=== PATIENT | female | born 1955 | race Caucasian/White ===

== ENCOUNTER 2017-12-24 19:54 | Emergency (ER) | payer OTHER ==
--- OUTSIDE RECORDS SUMMARY | 2017-12-24 19:57 | XMS REPORT | Clinical Summary ---
:1955 Author Organization [facility] Address [address] [place] [address] Phone Care Team Providers Name Role Phone Unavailable Primary Care Provider Unavailable Allergies No Known Allergies Current Medications Prescription Sig. Disp. Refills Start Date End Date Status zolpidem (AMBIEN) 10 mg tablet 08/15/2016 Active citalopram (CELEXA) 20 MG tablet 08/17/2016 Active furosemide (LASIX) 20 MG tablet 08/17/2016 Active levothyroxine (SYNTHROID, LEVOTHROID) 08/17/2016 Active 150 MCG tablet metoprolol (LOPRESSOR) 50 MG tablet 08/17/2016 Active valsartan-hydrochlorothiazide 09/30/2016 Active (DIOVAN-HCT) 320-25 mg per tablet potassium citrate (UROCIT-K) 10 mEq 08/17/2016 Active (1,080 mg) SR tablet HEMATINIC/FOLIC ACID 324 mg (106 mg 09/16/2016 Active iron)-1 mg Tab Active Problems Problem Noted Date Leukocytosis 10/31/2016 Type 2 diabetes mellitus without complication, without long-term current 10/31 use of insulin (HCC) Diverticulitis 10/30/2016 Encounters Date Type Specialty Care Team Description 10/20/2017 Emergency Emergency Medicine Candida Bosch DO after 12/23/2016 Social History Tobacco Use Types Packs/Day Years Used Date Never Smoker Sex Assigned at Date Recorded Not on file Last Filed Vital Signs Vital Sign Reading Time Taken Blood Pressure 113/59 10/20/2017 12:24 PM [employer] Pulse 75 10/20/2017 12:24 PM [employer] Temperature 37.2 C (99 F) 10/20/2017 12:24 PM [employer] Respiratory Rate 18 10/20/2017 12:24 PM [employer] Oxygen Saturation 97% 10/20/2017 12:24 PM [employer]IAN Inhaled Oxygen Concentration - - Weight 139.7 kg (308 lb) 10/20/2017 12:24 PM [employer] Height 175.3 cm (5' 9") 10/20/2017 12:24 PM [employer] Body Mass Index 45.48 10/20/2017 12:24 PM [employer]CH[employer] Plan of Treatment Not on file Results Not on fileafter 12/23/2016
--- OUTSIDE RECORDS SUMMARY | 2017-12-24 19:57 | XMS REPORT | Clinical Summary ---
:1955 Author Organization [facility] Address [address] [place] [address] Care Team Providers Name Role Phone Arthur Fong MD Primary Care Provider Allergies No Known Allergies Current Medications Prescription Sig. Disp. Refills Start End Status Date Date albuterol (PROAIR Inhale 2 puffs Active HFA,PROVENTIL every 6 (six) HFA,VENTOLIN HFA) 90 hours as needed mcg/actuation inhaler for wheezing. ALPRAZolam (XANAX) 1 Take 1 mg by Active MG tablet mouth 3 (three) times a day as needed for anxiety. citalopram (CeleXA) 20 Take 20 mg by Active MG tablet mouth every morning. diclofenac-misoprostol Take 1 tablet by Active (ARTHROTEC 75) 75-200 mouth 2 (two) mg-mcg EC tablet times a day as needed (arthritis pain). ferrous fumarate-folic Take 1 tablet by Active acid (HEMATINIC/FOLIC mouth nightly. ACID) 324 mg (106 mg iron)-1 mg tablet per tablet rivaroxaban (XARELTO) Take 20 mg by Active 20 mg tablet mouth nightly. zolpidem (AMBIEN) 10 Take 10 mg by Active mg tablet mouth nightly as needed for sleep. enoxaparin (LOVENOX) Inject 0.8 ml 2.4 mL 0 10/24/19 Active 120 mg/0.8 mL syringe subcutanouesly 18 twice daily. Take after stopping xarelto 2 days prior to surgery. Hold the night before surgery. umeclidinium-vilantero Inhale 1 puff 30 each 0 10/24/19 Active l (ANORO ELLIPTA) daily for 30 18 62.5-25 mcg/actuation days. blister with device metoprolol tartrate Take 50 mg by Active (LOPRESSOR) 50 mg mouth 2 (two) tablet times a day. LYRICA 75 mg capsule Take 75 mg by 11/25/19 Active mouth 2 (two) 18 times a day. fluocinonide 0.1 % Apply 1 11/28/19 Active cream application 18 topically 2 (two) times a day. (apply sparingly) pantoprazole Take 1 tablet (40 30 tablet 0 12/06/19 Active (PROTONIX) 40 MG EC mg total) by 18 018 tablet mouth daily for 30 days. HYDROcodone-acetaminop Take 1 tablet by 12/06/19 Active hen (NORCO) 5-325 mg mouth every 6 18 018 per tablet (six) hours as needed for moderate pain for up to 30 days. Max Daily Amount: 4 tablets colchicine 0.6 mg Take 1 tablet 60 tablet 0 12/17/19 Active tablet (0.6 mg total) by 18 018 mouth 2 (two) times a day for 30 days. hydroCHLOROthiazide Take 1 capsule 30 capsule 0 12/18/19 Active (MICROZIDE) 12.5 mg (12.5 mg total) 18 018 capsule by mouth daily for 30 days. levothyroxine Take 175 mcg by Active (SYNTHROID, LEVOXYL) mouth every 175 mcg tablet morning. furosemide (LASIX) 20 Take 20 mg by Discontinued mg tablet mouth every 018 morning. HYDROcodone-acetaminop Take 1 tablet by Discontinued hen (NORCO) 10-325 mg mouth every 4 018 per tablet (four) hours as needed for moderate pain. levothyroxine Take 150 mcg by Discontinued (SYNTHROID, LEVOXYL) mouth every 018 150 mcg tablet morning. meloxicam (MOBIC) 15 Take 15 mg by Discontinued mg tablet mouth daily. 018 valsartan-hydrochlorot Take 1 tablet by Discontinued hiazide (DIOVAN HCT) mouth every 018 320-25 mg per tablet morning. levoFLOXacin Take 1 tablet 10 tablet 0 10/25/19 (LEVAQUIN) 500 MG (500 mg total) by 18 018 tablet mouth daily for 10 days. metroNIDAZOLE (FLAGYL) Take 1 tablet 30 tablet 0 10/24/19 500 MG tablet (500 mg total) by 18 018 mouth 3 (three) times a day for 10 days. levothyroxine Take 1 tablet 30 tablet 0 10/24/19 (SYNTHROID, LEVOXYL) (175 mcg total) 18 018 175 mcg tablet by mouth every morning for 30 days. levoFLOXacin Take 1 tablet 10 tablet 0 11/19/19 (LEVAQUIN) 500 MG (500 mg total) by 18 018 tablet mouth daily for 10 days. levothyroxine Take 175 mcg by Discontinued (SYNTHROID, LEVOXYL) mouth every 018 175 mcg tablet morning. metFORMIN (GLUCOPHAGE) Take 500 mg by Discontinued 500 mg tablet mouth every 018 morning. traMADol (ULTRAM) 50 Take 50 mg by Discontinued mg tablet mouth every 6 018 (six) hours as needed for moderate pain. levoFLOXacin Take 1 tablet 5 tablet 0 12/06/19 Discontinued (LEVAQUIN) 500 MG (500 mg total) by 18 018 tablet mouth daily for 5 days. SUPREP BOWEL PREP KIT Take 2 Bottles 354 mL 0 12/09/19 Discontinued 17.5-3.13-1.6 gram (354 mL total) by 18 018 recon soln mouth once for 1 dose. Take as directed by physician predniSONE (DELTASONE) Taper, take 1 tab 5 tablet 0 12/17/19 20 mg tablet (20mg) x 3 days, 18 018 then 0.5 tab (10mg) x 3 days, then stop Active Problems Problem Noted Date Morbid obesity with BMI of 50.0-59.9, adult 12/12/2017 Acute renal failure 12/03/2017 Colovesical fistula 10/20/2017 Encounters Date Type Specialty Care Team Description 12/23/2017 Orders Only General Surgery Mateo Quinones MD 12/18/2017 Patient Outreach Zach Armstrong, PharmD 12/15/2017 Procedure Pass General Surgery 12/09/2017 Hospital Encounter General Surgery Mateo Quinones Colovesical - MD Alok fistula (Primary 12/16/2017 Dx) 12/08/2017 Orders Only General Surgery Mateo Quinones MD 12/03/2017 [facility], unspecified acute renal failure type (Primary Dx); - Medicine MD Savita Urinary tract infection with hematuria, site unspecified; 12/05/2017 George Jacob Colovesical fistula MD Smitha Mazariegos Thuyen T., MD 12/03/2017 Telephone General Surgery Shreyl Marcos COLLECTIONS AND ARCHIVES DIRECTOR-C 12/02/2017 Orders Only General Surgery Mateo Quinones MD 12/01/2017 Pre-Admit Testing Pre-Admission Testing Mateo Quinones Preop examination (Primary Dx); Appointment MD Alok Morbid obesity; Liver disease 11/18/2017 Orders Only General Surgery Sheryl Marcos COLLECTIONS AND ARCHIVES DIRECTOR-C 11/13/2017 Office Visit General Surgery Mateo Quinones Rectovaginal fistula ( Primary Dx); MD Alok Morbid obesity with BMI of 45.0-49.9, adult 11/13/2017 Orders Only General Surgery RandallguruSheryl logan COLLECTIONS AND ARCHIVES DIRECTOR-C 11/13/2017 Orders Only General Surgery RandallguruSheryl logan NP-C 11/13/2017 Orders Only General Surgery Alagugurusamy, Colovesical Sheryl fistula (Primary RENZO Mortensen-Lisa Dx) 10/22/2017 Anesthesia Event Gastroenterology Chapo Perez MD 10/22/2017 Procedure Pass Gastroenterology 10/22/2017 Surgery Gastroenterology Mateo Quinones COLONOSCOPY MD Alok 10/20/2017 Hospital Encounter General Surgery [facility] Colovesical fistula (Primary Dx); - MD Harley Idiopathic pulmonary fibrosis 10/24/2017 after 12/23/2016 Family History Patient is adopted Relation Name Status Comments Father Mother Social History Tobacco Use Types Packs/Day Years Used Date Never Smoker Smokeless Tobacco: Never Used Alcohol Use Drinks/Week oz/Week Comments No Sex Assigned at Date Recorded Not on file Last Filed Vital Signs Vital Sign Reading Time Taken Blood Pressure 140/70 12/16/2017 7:46 AM CDT Pulse 60 12/16/2017 7:46 AM CDT Temperature 35.7 C (96.2 F) 12/16/2017 7:46 AM CDT Respiratory Rate 18 12/16/2017 7:46 AM CDT Oxygen Saturation 99% 12/16/2017 7:46 AM CDT Inhaled Oxygen Concentration - - Weight 140 kg (309 lb 3.2 oz) 12/05/2017 6:00 AM CDT Height 175.3 cm (5' 9") 12/16/2017 5:28 AM CDT Body Mass Index 45.66 12/05/2017 6:00 AM CDT Plan of Treatment Date Type Specialty Care Team Description 12/31/2017 Office Visit General Surgery Mateo Quinones MD [address] [address] Health Maintenance Due Date Last Done Comments PAP SMEAR 1977 COLONOSCOPY 2006 MAMMOGRAM 2006 ZOSTER VACCINE 2016 INFLUENZA VACCINE 04/15/2018 Implants Implanted Type Area [employer] Device Expiration Model / Identifier Date Serial / Lot Catheter Cv Powerline Dlmn Al 6fr - [id number] Surgical N/A: N/A BARD ACCESS [id number] / Implanted: 12/11/2017 (Quantity not on file) Implants; SYSTEMS / Expanders; Extenders; Surgical Wires Procedures Procedure Name Priority Date/Time Associated Comments Diagnosis MI CRITICAL CARE, E/M Routine 12/03/2017 1:06 Results for this 30-74 MINUTES PM CDT procedure are in the results section. COLONOSCOPY 10/22/2017 8:00 Colovesical fistula AM CRIMINAL ANALYST ECHOCARDIOGRAM 2D Routine 10/21/2017 8:12 Results for this COMPLETE W MMODE PM CRIMINAL ANALYST procedure are in SPECTRAL COLOR DOPPLER the results (90053) section. CONSULT TO OSTOMY CARE Routine 10/21/2017 5:38 NURSE AM CRIMINAL ANALYST after 12/23/2016 Results [facility] papsmear custom order (12/18/2017)POC glucose (12/16/2017 7:47 AM) Only the most recent of30 resultswithin the time period is included. Component Value Ref Range POC glucose 112 (H) 65 - 99 mg/dL Comment: [facility] Notified RN Meter ID: [id number] Transitions Manager Rn: Mary Lou Elizabeth Specimen Performing Laboratory [facility] DEPARTMENT OF PATHOLOGY AND GENOMIC MEDICINE [address] [place] [address] Estimated GFR (12/16/2017 4:00 AM)Only the most recent of15 resultswithin the time period is included. Component Value Ref Range GFR Non Af Amer 64 mL/min/1.73 m2 GFR Af Amer 77 mL/min/1.73 m2 Comment: Chronic kidney disease: <60 mL/min/1.73m2 Kidney failure: <15 mL/min/1.73m2 The estimated GFR is calculated from the IDMS-traceable Modification of Diet in Renal Disease Equation. The accuracy of the calculation is poor when the creatinine is normal. Calculated values >90 mL/min/1.73m2 are not reported. This equation has not been validated in children (<18 years), women, the elderly (>70 years), or ethnic groups other than Caucasians and Americans. Specimen Performing Laboratory Plasma specimen [facility] DEPARTMENT OF PATHOLOGY AND GENOMIC MEDICINE [address] [place] [address] Phosphorus level (12/16/2017 4:00 AM)Only the most recent of6 resultswithin the time period is included. Component Value Ref Range Phosphorus 2.6 2.4 - 4.5 mg/dL Specimen Performing Laboratory Plasma specimen [facility] DEPARTMENT OF PATHOLOGY AND GENOMIC [address] [address] Magnesium level (12/16/2017 4:00 AM)Only the most recent of7 resultswithin the time period is included. Component Value Ref Range Magnesium 2.0 1.6 - 2.4 mg/dL Specimen Performing Laboratory Plasma specimen [facility] DEPARTMENT OF PATHOLOGY AND GENOMIC MEDICINE [address] [place] [address] Basic metabolic panel (12/16/2017 4:00 AM)Only the most recent of12 resultswithin the time period is included. Component Value Ref Range Sodium 142 135 - 148 mEq/L Potassium 4.3 3.5 - 5.0 mEq/L Chloride 106 98 - 112 mEq/L CO2 24 24 - 31 mEq/L Anion gap 12 7 - 15 mEq/L Comment: Starting from December , anion gap calculation no longer incorporates potassium. Please note the change. BUN 31 (H) 8 - 23 mg/dL Creatinine 0.9 0.5 - 0.9 mg/dL Glucose 128 (H) 65 - 99 mg/dL Calcium 8.8 8.8 - 10.2 mg/dL Specimen Performing Laboratory Plasma specimen [facility] DEPARTMENT OF PATHOLOGY AND GENOMIC MEDICINE [address] [place] [address] CBC with platelet and differential (12/16/2017 3:40 AM)Only the most recent of14 resultswithin the time period is included. Component Value Ref Range WBC 7.87 4.50 - 11.00 k/uL RBC 2.95 (L) 4.20 - 5.50 m/uL HGB 8.2 (L) 12.0 - 16.0 g/dL HCT 27.1 (L) 37.0 - 47.0 % MCV 91.9 82.0 - 100.0 fL MCH 27.8 27.0 - 34.0 pg MCHC 30.3 (L) 31.0 - 37.0 g/dL RDW - SD 50.4 37.0 - 55.0 fL MPV 10.1 8.8 - 13.2 fL Platelet count 266 150 - 400 k/uL Nucleated RBC 0.30 /100 WBC Neutrophils 69.5 (H) 39.0 - 69.0 % Lymphocytes 18.7 (L) 25.0 - 45.0 % Monocytes 10.8 (H) 0.0 - 10.0 % Eosinophils 0.3 0.0 - 5.0 % Basophils 0.1 0.0 - 1.0 % Immature granulocytes 0.6Comment: "Immature granulocytes" 0.0 - 1.0 % (promyelocytes, myelocytes, metamyelocytes) Specimen Performing Laboratory Blood [facility] DEPARTMENT OF PATHOLOGY AND [facility] MEDICINE [address] [place] [address] Uric acid level (12/14/2017 4:00 AM) Component Value Ref Range Uric acid 8.6 (H) 2.4 - 5.7 mg/dL Specimen Performing Laboratory Plasma specimen [facility] DEPARTMENT OF PATHOLOGY AND GENOMIC MEDICINE [address] [place] [address] XR Knee 3 Vw Left (12/13/2017 3:42 PM) Specimen Performing Laboratory [address] [address] Narrative EXAMINATION:XR KNEE 3 VW LEFT CLINICAL HISTORY:FOCAL TENDERNESSKNEE COMPARISON:No Prior IMPRESSION: 1.Severe tricompartmental osteoarthritis of the knee is noted with bone-on- bone contact in the medial and patellofemoral compartments. Chondrocalcinosis in the lateral compartment. No joint effusion. [facility]-[id number] Procedure Note Hm Interface, Radiology Results Incoming - 12/13/2017 8:53 PM CDT EXAMINATION: XR KNEE 3 VW LEFT CLINICAL HISTORY: FOCAL TENDERNESS KNEE COMPARISON: No Prior IMPRESSION: 1. Severe tricompartmental osteoarthritis of the knee is noted with bone-on- bone contact in the medial and patellofemoral compartments. Chondrocalcinosis in the lateral compartment. No joint effusion. [facility]-[id number] IR Tunneled Central Line Placement (12/11/2017 11:24 AM) Specimen Performing Laboratory [facility] [address] [place] [address] Narrative Performing Radiologist Harman Grier MD Assistants None. Anesthesia Type Moderate sedation was administered by the procedure nurse and monitored by the procedure physician for a total [id number] sedation time of 14 minutes. Lidocaine 1% and lidocaine 1% with epinephrine were used for local anesthetic. Indication Central venous access for TPN Procedure Placement of a tunneled right external jugular vein central catheter. Technique Written informed consent was obtained prior to the procedure. All elements of maximal sterile barrier technique were followed. The patient's right neck and upper chest were sterilely prepared and draped in the routine manner. Lidocaine 1% was used for local anesthetic. Using real-time ultrasound guidance, a 21-gauge micropuncture needle was advanced successfully into the right external jugular vein. A 0.018 inch guidewire was advanced centrally through the needle under fluoroscopy. The needle was removed and a micropuncture sheath system was then placed. Under ultrasound guidance, documentation of vessel patency, needle access with permanent recording, and reporting are performed followed by placement of a sheath in the right external jugular vein. The inner dilator and guidewire were then removed, and a 0.035 inch wire was advanced through the micropuncture sheath and successfully into the inferior vena cava. The right infraclavicular fossa was anesthetized with lidocaine 1% mixed with epinephrine. A skin incision was made, and a tunneling device was used to pass the tunneled central venous catheter from the skin entry site to the venotomy site. Attention was then returned to the venotomy site. A 6-Finnish Powerline tunneled central venous catheter was then deployed through a peel-away sheath. The catheter tip was placed at the right atrium/superior vena cava junction under fluoroscopic guidance. All ports were tested and demonstrate adequate flow. The catheter was secured to the skin using 3-0 silk suture. The small venotomy incision was closed with Dermabond. The patient tolerated the procedure well. Radiation Dose Ka,r=17 mGy . Complications None. Specimens Removed None. Estimated Blood Loss Less than 2 mL. Blood/Blood Products Administered None. Grafts/Implants As described in the above report. Impression: Successful fluoroscopic-guided placement of a 6-Finnish Powerline tunneled central venous catheter via the right external jugular vein. The catheter tip lies at the right atrium/superior vena cava junction and is ready for use. [facility]-[id number] Procedure Note [facility], Radiology Results Incoming - 12/11/2017 11:34 AM CDT Performing Radiologist Harman Grier MD Assistants None. Anesthesia Type Moderate sedation was administered by the procedure nurse and monitored by the procedure physician for a total tzze-ux-[id number] sedation time of 14 minutes. Lidocaine 1% and lidocaine 1% with epinephrine were used for local anesthetic. Indication Central venous access for TPN Procedure Placement of a tunneled right external jugular vein central catheter. Technique Written informed consent was obtained prior to the procedure. All elements of maximal sterile barrier technique were followed. The patient's right neck and upper chest were sterilely prepared and draped in the routine manner. Lidocaine 1% was used for local anesthetic. Using real-time ultrasound guidance, a 21-gauge micropuncture needle was advanced successfully into the right external jugular vein. A 0.018 inch guidewire was advanced centrally through the needle under fluoroscopy. The needle was removed and a micropuncture sheath system was then placed. Under ultrasound guidance, documentation of vessel patency, needle access with permanent recording, and reporting are performed followed by placement of a sheath in the right external jugular vein. The inner dilator and guidewire were then removed, and a 0.035 inch wire was advanced through the micropuncture sheath and successfully into the inferior vena cava. The right infraclavicular fossa was anesthetized with lidocaine 1% mixed with epinephrine. A skin incision was made, and a tunneling device was used to pass the tunneled central venous catheter from the skin entry site to the venotomy site. Attention was then returned to the venotomy site. A 6-Finnish Powerline tunneled central venous catheter was then deployed through a peel-away sheath. The catheter tip was placed at the right atrium/superior vena cava junction under fluoroscopic guidance. All ports were tested and demonstrate adequate flow. The catheter was secured to the skin using 3-0 silk suture. The small venotomy incision was closed with Dermabond. The patient tolerated the procedure well. Radiation Dose Ka,r=17 mGy . Complications None. Specimens Removed None. Estimated Blood Loss Less than 2 mL. Blood/Blood Products Administered None. Grafts/Implants As described in the above report. Impression: Successful fluoroscopic-guided placement of a 6-Finnish Powerline tunneled central venous catheter via the right external jugular vein. The catheter tip lies at the right atrium/superior vena cava junction and is ready for use. [facility]-[id number] Type and screen (12/10/2017 3:42 AM)Only the most recent of2 resultswithin the time period is included. Component Value Ref Range ABO grouping B Rh type POS Antibody screen (gel) NEG Specimen Performing Laboratory Blood [facility] DEPARTMENT OF PATHOLOGY AND [facility] MEDICINE [address] [place] [address] Partial thromboplastin time, activated (12/09/2017 5:40 PM)Only the most recent of7 resultswithin the time period is included. Component Value Ref Range PTT 30.4 23.0 - 36.0 sec Comment: PTT therapeutic range for unfractionated heparin is 61.0-112.0 seconds which corresponds to Anti-Xa 0.3-0.7 U/ml. Specimen Performing Laboratory Blood [facility] DEPARTMENT OF PATHOLOGY AND GENOMIC MEDICINE [address] [place] [address] Prothrombin time with INR (12/09/2017 5:40 PM)Only the most recent of6 resultswithin the time period is included. Component Value Ref Range Prothrombin time 14.9 12.0 - 15.0 sec INR 1.2 Comment: The International Normalized Ratio (INR) is a therapeutic monitoring tool for patients who are stable on oral anticoagulant therapy. An INR of 2.0-3.0 is suggested for deep vein thrombosis/pulmonary embolism. Specimen Performing Laboratory Blood [facility] DEPARTMENT OF PATHOLOGY AND [facility] MEDICINE [address] [place] [address] Ionized calcium (12/09/2017 5:40 PM)Only the most recent of2 resultswithin the time period is included. Component Value Ref Range pH 7.49 Ionized calcium 1.10 (L) 1.11 - 1.32 mmol/L Specimen Performing Laboratory Plasma specimen [facility] DEPARTMENT OF PATHOLOGY AND [address] [address] Total iron binding capacity (12/05/2017 5:15 AM) Component Value Ref Range Iron level 42 37 - 145 ug/dL Iron binding capacity 228 200 - 400 ug/dL % Saturation 18.4 15.0 - 38.0 % Specimen Performing Laboratory Plasma specimen [facility] DEPARTMENT PATHOLOGY [address] [address] Vitamin D 25 hydroxy level (12/05/2017 5:15 AM) Component Value Ref Range Vitamin D, 25-hydroxy 18.6 (L) 30.0 - 150.0 ng/mL Comment: This assay reports the sum of 25-hydroxy vitamin D3 and 25-hydroxy vitamin D2. Reference range: 0-17 years: Deficiency: less than 20ng/mL Optimum level: greater than or equal to 20 ng/mL. 18 years and older: Deficiency: less than 20ng/mL Insufficiency: 20-29 ng/mL Optimum Level: 30-80 ng/mL The assay reportable range is 3.4155.9 ng/mL. Levels higher than 150 ng/mL may be associated with toxicity. If toxicity is clinically suspected and the reported result is >155.9 ng/mL,contact lab for alternative methods to obtain a definitivelevel. If separate quantitation of 25-hydroxy vitamin D3 and 25-hydroxy vitamin D2 is needed, please contact lab for alternative methods. Specimen Performing Laboratory Blood [facility] DEPARTMENT OF PATHOLOGY [address] [address] Parathyroid hormone (12/05/2017 5:15 AM) Component Value Ref Range PTH 121 (H) 15 - 65 pg/mL Specimen Performing Laboratory Blood [facility] DEPARTMENT OF PATHOLOGY AND [address] [address] Ferritin level (12/05/2017 5:15 AM) Component Value Ref Range Ferritin level 51 13 - 150 ng/mL Specimen Performing Laboratory Plasma specimen [facility] DEPARTMENT OF PATHOLOGY [address] [address] Hepatic function panel (12/05/2017 5:15 AM)Only the most recent of2 resultswithin the time period is included. Component Value Ref Range Albumin 2.8 (L) 3.5 - 5.0 g/dL Total bilirubin <0.2 0.0 - 1.2 mg/dL Bilirubin direct <0.2 0.0 - 0.3 mg/dL Alkaline phosphatase 62 35 - 104 U/L Protein 7.4 6.3 - 8.3 g/dL Comment: 4.6-7.0 g/dL 1 week 4.4-7.6 g/dL 7 months-1year5.1-7.3 g/dL 1-2 years5.6-7.5 g/dL >3 years6.0-8.0 g/dL 18-150 6.3-8.3 g/dL ALT 9 5 - 50 U/L AST 19 10 - 35 U/L Specimen Performing Laboratory Plasma specimen [facility] DEPARTMENT OF PATHOLOGY AND [facility] MEDICINE [address] [place] [address] Gastrointestinal panel (12/04/2017 10:00 AM)Only the most recent of2 resultswithin the time period is included. Component Value Ref Range Gastrointestinal panel Negative for all pathogens tested: Negative for Salmonella Negative for Campylobacter Negative for Diarrheagenic E coli/Shigella Negative for Shiga-like toxin-producing E coli Negative for Plesiomonas shigelloides Negative for Yersinia enterocolitica Negative for Vibrio species Negative for Clostridium difficile (Toxin A/B) Negative for Cryptosporidium Negative for Giardia lamblia Negative for Cyclospora cayeteanensis Negative for Entamoeba histolytica Negative for Adenovirus F 40/41 Negative for Astrovirus Negative for Norovirus GI/GII Negative for Rotavirus A Negative for Sapovirus Negative for Clostridium difficile toxin Negative for E coli 0157 This real-time PCR assay detects the presence of nucleic acids (RNA or DNA) for the gastrointestinal pathogens listed. A result of "Not-detected" does not exclude the possibility of the presence of one or more pathogens at concentrations less than the detectable limits of the assay. Comment: Specimen Information Specimen Source: Stool Specimen Site: Nonpreserved Specimen Performing Laboratory Stool - Nonpreserved [facility] OF PATHOLOGY AND [address] [address] Troponin (12/04/2017 6:38 AM) Component Value Ref Range Troponin <0.30 0.00 - 0.30 ng/mL Comment: 0.30 - 1.49 ng/mlMay indicate increased risk of acute coronary syndrome. >=1.5 ng/mlConsistent with acute myocardial infarction. The diagnostic value of a single normal or non-diagnostic result is questionable.Serial samples at 2-6 hour intervals are required to rule out acute myocardial injury. Specimen Performing Laboratory Plasma specimen [facility] DEPARTMENT OF PATHOLOGY AND [facility] MEDICINE [address] [place] [id number] Thyroid stimulating hormone (12/04/2017 6:38 AM)Only the most recent of2 resultswithin the time period is included. Component Value Ref Range TSH 5.91 (H) 0.27 - 4.20 uIU/mL Specimen Performing Laboratory Plasma specimen [facility] DEPARTMENT OF PATHOLOGY AND [facility] MEDICINE [address] [place] [address] T4, free (12/04/2017 6:38 AM) Component Value Ref Range T4, free 1.2 0.9 - 1.7 ng/dL Specimen Performing Laboratory Plasma specimen [facility] DEPARTMENT OF PATHOLOGY AND [address] [address] Lipid panel (12/04/2017 6:38 AM)Only the most recent of2 resultswithin the time period is included. Component Value Ref Range Cholesterol 120 <200 mg/dL Triglycerides 251 (H) <150 mg/dL HDL cholesterol 30 (L) >40 mg/dL LDL cholesterol 51Comment: Result obtained by direct LDL <100 mg/dL measurement Lipid panel interpretation SeeBelow Comment: Total Cholesterol (mg/dL) <200 Desirable [id number] >=240High Triglycerides (mg/dL) <150 Normal [id number]-[id number] 200-499High >=500Very high HDL Cholesterol (mg/dL) <40Low (male) <40Low (female) LDL Cholesterol (mg/dL) <100 Optimal 100-129Near or above optimal 238-129Npzkmjtqyl-[id number] 160-189High >=190Very high Risk Catergories that modify LDL goals. Risk CatergoriesLDL goal (mg/dL) CHD and CHD risk equivalent<100 (10-year risk >20%) Multiple (2+) risk factors <130 (10-year risk=<20%) 0-1 risk factors <160 (<10-year risk) Defining levels of lipids in metabolic syndrome Triglycerides>=150 mg/dL HDL Cholesterol Men<40 mg/dL Women<40 mg/dL Non-HDL cholesterol is a second target for therapy in persons with high triglycerides (>=200 mg/dL) Specimen Performing Laboratory Plasma specimen [facility] DEPARTMENT OF PATHOLOGY AND [facility]ICINE [address] [place] [address] Comprehensive metabolic panel (12/04/2017 6:38 AM)Only the most recent of3 resultswithin the time period is included. Component Value Ref Range Sodium 141 135 - 148 mEq/L Potassium 4.2 3.5 - 5.0 mEq/L Chloride 105 98 - 112 mEq/L CO2 21 (L) 24 - 31 mEq/L Anion gap 15 7 - 15 mEq/L Comment: Starting from December , anion gap calculation no longer incorporates potassium. Please note the change. BUN 50 (H) 8 - 23 mg/dL Creatinine 1.7 (H) 0.5 - 0.9 mg/dL Glucose 93 65 - 99 mg/dL Calcium 8.9 8.8 - 10.2 mg/dL Protein 7.1 6.3 - 8.3 g/dL Comment: [place] 4.6-7.0 g/dL 1 week 4.4-7.6 g/dL 7 months-1year5.1-7.3 g/dL 1-2 years5.6-7.5 g/dL >3 years6.0-8.0 g/dL 18-150 6.3-8.3 g/dL Albumin 2.8 (L) 3.5 - 5.0 g/dL A/G ratio 0.7 0.7 - 3.8 Alkaline phosphatase 72 35 - 104 U/L AST 15 10 - 35 U/L ALT 9 5 - 50 U/L Total bilirubin <0.2 0.0 - 1.2 mg/dL Specimen Performing Laboratory Plasma specimen [facility] DEPARTMENT OF PATHOLOGY AND [facility]ICINE [address] [place] [address] Renal Stone Protocol (12/03/2017 8:15 PM) Specimen Performing Laboratory [address] RENAL STONE PROTOCOL CLINICAL INDICATION:acute renal failure TECHNIQUE: Multidetector CT of the abdomen and pelvis was performed without intravenous administration of iodinated contrast with multiplanar reformats. CT scans are performed using radiation dose reduction techniques (iterative reconstruction and/or automated exposure control). Technical factors are evaluated and adjusted to ensure appropriate moderation of exposure. Automated dose management technology is applied to adjust radiation exposure while achieving a diagnostic quality image. COMPARISON:CT 10/23/2017. FINDINGS: Evaluation of abdominopelvic contents limited due to lack of IV contrast. Lung bases:Basilar scarring greater on right. Nonspecific basilar groundglass opacities. Liver:Enlarged measuring 22.9 cm in craniocaudal dimension. Mild contour irregularity representing chronic liver disease. Gallbladder and biliary:Normal. Pancreas:Mildly atrophic with fatty replacement. Spleen: Enlarged measuring up to 14.0 cm. Gastrointestinal:Small hiatal hernia. Sigmoid diverticulosis. Other scattered colonic diverticula. At the right pelvis, there is an apparent tract abutting the sigmoid colon. Interval decreased inflammatory change compared to prior study. Duodenal diverticulum. Large and small bowel are normal in caliber. Appendix is not visualized. No focal inflammatory changes within the right lower quadrant of the abdomen. Adrenals:Normal. Kidneys and ureters: Moderate bilateral renal cortical thinning greater on left. Punctate right renal calculi. Other linear calcifications in the right kidney, likely dystrophic. Large calculus in the left renal pelvis measuring 24 x 9 mm. Other smaller calculi within left inferior renal calyces. No significant hydronephrosis. Urinary bladder: Moderate gas in the nondependent urinary bladder. Lymph nodes: Right iliac lymph nodes measure up to 1.1 cm short axis, nonspecific. Peritoneum:No ascites or free air. Vascular:Mild atherosclerotic changes of the abdominal aorta and major branch vessels. Evaluation of vessel lumens is limited due to lack of IV contrast. Reproductive organs:Uterus is atrophic/not well visualized. Abdominal wall: Anterior abdominal wall subcutaneous soft tissue nodules likely related to injections. Fat-containing umbilical hernia. Bones:Diffuse osteopenia. Moderate degenerative changes. IMPRESSION: 1. Bilateral nephrolithiasis with large calculus in the left renal pelvis. No significant hydronephrosis. 2. Moderate gas in the urinary bladder with tract in the right pelvis possibly communicating with sigmoid colon, suspicious for colovesical fistula, similar to prior. Associated inflammatory changes have decreased compared to prior CT of 10/23/2017. 3. Hepatosplenomegaly. Chronic liver disease. [facility]-[id number] Procedure Note [facility], Radiology Results Incoming - 12/03/2017 8:[address] RENAL STONE PROTOCOL CLINICAL INDICATION: acute renal failure TECHNIQUE: Multidetector CT of the abdomen and pelvis was performed without intravenous administration of iodinated contrast with multiplanar reformats. CT scans are performed using radiation dose reduction techniques (iterative reconstruction and/or automated exposure control). Technical factors are evaluated and adjusted to ensure appropriate moderation of exposure. Automated dose management technology is applied to adjust radiation exposure while achieving a diagnostic quality image. COMPARISON: CT 10/23/2017. FINDINGS: Evaluation of abdominopelvic contents limited due to lack of IV contrast. Lung bases: Basilar scarring greater on right. Nonspecific basilar groundglass opacities. Liver: Enlarged measuring 22.9 cm in craniocaudal dimension. Mild contour irregularity representing chronic liver disease. Gallbladder and biliary: Normal. Pancreas: Mildly atrophic with fatty replacement. Spleen: Enlarged measuring up to 14.0 cm. Gastrointestinal: Small hiatal hernia. Sigmoid diverticulosis. Other scattered colonic diverticula. At the right pelvis, there is an apparent tract abutting the sigmoid colon. Interval decreased inflammatory change compared to prior study. Duodenal diverticulum. Large and small bowel are normal in caliber. Appendix is not visualized. No focal inflammatory changes within the right lower quadrant of the abdomen. Adrenals: Normal. Kidneys and ureters: Moderate bilateral renal cortical thinning greater on left. Punctate right renal calculi. Other linear calcifications in the right kidney, likely dystrophic. Large calculus in the left renal pelvis measuring 24 x 9 mm. Other smaller calculi within left inferior renal calyces. No significant hydronephrosis. Urinary bladder: Moderate gas in the nondependent urinary bladder. Lymph nodes: Right iliac lymph nodes measure up to 1.1 cm short axis, nonspecific. Peritoneum: No ascites or free air. Vascular: Mild atherosclerotic changes of the abdominal aorta and major branch vessels. Evaluation of vessel lumens is limited due to lack of IV contrast. Reproductive organs: Uterus is atrophic/not well visualized. Abdominal wall: Anterior abdominal wall subcutaneous soft tissue nodules likely related to injections. Fat-containing umbilical hernia. Bones: Diffuse osteopenia. Moderate degenerative changes. IMPRESSION: 1. Bilateral nephrolithiasis with large calculus in the left renal pelvis. No significant hydronephrosis. 2. Moderate gas in the urinary bladder with tract in the right pelvis possibly communicating with sigmoid colon, suspicious for colovesical fistula, similar to prior. Associated inflammatory changes have decreased compared to prior CT of 10/23/2017. 3. Hepatosplenomegaly. Chronic liver disease. [facility]-[id number] C difficile toxin (12/03/2017 4:51 PM)Only the most recent of2 resultswithin the time period is included. Component Value Ref Range Clostridium difficile toxin No Clostridium difficle toxin present Comment: Specimen Information Specimen Source: Stool Specimen Site: Nonpreserved Specimen Performing Laboratory Stool - Nonpreserved [facility] DEPARTMENT OF PATHOLOGY AND GENOMIC MEDICINE [address] [place] [address] US Renal (12/03/2017 3:32 PM)Only the most recent of2 resultswithin the time period is included. Specimen Performing Laboratory [facility] [address] [place] [address] Narrative EXAMINATION:US RENAL CLINICAL HISTORY:HYDRONEPHROSIS COMPARISON:None. FINDINGS: The kidneys are normal in size and echogenicity. An approximately 2.1 x 0.8 cm cortical calculus is again seen within the midpole of the right kidney. An approximately 2.6 x 0.8 cm calculus is seen within the left renal pelvis. Mild left pelviectasis is seen.. The right kidney measures 11.6 x 5.8 x 5.5 cm with cortical thickness of 1.6 cm.. The left kidney measures 11.6 x 5.9 x 4.9 cm with cortical thickness of 1.2 cm.. The urinary bladder is not seen due to decompressed by chest post void.. IMPRESSION: Bilateral nephrolithiasis with mild left pelviectasis.. [facility]-[id number] Procedure Note Interface, Radiology Results Incoming - 12/03/2017 4:11 PM CDT EXAMINATION: US RENAL CLINICAL HISTORY: HYDRONEPHROSIS COMPARISON: None. FINDINGS: The kidneys are normal in size and echogenicity. An approximately 2.1 x 0.8 cm cortical calculus is again seen within the midpole of the right kidney. An approximately 2.6 x 0.8 cm calculus is seen within the left renal pelvis. Mild left pelviectasis is seen.. The right kidney measures 11.6 x 5.8 x 5.5 cm with cortical thickness of 1.6 cm.. The left kidney measures 11.6 x 5.9 x 4.9 cm with cortical thickness of 1.2 cm.. The urinary bladder is not seen due to decompressed by chest post void.. IMPRESSION: Bilateral nephrolithiasis with mild left pelviectasis.. [facility]-[id number] Urinalysis screen and microscopy, with reflex to culture (12/03/2017 2:10 PM) Only the most recent of2 resultswithin the time period is included. Component Value Ref Range Specimen site Clean catch Color, UA Brown Appearance, UA Turbid Specific gravity, UA 1.019 1.001 - 1.035 pH, UA 6.0 5.0 - 8.5 Protein, UA 2+ (A) Negative Glucose, UA Negative Negative Ketones, UA Trace (A) Negative Bilirubin, UA Negative Negative Blood, UA Small (A) Negative Nitrite, UA Negative Negative Urobilinogen, UA <2.0 <2.0 Leukocyte esterase, UA Small (A) Negative WBC, UA SEE COMMENTComment: Footnote--------- 0 - 4 /HPF RBC, UA SEE COMMENT 0 - 2 /HPF Comment: Footnote--------- UNABLE TO DO MICROSCOPIC PORTION OF THE TEST DUE TO POSSIBLE CONTAMINATION. ONIEL COTTER/AMENA NOTIFIED Bacteria, UA SEE COMMENTComment: Footnote--------- None seen WBC clumps, UA SEE COMMENTComment: Footnote--------- Yeast, UA SEE COMMENTComment: Footnote--------- Yeast with pseudohyphae, UA SEE COMMENTComment: Footnote--------- Specimen Performing Laboratory Urine [facility] DEPARTMENT OF PATHOLOGY AND GENOMIC MEDICINE [address] [place] [id number] Gram stain (12/03/2017 2:10 PM)Only the most recent of2 resultswithin the time period is included. Component Value Ref Range Gram stain result Few WBC's Many Gram negative rods Many Gram positive rods Many Gram positive cocci in pairs Comment: Specimen Information Specimen Source: Urine Specimen Site: Clean catch Specimen Performing Laboratory Urine [facility] DEPARTMENT OF PATHOLOGY AND GENOMIC MEDICINE [address] [place] [id number] Urine culture (12/03/2017 2:10 PM)Only the most recent of3 resultswithin the time period is included. Component Value Ref Range Urine culture isolate Mixed Gram positive medina >10-5 cfu/ml (A) Comment: Specimen Information Specimen Source: Urine Specimen Site: Clean catch Specimen Performing Laboratory Urine [facility] DEPARTMENT OF PATHOLOGY AND GENOMIC MEDICINE [address] [place] [id number] Manual differential (12/03/2017 2:00 PM) Component Value Ref Range Manual differential PERFORMED Neutrophils 66.0 39.0 - 69.0 % Lymphocytes 19.0 (L) 25.0 - 45.0 % Monocytes 8.0 0.0 - 10.0 % Eosinophils 4.0 0.0 - 5.0 % Basophils 0.0 0.0 - 1.0 % Metamyelocytes 0 % Myelocytes 3 % Promyelocytes 0 % Reactive lymphocytes Few Platelet slide review O[place] adequate Anisocytosis Moderate Polychromasia Moderate Spherocytes Occasional Ovalocytes Moderate Enlarged platelets Moderate (A) Specimen Performing Laboratory [facility] DEPARTMENT OF PATHOLOGY AND GENOMIC MEDICINE [address] [place] [address] CRITICAL CARE (12/03/2017 1:06 PM) Narrative Annette May MD 12/05/20178:21 AM Critical Care Performed by: ANNETTE MAY Authorized by: ANNETTE MAY Critical care provider statement: Critical care time (minutes):35 Critical care time was exclusive of:Separately billable procedures and treating other patients and teaching time Critical care was necessary to treat or prevent imminent or life-threatening deterioration of the following conditions:Renal failure and metabolic crisis Critical care was time spent personally by me on the following activities:Development of treatment plan with patient or surrogate, discussions with consultants, evaluation of patient's response to treatment, examination of patient, interpretation of cardiac output measurements, obtaining history from patient or surrogate, ordering and performing treatments and interventions, ordering and review of laboratory studies, ordering and review of radiographic studies, pulse oximetry, re-evaluation of patient's condition and review of old charts Jonathan 'yes' if you are taking over critical care for this patient from another provider.: no ECG Pre/Post Op (12/01/2017 1:07 PM) Component Value Ref Range Ventricular rate 73 Atrial rate 73 MI interval 152 QRSD interval 84 QT interval 400 QTC interval 440 P axis 1 46 QRS axis 1 21 T wave axis 35 EKG impression Normal sinus rhythm-Normal ECG- Specimen Performing Laboratory [facility] MUSE [address] [place] [address] CBC hemogram (12/01/2017 1:06 PM) Component Value Ref Range WBC 7.23 4.50 - 11.00 k/uL RBC 3.03 (L) 4.20 - 5.50 m/uL HGB 8.6 (L) 12.0 - 16.0 g/dL HCT 28.6 (L) 37.0 - 47.0 % MCV 94.4 82.0 - 100.0 fL MCH 28.4 27.0 - 34.0 pg MCHC 30.1 (L) 31.0 - 37.0 g/dL RDW - SD 51.7 37.0 - 55.0 fL MPV 9.0 8.8 - 13.2 fL Platelet count 261 150 - 400 k/uL Nucleated RBC 0.00 /100 WBC Specimen Performing Laboratory Blood [facility] DEPARTMENT OF PATHOLOGY AND GENOMIC MEDICINE [address] [place] [address] Hemoglobin A1c (12/01/2017 1:06 PM) Component Value Ref Range Hemoglobin A1C 5.0 4.0 - 5.6 % Comment: HbA1c cutoffs for diagnosing diabetes: 4.0% - 5.6%=normal 5.7% - 6.4%=increased risk for diabetes (prediabetes) >=6.5%=diabetes Goals for glycemic control (ADA 2016) < 7.0%Target for non adults with diabetes. More or less stringent targets may be appropriate for individual patients. <7.5% Target for Children and adolescents with type 1 diabetes. Specimen Performing Laboratory Blood [facility] DEPARTMENT OF PATHOLOGY AND GENOMIC MEDICINE [address] [place] [address] URINALYSIS, COMPLETE, WITH REFLEX TO CULTURE (11/13/2017 1:21 PM) Component Value Ref Range Color, UA BROWN (A) YELLOW Appearance TURBID (A) CLEAR WBC, UA > OR=60 (A) < OR=5 /HPF RBC, UA 3-10 (A) < OR=2 /HPF Squamous epithelial cells, UA 0-5 < OR=5 /HPF Bacteria, UA MANY (A) NONE SEEN /HPF Triple phosphate crystals, UA FEW NONE OR FEW /HPF Amorphous crystals FEW NONE OR FEW /HPF Hyaline casts, UA NONE SEEN NONE SEEN /LPF Comment FEW MUCOUS THREADS Note: Comment: This urine was analyzed for the presence of WBC, RBC, bacteria, casts, and other formed elements. Only those elements seen were reported. Specific gravity, urine TNP Comment: TEST(S) NOT PERFORMED: SPECIFIC GRAVITY PH GLUCOSE BILIRUBIN KETONES OCCULT BLOOD PROTEIN NITRITE LEUKOCYTE ESTERASE * Test not performed.* * Unable to perform testing* * due to color interference. * Reflex CULTURE INDICATED - RESULTS TO FOLLOW Specimen Performing Laboratory [facility] Narrative FASTING: UNKNOWN Anti Xa, low molecular weight (10/23/2017 9:00 AM) Component Value Ref Range Heparin name Lovenox Anti Xa, low molecular weight 0.71 0.60 - 1.00 U/mL Comment: Specimen must be drawn at least 4 hours post dose following a minimum of 3 doses. Therapeutic Range:0.60 - 1.00 U/mL Specimen Performing Laboratory Blood [facility] DEPARTMENT OF PATHOLOGY AND GENOMIC MEDICINE [address] [place] [address] Abdomen Pelvis W Contrast (10/23/2017 5:53 AM) Specimen Performing Laboratory [facility] [address] [place] [address] Narrative EXAMINATION:CT ABDOMEN PELVIS W CONTRAST CLINICAL HISTORY:ABDOMINAL PAIN, DIARRHEA TECHNIQUE: Multiple axial images of the abdomen and pelvis were obtained following intravenous administration of iodinated contrast. Sagittal and coronal computerized reformatted images were also obtained. Scan was performed using radiation dose reduction techniques. COMPARISON:December 20, 2015 FINDINGS: Lung bases demonstrate right greater than left scarring/fibrosis and a few tiny nodules which are likely postinflammatory. Liver demonstrates lobulated contour with mild enlargement. The spleen is upper normal in size. Nonspecific mild distention of the gallbladder and slight biliary dilatation. Pancreas unremarkable. Small periampullary duodenal diverticulum. Staghorn calculi in the left kidney lower pole extending to the renal pelvis. Renal pelvic portion measures approximately 2 x 1.3 cm. Tiny stone is also seen in the right lower pole along with some parenchymal calcifications. Kidneys demonstrate cortical atrophy. No hydronephrosis or perinephric stranding. There is some stranding in the right adnexal region adjacent to sigmoid colon. Diverticulosis is seen in the sigmoid. There are tiny foci of likely extraluminal gas in the right adnexa (series 2 image 117). There is also a 2.9 cm pocket of gas overlying the dome of the bladder which is thickened. Gas is also present in the bladder lumen. No evidence of bowel obstruction. No free fluid. A few prominent periportal lymph nodes are nonspecific. IMPRESSION: 1.Right adnexal abnormality abutting sigmoid colon with some extraluminal gas as well as bladder thickening with overlying pocket of gas, presumably sequelae of prior diverticulitis. Stranding is relatively mild, suggesting relatively little minor acute inflammatory component. If there has been no recent measurement patient of the bladder, colovesical fistula should be suspected. 2.No drainable fluid collection. 3.Other incidental findings including nephrolithiasis and irregular liver possibly reflecting chronic liver disease. [facility]-[id number] Procedure Note [facility], Radiology Results Incoming - 10/23/2017 6:10 AM CRIMINAL ANALYST EXAMINATION: CT ABDOMEN PELVIS W CONTRAST CLINICAL HISTORY: ABDOMINAL PAIN, DIARRHEA TECHNIQUE: Multiple axial images of the abdomen and pelvis were obtained following intravenous administration of iodinated contrast. Sagittal and coronal computerized reformatted images were also obtained. Scan was performed using radiation dose reduction techniques. COMPARISON: December 20, 2015 FINDINGS: Lung bases demonstrate right greater than left scarring/fibrosis and a few tiny nodules which are likely postinflammatory. Liver demonstrates lobulated contour with mild enlargement. The spleen is upper normal in size. Nonspecific mild distention of the gallbladder and slight biliary dilatation. Pancreas unremarkable. Small periampullary duodenal diverticulum. Staghorn calculi in the left kidney lower pole extending to the renal pelvis. Renal pelvic portion measures approximately 2 x 1.3 cm. Tiny stone is also seen in the right lower pole along with some parenchymal calcifications. Kidneys demonstrate cortical atrophy. No hydronephrosis or perinephric stranding. There is some stranding in the right adnexal region adjacent to sigmoid colon. Diverticulosis is seen in the sigmoid. There are tiny foci of likely extraluminal gas in the right adnexa (series 2 image 117). There is also a 2.9 cm pocket of gas overlying the dome of the bladder which is thickened. Gas is also present in the bladder lumen. No evidence of bowel obstruction. No free fluid. A few prominent periportal lymph nodes are nonspecific. IMPRESSION: 1. Right adnexal abnormality abutting sigmoid colon with some extraluminal gas as well as bladder thickening with overlying pocket of gas, presumably sequelae of prior diverticulitis. Stranding is relatively mild, suggesting relatively little minor acute inflammatory component. If there has been no recent measurement patient of the bladder, colovesical fistula should be suspected. 2. No drainable fluid collection. 3. Other incidental findings including nephrolithiasis and irregular liver possibly reflecting chronic liver disease. [facility]-[id number] Echocardiogram complete w contrast and 3D if needed (10/21/2017 8:12 PM) Specimen Performing Laboratory [facility] [address] [id number] Narrative Echocardiography Report [id number]Name:Susan WADE.ID:[id number] .Date: 10/21/2017Refer.MD:ELIZABETH JACOB MD Exam Time: 6:49:00 PMStudy Type:Routine Echo Height:69inWeight:308lb BSA: 2.48 m2 DOBAge:1955,62Y Sex: FEMALEBP:126/69 HR:103 bpm Sonogrphr: FIOR Kingsley Pat. Stat.:Inpatient Room:[address] Study Status:Final Echo Event ID:[id number] Order ID:[id number] Reason for Study:Perioperative Eval - Routine perioperative eval of cardiac structure and function prior to noncardiac solid organ transplantation Procedures:2D Echo, Colorflow Doppler, Intravenous Optison Contrast, Portable Race:C SUMMARY: LV size is normal. LV EF is normal. Overall wall motion is normal. FINDINGS: LV: LV size is normal. LV EF is normal. Overall wall motion is normal.Estimated EF is 55-59%. RV: RV size is normal. RV systolic function is normal. LA: LA volume is mildly enlarged. RA: RA size is normal. AO: Aortic root diameter is normal. CHATA: No pericardial effusion. AV: No structural AV abnormalities noted. MV: Mild mitral annular calcification. PV: No structural PV abnormalities noted. TV: No structural TV abnormalities noted. Mild tricuspid regurgitation [place]: LV relaxation is impaired. LV filling pressure is normal. Other:Estimated PA systolic pressure is 35 mmHg, assuming a mean RAPof 5 mmHg. MEASUREMENTS: 2D Parasternal Long [place] LVOT 1.9 cmLA Ds3.4 cm LVIDd4.6 cmIndex 1.9 cm/m Ao An2.1 cm LVIDs2.6 cmAo Rtd 2.9 cm Index1.2 cm/m LV%fs 43.5 % LV Fepi185.5 g(87-129) IVSd 0.8 cmLVM Index 43.8 g/m2 LVPWd0.7 cmRWT0.3 LA Sng Plane LA Area 25.3 cm2(8.8-23.4) LA Vol97.9 ml Index39.5 ml/m LA LngAx 5.3 cm Signed 10/22/2017 08:44 AM Yves Zaragoza MD Procedure Note Interface, Radiology Results In - 10/22/2017 8:44 AM [facility] Echocardiography Report [id number] [address], [place] [address] Pat.Name: ROSIO WADE Arelis.ID: [id number] .Date: 10/21/2017 Refer.MD: ELIZABETH JACOB MD Exam Time: 6:49:00 PM Study Type:Routine Echo Height: 69in Weight: 308lb BSA: 2.48 m2 Age: 12 1955,62Y Sex: FEMALE BP: 126/69 HR: 103 bpm Sonogrphr: FIOR Kingsley Pat. Stat.:Inpatient Room: [place] [address] A Study Status:Final Echo Event ID:[id number] Order ID: [id number] Reason for Study:Perioperative Eval - Routine perioperative eval of cardiac structure and function prior to noncardiac solid organ transplantation Procedures:2D Echo, Colorflow Doppler, Intravenous Optison Contrast, Portable Race: C SUMMARY: LV size is normal. LV EF is normal. Overall wall motion is normal. FINDINGS: LV: LV size is normal. LV EF is normal. Overall wall motion is normal. Estimated EF is 55-59%. RV: RV size is normal. RV systolic function is normal. LA: LA volume is mildly enlarged. RA: RA size is normal. AO: Aortic root diameter is normal. CHATA: No pericardial effusion. AV: No structural AV abnormalities noted. MV: Mild mitral annular calcification. PV: No structural PV abnormalities noted. TV: No structural TV abnormalities noted. Mild tricuspid regurgitation [place]: LV relaxation is impaired. LV filling pressure is normal. Other: Estimated PA systolic pressure is 35 mmHg, assuming a mean RAP of 5 mmHg. MEASUREMENTS: 2D Parasternal Long [place] LVOT 1.9 cm LA Ds 3.4 cm LVIDd 4.6 cm Index 1.9 cm/m Ao An 2.1 cm LVIDs 2.6 cm Ao Rtd 2.9 cm Index 1.2 cm/m LV%fs 43.5 % LV Mass 108.5 g (87-129) IVSd 0.8 cm LVM Index 43.8 g/m2 LVPWd 0.7 cm RWT 0.3 LA Sng Plane LA Area 25.3 cm2 (8.8-23.4) LA Vol 97.9 ml Index 39.5 ml/m LA LngAx 5.3 cm Signed 10/22/2017 08:44 AM Yves Zaragoza MD XR Chest 1 Vw Portable (10/21/2017 1:33 PM) Specimen Performing [facility] [address] [place] [address] Narrative EXAMINATION:XR CHEST 1 VW PORTABLE CLINICAL HISTORY:SHORTNESS OF BREATH COMPARISON:10/20/2017 IMPRESSION: 1.Interstitial opacities and bronchiectasis are present in the right lungs and to a lesser extent the medial left lung consistent with chronic interstitial lung disease and pulmonary fibrosis. 2.The heart size is within normal limits. The heart is slightly shifted to the right. The aorta is minimally atherosclerotic. 3.There is no evidence pulmonary edema. There are no pleural effusions. 4.Regional skeletal structures are within normal limits. [facility]-[id number] Procedure Note Interface, Radiology Results Incoming - 10/21/2017 1:38 PM CRIMINAL ANALYST EXAMINATION: XR CHEST 1 VW PORTABLE CLINICAL HISTORY: SHORTNESS OF BREATH COMPARISON: 10/20/2017 IMPRESSION: 1. Interstitial opacities and bronchiectasis are present in the right lungs and to a lesser extent the medial left lung consistent with chronic interstitial lung disease and pulmonary fibrosis. 2. The heart size is within normal limits. The heart is slightly shifted to the right. The aorta is minimally atherosclerotic. 3. There is no evidence pulmonary edema. There are no pleural effusions. 4. Regional skeletal structures are within normal limits. [facility]-[id number] ECG 12 lead (10/21/2017 1:11 PM) Component Value Ref Range Ventricular rate 96 Atrial rate 96 MI interval 138 QRSD interval 82 QT interval 372 QTC interval 469 P axis 1 7 QRS axis 1 3 T wave axis 45 EKG impression Normal sinus rhythm-Minimal voltage criteria for LVH, may be normal variant-Nonspecific ST and T wave abnormality- Specimen Performing Laboratory [facility] MUSE [address] [place] [id number] Salmonella/shigella culture (10/21/2017 9:09 AM) Component Value Ref Range Salmonella/shigella culture isolate No Aeromonas isolated Comment: Specimen Information Specimen Source: Stool Specimen Site: Nonpreserved Specimen Performing Laboratory Stool - Nonpreserved [facility] DEPARTMENT OF PATHOLOGY [facility] MEDICINE [address] [place] [id number] Anti Xa, unfractionated (10/21/2017 2:53 AM)Only the most recent of2 resultswithin the time period is included. Component Value Ref Range Anti Xa, unfractionated 1.01 (H) 0.30 - 0.70 U/mL Comment: Therapeutic Range:0.30 - 0.70 U/mL XAUFH results called to and read back by MIMI KOCH/Tres (name/location) at 10/21/201704:55 (date/time) by CS1_. Specimen Performing Laboratory Blood [facility] DEPARTMENT OF PATHOLOGY AND GENOMIC MEDICINE [address] [place] [id number] Narrative XAUFH added on per Patrizia Silas/PHARM Urine eosinophils (10/21/2017 1:30 AM) Component Value Ref Range Eosinophils, urine PRESENT (A) Specimen Performing Laboratory Urine [facility] DEPARTMENT OF PATHOLOGY AND GENOMIC MEDICINE [address] [place] [id number] Urea nitrogen, urine, random (10/21/2017 1:30 AM) Component Value Ref Range Urea nitrogen, urine, random 307 mg/dL Specimen Performing Laboratory Urine [facility] DEPARTMENT OF PATHOLOGY AND GENOMIC MEDICINE [address] [place] [id number] Sodium level, urine, random (10/21/2017 1:30 AM) Component Value Ref Range Sodium, urine, random 91 mEq/L Specimen Performing Laboratory Urine [facility] DEPARTMENT OF PATHOLOGY AND GENOMIC MEDICINE [address] [place] [id number] Protein, urine, random (10/21/2017 1:30 AM) Component Value Ref Range Protein, urine random 69 mg/dL Specimen Performing Laboratory Urine [facility] DEPARTMENT OF PATHOLOGY AND GENOMIC MEDICINE [address] [place] [id number] Creatinine level, urine, random (10/21/2017 1:30 AM) Component Value Ref Range Creatinine, urine, random 24 mg/dL Specimen Performing Laboratory Urine [facility] DEPARTMENT OF PATHOLOGY AND GENOMIC MEDICINE [address] [place] [id number] Chloride level, urine, random (10/21/2017 1:30 AM) Component Value Ref Range Chloride, urine, random 69 mEq/L Specimen Performing Laboratory Urine [facility] DEPARTMENT OF PATHOLOGY AND GENOMIC MEDICINE [address] [place] [id number] T4 (10/21/2017) Component Value Ref Range T4 6.8 4.5 - 11.7 ug/dL Specimen Performing Laboratory Plasma specimen [facility] DEPARTMENT OF PATHOLOGY AND GENOMIC MEDICINE [address] [place] [id number] Chest External Study (10/20/2017 6:55 PM) Specimen Performing Laboratory [facility] [address] [place] [id number] Narrative This exam was not acquired at a [facility] facility and has not been interpreted by a [facility] Provider.The exam was imported into our imaging system for comparisons purposes. XR Chest External Study (10/20/2017 5:10 PM) Specimen Performing Laboratory [facility] [address] [place] [id number] Narrative This exam was not acquired at a [facility] facility and has not been interpreted by a [facility] Provider.The exam was imported into our imaging system for comparisons purposes. after 12/23/2016 Insurance Payer Benefit Plan / Group Subscriber ID Type Phone Address [employer] OPEN ACCESS/NETWORK xxxxxxxxxxx [facility] [facility] [place] B xxxxxxxxxx Medicare [place], [place] Home[place] [address] [phone] [place], [place] [phone]
--- OUTSIDE RECORDS SUMMARY | 2017-12-24 19:58 | XMS REPORT ---
:1955 Author Organization [facility] Address [address] [place] [address] [address] [place] [address] Care Team Providers Name Role Phone PAZGAL ENNIS Unavailable Unavailable Problems This patient has no known problems. Allergies, Adverse Reactions, Alerts This patient has no known allergies or adverse reactions. Medications This patient has no known medications. Results Test Description Test Time Test Comments Text Results Atomic Results Result Comments STOOL CULTURE + SHIGA TOXIN 2016-11-06 10:48:00 Test Item Value Reference Range Comments CULTURE (BEAKER) (test cacy=9541) No Salmonella, Shigella or Campylobacter isolated Unable to test for Shiga Toxin 1 due to insufficient growth of specimen.Unable to test for Shiga Toxin 2 due to insufficient growth of specimen.STOOL PATH [id number] 13:49:00 Test Item Value Reference Range Comments PATHOGEN EXAM CHARGED (BEAKER) (test gfth=9549) Done POCT-GLUCOSE [id number] 11:36:00 Test Item Value Reference Range Comments POC-GLUCOSE METER (BEAKER) 106 mg/dL 70-[address] [facility] [address] [facility] (test zboq=5214) [facility] [address] POCT-GLUCOSE [id number] 08:21:00 Test Item Value Reference Range Comments POC-GLUCOSE METER (BEAKER) 110 mg/dL 70-[address] [facility] [address] [facility] (test zpds=7766) [facility] [address] [id number] 05:17:00 Test Item Value Reference Range Comments PHOSPHORUS (BEAKER) (test qrwx=518) 3.6 mg/dL 2.3-4.7 [id number] 05:17:00 Test Item Value Reference Range Comments MAGNESIUM (BEAKER) (test yhcx=102) 1.6 mg/dL 1.6-2.6 BASIC METABOLIC [id number] 05:17:00 Test Item Value Reference Range Comments SODIUM (BEAKER) (test 136 meq/L 136-145 izck=503) POTASSIUM (BEAKER) (test 4.1 meq/L 3.5-5.1 ptex=767) CHLORIDE (BEAKER) (test 108 meq/L 98-107 nbvj=128) CO2 (BEAKER) (test 19 meq/L 22-29 lzis=630) BLOOD UREA NITROGEN 17 mg/dL 7-21 (BEAKER) (test kgsn=731) CREATININE (BEAKER) (test 0.87 mg/dL 0.57-1.25 vnfz=543) GLUCOSE RANDOM (BEAKER) 89 mg/dL 70-105 (test xpkb=345) CALCIUM (BEAKER) (test 8.9 mg/dL 8.4-10.2 gdbj=103) EGFR (BEAKER) (test 66 mL/min/1.73 sq m ESTIMATED GFR IS NOT nnnt=8115) ACCURATE CREATININE CLEARANCE IN PREDICTING GLOMERULAR FILTRATION RATE. ESTIMATED GFR IS NOT APPLICABLE FOR DIALYSIS PATIENTS. CBC W/PLT COUNT & AUTO [id number] 05:09:00 Test Item Value Reference Range Comments WHITE BLOOD CELL COUNT (BEAKER) (test zslk=069) 9.0 K/ L 4.0-10.0 RED BLOOD CELL COUNT (BEAKER) (test xppe=324) 4.11 M/ L 4.00-5.00 HEMOGLOBIN (BEAKER) (test wmex=216) 11.8 GM/DL 12.0-15.0 HEMATOCRIT (BEAKER) (test lnjr=288) 37.1 % 36.0-45.0 MEAN CORPUSCULAR VOLUME (BEAKER) (test ejgo=376) 90.2 fL 82.0-99.0 MEAN CORPUSCULAR HEMOGLOBIN (BEAKER) (test 28.8 pg 27.0-33.0 dqqw=490) MEAN CORPUSCULAR HEMOGLOBIN CONC (BEAKER) (test 32.0 GM/DL 32.0-36.0 ytmc=493) RED CELL DISTRIBUTION WIDTH (BEAKER) (test 12.5 % 10.3-14.2 grkc=003) PLATELET COUNT (BEAKER) (test dwiu=857) 255 K/CU MM 150-430 MEAN PLATELET VOLUME (BEAKER) (test zcyl=532) 6.6 fL 6.5-10.5 NUCLEATED RED BLOOD CELLS (BEAKER) (test 0 /100 WBC 0-0 wnsc=857) NEUTROPHILS RELATIVE PERCENT (BEAKER) (test 63 % takm=545) LYMPHOCYTES RELATIVE PERCENT (BEAKER) (test 22 % qdxj=164) MONOCYTES RELATIVE PERCENT (BEAKER) (test 10 % izjs=096) EOSINOPHILS RELATIVE PERCENT (BEAKER) (test 4 % wasb=447) BASOPHILS RELATIVE PERCENT (BEAKER) (test 1 % fbeq=293) NEUTROPHILS ABSOLUTE COUNT (BEAKER) (test 5.66 K/ L 1.80-8.00 kbnc=128) LYMPHOCYTES ABSOLUTE COUNT (BEAKER) (test 1.98 K/ L 1.48-4.50 nprd=753) MONOCYTES ABSOLUTE COUNT (BEAKER) (test 0.90 K/ L 0.00-1.30 njwb=839) EOSINOPHILS ABSOLUTE COUNT (BEAKER) (test 0.39 K/ L 0.00-0.50 fhua=895) BASOPHILS ABSOLUTE COUNT (BEAKER) (test 0.07 K/ L 0.00-0.20 disg=863) 0.00PROTHROMBIN [id number] 04:57:00 Test Item Value Reference Range Comments PROTIME (BEAKER) (test biob=390) 15.7 seconds 11.7-14.7 INR (BEAKER) (test zton=582) 1.3 <=5.9 RECOMMENDED COUMADIN/WARFARIN INR THERAPY RANGESSTANDARD DOSE: 2.0 - 3.0 Includes: PROPHYLAXIS forvenous thrombosis, systemic embolization; TREATMENT for venous thrombosis and/or pulmonary embolus.HIGH RISK: Target INR is 2.5-3.5 for patients with mechanical heart valves.While on warfarin.POCT-GLUCOSE [id number] 20:59:00 Test Item Value Reference Range Comments POC-GLUCOSE METER (BEAKER) 100 mg/dL 70-[address] [facility] [address] [facility] [facility] (test lajk=3515) [facility] [address] BASIC METABOLIC [id number] 18:30:00 Test Item Value Reference Range Comments SODIUM (BEAKER) (test 137 meq/L 136-145 vtbk=857) POTASSIUM (BEAKER) (test 4.1 meq/L 3.5-5.1 jelm=711) CHLORIDE (BEAKER) (test 106 meq/L 98-107 gjyo=191) CO2 (BEAKER) (test 25 meq/L 22-29 vdzo=015) BLOOD UREA NITROGEN 18 mg/dL 7-21 (BEAKER) (test cjii=521) CREATININE (BEAKER) (test 0.98 mg/dL 0.57-1.25 cvbm=468) GLUCOSE RANDOM (BEAKER) 157 mg/dL 70-105 (test jiqk=069) CALCIUM (BEAKER) (test 9.3 mg/dL 8.4-10.2 rowy=841) EGFR (BEAKER) (test 58 mL/min/1.73 sq m ESTIMATED GFR IS NOT uccm=9492) ACCURATE CREATININE CLEARANCE IN PREDICTING GLOMERULAR FILTRATION RATE. ESTIMATED GFR IS NOT APPLICABLE FOR DIALYSIS PATIENTS. POCT-GLUCOSE [id number] 15:40:00 Test Item Value Reference Range Comments POC-GLUCOSE METER (BEAKER) 95 mg/dL 70-110 TESTED AT [address] (test mrzv=9631) [place] [address] POCT-GLUCOSE [id number] 11:47:00 Test Item Value Reference Range Comments POC-GLUCOSE METER (BEAKER) 101 mg/dL 70-110 TESTED AT [address] (test ixia=5627) [place] [id number] POCT-GLUCOSE [id number] 07:32:00 Test Item Value Reference Range Comments POC-GLUCOSE METER (BEAKER) 88 mg/dL 70-110 TESTED AT [address] (test vnol=8334) [place] [id number] CBC W/PLT COUNT & AUTO [id number] 07:32:00 Test Item Value Reference Range Comments WHITE BLOOD CELL COUNT (BEAKER) (test oqbh=774) 9.1 K/ L 4.0-10.0 RED BLOOD CELL COUNT (BEAKER) (test ymwc=636) 4.02 M/ L 4.00-5.00 HEMOGLOBIN (BEAKER) (test tzng=495) 12.2 GM/DL 12.0-15.0 HEMATOCRIT (BEAKER) (test bgkm=090) 36.3 % 36.0-45.0 MEAN CORPUSCULAR VOLUME (BEAKER) (test wypl=496) 90.3 fL 82.0-99.0 MEAN CORPUSCULAR HEMOGLOBIN (BEAKER) (test 30.3 pg 27.0-33.0 bfom=790) MEAN CORPUSCULAR HEMOGLOBIN CONC (BEAKER) (test 33.6 GM/DL 32.0-36.0 hvkp=350) RED CELL DISTRIBUTION WIDTH (BEAKER) (test 12.5 % 10.3-14.2 kvia=776) PLATELET COUNT (BEAKER) (test dlul=692) 265 K/CU MM 150-430 MEAN PLATELET VOLUME (BEAKER) (test vfyn=788) 6.7 fL 6.5-10.5 NUCLEATED RED BLOOD CELLS (BEAKER) (test 0 /100 WBC 0-0 srpi=082) NEUTROPHILS RELATIVE PERCENT (BEAKER) (test 65 % vpbd=140) LYMPHOCYTES RELATIVE PERCENT (BEAKER) (test 21 % pouc=104) MONOCYTES RELATIVE PERCENT (BEAKER) (test 9 % cleb=430) EOSINOPHILS RELATIVE PERCENT (BEAKER) (test 4 % ingt=241) BASOPHILS RELATIVE PERCENT (BEAKER) (test 1 % qnus=772) NEUTROPHILS ABSOLUTE COUNT (BEAKER) (test 5.89 K/ L 1.80-8.00 oujh=769) LYMPHOCYTES ABSOLUTE COUNT (BEAKER) (test 1.94 K/ L 1.48-4.50 mmdw=050) MONOCYTES ABSOLUTE COUNT (BEAKER) (test 0.84 K/ L 0.00-1.30 hsjg=835) EOSINOPHILS ABSOLUTE COUNT (BEAKER) (test 0.33 K/ L 0.00-0.50 vwqc=929) BASOPHILS ABSOLUTE COUNT (BEAKER) (test 0.08 K/ L 0.00-0.20 vtrx=722) 0.00BASI METABOLIC [id number] 06:23:00 Test Item Value Reference Range Comments SODIUM (BEAKER) (test 137 meq/L 136-145 ywwd=896) POTASSIUM (BEAKER) (test 4.0 meq/L 3.5-5.1 cbqx=396) CHLORIDE (BEAKER) (test 107 meq/L 98-107 pndx=976) CO2 (BEAKER) (test 19 meq/L 22-29 uczz=910) BLOOD UREA NITROGEN 17 mg/dL 7-21 (BEAKER) (test hmwt=431) CREATININE (BEAKER) (test 0.84 mg/dL 0.57-1.25 qqww=690) GLUCOSE RANDOM (BEAKER) 88 mg/dL 70-105 (test kwwk=395) CALCIUM (BEAKER) (test 9.2 mg/dL 8.4-10.2 caxb=838) EGFR (BEAKER) (test 69 mL/min/1.73 sq m ESTIMATED GFR IS NOT cnql=2193) ACCURATE CREATININE CLEARANCE IN PREDICTING GLOMERULAR FILTRATION RATE. ESTIMATED GFR IS NOT APPLICABLE FOR DIALYSIS PATIENTS. [id number] 06:23:00 Test Item Value Reference Range Comments MAGNESIUM (BEAKER) (test gcxj=199) 1.6 mg/dL 1.6-2.6 [id number] 06:23:00 Test Item Value Reference Range Comments PHOSPHORUS (BEAKER) (test oyfb=019) 3.6 mg/dL 2.3-4.7 PROTHROMBIN [id number] 06:15:00 Test Item Value Reference Range Comments PROTIME (BEAKER) (test xgdh=129) 14.9 seconds 11.7-14.7 INR (BEAKER) (test tbrh=632) 1.2 <=5.9 RECOMMENDED COUMADIN/WARFARIN INR THERAPY RANGESSTANDARD DOSE: 2.0 - 3.0 Includes: PROPHYLAXIS forvenous thrombosis, systemic embolization; TREATMENT for venous thrombosis and/or pulmonary embolus.HIGH RISK: Target INR is 2.5-3.5 for patients with mechanical heart valves.While on warfarin.POCT-GLUCOSE [id number] 20:47:00 Test Item Value Reference Range Comments POC-GLUCOSE METER (BEAKER) 108 mg/dL 70-[address] [facility] [address] (test clzu=0616) [facility] [address] BASIC METABOLIC [id number] 18:12:00 Test Item Value Reference Range Comments SODIUM (BEAKER) (test 136 meq/L 136-145 srcs=209) POTASSIUM (BEAKER) (test 4.2 meq/L 3.5-5.1 vklb=557) CHLORIDE (BEAKER) (test 105 meq/L 98-107 cllj=780) CO2 (BEAKER) (test 23 meq/L 22-29 pxmx=058) BLOOD UREA NITROGEN 22 mg/dL 7-21 (BEAKER) (test iwml=987) CREATININE (BEAKER) (test 0.98 mg/dL 0.57-1.25 rnhs=582) GLUCOSE RANDOM (BEAKER) 168 mg/dL 70-105 (test ffxd=822) CALCIUM (BEAKER) (test 9.4 mg/dL 8.4-10.2 qdfj=973) EGFR (BEAKER) (test 58 mL/min/1.73 sq m ESTIMATED GFR IS NOT bpov=6700) ACCURATE CREATININE CLEARANCE IN PREDICTING GLOMERULAR FILTRATION RATE. ESTIMATED GFR IS NOT APPLICABLE FOR DIALYSIS PATIENTS. POCT-GLUCOSE [id number] 17:53:00 Test Item Value Reference Range Comments POC-GLUCOSE METER (BEAKER) 165 mg/dL 70-110 TESTED AT [address] (test incg=2777) [place] [id number] PROTHROMBIN [id number] 13:53:00 Test Item Value Reference Range Comments PROTIME (BEAKER) (test wniw=288) 14.7 seconds 11.7-14.7 INR (BEAKER) (test mpqq=600) 1.2 <=5.9 RECOMMENDED COUMADIN/WARFARIN INR THERAPY RANGESSTANDARD DOSE: 2.0 - 3.0 Includes: PROPHYLAXIS forvenous thrombosis, systemic embolization; TREATMENT for venous thrombosis and/or pulmonary embolus.HIGH RISK: Target INR is 2.5-3.5 for patients with mechanical heart valves.POCT-GLUCOSE [id number] 11:49:00 Test Item Value Reference Range Comments POC-GLUCOSE METER (BEAKER) 120 mg/dL 70-110 TESTED AT [address] (test jfyz=1170) [place] [address] POCT-GLUCOSE [id number] 07:58:00 Test Item Value Reference Range Comments POC-GLUCOSE METER (BEAKER) 94 mg/dL 70-110 TESTED AT [address] (test gomg=4189) [place] [address] [id number] 07:23:00 Test Item Value Reference Range Comments PHOSPHORUS (BEAKER) (test fffi=982) 3.6 mg/dL 2.3-4.7 [id number] 07:23:00 Test Item Value Reference Range Comments MAGNESIUM (BEAKER) (test atda=476) 1.8 mg/dL 1.6-2.6 BASIC METABOLIC [id number] 07:23:00 Test Item Value Reference Range Comments SODIUM (BEAKER) (test 136 meq/L 136-145 yyty=289) POTASSIUM (BEAKER) (test 3.9 meq/L 3.5-5.1 xajg=060) CHLORIDE (BEAKER) (test 106 meq/L 98-107 tddk=378) CO2 (BEAKER) (test 19 meq/L 22-29 mjwk=810) BLOOD UREA NITROGEN 19 mg/dL 7-21 (BEAKER) (test ibea=367) CREATININE (BEAKER) (test 0.91 mg/dL 0.57-1.25 mpwf=841) GLUCOSE RANDOM (BEAKER) 84 mg/dL 70-105 (test ziga=895) CALCIUM (BEAKER) (test 9.6 mg/dL 8.4-10.2 cyeh=314) EGFR (BEAKER) (test 63 mL/min/1.73 sq m ESTIMATED GFR IS NOT mbqk=1164) ACCURATE CREATININE CLEARANCE IN PREDICTING GLOMERULAR FILTRATION RATE. ESTIMATED GFR IS NOT APPLICABLE FOR DIALYSIS PATIENTS. CBC W/PLT COUNT & AUTO [id number] 07:15:00 Test Item Value Reference Range Comments WHITE BLOOD CELL COUNT (BEAKER) (test ixzm=012) 8.7 K/ L 4.0-10.0 RED BLOOD CELL COUNT (BEAKER) (test ioeg=460) 4.25 M/ L 4.00-5.00 HEMOGLOBIN (BEAKER) (test ypeb=765) 12.5 GM/DL 12.0-15.0 HEMATOCRIT (BEAKER) (test ehxi=959) 38.6 % 36.0-45.0 MEAN CORPUSCULAR VOLUME (BEAKER) (test zttn=280) 90.9 fL 82.0-99.0 MEAN CORPUSCULAR HEMOGLOBIN (BEAKER) (test 29.5 pg 27.0-33.0 eblf=774) MEAN CORPUSCULAR HEMOGLOBIN CONC (BEAKER) (test 32.4 GM/DL 32.0-36.0 uqqp=681) RED CELL DISTRIBUTION WIDTH (BEAKER) (test 12.5 % 10.3-14.2 aith=401) PLATELET COUNT (BEAKER) (test bniq=078) 275 K/CU MM 150-430 MEAN PLATELET VOLUME (BEAKER) (test lifl=905) 6.7 fL 6.5-10.5 NUCLEATED RED BLOOD CELLS (BEAKER) (test 0 /100 WBC 0-0 uvsw=375) NEUTROPHILS RELATIVE PERCENT (BEAKER) (test 63 % jxdv=137) LYMPHOCYTES RELATIVE PERCENT (BEAKER) (test 24 % idot=580) MONOCYTES RELATIVE PERCENT (BEAKER) (test 8 % tqfk=460) EOSINOPHILS RELATIVE PERCENT (BEAKER) (test 5 % rvjh=358) BASOPHILS RELATIVE PERCENT (BEAKER) (test 1 % coky=358) NEUTROPHILS ABSOLUTE COUNT (BEAKER) (test 5.47 K/ L 1.80-8.00 bzln=709) LYMPHOCYTES ABSOLUTE COUNT (BEAKER) (test 2.05 K/ L 1.48-4.50 rqht=726) MONOCYTES ABSOLUTE COUNT (BEAKER) (test 0.73 K/ L 0.00-1.30 ccyr=797) EOSINOPHILS ABSOLUTE COUNT (BEAKER) (test 0.40 K/ L 0.00-0.50 pvyd=666) BASOPHILS ABSOLUTE COUNT (BEAKER) (test 0.07 K/ L 0.00-0.20 eqbb=410) 0.00POCT-GLUCOSE [id number] 20:44:00 Test Item Value Reference Range Comments POC-GLUCOSE METER (BEAKER) 164 mg/dL 70-[address] [facility] [address] [facility] [facility] (test jevs=8909) [facility] [address] BASIC METABOLIC [id number] 19:53:00 Test Item Value Reference Range Comments SODIUM (BEAKER) (test 137 meq/L 136-145 tkdx=842) POTASSIUM (BEAKER) (test 4.1 meq/L 3.5-5.1 ggax=756) CHLORIDE (BEAKER) (test 103 meq/L 98-107 okjm=170) CO2 (BEAKER) (test 23 meq/L 22-29 jbxd=836) BLOOD UREA NITROGEN 20 mg/dL 7-21 (BEAKER) (test pitw=486) CREATININE (BEAKER) (test 1.15 mg/dL 0.57-1.25 jyzs=837) GLUCOSE RANDOM (BEAKER) 157 mg/dL 70-105 (test sdng=155) CALCIUM (BEAKER) (test 9.8 mg/dL 8.4-10.2 sxte=350) EGFR (BEAKER) (test 48 mL/min/1.73 sq m ESTIMATED GFR IS NOT zncx=9266) ACCURATE CREATININE CLEARANCE IN PREDICTING GLOMERULAR FILTRATION RATE. ESTIMATED GFR IS NOT APPLICABLE FOR DIALYSIS PATIENTS. POCT-GLUCOSE [id number] 17:25:00 Test Item Value Reference Range Comments POC-GLUCOSE METER ([employer]) 97 mg/dL 70-110 TESTED AT [address] (test gals=0552) [place] [address] CLOSTRIDIUM DIFFICILE TOXIN [id number] 15:24:00 Test Item Value Reference Range Comments CLOSTRIDIUM DIFFICILE TOXIN, PCR ([employer]) (test Not Detected Not Detected aeso=9191) This qualitative real-time polymerase chain reaction assay detects the tcdB gene , encoded on the C.difficile pathogenicity locus (PaLoc). The product of tcdB, toxin B, is a cytotoxin essential for causing C.difficile-associated disease ( CDAD) and is found in virtually all toxigenic C.difficile.This assay is performed for patients suspected of having either community-acquired or nosocomial CDAD. Accordingly, only symptomatic patients should be tested and formed stools will be rejected unless ileus is present (i.e., specified when ordering). Patients may be colonized with toxigenic C.difficile strains not causing active disease; therefore, clinical correlation is needed when deciding how to manage patients with a positive test result.The assay has not been validated as a test of cure as amplifiable nucleic acid may persist after effective treatment; therefore, follow-up testing of a positive result is not recommended.POCT-GLUCOSE [id number] 12:30:00 Test Item Value Reference Range Comments POC-GLUCOSE METER (BEAKER) 110 mg/dL 70-110 TESTED AT [address] (test rkpk=5009) [place] [address] POCT-GLUCOSE [id number] 07:56:00 Test Item Value Reference Range Comments POC-GLUCOSE METER (BEAKER) 94 mg/dL 70-110 TESTED AT [address] (test zyas=5350) [place] [address] HEMOGLOBIN [id number] 07:48:00 Test Item Value Reference Range Comments HEMOGLOBIN A1C (Opee[employer]AKER) (test ycgr=141) 5.4 % 4.3-6.1 CBC W/PLT COUNT & AUTO [id number] 06:42:00 Test Item Value Reference Range Comments WHITE BLOOD CELL COUNT ([employer]) (test mbqp=625) 8.0 K/ L 4.0-10.0 RED BLOOD CELL COUNT (BEAKER) (test onhl=085) 4.65 M/ L 4.00-5.00 HEMOGLOBIN (BEAKER) (test kqwo=072) 13.6 GM/DL 12.0-15.0 HEMATOCRIT (BEAKER) (test axwk=008) 41.6 % 36.0-45.0 MEAN CORPUSCULAR VOLUME (BEAKER) (test xtmz=790) 89.3 fL 82.0-99.0 MEAN CORPUSCULAR HEMOGLOBIN (BEAKER) (test 29.2 pg 27.0-33.0 mabb=895) MEAN CORPUSCULAR HEMOGLOBIN CONC (BEAKER) (test 32.7 GM/DL 32.0-36.0 ucsd=851) RED CELL DISTRIBUTION WIDTH (BEAKER) (test 13.6 % 10.3-14.2 ldgw=902) PLATELET COUNT (BEAKER) (test tgum=104) 247 K/CU MM 150-430 MEAN PLATELET VOLUME (BEAKER) (test ilyl=142) 6.9 fL 6.5-10.5 NUCLEATED RED BLOOD CELLS (BEAKER) (test 0 /100 WBC 0-0 ylqq=560) NEUTROPHILS RELATIVE PERCENT (BEAKER) (test 68 % gthe=886) LYMPHOCYTES RELATIVE PERCENT (BEAKER) (test 18 % uvfr=020) MONOCYTES RELATIVE PERCENT (BEAKER) (test 10 % idgj=371) EOSINOPHILS RELATIVE PERCENT (BEAKER) (test 3 % gpgi=032) BASOPHILS RELATIVE PERCENT (BEAKER) (test 1 % alhf=318) NEUTROPHILS ABSOLUTE COUNT (BEAKER) (test 5.42 K/ L 1.80-8.00 zbxg=350) LYMPHOCYTES ABSOLUTE COUNT (BEAKER) (test 1.47 K/ L 1.48-4.50 lhte=483) MONOCYTES ABSOLUTE COUNT (BEAKER) (test 0.76 K/ L 0.00-1.30 ikis=152) EOSINOPHILS ABSOLUTE COUNT (BEAKER) (test 0.27 K/ L 0.00-0.50 xbvo=314) BASOPHILS ABSOLUTE COUNT (BEAKER) (test 0.06 K/ L 0.00-0.20 zveb=889) [id number] 06:06:00 Test Item Value Reference Range Comments PHOSPHORUS (BEAKER) (test bdmx=842) 3.7 mg/dL 2.3-4.7 [id number] 06:06:00 Test Item Value Reference Range Comments MAGNESIUM (BEAKER) (test kela=472) 1.4 mg/dL 1.6-2.6 BASIC METABOLIC [id number] 06:06:00 Test Item Value Reference Range Comments SODIUM (BEAKER) (test 138 meq/L 136-145 xhti=185) POTASSIUM (BEAKER) (test 3.3 meq/L 3.5-5.1 bepf=134) CHLORIDE (BEAKER) (test 103 meq/L 98-107 duvg=422) CO2 (BEAKER) (test 22 meq/L 22-29 ttzm=065) BLOOD UREA NITROGEN 22 mg/dL 7-21 (BEAKER) (test wndj=243) CREATININE (BEAKER) (test 1.01 mg/dL 0.57-1.25 lzrb=939) GLUCOSE RANDOM (BEAKER) 91 mg/dL 70-105 (test ktje=507) CALCIUM (BEAKER) (test 9.6 mg/dL 8.4-10.2 gprg=009) EGFR (BEAKER) (test 56 mL/min/1.73 sq m ESTIMATED GFR IS NOT cbzp=8450) ACCURATE CREATININE CLEARANCE IN PREDICTING GLOMERULAR FILTRATION RATE. ESTIMATED GFR IS NOT APPLICABLE FOR DIALYSIS PATIENTS. POCT-GLUCOSE [id number] 21:04:00 Test Item Value Reference Range Comments POC-GLUCOSE METER (BEAKER) 100 mg/dL 70-[address] [facility] [address] [facility] (test oaru=5144) [facility] [address] BASIC METABOLIC [id number] 20:03:00 Test Item Value Reference Range Comments SODIUM (BEAKER) (test 138 meq/L 136-145 hynv=428) POTASSIUM (BEAKER) (test 3.8 meq/L 3.5-5.1 ggcm=049) CHLORIDE (BEAKER) (test 102 meq/L 98-107 xbsr=278) CO2 (BEAKER) (test 20 meq/L 22-29 tkpq=348) BLOOD UREA NITROGEN 26 mg/dL 7-21 (BEAKER) (test woem=159) CREATININE (BEAKER) (test 1.16 mg/dL 0.57-1.25 ulfe=878) GLUCOSE RANDOM (BEAKER) 99 mg/dL 70-105 (test qjyv=093) CALCIUM (BEAKER) (test 10.0 mg/dL 8.4-10.2 gaia=104) EGFR (BEAKER) (test 48 mL/min/1.73 sq m ESTIMATED GFR IS NOT lrqt=5193) ACCURATE CREATININE CLEARANCE IN PREDICTING GLOMERULAR FILTRATION RATE. ESTIMATED GFR IS NOT APPLICABLE FOR DIALYSIS PATIENTS. POCT-GLUCOSE [id number] 15:45:00 Test Item Value Reference Range Comments POC-GLUCOSE METER (BEAKER) 130 mg/dL 70-110 TESTED AT [address] (test buyz=8435) [place] [address] POCT-GLUCOSE [id number] 11:20:00 Test Item Value Reference Range Comments POC-GLUCOSE METER (BEAKER) 102 mg/dL 70-110 TESTED AT [address] (test mdqe=7219) [place] [address] HEMOGLOBIN [id number] 08:50:00 Test Item Value Reference Range Comments HEMOGLOBIN A1C (BEAKER) (test mzzb=766) 5.6 % 4.3-6.1 [id number] 05:44:00 Test Item Value Reference Range Comments PHOSPHORUS (BEAKER) (test wibr=662) 3.4 mg/dL 2.3-4.7 [id number] 05:44:00 Test Item Value Reference Range Comments MAGNESIUM (BEAKER) (test pxpu=158) 1.7 mg/dL 1.6-2.6 BASIC METABOLIC [id number] 05:44:00 Test Item Value Reference Range Comments SODIUM (BEAKER) (test 138 meq/L 136-145 fsya=240) POTASSIUM (BEAKER) (test 3.9 meq/L 3.5-5.1 luuu=238) CHLORIDE (BEAKER) (test 104 meq/L 98-107 hxum=045) CO2 (BEAKER) (test 20 meq/L 22-29 trbj=859) BLOOD UREA NITROGEN 27 mg/dL 7-21 (BEAKER) (test qvdi=523) CREATININE (BEAKER) (test 1.19 mg/dL 0.57-1.25 gffk=149) GLUCOSE RANDOM (BEAKER) 87 mg/dL 70-105 (test xxzs=460) CALCIUM (BEAKER) (test 9.9 mg/dL 8.4-10.2 dwty=379) EGFR (BEAKER) (test 46 mL/min/1.73 sq m ESTIMATED GFR IS NOT cwbu=9303) ACCURATE CREATININE CLEARANCE IN PREDICTING GLOMERULAR FILTRATION RATE. ESTIMATED GFR IS NOT APPLICABLE FOR DIALYSIS PATIENTS. CBC W/PLT COUNT & AUTO [id number] 05:39:00 Test Item Value Reference Range Comments WHITE BLOOD CELL COUNT (BEAKER) (test lkcl=808) 10.3 K/ L 4.0-10.0 RED BLOOD CELL COUNT (BEAKER) (test scol=481) 4.36 M/ L 4.00-5.00 HEMOGLOBIN (BEAKER) (test sjii=194) 12.9 GM/DL 12.0-15.0 HEMATOCRIT (BEAKER) (test bsua=258) 39.0 % 36.0-45.0 MEAN CORPUSCULAR VOLUME (BEAKER) (test ixlp=141) 89.3 fL 82.0-99.0 MEAN CORPUSCULAR HEMOGLOBIN (BEAKER) (test 29.6 pg 27.0-33.0 zuxi=633) MEAN CORPUSCULAR HEMOGLOBIN CONC (BEAKER) (test 33.2 GM/DL 32.0-36.0 mjfo=435) RED CELL DISTRIBUTION WIDTH (BEAKER) (test 13.4 % 10.3-14.2 pjqm=949) PLATELET COUNT (BEAKER) (test iorq=187) 257 K/CU MM 150-430 MEAN PLATELET VOLUME (BEAKER) (test tcnt=024) 6.8 fL 6.5-10.5 NUCLEATED RED BLOOD CELLS (BEAKER) (test 0 /100 WBC 0-0 mrcw=183) NEUTROPHILS RELATIVE PERCENT (BEAKER) (test 73 % vpqa=244) LYMPHOCYTES RELATIVE PERCENT (BEAKER) (test 15 % jrpz=661) MONOCYTES RELATIVE PERCENT (BEAKER) (test 9 % slts=063) EOSINOPHILS RELATIVE PERCENT (BEAKER) (test 3 % esls=333) BASOPHILS RELATIVE PERCENT (BEAKER) (test 1 % tcbp=897) NEUTROPHILS ABSOLUTE COUNT (BEAKER) (test 7.48 K/ L 1.80-8.00 rorm=147) LYMPHOCYTES ABSOLUTE COUNT (BEAKER) (test 1.49 K/ L 1.48-4.50 geac=794) MONOCYTES ABSOLUTE COUNT (BEAKER) (test 0.94 K/ L 0.00-1.30 cqqk=684) EOSINOPHILS ABSOLUTE COUNT (BEAKER) (test 0.30 K/ L 0.00-0.50 xmqw=545) BASOPHILS ABSOLUTE COUNT (BEAKER) (test 0.07 K/ L 0.00-0.20 jeln=174) 0.00POCT-GLUCOSE [id number] 23:15:00 Test Item Value Reference Range Comments POC-GLUCOSE METER (BEAKER) 83 mg/dL 70-110 TESTED AT [address] (test efka=0761) [facility] [address] POCT-GLUCOSE [id number] 17:19:00 Test Item Value Reference Range Comments POC-GLUCOSE METER (BEAKER) 82 mg/dL 70-110 TESTED AT [address] (test vjfa=9729) [facility] [address] POCT-GLUCOSE [id number] 12:57:00 Test Item Value Reference Range Comments POC-GLUCOSE METER (BEAKER) 124 mg/dL 70-110 TESTED AT [address] (test chmz=6641) [facility] [address] HEMOGLOBIN [id number] 10:12:00 Test Item Value Reference Range Comments HEMOGLOBIN A1C (BEAKER) (test tzig=251) 5.6 % 4.3-6.1 CBC W/PLT COUNT & AUTO [id number] 06:14:00 Test Item Value Reference Range Comments WHITE BLOOD CELL COUNT (BEAKER) (test yvzm=998) 12.1 K/ L 4.0-10.0 RED BLOOD CELL COUNT (BEAKER) (test fdvm=394) 4.29 M/ L 4.00-5.00 HEMOGLOBIN (BEAKER) (test evpm=354) 12.5 GM/DL 12.0-15.0 HEMATOCRIT (BEAKER) (test drrb=396) 38.8 % 36.0-45.0 MEAN CORPUSCULAR VOLUME (BEAKER) (test zkqo=877) 90.4 fL 82.0-99.0 MEAN CORPUSCULAR HEMOGLOBIN (BEAKER) (test 29.2 pg 27.0-33.0 lvoh=982) MEAN CORPUSCULAR HEMOGLOBIN CONC (BEAKER) (test 32.3 GM/DL 32.0-36.0 maqw=911) RED CELL DISTRIBUTION WIDTH (BEAKER) (test 12.5 % 10.3-14.2 pazm=407) PLATELET COUNT (BEAKER) (test ipnn=472) 263 K/CU MM 150-430 MEAN PLATELET VOLUME (BEAKER) (test uogq=838) 7.3 fL 6.5-10.5 NUCLEATED RED BLOOD CELLS (BEAKER) (test 0 /100 WBC 0-0 dqse=451) NEUTROPHILS RELATIVE PERCENT (BEAKER) (test 73 % ympy=138) LYMPHOCYTES RELATIVE PERCENT (BEAKER) (test 15 % dhif=764) MONOCYTES RELATIVE PERCENT (BEAKER) (test 10 % xewe=237) EOSINOPHILS RELATIVE PERCENT (BEAKER) (test 2 % jwyy=913) BASOPHILS RELATIVE PERCENT (BEAKER) (test 0 % pwmz=236) NEUTROPHILS ABSOLUTE COUNT (BEAKER) (test 8.87 K/ L 1.80-8.00 sqja=968) LYMPHOCYTES ABSOLUTE COUNT (BEAKER) (test 1.79 K/ L 1.48-4.50 zter=945) MONOCYTES ABSOLUTE COUNT (BEAKER) (test 1.18 K/ L 0.00-1.30 kple=322) EOSINOPHILS ABSOLUTE COUNT (BEAKER) (test 0.22 K/ L 0.00-0.50 jusv=282) BASOPHILS ABSOLUTE COUNT (BEAKER) (test 0.04 K/ L 0.00-0.20 febr=830) [id number] 05:43:00 Test Item Value Reference Range Comments PHOSPHORUS (BEAKER) (test egxw=988) 4.1 mg/dL 2.3-4.7 [id number] 05:43:00 Test Item Value Reference Range Comments MAGNESIUM (BEAKER) (test lyeg=324) 1.9 mg/dL 1.6-2.6 BASIC METABOLIC [id number] 05:43:00 Test Item Value Reference Range Comments SODIUM (BEAKER) (test 137 meq/L 136-145 zeko=563) POTASSIUM (BEAKER) (test 3.8 meq/L 3.5-5.1 eezm=387) CHLORIDE (BEAKER) (test 102 meq/L 98-107 oyjz=967) CO2 (BEAKER) (test 24 meq/L 22-29 jmkg=628) BLOOD UREA NITROGEN 29 mg/dL 7-21 (BEAKER) (test edrg=391) CREATININE (BEAKER) (test 1.28 mg/dL 0.57-1.25 xcal=512) GLUCOSE RANDOM (BEAKER) 100 mg/dL 70-105 (test rmjy=085) CALCIUM (BEAKER) (test 9.9 mg/dL 8.4-10.2 wzcy=512) EGFR (BEAKER) (test 43 mL/min/1.73 sq m ESTIMATED GFR IS NOT couj=2728) ACCURATE CREATININE CLEARANCE IN PREDICTING GLOMERULAR FILTRATION RATE. ESTIMATED GFR IS NOT APPLICABLE FOR DIALYSIS PATIENTS. POCT-GLUCOSE [id number] 05:12:00 Test Item Value Reference Range Comments POC-GLUCOSE METER (BEAKER) 89 mg/dL 70-110 TESTED AT [place] [id number] [facility] (test lggl=0320) [facility] [address] POCT-GLUCOSE [id number] 00:07:00 Test Item Value Reference Range Comments POC-GLUCOSE METER (BEAKER) 92 mg/dL 70-110 TESTED AT [address] (test vobi=9625) [place] [id number] 23:51:00 Test Item Value Reference Range Comments PROTIME (BEAKER) (test ppkb=049) 15.5 seconds 11.7-14.7 INR (BEAKER) (test pfiw=531) 1.2 <=5.9 PARTIAL THROMBOPLASTIN TIME (BEAKER) (test 36.5 seconds 22.5-36.0 igze=361) RECOMMENDED COUMADIN/WARFARIN INR THERAPY RANGESSTANDARD DOSE: 2.0 - 3.0 Includes: PROPHYLAXIS forvenous thrombosis, systemic embolization; TREATMENT for venous thrombosis and/or pulmonary embolus.HIGH RISK: Target INR is 2.5-3.5 for patients with mechanical heart valves.[id number] 23:49:00 Test Item Value Reference Range Comments MAGNESIUM (BEAKER) (test 1.9 mg/dL 1.6-2.6 Specimen slightly hemolyzed rudl=431) [id number] 23:49:00 Test Item Value Reference Range Comments PHOSPHORUS (BEAKER) (test 3.4 mg/dL 2.3-4.7 Specimen slightly hemolyzed tcaa=262) BASIC METABOLIC [id number] 23:49:00 Test Item Value Reference Range Comments SODIUM (BEAKER) (test 136 meq/L 136-145 wdyk=038) POTASSIUM (BEAKER) (test 4.1 meq/L 3.5-5.1 Specimen slightly iewj=680) hemolyzed CHLORIDE (BEAKER) (test 100 meq/L 98-107 jdhy=992) CO2 (BEAKER) (test 21 meq/L 22-29 buck=726) BLOOD UREA NITROGEN 28 mg/dL 7-21 (BEAKER) (test ihmj=854) CREATININE (BEAKER) (test 1.31 mg/dL 0.57-1.25 Specimen slightly auem=148) hemolyzed GLUCOSE RANDOM (BEAKER) 98 mg/dL 70-105 (test nodc=206) CALCIUM (BEAKER) (test 9.9 mg/dL 8.4-10.2 itkw=571) EGFR (BEAKER) (test 41 mL/min/1.73 sq m ESTIMATED GFR IS NOT gbmb=0000) ACCURATE CREATININE CLEARANCE IN PREDICTING GLOMERULAR FILTRATION RATE. ESTIMATED GFR IS NOT APPLICABLE FOR DIALYSIS PATIENTS. CBC W/PLT COUNT & AUTO [id number] 23:38:00 Test Item Value Reference Range Comments WHITE BLOOD CELL COUNT (BEAKER) (test oadm=602) 13.2 K/ L 4.0-10.0 RED BLOOD CELL COUNT (BEAKER) (test dpye=265) 4.26 M/ L 4.00-5.00 HEMOGLOBIN (BEAKER) (test cjjl=852) 13.3 GM/DL 12.0-15.0 HEMATOCRIT (BEAKER) (test xfgs=111) 38.5 % 36.0-45.0 MEAN CORPUSCULAR VOLUME (BEAKER) (test pjcd=103) 90.4 fL 82.0-99.0 MEAN CORPUSCULAR HEMOGLOBIN (BEAKER) (test 31.2 pg 27.0-33.0 odiy=133) MEAN CORPUSCULAR HEMOGLOBIN CONC (BEAKER) (test 34.5 GM/DL 32.0-36.0 afvv=192) RED CELL DISTRIBUTION WIDTH (BEAKER) (test 12.6 % 10.3-14.2 rnlp=934) PLATELET COUNT (BEAKER) (test jwco=990) 244 K/CU MM 150-430 MEAN PLATELET VOLUME (BEAKER) (test fsit=462) 7.6 fL 6.5-10.5 NUCLEATED RED BLOOD CELLS (BEAKER) (test 0 /100 WBC 0-0 lhyf=708) NEUTROPHILS RELATIVE PERCENT (BEAKER) (test 78 % plbs=192) LYMPHOCYTES RELATIVE PERCENT (BEAKER) (test 11 % uhrz=604) MONOCYTES RELATIVE PERCENT (BEAKER) (test 9 % zika=726) EOSINOPHILS RELATIVE PERCENT (BEAKER) (test 1 % eqqz=178) BASOPHILS RELATIVE PERCENT (BEAKER) (test 0 % gukd=343) NEUTROPHILS ABSOLUTE COUNT (BEAKER) (test 10.40 K/ L 1.80-8.00 ivul=809) LYMPHOCYTES ABSOLUTE COUNT (BEAKER) (test 1.49 K/ L 1.48-4.50 fbxi=018) MONOCYTES ABSOLUTE COUNT (BEAKER) (test 1.18 K/ L 0.00-1.30 hoyl=633) EOSINOPHILS ABSOLUTE COUNT (BEAKER) (test 0.12 K/ L 0.00-0.50 wnih=448) BASOPHILS ABSOLUTE COUNT (BEAKER) (test 0.06 K/ L 0.00-0.20 otcv=386) 0.00URINALYSIS W/ [id number] 22:57:00 Test Item Value Reference Range Comments COLOR (BEAKER) (test ndqc=396) Yellow CLARITY (BEAKER) (test ityz=624) Cloudy SPECIFIC GRAVITY UA (BEAKER) (test cqfy=552) 1.013 1.001-1.035 PH UA (BEAKER) (test okvi=045) 5.5 5.0-8.0 PROTEIN UA (BEAKER) (test vslu=975) 30 mg/dL Negative GLUCOSE UA (BEAKER) (test yoti=174) Negative Negative KETONES UA (BEAKER) (test ttam=665) Negative Negative BILIRUBIN UA (BEAKER) (test nowj=559) Negative Negative BLOOD UA (BEAKER) (test cshl=175) Moderate Negative NITRITE UA (BEAKER) (test wtjz=334) Negative Negative LEUKOCYTE ESTERASE UA (BEAKER) (test knpi=511) Large Negative UROBILINOGEN UA (BEAKER) (test aeoz=937) 2.0 mg/dL 0.2-1.0 RBC UA (BEAKER) (test vari=193) 34 /HPF WBC UA (BEAKER) (test nwlc=386) > /HPF MUCUS (BEAKER) (test fhra=1413) Rare SOURCE(BEAKER) (test pmbq=8990) Urine, Perez
[2017-12-24] MEDS ORDERED: NA CHLORIDE 0.9% 1,000 ML ONE (20:19)
[2017-12-24 20:39] LABS: Absolute Lymphocytes (CBC) 1.3 K/uL (0.7-4.9); Absolute Monocytes 0.8 K/uL (0.1-1.3); Absolute Neutrophil 6.2 K/uL (1.8-8.0); Basophils % 0.8 % (0-1.3); Eosinophils % 3.1 % (0-4.4); Hematocrit 32.8 % (36.0-45.0); Lymphocytes % 15.2 % (15.3-44.8); MCH 27.8 pg (27.0-35.0); MCV 84.6 fL (80-100); MPV 8.9 fL (7.6-11.3); Monocytes % 9.3 % (3.3-12.3); RBC Red Blood Cell Count 3.88 M/uL (3.86-4.86)
[2017-12-24 20:41] LABS: Protime INR 1.28
[2017-12-24 20:53] LABS: Potassium 3.8 mEq/L (3.6-5.0)
[2017-12-24 20:57] LABS: Albumin 3.4 g/dL (3.2-5.5); Bilirubin Direct 0.1 mg/dL (0-0.2); Bilirubin Total 0.7 mg/dL (0.3-1.2); Magnesium 2.5 mg/dL (1.8-2.5)
[2017-12-24 20:59] LABS: CKMB Creatine Kinase MB 0.8 ng/ml (0.3-4.0)
--- NOTE | 2017-12-24 21:14 | RAD REPORT ---
EXAM DESCRIPTION: CT - Stone Protocol - 12/24/2017 8:51 pm CLINICAL HISTORY: Abdominal pain. COMPARISON: December 2015 TECHNIQUE: Computed axial tomography of the abdomen pelvis was obtained without oral or IV contrast. Lack of IV and oral contrast limits evaluation of solid organs, bowel, and vessels. Coronal reformat robbie images were obtained and reviewed. All CT scans are performed using dose optimization technique as appropriate and may include automated exposure control or mA/KV adjustment according to patient size. FINDINGS: Right middle lobe bronchiectasis, bilateral interstitial lung opacities and small nodules are without significant change. A left renal staghorn calculus is unchanged with minimal hydronephrosis. Hounsfield unit 1306. Multip le small right renal calculi are present without hydronephrosis. A ureteral calculus is not seen. Air within the bladder is present. Diverticula are present within the colon. Mild stranding is presen t between the sigmoid colon and bladder. The patient has a known fistula. A cirrhotic liver is seen. The liver spleen is mildly enlarged. The pancreas and adrenals appear grossly normal. The gallbladder is distended. Small umbilical hernia contains fat. 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
--- NOTE | 2017-12-24 21:18 | RAD REPORT ---
EXAM DESCRIPTION: [facility] Single View12/24/2017 9:02 pm CLINICAL HISTORY: Shortness of breath COMPARISON: October 2017 FINDINGS: Opacification of the right hemithorax is unchanged representing a combination of bronchie ctasis and pulmonary fibrosis. Right lung volume loss is present. Mild chronic interstitial opacities are seen within the left lung. The heart is normal size
[2017-12-24] MEDS ORDERED: NA CHLORIDE 0.9% 2,000 ML ONE (22:19)
--- NOTE | 2017-12-24 22:21 | ER ---
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 Transition of care: patient was not received from another setting of care. Onset of symptoms was December 24, 2017. Care prior to arrival: Glucose check: 124. 20:21 Acuity: DYAN 2 bs1 20:21 Method Of Arrival: EMS: [facility] bs1 Historical: - Allergies: 20:21 No Known Allergies; bs1 - Home Meds: 12/25 01:22 citalopram 20 mg tab 1 tab once daily [Active]; folic acid 1 mg Oral tab 1 tab once bs1 daily [Active]; furosemide 20 mg Oral tab 1 tab once daily [Active]; levothyroxine 150 mcg tab 1 tab once daily [Active]; metoprolol tartrate 75 mg twice a day. Oral tab 1 tab 2 times per day [Active]; potassium chloride 20 mEq Oral TbER 3 times per day [Active]; valsartan-hydrochlorothiazide 320-25 mg Oral tab 1 tab once daily [Active]; - PMHx: 12/24 20:21 Anxiety; Diabetes - NIDDM; Hypertension; Kidney stones; Thyroid problem; chronic bs1 bladder infections; fistula; - PSHx: 20:21 kidney surgery; Tubal ligation; Thyroidectomy; removed gland on forehead; bs1 - Immunization history:: Adult Immunizations up to date. - Social history:: Smoking status: Patient/guardian denies using tobacco. - Family history:: not pertinent. Screenin:23 Abuse screen: Denies threats or abuse. Denies injuries from another. Nutritional bs1 screening: No deficits noted. Tuberculosis screening: No symptoms or risk factors identified. Fall Risk None identified. Assessment: 20:00 General: Appears uncomfortable, Behavior is calm, cooperative, appropriate for age. bs1 Pain: Denies pain. Neuro: Level of Consciousness is awake, alert, obeys commands, Oriented to person, place, time, situation, Appropriate for age Surgical Assistant are equal bilaterally Weakness Reports weakness generalized weakness, fatigue Denies blurred vision dizziness, difficulty swallowing, headache. Cardiovascular: Denies chest pain, lightheadedness, nausea, palpitations, shortness of breath, Heart tones S1 S2 present Capillary refill < 3 seconds Patient's skin is warm and dry. Respiratory: Airway is patent Trachea midline Respiratory effort is even, unlabored, Respiratory pattern is regular, symmetrical, Breath sounds are clear bilaterally. GI: Bowel sounds present X 4 quads. Reports colon/bladder fistula Patient currently denies abdominal pain, diarrhea, vomiting. : Urine is green/foul odor Reports hx of colon/bladder fistula. EENT: No deficits noted. No signs and/or symptoms were reported regarding the EENT system. Derm: Skin is pale. Musculoskeletal: Circulation, motion, and sensation intact. Capillary refill < 3 seconds, Range of motion: intact in all extremities. 20:00 Reassessment: Patient has a Central line to right chest, double lumen, patient states bs1 "I have been on TPN for 2 weeks, I have to be on it for a total of 6 weeks to have a colonoscopy done, I have a fistula from my colon to my bladder." Fish Nature infusion Tripwolf, TPN 2040ml, Dext 70%, lipids 20%, K 32, Ca 10, 20hours/day per patient report. 20:30 Reassessment: Patient appears in no apparent distress at this time. No changes from bs1 previously documented assessment. Patient and/or family updated on plan of care and expected duration. Pain level reassessed. Patient is alert, oriented x 3, equal unlabored respirations, skin warm/dry/pink. Blood pressure still low 62/35. 21:30 Reassessment: Patient appears in no apparent distress at this time. No changes from bs1 previously documented assessment. Patient and/or family updated on plan of care and expected duration. Pain level reassessed. Patient is alert, oriented x 3, equal unlabored respirations, skin warm/dry/pink. Patient denies any chest pain or dizziness. 22:30 Reassessment: Patient appears in no apparent distress at this time. No changes from bs1 previously documented assessment. Patient and/or family updated on plan of care and expected duration. Pain level reassessed. Patient is alert, oriented x 3, equal unlabored respirations, skin warm/dry/pink. 22:30 Reassessment: 22G right FA infiltrated, IV taken out, new IV 22G started in right upper bs1 arm. 23:30 Reassessment: Patient appears in no apparent distress at this time. No changes from bs1 previously documented assessment. Patient and/or family updated on plan of care and expected duration. Pain level reassessed. Patient is alert, oriented x 3, equal unlabored respirations, skin warm/dry/pink. 23:55 Reassessment: Dopamine drip initiated to right subclavian central line at 5mcg/kg/min, bs1 25.1 ml/hr, patient tolerated well, 2nd nurse checked off by Sherley Ward RN. 12/25 00:31 Reassessment: blood pressure 88/61 increased dopamine drip to 10mcg/kg, 50.3ml/hr, bs1 patient tolerating well. Report given to [facility], informed to titrate drip PRN. [facility], 8B 834, called report to Rula, at [phone]. Vital Signs: 12/24 00:45 BP 88 / 49; Pulse 57; Pulse Ox 100% on R/A; bs1 19:54 BP 64 / 39; Pulse 71; Resp 16; Temp 97.7(O); Pulse Ox 96% on R/A; Weight 133.36 kg; bs1 Height 5 ft. 9 in. (175.26 cm); Pain 0/10; 20:11 BP 69 / 32; Pulse 64; Pulse Ox 97% ; Pain 0/10; bs1 20:30 BP 62 / 35; Pulse 78; Resp 16; Pulse Ox 99% on R/A; bs1 21:54 BP 133 / 116; Pulse 58; Pulse Ox 97% on R/A; bs1 22:00 BP 71 / 40; Pulse 55; Pulse Ox 100% on R/A; bs1 22:15 BP 73 / 32; Pulse 58; Pulse Ox 100% on R/A; bs1 22:39 BP 68 / 26; Pulse 54; Pulse Ox 100% on R/A; bs1 22:43 BP 88 / 52; Pulse 56; Pulse Ox 100% on R/A; bs1 23:00 BP 89 / 55; Pulse 59; Pulse Ox 100% on R/A; bs1 23:45 BP 94 / 52; Pulse 62; Pulse Ox 100% on R/A; bs1 12/25 00:00 BP 99 / 52; Pulse 70; Pulse Ox 100% on R/A; Pain 0/10; bs1 00:15 BP 74 / 59; Pulse 72; Pulse Ox 99% on R/A; bs1 00:31 BP 88 / 61; Pulse 74; Pulse Ox 97% on R/A; bs1 12/24 19:54 Body Mass Index 43.42 (133.36 kg, 175.26 cm) bs1 ED Course: 12/24 19:56 Patient arrived in ED. em1 20:00 Arm band placed on left wrist. bs1 20:00 Patient has correct armband on for positive identification. Bed in low position. Call bs1 light in reach. Side rails up X 1. monitoring specialist on. Pulse ox on. NIBP on. 20:10 Inserted saline lock: 22 gauge in right forearm, using aseptic technique. Blood lp1 collected. 20:15 Sarah Hwang, MARK is Primary Nurse. bs1 20:19 Serge Gonzales MD is Attending Physician. christiano 20:22 Triage completed. bs1 20:27 Accessed Central Line double lumen noted to right subclavian, patient reports having bs1 central line for 2 weeks and is on ongoing TPN for a total of 6 weeks to have a colonoscopy done due to fistula. 20:[address] nj 20:52 CT completed. Patient moved to radiology. vm2 20:52 CT Stone Protocol In Process Unspecified. EDMS 20:57 X-ray completed. Patient tolerated procedure well. ml 20:57 Patient moved back from radiology. ml 20:58 XRAY Chest (1 view) In Process Unspecified. EDMS 22:45 IV discontinued, bleeding controlled, No redness/swelling at site. Pressure dressing bs1 applied, IV infiltrated, New 22g started to right upper arm. 22:45 Inserted saline lock: 22 gauge in right upper arm, using aseptic technique. Blood bs1 cultures drawn. 23:23 Perez cath inserted, using sterile technique, 16 Fr., by tx, balloon inflated, to bs1 gravity drainage, urine specimen collected. 23:23 No provider procedures requiring assistance completed. bs1 04 01:32 Type And Screen Sent. bs1 Administered Medications: 12/24 20:31 Drug: NS 0.9% 1000 ml Route: IV; Rate: 1000 ml; Site: right forearm; 1 12/25 01:31 Follow up: IV Status: Completed infusion bs1 04 22:33 Drug: NS 0.9% 1000 ml Route: IV; Rate: 1 bolus; Site: right subclavian; bs1 12/25 01:31 Follow up: IV Status: Completed infusion bs1 04 23:14 Drug: NS 0.9% 1000 ml Route: IV; Rate: 125 ml/hr; Site: right upper arm; lp1 12/25 01:31 Follow up: IV Status: Order to discontinue infusion; IV Intake: 450ml bs1 04 23:20 Drug: Cefepime 1 grams Route: IVPB; Rate: 200 ml/hr; Infused Over: 30 mins; Site: left bp upper arm; 12/25 01:31 Follow up: IV Status: Infusion continued upon transfer bs1 04 23:55 Drug: Dopamine drip 5 mcg/kg/min - (DOPamine 400 mg, D5W 250 ml) Route: IV; Rate: bp calculated rate; Site: right subclavian; 12/25 01:30 Follow up: IV Status: Infusion continued upon transfer bs1 00:11 Drug: D5W 1000 ml, Sodium Bicarbonate 150 mEq Route: IV; Rate: 100 ml/hr; Site: right bp upper arm; 01:30 Follow up: IV Status: Infusion continued upon transfer bs1 Point of Care Testing: Blood Glucose: 12/24 20:15 Blood Glucose: 119 mg/dL; 1 Ranges: Intake: 12/25 01:31 IV: 450ml; Total: 450ml. bs1 Outcome: 12/24 22:21 ER care complete, transfer ordered by MD. alvarado 12/25 00:50 Condition: stable bs1 00:50 Transferred by ground EMS to [facility], Transfer form bs1 completed. X-rays sent w/ patient. Note: Report given to [facility] 00:50 Instructed on the need for admit. 01:32 Patient left the ED. bs1 Signatures: Dispatcher [employer] EDMS Serge Gonzales MD MD cha Lopez, Destiney Billings, Mateo em1 Sherley Ward, MARK RN lp1 Paulie, Tanner Herr, Dominga 2 Henok, [facility] Stan Muro RN RN bp Sarah Hwang RN RN bs1 Corrections: (The following items were deleted from the chart) 12/24 20:25 20:23 BP 64 / 39; Pulse 71bpm; Resp 16bpm; Pulse Ox 96% RA; Temp 97.7F Oral; 133.36 kg; bs1 Height 5 ft. 9 in.; BMI: 43.4; Pain 0/10; bs1 20:26 20:16 Presenting complaint: EMS states: "Patient called EMS for c/o Low blood pressure, bs1 upon scene patients blood pressure was 64/48, 2nd reading was 71/49, heart rate 70, BG 124, 97% room air, patient reports feeling weak, fatigued, denies chest pain, dizziness, or SOB" bs1 20:26 20:21 Transition of care: patient was not received from another setting of care. [facility] bs 20:26 20:21 Onset of symptoms was December 24, 2017 [place] [id number] 20:26 20:21 Care prior to arrival: Glucose check: 124 [place] [id number] 20:26 20:21 Method Of Arrival: EMS: [facility] bs1 bs1 12/25 01:10 12/24 21:54 BP 62 / 35; Pulse 78bpm; Resp 16bpm; Pulse Ox 99% RA; mt bs1 12/25 01:27 00:31 Reassessment: blood pressure 88/61 increased dopamine drip to 10mcg/kg, bs1 50.3ml/hr, patient tolerating well. Report given to [facility], informed to titrate drip PRN. bs1
--- NOTE | 2017-12-24 22:22 | EDPHYS ---
Physician Documentation [facility] Name: Rosio Jain Age: 62 yrs Sex: Female : 1955 Arrival Date: 12/24/2017 Time: 19:56 Bed 7 Private MD: ED Physician Serge Gonzales HPI: 12/24 20:34 This 62 yrs old Female presents to ER via EMS with complaints of Blood christiano Pressure Problem - low blood pressure. 20:34 weakness. Onset: The symptoms/episode began/occurred 3 day(s) ago. Severity of christiano symptoms: At their worst the symptoms were mild in the emergency department the symptoms are unchanged. The patient has not experienced similar symptoms in the past. Historical: - Allergies: 20:21 No Known Allergies; bs1 - Home Meds: 12/25 01:22 citalopram 20 mg tab 1 tab once daily [Active]; folic acid 1 mg Oral tab 1 tab once bs1 daily [Active]; furosemide 20 mg Oral tab 1 tab once daily [Active]; levothyroxine 150 mcg tab 1 tab once daily [Active]; metoprolol tartrate 75 mg twice a day. Oral tab 1 tab 2 times per day [Active]; potassium chloride 20 mEq Oral TbER 3 times per day [Active]; valsartan-hydrochlorothiazide 320-25 mg Oral tab 1 tab once daily [Active]; - PMHx: 12/24 20:21 Anxiety; Diabetes - NIDDM; Hypertension; Kidney stones; Thyroid problem; chronic bs1 bladder infections; fistula; - PSHx: 20:21 kidney surgery; Tubal ligation; Thyroidectomy; removed gland on forehead; bs1 - Immunization history:: Adult Immunizations up to date. - Social history:: Smoking status: Patient/guardian denies using tobacco. - Family history:: not pertinent. ROS: 20:34 Constitutional: Negative for fever, chills, and weight loss, Eyes: Negative for injury, christiano pain, redness, and discharge, ENT: Negative for injury, pain, and discharge, Neck: Negative for injury, pain, and swelling, Cardiovascular: Negative for chest pain, palpitations, and edema, Respiratory: Negative for shortness of breath, cough, wheezing, and pleuritic chest pain, Back: Negative for injury and pain, : Negative for injury, bleeding, discharge, and swelling, MS/Extremity: Negative for injury and deformity, Neuro: Negative for headache, weakness, numbness, tingling, and seizure, Psych: Negative for depression, anxiety, suicide ideation, homicidal ideation, and hallucinations, Allergy/Immunology: Negative for hives, rash, and allergies, Endocrine: Negative for neck swelling, polydipsia, polyuria, polyphagia, and marked weight changes, Hematologic/Lymphatic: Negative for swollen nodes, abnormal bleeding, and unusual bruising. 20:34 Abdomen/GI: Positive for nausea. 20:34 Skin: Positive for pallor. Exam: 20:34 Constitutional: This is a well developed, well nourished patient who is awake, alert, christiano and in no acute distress. Head/Face: Normocephalic, atraumatic. Eyes: Pupils equal round and reactive to light, extra-ocular motions intact. Lids and lashes normal. Conjunctiva and sclera are non-icteric and not injected. Cornea within normal limits. Periorbital areas with no swelling, redness, or edema. ENT: Nares patent. No nasal discharge, no septal abnormalities noted. Tympanic membranes are normal and external auditory canals are clear. Oropharynx with no redness, swelling, or masses, exudates, or evidence of obstruction, uvula midline. Mucous membranes moist. Neck: Trachea midline, no thyromegaly or masses palpated, and no cervical lymphadenopathy. Supple, full range of motion without nuchal rigidity, or vertebral point tenderness. No Meningismus. Chest/axilla: Normal chest wall appearance and motion. Nontender with no deformity. No lesions are appreciated. Cardiovascular: Regular rate and rhythm with a normal S1 and S2. No gallops, murmurs, or rubs. Normal PMI, no JVD. No pulse deficits. Respiratory: Lungs have equal breath sounds bilaterally, clear to auscultation and percussion. No rales, rhonchi or wheezes noted. No increased work of breathing, no retractions or nasal flaring. Abdomen/GI: Soft, non-tender, with normal bowel sounds. No distension or tympany. No guarding or rebound. No evidence of tenderness throughout. Back: No spinal tenderness. No costovertebral tenderness. Full range of motion. Female : Normal external genitalia. Skin: Warm, dry with normal turgor. Normal color with no rashes, no lesions, and no evidence of cellulitis. MS/ Extremity: Pulses equal, no cyanosis. Neurovascular intact. Full, normal range of motion. Psych: Awake, alert, with orientation to person, place and time. Behavior, mood, and affect are within normal limits. 20:34 Neuro: Orientation: is normal, appropriate for stated age, no acute changes, Mentation: is normal, appropriate for stated age, no acute changes, Memory: is normal, appropriate for stated age, no acute changes, Cranial nerves: grossly normal, is grossly normal based on the patient's age, no acute changes, Cerebellar function: is grossly normal based on the patient's age, Motor: moves all fours, Sensation: is normal, no obvious gross deficits, no acute changes, Gait: not tested. seizure activity, is not displayed by the patient. Vital Signs: 00:45 BP 88 / 49; Pulse 57; Pulse Ox 100% on R/A; bs1 19:54 BP 64 / 39; Pulse 71; Resp 16; Temp 97.7(O); Pulse Ox 96% on R/A; Weight 133.36 kg; bs1 Height 5 ft. 9 in. (175.26 cm); Pain 0/10; 20:11 BP 69 / 32; Pulse 64; Pulse Ox 97% ; Pain 0/10; bs1 20:30 BP 62 / 35; Pulse 78; Resp 16; Pulse Ox 99% on R/A; bs1 21:54 BP 133 / 116; Pulse 58; Pulse Ox 97% on R/A; bs1 22:00 BP 71 / 40; Pulse 55; Pulse Ox 100% on R/A; bs1 22:15 BP 73 / 32; Pulse 58; Pulse Ox 100% on R/A; bs1 22:39 BP 68 / 26; Pulse 54; Pulse Ox 100% on R/A; bs1 22:43 BP 88 / 52; Pulse 56; Pulse Ox 100% on R/A; bs1 23:00 BP 89 / 55; Pulse 59; Pulse Ox 100% on R/A; bs1 23:45 BP 94 / 52; Pulse 62; Pulse Ox 100% on R/A; bs1 12 00:00 BP 99 / 52; Pulse 70; Pulse Ox 100% on R/A; Pain 0/10; bs1 00:15 BP 74 / 59; Pulse 72; Pulse Ox 99% on R/A; [facility] 00:31 BP 88 / 61; Pulse 74; Pulse Ox 97% on R/A; [facility] 12/24 19:54 Body Mass Index 43.42 (133.36 kg, 175.26 cm) [facility] MDM: 12/24 20:19 Patient medically screened. [facility] 20:34 Data reviewed: vital signs, nurses notes, lab test result(s), EKG, radiologic studies, [facility] CT scan, plain films. 12/24 20:24 Order name: Basic Metabolic Panel; Complete Time: 22:03 [facility] 12/24 20:24 Order name: BNP; Complete Time: 22:03 [facility] 12/24 20:24 Order name: CBC with Diff; Complete Time: 22:03 [facility] 12/24 20:24 Order name: Ckmb; Complete Time: 22:03 [facility] 12/24 20:24 Order name: CPK; Complete Time: 22:03 [facility] 12/24 20:24 Order name: LFT's; Complete Time: 22:03 [facility] 12/24 20:24 Order name: Magnesium; Complete Time: 22:03 [facility] 12/24 20:24 Order name: PT-INR; Complete Time: 22:03 [facility] 12/24 20:24 Order name: Ptt, Activated; Complete Time: 22:03 [facility] 12/24 20:24 Order name: Troponin (emerg Dept Use Only); Complete Time: 22:03 [facility] 12/24 20:33 Order name: Lipase [facility] 12/24 20:33 Order name: Type And Screen [facility] 12/24 20:33 Order name: Lipase; Complete Time: 22:03 [facility] 12/24 20:34 Order name: Type and Screen [facility] 12/24 20:24 Order name: XRAY Chest (1 view); Complete Time: 22:03 [facility] 12/24 20:24 Order name: EKG; Complete Time: 20:24 [facility] 12/24 20:24 Order name: Cardiac monitoring; Complete Time: 20:27 [facility] 12/24 20:24 Order name: EKG - Nurse/Tech; Complete Time: 20:27 [facility] 12/24 20:33 Order name: CT Stone Protocol; Complete Time: 22:03 [facility] 12/24 20:40 Order name: Glucose, Ancillary Testing; Complete Time: 22:03 [facility] 12/24 22:19 Order name: ABG; Complete Time: 22:46 [facility] 12/24 22:34 Order name: Blood Culture Adult (2) [facility] 12/25 00:15 Order name: Urine Dipstick--Ancillary (enter results) [facility] 12/24 20:24 Order name: IV Saline Lock; Complete Time: 20:27 [facility] 12/24 20:24 Order name: Labs collected and sent; Complete Time: 20:27 [facility] 12/24 20:24 Order name: O2 Per Protocol; Complete Time: 20:27 [facility] 12/24 20:24 Order name: O2 Sat Monitoring; Complete Time: 20:27 [facility] 12/24 20:33 Order name: Perez; Complete Time: 01:32 christiano Administered Medications: 20:31 Drug: NS 0.9% 1000 ml Route: IV; Rate: 1000 ml; Site: right forearm; [facility] 12/25 01:31 Follow up: IV Status: Completed infusion [facility] 12/24 22:33 Drug: NS 0.9% 1000 ml Route: IV; Rate: 1 bolus; Site: right subclavian; [facility] 12/25 01:31 Follow up: IV Status: Completed infusion [facility] 12/24 23:14 Drug: NS 0.9% 1000 ml Route: IV; Rate: 125 ml/hr; Site: right upper arm; [facility] 12/25 01:31 Follow up: IV Status: Order to discontinue infusion; IV Intake: 450ml [facility] 12/24 23:20 Drug: Cefepime 1 grams Route: IVPB; Rate: 200 ml/hr; Infused Over: 30 mins; Site: left bp upper arm; 12/25 01:31 Follow up: IV Status: Infusion continued upon transfer [facility] 12/24 23:55 Drug: Dopamine drip 5 mcg/kg/min - (DOPamine 400 mg, D5W 250 ml) Route: IV; Rate: bp calculated rate; Site: right subclavian; 12/25 01:30 Follow up: IV Status: Infusion continued upon transfer [facility] :11 Drug: D5W 1000 ml, Sodium Bicarbonate 150 mEq Route: IV; Rate: 100 ml/hr; Site: right bp upper arm; 01:30 Follow up: IV Status: Infusion continued upon transfer [facility] Point of Care Testing: Blood Glucose: 12/24 20:15 Blood Glucose: 119 mg/dL; lp1 Ranges: Critical Glucose Levels:Adult <50 mg/dl or >400 mg/dl <40 mg/dl or >180 mg/dl Disposition: 12/24/17 22:21 Transfer ordered to [facility]. 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 - Reason for transfer: Higher level of care. - [facility] physician [facility]. - Condition is Serious. - Problem is new. - Symptoms have improved. Signatures: Dispatcher [employer] EDSerge Crockett MD MD cha Pena, Laura, RN RN lp1 Stan Muro RN RN bp Sarah Hwang RN RN bs1
[2017-12-24 22:42] LABS: Arterial Blood Carboxyhemoglob 1.4 % (0-1.5); Blood Gas Oxyhemoglobin 94.3 % (94-97); Blood O2 Saturation 96.4 % (92-98.5)
[2017-12-24] MEDS ORDERED: CEFEPIME 1 GM/100 ML BAG IV ONE (23:12)
[2017-12-24] MEDS ORDERED: DOPAMINE/D5W 400 MG/250 ML BAG IV ONE (23:37)
[2017-12-24] MEDS ORDERED: D5W 1,000 ML IV ONE (23:38)
[2017-12-24] MEDS ORDERED: SODIUM BICARB 50 MEQ/50ML VIAL ONE (23:38)
[2017-12-25 00:51] LABS: Urine Blood 3+ (NEG); Urine Glucose NEGATIVE (NEG); Urine Protein 2+ (NEG); Urine pH 7.5 (5.0-7.0)
[2017-12-25 01:40] VITALS: TEMP 97.7
[2017-12-25 01:53] VITALS: BP 88/61; O2SAT 97
--- NOTE | 2017-12-25 07:03 | EKG ---
Test Date: 2017-12-24 Test Time: 20:20:05 Clay Miner: JEWEL MEASUREMENT RESULTS: Intervals: Rate: 60 MN: 174 QRSD: 90 QT: 424 QTc: 424 [place]: P: 36 MN: 174 QRS: 20 T: 31 INTERPRETIVE STATEMENTS: Normal sinus rhythm Normal ECG Compared to ECG 10/20/2017 16:47:35 Sinus arrhythmia no longer present Left ventricular hypertrophy no longer present Electronically Signed On 12-25-17 07:02:32 CDT by Clay Cronin
== END 2017-12-25 01:32 | disposition short-term general hospital (02) ==
LOC: ER 19:54
DX: I95.9 Hypotension, unspecified (principal); N17.9 Acute kidney failure, unspecified; D64.9 Anemia, unspecified; K57.32 Diverticulitis of large intestine without perforation or abscess without bleeding; R63.0 Anorexia; E66.9 Obesity, unspecified; E87.2 Acidosis; J47.9 Bronchiectasis, uncomplicated; F41.9 Anxiety disorder, unspecified; E07.9 Disorder of thyroid, unspecified
CPT/HCPCS: 36415; 51702; 71045; 74176; 76377; 80048; 80076; 81003; 82550; 82553; 82805; 82962; 83690; 83735; 83880; 84484; 85025; 85610; 85730; 86850; 86900; 86901; 87040; 87205; 93005; 99285; J0692; J1265; J7030

== ENCOUNTER 2018-02-03 13:33 | Emergency (ER) | payer OTHER ==
--- OUTSIDE RECORDS SUMMARY | 2018-02-03 13:35 | XMS REPORT | Clinical Summary ---
:1955 Author Organization [facility] Address [address] [place] [address] Care Team Providers Name Role Phone Arthur [...] 2 (two) times a day. (apply sparingly) levothyroxine Take 175 mcg by Active (SYNTHROID, [...] (six) hours as needed for moderate pain. pantoprazole Take 1 tablet (40 30 tablet 0 12/06/19 (PROTONIX) 40 MG EC mg total) by 18 018 tablet mouth daily for 30 days. levoFLOXacin Take 1 tablet 5 tablet 0 12/06/19 Discontinued (LEVAQUIN) 500 MG (500 mg total) by 18 018 tablet mouth daily for 5 days. HYDROcodone-acetaminop Take 1 tablet by 12/06/19 hen (NORCO) 5-325 mg mouth every 6 18 018 per tablet (six) hours as needed for moderate pain for up to 30 days. Max Daily Amount: 4 tablets SUPREP BOWEL PREP KIT Take 2 Bottles 354 mL 0 12/09/19 Discontinued 17.5-3.13-1.6 gram (354 mL total) by 18 018 recon soln mouth once for 1 dose. Take as directed by physician colchicine 0.6 mg Take 1 tablet 60 tablet 0 12/17/19 tablet (0.6 mg total) by 18 018 mouth 2 (two) times a day for 30 days. predniSONE (DELTASONE) Taper, take 1 tab 5 tablet 0 12/17/19 20 mg tablet (20mg) x 3 days, 18 018 then 0.5 tab (10mg) x 3 days, then stop hydroCHLOROthiazide Take 1 capsule 30 capsule 0 12/18/19 (MICROZIDE) 12.5 mg (12.5 mg total) 18 018 capsule by mouth daily for 30 days. Active Problems Problem Noted Date Morbid obesity with BMI of 50.0-59.9, adult 12/12/2017 Acute renal failure 12/03/2017 Colovesical fistula 10/20/2017 Encounters Date Type Specialty Care Team Description 12/23/2017 Orders Only General Surgery Mateo Quinones MD 12/18/2017 Patient Outreach Zach Armstrong, Jovon 12/15/2017 Procedure Pass General Surgery 12/09/2017 Hospital Encounter General Surgery Mateo Quinones Colovesical - MD Alok fistula (Primary 12/16/2017 Dx) 12/08/2017 Orders Only General Surgery Mateo Quinones MD 12/03/2017 Hospital Encounter General Internal [facility] Acute renal failure, unspecified acute renal failure type (Primary Dx); - Medicine MD Savita Urinary tract infection with hematuria, site unspecified; 12/05/2017 George Jacob Colovesical MD Smitha Paulson Thuyen T., MD 12/03/2017 Telephone General Surgery Sheryl Marcos [employer]-C 12/02/2017 Orders Only General Surgery Mateo Quinones MD 12/01/2017 Pre-Admit Testing Pre-Admission Testing Mateo Quinones Preop examination (Primary Dx); Appointment MD Alok Morbid obesity; Liver disease 11/18/2017 Orders Only General Surgery Sheryl Marcos, [employer]COM[employer]-C 11/13/2017 Office Visit General Surgery Mateo Quinones Rectovaginal fistula ( Primary Dx); MD Alok Morbid obesity with BMI of 45.0-49.9, adult 11/13/2017 Orders Only General Surgery RandallguruSheryl logan, [employer] INCOME-C 11/13/2017 Orders Only General Surgery RandallguruSheryl logan [employer]COME-C 11/13/2017 Orders Only General Surgery Alagugurusamy, Colovesical Sheryl fistula (Primary [place], [employer] FIX[employer] INCOME-C Dx) 10/22/2017 Anesthesia Event Gastroenterology Chapo Perez MD 10/22/2017 Procedure Pass Gastroenterology 10/22/2017 Surgery Gastroenterology Mateo Quinones COLONOSCOPY MD Alok 10/20/2017 Hospital Encounter General Surgery JacobElizabeth Colovesical fistula (Primary Dx); - MD Harley Idiopathic pulmonary fibrosis 10/24/2017 after 02/02/2017 Family History Patient is adopted Relation Name [...] 12/05/2017 6:00 AM CDT Plan of Treatment Health Maintenance Due Date Last Done Comments CERVICAL CANCER SCREENING 1977 BREAST CANCER SCREENING 2006 COLON CANCER SCREENING 2006 SHINGRIX VACCINE (#1) 2006 ZOSTER VACCINE 2016 INFLUENZA VACCINE 04/15/2018 Implants Implanted Type Area Metal Bonding Helper Device Expiration Model / Identifier Date Serial / Lot Catheter Cv Powerline Dlmn Al 6fr - [id number] Surgical N/A: N/A BARD ACCESS [id number] / Implanted: 12/11/2017 (Quantity not on file) Implants; SYSTEMS / Expanders; Extenders; Surgical Wires Procedures Procedure Name Priority Date/Time Associated Comments Diagnosis OR CRITICAL CARE, E/M Routine 12/03/2017 1:06 Results for this 30-74 MINUTES PM CDT procedure are in the results section. COLONOSCOPY 10/22/2017 8:00 Colovesical fistula AM [facility]OSHER BUTCHER ECHOCARDIOGRAM 2D Routine 10/21/2017 8:12 Results for this COMPLETE W MMODE PM KOSHER BUTCHER procedure are in SPECTRAL COLOR DOPPLER the results (28172) section. CONSULT TO OSTOMY CARE Routine 10/21/2017 5:38 NURSE AM KOSHER BUTCHER after 02/02/2017 Results [facility] lab papsmear custom order (12/18/2017)POC glucose (12/16/2017 7:47 AM) Only the most recent of30 resultswithin the time period is included. Component Value Ref Range POC glucose 112 (H) 65 - 99 mg/dL Comment: [facility] Notified RN Meter ID: [id number] Pharmacy Laboratory Technician: Mary Lou Elizabeth Specimen Performing Laboratory [facility] DEPARTMENT OF PATHOLOGY AND GENOMIC MEDICINE [address] [place] [address] Estimated GFR (12/16/2017 4:00 AM)Only the most [...] and Americans. Specimen Performing Laboratory Plasma specimen [facility] DEPARTMENT OF PATHOLOGY AND [address] [address] Phosphorus level (12/16/2017 4:00 AM)Only the most recent of6 resultswithin the time period is included. Component Value Ref Range Phosphorus 2.6 2.4 - 4.5 mg/dL Specimen Performing Laboratory Plasma specimen [facility] DEPARTMENT PATHOLOGY AND [address] [address] Magnesium level (12/16/2017 4:00 AM)Only the most recent of7 resultswithin the time period is included. Component Value Ref Range Magnesium 2.0 1.6 - 2.4 mg/dL Specimen Performing Laboratory Plasma specimen [facility] PATHOLOGY AND [address] [address] Basic metabolic panel (12/16/2017 4:00 AM)Only the [...] 10.2 mg/dL Specimen Performing Laboratory Plasma specimen [facility] DEPARTMENT PATHOLOGY AND [address] [address] CBC with platelet and differential (12/16/2017 3:40 [...] (promyelocytes, myelocytes, metamyelocytes) Specimen Performing Laboratory Blood [facility] DEPARTMENT OF PATHOLOGY AND GENOMIC MEDICINE [address] [place] [address] Uric acid level (12/14/2017 4:00 AM) Component Value Ref Range Uric acid 8.6 (H) 2.4 - 5.7 mg/dL Specimen Performing Laboratory Plasma specimen [facility] DEPARTMENT OF PATHOLOGY AND GENOMIC MEDICINE [address] [place] [address] XR Knee 3 Vw Left (12/13/2017 3:42 PM) Specimen Performing Laboratory [facility] [address] [place] [address] Narrative EXAMINATION:XR KNEE 3 VW LEFT CLINICAL HISTORY:FOCAL TENDERNESSKNEE COMPARISON:No Prior IMPRESSION: 1.Severe tricompartmental osteoarthritis of the knee is noted with bone-on- bone contact in the medial and patellofemoral compartments. Chondrocalcinosis in the lateral compartment. No joint effusion. [facility]-[id number] Procedure Note Interface, Radiology Results Incoming - 12/13/2017 8:53 PM CDT EXAMINATION: XR KNEE 3 VW LEFT CLINICAL HISTORY: FOCAL TENDERNESS KNEE COMPARISON: No Prior IMPRESSION: 1. Severe tricompartmental osteoarthritis of the knee is noted with bone-on- bone contact in the medial and patellofemoral compartments. Chondrocalcinosis in the lateral compartment. No joint effusion. [facility]-[id number] IR Tunneled Central Line Placement (12/11/2017 11:24 AM) Specimen Performing Laboratory [facility] [address] [place] [address] Narrative Performing Radiologist Harman Grier MD Assistants None. Anesthesia Type Moderate sedation was administered by the procedure nurse and monitored by the procedure physician for a total rmgl-hm-ppum sedation time of 14 minutes. Lidocaine 1% [...] then returned to the venotomy site. A 6-Polish Powerline tunneled central venous catheter was then [...] report. Impression: Successful fluoroscopic-guided placement of a 6-Polish Powerline tunneled central venous catheter via the right external jugular vein. The catheter tip lies at the right atrium/superior vena cava junction and is ready for use. [facility]-[id number] Procedure Note [facility], Radiology Results Incoming - 12/11/2017 11:34 AM CDT Performing Radiologist Harman Grier MD Assistants None. Anesthesia Type Moderate sedation was administered by the procedure nurse and monitored by the procedure physician for a total vmsw-fo-ormy sedation time of 14 minutes. Lidocaine 1% [...] then returned to the venotomy site. A 6-Polish Powerline tunneled central venous catheter was then [...] report. Impression: Successful fluoroscopic-guided placement of a 6-Polish Powerline tunneled central venous catheter via the right external jugular vein. The catheter tip lies at the right atrium/superior vena cava junction and is ready for use. [facility]-[id number] Type and screen (12/10/2017 3:42 AM)Only the most recent of2 resultswithin the time period is included. Component Value Ref Range ABO grouping B Rh type POS Antibody screen (gel) NEG Specimen Performing Laboratory Blood [facility] DEPARTMENT OF PATHOLOGY AND [facility] MEDICINE [address] [place] [address] Partial thromboplastin time, activated (12/09/2017 5:40 PM)Only the most recent of7 resultswithin the time period is included. Component Value Ref Range PTT 30.4 23.0 - 36.0 sec Comment: PTT therapeutic range for unfractionated heparin is 61.0-112.0 seconds which corresponds to Anti-Xa 0.3-0.7 U/ml. Specimen Performing Laboratory Blood [facility] DEPARTMENT OF PATHOLOGY AND [facility] MEDICINE [address] [place] [address] Prothrombin time with INR (12/09/2017 5:40 PM)Only [...] vein thrombosis/pulmonary embolism. Specimen Performing Laboratory Blood [facility] DEPARTMENT OF PATHOLOGY AND GENOMIC MEDICINE [address] [place] [address] Ionized calcium (12/09/2017 5:40 PM)Only the most recent of2 resultswithin the time period is included. Component Value Ref Range pH 7.49 Ionized calcium 1.10 (L) 1.11 - 1.32 mmol/L Specimen Performing Laboratory Plasma specimen [facility] DEPARTMENT OF PATHOLOGY AND [facility] MEDICINE [address] [place] [address] Total iron binding capacity (12/05/2017 5:15 AM) Component Value Ref Range Iron level 42 37 - 145 ug/dL Iron binding capacity 228 200 - 400 ug/dL % Saturation 18.4 15.0 - 38.0 % Specimen Performing Laboratory Plasma specimen [facility] DEPARTMENT OF PATHOLOGY AND [facility] MEDICINE [address] [place] [address] Vitamin D 25 hydroxy level (12/05/2017 5:15 [...] for alternative methods. Specimen Performing Laboratory Blood [facility] DEPARTMENT OF PATHOLOGY AND [facility] MEDICINE [address] [place] [address] Parathyroid hormone (12/05/2017 5:15 AM) Component Value Ref Range PTH 121 (H) 15 - 65 pg/mL Specimen Performing Laboratory Blood [facility] DEPARTMENT OF PATHOLOGY AND [facility] MEDICINE [address] [place] [address] Ferritin level (12/05/2017 5:15 AM) Component Value Ref Range Ferritin level 51 13 - 150 ng/mL Specimen Performing Laboratory Plasma specimen [facility] DEPARTMENT OF PATHOLOGY AND [facility] MEDICINE [address] [place] [address] Hepatic function panel (12/05/2017 5:15 AM)Only the most recent of2 resultswithin the time period is included. Component Value Ref Range Albumin 2.8 (L) 3.5 - 5.0 g/dL Total bilirubin <0.2 0.0 - 1.2 mg/dL Bilirubin direct <0.2 0.0 - 0.3 mg/dL Alkaline phosphatase 62 35 - 104 U/L Protein 7.4 6.3 - 8.3 g/dL Comment: [place] 4.6-7.0 g/dL 1 week 4.4-7.6 g/dL 7 months-1year5.1-7.3 g/dL 1-2 years5.6-7.5 g/dL >3 years6.0-8.0 g/dL 18-150 6.3-8.3 g/dL ALT 9 5 - 50 U/L AST 19 10 - 35 U/L Specimen Performing Laboratory Plasma specimen [facility] DEPARTMENT OF PATHOLOGY AND GENOMIC MEDICINE [address] [place] [address] Gastrointestinal panel (12/04/2017 10:00 AM)Only the most [...] Specimen Performing Laboratory Stool - Nonpreserved [facility] OF PATHOLOGY AND [facility] MEDICINE [address] [place] [address] Troponin (12/04/2017 6:38 AM) Component Value Ref Range Troponin <0.30 0.00 - 0.30 ng/mL Comment: 0.30 - 1.49 ng/mlMay indicate increased risk of acute coronary syndrome. >=1.5 ng/mlConsistent with acute myocardial infarction. The diagnostic value of a single normal or non-diagnostic result is questionable.Serial samples at 2-6 hour intervals are required to rule out acute myocardial injury. Specimen Performing Laboratory Plasma specimen [facility] DEPARTMENT OF PATHOLOGY AND GENOMIC MEDICINE [address] [place] [address] Thyroid stimulating hormone (12/04/2017 6:38 AM)Only the most recent of2 resultswithin the time period is included. Component Value Ref Range TSH 5.91 (H) 0.27 - 4.20 uIU/mL Specimen Performing Laboratory Plasma specimen [facility] DEPARTMENT OF PATHOLOGY AND GENOMIC MEDICINE [address] [place] [address] T4, free (12/04/2017 6:38 AM) Component Value Ref Range T4, free 1.2 0.9 - 1.7 ng/dL Specimen Performing Laboratory Plasma specimen [facility] DEPARTMENT OF PATHOLOGY AND [facility] MEDICINE [address] [place] [address] Lipid panel (12/04/2017 6:38 AM)Only the most recent of2 resultswithin the time period is included. Component Value Ref Range Cholesterol 120 <200 mg/dL Triglycerides 251 (H) <150 mg/dL HDL cholesterol 30 (L) >40 mg/dL LDL cholesterol 51Comment: Result obtained by direct LDL <100 mg/dL measurement Lipid panel interpretation SeeBelow Comment: Total Cholesterol (mg/dL) <200 Desirable 271-224Lsuzijvtii-aoix >=240High Triglycerides (mg/dL) <150 Normal 327-646Sheusokeaj-yyrq 200-499High >=500Very high HDL Cholesterol (mg/dL) <40Low (male) <40Low (female) LDL Cholesterol (mg/dL) <100 Optimal 100-129Near or above optimal 241-952Gcraxuqpfz-dahu 160-189High >=190Very high Risk Catergories that modify [...] (>=200 mg/dL) Specimen Performing Laboratory Plasma specimen [facility] DEPARTMENT OF PATHOLOGY AND GENOMIC MEDICINE [address] [place] [address] Comprehensive metabolic panel (12/04/2017 6:38 AM)Only the [...] Protein 7.1 6.3 - 8.3 g/dL Comment: 4.6-7.0 g/dL [...] 1.2 mg/dL Specimen Performing Laboratory Plasma specimen [facility] DEPARTMENT OF PATHOLOGY AND GENOMIC MEDICINE [address] [place] [address] CT Renal Stone Protocol (12/03/2017 8:15 PM) Specimen Performing Laboratory [address] RENAL STONE PROTOCOL CLINICAL INDICATION:acute [...] of 10/23/2017. 3. Hepatosplenomegaly. Chronic liver disease. [facility]-[id number] Procedure Note [facility], Radiology Results Incoming - 12/03/2017 8:52 PM [...] of 10/23/2017. 3. Hepatosplenomegaly. Chronic liver disease. [facility]-[id number] C difficile toxin (12/03/2017 4:51 PM)Only the most recent of2 resultswithin the time period is included. Component Value Ref Range Clostridium difficile toxin No Clostridium difficle toxin present Comment: Specimen Information Specimen Source: Stool Specimen Site: Nonpreserved Specimen Performing Laboratory Stool - Nonpreserved [facility] DEPARTMENT OF PATHOLOGY AND GENOMIC MEDICINE [address] [place] [address] [place] Renal (12/03/2017 3:32 PM)Only the most recent of2 resultswithin the time period is included. Specimen Performing Laboratory [facility] [address] [place] [address] Narrative EXAMINATION:US RENAL CLINICAL HISTORY:HYDRONEPHROSIS COMPARISON:None. FINDINGS: [...] IMPRESSION: Bilateral nephrolithiasis with mild left pelviectasis.. [facility]-[id number] Procedure Note Interface, Radiology Results Incoming - [...] IMPRESSION: Bilateral nephrolithiasis with mild left pelviectasis.. [facility]-[id number] Urinalysis screen and microscopy, with reflex to [...] SEE COMMENTComment: Footnote--------- Specimen Performing Laboratory Urine [facility] DEPARTMENT OF PATHOLOGY AND GENOMIC MEDICINE [address] [place] [address] Gram stain (12/03/2017 2:10 PM)Only the most recent of2 resultswithin the time period is included. Component Value Ref Range Gram stain result Few WBC's Many Gram negative rods Many Gram positive rods Many Gram positive cocci in pairs Comment: Specimen Information Specimen Source: Urine Specimen Site: Clean catch Specimen Performing Laboratory Urine [facility] DEPARTMENT OF PATHOLOGY AND GENOMIC MEDICINE [address] [place] [address] Urine culture (12/03/2017 2:10 PM)Only the most recent of3 resultswithin the time period is included. Component Value Ref Range Urine culture isolate Mixed Gram positive medina >10-5 cfu/ml (A) Comment: Specimen Information Specimen Source: Urine Specimen Site: Clean catch Specimen Performing Laboratory Urine [facility] DEPARTMENT OF PATHOLOGY AND GENOMIC MEDICINE [address] [place] [address] Manual differential (12/03/2017 2:00 PM) Component Value [...] Enlarged platelets Moderate (A) Specimen Performing Laboratory [facility] DEPARTMENT OF PATHOLOGY AND GENOMIC MEDICINE [address] [place] [address] CRITICAL CARE (12/03/2017 1:06 PM) Eryn May MD 12/05/20178:21 AM Critical Care Performed [...] Range Ventricular rate 73 Atrial rate 73 OR interval 152 QRSD interval 84 QT interval 400 QTC interval 440 P axis 1 46 QRS axis 1 21 T wave axis 35 EKG impression Normal sinus rhythm-Normal ECG- Specimen Performing Laboratory [facility] MUSE [address] [place] [address] CBC hemogram (12/01/2017 1:06 PM) Component Value [...] 0.00 /100 WBC Specimen Performing Laboratory Blood [facility] DEPARTMENT OF PATHOLOGY AND GENOMIC MEDICINE [address] [place] [address]779 Hemoglobin A1c (12/01/2017 1:06 PM) Component Value [...] type 1 diabetes. Specimen Performing Laboratory Blood [facility] DEPARTMENT OF PATHOLOGY AND GENOMIC MEDICINE [address] [place] [address] URINALYSIS, COMPLETE, WITH REFLEX TO CULTURE (11/13/2017 [...] - 1.00 U/mL Specimen Performing Laboratory Blood [facility] DEPARTMENT OF PATHOLOGY AND GENOMIC MEDICINE [address] [place] [address] CT Abdomen Pelvis W Contrast (10/23/2017 5:53 AM) Specimen Performing Laboratory [facility] [address] [place] [address] Narrative EXAMINATION:CT ABDOMEN PELVIS W CONTRAST CLINICAL [...] irregular liver possibly reflecting chronic liver disease. [facility]-[id number] Procedure Note Hm Interface, Radiology Results Incoming - 10/23/2017 6:10 AM KOS[facility]CHER EXAMINATION: CT ABDOMEN PELVIS W CONTRAST CLINICAL [...] irregular liver possibly reflecting chronic liver disease. [facility]-[id number] Echocardiogram complete w contrast and 3D if needed (10/21/2017 8:12 PM) Specimen Performing Laboratory [facility] [address] [place] [address] Narrative Echocardiography Report [address] [facility] [address], [place] [id number] Pat.Name:Susan WADE.ID:[id number] .Date: 10/21/2017Refer.MD:ELIZABETH JACOB MD Exam Time: 6:49:00 PMStudy Type:Routine Echo Height:69inWeight: 308lb BSA: 2.48 m2 DOBAge:1955,62Y Sex: FEMALEBP:126/69 HR:103 bpm Sonogrphr: FIOR Kingsley Pat. Stat.:Inpatient Room:[address] Study Status:Final Echo Event ID:[id number] Order ID:[id number] Reason for Study:Perioperative Eval - Routine perioperative [...] RAPof 5 mmHg. MEASUREMENTS: 2D Parasternal Long Hankamer LVOT 1.9 cmLA Ds3.4 cm LVIDd4.6 cmIndex 1.9 cm/m Ao An2.1 cm LVIDs2.6 cmAo Rtd 2.9 cm Index1.2 cm/m LV%fs 43.5 % LV Odgg662.5 g(87-129) IVSd 0.8 cmLVM Index 43.8 g/m2 LVPWd0.7 cmRWT0.3 LA Sng Plane LA Area 25.3 cm2(8.8-23.4) LA Vol97.9 ml Index39.5 ml/m LA LngAx 5.3 cm Signed 10/22/2017 08:44 AM Yves Zaragoza MD Procedure Note Interface, Radiology Results In - 10/22/2017 8:44 AM [facility] Echocardiography Report [address] [place] [address] Pat.Name: ROSIO WADE Pat.ID: [id number] .Date: 10/21/2017 Refer.MD: ELIZABETH JACOB MD Exam Time: 6:49:00 PM Study Type:Routine Echo Height: 69in Weight: 308lb BSA: 2.48 m2 Age: 13 1955,62Y Sex: FEMALE BP: 126/69 HR: 103 bpm Sonogrphr: FIOR Kingsley Pat. Stat.:Inpatient Room: [place] [address] A Study Status:Final Echo Event ID:[id number] Order ID: [id number] Reason for Study:Perioperative Eval - Routine perioperative [...] of 5 mmHg. MEASUREMENTS: 2D Parasternal Long Hankamer LVOT 1.9 cm LA Ds 3.4 cm [...] Portable (10/21/2017 1:33 PM) Specimen Performing Laboratory [facility] [address] [place] [address] Narrative EXAMINATION:XR CHEST 1 VW PORTABLE CLINICAL [...] 4.Regional skeletal structures are within normal limits. [facility]-[id number] Procedure Note Hm Interface, Radiology Results Incoming - 10/21/2017 1:38 PM [facility] EXAMINATION: XR CHEST 1 VW PORTABLE CLINICAL [...] Regional skeletal structures are within normal limits. [facility]-[id number] ECG 12 lead (10/21/2017 1:11 PM) Component Value Ref Range Ventricular rate 96 Atrial rate 96 OR interval 138 QRSD interval 82 QT interval 372 QTC interval 469 P axis 1 7 QRS axis 1 3 T wave axis 45 EKG impression Normal sinus rhythm-Minimal voltage criteria for LVH, may be normal variant-Nonspecific ST and T wave abnormality- Specimen Performing Laboratory [facility] MUSE [address] [place] [address] Salmonella/shigella culture (10/21/2017 9:09 AM) Component Value Ref Range Salmonella/shigella culture isolate No Aeromonas isolated Comment: Specimen Information Specimen Source: Stool Specimen Site: Nonpreserved Specimen Performing Laboratory Stool - Nonpreserved [facility] DEPARTMENT OF PATHOLOGY AND GENOMIC MEDICINE [address] [place] [address] Anti Xa, unfractionated (10/21/2017 2:53 AM)Only the most recent of2 resultswithin the time period is included. Component Value Ref Range Anti Xa, unfractionated 1.01 (H) 0.30 - 0.70 U/mL Comment: Therapeutic Range:0.30 - 0.70 U/mL XAUFH results called to and read back by MIMI KOCH/Tres (name/location) at 10/21/201704:55 (date/time) by CS1_. Specimen Performing Laboratory Blood [facility] DEPARTMENT OF PATHOLOGY [facility] MEDICINE [address] [place] [address] Narrative XAUFH added on per [employer]/PHARM Urine eosinophils (10/21/2017 1:30 AM) Component Value Ref Range Eosinophils, urine PRESENT (A) Specimen Performing Laboratory Urine [facility] DEPARTMENT OF PATHOLOGY [facility] MEDICINE [address] [place] [address] Urea nitrogen, urine, random (10/21/2017 1:30 AM) Component Value Ref Range Urea nitrogen, urine, random 307 mg/dL Specimen Performing Laboratory Urine [facility] DEPARTMENT OF PATHOLOGY [facility] MEDICINE [address] [place] [address] Sodium level, urine, random (10/21/2017 1:30 AM) Component Value Ref Range Sodium, urine, random 91 mEq/L Specimen Performing Laboratory Urine [facility] DEPARTMENT OF PATHOLOGY [facility] MEDICINE [address] [place] [address]24 Protein, urine, random (10/21/2017 1:30 AM) Component Value Ref Range Protein, urine random 69 mg/dL Specimen Performing Laboratory Urine [facility] DEPARTMENT OF PATHOLOGY [facility] MEDICINE [address] [place] [address] 47033 Creatinine level, urine, random (10/21/2017 1:30 AM) Component Value Ref Range Creatinine, urine, random 24 mg/dL Specimen Performing Laboratory Urine [facility] DEPARTMENT OF PATHOLOGY [facility] MEDICINE [address] [place] [address] Chloride level, urine, random (10/21/2017 1:30 AM) Component Value Ref Range Chloride, urine, random 69 mEq/L Specimen Performing Laboratory Urine [facility] DEPARTMENT OF PATHOLOGY [facility] MEDICINE [address] [place] [id number] T4 (10/21/2017) Component Value Ref Range T4 6.8 4.5 - 11.7 ug/dL Specimen Performing Laboratory Plasma specimen [facility] DEPARTMENT OF PATHOLOGY [facility] GENOMIC MEDICINE [address] [place] [id number] Chest External Study (10/20/2017 6:55 PM) Specimen Performing Laboratory [facility] [address] [place] [address] Narrative This exam was not acquired at a [facility] facility and has not been interpreted by a [facility] Provider.The exam was imported into our imaging system for comparisons purposes. XR Chest External Study (10/20/2017 5:10 PM) Specimen Performing Laboratory [facility] [address] [place] [address] Narrative This exam was not acquired at a [facility] facility and has not been interpreted by a [facility] Provider.The exam was imported into our imaging system for comparisons purposes. after 02/02/2017 Insurance Payer Benefit Plan / Group Subscriber ID Type Phone Address [employer] OPEN ACCESS/NETWORK xxxxxxxxxxx [facility] [place]IC[place] PART A AND B xxxxxxxxxx Medicare [place], [place] Home: [address] [phone] [place], [place] [id number]
--- OUTSIDE RECORDS SUMMARY | 2018-02-03 13:36 | XMS REPORT | Clinical Summary ---
:1955 Author Organization [facility] Address [address] [place] [address] Phone Care Team Providers Name Role Phone [...] Emergency Emergency Medicine Candida Bosch DO after 02/02/2017 Social History Tobacco Use Types Packs/Day Years Used Date Never Smoker Sex Assigned at Date Recorded Not on file Last Filed Vital Signs Vital Sign Reading Time Taken Blood Pressure 113/59 10/20/2017 12:24 PM [employer] Pulse 75 10/20/2017 12:24 PM [employer] Temperature 37.2 C (99 F) 10/20/2017 12:24 PM [employer] Respiratory Rate 18 10/20/2017 12:24 PM [employer] Oxygen Saturation 97% 10/20/2017 12:24 PM [employer] Inhaled Oxygen Concentration - - Weight 139.7 kg (308 lb) 10/20/2017 12:24 PM [employer] Height 175.3 cm (5' 9") 10/20/2017 12:24 PM [employer] Body Mass Index 45.48 10/20/2017 12:24 PM [employer] Plan of Treatment Not on file Results Not on fileafter 02/02/2017
--- OUTSIDE RECORDS SUMMARY | 2018-02-03 13:36 | XMS REPORT ---
:1955 [facility] Address [address] [place] [address] [address] [place] [address] Care Team Providers Name Role Phone LILA MULLEN Unavailable Unavailable Problems This patient has no known problems. Allergies, Adverse Reactions, Alerts This patient has no known allergies or adverse reactions. Medications This patient has no known medications. Results Test Description Test Time Test Comments Text Results Atomic Results Result Comments STOOL CULTURE + SHIGA TOXIN 2016-11-06 10:48:00 Test Item Value Reference Range Comments CULTURE (BEAKER) (test iuez=3400) No Salmonella, Shigella or Campylobacter isolated Unable to test for Shiga Toxin 1 due to insufficient growth of specimen.Unable to test for Shiga Toxin 2 due to insufficient growth of specimen.STOOL PATH [id number] 13:49:00 Test Item Value Reference Range Comments PATHOGEN EXAM CHARGED (BEAKER) (test umia=2958) Done POCT-GLUCOSE [id number] 11:36:00 Test Item Value Reference Range Comments POC-GLUCOSE METER (BEAKER) 106 mg/dL 70-[address] [facility] [address] [facility] (test baot=5891) [facility] [address] POCT-GLUCOSE [id number] 08:21:00 Test Item Value Reference Range Comments POC-GLUCOSE METER (BEAKER) 110 mg/dL 70-[address] [facility] [address] [facility] (test yrkx=5189) [facility] [address] [id number] 05:17:00 Test Item Value Reference Range Comments PHOSPHORUS (BEAKER) (test pyyw=446) 3.6 mg/dL 2.3-4.7 [id number] 05:17:00 Test Item Value Reference Range Comments MAGNESIUM (BEAKER) (test xzmd=384) 1.6 mg/dL 1.6-2.6 BASIC METABOLIC [id number] 05:17:00 Test Item Value Reference Range Comments SODIUM (BEAKER) (test 136 meq/L 136-145 gwwf=525) POTASSIUM (BEAKER) (test 4.1 meq/L 3.5-5.1 hlss=178) CHLORIDE (BEAKER) (test 108 meq/L 98-107 jmzx=116) CO2 (BEAKER) (test 19 meq/L 22-29 oxes=446) BLOOD UREA NITROGEN 17 mg/dL 7-21 (BEAKER) (test ynks=779) CREATININE (BEAKER) (test 0.87 mg/dL 0.57-1.25 mbes=344) GLUCOSE RANDOM (BEAKER) 89 mg/dL 70-105 (test wnrh=039) CALCIUM (BEAKER) (test 8.9 mg/dL 8.4-10.2 ursw=835) EGFR (BEAKER) (test 66 mL/min/1.73 sq m ESTIMATED GFR IS NOT rqbl=9258) ACCURATE CREATININE CLEARANCE IN PREDICTING GLOMERULAR FILTRATION RATE. ESTIMATED GFR IS NOT APPLICABLE FOR DIALYSIS PATIENTS. CBC W/PLT COUNT & AUTO [id number] 05:09:00 Test Item Value Reference Range Comments WHITE BLOOD CELL COUNT (BEAKER) (test bzeq=420) 9.0 K/ L 4.0-10.0 RED BLOOD CELL COUNT (BEAKER) (test kwse=934) 4.11 M/ L 4.00-5.00 HEMOGLOBIN (BEAKER) (test utmi=404) 11.8 GM/DL 12.0-15.0 HEMATOCRIT (BEAKER) (test vvuk=590) 37.1 % 36.0-45.0 MEAN CORPUSCULAR VOLUME (BEAKER) (test vtsj=119) 90.2 fL 82.0-99.0 MEAN CORPUSCULAR HEMOGLOBIN (BEAKER) (test 28.8 pg 27.0-33.0 grgi=132) MEAN CORPUSCULAR HEMOGLOBIN CONC (BEAKER) (test 32.0 GM/DL 32.0-36.0 qlsh=035) RED CELL DISTRIBUTION WIDTH (BEAKER) (test 12.5 % 10.3-14.2 atkt=363) PLATELET COUNT (BEAKER) (test qywq=744) 255 K/CU MM 150-430 MEAN PLATELET VOLUME (BEAKER) (test mumu=561) 6.6 fL 6.5-10.5 NUCLEATED RED BLOOD CELLS (BEAKER) (test 0 /100 WBC 0-0 nqwr=419) NEUTROPHILS RELATIVE PERCENT (BEAKER) (test 63 % olxe=186) LYMPHOCYTES RELATIVE PERCENT (BEAKER) (test 22 % ygyg=248) MONOCYTES RELATIVE PERCENT (BEAKER) (test 10 % ilzf=804) EOSINOPHILS RELATIVE PERCENT (BEAKER) (test 4 % wqbh=839) BASOPHILS RELATIVE PERCENT (BEAKER) (test 1 % yevo=053) NEUTROPHILS ABSOLUTE COUNT (BEAKER) (test 5.66 K/ L 1.80-8.00 otlz=009) LYMPHOCYTES ABSOLUTE COUNT (BEAKER) (test 1.98 K/ L 1.48-4.50 ouxi=477) MONOCYTES ABSOLUTE COUNT (BEAKER) (test 0.90 K/ L 0.00-1.30 ovnd=660) EOSINOPHILS ABSOLUTE COUNT (BEAKER) (test 0.39 K/ L 0.00-0.50 ksmj=703) BASOPHILS ABSOLUTE COUNT (BEAKER) (test 0.07 K/ L 0.00-0.20 ndie=865) 0.00PROTHROMBIN [id number] 04:57:00 Test Item Value Reference Range Comments PROTIME (BEAKER) (test jcrn=611) 15.7 seconds 11.7-14.7 INR (BEAKER) (test zisr=510) 1.3 <=5.9 RECOMMENDED COUMADIN/WARFARIN INR THERAPY RANGESSTANDARD DOSE: 2.0 - 3.0 Includes: PROPHYLAXIS forvenous thrombosis, systemic embolization; TREATMENT for venous thrombosis and/or pulmonary embolus.HIGH RISK: Target INR is 2.5-3.5 for patients with mechanical heart valves.While on warfarin.POCT-GLUCOSE [id number] 20:59:00 Test Item Value Reference Range Comments POC-GLUCOSE METER (BEAKER) 100 mg/dL 70-[address] [facility] [address] [facility] (test kbbv=9182) [facility] [address] BASIC METABOLIC [id number] 18:30:00 Test Item Value Reference Range Comments SODIUM (BEAKER) (test 137 meq/L 136-145 lvlt=320) POTASSIUM (BEAKER) (test 4.1 meq/L 3.5-5.1 caif=479) CHLORIDE (BEAKER) (test 106 meq/L 98-107 wmpv=569) CO2 (BEAKER) (test 25 meq/L 22-29 ceox=743) BLOOD UREA NITROGEN 18 mg/dL 7-21 (BEAKER) (test uzud=803) CREATININE (BEAKER) (test 0.98 mg/dL 0.57-1.25 wvdj=639) GLUCOSE RANDOM (BEAKER) 157 mg/dL 70-105 (test xxbv=295) CALCIUM (BEAKER) (test 9.3 mg/dL 8.4-10.2 fhlb=538) EGFR (BEAKER) (test 58 mL/min/1.73 sq m ESTIMATED GFR IS NOT xhvo=6382) ACCURATE CREATININE CLEARANCE IN PREDICTING GLOMERULAR FILTRATION RATE. ESTIMATED GFR IS NOT APPLICABLE FOR DIALYSIS PATIENTS. POCT-GLUCOSE [id number] 15:40:00 Test Item Value Reference Range Comments POC-GLUCOSE METER (BEAKER) 95 mg/dL 70-110 TESTED AT [address] (test lqbq=1522) [place] [address] POCT-GLUCOSE [id number] 11:47:00 Test Item Value Reference Range Comments POC-GLUCOSE METER (BEAKER) 101 mg/dL 70-110 TESTED AT [address] (test ewwk=6357) [place] [id number] POCT-GLUCOSE [id number] 07:32:00 Test Item Value Reference Range Comments POC-GLUCOSE METER (BEAKER) 88 mg/dL 70-110 TESTED AT [address] (test luga=7053) [place] [id number] CBC W/PLT COUNT & AUTO [id number] 07:32:00 Test Item Value Reference Range Comments WHITE BLOOD CELL COUNT (BEAKER) (test hfli=287) 9.1 K/ L 4.0-10.0 RED BLOOD CELL COUNT (BEAKER) (test hkhq=763) 4.02 M/ L 4.00-5.00 HEMOGLOBIN (BEAKER) (test hvpu=656) 12.2 GM/DL 12.0-15.0 HEMATOCRIT (BEAKER) (test kkmi=329) 36.3 % 36.0-45.0 MEAN CORPUSCULAR VOLUME (BEAKER) (test kkmt=918) 90.3 fL 82.0-99.0 MEAN CORPUSCULAR HEMOGLOBIN (BEAKER) (test 30.3 pg 27.0-33.0 dyur=062) MEAN CORPUSCULAR HEMOGLOBIN CONC (BEAKER) (test 33.6 GM/DL 32.0-36.0 fgit=503) RED CELL DISTRIBUTION WIDTH (BEAKER) (test 12.5 % 10.3-14.2 ufxc=953) PLATELET COUNT (BEAKER) (test hphi=389) 265 K/CU MM 150-430 MEAN PLATELET VOLUME (BEAKER) (test slmi=977) 6.7 fL 6.5-10.5 NUCLEATED RED BLOOD CELLS (BEAKER) (test 0 /100 WBC 0-0 tmlj=421) NEUTROPHILS RELATIVE PERCENT (BEAKER) (test 65 % efcm=883) LYMPHOCYTES RELATIVE PERCENT (BEAKER) (test 21 % jkaa=344) MONOCYTES RELATIVE PERCENT (BEAKER) (test 9 % qsic=046) EOSINOPHILS RELATIVE PERCENT (BEAKER) (test 4 % faxk=338) BASOPHILS RELATIVE PERCENT (BEAKER) (test 1 % tgwm=675) NEUTROPHILS ABSOLUTE COUNT (BEAKER) (test 5.89 K/ L 1.80-8.00 uekj=646) LYMPHOCYTES ABSOLUTE COUNT (BEAKER) (test 1.94 K/ L 1.48-4.50 azco=398) MONOCYTES ABSOLUTE COUNT (BEAKER) (test 0.84 K/ L 0.00-1.30 zsyv=169) EOSINOPHILS ABSOLUTE COUNT (BEAKER) (test 0.33 K/ L 0.00-0.50 qcfs=982) BASOPHILS ABSOLUTE COUNT (BEAKER) (test 0.08 K/ L 0.00-0.20 cokj=441) 0.00BASIC METABOLIC [id number] 06:23:00 Test Item Value Reference Range Comments SODIUM (BEAKER) (test 137 meq/L 136-145 esje=728) POTASSIUM (BEAKER) (test 4.0 meq/L 3.5-5.1 htuz=545) CHLORIDE (BEAKER) (test 107 meq/L 98-107 jzsa=618) CO2 (BEAKER) (test 19 meq/L 22-29 ayvo=191) BLOOD UREA NITROGEN 17 mg/dL 7-21 (BEAKER) (test ayaz=608) CREATININE (BEAKER) (test 0.84 mg/dL 0.57-1.25 bcos=753) GLUCOSE RANDOM (BEAKER) 88 mg/dL 70-105 (test yflz=050) CALCIUM (BEAKER) (test 9.2 mg/dL 8.4-10.2 pkyh=655) EGFR (BEAKER) (test 69 mL/min/1.73 sq m ESTIMATED GFR IS NOT pnca=2206) ACCURATE CREATININE CLEARANCE IN PREDICTING GLOMERULAR FILTRATION RATE. ESTIMATED GFR IS NOT APPLICABLE FOR DIALYSIS PATIENTS. [id number] 06:23:00 Test Item Value Reference Range Comments MAGNESIUM (BEAKER) (test fzuq=990) 1.6 mg/dL 1.6-2.6 [id number] 06:23:00 Test Item Value Reference Range Comments PHOSPHORUS (BEAKER) (test ized=406) 3.6 mg/dL 2.3-4.7 PROTHROMBIN [id number] 06:15:00 Test Item Value Reference Range Comments PROTIME (BEAKER) (test wckc=967) 14.9 seconds 11.7-14.7 INR (BEAKER) (test nbpi=224) 1.2 <=5.9 RECOMMENDED COUMADIN/WARFARIN INR THERAPY RANGESSTANDARD DOSE: 2.0 - 3.0 Includes: PROPHYLAXIS forvenous thrombosis, systemic embolization; TREATMENT for venous thrombosis and/or pulmonary embolus.HIGH RISK: Target INR is 2.5-3.5 for patients with mechanical heart valves.While on warfarin.POCT-GLUCOSE [id number] 20:47:00 Test Item Value Reference Range Comments POC-GLUCOSE METER (BEAKER) 108 mg/dL 70-[address] [facility] [address] [facility] (test sqza=9319) [facility] [address] BASIC METABOLIC [id number] 18:12:00 Test Item Value Reference Range Comments SODIUM (BEAKER) (test 136 meq/L 136-145 exkm=641) POTASSIUM (BEAKER) (test 4.2 meq/L 3.5-5.1 youi=948) CHLORIDE (BEAKER) (test 105 meq/L 98-107 qifl=150) CO2 (BEAKER) (test 23 meq/L 22-29 xjgg=142) BLOOD UREA NITROGEN 22 mg/dL 7-21 (BEAKER) (test ynwl=853) CREATININE (BEAKER) (test 0.98 mg/dL 0.57-1.25 dhpp=158) GLUCOSE RANDOM (BEAKER) 168 mg/dL 70-105 (test wxrb=955) CALCIUM (BEAKER) (test 9.4 mg/dL 8.4-10.2 ktin=048) EGFR (BEAKER) (test 58 mL/min/1.73 sq m ESTIMATED GFR IS NOT utrq=7328) ACCURATE CREATININE CLEARANCE IN PREDICTING GLOMERULAR FILTRATION RATE. ESTIMATED GFR IS NOT APPLICABLE FOR DIALYSIS PATIENTS. POCT-GLUCOSE [id number] 17:53:00 Test Item Value Reference Range Comments POC-GLUCOSE METER (BEAKER) 165 mg/dL 70-110 TESTED AT [address] (test usln=2685) [place] [address] PROTHROMBIN [id number] 13:53:00 Test Item Value Reference Range Comments PROTIME (BEAKER) (test tdds=532) 14.7 seconds 11.7-14.7 INR (BEAKER) (test tqoz=585) 1.2 <=5.9 RECOMMENDED COUMADIN/WARFARIN INR THERAPY RANGESSTANDARD DOSE: 2.0 - 3.0 Includes: PROPHYLAXIS forvenous thrombosis, systemic embolization; TREATMENT for venous thrombosis and/or pulmonary embolus.HIGH RISK: Target INR is 2.5-3.5 for patients with mechanical heart valves.POCT-GLUCOSE [id number] 11:49:00 Test Item Value Reference Range Comments POC-GLUCOSE METER (BEAKER) 120 mg/dL 70-110 TESTED AT [address] (test hyon=5104) [place] [address] POCT-GLUCOSE [id number] 07:58:00 Test Item Value Reference Range Comments POC-GLUCOSE METER (BEAKER) 94 mg/dL 70-110 TESTED AT [address] (test vabb=8163) [place] [address] [id number] 07:23:00 Test Item Value Reference Range Comments PHOSPHORUS (BEAKER) (test tgsh=264) 3.6 mg/dL 2.3-4.7 [id number] 07:23:00 Test Item Value Reference Range Comments MAGNESIUM (BEAKER) (test gqcx=257) 1.8 mg/dL 1.6-2.6 BASIC METABOLIC [id number] 07:23:00 Test Item Value Reference Range Comments SODIUM (BEAKER) (test 136 meq/L 136-145 kovw=682) POTASSIUM (BEAKER) (test 3.9 meq/L 3.5-5.1 fbsi=209) CHLORIDE (BEAKER) (test 106 meq/L 98-107 jzps=145) CO2 (BEAKER) (test 19 meq/L 22-29 poni=606) BLOOD UREA NITROGEN 19 mg/dL 7-21 (BEAKER) (test dydf=609) CREATININE (BEAKER) (test 0.91 mg/dL 0.57-1.25 uzap=779) GLUCOSE RANDOM (BEAKER) 84 mg/dL 70-105 (test hubg=385) CALCIUM (BEAKER) (test 9.6 mg/dL 8.4-10.2 pamg=610) EGFR (BEAKER) (test 63 mL/min/1.73 sq m ESTIMATED GFR IS NOT yedj=4178) ACCURATE CREATININE CLEARANCE IN PREDICTING GLOMERULAR FILTRATION RATE. ESTIMATED GFR IS NOT APPLICABLE FOR DIALYSIS PATIENTS. CBC W/PLT COUNT & AUTO [id number] 07:15:00 Test Item Value Reference Range Comments WHITE BLOOD CELL COUNT (BEAKER) (test xgjk=129) 8.7 K/ L 4.0-10.0 RED BLOOD CELL COUNT (BEAKER) (test qmjb=367) 4.25 M/ L 4.00-5.00 HEMOGLOBIN (BEAKER) (test nbzj=523) 12.5 GM/DL 12.0-15.0 HEMATOCRIT (BEAKER) (test lyvb=721) 38.6 % 36.0-45.0 MEAN CORPUSCULAR VOLUME (BEAKER) (test zvfn=548) 90.9 fL 82.0-99.0 MEAN CORPUSCULAR HEMOGLOBIN (BEAKER) (test 29.5 pg 27.0-33.0 vvwk=239) MEAN CORPUSCULAR HEMOGLOBIN CONC (BEAKER) (test 32.4 GM/DL 32.0-36.0 xerv=144) RED CELL DISTRIBUTION WIDTH (BEAKER) (test 12.5 % 10.3-14.2 chxh=037) PLATELET COUNT (BEAKER) (test dnog=036) 275 K/CU MM 150-430 MEAN PLATELET VOLUME (BEAKER) (test qmqr=874) 6.7 fL 6.5-10.5 NUCLEATED RED BLOOD CELLS (BEAKER) (test 0 /100 WBC 0-0 pbth=286) NEUTROPHILS RELATIVE PERCENT (BEAKER) (test 63 % tdsn=122) LYMPHOCYTES RELATIVE PERCENT (BEAKER) (test 24 % ymwq=654) MONOCYTES RELATIVE PERCENT (BEAKER) (test 8 % kzie=229) EOSINOPHILS RELATIVE PERCENT (BEAKER) (test 5 % flnl=520) BASOPHILS RELATIVE PERCENT (BEAKER) (test 1 % daeh=691) NEUTROPHILS ABSOLUTE COUNT (BEAKER) (test 5.47 K/ L 1.80-8.00 nmxh=601) LYMPHOCYTES ABSOLUTE COUNT (BEAKER) (test 2.05 K/ L 1.48-4.50 cgjb=271) MONOCYTES ABSOLUTE COUNT (BEAKER) (test 0.73 K/ L 0.00-1.30 togc=455) EOSINOPHILS ABSOLUTE COUNT (BEAKER) (test 0.40 K/ L 0.00-0.50 mbla=954) BASOPHILS ABSOLUTE COUNT (BEAKER) (test 0.07 K/ L 0.00-0.20 vdnv=959) 0.00POCT-GLUCOSE [id number] 20:44:00 Test Item Value Reference Range Comments POC-GLUCOSE METER (BEAKER) 164 mg/dL 70-[address] [facility] [address] [facility] (test pypi=8756) [facility] [address] BASIC METABOLIC [id number] 19:53:00 Test Item Value Reference Range Comments SODIUM (BEAKER) (test 137 meq/L 136-145 nxwx=155) POTASSIUM (BEAKER) (test 4.1 meq/L 3.5-5.1 dccn=131) CHLORIDE (BEAKER) (test 103 meq/L 98-107 xphy=903) CO2 (BEAKER) (test 23 meq/L 22-29 petm=288) BLOOD UREA NITROGEN 20 mg/dL 7-21 (BEAKER) (test azyb=852) CREATININE (BEAKER) (test 1.15 mg/dL 0.57-1.25 yjlm=877) GLUCOSE RANDOM (BEAKER) 157 mg/dL 70-105 (test mhej=735) CALCIUM (BEAKER) (test 9.8 mg/dL 8.4-10.2 hkvm=192) EGFR (BEAKER) (test 48 mL/min/1.73 sq m ESTIMATED GFR IS NOT jona=0070) ACCURATE CREATININE CLEARANCE IN PREDICTING GLOMERULAR FILTRATION RATE. ESTIMATED GFR IS NOT APPLICABLE FOR DIALYSIS PATIENTS. POCT-GLUCOSE [id number] 17:25:00 Test Item Value Reference Range Comments POC-GLUCOSE METER (BEAKER) 97 mg/dL 70-110 TESTED AT [address] (test elhl=9030) [place] [address] CLOSTRIDIUM DIFFICILE TOXIN [id number] 15:24:00 Test Item Value Reference Range Comments CLOSTRIDIUM DIFFICILE TOXIN, PCR (KonyAKER) (test Not Detected Not Detected czaf=7698) This qualitative real-time polymerase chain reaction assay [...] of a positive result is not recommended.POCT-GLUCOSE [id number] 12:30:00 Test Item Value Reference Range Comments POC-GLUCOSE METER (BEAKER) 110 mg/dL 70-110 TESTED AT [address] (test rzrw=9462) [place] [address] POCT-GLUCOSE [id number] 07:56:00 Test Item Value Reference Range Comments POC-GLUCOSE METER (BEAKER) 94 mg/dL 70-110 TESTED AT [address] (test zvpw=1854) [place] [address] HEMOGLOBIN [id number] 07:48:00 Test Item Value Reference Range Comments HEMOGLOBIN A1C (BEAKER) (test rcww=921) 5.4 % 4.3-6.1 CBC W/PLT COUNT & AUTO [id number] 06:42:00 Test Item Value Reference Range Comments WHITE BLOOD CELL COUNT (BEAKER) (test ffcz=475) 8.0 K/ L 4.0-10.0 RED BLOOD CELL COUNT (BEAKER) (test okjx=005) 4.65 M/ L 4.00-5.00 HEMOGLOBIN (BEAKER) (test vrxe=211) 13.6 GM/DL 12.0-15.0 HEMATOCRIT (BEAKER) (test dsxm=008) 41.6 % 36.0-45.0 MEAN CORPUSCULAR VOLUME (BEAKER) (test rlsl=552) 89.3 fL 82.0-99.0 MEAN CORPUSCULAR HEMOGLOBIN (BEAKER) (test 29.2 pg 27.0-33.0 ngmo=621) MEAN CORPUSCULAR HEMOGLOBIN CONC (BEAKER) (test 32.7 GM/DL 32.0-36.0 edzq=719) RED CELL DISTRIBUTION WIDTH (BEAKER) (test 13.6 % 10.3-14.2 ptxu=719) PLATELET COUNT (BEAKER) (test psca=531) 247 K/CU MM 150-430 MEAN PLATELET VOLUME (BEAKER) (test zryn=220) 6.9 fL 6.5-10.5 NUCLEATED RED BLOOD CELLS (BEAKER) (test 0 /100 WBC 0-0 mxjf=945) NEUTROPHILS RELATIVE PERCENT (BEAKER) (test 68 % cxap=474) LYMPHOCYTES RELATIVE PERCENT (BEAKER) (test 18 % oazq=511) MONOCYTES RELATIVE PERCENT (BEAKER) (test 10 % fznq=393) EOSINOPHILS RELATIVE PERCENT (BEAKER) (test 3 % mehj=715) BASOPHILS RELATIVE PERCENT (BEAKER) (test 1 % yccg=441) NEUTROPHILS ABSOLUTE COUNT (BEAKER) (test 5.42 K/ L 1.80-8.00 trjm=972) LYMPHOCYTES ABSOLUTE COUNT (BEAKER) (test 1.47 K/ L 1.48-4.50 coyz=897) MONOCYTES ABSOLUTE COUNT (BEAKER) (test 0.76 K/ L 0.00-1.30 dcgz=386) EOSINOPHILS ABSOLUTE COUNT (BEAKER) (test 0.27 K/ L 0.00-0.50 oybz=772) BASOPHILS ABSOLUTE COUNT (BEAKER) (test 0.06 K/ L 0.00-0.20 bicy=302) [id number] 06:06:00 Test Item Value Reference Range Comments PHOSPHORUS (BEAKER) (test vxmn=886) 3.7 mg/dL 2.3-4.7 [id number] 06:06:00 Test Item Value Reference Range Comments MAGNESIUM (BEAKER) (test hqec=860) 1.4 mg/dL 1.6-2.6 BASIC METABOLIC [id number] 06:06:00 Test Item Value Reference Range Comments SODIUM (BEAKER) (test 138 meq/L 136-145 zhsq=140) POTASSIUM (BEAKER) (test 3.3 meq/L 3.5-5.1 wcyv=866) CHLORIDE (BEAKER) (test 103 meq/L 98-107 fnvi=533) CO2 (BEAKER) (test 22 meq/L 22-29 scze=506) BLOOD UREA NITROGEN 22 mg/dL 7-21 (BEAKER) (test ztmf=036) CREATININE (BEAKER) (test 1.01 mg/dL 0.57-1.25 gdcu=343) GLUCOSE RANDOM (BEAKER) 91 mg/dL 70-105 (test mcyk=363) CALCIUM (BEAKER) (test 9.6 mg/dL 8.4-10.2 zroo=879) EGFR (BEAKER) (test 56 mL/min/1.73 sq m ESTIMATED GFR IS NOT pvnb=4697) ACCURATE CREATININE CLEARANCE IN PREDICTING GLOMERULAR FILTRATION RATE. ESTIMATED GFR IS NOT APPLICABLE FOR DIALYSIS PATIENTS. POCT-GLUCOSE [id number] 21:04:00 Test Item Value Reference Range Comments POC-GLUCOSE METER (BEAKER) 100 mg/dL 70-[address] [facility] [address] [facility] (test qjha=2988) [facility] [address] BASIC METABOLIC [id number] 20:03:00 Test Item Value Reference Range Comments SODIUM (BEAKER) (test 138 meq/L 136-145 rggi=724) POTASSIUM (BEAKER) (test 3.8 meq/L 3.5-5.1 clpm=452) CHLORIDE (BEAKER) (test 102 meq/L 98-107 wnhd=167) CO2 (BEAKER) (test 20 meq/L 22-29 rixj=588) BLOOD UREA NITROGEN 26 mg/dL 7-21 (BEAKER) (test rpqj=333) CREATININE (BEAKER) (test 1.16 mg/dL 0.57-1.25 pctq=649) GLUCOSE RANDOM (BEAKER) 99 mg/dL 70-105 (test bjou=251) CALCIUM (BEAKER) (test 10.0 mg/dL 8.4-10.2 tvbi=445) EGFR (BEAKER) (test 48 mL/min/1.73 sq m ESTIMATED GFR IS NOT apae=5530) ACCURATE CREATININE CLEARANCE IN PREDICTING GLOMERULAR FILTRATION RATE. ESTIMATED GFR IS NOT APPLICABLE FOR DIALYSIS PATIENTS. POCT-GLUCOSE [id number] 15:45:00 Test Item Value Reference Range Comments POC-GLUCOSE METER (BEAKER) 130 mg/dL 70-110 TESTED AT [address] (test uwcc=1240) [facility] [id number] POCT-GLUCOSE [id number] 11:20:00 Test Item Value Reference Range Comments POC-GLUCOSE METER (BEAKER) 102 mg/dL 70-110 TESTED AT [address] (test fwoz=5265) [place] [id number] HEMOGLOBIN [id number] 08:50:00 Test Item Value Reference Range Comments HEMOGLOBIN A1C (BEAKER) (test djbz=857) 5.6 % 4.3-6.1 [id number] 05:44:00 Test Item Value Reference Range Comments PHOSPHORUS (BEAKER) (test gyot=599) 3.4 mg/dL 2.3-4.7 [id number] 05:44:00 Test Item Value Reference Range Comments MAGNESIUM (BEAKER) (test udpq=960) 1.7 mg/dL 1.6-2.6 BASIC METABOLIC [id number] 05:44:00 Test Item Value Reference Range Comments SODIUM (BEAKER) (test 138 meq/L 136-145 gjkb=610) POTASSIUM (BEAKER) (test 3.9 meq/L 3.5-5.1 nvmw=072) CHLORIDE (BEAKER) (test 104 meq/L 98-107 sadc=472) CO2 (BEAKER) (test 20 meq/L 22-29 fsii=210) BLOOD UREA NITROGEN 27 mg/dL 7-21 (BEAKER) (test wvaz=619) CREATININE (BEAKER) (test 1.19 mg/dL 0.57-1.25 zkwm=720) GLUCOSE RANDOM (BEAKER) 87 mg/dL 70-105 (test eqig=833) CALCIUM (BEAKER) (test 9.9 mg/dL 8.4-10.2 ttja=784) EGFR (BEAKER) (test 46 mL/min/1.73 sq m ESTIMATED GFR IS NOT qdzw=2257) ACCURATE CREATININE CLEARANCE IN PREDICTING GLOMERULAR FILTRATION RATE. ESTIMATED GFR IS NOT APPLICABLE FOR DIALYSIS PATIENTS. CBC W/PLT COUNT & AUTO [id number] 05:39:00 Test Item Value Reference Range Comments WHITE BLOOD CELL COUNT (BEAKER) (test muoc=014) 10.3 K/ L 4.0-10.0 RED BLOOD CELL COUNT (BEAKER) (test xpou=752) 4.36 M/ L 4.00-5.00 HEMOGLOBIN (BEAKER) (test pltz=972) 12.9 GM/DL 12.0-15.0 HEMATOCRIT (BEAKER) (test cdqh=304) 39.0 % 36.0-45.0 MEAN CORPUSCULAR VOLUME (BEAKER) (test mbch=759) 89.3 fL 82.0-99.0 MEAN CORPUSCULAR HEMOGLOBIN (BEAKER) (test 29.6 pg 27.0-33.0 rqit=311) MEAN CORPUSCULAR HEMOGLOBIN CONC (BEAKER) (test 33.2 GM/DL 32.0-36.0 ltxy=486) RED CELL DISTRIBUTION WIDTH (BEAKER) (test 13.4 % 10.3-14.2 yeqr=326) PLATELET COUNT (BEAKER) (test pwkq=765) 257 K/CU MM 150-430 MEAN PLATELET VOLUME (BEAKER) (test ayiu=457) 6.8 fL 6.5-10.5 NUCLEATED RED BLOOD CELLS (BEAKER) (test 0 /100 WBC 0-0 tglu=927) NEUTROPHILS RELATIVE PERCENT (BEAKER) (test 73 % zsrt=935) LYMPHOCYTES RELATIVE PERCENT (BEAKER) (test 15 % vdpl=813) MONOCYTES RELATIVE PERCENT (BEAKER) (test 9 % afuy=781) EOSINOPHILS RELATIVE PERCENT (BEAKER) (test 3 % sqqd=891) BASOPHILS RELATIVE PERCENT (BEAKER) (test 1 % vara=026) NEUTROPHILS ABSOLUTE COUNT (BEAKER) (test 7.48 K/ L 1.80-8.00 dbva=786) LYMPHOCYTES ABSOLUTE COUNT (BEAKER) (test 1.49 K/ L 1.48-4.50 axve=558) MONOCYTES ABSOLUTE COUNT (BEAKER) (test 0.94 K/ L 0.00-1.30 spxr=769) EOSINOPHILS ABSOLUTE COUNT (BEAKER) (test 0.30 K/ L 0.00-0.50 zdba=668) BASOPHILS ABSOLUTE COUNT (BEAKER) (test 0.07 K/ L 0.00-0.20 bsll=471) 0.00POCT-GLUCOSE [id number] 23:15:00 Test Item Value Reference Range Comments POC-GLUCOSE METER (BEAKER) 83 mg/dL 70-110 TESTED AT [address] (test rxmj=9696) [facility] [address] POCT-GLUCOSE [id number] 17:19:00 Test Item Value Reference Range Comments POC-GLUCOSE METER (BEAKER) 82 mg/dL 70-110 TESTED AT [address] (test cnru=3430) [facility] [address] POCT-GLUCOSE [id number] 12:57:00 Test Item Value Reference Range Comments POC-GLUCOSE METER (BEAKER) 124 mg/dL 70-110 TESTED AT [address] (test nmxv=7568) [facility] [address] HEMOGLOBIN [id number] 10:12:00 Test Item Value Reference Range Comments HEMOGLOBIN A1C (BEAKER) (test bbja=502) 5.6 % 4.3-6.1 CBC W/PLT COUNT & AUTO [id number] 06:14:00 Test Item Value Reference Range Comments WHITE BLOOD CELL COUNT (BEAKER) (test klwn=332) 12.1 K/ L 4.0-10.0 RED BLOOD CELL COUNT (BEAKER) (test kfhs=038) 4.29 M/ L 4.00-5.00 HEMOGLOBIN (BEAKER) (test ghpk=289) 12.5 GM/DL 12.0-15.0 HEMATOCRIT (BEAKER) (test phcr=551) 38.8 % 36.0-45.0 MEAN CORPUSCULAR VOLUME (BEAKER) (test dbht=076) 90.4 fL 82.0-99.0 MEAN CORPUSCULAR HEMOGLOBIN (BEAKER) (test 29.2 pg 27.0-33.0 jtmb=226) MEAN CORPUSCULAR HEMOGLOBIN CONC (BEAKER) (test 32.3 GM/DL 32.0-36.0 ygiw=055) RED CELL DISTRIBUTION WIDTH (BEAKER) (test 12.5 % 10.3-14.2 dqnp=378) PLATELET COUNT (BEAKER) (test oqrj=549) 263 K/CU MM 150-430 MEAN PLATELET VOLUME (BEAKER) (test xfcp=673) 7.3 fL 6.5-10.5 NUCLEATED RED BLOOD CELLS (BEAKER) (test 0 /100 WBC 0-0 fcju=382) NEUTROPHILS RELATIVE PERCENT (BEAKER) (test 73 % orjv=770) LYMPHOCYTES RELATIVE PERCENT (BEAKER) (test 15 % sftd=373) MONOCYTES RELATIVE PERCENT (BEAKER) (test 10 % qmab=270) EOSINOPHILS RELATIVE PERCENT (BEAKER) (test 2 % ttll=463) BASOPHILS RELATIVE PERCENT (BEAKER) (test 0 % gihi=331) NEUTROPHILS ABSOLUTE COUNT (BEAKER) (test 8.87 K/ L 1.80-8.00 lhgf=753) LYMPHOCYTES ABSOLUTE COUNT (BEAKER) (test 1.79 K/ L 1.48-4.50 faop=317) MONOCYTES ABSOLUTE COUNT (BEAKER) (test 1.18 K/ L 0.00-1.30 irll=144) EOSINOPHILS ABSOLUTE COUNT (BEAKER) (test 0.22 K/ L 0.00-0.50 exqo=995) BASOPHILS ABSOLUTE COUNT (BEAKER) (test 0.04 K/ L 0.00-0.20 ibki=944) [id number] 05:43:00 Test Item Value Reference Range Comments PHOSPHORUS (BEAKER) (test hqav=139) 4.1 mg/dL 2.3-4.7 [id number] 05:43:00 Test Item Value Reference Range Comments MAGNESIUM (BEAKER) (test opyq=060) 1.9 mg/dL 1.6-2.6 BASIC METABOLIC [id number] 05:43:00 Test Item Value Reference Range Comments SODIUM (BEAKER) (test 137 meq/L 136-145 daxs=942) POTASSIUM (BEAKER) (test 3.8 meq/L 3.5-5.1 ogoq=365) CHLORIDE (BEAKER) (test 102 meq/L 98-107 tlps=627) CO2 (BEAKER) (test 24 meq/L 22-29 lmos=439) BLOOD UREA NITROGEN 29 mg/dL 7-21 (BEAKER) (test hlgs=640) CREATININE (BEAKER) (test 1.28 mg/dL 0.57-1.25 injn=242) GLUCOSE RANDOM (BEAKER) 100 mg/dL 70-105 (test hiyw=713) CALCIUM (BEAKER) (test 9.9 mg/dL 8.4-10.2 fbzb=848) EGFR (BEAKER) (test 43 mL/min/1.73 sq m ESTIMATED GFR IS NOT jwdn=4385) ACCURATE CREATININE CLEARANCE IN PREDICTING GLOMERULAR FILTRATION RATE. ESTIMATED GFR IS NOT APPLICABLE FOR DIALYSIS PATIENTS. POCT-GLUCOSE [id number] 05:12:00 Test Item Value Reference Range Comments POC-GLUCOSE METER (BEAKER) 89 mg/dL 70-[address] [facility] [address] [facility] (test mpps=4290) [facility] [address] POCT-GLUCOSE [id number] 00:07:00 Test Item Value Reference Range Comments POC-GLUCOSE METER (BEAKER) 92 mg/dL 70-110 TESTED AT [address] (test bgzg=8433) [facility] [id number] [id number] 23:51:00 Test Item Value Reference Range Comments PROTIME (BEAKER) (test yfyf=653) 15.5 seconds 11.7-14.7 INR (BEAKER) (test kbbw=550) 1.2 <=5.9 PARTIAL THROMBOPLASTIN TIME (BEAKER) (test 36.5 seconds 22.5-36.0 sonf=437) RECOMMENDED COUMADIN/WARFARIN INR THERAPY RANGESSTANDARD DOSE: 2.0 - 3.0 Includes: PROPHYLAXIS forvenous thrombosis, systemic embolization; TREATMENT for venous thrombosis and/or pulmonary embolus.HIGH RISK: Target INR is 2.5-3.5 for patients with mechanical heart valves.[id number] 23:49:00 Test Item Value Reference Range Comments MAGNESIUM (BEAKER) (test 1.9 mg/dL 1.6-2.6 Specimen slightly hemolyzed kxqo=161) [id number] 23:49:00 Test Item Value Reference Range Comments PHOSPHORUS (BEAKER) (test 3.4 mg/dL 2.3-4.7 Specimen slightly hemolyzed ppeq=421) BASIC METABOLIC [id number] 23:49:00 Test Item Value Reference Range Comments SODIUM (BEAKER) (test 136 meq/L 136-145 qxdy=839) POTASSIUM (BEAKER) (test 4.1 meq/L 3.5-5.1 Specimen slightly inxy=625) hemolyzed CHLORIDE (BEAKER) (test 100 meq/L 98-107 sizx=773) CO2 (BEAKER) (test 21 meq/L 22-29 ignp=832) BLOOD UREA NITROGEN 28 mg/dL 7-21 (BEAKER) (test eghf=938) CREATININE (BEAKER) (test 1.31 mg/dL 0.57-1.25 Specimen slightly rwtj=688) hemolyzed GLUCOSE RANDOM (BEAKER) 98 mg/dL 70-105 (test vvqb=203) CALCIUM (BEAKER) (test 9.9 mg/dL 8.4-10.2 uhvo=229) EGFR (BEAKER) (test 41 mL/min/1.73 sq m ESTIMATED GFR IS NOT chyq=3872) ACCURATE CREATININE CLEARANCE IN PREDICTING GLOMERULAR FILTRATION RATE. ESTIMATED GFR IS NOT APPLICABLE FOR DIALYSIS PATIENTS. CBC W/PLT COUNT & AUTO [id number] 23:38:00 Test Item Value Reference Range Comments WHITE BLOOD CELL COUNT (BEAKER) (test nfyh=637) 13.2 K/ L 4.0-10.0 RED BLOOD CELL COUNT (BEAKER) (test xcdl=395) 4.26 M/ L 4.00-5.00 HEMOGLOBIN (BEAKER) (test nqtb=181) 13.3 GM/DL 12.0-15.0 HEMATOCRIT (BEAKER) (test ongx=522) 38.5 % 36.0-45.0 MEAN CORPUSCULAR VOLUME (BEAKER) (test tcvz=320) 90.4 fL 82.0-99.0 MEAN CORPUSCULAR HEMOGLOBIN (BEAKER) (test 31.2 pg 27.0-33.0 sxwf=254) MEAN CORPUSCULAR HEMOGLOBIN CONC (BEAKER) (test 34.5 GM/DL 32.0-36.0 rnrh=003) RED CELL DISTRIBUTION WIDTH (BEAKER) (test 12.6 % 10.3-14.2 ldna=746) PLATELET COUNT (BEAKER) (test atmv=680) 244 K/CU MM 150-430 MEAN PLATELET VOLUME (BEAKER) (test wsfe=180) 7.6 fL 6.5-10.5 NUCLEATED RED BLOOD CELLS (BEAKER) (test 0 /100 WBC 0-0 otly=732) NEUTROPHILS RELATIVE PERCENT (BEAKER) (test 78 % rkic=652) LYMPHOCYTES RELATIVE PERCENT (BEAKER) (test 11 % gcqg=354) MONOCYTES RELATIVE PERCENT (BEAKER) (test 9 % xalq=011) EOSINOPHILS RELATIVE PERCENT (BEAKER) (test 1 % jpvo=235) BASOPHILS RELATIVE PERCENT (BEAKER) (test 0 % sshp=337) NEUTROPHILS ABSOLUTE COUNT (BEAKER) (test 10.40 K/ L 1.80-8.00 uhhu=247) LYMPHOCYTES ABSOLUTE COUNT (BEAKER) (test 1.49 K/ L 1.48-4.50 ythn=765) MONOCYTES ABSOLUTE COUNT (BEAKER) (test 1.18 K/ L 0.00-1.30 atoc=043) EOSINOPHILS ABSOLUTE COUNT (BEAKER) (test 0.12 K/ L 0.00-0.50 kqyc=673) BASOPHILS ABSOLUTE COUNT (BEAKER) (test 0.06 K/ L 0.00-0.20 pvwr=315) 0.00URINALYSIS W/ [id number] 22:57:00 Test Item Value Reference Range Comments COLOR (BEAKER) (test wnvn=577) Yellow CLARITY (BEAKER) (test plck=036) Cloudy SPECIFIC GRAVITY UA (BEAKER) (test esxq=332) 1.013 1.001-1.035 PH UA (BEAKER) (test xaex=399) 5.5 5.0-8.0 PROTEIN UA (BEAKER) (test tzgd=305) 30 mg/dL Negative GLUCOSE UA (BEAKER) (test yjiy=900) Negative Negative KETONES UA (BEAKER) (test eenh=491) Negative Negative BILIRUBIN UA (BEAKER) (test tbls=748) Negative Negative BLOOD UA (BEAKER) (test cfwr=868) Moderate Negative NITRITE UA (BEAKER) (test pdhk=804) Negative Negative LEUKOCYTE ESTERASE UA (BEAKER) (test twge=329) Large Negative UROBILINOGEN UA (BEAKER) (test gssv=601) 2.0 mg/dL 0.2-1.0 RBC UA (BEAKER) (test xvuh=209) 34 /HPF WBC UA (BEAKER) (test qkhp=251) > /HPF MUCUS (BEAKER) (test beje=6597) Rare SOURCE(BEAKER) (test pnks=2554) Urine, Perez
--- NOTE | 2018-02-03 14:49 | RAD REPORT ---
EXAM DESCRIPTION: VAS - Extrem Venous W Compress Chris - 02/03/2018 2:23 pm CLINICAL HISTORY: Leg pain and swelling COMPARISON: None. TECHNIQUE: Real-time sonographic evaluation of the bilateral lower extremity deep venous systems was performed. FINDINGS: Normal compressibility, flow augmentation, phasic flow and spontaneous flow are identified in the left and right lower extremity deep venous systems. No intraluminal filling defects seen. IMPRESSION: No DVT in either lower extremity.
--- NOTE | 2018-02-03 15:00 | ER ---
Nurse's Notes [facility] Name: Rosio Jain Age: 62 yrs Sex: Female : 1955 Arrival Date: 02/03/2018 Time: 13:43 Bed 26 Private MD: Arthur Fong S Diagnosis: Fall from standing;Edema, unspecified Presentation: 02/03 13:44 Presenting complaint: EMS states: fell off of edge of bed and could not get up, just tl3 DC'D from hospital one week ago. Transition of care: patient was not received from another setting of care. Onset of symptoms was February 03, 2018. Risk Assessment: Do you want to hurt yourself or someone else? Patient reports no desire to harm self or others. Initial Sepsis Screen: Does the patient meet any 2 criteria? No. Patient's initial sepsis screen is negative. Does the patient have a suspected source of infection? No. Patient's initial sepsis screen is negative. Note has skin breakdown to back of right thigh, had urine catheter placed but it came out on , skin exposed to urine. Care prior to arrival: None. 13:44 Method Of Arrival: EMS: [facility] tl3 13:44 Acuity: DYAN 3 tl3 Historical: - Home Meds: 13:53 zolpidem 10 mg Oral tab 1 tab once daily [Active]; folic acid 400 mcg Oral tab 1 tab tl3 once daily [Active]; alprazolam 1 mg Oral tab [Active]; 13:55 citalopram 20 mg tab 1 tab once daily [Active]; levothyroxine 175 mcg oral tab tl3 [Active]; furosemide 20 mg Oral tab 1 tab once daily [Active]; valsartan-hydrochlorothiazide 320-25 mg Oral tab 1 tab once daily [Active]; metoprolol tartrate 50 mg oral tab [Active]; - Immunization history:: Adult Immunizations up to date. - Social history:: Smoking status: Patient/guardian denies using tobacco, never smoked. - Family history:: not pertinent. - Hospitalizations: : No recent hospitalization is reported. Screenin:52 Abuse screen: Denies threats or abuse. Nutritional screening: No deficits noted. tl3 Tuberculosis screening: No symptoms or risk factors identified. Fall Risk None identified. Assessment: 13:44 General: Appears in no apparent distress. comfortable, obese, well groomed, well tl3 developed, well nourished, Behavior is calm, cooperative, appropriate for age. Pain: Denies pain. Neuro: No deficits noted. Level of Consciousness is awake, alert, obeys commands, Oriented to person, place, time, situation, Appropriate for age. Cardiovascular: No deficits noted. Denies chest pain, diaphoresis, fatigue, lightheadedness, Heart tones S1 S2 present Respiratory: No deficits noted. Airway is patent Trachea midline Respiratory effort is even, unlabored, Respiratory pattern is regular, symmetrical, Breath sounds are clear bilaterally. GI: No signs and/or symptoms were reported involving the gastrointestinal system. : No signs and/or symptoms were reported regarding the genitourinary system. EENT: No signs and/or symptoms were reported regarding the EENT system. Derm: Skin has lesions on to back of thighs bilaterally, with the right one having skin tears. Musculoskeletal: No signs and/or symptoms reported regarding the musculoskeletal system. 14:52 Reassessment: Patient appears in no apparent distress at this time. No changes from tl3 previously documented assessment. Patient and/or family updated on plan of care and expected duration. Pain level reassessed. Patient is alert, oriented x 3, equal unlabored respirations, skin warm/dry/pink. at bedside. 15:21 Reassessment: Patient appears in no apparent distress at this time. No changes from tl3 previously documented assessment. Patient and/or family updated on plan of care and expected duration. Pain level reassessed. Patient is alert, oriented x 3, equal unlabored respirations, skin warm/dry/pink. 15:21 Reassessment: pt unable to get into private vehicle, looking at options for transport. tl3 16:19 Reassessment: pt cleaned and clothes changed, placed in wheelchair, awaiting [address] [facility] to come for transport. 16:30 Reassessment: dressings applied to bilateral skin tears on thighs for comfort. tl3 16:40 Reassessment: [facility] here for transport. tl3 Vital Signs: 14:30 BP 125 / 68; Pulse 83; Resp 20; Pulse Ox 98% on R/A; tm3 14:49 BP 128 / 71; Pulse 78; Resp 18; Pulse Ox 98% ; tl3 14:49 BP 120 / 81; Pulse 85; Resp 18; Pulse Ox 99% on R/A; tl3 14:51 BP 129 / 59; Pulse 79; Resp 18; Pulse Ox 99% on R/A; tl3 ED Course: 13:43 Patient arrived in ED. tl3 13:44 Arthur Fong MD is Private Physician. tl3 13:44 Bailey Diaz, RN is Primary Nurse. tl3 13:47 Triage completed. tl3 13:47 Chapo Lipscomb MD is Attending Physician. rn 14:07 Taken to ultrasound by stretcher. tm3 14:19 Extrem Venous W Compression Chris US In Process Unspecified. EDMS 14:19 Patient taken to ultrasound. via stretcher. aa4 14:28 Back from ultrasound. tm3 14:52 No provider procedures requiring assistance completed. Patient did not have IV access tl3 during this emergency room visit. 14:52 Patient has correct armband on for positive identification. Bed in low position. Call tl3 light in reach. Side rails up X 1. Adult w/ patient. radiation monitor on. Pulse ox on. NIBP on. 15:03 Patient moved back from ultrasound. aa4 15:22 Arm band placed on right wrist. tl3 Administered Medications: No medications were administered Outcome: 15:00 Discharge ordered by . rn 15:21 Discharged to home tl3 15:21 Condition: stable 15:21 Discharge instructions given to patient, family, Instructed on discharge instructions, follow up and referral plans. Demonstrated understanding of instructions, follow-up care. 16:40 Patient left the ED. tl3 Signatures: Dispatcher [employer] [facility] Ernie Bangura tm3 Sue Beaver aa4 Chapo Lipscomb MD MD rn Lowrey, Tammy, RN RN tl3
--- NOTE | 2018-02-03 15:00 | EDPHYS ---
Physician Documentation [facility] Name: Rosio Jain Age: 62 yrs Sex: Female : 1955 Arrival Date: 02/03/2018 Time: 13:43 Bed 26 Private MD: Arthur Fong S ED Physician Chapo Lipscomb HPI: 02/03 14:44 This 62 yrs old Female presents to ER via EMS with complaints of fall. rn 14:44 Reports fell today when getting out of bed, no syncope, landed on knees, bent over to rn pull up underwear and tipped over, no head injury. Reports legs feel ok, although more swollen than normal. Hx of DVT/PE, on blood thinners, and has filter. No traumatic injuries from fall. Walked down her steps and onto stretcher. Reports felt great last night when going to sleep, no recent/vomiting/diarrhea. . Onset: The symptoms/episode began/occurred just prior to arrival. Severity of symptoms: At their worst the symptoms were mild. 14:45 The patient has not experienced similar symptoms in the past. The patient has been rn recently seen by a physician:. Historical: - Home Meds: 13:53 zolpidem 10 mg Oral tab 1 tab once daily [Active]; folic acid 400 mcg Oral tab 1 tab tl3 once daily [Active]; alprazolam 1 mg Oral tab [Active]; 13:55 citalopram 20 mg tab 1 tab once daily [Active]; levothyroxine 175 mcg oral tab tl3 [Active]; furosemide 20 mg Oral tab 1 tab once daily [Active]; valsartan-hydrochlorothiazide 320-25 mg Oral tab 1 tab once daily [Active]; metoprolol tartrate 50 mg oral tab [Active]; - Immunization history:: Adult Immunizations up to date. - Social history:: Smoking status: Patient/guardian denies using tobacco, never smoked. - Family history:: not pertinent. - Hospitalizations: : No recent hospitalization is reported. ROS: 14:45 Constitutional: Negative for fever, chills, and weight loss, Eyes: Negative for injury, rn pain, redness, and discharge, Cardiovascular: Negative for chest pain, palpitations, + edema, Respiratory: Negative for shortness of breath, cough, wheezing, and pleuritic chest pain, Abdomen/GI: Negative for abdominal pain, nausea, vomiting, diarrhea, and constipation, Back: Negative for injury and pain, MS/Extremity: Negative for injury and deformity, Skin: Negative for injury, rash, and discoloration, Neuro: Negative for headache, numbness, tingling, and seizure. Exam: 14:45 Constitutional: Obese female, no acute distress Head/Face: Normocephalic, atraumatic. rn Eyes: Pupils equal round and reactive to light, extra-ocular motions intact. Lids and lashes normal. Conjunctiva and sclera are non-icteric and not injected. Cornea within normal limits. Periorbital areas with no swelling, redness, or edema. Neck: Trachea midline, no thyromegaly or masses palpated, and no cervical lymphadenopathy. Supple, full range of motion without nuchal rigidity, or vertebral point tenderness. No Meningismus. Cardiovascular: Regular rate and rhythm with a normal S1 and S2. No gallops, murmurs, or rubs. Normal PMI, no JVD. No pulse deficits. Respiratory: Lungs have equal breath sounds bilaterally, clear to auscultation and percussion. No rales, rhonchi or wheezes noted. No increased work of breathing, no retractions or nasal flaring. Abdomen/GI: soft, well healing surgical wounds of abdomen MS/ Extremity: Pulses equal, no cyanosis. Neurovascular intact. Full, normal range of motion. Equal circumference. 2+ non-pitting edema of bilateral lower ext Neuro: Awake and alert, GCS 15, oriented to person, place, time, and situation. Cranial nerves II-XII grossly intact. Motor strength 5/5 in all extremities. Sensory grossly intact. Vital Signs: 14:30 BP 125 / 68; Pulse 83; Resp 20; Pulse Ox 98% on R/A; tm3 14:49 BP 128 / 71; Pulse 78; Resp 18; Pulse Ox 98% ; tl3 14:49 BP 120 / 81; Pulse 85; Resp 18; Pulse Ox 99% on R/A; tl3 14:51 BP 129 / 59; Pulse 79; Resp 18; Pulse Ox 99% on R/A; tl3 MDM: 13:47 Patient medically screened. rn 14:59 Differential Diagnosis Edema, dehydration, deconditioning post surgery. Data reviewed: rn vital signs, nurses notes, radiologic studies, doppler, and as a result, I will discharge patient. Counseling: I had a detailed discussion with the patient and/or guardian regarding: the historical points, exam findings, and any diagnostic results supporting the discharge/admit diagnosis, radiology results, the need for outpatient follow up, to return to the emergency department if symptoms worsen or persist or if there are any questions or concerns that arise at home. Special discussion: I discussed with the patient/guardian in detail that at this point there is no indication for admission to the hospital. It is understood, however, that if the symptoms persist or worsen the patient needs to return immediately for re-evaluation. 02/03 13:55 Order name: Extrem Venous W Compression Chris US; Complete Time: 14:59 rn Administered Medications: No medications were administered Disposition: 02/03/18 15:00 Discharged to Home. Impression: Fall from standing, Edema, unspecified. - Condition is Stable. - Discharge Instructions: Edema, Fall Prevention and Home Safety. - Medication Reconciliation Form, Thank You Letter, Antibiotic Education, Prescription Opioid Use form. - Follow up: Private Physician; When: As needed; Reason: Recheck today's complaints, Re-evaluation by your physician. - Problem is new. - Symptoms have improved. Signatures: Dispatcher [employer] EDMS Chapo Lipscomb MD MD rn Lowrey, Tammy, RN RN tl3 Corrections: (The following items were deleted from the chart) 14:46 14:44 Reports fell today when getting out of bed, no syncope, landed on knees, bent rn over to pull up underwear and tipped over, no head injury. Reports legs feel ok, although more swollen than normal. Hx of DVT/PE, on blood thinners, and has filter. No traumatic injuries from fall. . rn 16:40 15:00 02/03/2018 15:00 Discharged to Home. Impression: Fall from standing; Edema, tl3 unspecified. Condition is Stable. Forms are Medication Reconciliation Form, Thank You Letter, Antibiotic Education, Prescription Opioid Use. Follow up: Private Physician; When: As needed; Reason: Recheck today's complaints, Re-evaluation by your physician. Problem is new. Symptoms have improved. rn
[2018-02-03 16:53] VITALS: O2SAT 99
[2018-02-03 16:54] VITALS: BP 129/59
== END 2018-02-03 16:40 | disposition home or self-care (01) ==
LOC: ER 13:33
DX: R60.9 Edema, unspecified (principal); W06.XXXA Fall from bed, initial encounter; Y93.89 Activity, other specified; Y92.003 Bedroom of unspecified non-institutional (private) residence as the place of occurrence of the external cause
CPT/HCPCS: 93970; 99285

== ENCOUNTER 2018-02-11 11:58 | Inpatient (IN) | payer OTHER ==
--- OUTSIDE RECORDS SUMMARY | 2018-02-11 12:01 | XMS REPORT | Clinical Summary ---
:1955 Author Organization [facility] Address [address] [place] [address] Phone Care Team Providers Name Role Phone [...] Emergency Emergency Medicine Candida Bosch DO after 02/10/2017 Social History Tobacco Use Types Packs/Day Years Used Date Never Smoker Sex Assigned at Date Recorded Not on file Last Filed Vital Signs Vital Sign Reading Time Taken Blood Pressure 113/59 10/20/2017 12:24 PM ENGINE DISPATCHER Pulse 75 10/20/2017 12:24 PM ENGINE DISPATCHER Temperature 37.2 C (99 F) 10/20/2017 12:24 PM ENGINE DISPATCHER Respiratory Rate 18 10/20/2017 12:24 PM ENGINE DISPATCHER Oxygen Saturation 97% 10/20/2017 12:24 PM ENGINE DISPATCHER Inhaled Oxygen Concentration - - Weight 139.7 kg (308 lb) 10/20/2017 12:24 PM ENGINE DISPATCHER Height 175.3 cm (5' 9") 10/20/2017 12:24 PM ENGINE DISPATCHER Body Mass Index 45.48 10/20/2017 12:24 PM ENGINE DISPATCHER Plan of Treatment Not on file Results Not on fileafter 02/10/2017
--- OUTSIDE RECORDS SUMMARY | 2018-02-11 12:01 | XMS REPORT ---
:1955 [facility] Address [address] [place] [address] [address] [place] [address] Care Team Providers Name Role Phone LILA [...] Value Reference Range Comments CULTURE (BEAKER) (test ppmr=4460) No Salmonella, Shigella or Campylobacter isolated Unable to test for Shiga Toxin 1 due to insufficient growth of specimen.Unable to test for Shiga Toxin 2 due to insufficient growth of specimen.STOOL PATH [id number] 13:49:00 Test Item Value Reference Range Comments PATHOGEN EXAM CHARGED (BEAKER) (test izws=5749) Done POCT-GLUCOSE [id number] 11:36:00 Test Item Value Reference Range Comments POC-GLUCOSE METER (BEAKER) 106 mg/dL 70-110 TESTED AT [facility] [address] [facility] (test gbny=4015) [facility] [address] POCT-GLUCOSE [id number] 08:21:00 Test Item Value Reference Range Comments POC-GLUCOSE METER (BEAKER) 110 mg/dL 70-110 TESTED AT [facility] [address] [facility] (test czzm=6171) [facility] [address] [id number] 05:17:00 Test Item Value Reference Range Comments PHOSPHORUS (BEAKER) (test eynq=315) 3.6 mg/dL 2.3-4.7 [id number] 05:17:00 Test Item Value Reference Range Comments MAGNESIUM (BEAKER) (test doyo=561) 1.6 mg/dL 1.6-2.6 BASIC METABOLIC [id number] 05:17:00 Test Item Value Reference Range Comments SODIUM (BEAKER) (test 136 meq/L 136-145 fdto=940) POTASSIUM (BEAKER) (test 4.1 meq/L 3.5-5.1 ewqp=480) CHLORIDE (BEAKER) (test 108 meq/L 98-107 bgvx=354) CO2 (BEAKER) (test 19 meq/L 22-29 hvwv=074) BLOOD UREA NITROGEN 17 mg/dL 7-21 (BEAKER) (test ozhs=087) CREATININE (BEAKER) (test 0.87 mg/dL 0.57-1.25 tqjc=478) GLUCOSE RANDOM (BEAKER) 89 mg/dL 70-105 (test duwa=771) CALCIUM (BEAKER) (test 8.9 mg/dL 8.4-10.2 xfbt=368) EGFR (BEAKER) (test 66 mL/min/1.73 sq m ESTIMATED GFR IS NOT hyza=7758) ACCURATE CREATININE CLEARANCE IN PREDICTING GLOMERULAR FILTRATION RATE. ESTIMATED GFR IS NOT APPLICABLE FOR DIALYSIS PATIENTS. CBC W/PLT COUNT & AUTO [id number] 05:09:00 Test Item Value Reference Range Comments WHITE BLOOD CELL COUNT (BEAKER) (test obwc=458) 9.0 K/ L 4.0-10.0 RED BLOOD CELL COUNT (BEAKER) (test omxf=380) 4.11 M/ L 4.00-5.00 HEMOGLOBIN (BEAKER) (test ceff=085) 11.8 GM/DL 12.0-15.0 HEMATOCRIT (BEAKER) (test xquy=629) 37.1 % 36.0-45.0 MEAN CORPUSCULAR VOLUME (BEAKER) (test rans=253) 90.2 fL 82.0-99.0 MEAN CORPUSCULAR HEMOGLOBIN (BEAKER) (test 28.8 pg 27.0-33.0 tadk=201) MEAN CORPUSCULAR HEMOGLOBIN CONC (BEAKER) (test 32.0 GM/DL 32.0-36.0 jjro=004) RED CELL DISTRIBUTION WIDTH (BEAKER) (test 12.5 % 10.3-14.2 mdcn=536) PLATELET COUNT (BEAKER) (test dzkv=503) 255 K/CU MM 150-430 MEAN PLATELET VOLUME (BEAKER) (test ywoh=482) 6.6 fL 6.5-10.5 NUCLEATED RED BLOOD CELLS (BEAKER) (test 0 /100 WBC 0-0 cglt=079) NEUTROPHILS RELATIVE PERCENT (BEAKER) (test 63 % ihrk=394) LYMPHOCYTES RELATIVE PERCENT (BEAKER) (test 22 % wgrw=830) MONOCYTES RELATIVE PERCENT (BEAKER) (test 10 % zpmq=052) EOSINOPHILS RELATIVE PERCENT (BEAKER) (test 4 % wmec=145) BASOPHILS RELATIVE PERCENT (BEAKER) (test 1 % etxg=583) NEUTROPHILS ABSOLUTE COUNT (BEAKER) (test 5.66 K/ L 1.80-8.00 sehq=776) LYMPHOCYTES ABSOLUTE COUNT (BEAKER) (test 1.98 K/ L 1.48-4.50 rqjj=358) MONOCYTES ABSOLUTE COUNT (BEAKER) (test 0.90 K/ L 0.00-1.30 kdyu=398) EOSINOPHILS ABSOLUTE COUNT (BEAKER) (test 0.39 K/ L 0.00-0.50 jaia=025) BASOPHILS ABSOLUTE COUNT (BEAKER) (test 0.07 K/ L 0.00-0.20 ggut=778) 0.00PROTHROMBIN [id number] 04:57:00 Test Item Value Reference Range Comments PROTIME (BEAKER) (test vizv=672) 15.7 seconds 11.7-14.7 INR (BEAKER) (test qfzx=136) 1.3 <=5.9 RECOMMENDED COUMADIN/WARFARIN INR THERAPY RANGESSTANDARD DOSE: 2.0 - 3.0 Includes: PROPHYLAXIS forvenous thrombosis, systemic embolization; TREATMENT for venous thrombosis and/or pulmonary embolus.HIGH RISK: Target INR is 2.5-3.5 for patients with mechanical heart valves.While on warfarin.POCT-GLUCOSE [id number] 20:59:00 Test Item Value Reference Range Comments POC-GLUCOSE METER (BEAKER) 100 mg/dL 70-110 TESTED AT [facility] [address] [facility] (test pdld=2984) [facility] [address] BASIC METABOLIC [id number] 18:30:00 Test Item Value Reference Range Comments SODIUM (BEAKER) (test 137 meq/L 136-145 zwat=132) POTASSIUM (BEAKER) (test 4.1 meq/L 3.5-5.1 yrjt=641) CHLORIDE (BEAKER) (test 106 meq/L 98-107 qixb=196) CO2 (BEAKER) (test 25 meq/L 22-29 vvyi=309) BLOOD UREA NITROGEN 18 mg/dL 7-21 (BEAKER) (test qksw=049) CREATININE (BEAKER) (test 0.98 mg/dL 0.57-1.25 hzzm=743) GLUCOSE RANDOM (BEAKER) 157 mg/dL 70-105 (test hluf=350) CALCIUM (BEAKER) (test 9.3 mg/dL 8.4-10.2 yzsd=988) EGFR (BEAKER) (test 58 mL/min/1.73 sq m ESTIMATED GFR IS NOT cagx=0303) ACCURATE CREATININE CLEARANCE IN PREDICTING GLOMERULAR FILTRATION RATE. ESTIMATED GFR IS NOT APPLICABLE FOR DIALYSIS PATIENTS. POCT-GLUCOSE [id number] 15:40:00 Test Item Value Reference Range Comments POC-GLUCOSE METER (BEAKER) 95 mg/dL 70-110 TESTED AT [address] (test kydx=8670) [place] [address] POCT-GLUCOSE [id number] 11:47:00 Test Item Value Reference Range Comments POC-GLUCOSE METER (BEAKER) 101 mg/dL 70-110 TESTED AT [address] (test qhea=2802) [place] [id number] POCT-GLUCOSE [id number] 07:32:00 Test Item Value Reference Range Comments POC-GLUCOSE METER (BEAKER) 88 mg/dL 70-110 TESTED AT [address] (test rlgm=7134) [place] [id number] CBC W/PLT COUNT & AUTO [id number] 07:32:00 Test Item Value Reference Range Comments WHITE BLOOD CELL COUNT (BEAKER) (test rcnc=346) 9.1 K/ L 4.0-10.0 RED BLOOD CELL COUNT (BEAKER) (test nymv=525) 4.02 M/ L 4.00-5.00 HEMOGLOBIN (BEAKER) (test yynz=117) 12.2 GM/DL 12.0-15.0 HEMATOCRIT (BEAKER) (test tywx=985) 36.3 % 36.0-45.0 MEAN CORPUSCULAR VOLUME (BEAKER) (test uzsz=627) 90.3 fL 82.0-99.0 MEAN CORPUSCULAR HEMOGLOBIN (BEAKER) (test 30.3 pg 27.0-33.0 wpfi=104) MEAN CORPUSCULAR HEMOGLOBIN CONC (BEAKER) (test 33.6 GM/DL 32.0-36.0 khvh=531) RED CELL DISTRIBUTION WIDTH (BEAKER) (test 12.5 % 10.3-14.2 azmg=832) PLATELET COUNT (BEAKER) (test hhnh=911) 265 K/CU MM 150-430 MEAN PLATELET VOLUME (BEAKER) (test yjwh=053) 6.7 fL 6.5-10.5 NUCLEATED RED BLOOD CELLS (BEAKER) (test 0 /100 WBC 0-0 uezc=033) NEUTROPHILS RELATIVE PERCENT (BEAKER) (test 65 % uoxh=351) LYMPHOCYTES RELATIVE PERCENT (BEAKER) (test 21 % pdjf=384) MONOCYTES RELATIVE PERCENT (BEAKER) (test 9 % nvwv=527) EOSINOPHILS RELATIVE PERCENT (BEAKER) (test 4 % veds=570) BASOPHILS RELATIVE PERCENT (BEAKER) (test 1 % jydf=932) NEUTROPHILS ABSOLUTE COUNT (BEAKER) (test 5.89 K/ L 1.80-8.00 fngj=642) LYMPHOCYTES ABSOLUTE COUNT (BEAKER) (test 1.94 K/ L 1.48-4.50 kbwy=779) MONOCYTES ABSOLUTE COUNT (BEAKER) (test 0.84 K/ L 0.00-1.30 bdky=068) EOSINOPHILS ABSOLUTE COUNT (BEAKER) (test 0.33 K/ L 0.00-0.50 bfop=207) BASOPHILS ABSOLUTE COUNT (BEAKER) (test 0.08 K/ L 0.00-0.20 qykq=932) 0.00BASIC METABOLIC [id number] 06:23:00 Test Item Value Reference Range Comments SODIUM (BEAKER) (test 137 meq/L 136-145 durc=549) POTASSIUM (BEAKER) (test 4.0 meq/L 3.5-5.1 gyep=866) CHLORIDE (BEAKER) (test 107 meq/L 98-107 flxh=755) CO2 (BEAKER) (test 19 meq/L 22-29 eggk=211) BLOOD UREA NITROGEN 17 mg/dL 7-21 (BEAKER) (test kxdx=111) CREATININE (BEAKER) (test 0.84 mg/dL 0.57-1.25 blac=827) GLUCOSE RANDOM (BEAKER) 88 mg/dL 70-105 (test aftp=641) CALCIUM (BEAKER) (test 9.2 mg/dL 8.4-10.2 sjsp=708) EGFR (BEAKER) (test 69 mL/min/1.73 sq m ESTIMATED GFR IS NOT zgrv=4634) ACCURATE CREATININE CLEARANCE IN PREDICTING GLOMERULAR FILTRATION RATE. ESTIMATED GFR IS NOT APPLICABLE FOR DIALYSIS PATIENTS. [id number] 06:23:00 Test Item Value Reference Range Comments MAGNESIUM (BEAKER) (test qnnq=976) 1.6 mg/dL 1.6-2.6 [id number] 06:23:00 Test Item Value Reference Range Comments PHOSPHORUS (BEAKER) (test fkbh=494) 3.6 mg/dL 2.3-4.7 PROTHROMBIN [id number] 06:15:00 Test Item Value Reference Range Comments PROTIME (BEAKER) (test mgni=828) 14.9 seconds 11.7-14.7 INR (BEAKER) (test prfr=354) 1.2 <=5.9 RECOMMENDED COUMADIN/WARFARIN INR THERAPY RANGESSTANDARD DOSE: 2.0 - 3.0 Includes: PROPHYLAXIS forvenous thrombosis, systemic embolization; TREATMENT for venous thrombosis and/or pulmonary embolus.HIGH RISK: Target INR is 2.5-3.5 for patients with mechanical heart valves.While on warfarin.POCT-GLUCOSE [id number] 20:47:00 Test Item Value Reference Range Comments POC-GLUCOSE METER (BEAKER) 108 mg/dL 70-110 TESTED AT [facility] [address] [facility] (test xibk=2046) [facility] [address] BASIC METABOLIC [id number] 18:12:00 Test Item Value Reference Range Comments SODIUM (BEAKER) (test 136 meq/L 136-145 nodc=298) POTASSIUM (BEAKER) (test 4.2 meq/L 3.5-5.1 nocr=260) CHLORIDE (BEAKER) (test 105 meq/L 98-107 zdih=309) CO2 (BEAKER) (test 23 meq/L 22-29 hgaw=105) BLOOD UREA NITROGEN 22 mg/dL 7-21 (BEAKER) (test bjwd=810) CREATININE (BEAKER) (test 0.98 mg/dL 0.57-1.25 ucaw=980) GLUCOSE RANDOM (BEAKER) 168 mg/dL 70-105 (test yjer=607) CALCIUM (BEAKER) (test 9.4 mg/dL 8.4-10.2 rihw=116) EGFR (BEAKER) (test 58 mL/min/1.73 sq m ESTIMATED GFR IS NOT wnfc=3763) ACCURATE CREATININE CLEARANCE IN PREDICTING GLOMERULAR FILTRATION RATE. ESTIMATED GFR IS NOT APPLICABLE FOR DIALYSIS PATIENTS. POCT-GLUCOSE [id number] 17:53:00 Test Item Value Reference Range Comments POC-GLUCOSE METER (BEAKER) 165 mg/dL 70-110 TESTED AT [address] (test xzag=7163) [place] [address] PROTHROMBIN [id number] 13:53:00 Test Item Value Reference Range Comments PROTIME (BEAKER) (test nugb=772) 14.7 seconds 11.7-14.7 INR (BEAKER) (test mofe=149) 1.2 <=5.9 RECOMMENDED COUMADIN/WARFARIN INR THERAPY RANGESSTANDARD DOSE: 2.0 - 3.0 Includes: PROPHYLAXIS forvenous thrombosis, systemic embolization; TREATMENT for venous thrombosis and/or pulmonary embolus.HIGH RISK: Target INR is 2.5-3.5 for patients with mechanical heart valves.POCT-GLUCOSE [id number] 11:49:00 Test Item Value Reference Range Comments POC-GLUCOSE METER (BEAKER) 120 mg/dL 70-110 TESTED AT [address] (test utgr=2917) [place] [address] POCT-GLUCOSE [id number] 07:58:00 Test Item Value Reference Range Comments POC-GLUCOSE METER (BEAKER) 94 mg/dL 70-110 TESTED AT [address] (test gzcb=9713) [place] [address] [id number] 07:23:00 Test Item Value Reference Range Comments PHOSPHORUS (BEAKER) (test cetp=100) 3.6 mg/dL 2.3-4.7 [id number] 07:23:00 Test Item Value Reference Range Comments MAGNESIUM (BEAKER) (test tzbv=144) 1.8 mg/dL 1.6-2.6 BASIC METABOLIC [id number] 07:23:00 Test Item Value Reference Range Comments SODIUM (BEAKER) (test 136 meq/L 136-145 ymnf=876) POTASSIUM (BEAKER) (test 3.9 meq/L 3.5-5.1 qilf=237) CHLORIDE (BEAKER) (test 106 meq/L 98-107 woto=050) CO2 (BEAKER) (test 19 meq/L 22-29 mxvl=557) BLOOD UREA NITROGEN 19 mg/dL 7-21 (BEAKER) (test bgme=496) CREATININE (BEAKER) (test 0.91 mg/dL 0.57-1.25 yasf=852) GLUCOSE RANDOM (BEAKER) 84 mg/dL 70-105 (test pmhv=843) CALCIUM (BEAKER) (test 9.6 mg/dL 8.4-10.2 vawh=323) EGFR (BEAKER) (test 63 mL/min/1.73 sq m ESTIMATED GFR IS NOT ylfp=8700) ACCURATE CREATININE CLEARANCE IN PREDICTING GLOMERULAR FILTRATION RATE. ESTIMATED GFR IS NOT APPLICABLE FOR DIALYSIS PATIENTS. CBC W/PLT COUNT & AUTO [id number] 07:15:00 Test Item Value Reference Range Comments WHITE BLOOD CELL COUNT (BEAKER) (test agqz=774) 8.7 K/ L 4.0-10.0 RED BLOOD CELL COUNT (BEAKER) (test oplq=288) 4.25 M/ L 4.00-5.00 HEMOGLOBIN (BEAKER) (test akgs=712) 12.5 GM/DL 12.0-15.0 HEMATOCRIT (BEAKER) (test hpkc=704) 38.6 % 36.0-45.0 MEAN CORPUSCULAR VOLUME (BEAKER) (test blor=023) 90.9 fL 82.0-99.0 MEAN CORPUSCULAR HEMOGLOBIN (BEAKER) (test 29.5 pg 27.0-33.0 nlbq=101) MEAN CORPUSCULAR HEMOGLOBIN CONC (BEAKER) (test 32.4 GM/DL 32.0-36.0 tcip=792) RED CELL DISTRIBUTION WIDTH (BEAKER) (test 12.5 % 10.3-14.2 aiti=139) PLATELET COUNT (BEAKER) (test dgbs=248) 275 K/CU MM 150-430 MEAN PLATELET VOLUME (BEAKER) (test rhil=474) 6.7 fL 6.5-10.5 NUCLEATED RED BLOOD CELLS (BEAKER) (test 0 /100 WBC 0-0 xusq=797) NEUTROPHILS RELATIVE PERCENT (BEAKER) (test 63 % atux=533) LYMPHOCYTES RELATIVE PERCENT (BEAKER) (test 24 % eskr=369) MONOCYTES RELATIVE PERCENT (BEAKER) (test 8 % bunj=498) EOSINOPHILS RELATIVE PERCENT (BEAKER) (test 5 % pqus=997) BASOPHILS RELATIVE PERCENT (BEAKER) (test 1 % idta=269) NEUTROPHILS ABSOLUTE COUNT (BEAKER) (test 5.47 K/ L 1.80-8.00 khbm=515) LYMPHOCYTES ABSOLUTE COUNT (BEAKER) (test 2.05 K/ L 1.48-4.50 vktq=007) MONOCYTES ABSOLUTE COUNT (BEAKER) (test 0.73 K/ L 0.00-1.30 onxg=023) EOSINOPHILS ABSOLUTE COUNT (BEAKER) (test 0.40 K/ L 0.00-0.50 exxy=863) BASOPHILS ABSOLUTE COUNT (BEAKER) (test 0.07 K/ L 0.00-0.20 roxt=077) 0.00POCT-GLUCOSE [id number] 20:44:00 Test Item Value Reference Range Comments POC-GLUCOSE METER (BEAKER) 164 mg/dL 70-110 TESTED AT [facility] [address] [facility] (test cojn=2784) [facility] [address] BASIC METABOLIC [id number] 19:53:00 Test Item Value Reference Range Comments SODIUM (BEAKER) (test 137 meq/L 136-145 gpik=780) POTASSIUM (BEAKER) (test 4.1 meq/L 3.5-5.1 pfll=305) CHLORIDE (BEAKER) (test 103 meq/L 98-107 jkxk=827) CO2 (BEAKER) (test 23 meq/L 22-29 ugni=632) BLOOD UREA NITROGEN 20 mg/dL 7-21 (BEAKER) (test hsay=363) CREATININE (BEAKER) (test 1.15 mg/dL 0.57-1.25 eqrz=446) GLUCOSE RANDOM (BEAKER) 157 mg/dL 70-105 (test eogo=969) CALCIUM (BEAKER) (test 9.8 mg/dL 8.4-10.2 odre=944) EGFR (BEAKER) (test 48 mL/min/1.73 sq m ESTIMATED GFR IS NOT bkpr=4261) ACCURATE CREATININE CLEARANCE IN PREDICTING GLOMERULAR FILTRATION RATE. ESTIMATED GFR IS NOT APPLICABLE FOR DIALYSIS PATIENTS. POCT-GLUCOSE [id number] 17:25:00 Test Item Value Reference Range Comments POC-GLUCOSE METER (BEAKER) 97 mg/dL 70-110 TESTED AT [address] (test irhl=4439) [place] [address] CLOSTRIDIUM DIFFICILE TOXIN [id number] 15:24:00 Test Item Value Reference Range Comments CLOSTRIDIUM DIFFICILE TOXIN, PCR ([employer]) (test Not Detected Not Detected zybl=5657) This qualitative real-time polymerase chain reaction assay [...] of a positive result is not recommended.POCT-GLUCOSE [id number] 12:30:00 Test Item Value Reference Range Comments POC-GLUCOSE METER (BEAKER) 110 mg/dL 70-110 TESTED AT [address] (test yzwx=2524) [place] [address] POCT-GLUCOSE [id number] 07:56:00 Test Item Value Reference Range Comments POC-GLUCOSE METER (BEAKER) 94 mg/dL 70-110 TESTED AT [address] (test uhnq=2158) [place] [address] HEMOGLOBIN [id number] 07:48:00 Test Item Value Reference Range Comments HEMOGLOBIN A1C (BEAKER) (test mlpc=321) 5.4 % 4.3-6.1 CBC W/PLT COUNT & AUTO [id number] 06:42:00 Test Item Value Reference Range Comments WHITE BLOOD CELL COUNT (BEAKER) (test rqxh=107) 8.0 K/ L 4.0-10.0 RED BLOOD CELL COUNT (BEAKER) (test djmw=463) 4.65 M/ L 4.00-5.00 HEMOGLOBIN (BEAKER) (test unlj=045) 13.6 GM/DL 12.0-15.0 HEMATOCRIT (BEAKER) (test nxij=107) 41.6 % 36.0-45.0 MEAN CORPUSCULAR VOLUME (BEAKER) (test kegi=518) 89.3 fL 82.0-99.0 MEAN CORPUSCULAR HEMOGLOBIN (BEAKER) (test 29.2 pg 27.0-33.0 irla=289) MEAN CORPUSCULAR HEMOGLOBIN CONC (BEAKER) (test 32.7 GM/DL 32.0-36.0 lqch=348) RED CELL DISTRIBUTION WIDTH (BEAKER) (test 13.6 % 10.3-14.2 wvcg=658) PLATELET COUNT (BEAKER) (test uwbr=616) 247 K/CU MM 150-430 MEAN PLATELET VOLUME (BEAKER) (test lnzm=877) 6.9 fL 6.5-10.5 NUCLEATED RED BLOOD CELLS (BEAKER) (test 0 /100 WBC 0-0 gtkw=727) NEUTROPHILS RELATIVE PERCENT (BEAKER) (test 68 % jeps=125) LYMPHOCYTES RELATIVE PERCENT (BEAKER) (test 18 % zsbo=430) MONOCYTES RELATIVE PERCENT (BEAKER) (test 10 % kdgq=749) EOSINOPHILS RELATIVE PERCENT (BEAKER) (test 3 % sjmw=314) BASOPHILS RELATIVE PERCENT (BEAKER) (test 1 % zzcl=394) NEUTROPHILS ABSOLUTE COUNT (BEAKER) (test 5.42 K/ L 1.80-8.00 hiia=662) LYMPHOCYTES ABSOLUTE COUNT (BEAKER) (test 1.47 K/ L 1.48-4.50 ygpx=487) MONOCYTES ABSOLUTE COUNT (BEAKER) (test 0.76 K/ L 0.00-1.30 tvwx=914) EOSINOPHILS ABSOLUTE COUNT (BEAKER) (test 0.27 K/ L 0.00-0.50 ogwb=391) BASOPHILS ABSOLUTE COUNT (BEAKER) (test 0.06 K/ L 0.00-0.20 jhmh=231) [id number] 06:06:00 Test Item Value Reference Range Comments PHOSPHORUS (BEAKER) (test jmtp=641) 3.7 mg/dL 2.3-4.7 [id number] 06:06:00 Test Item Value Reference Range Comments MAGNESIUM (BEAKER) (test lctn=881) 1.4 mg/dL 1.6-2.6 BASIC METABOLIC [id number] 06:06:00 Test Item Value Reference Range Comments SODIUM (BEAKER) (test 138 meq/L 136-145 shtl=804) POTASSIUM (BEAKER) (test 3.3 meq/L 3.5-5.1 atym=683) CHLORIDE (BEAKER) (test 103 meq/L 98-107 brvm=638) CO2 (BEAKER) (test 22 meq/L 22-29 axpy=070) BLOOD UREA NITROGEN 22 mg/dL 7-21 (BEAKER) (test dotf=993) CREATININE (BEAKER) (test 1.01 mg/dL 0.57-1.25 yqpa=396) GLUCOSE RANDOM (BEAKER) 91 mg/dL 70-105 (test mccs=945) CALCIUM (BEAKER) (test 9.6 mg/dL 8.4-10.2 rldr=557) EGFR (BEAKER) (test 56 mL/min/1.73 sq m ESTIMATED GFR IS NOT umjg=1859) ACCURATE CREATININE CLEARANCE IN PREDICTING GLOMERULAR FILTRATION RATE. ESTIMATED GFR IS NOT APPLICABLE FOR DIALYSIS PATIENTS. POCT-GLUCOSE [id number] 21:04:00 Test Item Value Reference Range Comments POC-GLUCOSE METER (BEAKER) 100 mg/dL 70-110 TESTED AT [facility] [address] [facility] (test wxwx=3020) [facility] [address] BASIC METABOLIC [id number] 20:03:00 Test Item Value Reference Range Comments SODIUM (BEAKER) (test 138 meq/L 136-145 rvrb=159) POTASSIUM (BEAKER) (test 3.8 meq/L 3.5-5.1 draf=976) CHLORIDE (BEAKER) (test 102 meq/L 98-107 ucjz=140) CO2 (BEAKER) (test 20 meq/L 22-29 kmfc=594) BLOOD UREA NITROGEN 26 mg/dL 7-21 (BEAKER) (test fpof=222) CREATININE (BEAKER) (test 1.16 mg/dL 0.57-1.25 xxxz=893) GLUCOSE RANDOM (BEAKER) 99 mg/dL 70-105 (test whfj=059) CALCIUM (BEAKER) (test 10.0 mg/dL 8.4-10.2 nztw=621) EGFR (BEAKER) (test 48 mL/min/1.73 sq m ESTIMATED GFR IS NOT eeuh=0853) ACCURATE CREATININE CLEARANCE IN PREDICTING GLOMERULAR FILTRATION RATE. ESTIMATED GFR IS NOT APPLICABLE FOR DIALYSIS PATIENTS. POCT-GLUCOSE [id number] 15:45:00 Test Item Value Reference Range Comments POC-GLUCOSE METER (BEAKER) 130 mg/dL 70-110 TESTED AT [address] (test bssh=3947) [facility] [address] POCT-GLUCOSE [id number] 11:20:00 Test Item Value Reference Range Comments POC-GLUCOSE METER (BEAKER) 102 mg/dL 70-110 TESTED AT [address] (test ouuj=9105) [place] [id number] HEMOGLOBIN [id number] 08:50:00 Test Item Value Reference Range Comments HEMOGLOBIN A1C (BEAKER) (test nsum=285) 5.6 % 4.3-6.1 [id number] 05:44:00 Test Item Value Reference Range Comments PHOSPHORUS (BEAKER) (test jnvd=477) 3.4 mg/dL 2.3-4.7 [id number] 05:44:00 Test Item Value Reference Range Comments MAGNESIUM (BEAKER) (test lwpw=823) 1.7 mg/dL 1.6-2.6 BASIC METABOLIC [id number] 05:44:00 Test Item Value Reference Range Comments SODIUM (BEAKER) (test 138 meq/L 136-145 picj=616) POTASSIUM (BEAKER) (test 3.9 meq/L 3.5-5.1 hvsi=645) CHLORIDE (BEAKER) (test 104 meq/L 98-107 svib=565) CO2 (BEAKER) (test 20 meq/L 22-29 zekd=347) BLOOD UREA NITROGEN 27 mg/dL 7-21 (BEAKER) (test vxdg=357) CREATININE (BEAKER) (test 1.19 mg/dL 0.57-1.25 tqee=039) GLUCOSE RANDOM (BEAKER) 87 mg/dL 70-105 (test qwhx=854) CALCIUM (BEAKER) (test 9.9 mg/dL 8.4-10.2 dash=175) EGFR (BEAKER) (test 46 mL/min/1.73 sq m ESTIMATED GFR IS NOT ompm=9530) ACCURATE CREATININE CLEARANCE IN PREDICTING GLOMERULAR FILTRATION RATE. ESTIMATED GFR IS NOT APPLICABLE FOR DIALYSIS PATIENTS. CBC W/PLT COUNT & AUTO [id number] 05:39:00 Test Item Value Reference Range Comments WHITE BLOOD CELL COUNT (BEAKER) (test zgvp=399) 10.3 K/ L 4.0-10.0 RED BLOOD CELL COUNT (BEAKER) (test cuab=735) 4.36 M/ L 4.00-5.00 HEMOGLOBIN (BEAKER) (test qovw=632) 12.9 GM/DL 12.0-15.0 HEMATOCRIT (BEAKER) (test unqm=966) 39.0 % 36.0-45.0 MEAN CORPUSCULAR VOLUME (BEAKER) (test vwap=400) 89.3 fL 82.0-99.0 MEAN CORPUSCULAR HEMOGLOBIN (BEAKER) (test 29.6 pg 27.0-33.0 wbyx=076) MEAN CORPUSCULAR HEMOGLOBIN CONC (BEAKER) (test 33.2 GM/DL 32.0-36.0 daii=528) RED CELL DISTRIBUTION WIDTH (BEAKER) (test 13.4 % 10.3-14.2 bfgx=794) PLATELET COUNT (BEAKER) (test sbfp=655) 257 K/CU MM 150-430 MEAN PLATELET VOLUME (BEAKER) (test uzwt=782) 6.8 fL 6.5-10.5 NUCLEATED RED BLOOD CELLS (BEAKER) (test 0 /100 WBC 0-0 spkl=285) NEUTROPHILS RELATIVE PERCENT (BEAKER) (test 73 % qfca=421) LYMPHOCYTES RELATIVE PERCENT (BEAKER) (test 15 % sjlq=922) MONOCYTES RELATIVE PERCENT (BEAKER) (test 9 % gwxw=132) EOSINOPHILS RELATIVE PERCENT (BEAKER) (test 3 % earu=347) BASOPHILS RELATIVE PERCENT (BEAKER) (test 1 % ioxx=766) NEUTROPHILS ABSOLUTE COUNT (BEAKER) (test 7.48 K/ L 1.80-8.00 prnn=264) LYMPHOCYTES ABSOLUTE COUNT (BEAKER) (test 1.49 K/ L 1.48-4.50 sedj=800) MONOCYTES ABSOLUTE COUNT (BEAKER) (test 0.94 K/ L 0.00-1.30 lvdm=474) EOSINOPHILS ABSOLUTE COUNT (BEAKER) (test 0.30 K/ L 0.00-0.50 pmnm=822) BASOPHILS ABSOLUTE COUNT (BEAKER) (test 0.07 K/ L 0.00-0.20 rgzd=786) 0.00POCT-GLUCOSE [id number] 23:15:00 Test Item Value Reference Range Comments POC-GLUCOSE METER (BEAKER) 83 mg/dL 70-110 TESTED AT [address] (test acvj=6509) [facility] [id number] POCT-GLUCOSE [id number] 17:19:00 Test Item Value Reference Range Comments POC-GLUCOSE METER (BEAKER) 82 mg/dL 70-110 TESTED AT [address] (test ffyc=7690) [facility] [address] POCT-GLUCOSE [id number] 12:57:00 Test Item Value Reference Range Comments POC-GLUCOSE METER (BEAKER) 124 mg/dL 70-110 TESTED AT [address] (test spsn=0810) [facility] [address] HEMOGLOBIN [id number] 10:12:00 Test Item Value Reference Range Comments HEMOGLOBIN A1C (BEAKER) (test xnea=849) 5.6 % 4.3-6.1 CBC W/PLT COUNT & AUTO [id number] 06:14:00 Test Item Value Reference Range Comments WHITE BLOOD CELL COUNT (BEAKER) (test jmyv=613) 12.1 K/ L 4.0-10.0 RED BLOOD CELL COUNT (BEAKER) (test izca=484) 4.29 M/ L 4.00-5.00 HEMOGLOBIN (BEAKER) (test akmh=884) 12.5 GM/DL 12.0-15.0 HEMATOCRIT (BEAKER) (test mlat=582) 38.8 % 36.0-45.0 MEAN CORPUSCULAR VOLUME (BEAKER) (test uerr=079) 90.4 fL 82.0-99.0 MEAN CORPUSCULAR HEMOGLOBIN (BEAKER) (test 29.2 pg 27.0-33.0 fzln=528) MEAN CORPUSCULAR HEMOGLOBIN CONC (BEAKER) (test 32.3 GM/DL 32.0-36.0 cvto=767) RED CELL DISTRIBUTION WIDTH (BEAKER) (test 12.5 % 10.3-14.2 agzs=552) PLATELET COUNT (BEAKER) (test dojl=187) 263 K/CU MM 150-430 MEAN PLATELET VOLUME (BEAKER) (test wfwr=323) 7.3 fL 6.5-10.5 NUCLEATED RED BLOOD CELLS (BEAKER) (test 0 /100 WBC 0-0 rijb=700) NEUTROPHILS RELATIVE PERCENT (BEAKER) (test 73 % mshz=309) LYMPHOCYTES RELATIVE PERCENT (BEAKER) (test 15 % jhxx=007) MONOCYTES RELATIVE PERCENT (BEAKER) (test 10 % mnou=999) EOSINOPHILS RELATIVE PERCENT (BEAKER) (test 2 % romg=459) BASOPHILS RELATIVE PERCENT (BEAKER) (test 0 % rbvx=582) NEUTROPHILS ABSOLUTE COUNT (BEAKER) (test 8.87 K/ L 1.80-8.00 wkhi=201) LYMPHOCYTES ABSOLUTE COUNT (BEAKER) (test 1.79 K/ L 1.48-4.50 nscy=087) MONOCYTES ABSOLUTE COUNT (BEAKER) (test 1.18 K/ L 0.00-1.30 wauw=495) EOSINOPHILS ABSOLUTE COUNT (BEAKER) (test 0.22 K/ L 0.00-0.50 qirj=971) BASOPHILS ABSOLUTE COUNT (BEAKER) (test 0.04 K/ L 0.00-0.20 ndxu=182) [id number] 05:43:00 Test Item Value Reference Range Comments PHOSPHORUS (BEAKER) (test vhsm=897) 4.1 mg/dL 2.3-4.7 [id number] 05:43:00 Test Item Value Reference Range Comments MAGNESIUM (BEAKER) (test ddeq=139) 1.9 mg/dL 1.6-2.6 BASIC METABOLIC [id number] 05:43:00 Test Item Value Reference Range Comments SODIUM (BEAKER) (test 137 meq/L 136-145 wvbr=006) POTASSIUM (BEAKER) (test 3.8 meq/L 3.5-5.1 payo=257) CHLORIDE (BEAKER) (test 102 meq/L 98-107 pslj=626) CO2 (BEAKER) (test 24 meq/L 22-29 nizx=216) BLOOD UREA NITROGEN 29 mg/dL 7-21 (BEAKER) (test jizm=066) CREATININE (BEAKER) (test 1.28 mg/dL 0.57-1.25 pgwm=360) GLUCOSE RANDOM (BEAKER) 100 mg/dL 70-105 (test tvyh=961) CALCIUM (BEAKER) (test 9.9 mg/dL 8.4-10.2 qwql=281) EGFR (BEAKER) (test 43 mL/min/1.73 sq m ESTIMATED GFR IS NOT obqm=9595) ACCURATE CREATININE CLEARANCE IN PREDICTING GLOMERULAR FILTRATION RATE. ESTIMATED GFR IS NOT APPLICABLE FOR DIALYSIS PATIENTS. POCT-GLUCOSE [id number] 05:12:00 Test Item Value Reference Range Comments POC-GLUCOSE METER (BEAKER) 89 mg/dL 70-110 TESTED AT [facility] [address] [facility] (test tqwe=9938) [facility] [address] POCT-GLUCOSE [id number] 00:07:00 Test Item Value Reference Range Comments POC-GLUCOSE METER (BEAKER) 92 mg/dL 70-110 TESTED AT [address] (test dlys=7650) [facility] [id number] [id number] 23:51:00 Test Item Value Reference Range Comments PROTIME (BEAKER) (test sexu=263) 15.5 seconds 11.7-14.7 INR (BEAKER) (test lzpw=950) 1.2 <=5.9 PARTIAL THROMBOPLASTIN TIME (BEAKER) (test 36.5 seconds 22.5-36.0 rcnw=327) RECOMMENDED COUMADIN/WARFARIN INR THERAPY RANGESSTANDARD DOSE: 2.0 - 3.0 Includes: PROPHYLAXIS forvenous thrombosis, systemic embolization; TREATMENT for venous thrombosis and/or pulmonary embolus.HIGH RISK: Target INR is 2.5-3.5 for patients with mechanical heart valves.[id number] 23:49:00 Test Item Value Reference Range Comments MAGNESIUM (BEAKER) (test 1.9 mg/dL 1.6-2.6 Specimen slightly hemolyzed vzwh=237) [id number] 23:49:00 Test Item Value Reference Range Comments PHOSPHORUS (BEAKER) (test 3.4 mg/dL 2.3-4.7 Specimen slightly hemolyzed wrnz=038) BASIC METABOLIC [id number] 23:49:00 Test Item Value Reference Range Comments SODIUM (BEAKER) (test 136 meq/L 136-145 brjk=747) POTASSIUM (BEAKER) (test 4.1 meq/L 3.5-5.1 Specimen slightly dfxd=455) hemolyzed CHLORIDE (BEAKER) (test 100 meq/L 98-107 qlhm=064) CO2 (BEAKER) (test 21 meq/L 22-29 vlxq=387) BLOOD UREA NITROGEN 28 mg/dL 7-21 (BEAKER) (test znql=843) CREATININE (BEAKER) (test 1.31 mg/dL 0.57-1.25 Specimen slightly vjju=703) hemolyzed GLUCOSE RANDOM (BEAKER) 98 mg/dL 70-105 (test rbxx=039) CALCIUM (BEAKER) (test 9.9 mg/dL 8.4-10.2 vblu=985) EGFR (BEAKER) (test 41 mL/min/1.73 sq m ESTIMATED GFR IS NOT bcii=3054) ACCURATE CREATININE CLEARANCE IN PREDICTING GLOMERULAR FILTRATION RATE. ESTIMATED GFR IS NOT APPLICABLE FOR DIALYSIS PATIENTS. CBC W/PLT COUNT & AUTO [id number] 23:38:00 Test Item Value Reference Range Comments WHITE BLOOD CELL COUNT (BEAKER) (test poym=250) 13.2 K/ L 4.0-10.0 RED BLOOD CELL COUNT (BEAKER) (test adbt=042) 4.26 M/ L 4.00-5.00 HEMOGLOBIN (BEAKER) (test qnlo=295) 13.3 GM/DL 12.0-15.0 HEMATOCRIT (BEAKER) (test tzky=777) 38.5 % 36.0-45.0 MEAN CORPUSCULAR VOLUME (BEAKER) (test zqks=211) 90.4 fL 82.0-99.0 MEAN CORPUSCULAR HEMOGLOBIN (BEAKER) (test 31.2 pg 27.0-33.0 kkai=033) MEAN CORPUSCULAR HEMOGLOBIN CONC (BEAKER) (test 34.5 GM/DL 32.0-36.0 ucxq=682) RED CELL DISTRIBUTION WIDTH (BEAKER) (test 12.6 % 10.3-14.2 pmvv=855) PLATELET COUNT (BEAKER) (test ujak=800) 244 K/CU MM 150-430 MEAN PLATELET VOLUME (BEAKER) (test jbpn=943) 7.6 fL 6.5-10.5 NUCLEATED RED BLOOD CELLS (BEAKER) (test 0 /100 WBC 0-0 htbw=267) NEUTROPHILS RELATIVE PERCENT (BEAKER) (test 78 % ratb=215) LYMPHOCYTES RELATIVE PERCENT (BEAKER) (test 11 % rysq=396) MONOCYTES RELATIVE PERCENT (BEAKER) (test 9 % dvhc=831) EOSINOPHILS RELATIVE PERCENT (BEAKER) (test 1 % focv=602) BASOPHILS RELATIVE PERCENT (BEAKER) (test 0 % osbv=002) NEUTROPHILS ABSOLUTE COUNT (BEAKER) (test 10.40 K/ L 1.80-8.00 aowq=212) LYMPHOCYTES ABSOLUTE COUNT (BEAKER) (test 1.49 K/ L 1.48-4.50 wxxu=776) MONOCYTES ABSOLUTE COUNT (BEAKER) (test 1.18 K/ L 0.00-1.30 qtwx=827) EOSINOPHILS ABSOLUTE COUNT (BEAKER) (test 0.12 K/ L 0.00-0.50 buqv=873) BASOPHILS ABSOLUTE COUNT (BEAKER) (test 0.06 K/ L 0.00-0.20 zbzn=004) 0.00URINALYSIS W/ [id number] 22:57:00 Test Item Value Reference Range Comments COLOR (BEAKER) (test nvin=734) Yellow CLARITY (BEAKER) (test eoji=509) Cloudy SPECIFIC GRAVITY UA (BEAKER) (test lcfd=126) 1.013 1.001-1.035 PH UA (BEAKER) (test hhgz=096) 5.5 5.0-8.0 PROTEIN UA (BEAKER) (test wiqb=040) 30 mg/dL Negative GLUCOSE UA (BEAKER) (test vjto=711) Negative Negative KETONES UA (BEAKER) (test ooba=810) Negative Negative BILIRUBIN UA (BEAKER) (test lifk=889) Negative Negative BLOOD UA (BEAKER) (test oqmm=628) Moderate Negative NITRITE UA (BEAKER) (test wrtc=919) Negative Negative LEUKOCYTE ESTERASE UA (BEAKER) (test nfhu=139) Large Negative UROBILINOGEN UA (BEAKER) (test uxdy=156) 2.0 mg/dL 0.2-1.0 RBC UA (BEAKER) (test eskr=860) 34 /HPF WBC UA (BEAKER) (test ugld=625) > /HPF MUCUS (BEAKER) (test fdpg=6818) Rare SOURCE(BEAKER) (test mhoi=0045) Urine, Perez
--- OUTSIDE RECORDS SUMMARY | 2018-02-11 12:01 | XMS REPORT | Clinical Summary ---
:1955 Author Organization [facility] Address [address] [place] [address] Care Team Providers Name Role Phone Arthur [...] General Surgery 12/09/2017 Hospital Encounter General Surgery Mtaeo Quinones Colovesical - MD Alok fistula (Primary 12/16/2017 Dx) 12/08/2017 Orders Only General Surgery Mateo Quinones MD 12/03/2017 Hospital Encounter General Internal [facility] Acute renal failure, unspecified acute renal failure type (Primary Dx); - Medicine MD Savita Urinary tract infection with hematuria, site unspecified; 12/05/2017 George Jacob Colovesical MD Smitha Paulson Thuyen T., MD 12/03/2017 Telephone General Surgery Sheryl Marcos [employer] 12/02/2017 Orders Only General Surgery Mateo Quinones MD 12/01/2017 Pre-Admit Testing Pre-Admission Testing Mateo Quinones Preop examination (Primary Dx); Appointment MD Alok Morbid obesity; Liver disease 11/18/2017 Orders Only General Surgery Sheryl Marcos, [employer] 11/13/2017 Office Visit General Surgery Mateo Quinones Rectovaginal fistula ( Primary Dx); MD Alok Morbid obesity with BMI of 45.0-49.9, adult 11/13/2017 Orders Only General Surgery RandallguruSheryl logan, [employer] 11/13/2017 Orders Only General Surgery RandallguruSheryl logan [employer] 11/13/2017 Orders Only General Surgery Alagugurusamy, Colovesical Sheryl fistula (Primary [place], [employer] Dx) 10/22/2017 Anesthesia Event Gastroenterology Chapo Perez MD 10/22/2017 Procedure Pass Gastroenterology 10/22/2017 Surgery Gastroenterology Mateo Quinones COLONOSCOPY MD Alko 10/20/2017 Hospital Encounter General Surgery JacobElizabeth Colovesical fistula (Primary Dx); - MD Harley Idiopathic pulmonary fibrosis 10/24/2017 after 02/10/2017 Family History Patient is adopted Relation Name [...] INFLUENZA VACCINE 04/15/2018 Implants Implanted Type Area Stone Carriage Operator Device Expiration Model / Identifier Date Serial / Lot Catheter Cv Powerline Dlmn Al 6fr - [id number] Surgical N/A: N/A BARD ACCESS [id number] / Implanted: 12/11/2017 (Quantity not on file) Implants; SYSTEMS / Expanders; Extenders; Surgical Wires Procedures Procedure Name Priority Date/Time Associated Comments Diagnosis DE CRITICAL CARE, E/M Routine 12/03/2017 1:06 Results for this 30-74 MINUTES PM CDT procedure are in the results section. COLONOSCOPY 10/22/2017 8:00 Colovesical fistula AM SHIPPING PROCESSOR ECHOCARDIOGRAM 2D Routine 10/21/2017 8:12 Results for this COMPLETE W MMODE PM SHIPPING PROCESSOR procedure are in SPECTRAL COLOR DOPPLER the results (51229) section. CONSULT TO OSTOMY CARE Routine 10/21/2017 5:38 NURSE AM SHIPPING PROCESSOR after 02/10/2017 Results [facility] lab papsmear custom order (12/18/2017)POC glucose (12/16/2017 7:47 AM) Only the most recent of30 resultswithin the time period is included. Component Value Ref Range POC glucose 112 (H) 65 - 99 mg/dL Comment: [facility] Notified RN Meter ID: [id number] Credit Risk Officer: Mary Lou Elizabeth Specimen Performing Laboratory [facility] DEPARTMENT OF PATHOLOGY AND GENOMIC MEDICINE [address] [place] [address]173 Estimated GFR (12/16/2017 4:00 AM)Only the most [...] and Americans. Specimen Performing Laboratory Plasma specimen [facility] DEPARTMENT OF PATHOLOGY AND [address] [address] Phosphorus level (12/16/2017 4:00 AM)Only the most recent of6 resultswithin the time period is included. Component Value Ref Range Phosphorus 2.6 2.4 - 4.5 mg/dL Specimen Performing Laboratory Plasma specimen [facility] DEPARTMENT PATHOLOGY AND [address] [address] Magnesium level (12/16/2017 4:00 AM)Only the most recent of7 resultswithin the time period is included. Component Value Ref Range Magnesium 2.0 1.6 - 2.4 mg/dL Specimen Performing Laboratory Plasma specimen [facility] PATHOLOGY AND [address] [address] Basic metabolic panel (12/16/2017 4:00 AM)Only the [...] 10.2 mg/dL Specimen Performing Laboratory Plasma specimen [facility] DEPARTMENT PATHOLOGY AND [address] [address] CBC with platelet and differential (12/16/2017 3:40 [...] (promyelocytes, myelocytes, metamyelocytes) Specimen Performing Laboratory Blood [facility] DEPARTMENT OF PATHOLOGY AND GENOMIC MEDICINE [address] [place] [address]24 Uric acid level (12/14/2017 4:00 AM) Component Value Ref Range Uric acid 8.6 (H) 2.4 - 5.7 mg/dL Specimen Performing Laboratory Plasma specimen [facility] DEPARTMENT OF PATHOLOGY AND GENOMIC MEDICINE [address] [place] [address]852 XR Knee 3 Vw Left (12/13/2017 3:42 PM) Specimen Performing Laboratory [facility] [address] [place] [address] Narrative EXAMINATION:XR KNEE 3 VW LEFT CLINICAL HISTORY:FOCAL TENDERNESSKNEE COMPARISON:No Prior IMPRESSION: 1.Severe tricompartmental osteoarthritis of the knee is noted with bone-on- bone contact in the medial and patellofemoral compartments. Chondrocalcinosis in the lateral compartment. No joint effusion. [facility]-[id number] Procedure Note Interface, Radiology Results Incoming - 12/13/2017 8:53 PM CDT EXAMINATION: XR KNEE 3 VW LEFT CLINICAL HISTORY: FOCAL TENDERNESS KNEE COMPARISON: No Prior IMPRESSION: 1. Severe tricompartmental osteoarthritis of the knee is noted with bone-on- bone contact in the medial and patellofemoral compartments. Chondrocalcinosis in the lateral compartment. No joint effusion. [facility]-[id number] IR Tunneled Central Line Placement (12/11/2017 11:24 AM) Specimen Performing Laboratory [facility] [address] [place] [address] Narrative Performing Radiologist Harman Grier MD Assistants None. Anesthesia Type Moderate sedation was administered by the procedure nurse and monitored by the procedure physician for a total moxk-dp-wbed sedation time of 14 minutes. Lidocaine 1% [...] then returned to the venotomy site. A 6-Kittitian Powerline tunneled central venous catheter was then [...] report. Impression: Successful fluoroscopic-guided placement of a 6-Kittitian Powerline tunneled central venous catheter via the right external jugular vein. The catheter tip lies at the right atrium/superior vena cava junction and is ready for use. [facility]-[id number] Procedure Note [facility], Radiology Results Incoming - 12/11/2017 11:34 AM CDT Performing Radiologist Harman Grier MD Assistants None. Anesthesia Type Moderate sedation was administered by the procedure nurse and monitored by the procedure physician for a total ojlk-qi-njww sedation time of 14 minutes. Lidocaine 1% [...] then returned to the venotomy site. A 6-Kittitian Powerline tunneled central venous catheter was then [...] report. Impression: Successful fluoroscopic-guided placement of a 6-Kittitian Powerline tunneled central venous catheter via the right external jugular vein. The catheter tip lies at the right atrium/superior vena cava junction and is ready for use. [facility]-[id number] Type and screen (12/10/2017 3:42 AM)Only the most recent of2 resultswithin the time period is included. Component Value Ref Range ABO grouping B Rh type POS Antibody screen (gel) NEG Specimen Performing Laboratory Blood [facility] DEPARTMENT OF PATHOLOGY AND [facility] MEDICINE [address] [place] [address] Partial thromboplastin time, activated (12/09/2017 5:40 PM)Only the most recent of7 resultswithin the time period is included. Component Value Ref Range PTT 30.4 23.0 - 36.0 sec Comment: PTT therapeutic range for unfractionated heparin is 61.0-112.0 seconds which corresponds to Anti-Xa 0.3-0.7 U/ml. Specimen Performing Laboratory Blood [facility] DEPARTMENT OF PATHOLOGY AND [facility] MEDICINE [address] [place] [address] 31573 Prothrombin time with INR (12/09/2017 5:40 PM)Only [...] vein thrombosis/pulmonary embolism. Specimen Performing Laboratory Blood [facility] DEPARTMENT OF PATHOLOGY AND GENOMIC MEDICINE [address] [place] [address] Ionized calcium (12/09/2017 5:40 PM)Only the most recent of2 resultswithin the time period is included. Component Value Ref Range pH 7.49 Ionized calcium 1.10 (L) 1.11 - 1.32 mmol/L Specimen Performing Laboratory Plasma specimen [facility] DEPARTMENT OF PATHOLOGY AND [facility] [address] [place] [address] 64792 Total iron binding capacity (12/05/2017 5:15 AM) Component Value Ref Range Iron level 42 37 - 145 ug/dL Iron binding capacity 228 200 - 400 ug/dL % Saturation 18.4 15.0 - 38.0 % Specimen Performing Laboratory Plasma specimen [facility] DEPARTMENT OF PATHOLOGY AND [facility] [address] [place] [address] 25786 Vitamin D 25 hydroxy level (12/05/2017 5:15 [...] for alternative methods. Specimen Performing Laboratory Blood [facility] DEPARTMENT OF PATHOLOGY AND [facility] MEDIC[facility] [address] [place] [address]279 Parathyroid hormone (12/05/2017 5:15 AM) Component Value Ref Range PTH 121 (H) 15 - 65 pg/mL Specimen Performing Laboratory Blood [facility] DEPARTMENT OF PATHOLOGY AND [facility] MED[facility] [address] [place] [address] 06755 Ferritin level (12/05/2017 5:15 AM) Component Value Ref Range Ferritin level 51 13 - 150 ng/mL Specimen Performing Laboratory Plasma specimen [facility] DEPARTMENT OF PATHOLOGY AND [facility] [address] [place] [address]36 Hepatic function panel (12/05/2017 5:15 AM)Only the most recent of2 resultswithin the time period is included. Component Value Ref Range Albumin 2.8 (L) 3.5 - 5.0 g/dL Total bilirubin <0.2 0.0 - 1.2 mg/dL Bilirubin direct <0.2 0.0 - 0.3 mg/dL Alkaline phosphatase 62 35 - 104 U/L Protein 7.4 6.3 - 8.3 g/dL Comment: [place] 4.6-7.0 g/dL 1 week 4.4-7.6 g/dL 7 months-1year5.1-7.3 g/dL 1-2 years5.6-7.5 g/dL >3 years6.0-8.0 g/dL 18-150 6.3-8.3 g/dL ALT 9 5 - 50 U/L AST 19 10 - 35 U/L Specimen Performing Laboratory Plasma specimen [facility] DEPARTMENT OF PATHOLOGY AND GENOMIC MEDICINE [address] [place] [address]16 Gastrointestinal panel (12/04/2017 10:00 AM)Only the most [...] Nonpreserved Specimen Performing Laboratory Stool - Nonpreserved [facility] OF PATHOLOGY AND [facility] [address] [place] [address] Troponin (12/04/2017 6:38 AM) Component Value Ref Range Troponin <0.30 0.00 - 0.30 ng/mL Comment: 0.30 - 1.49 ng/mlMay indicate increased risk of acute coronary syndrome. >=1.5 ng/mlConsistent with acute myocardial infarction. The diagnostic value of a single normal or non-diagnostic result is questionable.Serial samples at 2-6 hour intervals are required to rule out acute myocardial injury. Specimen Performing Laboratory Plasma specimen [facility] DEPARTMENT OF PATHOLOGY AND GENOMIC MEDICINE [address] [place] [address] Thyroid stimulating hormone (12/04/2017 6:38 AM)Only the most recent of2 resultswithin the time period is included. Component Value Ref Range TSH 5.91 (H) 0.27 - 4.20 uIU/mL Specimen Performing Laboratory Plasma specimen [facility] DEPARTMENT OF PATHOLOGY AND GENOMIC MEDICINE [address] [place] [address] 20572 T4, free (12/04/2017 6:38 AM) Component Value Ref Range T4, free 1.2 0.9 - 1.7 ng/dL Specimen Performing Laboratory Plasma specimen [facility] DEPARTMENT OF PATHOLOGY AND [facility] [address] [place] [address]207 Lipid panel (12/04/2017 6:38 AM)Only the most recent of2 resultswithin the time period is included. Component Value Ref Range Cholesterol 120 <200 mg/dL Triglycerides 251 (H) <150 mg/dL HDL cholesterol 30 (L) >40 mg/dL LDL cholesterol 51Comment: Result obtained by direct LDL <100 mg/dL measurement Lipid panel interpretation SeeBelow Comment: Total Cholesterol (mg/dL) <200 Desirable 998-802Hobwnksdtg-evxw >=240High Triglycerides (mg/dL) <150 Normal 736-551Bjkjhhkotj-pimb 200-499High >=500Very high HDL Cholesterol (mg/dL) <40Low (male) <40Low (female) LDL Cholesterol (mg/dL) <100 Optimal 100-129Near or above optimal [phone]-mamk 160-189High >=190Very high Risk Catergories that modify [...] (>=200 mg/dL) Specimen Performing Laboratory Plasma specimen [facility] DEPARTMENT OF PATHOLOGY AND GENOMIC MEDICINE [address] [place] [address] Comprehensive metabolic panel (12/04/2017 6:38 AM)Only the [...] 1.2 mg/dL Specimen Performing Laboratory Plasma specimen [facility] DEPARTMENT OF PATHOLOGY AND GENOMIC MEDICINE [address] [place] [address] CT Renal Stone Protocol (12/03/2017 8:15 PM) Specimen Performing Laboratory [address] RENAL STONE PROTOCOL CLINICAL INDICATION:acute [...] of 10/23/2017. 3. Hepatosplenomegaly. Chronic liver disease. [facility]-[id number] Procedure Note [facility], Radiology Results Incoming - 12/03/2017 8:52 [...] of 10/23/2017. 3. Hepatosplenomegaly. Chronic liver disease. [facility]-[id number] C difficile toxin (12/03/2017 4:51 PM)Only the most recent of2 resultswithin the time period is included. Component Value Ref Range Clostridium difficile toxin No Clostridium difficle toxin present Comment: Specimen Information Specimen Source: Stool Specimen Site: Nonpreserved Specimen Performing Laboratory Stool - Nonpreserved [facility] DEPARTMENT OF PATHOLOGY AND GENOMIC MEDICINE [address] [place] [address] [place] Renal (12/03/2017 3:32 PM)Only the most recent of2 resultswithin the time period is included. Specimen Performing Laboratory [facility] [address] [place] [address] Narrative EXAMINATION:US RENAL CLINICAL HISTORY:HYDRONEPHROSIS COMPARISON:None. FINDINGS: [...] IMPRESSION: Bilateral nephrolithiasis with mild left pelviectasis.. [facility]-[id number] Procedure Note Interface, Radiology Results Incoming - [...] IMPRESSION: Bilateral nephrolithiasis with mild left pelviectasis.. [facility]-[id number] Urinalysis screen and microscopy, with reflex to [...] SEE COMMENTComment: Footnote--------- Specimen Performing Laboratory Urine [facility] DEPARTMENT OF PATHOLOGY AND GENOMIC MEDICINE [address] [place] [address] Gram stain (12/03/2017 2:10 PM)Only the most recent of2 resultswithin the time period is included. Component Value Ref Range Gram stain result Few WBC's Many Gram negative rods Many Gram positive rods Many Gram positive cocci in pairs Comment: Specimen Information Specimen Source: Urine Specimen Site: Clean catch Specimen Performing Laboratory Urine [facility] DEPARTMENT OF PATHOLOGY AND GENOMIC MEDICINE [address] [place] [address] Urine culture (12/03/2017 2:10 PM)Only the most recent of3 resultswithin the time period is included. Component Value Ref Range Urine culture isolate Mixed Gram positive medina >10-5 cfu/ml (A) Comment: Specimen Information Specimen Source: Urine Specimen Site: Clean catch Specimen Performing Laboratory Urine [facility] DEPARTMENT OF PATHOLOGY AND GENOMIC MEDICINE [address] [place] [address]60 Manual differential (12/03/2017 2:00 PM) Component Value [...] Enlarged platelets Moderate (A) Specimen Performing Laboratory [facility] DEPARTMENT OF PATHOLOGY AND GENOMIC MEDICINE [address] [place] [address] 10428 CRITICAL CARE (12/03/2017 1:06 PM) Eryn May [...] Range Ventricular rate 73 Atrial rate 73 DE interval 152 QRSD interval 84 QT interval 400 QTC interval 440 P axis 1 46 QRS axis 1 21 T wave axis 35 EKG impression Normal sinus rhythm-Normal ECG- Specimen Performing Laboratory [facility] MUSE [address] [place] [address]11 CBC hemogram (12/01/2017 1:06 PM) Component Value [...] 0.00 /100 WBC Specimen Performing Laboratory Blood [facility] DEPARTMENT OF PATHOLOGY AND GENOMIC MEDICINE [address] [place] [address]09 Hemoglobin A1c (12/01/2017 1:06 PM) Component Value [...] type 1 diabetes. Specimen Performing Laboratory Blood [facility] DEPARTMENT OF PATHOLOGY AND GENOMIC MEDICINE [address] [place] [address] 24394 URINALYSIS, COMPLETE, WITH REFLEX TO CULTURE (11/13/2017 [...] - 1.00 U/mL Specimen Performing Laboratory Blood [facility] DEPARTMENT OF PATHOLOGY AND GENOMIC MEDICINE [address] [place] [address] CT Abdomen Pelvis W Contrast (10/23/2017 5:53 AM) Specimen Performing Laboratory [facility] [address] [place] [address] Narrative EXAMINATION:CT ABDOMEN PELVIS W CONTRAST CLINICAL [...] irregular liver possibly reflecting chronic liver disease. [facility]-[id number] Procedure Note Hm Interface, Radiology Results Incoming - 10/23/2017 6:10 AM SHIPPING PROCESSOR EXAMINATION: CT ABDOMEN PELVIS W CONTRAST CLINICAL [...] irregular liver possibly reflecting chronic liver disease. [facility]-[id number] Echocardiogram complete w contrast and 3D if needed (10/21/2017 8:12 PM) Specimen Performing Laboratory [facility] [address] [place] [address] Narrative Echocardiography Report [address] [place] [facility] [address] [place] [id number] Pat.Name:Susan WADE.ID:[id number] .Date: 10/21/2017Refer.MD:ELIZABETH JACOB MD Exam Time: 6:49:00 PMStudy Type:Routine Echo Height:69inWeight: 308lb BSA: 2.48 m2 DOBAge:1955,62Y Sex: FEMALEBP:126/69 HR:103 bpm Sonogrphr: FIOR Kingsley Pat. Stat.:Inpatient Room:[address] Study Status:Final Echo Event ID:[id number] Order ID:[id number] Reason for Study:Perioperative Eval - Routine perioperative [...] RAPof 5 mmHg. MEASUREMENTS: 2D Parasternal Long [place] LVOT 1.9 cmLA Ds3.4 cm LVIDd4.6 cmIndex 1.9 cm/m Ao An2.1 cm LVIDs2.6 cmAo Rtd 2.9 cm Index1.2 cm/m LV%fs 43.5 % LV Oweb792.5 g(87-129) IVSd 0.8 cmLVM Index 43.8 g/m2 LVPWd0.7 cmRWT0.3 LA Sng Plane LA Area 25.3 cm2(8.8-23.4) LA Vol97.9 ml Index39.5 ml/m LA LngAx 5.3 cm Signed 10/22/2017 08:44 AM Yves Zaragoza MD Procedure Note Interface, Radiology Results In - 10/22/2017 8:44 AM [facility] Echocardiography Report [address] [place] [address] Pat.Name: ROSIO WADE Pat.ID: [id number] .Date: 10/21/2017 Refer.MD: ELIZABETH JACOB MD Exam Time: 6:49:00 PM Study Type:Routine Echo Height: 69in Weight: 308lb BSA: 2.48 m2 Age: 13 1955,62Y Sex: FEMALE BP: 126/69 HR: 103 bpm Sonogrphr: FIOR Kingsley Pat. Stat.:Inpatient Room: [place] [address] A Study Status:Final Echo Event ID:[id number] Order ID: [id number] Reason for Study:Perioperative Eval - Routine perioperative [...] of 5 mmHg. MEASUREMENTS: 2D Parasternal Long [place] LVOT 1.9 cm LA Ds 3.4 cm [...] Portable (10/21/2017 1:33 PM) Specimen Performing Laboratory [facility] [address] [place] [address] Narrative EXAMINATION:XR CHEST 1 VW PORTABLE CLINICAL [...] 4.Regional skeletal structures are within normal limits. [facility]-[id number] Procedure Note Hm Interface, Radiology Results Incoming - 10/21/2017 1:38 PM SHIPPING PROCESSOR EXAMINATION: XR CHEST 1 VW PORTABLE CLINICAL [...] Regional skeletal structures are within normal limits. [facility]-[id number] ECG 12 lead (10/21/2017 1:11 PM) Component Value Ref Range Ventricular rate 96 Atrial rate 96 DE interval 138 QRSD interval 82 QT interval 372 QTC interval 469 P axis 1 7 QRS axis 1 3 T wave axis 45 EKG impression Normal sinus rhythm-Minimal voltage criteria for LVH, may be normal variant-Nonspecific ST and T wave abnormality- Specimen Performing Laboratory [facility] M[facility] [address] [place] [address] Salmonella/shigella culture (10/21/2017 9:09 AM) Component Value Ref Range Salmonella/shigella culture isolate No Aeromonas isolated Comment: Specimen Information Specimen Source: Stool Specimen Site: Nonpreserved Specimen Performing Laboratory Stool - Nonpreserved [facility] DEPARTMENT OF PATHOLOGY AND GENOMIC MEDICINE [address] [place] [address] 70711 Anti Xa, unfractionated (10/21/2017 2:53 AM)Only the most recent of2 resultswithin the time period is included. Component Value Ref Range Anti Xa, unfractionated 1.01 (H) 0.30 - 0.70 U/mL Comment: Therapeutic Range:0.30 - 0.70 U/mL XAUFH results called to and read back by MIMI KOCH/Tres (name/location) at 10/21/201704:55 (date/time) by CS1_. Specimen Performing Laboratory Blood [facility] DEPARTMENT OF PATHOLOGY [facility] MEDICINE [address] [place] [address] Narrative XAUFH added on per Daily Dealy/PHARM Urine eosinophils (10/21/2017 1:30 AM) Component Value Ref Range Eosinophils, urine PRESENT (A) Specimen Performing Laboratory Urine [facility] DEPARTMENT OF PATHOLOGY [facility] [address] [place] [address] 56554 Urea nitrogen, urine, random (10/21/2017 1:30 AM) Component Value Ref Range Urea nitrogen, urine, random 307 mg/dL Specimen Performing Laboratory Urine [facility] DEPARTMENT OF PATHOLOGY [facility] [address] [place] [address] 98920 Sodium level, urine, random (10/21/2017 1:30 AM) Component Value Ref Range Sodium, urine, random 91 mEq/L Specimen Performing Laboratory Urine [facility] DEPARTMENT OF PATHOLOGY [facility] [address] [place] [address] 44442 Protein, urine, random (10/21/2017 1:30 AM) Component Value Ref Range Protein, urine random 69 mg/dL Specimen Performing Laboratory Urine [facility] DEPARTMENT OF PATHOLOGY [facility] [address] [place] [address] 40190 Creatinine level, urine, random (10/21/2017 1:30 AM) Component Value Ref Range Creatinine, urine, random 24 mg/dL Specimen Performing Laboratory Urine [facility] DEPARTMENT OF PATHOLOGY [facility] [address] [place] [address] 80601 Chloride level, urine, random (10/21/2017 1:30 AM) Component Value Ref Range Chloride, urine, random 69 mEq/L Specimen Performing Laboratory Urine [facility] DEPARTMENT OF PATHOLOGY [facility] [address] [place] [address] 11114 T4 (10/21/2017) Component Value Ref Range T4 6.8 4.5 - 11.7 ug/dL Specimen Performing Laboratory Plasma specimen [facility] DEPARTMENT OF PATHOLOGY [facility] [address] [place] [address] Chest External Study (10/20/2017 6:55 PM) Specimen Performing Laboratory [facility] [address] [place] [address] Narrative This exam was not acquired at a [facility] facility and has not been interpreted by a [facility] Provider.The exam was imported into our imaging system for comparisons purposes. XR Chest External Study (10/20/2017 5:10 PM) Specimen Performing Laboratory [facility] [address] [place] [address] Narrative This exam was not acquired at a [facility] facility and has not been interpreted by a [facility] Provider.The exam was imported into our imaging system for comparisons purposes. after 02/10/2017 Insurance Payer Benefit Plan / Group Subscriber ID Type Phone Address IZABELLA PAREKH OPEN ACCESS/NETWORK xxxxxxxxxxx [employer] MEDICARE MEDICARE PART A AND B xxxxxxxxxx Medicare [place], [place] Home: [address] [address] [phone] [place], [place] [id number]
[2018-02-11 13:21] LABS: Absolute Lymphocytes (CBC) 0.9 K/uL (0.7-4.9); Absolute Monocytes 0.4 K/uL (0.1-1.3); Absolute Neutrophil 8.1 K/uL (1.8-8.0); Basophils % 0.7 % (0-1.3); Eosinophils % 1.5 % (0-4.4); Hematocrit 18.9 % (36.0-45.0); Lymphocytes % 9.1 % (15.3-44.8); MCH 27.2 pg (27.0-35.0); MCV 92.2 fL (80-100); MPV 7.7 fL (7.6-11.3); Monocytes % 4.6 % (3.3-12.3); RBC Red Blood Cell Count 2.05 M/uL (3.86-4.86)
[2018-02-11 13:30] LABS: Potassium 4.7 mEq/L (3.6-5.0)
--- NOTE | 2018-02-11 13:33 | ER ---
Nurse's Notes [facility] Name: Rosio Jain Age: 62 yrs Sex: Female : 1955 Arrival Date: 02/11/2018 Time: 12:02 Bed 5 Private MD: Diagnosis: Weakness;Abdominal wound dehisence;Anemia, unspecified-5.6 Presentation: 02/11 12:08 Presenting complaint: Patient states: pt had abdominal surgery on January 20, 2018 at [facility] iw in [place], pt states she had fistula in colon and her jason/incision opened up yesterday, pt also c/o SOB and abd pain. Transition of care: patient was not received from another setting of care. Onset of symptoms was February 10, 2018. Risk Assessment: Do you want to hurt yourself or someone else? Patient reports no desire to harm self or others. Initial Sepsis Screen: Does the patient meet any 2 criteria? No. Patient's initial sepsis screen is negative. Does the patient have a suspected source of infection? No. Patient's initial sepsis screen is negative. Care prior to arrival: None. 12:08 Method Of Arrival: EMS: [facility] iw 12:08 Acuity: DYAN 3 iw Triage Assessment: 12:34 General: Appears in no apparent distress. uncomfortable, Behavior is calm, cooperative, aj1 appropriate for age. Pain: Complains of pain in suprapubic area Pain does not radiate. Pain currently is 6 out of 10 on a pain scale. Quality of pain is described as throbbing. Historical: - Allergies: 12:15 NKA; iw - Home Meds: 12:15 alprazolam 1 mg Oral tab [Active]; citalopram 20 mg tab 1 tab once daily [Active]; iw folic acid 400 mcg Oral tab 1 tab once daily [Active]; furosemide 20 mg Oral tab 1 tab once daily [Active]; levothyroxine 175 mcg tab [Active]; metoprolol tartrate 50 mg Oral tab [Active]; valsartan-hydrochlorothiazide 320-25 mg Oral tab 1 tab once daily [Active]; zolpidem 10 mg Oral tab 1 tab once daily [Active]; - PMHx: 12:35 Hypertension; Hypothyroidism; Diabetes - NIDDM; Anxiety; aj1 - Immunization history:: Flu vaccine is up to date. - Social history:: Smoking status: Patient/guardian denies using tobacco. - Ebola Screening: : Patient denies travel to an Ebola-affected area in the 21 days before illness onset. Screenin:52 Abuse screen: Denies threats or abuse. Denies injuries from another. Nutritional iw screening: No deficits noted. Tuberculosis screening: No symptoms or risk factors identified. 19:57 Fall Risk Secondary diagnosis (15 points) impaired mobility, IV access (20 points). bb Ambulatory Aid- None/Bed Rest/Nurse Assist (0 pts). Gait- Impaired (20 pts.). Mental Status- Oriented to own ability (0 pts). Total Torres Fall Scale indicates High Risk Score (45 or more points). Fall prevention measures have been instituted. Side Rails Up X 2 Family Present and informed to notify staff if the need to leave the bedside As available patient and family educated on Fall Prevention Program and Strategies. Assessment: 12:10 General: Appears in no apparent distress. Behavior is calm, cooperative. Pain: iw Complains of pain in right lower quadrant and left lower quadrant. Neuro: Level of Consciousness is awake, alert, obeys commands, Oriented to person, place, time, Moves all extremities. Full function. Cardiovascular: Patient's skin is warm and dry. Respiratory: Reports shortness of breath Respiratory effort is even, unlabored, Respiratory pattern is regular, symmetrical. GI: surgical jason in place, incision dehisced. Derm: Skin is pale. 12:35 Reassessment: Assisted Dr. Contreras with wound care, jason removed around area of jl7 dehiscence, wound packed wet to dry. 12:57 Reassessment: Patient appears in no apparent distress at this time. Patient and/or iw family updated on plan of care and expected duration. Pain level reassessed. 13:54 Reassessment: Patient appears in no apparent distress at this time. Patient and/or iw family updated on plan of care and expected duration. Pain level reassessed. family at bedside, pt and family updated on POC, pt will be transferred to [facility]. 14:56 Reassessment: Patient appears in no apparent distress at this time. No changes from aj1 previously documented assessment. Patient and/or family updated on plan of care and expected duration. Pain level reassessed. Patient is alert, oriented x 3, equal unlabored respirations, skin warm/dry/pink. 15:30 Reassessment: Bronwyn, from Chief Security Officer at bedside to speak to patient and family, iw will attempt to arrange transportation to follow up appt with Dr. Damon tomorrow. 16:18 Reassessment: Patient appears in no apparent distress at this time. pt consented for iw blood, family at bedside, VSS. 16:25 Reassessment: Blood transfusion started. iw 16:55 Reassessment: IV site appears infiltrated, infusion stopped, IV d/c, pressure dressing iw applied, new IV inserted to LAC, blood transfusion started to LAC, ERP notified. 18:00 Reassessment: Patient appears in no apparent distress at this time. No changes from lp1 previously documented assessment. Patient and/or family updated on plan of care and expected duration. Pain level reassessed. Patient is alert, oriented x 3, equal unlabored respirations, skin warm/dry/pink. 19:09 Reassessment: Ambulated patient in room per orders. Patient tolerated well, assisted to lp1 bedside commode and then back to bed. Patient's family updated, family states they are concerned because she has to go up 3 to 4 stairs to get inside the house and they do not believe that she is able to. Notified Dr. Contreras. 19:58 Reassessment: Patient is alert, oriented x 3, equal unlabored respirations, skin bb warm/dry/pink. IV intact, patent, blood transfusion completed at 1930 with no adverse reactions, family at bedside. 21:03 Reassessment: pt is A\T\O x 4, resp unlabored, states she drank the contrast and had an bb episode of incontinence pt cleaned and linens changed now on bedside commode. 21:13 Reassessment: report called to Maria R FLORES for room 405 instructed receiving nurse on lab bb order for repeat H\T\H ordered for 2129 s/p blood transfusion. Vital Signs: 12:10 BP 97 / 56; Pulse 76; Resp 20 S; Temp 97.5; Pulse Ox 95% on R/A; Weight 134.26 kg; iw Height 5 ft. 4 in. (162.56 cm); Pain 6/10; 12:56 BP 108 / 56; Pulse 72; Resp 20 S; Pulse Ox 100% on R/A; iw 13:55 BP 118 / 66; Pulse 70; Resp 18 S; Pulse Ox 97% on R/A; iw 14:55 BP 108 / 63; Pulse 72; Resp 14; Pulse Ox 96% on R/A; aj1 16:00 BP 115 / 63; Pulse 70; Resp 19; Pulse Ox 97% on R/A; aj1 16:29 BP 116 / 73; Pulse 71; Resp 16 S; Pulse Ox 98% on R/A; iw 19:59 BP 110 / 59; Pulse 80; Resp 20 S; Temp 98.6(O); Pulse Ox 98% on R/A; bb 21:01 BP 120 / 77; Pulse 81; Resp 18 S; Temp 97.9(O); Pulse Ox 95% on R/A; bb 12:10 Body Mass Index 50.81 (134.26 kg, 162.56 cm) iw Vitals: 16:29 Cardiac Rhythm Assessment Regular. iw Ana M Coma Score: 21:01 Eye Response: spontaneous(4). Verbal Response: oriented(5). Motor Response: obeys bb commands(6). Total: 15. ED Course: 12:02 Patient arrived in ED. iw 12:05 Ben Contreras MD is Attending Physician. kdr 12:10 Triage completed. iw 12:10 Arm band placed on. iw 12:10 Patient has correct armband on for positive identification. aj1 12:22 Hilary Rosen, RN is Primary Nurse. aj1 13:11 Initial lab(s) drawn, by ar, sent to lab. Inserted saline lock: 22 gauge in right upper iw arm, using aseptic technique. Blood collected. 13:54 T\T\S collected, blood band applied to patient. iw 14:56 No provider procedures requiring assistance completed. aj1 17:05 Inserted saline lock: 20 gauge in left antecubital area, using aseptic technique. iw 19:15 Derick Coyle MD is Hospitalizing Provider. kdr 20:06 Patient admitted, IV remains in place. bb 21:02 Cleaned of incontinence. Linen changed. bb Administered Medications: No medications were administered Outcome: 13:32 ER care complete, transfer ordered by . kdr 19:16 Decision to Hospitalize by Provider. kdr 19:57 Condition: stable bb 19:57 Instructed on the need for admit. 21:13 Admitted to Tele accompanied by tech, family with patient, via stretcher, room 405, bb with chart, Report called to Maria R FLORES 21:14 Patient left the ED. bb Signatures: Hilary Rosen, RN RN aj1 Ben Contreras MD MD kdr Ballard, Brenda RN RN bb Evelia Ribera RN RN iw Sherley Ward RN RN lp1 Sheila Quintero RN RN jl7 Corrections: (The following items were deleted from the chart) 12:58 12:10 BP 97 / 56; Pulse 76bpm; Resp 20bpm; Spontaneous; Pulse Ox 95% RA; 134.26 kg; iw Height 5 ft. 4 in.; BMI: 50.8; Pain 6/10; iw 17:13 17:12 Inserted saline lock: 20 gauge in left antecubital area, using aseptic technique. iw iw 20:06 19:59 BP 110 / 59; Pulse 80bpm; Resp 20bpm; Spontaneous; Pulse Ox 98% RA; bb bb 21:04 21:01 BP 120 / 77; Pulse 81bpm; Resp 18bpm; Spontaneous; Pulse Ox 95% RA; bb bb
--- NOTE | 2018-02-11 13:33 | EDPHYS ---
Physician Documentation [facility] Name: Rosio Jain Age: 62 yrs Sex: Female : 1955 Arrival Date: 02/11/2018 Time: 12:02 Bed 5 Private MD: ED Physician Ben Contreras HPI: 02/11 17:39 This 62 yrs old Female presents to ER via EMS with complaints of Incision kdr Problem. 17:39 Abdominal wound drainage. Onset: The symptoms/episode began/occurred at an unknown kdr time. Severity of symptoms: At their worst the symptoms were mild moderate just prior to arrival, in the emergency department the symptoms are unchanged. The patient has not experienced similar symptoms in the past. The patient has been recently seen by a physician: Dr. Aguirre. 17:41 The patient had colon surgery at [facility] earlier this month and had one follow-up but has kdr not been back since. She is not aware of how long the wound may have been open. Her daughter reports that the there was purulent drainage from the wound when she found her earlier today. She also reports that the patient was not well kept and may have had fecal material around her. The patient is apparently in bed all day and does not get out. She reports that she is also may be developing bed sores . Historical: - Allergies: 12:15 NKA; iw - Home Meds: 12:15 alprazolam 1 mg Oral tab [Active]; citalopram 20 mg tab 1 tab once daily [Active]; iw folic acid 400 mcg Oral tab 1 tab once daily [Active]; furosemide 20 mg Oral tab 1 tab once daily [Active]; levothyroxine 175 mcg tab [Active]; metoprolol tartrate 50 mg Oral tab [Active]; valsartan-hydrochlorothiazide 320-25 mg Oral tab 1 tab once daily [Active]; zolpidem 10 mg Oral tab 1 tab once daily [Active]; - PMHx: 12:35 Hypertension; Hypothyroidism; Diabetes - NIDDM; Anxiety; aj1 - Immunization history:: Flu vaccine is up to date. - Social history:: Smoking status: Patient/guardian denies using tobacco. - Ebola Screening: : Patient denies travel to an Ebola-affected area in the 21 days before illness onset. ROS: 17:41 Constitutional: Negative for fever, chills, and weight loss - This is a morbidly obese kdr patient who is bed bound and with an open wound on her lower abdomen/panus. It is in the midline of the vertical incision that is otherwise well healing. There is slighty erythema and enduration around the wound but no obvioius purulent drainage at this time. There is a foul smell to the wound. Eyes: Negative for injury, pain, redness, and discharge, ENT: Negative for injury, pain, and discharge, Neck: Negative for injury, pain, and swelling, Cardiovascular: Negative for chest pain, palpitations, and edema, Abdomen/GI: Negative for abdominal pain, nausea, vomiting, diarrhea, and constipation, Back: Negative for injury and pain, MS/Extremity: Negative for injury and deformity, Skin: Negative for injury, rash, and discoloration, Neuro: Negative for headache, weakness, numbness, tingling, and seizure activity. Psych: Negative for depression, anxiety, suicide ideation, homicidal ideation, and hallucinations, Allergy/Immunology: Negative for hives, rash, and allergies, Endocrine: Negative for neck swelling, polydipsia, polyuria, polyphagia, and marked weight changes, Hematologic/Lymphatic: Negative for swollen nodes, abnormal bleeding, and unusual bruising. 17:41 Respiratory: Positive for shortness of breath, on exertion. Exam: 17:41 Constitutional: This is a well developed, well nourished patient who is awake, alert, kdr and in no acute distress. Head/Face: Normocephalic, atraumatic. Eyes: Pupils equal round and reactive to light, extra-ocular motions intact. Lids and lashes normal. Conjunctiva and sclera are non-icteric and not injected. Cornea within normal limits. Periorbital areas with no swelling, redness, or edema. Neck: Trachea midline, no thyromegaly or masses palpated, and no cervical lymphadenopathy. Supple, full range of motion without nuchal rigidity, or vertebral point tenderness. No Meningismus. Chest/axilla: Normal chest wall appearance and motion. Nontender with no deformity. No lesions are appreciated. Cardiovascular: Regular rate and rhythm with a normal S1 and S2. No gallops, murmurs, or rubs. Normal PMI, no JVD. No pulse deficits. Respiratory: Lungs have equal breath sounds bilaterally, clear to auscultation and percussion. No rales, rhonchi or wheezes noted. No increased work of breathing, no retractions or nasal flaring. Back: No spinal tenderness. No costovertebral tenderness. Full range of motion. Skin: Warm, dry with normal turgor. Normal color with no rashes, no lesions, and no evidence of cellulitis. MS/ Extremity: Pulses equal, no cyanosis. Neurovascular intact. Full, normal range of motion. The patient is weak and appears to be generally bed bound Neuro: Awake and alert, GCS 15, oriented to person, place, time, and situation. Cranial nerves II-XII grossly intact. Motor strength 5/5 in all extremities. Sensory grossly intact. Cerebellar exam normal. Normal gait. Psych: Awake, alert, with orientation to person, place and time. Behavior, mood, and affect are within normal limits. 17:41 Abdomen/GI: Inspection: obese scar(s), are noted in the suprapubic area, Midline incision with dehiscence as noted above - \R\ 3 inches. Vital Signs: 12:10 BP 97 / 56; Pulse 76; Resp 20 S; Temp 97.5; Pulse Ox 95% on R/A; Weight 134.26 kg; iw Height 5 ft. 4 in. (162.56 cm); Pain 6/10; 12:56 BP 108 / 56; Pulse 72; Resp 20 S; Pulse Ox 100% on R/A; iw 13:55 BP 118 / 66; Pulse 70; Resp 18 S; Pulse Ox 97% on R/A; iw 14:55 BP 108 / 63; Pulse 72; Resp 14; Pulse Ox 96% on R/A; aj1 16:00 BP 115 / 63; Pulse 70; Resp 19; Pulse Ox 97% on R/A; aj1 16:29 BP 116 / 73; Pulse 71; Resp 16 S; Pulse Ox 98% on R/A; iw 19:59 BP 110 / 59; Pulse 80; Resp 20 S; Temp 98.6(O); Pulse Ox 98% on R/A; bb 21:01 BP 120 / 77; Pulse 81; Resp 18 S; Temp 97.9(O); Pulse Ox 95% on R/A; bb 12:10 Body Mass Index 50.81 (134.26 kg, 162.56 cm) [place] Coma Score: 21:01 Eye Response: spontaneous(4). Verbal Response: oriented(5). Motor Response: obeys bb commands(6). Total: 15. Procedures: 17:41 Wet/thu packing of wound on abdomen after taking out a number of jason that were no kdr longer useful. The base of the wound/fascia appeared to be intact. There patient tolerated well. MDM: 12:05 Patient medically screened. kdr 17:41 Data reviewed: vital signs, nurses notes, lab test result(s), radiologic studies. kdr Counseling: I had a detailed discussion with the patient and/or guardian regarding: the historical points, exam findings, and any diagnostic results supporting the discharge/admit diagnosis, lab results, radiology results. 02/11 12:58 Order name: CBC with Diff [facility] 02/11 12:58 Order name: Chem 7; Complete Time: 13:55 [facility] 02/11 13:29 Order name: CBC Smear Scan [facility] 02/11 13:30 Order name: Type And Screen [facility] 02/11 14:11 Order name: Bb Add On ag 02/11 14:13 Order name: Packed RBC Leukored -1 [facility] 02/11 20:04 Order name: Hematocrit [facility] 02/11 20:04 Order name: Hemoglobin [facility] 02/11 20:31 Order name: Abdomen [facility] Administered Medications: No medications were administered Disposition: 02/11/18 19:16 Hospitalization ordered by Derick Coyle for Observation. Preliminary diagnosis are Weakness, Abdominal wound dehisence, Anemia, unspecified - 5.6. - Bed requested for Telemetry/MedSurg (observation). - Status is Observation. bb - Condition is Fair. - Problem is an acute exacerbation. - Symptoms are unchanged. UTI on Admission? No Signatures: Dispatcher [employer] [facility] Hilary Rosen RN RN aj1 Ben Contreras MD MD kdr Beckie Brasher RN RN bb Evelia Ribera, MARK FLORES iw Jaelyn Hanna, MARK RN cg Corrections: (The following items were deleted from the chart) 19:15 13:32 02/11/2018 13:32 Transfer ordered to [facility]. Diagnosis is Adbominal wound kdr dehiscence, anemia (5.6). Reason for transfer: Higher level of care. Accepting physician is Dr. DENG. Condition is Fair. Problem is new. Symptoms are unchanged. kdr 19:16 19:16 Hospitalization Ordered by Derick Coyle MD for Observation. Preliminary kdr diagnosis is Weakness; Abdominal wound dehisence. Bed requested for Telemetry/MedSurg (observation). Status is Observation. Condition is Fair. Problem is an acute exacerbation. Symptoms are unchanged. UTI on Admission? No. kdr 19:50 19:16 02/11/2018 19:16 Hospitalization Ordered by Derick Coyle MD for Observation. cg Preliminary diagnosis is Weakness; Abdominal wound dehisence; Anemia, unspecified - 5.6. Bed requested for Telemetry/MedSurg (observation). Status is Observation. Condition is Fair. Problem is an acute exacerbation. Symptoms are unchanged. UTI on Admission? No. kdr 21:14 19:50 02/11/2018 19:16 Hospitalization Ordered by Derick Coyle MD for Observation. bb Preliminary diagnosis is Weakness; Abdominal wound dehisence; Anemia, unspecified - 5.6. Bed requested for Telemetry/MedSurg (observation). Status is Observation. Condition is Fair. Problem is an acute exacerbation. Symptoms are unchanged. UTI on Admission? No. cg
[2018-02-11 14:07] LABS: Platelet Estimate ADEQ; Urine White Blood Cell Casts OK
[2018-02-11 14:08] LABS: Anisocytosis 2+; Blood Morphology Comment NOTED (NOT SEEN); Polychromasia 2+
[2018-02-11] MEDS ORDERED: SOD FERRIC GLUC COMPLX/SUCROSE 125 MG in NA CHLORIDE 0.9% 100 ML IV ONE (14:15)
[2018-02-11] MEDS ORDERED: NA CHLORIDE 0.9% 250 ML ONE (16:11)
--- NOTE | 2018-02-11 20:17 | P.HP ---
Certification for Inpatient Patient admitted to: Observation With expected LOS: <2 Midnights Practitioner: I am a practitioner with admitting privileges, knowledge of patient current condition, hospital course, and medical plan of care. Services: Services provided to patient in accordance with Admission requirements found in Title 42 Section 412.3 of the Code of Federal Regulations Patient History Date of Service: 02/11/18 Reason for admission: anemia History of Present Illness: Ms Jain id a 62 years old woman with history of obesity, DM II, HTN, Hypothyroidism, who had an enterocutanueous fistula surgery on 01/20/18 done at [facility]. She was in the hospital for 4 days and was discharged home with wound care instructions. However she has not had the optimal level of care. During her stay at home she sustained a fall leading with dehiscence of a couple of stitches. Her surgeon direct them to continue with wound care until see him this week. Her daughter came to see the patient today and found her pale, and weak. She also had some clear secretion from her wound. WBC WNL, however her Hgb is 5.3 mg/dl. According to Dr Aguirre she was discharged with Hgb of 6.3 mg/ dl upon discharge from [facility]. She is on iron supplement and since so her stool is darker, but she has not had any bloody or coffe-ground vomiting. No history of fever or chills either. Dr Goldman spoke with her surgeon Dr Aguirre in order to transfer to [facility] for further evaluation, however the surgeon has recommended to transfuse PRBC's and discharge when she is stable to see him in his office. Allergies No Known Allergies Allergy (Unverified 12/30/16 10:05) Home Medications: Levothyroxine Sodium [Levoxyl] 125 mcg PO DAILY 03/21/12 Metformin HCl 500 mg PO DAILY 03/21/12 Metoprolol Tartrate [Lopressor] 50 mg PO BID 03/21/12 Valsartan/Hydrochlorothiazide [Diovan Hct 320-25 mg Tablet] 325 mg PO DAILY 03/26 Diazepam [Valium*] 5 mg PO TIDP PRN 01/05/16 Furosemide [Lasix*] 20 mg PO DAILY 01/05/16 Meloxicam [Mobic] 15 mg PO DAILY 01/05/16 Solifenacin [Vesicare*] 10 mg PO DAILY 01/05/16 Zolpidem Tartrate [Ambien*] 10 mg PO BEDTIME 01/05/16 Hydrocodone/Acetaminophen [Hydrocodone-Acetamin 10-325 mg] 1 each PO PRN PRN Rivaroxaban [Xarelto] 20 mg PO DAILY 12/29/16 Ciprofloxacin HCl 500 mg PO BID #14 tablet 01/01/17 Metronidazole 500 mg PO TID #21 tablet 01/01/17 - Past Medical/Surgical History Diabetic: Yes -: HTN, -: NIDDM -: hypothyroid -: DVT -: Kidney stones -: Anxiety -: PE -: Tubal Ligation -: Kidney stone removal -: cyst on thyroid removed -: enterocutaneous fistula repair - Family History Father -: Heart disease - Social History Smoking Status: Never smoker Alcohol use: No CD- Drugs: No Caffeine use: Yes Place of Residence: Home Review of Systems 10-point ROS is otherwise unremarkable Physical Examination - Physical Exam General: Alert, In no apparent distress HEENT: Atraumatic, PERRLA, Mucous membr. moist/pink, EOMI, Sclerae nonicteric Neck: Supple, 2+ carotid pulse no bruit, No LAD, Without JVD or thyroid abnormality Respiratory: Clear to auscultation bilaterally, Normal air movement Cardiovascular: Regular rate/rhythm, Normal S1 S2 Gastrointestinal: Normal bowel sounds, No tenderness Musculoskeletal: No tenderness Integumentary: Skin lesion (wound is open distally but does not look infected.) Neurological: Normal speech, Normal tone, Normal affect Lymphatics: No axilla or inguinal lymphadenopathy - Studies Laboratory Data (last 24 hrs) 02/11/18 13:05: Sodium 139, Potassium 4.7, BUN 28 H, Creatinine 1.85 H, Glucose 136 H 02/11/18 13:05: WBC 9.6, Hgb 5.6 L*, Hct 18.9 L*, Plt Count 348 Assessment and Plan - Problems (Diagnosis) (1) Obesity Current Visit: Yes Status: Acute Qualifiers: Obesity type: due to excess calories Obesity classification: adult class 2 (BMI 35 - 39.9) Serious obesity comorbidity presence: unspecified whether serious comorbidity present Body mass index: unspecified BMI Qualified Code( s): E66.09 - Other obesity due to excess calories (2) Abdominal wound dehiscence Current Visit: Yes Status: Acute Qualifiers: Encounter type: initial encounter Qualified Code(s): T81.30XA - Disruption of wound, unspecified, initial encounter (3) Anemia Current Visit: Yes Status: Acute Qualifiers: Anemia type: unspecified type Qualified Code(s): D64.9 - Anemia, unspecified - Plan The patient will be admitted to the hospital due to anemia. No obvious signs of bleeding. Will order Abd/pelvis CT to roule out intraabdominal blood collection. She has received 1 PRBC already, will order HH to evaluate progress. Potentially will need more PRBC's transfusion. Will order SSI for BS control. - Advance Directives Does patient have a Living Will: No Does patient have a Durable POA for Healthcare: No - Code Status/Comfort Care Code Status Assessed: Yes Code Status: Full Code
[2018-02-11] MEDS ORDERED: ONDANSETRON 4 MG/2 ML VIAL IV PRN (21:32)
[2018-02-11] MEDS ORDERED: ACETAMINOPHEN 500 MG TAB PO PRN (21:32)
[2018-02-11] MEDS: INSULIN -REGULAR HUMAN 50 UNIT/0.5 ML ML SQ SCH (21:32)
[2018-02-11 22:17] VITALS: BMI 50.9
[2018-02-11 22:19] LABS: Hematocrit 21.6 % (36.0-45.0)
[2018-02-11] MEDS: NA CHLORIDE 0.9% 1,000 ML IV SCH (23:13)
[2018-02-11] MEDS ORDERED: NA CHLORIDE 0.9% 250 ML IV SCH (23:45)
[2018-02-12 06:27] LABS: Absolute Lymphocytes (CBC) 1.4 K/uL (0.7-4.9); Absolute Monocytes 0.5 K/uL (0.1-1.3); Absolute Neutrophil 4.5 K/uL (1.8-8.0); Basophils % 0.9 % (0-1.3); Eosinophils % 4.6 % (0-4.4); Hematocrit 22.6 % (36.0-45.0); Lymphocytes % 20.1 % (15.3-44.8); MCH 27.9 pg (27.0-35.0); MCV 89.3 fL (80-100); MPV 7.7 fL (7.6-11.3); Monocytes % 7.6 % (3.3-12.3); RBC Red Blood Cell Count 2.53 M/uL (3.86-4.86)
[2018-02-12 06:56] LABS: Potassium 4.3 mEq/L (3.6-5.0)
[2018-02-12] MEDS: INSULIN -REGULAR HUMAN 50 UNIT/0.5 ML ML SQ SCH ×4 (07:30→21:00)
--- NOTE | 2018-02-12 08:23 | RAD REPORT ---
EXAM DESCRIPTION: CT - Abdomen Pelvis Wo Contrast - 02/11/2018 10:40 pm CLINICAL HISTORY: Abdominal pain. Colon surgery yesterday. COMPARISON: None TECHNIQUE: Computed axial tomography of the abdomen and pelvis was obtained. IV was not requested. O ral contrast was given. Coronal reconstructions performed. All CT scans are performed using dose optimization technique as appropriate and may include automated exposure control or mA/KV adjustment according to patient size. FINDINGS: The evaluation of solid organs and vessels is limited secondary to the lack of contrast a dministration. The liver, spleen, pancreas, and adrenal appear grossly normal. The gallbladder is normal caliber. A small duodenum diverticulum is present Renal calculi are unchanged. No hydronephrosis is seen. A filter is present within the inferior vena cava. A sigmoidectomy has been performed. The bladder air has resolved. An abscess is not noted. Significan t free fluid is not present. A bowel obstruction is not noted IMPRESSION: Postsurgical changes of a sigmoidectomy without visualization of an abscess or significa nt free-fluid. The air within the bladder has resolved.
[2018-02-12] MEDS: NA CHLORIDE 0.9% 1,000 ML IV SCH ×2 (09:37→17:17)
[2018-02-12] MEDS ORDERED: ZOLPIDEM TARTRATE 10 MG TABLET PO PRN (09:48)
[2018-02-12] MEDS ORDERED: ALPRAZOLAM 1 MG TABLET PO PRN (09:48)
[2018-02-12] MEDS ORDERED: VANCOMYCIN 2 GM in NA CHLORIDE 0.9% 500 ML IVPB SCH (11:00)
--- NOTE | 2018-02-12 11:07 | CON ---
Date of Consultation: 02/12/2018 Brief History Of Present Illness: The patient is a 62-year-old female with a history of ob esity, diabetes, hypertension and hypothyroidism, who had a fistula takedown on 01/20/2018 at [facility] in [place]. She is unsure of the type of fistula, but states that this was a fistula between her col on and her vagina as well as her bladder. It sounds very much like a diverticulitis type fistula; ho wever, I do not have any medical records to corroborate that. She states that she had a colonoscopy approximately 1 year ago, which did not show any evidence of the fistula prior to her surgical interv ention, which was on 01/20/2018 as described above. Initially, there was an attempt to make a laparo scopic takedown of this fistula. She is unsure of the type of surgery once again, but I suspect this was a partial colectomy and takedown of fistulas. Ultimately, she was converted to an open procedur e at that time. She was discharged 4 to 5 days after her admission to [facility]. Ultimately, she has been tried to do some wound care at home. She noticed that her inferior aspect of her midlin e incision opened up and started draining fluid. She started having pain and some low-grade fevers a nd as such she came to our emergency room here with the above stated complaints. Past Medical History: Significant for hypertension, diabetes, hypothyroidism, DVT, kidney stones, an xiety, PE. 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 Allergies: NO KNOWN DRUG ALLERGIES. Home Medications: Include Levoxyl, metformin, Lopressor, Diovan, Valium, Lasix, Mobic, VESIcare, Amb ien, hydrocodone, Xarelto, Cipro, and Flagyl. Social History: She denies smoking, alcohol, or recreational drug use. Review of Systems: A 10-point review of systems other than HPI, denies. Physical Examination: Vital Signs: At the time of my examination, her vital signs were BMI of 51. Her blood pressure was 97/40, pulse is 84, respiratory rate 18, temperature 96.5. General: She is awake, alert, oriented. Psychiatric: She is appropriate, conversive. HEENT: She has some slight alopecia, otherwise unremarkable examination. She is morbidly obese obvi ously. Chest: Her chest has normal expansion and excursion. Cardiovascular: Regular rate and rhythm. Pulmonary: Clear to auscultation bilaterally. Abdomen: Soft with a lower midline incision, abdominal wound dehiscence. It is open and appears to be Dakin solution with a somewhat foul odor. In addition, she has necrosis of the upper aspect of he r lower midline incision, which jason are still in place. All of her surgical jason appear to be in place with the exception of the ones were removed yesterday in the emergency room here to allow f or the opening of this wound to drain. She has an umbilical hernia as well and her abdomen is obese globally, otherwise it is nontender. Extremities: Obese globally. No edema obviously. Skin: Warm and dry currently. Laboratory Data: She had a laboratory exam, which reveals a white blood cell count of 6.8, hemoglobi n 7.0 up from 5.6 on admission, hematocrit of 22.6, platelet count of 286. Her chemistry shows a sod ium of 141, potassium 4.3, chloride 109, carbon dioxide 27, BUN 23, creatinine 1.69, glucose is 93. She had imaging performed, which included a CT abdomen and pelvis, which was officially read as posts urgical changes of a sigmoidectomy without visualization of an abscess or significant free fluid. Th e air within the bladder has resolved. Assessment And Plan: This is a 62-year-old female, who presents with an abdominal wound dehiscence. I will remove the remainder of the jason on the lower midline incision and drain out what is obviou sly necrotic fat, which is emanating from small punctate openings in her skin within the interstices of the jason. We will begin irrigating, cleansing, and doing packing of this wound. She will be p laced on antibiotics. Serial exams will be performed. Culture will be performed. I recommend sendadrianne reyes her stool for guaiac as well, although will likely be positive, we should see if this is contribut ing to her overall anemia picture. Thank you for this interesting consult. EDIN/BERTIN Voice ID: [id number] Report ID: [id number]
[2018-02-12] MEDS: PIPER/TAZO/NS 3.375gm 3.375 GM/100 ML BAG IVPB SCH ×3 (11:18→23:59)
[2018-02-12] MEDS: HYDROCODONE/APAP 10/325 TAB PO PRN ×2 (11:24→21:47)
[2018-02-12] MEDS: CITALOPRAM 10 MG TABLET PO SCH (11:25)
[2018-02-12] MEDS: FE SULF/FA/VIT B COMP & C TAB PO SCH (11:25)
[2018-02-12] MEDS: Morphine 2 MG/2 ML SYR IV PRN ×2 (13:55→23:59)
--- NOTE | 2018-02-12 15:59 | PN ---
Date of Progress Note: 02/12/2018 Subjective: The patient seen and examined. Chart reviewed and case discussed with RN and Dr. Nanci moeller. She is having some abdominal pain and discharge. Review of Systems: Negative except as above. Medications: Reviewed. Physical Examination: Vital Signs: Temperature 96.5, heart rate 84, blood pressure 97/40, respirations 18, O2 97% on room air. General: Awake, alert, oriented x3, in some mild distress. Elderly female, morbidly obese, BMI 51. CV: S1 and S2. No murmurs. Regular rate and rhythm. Peripheral pulses weak bilaterally. Respiratory: Moving air well bilaterally. No wheezing. Gastrointestinal: Abdomen is soft. Tenderness to palpation. Incision site has wound dehiscence wit h necrotic fat tissue and some drainage, which is foul smelling. Bowel sounds are positive. Extremities: No clubbing, cyanosis. The patient has lower extremity edema. Neurologic: Nonfocal. Laboratory Data: Sodium 141, potassium 4.3, chloride 109, CO2 27, BUN 23, creatinine 1.69, glucose 9 3, calcium 8.3. WBC 6.8, H and H 7 and 22.6, platelets 286, neutrophils 66%. CT scan of the abdomen and pelvis shows postsurgical changes of the sigmoidectomy without visualization of an abscess and s ignificant free fluid. The air within the bladder has resolved. Filter is present in the inferior v al cava. Wound cultures pending. Assessment And Plan: A 62-year-old female with: 1.Abdominal wound dehiscence, initial encounter. The patient recently had a colovesicular fistula r epair done at [facility] by Dr. Damon on 01/20/2018. The patient has not been back for a follo wup and abel have not been removed. Dr. Mathur has been consulted. There is fat necrosis in the wound. Abel will be opened up, wet-to-dry dressings. We will start on IV antibiotics with vanco mycin and Zosyn. The patient is diabetic, gram positive and possible anaerobic bacteria. We will ob tain wound cultures. The patient was attempted to be transferred back to Dr. Damon yesterday from [facility]; however, was declined. 2.Anemia, likely blood loss, possibility of anastomosis of the surgery and bleed from the surgeries possible. We will check stool occult blood and we will continue to monitor H and H and transfuse as needed. 3.Morbid obesity, BMI 51. 4.Essential hypertension, diet controlled. 5.Diabetes mellitus type 2 orz-kyblcec-fbouhgrwz with hyperglycemia. We will continue sliding scale insulin. 6.Hypothyroidism. We will continue levothyroxine. 7.History of deep venous thrombosis. The patient takes anticoagulation. 8.Generalized anxiety disorder. The patient is on Valium. 9.History of pulmonary embolism. Plan: We will continue to monitor H and H. Appreciate Dr. Mathur's input. Follow up on wound cult ures. We will obtain a PICC line and LTAC referral, wound care and long-term IV antibiotics. We daphney l likely need mhfdq-ifl-rvydy care until wound is improved. NADIA Voice ID: [id number] Report ID: [id number]
[2018-02-12] MEDS ORDERED: FUROSEMIDE 20 MG TABLET PO SCH (21:00)
[2018-02-12] MEDS: METOPROLOL TAR 50 MG TAB PO SCH (21:47)
[2018-02-13] MEDS: NA CHLORIDE 0.9% 1,000 ML IV SCH
[2018-02-13] MEDS ORDERED: LEVOTHYROXINE SOD 0.075 MG TAB PO SCH (06:30)
[2018-02-13] MEDS ORDERED: LEVOTHYROXINE SOD 0.1 MG TAB PO SCH (06:30)
[2018-02-13 06:37] LABS: Absolute Lymphocytes (CBC) 1.3 K/uL (0.7-4.9); Absolute Monocytes 0.5 K/uL (0.1-1.3); Absolute Neutrophil 4.6 K/uL (1.8-8.0); Basophils % 1.4 % (0-1.3); Eosinophils % 6.1 % (0-4.4); Hematocrit 23.8 % (36.0-45.0); Lymphocytes % 18.7 % (15.3-44.8); MCH 27.8 pg (27.0-35.0); MCV 90.7 fL (80-100); MPV 7.7 fL (7.6-11.3); Monocytes % 7.6 % (3.3-12.3); RBC Red Blood Cell Count 2.62 M/uL (3.86-4.86)
[2018-02-13] MEDS: Morphine 2 MG/2 ML SYR IV PRN (06:37)
[2018-02-13 06:57] LABS: Albumin 2.3 g/dL (3.2-5.5); Bilirubin Total 0.6 mg/dL (0.3-1.2); Protein, Total 5.7 g/dL (6.0-8.3)
[2018-02-13] MEDS: INSULIN -REGULAR HUMAN 50 UNIT/0.5 ML ML SQ SCH ×3 (07:30→16:30)
--- NOTE | 2018-02-13 07:30 | RAD REPORT ---
EXAM DESCRIPTION: RAD - Chest Single View - 02/13/2018 3:38 am CLINICAL HISTORY: PICC line placement COMPARISON: Portable chest December 24, CT chest October 20 TECHNIQUE: AP portable chest image was obtained 0326 hours . FINDINGS: Left upper extremity PICC line has been placed. Tip is in the mid to distal SVC. Tip of the PICC line is superimposed on the mid right chest. However, review of the CT chest study sh ows that the patient's heart and mediastinal vasculature are significantly offset to the right. This places the SVC over the right midlung field. Overall heart size is normal. Vasculature and lung radames ngs are accentuated by shallow inspiration. No pneumothorax or large pleural effusion. No gross bony abnormality seen. No acute aortic findings suspected. IMPRESSION: Left upper extremity PICC line in place with tip in the SVC. The unusual appearance of the PICC line overlying the right lung field is due to right side offset of heart and mediastinal vasculature.
[2018-02-13] MEDS ORDERED: hydroCHLOROthiazide 25 MG TAB PO SCH (09:00)
[2018-02-13] MEDS ORDERED: HOME MED 1 EA UNK (Valsartan/Hydrochlorothiazide [Valsartan-Hctz 320-25 Mg Tab] 1 TAB) PO SCH (09:00)
[2018-02-13] MEDS ORDERED: VALSARTAN 160 MG TAB PO SCH (09:00)
[2018-02-13] MEDS: PIPER/TAZO/NS 3.375gm 3.375 GM/100 ML BAG IVPB SCH (09:19)
[2018-02-13] MEDS: CITALOPRAM 10 MG TABLET PO SCH (09:19)
[2018-02-13] MEDS: METOPROLOL TAR 50 MG TAB PO SCH (09:21)
[2018-02-13] MEDS: FE SULF/FA/VIT B COMP & C TAB PO SCH (09:21)
--- NOTE | 2018-02-13 12:27 | PN ---
Subjective: The patient is seen and examined. Chart reviewed and case discussed with RN and Dr. Sonu silva as well as Dr. Damon, the patient's surgeon at [facility]. I spoke with him extensively. He is not concerned about the hemoglobin dropping, states that he would like to see her in his [place] office t omar; however, I explained to him that the patient has been noncompliant in the past with failed woun d care at home and she will be better served in LTAC facility and currently is not stable for dischar ge as she has some cultures growing gram-negative rods. He voiced understanding, requested medical r ecords, and we will see her in [place]. His clinic is in [place], on Friday. The patient otherw ise states her pain is better. No acute events overnight. Review of Systems: Negative except as above. Medications: Reviewed. Physical Examination: Vital Signs: Temperature 97.2, heart rate 74, blood pressure 132/69, respirations 18, O2 100% on dmitry m air. General: Awake, alert, oriented x3, in some mild distress. Elderly female, ill appearing. Morbidly obese, BMI 51. CV: S1, S2. No murmurs. Regular rate and rhythm. Peripheral pulses present. Respiratory: Moving air well bilaterally. No wheezing. Abdomen: Soft. Mild tenderness to palpation around the incision site. Nondistended. Positive chely l sounds. Extremities: No clubbing, cyanosis. Edema is present. Neurologic: Nonfocal. Skin: The patient has wound dehiscence in the abdomen with wet-to-dry dressings. Laboratory Data: Sodium 140, potassium 4, chloride 108, CO2 27, BUN 15, creatinine 1.65, glucose 101 , calcium 8.2, albumin 2.38. WBC 7, H and H 7.3 and 23.2, platelets 283. Stool occult blood is posi tive. Wound culture is growing gram-negative rods. Chest x-ray, left upper extremity PICC line in p lace. Assessment And Plan: A 62-year-old female with: 1.Abdominal wound dehiscence, initial encounter. The patient initially had a colovesicular fistula repaired at [facility] by Dr. Damon on 01/20/2018. I spoke with him personally today. He did not recomme nd transferring her at [facility] at this time. The patient has stool occult positive, 3 weeks out of surg bel. Her hemoglobin was 5.6 upon arrival and is 7.3 after 2 units. He understands and states that h er hemoglobin was 6.5 upon discharge from [facility]. He recommends following up with him as an outpatient in his [facility] today; however, I do not feel that this patient is ready at this time to be di scharged with positive wound cultures growing gram-negative rods. Plan for now will be LTAC placemen t for wound care and IV antibiotics. 2.Anemia, likely anemia secondary to blood loss. Again, we will continue to monitor H and H, transf use as needed. Likely secondary to bleeding from surgery. 3.Morbid obesity, BMI 51. 4.Essential hypertension. 5.Diabetes mellitus type 2, non-insulin requiring with hyperglycemia. Continue sliding scale. 6.Hypothyroidism. Levothyroxine. 7.History of deep venous thrombosis and pulmonary embolism. The patient is on Xarelto, currently on hold due to anemia. The patient does have IVC filter. 8.Generalized anxiety disorder. Plan: Continue IV antibiotics. Follow up with ID and sensitivity of wound cultures. We will need L TAC placement with long-term IV antibiotics of 2 weeks and wound care. The patient needs to follow u p with her primary surgeon, Dr. Damon, who is available in [place] on Friday, may be transported f [facility] to [place] for her appointment. We will consult ID. REINA/BERTIN Voice ID: [id number] Report ID: [id number]
[2018-02-13 15:10] VITALS: O2SAT 100
[2018-02-13] MEDS: HYDROCODONE/APAP 10/325 TAB PO PRN (15:59)
--- NOTE | 2018-02-13 15:59 | DS ---
Date of Discharge: 02/13/2018 Consultants: Dr. Mathur with General surgery. Admitting Diagnoses: 1.Abdominal wound dehiscence. 2.Morbid obesity. 3.Anemia, likely postoperative. Discharge Diagnoses: 1.Abdominal wound dehiscence, superficial wound culture growing gram-negative rods. 2.Anemia, likely secondary to anemia of blood loss from recent surgery, transfused 2 units PRBCs. 3.Morbid obesity, body mass index 51. 4.Essential hypertension, stable. 5.Diabetes mellitus type 2, non-insulin requiring with hyperglycemia. 6.Hypothyroidism, on levothyroxine. 7.History of deep venous thrombosis and pulmonary embolism, on Xarelto, currently on hold due to hem oglobin of 5.6 on admission. The patient has IVC filter. 8.Generalized anxiety disorder. 9.Noncompliance. 10.Acute on chronic kidney injury, stage 2, improving. Hospital Course: The patient is a 62-year-old female, who recently had enterovesicular fistula surge ry on 01/20/2018, done by Dr. Damon at [facility]. [facility]. The patient went home, refused LTAC placement. After the initial surgery, she had a fall and paulina d to dehiscence of couple of her abel. The patient was to see her surgeon; however, came into the hospital because she was pale, feeling weak, and had some secretions from her wound. The patient wa s found to have a hemoglobin of 5.3. The patient was discharged with a hemoglobin of 6.3 at [facility] and was on iron supplements. The patient was found to have Hemoccult-positive blood. She was transfuse d 2 units of PRBCs. Her hemoglobin improved to 7.3. The patient denied any coffee-ground emesis or melanotic stools. Dr. Mccullough in the ER attempted to transfer to Dr. Damon; however, recommended to transfuse PRBCs and discharge when stable to follow up as an outpatient. Dr. Mathur with [facility] was consulted here at this facility and the patient was started on IV antibiotics for her abdom inal wound dehiscence, which was cleaned at the bedside. Abel were removed by Dr. Mathur. Wound care was initiated with wet-to-dry dressings. The patient did not have a white count, did not appea r septic, no hypotension, elevated white count, or fevers. Prophylactic antibiotics were initiated. Her wound cultures grew out gram-negative rods, likely E coli. ID and sensitivity pending at this t uzma. The patient was referred to LTAC. PICC line was placed and again attempt was made to transfer patient to [facility]; however, her primary surgeon felt that the patient is stable and would do well at e LT with wound care and did not recommend transfer at this time. He wished to follow up with her in his office next week in [place]. The patient was accepted to [facility] and will be on IV antibiotics for gram-negative saira coverage for 10-14 days total with repeat wound cultures once anti biotics are completed with weekly CBC, CMP, ESR, CRP, and have her kidney function being monitored al david with IV fluid hydration. The patient's kidney function did improve while at the hospital with IV fluids. Her electrolytes were corrected. The patient does have severe protein-calorie malnutrition with an albumin of 2.3. The patient was then transferred to LTAC in a stable condition. Activity: Fall precautions. Diet: Diabetic. Medications: As per medication reconciliation list. Followup: Follow up with primary care physician in 2-3 days. Follow up with surgeon, Dr. Damon on Friday at [facility]. Return to ER for worsening condition. The patient of note was on Xarelto for history of PE and DVT, which has been placed on hold due to her acute blood loss anemia. The pa tient will need to follow up with surgeon and PCP for resuming her Xarelto. At this time, the patien t's hemoglobin is 7.3 with Hemoccult-positive stool and therefore contraindicated. The patient does have IVC filter in place. Total time spent discharging patient was 47 minutes. Physical Examination: For physical exam findings, please see progress note dictated on the day of discharge. /BERTIN Voice ID: [id number] Report ID: [id number]
--- NOTE | 2018-02-13 17:15 | CON ---
History Of Present Illness: This is a 62-year-old female with significant history of morbid obesity, diabetes mellitus, hypothyroidism, and hypertension, coming in with enterocutaneous fistula after chandler rgery done on 01/20/2018 at [facility]. The patient had surgical repair done here. The patient had surgic al wound dehiscence and was brought into the hospital for further care. The patient denies any heada alexander, nausea, vomiting, chest pain, abdominal pain, constipation, or diarrhea. Being transferred to [facility] for further care. Currently being treated with vancomycin and Zosyn. Past Medical History: As per HPI. Social History: Nonsmoker, nondrinker. Medications: Vancomycin and Zosyn. See MARs for other medications. Allergies: NO KNOWN DRUG ALLERGIES. Review of Systems: A 10-point review was performed. Physical Examination: General: This is a 62-year-old female, sitting in easy chair, not in any acute cardiopulmonary distr ess. Vital Signs: Temperature 97, pulse 74, respiration 20, and blood pressure 135/76. Lungs: Basal crackles. Heart: S1 and S2 regular. Abdomen: Soft and nontender. Bowel sounds positive. Extremities: No edema. Wound under surgical dressing. Laboratory Data: WBC 7000, hemoglobin 7.3, and platelets are 283. Chemistry shows sodium 140, potas sium 4, chloride 108, bicarb 27, BUN 16, creatinine 1.65, and glucose is 101. Microbiology data: Bl ood cultures; no blood cultures available. Wound cultures are growing 2+ gram-negative rods. Abdomi nal CT scan shows postsurgical changes of sigmoidectomy without visualization of an abscess or signif icant free fluid. Assessment And Plan: Abdominal wound status post sigmoidectomy, anemia, and diabetes mellitus. Cont inue antibiotic and wound care. We will follow the patient closely. Thank you Dr. Bernstein for consult. NF/MICHAELL Voice ID: [id number] Report ID: [id number]
[2018-02-13 17:25] VITALS: BP 120/77; TEMP 97.4
== END 2018-02-13 17:43 | DRG 920 ==
LOC: ER 11:58 → 4TH 19:17 → OBSVTOIN 19:17
PROVIDERS: ADMIT Internal Medicine; ATTEND Family Medicine
PROC: 02HV33Z Insertion of Infusion Device into Superior Vena Cava, Percutaneous Approach (ICD-10-PCS; principal; 2018-02-13)
DX: T81.33XA Disruption of traumatic injury wound repair, initial encounter (principal); Z68.43 Body mass index [BMI] 50.0-59.9, adult; N17.9 Acute kidney failure, unspecified; E03.9 Hypothyroidism, unspecified; D64.9 Anemia, unspecified; D50.0 Iron deficiency anemia secondary to blood loss (chronic); F41.1 Generalized anxiety disorder; E11.22 Type 2 diabetes mellitus with diabetic chronic kidney disease; I12.9 Hypertensive chronic kidney disease with stage 1 through stage 4 chronic kidney disease, or unspecified chronic kidney disease; N18.2 Chronic kidney disease, stage 2 (mild); E66.01 Morbid (severe) obesity due to excess calories; Z91.19 Patient's noncompliance with other medical treatment and regimen; Z86.718 Personal history of other venous thrombosis and embolism; Z86.711 Personal history of pulmonary embolism
CPT/HCPCS: 36415; 71045; 74176; 80048; 80053; 82274; 82962; 85014; 85018; 85025; 86850; 86900; 86901; 87070; 87075; 87077; 87186; 87205; 97163; 99285; G0378; J2270; J2543; J2916; J7030; P9016

== ENCOUNTER 2018-05-04 13:24 | Emergency (ER) | payer OTHER ==
--- OUTSIDE RECORDS SUMMARY | 2018-05-04 13:28 | XMS REPORT | Clinical Summary ---
:1955 Author Organization [facility] Address [address] [place] [address] Phone Care Team Providers Name Role Phone [...] Emergency Emergency Medicine Candida Bosch DO after 05/03/2017 Social History Tobacco Use Types Packs/Day Years Used Date Never Smoker Sex Assigned at Date Recorded Not on file Last Filed Vital Signs Vital Sign Reading Time Taken Blood Pressure 113/59 10/20/2017 12:24 PM [employer] Pulse 75 10/20/2017 12:24 PM [employer] Temperature 37.2 C (99 F) 10/20/2017 12:24 PM [employer] Respiratory Rate 18 10/20/2017 12:24 PM [employer] Oxygen Saturation 97% 10/20/2017 12:24 PM [employer] Inhaled Oxygen Concentration - - Weight 139.7 kg (308 lb) 10/20/2017 12:24 PM [employer] Height 175.3 cm (5' 9") 10/20/2017 12:24 PM [employer] Body Mass Index 45.48 10/20/2017 12:24 PM [facility] [employer] Plan of Treatment Not on file Results Not on fileafter 05/03/2017
--- OUTSIDE RECORDS SUMMARY | 2018-05-04 13:28 | XMS REPORT | Clinical Summary ---
:1955 Author Organization [facility] Address [address] [place] [address] Care Team Providers Name Role Phone Arthur [...] MD 12/03/2017 Hospital Encounter General Internal [facility] Acute renal failure, unspecified acute renal failure type (Primary Dx); - Medicine MD Savita Urinary tract infection with hematuria, site unspecified; 12/05/2017 George Jacob Colovesical MD Smitha Paulson Thuyen T., MD 12/03/2017 Telephone General Surgery Sheryl Marcos MILL CONTROL OPERATOR-C 12/02/2017 Orders Only General Surgery Mateo Quinones MD 12/01/2017 Pre-Admit Testing Pre-Admission Testing Mateo Quinones Preop examination (Primary Dx); Appointment MD Alok Morbid obesity; Liver disease 11/18/2017 Orders Only General Surgery Sheryl Marcos MILL CONTROL OPERATOR-C 11/13/2017 Office Visit General Surgery Mateo Quinones Rectovaginal fistula ( Primary Dx); MD Alok Morbid obesity with BMI of 45.0-49.9, adult 11/13/2017 Orders Only General Surgery RandallguruSheryl logan, MILL CONTROL OPERATOR-C 11/13/2017 Orders Only General Surgery RandallguruSheryl logan MILL CONTROL OPERATOR-C 11/13/2017 Orders Only General Surgery Alagugurusamy, Colovesical Sheryl fistula (Primary Balb[place], MILL CONTROL OPERATOR-C Dx) 10/22/2017 Anesthesia Event Gastroenterology Chapo Perez MD 10/22/2017 Procedure Pass Gastroenterology 10/22/2017 Surgery Gastroenterology Mateo Quinones COLONOSCOPY MD Alok 10/20/2017 Hospital Encounter General Surgery JacobElizabeth Colovesical fistula (Primary Dx); - MD Harley Idiopathic pulmonary fibrosis 10/24/2017 after 05/03/2017 Family History Patient is adopted Relation Name [...] INFLUENZA VACCINE 04/15/2018 Implants Implanted Type Area Precision Assembly Inspector Device Expiration Model / Identifier Date Serial / Lot Catheter Cv Powerline Dlmn Al 6fr - [id number] Surgical N/A: N/A BARD ACCESS [id number] / Implanted: 12/11/2017 (Quantity not on file) Implants; SYSTEMS / Expanders; Extenders; Surgical Wires Procedures Procedure Name Priority Date/Time Associated Comments Diagnosis [facility] Routine 12/18/2017 12:00 CUSTOM ORDER AM CDT POC GLUCOSE Routine 12/16/2017 7:47 Results for this AM CDT procedure are in the results section. POC GLUCOSE Routine 12/16/2017 5:25 Results for this AM CDT procedure are in the results section. ESTIMATED GFR Routine 12/16/2017 4:00 Results for this AM CDT procedure are in the results section. PHOSPHORUS LEVEL Routine 12/16/2017 4:00 Results for this AM CDT procedure are in the results section. MAGNESIUM LEVEL Routine 12/16/2017 4:00 Results for this AM CDT procedure are in the results section. BASIC METABOLIC PANEL Routine 12/16/2017 4:00 Results for this AM CDT procedure are in the results section. HC COMPLETE BLD COUNT Routine 12/16/2017 3:40 Results for this W/AUTO DIFF AM CDT procedure are in the results section. POC GLUCOSE Routine 12/15/2017 11:52 Results for this PM CDT procedure are in the results section. POC GLUCOSE Routine 12/15/2017 9:15 Results for this PM CDT procedure are in the results section. POC GLUCOSE Routine 12/15/2017 3:30 Results for this PM CDT procedure are in the results section. POC GLUCOSE Routine 12/15/2017 11:55 Results for this AM CDT procedure are in the results section. CBC WITH PLATELET AND Routine 12/15/2017 4:40 Results for this DIFFERENTIAL AM CDT procedure are in the results section. ESTIMATED GFR Routine 12/15/2017 4:00 Results for this AM CDT procedure are in the results section. BASIC METABOLIC PANEL Routine 12/15/2017 4:00 Results for this AM CDT procedure are in the results section. POC GLUCOSE Routine 12/14/2017 8:58 Results for this PM CDT procedure are in the results section. POC GLUCOSE Routine 12/14/2017 3:39 Results for this PM CDT procedure are in the results section. POC GLUCOSE Routine 12/14/2017 12:24 Results for this PM CDT procedure are in the results section. POC GLUCOSE Routine 12/14/2017 7:40 Results for this AM CDT procedure are in the results section. CBC WITH PLATELET AND Routine 12/14/2017 5:30 Results for this DIFFERENTIAL AM CDT procedure are in the results section. POC GLUCOSE Routine 12/14/2017 4:22 Results for this AM CDT procedure are in the results section. ESTIMATED GFR Routine 12/14/2017 4:00 Results for this AM CDT procedure are in the results section. URIC ACID LEVEL Routine 12/14/2017 4:00 Results for this AM CDT procedure are in the results section. BASIC METABOLIC PANEL Routine 12/14/2017 4:00 Results for this AM CDT procedure are in the results section. POC GLUCOSE Routine 12/13/2017 11:02 Results for this PM CDT procedure are in the results section. POC GLUCOSE Routine 12/13/2017 7:31 Results for this PM CDT procedure are in the results section. XR KNEE 3 VW LEFT Routine 12/13/2017 3:42 Results for this PM CDT procedure are in the results section. POC GLUCOSE Routine 12/13/2017 3:02 Results for this PM CDT procedure are in the results section. POC GLUCOSE Routine 12/13/2017 11:57 Results for this AM CDT procedure are in the results section. POC GLUCOSE Routine 12/13/2017 7:29 Results for this AM CDT procedure are in the results section. HC COMPLETE BLD COUNT Routine 12/13/2017 4:40 Results for this W/AUTO DIFF AM CDT procedure are in the results section. POC GLUCOSE Routine 12/13/2017 4:03 Results for this AM CDT procedure are in the results section. ESTIMATED GFR Routine 12/13/2017 4:00 Results for this AM CDT procedure are in the results section. BASIC METABOLIC PANEL Routine 12/13/2017 4:00 Results for this AM CDT procedure are in the results section. POC GLUCOSE Routine 12/12/2017 10:53 Results for this PM CDT procedure are in the results section. POC GLUCOSE Routine 12/12/2017 7:19 Results for this PM CDT procedure are in the results section. POC GLUCOSE Routine 12/12/2017 3:36 Results for this PM CDT procedure are in the results section. POC GLUCOSE Routine 12/12/2017 12:36 Results for this PM CDT procedure are in the results section. POC GLUCOSE Routine 12/12/2017 7:31 Results for this AM CDT procedure are in the results section. CBC WITH PLATELET AND Routine 12/12/2017 5:10 Results for this DIFFERENTIAL AM CDT procedure are in the results section. ESTIMATED GFR Routine 12/12/2017 4:00 Results for this AM CDT procedure are in the results section. MAGNESIUM LEVEL Routine 12/12/2017 4:00 Results for this AM CDT procedure are in the results section. BASIC METABOLIC PANEL Routine 12/12/2017 4:00 Results for this AM CDT procedure are in the results section. PHOSPHORUS LEVEL Routine 12/12/2017 4:00 Results for this AM CDT procedure are in the results section. POC GLUCOSE Routine 12/12/2017 3:32 Results for this AM CDT procedure are in the results section. IR TUNNELED CENTRAL LINE Routine 12/11/2017 11:24 Results for this PLACEMENT AM CDT procedure are in the results section. HC COMPLETE BLD COUNT Routine 12/11/2017 5:00 Results for this W/AUTO DIFF AM CDT procedure are in the results section. ESTIMATED GFR Routine 12/11/2017 4:00 Results for this AM CDT procedure are in the results section. PHOSPHORUS LEVEL Routine 12/11/2017 4:00 Results for this AM CDT procedure are in the results section. MAGNESIUM LEVEL Routine 12/11/2017 4:00 Results for this AM CDT procedure are in the results section. BASIC METABOLIC PANEL Routine 12/11/2017 4:00 Results for this AM CDT procedure are in the results section. PREPARE RBC Timed 12/10/2017 3:42 AM CDT TYPE AND SCREEN Timed 12/10/2017 3:42 Results for this AM CDT procedure are in the results section. ESTIMATED GFR Routine 12/10/2017 3:42 Results for this AM CDT procedure are in the results section. PHOSPHORUS LEVEL Routine 12/10/2017 3:42 Results for this AM CDT procedure are in the results section. MAGNESIUM LEVEL Routine 12/10/2017 3:42 Results for this AM CDT procedure are in the results section. BASIC METABOLIC PANEL Routine 12/10/2017 3:42 Results for this AM CDT procedure are in the results section. HC COMPLETE BLD COUNT Routine 12/10/2017 3:42 Results for this W/AUTO DIFF AM CDT procedure are in the results section. POC GLUCOSE Routine 12/09/2017 9:26 Results for this PM CDT procedure are in the results section. ESTIMATED GFR Routine 12/09/2017 5:40 Results for this PM CDT procedure are in the results section. MAGNESIUM LEVEL Routine 12/09/2017 5:40 Results for this PM CDT procedure are in the results section. IONIZED CALCIUM Routine 12/09/2017 5:40 Results for this PM CDT procedure are in the results section. PARTIAL THROMBOPLASTIN Routine 12/09/2017 5:40 Results for this TIME (PTT) PM CDT procedure are in the results section. PROTHROMBIN TIME WITH Routine 12/09/2017 5:40 Results for this INR PM CDT procedure are in the results section. BASIC METABOLIC PANEL Routine 12/09/2017 5:40 Results for this PM CDT procedure are in the results section. HC COMPLETE BLD COUNT Routine 12/09/2017 5:40 Results for this W/AUTO DIFF PM CDT procedure are in the results section. POC GLUCOSE Routine 12/05/2017 12:24 Results for this PM CDT procedure are in the results section. POC GLUCOSE Routine 12/05/2017 8:08 Results for this AM CDT procedure are in the results section. PHOSPHORUS LEVEL Routine 12/05/2017 5:15 Results for this AM CDT procedure are in the results section. MAGNESIUM LEVEL Routine 12/05/2017 5:15 Results for this AM CDT procedure are in the results section. HEPATIC FUNCTION PANEL Routine 12/05/2017 5:15 Results for this AM CDT procedure are in the results section. PROTHROMBIN TIME WITH Routine 12/05/2017 5:15 Results for this INR AM CDT procedure are in the results section. HC COMPLETE BLD COUNT Routine 12/05/2017 5:15 Results for this W/AUTO DIFF AM CDT procedure are in the results section. ESTIMATED GFR Routine 12/05/2017 5:15 Results for this AM CDT procedure are in the results section. BASIC METABOLIC PANEL Routine 12/05/2017 5:15 Results for this AM CDT procedure are in the results section. TOTAL IRON BINDING Routine 12/05/2017 5:15 Results for this CAPACITY AM CDT procedure are in the results section. FERRITIN LEVEL Routine 12/05/2017 5:15 Results for this AM CDT procedure are in the results section. VITAMIN D 25 HYDROXY Routine 12/05/2017 5:15 Results for this LEVEL AM CDT procedure are in the results section. PARATHYROID HORMONE Routine 12/05/2017 5:15 Results for this AM CDT procedure are in the results section. POC GLUCOSE Routine 12/04/2017 9:15 Results for this PM CDT procedure are in the results section. POC GLUCOSE Routine 12/04/2017 5:11 Results for this PM CDT procedure are in the results section. GASTROINTESTINAL PANEL Routine 12/04/2017 10:00 Results for this AM CDT procedure are in the results section. POC GLUCOSE Routine 12/04/2017 8:04 Results for this AM CDT procedure are in the results section. ESTIMATED GFR Timed 12/04/2017 6:38 Results for this AM CDT procedure are in the results section. T4, FREE Timed 12/04/2017 6:38 Results for this AM CDT procedure are in the results section. THYROID STIMULATING Timed 12/04/2017 6:38 Results for this HORMONE AM CDT procedure are in the results section. PHOSPHORUS LEVEL Timed 12/04/2017 6:38 Results for this AM CDT procedure are in the results section. MAGNESIUM LEVEL Timed 12/04/2017 6:38 Results for this AM CDT procedure are in the results section. LIPID PANEL Timed 12/04/2017 6:38 Results for this AM CDT procedure are in the results section. COMPREHENSIVE METABOLIC Timed 12/04/2017 6:38 Results for this PANEL AM CDT procedure are in the results section. TROPONIN Timed 12/04/2017 6:38 Results for this AM CDT procedure are in the results section. PROTHROMBIN TIME WITH Routine 12/04/2017 6:38 Results for this INR AM CDT procedure are in the results section. HC COMPLETE BLD COUNT Routine 12/04/2017 6:38 Results for this W/AUTO DIFF AM CDT procedure are in the results section. IONIZED CALCIUM Routine 12/04/2017 6:38 Results for this AM CDT procedure are in the results section. LIPID PANEL Routine 12/04/2017 6:38 Results for this AM CDT procedure are in the results section. POC GLUCOSE Routine 12/04/2017 12:50 Results for this AM CDT procedure are in the results section. CT RENAL STONE PROTOCOL STAT 12/03/2017 8:15 Results for this PM CDT procedure are in the results section. CLOSTRIDIUM DIFFICILE Routine 12/03/2017 4:51 Results for this TOXIN PM CDT procedure are in the results section. US RENAL STAT 12/03/2017 3:32 Results for this PM CDT procedure are in the results section. URINALYSIS SCREEN AND STAT 12/03/2017 2:10 Results for this MICROSCOPY, WITH REFLEX PM CDT procedure are in TO CULTURE the results section. GRAM STAIN STAT 12/03/2017 2:10 Results for this PM CDT procedure are in the results section. URINE CULTURE STAT 12/03/2017 2:10 Results for this PM CDT procedure are in the results section. MANUAL DIFFERENTIAL STAT 12/03/2017 2:00 Results for this PM CDT procedure are in the results section. ESTIMATED GFR STAT 12/03/2017 2:00 Results for this PM CDT procedure are in the results section. CBC WITH PLATELET AND STAT 12/03/2017 2:00 Results for this DIFFERENTIAL PM CDT procedure are in the results section. COMPREHENSIVE METABOLIC STAT 12/03/2017 2:00 Results for this PANEL PM CDT procedure are in the results section. MI CRITICAL CARE, E/M Routine 12/03/2017 1:06 Results for this 30-74 MINUTES PM CDT procedure are in the results section. ECG PRE/POST OP Routine 12/01/2017 1:07 Preop examination Results for this PM CDT Morbid obesity procedure are in the results section. ESTIMATED GFR Routine 12/01/2017 1:06 Results for this PM CDT procedure are in the results section. CBC HEMOGRAM Routine 12/01/2017 1:06 Preop examination Results for this PM CDT procedure are in the results section. HEMOGLOBIN A1C Routine 12/01/2017 1:06 Preop examination Results for this PM CDT Morbid obesity procedure are in the results section. TYPE AND SCREEN Routine 12/01/2017 1:06 Preop examination Results for this PM CDT procedure are in the results section. HEPATIC FUNCTION PANEL Routine 12/01/2017 1:06 Preop examination Results for this PM CDT Liver disease procedure are in the results section. PARTIAL THROMBOPLASTIN Routine 12/01/2017 1:06 Preop examination Results for this TIME (PTT) PM CDT Liver disease procedure are in the results section. PROTHROMBIN TIME WITH Routine 12/01/2017 1:06 Preop examination Results for this INR PM CDT Liver disease procedure are in the results section. BASIC METABOLIC PANEL Routine 12/01/2017 1:06 Preop examination Results for this PM CDT Liver disease procedure are in the results section. URINALYSIS, COMPLETE, Routine 11/13/2017 1:21 Results for this WITH REFLEX TO CULTURE PM [employer]URN[employer] procedure are in the results section. URINE CULTURE Routine 11/13/2017 1:21 Results for this PM [employer] procedure are in the results section. CLOSTRIDIUM DIFFICILE Routine 11/13/2017 1:21 Results for this TOXIN PM [employer] procedure are in the results section. ANTI XA, LOW MOLECULAR Routine 10/23/2017 9:00 Results for this WEIGHT AM [employer] procedure are in the results section. CT ABDOMEN PELVIS W STAT 10/23/2017 5:53 Results for this CONTRAST AM [employer] procedure are in the results section. ESTIMATED GFR Routine 10/23/2017 4:00 Results for this AM [employer] procedure are in the results section. BASIC METABOLIC PANEL Routine 10/23/2017 4:00 Results for this AM [employer] procedure are in the results section. URINALYSIS SCREEN AND Routine 10/22/2017 5:45 Results for this MICROSCOPY, WITH REFLEX PM [employer] procedure are in TO CULTURE the results section. GRAM STAIN Routine 10/22/2017 5:45 Results for this PM [employer] procedure are in the results section. URINE CULTURE Routine 10/22/2017 5:45 Results for this PM [employer] procedure are in the results section. COLONOSCOPY 10/22/2017 8:00 Colovesical fistula AM [employer] ESTIMATED GFR Routine 10/22/2017 3:58 Results for this AM [employer] procedure are in the results section. BASIC METABOLIC PANEL Routine 10/22/2017 3:58 Results for this AM [employer] procedure are in the results section. HC COMPLETE BLD COUNT Routine 10/22/2017 3:30 Results for this W/AUTO DIFF AM [employer] procedure are in the results section. PARTIAL THROMBOPLASTIN Timed 10/22/2017 12:45 Results for this TIME (PTT) AM [employer] procedure are in the results section. ECHOCARDIOGRAM 2D Routine 10/21/2017 8:12 Results for this COMPLETE W MMODE PM [employer] procedure are in SPECTRAL COLOR DOPPLER the results (87309) section. PARTIAL THROMBOPLASTIN Routine 10/21/2017 5:49 Results for this TIME (PTT) PM [employer] procedure are in the results section. XR CHEST 1 VW PORTABLE Routine 10/21/2017 1:33 Results for this PM [employer] procedure are in the results section. ECG 12-LEAD Routine 10/21/2017 1:11 Results for this PM [employer] procedure are in the results section. PARTIAL THROMBOPLASTIN Timed 10/21/2017 10:30 Results for this TIME (PTT) AM [employer] procedure are in the results section. US RENAL Routine 10/21/2017 10:02 Results for this AM [employer] procedure are in the results section. SALMONELLA/SHIGELLA Routine 10/21/2017 9:09 Results for this CULTURE AM [employer] procedure are in the results section. GASTROINTESTINAL PANEL Routine 10/21/2017 9:09 Results for this AM [employer] procedure are in the results section. CONSULT TO OSTOMY CARE Routine 10/21/2017 5:38 NURSE AM [employer] ANTI XA, UNFRACTIONATED Routine 10/21/2017 2:53 Results for this AM [employer] procedure are in the results section. PROTHROMBIN TIME WITH Routine 10/21/2017 2:53 Results for this INR AM [employer] procedure are in the results section. PARTIAL THROMBOPLASTIN Routine 10/21/2017 2:53 Results for this TIME (PTT) AM [employer] procedure are in the results section. HC COMPLETE BLD COUNT Routine 10/21/2017 2:10 Results for this W/AUTO DIFF AM [employer] procedure are in the results section. URINE EOSINOPHILS Routine 10/21/2017 1:30 Results for this AM [employer] procedure are in the results section. CHLORIDE LEVEL, URINE, Routine 10/21/2017 1:30 Results for this RANDOM AM [employer] procedure are in the results section. UREA NITROGEN, URINE, Routine 10/21/2017 1:30 Results for this RANDOM AM [employer] procedure are in the results section. CREATININE LEVEL, URINE, Routine 10/21/2017 1:30 Results for this RANDOM AM [employer] procedure are in the results section. PROTEIN, URINE, RANDOM Routine 10/21/2017 1:30 Results for this AM [employer] procedure are in the results section. SODIUM LEVEL, URINE, Routine 10/21/2017 1:30 Results for this RANDOM AM [employer] procedure are in the results section. ANTI XA, UNFRACTIONATED Routine 10/21/2017 12:21 Results for this AM [employer] procedure are in the results section. PROTHROMBIN TIME WITH Routine 10/21/2017 12:21 Results for this INR AM [employer] procedure are in the results section. PARTIAL THROMBOPLASTIN Routine 10/21/2017 12:21 Results for this TIME (PTT) AM [employer] procedure are in the results section. CBC WITH PLATELET AND Routine 10/21/2017 12:21 Results for this DIFFERENTIAL AM [employer] procedure are in the results section. THYROID STIMULATING Routine 10/21/2017 12:00 Results for this HORMONE AM [employer] procedure are in the results section. T4 Routine 10/21/2017 12:00 Results for this AM [employer] procedure are in the results section. ESTIMATED GFR Routine 10/21/2017 12:00 Results for this AM [employer] procedure are in the results section. COMPREHENSIVE METABOLIC Routine 10/21/2017 12:00 Results for this PANEL AM [employer] procedure are in the results section. CT CHEST EXTERNAL STUDY Routine 10/20/2017 6:55 Results for this PM [employer] procedure are in the results section. XR CHEST EXTERNAL STUDY Routine 10/20/2017 5:10 Results for this PM [employer] procedure are in the results section. after 05/03/2017 Results [facility] papsmear custom order (12/18/2017) Narrative Performed At POC glucose (12/16/2017 7:47 AM)Only the most recent of30 resultswithin the time period is included. POC glucose 112 (H) 65 - 99 mg/dL [facility] DEPARTMENT OF PATHOLOGY Comment: AND GENOMIC MEDICINE [facility]LY [facility] Notified RN Meter ID: [id number] Sales Lead Generator: Mary Lou Elizabeth Performing Organization Address City/State/Zipcode Phone Number [facility] DEPARTMENT OF PATHOLOGY AND [address] [place] [address] [employer] Estimated GFR (12/16/2017 4:00 AM)Only the most recent of15 resultswithin the time period is included. GFR Non Af Amer 64 mL/min/1.73 m2 [facility] DEPARTMENT OF PATHOLOGY AND GENOMIC MEDICINE GFR Af Amer 77 mL/min/1.73 m2 [facility] DEPARTMENT OF Comment: PATHOLOGY AND GENOMIC Chronic kidney disease: <60 mL/min/1.73m2 MEDICINE Kidney failure: <15 mL/min/1.73m2 The estimated GFR is calculated from the IDMS-traceable Modification of Diet in Renal Disease Equation. The accuracy of the calculation is poor when the creatinine is normal. Calculated values >90 mL/min/1.73m2 are not reported. This equation has not been validated in children (<18 years), women, the elderly (>70 years), or ethnic groups other than Caucasians and Americans. Specimen Plasma specimen Performing Organization Address City/[facility] Phone Number [facility] DEPARTMENT OF PATHOLOGY AND [address] [place] [address] Phosphorus level (12/16/2017 4:00 AM)Only the most recent of6 resultswithin the time period is included. Phosphorus 2.6 2.4 - 4.5 mg/dL [facility] DEPARTMENT OF PATHOLOGY AND GENOMIC MEDICINE Specimen Plasma specimen Performing Organization Address City/[facility] Phone Number [facility] DEPARTMENT OF PATHOLOGY AND [address] [place] [address] Magnesium level (12/16/2017 4:00 AM)Only the most recent of7 resultswithin the time period is included. Magnesium 2.0 1.6 - 2.4 mg/dL [facility] DEPARTMENT OF PATHOLOGY AND GENOMIC MEDICINE Specimen Plasma specimen Performing Organization Address City/[facility] Phone Number [facility] DEPARTMENT OF PATHOLOGY AND [address] [place] [address] Basic metabolic panel (12/16/2017 4:00 AM)Only the most recent of12 resultswithin the time period is included. Sodium 142 135 - 148 mEq/L [facility] DEPARTMENT OF PATHOLOGY AND GENOMIC MEDICINE Potassium 4.3 3.5 - 5.0 mEq/L [facility] DEPARTMENT OF PATHOLOGY AND GENOMIC MEDICINE Chloride 106 98 - 112 mEq/L [facility] DEPARTMENT OF PATHOLOGY AND GENOMIC MEDICINE CO2 24 24 - 31 mEq/L [facility] DEPARTMENT OF PATHOLOGY AND GENOMIC MEDICINE Anion gap 12 7 - 15 mEq/L [facility] DEPARTMENT OF PATHOLOGY Comment: AND GENOMIC MEDICINE Starting from December , anion gap calculation no longer incorporates potassium. Please note the change. BUN 31 (H) 8 - 23 mg/dL [facility] DEPARTMENT OF PATHOLOGY AND GENOMIC MEDICINE Creatinine 0.9 0.5 - 0.9 mg/dL [facility] DEPARTMENT OF PATHOLOGY AND GENOMIC MEDICINE Glucose 128 (H) 65 - 99 mg/dL [facility] DEPARTMENT OF PATHOLOGY AND GENOMIC MEDICINE Calcium 8.8 8.8 - 10.2 mg/dL [facility] DEPARTMENT OF PATHOLOGY AND GENOMIC MEDICINE Specimen Plasma specimen Performing Organization Address City/State/Zipcode Phone Number [facility] DEPARTMENT OF PATHOLOGY AND [address] [place] [address] GENOMIC MEDICINE CBC with platelet and differential (12/16/2017 3:40 AM)Only the most recent of14 resultswithin the time period is included. WBC 7.87 4.50 - 11.00 k/uL [facility] DEPARTMENT OF PATHOLOGY AND GENOMIC MEDICINE RBC 2.95 (L) 4.20 - 5.50 m/uL [facility] DEPARTMENT OF PATHOLOGY AND GENOMIC MEDICINE HGB 8.2 (L) 12.0 - 16.0 g/dL [facility] DEPARTMENT OF PATHOLOGY AND GENOMIC MEDICINE HCT 27.1 (L) 37.0 - 47.0 % [facility] DEPARTMENT OF PATHOLOGY AND GENOMIC MEDICINE MCV 91.9 82.0 - 100.0 fL [facility] DEPARTMENT OF PATHOLOGY AND GENOMIC MEDICINE MCH 27.8 27.0 - 34.0 pg [facility] DEPARTMENT OF PATHOLOGY AND GENOMIC MEDICINE MCHC 30.3 (L) 31.0 - 37.0 g/dL [facility] DEPARTMENT OF PATHOLOGY AND GENOMIC MEDICINE RDW - SD 50.4 37.0 - 55.0 fL [facility] DEPARTMENT OF PATHOLOGY AND GENOMIC MEDICINE MPV 10.1 8.8 - 13.2 fL [facility] DEPARTMENT OF PATHOLOGY AND GENOMIC MEDICINE Platelet count 266 150 - 400 k/uL [facility] DEPARTMENT OF PATHOLOGY AND GENOMIC MEDICINE Nucleated RBC 0.30 /100 WBC [facility] DEPARTMENT OF PATHOLOGY AND GENOMIC MEDICINE Neutrophils 69.5 (H) 39.0 - 69.0 % [facility] DEPARTMENT OF PATHOLOGY AND GENOMIC MEDICINE Lymphocytes 18.7 (L) 25.0 - 45.0 % [facility] DEPARTMENT OF PATHOLOGY AND GENOMIC MEDICINE Monocytes 10.8 (H) 0.0 - 10.0 % [facility] DEPARTMENT OF PATHOLOGY AND GENOMIC MEDICINE Eosinophils 0.3 0.0 - 5.0 % [facility] DEPARTMENT OF PATHOLOGY AND GENOMIC MEDICINE Basophils 0.1 0.0 - 1.0 % [facility] DEPARTMENT OF PATHOLOGY AND GENOMIC MEDICINE Immature granulocytes 0.6Comment: 0.0 - 1.0 % [facility] DEPARTMENT OF "Immature PATHOLOGY AND GENOMIC granulocytes" MEDICINE (promyelocytes, myelocytes, metamyelocytes) Specimen Blood Performing Organization Address [facility] Phone Number [facility] DEPARTMENT OF PATHOLOGY AND [address] [place] [address] [facility] Uric acid level (12/14/2017 4:00 AM) Uric acid 8.6 (H) 2.4 - 5.7 mg/dL [facility] DEPARTMENT OF PATHOLOGY AND GENOMIC MEDICINE Specimen Plasma specimen Performing Organization Address [facility] Phone Number [facility] DEPARTMENT OF PATHOLOGY AND [address] [place], [place] [id number] [facility] XR Knee 3 Vw Left (12/13/2017 3:42 PM) Narrative Performed At EXAMINATION:XR KNEE 3 VW LEFT [facility] CLINICAL HISTORY:FOCAL TENDERNESSKNEE COMPARISON:No Prior IMPRESSION: 1.Severe tricompartmental osteoarthritis of the knee is noted with xlhc-bc-idod contact in the medial and patellofemoral compartments. Chondrocalcinosis in the lateral compartment. No joint effusion. [id number] Procedure Note Interface, Radiology Results Incoming - 12/13/2017 8:53 PM CDT EXAMINATION: XR KNEE 3 VW LEFT CLINICAL HISTORY: FOCAL TENDERNESS KNEE COMPARISON: No Prior IMPRESSION: 1. Severe tricompartmental osteoarthritis of the knee is noted with bone-on- bone contact in the medial and patellofemoral compartments. Chondrocalcinosis in the lateral compartment. No joint effusion. [id number] Performing Organization Address [facility] Phone Number [facility] [address] [place] [address] IR Tunneled Central Line Placement (12/11/2017 11:24 AM) Narrative Performed At Performing Radiologist EKTA Grier MD Assistants None. Anesthesia Type Moderate sedation was administered by the procedure nurse and monitored by the procedure physician for a total vwyr-fs-vuqi sedation time of 14 minutes. Lidocaine 1% [...] then returned to the venotomy site. A 6-Malagasy Powerline tunneled central venous catheter was then [...] report. Impression: Successful fluoroscopic-guided placement of a 6-Malagasy Powerline tunneled central venous catheter via the right external jugular vein. The catheter tip lies at the right atrium/superior vena cava junction and is ready for use. [id number] Procedure Note [facility], Radiology Results Incoming - 12/11/2017 11:34 AM CDT Performing Radiologist Harman Grier MD Assistants None. Anesthesia Type Moderate sedation was administered by the procedure nurse and monitored by the procedure physician for a total imya-yw-ykff sedation time of 14 minutes. Lidocaine 1% [...] then returned to the venotomy site. A 6-Malagasy Powerline tunneled central venous catheter was then [...] report. Impression: Successful fluoroscopic-guided placement of a 6-Malagasy Powerline tunneled central venous catheter via the right external jugular vein. The catheter tip lies at the right atrium/superior vena cava junction and is ready for use. [id number] Performing Organization Address City/State/Zipcode Phone Number [facility] [address] [place] [address] Type and screen (12/10/2017 3:42 AM)Only the most recent of2 resultswithin the time period is included. ABO grouping B [facility] DEPARTMENT OF PATHOLOGY AND GENOMIC MEDICINE Rh type POS [facility] DEPARTMENT OF PATHOLOGY AND GENOMIC [facility] Antibody screen (gel) NEG [facility] DEPARTMENT OF PATHOLOGY AND GENOMIC [facility] Specimen Blood Performing Organization Address City/[facility]/Zipcode Phone Number [facility] DEPARTMENT OF PATHOLOGY AND [address] [place] [address] Partial thromboplastin time, activated (12/09/2017 5:40 PM)Only the most recent of7 resultswithin the time period is included. PTT 30.4 23.0 - 36.0 sec [facility] DEPARTMENT OF PATHOLOGY Comment: AND [facility] PTT therapeutic range for unfractionated heparin is 61.0-112.0 seconds which corresponds to Anti-Xa 0.3-0.7 U/ml. Specimen Blood Performing Organization Address City/[facility] Phone Number [facility] DEPARTMENT OF PATHOLOGY AND [address] [place] [address] Prothrombin time with INR (12/09/2017 5:40 PM)Only the most recent of6 resultswithin the time period is included. Prothrombin time 14.9 12.0 - 15.0 sec [facility] DEPARTMENT OF PATHOLOGY AND GENOMIC MEDICINE INR 1.2 [facility] DEPARTMENT OF Comment: PATHOLOGY AND GENOMIC [facility] International Normalized Ratio (INR) is a therapeutic MEDICINE monitoring tool for patients who are stable on oral anticoagulant therapy. An INR of 2.0-3.0 is suggested for deep vein thrombosis/pulmonary embolism. Specimen Blood Performing Organization Address [facility] Phone Number [facility] DEPARTMENT OF PATHOLOGY AND [address] [place] [address] Ionized calcium (12/09/2017 5:40 PM)Only the most recent of2 resultswithin the time period is included. pH 7.49 [facility] DEPARTMENT OF PATHOLOGY AND GENOMIC MEDICINE Ionized calcium 1.10 (L) 1.11 - 1.32 mmol/L [facility] DEPARTMENT OF PATHOLOGY AND GENOMIC [facility] Specimen Plasma specimen Performing Organization Address City/[facility] Phone Number [facility] DEPARTMENT OF PATHOLOGY AND [address] [place] [address] Total iron binding capacity (12/05/2017 5:15 AM) Iron level 42 37 - 145 ug/dL [facility] DEPARTMENT OF PATHOLOGY AND GENOMIC MEDICINE Iron binding capacity 228 200 - 400 ug/dL [facility] DEPARTMENT OF PATHOLOGY AND GENOMIC MEDICINE % Saturation 18.4 15.0 - 38.0 % [facility] DEPARTMENT OF PATHOLOGY AND GENOMIC MEDICINE Specimen Plasma specimen Performing Organization Address City/[facility]/Zipcode Phone Number [facility] DEPARTMENT OF PATHOLOGY AND [address] [place] [address] [facility] Vitamin D 25 hydroxy level (12/05/2017 5:15 AM) Vitamin D, 25-hydroxy 18.6 (L) 30.0 - 150.0 [facility] DEPARTMENT OF Comment: ng/mL PATHOLOGY AND GENOMIC This assay reports the sum of 25-hydroxy vitamin D3 and 25-hydroxy vitamin MEDICINE D2. Reference range: 0-17 years: Deficiency: less [...] please contact lab for alternative methods. Specimen Blood Performing Organization Address City/[facility]/Zipcode Phone Number [facility] DEPARTMENT OF PATHOLOGY AND [address] [place] [id number] [facility] Parathyroid hormone (12/05/2017 5:15 AM) PTH 121 (H) 15 - 65 pg/mL [facility] DEPARTMENT OF PATHOLOGY AND GENOMIC MEDICINE Specimen Blood Performing Organization Address City/[facility]/Zipcode Phone Number [facility] DEPARTMENT OF PATHOLOGY AND [address] [place] [id number] [facility] Ferritin level (12/05/2017 5:15 AM) Ferritin level 51 13 - 150 ng/mL [facility] DEPARTMENT OF PATHOLOGY AND GENOMIC MEDICINE Specimen Plasma specimen Performing Organization Address City/[facility]/Zipcode Phone Number [facility] DEPARTMENT OF PATHOLOGY AND [address] [place] [id number] [facility] Hepatic function panel (12/05/2017 5:15 AM)Only the most recent of2 resultswithin the time period is included. Albumin 2.8 (L) 3.5 - 5.0 g/dL [facility] DEPARTMENT OF PATHOLOGY AND GENOMIC MEDICINE Total bilirubin <0.2 0.0 - 1.2 mg/dL [facility] DEPARTMENT OF PATHOLOGY AND GENOMIC MEDICINE Bilirubin direct <0.2 0.0 - 0.3 mg/dL [facility] DEPARTMENT OF PATHOLOGY AND GENOMIC MEDICINE Alkaline phosphatase 62 35 - 104 U/L [facility] DEPARTMENT OF PATHOLOGY AND GENOMIC MEDICINE Protein 7.4 6.3 - 8.3 g/dL [facility] DEPARTMENT OF Comment: PATHOLOGY AND GENOMIC 4.6-7.0 g/dL MEDICINE 1 week 4.4-7.6 g/dL 7 months-1year5.1-7.3 g/dL 1-2 years5.6-7.5 g/dL >3 years6.0-8.0 g/dL 18-150 6.3-8.3 g/dL ALT 9 5 - 50 U/L [facility] DEPARTMENT OF PATHOLOGY AND GENOMIC MEDICINE AST 19 10 - 35 U/L [facility] DEPARTMENT OF PATHOLOGY AND GENOMIC [facility] Specimen Plasma specimen Performing Organization Address City/[facility] Phone Number [facility] DEPARTMENT OF PATHOLOGY [place] [address] [email or web address] MEDICINE Gastrointestinal panel (12/04/2017 10:00 AM)Only the most recent of2 resultswithin the time period is included. Gastrointestinal panel Negative for all pathogens tested: [facility] DEPARTMENT OF Negative for Salmonella PATHOLOGY AND GENOMIC Negative for Campylobacter MEDICINE Negative for Diarrheagenic E coli/Shigella Negative for [...] Specimen Source: Stool Specimen Site: Nonpreserved Specimen Stool - Nonpreserved Performing Organization Address City/[facility] Phone Number [facility] DEPARTMENT OF PATHOLOGY AND [address] [place] [address] Troponin (12/04/2017 6:38 AM) Troponin <0.30 0.00 - 0.30 ng/mL [facility] DEPARTMENT OF PATHOLOGY Comment: AND GENOMIC MEDICINE 0.30 - 1.49 ng/mlMay indicate increased risk of acute coronary syndrome. >=1.5 ng/mlConsistent with acute myocardial infarction. The diagnostic value of a single normal or non-diagnostic result is questionable.Serial samples at 2-6 hour intervals are required to rule out acute myocardial injury. Specimen Plasma specimen Performing Organization Address City/[facility] Phone Number [facility] DEPARTMENT OF PATHOLOGY AND [address] [place] [address] Thyroid stimulating hormone (12/04/2017 6:38 AM)Only the most recent of2 resultswithin the time period is included. TSH 5.91 (H) 0.27 - 4.20 uIU/mL [facility] DEPARTMENT OF PATHOLOGY AND GENOMIC MEDICINE Specimen Plasma specimen Performing Organization Address City/[facility] Phone Number [facility] DEPARTMENT OF PATHOLOGY AND [address] [place] [address] T4, free (12/04/2017 6:38 AM) T4, free 1.2 0.9 - 1.7 ng/dL [facility] DEPARTMENT OF PATHOLOGY AND GENOMIC MEDICINE Specimen Plasma specimen Performing Organization Address City/[facility] Phone Number [facility] DEPARTMENT OF PATHOLOGY AND [address] [place] [address] Lipid panel (12/04/2017 6:38 AM)Only the most recent of2 resultswithin the time period is included. Cholesterol 120 <200 mg/dL [facility] DEPARTMENT OF PATHOLOGY AND GENOMIC MEDICINE Triglycerides 251 (H) <150 mg/dL [facility] DEPARTMENT OF PATHOLOGY AND GENOMIC MEDICINE HDL cholesterol 30 (L) >40 mg/dL [facility] DEPARTMENT OF PATHOLOGY AND GENOMIC MEDICINE LDL cholesterol 51Comment: Result <100 mg/dL [facility] DEPARTMENT OF obtained by direct LDL PATHOLOGY AND GENOMIC measurement MEDICINE Lipid panel interpretation SeeBelow [facility] DEPARTMENT OF Comment: PATHOLOGY AND GENOMIC Total Cholesterol (mg/dL) MEDICINE <200 Desirable [id number] >=240High Triglycerides (mg/dL) <150 Normal [id number] 200-499High >=500Very high HDL Cholesterol (mg/dL) <40Low (male) <40Low (female) LDL Cholesterol (mg/dL) <100 Optimal 100-129Near or above optimal [phone] 160-189High >=190Very high Risk Catergories that modify [...] persons with high triglycerides (>=200 mg/dL) Specimen Plasma specimen Performing Organization Address City/State/Zipcode Phone Number [facility] DEPARTMENT OF PATHOLOGY AND [address] [place] [address] [email or web address] [facility] Comprehensive metabolic panel (12/04/2017 6:38 AM)Only the most recent of3 resultswithin the time period is included. Sodium 141 135 - 148 mEq/L [facility] DEPARTMENT OF PATHOLOGY AND GENOMIC MEDICINE Potassium 4.2 3.5 - 5.0 mEq/L [facility] DEPARTMENT OF PATHOLOGY AND GENOMIC MEDICINE Chloride 105 98 - 112 mEq/L [facility] DEPARTMENT OF PATHOLOGY AND GENOMIC MEDICINE CO2 21 (L) 24 - 31 mEq/L [facility] DEPARTMENT OF PATHOLOGY AND GENOMIC MEDICINE Anion gap 15 7 - 15 mEq/L [facility] DEPARTMENT OF Comment: PATHOLOGY AND GENOMIC Starting from December , anion gap calculation MEDICINE no longer incorporates potassium. Please note the change. BUN 50 (H) 8 - 23 mg/dL [facility] DEPARTMENT OF PATHOLOGY AND GENOMIC MEDICINE Creatinine 1.7 (H) 0.5 - 0.9 mg/dL [facility] DEPARTMENT OF PATHOLOGY AND GENOMIC MEDICINE Glucose 93 65 - 99 mg/dL [facility] DEPARTMENT OF PATHOLOGY AND GENOMIC MEDICINE Calcium 8.9 8.8 - 10.2 mg/dL [facility] DEPARTMENT OF PATHOLOGY AND GENOMIC MEDICINE Protein 7.1 6.3 - 8.3 g/dL [facility] DEPARTMENT OF Comment: PATHOLOGY AND GENOMIC 4.6-7.0 g/dL MEDICINE 1 week 4.4-7.6 g/dL 7 months-1year5.1-7.3 g/dL 1-2 years5.6-7.5 g/dL >3 years6.0-8.0 g/dL 18-150 6.3-8.3 g/dL Albumin 2.8 (L) 3.5 - 5.0 g/dL [facility] DEPARTMENT OF PATHOLOGY AND GENOMIC MEDICINE A/G ratio 0.7 0.7 - 3.8 [facility] DEPARTMENT OF PATHOLOGY AND GENOMIC MEDICINE Alkaline phosphatase 72 35 - 104 U/L [facility] DEPARTMENT OF PATHOLOGY AND GENOMIC MEDICINE AST 15 10 - 35 U/L [facility] DEPARTMENT OF PATHOLOGY AND GENOMIC MEDICINE ALT 9 5 - 50 U/L [facility] DEPARTMENT OF PATHOLOGY AND GENOMIC MEDICINE Total bilirubin <0.2 0.0 - 1.2 mg/dL [facility] DEPARTMENT OF PATHOLOGY AND GENOMIC MEDICINE Specimen Plasma specimen Performing Organization Address City/State/Zipcode Phone Number [facility] DEPARTMENT OF PATHOLOGY AND [address] [place] [address] [facility] [address] Renal Stone Protocol (12/03/2017 8:15 PM) Narrative Performed At CT RENAL STONE PROTOCOL [facility] CLINICAL INDICATION:acute renal failure TECHNIQUE: Multidetector CT [...] of 10/23/2017. 3. Hepatosplenomegaly. Chronic liver disease. [id number] Procedure Note [facility], Radiology Results Incoming - 12/03/2017 8:52 [...] of 10/23/2017. 3. Hepatosplenomegaly. Chronic liver disease. [id number] Performing Organization Address City/State/Zipcode Phone Number [facility] [address] [place] [address] C difficile toxin (12/03/2017 4:51 PM)Only the most recent of2 resultswithin the time period is included. Clostridium difficile No Clostridium difficle toxin present [facility] DEPARTMENT OF toxin Comment: PATHOLOGY AND GENOMIC Specimen Information MEDICINE Specimen Source: Stool Specimen Site: Nonpreserved Specimen Stool - Nonpreserved Performing Organization Address City/State/Zipcode Phone Number [facility] DEPARTMENT OF PATHOLOGY AND [address] [place] [phone] GENOMIC MEDICINE US Renal (12/03/2017 3:32 PM)Only the most recent of2 resultswithin the time period is included. Narrative Performed At EXAMINATION:US RENAL [facility] CLINICAL HISTORY:HYDRONEPHROSIS COMPARISON:None. FINDINGS: The kidneys are [...] IMPRESSION: Bilateral nephrolithiasis with mild left pelviectasis.. [id number] Procedure Note Interface, Radiology Results Incoming - [...] IMPRESSION: Bilateral nephrolithiasis with mild left pelviectasis.. [id number] Performing Organization Address City/State/Zipcode Phone Number [facility] [address] [place] [address] Urinalysis screen and microscopy, with reflex to culture (12/03/2017 2:10 PM) Only the most recent of2 resultswithin the time period is included. Specimen site Clean catch [facility] DEPARTMENT OF PATHOLOGY AND GENOMIC MEDICINE Color, UA Brown [facility] DEPARTMENT OF PATHOLOGY AND GENOMIC MEDICINE Appearance, UA Turbid [facility] DEPARTMENT OF PATHOLOGY AND GENOMIC MEDICINE Specific gravity, UA 1.019 1.001 - 1.035 [facility] DEPARTMENT OF PATHOLOGY AND GENOMIC MEDICINE pH, UA 6.0 5.0 - 8.5 [facility] DEPARTMENT OF PATHOLOGY AND GENOMIC MEDICINE Protein, UA 2+ (A) Negative [facility] DEPARTMENT OF PATHOLOGY AND GENOMIC MEDICINE Glucose, UA Negative Negative [facility] DEPARTMENT OF PATHOLOGY AND GENOMIC MEDICINE Ketones, UA Trace (A) Negative [facility] DEPARTMENT OF PATHOLOGY AND GENOMIC MEDICINE Bilirubin, UA Negative Negative [facility] DEPARTMENT OF PATHOLOGY AND GENOMIC MEDICINE Blood, UA Small (A) Negative [facility] DEPARTMENT OF PATHOLOGY AND GENOMIC MEDICINE Nitrite, UA Negative Negative [facility] DEPARTMENT OF PATHOLOGY AND GENOMIC MEDICINE Urobilinogen, UA <2.0 <2.0 [facility] DEPARTMENT OF PATHOLOGY AND GENOMIC MEDICINE Leukocyte esterase, UA Small (A) Negative [facility] DEPARTMENT OF PATHOLOGY AND GENOMIC MEDICINE WBC, UA SEE COMMENTComment: 0 - 4 /HPF [facility] DEPARTMENT OF Footnote--------- PATHOLOGY AND GENOMIC MEDICINE RBC, UA SEE COMMENT 0 - 2 /HPF [facility] DEPARTMENT OF Comment: PATHOLOGY AND GENOMIC Footnote--------- MEDICINE UNABLE TO DO MICROSCOPIC PORTION OF THE TEST DUE TO POSSIBLE CONTAMINATION. ONIEL COTTER/AMENA NOTIFIED Bacteria, UA SEE COMMENTComment: None seen [facility] DEPARTMENT OF Footnote--------- PATHOLOGY AND GENOMIC MEDICINE WBC clumps, UA SEE COMMENTComment: [facility] DEPARTMENT OF Footnote--------- PATHOLOGY AND GENOMIC MEDICINE Yeast, UA SEE COMMENTComment: [facility] DEPARTMENT OF Footnote--------- PATHOLOGY AND GENOMIC MEDICINE Yeast with SEE COMMENTComment: [facility] DEPARTMENT OF pseudohyphae, UA Footnote--------- PATHOLOGY AND GENOMIC MEDICINE Specimen Urine Performing Organization Address City/[facility] Phone Number [facility] DEPARTMENT OF PATHOLOGY AND [address] [place] [address] GENOMIC MEDICINE Gram stain (12/03/2017 2:10 PM)Only the most recent of2 resultswithin the time period is included. Gram stain result Few WBC's [facility] DEPARTMENT OF PATHOLOGY Many Gram negative rods AND GENOMIC MEDICINE Many Gram positive rods Many Gram positive cocci in pairs Comment: Specimen Information Specimen Source: Urine Specimen Site: Clean catch Specimen Urine Performing Organization Address City/[facility] Phone Number [facility] DEPARTMENT OF PATHOLOGY AND [address] [place] [address] GENOMIC MEDICINE Urine culture (12/03/2017 2:10 PM)Only the most recent of3 resultswithin the time period is included. Urine culture isolate Mixed Gram positive medina [facility] DEPARTMENT OF >10-5 cfu/ml PATHOLOGY AND GENOMIC (A) MEDICINE Comment: Specimen Information Specimen Source: Urine Specimen Site: Clean catch Specimen Urine Performing Organization Address City/[facility] Phone Number [facility] DEPARTMENT OF PATHOLOGY AND [address] [place] [id number] [facility] MEDICINE Manual differential (12/03/2017 2:00 PM) Manual differential PERFORMED [facility] DEPARTMENT OF PATHOLOGY AND GENOMIC MEDICINE Neutrophils 66.0 39.0 - 69.0 % [facility] DEPARTMENT OF PATHOLOGY AND GENOMIC MEDICINE Lymphocytes 19.0 (L) 25.0 - 45.0 % [facility] DEPARTMENT OF PATHOLOGY AND GENOMIC MEDICINE Monocytes 8.0 0.0 - 10.0 % [facility] DEPARTMENT OF PATHOLOGY AND GENOMIC MEDICINE Eosinophils 4.0 0.0 - 5.0 % [facility] DEPARTMENT OF PATHOLOGY AND GENOMIC MEDICINE Basophils 0.0 0.0 - 1.0 % [facility] DEPARTMENT OF PATHOLOGY AND GENOMIC MEDICINE Metamyelocytes 0 % [facility] DEPARTMENT OF PATHOLOGY AND GENOMIC MEDICINE Myelocytes 3 % [facility] DEPARTMENT OF PATHOLOGY AND GENOMIC MEDICINE Promyelocytes 0 % [facility] DEPARTMENT OF PATHOLOGY AND GENOMIC MEDICINE Reactive lymphocytes Few [facility] DEPARTMENT OF PATHOLOGY AND GENOMIC MEDICINE Platelet slide review Oksana adequate [facility] DEPARTMENT OF PATHOLOGY AND GENOMIC MEDICINE Anisocytosis Moderate [facility] DEPARTMENT OF PATHOLOGY AND GENOMIC MEDICINE Polychromasia Moderate [facility] DEPARTMENT OF PATHOLOGY AND GENOMIC MEDICINE Spherocytes Occasional [facility] DEPARTMENT OF PATHOLOGY AND GENOMIC MEDICINE Ovalocytes Moderate [facility] DEPARTMENT OF PATHOLOGY AND GENOMIC MEDICINE Enlarged platelets Moderate (A) [facility] DEPARTMENT OF PATHOLOGY AND GENOMIC MEDICINE Performing Organization Address City/[facility] Phone Number [facility] DEPARTMENT OF PATHOLOGY AND [address] [place] [id number] [facility] MEDICINE CRITICAL CARE (12/03/2017 1:06 PM) Narrative Performed At Annette May MD 12/05/20178:21 AM Critical Care [...] no ECG Pre/Post Op (12/01/2017 1:07 PM) Ventricular rate 73 [facility] MUSE Atrial rate 73 [facility] MUSE MI interval 152 [facility] MUSE QRSD interval 84 [facility] MUSE QT interval 400 [facility] MUSE QTC interval 440 [facility] MUSE P axis 1 46 [facility] MUSE QRS axis 1 21 [facility] MUSE T wave axis 35 [facility] MUSE EKG impression Normal sinus rhythm-Normal ECG-Electronically [facility] MUSE Signed By Reinaldo Simon MD ([id number]) on 12/01/2017 5:59:51 PM Performing Organization Address City/State/[facility]ode Phone Number [facility] MUSE [address] [place] [address] CBC hemogram (12/01/2017 1:06 PM) WBC 7.23 4.50 - 11.00 k/uL [facility] DEPARTMENT OF PATHOLOGY AND GENOMIC MEDICINE RBC 3.03 (L) 4.20 - 5.50 m/uL [facility] DEPARTMENT OF PATHOLOGY AND GENOMIC MEDICINE HGB 8.6 (L) 12.0 - 16.0 g/dL [facility] DEPARTMENT OF PATHOLOGY AND GENOMIC MEDICINE HCT 28.6 (L) 37.0 - 47.0 % [facility] DEPARTMENT OF PATHOLOGY AND GENOMIC MEDICINE MCV 94.4 82.0 - 100.0 fL [facility] DEPARTMENT OF PATHOLOGY AND GENOMIC MEDICINE MCH 28.4 27.0 - 34.0 pg [facility] DEPARTMENT OF PATHOLOGY AND GENOMIC MEDICINE MCHC 30.1 (L) 31.0 - 37.0 g/dL [facility] DEPARTMENT OF PATHOLOGY AND GENOMIC MEDICINE RDW - SD 51.7 37.0 - 55.0 fL [facility] DEPARTMENT OF PATHOLOGY AND GENOMIC MEDICINE MPV 9.0 8.8 - 13.2 fL [facility] DEPARTMENT OF PATHOLOGY AND GENOMIC MEDICINE Platelet count 261 150 - 400 k/uL [facility] DEPARTMENT OF PATHOLOGY AND GENOMIC MEDICINE Nucleated RBC 0.00 /100 WBC [facility] DEPARTMENT OF PATHOLOGY AND GENOMIC MEDICINE Specimen Blood Performing Organization Address City/State/Zipcode Phone Number [facility] DEPARTMENT OF PATHOLOGY AND [address] [place] [address] [facility] Hemoglobin A1c (12/01/2017 1:06 PM) Hemoglobin A1C 5.0 4.0 - 5.6 % [facility] DEPARTMENT OF PATHOLOGY Comment: AND [email or web address] [facility] HbA1c cutoffs for diagnosing diabetes: 4.0% - 5.6%=normal 5.7% - 6.4%=increased risk for diabetes (prediabetes) >=6.5%=diabetes Goals for glycemic control (ADA 2016) < 7.0%Target for non adults with diabetes. More or less stringent targets may be appropriate for individual patients. <7.5% Target for Children and adolescents with type 1 diabetes. Specimen Blood Performing Organization Address City/[facility] Centercode Phone Number [facility] DEPARTMENT OF PATHOLOGY AND [address] [place] [address] [facility] URINALYSIS, COMPLETE, WITH REFLEX TO CULTURE (11/13/2017 1:21 PM) Color, UA BROWN (A) YELLOW [facility] Appearance TURBID (A) CLEAR [facility] WBC, UA > OR=60 (A) < OR=5 /HPF [facility] RBC, UA 3-10 (A) < OR=2 /HPF [facility] Squamous epithelial 0-5 < OR=5 /HPF [facility] cells, UA [facility] Bacteria, UA MANY (A) NONE SEEN /HPF [facility] Triple phosphate FEW NONE OR FEW /HPF [facility] crystals, UA [facility] Amorphous crystals FEW NONE OR FEW /HPF [facility] Hyaline casts, UA NONE SEEN NONE SEEN /LPF [facility] Comment FEW MUCOUS THREADS [facility] Note: [facility] Comment: [facility] This urine was analyzed for the presence of WBC, RBC, bacteria, casts, and other formed elements. Only those elements seen were reported. Specific gravity, urine TNP [facility] Comment: [facility] TEST(S) NOT PERFORMED: SPECIFIC GRAVITY PH GLUCOSE BILIRUBIN KETONES OCCULT BLOOD PROTEIN NITRITE LEUKOCYTE ESTERASE * Test not performed.* * Unable to perform testing* * due to color interference. * Reflex CULTURE INDICATED - [facility] RESULTS TO FOLLOW [facility] Narrative Performed At FASTING: UNKNOWN [facility] Comment Performing Organization Information: Site ID: [id number] Name: [facility] Address: [address] [place] [id number] Director: Gina Fisher MD Performing Organization Address City/State/Zipcode Phone Number [facility] [address] [place] [address] [phone] Anti Xa, low molecular weight (10/23/2017 9:00 AM) Heparin name Lovenox [facility] DEPARTMENT OF PATHOLOGY AND GENOMIC MEDICINE Anti Xa, low molecular 0.71 0.60 - 1.00 U/mL [facility] DEPARTMENT OF weight Comment: PATHOLOGY AND GENOMIC Specimen must be drawn at least 4 hours post dose following a MEDICINE minimum of 3 doses. Therapeutic Range:0.60 - 1.00 U/mL Specimen Blood Performing Organization Address [facility]ercodc Phone Number [facility] DEPARTMENT OF PATHOLOGY AND [address] [place] [address] [email or web address] [facility] CT Abdomen Pelvis W Contrast (10/23/2017 5:53 AM) Narrative Performed At EXAMINATION:CT ABDOMEN PELVIS W CONTRAST [facility] CLINICAL HISTORY:ABDOMINAL PAIN, DIARRHEA TECHNIQUE: Multiple axial [...] irregular liver possibly reflecting chronic liver disease. [id number] Procedure Note [facility], Radiology Results Incoming - 10/23/2017 6:10 AM [employer] EXAMINATION: CT ABDOMEN PELVIS W CONTRAST CLINICAL [...] irregular liver possibly reflecting chronic liver disease. [id number] Performing Organization Address City/State/Zipcode Phone Number [facility] [address] [facility] [place] [place] [address] Echocardiogram complete w contrast and 3D if needed (10/21/2017 8:12 PM) Narrative Performed At [facility] Echocardiography Report [address] [facility] [address], [place] [address] Pat.Name:Susan WADE.ID:[id number] .Date: 10/21/2017Refer.MD:ELIZABETH JACOB MD Exam Time: 6:49:00 PMStudy Type:Routine Echo Height:69inWeight: 308lb BSA: 2.48 m2 DOBAge:1955,62Y Sex: FEMALEBP:126/69 HR:103 bpm Sonogrphr: FIOR Kingsley Pat. Stat.:Inpatient Room:[address] Study Status:Final Echo Event ID:[id number] Order ID:[id number] Reason for Study:Perioperative Eval - Routine perioperative [...] RAPof 5 mmHg. MEASUREMENTS: 2D Parasternal [place] LVOT 1.9 cmLA Ds3.4 cm LVIDd4.6 cmIndex1.9 cm/m Ao An2.1 cm LVIDs2.6 cmAo Rtd 2.9 cm Index1.2 cm/m LV%fs 43.5 % LV Knig808.5 g(87-129) IVSd 0.8 cmLVM Index 43.8 g/m2 LVPWd0.7 cmRWT0.3 LA Sng Plane LA Area 25.3 cm2(8.8-23.4) LA Vol97.9 ml Index39.5 ml/m LA LngAx 5.3 cm Signed 10/22/2017 08:44 AM Yves Zaragoza MD Procedure Note Interface, Radiology Results In - 10/22/2017 8:44 AM [facility] Echocardiography Report [address] [place] [address] Pat.Name: ROSIO WADE Pat.ID: [id number] .Date: 10/21/2017 Harmony.MD: ELIZABETH JACOB MD Exam Time: 6:49:00 PM Study Type:Routine Echo Height: 69in Weight: 308lb BSA: 2.48 m2 Age: 13 1955,62Y Sex: FEMALE BP: 126/69 HR: 103 bpm Sonogrphr: FIOR Kingsley Pat. Stat.:Inpatient Room: [address] Study Status:Final Echo Event ID:[id number] Order ID: [id number] Reason for Study:Perioperative Eval - Routine perioperative [...] of 5 mmHg. MEASUREMENTS: 2D Parasternal [place] LVOT 1.9 cm LA Ds 3.4 cm [...] Signed 10/22/2017 08:44 AM Yves Zaragoza MD Performing Organization Address [facility]ercodc Phone Number [facility] [address] [place] [address] XR Chest 1 Vw Portable (10/21/2017 1:33 PM) Narrative Performed At EXAMINATION:XR CHEST 1 VW PORTABLE [facility] CLINICAL HISTORY:SHORTNESS OF BREATH COMPARISON:10/20/2017 IMPRESSION: 1.Interstitial [...] 4.Regional skeletal structures are within normal limits. [id number] Procedure Note Interface, Radiology Results Incoming - 10/21/2017 1:38 PM [employer] EXAMINATION: XR CHEST 1 VW PORTABLE CLINICAL [...] Regional skeletal structures are within normal limits. [id number] Performing Organization Address [facility] Phone Number [facility] [address] [place] [address] ECG 12 lead (10/21/2017 1:11 PM) Ventricular rate 96 [facility] MUSE Atrial rate 96 [facility] MI interval 138 [facility] QRSD interval 82 [facility] QT interval 372 [facility] QTC interval 469 [facility] P axis 1 7 [facility] QRS axis 1 3 [facility] T wave axis 45 [facility] MUSE EKG impression Normal sinus rhythm-Minimal voltage criteria [facility] MUSE for LVH, may be normal variant-Nonspecific ST and T wave abnormality- Performing Organization Address City/State/Zipcode Phone Number [facility] MUSE [address] [place] [phone] Salmonella/shigella culture (10/21/2017 9:09 AM) Salmonella/shigella No Aeromonas isolated [facility] DEPARTMENT OF culture isolate Comment: PATHOLOGY AND GENOMIC Specimen Information MEDICINE Specimen Source: Stool Specimen Site: Nonpreserved Specimen Stool - Nonpreserved Performing Organization Address [facility] Centercode Phone Number [facility] DEPARTMENT OF PATHOLOGY AND [address] [place] [address] MEDICINE Anti Xa, unfractionated (10/21/2017 2:53 AM)Only the most recent of2 resultswithin the time period is included. Anti Xa, unfractionated 1.01 (H) 0.30 - 0.70 U/mL [facility] DEPARTMENT OF Comment: PATHOLOGY AND GENOMIC Therapeutic Range:0.30 - 0.70 U/mL MEDICINE [facility] results called to and read back by MIMI KOCH/Tres (name/location) at 10/21/201704:55 (date/time) by CS1_. Specimen Blood Narrative Performed At [facility] added on per Patrizia Rosen/PHARM [facility] DEPARTMENT OF PATHOLOGY AND GENOMIC MEDICINE Performing Organization Address City/[facility]ercode Phone Number [facility] DEPARTMENT OF PATHOLOGY AND [address] [place], [place] [id number] [facility] Urine eosinophils (10/21/2017 1:30 AM) Eosinophils, urine PRESENT (A) [facility] DEPARTMENT OF PATHOLOGY AND GENOMIC MEDICINE Specimen Urine Performing Organization Address City/[facility]/Zipcode Phone Number [facility] DEPARTMENT OF PATHOLOGY AND [address] [place], [place] [id number] [facility] Urea nitrogen, urine, random (10/21/2017 1:30 AM) Urea nitrogen, urine, random 307 mg/dL [facility] DEPARTMENT OF PATHOLOGY AND GENOMIC MEDICINE Specimen Urine Performing Organization Address City/[facility]/Zipcode Phone Number [facility] DEPARTMENT OF PATHOLOGY AND [address] Sodium level, urine, random (10/21/2017 1:30 AM) Sodium, urine, random 91 mEq/L [facility] DEPARTMENT OF PATHOLOGY AND GENOMIC MEDICINE Specimen Urine Performing Organization Address [facility] Cent[facility]ode Phone Number [facility] DEPARTMENT OF PATHOLOGY AND [address] [place] [address] GENOMIC MEDICINE Protein, urine, random (10/21/2017 1:30 AM) Protein, urine random 69 mg/dL [facility] DEPARTMENT OF PATHOLOGY AND GENOMIC MEDICINE Specimen Urine Performing Organization Address [facility] Cent[facility]ode Phone Number [facility] DEPARTMENT OF PATHOLOGY AND [address] [place] [address] Creatinine level, urine, random (10/21/2017 1:30 AM) Creatinine, urine, random 24 mg/dL [facility] DEPARTMENT OF PATHOLOGY AND GENOMIC MEDICINE Specimen Urine Performing Organization Address [facility]ode Phone Number [facility] DEPARTMENT OF PATHOLOGY AND [address] [place] [address] Chloride level, urine, random (10/21/2017 1:30 AM) Chloride, urine, random 69 mEq/L [facility] DEPARTMENT OF PATHOLOGY AND GENOMIC MEDICINE Specimen Urine Performing Organization Address [facility] Centercode Phone Number [facility] DEPARTMENT OF PATHOLOGY AND [address] [place] [address] MEDICINE T4 (10/21/2017) T4 6.8 4.5 - 11.7 ug/dL [facility] DEPARTMENT OF PATHOLOGY AND GENOMIC MEDICINE Specimen Plasma specimen Performing Organization Address [facility] Phone Number [facility] DEPARTMENT OF PATHOLOGY AND [address] [place] [address] [address] [facility] CT Chest External Study (10/20/2017 6:55 PM) Narrative Performed At This exam was not acquired at a [facility] facility and has not been [facility] interpreted by a [facility] Provider.The exam was imported into our imaging system for comparisons purposes. Performing Organization Address [facility] Centercode Phone Number [facility] [address] [place] [phone] XR Chest External Study (10/20/2017 5:10 PM) Narrative Performed At This exam was not acquired at a [facility] facility and has not been [facility] interpreted by a [facility] Provider.The exam was imported into our imaging system for comparisons purposes. Performing Organization Address City/State/Zipcode Phone Number [facility] [address] [place] [address] after 05/03/2017 Insurance Payer Benefit Plan / Group Subscriber ID Type Phone Address MARLOMELINA IZABELLA OPEN ACCESS/NETWORK xxxxxxxxxxx HMO MEDICARE MEDICARE PART A AND B xxxxxxxxxx Medicare [place], [place] Home: [address] [phone] [place] [address]
--- OUTSIDE RECORDS SUMMARY | 2018-05-04 13:29 | XMS REPORT ---
:1955 Author Organization [facility] Address [address] [place] [address] Dr. Willson [address] [place] [id number] Care Team Providers Name Role Phone LILA [...] Value Reference Range Comments CULTURE (BEAKER) (test pfsu=5783) No Salmonella, Shigella or Campylobacter isolated Unable to test for Shiga Toxin 1 due to insufficient growth of specimen.Unable to test for Shiga Toxin 2 due to insufficient growth of specimen.STOOL PATH [id number] 13:49:00 Test Item Value Reference Range Comments PATHOGEN EXAM CHARGED (BEAKER) (test edfn=0230) Done POCT-GLUCOSE [id number] 11:36:00 Test Item Value Reference Range Comments POC-GLUCOSE METER (BEAKER) 106 mg/dL 70-[address] [facility] [address] [facility] (test fxez=5920) [facility] [address] POCT-GLUCOSE [id number] 08:21:00 Test Item Value Reference Range Comments POC-GLUCOSE METER (BEAKER) 110 mg/dL 70-[address] [facility] [address] [facility] (test dhxj=6042) [facility] [address] [id number] 05:17:00 Test Item Value Reference Range Comments PHOSPHORUS (BEAKER) (test jhgl=572) 3.6 mg/dL 2.3-4.7 [id number] 05:17:00 Test Item Value Reference Range Comments MAGNESIUM (BEAKER) (test zxdv=010) 1.6 mg/dL 1.6-2.6 BASIC METABOLIC [id number] 05:17:00 Test Item Value Reference Range Comments SODIUM (BEAKER) (test 136 meq/L 136-145 topd=684) POTASSIUM (BEAKER) (test 4.1 meq/L 3.5-5.1 ncxw=595) CHLORIDE (BEAKER) (test 108 meq/L 98-107 lyhg=940) CO2 (BEAKER) (test 19 meq/L 22-29 ybdg=630) BLOOD UREA NITROGEN 17 mg/dL 7-21 (BEAKER) (test comg=490) CREATININE (BEAKER) (test 0.87 mg/dL 0.57-1.25 exve=927) GLUCOSE RANDOM (BEAKER) 89 mg/dL 70-105 (test ybkm=066) CALCIUM (BEAKER) (test 8.9 mg/dL 8.4-10.2 iakr=541) EGFR (BEAKER) (test 66 mL/min/1.73 sq m ESTIMATED GFR IS NOT bzzv=2922) ACCURATE CREATININE CLEARANCE IN PREDICTING GLOMERULAR FILTRATION RATE. ESTIMATED GFR IS NOT APPLICABLE FOR DIALYSIS PATIENTS. CBC W/PLT COUNT & AUTO [id number] 05:09:00 Test Item Value Reference Range Comments WHITE BLOOD CELL COUNT (BEAKER) (test nfff=074) 9.0 K/ L 4.0-10.0 RED BLOOD CELL COUNT (BEAKER) (test anhp=014) 4.11 M/ L 4.00-5.00 HEMOGLOBIN (BEAKER) (test ldyh=794) 11.8 GM/DL 12.0-15.0 HEMATOCRIT (BEAKER) (test kttm=966) 37.1 % 36.0-45.0 MEAN CORPUSCULAR VOLUME (BEAKER) (test mwxd=420) 90.2 fL 82.0-99.0 MEAN CORPUSCULAR HEMOGLOBIN (BEAKER) (test 28.8 pg 27.0-33.0 zzdh=959) MEAN CORPUSCULAR HEMOGLOBIN CONC (BEAKER) (test 32.0 GM/DL 32.0-36.0 olia=654) RED CELL DISTRIBUTION WIDTH (BEAKER) (test 12.5 % 10.3-14.2 hhnk=813) PLATELET COUNT (BEAKER) (test ekzr=382) 255 K/CU MM 150-430 MEAN PLATELET VOLUME (BEAKER) (test pbge=722) 6.6 fL 6.5-10.5 NUCLEATED RED BLOOD CELLS (BEAKER) (test 0 /100 WBC 0-0 qxyb=487) NEUTROPHILS RELATIVE PERCENT (BEAKER) (test 63 % uwuo=842) LYMPHOCYTES RELATIVE PERCENT (BEAKER) (test 22 % nrpd=187) MONOCYTES RELATIVE PERCENT (BEAKER) (test 10 % ngex=746) EOSINOPHILS RELATIVE PERCENT (BEAKER) (test 4 % ltay=387) BASOPHILS RELATIVE PERCENT (BEAKER) (test 1 % zceu=949) NEUTROPHILS ABSOLUTE COUNT (BEAKER) (test 5.66 K/ L 1.80-8.00 xhrl=055) LYMPHOCYTES ABSOLUTE COUNT (BEAKER) (test 1.98 K/ L 1.48-4.50 kzen=179) MONOCYTES ABSOLUTE COUNT (BEAKER) (test 0.90 K/ L 0.00-1.30 wlun=283) EOSINOPHILS ABSOLUTE COUNT (BEAKER) (test 0.39 K/ L 0.00-0.50 olea=308) BASOPHILS ABSOLUTE COUNT (BEAKER) (test 0.07 K/ L 0.00-0.20 dqoa=175) 0.00PROTHROMBIN [id number] 04:57:00 Test Item Value Reference Range Comments PROTIME (BEAKER) (test ditz=145) 15.7 seconds 11.7-14.7 INR (BEAKER) (test ulaq=154) 1.3 <=5.9 RECOMMENDED COUMADIN/WARFARIN INR THERAPY RANGESSTANDARD DOSE: 2.0 - 3.0 Includes: PROPHYLAXIS forvenous thrombosis, systemic embolization; TREATMENT for venous thrombosis and/or pulmonary embolus.HIGH RISK: Target INR is 2.5-3.5 for patients with mechanical heart valves.While on warfarin.POCT-GLUCOSE [id number] 20:59:00 Test Item Value Reference Range Comments POC-GLUCOSE METER (BEAKER) 100 mg/dL 70-[address] [facility] [address] [facility] (test unpd=6903) [facility] [address] BASIC METABOLIC [id number] 18:30:00 Test Item Value Reference Range Comments SODIUM (BEAKER) (test 137 meq/L 136-145 seft=600) POTASSIUM (BEAKER) (test 4.1 meq/L 3.5-5.1 mygk=591) CHLORIDE (BEAKER) (test 106 meq/L 98-107 ifxb=888) CO2 (BEAKER) (test 25 meq/L 22-29 lkxw=637) BLOOD UREA NITROGEN 18 mg/dL 7-21 (BEAKER) (test kaft=205) CREATININE (BEAKER) (test 0.98 mg/dL 0.57-1.25 wqfa=632) GLUCOSE RANDOM (BEAKER) 157 mg/dL 70-105 (test vrhz=056) CALCIUM (BEAKER) (test 9.3 mg/dL 8.4-10.2 jehh=237) EGFR (BEAKER) (test 58 mL/min/1.73 sq m ESTIMATED GFR IS NOT hqbz=1310) ACCURATE CREATININE CLEARANCE IN PREDICTING GLOMERULAR FILTRATION RATE. ESTIMATED GFR IS NOT APPLICABLE FOR DIALYSIS PATIENTS. POCT-GLUCOSE [id number] 15:40:00 Test Item Value Reference Range Comments POC-GLUCOSE METER (BEAKER) 95 mg/dL 70-110 TESTED AT [address] (test mwdl=0393) [place] [address] POCT-GLUCOSE [id number] 11:47:00 Test Item Value Reference Range Comments POC-GLUCOSE METER (BEAKER) 101 mg/dL 70-110 TESTED AT [address] (test bvrq=2075) [place] [address] POCT-GLUCOSE [id number] 07:32:00 Test Item Value Reference Range Comments POC-GLUCOSE METER (BEAKER) 88 mg/dL 70-110 TESTED AT [address] (test utfi=6419) [place] [address] CBC W/PLT COUNT & AUTO [id number] 07:32:00 Test Item Value Reference Range Comments WHITE BLOOD CELL COUNT (BEAKER) (test cfgs=004) 9.1 K/ L 4.0-10.0 RED BLOOD CELL COUNT (BEAKER) (test vwzt=050) 4.02 M/ L 4.00-5.00 HEMOGLOBIN (BEAKER) (test gpki=124) 12.2 GM/DL 12.0-15.0 HEMATOCRIT (BEAKER) (test gnjz=004) 36.3 % 36.0-45.0 MEAN CORPUSCULAR VOLUME (BEAKER) (test lenx=919) 90.3 fL 82.0-99.0 MEAN CORPUSCULAR HEMOGLOBIN (BEAKER) (test 30.3 pg 27.0-33.0 korr=293) MEAN CORPUSCULAR HEMOGLOBIN CONC (BEAKER) (test 33.6 GM/DL 32.0-36.0 ftuj=610) RED CELL DISTRIBUTION WIDTH (BEAKER) (test 12.5 % 10.3-14.2 hpiz=743) PLATELET COUNT (BEAKER) (test qfhx=016) 265 K/CU MM 150-430 MEAN PLATELET VOLUME (BEAKER) (test mqlq=470) 6.7 fL 6.5-10.5 NUCLEATED RED BLOOD CELLS (BEAKER) (test 0 /100 WBC 0-0 nadb=320) NEUTROPHILS RELATIVE PERCENT (BEAKER) (test 65 % hhrn=105) LYMPHOCYTES RELATIVE PERCENT (BEAKER) (test 21 % sigm=868) MONOCYTES RELATIVE PERCENT (BEAKER) (test 9 % rdhm=004) EOSINOPHILS RELATIVE PERCENT (BEAKER) (test 4 % besw=634) BASOPHILS RELATIVE PERCENT (BEAKER) (test 1 % ixua=206) NEUTROPHILS ABSOLUTE COUNT (BEAKER) (test 5.89 K/ L 1.80-8.00 clxw=206) LYMPHOCYTES ABSOLUTE COUNT (BEAKER) (test 1.94 K/ L 1.48-4.50 jgxo=308) MONOCYTES ABSOLUTE COUNT (BEAKER) (test 0.84 K/ L 0.00-1.30 hojf=225) EOSINOPHILS ABSOLUTE COUNT (BEAKER) (test 0.33 K/ L 0.00-0.50 jgdg=583) BASOPHILS ABSOLUTE COUNT (BEAKER) (test 0.08 K/ L 0.00-0.20 ijbp=626) [facility] [id number] 06:23:00 Test Item Value Reference Range Comments SODIUM (BEAKER) (test 137 meq/L 136-145 lppb=051) POTASSIUM (BEAKER) (test 4.0 meq/L 3.5-5.1 uqri=586) CHLORIDE (BEAKER) (test 107 meq/L 98-107 ybes=645) CO2 (BEAKER) (test 19 meq/L 22-29 uvtd=392) BLOOD UREA NITROGEN 17 mg/dL 7-21 (BEAKER) (test utnw=553) CREATININE (BEAKER) (test 0.84 mg/dL 0.57-1.25 rsxx=016) GLUCOSE RANDOM (BEAKER) 88 mg/dL 70-105 (test xakz=219) CALCIUM (BEAKER) (test 9.2 mg/dL 8.4-10.2 hmds=755) EGFR (BEAKER) (test 69 mL/min/1.73 sq m ESTIMATED GFR IS NOT smvv=2468) ACCURATE CREATININE CLEARANCE IN PREDICTING GLOMERULAR FILTRATION RATE. ESTIMATED GFR IS NOT APPLICABLE FOR DIALYSIS PATIENTS. [id number] 06:23:00 Test Item Value Reference Range Comments MAGNESIUM (BEAKER) (test kamx=324) 1.6 mg/dL 1.6-2.6 [id number] 06:23:00 Test Item Value Reference Range Comments PHOSPHORUS (BEAKER) (test esfa=780) 3.6 mg/dL 2.3-4.7 PROTHROMBIN [id number] 06:15:00 Test Item Value Reference Range Comments PROTIME (BEAKER) (test oexa=758) 14.9 seconds 11.7-14.7 INR (BEAKER) (test onuy=148) 1.2 <=5.9 RECOMMENDED COUMADIN/WARFARIN INR THERAPY RANGESSTANDARD DOSE: 2.0 - 3.0 Includes: PROPHYLAXIS forvenous thrombosis, systemic embolization; TREATMENT for venous thrombosis and/or pulmonary embolus.HIGH RISK: Target INR is 2.5-3.5 for patients with mechanical heart valves.While on warfarin.POCT-GLUCOSE [id number] 20:47:00 Test Item Value Reference Range Comments POC-GLUCOSE METER (BEAKER) 108 mg/dL 70-110 TESTED AT [address] (test jyte=5846) [facility] [address] BASIC METABOLIC [id number] 18:12:00 Test Item Value Reference Range Comments SODIUM (BEAKER) (test 136 meq/L 136-145 bmch=433) POTASSIUM (BEAKER) (test 4.2 meq/L 3.5-5.1 cirk=593) CHLORIDE (BEAKER) (test 105 meq/L 98-107 lkug=094) CO2 (BEAKER) (test 23 meq/L 22-29 ftdn=704) BLOOD UREA NITROGEN 22 mg/dL 7-21 (BEAKER) (test zvnu=967) CREATININE (BEAKER) (test 0.98 mg/dL 0.57-1.25 gtud=138) GLUCOSE RANDOM (BEAKER) 168 mg/dL 70-105 (test selp=218) CALCIUM (BEAKER) (test 9.4 mg/dL 8.4-10.2 tjvc=660) EGFR (BEAKER) (test 58 mL/min/1.73 sq m ESTIMATED GFR IS NOT zcdc=3228) ACCURATE CREATININE CLEARANCE IN PREDICTING GLOMERULAR FILTRATION RATE. ESTIMATED GFR IS NOT APPLICABLE FOR DIALYSIS PATIENTS. POCT-GLUCOSE [id number] 17:53:00 Test Item Value Reference Range Comments POC-GLUCOSE METER (BEAKER) 165 mg/dL 70-110 TESTED AT [address] (test qqxx=8862) [place] [address] PROTHROMBIN [id number] 13:53:00 Test Item Value Reference Range Comments PROTIME (BEAKER) (test xivk=600) 14.7 seconds 11.7-14.7 INR (BEAKER) (test oumm=988) 1.2 <=5.9 RECOMMENDED COUMADIN/WARFARIN INR THERAPY RANGESSTANDARD DOSE: 2.0 - 3.0 Includes: PROPHYLAXIS forvenous thrombosis, systemic embolization; TREATMENT for venous thrombosis and/or pulmonary embolus.HIGH RISK: Target INR is 2.5-3.5 for patients with mechanical heart valves.POCT-GLUCOSE [id number] 11:49:00 Test Item Value Reference Range Comments POC-GLUCOSE METER (BEAKER) 120 mg/dL 70-110 TESTED AT [address] (test pzdt=6827) [place] [address] POCT-GLUCOSE [id number] 07:58:00 Test Item Value Reference Range Comments POC-GLUCOSE METER (BEAKER) 94 mg/dL 70-110 TESTED AT [address] (test eanc=1304) [place] [address] [id number] 07:23:00 Test Item Value Reference Range Comments PHOSPHORUS (BEAKER) (test ctch=054) 3.6 mg/dL 2.3-4.7 [id number] 07:23:00 Test Item Value Reference Range Comments MAGNESIUM (BEAKER) (test cesl=716) 1.8 mg/dL 1.6-2.6 BASIC METABOLIC [id number] 07:23:00 Test Item Value Reference Range Comments SODIUM (BEAKER) (test 136 meq/L 136-145 hkzx=887) POTASSIUM (BEAKER) (test 3.9 meq/L 3.5-5.1 dsdl=826) CHLORIDE (BEAKER) (test 106 meq/L 98-107 vtbn=569) CO2 (BEAKER) (test 19 meq/L 22-29 teei=373) BLOOD UREA NITROGEN 19 mg/dL 7-21 (BEAKER) (test ufzd=907) CREATININE (BEAKER) (test 0.91 mg/dL 0.57-1.25 yjmm=424) GLUCOSE RANDOM (BEAKER) 84 mg/dL 70-105 (test rvoz=623) CALCIUM (BEAKER) (test 9.6 mg/dL 8.4-10.2 xyvy=684) EGFR (BEAKER) (test 63 mL/min/1.73 sq m ESTIMATED GFR IS NOT nlgc=0206) ACCURATE CREATININE CLEARANCE IN PREDICTING GLOMERULAR FILTRATION RATE. ESTIMATED GFR IS NOT APPLICABLE FOR DIALYSIS PATIENTS. CBC W/PLT COUNT & AUTO [id number] 07:15:00 Test Item Value Reference Range Comments WHITE BLOOD CELL COUNT (BEAKER) (test ctqh=615) 8.7 K/ L 4.0-10.0 RED BLOOD CELL COUNT (BEAKER) (test tgsp=289) 4.25 M/ L 4.00-5.00 HEMOGLOBIN (BEAKER) (test ihcr=625) 12.5 GM/DL 12.0-15.0 HEMATOCRIT (BEAKER) (test ifci=869) 38.6 % 36.0-45.0 MEAN CORPUSCULAR VOLUME (BEAKER) (test dvjx=597) 90.9 fL 82.0-99.0 MEAN CORPUSCULAR HEMOGLOBIN (BEAKER) (test 29.5 pg 27.0-33.0 wkmh=468) MEAN CORPUSCULAR HEMOGLOBIN CONC (BEAKER) (test 32.4 GM/DL 32.0-36.0 rbwo=690) RED CELL DISTRIBUTION WIDTH (BEAKER) (test 12.5 % 10.3-14.2 rzlm=418) PLATELET COUNT (BEAKER) (test lzsx=407) 275 K/CU MM 150-430 MEAN PLATELET VOLUME (BEAKER) (test rolq=859) 6.7 fL 6.5-10.5 NUCLEATED RED BLOOD CELLS (BEAKER) (test 0 /100 WBC 0-0 tpqj=435) NEUTROPHILS RELATIVE PERCENT (BEAKER) (test 63 % fnpi=323) LYMPHOCYTES RELATIVE PERCENT (BEAKER) (test 24 % lmuc=607) MONOCYTES RELATIVE PERCENT (BEAKER) (test 8 % lyma=003) EOSINOPHILS RELATIVE PERCENT (BEAKER) (test 5 % cyib=009) BASOPHILS RELATIVE PERCENT (BEAKER) (test 1 % whyq=707) NEUTROPHILS ABSOLUTE COUNT (BEAKER) (test 5.47 K/ L 1.80-8.00 aeqc=529) LYMPHOCYTES ABSOLUTE COUNT (BEAKER) (test 2.05 K/ L 1.48-4.50 vcaq=874) MONOCYTES ABSOLUTE COUNT (BEAKER) (test 0.73 K/ L 0.00-1.30 puht=918) EOSINOPHILS ABSOLUTE COUNT (BEAKER) (test 0.40 K/ L 0.00-0.50 xfwd=127) BASOPHILS ABSOLUTE COUNT (BEAKER) (test 0.07 K/ L 0.00-0.20 pkpw=472) 0.00POCT-GLUCOSE [id number] 20:44:00 Test Item Value Reference Range Comments POC-GLUCOSE METER (BEAKER) 164 mg/dL 70-[address] [facility] [address] [facility] (test xksb=8558) [facility] [address] BASIC METABOLIC [id number] 19:53:00 Test Item Value Reference Range Comments SODIUM (BEAKER) (test 137 meq/L 136-145 wiox=618) POTASSIUM (BEAKER) (test 4.1 meq/L 3.5-5.1 lndf=160) CHLORIDE (BEAKER) (test 103 meq/L 98-107 redj=451) CO2 (BEAKER) (test 23 meq/L 22-29 glye=243) BLOOD UREA NITROGEN 20 mg/dL 7-21 (BEAKER) (test hmjw=430) CREATININE (BEAKER) (test 1.15 mg/dL 0.57-1.25 cbjt=983) GLUCOSE RANDOM (BEAKER) 157 mg/dL 70-105 (test ytan=818) CALCIUM (BEAKER) (test 9.8 mg/dL 8.4-10.2 sslm=007) EGFR (BEAKER) (test 48 mL/min/1.73 sq m ESTIMATED GFR IS NOT owmb=6930) ACCURATE CREATININE CLEARANCE IN PREDICTING GLOMERULAR FILTRATION RATE. ESTIMATED GFR IS NOT APPLICABLE FOR DIALYSIS PATIENTS. POCT-GLUCOSE [id number] 17:25:00 Test Item Value Reference Range Comments POC-GLUCOSE METER (BEAKER) 97 mg/dL 70-110 TESTED AT [address] (test buke=1771) [place] [address] CLOSTRIDIUM DIFFICILE TOXIN [id number] 15:24:00 Test Item Value Reference Range Comments CLOSTRIDIUM DIFFICILE TOXIN, PCR ([employer]) (test Not Detected Not Detected wvoy=1303) This qualitative real-time polymerase chain reaction assay [...] of a positive result is not recommended.POCT-GLUCOSE [id number] 12:30:00 Test Item Value Reference Range Comments POC-GLUCOSE METER (BEAKER) 110 mg/dL 70-110 TESTED AT [address] (test clez=2789) [place] [address] POCT-GLUCOSE [id number] 07:56:00 Test Item Value Reference Range Comments POC-GLUCOSE METER (BEAKER) 94 mg/dL 70-110 TESTED AT [address] (test nbhx=3646) [place] [address] HEMOGLOBIN [id number] 07:48:00 Test Item Value Reference Range Comments HEMOGLOBIN A1C (Ciel MedicalAKER) (test fucq=448) 5.4 % 4.3-6.1 CBC W/PLT COUNT & AUTO [id number] 06:42:00 Test Item Value Reference Range Comments WHITE BLOOD CELL COUNT ([employer]) (test kdxo=670) 8.0 K/ L 4.0-10.0 RED BLOOD CELL COUNT (BEAKER) (test yorl=934) 4.65 M/ L 4.00-5.00 HEMOGLOBIN (BEAKER) (test poks=782) 13.6 GM/DL 12.0-15.0 HEMATOCRIT (BEAKER) (test tnzr=734) 41.6 % 36.0-45.0 MEAN CORPUSCULAR VOLUME (BEAKER) (test ijnu=350) 89.3 fL 82.0-99.0 MEAN CORPUSCULAR HEMOGLOBIN (BEAKER) (test 29.2 pg 27.0-33.0 tvhq=284) MEAN CORPUSCULAR HEMOGLOBIN CONC (BEAKER) (test 32.7 GM/DL 32.0-36.0 gwnk=132) RED CELL DISTRIBUTION WIDTH (BEAKER) (test 13.6 % 10.3-14.2 hqaz=770) PLATELET COUNT (BEAKER) (test rvuu=569) 247 K/CU MM 150-430 MEAN PLATELET VOLUME (BEAKER) (test kyzd=441) 6.9 fL 6.5-10.5 NUCLEATED RED BLOOD CELLS (BEAKER) (test 0 /100 WBC 0-0 jabj=719) NEUTROPHILS RELATIVE PERCENT (BEAKER) (test 68 % ponx=791) LYMPHOCYTES RELATIVE PERCENT (BEAKER) (test 18 % lvrl=294) MONOCYTES RELATIVE PERCENT (BEAKER) (test 10 % frrw=149) EOSINOPHILS RELATIVE PERCENT (BEAKER) (test 3 % xgei=520) BASOPHILS RELATIVE PERCENT (BEAKER) (test 1 % idcm=476) NEUTROPHILS ABSOLUTE COUNT (BEAKER) (test 5.42 K/ L 1.80-8.00 nyir=067) LYMPHOCYTES ABSOLUTE COUNT (BEAKER) (test 1.47 K/ L 1.48-4.50 uryl=822) MONOCYTES ABSOLUTE COUNT (BEAKER) (test 0.76 K/ L 0.00-1.30 mzhe=382) EOSINOPHILS ABSOLUTE COUNT (BEAKER) (test 0.27 K/ L 0.00-0.50 vugy=827) BASOPHILS ABSOLUTE COUNT (BEAKER) (test 0.06 K/ L 0.00-0.20 divo=248) [id number] 06:06:00 Test Item Value Reference Range Comments PHOSPHORUS (BEAKER) (test eaft=265) 3.7 mg/dL 2.3-4.7 [id number] 06:06:00 Test Item Value Reference Range Comments MAGNESIUM (BEAKER) (test qjga=872) 1.4 mg/dL 1.6-2.6 BASIC METABOLIC [id number] 06:06:00 Test Item Value Reference Range Comments SODIUM (BEAKER) (test 138 meq/L 136-145 wwpc=999) POTASSIUM (BEAKER) (test 3.3 meq/L 3.5-5.1 dfug=741) CHLORIDE (BEAKER) (test 103 meq/L 98-107 pghs=010) CO2 (BEAKER) (test 22 meq/L 22-29 xyxc=648) BLOOD UREA NITROGEN 22 mg/dL 7-21 (BEAKER) (test owjl=432) CREATININE (BEAKER) (test 1.01 mg/dL 0.57-1.25 ctxo=283) GLUCOSE RANDOM (BEAKER) 91 mg/dL 70-105 (test zuxf=733) CALCIUM (BEAKER) (test 9.6 mg/dL 8.4-10.2 ryin=501) EGFR (BEAKER) (test 56 mL/min/1.73 sq m ESTIMATED GFR IS NOT fgzd=2860) ACCURATE CREATININE CLEARANCE IN PREDICTING GLOMERULAR FILTRATION RATE. ESTIMATED GFR IS NOT APPLICABLE FOR DIALYSIS PATIENTS. POCT-GLUCOSE [id number] 21:04:00 Test Item Value Reference Range Comments POC-GLUCOSE METER (BEAKER) 100 mg/dL 70-[address] [facility] [address] [facility] (test jfif=3192) [facility] [address] BASIC METABOLIC [id number] 20:03:00 Test Item Value Reference Range Comments SODIUM (BEAKER) (test 138 meq/L 136-145 cxtu=310) POTASSIUM (BEAKER) (test 3.8 meq/L 3.5-5.1 wqzo=101) CHLORIDE (BEAKER) (test 102 meq/L 98-107 ltpf=235) CO2 (BEAKER) (test 20 meq/L 22-29 jcqo=943) BLOOD UREA NITROGEN 26 mg/dL 7-21 (BEAKER) (test xdux=931) CREATININE (BEAKER) (test 1.16 mg/dL 0.57-1.25 xsqa=532) GLUCOSE RANDOM (BEAKER) 99 mg/dL 70-105 (test gpiv=010) CALCIUM (BEAKER) (test 10.0 mg/dL 8.4-10.2 mnoi=902) EGFR (BEAKER) (test 48 mL/min/1.73 sq m ESTIMATED GFR IS NOT nrqj=9436) ACCURATE CREATININE CLEARANCE IN PREDICTING GLOMERULAR FILTRATION RATE. ESTIMATED GFR IS NOT APPLICABLE FOR DIALYSIS PATIENTS. POCT-GLUCOSE [id number] 15:45:00 Test Item Value Reference Range Comments POC-GLUCOSE METER (BEAKER) 130 mg/dL 70-110 TESTED AT [place] [id number] [facility] (test gskx=9676) [facility] [address] POCT-GLUCOSE [id number] 11:20:00 Test Item Value Reference Range Comments POC-GLUCOSE METER (BEAKER) 102 mg/dL 70-110 TESTED AT [address] (test bfhk=5266) [place] [id number] HEMOGLOBIN [id number] 08:50:00 Test Item Value Reference Range Comments HEMOGLOBIN A1C (BEAKER) (test kpsq=818) 5.6 % 4.3-6.1 [id number] 05:44:00 Test Item Value Reference Range Comments PHOSPHORUS (BEAKER) (test yazu=336) 3.4 mg/dL 2.3-4.7 [id number] 05:44:00 Test Item Value Reference Range Comments MAGNESIUM (BEAKER) (test pvor=269) 1.7 mg/dL 1.6-2.6 BASIC METABOLIC [id number] 05:44:00 Test Item Value Reference Range Comments SODIUM (BEAKER) (test 138 meq/L 136-145 zfys=516) POTASSIUM (BEAKER) (test 3.9 meq/L 3.5-5.1 pasi=449) CHLORIDE (BEAKER) (test 104 meq/L 98-107 xusl=708) CO2 (BEAKER) (test 20 meq/L 22-29 zqqu=763) BLOOD UREA NITROGEN 27 mg/dL 7-21 (BEAKER) (test umne=992) CREATININE (BEAKER) (test 1.19 mg/dL 0.57-1.25 qygn=623) GLUCOSE RANDOM (BEAKER) 87 mg/dL 70-105 (test pehw=578) CALCIUM (BEAKER) (test 9.9 mg/dL 8.4-10.2 mxec=732) EGFR (BEAKER) (test 46 mL/min/1.73 sq m ESTIMATED GFR IS NOT arfn=6088) ACCURATE CREATININE CLEARANCE IN PREDICTING GLOMERULAR FILTRATION RATE. ESTIMATED GFR IS NOT APPLICABLE FOR DIALYSIS PATIENTS. CBC W/PLT COUNT & AUTO [id number] 05:39:00 Test Item Value Reference Range Comments WHITE BLOOD CELL COUNT (BEAKER) (test zwnq=206) 10.3 K/ L 4.0-10.0 RED BLOOD CELL COUNT (BEAKER) (test zlhw=736) 4.36 M/ L 4.00-5.00 HEMOGLOBIN (BEAKER) (test jnfs=268) 12.9 GM/DL 12.0-15.0 HEMATOCRIT (BEAKER) (test eynu=100) 39.0 % 36.0-45.0 MEAN CORPUSCULAR VOLUME (BEAKER) (test ixuy=086) 89.3 fL 82.0-99.0 MEAN CORPUSCULAR HEMOGLOBIN (BEAKER) (test 29.6 pg 27.0-33.0 moop=480) MEAN CORPUSCULAR HEMOGLOBIN CONC (BEAKER) (test 33.2 GM/DL 32.0-36.0 qmom=926) RED CELL DISTRIBUTION WIDTH (BEAKER) (test 13.4 % 10.3-14.2 ectz=714) PLATELET COUNT (BEAKER) (test jbmh=081) 257 K/CU MM 150-430 MEAN PLATELET VOLUME (BEAKER) (test pqzg=706) 6.8 fL 6.5-10.5 NUCLEATED RED BLOOD CELLS (BEAKER) (test 0 /100 WBC 0-0 phoy=448) NEUTROPHILS RELATIVE PERCENT (BEAKER) (test 73 % zwit=886) LYMPHOCYTES RELATIVE PERCENT (BEAKER) (test 15 % bbht=428) MONOCYTES RELATIVE PERCENT (BEAKER) (test 9 % jvvl=107) EOSINOPHILS RELATIVE PERCENT (BEAKER) (test 3 % dwpx=842) BASOPHILS RELATIVE PERCENT (BEAKER) (test 1 % asss=526) NEUTROPHILS ABSOLUTE COUNT (BEAKER) (test 7.48 K/ L 1.80-8.00 gpoc=683) LYMPHOCYTES ABSOLUTE COUNT (BEAKER) (test 1.49 K/ L 1.48-4.50 unxi=443) MONOCYTES ABSOLUTE COUNT (BEAKER) (test 0.94 K/ L 0.00-1.30 iswi=135) EOSINOPHILS ABSOLUTE COUNT (BEAKER) (test 0.30 K/ L 0.00-0.50 xxvf=526) BASOPHILS ABSOLUTE COUNT (BEAKER) (test 0.07 K/ L 0.00-0.20 vtyh=697) 0.00POCT-GLUCOSE [id number] 23:15:00 Test Item Value Reference Range Comments POC-GLUCOSE METER (BEAKER) 83 mg/dL 70-110 TESTED AT [address] (test rqeg=6784) [facility] [id number] POCT-GLUCOSE [id number] 17:19:00 Test Item Value Reference Range Comments POC-GLUCOSE METER (BEAKER) 82 mg/dL 70-110 TESTED AT [address] (test lvld=1030) [facility] [address] POCT-GLUCOSE [id number] 12:57:00 Test Item Value Reference Range Comments POC-GLUCOSE METER (BEAKER) 124 mg/dL 70-110 TESTED AT [address] (test abwz=5512) [place] [id number] HEMOGLOBIN [id number] 10:12:00 Test Item Value Reference Range Comments HEMOGLOBIN A1C (BEAKER) (test vhsr=770) 5.6 % 4.3-6.1 CBC W/PLT COUNT & AUTO [id number] 06:14:00 Test Item Value Reference Range Comments WHITE BLOOD CELL COUNT (BEAKER) (test fkbk=967) 12.1 K/ L 4.0-10.0 RED BLOOD CELL COUNT (BEAKER) (test yibz=129) 4.29 M/ L 4.00-5.00 HEMOGLOBIN (BEAKER) (test dpjm=968) 12.5 GM/DL 12.0-15.0 HEMATOCRIT (BEAKER) (test hwfw=376) 38.8 % 36.0-45.0 MEAN CORPUSCULAR VOLUME (BEAKER) (test ishb=177) 90.4 fL 82.0-99.0 MEAN CORPUSCULAR HEMOGLOBIN (BEAKER) (test 29.2 pg 27.0-33.0 qqsx=874) MEAN CORPUSCULAR HEMOGLOBIN CONC (BEAKER) (test 32.3 GM/DL 32.0-36.0 jnnq=251) RED CELL DISTRIBUTION WIDTH (BEAKER) (test 12.5 % 10.3-14.2 ropl=255) PLATELET COUNT (BEAKER) (test jlfp=311) 263 K/CU MM 150-430 MEAN PLATELET VOLUME (BEAKER) (test vmeu=336) 7.3 fL 6.5-10.5 NUCLEATED RED BLOOD CELLS (BEAKER) (test 0 /100 WBC 0-0 qbyn=485) NEUTROPHILS RELATIVE PERCENT (BEAKER) (test 73 % xcpg=649) LYMPHOCYTES RELATIVE PERCENT (BEAKER) (test 15 % ezaf=373) MONOCYTES RELATIVE PERCENT (BEAKER) (test 10 % aoeg=313) EOSINOPHILS RELATIVE PERCENT (BEAKER) (test 2 % hmes=589) BASOPHILS RELATIVE PERCENT (BEAKER) (test 0 % zyfg=638) NEUTROPHILS ABSOLUTE COUNT (BEAKER) (test 8.87 K/ L 1.80-8.00 bsrt=199) LYMPHOCYTES ABSOLUTE COUNT (BEAKER) (test 1.79 K/ L 1.48-4.50 qkio=622) MONOCYTES ABSOLUTE COUNT (BEAKER) (test 1.18 K/ L 0.00-1.30 gyqz=258) EOSINOPHILS ABSOLUTE COUNT (BEAKER) (test 0.22 K/ L 0.00-0.50 ligr=933) BASOPHILS ABSOLUTE COUNT (BEAKER) (test 0.04 K/ L 0.00-0.20 gofp=566) [id number] 05:43:00 Test Item Value Reference Range Comments PHOSPHORUS (BEAKER) (test kedh=537) 4.1 mg/dL 2.3-4.7 [id number] 05:43:00 Test Item Value Reference Range Comments MAGNESIUM (BEAKER) (test htxm=290) 1.9 mg/dL 1.6-2.6 BASIC METABOLIC [id number] 05:43:00 Test Item Value Reference Range Comments SODIUM (BEAKER) (test 137 meq/L 136-145 qrst=983) POTASSIUM (BEAKER) (test 3.8 meq/L 3.5-5.1 meje=695) CHLORIDE (BEAKER) (test 102 meq/L 98-107 klcp=056) CO2 (BEAKER) (test 24 meq/L 22-29 scno=673) BLOOD UREA NITROGEN 29 mg/dL 7-21 (BEAKER) (test jmak=258) CREATININE (BEAKER) (test 1.28 mg/dL 0.57-1.25 rscx=215) GLUCOSE RANDOM (BEAKER) 100 mg/dL 70-105 (test iiwx=131) CALCIUM (BEAKER) (test 9.9 mg/dL 8.4-10.2 fbcu=852) EGFR (BEAKER) (test 43 mL/min/1.73 sq m ESTIMATED GFR IS NOT slsf=2647) ACCURATE CREATININE CLEARANCE IN PREDICTING GLOMERULAR FILTRATION RATE. ESTIMATED GFR IS NOT APPLICABLE FOR DIALYSIS PATIENTS. POCT-GLUCOSE [id number] 05:12:00 Test Item Value Reference Range Comments POC-GLUCOSE METER (BEAKER) 89 mg/dL 70-[address] [facility] [address] [facility] (test vzmv=5903) [facility] [address] POCT-GLUCOSE [id number] 00:07:00 Test Item Value Reference Range Comments POC-GLUCOSE METER (BEAKER) 92 mg/dL 70-110 TESTED AT [address] (test imgy=2206) [facility] [id number] 23:51:00 Test Item Value Reference Range Comments PROTIME (BEAKER) (test ynsu=819) 15.5 seconds 11.7-14.7 INR (BEAKER) (test klny=228) 1.2 <=5.9 PARTIAL THROMBOPLASTIN TIME (BEAKER) (test 36.5 seconds 22.5-36.0 zgwp=441) RECOMMENDED COUMADIN/WARFARIN INR THERAPY RANGESSTANDARD DOSE: 2.0 - 3.0 Includes: PROPHYLAXIS forvenous thrombosis, systemic embolization; TREATMENT for venous thrombosis and/or pulmonary embolus.HIGH RISK: Target INR is 2.5-3.5 for patients with mechanical heart valves.[id number] 23:49:00 Test Item Value Reference Range Comments MAGNESIUM (BEAKER) (test 1.9 mg/dL 1.6-2.6 Specimen slightly hemolyzed zzsx=670) [id number] 23:49:00 Test Item Value Reference Range Comments PHOSPHORUS (BEAKER) (test 3.4 mg/dL 2.3-4.7 Specimen slightly hemolyzed izsa=073) BASIC METABOLIC [id number] 23:49:00 Test Item Value Reference Range Comments SODIUM (BEAKER) (test 136 meq/L 136-145 vfrs=991) POTASSIUM (BEAKER) (test 4.1 meq/L 3.5-5.1 Specimen slightly mymc=139) hemolyzed CHLORIDE (BEAKER) (test 100 meq/L 98-107 ogqt=368) CO2 (BEAKER) (test 21 meq/L 22-29 inrw=103) BLOOD UREA NITROGEN 28 mg/dL 7-21 (BEAKER) (test egjp=614) CREATININE (BEAKER) (test 1.31 mg/dL 0.57-1.25 Specimen slightly yvvs=048) hemolyzed GLUCOSE RANDOM (BEAKER) 98 mg/dL 70-105 (test vujy=484) CALCIUM (BEAKER) (test 9.9 mg/dL 8.4-10.2 isyn=976) EGFR (BEAKER) (test 41 mL/min/1.73 sq m ESTIMATED GFR IS NOT kvkz=5671) ACCURATE CREATININE CLEARANCE IN PREDICTING GLOMERULAR FILTRATION RATE. ESTIMATED GFR IS NOT APPLICABLE FOR DIALYSIS PATIENTS. CBC W/PLT COUNT & AUTO [id number] 23:38:00 Test Item Value Reference Range Comments WHITE BLOOD CELL COUNT (BEAKER) (test efdi=075) 13.2 K/ L 4.0-10.0 RED BLOOD CELL COUNT (BEAKER) (test wxkc=796) 4.26 M/ L 4.00-5.00 HEMOGLOBIN (BEAKER) (test votq=960) 13.3 GM/DL 12.0-15.0 HEMATOCRIT (BEAKER) (test lmsh=441) 38.5 % 36.0-45.0 MEAN CORPUSCULAR VOLUME (BEAKER) (test hgtz=834) 90.4 fL 82.0-99.0 MEAN CORPUSCULAR HEMOGLOBIN (BEAKER) (test 31.2 pg 27.0-33.0 lkul=978) MEAN CORPUSCULAR HEMOGLOBIN CONC (BEAKER) (test 34.5 GM/DL 32.0-36.0 quux=568) RED CELL DISTRIBUTION WIDTH (BEAKER) (test 12.6 % 10.3-14.2 bblo=904) PLATELET COUNT (BEAKER) (test xymr=321) 244 K/CU MM 150-430 MEAN PLATELET VOLUME (BEAKER) (test tpuj=812) 7.6 fL 6.5-10.5 NUCLEATED RED BLOOD CELLS (BEAKER) (test 0 /100 WBC 0-0 radf=479) NEUTROPHILS RELATIVE PERCENT (BEAKER) (test 78 % pxpo=354) LYMPHOCYTES RELATIVE PERCENT (BEAKER) (test 11 % sjfl=698) MONOCYTES RELATIVE PERCENT (BEAKER) (test 9 % aigs=509) EOSINOPHILS RELATIVE PERCENT (BEAKER) (test 1 % enee=630) BASOPHILS RELATIVE PERCENT (BEAKER) (test 0 % zgqv=949) NEUTROPHILS ABSOLUTE COUNT (BEAKER) (test 10.40 K/ L 1.80-8.00 csxn=729) LYMPHOCYTES ABSOLUTE COUNT (BEAKER) (test 1.49 K/ L 1.48-4.50 jpvv=096) MONOCYTES ABSOLUTE COUNT (BEAKER) (test 1.18 K/ L 0.00-1.30 tnxm=325) EOSINOPHILS ABSOLUTE COUNT (BEAKER) (test 0.12 K/ L 0.00-0.50 gotf=866) BASOPHILS ABSOLUTE COUNT (BEAKER) (test 0.06 K/ L 0.00-0.20 vmsq=087) 0.00URINALYSIS W/ [id number] 22:57:00 Test Item Value Reference Range Comments COLOR (BEAKER) (test aiep=693) Yellow CLARITY (BEAKER) (test leer=182) Cloudy SPECIFIC GRAVITY UA (BEAKER) (test khuk=880) 1.013 1.001-1.035 PH UA (BEAKER) (test zrlr=035) 5.5 5.0-8.0 PROTEIN UA (BEAKER) (test smkf=671) 30 mg/dL Negative GLUCOSE UA (BEAKER) (test vkfy=864) Negative Negative KETONES UA (BEAKER) (test mpyj=782) Negative Negative BILIRUBIN UA (BEAKER) (test sils=931) Negative Negative BLOOD UA (BEAKER) (test mflp=603) Moderate Negative NITRITE UA (BEAKER) (test plbl=770) Negative Negative LEUKOCYTE ESTERASE UA (BEAKER) (test jzmp=039) Large Negative UROBILINOGEN UA (BEAKER) (test fsvs=655) 2.0 mg/dL 0.2-1.0 RBC UA (BEAKER) (test ilif=739) 34 /HPF WBC UA (BEAKER) (test bvqs=389) > /HPF MUCUS (BEAKER) (test qcvq=5959) Rare SOURCE(BEAKER) (test juzl=6510) Urine, Perez
[2018-05-04 14:52] LABS: Absolute Lymphocytes (CBC) 1.2 K/uL (0.7-4.9); Absolute Monocytes 0.8 K/uL (0.1-1.3); Absolute Neutrophil 7.8 K/uL (1.8-8.0); Basophils % 0.4 % (0-1.3); Lymphocytes % 12.3 % (15.3-44.8); MCH 26.2 pg (27.0-35.0); MCV 81.4 fL (80-100); MPV 7.7 fL (7.6-11.3); RBC Red Blood Cell Count 3.44 M/uL (3.86-4.86)
[2018-05-04] MEDS ORDERED: NA CHLORIDE 0.9% 500 ML ONE (15:02)
[2018-05-04 15:04] LABS: Albumin 2.7 g/dL (3.4-5.0); Bilirubin Direct 0.1 mg/dL (0-0.2); Bilirubin Total 0.4 mg/dL (0.2-1.0); Protein, Total 7.9 g/dL (6.4-8.2)
[2018-05-04 15:22] LABS: Protime INR 1.36
--- NOTE | 2018-05-04 15:26 | RAD REPORT ---
EXAM DESCRIPTION: US - Transvaginal Study Probe - 05/04/2018 2:32 pm CLINICAL HISTORY: VAGINAL BLEEDING Pelvic pain. COMPARISON: No comparisons FINDINGS: The uterus is normal in size, shape and echotexture. The uterus measures 6.8 x 2.7 x 5.2 c m. A fibroid is present at the level of the lower uterine segment in intramural location measuring 2. 7 x 2.2 cm with probable submucosal extension. The endometrial stripe measures 5 mm, normal. Neither ovary was well visualized, likely due to bowel gas shadowing. No significant pelvic ascites. IMPRESSION: Lower uterine segment fibroid as described.
--- NOTE | 2018-05-04 15:40 | RAD REPORT ---
EXAM DESCRIPTION: CTAbdomen Pelvis W Contrast - 05/04/2018 3:27 pm CLINICAL HISTORY: Abdominal pain. ABD PAIN COMPARISON: Abdomen Pelvis Wo Contrast dated 02/11/2018; Stone Protocol dated 12/24/2017 TECHNIQUE: Biphasic CT imaging of the abdomen and pelvis was performed with 100 ml non-ionic IV cont rast. All CT scans are performed using dose optimization technique as appropriate and may include automated exposure control or mA/KV adjustment according to patient size. FINDINGS: Bibasilar pulmonary scarring is suspected, with volume loss, greater in the right lower lo be. The liver demonstrates no focal mass or biliary dilatation. Spleen is mildly enlarged in size. The pa ncreas and adrenal glands are normal. Small duodenum diverticulum is present. IVC filter is in place. Scarring is present in involving the cortex of the right kidney inferiorly. Small stone is present i n the inferior calyx right kidney measuring 5 mm. Prominent stone is present in the left renal pelvis measuring 20 mm with several additional stones in the inferior collecting system left kidney suggest ing staghorn calculus. No significant hydronephrosis. No bowel obstruction, free air, free fluid or abscess. Postsurgical changes with fat stranding noted in the right lower quadrant subcutaneous fat. Postoperative changes are also noted about the sigmoid colon. Scattered diverticula. The appendix is not discretely identified. No evidence of significant lymphadenopathy. Lower lumbar degenerative changes are evident. IMPRESSION: Postsurgical change in the lower abdomen is noted without acute process seen. Bilateral nephrolithiasis is seen with left-sided staghorn calculus.
[2018-05-04] MEDS ORDERED: ONDANSETRON 4 MG/2 ML VIAL ONE (16:04)
[2018-05-04] MEDS ORDERED: MORPHINE 4 MG/ML SYR ONE ×2 (16:04→17:34)
[2018-05-04 16:10] LABS: Urine Blood TRACE (NEG); Urine Glucose NEGATIVE (NEG); Urine Protein NEGATIVE (NEG); Urine Specific Gravity 1.015 (1.005-1.030); Urine pH 7.5 (5.0-7.0)
--- NOTE | 2018-05-04 16:21 | ER ---
Nurse's Notes [facility] Name: Rosio Jain Age: 62 yrs Sex: Female : 1955 Arrival Date: 05/04/2018 Time: 13:30 Bed 16 Private MD: Diagnosis: Leiomyoma of uterus;Abnormal uterine and vaginal bleeding, unspecified;Anemia, unspecified;Obesity, unspecified Presentation: 05/04 13:30 Presenting complaint: EMS states: Vaginal bleeding with large clots x 3 weeks. Denies hb pain. Transition of care: patient was not received from another setting of care. Onset of symptoms is unknown. Risk Assessment: Do you want to hurt yourself or someone else? Patient reports no desire to harm self or others. Care prior to arrival: IV initiated. 22 GA, in the left antecubital area. 13:30 Method Of Arrival: EMS: [facility] hb 13:30 Acuity: DYAN 3 hb 14:00 Initial Sepsis Screen: Does the patient meet any 2 criteria? No. Patient's initial hb sepsis screen is negative. Does the patient have a suspected source of infection? No. Patient's initial sepsis screen is negative. Historical: - Allergies: 13:33 NKA; hb - Home Meds: 13:33 alprazolam 1 mg Oral tab [Active]; citalopram 20 mg tab 1 tab once daily [Active]; hb folic acid 400 mcg Oral tab 1 tab once daily [Active]; furosemide 20 mg Oral tab 1 tab once daily [Active]; levothyroxine 175 mcg tab [Active]; metoprolol tartrate 50 mg Oral tab [Active]; valsartan-hydrochlorothiazide 320-25 mg Oral tab 1 tab once daily [Active]; zolpidem 10 mg Oral tab 1 tab once daily [Active]; 16:24 Xarelto 20 mg oral tab 1 tab once daily [Active]; hb - PMHx: 13:33 Hypertension; Diabetes - NIDDM; Anxiety; Hypothyroidism; hb - Immunization history:: Adult Immunizations up to date. - Social history:: Smoking status: Patient/guardian denies using tobacco. - Ebola Screening: : No symptoms or risks identified at this time. - Family history:: not pertinent. Screenin:00 Abuse screen: Denies threats or abuse. Denies injuries from another. Nutritional hb screening: No deficits noted. Tuberculosis screening: No symptoms or risk factors identified. Fall Risk Total Torres Fall Scale indicates High Risk Score (45 or more points). Fall prevention measures have been instituted. Side Rails Up X 2 Frequent Obs/Assessments Occuring Family Present and informed to notify staff if the need to leave the bedside As available patient and family educated on Fall Prevention Program and Strategies. Assessment: 14:02 Reassessment: Pt finished drinking oral contrast, CT dept notified. hb 14:12 General: Appears in no apparent distress. Behavior is calm, cooperative. Pain: hb Complains of pain in chronic back pain Pain currently is 8 out of 10 on a pain scale. Neuro: Level of Consciousness is awake, alert, obeys commands, Oriented to person, place, time, situation. Cardiovascular: Heart tones S1 S2 present Capillary refill < 3 seconds Patient's skin is warm and dry. Respiratory: Airway is patent Trachea midline Respiratory effort is even, unlabored, Respiratory pattern is regular, symmetrical, Breath sounds are clear bilaterally. GI: No signs and/or symptoms were reported involving the gastrointestinal system. : Reports vaginal bleeding that is bright red, with clots. EENT: No signs and/or symptoms were reported regarding the EENT system. Derm: No signs and/or symptoms reported regarding the dermatologic system. Skin is intact, is healthy with good turgor, Skin is dry, Skin is pale. Musculoskeletal: No signs and/or symptoms reported regarding the musculoskeletal system. 15:00 Reassessment: Patient appears in no apparent distress at this time. No changes from hb previously documented assessment. Patient and/or family updated on plan of care and expected duration. Pain level reassessed. Patient is alert, oriented x 3, equal unlabored respirations, skin warm/dry/pink. 16:00 Reassessment: Patient appears in no apparent distress at this time. Patient and/or hb family updated on plan of care and expected duration. Pain level reassessed. Patient is alert, oriented x 3, equal unlabored respirations, skin warm/dry/pink. Pt c/o pain all over, especially back. Dr. Gonzales notified, morphine and zofran administered as ordered. remains at bedside. 17:36 Reassessment: Patient appears in no apparent distress at this time. Pt c/o back and hb bilateral knee pain, requesting pain medication. Dr. Gonzales notified, rep[eat morphine administered as ordered. 18:10 Reassessment: OK to give pt orange juice per Dr. Gonzales. OJ provided as requested. hb Transfer to [facility] pending. 19:48 Reassessment: Patient appears in no apparent distress at this time. Patient and/or aa1 family updated on plan of care and expected duration. Pain level reassessed. Patient is alert, oriented x 3, equal unlabored respirations, skin warm/dry/pink. Report given to Virgie Case RN at [facility]. 20:31 Reassessment: Patient appears in no apparent distress at this time. Patient is alert, aa1 oriented x 3, equal unlabored respirations, skin warm/dry/pink. Patient states feeling better. EMS present for transfer. 20:41 Reassessment: Pt requested pain medication prior to EMS transfer. aa1 Vital Signs: 13:31 BP 131 / 64; Pulse 95; Resp 18; Temp 98.4; Pulse Ox 100% on R/A; Pain 8/10; hb 14:30 BP 109 / 81; Pulse 93; Resp 17; Pulse Ox 100% on R/A; hb 15:13 BP 118 / 60; Pulse 90; Resp 17; Pulse Ox 99% ; hb 16:00 BP 135 / 56; Pulse 92; Resp 17; Pulse Ox 100% on R/A; hb 17:00 BP 128 / 68; Pulse 88; Resp 15; Pulse Ox 100% on R/A; hb 18:00 BP 118 / 62; Pulse 88; Resp 14; Pulse Ox 100% on R/A; hb 19:48 BP 101 / 58; Pulse 98; Resp 16; Pulse Ox 97% on R/A; aa1 20:41 BP 108 / 60; Pulse 101; Resp 18; Temp 98.6; Pulse Ox 100% on R/A; Pain 6/10; aa1 ED Course: 13:30 Patient arrived in ED. hb 13:31 Triage completed. hb 13:35 Arm band placed on right ankle. hb 13:45 Serge Gonzales MD is Attending Physician. christiano 13:58 Maribell Prajapati, MARK is Primary Nurse. hb 14:04 Oral contrast reported to be complete. vr 14:12 Patient has correct armband on for positive identification. Bed in low position. Call hb light in reach. Side rails up X 1. 14:20 US Transvaginal Study (Probe) In Process Unspecified. EDMS 14:23 Initial lab(s) drawn, by me, sent to lab. dh3 15:[address] via stretcher. vr 15:26 CT completed. Patient tolerated procedure well. Patient moved back from CT. vr 15:28 CT Abd/Pelvis - W/Contrast In Process Unspecified. EDMS 20:41 No provider procedures requiring assistance completed. Patient transferred, IV remains aa1 in place. Administered Medications: 14:30 Drug: NS 0.9% 500 ml Route: IV; Rate: bolus; Site: left antecubital; hb 15:15 Follow up: Response: No adverse reaction; IV Status: Completed infusion hb 16:00 Drug: morphine 4 mg Route: IVP; Site: left wrist; hb 16:30 Follow up: Response: No adverse reaction hb 16:00 Drug: Zofran 4 mg Route: IVP; Site: left wrist; hb 16:30 Follow up: Response: No adverse reaction hb 17:25 Drug: Rocephin - (cefTRIAXone) 1 grams Route: IVPB; Infused Over: 30 mins; Site: left hb wrist; 17:30 Follow up: IV Status: Completed infusion hb 17:25 Drug: Flagyl 500 mg Volume: 100 ml; Route: IVPB; Rate: 200 ml/hr; Infused Over: 30 hb mins; Site: left wrist; 18:05 Follow up: IV Status: Completed infusion hb 17:31 Drug: morphine 4 mg Route: IVP; Site: left wrist; hb 19:05 Follow up: Response: No adverse reaction; Pain is decreased aa1 20:40 Drug: fentaNYL (PF) 50 mcg Route: IVP; Site: left forearm; aa1 20:40 Follow up: Response: Medication administered at discharge. aa1 Outcome: 16:20 ER care complete, transfer ordered by MD. alvarado 20:41 Transferred by ground EMS to [facility], Transfer form aa1 completed. 20:41 Condition: stable 20:41 Instructed on the need for transfer, Demonstrated understanding of instructions. 20:41 No charge visit due to suture removal. 20:42 Patient left the ED. aa1 Addendum: 05/07/2018 07:43 Addendum: Culture Results: Positive urine culture. culture report faxed to [facility] i w Attn:Kristin. Signatures: Dispatcher [employer] Kristine Lam RN RN aa1 Serge Gonzales MD MD cha Williams, Irene, RN RN iw Davis, Victoria vr Baxter, Heather, RN RN José Luis, Flory [facility]
--- NOTE | 2018-05-04 16:21 | EDPHYS ---
Physician Documentation [facility] Name: Rosio Jain Age: 62 yrs Sex: Female : 1955 Arrival Date: 05/04/2018 Time: 13:30 Bed 16 Private MD: ED Physician Serge Gonzales HPI: 05/04 16:14 This 62 yrs old Female presents to ER via EMS with complaints of Vaginal christiano Bleeding. 16:14 The patient presents with vaginal bleeding that is. Onset: The symptoms/episode christiano began/occurred 21 day(s) ago. Modifying factors: The symptoms are alleviated by nothing, the symptoms are aggravated by walking. Associated signs and symptoms: Pertinent positives: diarrhea, vaginal bleeding. Severity of symptoms: At their worst the symptoms were moderate, in the emergency department the symptoms are unchanged. The patient is not sexually active. The patient has not experienced similar symptoms in the past. Historical: - Allergies: 13:33 NKA; hb - Home Meds: 13:33 alprazolam 1 mg Oral tab [Active]; citalopram 20 mg tab 1 tab once daily [Active]; hb folic acid 400 mcg Oral tab 1 tab once daily [Active]; furosemide 20 mg Oral tab 1 tab once daily [Active]; levothyroxine 175 mcg tab [Active]; metoprolol tartrate 50 mg Oral tab [Active]; valsartan-hydrochlorothiazide 320-25 mg Oral tab 1 tab once daily [Active]; zolpidem 10 mg Oral tab 1 tab once daily [Active]; 16:24 Xarelto 20 mg oral tab 1 tab once daily [Active]; hb - PMHx: 13:33 Hypertension; Diabetes - NIDDM; Anxiety; Hypothyroidism; hb - Immunization history:: Adult Immunizations up to date. - Social history:: Smoking status: Patient/guardian denies using tobacco. - Ebola Screening: : No symptoms or risks identified at this time. - Family history:: not pertinent. ROS: 16:14 Constitutional: Negative for fever, chills, and weight loss, Eyes: Negative for injury, christiano pain, redness, and discharge, ENT: Negative for injury, pain, and discharge, Neck: Negative for injury, pain, and swelling, Cardiovascular: Negative for chest pain, palpitations, and edema, Respiratory: Negative for shortness of breath, cough, wheezing, and pleuritic chest pain, Abdomen/GI: Negative for abdominal pain, nausea, vomiting, diarrhea, and constipation, Back: Negative for injury and pain, MS/Extremity: Negative for injury and deformity, Neuro: Negative for headache, weakness, numbness, tingling, and seizure, Psych: Negative for depression, anxiety, suicide ideation, homicidal ideation, and hallucinations, Allergy/Immunology: Negative for hives, rash, and allergies, Endocrine: Negative for neck swelling, polydipsia, polyuria, polyphagia, and marked weight changes, Hematologic/Lymphatic: Negative for swollen nodes, abnormal bleeding, and unusual bruising. 16:14 : Positive for vaginal bleeding. 16:14 Skin: Positive for pallor. Exam: 16:14 Constitutional: This is a well developed, well nourished patient who is awake, alert, christiano and in no acute distress. Head/Face: Normocephalic, atraumatic. Eyes: Pupils equal round and reactive to light, extra-ocular motions intact. Lids and lashes normal. Conjunctiva and sclera are non-icteric and not injected. Cornea within normal limits. Periorbital areas with no swelling, redness, or edema. ENT: Nares patent. No nasal discharge, no septal abnormalities noted. Tympanic membranes are normal and external auditory canals are clear. Oropharynx with no redness, swelling, or masses, exudates, or evidence of obstruction, uvula midline. Mucous membranes moist. Neck: Trachea midline, no thyromegaly or masses palpated, and no cervical lymphadenopathy. Supple, full range of motion without nuchal rigidity, or vertebral point tenderness. No Meningismus. Chest/axilla: Normal chest wall appearance and motion. Nontender with no deformity. No lesions are appreciated. Cardiovascular: Regular rate and rhythm with a normal S1 and S2. No gallops, murmurs, or rubs. Normal PMI, no JVD. No pulse deficits. Respiratory: Lungs have equal breath sounds bilaterally, clear to auscultation and percussion. No rales, rhonchi or wheezes noted. No increased work of breathing, no retractions or nasal flaring. Back: No spinal tenderness. No costovertebral tenderness. Full range of motion. MS/ Extremity: Pulses equal, no cyanosis. Neurovascular intact. Full, normal range of motion. Neuro: Awake and alert, GCS 15, oriented to person, place, time, and situation. Cranial nerves II-XII grossly intact. Motor strength 5/5 in all extremities. Sensory grossly intact. Cerebellar exam normal. Normal gait. Psych: Awake, alert, with orientation to person, place and time. Behavior, mood, and affect are within normal limits. 16:14 Abdomen/GI: Inspection: distension, Bowel sounds: normal, Palpation: mild abdominal tenderness, in the suprapubic area, right lower quadrant and left lower quadrant, Liver: no appreciated palpable abnormalities, Hernia: noted in the umbilical area. Vital Signs: 13:31 BP 131 / 64; Pulse 95; Resp 18; Temp 98.4; Pulse Ox 100% on R/A; Pain 8/10; hb 14:30 BP 109 / 81; Pulse 93; Resp 17; Pulse Ox 100% on R/A; hb 15:13 BP 118 / 60; Pulse 90; Resp 17; Pulse Ox 99% ; hb 16:00 BP 135 / 56; Pulse 92; Resp 17; Pulse Ox 100% on R/A; hb 17:00 BP 128 / 68; Pulse 88; Resp 15; Pulse Ox 100% on R/A; hb 18:00 BP 118 / 62; Pulse 88; Resp 14; Pulse Ox 100% on R/A; hb 19:48 BP 101 / 58; Pulse 98; Resp 16; Pulse Ox 97% on R/A; aa1 20:41 BP 108 / 60; Pulse 101; Resp 18; Temp 98.6; Pulse Ox 100% on R/A; Pain 6/10; aa1 MDM: 13:45 Patient medically screened. [facility] 16:14 Data reviewed: vital signs, nurses notes, lab test result(s), EKG, radiologic studies, [facility] CT scan, ultrasound. 05/04 13:50 Order name: Abo/rh Typing; Complete Time: 15:58 [facility] 05/04 13:50 Order name: Basic Metabolic Panel; Complete Time: 15:58 [facility] 05/04 13:50 Order name: CBC with Diff; Complete Time: 15:58 [facility] 05/04 13:50 Order name: LFT's; Complete Time: 15:58 [facility] 05/04 13:50 Order name: PT-INR; Complete Time: 15:58 [facility] 05/04 13:50 Order name: Ptt, Activated; Complete Time: 15:58 [facility] 05/04 13:50 Order name: CT Abd/Pelvis - W/Contrast; Complete Time: 15:58 [facility] 05/04 13:50 Order name: US Transvaginal Study (Probe); Complete Time: 15:58 [facility] 05/04 13:50 Order name: Urine Culture [facility] 05/04 15:52 Order name: Urine Dipstick--Ancillary (enter results); Complete Time: 16:18 05/04 13:50 Order name: IV Saline Lock; Complete Time: 14:23 [facility] 05/04 13:50 Order name: Labs collected and sent; Complete Time: 14:23 [facility] 05/04 13:50 Order name: NPO; Complete Time: 14:54 [facility] 05/04 13:50 Order name: Urine Dipstick-Ancillary (obtain specimen); Complete Time: 15:48 [facility] 05/04 15:48 Order name: Straight Cath - Urine; Complete Time: 15:48 hb Administered Medications: 14:30 Drug: NS 0.9% 500 ml Route: IV; Rate: bolus; Site: left antecubital; hb 15:15 Follow up: Response: No adverse reaction; IV Status: Completed infusion hb 16:00 Drug: morphine 4 mg Route: IVP; Site: left wrist; hb 16:30 Follow up: Response: No adverse reaction hb 16:00 Drug: Zofran 4 mg Route: IVP; Site: left wrist; hb 16:30 Follow up: Response: No adverse reaction hb 17:25 Drug: Rocephin - (cefTRIAXone) 1 grams Route: IVPB; Infused Over: 30 mins; Site: left hb wrist; 17:30 Follow up: IV Status: Completed infusion hb 17:25 Drug: Flagyl 500 mg Volume: 100 ml; Route: IVPB; Rate: 200 ml/hr; Infused Over: 30 hb mins; Site: left wrist; 18:05 Follow up: IV Status: Completed infusion hb 17:31 Drug: morphine 4 mg Route: IVP; Site: left wrist; hb 19:05 Follow up: Response: No adverse reaction; Pain is decreased aa1 20:40 Drug: fentaNYL (PF) 50 mcg Route: IVP; Site: left forearm; aa1 20:40 Follow up: Response: Medication administered at discharge. aa1 Disposition: 05/04/18 16:20 Transfer ordered to [facility]. Diagnosis are Leiomyoma of uterus, Abnormal uterine and vaginal bleeding, unspecified, Anemia, unspecified, Obesity, unspecified. - Reason for transfer: Higher level of care. - Accepting physician is to [facility]. - Condition is Fair. - Problem is new. - Symptoms have improved. Signatures: Dispatcher [employer] EDKristine Hall RN RN aa1 Serge Gonzales MD MD cha Baxter, Heather, RN RN Corrections: (The following items were deleted from the chart) 20:42 16:20 05/04/2018 16:20 Transfer ordered to [facility]. Diagnosis is Leiomyoma of aa1 uterus; Abnormal uterine and vaginal bleeding, unspecified; Anemia, unspecified; Obesity, unspecified. Reason for transfer: Higher level of care. Accepting physician is to [facility]. Condition is Fair. Problem is new. Symptoms have improved. christiano
[2018-05-04] MEDS ORDERED: CEFTRIAXONE/SWI 1gm 1 GM/10 ML SYR ONE (17:26)
[2018-05-04] MEDS ORDERED: METRONIDAZOLE 500mg IVPB 500 MG/100 ML BAG IV ONE (17:27)
[2018-05-04] MEDS ORDERED: FENTANYL CITR 100 MCG/2 ML ONE (20:40)
[2018-05-04 21:13] VITALS: BP 108/60; TEMP 98.6; O2SAT 100
== END 2018-05-04 20:42 | disposition short-term general hospital (02) ==
LOC: ER 13:24
DX: D25.9 Leiomyoma of uterus, unspecified (principal); D64.9 Anemia, unspecified; E66.9 Obesity, unspecified; I10 Essential (primary) hypertension; E11.9 Type 2 diabetes mellitus without complications; F41.9 Anxiety disorder, unspecified; E03.9 Hypothyroidism, unspecified
CPT/HCPCS: 36415; 74177; 76830; 80048; 80076; 81003; 85025; 85610; 85730; 86900; 86901; 87077; 87086; 87088; 87186; J0696; J2405; J3010; Q9967

== ENCOUNTER 2020-04-04 16:51 | Inpatient (IN) | payer OTHER ==
--- OUTSIDE RECORDS SUMMARY | 2020-04-04 16:53 | XMS REPORT | Clinical Summary ---
:1955 Author Organization [facility] Address [address] [place] [address] Care Team Providers Name Role Phone Arthur Fong MD Primary Care Provider [phone] Allergies No Known Allergies Medications Medication Sig Dispensed Refills Start Date End Date Status albuterol (PROAIR Inhale 2 puffs every 0 Active HFA,PROVENTIL 6 (six) hours as HFA,VENTOLIN HFA) 90 needed for wheezing. mcg/actuation inhaler ALPRAZolam (XANAX) 1 Take 1 mg by mouth 3 0 Active MG tablet (three) times a day as needed for anxiety. citalopram (CeleXA) Take 20 mg by mouth 0 Active 20 MG tablet every morning. diclofenac-misoprost Take 1 tablet by 0 Active ol (ARTHROTEC 75) mouth 2 (two) times 75-200 mg-mcg EC a day as needed tablet (arthritis pain). ferrous Take 1 tablet by 0 Act jp fumarate-folic acid mouth nightly. (HEMATINIC/FOLIC ACID) 324 mg (106 mg iron)-1 mg tablet per tablet rivaroxaban Take 20 mg by mouth 0 Active (XARELTO) 20 mg nightly. tablet zolpidem (AMBIEN) 10 Take 10 mg by mouth 0 Active mg tablet nightly as needed for sleep. enoxaparin (LOVENOX) Inject 0.8 ml 2.4 mL 0 10/24/2017 Active 120 mg/0.8 mL subcutanouesly twice syringe daily. Take after stopping xarelto 2 days prior to surgery. Hold the night before surgery. umeclidinium-vilante Inhale 1 puff daily 30 each 0 8 Active rol (ANORO ELLIPTA) for 30 days. 62.5-25 mcg/actuation blister with device metoprolol tartrate Take 50 mg by mouth 0 Active (LOPRESSOR) 50 mg 2 (two) times a day. tablet LYRICA 75 mg capsule Take 75 mg by mouth 0 8 Active 2 (two) times a day. fluocinonide 0.1 % Apply 1 application 0 11/27/2017 Active cream topically 2 (two) times a day. (apply sparingly) levothyroxine Take 175 mcg by 0 Active (SYNTHROID, LEVOXYL) mouth every morning. 175 mcg tablet Active Problems Problem Noted Date Morbid obesity with BMI of 50.0-59.9, adult 12/12/2017 Acute renal failure 12/03/2017 Colovesical fistula 10/20/2017 Family History Patient is adopted Relation Name Status Comments Father Mother Social History Tobacco Use Types Packs/Day Years Used Date Never Smoker Smokeless Tobacco: Never Used Alcohol Use Drinks/Week oz/Week Comments No Sex Assigned at Date Recorded Not on file Job Start Date Occupation Industry Not on file Not on file Not on file Travel History Travel Start Travel End No recent travel history available. Last Filed Vital Signs Not on file Plan of Treatment Health Maintenance Due Date Last Done Comments DIABETIC RETINAL EYE EXAM 1955 DIABETIC FOOT EXAM 1966 URINE MICROALBUMIN 1966 CERVICAL CANCER SCREENING 1977 BREAST CANCER SCREENING 2006 COLONOSCOPY SCREENING 2006 SHINGLES VACCINES (#1) 2006 INFLUENZA VACCINE 04/15/2020 Implants Implanted Type Area Assistant Manager Device Shelf Model / Identifier Expiration Serial / Date Lot Catheter Cv Powerline Dlmn Al 6fr - [id number] Surgical N/A: N/A BAR D ACCESS [id number] / Implanted: 12/11/2017 at [facility] (Quantity not on file) Implan ts; SYSTEMS / Expanders; Extenders; Surgical Wires Results Not on fileafter 04/04/2019 Insurance Payer Benefit Plan / Subscriber ID Effective Dates Phone Addre ss Type Group CIGNA CIGNA OPEN xxxxxxxxxxx 2003-Present HMO ACCESS/NETWORK MEDICARE MEDICARE PART A xxxxxxxxxx 2009-Present [place] Medicare AND B Advance Directives For more information, please contact: [phone] Type Date Recorded Patient Holistic Nutritionist Explanati on Advance Directives, Living Will and Medical Power of Logistics Team Leader
--- OUTSIDE RECORDS SUMMARY | 2020-04-04 16:54 | XMS REPORT | Clinical Summary ---
:1955 Author Organization [facility] Address [address] [place] [address] Care Team Providers Name Role Phone Sharonda Fong Primary Care Provider Unavailable Allergies No Known Allergies Medications Medication Sig Dispensed Refills Start Date End Date Status zolpidem (AMBIEN) 10 mg tablet 0 6 Active citalopram (CELEXA) 20 MG tablet 0 016 Active furosemide (LASIX) 20 MG tablet 0 08/17/20 16 Active levothyroxine (SYNTHROID, 0 08/17/2016 Active LEVOTHROID) 150 MCG tablet metoprolol (LOPRESSOR) 50 MG tablet 0 11/2015 Active valsartan-hydrochlorothiazide 0 09/30/2016 Active (DIOVAN-HCT) 320-25 mg per tablet potassium citrate (UROCIT-K) 10 mEq 0 11/2015 Active (1,080 mg) SR tablet HEMATINIC/FOLIC ACID 324 mg (106 mg 0 10/2016 Active iron)-1 mg Tab Active Problems Problem Noted Date Leukocytosis 10/31/2016 Type 2 diabetes mellitus without complication, without long-term current 10/31/2016 use of insulin Diverticulitis 10/30/2016 Social History Tobacco Use Types Packs/Day Years Used Date Never Smoker Sex Assigned at Date Recorded Not on file Job Start Date Occupation Industry Not on file Not on file Not on file Travel History Travel Start Travel End No recent travel history available. Last Filed Vital Signs Not on file Plan of Treatment Not on file Results Not on fileafter 04/04/2019 Insurance Payer Benefit Plan / Group Subscriber ID Type Phone A ddress [place] - [facility] CARE CIGNA HMO/POS/OPEN ACCESS xxxxxxxxx xx HMO/POS MEDICARE MEDICARE A B xxxxxxxxxx Medicare OTHER-COMMERCIAL GENERIC COMMERCIAL xxxxxxxxx ([place]) [place] [address] Advance Directives For more information, please contact:[address] [phone] Code Status Date Activated Date Inactivated Comments Full Code 10/30/2016 9:08 PM 11/05/2016 3:11 PM This code status was determined by: Patient
--- OUTSIDE RECORDS SUMMARY | 2020-04-04 16:55 | XMS REPORT | Continuity of Care Document ---
:1955 Author Organization [facility] t Address [address] [place] [address] Care Team Providers Name Role Phone Sharonda Fong Primary Care Physician Unavailable Ajit BORREGO Attending Clinician Doctor Unassigned, Name Attending Clinician Unavailable GAL MULLEN Attending Clinician Unavailable GAL MULLEN Admitting Clinician Unavailable Problems Condition Condition Condition Status Onset Resolution Last Treating Co mments Source Name Details Category Date Date Treatment Clinician Date Anxiety Anxiety Problem Active [place] disorder Disorder 03-12 Family 00:00: Practic 00 e Insomnia Insomnia Problem Active [facility] 03-12 Family 00:00: Practic 00 e Knee pain Knee Pain Problem Active [facility] isabella 03-12 Family 00:00: Practic 00 e Hypothyroi Hypothyroi Problem Active [facility] dism dism 03-08 Family 00:00: Practic 00 e Diabetes Diabetes Problem Active [facility] mellitus Mellitus 03-08 Family 00:00: Practic 00 e Gout Gout Problem Active [facility] 03-08 Family 00:00: Practic 00 e Major Major Problem Active [facility] depressive Depressive 03-08 Fa lana disorder Disorder 00:00: Practi c 00 e Essential Essential Problem Active [facility] isabella hypertensi Hypertensi 6-24 Fa lana on on 00:00: Practic 00 e 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 03-08 Family 00:00: Practic 00 e Chronic Chronic Problem Active [place] back pain Back Pain 6 Fami ly 00:00: Practic 00 e Bilateral Bilateral Problem Active [facility] knee pain Knee Pain 03-08 Fami ly 00:00: Practic 00 e Morbid Morbid Disease Active [place] obesity obesity 3-30 Methodi with BMI with BMI 00:00: st of of 00 50.0-59.9, 50.0-59.9, adult adult Acute Acute Disease Active [place] renal renal 3-21 Methodi failure failure 00:00: st 00 [place] Disease Active [place] l fistula l fistula 2-05 Meth justina 00:00: st 00 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 Social History Social Habit Start Date Stop Date Quantity Comments Source Sex Assigned At [place] [facility] Alcohol intake 2017-12-02 2017-12-02 Current [facility] thodist 00:00:00 00:00:00 non-drinker of alcohol (finding) Smoking Status Start Date Stop Date Source Never smoker [place] Dan[facility] t Medications Ordered Filled Start Stop Current Ordering Indication Dosage Frequency Signature Comments Components Source Medication Medication Date Date Medication? Clinician (SIG) Name Name levothyroxi Yes 175ug QD Take 175 [place] ne 4-05 mcg by Suresh (SYNTHROID, 15:53: mouth st LEVOXYL) 29 every 175 mcg morning. tablet albuterol Yes 2{puff} Q6H Inhale 2 [place] (PROAIR 4-03 puffs Methodi HFA,PROVENT 13:48: every 6 st [place] 08 (six) HFA,VENTOLI hours as N HFA) 90 needed for mcg/actuati wheezing. on inhaler ALPRAZolam 2017-0 Yes 1mg Q.[id number] Take 1 mg Gill (XANAX) 1 4-03 [id number] by mouth 3 Methodi MG tablet 13:48: 3D (three) st 08 times a day as needed for anxiety. citalopram 2018-0 Yes 20mg QD Take 20 mg [place] (CeleXA) 20 4-03 by mouth Meth justina MG tablet 13:48: every st 08 morning. diclofenac- 2018-0 Yes 1{tbl} Q.5D Take 1 [place] misoprostol 4-03 tablet by Met linda (ARTHROTEC 13:48: mouth 2 st 75) 75-200 08 (two) mg-mcg EC times a tablet day as needed (arthritis pain). ferrous 2017-0 Yes 1{tbl} QD Take 1 [place] fumarate-fo 4-03 tablet by Met linda lic acid 13:48: mouth st (HEMATINIC/ 08 nightly. FOLIC ACID) 324 mg (106 mg iron)-1 mg tablet per tablet rivaroxaban 2017-0 Yes 20mg QD Take 20 mg Gill (XARELTO) 403 by mouth Method i 20 mg 13:48: nightly. st tablet 08 zolpidem 2017-0 Yes 10mg QD Take 10 mg Starr ston (AMBIEN) 10 4-03 by mouth Meth justina mg tablet 13:48: nightly as st 08 needed for sleep. metoprolol 2017-0 Yes 50mg Q.5D Take 50 mg [place] tartrate 4-03 by mouth 2 Metho di (LOPRESSOR) 13:48: (two) st 50 mg 08 times a tablet day. fluocinonid 2018-0 Yes 1{appli Q.5D Apply 1 Gill e 0.1 % 3-15 cation} applicatio Met linda cream 00:00: n st 00 topically 2 (two) times a day. (apply sparingly) LYRICA 75 2017-0 Yes 75mg Q.5D Take 75 mg [place] mg capsule 3-12 by mouth 2 Met hodi 00:00: (two) st 00 times a day. enoxaparin 2018-0 Yes Inject 0.8 [place] (LOVENOX) 2-09 ml Methodi 120 mg/0.8 00:00: subcutanou s t mL syringe 00 sharon twice daily. Take after stopping xarelto 2 days prior to surgery. Hold the night before surgery. umeclidiniu Yes 1{puff} QD Inhale 1 Gill m-vilantero 2-09 puff daily Me thodi l (ANORO 00:00: for 30 ) 00 days. 62.5-25 mcg/actuati on blister with device valsartan-h Yes [facility] ydrochlorot 1-16 [facility] hiazide 00:[facility]: Medical (DIOVAN-HCT 00 Center ) 320-25 mg per tablet HEMATINIC/F Yes [facility] OLIC ACID 1-02 [facility] - 324 mg (106 00:00: Medica l mg iron)-1 00 [place] mg Tab citalopram 2015-[address] (CELEXA) 20 2-03 [facility] MG tablet 00:00: Medical 00 [place] furosemide 2015-[address] (LASIX) 20 2-03 [facility] MG tablet 00:00: Medical 00 [place] levothyroxi 2015-[address] ne 2-03 [facility] - (SYNTHROID, 00:00: Medica l LEVOTHROID) 00 Center 150 MCG tablet metoprolol 2015-[address] (LOPRESSOR) 2-03 [facility] - 50 MG 00:00: Medical tablet 00 [place] potassium 2015-[address] citrate 2-03 [facility] - (UROCIT-K) 00:00: Medical 10 mEq 00 [place] (1,080 mg) SR tablet zolpidem 2015-[address] (AMBIEN) 10 2-01 [facility] mg tablet 00:00: Medical 00 [place] allopurinol allopurinol No 1 Q1D allopurino [place] 100 mg 100 mg l 100 mg Family tablet Take tablet Take tablet Practic 1 tablet 1 tablet Take 1 e every day every day tablet by oral by oral every day route. route. by oral route. alprazolam alprazolam No 1 TID alprazolam [place] 1 mg tablet 1 mg tablet 1 mg F amily Take 1 Take 1 tablet Practic tablet 3 tablet 3 Take 1 e times a day times a day tablet 3 by oral by oral times a route. route. day by oral route. citalopram citalopram No 1 Q1D citalopram [facility] 20 mg 20 mg 20 mg Family tablet Take tablet Take tablet Practic 1 tablet 1 tablet Take 1 e every day every day tablet by oral by oral every day route as route as by oral directed. directed. route as directed. etodolac etodolac No 1 BID etodolac Diaz isabella 400 mg 400 mg 400 mg Family tablet Take tablet Take tablet Practic 1 tablet 1 tablet Take 1 e twice a day twice a day tablet by oral by oral twice a route. route. day by oral route. hydrocodone hydrocodone No 1 Q4H hydrocodon [place] 10 10 e 10 Family mg-acetamin mg-acetamin mg-acetami Practic ophen 325 ophen 325 nophen 325 e mg tablet mg tablet mg tablet Take 1 Take 1 Take 1 tablet tablet tablet every 4 every 4 every 4 hours by hours by hours by oral route. oral route. oral route. levothyroxi levothyroxi No 1 Q1D levothyrox [facility] ne 75 mcg ne 75 mcg ine 75 mcg Family tablet Take tablet Take tablet Practic 1 tablet 1 tablet Take 1 e every day every day tablet by oral by oral every day route. route. by oral route. Lyrica 150 Lyrica 150 No 1capsul BID Lyrica 150 [place] mg capsule mg capsule e(s) mg capsule Family Take 1 Take 1 Take 1 Practic capsule capsule capsule e twice a day twice a day twice a by oral by oral day by route. route. oral route. metformin metformin No 1 BID metformin [facility] 500 mg 500 mg 500 mg Family tablet Take tablet Take tablet Pract[facility] 1 tablet 1 tablet Take 1 e twice a day twice a day tablet by oral by oral twice a route. route. day by oral route. metoprolol metoprolol No 1 Q1D metoprolol [facility] succinate succinate succinate Family ER 100 mg ER 100 mg ER 100 mg Practic tablet,exte tablet,exte tablet,ext e nded nded ended release 24 release 24 release 24 hr Take 1 hr Take 1 hr Take 1 tablet tablet tablet every day every day every day by oral by oral by oral route. route. route. tizanidine tizanidine No 1capsul Q6H tizanidine [facility] 4 mg 4 mg e(s) 4 mg Family capsule capsule capsule Practi c Take 1 Take 1 Take 1 e capsule capsule capsule every 6 every 6 every 6 hours by hours by hours by oral route. oral route. oral route. valsartan valsartan No 1 Q1D valsartan [facility] 320 320 320 [facility] mg-hydrochl mg-hydrochl mg-hydroch Practic orothiazide orothiazide lorothiazi e 12.5 mg 12.5 mg de 12.5 mg tablet Take tablet Take tablet 1 tablet 1 tablet Take 1 every day every day tablet by oral by oral every day route. route. by oral route. Xarelto 10 Xarelto 10 No 1 Q1D Xarelto 10 [facility] mg tablet mg tablet mg tablet Family Take 1 Take 1 Take 1 Practic tablet tablet tablet e every day every day every day by oral by oral by oral route. route. route. Immunizations Ordered Immunization Filled Immunization Date Status Commen ts Source Name Name influenza, influenza, 2019-06-15 Completed [facility] injectable, injectable, 00:00:00 Practice quadrivalent quadrivalent Vital Signs Vital Name Observation Time Observation Value Comments Source Height 2020-03-08 00:00:00 68 [in_i] [facility] BMI (Body Mass 2020-03-08 00:00:00 35 kg/m2 [facility] Index Practice Body Weight 2020-03-08 00:00:00 230 [lb_av] [facility] Procedures This patient has no known procedures. Plan of Care Planned Activity Planned Date Details Comments Source Future Scheduled Test 2020-04-15 INFLUENZA VACCINE [facility] 00:00:00 [code = INFLUENZA VACCINE] Future Scheduled Test 2006 BREAST CANCER [place] 00:00:00 SCREENING [code = BREAST CANCER SCREENING] Future Scheduled Test [address] [facility] 00:00:00 [code = COLONOSCOPY SCREENING] Future Scheduled Test 2006 SHINGLES VACCINES H [facility] 00:00:00 (#1) [code = SHINGLES VACCINES (#1)] Future Scheduled Test 1977 Screening for [facility] 00:00:00 malignant neoplasm of cervix (procedure) [code = 099682591] Future Scheduled Test [address] [facility] 00:00:00 [code = DIABETIC FOOT EXAM] Future Scheduled Test [address] [facility] 00:00:00 [code = URINE MICROALBUMIN] Future Scheduled Test [address] [facility] 00:00:00 EXAM [code = DIABETIC RETINAL EYE EXAM] Future Appointment 2020-05-12 Prudence Crockett, [facility] Family 00:00:00 [address]; [address], [place] [address] [facility] Encounters Start End Encounter Admission Attending Care Care Encounter Source Date/Time Date/Time Type Type Clinicians Facility Department ID 2020-03-28 2020-03-28 Telephone [facility] [id number] 00:00:00 00:00:00 [facility] [id number] [place] [id number] Professio [phone] nal 044 [address] One 2020-03-24 2020-03-24 [facility] [id number] 00:00:00 00:00:00 [facility] [id number] [place] [id number] Professio [phone] nal 044 Office [address] One 2020-03-21 2020-03-21 Refill [facility] [id number] 00:00:00 00:00:00 [facility] [id number] [place] [id number] Professio [phone] nal 044 Office [address] One 2020-03-08 2020-03-08 Prudence [facility] [place] - [id number] V illage 00:00:00 00:00:00 [facility] erika kong [employer] DIRECTOR: Medical - Practi c [address] [email or web address] [facility], [address], [place] [address] , Ph. 2020-02-22 2020-02-22 [facility] [id number] 00:00:00 00:00:00 [facility] [id number] [place] [id number] Professio [phone] nal 044 [address] 2020-02-22 2020-02-22 Jose Roberto Fong, [facility] [id number] 00:00:00 00:00:00 [facility] [id number] [place] [id number] Professio [phone] [place] [address] [address] 2020-02-11 2020-02-11 Jose Roberto Fong [facility] [id number] 00:00:00 00:00:00 [facility] [id number] [place] [id number] Professio [phone] [address] 2020-02-07 2020-02-07 Orders Doctor [facility] [id number] 00:00:00 00:00:00 Only Unassigned, KEVIN [id number] [place] [facility] 4.2.7.2.686 [phone] 2020-02-04 2020-02-04 [facility] [id number] 00:00:00 00:00:00 [facility] [id number] [place] [id number] Professio [phone] [place] [address] [address] 2020-02-04 2020-02-04 [facility] [id number] 00:00:00 00:00:00 [facility] [id number] [place] [id number] Professio [phone] [place] [address] [address] 2020-02-04 2020-02-04 [facility] [id number] 00:00:00 00:00:00 [facility] [id number] [place] [id number] Professio [phone] 2020-01-28 2020-01-28 Refkathrin Fong, [facility] [id number] 00:00:00 00:00:00 [facility] [id number] [place] [id number] Professio [phone] [place] [address] [address] 2020-01-28 2020-01-28 Telephone Ajit [facility] [id number] 00:00:00 00:00:00 [facility] [id number] [place] [id number] Professio [phone] [place] [address] [address] 2020-01-26 2020-01-26 Refill Ajit [facility] [id number] 00:00:00 00:00:00 [facility] [id number] [place] [id number] Professio [phone] [place] [address] [address] 2020-01-24 2020-01-24 Refkathrin Fong [facility] [id number] 00:00:00 00:00:00 [facility] [id number] [place] [id number] Professio [phone] [place] [address] [address] 2020-01-19 2020-01-19 Refill Ajit, [facility] [id number] 00:00:00 00:00:00 [facility] [id number] [place] [id number] Professio [phone] [place] [address] [address] 2020-01-13 2020-01-13 Refkathrin Fong [facility] [id number] 00:00:00 00:00:00 [facility] [id number] [place] [id number] Professio [phone] [place] [address] [address] 2020-01-10 2020-01-10 Refkathrin Fong [facility] [id number] 00:00:00 00:00:00 [facility] [id number] [place] [id number] Professio [phone] [place] [address] [address] 2019-12-27 2019-12-27 Telemedici Ajit, [facility] [id number] 07:48:47 08:03:47 ne Visit [facility] [place] [id number] [place] [id number] Professio [phone] [place] [address] Building 2019-12-20 2019-12-20 Refill SOWMYA Fong [id number] 00:00:00 00:00:00 [facility] [id number] [place] [id number] Professio [phone] [place] [address] [address] 2019-12-13 2019-12-13 Telephone Ajit WVIRVIN [id number] 00:00:00 00:00:00 [facility] [id number] [place] [id number] Professio [phone] [place] [address] [address] 2019-12-04 2019-12-04 RefSOWMYA [place] [id number] 00:00:00 00:00:00 [facility] [id number] [place] [id number] Professio [phone] [place] [address] [address] 2019-11-24 2019-11-24 Office Ajit WVIRVIN [id number] 09:33:43 09:48:43 Visit [facility] [id number] [place] [id number] Professio [phone] [place] [address] Office [facility] One Results Test Description Test Time Test Comments Results Result Comments Source STOOL CULTURE + SHIGA TOXIN 2016-11-06 10:48:00 Test Item Value Reference Range Interpretation Comme nts CULTURE ([facility]) (test code = 1095) No Salmonella, Shigella or Camp ylobacter isolated Unable to test for Shiga Toxin 1 due to insufficient growth of specimen.Unable to test for Shiga Toxin 2 due to insufficient growth of specimen.STOOL PATH [id number] 13:49:00 Test Item Value Reference Range Interpretation Comments PATHOGEN EXAM CHARGED ([facility]) (test Done code = 2381) POCT-GLUCOSE [id number] 11:36:00 Test Item Value Reference Range Interpretation Comments POC-GLUCOSE METER 106 mg/dL 70-110 TESTED AT [facility] 6720 ([facility]) (test code = [place] 1538) [address] POCT-GLUCOSE [id number] 08:21:00 Test Item Value Reference Range Interpretation Comments POC-GLUCOSE METER 110 mg/dL 70-110 TESTED AT [facility] 6720 (BEAKER) (test code = [place] 1538) [address] [id number] 05:17:00 Test Item Value Reference Range Interpretation Comments PHOSPHORUS (BEAKER) (test code = 3.6 mg/dL 2.3-4.7 604) [id number] 05:17:00 Test Item Value Reference Range Interpretation Comments MAGNESIUM (BEAKER) (test code = 1.6 mg/dL 1.6-2.6 627) BASIC METABOLIC [id number] 05:17:00 Test Item Value Reference Range Interpretation Comments SODIUM (BEAKER) 136 meq/L 136-145 (test code = 381) POTASSIUM (BEAKER) 4.1 meq/L 3.5-5.1 (test code = 379) CHLORIDE (BEAKER) 108 meq/L 98-107 H (test code = 382) CO2 (BEAKER) (test 19 meq/L 22-29 L code = 355) BLOOD UREA NITROGEN 17 mg/dL 7-21 (BEAKER) (test code = 354) CREATININE (BEAKER) 0.87 mg/dL 0.57-1.25 (test code = 358) GLUCOSE RANDOM 89 mg/dL 70-105 (BEAKER) (test code = 652) CALCIUM (BEAKER) 8.9 mg/dL 8.4-10.2 (test code = 697) EGFR (BEAKER) (test 66 mL/min/1.73 ESTIMA MARION GFR IS code = 1092) sq m NOT ACCURATE CREATININE CLEARANCE IN PREDICTING GLOMERULAR FILTRATION RATE . ESTIMATED GFR I S NOT APPLICABLE FOR DIALYSIS PATIEN TS. CBC W/PLT COUNT & AUTO [id number] 05:09:00 Test Item Value Reference Range Interpretation Comments WHITE BLOOD CELL COUNT (BEAKER) 9.0 K/ L 4.0-10.0 (test code = 775) RED BLOOD CELL COUNT (BEAKER) 4.11 M/ L 4.00-5.00 (test code = 761) HEMOGLOBIN (BEAKER) (test code = 11.8 GM/DL 12.0-15.0 L 410) HEMATOCRIT (BEAKER) (test code = 37.1 % 36.0-45.0 411) MEAN CORPUSCULAR VOLUME (BEAKER) 90.2 fL 82.0-99.0 (test code = 753) MEAN CORPUSCULAR HEMOGLOBIN 28.8 pg 27.0-33.0 (BEAKER) (test code = 751) MEAN CORPUSCULAR HEMOGLOBIN CONC 32.0 GM/DL 32.0-36.0 (BEAKER) (test code = 752) RED CELL DISTRIBUTION WIDTH 12.5 % 10.3-14.2 (BEAKER) (test code = 412) PLATELET COUNT (BEAKER) (test 255 K/CU MM 150-430 code = 756) MEAN PLATELET VOLUME (BEAKER) 6.6 fL 6.5-10.5 (test code = 754) NUCLEATED RED BLOOD CELLS 0 /100 WBC 0-0 (BEAKER) (test code = 413) NEUTROPHILS RELATIVE PERCENT 63 % (BEAKER) (test code = 429) LYMPHOCYTES RELATIVE PERCENT 22 % (BEAKER) (test code = 430) MONOCYTES RELATIVE PERCENT 10 % (BEAKER) (test code = 431) EOSINOPHILS RELATIVE PERCENT 4 % (BEAKER) (test code = 432) BASOPHILS RELATIVE PERCENT 1 % (BEAKER) (test code = 437) NEUTROPHILS ABSOLUTE COUNT 5.66 K/ L 1.80-8.00 (BEAKER) (test code = 670) LYMPHOCYTES ABSOLUTE COUNT 1.98 K/ L 1.48-4.50 (BEAKER) (test code = 414) MONOCYTES ABSOLUTE COUNT (BEAKER) 0.90 K/ L 0.00-1.30 (test code = 415) EOSINOPHILS ABSOLUTE COUNT 0.39 K/ L 0.00-0.50 (BEAKER) (test code = 416) BASOPHILS ABSOLUTE COUNT (BEAKER) 0.07 K/ L 0.00-0.20 (test code = 417) 0.00PROTHROMBIN [id number] 04:57:00 Test Item Value Reference Range Interpretation Comments PROTIME (BEAKER) (test code = 15.7 seconds 11.7-14.7 H 759) INR (BEAKER) (test code = 370) 1.3 <=5.9 RECOMMENDED COUMADIN/WARFARIN INR THERAPY RANGESSTANDARD DOSE: 2.0 - 3.0 Includes: PROPHYLAXIS forvenous thrombosis, systemic embolization; TREATMENT for venous thrombosis and/or pulmonary embolus.HIGH RISK: Target INR is 2.5-3.5 for patients with mechanical heart valves.While on warfarin.POCT-GLUCOSE METER 2016-11-04 20:59:00 Test Item Value Reference Range Interpretation Comments POC-GLUCOSE METER 100 mg/dL 70-110 TESTED AT [place] [address] ([facility]) (test code = [facility] 1538) [address] BASIC METABOLIC [id number] 18:30:00 Test Item Value Reference Range Interpretation Comments SODIUM (BEAKER) 137 meq/L 136-145 (test code = 381) POTASSIUM (BEAKER) 4.1 meq/L 3.5-5.1 (test code = 379) CHLORIDE (BEAKER) 106 meq/L 98-107 (test code = 382) CO2 (BEAKER) (test 25 meq/L 22-29 code = 355) BLOOD UREA NITROGEN 18 mg/dL 7-21 (BEAKER) (test code = 354) CREATININE (BEAKER) 0.98 mg/dL 0.57-1.25 (test code = 358) GLUCOSE RANDOM 157 mg/dL 70-105 H (BEAKER) (test code = 652) CALCIUM (BEAKER) 9.3 mg/dL 8.4-10.2 (test code = 697) EGFR (BEAKER) (test 58 mL/min/1.73 ESTIMA MARION GFR IS code = 1092) sq m NOT ACCURATE CREATININE CLEARANCE IN PREDICTING GLOMERULAR FILTRATION RATE . ESTIMATED GFR I S NOT APPLICABLE FOR DIALYSIS PATIEN TS. POCT-GLUCOSE [id number] 15:40:00 Test Item Value Reference Range Interpretation Comments POC-GLUCOSE METER 95 mg/dL 70-110 TESTED AT [place] [address] ([facility]) (test code = [facility] [address] 1538) POCT-GLUCOSE [id number] 11:47:00 Test Item Value Reference Range Interpretation Comments POC-GLUCOSE METER 101 mg/dL 70-110 TESTED AT [place] [address] ([facility]) (test code = [facility] 1538) [address] POCT-GLUCOSE [id number] 07:32:00 Test Item Value Reference Range Interpretation Comments POC-GLUCOSE METER 88 mg/dL 70-110 TESTED AT [place] [address] (BEAKER) (test code = [place] [address] 1538) CBC W/PLT COUNT & AUTO [id number] 07:32:00 Test Item Value Reference Range Interpretation Comments WHITE BLOOD CELL COUNT (BEAKER) 9.1 K/ L 4.0-10.0 (test code = 775) RED BLOOD CELL COUNT (BEAKER) 4.02 M/ L 4.00-5.00 (test code = 761) HEMOGLOBIN (BEAKER) (test code = 12.2 GM/DL 12.0-15.0 410) HEMATOCRIT (BEAKER) (test code = 36.3 % 36.0-45.0 411) MEAN CORPUSCULAR VOLUME (BEAKER) 90.3 fL 82.0-99.0 (test code = 753) MEAN CORPUSCULAR HEMOGLOBIN 30.3 pg 27.0-33.0 (BEAKER) (test code = 751) MEAN CORPUSCULAR HEMOGLOBIN CONC 33.6 GM/DL 32.0-36.0 (BEAKER) (test code = 752) RED CELL DISTRIBUTION WIDTH 12.5 % 10.3-14.2 (BEAKER) (test code = 412) PLATELET COUNT (BEAKER) (test 265 K/CU MM 150-430 code = 756) MEAN PLATELET VOLUME (BEAKER) 6.7 fL 6.5-10.5 (test code = 754) NUCLEATED RED BLOOD CELLS 0 /100 WBC 0-0 (BEAKER) (test code = 413) NEUTROPHILS RELATIVE PERCENT 65 % (BEAKER) (test code = 429) LYMPHOCYTES RELATIVE PERCENT 21 % (BEAKER) (test code = 430) MONOCYTES RELATIVE PERCENT 9 % (BEAKER) (test code = 431) EOSINOPHILS RELATIVE PERCENT 4 % (BEAKER) (test code = 432) BASOPHILS RELATIVE PERCENT 1 % (BEAKER) (test code = 437) NEUTROPHILS ABSOLUTE COUNT 5.89 K/ L 1.80-8.00 (BEAKER) (test code = 670) LYMPHOCYTES ABSOLUTE COUNT 1.94 K/ L 1.48-4.50 (BEAKER) (test code = 414) MONOCYTES ABSOLUTE COUNT (BEAKER) 0.84 K/ L 0.00-1.30 (test code = 415) EOSINOPHILS ABSOLUTE COUNT 0.33 K/ L 0.00-0.50 (BEAKER) (test code = 416) BASOPHILS ABSOLUTE COUNT (BEAKER) 0.08 K/ L 0.00-0.20 (test code = 417) 0.00BASIC METABOLIC [id number] 06:23:00 Test Item Value Reference Range Interpretation Comments SODIUM (BEAKER) 137 meq/L 136-145 (test code = 381) POTASSIUM (BEAKER) 4.0 meq/L 3.5-5.1 (test code = 379) CHLORIDE (BEAKER) 107 meq/L 98-107 (test code = 382) CO2 (BEAKER) (test 19 meq/L 22-29 L code = 355) BLOOD UREA NITROGEN 17 mg/dL 7-21 (BEAKER) (test code = 354) CREATININE (BEAKER) 0.84 mg/dL 0.57-1.25 (test code = 358) GLUCOSE RANDOM 88 mg/dL 70-105 (BEAKER) (test code = 652) CALCIUM (BEAKER) 9.2 mg/dL 8.4-10.2 (test code = 697) EGFR (BEAKER) (test 69 mL/min/1.73 ESTIMA MARION GFR IS code = 1092) sq m NOT ACCURATE CREATININE CLEARANCE IN PREDICTING GLOMERULAR FILTRATION RATE . ESTIMATED GFR I S NOT APPLICABLE FOR DIALYSIS PATIEN TS. [id number] 06:23:00 Test Item Value Reference Range Interpretation Comments MAGNESIUM (BEAKER) (test code = 1.6 mg/dL 1.6-2.6 627) [id number] 06:23:00 Test Item Value Reference Range Interpretation Comments PHOSPHORUS (BEAKER) (test code = 3.6 mg/dL 2.3-4.7 604) PROTHROMBIN [id number] 06:15:00 Test Item Value Reference Range Interpretation Comments PROTIME (BEAKER) (test code = 14.9 seconds 11.7-14.7 H 759) INR (BEAKER) (test code = 370) 1.2 <=5.9 RECOMMENDED COUMADIN/WARFARIN INR THERAPY RANGESSTANDARD DOSE: 2.0 - 3.0 Includes: PROPHYLAXIS forvenous thrombosis, systemic embolization; TREATMENT for venous thrombosis and/or pulmonary embolus.HIGH RISK: Target INR is 2.5-3.5 for patients with mechanical heart valves.While on warfarin.POCT-GLUCOSE METER 2016-11-03 20:47:00 Test Item Value Reference Range Interpretation Comments POC-GLUCOSE METER 108 mg/dL 70-110 TESTED AT [place] [address] ([facility]) (test code = [place] 1538) [address] BASIC METABOLIC [id number] 18:12:00 Test Item Value Reference Range Interpretation Comments SODIUM (BEAKER) 136 meq/L 136-145 (test code = 381) POTASSIUM (BEAKER) 4.2 meq/L 3.5-5.1 (test code = 379) CHLORIDE (BEAKER) 105 meq/L 98-107 (test code = 382) CO2 (BEAKER) (test 23 meq/L 22-29 code = 355) BLOOD UREA NITROGEN 22 mg/dL 7-21 H (BEAKER) (test code = 354) CREATININE (BEAKER) 0.98 mg/dL 0.57-1.25 (test code = 358) GLUCOSE RANDOM 168 mg/dL 70-105 H (BEAKER) (test code = 652) CALCIUM (BEAKER) 9.4 mg/dL 8.4-10.2 (test code = 697) EGFR (BEAKER) (test 58 mL/min/1.73 ESTIMA MARION GFR IS code = 1092) sq m NOT ACCURATE CREATININE CLEARANCE IN PREDICTING GLOMERULAR FILTRATION RATE . ESTIMATED GFR I S NOT APPLICABLE FOR DIALYSIS PATIEN TS. POCT-GLUCOSE [id number] 17:53:00 Test Item Value Reference Range Interpretation Comments POC-GLUCOSE METER 165 mg/dL 70-110 H TESTED AT [facility] 67 ([facility]) (test code = [place] 1538) [id number] PROTHROMBIN [id number] 13:53:00 Test Item Value Reference Range Interpretation Comments PROTIME (BEAKER) (test code = 14.7 seconds 11.7-14.7 759) INR (BEAKER) (test code = 370) 1.2 <=5.9 RECOMMENDED COUMADIN/WARFARIN INR THERAPY RANGESSTANDARD DOSE: 2.0 - 3.0 Includes: PROPHYLAXIS forvenous thrombosis, systemic embolization; TREATMENT for venous thrombosis and/or pulmonary embolus.HIGH RISK: Target INR is 2.5-3.5 for patients with mechanical heart valves.POCT-GLUCOSE [id number] 11:49:00 Test Item Value Reference Range Interpretation Comments POC-GLUCOSE METER 120 mg/dL 70-110 H TESTED AT [facility] 6720 (BEAKER) (test code = [place] 1538) [address] POCT-GLUCOSE [id number] 07:58:00 Test Item Value Reference Range Interpretation Comments POC-GLUCOSE METER 94 mg/dL 70-110 TESTED AT [facility] 6720 (BEAKER) (test code = [place] [address] 1538) [id number] 07:23:00 Test Item Value Reference Range Interpretation Comments PHOSPHORUS (BEAKER) (test code = 3.6 mg/dL 2.3-4.7 604) [id number] 07:23:00 Test Item Value Reference Range Interpretation Comments MAGNESIUM (BEAKER) (test code = 1.8 mg/dL 1.6-2.6 627) BASIC METABOLIC [id number] 07:23:00 Test Item Value Reference Range Interpretation Comments SODIUM (BEAKER) 136 meq/L 136-145 (test code = 381) POTASSIUM (BEAKER) 3.9 meq/L 3.5-5.1 (test code = 379) CHLORIDE (BEAKER) 106 meq/L 98-107 (test code = 382) CO2 (BEAKER) (test 19 meq/L 22-29 L code = 355) BLOOD UREA NITROGEN 19 mg/dL 7-21 (BEAKER) (test code = 354) CREATININE (BEAKER) 0.91 mg/dL 0.57-1.25 (test code = 358) GLUCOSE RANDOM 84 mg/dL 70-105 (BEAKER) (test code = 652) CALCIUM (BEAKER) 9.6 mg/dL 8.4-10.2 (test code = 697) EGFR (BEAKER) (test 63 mL/min/1.73 ESTIMA MARION GFR IS code = 1092) sq m NOT ACCURATE CREATININE CLEARANCE IN PREDICTING GLOMERULAR FILTRATION RATE . ESTIMATED GFR I S NOT APPLICABLE FOR DIALYSIS PATIEN TS. CBC W/PLT COUNT & AUTO [id number] 07:15:00 Test Item Value Reference Range Interpretation Comments WHITE BLOOD CELL COUNT (BEAKER) 8.7 K/ L 4.0-10.0 (test code = 775) RED BLOOD CELL COUNT (BEAKER) 4.25 M/ L 4.00-5.00 (test code = 761) HEMOGLOBIN (BEAKER) (test code = 12.5 GM/DL 12.0-15.0 410) HEMATOCRIT (BEAKER) (test code = 38.6 % 36.0-45.0 411) MEAN CORPUSCULAR VOLUME (BEAKER) 90.9 fL 82.0-99.0 (test code = 753) MEAN CORPUSCULAR HEMOGLOBIN 29.5 pg 27.0-33.0 (BEAKER) (test code = 751) MEAN CORPUSCULAR HEMOGLOBIN CONC 32.4 GM/DL 32.0-36.0 (BEAKER) (test code = 752) RED CELL DISTRIBUTION WIDTH 12.5 % 10.3-14.2 (BEAKER) (test code = 412) PLATELET COUNT (BEAKER) (test 275 K/CU MM 150-430 code = 756) MEAN PLATELET VOLUME (BEAKER) 6.7 fL 6.5-10.5 (test code = 754) NUCLEATED RED BLOOD CELLS 0 /100 WBC 0-0 (BEAKER) (test code = 413) NEUTROPHILS RELATIVE PERCENT 63 % (BEAKER) (test code = 429) LYMPHOCYTES RELATIVE PERCENT 24 % (BEAKER) (test code = 430) MONOCYTES RELATIVE PERCENT 8 % (BEAKER) (test code = 431) EOSINOPHILS RELATIVE PERCENT 5 % (BEAKER) (test code = 432) BASOPHILS RELATIVE PERCENT 1 % (BEAKER) (test code = 437) NEUTROPHILS ABSOLUTE COUNT 5.47 K/ L 1.80-8.00 (BEAKER) (test code = 670) LYMPHOCYTES ABSOLUTE COUNT 2.05 K/ L 1.48-4.50 (BEAKER) (test code = 414) MONOCYTES ABSOLUTE COUNT (BEAKER) 0.73 K/ L 0.00-1.30 (test code = 415) EOSINOPHILS ABSOLUTE COUNT 0.40 K/ L 0.00-0.50 (BEAKER) (test code = 416) BASOPHILS ABSOLUTE COUNT (BEAKER) 0.07 K/ L 0.00-0.20 (test code = 417) 0.00POCT-GLUCOSE [id number] 20:44:00 Test Item Value Reference Range Interpretation Comments POC-GLUCOSE METER 164 mg/dL 70-110 H TESTED AT [facility] 6720 (BEAKER) (test code = [place] 1538) [address] BASIC METABOLIC [id number] 19:53:00 Test Item Value Reference Range Interpretation Comments SODIUM (BEAKER) 137 meq/L 136-145 (test code = 381) POTASSIUM (BEAKER) 4.1 meq/L 3.5-5.1 (test code = 379) CHLORIDE (BEAKER) 103 meq/L 98-107 (test code = 382) CO2 (BEAKER) (test 23 meq/L 22-29 code = 355) BLOOD UREA NITROGEN 20 mg/dL 7-21 (BEAKER) (test code = 354) CREATININE (BEAKER) 1.15 mg/dL 0.57-1.25 (test code = 358) GLUCOSE RANDOM 157 mg/dL 70-105 H (BEAKER) (test code = 652) CALCIUM (BEAKER) 9.8 mg/dL 8.4-10.2 (test code = 697) EGFR (BEAKER) (test 48 mL/min/1.73 ESTIMA MARION GFR IS code = 1092) sq m NOT ACCURATE CREATININE CLEARANCE IN PREDICTING GLOMERULAR FILTRATION RATE . ESTIMATED GFR I S NOT APPLICABLE FOR DIALYSIS PATIEN TS. POCT-GLUCOSE [id number] 17:25:00 Test Item Value Reference Range Interpretation Comments POC-GLUCOSE METER 97 mg/dL 70-110 TESTED AT [facility] 6720 ([facility]) (test code = RON[place] Mun[place] [facility] [address] 1538) CLOSTRIDIUM DIFFICILE TOXIN [id number] 15:24:00 Test Item Value Reference Range Interpretation Comments CLOSTRIDIUM DIFFICILE TOXIN, PCR Not Detected Not Detected ([facility]) (test code = 1525) This qualitative real-time polymerase chain reaction assay detects the tcdB gene, encoded on the C.difficile pathogenicity locus (PaLoc). The product of tcdB, toxin B, is a cytotoxin essential for causing C.difficile-associated disease (CDAD) and is found in virtually all toxigenic [...] of a positive result is not recommended.POCT-GLUCOSE [id number] 12:30:00 Test Item Value Reference Range Interpretation Comments POC-GLUCOSE METER 110 mg/dL 70-110 TESTED AT [place] [address] ([facility]) (test code = [place] 1538) [address] POCT-GLUCOSE [id number] 07:56:00 Test Item Value Reference Range Interpretation Comments POC-GLUCOSE METER 94 mg/dL 70-110 TESTED AT [place] [address] ([facility]) (test code = [place] [facility] [address] 1538) HEMOGLOBIN [id number] 07:48:00 Test Item Value Reference Range Interpretation Comments HEMOGLOBIN A1C (AKER) (test code = 5.4 % 4.3-6.1 368) CBC W/PLT COUNT & AUTO [id number] 06:42:00 Test Item Value Reference Range Interpretation Comments WHITE BLOOD CELL COUNT (BEAKER) 8.0 K/ L 4.0-10.0 (test code = 775) RED BLOOD CELL COUNT (BEAKER) 4.65 M/ L 4.00-5.00 (test code = 761) HEMOGLOBIN (BEAKER) (test code = 13.6 GM/DL 12.0-15.0 410) HEMATOCRIT (BEAKER) (test code = 41.6 % 36.0-45.0 411) MEAN CORPUSCULAR VOLUME (AKER) 89.3 fL 82.0-99.0 (test code = 753) MEAN CORPUSCULAR HEMOGLOBIN 29.2 pg 27.0-33.0 (BEAKER) (test code = 751) MEAN CORPUSCULAR HEMOGLOBIN CONC 32.7 GM/DL 32.0-36.0 (BEAKER) (test code = 752) RED CELL DISTRIBUTION WIDTH 13.6 % 10.3-14.2 (BEAKER) (test code = 412) PLATELET COUNT (BEAKER) (test 247 K/CU MM 150-430 code = 756) MEAN PLATELET VOLUME (BEAKER) 6.9 fL 6.5-10.5 (test code = 754) NUCLEATED RED BLOOD CELLS 0 /100 WBC 0-0 (BEAKER) (test code = 413) NEUTROPHILS RELATIVE PERCENT 68 % (BEAKER) (test code = 429) LYMPHOCYTES RELATIVE PERCENT 18 % (BEAKER) (test code = 430) MONOCYTES RELATIVE PERCENT 10 % (BEAKER) (test code = 431) EOSINOPHILS RELATIVE PERCENT 3 % (BEAKER) (test code = 432) BASOPHILS RELATIVE PERCENT 1 % (BEAKER) (test code = 437) NEUTROPHILS ABSOLUTE COUNT 5.42 K/ L 1.80-8.00 (BEAKER) (test code = 670) LYMPHOCYTES ABSOLUTE COUNT 1.47 K/ L 1.48-4.50 L (BEAKER) (test code = 414) MONOCYTES ABSOLUTE COUNT (BEAKER) 0.76 K/ L 0.00-1.30 (test code = 415) EOSINOPHILS ABSOLUTE COUNT 0.27 K/ L 0.00-0.50 (BEAKER) (test code = 416) BASOPHILS ABSOLUTE COUNT (BEAKER) 0.06 K/ L 0.00-0.20 (test code = 417) [id number] 06:06:00 Test Item Value Reference Range Interpretation Comments PHOSPHORUS (BEAKER) (test code = 3.7 mg/dL 2.3-4.7 604) [id number] 06:06:00 Test Item Value Reference Range Interpretation Comments MAGNESIUM (BEAKER) (test code = 1.4 mg/dL 1.6-2.6 L 627) BASIC METABOLIC [id number] 06:06:00 Test Item Value Reference Range Interpretation Comments SODIUM (BEAKER) 138 meq/L 136-145 (test code = 381) POTASSIUM (BEAKER) 3.3 meq/L 3.5-5.1 L (test code = 379) CHLORIDE (BEAKER) 103 meq/L 98-107 (test code = 382) CO2 (BEAKER) (test 22 meq/L 22-29 code = 355) BLOOD UREA NITROGEN 22 mg/dL 7-21 H (BEAKER) (test code = 354) CREATININE (BEAKER) 1.01 mg/dL 0.57-1.25 (test code = 358) GLUCOSE RANDOM 91 mg/dL 70-105 (BEAKER) (test code = 652) CALCIUM (BEAKER) 9.6 mg/dL 8.4-10.2 (test code = 697) EGFR (BEAKER) (test 56 mL/min/1.73 ESTIMA MARION GFR IS code = 1092) sq m NOT ACCURATE CREATININE CLEARANCE IN PREDICTING GLOMERULAR FILTRATION RATE . ESTIMATED GFR I S NOT APPLICABLE FOR DIALYSIS PATIEN TS. POCT-GLUCOSE [id number] 21:04:00 Test Item Value Reference Range Interpretation Comments POC-GLUCOSE METER 100 mg/dL 70-110 TESTED AT [place] [address] ([facility]) (test code = [facility] [place] 1538) [address] BASIC METABOLIC [id number] 20:03:00 Test Item Value Reference Range Interpretation Comments SODIUM (BEAKER) 138 meq/L 136-145 (test code = 381) POTASSIUM (BEAKER) 3.8 meq/L 3.5-5.1 (test code = 379) CHLORIDE (BEAKER) 102 meq/L 98-107 (test code = 382) CO2 (BEAKER) (test 20 meq/L 22-29 L code = 355) BLOOD UREA NITROGEN 26 mg/dL 7-21 H (BEAKER) (test code = 354) CREATININE (BEAKER) 1.16 mg/dL 0.57-1.25 (test code = 358) GLUCOSE RANDOM 99 mg/dL 70-105 (BEAKER) (test code = 652) CALCIUM (BEAKER) 10.0 mg/dL 8.4-10.2 (test code = 697) EGFR (BEAKER) (test 48 mL/min/1.73 ESTIMA MARION GFR IS code = 1092) sq m NOT ACCURATE CREATININE CLEARANCE IN PREDICTING GLOMERULAR FILTRATION RATE . ESTIMATED GFR I S NOT APPLICABLE FOR DIALYSIS PATIEN TS. POCT-GLUCOSE [id number] 15:45:00 Test Item Value Reference Range Interpretation Comments POC-GLUCOSE METER 130 mg/dL 70-110 H TESTED AT [place] [address] ([facility]) (test code = [facility] [place] 1538) [address] POCT-GLUCOSE [id number] 11:20:00 Test Item Value Reference Range Interpretation Comments POC-GLUCOSE METER 102 mg/dL 70-110 TESTED AT [place] [address] ([facility]) (test code = [facility] [place] 1538) [address] HEMOGLOBIN [id number] 08:50:00 Test Item Value Reference Range Interpretation Comments HEMOGLOBIN A1C (BEAKER) (test code = 5.6 % 4.3-6.1 368) [id number] 05:44:00 Test Item Value Reference Range Interpretation Comments PHOSPHORUS (BEAKER) (test code = 3.4 mg/dL 2.3-4.7 604) [id number] 05:44:00 Test Item Value Reference Range Interpretation Comments MAGNESIUM (BEAKER) (test code = 1.7 mg/dL 1.6-2.6 627) BASIC METABOLIC [id number] 05:44:00 Test Item Value Reference Range Interpretation Comments SODIUM (BEAKER) 138 meq/L 136-145 (test code = 381) POTASSIUM (BEAKER) 3.9 meq/L 3.5-5.1 (test code = 379) CHLORIDE (BEAKER) 104 meq/L 98-107 (test code = 382) CO2 (BEAKER) (test 20 meq/L 22-29 L code = 355) BLOOD UREA NITROGEN 27 mg/dL 7-21 H (BEAKER) (test code = 354) CREATININE (BEAKER) 1.19 mg/dL 0.57-1.25 (test code = 358) GLUCOSE RANDOM 87 mg/dL 70-105 (BEAKER) (test code = 652) CALCIUM (BEAKER) 9.9 mg/dL 8.4-10.2 (test code = 697) EGFR (BEAKER) (test 46 mL/min/1.73 ESTIMA MARION GFR IS code = 1092) sq m NOT ACCURATE CREATININE CLEARANCE IN PREDICTING GLOMERULAR FILTRATION RATE . ESTIMATED GFR I S NOT APPLICABLE FOR DIALYSIS PATIEN TS. CBC W/PLT COUNT & AUTO [id number] 05:39:00 Test Item Value Reference Range Interpretation Comments WHITE BLOOD CELL COUNT (BEAKER) 10.3 K/ L 4.0-10.0 H (test code = 775) RED BLOOD CELL COUNT (BEAKER) 4.36 M/ L 4.00-5.00 (test code = 761) HEMOGLOBIN (BEAKER) (test code = 12.9 GM/DL 12.0-15.0 410) HEMATOCRIT (BEAKER) (test code = 39.0 % 36.0-45.0 411) MEAN CORPUSCULAR VOLUME (BEAKER) 89.3 fL 82.0-99.0 (test code = 753) MEAN CORPUSCULAR HEMOGLOBIN 29.6 pg 27.0-33.0 (BEAKER) (test code = 751) MEAN CORPUSCULAR HEMOGLOBIN CONC 33.2 GM/DL 32.0-36.0 (BEAKER) (test code = 752) RED CELL DISTRIBUTION WIDTH 13.4 % 10.3-14.2 (BEAKER) (test code = 412) PLATELET COUNT (BEAKER) (test 257 K/CU MM 150-430 code = 756) MEAN PLATELET VOLUME (BEAKER) 6.8 fL 6.5-10.5 (test code = 754) NUCLEATED RED BLOOD CELLS 0 /100 WBC 0-0 (BEAKER) (test code = 413) NEUTROPHILS RELATIVE PERCENT 73 % (BEAKER) (test code = 429) LYMPHOCYTES RELATIVE PERCENT 15 % (BEAKER) (test code = 430) MONOCYTES RELATIVE PERCENT 9 % (BEAKER) (test code = 431) EOSINOPHILS RELATIVE PERCENT 3 % (BEAKER) (test code = 432) BASOPHILS RELATIVE PERCENT 1 % (BEAKER) (test code = 437) NEUTROPHILS ABSOLUTE COUNT 7.48 K/ L 1.80-8.00 (BEAKER) (test code = 670) LYMPHOCYTES ABSOLUTE COUNT 1.49 K/ L 1.48-4.50 (BEAKER) (test code = 414) MONOCYTES ABSOLUTE COUNT (BEAKER) 0.94 K/ L 0.00-1.30 (test code = 415) EOSINOPHILS ABSOLUTE COUNT 0.30 K/ L 0.00-0.50 (BEAKER) (test code = 416) BASOPHILS ABSOLUTE COUNT (BEAKER) 0.07 K/ L 0.00-0.20 (test code = 417) 0.00POCT-GLUCOSE [id number] 23:15:00 Test Item Value Reference Range Interpretation Comments POC-GLUCOSE METER 83 mg/dL 70-110 TESTED AT [place] [address] ([facility]) (test code = [facility] [address]38) POCT-GLUCOSE [id number] 17:19:00 Test Item Value Reference Range Interpretation Comments POC-GLUCOSE METER 82 mg/dL 70-110 TESTED AT [place] [address] ([facility]) (test code = [facility] [address] 1538) POCT-GLUCOSE [id number] 12:57:00 Test Item Value Reference Range Interpretation Comments POC-GLUCOSE METER 124 mg/dL 70-110 H TESTED AT [facility] 6720 (BEAKER) (test code = [place] 1538) [address] HEMOGLOBIN [id number] 10:12:00 Test Item Value Reference Range Interpretation Comments HEMOGLOBIN A1C (BEAKER) (test code = 5.6 % 4.3-6.1 368) CBC W/PLT COUNT & AUTO [id number] 06:14:00 Test Item Value Reference Range Interpretation Comments WHITE BLOOD CELL COUNT (BEAKER) 12.1 K/ L 4.0-10.0 H (test code = 775) RED BLOOD CELL COUNT (BEAKER) 4.29 M/ L 4.00-5.00 (test code = 761) HEMOGLOBIN (BEAKER) (test code = 12.5 GM/DL 12.0-15.0 410) HEMATOCRIT (BEAKER) (test code = 38.8 % 36.0-45.0 411) MEAN CORPUSCULAR VOLUME (BEAKER) 90.4 fL 82.0-99.0 (test code = 753) MEAN CORPUSCULAR HEMOGLOBIN 29.2 pg 27.0-33.0 (BEAKER) (test code = 751) MEAN CORPUSCULAR HEMOGLOBIN CONC 32.3 GM/DL 32.0-36.0 (BEAKER) (test code = 752) RED CELL DISTRIBUTION WIDTH 12.5 % 10.3-14.2 (BEAKER) (test code = 412) PLATELET COUNT (BEAKER) (test 263 K/CU MM 150-430 code = 756) MEAN PLATELET VOLUME (BEAKER) 7.3 fL 6.5-10.5 (test code = 754) NUCLEATED RED BLOOD CELLS 0 /100 WBC 0-0 (BEAKER) (test code = 413) NEUTROPHILS RELATIVE PERCENT 73 % (BEAKER) (test code = 429) LYMPHOCYTES RELATIVE PERCENT 15 % (BEAKER) (test code = 430) MONOCYTES RELATIVE PERCENT 10 % (BEAKER) (test code = 431) EOSINOPHILS RELATIVE PERCENT 2 % (BEAKER) (test code = 432) BASOPHILS RELATIVE PERCENT 0 % (BEAKER) (test code = 437) NEUTROPHILS ABSOLUTE COUNT 8.87 K/ L 1.80-8.00 H (BEAKER) (test code = 670) LYMPHOCYTES ABSOLUTE COUNT 1.79 K/ L 1.48-4.50 (BEAKER) (test code = 414) MONOCYTES ABSOLUTE COUNT (BEAKER) 1.18 K/ L 0.00-1.30 (test code = 415) EOSINOPHILS ABSOLUTE COUNT 0.22 K/ L 0.00-0.50 (BEAKER) (test code = 416) BASOPHILS ABSOLUTE COUNT (BEAKER) 0.04 K/ L 0.00-0.20 (test code = 417) [id number] 05:43:00 Test Item Value Reference Range Interpretation Comments PHOSPHORUS (BEAKER) (test code = 4.1 mg/dL 2.3-4.7 604) [id number] 05:43:00 Test Item Value Reference Range Interpretation Comments MAGNESIUM (BEAKER) (test code = 1.9 mg/dL 1.6-2.6 627) BASIC METABOLIC [id number] 05:43:00 Test Item Value Reference Range Interpretation Comments SODIUM (BEAKER) 137 meq/L 136-145 (test code = 381) POTASSIUM (BEAKER) 3.8 meq/L 3.5-5.1 (test code = 379) CHLORIDE (BEAKER) 102 meq/L 98-107 (test code = 382) CO2 (BEAKER) (test 24 meq/L 22-29 code = 355) BLOOD UREA NITROGEN 29 mg/dL 7-21 H (BEAKER) (test code = 354) CREATININE (BEAKER) 1.28 mg/dL 0.57-1.25 H (test code = 358) GLUCOSE RANDOM 100 mg/dL 70-105 (BEAKER) (test code = 652) CALCIUM (BEAKER) 9.9 mg/dL 8.4-10.2 (test code = 697) EGFR (BEAKER) (test 43 mL/min/1.73 ESTIMA MARION GFR IS code = 1092) sq m NOT ACCURATE CREATININE CLEARANCE IN PREDICTING GLOMERULAR FILTRATION RATE . ESTIMATED GFR I S NOT APPLICABLE FOR DIALYSIS PATIEN TS. POCT-GLUCOSE [id number] 05:12:00 Test Item Value Reference Range Interpretation Comments POC-GLUCOSE METER 89 mg/dL 70-110 TESTED AT [facility] 6720 (BEAKER) (test code = [place] [address] 1538) POCT-GLUCOSE [id number] 00:07:00 Test Item Value Reference Range Interpretation Comments POC-GLUCOSE METER 92 mg/dL 70-110 TESTED AT [facility] 6720 (BEAKER) (test code = [place] [id number]) [id number] 23:51:00 Test Item Value Reference Range Interpretation Comments PROTIME (BEAKER) (test code = 15.5 seconds 11.7-14.7 H 759) INR (BEAKER) (test code = 370) 1.2 <=5.9 PARTIAL THROMBOPLASTIN TIME 36.5 seconds 22.5-36.0 H (BEAKER) (test code = 760) RECOMMENDED COUMADIN/WARFARIN INR THERAPY RANGESSTANDARD DOSE: 2.0 - 3.0 Includes: PROPHYLAXIS forvenous thrombosis, systemic embolization; TREATMENT for venous thrombosis and/or pulmonary embolus.HIGH RISK: Target INR is 2.5-3.5 for patients with mechanical heart valves.[id number] 23:49:00 Test Item Value Reference Range Interpretation Comments MAGNESIUM (BEAKER) 1.9 mg/dL 1.6-2.6 Specimen slightly (test code = 627) hemolyzed [id number] 23:49:00 Test Item Value Reference Range Interpretation Comments PHOSPHORUS (BEAKER) 3.4 mg/dL 2.3-4.7 Specimen slightly (test code = 604) hemolyzed BASIC METABOLIC [id number] 23:49:00 Test Item Value Reference Range Interpretation Comments SODIUM (BEAKER) 136 meq/L 136-145 (test code = 381) POTASSIUM (BEAKER) 4.1 meq/L 3.5-5.1 Specimen slightly (test code = 379) hemolyzed CHLORIDE (BEAKER) 100 meq/L 98-107 (test code = 382) CO2 (BEAKER) (test 21 meq/L 22-29 L code = 355) BLOOD UREA NITROGEN 28 mg/dL 7-21 H (BEAKER) (test code = 354) CREATININE (BEAKER) 1.31 mg/dL 0.57-1.25 H Specimen slightly (test code = 358) hemolyzed GLUCOSE RANDOM 98 mg/dL 70-105 (BEAKER) (test code = 652) CALCIUM (BEAKER) 9.9 mg/dL 8.4-10.2 (test code = 697) EGFR (BEAKER) (test 41 mL/min/1.73 ESTIMA MARION GFR IS code = 1092) sq m NOT ACCURATE CREATININE CLEARANCE IN PREDICTING GLOMERULAR FILTRATION RATE . ESTIMATED GFR I S NOT APPLICABLE FOR DIALYSIS PATIEN TS. CBC W/PLT COUNT & AUTO [id number] 23:38:00 Test Item Value Reference Range Interpretation Comments WHITE BLOOD CELL COUNT (BEAKER) 13.2 K/ L 4.0-10.0 H (test code = 775) RED BLOOD CELL COUNT (BEAKER) 4.26 M/ L 4.00-5.00 (test code = 761) HEMOGLOBIN (BEAKER) (test code = 13.3 GM/DL 12.0-15.0 410) HEMATOCRIT (BEAKER) (test code = 38.5 % 36.0-45.0 411) MEAN CORPUSCULAR VOLUME (BEAKER) 90.4 fL 82.0-99.0 (test code = 753) MEAN CORPUSCULAR HEMOGLOBIN 31.2 pg 27.0-33.0 (BEAKER) (test code = 751) MEAN CORPUSCULAR HEMOGLOBIN CONC 34.5 GM/DL 32.0-36.0 (BEAKER) (test code = 752) RED CELL DISTRIBUTION WIDTH 12.6 % 10.3-14.2 (BEAKER) (test code = 412) PLATELET COUNT (BEAKER) (test 244 K/CU MM 150-430 code = 756) MEAN PLATELET VOLUME (BEAKER) 7.6 fL 6.5-10.5 (test code = 754) NUCLEATED RED BLOOD CELLS 0 /100 WBC 0-0 (BEAKER) (test code = 413) NEUTROPHILS RELATIVE PERCENT 78 % (BEAKER) (test code = 429) LYMPHOCYTES RELATIVE PERCENT 11 % (BEAKER) (test code = 430) MONOCYTES RELATIVE PERCENT 9 % (BEAKER) (test code = 431) EOSINOPHILS RELATIVE PERCENT 1 % (BEAKER) (test code = 432) BASOPHILS RELATIVE PERCENT 0 % (BEAKER) (test code = 437) NEUTROPHILS ABSOLUTE COUNT 10.40 K/ L 1.80-8.00 H (BEAKER) (test code = 670) LYMPHOCYTES ABSOLUTE COUNT 1.49 K/ L 1.48-4.50 (BEAKER) (test code = 414) MONOCYTES ABSOLUTE COUNT (BEAKER) 1.18 K/ L 0.00-1.30 (test code = 415) EOSINOPHILS ABSOLUTE COUNT 0.12 K/ L 0.00-0.50 (BEAKER) (test code = 416) BASOPHILS ABSOLUTE COUNT (BEAKER) 0.06 K/ L 0.00-0.20 (test code = 417) 0.00URINALYSIS W/ [id number] 22:57:00 Test Item Value Reference Range Interpretation Comments COLOR (BEAKER) (test code = 470) Yellow CLARITY (BEAKER) (test code = Cloudy 469) SPECIFIC GRAVITY UA (BEAKER) 1.013 1.001-1.035 (test code = 468) PH UA (BEAKER) (test code = 467) 5.5 5.0-8.0 PROTEIN UA (BEAKER) (test code = 30 mg/dL Negative A 464) GLUCOSE UA (BEAKER) (test code = Negative Negative 365) KETONES UA (BEAKER) (test code = Negative Negative 371) BILIRUBIN UA (BEAKER) (test code Negative Negative = 462) BLOOD UA (BEAKER) (test code = Moderate Negative A 461) NITRITE UA (BEAKER) (test code = Negative Negative 465) LEUKOCYTE ESTERASE UA (BEAKER) Large Negative A (test code = 466) UROBILINOGEN UA (BEAKER) (test 2.0 mg/dL 0.2-1.0 H code = 463) RBC UA (BEAKER) (test code = 34 /HPF 519) WBC UA (BEAKER) (test code = > /HPF 520) MUCUS (BEAKER) (test code = Rare 1574) SOURCE(BEAKER) (test code = Urine, Perez 3840)
--- OUTSIDE RECORDS SUMMARY | 2020-04-04 16:55 | XMS REPORT | Summary of Care ---
:1955 Author Organization [facility] Address [address] [place] [address] Care Team Providers Name Role Phone MD Ajit Primary Care Provider MD Ajit Unavailable Reason for Visit Reason Comments Refill Request Encounter Details Date Type Department Care Team Description 01/10/2020 Refill [facility] Family Medicine Arthur Stiles MD Refill Request - [address] [address] [place] [address] [phone] Allergies No Known Allergiesdocumented as of this encounter (statuses as of 01/11/2020) Medications Medication Sig Dispensed Refills Start End Status Date Date colchicine 0.6 mg Take 1 tablet 12 tablet 0 06/08/20 Active tablet by mouth every 18 other day. meloxicam (MOBIC) 15 mg Take 15 mg by 0 Active tablet mouth. ULORIC 40 mg tablet Take 40 mg by 5 09/18/19 Active mouth daily. 19 miSOPROStol 200 mcg Take 1 tablet 2 tablet 0 10/23/19 Active tablet by mouth 2 19 (two) times daily. Take one tab the night before scheduled procedure and one tab the morning of. metoprolol succinate XL Take 1 tablet 90 tablet 3 03/11/20 Active 50 mg 24 hr by mouth 19 tabletIndications: daily. Essential hypertension, benign furosemide 20 mg Take 1 tablet 30 tablet 0 06/02/20 Active tabletIndications: by mouth 19 Essential hypertension, daily. benign hydroCHLOROthiazide TAKE ONE 90 capsule 0 06/16/20 Active 12.5 mg capsule CAPSULE BY 19 MOUTH ONCE A DAY potassium citrate 10 Take 1 tablet 30 tablet 0 06/24/20 Active mEq (1,080 mg) SR by mouth 19 tabletIndications: daily. Kidney stone cephALEXin 500 mg 0 06/22/20 Ac tive capsule 19 clindamycin 300 mg 0 06/22/20 A ctive capsule 19 POTASSIUM CITRATE 10 TAKE 1 TABLET 30 tablet 0 07/27/20 Active mEq (1,080 mg) SR BY MOUTH EVERY 19 tabletIndications: DAY Kidney stone LEVOTHYROXINE 200 mcg TAKE 1 TABLET 90 tablet 0 08/06/20 Active tablet BY MOUTH EVERY 19 DAY IN THE MORNING ALLOPURINOL 100 mg TAKE 1 TABLET 90 tablet 1 08/09/20 Active tabletIndications: BY MOUTH EVERY 19 Chronic gout without DAY tophus, unspecified cause, unspecified site citalopram 20 mg Take 1 tablet 90 tablet 1 08/10/20 Active tabletIndications: by mouth 19 Anxiety daily. FUROSEMIDE 20 mg TAKE 1 TABLET 30 tablet 0 08/10/20 Active tabletIndications: BY MOUTH EVERY 19 Essential hypertension, DAY benign albuterol 2.5 mg /3 mL Inhale 3 mL 100 Vial 1 08/27/20 Active (0.083 %) nebulizer every 6 (six) 19 solutionIndications: hours as Uncomplicated asthma, needed for unspecified asthma Wheezing or severity, unspecified Shortness of whether persistent, Breath. Wheezing METFORMIN 500 mg TAKE 1 TABLET 180 tablet 1 09/29/19 Active tabletIndications: Type BY MOUTH TWICE 20 2 diabetes mellitus A DAY WITH without complication, MEALS without long-term current use of insulin VALSARTAN-HYDROCHLOROTH TAKE 1 TABLET 90 tablet 1 09/29/19 Active IAZIDE 320-25 mg per BY MOUTH EVERY 20 tabletIndications: DAY Essential hypertension, benign Compressor, For DIRECTED 4 1 Each 0 10/21/19 Active Nebulizer (PULMO-AIDE TIMES A DAY 20 COMPRESSOR) WITH NEBULIZER DeviIndications: MEDICATION Uncomplicated asthma, unspecified asthma severity, unspecified whether persistent tiZANidine 4 mg TAKE 1 TABLET 30 tablet 2 10/21/19 Active tabletIndications: BY MOUTH EVERY 20 Chronic low back pain 6 HOURS NEEDED FOR PAIN etodolac 400 mg Take 1 tablet 60 tablet 2 10/21/19 Active tabletIndications: by mouth 2 20 Chronic low back pain, (two) times unspecified back pain daily. laterality, unspecified whether sciatica present XARELTO 20 mg TAKE 1 TABLET 90 tablet 0 10/22/19 Ac tive tabletIndications: PE BY MOUTH EVERY 20 (pulmonary DAY thromboembolism) albuterol 90 TAKE 2 PUFFS 25.5 Inhaler 6 11/08/19 A ctive mcg/actuation BY MOUTH EVERY 20 inhalerIndications: 6 HOURS Uncomplicated asthma, NEEDED FOR unspecified asthma WHEEZE OR FOR severity, unspecified SHORTNESS OF whether persistent BREATH LEVOTHYROXINE 175 mcg TAKE 1 TABLET 90 tablet 0 11/08/19 Active tabletIndications: BY MOUTH EVERY 20 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 Ferrous Fumarate-Folic Take 1 tablet 90 tablet 1 11/24/19 Active Acid (HEMATINIC/FOLIC by mouth 20 ACID) 324 mg (106 mg daily. iron)-1 mg TabIndications: Anemia, unspecified type amoxicillin-clavulanate Take 1 tablet 20 tablet 0 11/24/19 Active (AUGMENTIN) 875-125 mg by mouth 2 20 per tabletIndications: (two) times Bronchitis daily. PREGABALIN 150 mg TAKE 1 CAPSULE 60 capsule 1 12/20/19 Active capsuleIndications: BY MOUTH TWICE 20 Chronic low back pain, A DAY unspecified back pain laterality, unspecified whether sciatica present zolpidem 10 mg Take 1 tablet 30 tablet 5 12/27/19 A ctive tabletIndications: by mouth at 20 Insomnia, unspecified bedtime as type needed for Insomnia. HYDROcodone-acetaminoph Take 1 tablet 150 tablet 0 12/27/19 Active en 10-325 mg by mouth every 20 tabletIndications: 4 (four) hours Chronic low back pain as needed for Pain (scale 4-6) or Pain (scale 7-10). ALPRAZolam 1 mg Take 1 tablet 60 tablet 5 12/27/19 Active tabletIndications: by mouth 3 20 Anxiety (three) times daily as needed for Other (anxiety). SULFAMETHOXAZOLE-TRIMET TAKE 1 TABLET 20 tablet 0 01/11/20 Active HOPRIM 800-160 mg per BY MOUTH TWICE 20 tabletIndications: A DAY Urinary tract infection without hematuria, site unspecified sulfamethoxazole-trimet Take 1 tablet 20 tablet 0 10/21/19 Discontinued hoprim (BACTRIM DS) by mouth 2 20 020 800-160 mg per (two) times tabletIndications: daily. Urinary tract infection without hematuria, site unspecified documented as of this encounter (statuses as of 01/11/2020) Active Problems Problem Noted Date Staghorn calculus 11/16/2018 Kidney stone 10/13/2018 Overview: Added automatically from request for manda mancia [id number] Chronic gout without tophus, unspecified cause, unspec ified site 10/01/2018 Vaginal bleeding 05/05/2018 Postmenopausal vaginal bleeding 05/05/2018 Recurrent joint pain 05/05/2018 Dehydration 01/18/2018 Fistula 12/31/2017 Overview: Added automatically from request for manda mancia [id number] Hypotension 12/25/2017 Morbid obesity with body mass index of 40.0-49.9 12/25 Chronic low back pain 08/26/2017 Fistula, bladder 03/14/2017 Anxiety 03/14/2017 Insomnia, unspecified type 03/14/2017 Osteoarthritis, unspecified osteoarthritis type, unspe cified site 01/15/2017 Dysuria 06/22/2015 Bed sore, stage 2 06/22/2015 Lump or mass in breast 06/22/2015 Dyspareunia 06/22/2015 Well woman exam with routine gynecological exam 2014 Cervical polyp 06/22/2015 Pyelonephritis 06/25/2007 Overview: ICD10 Diagnosis Term Account [employer] Utility Type 2 diabetes mellitus with stage 3 chronic kidney d isease, without 06/25/2007 long-term current use of insulin Essential hypertension, benign 06/25/2007 Hypothyroidism 06/25/2007 Overview: ICD10 Diagnosis Term Account [employer] Utility documented as of this encounter (statuses as of 01/11/2020) Immunizations Name Administration Dates Next Due Influenza Virus Vaccine Quad .5 mL IM 6+ MO 10/21/2018 Influenza Virus Vaccine Quad ID 18-64 YRS 07/06/2015 Influenza Virus Vaccine Quad IM 3+ YRS 06/23/2017 Tdap 10/21/2018 documented as of this encounter Social History Tobacco Use Types Packs/Day Years Used Date Never Smoker Smokeless Tobacco: Never Used Alcohol Use Drinks/Week oz/Week Comments Yes 1 Glasses of wine 1.0 Wine ocassionally 0 Standard drinks or equivalent Sex Assigned at Date Recorded Not on file Job Start Date Occupation Industry Not on file Not on file Not on file Travel History Travel Start Travel End No recent travel history available. documented as of this encounter Last Filed Vital Signs Not on filedocumented in this encounter Plan of Treatment Health Maintenance Due Date Last Done Comments PNEUMOCOCCAL 0-64 YEARS 1962 COMBINED SERIES (1 of 1 - PPSV23) EYE EXAM 1966 FOOT EXAM 1974 Zoster Recombinant Vaccine 2006 (SHINGRIX) (1 of 2) URINE MICROALBUMIN 04/22/2007 04/22/2006 INFLUENZA VACCINE (#1) 2019 10/21/2018, 06/23/2017 HgA1C 11/10/2019 05/10/2019, 08/26/2017, 03/14/2017, Additional history exists CREATININE (SERUM) 05/10/2020 05/10/2019, 11/17/2018, 11/17/2018, Additional history exists LDL-C 05/10/2020 05/10/2019, 08/26/2017, 03/14/2017, Additional history exists PAP SMEAR 06/22/2020 06/22/2015 Breast Cancer Screening 11/11/2020 Postpone d from (MAMMOGRAM) 1996 (Refu sed) COLONOSCOPY 12/03/2027 12/02/2017 DTaP,Tdap,and Td Vaccines 10/21/2028 10/21/2018 (2 - Td) HEPATITIS C (HCV) SCREEN Completed 01/20/2018, 07/06/2015 documented as of this encounter Implants Implanted Type Area Rn Oncology Clinical Device Shelf Expiration Model / Identifier Date Serial / Lot Ivc Filter Janice Femoral Bard #[id number] - S0 FILTER Groin Bar d 10/15/2020 [id number] / Implanted: Qty: 1 on 01/20/2018 by Karl Damon MD at [facility] 0 / [id number] documented as of this encounter Results Not on filedocumented in this encounter Visit Diagnoses Diagnosis Urinary tract infection without hematuri a, site unspecified documented in this encounter Insurance Payer Benefit Plan / Subscriber ID Effective Dates Phone Addre ss Type Group CIGNA CIGNA II [id number] 2003-[facility] [id number] 2019-[place] Medicare Adv PLUS PLUS t HMO CLASSIC/VALUE documented as of this encounter
--- OUTSIDE RECORDS SUMMARY | 2020-04-04 16:56 | XMS REPORT | Summary of Care ---
:1955 Author Organization [facility] Address [address] [place] [address] Care Team Providers Name Role Phone MD Ajit Primary Care Provider MD Ajit Unavailable Reason for Visit Reason Comments Refill Request Encounter Details Date Type Department Care Team Description 01/13/2020 Refill [facility] Family Medicine Arthur Stiles MD Refill Request - [address] [address] [place] [address] [phone] Allergies No Known Allergiesdocumented as of this encounter (statuses as of 01/13/2020) Medications Medication Sig Dispensed Refills Start End [...] pain daily. laterality, unspecified whether sciatica present albuterol 90 TAKE 2 PUFFS 25.5 Inhaler [...] Urinary tract infection without hematuria, site unspecified XARELTO 20 mg TAKE 1 TABLET 90 tablet 0 01/13/20 Ac tive tabletIndications: PE BY MOUTH EVERY 20 (pulmonary DAY thromboembolism) XARELTO 20 mg TAKE 1 TABLET 90 tablet 0 10/22/19 Di scontinued tabletIndications: PE BY MOUTH EVERY 20 020 (pulmonary DAY thromboembolism) documented as of this encounter (statuses as of 01/13/2020) Active Problems Problem Noted Date Staghorn calculus 11/16/2018 Kidney stone 10/13/2018 Overview: Added automatically from request for manda mancia [id number] Chronic gout without tophus, unspecified cause, unspec ified site 10/01/2018 Vaginal bleeding 05/05/2018 Postmenopausal vaginal bleeding 05/05/2018 Recurrent joint pain 05/05/2018 Dehydration 01/18/2018 Fistula 12/31/2017 Overview: Added automatically from request for manda mancia [id number] Hypotension 12/25/2017 Morbid obesity with body mass [...] 06/22/2015 Pyelonephritis 06/25/2007 Overview: ICD10 Diagnosis Term Sales Coordinator Utility Type 2 diabetes mellitus with stage 3 chronic kidney d isease, without 06/25/2007 long-term current use of insulin Essential hypertension, benign 06/25/2007 Hypothyroidism 06/25/2007 Overview: ICD10 Diagnosis Term Sales Coordinator Utility documented as of this encounter (statuses as of 01/13/2020) Immunizations Name Administration Dates Next Due Influenza [...] of this encounter Implants Implanted Type Area Fusing Machine Operator Device Shelf Expiration Model / Identifier Date Serial / Lot Ivc Filter Janice Femoral Bard #[id number] - S0 FILTER Groin Bar d 10/15/2020 [id number] / Implanted: Qty: 1 on 01/20/2018 by Karl Damon MD at [facility] 0 / [id number] documented as of this encounter Results Not on filedocumented in this encounter Visit Diagnoses Diagnosis PE (pulmonary thromboembolism) Chronic pulmonary embolism documented in this encounter Insurance Payer Benefit Plan / Subscriber ID Effective Dates Phone Addre ss Type Group CIGNA CIGNA II [id number] 2003-[facility] O/PPO/[facility] [employer] [employer] [place] [id number] 2019-[employer] Medicare Adv PLUS PLUS t HMO CLASSIC/VALUE documented as of this encounter
--- OUTSIDE RECORDS SUMMARY | 2020-04-04 16:56 | XMS REPORT | Summary of Care ---
:1955 Author Organization [facility] Address [address] [place] [address] Care Team Providers Name Role Phone MD Ajit Primary Care Provider MD Ajit Unavailable Reason for Visit Reason Comments Refill Request Encounter Details Date Type Department Care Team Description 01/19/2020 Refill [facility] Family Medicine Arthur Stiles MD Refill Request - [address] [address] [place] [address] [phone] Allergies No Known Allergiesdocumented as of this encounter (statuses as of 01/20/2020) Medications Medication Sig Dispensed Refills Start End Status Date Date colchicine 0.6 mg Take 1 tablet 12 tablet 0 06/08/20 Active tablet by mouth 18 every other day. meloxicam (MOBIC) 15 Take 15 mg by 0 Active mg tablet mouth. ULORIC 40 mg tablet Take 40 mg by 5 09/18/19 Active mouth daily. 19 miSOPROStol 200 mcg Take 1 tablet 2 tablet 0 10/23/19 Active tablet by mouth 2 19 (two) times daily. Take one tab the night before scheduled procedure and one tab the morning of. metoprolol succinate Take 1 tablet 90 tablet 3 03/11/20 Active XL 50 mg 24 hr by mouth 19 tabletIndications: daily. Essential hypertension, benign furosemide 20 mg Take 1 tablet 30 tablet 0 06/02/20 Active tabletIndications: by mouth 19 Essential daily. hypertension, benign hydroCHLOROthiazide TAKE ONE 90 capsule 0 [...] Active mEq (1,080 mg) SR BY MOUTH 19 tabletIndications: EVERY DAY Kidney stone ALLOPURINOL 100 mg TAKE 1 TABLET 90 tablet 1 08/09/20 Active tabletIndications: BY MOUTH 19 Chronic gout without EVERY DAY tophus, unspecified cause, unspecified site citalopram 20 mg Take 1 tablet 90 tablet 1 08/10/20 Active tabletIndications: by mouth 19 Anxiety daily. FUROSEMIDE 20 mg TAKE 1 TABLET 30 tablet 0 08/10/20 Active tabletIndications: BY MOUTH 19 Essential EVERY DAY hypertension, benign albuterol 2.5 mg /3 mL Inhale 3 mL 100 Vial 1 08/27/20 Active (0.083 %) nebulizer every 6 (six) 19 solutionIndications: hours as Uncomplicated asthma, needed for unspecified asthma Wheezing or severity, unspecified Shortness of whether persistent, Breath. Wheezing METFORMIN 500 mg TAKE 1 TABLET 180 tablet 1 09/29/19 Active tabletIndications: BY MOUTH 20 Type 2 diabetes TWICE A DAY mellitus without WITH MEALS complication, without long-term current use of insulin VALSARTAN-HYDROCHLOROT TAKE 1 TABLET 90 tablet 1 09/29/19 Active HIAZIDE 320-25 mg per BY MOUTH 20 tabletIndications: EVERY DAY Essential hypertension, benign Compressor, For DIRECTED 4 1 Each 0 10/21/19 Active Nebulizer (PULMO-AIDE TIMES A DAY 20 COMPRESSOR) WITH DeviIndications: NEBULIZER Uncomplicated asthma, MEDICATION unspecified asthma severity, unspecified whether persistent tiZANidine 4 mg TAKE 1 TABLET 30 tablet 2 10/21/19 Active tabletIndications: BY MOUTH 20 Chronic low back pain EVERY 6 HOURS NEEDED FOR PAIN etodolac 400 mg Take 1 tablet 60 tablet 2 10/21/19 Active tabletIndications: by mouth 2 20 Chronic low back pain, (two) times unspecified back pain daily. laterality, unspecified whether sciatica present albuterol 90 TAKE 2 PUFFS 25.5 Inhaler 6 11/08/19 A ctive mcg/actuation BY MOUTH 20 inhalerIndications: EVERY 6 HOURS Uncomplicated asthma, NEEDED FOR unspecified asthma WHEEZE OR FOR severity, unspecified SHORTNESS OF whether persistent BREATH Ferrous Fumarate-Folic Take 1 tablet 90 tablet 1 11/24/19 Active Acid (HEMATINIC/FOLIC by mouth 20 ACID) 324 mg (106 mg daily. iron)-1 mg TabIndications: Anemia, unspecified type amoxicillin-clavulanat Take 1 tablet 20 tablet 0 11/24/19 Active e (AUGMENTIN) 875-125 by mouth 2 20 mg per (two) times tabletIndications: daily. Bronchitis PREGABALIN 150 mg TAKE 1 60 capsule 1 12/20/19 A ctive capsuleIndications: CAPSULE BY 20 Chronic low back pain, MOUTH TWICE A unspecified back pain DAY laterality, unspecified whether sciatica present zolpidem 10 mg Take 1 tablet 30 tablet 5 12/27/19 A ctive tabletIndications: by mouth at 20 Insomnia, unspecified bedtime as type needed for Insomnia. HYDROcodone-acetaminop Take 1 tablet 150 tablet 0 12/27/19 Active hen 10-325 mg by mouth 20 tabletIndications: every 4 Chronic low back pain (four) hours as needed for Pain (scale 4-6) or Pain (scale 7-10). ALPRAZolam 1 mg Take 1 tablet 60 tablet 5 12/27/19 Active tabletIndications: by mouth 3 20 Anxiety (three) times daily as needed for Other (anxiety). SULFAMETHOXAZOLE-TRIME TAKE 1 TABLET 20 tablet 0 01/11/20 Active THOPRIM 800-160 mg per BY MOUTH 20 tabletIndications: TWICE A DAY Urinary tract infection without hematuria, site unspecified XARELTO 20 mg TAKE 1 TABLET 90 tablet 0 01/13/20 Ac tive tabletIndications: PE BY MOUTH 20 (pulmonary EVERY DAY thromboembolism) LEVOTHYROXINE 175 mcg TAKE 1 TABLET 90 tablet 0 01/20/20 Active tabletIndications: BY MOUTH 20 Hypothyroidism due to EVERY DAY IN acquired atrophy of THE MORNING thyroid LEVOTHYROXINE 200 mcg TAKE 1 TABLET 90 tablet 0 08/06/200 03/16 Discontinued tablet BY MOUTH 19 020 (Dose EVERY DAY IN adjustm ent) THE MORNING LEVOTHYROXINE 175 mcg TAKE 1 TABLET 90 tablet 0 11/08/190 03/16 Discontinued tabletIndications: BY MOUTH 20 020 Hypothyroidism due to EVERY DAY IN acquired atrophy of THE MORNING thyroid documented as of this encounter (statuses as of 01/20/2020) Active Problems Problem Noted Date Staghorn calculus 11/16/2018 Kidney stone 10/13/2018 Overview: Added automatically from request for manda mancia [id number] Chronic gout without tophus, unspecified cause, unspec ified site 10/01/2018 Vaginal bleeding 05/05/2018 Postmenopausal vaginal bleeding 05/05/2018 Recurrent joint pain 05/05/2018 Dehydration 01/18/2018 Fistula 12/31/2017 Overview: Added automatically from request for manda mancia [id number] Hypotension 12/25/2017 Morbid obesity with body mass [...] 06/22/2015 Pyelonephritis 06/25/2007 Overview: ICD10 Diagnosis Term Summer Analyst Utility Type 2 diabetes mellitus with stage 3 chronic kidney d isease, without 06/25/2007 long-term current use of insulin Essential hypertension, benign 06/25/2007 Hypothyroidism 06/25/2007 Overview: ICD10 Diagnosis Term Summer Analyst Utility documented as of this encounter (statuses as of 01/20/2020) Immunizations Name Administration Dates Next Due Influenza [...] (1 of 2) URINE MICROALBUMIN 04/22/2007 04/22/2006 HgA1C 11/10/2019 05/10/2019, 08/26/2017, 03/14/2017, Additional history exists CREATININE (SERUM) 05/10/2020 05/10/2019, 11/17/2018, 11/17/2018, Additional history exists LDL-C 05/10/2020 05/10/2019, 08/26/2017, 03/14/2017, Additional history exists INFLUENZA VACCINE (Season 05/16/2020 10/21/2018, 06/23/2017 Ended) PAP SMEAR 06/22/2020 06/22/2015 Breast Cancer Screening 11/11/2020 Postpone d from (MAMMOGRAM) 1996 (Refu sed) COLONOSCOPY 12/03/2027 12/02/2017 DTaP,Tdap,and Td Vaccines 10/21/2028 10/21/2018 (2 - Td) HEPATITIS C (HCV) SCREEN Completed 01/20/2018, 07/06/2015 documented as of this encounter Implants Implanted Type Area Tax Associate Attorney Device Shelf Expiration Model / Identifier Date Serial / Lot Ivc Filter Janice Femoral Bard #[id number] - S0 FILTER Groin Bar d 10/15/2020 [id number] / Implanted: Qty: 1 on 01/20/2018 by Karl Damon MD at 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
--- OUTSIDE RECORDS SUMMARY | 2020-04-04 16:57 | XMS REPORT | Summary of Care ---
:1955 Author Organization [facility] Address [address] [place] [address] Care Team Providers Name Role Phone MD Ajit Primary Care Provider MD Ajit Unavailable Reason for Visit Reason Comments Orders Encounter Details Date Type Department Care Team Description 01/28/2020 Telephone [facility] Family Medicine Arthur Stiles MD Orders - [address] [facility] [place] [address] [place] [address] [phone] Allergies No Known Allergiesdocumented as of this encounter (statuses as of 02/02/2020) Medications Medication Sig Dispensed Refills Start Date End Date Status colchicine 0.6 mg tablet Take 1 tablet 12 tablet 0 06/08/2018 Active by mouth every other day. meloxicam (MOBIC) 15 mg Take 15 mg by 0 Active tablet mouth. miSOPROStol 200 mcg Take 1 tablet 2 tablet 0 10/23/2018 Active tablet by mouth 2 (two) times daily. Take one tab the night before scheduled procedure and one tab the morning of. metoprolol succinate XL Take 1 tablet 90 tablet 3 03/11/2019 Active 50 mg 24 hr by mouth daily. tabletIndications: Essential hypertension, benign furosemide 20 mg Take 1 tablet 30 tablet 0 06/02/2019 Active tabletIndications: by mouth daily. Essential hypertension, benign hydroCHLOROthiazide 12.5 TAKE ONE 90 capsule 0 06/16/2019 Active mg capsule CAPSULE BY MOUTH ONCE A DAY potassium citrate 10 mEq Take 1 tablet 30 tablet 0 06/24/2019 Active (1,080 mg) SR by mouth daily. tabletIndications: Kidney stone cephALEXin 500 mg 0 06/22/2019 A ctive capsule clindamycin 300 mg 0 06/22/2019 Active capsule POTASSIUM CITRATE 10 mEq TAKE 1 TABLET 30 tablet 0 07/27/2019 Active (1,080 mg) SR BY MOUTH EVERY tabletIndications: DAY Kidney stone citalopram 20 mg Take 1 tablet 90 tablet 1 08/10/2019 Active tabletIndications: by mouth daily. Anxiety FUROSEMIDE 20 mg TAKE 1 TABLET 30 tablet 0 08/10/2019 Active tabletIndications: BY MOUTH EVERY Essential hypertension, DAY benign albuterol 2.5 mg /3 mL Inhale 3 mL 100 Vial 1 2019 Active (0.083 %) nebulizer every 6 (six) solutionIndications: hours as needed Uncomplicated asthma, for Wheezing or unspecified asthma Shortness of severity, unspecified Breath. whether persistent, Wheezing Compressor, For DIRECTED 4 1 Each 0 10/21/2019 Active Nebulizer (PULMO-AIDE TIMES A DAY COMPRESSOR) WITH NEBULIZER DeviIndications: MEDICATION Uncomplicated asthma, unspecified asthma severity, unspecified whether persistent etodolac 400 mg Take 1 tablet 60 tablet 2 10/21/2019 Active tabletIndications: by mouth 2 Chronic low back pain, (two) times unspecified back pain daily. laterality, unspecified whether sciatica present albuterol 90 TAKE 2 PUFFS BY 25.5 Inhaler 6 11/08/2019 Active mcg/actuation MOUTH EVERY 6 inhalerIndications: HOURS NEEDED Uncomplicated asthma, FOR WHEEZE OR unspecified asthma FOR SHORTNESS severity, unspecified OF BREATH whether persistent Ferrous Fumarate-Folic Take 1 tablet 90 tablet 1 11/24/2019 Active Acid (HEMATINIC/FOLIC by mouth daily. ACID) 324 mg (106 mg iron)-1 mg TabIndications: Anemia, unspecified type amoxicillin-clavulanate Take 1 tablet 20 tablet 0 11/24/2019 Active (AUGMENTIN) 875-125 mg by mouth 2 per tabletIndications: (two) times Bronchitis daily. PREGABALIN 150 mg TAKE 1 CAPSULE 60 capsule 1 12/20/2019 Active capsuleIndications: BY MOUTH TWICE Chronic low back pain, A DAY unspecified back pain laterality, unspecified whether sciatica present zolpidem 10 mg Take 1 tablet 30 tablet 5 12/27/2019 Active tabletIndications: by mouth at Insomnia, unspecified bedtime as type needed for Insomnia. ALPRAZolam 1 mg Take 1 tablet 60 tablet 5 12/27/2019 Active tabletIndications: by mouth 3 Anxiety (three) times daily as needed for Other (anxiety). 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 tabletIndications: Essential hypertension, benign tiZANidine 4 mg TAKE 1 TABLET 30 tablet 2 01/24/2020 Active tabletIndications: BY MOUTH EVERY Chronic low back pain 6 HOURS NEEDED FOR PAIN HYDROcodone-acetaminophe Take 1 tablet 150 tablet 0 01/24/2020 Active n 10-325 mg by mouth every tabletIndications: 4 (four) hours Chronic low back pain as needed for Pain (scale 4-6) or Pain (scale 7-10). ALLOPURINOL 100 mg TAKE 1 TABLET 90 tablet 0 01/26/2020 Active tabletIndications: BY MOUTH EVERY Chronic gout without DAY tophus, unspecified cause, unspecified site documented as of this encounter (statuses as of 02/02/2020) Active Problems Problem Noted Date Staghorn calculus 11/16/2018 Kidney stone 10/13/2018 Overview: Added automatically from request for manda mancia [id number] Chronic gout without tophus, unspecified cause, unspec ified site 10/01/2018 Vaginal bleeding 05/05/2018 Postmenopausal vaginal bleeding 05/05/2018 Recurrent joint pain 05/05/2018 Dehydration 01/18/2018 Fistula 12/31/2017 Overview: Added automatically from request for manda mancia [id number] Hypotension 12/25/2017 Morbid obesity with body mass [...] 06/22/2015 Pyelonephritis 06/25/2007 Overview: ICD10 Diagnosis Term Datapower Developer Utility Type 2 diabetes mellitus with stage 3 chronic kidney d isease, without 06/25/2007 long-term current use of insulin Essential hypertension, benign 06/25/2007 Hypothyroidism 06/25/2007 Overview: ICD10 Diagnosis Term Datapower Developer Utility documented as of this encounter (statuses as of 02/02/2020) Immunizations Name Administration Dates Next Due Influenza [...] of this encounter Implants Implanted Type Area Registered Nurses Device Shelf Expiration Model / Identifier Date Serial / Lot Ivc Filter Daggett Femoral Bard #[id number] - S0 FILTER Groin Bar d 10/15/2020 [id number] / Implanted: Qty: 1 on 01/20/2018 by Karl Damon MD at [facility] 0 / [id number] documented as of this encounter Results Not on filedocumented in this encounter Insurance Payer Benefit Plan / Subscriber ID Effective Dates Phone Addre ss Type Group CIGNA CIGNA II [id number] 2003-Presen O/PPO/POS t WELLCARE VI WELLCARE VI [id number] 2019-Presen Medicare Adv PLUS PLUS t HMO CLASSIC/VALUE documented as of this encounter
--- OUTSIDE RECORDS SUMMARY | 2020-04-04 16:57 | XMS REPORT | Summary of Care ---
:1955 Author Organization [facility] Address [address] [place] [address] Care Team Providers Name Role Phone MD Ajit Primary Care Provider MD Ajit Unavailable Reason for Visit Reason Comments Refill Request Encounter Details Date Type Department Care Team Description 01/28/2020 Refill [facility] Family Medicine Arthur Stiles MD Refill Request - [address] [address] [place] [address] [phone] Allergies No Known Allergiesdocumented as of this encounter (statuses as of 01/30/2020) Medications Medication Sig Dispensed Refills Start End [...] MOUTH EVERY 19 tabletIndications: DAY Kidney stone citalopram 20 mg [...] unspecified Shortness of whether persistent, Breath. 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 Essential hypertension, benign tiZANidine 4 mg TAKE 1 TABLET 30 tablet 2 01/24/20 Active tabletIndications: BY MOUTH EVERY 20 Chronic low back pain 6 HOURS NEEDED FOR PAIN HYDROcodone-acetaminoph Take 1 tablet 150 tablet 0 01/24/20 Active en 10-325 mg by mouth every 20 tabletIndications: 4 (four) hours Chronic low back pain as needed for Pain (scale 4-6) or Pain (scale 7-10). ALLOPURINOL 100 mg TAKE 1 TABLET 90 tablet 0 01/26/20 Active tabletIndications: BY MOUTH EVERY 20 Chronic gout without DAY tophus, unspecified cause, unspecified site METFORMIN 500 mg TAKE 1 TABLET 180 tablet 1 01/30/20 Active tabletIndications: Type BY MOUTH TWICE 20 2 diabetes mellitus A DAY WITH without complication, MEALS without long-term current use of insulin METFORMIN 500 mg TAKE 1 TABLET 180 tablet 1 09/29/19 Discontinued tabletIndications: Type BY MOUTH TWICE 20 0 20 2 diabetes mellitus A DAY WITH without complication, MEALS without long-term current use of insulin documented as of this encounter (statuses as of 01/30/2020) Active Problems Problem Noted Date Staghorn calculus 11/16/2018 Kidney stone 10/13/2018 Overview: Added automatically from request for manda mancia [id number] Chronic gout without tophus, unspecified cause, unspec ified site 10/01/2018 Vaginal bleeding 05/05/2018 Postmenopausal vaginal bleeding 05/05/2018 Recurrent joint pain 05/05/2018 Dehydration 01/18/2018 Fistula 12/31/2017 Overview: Added automatically from request for manda mancia [id number] Hypotension 12/25/2017 Morbid obesity with body mass [...] 06/22/2015 Pyelonephritis 06/25/2007 Overview: ICD10 Diagnosis Term Seismic Prospecting Observer Utility Type 2 diabetes mellitus with stage 3 chronic kidney d isease, without 06/25/2007 long-term current use of insulin Essential hypertension, benign 06/25/2007 Hypothyroidism 06/25/2007 Overview: ICD10 Diagnosis Term Seismic Prospecting Observer Utility documented as of this encounter (statuses as of 01/30/2020) Immunizations Name Administration Dates Next Due Influenza [...] of this encounter Implants Implanted Type Area Manager Rfid Device Shelf Expiration Model / Identifier Date Serial / Lot Ivc Filter Janice Femoral Us Bard #[id number] - S0 FILTER Groin Bar d 10/15/2020 [id number] / Implanted: Qty: 1 on 01/20/2018 by Karl Damon MD at [facility] 0 / [id number] documented as of this encounter Results Not on filedocumented in this encounter Visit Diagnoses Diagnosis Type 2 diabetes mellitus without complic ation, without long-term current use of insulin documented in this encounter Insurance Payer Benefit Plan / Subscriber ID Effective Dates Phone Addre ss Type Group CIGNA CIGNA II [id number] 2003-Pres[place] O/PPO/POS t WELLCARE [place] WELLCARE TEXLYSSA [id number] 2019-Presen Medicare Adv PLUS PLUS t HMO CLASSIC/VALUE documented as of this encounter
--- OUTSIDE RECORDS SUMMARY | 2020-04-04 16:57 | XMS REPORT | Summary of Care ---
:1955 Author Organization [facility] Address [address] [place] [address] Care Team Providers Name Role Phone MD Ajit Primary Care Provider MD Ajit Unavailable Reason for Visit Reason Comments Refill Request Encounter Details Date Type Department Care Team Description 01/24/2020 Refill [facility] Family Medicine Arthur Stiles MD Refill Request - [address] [address] [place] [address] [phone] Allergies No Known Allergiesdocumented as of this encounter (statuses as of 01/24/2020) Medications Medication Sig Dispensed Refills Start End [...] complication, without long-term current use of insulin Compressor, For DIRECTED 4 1 Each 0 10/21/19 Active Nebulizer (PULMO-AIDE TIMES A DAY 20 COMPRESSOR) WITH DeviIndications: NEBULIZER Uncomplicated asthma, MEDICATION unspecified asthma severity, unspecified whether persistent etodolac [...] IN acquired atrophy of THE MORNING thyroid valsartan-hydrochlorot Take 1 tablet 90 tablet 0 01/24/20 Active hiazide 320-25 mg per by mouth 20 tabletIndications: daily. Essential hypertension, benign tiZANidine 4 mg TAKE 1 TABLET 30 tablet 2 01/24/20 Active tabletIndications: BY MOUTH 20 Chronic low back pain EVERY 6 HOURS NEEDED FOR PAIN HYDROcodone-acetaminop Take 1 tablet 150 tablet 0 01/24/20 Active hen 10-325 mg by mouth 20 tabletIndications: every 4 Chronic low back pain (four) hours as needed for Pain (scale 4-6) or Pain (scale 7-10). VALSARTAN-HYDROCHLOROT TAKE 1 TABLET 90 tablet 1 01/15/20 05/ 11/2 Discontinued HIAZIDE 320-25 mg per BY MOUTH 20 020 (Reorder) tabletIndications: EVERY DAY Essential hypertension, benign tiZANidine 4 mg TAKE 1 TABLET 30 tablet 2 10/21/19 Discontinued tabletIndications: BY MOUTH 20 020 ( Reorder) Chronic low back pain EVERY 6 HOURS NEEDED FOR PAIN HYDROcodone-acetaminop Take 1 tablet 150 tablet 0 12/27/19 Discontinued hen 10-325 mg by mouth 20 020 (Reord er) tabletIndications: every 4 Chronic low back pain (four) hours as needed for Pain (scale 4-6) or Pain (scale 7-10). documented as of this encounter (statuses as of 01/24/2020) Active Problems Problem Noted Date Staghorn calculus 11/16/2018 Kidney stone 10/13/2018 Overview: Added automatically from request for manda mancia [id number] Chronic gout without tophus, unspecified cause, unspec ified site 10/01/2018 Vaginal bleeding 05/05/2018 Postmenopausal vaginal bleeding 05/05/2018 Recurrent joint pain 05/05/2018 Dehydration 01/18/2018 Fistula 12/31/2017 Overview: Added automatically from request for manda mancia [id number] Hypotension 12/25/2017 Morbid obesity with body mass [...] 06/22/2015 Pyelonephritis 06/25/2007 Overview: ICD10 Diagnosis Term Yard Motor Operator Utility Type 2 diabetes mellitus with stage 3 chronic kidney d isease, without 06/25/2007 long-term current use of insulin Essential hypertension, benign 06/25/2007 Hypothyroidism 06/25/2007 Overview: ICD10 Diagnosis Term Yard Motor Operator Utility documented as of this encounter (statuses as of 01/24/2020) Immunizations Name Administration Dates Next Due Influenza [...] of this encounter Implants Implanted Type Area Window Trimmer Apprentice Device Shelf Expiration Model / Identifier Date Serial / Lot Ivc Filter [place] Femoral Us Bard #[id number] - S0 FILTER Groin Bar d 10/15/2020 [id number] / Implanted: Qty: 1 on 01/20/2018 by Karl Damon MD at [facility] 0 / [id number] documented as of this encounter Results Not on filedocumented in this encounter Visit Diagnoses Diagnosis Insomnia, unspecified type Essential hypertension, benign Chronic low back pain Lumbago documented in this encounter Insurance Payer Benefit Plan / Subscriber ID Effective Dates Phone Addre ss Type Group CIGNA CIGNA II [id number] 2003-[id number] 2019-Presen Medicare Adv PLUS PLUS t HMO CLASSIC/VALUE documented as of this encounter
--- OUTSIDE RECORDS SUMMARY | 2020-04-04 16:57 | XMS REPORT | Summary of Care ---
:1955 Author Organization [facility] Address [address] [place] [address] Care Team Providers Name Role Phone MD Ajit Primary Care Provider MD Ajit Unavailable Reason for Visit Reason Comments Refill Request Encounter Details Date Type Department Care Team Description 01/26/2020 Refill [facility] Family Medicine Arthur Stiles MD Refill Request - [address] [address] [place] [address] [phone] Allergies No Known Allergiesdocumented as of this encounter (statuses as of 01/26/2020) Medications Medication Sig Dispensed Refills Start End Status Date Date colchicine 0.6 mg Take 1 tablet 12 tablet 0 06/08/20 Active tablet by mouth 18 every other day. meloxicam (MOBIC) 15 Take 15 mg by 0 Active mg tablet mouth. miSOPROStol 200 mcg Take 1 [...] MOUTH 19 tabletIndications: EVERY DAY Kidney stone citalopram 20 mg Take [...] tablet 0 01/26/20 Active tabletIndications: BY MOUTH 20 Chronic gout without EVERY DAY tophus, unspecified cause, unspecified site ULORIC 40 mg tablet Take 40 mg by 5 09/18/19 Discontinued mouth daily. 19 020 (Duplic ate) ALLOPURINOL 100 mg TAKE 1 TABLET 90 tablet 1 08/09/20 Discontinued tabletIndications: BY MOUTH 19 020 Chronic gout without EVERY DAY tophus, unspecified cause, unspecified site documented as of this encounter (statuses as of 01/26/2020) Active Problems Problem Noted Date Staghorn calculus 11/16/2018 Kidney stone 10/13/2018 Overview: Added automatically from request for manda mancia [id number] Chronic gout without tophus, unspecified cause, unspec ified site 10/01/2018 Vaginal bleeding 05/05/2018 Postmenopausal vaginal bleeding 05/05/2018 Recurrent joint pain 05/05/2018 Dehydration 01/18/2018 Fistula 12/31/2017 Overview: Added automatically from request for manda mancia [id number] Hypotension 12/25/2017 Morbid obesity with body mass [...] 06/22/2015 Pyelonephritis 06/25/2007 Overview: ICD10 Diagnosis Term Video Production Intern Utility Type 2 diabetes mellitus with stage 3 chronic kidney d isease, without 06/25/2007 long-term current use of insulin Essential hypertension, benign 06/25/2007 Hypothyroidism 06/25/2007 Overview: ICD10 Diagnosis Term Video Production Intern Utility documented as of this encounter (statuses as of 01/26/2020) Immunizations Name Administration Dates Next Due Influenza [...] of this encounter Implants Implanted Type Area Jigger Artisan Device Shelf Expiration Model / Identifier Date Serial / Lot Ivc Filter Janice Femoral [facility] #[id number] - S0 FILTER Groin Bar d 10/15/2020 [id number] / Implanted: Qty: 1 on 01/20/2018 by Karl Damon MD at [facility] 0 / [id number] documented as of this encounter Results Not on filedocumented in this encounter Visit Diagnoses Diagnosis Chronic gout without tophus, unspecified cause, unspecified site documented in this encounter Insurance Payer Benefit Plan / Subscriber ID Effective Dates Phone Addre ss Type Group CIGNA CIGNA II [id number] 2003-[place] O/PPO/POS t [employer] [place] WE[employer]ARE [place] [id number] 2019-Presen Medicare Adv PLUS PLUS t HMO CLASSIC/VALUE documented as of this encounter
--- OUTSIDE RECORDS SUMMARY | 2020-04-04 16:58 | XMS REPORT | Summary of Care ---
:1955 Author Organization [facility] Address [address] [place] [address] Care Team Providers Name Role Phone MD Ajit Primary Care Provider MD Ajit Unavailable Reason for Visit Reason Comments Refill Request Encounter Details Date Type Department Care Team Description 02/04/2020 Refill [facility] Family Medicine Arthur Stiles MD Refill Request - [address] [address] [place] [address] [phone] Allergies No Known Allergiesdocumented as of this encounter (statuses as of 02/04/2020) Medications Medication Sig Dispensed Refills Start End [...] MOUTH EVERY 19 tabletIndications: DAY Kidney stone FUROSEMIDE 20 mg TAKE 1 TABLET 30 tablet 0 08/10/20 Active tabletIndications: BY MOUTH EVERY 19 Essential hypertension, DAY benign Compressor, For DIRECTED 4 1 Each [...] MEALS without long-term current use of insulin CITALOPRAM 20 mg TAKE 1 TABLET 90 tablet 1 02/04/20 Active tabletIndications: BY MOUTH EVERY 20 Anxiety DAY ALBUTEROL 2.5 mg /3 mL USE 1 VIAL 300 mL 1 02/04/20 Active (0.083 %) nebulizer WITH NEBULIZER 20 solutionIndications: EVERY 6 HOURS Uncomplicated asthma, NEEDED FOR unspecified asthma SHORTNESS OF severity, unspecified BREATH/WHEEZIN whether persistent, G Wheezing citalopram 20 mg Take 1 tablet 90 tablet 1 08/10/20 Discontinued tabletIndications: by mouth 19 020 Anxiety daily. albuterol 2.5 mg /3 mL Inhale 3 mL 100 Vial 1 08/27/2002/03 Discontinued (0.083 %) nebulizer every 6 (six) 19 020 solutionIndications: hours as Uncomplicated asthma, needed for unspecified asthma Wheezing or severity, unspecified Shortness of whether persistent, Breath. Wheezing documented as of this encounter (statuses as of 02/04/2020) Active Problems Problem Noted Date Staghorn calculus 11/16/2018 Kidney stone 10/13/2018 Overview: Added automatically from request for manda mancia [id number] Chronic gout without tophus, unspecified cause, unspec ified site 10/01/2018 Vaginal bleeding 05/05/2018 Postmenopausal vaginal bleeding 05/05/2018 Recurrent joint pain 05/05/2018 Dehydration 01/18/2018 Fistula 12/31/2017 Overview: Added automatically from request for manda mancia [id number] Hypotension 12/25/2017 Morbid obesity with body mass [...] 06/22/2015 Pyelonephritis 06/25/2007 Overview: ICD10 Diagnosis Term Pearl Stringer Utility Type 2 diabetes mellitus with stage 3 chronic kidney d isease, without 06/25/2007 long-term current use of insulin Essential hypertension, benign 06/25/2007 Hypothyroidism 06/25/2007 Overview: ICD10 Diagnosis Term Pearl Stringer Utility documented as of this encounter (statuses as of 02/04/2020) Immunizations Name Administration Dates Next Due Influenza [...] of this encounter Implants Implanted Type Area Director Of Curriculum And Instruction Device Shelf Expiration Model / Identifier Date Serial / Lot Ivc Filter [place] Femoral Bard #[id number] - S0 FILTER Groin Bar d 10/15/2020 [id number] / Implanted: Qty: 1 on 01/20/2018 by Karl Damon MD at [facility] 0 / [id number] documented as of this encounter Results Not on filedocumented in this encounter Visit Diagnoses Diagnosis Urinary tract infection without hematuri a, site unspecified Neuropathy Mononeuritis of unspecified site Bronchitis Bronchitis, not specified as acute or ch ronic Anxiety Anxiety state, unspecified Uncomplicated asthma, unspecified asthma severity, unspecified whether persistent Wheezing documented in this encounter Insurance Payer Benefit Plan / Subscriber ID Effective Dates Phone Addre ss Type Group CIGNA CIGNA II [id number] 2003-[facility] [id number] 2019-Presen Medicare Adv PLUS PLUS t HMO CLASSIC/VALUE documented as of this encounter
--- OUTSIDE RECORDS SUMMARY | 2020-04-04 16:59 | XMS REPORT | Summary of Care ---
:1955 Author Organization [facility] - [facility] Address [address] [place] [address] Care Team Providers Name Role Phone MD Ajit Primary Care Provider MD Ajit Unavailable Reason for Visit Reason Comments Orders Encounter Details Date Type Department Care Team Description 02/11/2020 Telephone [facility] Pediatric and Arthur Fong MD Orders Adult Primary Care- [address] [place] [address] [place] [address] , [address] [place] [address] Allergies No Known Allergiesdocumented as of this encounter (statuses as of 02/11/2020) Medications Medication Sig Dispensed Refills Start Date [...] BY MOUTH EVERY tabletIndications: DAY Kidney stone FUROSEMIDE 20 mg TAKE 1 TABLET 30 tablet 0 08/10/2019 Active tabletIndications: BY MOUTH EVERY Essential hypertension, DAY benign Compressor, For DIRECTED [...] Urinary tract infection without hematuria, site unspecified LEVOTHYROXINE 175 mcg TAKE 1 TABLET 90 [...] mg TAKE 1 TABLET 180 tablet 1 01/30/2020 Active tabletIndications: Type BY MOUTH TWICE 2 diabetes mellitus A DAY WITH without complication, MEALS without long-term current use of insulin CITALOPRAM 20 mg TAKE 1 TABLET 90 tablet 1 02/04/2020 Active tabletIndications: BY MOUTH EVERY Anxiety DAY ALBUTEROL 2.5 mg /3 mL USE 1 VIAL WITH 300 mL 1 02/04/2020 Active (0.083 %) nebulizer NEBULIZER EVERY solutionIndications: 6 HOURS Uncomplicated asthma, NEEDED FOR unspecified asthma SHORTNESS OF severity, unspecified BREATH/WHEEZING whether persistent, Wheezing XARELTO 20 mg TAKE 1 TABLET 90 tablet 0 02/04/2020 A ctive tabletIndications: PE BY MOUTH EVERY (pulmonary DAY thromboembolism) documented as of this encounter (statuses as of 02/11/2020) Active Problems Problem Noted Date Staghorn calculus 11/16/2018 Kidney stone 10/13/2018 Overview: Added automatically from request for manda blanche [id number] Chronic gout without tophus, unspecified cause, unspec ified site 10/01/2018 Vaginal bleeding 05/05/2018 Postmenopausal vaginal bleeding 05/05/2018 Recurrent joint pain 05/05/2018 Dehydration 01/18/2018 Fistula 12/31/2017 Overview: Added automatically from request for manda mancia [id number] Hypotension 12/25/2017 Morbid obesity with body mass [...] 06/22/2015 Pyelonephritis 06/25/2007 Overview: ICD10 Diagnosis Term E M Assembler Utility Type 2 diabetes mellitus with stage 3 chronic kidney d isease, without 06/25/2007 long-term current use of insulin Essential hypertension, benign 06/25/2007 Hypothyroidism 06/25/2007 Overview: ICD10 Diagnosis Term E M Assembler Utility documented as of this encounter (statuses as of 02/11/2020) Immunizations Name Administration Dates Next Due Influenza [...] 05/10/2020 05/10/2019, 11/17/2018, 11/17/2018, Additional history exists Depression Screening 05/10/2020 05/10/2019 LDL-C 05/10/2020 05/10/2019, 08/26/2017, 03/14/2017, Additional history exists INFLUENZA VACCINE (Season 05/16/2020 10/21/2018, 06/23/2017 Ended) PAP SMEAR 06/22/2020 06/22/2015 Breast Cancer Screening 11/11/2020 Postpone d from (MAMMOGRAM) 1996 (Refu sed) COLONOSCOPY 12/03/2027 12/02/2017 DTaP,Tdap,and Td Vaccines 10/21/2028 10/21/2018 (2 - Td) HEPATITIS C (HCV) SCREEN Completed 01/20/2018, 07/06/2015 documented as of this encounter Implants Implanted Type Area Motor Vehicle Assembler Device Shelf Expiration Model / Identifier Date Serial / Lot Ivc Filter [place] Femoral Bard #[id number] - S0 FILTER Groin Bar d 10/15/2020 [id number] / Implanted: Qty: 1 on 01/20/2018 by Karl Damon MD at [facility] 0 / [id number] documented as of this encounter Results Not on filedocumented in this encounter Insurance Payer Benefit Plan / Subscriber ID Effective Dates Phone Addre ss Type Group CIGNA CIGNA II [id number] 2003-Presen HM O/PPO/[place] [employer] [place] [employer] [place] [id number] 2019-Presen Medicare Adv PLUS PLUS t HMO CLASSIC/VALUE documented as of this encounter
--- OUTSIDE RECORDS SUMMARY | 2020-04-04 16:59 | XMS REPORT | Summary of Care ---
:1955 Author Organization [facility] - [facility] Address [address] [place] [address] Care Team Providers Name Role Phone MD Ajit Primary Care Provider MD Ajit Unavailable Reason for Visit Reason Comments Assessment Encounter Details Date Type Department Care Team Description 02/04/2020 Telephone [facility] Pediatric and Arthur Fong MD Assessment Adult Primary Care- [address] [place] [address] [place] [address] , [phone] [address] [place] [address] Allergies No Known Allergiesdocumented as of this encounter (statuses as of 02/04/2020) Medications Medication Sig Dispensed Refills Start Date [...] Added automatically from request for manda blanche [id number] Chronic gout without tophus, unspecified cause, unspec ified site 10/01/2018 Vaginal bleeding 05/05/2018 Postmenopausal vaginal bleeding 05/05/2018 Recurrent joint pain 05/05/2018 Dehydration 01/18/2018 Fistula 12/31/2017 Overview: Added automatically from request for manda mancia [id number] Hypotension 12/25/2017 Morbid obesity with body mass [...] 06/22/2015 Pyelonephritis 06/25/2007 Overview: ICD10 Diagnosis Term Call Or Contact Centre Operator Utility Type 2 diabetes mellitus with stage 3 chronic kidney d isease, without 06/25/2007 long-term current use of insulin Essential hypertension, benign 06/25/2007 Hypothyroidism 06/25/2007 Overview: ICD10 Diagnosis Term Call Or Contact Centre Operator Utility documented as of this encounter [...] of this encounter Implants Implanted Type Area Dog License Officer Supervisor Device Shelf Expiration Model / Identifier Date Serial / Lot Ivc Filter Janice Femoral Bard #[id number] - S0 FILTER Groin Bar d 10/15/2020 [id number] / Implanted: Qty: 1 on 01/20/2018 by Karl Damon MD at [facility] [address] 0 / [id number] documented as of this encounter Results Not on filedocumented in this encounter Insurance Payer Benefit Plan / Subscriber ID Effective Dates Phone Addre ss Type Group CIGNA CIGNA II [id number] 2003-Presen O/PPO/POS t [employer] [place] [employer] [place] [id number] 2019-Presen Medicare Adv PLUS PLUS t HMO CLASSIC/VALUE documented as of this encounter
--- OUTSIDE RECORDS SUMMARY | 2020-04-04 16:59 | XMS REPORT | Summary of Care ---
:1955 Author Organization [facility] Address [address] [place] [address] Care Team Providers Name Role Phone MD Ajit Primary Care Provider MD Ajit Unavailable Reason for Visit Reason Comments Refill Request Encounter Details Date Type Department Care Team Description 02/04/2020 Refill [facility] Family Medicine Arthur Stiles MD Refill Request - [address] [address] [place] [address] [phone] Allergies No Known Allergiesdocumented as of this [...] severity, unspecified BREATH/WHEEZIN whether persistent, G Wheezing XARELTO 20 mg TAKE 1 TABLET 90 tablet 0 02/04/20 Ac tive tabletIndications: PE BY MOUTH EVERY 20 (pulmonary DAY thromboembolism) XARELTO 20 mg TAKE 1 TABLET 90 tablet 0 01/13/20 Di scontinued tabletIndications: PE BY MOUTH EVERY 20 020 (pulmonary DAY thromboembolism) documented as of this encounter (statuses as of 02/04/2020) Active Problems Problem Noted Date Staghorn calculus 11/16/2018 Kidney stone 10/13/2018 Overview: Added automatically from request for manda mancia [id number] Chronic gout without tophus, unspecified cause, unspec ified site 10/01/2018 Vaginal bleeding 05/05/2018 Postmenopausal vaginal bleeding 05/05/2018 Recurrent joint pain 05/05/2018 Dehydration 01/18/2018 Fistula 12/31/2017 Overview: Added automatically from request for manda mancia [id number] Hypotension 12/25/2017 Morbid obesity with body mass [...] 06/22/2015 Pyelonephritis 06/25/2007 Overview: ICD10 Diagnosis Term Director Corporate Communications Utility Type 2 diabetes mellitus with stage 3 chronic kidney d isease, without 06/25/2007 long-term current use of insulin Essential hypertension, benign 06/25/2007 Hypothyroidism 06/25/2007 Overview: ICD10 Diagnosis Term Director Corporate Communications Utility documented as of this encounter (statuses [...] of this encounter Implants Implanted Type Area Credentialing Assistant Device Shelf Expiration Model / Identifier Date Serial / Lot Ivc Filter Janice Femoral Bard #[id number] - S0 FILTER Groin Bar d 10/15/2020 [id number] / Implanted: Qty: 1 on 01/20/2018 by Karl Damon MD at [facility] 0 / [id number] documented as of this encounter Results Not on filedocumented in this encounter Visit Diagnoses Diagnosis PE (pulmonary thromboembolism) Chronic pulmonary embolism documented in this encounter Insurance Payer Benefit Plan / Subscriber ID Effective Dates Phone Addre ss Type Group CIGNA CIGNA II [id number] 2003-Presen O/PPO/POS t [employer] [place] [employer] [place] [id number] 2019-Presen Medicare Adv PLUS PLUS t HMO CLASSIC/VALUE documented as of this encounter
--- OUTSIDE RECORDS SUMMARY | 2020-04-04 17:00 | XMS REPORT | Summary of Care ---
:1955 Author Organization [facility] Address [address] [place] [address] Care Team Providers Name Role Phone MD Ajit Primary Care Provider MD Ajit Unavailable Reason for Visit Reason Comments Refill Request Encounter Details Date Type Department Care Team Description 02/22/2020 Refill [facility] Family Medicine Arthur Stiles MD Refill Request - [address] [place] [address] [place] [address] [phone] Allergies No Known Allergiesdocumented as of this encounter (statuses as of 02/23/2020) Medications Medication Sig Dispensed Refills Start End [...] MOUTH 19 tabletIndications: EVERY DAY Kidney stone FUROSEMIDE 20 mg TAKE 1 TABLET 30 tablet 0 08/10/20 Active tabletIndications: BY MOUTH 19 Essential EVERY DAY hypertension, benign Compressor, For DIRECTED 4 1 Each 0 10/21/19 Active Nebulizer (PULMO-AIDE TIMES A DAY 20 COMPRESSOR) WITH DeviIndications: NEBULIZER Uncomplicated asthma, MEDICATION unspecified asthma severity, unspecified whether persistent albuterol 90 TAKE 2 PUFFS 25.5 Inhaler [...] pain EVERY 6 HOURS NEEDED FOR PAIN ALLOPURINOL 100 mg TAKE 1 TABLET 90 tablet 0 01/26/20 Active tabletIndications: BY MOUTH 20 Chronic gout without EVERY DAY tophus, unspecified cause, unspecified site METFORMIN 500 mg TAKE 1 TABLET 180 tablet 1 01/30/20 Active tabletIndications: BY MOUTH 20 Type 2 diabetes TWICE A DAY mellitus without WITH MEALS complication, without long-term current use of insulin CITALOPRAM 20 mg TAKE 1 TABLET 90 tablet 1 02/04/20 Active tabletIndications: BY MOUTH 20 Anxiety EVERY DAY ALBUTEROL 2.5 mg /3 mL USE 1 VIAL 300 mL 1 02/04/20 Active (0.083 %) nebulizer WITH 20 solutionIndications: NEBULIZER Uncomplicated asthma, EVERY 6 HOURS unspecified asthma NEEDED FOR severity, unspecified SHORTNESS OF whether persistent, BREATH/WHEEZI Wheezing NG XARELTO 20 mg TAKE 1 TABLET 90 tablet 0 02/04/20 Ac tive tabletIndications: PE BY MOUTH 20 (pulmonary EVERY DAY thromboembolism) ETODOLAC 400 mg TAKE 1 TABLET 60 tablet 2 02/14/20 Active tabletIndications: BY MOUTH 20 Chronic low back pain, TWICE A DAY unspecified back pain laterality, unspecified whether sciatica present HYDROcodone-acetaminop Take 1 tablet 150 tablet 0 02/23/20 Active hen 10-325 mg by mouth 20 tabletIndications: every 4 Chronic low back pain (four) hours as needed for Pain (scale 4-6) or Pain (scale 7-10). HYDROcodone-acetaminop Take 1 tablet 150 tablet 0 01/24/20 Discontinued hen 10-325 mg by mouth 20 020 (Reord er) tabletIndications: every 4 Chronic low back pain (four) hours as needed for Pain (scale 4-6) or Pain (scale 7-10). documented as of this encounter (statuses as of 02/23/2020) Active Problems Problem Noted Date Staghorn calculus 11/16/2018 Kidney stone 10/13/2018 Overview: Added automatically from request for manda mancia [id number] Chronic gout without tophus, unspecified cause, unspec ified site 10/01/2018 Vaginal bleeding 05/05/2018 Postmenopausal vaginal bleeding 05/05/2018 Recurrent joint pain 05/05/2018 Dehydration 01/18/2018 Fistula 12/31/2017 Overview: Added automatically from request for manda mancia [id number] Hypotension 12/25/2017 Morbid obesity with body mass [...] 06/22/2015 Pyelonephritis 06/25/2007 Overview: ICD10 Diagnosis Term Forge Press Operator Utility Type 2 diabetes mellitus with stage 3 chronic kidney d isease, without 06/25/2007 long-term current use of insulin Essential hypertension, benign 06/25/2007 Hypothyroidism 06/25/2007 Overview: ICD10 Diagnosis Term Forge Press Operator Utility documented as of this encounter (statuses as of 02/23/2020) Immunizations Name Administration Dates Next Due Influenza [...] of this encounter Implants Implanted Type Area Garment Liner Device Shelf Expiration Model / Identifier Date Serial / Lot Ivc Filter Janice Femoral [facility] #[id number] - S0 FILTER Groin Bar d 10/15/2020 [id number] / Implanted: Qty: 1 on 01/20/2018 by Karl Damon MD at [facility] 0 / [id number] documented as of this encounter Results Not on filedocumented in this encounter Visit Diagnoses Diagnosis Chronic low back pain Lumbago documented in this encounter Insurance Payer Benefit Plan / Subscriber ID Effective Dates Phone Addre ss Type Group CIGNA CIGNA II [id number] 2003-Presen HM O/PPO/POS t [place] [place] [employer] [place] [id number] 2019-Presen Medicare Adv PLUS PLUS t HMO CLASSIC/VALUE documented as of this encounter
--- OUTSIDE RECORDS SUMMARY | 2020-04-04 17:00 | XMS REPORT | Summary of Care ---
:1955 Author Organization [facility] - [facility] Address [address] [place] [address] Care Team Providers Name Role Phone MD Ajit Primary Care Provider MD Ajit Unavailable Encounter Details Date Type Department Care Team Description 02/07/2020 Orders Only [facility] Doctor Unassigned, No [address] [facility] [place] [address] [address] [place] [address] Allergies No Known Allergiesdocumented as of this encounter (statuses as of 02/17/2020) Medications Medication Sig Dispensed Refills Start Date [...] asthma, unspecified asthma severity, unspecified whether persistent albuterol 90 TAKE 2 PUFFS BY 25.5 [...] as of this encounter (statuses as of 02/17/2020) Active Problems Problem Noted Date Staghorn calculus 11/16/2018 Kidney stone 10/13/2018 Overview: Added automatically from request for manda blanche [id number] Chronic gout without tophus, unspecified cause, unspec ified site 10/01/2018 Vaginal bleeding 05/05/2018 Postmenopausal vaginal bleeding 05/05/2018 Recurrent joint pain 05/05/2018 Dehydration 01/18/2018 Fistula 12/31/2017 Overview: Added automatically from request for manda blanche [id number] Hypotension 12/25/2017 Morbid obesity with body mass [...] 06/22/2015 Pyelonephritis 06/25/2007 Overview: ICD10 Diagnosis Term Bell Person Utility Type 2 diabetes mellitus with stage 3 chronic kidney d isease, without 06/25/2007 long-term current use of insulin Essential hypertension, benign 06/25/2007 Hypothyroidism 06/25/2007 Overview: ICD10 Diagnosis Term Bell Person Utility documented as of this encounter (statuses as of 02/17/2020) Immunizations Name Administration Dates Next Due Influenza [...] of this encounter Implants Implanted Type Area Core Manager Device Shelf Expiration Model / Identifier Date Serial / Lot Ivc Filter [place] Femoral Us Bard #[id number] - S0 FILTER Groin Bar d 10/15/2020 [id number] / Implanted: Qty: 1 on 01/20/2018 by Karl Damon MD at [facility] 0 / [id number] documented as of this encounter Procedures Procedure Name Priority Date/Time Associated Diagnosis Comme nts HOME HEALTH - OTHER Routine 02/07/2020 12:01 AM CDT documented in this encounter Results Not on filedocumented in this encounter Insurance Payer Benefit Plan / Subscriber ID Effective Dates Phone Addre ss Type Group CIGNA CIGNA II [id number] 2003-Presen O/PPO/POS t [employer] [place] [employer] [place] [id number] 2019-Presen Medicare Adv PLUS PLUS t HMO CLASSIC/VALUE documented as of this encounter
--- OUTSIDE RECORDS SUMMARY | 2020-04-04 17:01 | XMS REPORT | Encounter Summary ---
:1955 Author Care Team Providers Name Role Phone Dr. Dayanna Lorenzana Primary Care Provider [phone] Reason for Visit AWV Annual Wellness Visit Female Instructions 1. Advance directive discussed w ith patient advance care planning: car e instructions 2. Depression screening 3. Depression screening positive learning about depression learning about mood disord ers citalopram 20 mg tablet 4. Chronic back pain etodolac 400 mg tablet hydrocodone 10 mg-acetamin ophen 325 mg tablet Lyrica 150 mg capsule 5. Diabetes mellitus metformin 500 mg tablet 6. Essential hypertension metoprolol succinate ER 10 0 mg tablet,extended release 24 hr valsartan 320 mg-hydrochlo rothiazide 12.5 mg tablet 7. Gout allopurinol 100 mg tablet 8. Hypothyroidism levothyroxine 75 mcg table t 9. Pulmonary embolism Xarelto 10 mg tablet 10. Insomnia tizanidine 4 mg capsule 11. Anxiety disorder alprazolam 1 mg tablet Discussion Note Completed a telephone visit with gila johnson. Patient on mutiply meds, patient encouraged to check her blood pressure f requently and take meds as directed. Patient encouraged to be very careful as her mut iple meds may cause dizziness and sedative effect, which put her at high risk for f alls. Patient denies any fall at this time. Patient reprot she gets all her meds fro m her pcp. Patient report she has enough meds currently and does not need any refills. Patient encouraged to wash hands frequently for 20 seconds, practice social distanci ng by stay home and maintaining physical space in public. Patient encouraged to s [facility] if she starts having continues cough, fever and sob. Patient verbalized understanding. Plan of Care Patient Instructions It was good to see you in the offic e today for your Medicare Annual Wellness Visit. You have been provided some information on healthy nutrition, including a diet rich in fruits and vegetables, mi nimizing simple carbohydrates, salt, and saturated fats. I want to encourage regular cardiovascular exercise such as walking at least 30 minutes daily, 5 times per week. Please remember to schedule any prevent jp health measures that we talked about today. You have also been provided education on fall prevention and community- based lifestyle interventions to help reduc e health risks and promote healthy michael mendoza in your Annual Wellness folder. Screening Recommendations 1. Vaccines Pneumonia: Next one Influenza: Recomm ended today 2. Mammography Screening: Recommended today 3. Colorectal Cancer Screening: Colonoscopy (every 10 years) Recommended today 4. Annual Depression Screen ing 5. Annual Alcohol Screening 6. Annua l Fall Risk Screening 7. Annual Health Risk Assessment Reminders Provider Appointments Return to on or around Camila burgess Office 03/12/2020 RENZO Crockett Home on or around Prudence Visit 30 05/12/2020 RENZO Crockett Lab None recorded. Referral None recorded. Procedures None recorded. Surgeries None recorded. Imaging None recorded. Medications Name Start Date allopurinol 100 mg tablet Take 1 tablet every day by oral route. alprazolam 1 mg tablet Take 1 tablet 3 times a day by oral route. citalopram 20 mg tablet Take 1 tablet every day by oral route as directed. etodolac 400 mg tablet Take 1 tablet twice a day by oral route. hydrocodone 10 mg-acetaminophen 325 mg tablet Take 1 tablet every 4 hours by oral route. levothyroxine 75 mcg tablet Take 1 tablet every day by oral route. Lyrica 150 mg capsule Take 1 capsule twice a day by oral route. metformin 500 mg tablet Take 1 tablet twice a day by oral route. metoprolol succinate ER 100 mg tablet,extended release 24 hr Take 1 tablet every day by oral route. tizanidine 4 mg capsule Take 1 capsule every 6 hours by oral route. valsartan 320 mg-hydrochlorothiazide 12.5 mg tablet Take 1 tablet every day by oral route. Xarelto 10 mg tablet Take 1 tablet every day by oral route. Medications Administered None recorded. Vitals Height Weight BMI 5 ft 8 in 230 lbs 35 kg/m2 Results Lab Results None recorded. Allergies Code Code System Name Reaction Severity Status Onset NKDA Problems Name Status Onset Date Source Hypothyroidism Active 03/08/2020 Diabetes Mellitus Active 03/08/2020 Gout Active 03/08/2020 Major Depressive Disorder Active 03/08/2020 Essential Hypertension Active 03/08/2020 Pulmonary Embolism Active 03/08/2020 Chronic Back Pain Active 03/08/2020 Bilateral Knee Pain Active 03/08/2020 Anxiety Disorder Active 03/12/2020 Insomnia Active 03/12/2020 Knee Pain Active 03/12/2020 Procedures None recorded. Vaccine List Vaccine Type influenza, injectable, quadrivalent 06/15/2019 Social History Tobacco Smoking Status Never Smoker Past Encounters 03/08/2020 Advance Directive Discussed with Patient ; Depression Screening; Depression Screening Positive; Chronic Back Pain; Diabetes Mellitus; Essential Hypertension; Gout; Hypothyroidism; Pulmonary Embolism; Insomnia; Anxiety Disorder Prudence Crockett FUR OPERATOR: [address] [facility], [address], [place] [address], Ph. History of Present Illness Mini Cog Reported By: Patient Functional Ability: Personal/Social/ 3 word reca ll: Your nurse or doctor will ask you to remember 3 words. In 5 m inutes, they will ask you to repeat them. Patient recalled 3 w ords Opioid Use Assessment Reported By: Patient Opioid Use Assessment:: Current Use of Opioids : Hyd rocodone (Vicodin/Boerne) Review of Systems Comprehensive General Adult ROS Reported By: Patient Constitutional: Constitutional: no fever, no night sweats, no significant weight loss, no exercise int olerance, weight gain (lbs) Eyes: Eyes: no dry eyes, no vision change, no irritation ENMT: Ears: no difficulty hearing, no ear pain. Nose: no frequent nosebleeds, no nose problems , no sinus problems. Mouth/Throat: no sore throat, no bleeding gums, no snoring, no dry mouth, no mouth ulcers, no oral abnorm alities, no teeth problems Cardiovascular: Cardiovascular: no chest rocael n, no arm pain on exertion, no shortness of breath when wal farzaneh, no shortness of breath when lying down, no palpitations, no known heart murmur, no lightheadedness Respiratory: Respiratory: no cough, no wh eezing, no shortness of breath, no coughing up blood, no sleep apnea Gastrointestinal: Gastrointestinal: no abdomin al pain, no nausea, no vomiting, no constipation, normal appe tite, no diarrhea, not vomiting blood, no dyspepsia, no GERD Genitourinary: Genitourinary: no incontinen ce, no difficulty urinating, no hematuria, no increased freq uency Musculoskeletal: Musculoskeletal: no muscle a ches, no muscle weakness, no swelling in the extremities, arthralgias/joint pain, back pain Integumentary: Skin: no abnormal mole, no j aundice, no rashes, no laceration Neurologic: Neurologic: no loss of consc iousness, no weakness, no numbness, no seizures, no di zziness, no migraines, no headaches, no tremor Psychiatric: Psych: no depression, no sle ep disturbances, feeling safe in a relationship, no alcohol abu se, no anxiety, no hallucinations, no suicidal thoughts Endocrine: Endocrine: no fatigue Hematologic/Lymphatic: Hematologic/Lymphatic no swo llen glands, no bruising, no excessive bleeding Allergic/Immunologic: Allergy/Immunologic: no runn y nose, no sinus pressure, no itching, no hives, no freque nt sneezing Physical Exam Telemedicine/Virtual Visit Reported By: Patient Constitutional: Level of Distress: NAD Psychiatric: Insight: good judgement. Men jackie Status: active and alert, normal mood. Memory: recent memory normal
--- OUTSIDE RECORDS SUMMARY | 2020-04-04 17:01 | XMS REPORT | Summary of Care ---
:1955 Author Organization [facility] Address [address] [place] [address] Care Team Providers Name Role Phone MD Ajit Primary Care Provider MD Ajit Unavailable Reason for Visit Reason Comments Rx Concern/Question Encounter Details Date Type Department Care Team Description 02/22/2020 Telephone [facility] Family Shahriar Fong MD Rx Concern/Question Medicine - [address] jp [place], [place] [phone] Allergies No Known Allergiesdocumented as of this encounter (statuses as of 02/23/2020) Medications Medication Sig Dispensed Refills Start Date [...] back pain 6 HOURS NEEDED FOR PAIN ALLOPURINOL 100 [...] PE BY MOUTH EVERY (pulmonary DAY thromboembolism) ETODOLAC 400 mg TAKE 1 TABLET 60 tablet 2 02/14/2020 Active tabletIndications: BY MOUTH TWICE Chronic low back pain, A DAY unspecified back pain laterality, unspecified whether sciatica present documented as of this encounter (statuses as of 02/23/2020) Active Problems Problem Noted Date Staghorn calculus 11/16/2018 Kidney stone 10/13/2018 Overview: Added automatically from request for manda hodgey [id number] Chronic gout without tophus, unspecified cause, unspec ified site 10/01/2018 Vaginal bleeding 05/05/2018 Postmenopausal vaginal bleeding 05/05/2018 Recurrent joint pain 05/05/2018 Dehydration 01/18/2018 Fistula 12/31/2017 Overview: Added automatically from request for manda blanche [id number] Hypotension 12/25/2017 Morbid obesity with body mass [...] 06/22/2015 Pyelonephritis 06/25/2007 Overview: ICD10 Diagnosis Term Envelope Patternmaker Utility Type 2 diabetes mellitus with stage 3 chronic kidney d isease, without 06/25/2007 long-term current use of insulin Essential hypertension, benign 06/25/2007 Hypothyroidism 06/25/2007 Overview: ICD10 Diagnosis Term Envelope Patternmaker Utility documented as of this encounter (statuses [...] of this encounter Implants Implanted Type Area Veneer Sander Device Shelf Expiration Model / Identifier Date Serial / Lot Ivc Filter [place] Femoral [facility] #[id number] - S0 FILTER Groin Bar d 10/15/2020 [id number] / Implanted: Qty: 1 on 01/20/2018 by Karl Damon MD at [facility] 0 / [id number] documented as of this encounter Results Not on filedocumented in this encounter Insurance Payer Benefit Plan / Subscriber ID Effective Dates Phone Addre ss Type Group CIGNA CIGNA II [id number] 2003-Presen O/PPO/POS t [place]ARE [place] WELL[place]ARE [place] [id number] 2019-Presen Medicare Adv PLUS PLUS t HMO CLASSIC/VALUE documented as of this encounter
--- OUTSIDE RECORDS SUMMARY | 2020-04-04 17:02 | XMS REPORT | Summary of Care ---
:1955 Author Organization [facility] Address [address] [place] [address] Care Team Providers Name Role Phone MD Ajit Primary Care Provider MD Ajit Unavailable Reason for Visit Reason Comments Refill Request Encounter Details Date Type Department Care Team Description 03/21/2020 Refill [facility] Family Medicine Arthur Stiles MD Refill Request - [address] [place] [address] [place] [address] [phone] Allergies No Known Allergiesdocumented as of this encounter (statuses as of 03/21/2020) Medications Medication Sig Dispensed Refills Start End [...] HYDROcodone-acetaminop Take 1 tablet 150 tablet 0 03/21/20 Active hen 10-325 mg by mouth 20 tabletIndications: every 4 chronic pain (four) hours as needed for Pain (scale 4-6) or Pain (scale 7-10). Indications: chronic pain HYDROcodone-acetaminop Take 1 tablet 150 tablet 0 02/23/20 Discontinued hen 10-325 mg by mouth 20 020 (Reord er) tabletIndications: every 4 Chronic low back pain (four) hours as needed for Pain (scale 4-6) or Pain (scale 7-10). documented as of this encounter (statuses as of 03/21/2020) Active Problems Problem Noted Date Staghorn calculus 11/16/2018 Kidney stone 10/13/2018 Overview: Added automatically from request for manda mancia [id number] Chronic gout without tophus, unspecified cause, unspec ified site 10/01/2018 Vaginal bleeding 05/05/2018 Postmenopausal vaginal bleeding 05/05/2018 Recurrent joint pain 05/05/2018 Dehydration 01/18/2018 Fistula 12/31/2017 Overview: Added automatically from request for manda mancia [id number] Hypotension 12/25/2017 Morbid obesity with body mass [...] Pyelonephritis 06/25/2007 Overview: ICD10 Diagnosis Term Director Of Market Intelligence Utility Type 2 diabetes mellitus with stage 3 chronic kidney d isease, without 06/25/2007 long-term current use of insulin Essential hypertension, benign 06/25/2007 Hypothyroidism 06/25/2007 Overview: ICD10 Diagnosis Term Director Of Market Intelligence Utility documented as of this encounter (statuses as of 03/21/2020) Immunizations Name Administration Dates Next Due Influenza Virus Vaccine Quad .5 mL IM 6+ MO 10/21/2018 Influenza Virus Vaccine Quad ID 18-64 YRS 07/06/2015 Influenza Virus Vaccine Quad IM 3+ YRS 06/23/2017 TDAP 10/21/2018 documented as of this encounter Social [...] 08/26/2017, 03/14/2017, Additional history exists INFLUENZA VACCINE (#1) 2020 10/21/2018, 06/23/2017 PAP SMEAR 06/22/2020 06/22/2015 Breast Cancer Screening 11/11/2020 Postpone d from (MAMMOGRAM) 1996 (Refu sed) COLONOSCOPY 12/03/2027 12/02/2017 DTaP,Tdap,and Td Vaccines 10/21/2028 10/21/2018 (2 - Td) HEPATITIS C (HCV) SCREEN Completed 01/20/2018, 07/06/2015 documented as of this encounter Implants Implanted Type Area Statue Maker Device Shelf Expiration Model / Identifier Date Serial / Lot Ivc Filter [place] Femoral [facility] #[id number] - S0 FILTER Groin Bar d 10/15/2020 [id number] / Implanted: Qty: 1 on 01/20/2018 by Karl Damon MD at [facility] 0 / [id number] documented as of this encounter Results Not on filedocumented in this encounter Visit Diagnoses Diagnosis Chronic low back pain Lumbago Anxiety Anxiety state, unspecified Insomnia, unspecified type documented in this encounter Insurance Payer Benefit Plan / Subscriber ID Effective Dates Phone Addre ss Type Group CIGNA CIGNA II [id number] 2003-Presen HM O/PPO/POS t WE[place]CARE [place] WELLCARE [place] [id number] 2019-Presen Medicare Adv PLUS PLUS t HMO CLASSIC/VALUE documented as of this encounter
--- OUTSIDE RECORDS SUMMARY | 2020-04-04 17:02 | XMS REPORT | Summary of Care ---
:1955 Author Organization [facility] Address [address] [place] [address] Care Team Providers Name Role Phone MD Ajit Primary Care Provider MD Ajit Unavailable Reason for Visit Reason Comments Assessment Encounter Details Date Type Department Care Team Description 03/28/2020 Telephone [facility] Family Medicine Arthur Stiles MD Assessment - [address] [place]ell [facility] [place] [address] [place] [address] [phone] Allergies No Known Allergiesdocumented as of this encounter (statuses as of 03/29/2020) Medications Medication Sig Dispensed Refills Start Date [...] back pain laterality, unspecified whether sciatica present HYDROcodone-acetaminophe Take 1 tablet 150 tablet 0 03/21/2020 Active n 10-325 mg by mouth every tabletIndications: 4 (four) hours chronic pain as needed for Pain (scale 4-6) or Pain (scale 7-10). Indications: chronic pain documented as of this encounter (statuses as of 03/29/2020) Active Problems Problem Noted Date Staghorn calculus 11/16/2018 Kidney stone 10/13/2018 Overview: Added automatically from request for manda mancia [id number] Chronic gout without tophus, unspecified cause, unspec ified site 10/01/2018 Vaginal bleeding 05/05/2018 Postmenopausal vaginal bleeding 05/05/2018 Recurrent joint pain 05/05/2018 Dehydration 01/18/2018 Fistula 12/31/2017 Overview: Added automatically from request for manda mancia [id number] Hypotension 12/25/2017 Morbid obesity with body mass [...] 06/22/2015 Pyelonephritis 06/25/2007 Overview: ICD10 Diagnosis Term Flask Maker Utility Type 2 diabetes mellitus with stage 3 chronic kidney d isease, without 06/25/2007 long-term current use of insulin Essential hypertension, benign 06/25/2007 Hypothyroidism 06/25/2007 Overview: ICD10 Diagnosis Term Flask Maker Utility documented as of this encounter (statuses as of 03/29/2020) Immunizations Name Administration Dates Next Due Influenza [...] of this encounter Implants Implanted Type Area Internal Medicine Hospitalist Device Shelf Expiration Model / Identifier Date Serial / Lot Ivc Filter [place] Femoral [facility] #[id number] - S0 FILTER Groin Bar d 10/15/2020 [id number] / Implanted: Qty: 1 on 01/20/2018 by Karl Damon MD at [facility] 0 / [id number] documented as of this encounter Results Not on filedocumented in this encounter Insurance Payer Benefit Plan / Subscriber ID Effective Dates Phone Addre ss Type Group CIGNA CIGNA II [id number] 2003-Presen O/PPO/POS t [place] [place] WE[place] [id number] 2019-Presen Medicare Adv PLUS PLUS t HMO CLASSIC/VALUE documented as of this encounter
--- OUTSIDE RECORDS SUMMARY | 2020-04-04 17:02 | XMS REPORT | Summary of Care ---
:1955 Author Organization [facility] Address [address] [place] [address] Care Team Providers Name Role Phone MD Ajit Primary Care Provider MD Ajit Unavailable Reason for Visit Reason Comments Rx Concern/Question Encounter Details Date Type Department Care Team Description 03/24/2020 Telephone [facility] Family Shahriar Fong MD Rx Concern/Question Medicine - [address] jp [place], [place] [address] [phone] Allergies No Known Allergiesdocumented as of this encounter (statuses as of 03/27/2020) Medications Medication Sig Dispensed Refills Start Date [...] as of this encounter (statuses as of 03/27/2020) Active Problems Problem Noted Date Staghorn calculus 11/16/2018 Kidney stone 10/13/2018 Overview: Added automatically from request for manda blanche [id number] Chronic gout without tophus, unspecified cause, unspec ified site 10/01/2018 Vaginal bleeding 05/05/2018 Postmenopausal vaginal bleeding 05/05/2018 Recurrent joint pain 05/05/2018 Dehydration 01/18/2018 Fistula 12/31/2017 Overview: Added automatically from request for manda mancia [id number] Hypotension 12/25/2017 Morbid obesity with body mass [...] 06/22/2015 Pyelonephritis 06/25/2007 Overview: ICD10 Diagnosis Term Lab Coordinator Utility Type 2 diabetes mellitus with stage 3 chronic kidney d isease, without 06/25/2007 long-term current use of insulin Essential hypertension, benign 06/25/2007 Hypothyroidism 06/25/2007 Overview: ICD10 Diagnosis Term Lab Coordinator Utility documented as of this encounter (statuses as of 03/27/2020) Immunizations Name Administration Dates Next Due Influenza [...] of this encounter Implants Implanted Type Area Golf Professional Device Shelf Expiration Model / Identifier Date Serial / Lot Ivc Filter [place] Femoral [employer] #[id number] - S0 FILTER Groin Bar d 10/15/2020 [id number] / Implanted: Qty: 1 on 01/20/2018 by Karl Damon MD at [facility] 0 / [id number] documented as of this encounter Results Not on filedocumented in this encounter Insurance Payer Benefit Plan / Subscriber ID Effective Dates Phone Addre ss Type Group CIGNA CIGNA II [id number] 2003-Presen HM O/PPO/POS t [place] [place] WE[place] [id number] 2019-Presen Medicare Adv PLUS PLUS t HMO CLASSIC/VALUE documented as of this encounter
[2020-04-04 18:16] LABS: Absolute Lymphocytes (CBC) 0.5 K/uL (0.7-4.9); Basophils % 0.4 % (0-1.3); Lymphocytes % 6.8 % (15.3-44.8); RBC Red Blood Cell Count 5.16 M/uL (3.86-4.86)
[2020-04-04 18:42] LABS: ALT/SGPT 25 U/L (12-78); Albumin 3.1 g/dL (3.4-5.0); Alkaline Phosphatase 74 U/L (45-117); BUN Blood Urea Nitrogen 32 mg/dL (7-18); Bicarbonate 31 mmol/L (21-32); Bilirubin Total 0.7 mg/dL (0.2-1.0); Ferritin 231.8 ng/mL (8-388); Glucose Level 115 mg/dL (74-106); Protein, Total 8.7 g/dL (6.4-8.2); Sodium Level 141 mmol/L (136-145); Troponin (Emerg Dept Use Only) < 0.02 ng/mL (0.0-0.045)
[2020-04-04 18:43] LABS: Bilirubin Direct 0.2 mg/dL (0-0.2)
--- NOTE | 2020-04-04 19:04 | RAD REPORT ---
EXAM DESCRIPTION: RAD - Chest Single View - 04/04/2020 5:59 pm CLINICAL HISTORY: COVID +;COPD;Cough;Dyspnea Chest pain. COMPARISON: Chest Single View dated 02/13/2018; Chest Single View dated 12/24/2017; Chest Single View d ated 10/20/2017; Chest Single View dated 10/30/2016 FINDINGS: Portable technique limits examination quality. Extensive bilateral pulmonary opacities are noted, worse on the right, likely representing bilateral pneumonia. The heart is normal in size. No displaced fractures.
--- NOTE | 2020-04-04 19:29 | RAD REPORT ---
EXAM DESCRIPTION: CT - Chest For Pe Angio - 04/04/2020 7:17 pm CLINICAL HISTORY: Chest pain. COVID +;Dyspnea;COPD COMPARISON: Chest Abd Pelvis Wo Con dated 10/20/2017; THORAX WO CONTRAST dated 04/18/2013 TECHNIQUE: CT angiogram of the pulmonary arteries was performed with MIP. All CT scans are performed using dose optimization technique as appropriate and may include automated exposure control or mA/KV adjustment according to patient size. FINDINGS: No evidence of pulmonary thromboembolism. No acute aortic finding demonstrated. Ground-glass and alveolar lung opacities are present, greatest in the lower lobes on the left, superi mposed on chronic changes. No significant pericardial or pleural fluid. Mild mediastinal and hilar lymphadenopathy seen. No concerning bony finding. Diffuse thyroid goiter is seen. IMPRESSION: No evidence of pulmonary thromboembolism. Moderate ground-glass and alveolar lung opacities are seen superimposed on chronic changes, suspiciou s for viral/ COVID-19 infection.
[2020-04-04 19:36] LABS: AST/SGOT 42 U/L (15-37); Potassium 4.2 mmol/L (3.5-5.1)
[2020-04-04 19:46] LABS: Arterial Blood Carboxyhemoglob 1.8 % (0-1.5); Blood Gas Oxyhemoglobin 92.1 % (94-97); Blood O2 Saturation 94.7 % (92-98.5)
--- NOTE | 2020-04-04 19:47 | ER ---
Nurse's Notes [facility] Name: Rosio Jain Age: 64 yrs Sex: Female : 1955 Arrival Date: 04/04/2020 Time: 16:56 Bed 3 Private MD: Diagnosis: Acute dyspnea. Hypoxia. Bilateral pneumonia. Positive Covid - 19 Presentation: 04/04 16:54 Initial Sepsis Screen: Does the patient meet any 2 criteria? No. Patient's initial jl7 sepsis screen is negative. Does the patient have a suspected source of infection? No. Patient's initial sepsis screen is negative. Risk Assessment: Do you want to hurt yourself or someone else? Patient reports no desire to harm self or others. Onset of symptoms was April 04, 2020. Care prior to arrival: None. Transition of care: patient was not received from another setting of care. 16:54 Acuity: DYAN 2 jl7 16:57 Chief complaint: EMS states: Pt got COVID+ result this morning from [place], had some jl7 shortness of breath and used her Albuterol which made her shaky, pt reported O2 sats were at 84%. Coronavirus screen: Patient reports a cough. Patient reports shortness of breath or difficulty breathing. Patient denies measured and/or subjective temperature greater than 100.4F prior to today's visit. Patient denies travel on a cruise ship or to a country the [facility] currently lists as an affected area. Patient denies contact with known and/or suspected case of COVID-19. Patient instructed to continue to wear a mask when interacting with others. Patient moved to private room, placed in contact and droplet isolation with eye protection until further assessment. Prior COVID test collected on: 04-01-2020 [facility]. Ebola Screen: No symptoms or risks identified at this time. 16:57 Method Of Arrival: EMS: [facility] jl7 Triage Assessment: 17:12 General: Appears in no apparent distress. uncomfortable, Behavior is calm, cooperative, jl7 appropriate for age. Pain: Complains of pain in "My Kidney's" Pain currently is 10 out of 10 on a pain scale. Pain began years ago. Neuro: Level of Consciousness is awake, alert, obeys commands. Cardiovascular: Patient's skin is warm and dry. Respiratory: Reports shortness of breath on exertion Airway is patent Respiratory effort is even, labored, Respiratory pattern is symmetrical, tachypnea Onset: The symptoms/episode began/occurred this morning, the patient has moderate shortness of breath. Derm: Skin is pink, warm \\T\\ dry. Historical: - Allergies: 17:12 NKA; jl7 - Home Meds: 17:12 alprazolam 1 mg Oral tab [Active]; citalopram 20 mg tab 1 tab once daily [Active]; jl7 folic acid 400 mcg Oral tab 1 tab once daily [Active]; furosemide 20 mg Oral tab 1 tab once daily [Active]; levothyroxine 175 mcg tab [Active]; metoprolol tartrate 50 mg Oral tab [Active]; valsartan-hydrochlorothiazide 320-25 mg Oral tab 1 tab once daily [Active]; Xarelto 20 mg Oral tab 1 tab once daily [Active]; zolpidem 10 mg Oral tab 1 tab once daily [Active]; - PMHx: 17:12 Anxiety; Diabetes - NIDDM; Hypertension; Hypothyroidism; COPD; Asthma; PE; jl7 - Immunization history:: Adult Immunizations up to date. - Social history:: Smoking status: Patient denies any tobacco usage or history of. - Family history:: not pertinent. - Hospitalizations: : No recent hospitalization is reported. Screenin:05 Abuse screen: Denies threats or abuse. Denies injuries from another. Nutritional jr10 screening: No deficits noted. Tuberculosis screening: No symptoms or risk factors identified. Fall Risk IV access (20 points). Gait- Weak (10 pts.). Mental Status- Oriented to own ability (0 pts). Assessment: 17:30 General: Appears uncomfortable, Behavior is calm, cooperative. Pain: Denies pain. jr10 Neuro: No deficits noted. Cardiovascular: No deficits noted. Denies chest pain, Edema is absent. Rhythm is regular. Respiratory: Reports shortness of breath cough that is productive, reports brown productive sputum Respiratory effort is even, unlabored, Respiratory pattern is regular, tachypnea Breath sounds with crackles bilaterally. pt reports hx of asthma and COPD, states that she used her inhaler and nebulizer at home with moderate relief but then became shaky and increased sob. Pt reports sob worse with exertion; initial O2 sats upon arrival to ED noted to be 80%; pt denies chronic home O2 use. GI: No deficits noted. : No deficits noted. Derm: No deficits noted. Musculoskeletal: No deficits noted. 19:50 General: Appears in no apparent distress. Pain: Denies pain. Neuro: Level of ea Consciousness is awake, alert, obeys commands, Oriented to person, place, time. Respiratory: Airway is patent Respiratory effort is even, unlabored, Respiratory pattern is regular, symmetrical. Derm: Skin is pink, warm \\T\\ dry. 20:52 Reassessment: patient seen and examined by Dr. Ruiz and advised for admission. mg2 patient agreed. 22:11 Reassessment: Patient and/or family updated on plan of care and expected duration. Pain ea level reassessed. Patient is alert, oriented x 3, equal unlabored respirations, skin warm/dry/pink. Report called to ICU nurse, nurse reports they will call when they have a bed available in ICU room 8. Vital Signs: 16:54 BP 159 / 61; Pulse 71; Resp 21 S; Temp 99.3(O); Pulse Ox 80% on R/A; Weight 163.29 kg; jl7 Height 5 ft. 9 in. (175.26 cm); Pain 10/10; 17:14 Pulse Ox 97% 3 lpm ; jl7 18:09 BP 136 / 78; Pulse 70; Resp 20; Pulse Ox 97% on 3 lpm NC; jr10 20:14 BP 140 / 88; Pulse 65; Resp 18; Pulse Ox 97% ; ea 20:37 BP 132 / 79; Pulse 71; Resp 18; Temp 99.2; Pulse Ox 97% on 3 lpm NC; mg2 21:30 BP 138 / 84; Pulse 60; Resp 18; Pulse Ox 96% on 2 lpm NC; mg2 22:23 BP 140 / 82; Pulse 58; Resp 18; Pulse Ox 96% on 2 lpm NC; mg2 16:54 Body Mass Index 53.16 (163.29 kg, 175.26 cm) jl7 ED Course: 16:56 Patient arrived in ED. jl7 17:00 Chapo Lipscomb MD is Attending Physician. rn 17:03 Radha Urias is Primary Nurse. jr10 17:06 Triage completed. jl7 17:12 Arm band placed on right wrist. jl7 17:24 Radha Urias is Primary Nurse. jr10 17:59 CXR XRAY In Process Unspecified. EDMS 18:05 Inserted saline lock: 20 gauge in right forearm, using aseptic technique. Blood jr10 collected. IV Flushed. 19:06 Attending Physician role handed off by Chapo Lipscomb MD pkdodie 19:06 Ronal Christianson MD is Attending Physician. pkl 19:17 CT Chest For PE Angio In Process Unspecified. EDMS 19:41 Supa Ruiz is Hospitalizing Provider. pkl 20:38 No provider procedures requiring assistance completed. Patient admitted, IV remains in mg2 place. 20:39 Patient has correct armband on for positive identification. Door closed. mg2 Administered Medications: No medications were administered Outcome: 19:46 Decision to Hospitalize by Provider. pkl 20:53 Instructed on the need for admit, Demonstrated understanding of instructions. ea 22:10 Condition: stable mg2 22:56 Patient left the ED. mg2 Signatures: Dispatcher [employer] EDMS Ronal Christianson MD MD pkChapo Reed MD MD rn Leal, Jahala RN RN jl7 Harmony Longoria RN RN ea Gardose, Michele, RN MARK mg2 Radha Urias, RN RN jr10 Corrections: (The following items were deleted from the chart) 18:37 18:05 Inserted saline lock: 20 gauge in right hand, using aseptic technique. Blood jr10 collected. IV Flushed jr10 20:51 20:37 BP 132 / 79; Pulse 71bpm; Resp 18bpm; mg2 mg2
--- NOTE | 2020-04-04 22:19 | P.HP ---
Certification for Inpatient Patient admitted to: Inpatient With expected LOS: >2 Midnights Practitioner: I am a practitioner with admitting privileges, knowledge of patient current condition, hospital course, and medical plan of care. Services: Services provided to patient in accordance with Admission requirements found in Title 42 Section 412.3 of the Code of Federal Regulations Patient History Date of Service: 04/04/20 Reason for admission: Shortness of breath History of Present Illness: 64-year-old woman with a history of COPD, pulmonary embolism and DVT on Xarelto, history of diabetes mellitus type 2 presented emergency department with a complaint of progressive shortness of breath, associated with wheezing. She was at [place] [facility] yesterday with with similar symptom. Patient tested positive for COVID 19. Her oxygen saturation on arrival to the ED today was 80% on room air. Her CTA thorax reported bilateral ground-glass opacities superimposed on chronic changes, indicated 1 viral pneumonia. Patient was maintained on 3 L of oxygen by nasal cannula in the ED. She is admitted for further management. Allergies No Known Allergies Allergy (Unverified 12/30/16 10:05) Home Medications: ALPRAZolam [Alprazolam] 1 mg PO TID PRN 02/12/18 Furosemide [Lasix*] 20 mg PO BEDTIME 02/12/18 Metoprolol Tartrate [Lopressor*] 50 mg PO BID 02/12/18 Valsartan/Hydrochlorothiazide [Valsartan-Hctz 320-25 mg Tab] 1 tab PO DAILY 02/12/18 Zolpidem Tartrate [Ambien*] 10 mg PO BEDTIME 02/12/18 Citalopram [Celexa*] 1 tab PO DAILY 03/24/18 allopurinoL [Zyloprim*] 1 tab PO DAILY 03/24/18 Diclofenac Sodium 50 mg PO BID 04/05/20 Folic Acid 0.4 mg PO DAILY 04/05/20 Tizanidine [Zanaflex] 4 mg PO Q6HP PRN 04/05/20 - Past Medical/Surgical History Diabetic: Yes -: HTN, -: NIDDM -: hypothyroid -: DVT -: Kidney stones -: Anxiety -: PE -: Tubal Ligation -: Kidney stone removal -: cyst on thyroid removed -: enterocutaneous fistula repair - Family History Father -: Heart disease Notes: she was adopted,, she does not know her family history - Social History Alcohol use: No CD- Drugs: No Caffeine use: Yes Review of Systems Other: Except as documented, all other systems reviewed and negative. Physical Examination - Physical Exam General: Alert, In no apparent distress, Oriented x3 HEENT: Mucous membr. moist/pink, Sclerae nonicteric Neck: Supple, JVD not distended Respiratory: Crackles/rales (Bilateral) Cardiovascular: No edema, Regular rate/rhythm, Normal S1 S2 Capillary refill: <2 Seconds Gastrointestinal: Normal bowel sounds, Soft and benign, Non-distended, No tenderness Musculoskeletal: No swelling, No erythema Integumentary: No rashes, No tenderness/swelling Neurological: Normal strength at 5/5 x4 extr, Cranial nerves 3-12 intact - Studies Laboratory Data (last 24 hrs) 04/04/20 17:49: WBC 6.8, Hgb 15.9 H, Hct 48.0 H, Plt Count 115 L 04/04/20 17:49: Sodium 141, Potassium 4.2, BUN 32 H, Creatinine 1.33 H, Glucose 115 H, Total Bilirubin 0.7, AST 42 H, ALT 25, Alkaline Phosphatase 74 Assessment and Plan - Problems (Diagnosis) (1) Viral pneumonia Current Visit: Yes Status: Acute (2) COVID-19 Current Visit: Yes Status: Acute (3) Diabetes mellitus type 2 in obese Current Visit: Yes Status: Acute (4) Acute respiratory failure with hypoxemia Current Visit: Yes Status: Acute (5) History of pulmonary embolism Current Visit: No Status: Acute (6) Chronic kidney disease, stage 3 Current Visit: Yes Status: Acute - Plan Admit to the medical floor. Start bronchodilators, IV dexamethasone, IV Zithromax. High risk for progression of disease given patient's comorbidities. IV hydration Consult to pulmonary. Supplemental oxygen Blood sugar control with insulin sliding scale and Lantus insulin Continue Xarelto history of PE and DVT. Monitor CBC and renal function closely. - Advance Directives Does patient have a Living Will: Yes Does patient have a Durable POA for Healthcare: Yes
--- NOTE | 2020-04-04 22:57 | EDPHYS ---
Physician Documentation [facility] Name: Rosio Jain Age: 64 yrs Sex: Female : 1955 Arrival Date: 04/04/2020 Time: 16:56 Bed 3 Private MD: ED Physician Ronal Christianson HPI: 04/04 18:47 This 64 yrs old Female presents to ER via EMS with complaints of Shortness Of rn Breath - COVID+. 18:47 The patient has shortness of breath at rest, with light activity. Onset: The rn symptoms/episode began/occurred yesterday. Duration: The symptoms are intermittent. The patient's shortness of breath is alleviated by inhaler. Severity of symptoms: At their worst the symptoms were moderate in the emergency department the symptoms have improved. The patient has not experienced similar symptoms in the past. Reports tested positive for COVID recently, notified of results yesterday, + sob at home, improved with inhaler, denies oxygen at home, 80% on RA here, reports productive cough and generalized weakness. . Historical: - Allergies: 17:12 NKA; jl7 - Home Meds: 17:12 alprazolam 1 mg Oral tab [Active]; citalopram 20 mg tab 1 tab once daily [Active]; jl7 folic acid 400 mcg Oral tab 1 tab once daily [Active]; furosemide 20 mg Oral tab 1 tab once daily [Active]; levothyroxine 175 mcg tab [Active]; metoprolol tartrate 50 mg Oral tab [Active]; valsartan-hydrochlorothiazide 320-25 mg Oral tab 1 tab once daily [Active]; Xarelto 20 mg Oral tab 1 tab once daily [Active]; zolpidem 10 mg Oral tab 1 tab once daily [Active]; - PMHx: 17:12 Anxiety; Diabetes - NIDDM; Hypertension; Hypothyroidism; COPD; Asthma; PE; jl7 - Immunization history:: Adult Immunizations up to date. - Social history:: Smoking status: Patient denies any tobacco usage or history of. - Family history:: not pertinent. - Hospitalizations: : No recent hospitalization is reported. 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 Exam: 18:47 Constitutional: This is a well developed, well nourished patient who is awake, alert, rn + mild tachypnea Head/Face: Normocephalic, atraumatic. Cardiovascular: Regular rate and rhythm. No pulse deficits. Respiratory: + mild tachypnea, diminished at bases. Abdomen/GI: soft, non-tender Skin: Warm, dry MS/ Extremity: Pulses equal, no cyanosis. Neurovascular intact. Full, normal range of motion. Equal circumference. Neuro: Awake and alert, GCS 15, oriented to person, place, time, and situation. Cranial nerves II-XII grossly intact. Motor strength 5/5 in all extremities. Sensory grossly intact Vital Signs: 16:54 BP 159 / 61; Pulse 71; Resp 21 S; Temp 99.3(O); Pulse Ox 80% on R/A; Weight 163.29 kg; jl7 Height 5 ft. 9 in. (175.26 cm); Pain 10/10; 17:14 Pulse Ox 97% 3 lpm ; jl7 18:09 BP 136 / 78; Pulse 70; Resp 20; Pulse Ox 97% on 3 lpm NC; jr10 20:14 BP 140 / 88; Pulse 65; Resp 18; Pulse Ox 97% ; ea 20:37 BP 132 / 79; Pulse 71; Resp 18; Temp 99.2; Pulse Ox 97% on 3 lpm NC; mg2 21:30 BP 138 / 84; Pulse 60; Resp 18; Pulse Ox 96% on 2 lpm NC; mg2 22:23 BP 140 / 82; Pulse 58; Resp 18; Pulse Ox 96% on 2 lpm NC; mg2 16:54 Body Mass Index 53.16 (163.29 kg, 175.26 cm) jl7 MDM: 17:00 Patient medically screened. rn 18:50 Differential diagnosis: pneumonia, Pneumothorax pulmonary edema, reactive airway rn disease. Transition of care: After a detail discussion of the patient's case, care is transferred to Ronal Christianson MD. 19:40 Data reviewed: vital signs, nurses notes, lab test result(s), EKG, radiologic studies, pkl CT scan, plain films. ED course: talked to fanta Munguia. 04/04 17:13 Order name: Blood Culture Adult (2) rn 04/04 17:13 Order name: BMP; Complete Time: 19:47 rn 04/04 17:13 Order name: C-Reactive Protein; Complete Time: 19:47 rn 04/04 17:13 Order name: CBC with Diff; Complete Time: 18:29 rn 04/04 17:13 Order name: D-Dimer; Complete Time: 18:29 rn 04/04 17:13 Order name: Ferritin; Complete Time: 19:47 rn 04/04 17:13 Order name: Lactate; Complete Time: 19:14 rn 04/04 17:13 Order name: LFT's; Complete Time: 19:47 rn 04/04 17:13 Order name: Procalcitonin; Complete Time: 19:30 rn 04/04 17:13 Order name: Troponin (emerg Dept Use Only); Complete Time: 19:47 rn 04/04 17:13 Order name: CXR XRAY; Complete Time: 19:14 rn 04/04 17:13 Order name: EKG; Complete Time: 17:14 rn 04/04 18:32 Order name: CT Chest For PE Angio; Complete Time: 19:30 rn 04/04 19:15 Order name: ABG; Complete Time: 23:03 pkl 04/04 17:13 Order name: Cardiac monitoring; Complete Time: 17:18 rn 04/04 17:13 Order name: Droplet/Contact Precautions; Complete Time: 17:18 rn 04/04 17:13 Order name: EKG - Nurse/Tech; Complete Time: 19:51 rn 04/04 17:13 Order name: IV Start; Complete Time: 19:13 rn 04/04 17:13 Order name: O2 Per Protocol; Complete Time: 17:31 rn 04/04 17:13 Order name: O2 Sat Monitoring; Complete Time: 17:31 rn Administered Medications: No medications were administered Disposition: 04/04/20 19:46 Hospitalization ordered by Supa Ruiz for Inpatient Admission. Preliminary diagnosis is Acute dyspnea. Hypoxia. Bilateral pneumonia. Positive Covid - 19. - Bed requested for Intensive Care Unit. - Status is Inpatient Admission. mg2 - Condition is Stable. - Problem is new. - Symptoms are unchanged. Signatures: Dispatcher [employer] EDMS Ruma Arenas RN RN mw Ronal Christianson MD MD pkl Chapo Lipscomb MD MD rn Sheila Quintero RN RN jl7 Bart Perez RN RN mg2 Corrections: (The following items were deleted from the chart) 20:31 19:46 Hospitalization Ordered by Supa Ruiz for Inpatient Admission. Preliminary diagnosis is Acute dyspnea. Hypoxia. Bilateral pneumonia. Positive Covid - 19. Bed requested for Telemetry/MedSurg (Inpatient). Status is Inpatient Admission. Condition is Stable. Problem is new. Symptoms are unchanged. pkl 22:56 20:31 04/04/2020 19:46 Hospitalization Ordered by Supa Ruiz for Inpatient mg2 Admission. Preliminary diagnosis is Acute dyspnea. Hypoxia. Bilateral pneumonia. Positive Covid - 19. Bed requested for Intensive Care Unit. Status is Inpatient Admission. Condition is Stable. Problem is new. Symptoms are unchanged.
[2020-04-04] MEDS ORDERED: AZITHROMYCIN IV 500 MG in NA CHLORIDE 0.9% 250 ML IVPB SCH (23:00)
[2020-04-04] MEDS ORDERED: NA CHLORIDE 0.9% 1,000 ML IV SCH (23:24)
[2020-04-04] MEDS ORDERED: ALBUTEROL INHALER 60 PUFF/8 GM IH PRN (23:24)
[2020-04-05 00:10] VITALS: BMI 58.9
[2020-04-05] MEDS ORDERED: AZITHROMYCIN 500 MG INJ IVPB ONE (00:58)
[2020-04-05] MEDS ORDERED: NA CHLORIDE 0.9% 250 ML ONE (00:59)
[2020-04-05] MEDS ORDERED: dexAMETHasone 10 MG/ML VIAL IV SCH (01:00)
[2020-04-05 04:22] LABS: Absolute Lymphocytes (CBC) 0.7 K/uL (0.7-4.9); Basophils % 0.2 % (0-1.3); Hematocrit 47.7 % (36.0-45.0); Protime INR 1.15; RBC Red Blood Cell Count 5.06 M/uL (3.86-4.86)
[2020-04-05 04:38] LABS: Magnesium 1.8 mg/dL (1.8-2.4); Phosphorus 3.6 mg/dL (2.5-4.9); Potassium 3.9 mmol/L (3.5-5.1)
[2020-04-05] MEDS ORDERED: POTASSIUM CL SA 10 MEQ TAB PO ONE (07:00)
[2020-04-05] MEDS ORDERED: MAGNESIUM SULFATE 1 gm IVPB 1 GM/100 ML BAG IV ONE (07:00)
[2020-04-05] MEDS: INSULIN -REGULAR HUMAN 50 UNIT/0.5 ML ML SQ SCH ×4 (07:30→21:00)
[2020-04-05] MEDS ORDERED: TIZANIDINE 4 MG TABLET PO PRN (07:44)
[2020-04-05] MEDS: IPRATROPIUM 200 PUFF/12.9 GM INH IH SCH ×4 (09:00→21:00)
[2020-04-05] MEDS: dexAMETHasone 4 MG/ML VIAL IV SCH ×2 (09:00→17:34)
[2020-04-05] MEDS: FOLIC ACID 1 MG TABLET PO SCH (09:00)
[2020-04-05] MEDS: hydroCHLOROthiazide 25 MG TAB PO SCH (09:00)
[2020-04-05] MEDS: allopurinoL 100 MG TAB PO SCH (09:00)
[2020-04-05] MEDS: CITALOPRAM 10 MG TABLET PO SCH (09:00)
[2020-04-05] MEDS: VALSARTAN 160 MG TAB PO SCH (09:00)
[2020-04-05] MEDS: METOPROLOL TAR 50 MG TAB PO SCH ×2 (09:00→20:38)
[2020-04-05] MEDS ORDERED: HOME MED 1 EA UNK (Valsartan/Hydrochlorothiazide [Valsartan-Hctz 320-25 Mg Tab] 1 TAB) PO SCH (09:00)
--- NOTE | 2020-04-05 09:45 | P.DS ---
Admission Date: 04/04/20 Discharge Date: 04/05/20 Discharge Condition: FAIR Reason for Admission: Shortness of breath Brief History of Present Illness: 64-year-old woman with a history of COPD, pulmonary embolism and DVT on Xarelto, history of diabetes mellitus type 2 presented emergency department with a complaint of progressive shortness of breath, associated with wheezing. She was at [place] [facility] yesterday with with similar symptom. Patient tested positive for COVID 19. Her oxygen saturation on arrival to the ED today was 80% on room air. Her CTA thorax reported bilateral ground-glass opacities superimposed on chronic changes, indicated 1 viral pneumonia. Patient was maintained on 3 L of oxygen by nasal cannula in the ED. She is admitted for further management. Hospital Course: Start bronchodilators, IV dexamethasone, IV Zithromax. High risk for progression of disease given patient's comorbidities. IV hydration Consult to pulmonary. Supplemental oxygen Blood sugar control with insulin sliding scale and Lantus insulin Continue Xarelto history of PE and DVT. Monitor CBC and renal function closely. 04/05/2020 Continue bronchodilators steroids monitor closely Oxygen supplementation Appreciate help from pulmonology recommended conservative management with outpatient follow up Insulin sliding scale Continue anticoagulation Patient has multiple episodes of diarrhea Add on lactobacillus and Lomotil p.r.n. banking services officer to arrange for home O2 possible Dc today if diarrhea is better and home O2 is arranged Vital Signs/Physical Exam: Temp Pulse Resp BP Pulse Ox 97 F 64 19 140/78 93 04/04/20 23:41 04/05/20 07:00 04/05/20 07:00 04/05/20 07:00 04/05/20 07:00 General: Alert, In no apparent distress, Obese HEENT: Atraumatic, Normocephalic Neck: Supple Respiratory: Clear to auscultation bilaterally, Normal air movement Cardiovascular: Normal pulses, Regular rate/rhythm Capillary refill: <2 Seconds Gastrointestinal: Soft and benign, W/out hepatosplenomegaly Musculoskeletal: No clubbing Integumentary: No rashes Neurological: Normal speech Laboratory Data at Discharge: WBC 6.2 K/uL (4.3-10.9) 04/05/20 03:41 Hgb 15.7 g/dL (12.0-15.0) H 04/05/20 03:41 Hct 47.7 % (36.0-45.0) H 04/05/20 03:41 Plt Count 98 K/uL (152-406) L 04/05/20 03:41 PT 13.5 SECONDS (9.5-12.5) H 04/05/20 03:41 INR 1.15 04/05/20 03:41 Sodium 144 mmol/L (136-145) 04/05/20 03:41 Potassium 3.9 mmol/L (3.5-5.1) 04/05/20 03:41 BUN 28 mg/dL (7-18) H 04/05/20 03:41 Creatinine 1.05 mg/dL (0.55-1.3) 04/05/20 03:41 Glucose 122 mg/dL (74-106) H 04/05/20 03:41 Phosphorus 3.6 mg/dL (2.5-4.9) 04/05/20 03:41 Magnesium 1.8 mg/dL (1.8-2.4) 04/05/20 03:41 Total Bilirubin 0.7 mg/dL (0.2-1.0) 04/04/20 17:49 AST 42 U/L (15-37) H 04/04/20 17:49 ALT 25 U/L (12-78) 04/04/20 17:49 Alkaline Phosphatase 74 U/L (45-117) 04/04/20 17:49 Triglycerides 127 mg/dL (<150) 04/05/20 03:41 Cholesterol 94 mg/dL (<200) 04/05/20 03:41 HDL Cholesterol 45 mg/dL (40-60) 04/05/20 03:41 Cholesterol/HDL Ratio 2.09 04/05/20 03:41 Home Medications: ALPRAZolam [Alprazolam] 1 mg PO TID PRN 02/12/18 Furosemide [Lasix*] 20 mg PO BEDTIME 02/12/18 Metoprolol Tartrate [Lopressor*] 50 mg PO BID 02/12/18 Valsartan/Hydrochlorothiazide [Valsartan-Hctz 320-25 mg Tab] 1 tab PO DAILY 02/12/18 Zolpidem Tartrate [Ambien*] 10 mg PO BEDTIME 02/12/18 Citalopram [Celexa*] 1 tab PO DAILY 03/24/18 allopurinoL [Zyloprim*] 1 tab PO DAILY 03/24/18 Albuterol Inhaler [Ventolin Inhaler*] 2 puff IH Q6H PRN #1 hfa.aer.ad 04/05/20 Diclofenac Sodium 50 mg PO BID 04/05/20 Folic Acid 0.4 mg PO DAILY 04/05/20 Rivaroxaban [Xarelto*] 20 mg PO DAILY AT SUPPER #7 tablet 04/05/20 Tizanidine [Zanaflex*] 4 mg PO Q6HP PRN 04/05/20 predniSONE [Deltasone] 20 mg PO BID #14 tab 04/05/20 New Medications: predniSONE [Deltasone] 20 mg PO BID #14 tab Albuterol Inhaler [Ventolin Inhaler*] 2 puff IH Q6H PRN #1 hfa.aer.ad PRN Reason: Shortness Of Breath Rivaroxaban [Xarelto*] 20 mg PO DAILY AT SUPPER #7 tablet Time spent managing pt's care (in minutes): 42
--- NOTE | 2020-04-05 11:51 | P.CNS ---
Date of Consult: 04/05/20 Chief Complaint: Pneumonia due to coronal virus History of Present Illness: Patient is 64 years of age recently diagnosed with snyder virus infection came in because of shortness of breath he is doing fine right now I had prescribed a some prednisone yesterday which she did not take oxygenation satisfactory on 2 L of oxygen no other complaints Allergies No Known Allergies Allergy (Unverified 12/30/16 10:05) Home Medications: ALPRAZolam [Alprazolam] 1 mg PO TID PRN 02/12/18 Furosemide [Lasix*] 20 mg PO BEDTIME 02/12/18 Metoprolol Tartrate [Lopressor*] 50 mg PO BID 02/12/18 Valsartan/Hydrochlorothiazide [Valsartan-Hctz 320-25 mg Tab] 1 tab PO DAILY 02/12/18 Zolpidem Tartrate [Ambien*] 10 mg PO BEDTIME 02/12/18 Citalopram [Celexa*] 1 tab PO DAILY 03/24/18 allopurinoL [Zyloprim*] 1 tab PO DAILY 03/24/18 Albuterol Inhaler [Ventolin Inhaler*] 2 puff IH Q6H PRN #1 hfa.aer.ad 04/05/20 Diclofenac Sodium 50 mg PO BID 04/05/20 Folic Acid 0.4 mg PO DAILY 04/05/20 Rivaroxaban [Xarelto*] 20 mg PO DAILY AT SUPPER #7 tablet 04/05/20 Tizanidine [Zanaflex*] 4 mg PO Q6HP PRN 04/05/20 predniSONE [Deltasone] 20 mg PO BID #14 tab 04/05/20 - Past Medical/Surgical History Diabetic: Yes -: HTN, -: NIDDM -: hypothyroid -: DVT -: Kidney stones -: Anxiety -: PE -: Tubal Ligation -: Kidney stone removal -: cyst on thyroid removed -: enterocutaneous fistula repair - Family History Father Medical History: Heart disease Notes: she was adopted,, she does not know her family history - Social History Smoking Status: Never smoker Alcohol use: No CD- Drugs: No Caffeine use: Yes Place of Residence: Home Review of Systems General: Weakness Respiratory: Shortness of Breath Physical Examination Temp Pulse Resp BP Pulse Ox 97 F 60 23 H 124/78 94 04/04/20 23:41 04/05/20 11:00 04/05/20 08:00 04/05/20 11:00 04/05/20 11:00 General: Alert Respiratory: Crackles/rales Laboratory Data (last 24 hrs) 04/04/20 17:49: WBC 6.8, Hgb 15.9 H, Hct 48.0 H, Plt Count 115 L 04/04/20 17:49: Sodium 141, Potassium 4.2, BUN 32 H, Creatinine 1.33 H, Glucose 115 H, Total Bilirubin 0.7, AST 42 H, ALT 25, Alkaline Phosphatase 74 - Problems (1) Pneumonia due to 2019 novel coronavirus Current Visit: Yes Status: Acute Plan: Patient is 64 years of age admitted with a snyder virus infection she has by a bilateral ground-glass changes in addition to pulmonary fibrosis check for room-air pulse ox plan for discharge she is scheduled to follow-up with me
--- NOTE | 2020-04-05 12:33 | EKG ---
Test Date: 2020-04-04 Test Time: 18:52:35 Staff Nurse Midwife: BURT MEASUREMENT RESULTS: Intervals: Rate: 68 MA: 136 QRSD: 86 QT: 444 QTc: 472 [place]: P: 27 MA: 136 QRS: -25 T: 88 INTERPRETIVE STATEMENTS: Normal sinus rhythm Voltage criteria for left ventricular hypertrophy Prolonged QT Abnormal ECG Compared to ECG 04/04/2020 18:51:58 No significant changes Electronically Signed On 04-05-20 12:31:25 CDT by Kush Hernádnez
--- NOTE | 2020-04-05 12:33 | EKG ---
Test Date: 2020-04-04 Test Time: 18:51:58 Tufter: BURT MEASUREMENT RESULTS: Intervals: Rate: 70 IN: 136 QRSD: 86 QT: 446 QTc: 481 [place]: P: 24 IN: 136 QRS: -25 T: 78 INTERPRETIVE STATEMENTS: Normal sinus rhythm Voltage criteria for left ventricular hypertrophy Prolonged QT Abnormal ECG Compared to ECG 12/24/2017 20:20:05 Left ventricular hypertrophy now present Prolonged QT interval now present Electronically Signed On 04-05-20 12:31:27 CDT by Kush Hernández
[2020-04-05] MEDS: DIPHENOX/ATROP SULF 1 TAB PO PRN (14:30)
[2020-04-05] MEDS: LACTOBACILLUS/ACIDOPHILUS TAB PO SCH ×2 (14:30→20:38)
--- NOTE | 2020-04-05 15:25 | P.PN ---
Subjective Date of Service: 04/05/20 Chief Complaint: Pneumonia due to coronal virus Subjective: New changes (Complaints of diarrhea) Review of Systems 10-point ROS is otherwise unremarkable Physical Examination - Vital Signs Temperature: 97 F Blood Pressure: 142/89 Pulse: 57 Respirations: 18 Pulse Ox (%): 87 - Physical Exam General: Alert, In no apparent distress, Obese HEENT: Atraumatic, Normocephalic Neck: Supple Respiratory: Diminished Cardiovascular: Regular rate/rhythm, Normal S1 S2 Capillary refill: <2 Seconds Gastrointestinal: Soft and benign, Non-distended, W/out hepatosplenomegaly Musculoskeletal: No clubbing, No swelling Integumentary: No rashes Neurological: Normal speech, Normal strength at 5/5 x4 extr Lymphatics: No axilla or inguinal lymphadenopathy - Studies Laboratory Data (last 24 hrs) 04/04/20 17:49: WBC 6.8, Hgb 15.9 H, Hct 48.0 H, Plt Count 115 L 04/04/20 17:49: Sodium 141, Potassium 4.2, BUN 32 H, Creatinine 1.33 H, Glucose 115 H, Total Bilirubin 0.7, AST 42 H, ALT 25, Alkaline Phosphatase 74 Assessment & Plan - Problems (Diagnosis) (1) Acute respiratory failure with hypoxemia Current Visit: Yes Status: Acute (2) COVID-19 Current Visit: Yes Status: Acute (3) Chronic kidney disease, stage 3 Current Visit: Yes Status: Acute (4) Diabetes mellitus type 2 in obese Current Visit: Yes Status: Acute (5) Pneumonia due to 2019 novel coronavirus Current Visit: Yes Status: Acute (6) Viral pneumonia Current Visit: Yes Status: Acute Physician Review Additional Text: Start bronchodilators, IV dexamethasone, IV Zithromax. High risk for progression of disease given patient's comorbidities. IV hydration Consult to pulmonary. Supplemental oxygen Blood sugar control with insulin sliding scale and Lantus insulin Continue Xarelto history of PE and DVT. Monitor CBC and renal function closely. 04/05/2020 Continue bronchodilators steroids monitor closely Oxygen supplementation Appreciate help from pulmonology recommended conservative management with outpatient follow up Insulin sliding scale Continue anticoagulation Patient has multiple episodes of diarrhea Add on lactobacillus and Lomotil p.r.n. account services coordinator to arrange for home O2 possible Dc today if diarrhea is better and home O2 is arranged Time Spent Managing Pts Care (In Minutes): 46
[2020-04-05] MEDS ORDERED: RIVAROXABAN 10 MG TABLET PO SCH (17:00)
[2020-04-05] MEDS: RIVAROXABAN 20 MG TABLET PO SCH (17:34)
[2020-04-05] MEDS: FUROSEMIDE 20 MG TABLET PO SCH (20:37)
[2020-04-05] MEDS: ZOLPIDEM TARTRATE 10 MG TABLET PO SCH (20:38)
[2020-04-06] MEDS: dexAMETHasone 4 MG/ML VIAL IV SCH ×3 (00:08→16:07)
[2020-04-06 05:15] LABS: Magnesium 1.6 mg/dL (1.8-2.4)
[2020-04-06 06:45] LABS: Potassium 3.9 mmol/L (3.5-5.1)
[2020-04-06] MEDS ORDERED: MAGNESIUM SULFATE 1 gm IVPB 1 GM/100 ML BAG IV ONE (07:00)
[2020-04-06] MEDS ORDERED: POTASSIUM 25 MEQ EFFERV TAB PO ONE (07:00)
[2020-04-06] MEDS: INSULIN -REGULAR HUMAN 50 UNIT/0.5 ML ML SQ SCH ×4 (07:30→21:15)
[2020-04-06] MEDS: VALSARTAN 160 MG TAB PO SCH (07:56)
[2020-04-06] MEDS: LACTOBACILLUS/ACIDOPHILUS TAB PO SCH ×2 (07:56→20:29)
[2020-04-06] MEDS: METOPROLOL TAR 50 MG TAB PO SCH ×2 (07:56→20:29)
[2020-04-06] MEDS: hydroCHLOROthiazide 25 MG TAB PO SCH (07:57)
[2020-04-06] MEDS: CITALOPRAM 10 MG TABLET PO SCH (07:57)
[2020-04-06] MEDS: allopurinoL 100 MG TAB PO SCH (07:57)
[2020-04-06] MEDS: IPRATROPIUM 200 PUFF/12.9 GM INH IH SCH ×4 (07:58→21:00)
[2020-04-06] MEDS: FOLIC ACID 1 MG TABLET PO SCH (07:58)
--- NOTE | 2020-04-06 08:53 | P.PN ---
Subjective Date of Service: 04/06/20 Chief Complaint: Respiratory failure from coronal wire S Patient is still experiencing significant amount of hypoxemia acquiring up to 6 L of oxygen Review of Systems General: Weakness Respiratory: Shortness of Breath Physical Examination - Vital Signs Temperature: 98.7 F Blood Pressure: 138/84 Pulse: 85 Respirations: 14 Pulse Ox (%): 92 - Physical Exam General: Other (Deferred) - Studies Laboratory Data (last 24 hrs) 04/06/20 04:33: Sodium 141, Potassium 3.9, BUN 29 H, Creatinine 1.08, Glucose 117 H, Magnesium 1.6 L Assessment & Plan - Problems (Diagnosis) (1) Pneumonia due to 2019 novel coronavirus Current Visit: Yes Status: Acute Plan: Patient admitted with hypoxemia secondary to snyder virus infection cor do the nursing staff she does desaturate consider BiPAP if for desaturation persists or high-flow oxygen vital signs stable convalescent plasma
[2020-04-06] MEDS: ACETYLCYST 20% 800 MG/4 ML VIAL PO SCH ×2 (09:00→20:30)
[2020-04-06 11:31] LABS: C.diff Antigen/Toxin Ag neg : Tox pos (NEG : NEG)
--- NOTE | 2020-04-06 12:02 | P.PN ---
Subjective Date of Service: 04/06/20 Chief Complaint: Respiratory failure from coronal wire S Subjective: No new changes Review of Systems 10-point ROS is otherwise unremarkable Physical Examination - Vital Signs Temperature: 98.7 F Blood Pressure: 120/66 Pulse: 59 Respirations: 21 Pulse Ox (%): 93 - Physical Exam General: Alert, Mild distress, Obese HEENT: Atraumatic, Normocephalic Neck: Supple Respiratory: Clear to auscultation bilaterally Cardiovascular: No edema, Normal pulses, Regular rate/rhythm Capillary refill: <2 Seconds Gastrointestinal: Soft and benign, W/out hepatosplenomegaly Musculoskeletal: No clubbing, No swelling Integumentary: No significant lesion, No tenderness/swelling Neurological: Normal speech, Normal strength at 5/5 x4 extr Lymphatics: No axilla or inguinal lymphadenopathy - Studies Laboratory Data (last 24 hrs) 04/06/20 04:33: Sodium 141, Potassium 3.9, BUN 29 H, Creatinine 1.08, Glucose 117 H, Magnesium 1.6 L Assessment & Plan Physician Review Additional Text: Start bronchodilators, IV dexamethasone, IV Zithromax. High risk for progression of disease given patient's comorbidities. IV hydration Consult to pulmonary. Supplemental oxygen Blood sugar control with insulin sliding scale and Lantus insulin Continue Xarelto history of PE and DVT. Monitor CBC and renal function closely. 04/05/2020 Continue bronchodilators steroids monitor closely Oxygen supplementation Appreciate help from pulmonology recommended conservative management with outpatient follow up Insulin sliding scale Continue anticoagulation Patient has multiple episodes of diarrhea Add on lactobacillus and Lomotil p.r.n. patient financial services coordinator to arrange for home O2 possible Dc today if diarrhea is better and home O2 is arranged 04/06/2020 PATIENT STILL HAVING HYPOXIA AND HAD TO BE PLACED ON OXYGEN SUPPLEMENTATION Appreciate help from pulmonology will continue steroids will offer convalescent plasma Discuss with the patient regarding the plasma treatment Patient agreeable Monitor closely in ICU Diarrhea better Home O2 was arranged Trying to wean down the oxygen requirement Time Spent Managing Pts Care (In Minutes): 45
[2020-04-06] MEDS: ALPRAZOLAM 1 MG TABLET PO PRN (15:41)
[2020-04-06] MEDS: DIPHENOX/ATROP SULF 1 TAB PO PRN (16:07)
[2020-04-06] MEDS: RIVAROXABAN 20 MG TABLET PO SCH (16:07)
[2020-04-06] MEDS: ZOLPIDEM TARTRATE 10 MG TABLET PO SCH (20:29)
[2020-04-06] MEDS: FUROSEMIDE 20 MG TABLET PO SCH (20:30)
[2020-04-06] MEDS ORDERED: NA CHLORIDE 0.9% 250 ML ONE (23:19)
[2020-04-07] MEDS: dexAMETHasone 4 MG/ML VIAL IV SCH ×3 (00:16→16:49)
[2020-04-07 05:11] LABS: Protime INR 1.65
[2020-04-07 05:21] LABS: Magnesium 2.1 mg/dL (1.8-2.4); Potassium 4.2 mmol/L (3.5-5.1)
[2020-04-07] MEDS: INSULIN -REGULAR HUMAN 50 UNIT/0.5 ML ML SQ SCH ×4 (07:30→20:27)
[2020-04-07] MEDS: LACTOBACILLUS/ACIDOPHILUS TAB PO SCH ×2 (08:57→20:21)
[2020-04-07] MEDS: CITALOPRAM 10 MG TABLET PO SCH (08:58)
[2020-04-07] MEDS: FOLIC ACID 1 MG TABLET PO SCH (08:58)
[2020-04-07] MEDS: IPRATROPIUM 200 PUFF/12.9 GM INH IH SCH ×4 (08:58→20:27)
[2020-04-07] MEDS: ACETYLCYST 20% 800 MG/4 ML VIAL PO SCH ×2 (08:58→20:26)
[2020-04-07] MEDS: allopurinoL 100 MG TAB PO SCH (08:59)
[2020-04-07] MEDS: hydroCHLOROthiazide 25 MG TAB PO SCH (09:00)
[2020-04-07] MEDS: VALSARTAN 160 MG TAB PO SCH (09:00)
[2020-04-07] MEDS: METOPROLOL TAR 50 MG TAB PO SCH ×2 (09:00→20:25)
--- NOTE | 2020-04-07 09:52 | P.PN ---
Subjective Date of Service: 04/07/20 Chief Complaint: Respiratory failure from coronal wire S Subjective: No new changes, Improving Review of Systems 10-point ROS is otherwise unremarkable Physical Examination - Vital Signs Temperature: 97.6 F Blood Pressure: 114/74 Pulse: 47 Respirations: 25 Pulse Ox (%): 92 - Physical Exam General: Alert, In no apparent distress, Obese HEENT: Atraumatic, Normocephalic Neck: Supple Respiratory: Diminished, Crackles/rales Cardiovascular: No edema, Regular rate/rhythm, Normal S1 S2 Capillary refill: <2 Seconds Gastrointestinal: Soft and benign, W/out hepatosplenomegaly Musculoskeletal: No clubbing, No swelling Integumentary: No rashes Neurological: Normal speech, Normal strength at 5/5 x4 extr Lymphatics: No axilla or inguinal lymphadenopathy Assessment & Plan - Problems (Diagnosis) (1) Acute respiratory failure with hypoxemia Current Visit: Yes Status: Acute Physician Review Additional Text: Start bronchodilators, IV dexamethasone, IV Zithromax. High risk for progression of disease given patient's comorbidities. IV hydration Consult to pulmonary. Supplemental oxygen Blood sugar control with insulin sliding scale and Lantus insulin Continue Xarelto history of PE and DVT. Monitor CBC and renal function closely. 04/07/2020 Trying to wean off oxygen requirement Monitor closely under telemetry Appreciate help from pulmonology will continue steroids S/p convalescent plasma Diarrhea better Home O2 was arranged Trying to wean down the oxygen requirement If oxygen recommend can be weaned down patient can be discharged home possibly by tomorrow Time Spent Managing Pts Care (In Minutes): 42
--- NOTE | 2020-04-07 11:14 | P.PN ---
Subjective Date of Service: 04/07/20 Chief Complaint: Respiratory failure from coronal wire Patient states that she is doing better currently on BiPAP S than 50% oxygen will plan to wean her down Review of Systems General: Weakness Respiratory: Shortness of Breath Physical Examination - Vital Signs Temperature: 97.6 F Blood Pressure: 114/74 Pulse: 47 Respirations: 25 Pulse Ox (%): 92 Assessment & Plan - Problems (Diagnosis) (1) Pneumonia due to 2019 novel coronavirus Current Visit: Yes Status: Acute Plan: Patient is improving plan to reduce her O2 levels not want she is less than 5 L plan to discharge her on oxygen patient was prescribed steroids by me at home which could to get up from the pharmacy PICC multi vitamin supplement anticoagulation with either Eliquis or aspirin possible discharge tomorrow set up for home O2
[2020-04-07] MEDS: MULTIVITAMIN TAB PO SCH (16:49)
[2020-04-07] MEDS: RIVAROXABAN 20 MG TABLET PO SCH (16:50)
[2020-04-07] MEDS: ZOLPIDEM TARTRATE 10 MG TABLET PO SCH (20:21)
[2020-04-07] MEDS: FUROSEMIDE 20 MG TABLET PO SCH (20:25)
[2020-04-08] MEDS: dexAMETHasone 4 MG/ML VIAL IV SCH ×3 (00:04→16:13)
[2020-04-08] MEDS: ALPRAZOLAM 1 MG TABLET PO PRN ×2 (05:16→12:24)
[2020-04-08] MEDS: INSULIN -REGULAR HUMAN 50 UNIT/0.5 ML ML SQ SCH ×4 (07:30→21:00)
[2020-04-08] MEDS: VALSARTAN 160 MG TAB PO SCH (08:13)
[2020-04-08] MEDS: hydroCHLOROthiazide 25 MG TAB PO SCH (08:17)
[2020-04-08] MEDS: LACTOBACILLUS/ACIDOPHILUS TAB PO SCH ×2 (08:17→20:28)
[2020-04-08] MEDS: CITALOPRAM 10 MG TABLET PO SCH (08:17)
[2020-04-08] MEDS: MULTIVITAMIN TAB PO SCH (08:17)
[2020-04-08] MEDS: FOLIC ACID 1 MG TABLET PO SCH (08:18)
[2020-04-08] MEDS: METOPROLOL TAR 50 MG TAB PO SCH ×2 (08:18→20:28)
[2020-04-08] MEDS: IPRATROPIUM 200 PUFF/12.9 GM INH IH SCH ×4 (08:18→21:00)
[2020-04-08] MEDS: allopurinoL 100 MG TAB PO SCH (08:19)
--- NOTE | 2020-04-08 10:29 | P.PN ---
Subjective Date of Service: 04/08/20 (Telephoen visit) Chief Complaint: Respiratory failure from coronal virus Still SOb requiring high flow Physical Examination - Vital Signs Temperature: 97.2 F Blood Pressure: 165/82 Pulse: 59 Respirations: 24 Pulse Ox (%): 93 Assessment & Plan - Problems (Diagnosis) (1) Pneumonia due to 2019 novel coronavirus Current Visit: Yes Status: Acute Plan: Resp failure. Titrate O2 sat of 90%. Once level aroud 4 l poss discharge
--- NOTE | 2020-04-08 10:33 | P.PN ---
Subjective Date of Service: 04/08/20 Chief Complaint: Respiratory failure from coronal virus Subjective: No new changes Review of Systems 10-point ROS is otherwise unremarkable Physical Examination - Vital Signs Temperature: 97.2 F Blood Pressure: 165/82 Pulse: 59 Respirations: 24 Pulse Ox (%): 93 - Physical Exam General: Alert, In no apparent distress, Obese HEENT: Atraumatic, Normocephalic Neck: Supple Respiratory: Diminished, Crackles/rales Cardiovascular: No edema, Regular rate/rhythm Capillary refill: <2 Seconds Gastrointestinal: Soft and benign, W/out hepatosplenomegaly Musculoskeletal: No clubbing, No swelling Integumentary: No rashes Neurological: Normal speech, Normal strength at 5/5 x4 extr Lymphatics: No axilla or inguinal lymphadenopathy Assessment & Plan - Problems (Diagnosis) (1) Acute respiratory failure with hypoxemia Current Visit: Yes Status: Acute Physician Review Additional Text: Start bronchodilators, IV dexamethasone, IV Zithromax. High risk for progression of disease given patient's comorbidities. IV hydration Consult to pulmonary. Supplemental oxygen Blood sugar control with insulin sliding scale and Lantus insulin Continue Xarelto history of PE and DVT. Monitor CBC and renal function closely. 04/08/2020 Still On high-flow nasal cannula Trying to wean off oxygen requirement Monitor closely under telemetry Appreciate help from pulmonology will continue steroids S/p convalescent plasma Home O2 was arranged Trying to wean down the oxygen requirement Time Spent Managing Pts Care (In Minutes): 42
[2020-04-08] MEDS: RIVAROXABAN 20 MG TABLET PO SCH (16:13)
[2020-04-08] MEDS: ACETAMINOPHEN 500 MG TAB PO PRN (17:49)
[2020-04-08] MEDS: FUROSEMIDE 20 MG TABLET PO SCH (20:29)
[2020-04-08] MEDS: ZOLPIDEM TARTRATE 10 MG TABLET PO SCH (20:30)
[2020-04-09] MEDS: dexAMETHasone 4 MG/ML VIAL IV SCH ×2 (01:02→09:36)
[2020-04-09 06:08] LABS: Phosphorus 2.6 mg/dL (2.5-4.9); Potassium 4.2 mmol/L (3.5-5.1)
[2020-04-09] MEDS: INSULIN -REGULAR HUMAN 50 UNIT/0.5 ML ML SQ SCH ×4 (07:30→20:52)
[2020-04-09] MEDS: LACTOBACILLUS/ACIDOPHILUS TAB PO SCH ×2 (08:20→20:18)
[2020-04-09] MEDS: VALSARTAN 160 MG TAB PO SCH (08:20)
[2020-04-09] MEDS: MULTIVITAMIN TAB PO SCH (08:20)
[2020-04-09] MEDS: hydroCHLOROthiazide 25 MG TAB PO SCH (08:20)
[2020-04-09] MEDS: allopurinoL 100 MG TAB PO SCH (08:20)
[2020-04-09] MEDS: METOPROLOL TAR 50 MG TAB PO SCH ×2 (08:20→20:18)
[2020-04-09] MEDS: CITALOPRAM 10 MG TABLET PO SCH (08:21)
[2020-04-09] MEDS: FOLIC ACID 1 MG TABLET PO SCH (08:21)
[2020-04-09] MEDS: IPRATROPIUM 200 PUFF/12.9 GM INH IH SCH ×4 (09:00→20:21)
--- NOTE | 2020-04-09 10:55 | P.PN ---
Subjective Date of Service: 04/09/20 Chief Complaint: Respiratory failure from coronal virus Subjective: No new changes, Improving Review of Systems 10-point ROS is otherwise unremarkable Physical Examination - Vital Signs Temperature: 96.8 F Blood Pressure: 125/74 Pulse: 59 Respirations: 24 Pulse Ox (%): 93 - Physical Exam General: Alert, In no apparent distress, Obese HEENT: Atraumatic, Normocephalic Neck: Supple Respiratory: Diminished, Crackles/rales Cardiovascular: Regular rate/rhythm, Normal S1 S2 Capillary refill: <2 Seconds Gastrointestinal: Soft and benign, W/out hepatosplenomegaly Musculoskeletal: No clubbing, No swelling Integumentary: No rashes Neurological: Normal speech, Normal strength at 5/5 x4 extr Lymphatics: No axilla or inguinal lymphadenopathy Assessment & Plan - Problems (Diagnosis) (1) Acute respiratory failure with hypoxemia Current Visit: Yes Status: Acute Physician Review Additional Text: Start bronchodilators, IV dexamethasone, IV Zithromax. High risk for progression of disease given patient's comorbidities. IV hydration Consult to pulmonary. Supplemental oxygen Blood sugar control with insulin sliding scale and Lantus insulin Continue Xarelto history of PE and DVT. Monitor CBC and renal function closely. 04/09/2020 On high-flow nasal cannula Trying to wean down oxygen requirement Monitor closely under telemetry Appreciate help from pulmonology On steroids S/p convalescent plasma Trying to wean down the oxygen requirement Possible Dc in a.m. with home O2 Time Spent Managing Pts Care (In Minutes): 42
[2020-04-09] MEDS: ACETAMINOPHEN 500 MG TAB PO PRN (12:18)
--- NOTE | 2020-04-09 12:59 | P.PN ---
Subjective Date of Service: 04/09/20 Chief Complaint: Respiratory failure from coronal virus Patient is clinically improving requiring high concentrations of oxygen Physical Examination - Vital Signs Temperature: 96.8 F Blood Pressure: 125/74 Pulse: 59 Respirations: 24 Pulse Ox (%): 93 Assessment & Plan - Problems (Diagnosis) (1) Pneumonia due to 2019 novel coronavirus Current Visit: Yes Status: Acute Plan: Patient is improving a plan to titrate O2 to a sat of 90% in nasal cannula oxygen possible discharge up increase the dose of the steroids today including supplementation possible discharge tomorrow on prednisone 20 mg twice a day for a week he does have for 10 mg twice a day that I ordered including vitamin-C 500 mg twice a day and melatonin 3 mg at night follow-up with me with of CRP levels in about 2 weeks
[2020-04-09] MEDS: ASCORBIC ACID 500 MG TABLET PO SCH ×2 (13:31→20:19)
[2020-04-09] MEDS: RIVAROXABAN 20 MG TABLET PO SCH (16:40)
[2020-04-09] MEDS: METHYLPREDNISOLONE 40 MG INJ IV SCH (16:40)
[2020-04-09] MEDS: MELATONIN 3 MG TABLET PO SCH (20:18)
[2020-04-09] MEDS: ZOLPIDEM TARTRATE 10 MG TABLET PO SCH (20:19)
[2020-04-09] MEDS: FUROSEMIDE 20 MG TABLET PO SCH (20:19)
[2020-04-09] MEDS: ATORVASTATIN 40 MG TAB PO SCH (20:20)
[2020-04-10] MEDS: METHYLPREDNISOLONE 40 MG INJ IV SCH ×3 (00:06→17:05)
[2020-04-10 05:02] LABS: Magnesium 2.2 mg/dL (1.8-2.4); Phosphorus 3.5 mg/dL (2.5-4.9); Potassium 4.7 mmol/L (3.5-5.1)
[2020-04-10] MEDS: INSULIN -REGULAR HUMAN 50 UNIT/0.5 ML ML SQ SCH ×4 (07:30→21:57)
[2020-04-10] MEDS: allopurinoL 100 MG TAB PO SCH (08:36)
[2020-04-10] MEDS: MULTIVITAMIN TAB PO SCH (08:36)
[2020-04-10] MEDS: CITALOPRAM 10 MG TABLET PO SCH (08:36)
[2020-04-10] MEDS: VALSARTAN 160 MG TAB PO SCH (08:36)
[2020-04-10] MEDS: hydroCHLOROthiazide 25 MG TAB PO SCH (08:36)
[2020-04-10] MEDS: ASCORBIC ACID 500 MG TABLET PO SCH ×3 (08:36→21:56)
[2020-04-10] MEDS: FOLIC ACID 1 MG TABLET PO SCH (08:36)
[2020-04-10] MEDS: VITAMIN D 1000 UNIT TAB PO SCH (08:36)
[2020-04-10] MEDS: LACTOBACILLUS/ACIDOPHILUS TAB PO SCH ×2 (08:36→21:56)
[2020-04-10] MEDS: METOPROLOL TAR 50 MG TAB PO SCH ×2 (08:36→21:56)
[2020-04-10] MEDS: IPRATROPIUM 200 PUFF/12.9 GM INH IH SCH ×4 (08:37→21:00)
[2020-04-10] MEDS: ALPRAZOLAM 1 MG TABLET PO PRN (15:36)
[2020-04-10] MEDS: RIVAROXABAN 20 MG TABLET PO SCH (17:05)
[2020-04-10] MEDS: FUROSEMIDE 20 MG TABLET PO SCH (21:55)
[2020-04-10] MEDS: MELATONIN 3 MG TABLET PO SCH (21:55)
[2020-04-10] MEDS: ZOLPIDEM TARTRATE 10 MG TABLET PO SCH (21:56)
[2020-04-10] MEDS: ATORVASTATIN 40 MG TAB PO SCH (21:56)
[2020-04-10] MEDS: ACETAMINOPHEN 500 MG TAB PO PRN (21:59)
[2020-04-11] MEDS: METHYLPREDNISOLONE 40 MG INJ IV SCH ×3 (00:45→20:00)
[2020-04-11 06:17] LABS: Magnesium 2.1 mg/dL (1.8-2.4); Phosphorus 4.2 mg/dL (2.5-4.9); Potassium 4.8 mmol/L (3.5-5.1)
[2020-04-11] MEDS: IPRATROPIUM 200 PUFF/12.9 GM INH IH SCH ×4 (09:00→20:03)
[2020-04-11] MEDS: VITAMIN D 1000 UNIT TAB PO SCH (09:00)
--- NOTE | 2020-04-11 09:09 | P.PN ---
Subjective Date of Service: 04/11/20 Chief Complaint: Respiratory failure from coronal virus Subjective: No new changes Review of Systems 10-point ROS is otherwise unremarkable Physical Examination - Vital Signs Temperature: 97.9 F Blood Pressure: 132/73 Pulse: 56 Respirations: 22 Pulse Ox (%): 95 - Physical Exam General: Alert, In no apparent distress, Oriented x3, Obese HEENT: Atraumatic, Normocephalic Neck: Supple Respiratory: Diminished, Crackles/rales Cardiovascular: Regular rate/rhythm, Normal S1 S2 Capillary refill: <2 Seconds Gastrointestinal: Soft and benign, W/out hepatosplenomegaly Musculoskeletal: No clubbing Integumentary: No rashes, No tenderness/swelling Neurological: Other (Alert, Awake ) Assessment & Plan - Problems (Diagnosis) (1) Acute respiratory failure with hypoxemia Current Visit: Yes Status: Acute Physician Review Additional Text: Start bronchodilators, IV dexamethasone, IV Zithromax. High risk for progression of disease given patient's comorbidities. IV hydration Consult to pulmonary. Supplemental oxygen Blood sugar control with insulin sliding scale and Lantus insulin Continue Xarelto history of PE and DVT. Monitor CBC and renal function closely. 2019 On high-flow nasal cannula Trying to wean down oxygen requirement Monitor closely under telemetry Appreciate help from pulmonology On steroids S/p convalescent plasma Trying to wean down the oxygen requirement PT ruben Tried discharging patient home patient was ambulatory at the baseline but she had a hard time ambulating Case management consult for possible placement to SNF The patient was seen and examined and findings were discussed with the patient and the care team on 04/10/2020 This note is for the encounter on the day 04/10/2020 Time Spent Managing Pts Care (In Minutes): 42
[2020-04-11] MEDS: INSULIN -REGULAR HUMAN 50 UNIT/0.5 ML ML SQ SCH ×4 (09:12→20:03)
[2020-04-11] MEDS: hydroCHLOROthiazide 25 MG TAB PO SCH (09:14)
[2020-04-11] MEDS: ASCORBIC ACID 500 MG TABLET PO SCH ×3 (09:14→20:02)
[2020-04-11] MEDS: VALSARTAN 160 MG TAB PO SCH (09:17)
[2020-04-11] MEDS: MULTIVITAMIN TAB PO SCH (09:20)
[2020-04-11] MEDS: FOLIC ACID 1 MG TABLET PO SCH (09:20)
[2020-04-11] MEDS: allopurinoL 100 MG TAB PO SCH (09:20)
[2020-04-11] MEDS: LACTOBACILLUS/ACIDOPHILUS TAB PO SCH ×2 (09:20→19:59)
[2020-04-11] MEDS: METOPROLOL TAR 50 MG TAB PO SCH ×2 (09:21→20:00)
[2020-04-11] MEDS: CITALOPRAM 10 MG TABLET PO SCH (09:21)
--- NOTE | 2020-04-11 15:40 | P.PN ---
Subjective Date of Service: 04/11/20 Chief Complaint: Respiratory failure from coronal virus Subjective: No new changes Review of Systems 10-point ROS is otherwise unremarkable Physical Examination - Vital Signs Temperature: 97.9 F Blood Pressure: 132/73 Pulse: 56 Respirations: 22 Pulse Ox (%): 95 - Physical Exam General: Alert, In no apparent distress, Obese HEENT: Atraumatic, Normocephalic Neck: Supple, 2+ carotid pulse no bruit Respiratory: Normal air movement, Crackles/rales Cardiovascular: No edema, Normal pulses Capillary refill: <2 Seconds Gastrointestinal: Soft and benign, W/out hepatosplenomegaly Musculoskeletal: No clubbing Integumentary: No rashes Neurological: Other (Alert , Awake , Oriented ) Assessment & Plan - Problems (Diagnosis) (1) Acute respiratory failure with hypoxemia Current Visit: Yes Status: Acute Physician Review Additional Text: Start bronchodilators, IV dexamethasone, IV Zithromax. High risk for progression of disease given patient's comorbidities. IV hydration Consult to pulmonary. Supplemental oxygen Blood sugar control with insulin sliding scale and Lantus insulin Continue Xarelto history of PE and DVT. Monitor CBC and renal function closely. 2019 Wean down oxygen requirement Monitor closely under telemetry Appreciate help from pulmonology On steroids S/p convalescent plasma PT eval appreciated patient was ambulatory at the baseline but she had a hard time ambulating Case management consulted for possible placement to SNF awaiting insurance authorization for placement of SNF Time Spent Managing Pts Care (In Minutes): 43
--- NOTE | 2020-04-11 16:18 | P.PN ---
Subjective Date of Service: 04/11/20 Chief Complaint: Respiratory failure from coronal virus Patient id was improving was started on high doses of steroids yesterday patient feels weak Physical Examination - Vital Signs Temperature: 97.9 F Blood Pressure: 132/73 Pulse: 56 Respirations: 22 Pulse Ox (%): 95 Assessment & Plan - Problems (Diagnosis) (1) Pneumonia due to 2019 novel coronavirus Current Visit: Yes Status: Acute Plan: Clinically improving on high doses of steroids C-reactive protein has declined significantly 1 4 L nasal cannula oxygenation is satisfactory the 1st CRP levels remain low change to p.o. prednisone 20 mg twice a day for about a week continue with vitamins
[2020-04-11] MEDS: RIVAROXABAN 20 MG TABLET PO SCH (16:53)
[2020-04-11] MEDS: MELATONIN 3 MG TABLET PO SCH (19:59)
[2020-04-11] MEDS: ATORVASTATIN 40 MG TAB PO SCH (20:00)
[2020-04-11] MEDS: ZOLPIDEM TARTRATE 10 MG TABLET PO SCH (20:00)
[2020-04-11] MEDS: FUROSEMIDE 20 MG TABLET PO SCH (20:02)
[2020-04-11] MEDS ORDERED: ZOLPIDEM TARTRATE 10 MG TABLET PO PRN (23:50)
[2020-04-12] MEDS: INSULIN -REGULAR HUMAN 50 UNIT/0.5 ML ML SQ SCH ×4 (07:30→21:31)
[2020-04-12] MEDS: VITAMIN D 1000 UNIT TAB PO SCH (08:43)
[2020-04-12] MEDS: VALSARTAN 160 MG TAB PO SCH (08:43)
[2020-04-12] MEDS: LACTOBACILLUS/ACIDOPHILUS TAB PO SCH ×2 (08:43→21:26)
[2020-04-12] MEDS: ASCORBIC ACID 500 MG TABLET PO SCH ×3 (08:44→21:27)
[2020-04-12] MEDS: FOLIC ACID 1 MG TABLET PO SCH (08:44)
[2020-04-12] MEDS: allopurinoL 100 MG TAB PO SCH (08:44)
[2020-04-12] MEDS: CITALOPRAM 10 MG TABLET PO SCH (08:44)
[2020-04-12] MEDS: METHYLPREDNISOLONE 40 MG INJ IV SCH (08:45)
[2020-04-12] MEDS: MULTIVITAMIN TAB PO SCH (08:45)
[2020-04-12] MEDS: hydroCHLOROthiazide 25 MG TAB PO SCH (08:45)
[2020-04-12] MEDS: METOPROLOL TAR 50 MG TAB PO SCH ×2 (08:45→21:27)
[2020-04-12] MEDS: IPRATROPIUM 200 PUFF/12.9 GM INH IH SCH ×4 (08:47→21:00)
[2020-04-12 09:46] LABS: Absolute Lymphocytes (CBC) 1.5 K/uL (0.7-4.9); Basophils % 0.5 % (0-1.3); Hematocrit 52.2 % (36.0-45.0); Lymphocytes % 8.5 % (15.3-44.8); MPV 9.2 fL (7.6-11.3); RBC Red Blood Cell Count 5.66 M/uL (3.86-4.86)
[2020-04-12 09:48] LABS: Albumin 3.2 g/dL (3.4-5.0); Bilirubin Total 0.4 mg/dL (0.2-1.0); Potassium 4.2 mmol/L (3.5-5.1); Protein, Total 8.4 g/dL (6.4-8.2)
--- NOTE | 2020-04-12 11:10 | P.PN ---
Subjective Date of Service: 04/12/20 Chief Complaint: Respiratory failure from coronal virus Subjective: No new changes, Improving Review of Systems 10-point ROS is otherwise unremarkable Physical Examination - Vital Signs Temperature: 97 F Blood Pressure: 119/73 Pulse: 58 Respirations: 19 Pulse Ox (%): 91 - Physical Exam General: Alert, In no apparent distress, Obese HEENT: Atraumatic, Normocephalic Neck: Supple, JVD not distended Respiratory: Clear to auscultation bilaterally Cardiovascular: Regular rate/rhythm, Normal S1 S2 Capillary refill: <2 Seconds Gastrointestinal: Soft and benign, W/out hepatosplenomegaly Musculoskeletal: No clubbing, No swelling Integumentary: No rashes Neurological: Normal speech, Normal strength at 5/5 x4 extr Lymphatics: No axilla or inguinal lymphadenopathy Assessment & Plan - Problems (Diagnosis) (1) Acute respiratory failure with hypoxemia Current Visit: Yes Status: Acute Physician Review Additional Text: Start bronchodilators, IV dexamethasone, IV Zithromax. High risk for progression of disease given patient's comorbidities. IV hydration Consult to pulmonary. Supplemental oxygen Blood sugar control with insulin sliding scale and Lantus insulin Continue Xarelto history of PE and DVT. Monitor CBC and renal function closely. 2019 Wean down oxygen requirement Monitor closely under telemetry Appreciate help from pulmonology On steroids S/p convalescent plasma PT eval appreciated patient was ambulatory at the baseline but she had a hard time ambulating Case management consulted for possible placement to SNF awaiting insurance authorization for placement of SNF 04/12/2020 Patient looks clinically stable Appreciate help from pulmonary Continue steroids may be can change to p.o. PT eval appreciated Awaiting SNF placement CRP levels monitored Time Spent Managing Pts Care (In Minutes): 42
--- NOTE | 2020-04-12 13:02 | P.PN ---
Subjective Date of Service: 04/12/20 Chief Complaint: Respiratory failure from coronal virus patient is doing well clinically improving on nasal cannula oxygen feeling weak waiting for sniff Physical Examination - Vital Signs Temperature: 97 F Blood Pressure: 119/73 Pulse: 58 Respirations: 19 Pulse Ox (%): 91 Assessment & Plan - Problems (Diagnosis) (1) Pneumonia due to 2019 novel coronavirus Current Visit: Yes Status: Acute Plan: doing much better CRP levels are nondetectable change to p.o. prednisone 20 mg twice a day for a week continue with multi vitamins the prepared patient as math protocol continue with anticoagulation until patient is ambulatory I risk for thromboembolism
[2020-04-12] MEDS: HYDROCODONE/APAP 10/325 TAB PO PRN ×2 (15:48→21:29)
[2020-04-12] MEDS: RIVAROXABAN 20 MG TABLET PO SCH (16:40)
[2020-04-12] MEDS: MELATONIN 3 MG TABLET PO SCH (21:26)
[2020-04-12] MEDS: FUROSEMIDE 20 MG TABLET PO SCH (21:27)
[2020-04-12] MEDS: ATORVASTATIN 40 MG TAB PO SCH (21:27)
[2020-04-12] MEDS: predniSONE 20 MG TAB PO SCH (21:30)
[2020-04-13] MEDS: NA CHLORIDE 0.9% 1,000 ML IV SCH ×3 (02:06→21:00)
[2020-04-13] MEDS: CEFTRIAXONE/SWI 1gm 1 GM/10 ML SYR IVP SCH ×2 (02:06→09:04)
[2020-04-13] MEDS: INSULIN -REGULAR HUMAN 50 UNIT/0.5 ML ML SQ SCH ×4 (07:30→21:00)
[2020-04-13] MEDS: CITALOPRAM 10 MG TABLET PO SCH (09:00)
[2020-04-13] MEDS: IPRATROPIUM 200 PUFF/12.9 GM INH IH SCH ×4 (09:00→21:00)
[2020-04-13] MEDS: VITAMIN D 1000 UNIT TAB PO SCH (09:00)
[2020-04-13] MEDS: VALSARTAN 160 MG TAB PO SCH (09:00)
[2020-04-13] MEDS: ASCORBIC ACID 500 MG TABLET PO SCH ×3 (09:00→20:59)
[2020-04-13] MEDS: hydroCHLOROthiazide 25 MG TAB PO SCH (09:00)
[2020-04-13] MEDS: METOPROLOL TAR 50 MG TAB PO SCH ×2 (09:05→20:59)
[2020-04-13] MEDS: DIPHENOX/ATROP SULF 1 TAB PO PRN (09:05)
[2020-04-13] MEDS: LACTOBACILLUS/ACIDOPHILUS TAB PO SCH ×2 (09:07→20:58)
[2020-04-13] MEDS: allopurinoL 100 MG TAB PO SCH (09:16)
[2020-04-13] MEDS: FOLIC ACID 1 MG TABLET PO SCH (09:16)
[2020-04-13] MEDS: MULTIVITAMIN TAB PO SCH (09:17)
[2020-04-13] MEDS: predniSONE 20 MG TAB PO SCH ×2 (09:17→20:59)
--- NOTE | 2020-04-13 09:35 | P.PN ---
Subjective Date of Service: 04/13/20 Chief Complaint: Respiratory failure from coronal virus Subjective: No new changes, Improving Review of Systems 10-point ROS is otherwise unremarkable Physical Examination - Vital Signs Temperature: 96 F Blood Pressure: 131/78 Pulse: 58 Respirations: 17 Pulse Ox (%): 95 - Physical Exam General: Alert, In no apparent distress, Obese HEENT: Atraumatic, Normocephalic Neck: Supple Respiratory: Diminished Cardiovascular: Regular rate/rhythm, Normal S1 S2 Capillary refill: <2 Seconds Gastrointestinal: Soft and benign, W/out hepatosplenomegaly Musculoskeletal: No clubbing Integumentary: No rashes Neurological: Normal speech, Normal strength at 5/5 x4 extr Lymphatics: No axilla or inguinal lymphadenopathy Assessment & Plan - Problems (Diagnosis) (1) Acute respiratory failure with hypoxemia Current Visit: Yes Status: Acute Physician Review Additional Text: Start bronchodilators, IV dexamethasone, IV Zithromax. High risk for progression of disease given patient's comorbidities. IV hydration Consult to pulmonary. Supplemental oxygen Blood sugar control with insulin sliding scale and Lantus insulin Continue Xarelto history of PE and DVT. Monitor CBC and renal function closely. 04/13/2020 Patient looks clinically stable Appreciate help from pulmonary Continue steroids PT eval appreciated Awaiting SNF placement CRP levels monitored Wean down oxygen requirement Monitor closely under telemetry S/p convalescent plasma PT eval appreciated patient was ambulatory at the baseline but she had a hard time ambulating Case management consulted for possible placement to SNF Awaiting insurance authorization for placement of SNF Time Spent Managing Pts Care (In Minutes): 40
[2020-04-13] MEDS: HYDROCODONE/APAP 10/325 TAB PO PRN (17:08)
[2020-04-13] MEDS: RIVAROXABAN 20 MG TABLET PO SCH (19:45)
[2020-04-13] MEDS: FUROSEMIDE 20 MG TABLET PO SCH (20:59)
[2020-04-13] MEDS: ATORVASTATIN 40 MG TAB PO SCH (20:59)
[2020-04-13] MEDS: MELATONIN 3 MG TABLET PO SCH (20:59)
[2020-04-14] MEDS: INSULIN -REGULAR HUMAN 50 UNIT/0.5 ML ML SQ SCH ×3 (07:30→16:12)
[2020-04-14] MEDS: NA CHLORIDE 0.9% 1,000 ML IV SCH (08:57)
[2020-04-14] MEDS: FOLIC ACID 1 MG TABLET PO SCH (08:58)
[2020-04-14] MEDS: ASCORBIC ACID 500 MG TABLET PO SCH ×2 (08:58→13:38)
[2020-04-14] MEDS: hydroCHLOROthiazide 25 MG TAB PO SCH (08:59)
[2020-04-14] MEDS: VITAMIN D 1000 UNIT TAB PO SCH (08:59)
[2020-04-14] MEDS: VALSARTAN 160 MG TAB PO SCH (08:59)
[2020-04-14] MEDS: MULTIVITAMIN TAB PO SCH (08:59)
[2020-04-14] MEDS: IPRATROPIUM 200 PUFF/12.9 GM INH IH SCH ×3 (09:00→16:23)
[2020-04-14] MEDS: allopurinoL 100 MG TAB PO SCH (09:00)
[2020-04-14] MEDS: METOPROLOL TAR 50 MG TAB PO SCH (09:00)
[2020-04-14] MEDS: CITALOPRAM 10 MG TABLET PO SCH (09:00)
[2020-04-14] MEDS: predniSONE 20 MG TAB PO SCH (09:00)
[2020-04-14] MEDS: LACTOBACILLUS/ACIDOPHILUS TAB PO SCH (09:00)
[2020-04-14] MEDS: CEFTRIAXONE/SWI 1gm 1 GM/10 ML SYR IVP SCH (09:01)
[2020-04-14] MEDS: HYDROCODONE/APAP 10/325 TAB PO PRN (09:41)
--- NOTE | 2020-04-14 10:41 | P.PN ---
Subjective Date of Service: 04/14/20 Chief Complaint: Respiratory failure from coronal virus Subjective: No new changes, Improving Review of Systems 10-point ROS is otherwise unremarkable Physical Examination - Vital Signs Temperature: 96.9 F Blood Pressure: 122/74 Pulse: 66 Respirations: 21 Pulse Ox (%): 93 - Physical Exam General: Alert, Oriented x3, Obese HEENT: Atraumatic, Normocephalic Neck: Supple Respiratory: Normal air movement, Crackles/rales Cardiovascular: Regular rate/rhythm, Normal S1 S2 Capillary refill: <2 Seconds Gastrointestinal: Soft and benign, W/out hepatosplenomegaly Musculoskeletal: No clubbing, No swelling Integumentary: No rashes, No breakdown Neurological: Normal speech, Normal strength at 5/5 x4 extr Lymphatics: No axilla or inguinal lymphadenopathy Assessment & Plan - Problems (Diagnosis) (1) Acute respiratory failure with hypoxemia Current Visit: Yes Status: Acute (2) Diabetes mellitus type 2 in obese Current Visit: Yes Status: Acute (3) Viral pneumonia Current Visit: Yes Status: Acute (4) History of pulmonary embolism Current Visit: No Status: Acute (5) Hypertension Current Visit: No Status: Acute (6) Hypothyroidism Current Visit: No Status: Acute (7) Obesity Onset Date: 02/12/18 Current Visit: No Status: Acute Qualifiers: Obesity type: due to excess calories Obesity classification: adult class 2 (BMI 35 - 39.9) Serious obesity comorbidity presence: unspecified whether serious comorbidity present Body mass index: unspecified BMI Qualified Code(s): E66.09 - Other obesity due to excess calories Physician Review Additional Text: COVID 19 Pneumonia Acute hypoxic respiratory failure Due to COVID 19 Diabetes Hypertension Hyperlipidemia Hypothyroidism History of PE Morbid obesity History of COPD Course On bronchodilators, IV dexamethasone, IV Zithromax. Supplemental oxygen, wean down oxygen requirement Blood sugar control with insulin sliding scale and Lantus insulin Continue Xarelto history of PE and DVT. Patient looks clinically stable Appreciate help from pulmonary Continue steroids CRP levels monitored Wean down oxygen requirement Monitor closely under telemetry S/p convalescent plasma PT eval appreciated Case management consulted for possible placement to SNF Awaiting insurance authorization for placement of SNF Awaiting SNF placement Time Spent Managing Pts Care (In Minutes): 42
--- NOTE | 2020-04-14 11:36 | P.PN ---
Subjective Date of Service: 04/14/20 Chief Complaint: Respiratory failure from coronal virus Doing much better still has some weakness awaiting transport to long-term acute care facility nasal cannula oxygen Physical Examination - Vital Signs Temperature: 96.9 F Blood Pressure: 122/74 Pulse: 66 Respirations: 21 Pulse Ox (%): 93 Assessment & Plan - Problems (Diagnosis) (1) Pneumonia due to 2019 novel coronavirus Current Visit: Yes Status: Acute Plan: Respiratory failure from snyder virus doing much better on nasal cannula oxygen still very weak CRP levels are now normal vital signs stable Dc IV fluids labs reordered
[2020-04-14 12:33] LABS: Hematocrit 47.3 % (36.0-45.0); MPV 8.9 fL (7.6-11.3); RBC Red Blood Cell Count 5.05 M/uL (3.86-4.86)
[2020-04-14 14:25] LABS: C-Reactive Protein 5.47 mg/L (<3.00); Potassium 4.7 mmol/L (3.5-5.1)
[2020-04-14 14:31] VITALS: O2SAT 94
--- NOTE | 2020-04-14 16:11 | P.DS ---
Admission Date: 04/06/20 Discharge Date: 04/14/20 Disposition: TRANSFER TO [facility] Discharge Condition: FAIR Reason for Admission: Respiratory failure from coronal virus - Problems (1) Acute respiratory failure with hypoxemia Current Visit: Yes Status: Acute (2) Diabetes mellitus type 2 in obese Current Visit: Yes Status: Acute (3) Viral pneumonia Current Visit: Yes Status: Acute (4) History of pulmonary embolism Current Visit: No Status: Acute (5) Hypertension Current Visit: No Status: Acute (6) Hypothyroidism Current Visit: No Status: Acute (7) Obesity Onset Date: 02/12/18 Current Visit: No Status: Acute Qualifiers: Obesity type: due to excess calories Obesity classification: adult class 2 (BMI 35 - 39.9) Serious obesity comorbidity presence: unspecified whether serious comorbidity present Body mass index: unspecified BMI Qualified Code(s): E66.09 - Other obesity due to excess calories Brief History of Present Illness: 64-year-old woman with a history of COPD, pulmonary embolism and DVT on Xarelto, history of diabetes mellitus type 2 presented emergency department with a complaint of progressive shortness of breath, associated with wheezing. She was at [facility] yesterday with with similar symptom. Patient tested positive for COVID 19. Her oxygen saturation on arrival to the ED today was 80% on room air. Her CTA thorax reported bilateral ground-glass opacities superimposed on chronic changes, indicated 1 viral pneumonia. Patient was maintained on 3 L of oxygen by nasal cannula in the ED. She is admitted for further management. Hospital Course: COVID 19 Pneumonia Acute hypoxic respiratory failure Due to COVID 19 Diabetes Hypertension Hyperlipidemia Hypothyroidism History of PE Morbid obesity History of COPD Course On bronchodilators, IV dexamethasone, IV Zithromax. Supplemental oxygen, wean down oxygen requirement Blood sugar control with insulin sliding scale and Lantus insulin Continue Xarelto history of PE and DVT. Patient looks clinically stable Appreciate help from pulmonary Continue steroids CRP levels monitored Wean down oxygen requirement Monitor closely under telemetry S/p convalescent plasma PT eval appreciated Case management consulted for possible placement to SNF Awaiting insurance authorization for placement of SNF Awaiting SNF placement Vital Signs/Physical Exam: Temp Pulse Resp BP Pulse Ox 96.9 F 64 25 H 102/69 91 04/14/20 12:09 04/14/20 14:00 04/14/20 14:00 04/14/20 14:00 04/14/20 14:00 General: Alert, In no apparent distress, Obese HEENT: Atraumatic, Normocephalic Neck: Supple Respiratory: Diminished, Crackles/rales Cardiovascular: No edema, Regular rate/rhythm Capillary refill: <2 Seconds Gastrointestinal: Soft and benign, W/out hepatosplenomegaly Musculoskeletal: No clubbing Integumentary: No rashes, No tenderness/swelling Neurological: Normal speech, Normal strength at 5/5 x4 extr Lymphatics: No axilla or inguinal lymphadenopathy Laboratory Data at Discharge: WBC 15.9 K/uL (4.3-10.9) H 04/14/20 12:15 Hgb 15.4 g/dL (12.0-15.0) H 04/14/20 12:15 Hct 47.3 % (36.0-45.0) H 04/14/20 12:15 Plt Count 292 K/uL (152-406) D 04/14/20 12:15 PT 19.3 SECONDS (9.5-12.5) H 04/07/20 04:07 INR 1.65 04/07/20 04:07 APTT 33.7 SECONDS (24.3-36.9) 04/07/20 04:07 Sodium 142 mmol/L (136-145) 04/14/20 12:15 Potassium 4.7 mmol/L (3.5-5.1) 04/14/20 12:15 BUN 47 mg/dL (7-18) H 04/14/20 12:15 Creatinine 1.01 mg/dL (0.55-1.3) 04/14/20 12:15 Glucose 120 mg/dL (74-106) H 04/14/20 12:15 Phosphorus 4.2 mg/dL (2.5-4.9) 04/11/20 05:44 Magnesium 2.1 mg/dL (1.8-2.4) 04/11/20 05:44 Total Bilirubin 0.4 mg/dL (0.2-1.0) 04/12/20 09:03 AST 11 U/L (15-37) L 04/12/20 09:03 ALT 37 U/L (12-78) 04/12/20 09:03 Alkaline Phosphatase 67 U/L (45-117) 04/12/20 09:03 Triglycerides 127 mg/dL (<150) 04/05/20 03:41 Cholesterol 94 mg/dL (<200) 04/05/20 03:41 HDL Cholesterol 45 mg/dL (40-60) 04/05/20 03:41 Cholesterol/HDL Ratio 2.09 04/05/20 03:41 Home Medications: ALPRAZolam [Alprazolam] 1 mg PO TID PRN 02/12/18 Furosemide [Lasix*] 20 mg PO DAILY 02/12/18 Metoprolol Tartrate [Lopressor*] 50 mg PO BID 02/12/18 Valsartan/Hydrochlorothiazide [Valsartan-Hctz 320-25 mg Tab] 1 tab PO DAILY 02/12/18 Zolpidem Tartrate [Ambien*] 10 mg PO BEDTIME 02/12/18 Citalopram [Celexa*] 1 tab PO DAILY 03/24/18 allopurinoL [Zyloprim*] 1 tab PO DAILY 03/24/18 Albuterol Inhaler [Ventolin Inhaler*] 2 puff IH Q6H PRN #1 hfa.aer.ad 04/05/20 Diclofenac Sodium 50 mg PO BID 04/05/20 Folic Acid 0.4 mg PO DAILY 04/05/20 Rivaroxaban [Xarelto*] 20 mg PO DAILY AT SUPPER #7 tablet 04/05/20 Tizanidine [Zanaflex*] 4 mg PO Q6HP PRN 04/05/20 predniSONE [Deltasone] 20 mg PO BID #14 tab 04/05/20 New Medications: predniSONE [Deltasone] 20 mg PO BID #14 tab Albuterol Inhaler [Ventolin Inhaler*] 2 puff IH Q6H PRN #1 hfa.aer.ad PRN Reason: Shortness Of Breath Rivaroxaban [Xarelto*] 20 mg PO DAILY AT SUPPER #7 tablet Followup: German Villarreal MD [ACTIVE - CAN ADMIT] - Time spent managing pt's care (in minutes): 45
[2020-04-14] MEDS: RIVAROXABAN 20 MG TABLET PO SCH (16:23)
[2020-04-14 17:04] VITALS: BP 119/71; TEMP 97.8
== END 2020-04-14 16:35 | DRG 177 ==
LOC: ER 16:51 → ERHOLD 21:44 → INTOOBSV 21:44 → 3RD-ICU 22:45 → OBSVTOIN 04-06 08:22
PROVIDERS: ADMIT Internal Medicine; ATTEND Family Medicine
PROC: 30233K1 Transfusion of Nonautologous Frozen Plasma into Peripheral Vein, Percutaneous Approach (ICD-10-PCS; principal; 2020-04-06)
PROC: 8E0ZXY6 Isolation (ICD-10-PCS; 2020-04-06)
DX: U07.1 COVID-19 (principal); J12.89 Other viral pneumonia; J96.01 Acute respiratory failure with hypoxia; J44.0 Chronic obstructive pulmonary disease with (acute) lower respiratory infection; E03.9 Hypothyroidism, unspecified; I12.9 Hypertensive chronic kidney disease with stage 1 through stage 4 chronic kidney disease, or unspecified chronic kidney disease; N18.3 Chronic kidney disease, stage 3 (moderate); E11.22 Type 2 diabetes mellitus with diabetic chronic kidney disease; E66.09 Other obesity due to excess calories; Z86.718 Personal history of other venous thrombosis and embolism; Z86.711 Personal history of pulmonary embolism; Z79.01 Long term (current) use of anticoagulants; Z79.899 Other long term (current) drug therapy; Z98.51 Tubal ligation status; Z68.35 Body mass index [BMI] 35.0-35.9, adult
CPT/HCPCS: 36415; 36430; 71045; 71275; 80048; 80053; 80061; 80076; 82728; 82805; 82947; 83605; 83735; 84100; 84145; 84484; 85025; 85027; 85379; 85610; 85730; 86140; 86900; 86901; 86927; 87040; 87324; 87449; 87493; 93005; 94660; 94760; 97163; 99284; G0378; J0456; J0696; J1100; J2920; J3475; J7030; J7050; J7512; Q9967

== ENCOUNTER 2020-06-17 10:05 | Emergency (ER) | payer OTHER ==
[2020-06-17 11:07] LABS: Absolute Lymphocytes (CBC) 0.8 K/uL (0.7-4.9); Basophils % 0.4 % (0-1.3); Hematocrit 27.6 % (36.0-45.0); Lymphocytes % 4.8 % (15.3-44.8); MPV 8.3 fL (7.6-11.3); RBC Red Blood Cell Count 2.87 M/uL (3.86-4.86)
[2020-06-17 11:22] LABS: Potassium 3.9 mmol/L (3.5-5.1)
--- NOTE | 2020-06-17 11:26 | RAD REPORT ---
EXAM DESCRIPTION: Jason Single View06/17/2020 10:45 am CLINICAL HISTORY: Chest pain COMPARISON: March 2020 FINDINGS: Moderate bilateral pulmonary opacities right greater left Heart is mildly enlarged IMPRESSION: Moderate bilateral pulmonary opacities may represent pneumonia
--- NOTE | 2020-06-17 11:40 | RAD REPORT ---
EXAM DESCRIPTION: RAD - Knee Right 2 View - 06/17/2020 10:45 am CLINICAL HISTORY: Leg pain FINDINGS: Comminuted moderately to markedly displaced fracture involves the distal femoral diametaph ysis
[2020-06-17] MEDS ORDERED: NA CHLORIDE 0.9% 250 ML ONE (12:09)
--- NOTE | 2020-06-17 12:43 | RAD REPORT ---
EXAM DESCRIPTION: CT - Chest For Pe Angio - 06/17/2020 12:25 pm CLINICAL HISTORY: Chest pain COMPARISON: March 2020 and 2010 TECHNIQUE: Dynamically enhanced axial 3 mm thick images of the chest were obtained during administra tion of <100> mL Isovue 370 IV contrast. Coronal and oblique reconstruction images were generated and reviewed. Exam utilizes a protocol for optimal evaluation of pulmonary arterial tree. Maximum intensity projections 3D imaging was utilized All CT scans are performed using dose optimization technique as appropriate and may include automated exposure control or mA/KV adjustment according to patient size. FINDINGS: A pulmonary embolus is not seen. A thoracic aortic aneurysm is not noted. A pleural effusion is not seen. A pericardial effusion is not seen. Left pulmonary opacities have partially resolved. Mild improvement in a right pulmonary opacities. Mi ld bronchiectasis IMPRESSION: Negative for a pulmonary embolism. Thyroid goiter Mild improvement in right and moderate improvement in the left pulmonary opacities probably improving pneumonia superimposed over chronic changes
[2020-06-17 12:53] LABS: Anisocytosis 1+; Blood Morphology Comment NOTED (NOT SEEN); Platelet Estimate ADEQ; White Blood Cell Scan OK (OK)
--- NOTE | 2020-06-17 13:48 | ER ---
Nurse's Notes [facility] Name: Rosio Jain Age: 64 yrs Sex: Female : 1955 Arrival Date: 06/17/2020 Time: 10:16 Bed 17 Private MD: Diagnosis: Displaced comminuted distal right femur fracture Presentation: 06/17 10:17 Chief complaint: EMS states: pt fell 3 days ago and landed on right knee. pt states ah attempted to ambulate today and heard and felt a pop in right knee. pain /. Also c/o left shoulder/bicep pain. EMS vitals 75, 143/75, 83% on RA Pt wears O2 3LPM at home. SpO2 96% on 3 LPM. Coronavirus screen: At this time, the client does not indicate any symptoms associated with coronavirus-19. Ebola Screen: No symptoms or risks identified at this time. Initial Sepsis Screen: Does the patient meet any 2 criteria? No. Patient's initial sepsis screen is negative. Does the patient have a suspected source of infection? No. Patient's initial sepsis screen is negative. Risk Assessment: Do you want to hurt yourself or someone else? Patient reports no desire to harm self or others. Onset of symptoms is unknown. 10:17 Method Of Arrival: EMS: [facility] 10:17 Acuity: DYAN 3 ah Historical: - Allergies: 10:24 NKA; - Home Meds: 10:24 alprazolam 1 mg Oral tab [Active]; citalopram 20 mg tab 1 tab once daily [Active]; folic acid 400 mcg Oral tab 1 tab once daily [Active]; furosemide 20 mg Oral tab 1 tab once daily [Active]; levothyroxine 175 mcg tab [Active]; metoprolol tartrate 50 mg Oral tab [Active]; valsartan-hydrochlorothiazide 320-25 mg Oral tab 1 tab once daily [Active]; Xarelto 20 mg Oral tab 1 tab once daily [Active]; zolpidem 10 mg Oral tab 1 tab once daily [Active]; - PMHx: 10:24 Anxiety; Asthma; COPD; Diabetes - NIDDM; Hypertension; Hypothyroidism; PE; ADD/ADHD; - Immunization history:: Adult Immunizations up to date. - Social history:: Smoking status: Patient denies any tobacco usage or history of. Screenin:37 Abuse screen: Denies threats or abuse. Nutritional screening: No deficits noted. aa5 Tuberculosis screening: No symptoms or risk factors identified. Fall Risk None identified. Assessment: 10:50 General: Appears uncomfortable, Behavior is calm, cooperative, appropriate for age. aa5 Pain: Complains of pain in right knee and left shoulder Pain currently is 8 out of 10 on a pain scale. Neuro: Level of Consciousness is awake, alert, obeys commands, Oriented to person, place, time, situation, Appropriate for age Gait is unable to bear weight. Respiratory: Airway is patent Respiratory effort is even, unlabored, Respiratory pattern is regular, symmetrical, wears oxygen at home. GI: Abdomen is obese. Musculoskeletal: Circulation, motion, and sensation intact. Range of motion: limited in right knee Swelling present in right knee and left hand. 12:12 Reassessment: Pt to CT at this time via stretcher. aa5 12:40 Reassessment: Pt returned from radiology via [employer]. No needs voiced at this time. aa5 13:30 Reassessment: Patient and/or family updated on plan of care and expected duration. Pain ah level reassessed. Patient is alert, oriented x 3, equal unlabored respirations, skin warm/dry/pink. Pt resting in bed with eyes closed and resp even and unlabored. No needs voiced at this time. Awaiting on accepting MD and room assignment for transfer. 14:48 Reassessment: Report called to MARK Lane at [facility]. 15:10 Reassessment: Report given to S[employer] softlines supervisor with [facility]. Staff x4 assisted with transfer. Pt tolerated well. Vital Signs: 10:17 BP 135 / 70; Pulse 80; Resp 20; Pulse Ox 95% on 3 lpm NC; ah 11:30 BP 110 / 58; Pulse 88; Resp 18; Temp 98.0(O); Pulse Ox 100% on 2 lpm NC; Weight 163.29 mh5 kg; Height 5 ft. 9 in. (175.26 cm); 12:48 BP 104 / 71; Pulse 96; Resp 22; Temp 98.2(O); Pulse Ox 100% on 2 lpm NC; mh5 13:30 BP 111 / 76; Pulse 88; Resp 18; Pulse Ox 100% ; ah 14:15 BP 104 / 78; Pulse 82; Resp 18; Pulse Ox 98% 3 lpm ; ah 15:00 BP 100 / 74; Pulse 78; Resp 15; Pulse Ox 97% ; ah 11:30 Body Mass Index 53.16 (163.29 kg, 175.26 cm) [facility] ED Course: 10:16 Patient arrived in ED. ah 10:22 Kamille Larios FNP-C is [facility]. snw 10:22 Ben Contreras MD is Attending Physician. snw 10:22 Triage completed. ah 10:45 Chest Single View XRAY In Process Unspecified. EDMS 10:46 Knee Right 2 View In Process Unspecified. EDND 11:02 Basic Metabolic Panel Sent. [facility] 11:02 CBC with Diff Sent. [facility] 11:02 Type And Screen Sent. [facility] 11:02 Initial lab(s) drawn, by ma, sent to lab. T\T\S collected, blood band applied to patient. [facility] Maintain EMS IV. Dressing intact. Site clean \T\ dry. 11:02 Patient has correct armband on for positive identification. Bed in low position. Call [facility] light in reach. Side rails up X2. Warm blanket given. Pulse ox on. NIBP on. 11:18 uYn Cronin, RN is Primary Nurse. 11:31 Perez cath inserted, using sterile technique, 18 Fr., by ma, balloon inflated, to [facility] gravity drainage. 11:44 EKG done, by ED staff, reviewed by Ben Contreras MD. [facility] 12:26 CT Chest For PE Angio In Process Unspecified. EDMS 12:57 initiated a transfer with [place] from the [facility]. 13:20 connected the orthopedic workers' compensation commissioner for [facility] with Kamille Tanner [employer] Continuous Process for patient transfer eb consultation. 13:[address] Champion the hospitalist workers' compensation commissioner for [facility] with Kamille Tanner [employer] Process for eb patient transfer consultation. 13:57 administrative approval given by Perico Horvath Rn/ patient has been accepted to [address] [place] [address] bed 1523/ Dr. Epstein has accepted the patient in transfer/ report to be called to the transfer center [phone]. 15:16 No provider procedures requiring assistance completed. Patient transferred, IV remains in place. intact. Administered Medications: 11:58 Drug: NS 0.9% 250 ml Route: IV; Rate: bolus; Site: right upper arm; aa5 Outcome: 13:48 ER care complete, transfer ordered by MD. dockery 15:16 Transferred by ground EMS [place] [facility] [place] completed. 15:16 Condition: stable 15:16 Discharge instructions given to patient, Instructed on the need for transfer, Demonstrated understanding of 15:16 Patient left the ED. Signatures: Dispatcher [employer] EDMS Kamille Larios, FIELD COLLECTOR-C FIELD COLLECTOR-Csnw Fani Estrada, RN RN [id number] Winsome Billings Elizabeth eb Harris, Amy, RN RN
--- NOTE | 2020-06-17 13:48 | EDPHYS ---
Physician Documentation [facility] Name: Rosio Jain Age: 64 yrs Sex: Female : 1955 Arrival Date: 06/17/2020 Time: 10:16 Bed 17 Private MD: ED Physician Ben Contreras HPI: 06/17 12:00 This 64 yrs old Female presents to ER via EMS with complaints of Knee Injury. snw 12:00 Onset: The symptoms/episode began/occurred suddenly, this morning. The patient has not snw experienced similar symptoms in the past. pt dx with Covid 19 in March. On 3L O2 since. Pt states she was walking with her walker three days ago and tripped on the rug and fell, landing on right knee. Pt states this am she stood to get out of bed and heard and felt a pop in her knee.. Historical: - Allergies: 10:24 NKA; ah - Home Meds: 10:24 alprazolam 1 mg Oral tab [Active]; citalopram 20 mg tab 1 tab once daily [Active]; ah folic acid 400 mcg Oral tab 1 tab once daily [Active]; furosemide 20 mg Oral tab 1 tab once daily [Active]; levothyroxine 175 mcg tab [Active]; metoprolol tartrate 50 mg Oral tab [Active]; valsartan-hydrochlorothiazide 320-25 mg Oral tab 1 tab once daily [Active]; Xarelto 20 mg Oral tab 1 tab once daily [Active]; zolpidem 10 mg Oral tab 1 tab once daily [Active]; - PMHx: 10:24 Anxiety; Asthma; COPD; Diabetes - NIDDM; Hypertension; Hypothyroidism; PE; ADD/ADHD; ah - Immunization history:: Adult Immunizations up to date. - Social history:: Smoking status: Patient denies any tobacco usage or history of. ROS: 11:59 Constitutional: Negative for fever, chills, and weight loss, Eyes: Negative for injury, snw pain, redness, and discharge, ENT: Negative for injury, pain, and discharge, Neck: Negative for injury, pain, and swelling, Cardiovascular: Negative for chest pain, palpitations, and edema, Respiratory: Negative for shortness of breath, cough, wheezing, and pleuritic chest pain, Abdomen/GI: Negative for abdominal pain, nausea, vomiting, diarrhea, and constipation, Back: Negative for injury and pain, : Negative for injury, bleeding, discharge, and swelling, Skin: Negative for injury, rash, and discoloration, Neuro: Negative for headache, weakness, numbness, tingling, and seizure, Psych: Negative for depression, anxiety, suicide ideation, homicidal ideation, and hallucinations. 11:59 MS/extremity: Positive for injury or acute deformity, decreased range of motion, pain, tenderness, of the right knee. Exam: 11:57 Head/Face: Normocephalic, atraumatic. Eyes: Pupils equal round and reactive to light, snw extra-ocular motions intact. Lids and lashes normal. Conjunctiva and sclera are non-icteric and not injected. Cornea within normal limits. Periorbital areas with no swelling, redness, or edema. ENT: Nares patent. No nasal discharge, no septal abnormalities noted. Tympanic membranes are normal and external auditory canals are clear. Oropharynx with no redness, swelling, or masses, exudates, or evidence of obstruction, uvula midline. Mucous membranes moist. Neck: Trachea midline, no thyromegaly or masses palpated, and no cervical lymphadenopathy. Supple, full range of motion without nuchal rigidity, or vertebral point tenderness. No Meningismus. Chest/axilla: Normal chest wall appearance and motion. Nontender with no deformity. No lesions are appreciated. Cardiovascular: Regular rate and rhythm with a normal S1 and S2. No gallops, murmurs, or rubs. Normal PMI, no JVD. No pulse deficits. 11:57 Back: No spinal tenderness. No costovertebral tenderness. Full range of motion. Skin: Warm, dry with normal turgor. Normal color with no rashes, no lesions, and no evidence of cellulitis. Neuro: Awake and alert, GCS 15, oriented to person, place, time, and situation. Cranial nerves II-XII grossly intact. Motor strength 5/5 in all extremities. Sensory grossly intact. Cerebellar exam normal. Normal gait. Psych: Awake, alert, with orientation to person, place and time. Behavior, mood, and affect are within normal limits. 11:57 Constitutional: The patient appears alert, awake, obese. 11:57 Respiratory: the patient does not display signs of respiratory distress, Respirations: normal, Breath sounds: mostly bowel sounds, pt on 3L via N/C at 100%, Respiratory rate: 20 11:57 Abdomen/GI: Inspection: obese Bowel sounds: hyperactive, Palpation: abdomen is soft and non-tender. 11:57 Musculoskeletal/extremity: Extremities: grossly normal except: noted in the right quadriceps: decreased ROM, swelling, tenderness, ROM: limited active range of motion due to pain, limited passive range of motion due to pain, Pulses: are normal with no appreciated deficits, the right quadriceps and right knee Sensation intact. Vital Signs: 10:17 BP 135 / 70; Pulse 80; Resp 20; Pulse Ox 95% on 3 lpm NC; ah 11:30 BP 110 / 58; Pulse 88; Resp 18; Temp 98.0(O); Pulse Ox 100% on 2 lpm NC; Weight 163.29 mh5 kg; Height 5 ft. 9 in. (175.26 cm); 12:48 BP 104 / 71; Pulse 96; Resp 22; Temp 98.2(O); Pulse Ox 100% on 2 lpm NC; mh5 13:30 BP 111 / 76; Pulse 88; Resp 18; Pulse Ox 100% ; ah 14:15 BP 104 / 78; Pulse 82; Resp 18; Pulse Ox 98% 3 lpm ; ah 15:00 BP 100 / 74; Pulse 78; Resp 15; Pulse Ox 97% ; ah 11:30 Body Mass Index 53.16 (163.29 kg, 175.26 cm) mh5 MDM: 10:43 Patient medically screened. snw 13:31 Data reviewed: vital signs, nurses notes. Data interpreted: Pulse oximetry: on room air snw is 100 %. Interpretation: normal. Counseling: I had a detailed discussion with the patient and/or guardian regarding: the historical points, exam findings, and any diagnostic results supporting the discharge/admit diagnosis, lab results, radiology results, the need to transfer to another facility, [facility] does not immediately have the required specialist. Physician consultation: Dr. Siddharth Shaver was called at 13:33, was contacted at 13:33, regarding consult, patient's condition, Dr. Shaver kindly agrees to see pt upon transfer.. 13:45 Physician consultation: Dr. Epstein was called at 13:45, was contacted at 13:45, snw regarding regarding transfer, to [facility]. Dr. Epstein kindly accepts pt in transfer. Awaiting bed.. 14:41 ED course: neurovascularly intact to lower extremities bilaterally. snw 06/17 10:45 Order name: Basic Metabolic Panel; Complete Time: 11:33 snw 06/17 10:45 Order name: CBC with Diff; Complete Time: 12:54 snw 06/17 10:23 Order name: Chest Single View XRAY; Complete Time: 11:33 snw 06/17 10:45 Order name: Type And Screen; Complete Time: 11:54 snw 06/17 12:53 Order name: CBC Smear Scan; Complete Time: 12:54 EDMS 06/17 10:45 Order name: Labs collected and sent; Complete Time: 11:02 snw 06/17 10:45 Order name: Knee Right 2 View; Complete Time: 11:41 EDMS 06/17 10:45 Order name: EKG; Complete Time: 10:46 snw 06/17 10:45 Order name: EKG - Nurse/Tech; Complete Time: 11:44 snw 06/17 11:06 Order name: Perez; Complete Time: 11:26 snw 06/17 11:06 Order name: Misc. Order: please document wt and temp; Complete Time: 12:34 snw 06/17 11:35 Order name: CT Chest For PE Angio; Complete Time: 12:54 snw Administered Medications: 11:58 Drug: NS 0.9% 250 ml Route: IV; Rate: bolus; Site: right upper arm; aa5 Disposition: 16:05 Co-signature as Attending Physician, Ben Contreras MD I agree with the assessment and kdr plan of care. Disposition: 06/17/20 13:48 Transfer ordered to [facility]. Diagnosis is Displaced comminuted distal right femur fracture. - Reason for transfer: Specialty. - Accepting physician is Dr. Epstein. - Condition is Stable. - Problem is new. - Symptoms are unchanged. Signatures: Dispatcher [employer] EDVA Ben Contreras MD MD kdr Waters, Shelly, PRODUCTION CLOTH CUTTER-C PRODUCTION CLOTH CUTTER-Csnw Fani Estrada, RN RN aa5 Yun Cronin RN RN Corrections: (The following items were deleted from the chart) 10:45 10:24 Knee Right 3 View+RAD.RAD.BRZ ordered. EDMS EDMS 15:16 13:48 06/17/2020 13:48 Transfer ordered to [facility]. Diagnosis is Displaced comminuted distal right femur fracture. Reason for transfer: Specialty. Accepting physician is Dr. Epstein. Condition is Stable. Problem is new. Symptoms are unchanged. snw
[2020-06-17 15:26] VITALS: TEMP 98.2
[2020-06-17 15:30] VITALS: BP 100/74; O2SAT 97
--- OUTSIDE RECORDS SUMMARY | 2020-06-21 22:25 | XMS REPORT | Clinical Summary ---
:1955 Author Organization [facility] [employer] Address [address] [place] [address] Care Team Providers Name Role Phone Arthur Fong MD Primary Care Provider [phone] Allergies No Known Active Allergies Medications Medication Sig Dispensed Refills Start [...] Acute renal failure 12/03/2017 Colovesical fistula 10/20/2017 Surgical History Surgery Date Site/Laterality Comments ZZ_HIST_IR RENAL STONE 09/15/2002 - EXTRACTION 09/14/2003 THYROID CYST EXCISION 09/15/2005 - 09/14/2006 COLONOSCOPY 10/22/2017 N/A Procedure: COLON OSCOPY; Surgeon: Mateo Quinones MD; Locat ion: [facility]; Service: General ; Laterality: N/A; TUBAL LIGATION 09/15/1983 - 09/14/1984 LIPOMA RESECTION 09/15/2013 - 09/14/2014 Medical History Medical History Date Comments Hypertension Hypothyroidism Anxiety Pulmonary fibrosis (HCC) Colovesical fistula Type 2 diabetes mellitus (HCC) Depression Pulmonary embolism (HCC) 12/2016 found another o ne in 05/2017 Renal stone Renal insufficiency Liver disease does not know detail s Anesthesia nhap/nfhap Exercises daily walk- 30min- some so b/no chest pain Arthritis osteo Asthma Family History Patient is adopted Relation Name Status Comments Father Mother Social History Tobacco Use Types Packs/Day Years Used Date Never Smoker Smokeless Tobacco: Never Used Alcohol Use Drinks/Week oz/Week Comments No Sex Assigned at Date Recorded Not on file Last Filed Vital Signs Not on file Plan of Treatment Health Maintenance Due Date Last Done Comments DIABETIC RETINAL EYE EXAM 1955 DIABETIC FOOT EXAM 1966 URINE MICROALBUMIN 1966 CERVICAL CANCER SCREENING 1977 BREAST CANCER SCREENING 2006 COLONOSCOPY SCREENING 2006 SHINGLES VACCINES (#1) 2006 INFLUENZA VACCINE 04/15/2020 Implants Implanted Type Area Real Estate Operations Manager Device Shelf Model / Identifier Expiration Serial / Date Lot Catheter Cv Powerline Dlmn Al 6fr - [id number] Surgical N/A: N/A BAR D ACCESS [id number] / Implanted: 12/11/2017 at [facility] (Quantity not on file) Implan ts; SYSTEMS / Expanders; Extenders; Surgical Wires Results Not on fileafter 06/21/2019 Insurance Payer Benefit Plan / Subscriber ID Effective Dates Phone Addre ss Type Group CIGNA CIGNA OPEN [id number] 2003-Present HMO ACCESS/NETWORK MEDICARE MEDICARE PART A [id number] 2009-Present [place] B Advance Directives For more information, please contact: [phone] Type Date Recorded Patient Dba Developer Explanati on Advance Directives, Living Will and Medical Power of Custodial Operations Manager
--- OUTSIDE RECORDS SUMMARY | 2020-06-21 22:26 | XMS REPORT | Clinical Summary ---
:1955 Author Organization [facility] Address [address] [place] [address] Care Team Providers Name Role Phone Sharonda Fong Primary Care Provider Unavailable Allergies No Known Allergies Medications Medication Sig Dispensed Refills Start Date End Date Status zolpidem (AMBIEN) 10 mg tablet 0 6 Suspended citalopram (CELEXA) 20 MG tablet 0 016 Suspended furosemide (LASIX) 20 MG tablet 0 08/17/20 16 Suspended levothyroxine (SYNTHROID, 0 08/17/2016 Suspended LEVOTHROID) 150 MCG tablet metoprolol (LOPRESSOR) 50 MG 0 08/17/2016 Suspended tablet valsartan-hydrochlorothiazide 0 09/30/2016 Suspended (DIOVAN-HCT) 320-25 mg per tablet potassium citrate (UROCIT-K) 10 0 08/17/20 16 Suspended mEq (1,080 mg) SR tablet HEMATINIC/FOLIC ACID 324 mg (106 0 017 Suspended mg iron)-1 mg Tab Active Problems Problem Noted Date Femoral distal fracture 06/17/2020 Chronic bronchitis 06/17/2020 HTN (hypertension) 06/17/2020 Acquired hypothyroidism 06/17/2020 VTE (venous thromboembolism) 06/17/2020 Leukocytosis 10/31/2016 DM (diabetes mellitus), type 2 10/31/2016 Diverticulitis 10/30/2016 Encounters Date Type Specialty Care Team Description 06/21/2020 Surgery Luis Angel Nation,FEMUR MD Manjinder 06/21/2020 Anesthesia Event Stan Mensah MD 06/17/2020 Hospital Encounter General Internal [place], Close d displaced comminuted fracture of shaft of right femur, initial encounter (HCC); Medicine Maryellen Essential hyper tension; MD Jassi Leukemoid reaction; Arlen VTE (venous thr omboembolism) MD Dakotah Edgar, MD Luke 06/17/2020 Orders Only General Internal Medicine 06/17/2020 Travel after 06/21/2019 Social History Tobacco Use Types Packs/Day Years Used Date Never Smoker Sex Assigned at Date Recorded Not on file Job Start Date Occupation Industry Not on file Not on file Not on file Travel History Travel Start Travel End No recent travel history available. Last Filed Vital Signs Vital Sign Reading Time Taken Blood Pressure 92/51 06/21/2020 8:40 PM CDT Pulse 102 06/21/2020 9:26 PM CDT Temperature 36.7 C (98 F) 06/21/2020 8:40 PM CDT Respiratory Rate 18 06/21/2020 9:26 PM CDT Oxygen Saturation 98% 06/21/2020 9:26 PM CDT Inhaled Oxygen Concentration - - Weight 139.7 kg (308 lb) 06/17/2020 4:00 PM CDT Height 175.3 cm (5' 9") 06/17/2020 4:00 PM CDT Body Mass Index 45.48 06/17/2020 4:00 PM CDT Plan of Treatment Health Maintenance Due Date Last Done Comments BREAST CANCER SCREENING 1955 COLON CANCER SCREENING COLONOSCOPY 1955 PNEUMOCOCCAL VACCINE 2-64 YEARS AT 1961 RISK (1 of 1 - PPSV23) DIABETIC EYE EXAM 1966 DIABETIC FOOT EXAM 1966 URINE MICROALBUMIN 1966 CERVICAL CANCER SCREENING PAP ONLY 1977 (Age 21-65) LIPID PANEL 2001 MEDICARE ANNUAL WELLNESS (YEAR 2 03/16/2010 or FIRST YEAR if no IPPE) INFLUENZA VACCINE (#1) 2020 06/15/2019, 10/21/2018, 06/23/2017, Additional history exists HEMOGLOBIN A1C 12/17/2020 06/18/2020, 11/02/2016, 11/01/2016, Additional history exists Implants Implanted Type Area Cash Register Mechanic Device Identifier Shelf Model / Expiration Serial / Date Lot Anastacia Frederick T2 [id number] 1806-0085s - [id number] IMPLANTS Right: FABIAN:FABIAN [id number] 04/14/2025 1806-0085S / Implanted: Qty: 1 on 06/21/2020 by Luis Angel Nation MD [employer] / [id number] Scr Barney T2ft 5x75mm Ti Strl 1896-5075s - [id number] IMPLANTS Right: FABIAN:FABIAN [id number] 04/14/2025 [id number] / Implanted: Qty: 1 on 06/21/2020 by Luis Angel Nation MD [employer] / [id number] Scr Barney T2ft 5x90mm Ti Strl 1896-5090s - [id number] IMPLANTS Right: FABIAN:FABIAN [id number] 12/13/2024 [id number] / Implanted: Qty: 1 on 06/21/2020 by Luis Angel Nation MD [employer] / [id number] Scr Barney T2ft 5x80mm Ti Strl 1896-5080s - [id number] IMPLANTS Right: FABIAN:FAIBAN [id number] 03/14/2025 1896-5080S / Implanted: Qty: 1 on 06/21/2020 by Luis Angel Nation MD [employer] / [id number] Scr Barney T2ft 5x37.5mm Ti Str 1896-5037s - [id number] IMPLANTS Right: FABIAN:FABIAN [id number] 04/14/2025 [id number] / Implanted: Qty: 1 on 06/21/2020 by Luis Angel Nation MD [employer] / [id number] Scr Barney T2ft 5x37.5mm Ti Str 1896-5037s - [id number] IMPLANTS Right: FABIAN:FABIAN [id number] 01/12/2025 1896-5037S / Implanted: Qty: 1 on 06/21/2020 by Luis Angel Nation MD [employer] / [id number] Gwire Im Ball T2 [id number] Ss 1806-0085s - [id number] IMPLANTS Right: FABIAN:FABIAN [id number] 04/14/2025 1806-0085S / Implanted: Qty: 1 on 06/21/2020 by Luis Angel Nation MD [employer] / [id number] Supracondylar Nail [id number] Right: FABIAN [id number] 07/15/2024 1826-1236S / Implanted: Qty: 1 on 06/21/2020 by Luis Angel Nation MD F [facility] / [id number] Procedures The patient is currently admitted. The information in this section might not be complete until the patient is discharged. Procedure Name Priority Date/Time Associated Diagnosis Comme nts TRANSFUSION SERVICE 06/21/2020 6:01 REPORT - SCAN PM CDT POCT-GLUCOSE METER Routine 06/21/2020 3:24 Resul ts for this PM CDT procedure are i n the results section. POCT-GLUCOSE METER Routine 06/21/2020 12:28 Resul ts for this PM CDT procedure are i n the results section. CBC (HEMOGRAM ONLY) STAT 06/21/2020 10:43 Resu lts for this AM CDT procedure are i n the results section. POCT-GLUCOSE METER Routine 06/21/2020 9:45 Resul ts for this AM CDT procedure are i n the results section. FL FLUORO Routine 06/21/2020 8:50 Results for this NON-SPECIFIC UP TO 1 AM CDT procedu re are in HOUR the results section. PROCEDURE W/ C-ARM 06/21/2020 8:00 Closed fracture of AM CDT distal end of femur, unspecified fracture morphology, unspecified laterality, initial encounter (HCC) Diabetes mellitus with no complication (HCC) Case Notes 2 HRS PER VERONICAPATIENT IS N'T A DIALYSIS PATIENT OKAYED BY [employer] 06/20 @ 1142 Special Needs (C-ARM, FABIAN) ORIF,FEMUR 06/21/2020 8:00 AM CDT Closed fracture o f distal end of femur, unspecified fracture morphol ogy, unspecified laterality, init ial encounter (HCC) Diabetes mellitus with no co mplication (HCC) Case Notes 2 HRS PER VERONICAPATIENT IS N'T A DIALYSIS PATIENT OKAYED BY MARKEL/SHAI 06/20 @ 1142 Special Needs (C-ARM, FABIAN) PREPARE LEUKO-REDUCED RBC Routine 06/20/2020 11:54 PM CDT Results for this procedure are i n the results section . POCT-GLUCOSE METER Routine 06/20/2020 11:34 PM CDT Results for this procedure are i n the results section . POCT-GLUCOSE METER Routine 06/20/2020 6:39 PM CDT Results for this procedure are i n the results section . TRANSFUSION SERVICE REPORT - 06/20/2020 6:21 PM CDT SCAN XR PELVIS 1 OR 2 VIEWS Routine 06/20/2020 6:13 PM CDT Results for this procedure are i n the results section . XR SHOULDER 1 VIEW LEFT Routine 06/20/2020 5:26 PM CDT Results for this procedure are i n the results section . XR ELBOW LEFT (MIN 3 VIEWS) Routine 06/20/2020 5:26 PM CDT Results for this procedure are i n the results section . NM MYOCARD IMAGING MULTI Routine 06/20/2020 3:41 PM CDT Results for this PHARM PLANAR procedure are i n the results section . POCT-GLUCOSE METER Routine 06/20/2020 12:20 PM CDT Results for this procedure are i n the results section . POCT-GLUCOSE METER Routine 06/20/2020 6:07 AM CDT Results for this procedure are i n the results section . CBC W/PLT COUNT & AUTO Routine 06/20/2020 4:32 AM CDT Results for this DIFFERENTIAL procedure are i n the results section . CBC W/PLT COUNT & AUTO Routine 06/20/2020 4:32 AM CDT Results for this DIFFERENTIAL procedure are i n the results section . MAGNESIUM Routine 06/20/2020 4:32 AM CDT Resu lts for this procedure are i n the results section . PHOSPHORUS Routine 06/20/2020 4:32 AM CDT Resu lts for this procedure are i n the results section . CALCIUM, IONIZED Routine 06/20/2020 4:32 AM CDT Results for this procedure are i n the results section . VITAMIN B12 AND FOLATE Routine 06/20/2020 4:32 AM CDT Results for this procedure are i n the results section . COMPREHENSIVE METABOLIC Routine 06/20/2020 4:32 AM CDT Results for this PANEL procedure are i n the results section . POCT-GLUCOSE METER Routine 06/19/2020 9:05 PM CDT Results for this procedure are i n the results section . TRANSFUSE LEUKO-REDUCED RED Routine 06/19/2020 8:26 PM CDT BLOOD CELLS TRANSFUSION SERVICE REPORT - 06/19/2020 6:00 PM CDT SCAN POCT-GLUCOSE METER Routine 06/19/2020 1:05 PM CDT Results for this procedure are i n the results section . TREADMILL Routine 06/19/2020 9:45 AM CDT Resu lts for this TOLERANCE(NON-NUCLEAR proced ure are in the TREADMILL) results section . ECG 12-LEAD Routine 06/19/2020 9:41 AM CDT Procedure Note - Interface, External Ris In - 06/19/2020 10:06 AM CDT Ventricular Rate 99 BPM Atrial Rate 99 BPM P-R Interval 186 ms QRS Duration 88 ms Q-T Interval 366 ms QTC Calculation(Bazett) 469 ms P [place] 56 degrees R [place] 16 degrees T [place] 167 degrees Normal sinus rhythm Nonspecific T wave abnormali ty Abnormal ECG ECG 12-LEAD Routine 06/19/2020 9:24 AM CDT Procedure Note - Interface, External Ris In - 06/19/2020 10:06 AM CDT Ventricular Rate 95 BPM Atrial Rate 95 BPM P-R Interval 164 ms QRS Duration 94 ms Q-T Interval 354 ms QTC Calculation(Bazett) 444 ms P [place] 54 degrees R [place] 14 degrees T [place] 158 degrees Normal sinus rhythm Nonspecific T wave abnormali ty Abnormal ECG POCT-GLUCOSE METER Routine 06/19/2020 5:47 AM CDT Results for this procedure are i n the results section . SARS-COV2/RT-PCR (SLHS & REF Routine 06/19/2020 5:13 AM CDT Results for this LABS) procedure are i n the results section . CBC W/PLT COUNT & AUTO Routine 06/19/2020 3:54 AM CDT Results for this DIFFERENTIAL procedure are i n the results section . CBC W/PLT COUNT & AUTO Routine 06/19/2020 3:54 AM CDT Results for this DIFFERENTIAL procedure are i n the results section . CALCIUM, IONIZED Routine 06/19/2020 3:54 AM CDT Results for this procedure are i n the results section . MAGNESIUM Routine 06/19/2020 3:53 AM CDT Resu lts for this procedure are i n the results section . PHOSPHORUS Routine 06/19/2020 3:53 AM CDT Resu lts for this procedure are i n the results section . COMPREHENSIVE METABOLIC Routine 06/19/2020 3:53 AM CDT Results for this PANEL procedure are i n the results section . ABORH, MANUAL STAT 06/18/2020 10:08 PM CDT Res ults for this procedure are i n the results section . POCT-GLUCOSE METER Routine 06/18/2020 9:34 PM CDT Results for this procedure are i n the results section . TYPE AND SCREEN, AUTOMATED Routine 06/18/2020 5:02 PM CDT Results for this procedure are i n the results section . POCT-GLUCOSE METER Routine 06/18/2020 3:58 PM CDT Results for this procedure are i n the results section . POCT-GLUCOSE METER Routine 06/18/2020 11:07 AM CDT Results for this procedure are i n the results section . TROPONIN I Routine 06/18/2020 9:31 AM CDT Resu lts for this procedure are i n the results section . POCT-GLUCOSE METER Routine 06/18/2020 7:58 AM CDT Results for this procedure are i n the results section . CBC W/PLT COUNT & AUTO Routine 06/18/2020 5:44 AM CDT Results for this DIFFERENTIAL procedure are i n the results section . T4, FREE Routine 06/18/2020 5:44 AM CDT Resu lts for this procedure are i n the results section . B-TYPE NATRIURETIC FACTOR Routine 06/18/2020 5:44 AM CDT Results for this (BNP) procedure are i n the results section . COMPREHENSIVE METABOLIC Routine 06/18/2020 5:44 AM CDT Results for this PANEL procedure are i n the results section . TSH/FREE T4 IF INDICATED Routine 06/18/2020 5:44 AM CDT Results for this procedure are i n the results section . HEMOGLOBIN A1C Routine 06/18/2020 5:44 AM CDT Re sults for this procedure are i n the results section . MAGNESIUM Routine 06/18/2020 5:44 AM CDT Resu lts for this procedure are i n the results section . CBC W/PLT COUNT & AUTO Routine 06/18/2020 5:44 AM CDT Results for this DIFFERENTIAL procedure are i n the results section . PHOSPHORUS Routine 06/18/2020 5:44 AM CDT Resu lts for this procedure are i n the results section . CALCIUM, IONIZED Routine 06/18/2020 5:44 AM CDT Results for this procedure are i n the results section . TROPONIN I Routine 06/18/2020 5:44 AM CDT Resu lts for this procedure are i n the results section . 2D ECHO W/ DOPPLER Routine 06/17/2020 10:02 PM CDT Results for this (CW/PW/COLOR) procedure are in the results section . POCT-GLUCOSE METER Routine 06/17/2020 9:40 PM CDT Results for this procedure are i n the results section . CBC W/PLT COUNT & AUTO Routine 06/17/2020 9:07 PM CDT Results for this DIFFERENTIAL procedure are i n the results section . COMPREHENSIVE METABOLIC Routine 06/17/2020 9:07 PM CDT Results for this PANEL procedure are i n the results section . CBC W/PLT COUNT & AUTO Routine 06/17/2020 9:07 PM CDT Results for this DIFFERENTIAL procedure are i n the results section . ECG 12-LEAD Routine 06/17/2020 8:01 PM CDT Procedure Note - Interface, External Ris In - 06/17/2020 8:55 PM CDT Ventricular Rate 88 BPM Atrial Rate 88 BPM P-R Interval 146 ms QRS Duration 88 ms Q-T Interval 388 ms QTC Calculation(Bazett) 469 ms P [place] 48 degrees R [place] 8 degrees T [place] 104 degrees Normal sinus rhythm Minimal voltage criteria for LVH, may be normal variant Abnormal QRS-T angle, consid er primary T wave abnormality Abnormal ECG No previous ECGs available ECG 12-LEAD Routine 06/17/2020 8:01 PM CDT Resu lts for this procedure are in the results section . after 06/21/2019 Results TRANSFUSION SERVICE REPORT - SCAN (06/21/2020 6:01 PM CDT)Only the most recent of3 resultswithin the time period is included. Narrative Performed At This result has an attachment that is no t available. POC-Glucose meter (06/21/2020 3:24 PM CDT)Only the most recent of15 results within the time period is included. POC-Glucose Meter 153 (H)Comment: : TESTED 70 - 110 mg/dL [facility] AT [address], [address]: Contract Attorney/Senior Cost Estimator ID = [id number] for CAMERON MUÑIZ Specimen Blood Performing Organization Address City/State/Zipcode Phone Number [facility] [address] [place] [address] [phone] [place] CBC (Hemogram only) (06/21/2020 10:43 AM CDT) WBC 27.9 (H) 3.5 - 10.5 K/L [facility] RBC 3.37 (L) 3.93 - 5.22 M/L [facility] Hemoglobin 10.8 (L) 11.2 - 15.7 GM/DL [facility] Hematocrit 35.5 34.1 - 44.9 % [facility] MCV 105.3 (H) 79.4 - 94.8 fL [facility] Comment: [facility] Discordant MCV result compar ed to previous result; clinical correlation required MCH 32.0 25.6 - 32.2 pg [facility] MCHC 30.4 (L) 32.2 - 35.5 GM/DL [facility] RDW 16.5 (H) 11.7 - 14.4 % [facility] Platelets 254 150 - 450 K/CU MM [facility] MPV 9.9 9.4 - 12.3 fL [facility] nRBC 0 0 - 0 /100 WBC [facility] Specimen Blood Performing Organization Address City/State/Zipcode Phone Number [facility] [address] [place] [address] [place] fluoro non-specific up to 1 hour (06/21/2020 8:50 AM CDT) Specimen Narrative Performed At Fluoroscopic unit utilized for a procedure performed i n the OR.No GE RIS interpretation was requested.Refer to the operativ e report for findings.Refer to PACS for patient radiation dose information. Procedure Note Interface, External Ris In - 06/21/2020 11:15 AM CDT Fluoroscopic unit utilized for a procedu re performed in the OR. No interpretation was requested. Refer to the operative r eport for findings. Refer to PACS for patient radiation dose information. Performing Organization Address City/[facility]/Zipcode Phone Number [employer] Prepare Leuko-Red RBC (06/20/2020 11:54 PM CDT) CROSSMATCH COMPATIBLE SAFETRACE TX Unit ABO B Pos SAFETRACE TX UNIT NUMBER [id number] SAFETRACE TX Status TX_TIMEINCHART SAFETRACE TX Blood Bank Product RED BLOOD CELLS SAFETRACE TX PRODUCT CODE [id number] SAFETRACE TX Specimen Other Performing Organization Address City/[facility] Phone Number SAFETRACE TX XR pelvis 1 or 2 views (06/20/2020 6:13 PM CDT) Specimen Narrative Performed At FINAL REPORT GE RIS Radiograph of the left shoulder, left el bow, and pelvis Reason for exam: left shoulder pain Comparison:No priors Discussion: There is anterior-inferior dislocation o f the left shoulder, which is an apparent Hill-Sachs deformity of the humeral head. No definite scapular fracture is identified. Moderat e AC joint DJD is noted. Three views of the left elbow demonstrat es no acute fracture, or dislocation. There is tkuq-ro-zhqdlfil o steoarthritis, as well as mild enthesopathy at the medial epicondy les. The lateral view is nonstandard, limiting evaluation; presen ce of elbow joint effusion cannot be ascertained. 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 No acute fracture, or dislocation is identified in the pelvis. Symphysis pubis appears congruent. Note the sacrum is mostly obs cured by stool and bowel gas. Visualized soft tissues are unremarkable . Impressions: Anterior inferior left shoulder dislocat ion. 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 Signed: Jennifer Rubio MD Report Verified Date/Time:06/21/2020 13:36:41 Reading Location: [facility] Radiology Reading Room Procedure Note Interface, External Ris In - 06/21/2020 1:38 PM CDT FINAL REPORT Radiograph of the left shoulder, left el bow, and pelvis Reason for exam: left shoulder pain Comparison: No priors Discussion: There is anterior-inferior dislocation o f the left shoulder, which is an apparent Hill-Sachs deformity of the humeral head. No definite scapular fracture is identified. Moderat e AC joint DJD is noted. Three views of the left elbow demonstrat es no acute fracture, or dislocation. There is pmci-jy-egdssilf o steoarthritis, as well as mild enthesopathy at the medial epicondy les. The lateral view is nonstandard, limiting evaluation; presen ce of elbow joint effusion cannot be ascertained. 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 No acute fracture, or dislocation is identified in the pelvis. Symphysis pubis appears congruent. Note the sacrum is mostly obs cured by stool and bowel gas. Visualized soft tissues are unremarkable . Impressions: Anterior inferior left shoulder dislocat ion. 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 Signed: Jennifer Rubio MD Report Verified Date/Time: 06/21/2020 1 3:36:41 Reading Location: [facility] Radiology Reading Room Performing Organization Address City/State/Zipcode Phone Number [facility] XR shoulder 1 view left (06/20/2020 5:26 PM CDT) Specimen Narrative Performed At FINAL REPORT [facility] Radiograph of the left shoulder, left el bow, and pelvis Reason for exam: left shoulder pain Comparison:No priors Discussion: There is anterior-inferior dislocation o f the left shoulder, which is an apparent Hill-Sachs deformity of the humeral head. No definite scapular fracture is identified. Moderat e AC joint DJD is noted. Three views of the left elbow demonstrat es no acute fracture, or dislocation. There is ogqt-eg-uqosehuv o steoarthritis, as well as mild enthesopathy at the medial epicondy les. The lateral view is nonstandard, limiting evaluation; presen ce of elbow joint effusion cannot be ascertained. 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 No acute fracture, or dislocation is identified in the pelvis. Symphysis pubis appears congruent. Note the sacrum is mostly obs cured by stool and bowel gas. Visualized soft tissues are unremarkable . Impressions: Anterior inferior left shoulder dislocat ion. 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 Signed: Jennifer Rubio MD Report Verified Date/Time:06/21/2020 13:36:41 Reading Location: [facility] Radiology Reading Room Procedure Note Interface, External Ris In - 06/21/2020 1:38 PM CDT FINAL REPORT Radiograph of the left shoulder, left el bow, and pelvis Reason for exam: left shoulder pain Comparison: No priors Discussion: There is anterior-inferior dislocation o f the left shoulder, which is an apparent Hill-Sachs deformity of the humeral head. No definite scapular fracture is identified. Moderat e AC joint DJD is noted. Three views of the left elbow demonstrat es no acute fracture, or dislocation. There is mxjp-be-ydygxlmk o steoarthritis, as well as mild enthesopathy at the medial epicondy les. The lateral view is nonstandard, limiting evaluation; presen ce of elbow joint effusion cannot be ascertained. 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 No acute fracture, or dislocation is identified in the pelvis. Symphysis pubis appears congruent. Note the sacrum is mostly obs cured by stool and bowel gas. Visualized soft tissues are unremarkable . Impressions: Anterior inferior left shoulder dislocat ion. 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 Signed: Jennifer Rubio MD Report Verified Date/Time: 06/21/2020 1 3:36:41 Reading Location: [facility] Radiology Reading Room Performing Organization Address City/State/Zipcode Phone Number GE RIS XR elbow 3 views min left (06/20/2020 5:26 PM CDT) Specimen Narrative Performed At FINAL REPORT [facility] Radiograph of the left shoulder, left el bow, and pelvis Reason for exam: left shoulder pain Comparison:No priors Discussion: There is anterior-inferior dislocation o f the left shoulder, which is an apparent Hill-Sachs deformity of the humeral head. No definite scapular fracture is identified. Moderat e AC joint DJD is noted. Three views of the left elbow demonstrat es no acute fracture, or dislocation. There is iaeo-fa-nridkewz o steoarthritis, as well as mild enthesopathy at the medial epicondy les. The lateral view is nonstandard, limiting evaluation; presen ce of elbow joint effusion cannot be ascertained. 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 No acute fracture, or dislocation is identified in the pelvis. Symphysis pubis appears congruent. Note the sacrum is mostly obs cured by stool and bowel gas. Visualized soft tissues are unremarkable . Impressions: Anterior inferior left shoulder dislocat ion. 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 Signed: Jennifer Rubio MD Report Verified Date/Time:06/21/2020 13:36:41 Reading Location: [facility] Radiology Reading Room Procedure Note Interface, External Ris In - 06/21/2020 1:38 PM CDT FINAL REPORT Radiograph of the left shoulder, left el bow, and pelvis Reason for exam: left shoulder pain Comparison: No priors Discussion: There is anterior-inferior dislocation o f the left shoulder, which is an apparent Hill-Sachs deformity of the humeral head. No definite scapular fracture is identified. Moderat e AC joint DJD is noted. Three views of the left elbow demonstrat es no acute fracture, or dislocation. There is vkao-jn-rhsctnmw o steoarthritis, as well as mild enthesopathy at the medial epicondy les. The lateral view is nonstandard, limiting evaluation; presen ce of elbow joint effusion cannot be ascertained. 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 No acute fracture, or dislocation is identified in the pelvis. Symphysis pubis appears congruent. Note the sacrum is mostly obs cured by stool and bowel gas. Visualized soft tissues are unremarkable . Impressions: Anterior inferior left shoulder dislocat ion. 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 Signed: Jennifer Rubio MD Report Verified Date/Time: 06/21/2020 1 3:36:41 Reading Location: [facility] Radiology Reading Room Performing Organization Address City/State/Zipcode Phone Number [facility] NM Myocard imaging multi pharm planar (06/20/2020 3:41 PM CDT) Specimen Narrative Performed At FINAL REPORT [facility] PROCEDURE: MYOCARDIAL PERFUSION PLANAR I MAGING (2-Day Stress/Rest) CPT CODE: 95239 INDICATION: evaluate for presence of CAD , preoperative risk stratification for orthopedic surgery CARDIOVASCULAR PROFILE: CAD History: None Risk Factors: Diabetes, hypertension, ob esity BMI: 45.5 Medications: Levothyroxine, losartan, me toprolol STRESS PROTOCOL: Pharmacologic stress was achieved with a 10-second intravenous infusion of regadenoson 0.4 mg. The radi opharmaceutical was administered 30 seconds after the start of the regadenoson infusion. IMAGING PROTOCOL: 32.8 mCi of Tc-99m sestamibi was injecte d intravenously at peak stress, and gated planar images were obt ained. Then on a separate day, 32.9 mCi of Tc-99m sestamibi was in jected intravenously at rest, and gated planar images were obtained. P lanar images were obtained due to body habitus. Image quality is ge nerally poor, impaired due to soft tissue attenuation secondary to bod y habitus, as well as limited mobility due to recent fracture. REST FINDINGS: HR: 95/min BP: 128/67 mmHg Prelim. EKG: Normal sinus rhythm. Perfusion: Grossly normal in the anterio r LV, but poor image quality. Wall Motion: Normal STRESS FINDINGS: HR: 107/min (68% of MPHR) BP: 118/62 mmHg Prelim. EKG: Marked ST depressions. Symptoms: Flushing (treatment not requir ed). Perfusion: There is a mild severity apic al perfusion defect in the LV myocardium. IMPRESSION: 1. Abnormal study. 2. Abnormal myocardial perfusion. There is a small size, mild severity, reversible perfusion abnormali ty in the cardiac apex of the LV. While there is no severe anterior wa ll perfusion defect with stress, other patricia can not be adequatel y assessed. 3. Normal resting LVEF. 4.Marked soft tissue attenuation is note d on all images. 5.There is no prior study for comparison . Signed: Sarah Garcia MD Report Verified Date/Time:06/20/2020 17:07:36 Reading Location: [address] Reading Room Procedure Note Interface, External Ris In - 06/20/2020 5:09 PM CDT FINAL REPORT PROCEDURE: MYOCARDIAL PERFUSION PLANAR I MAGING (2-Day Stress/Rest) CPT CODE: 32124 INDICATION: evaluate for presence of CAD , preoperative risk stratification for orthopedic surgery CARDIOVASCULAR PROFILE: CAD History: None Risk Factors: Diabetes, hypertension, ob esity BMI: 45.5 Medications: Levothyroxine, losartan, me toprolol STRESS PROTOCOL: Pharmacologic stress was achieved with a 10-second intravenous infusion of regadenoson 0.4 mg. The radi opharmaceutical was administered 30 seconds after the start of the regadenoson infusion. IMAGING PROTOCOL: 32.8 mCi of Tc-99m sestamibi was injecte d intravenously at peak stress, and gated planar images were obt ained. Then on a separate day, 32.9 mCi of Tc-99m sestamibi was in jected intravenously at rest, and gated planar images were obtained. P lanar images were obtained due to body habitus. Image quality is ge nerally poor, impaired due to soft tissue attenuation secondary to bod y habitus, as well as limited mobility due to recent fracture. REST FINDINGS: HR: 95/min BP: 128/67 mmHg Prelim. EKG: Normal sinus rhythm. Perfusion: Grossly normal in the anterio r LV, but poor image quality. Wall Motion: Normal STRESS FINDINGS: HR: 107/min (68% of MPHR) BP: 118/62 mmHg Prelim. EKG: Marked ST depressions. Symptoms: Flushing (treatment not requir ed). Perfusion: There is a mild severity apic al perfusion defect in the LV myocardium. IMPRESSION: 1. Abnormal study. 2. Abnormal myocardial perfusion. There is a small size, mild severity, reversible perfusion abnormali ty in the cardiac apex of the LV. While there is no severe anterior wa ll perfusion defect with stress, other patricia can not be adequatel y assessed. 3. Normal resting LVEF. 4.Marked soft tissue attenuation is note d on all images. 5.There is no prior study for comparison . Signed: Sarah Garcia MD Report Verified Date/Time: 06/20/2020 1 7:07:36 Reading Location: [address] Med Reading Room Performing Organization Address City/State/Zipcode Phone Number GE RIS Vitamin B12 and Folate (06/20/2020 4:32 AM CDT) Vitamin B12 467 213 - 816 pg/mL [facility] Folate 16.70 >=7.00 ng/mL [facility] Specimen Blood Narrative Performed At Contract Attorney ID - ELIASI [facility] Performing Organization Address City/State/Zipcode Phone Number [facility] [address] [place] [address] CENTER Calcium, Ionized (06/20/2020 4:32 AM CDT)Only the most recent of3 resultswithin the time period is included. Calcium, Ion 1.15 1.12 - 1.27 mmol/L [facility] pH, Blood 7.42 [facility] Specimen Blood Performing Organization Address City/[facility]/Zipcode Phone Number [facility] [address] [place] [address] CENTER CBC with platelet count + automated diff (06/20/2020 4:32 AM CDT)Only the most recent of4 resultswithin the time period is included. WBC 10.8 (H) 3.5 - 10.5 K/L [facility] RBC 2.91 (L) 3.93 - 5.22 M/L [facility] Hemoglobin 9.0 (L) 11.2 - 15.7 GM/DL [facility] Hematocrit 29.3 (L) 34.1 - 44.9 % [facility] MCV 100.7 (H) 79.4 - 94.8 fL [facility] MCH 30.9 25.6 - 32.2 pg [facility] MCHC 30.7 (L) 32.2 - 35.5 GM/DL [facility] RDW 16.7 (H) 11.7 - 14.4 % [facility] Platelets 184 150 - 450 K/CU MM [facility] MPV 9.7 9.4 - 12.3 fL [facility] CENTER nRBC 0 0 - 0 /100 WBC [facility] % Neutros 77 % [facility] [place] % Lymphs 10 % [facility] % Monos 8 % [facility] % Eos 4 % [facility] % Baso 1 % [facility] # Neutros 8.27 (H) 1.56 - 6.13 K/L [facility] # Lymphs 1.08 (L) 1.18 - 3.74 K/L [facility] # Monos 0.81 (H) 0.24 - 0.36 K/L [facility] # Eos 0.46 (H) 0.04 - 0.36 K/L [facility] # Baso 0.05 0.01 - 0.08 K/L [facility] Immature 1 0 - 1 % [facility] Granulocytes-Relative MEDICAL CE NTER Specimen Blood Performing Organization Address City/[facility]/Zipcode Phone Number [address] [address] CENTER Phosphorus (06/20/2020 4:32 AM CDT)Only the most recent of3 resultswithin the time period is included. Phosphorus 2.4 2.3 - 4.7 mg/dL [facility] Specimen Blood Narrative Performed At Contract Attorney ID - EDASI [facility] Performing Organization Address City/State/Zipcode Phone Number [address] [address] CENTER Magnesium (06/20/2020 4:32 AM CDT)Only the most recent of3 resultswithin the time period is included. Magnesium 1.7 1.6 - 2.6 mg/dL [facility] Specimen Blood Narrative Performed At Contract Attorney ID - BRENDEN MAYES [facility] Performing Organization Address City/State/Zipcode Phone Number [facility] [address] [place] [address] CENTER Comprehensive metabolic panel (06/20/2020 4:32 AM CDT)Only the most recent of4 resultswithin the time period is included. Protein, Total 6.9 6.0 - 8.3 gm/dL [facility] ER Albumin 3.4 (L) 3.5 - 5.0 g/dL [facility] ER Alkaline Phosphatase 49 40 - 150 U/L [facility] Total Bilirubin 1.1 0.2 - 1.2 mg/dL [facility] Sodium 142 136 - 145 meq/L [facility] Potassium 4.4 3.5 - 5.1 meq/L [facility] Chloride 101 98 - 107 meq/L [facility] CO2 33 (H) 22 - 29 meq/L [facility] BUN 28 (H) 7 - 21 mg/dL [facility] Creatinine 0.81 0.57 - 1.25 mg/dL [facility] ER Glucose 131 (H) 70 - 105 mg/dL [facility] ER Calcium 9.1 8.4 - 10.2 mg/dL [facility] AST 15 5 - 34 U/L [facility] ALT 10 6 - 55 U/L [facility] ER EGFR 71Comment: ESTIMATED GFR mL/min/1.73 sq m [facility] IS NOT ACCURATE [facility] CREATININE CLEARANCE IN PREDICTING GLOMERULAR FILTRATION RATE. ESTIMATED GFR IS NOT APPLICABLE FOR DIALYSIS PATIENTS. Specimen Blood Narrative Performed At Contract Attorney ID - BRENDEN [facility] Performing Organization Address City/State/Zipcode Phone Number [facility] [address] [place] [address] CENTER Transfuse Leuko-Red RBC (06/19/2020 8:26 PM CDT)Only the most recent of2 resultswithin the time period is included.Treadmill tolerance(Non-Nuclear Treadmill) (06/19/2020 9:45 AM CDT) Specimen Narrative Performed At Protocol Name SAMANTA ANT [facility] MUSE Time In Exercise Phase 00:01:00 Max. Systolic BP 118 mmHg Max Diastolic BP 62 mmHg Max Heart Rate 107 BPM Max Predicted Heart Rate 157 BPM Reason For Termination Predetermined end point Reason for Test Pre Op Cardiac Clearance -ORIF Target HR Formula (220 - Age)*100% Arrhythmias none Resting ECG Normal sinus rhythm ST Changes Marked ST Depression T Wave inversion I, aVL Overall Impression Indeterminate due to pharmacological stress Chest Pain none HR Response To Exercise BP Response To Exercise levoothyroxine,losartan,metoprolol Confirmed by fellow Charles Montero ([id number]) on 06/19/2020 2:52:27 PM Confirmed by Real Magallon ([id number]) on 06/21/2020 2:44:06 PM Procedure Note Interface, External Ris In - 06/21/2020 2:44 PM CDT Protocol Name REGKEVINOSRENO Time In Exercise Phase 00:01:00 Max. Systolic BP 118 mmHg Max Diastolic BP 62 mmHg Max Heart Rate 107 BPM Max Predicted Heart Rate 157 BPM Reason For Termination Predetermined end point Reason for Test Pre Op Cardiac Clearance -ORIF Target HR Formula (220 - Age)*100% Arrhythmias none Resting ECG Normal sinus rhythm ST Changes Marked ST Depression T Wave inversion I, aVL Overall Impression Indeterminate due to pharmacological stress Chest Pain none HR Response To Exercise BP Response To Exercise levoothyroxine,losartan,metoprolol Confirmed by fellow Charles Montero ([id number]) on 06/19/2020 2:52:27 PM Confirmed by Real Magallon ([id number]) on 06/21 2:44:06 PM Performing Organization Address City/State/Zipcode Phone Number [employer] SARS-CoV2/RT-PCR (Asymptomatic ONLY) (06/19/2020 5:13 AM CDT) SARS-COV2/RT-PCR Negative Not Detected, Negative, [facility] See external report for MEDICAL CENTER linked test SARS-COV-2 PERFORMING LAB [facility] NICK [facility] Specimen Other Narrative Performed At Negative result for this test determines that [facility] SARS-CoV-2 RNA was not present in the specimen above the Limit of Detection (LOD).However, Negative results do not preclude SARS-CoV-2 infection and should not be used as the sole basis for treatment or patient management decisions. Negative results must be combined with clinical observations, patient history, and epidemiological information. A false negative result may occur if a specimen is improperly collected, transported or handled.A false negative result should be considered if patient's recent exposures or clinical presentation indicate that COVID-19 (SARS-CoV-2) is likely and diagnostic tests for other causes of illness are negative.Re-testing should be considered in cases of suspected false negatives. The limit of detection for this assay is 800 copies/mL. This SARS CoV-2 test is a real-time RT-PCR test intended for the qualitative detection of nucleic acid from SARS-CoV-2 in a nasopharyngeal swab specimen collected from individuals suspected of COVID-19 by their healthcare provider. This test has not been Food and Drug Administration (FDA) cleared or approved.This is a modified version of an approved Emergency Use Authorization (EUA) and is in the process of review by the FDA. Once authorized by the FDA, the issued EUA will be effective until the declaration that circumstances exist justifying the authorization of the emergency use of in vitro diagnostic tests for detection and/or diagnosis of COVID-19 is terminated under Section 564(b)(2) of the Act or the EUA is revoked under Section 564(g) of the Act. Fact Sheet for Healthcare Providers: https://www.[employer].com/sites/default/files/pro duct/documents/Fact_Sheet_HC_Providers_Lyra_SA RS-CoV-2.pdf Fact Sheet for Healthcare Patients: https://www.[employer].com/sites/default/files/pro duct/documents/Fact_Sheet_Patients_Lyra_SARS-C oV-2.pdf Performing Laboratory: [address] [place] [address] Performing Organization Address City/[facility]/Zipcode Phone Number [address] [address] CENTER ABORH, manual (06/18/2020 10:08 PM CDT) Rh Factor POS [facility] ABO Grouping B [facility] Specimen Blood Performing Organization Address [facility] Cent[facility] Phone Number [address] [address] Type and screen, automated (06/18/2020 5:02 PM CDT) ABO/RH AUTOMATED (BEAKER) B POSITIVE [facility] Ab Scrn NEGATIVE [facility] Specimen Blood Performing Organization Address [facility] Phone Number [address] [address] Troponin I (06/18/2020 9:31 AM CDT)Only the most recent of2 resultswithin the time period is included. Troponin I 0.02 0.00 - 0.03 ng/mL [facility] Specimen Blood Narrative Performed At Troponin I (TnI) levels must be interpreted [facility] in the context of the presenting symptoms and the clinical findings. Elevated TnI levels indicate myocardial damage, but are not specific for ischemic heart disease. Elevated TnI levels are seen in patients with other cardiac conditions (including myocarditis and congestive heart failure), and slight TnI elevations occur in patients with other conditions, including sepsis, renal failure, acidosis, acute neurological disease, and persistent tachyarrhythmia. Contract Attorney ID - ROSIANG Performing Organization Address [facility]/Zipcode Phone Number [address] [address] CENTER TSH/Free T4 If Indicated (06/18/2020 5:44 AM CDT) TSH 76.986 (H) 0.350 - 4.940 uIU/mL [facility] Specimen Blood Narrative Performed At Contract Attorney ID - BRENDEN [facility] Performing Organization Address City/State/Zipcode Phone Number [address] [address] CENTER T4, free (06/18/2020 5:44 AM CDT) Free T4 <0.40 (L) 0.70 - 1.48 ng/dL [facility] Specimen Blood Narrative Performed At Contract Attorney ID - GWYN [facility] Performing Organization Address City/[facility]ode Phone Number [address] [address] CENTER B-type Natriuretic Factor (BNP) (06/18/2020 5:44 AM CDT) BNP 35 0 - 100 pg/mL [facility] Specimen Blood Narrative Performed At Contract Attorney ID - BRENDEN [facility] Performing Organization Address City/[facility]ode Phone Number [address] [address] CENTER Hemoglobin A1c (06/18/2020 5:44 AM CDT) Hemoglobin A1C 5.4 4.3 - 6.1 % [facility] Specimen Blood Performing Organization Address City/[facility]/Zipcode Phone Number [address] [address] CENTER 2D Echo W/Doppler(CW/PW/Color) (06/17/2020 10:02 PM CDT) Ejection Fraction [facility] ECHO HEAR TLAB [facility] Specimen Narrative Performed At Transthoracic Echocardiography Report (T TE) [facility] ECHO HEARTLAB MKCKESSON CPA Demographics Patient Name Marek WADE of Study 06/17/2020 FIORELLA [id number] Gender Female Visit Number [id number] Unknown [id number] Room Number 1523 Number Date of Birth1955Referring Physician MARINA ZEE Age64 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 Clinical History HGB 8.5 HCT 27.7 % HTN, DM, OBESITY, COPD, HX OF COVID, FEMUR FRACTURE, VTE Height: 69 inches Weight: 139.71 kg (308 lbs) BSA: 2.48 m^2 BMI: 45.48 kg/m^2 HR: 85 bpm BP: 138/73 mmHg Summary The left ventricle is chamber size (by PSLAX dimension) is normal (female - LVIDd 3.8-5.2cm) . Global LV systolic function normal . Estimated LVEF by qualitative assessment is normal (55 -60%) . Estimated peak systolic PA pressure is 35-40 mmHg . No evidence of pericardial effusion. Signature Findings Technical Quality: Technically difficult exam. Left Ventricle The left ventricle is chamber size (by PSLAX di mension) is normal (female - LVIDd 3.8-5 .2cm) . No rmal LV wall thickness. Global LV systol ic fu nction normal . Estimated LVEF by qualit ative as sessment is normal (55-60%) . Left AtriumLA size is normal . Right VentricleNormal right ventricle structure and function. Right Atrium Normal right atrium. Aortic Valve Mild AoV cusp thickening. Mitral Valve Normal MV structure. Tricuspid ValveMild tricuspid regurgitation. Es timated peak systolic PA pressure is 35- 40 mmHg . Pulmonic Valve PV is not well visualized. AortaAortic root size (SInus of Valsalva diameter) i s no rmal . PericardiumNo evidence of pericardial effusion. IVC/SVC/PA/PV/PleuralThe estimated RA pressure by IVC dynamics 0-5mmHg . Chambers/Structures Left Atrium LA Dimension: 3.62 cm LA Volume: 35.66 ml LA Vol. Index: 14 ml/m^2 Left Ventricle LVIDd: 4.28 cm LVEDV:95.33 ml LV Septum Diastolic: 0.98 cm LV PW Diastolic: 0.91 cm LVEDV Jones's:72.98 mlLV Length: 7.71 cm LVESV Jones's:32.71 ml LVEF Jones's: 55.2 %L VEDVI: 29 ml/m^2 LVESVI: 13 ml/m^2 LVOT Diameter: 2.04 cm Aorta Ao Root S of Eloisa.: 3.49 cm Doppler/Quantitative Measurements Aortic Valve Peak Velocity: 1.56 m/sMean Velocity: 1.07 m/s Peak Gradient: 9.73 mmHg Mean Gradient: 5.22 mmHg AV Area (continuity): 3.15 cm^2 AV VTI: 33.99 cm AV DVI: 0.96 LVOT Peak Velocity: 1.51 m/s Peak Gradient: 9.09 mmHg Mean Velocity: 0.95 m/s Mean Gradient: 4.42 mmHg LVOT Diameter: 2.04 cmLVOT VTI: 32.74 cm LVOT Area: 3.27 cm^2LVOT SV:106.96 ml LVOT CO: 9.09 l/min LVOT CI: 3.67 l/min/m^2 Tricuspid Valve TR Velocity: 2.89 m/s TR Gradient: 33.3 mmHg Procedure Note Interface, External Ris In - 06/19/2020 12:42 PM CDT Transthoracic Echocardiography Report (TTE) Demographics Patient Name ROSIO WADE Date o Study 06/17/2020 FIORELLA Gender Female Visit Number [id number] Race Unknown [place] [address] [place] [address] Number Date of 1955 Referr ing Physician MARINA ZEE Age 64 year(s) Sonogr suresh Reyna Dialysis Biomed Technician Viktor Prater Interp reting Claudette Damian MD Procedure Type of Study TTE procedure:2DECHO W DOPPLE R(CW/PW/COLOR) (Routine) Indications:Shortness of breath and pre surgical clearance. Clinical History HGB 8.5 HCT 27.7 % HTN, DM, OBESITY, COPD, HX OF COVID, FEM UR FRACTURE, VTE Height: 69 inches Weight: 139.71 kg (308 lbs) BSA: 2.48 m^2 BMI: 45.48 kg/m^2 HR: 85 bpm BP: 138/73 mmHg Summary The left ventricle is chamber size (by PSLAX dimension) is normal (female - LVIDd 3.8-5.2cm) . Global LV systolic function normal . Estimated LVEF by qualitative assessment is normal (55 -60%) . Estimated peak systolic PA pressure is 35-40 mmHg . No evidence of pericardial effusion. Signature Findings Technical Quality: Technically difficult exam. Left Ventricle The left ventric le is chamber size (by PSLAX dimension) is no rmal (female - LVIDd 3.8-5.2cm) . Normal LV wall t hickness. Global LV systolic function normal . Estimated LVEF by qualitative assessment is no rmal (55-60%) . Left Atrium LA size is mariam l . Right Ventricle Normal right wally tricle structure and function. Right Atrium Normal right atr ium. Aortic Valve Mild AoV cusp th ickening. Mitral Valve Normal MV struct ure. Tricuspid Valve Mild tricuspid r egurgitation. Estimated peak s ystolic PA pressure is 35-40 mmHg . Pulmonic Valve PV is not well v isualized. Aorta Aortic root size (SInus of Valsalva diameter) is normal . Pericardium No evidence of p ericardial effusion. IVC/SVC/PA/PV/Pleural The estimated RA pressure by IVC dynamics 0-5mmHg . Chambers/Structures Left Atrium LA Dimension: 3.62 cm LA Volume: 35.66 ml LA Vol. Index: 14 ml/m^2 Left Ventricle LVIDd: 4.28 cm LVEDV:95.33 ml LV Septum Diastolic: 0.98 cm LV PW Diastolic: 0.91 cm LVEDV Jones's:72.98 ml LV Length: 7.71 cm LVESV Jones's:32.71 ml LVEF Jones's: 55.2 % LVEDVI: 29 ml/m^2 LVESVI: 13 ml/m^2 LVOT Diameter: 2.04 cm Aorta Ao Root S of Eloisa.: 3.49 cm Doppler/Quantitative Measurements Aortic Valve Peak Velocity: 1.56 m/s Mean Velocity: 1.07 m/s Peak Gradient: 9.73 mmHg Mean Gradient: 5.22 mmHg AV Area (continuity): 3.15 cm^2 AV VTI: 33.99 cm AV DVI: 0.96 LVOT Peak Velocity: 1.51 m/s Pea k Gradient: 9.09 mmHg Mean Velocity: 0.95 m/s Jill n Gradient: 4.42 mmHg LVOT Diameter: 2.04 cm LVO T VTI: 32.74 cm LVOT Area: 3.27 cm^2 LVO T SV:106.96 ml LVOT CO: 9.09 l/min LVO T CI: 3.67 l/min/m^2 Tricuspid Valve TR Velocity: 2.89 m/s TR Gradient: 33.3 mmHg Performing Organization Address City/State/Zipcode Phone Number [facility] ECHO HEARTLAB [facility] ECG 12 lead (06/17/2020 8:01 PM CDT) Specimen Narrative Performed At Ventricular Rate 88 BPM [employer] Atrial Rate 88 BPM P-R Interval 146 ms QRS Duration 88 ms Q-T Interval 388 ms QTC Calculation(Bazett) 469 ms P [place] 48 degrees R [place] 8 degrees T [place] 104 degrees Normal sinus rhythm Minimal voltage criteria for LVH, may be normal variant Abnormal QRS-T angle, consider primary T wave abnormality Abnormal ECG No previous ECGs available Confirmed by MD PURCELL JOSEPH P ([id number]) on 0 6:41:45 AM Procedure Note Interface, External Ris In - 06/19/2020 6:41 AM CDT Ventricular Rate 88 BPM Atrial Rate 88 BPM P-R Interval 146 ms QRS Duration 88 ms Q-T Interval 388 ms QTC Calculation(Bazett) 469 ms P [place] 48 degrees R [place] 8 degrees T [place] 104 degrees Normal sinus rhythm Minimal voltage criteria for LVH, may be normal variant Abnormal QRS-T angle, consider primary T wave abnormality Abnormal ECG No previous ECGs available Confirmed by MD PURCELL JOSEPH P ([id number]) on 06/19/2020 6:41:45 AM Performing Organization Address City/State/Zipcoca Phone Number GE MUSE after 06/21/2019 Insurance Payer Benefit Plan / Group Subscriber ID Type Phone A ddress [employer] MEDICARE MGD WELLCARE MAPS xxxxxxxx CARE CIGNA - MGD CARE CIGNA HMO/POS/OPEN xxxxxxxxx xx HMO/POS ACCESS ([place]) [place] [address] Advance Directives For more information, please contact:[address] [phone] Code Status Date Activated Date Inactivated Comments Full Code 06/17/2020 6:22 PM This code status was determined by: Patient Full Code 10/30/2016 9:08 PM 11/05/2016 3:11 PM This code status was determined by: Patient
--- OUTSIDE RECORDS SUMMARY | 2020-06-21 22:27 | XMS REPORT | Summary of Care ---
:1955 Author Organization [facility] Address [address] [place] [address] Care Team Providers Name Role Phone MD Ajit Primary Care Provider MD Ajit Unavailable Reason for Visit Reason Comments Rx Concern/Question Encounter Details Date Type Department Care Team Description 04/07/2020 Telephone [facility] Family Shahriar Fong MD Rx Concern/Question Medicine - [address] jp [place], [place] [phone] Allergies No Known Allergiesdocumented as of this encounter (statuses as of 04/10/2020) Medications Medication Sig Dispensed Refills Start Date [...] as of this encounter (statuses as of 04/10/2020) Active Problems Problem Noted Date Staghorn calculus 11/16/2018 Kidney stone 10/13/2018 Overview: Added automatically from request for manda blanche [id number] Chronic gout without tophus, unspecified cause, unspec ified site 10/01/2018 Vaginal bleeding 05/05/2018 Postmenopausal vaginal bleeding 05/05/2018 Recurrent joint pain 05/05/2018 Dehydration 01/18/2018 Fistula 12/31/2017 Overview: Added automatically from request for manda mancia [id number] Hypotension 12/25/2017 Morbid obesity with body mass [...] 06/22/2015 Pyelonephritis 06/25/2007 Overview: ICD10 Diagnosis Term Windows Systems Admin Utility Type 2 diabetes mellitus with stage 3 chronic kidney d isease, without 06/25/2007 long-term current use of insulin Essential hypertension, benign 06/25/2007 Hypothyroidism 06/25/2007 Overview: ICD10 Diagnosis Term Windows Systems Admin Utility documented as of this encounter (statuses as of 04/10/2020) Immunizations Name Administration Dates Next Due Influenza [...] of this encounter Implants Implanted Type Area Title Attorney Device Shelf Expiration Model / Identifier Date Serial / Lot Ivc Filter [place] Femoral Bard #[id number] - S0 FILTER Groin Bar d 10/15/2020 [id number] / Implanted: Qty: 1 on 01/20/2018 by Karl Damon MD at [facility] 0 / [id number] documented as of this encounter Results Not on filedocumented in this encounter Insurance Payer Benefit Plan / Subscriber ID Effective Dates Phone Addre ss Type Group CIGNA CIGNA II [id number] 2003-Presen HM O/PPO/POS t [place] WE[place]ARE [place] [id number] 2019-Presen Medicare Adv PLUS PLUS t HMO CLASSIC/VALUE documented as of this encounter
--- OUTSIDE RECORDS SUMMARY | 2020-06-21 22:28 | XMS REPORT | Summary of Care ---
:[address] [facility] Address [address] [place] [address] Care Team Providers Name Role Phone MD Ajit Primary Care Provider MD Ajit Unavailable Reason for Visit Reason Comments Refill Request Encounter Details Date Type Department Care Team Description 04/13/2020 Refill [facility] Family Medicine Arthur Stiles MD Refill Request - [address] [place] [address] [place] [address] [phone] Allergies No Known Allergiesdocumented as of this encounter (statuses as of 04/13/2020) Medications Medication Sig Dispensed Refills Start End [...] Urinary tract infection without hematuria, site unspecified valsartan-hydrochloroth Take 1 tablet 90 tablet 0 [...] BY MOUTH EVERY 20 (pulmonary DAY thromboembolism) ETODOLAC 400 mg TAKE 1 TABLET 60 tablet 2 02/14/20 Active tabletIndications: BY MOUTH TWICE 20 Chronic low back pain, A DAY unspecified back pain laterality, unspecified whether sciatica present HYDROcodone-acetaminoph Take 1 tablet 150 tablet 0 03/21/20 Active en 10-325 mg by mouth every 20 tabletIndications: 4 (four) hours chronic pain as needed for Pain (scale 4-6) or Pain (scale 7-10). 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 documented as of this encounter (statuses as of 04/13/2020) Active Problems Problem Noted Date Staghorn calculus 11/16/2018 Kidney stone 10/13/2018 Overview: Added automatically from request for manda mancia [id number] Chronic gout without tophus, unspecified cause, unspec ified site 10/01/2018 Vaginal bleeding 05/05/2018 Postmenopausal vaginal bleeding 05/05/2018 Recurrent joint pain 05/05/2018 Dehydration 01/18/2018 Fistula 12/31/2017 Overview: Added automatically from request for manda mancia [id number] Hypotension 12/25/2017 Morbid obesity with body mass [...] 06/22/2015 Pyelonephritis 06/25/2007 Overview: ICD10 Diagnosis Term Environmental Services Associate Utility Type 2 diabetes mellitus with stage 3 chronic kidney d isease, without 06/25/2007 long-term current use of insulin Essential hypertension, benign 06/25/2007 Hypothyroidism 06/25/2007 Overview: ICD10 Diagnosis Term Environmental Services Associate Utility documented as of this encounter (statuses as of 04/13/2020) Immunizations Name Administration Dates Next Due Influenza [...] of this encounter Implants Implanted Type Area Polisher Sand Device Shelf Expiration Model / Identifier Date Serial / Lot Ivc Filter Janice Femoral Bard #[id number] - S0 FILTER Groin Bar d 10/15/2020 [id number] / Implanted: Qty: 1 on 01/20/2018 by Karl Damon MD at [facility] 0 / [id number] documented as of this encounter Results Not on filedocumented in this encounter Visit Diagnoses Diagnosis 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
--- OUTSIDE RECORDS SUMMARY | 2020-06-21 22:28 | XMS REPORT | Summary of Care ---
:1955 Author Organization [facility] Address [address] [place] [address] Care Team Providers Name Role Phone MD Ajit Primary Care Provider MD Ajit Unavailable Reason for Visit Reason Comments Refill Request Encounter Details Date Type Department Care Team Description 04/20/2020 Refill [facility] Family Medicine Arthur Stiles MD Refill Request - [address] [place] [address] [place] [address] [phone] Allergies No Known Allergiesdocumented as of this encounter (statuses as of 04/20/2020) Medications Medication Sig Dispensed Refills Start End [...] back pain 6 HOURS NEEDED FOR PAIN METFORMIN 500 mg TAKE 1 TABLET 180 [...] IN THE acquired atrophy of MORNING thyroid ALLOPURINOL 100 mg TAKE 1 TABLET 90 tablet 0 04/20/20 Active tabletIndications: BY MOUTH EVERY 20 Chronic gout without DAY tophus, unspecified cause, unspecified site ALLOPURINOL 100 mg TAKE 1 TABLET 90 tablet 0 01/26/20 Discontinued tabletIndications: BY MOUTH EVERY 20 020 Chronic gout without DAY tophus, unspecified cause, unspecified site documented as of this encounter (statuses as of 04/20/2020) Active Problems Problem Noted Date Staghorn calculus 11/16/2018 Kidney stone 10/13/2018 Overview: Added automatically from request for manda mancia [id number] Chronic gout without tophus, unspecified cause, unspec ified site 10/01/2018 Vaginal bleeding 05/05/2018 Postmenopausal vaginal bleeding 05/05/2018 Recurrent joint pain 05/05/2018 Dehydration 01/18/2018 Fistula 12/31/2017 Overview: Added automatically from request for manda mancia [id number] Hypotension 12/25/2017 Morbid obesity with body mass [...] 06/22/2015 Pyelonephritis 06/25/2007 Overview: ICD10 Diagnosis Term Meat Seafood Associate Utility Type 2 diabetes mellitus with stage 3 chronic kidney d isease, without 06/25/2007 long-term current use of insulin Essential hypertension, benign 06/25/2007 Hypothyroidism 06/25/2007 Overview: ICD10 Diagnosis Term Meat Seafood Associate Utility documented as of this encounter (statuses as of 04/20/2020) Immunizations Name Administration Dates Next Due Influenza [...] Assigned at Date Recorded Not on file documented as of this encounter Last Filed Vital Signs Not on filedocumented in this encounter Plan of Treatment Health Maintenance Due Date Last Done Comments PNEUMOCOCCAL 0-64 YEARS 1961 COMBINED SERIES (1 of 1 - PPSV23) EYE EXAM 1966 FOOT EXAM 1974 COLON CANCER SCREENING 2006 ANNUAL FIT/FOBT COLON CANCER SCREENING FIT 2006 DNA EVERY 3 YEARS COLON CANCER SCREENING 2006 SIGMOIDOSCOPY EVERY 5 YEARS Zoster Recombinant Vaccine 2006 (SHINGRIX) (1 of [...] (MAMMOGRAM) 1996 (Refu sed) COLONOSCOPY 12/03/2027 12/02/2017 Colorectal Cancer Screening 12/03/2027 DTaP,Tdap,and Td Vaccines 10/21/2028 10/21/2018 (2 - Td) HEPATITIS C (HCV) SCREEN Completed 01/20/2018, 07/06/2015 documented as of this encounter Implants Implanted Type Area Glass Etcher Device Shelf Expiration Model / Identifier Date Serial / Lot Ivc Filter Janice Femoral [facility] #[id number] - S0 FILTER Groin Bar d 10/15/2020 [id number] / Implanted: Qty: 1 on 01/20/2018 by Karl Damon MD at [facility] 0 / [id number] documented as of this encounter Results Not on filedocumented in this encounter Visit Diagnoses Diagnosis Chronic gout without tophus, unspecified cause, unspecified site documented in this encounter Insurance Payer Benefit Plan / Subscriber ID Effective Dates Phone Addre ss Type Group CIGNA CIGNA II [id number] 2003-Presen O/PPO/POS t [place] [place] WE[place]ARE [place] [id number] 2019-Presen Medicare Adv PLUS PLUS t HMO CLASSIC/VALUE documented as of this encounter
--- OUTSIDE RECORDS SUMMARY | 2020-06-21 22:29 | XMS REPORT | Summary of Care ---
:1955 Author Organization [facility] Address [address] [place] [address] Care Team Providers Name Role Phone MD Ajit Primary Care Provider MD Ajit Unavailable Reason for Visit Reason Comments Refill Request Encounter Details Date Type Department Care Team Description 04/17/2020 Refill [facility] Arthur Stiles MD Refill Request - [address] [place] [place] [address] [place] [address] [phone] Allergies No Known Allergiesdocumented as of this [...] MOUTH EVERY 19 tabletIndications: DAY Kidney stone Compressor, For DIRECTED 4 1 Each 0 [...] IN THE acquired atrophy of MORNING thyroid FUROSEMIDE 20 mg TAKE 1 TABLET 30 tablet 0 04/20/20 Active tabletIndications: BY MOUTH EVERY 20 Essential hypertension, DAY benign FUROSEMIDE 20 mg TAKE 1 TABLET 30 tablet 0 08/10/20 Discontinued tabletIndications: BY MOUTH EVERY 19 020 Essential hypertension, DAY benign documented as of this encounter (statuses as of 04/20/2020) Active Problems Problem Noted Date Staghorn calculus 11/16/2018 Kidney stone 10/13/2018 Overview: Added automatically from request for manda mancia [id number] Chronic gout without tophus, unspecified cause, unspec ified site 10/01/2018 Vaginal bleeding 05/05/2018 Postmenopausal vaginal bleeding 05/05/2018 Recurrent joint pain 05/05/2018 Dehydration 01/18/2018 Fistula 12/31/2017 Overview: Added automatically from request for manda mancia [id number] Hypotension 12/25/2017 Morbid obesity with body mass [...] 06/25/2007 Overview: ICD10 Diagnosis Term Director Of Strategy & Mobile Utility Type 2 diabetes mellitus with stage 3 chronic kidney d isease, without 06/25/2007 long-term current use of insulin Essential hypertension, benign 06/25/2007 Hypothyroidism 06/25/2007 Overview: ICD10 Diagnosis Term Director Of Strategy & Mobile Utility documented as of this encounter (statuses [...] of this encounter Implants Implanted Type Area Mothers Helper Device Shelf Expiration Model / Identifier Date Serial / Lot Ivc Filter [place] Femoral [employer] [place] #[id number] - S0 FILTER Groin Bar d 10/15/2020 [id number] / Implanted: Qty: 1 on 01/20/2018 by Karl Damon MD at [facility] 0 / [id number] documented as of this encounter Results Not on filedocumented in this encounter Visit Diagnoses Diagnosis Essential hypertension, benign documented in this encounter Insurance Payer Benefit Plan / Subscriber ID Effective Dates Phone Addre ss Type Group CIGNA CIGNA II [id number] 2003-Presen HM O/PPO/POS t [place] [place] WE[place] [place] [id number] 2019-Presen Medicare Adv PLUS PLUS t HMO CLASSIC/VALUE documented as of this encounter
--- OUTSIDE RECORDS SUMMARY | 2020-06-21 22:29 | XMS REPORT | Summary of Care ---
:1955 Author Organization [facility] Address [address] [place] [address] Care Team Providers Name Role Phone MD Ajit Primary Care Provider MD Ajit Unavailable Reason for Visit Reason Comments Refill Request Encounter Details Date Type Department Care Team Description 04/24/2020 Refill [facility] Family Medicine Arthur Stiles MD Refill Request - [address] [place] [address] [place] [address] [phone] Allergies No Known Allergiesdocumented as of this encounter (statuses as of 04/25/2020) Medications Medication Sig Dispensed Refills Start End [...] Urinary tract infection without hematuria, site unspecified tiZANidine 4 mg TAKE 1 TABLET 30 [...] MOUTH EVERY 20 Essential hypertension, DAY benign ALLOPURINOL 100 mg TAKE 1 TABLET 90 tablet 0 04/20/20 Active tabletIndications: BY MOUTH EVERY 20 Chronic gout without DAY tophus, unspecified cause, unspecified site VALSARTAN-HYDROCHLOROTH TAKE 1 TABLET 90 tablet 0 04/25/20 Active IAZIDE 320-25 mg per BY MOUTH EVERY 20 tabletIndications: DAY Essential hypertension, benign valsartan-hydrochloroth Take 1 tablet 90 tablet 0 01/24/20 Discontinued iazide 320-25 mg per by mouth 20 020 tabletIndications: daily. Essential hypertension, benign documented as of this encounter (statuses as of 04/25/2020) Active Problems Problem Noted Date Staghorn calculus 11/16/2018 Kidney stone 10/13/2018 Overview: Added automatically from request for manda mancia [id number] Chronic gout without tophus, unspecified cause, unspec ified site 10/01/2018 Vaginal bleeding 05/05/2018 Postmenopausal vaginal bleeding 05/05/2018 Recurrent joint pain 05/05/2018 Dehydration 01/18/2018 Fistula 12/31/2017 Overview: Added automatically from request for manda mancia [id number] Hypotension 12/25/2017 Morbid obesity with body mass [...] 06/22/2015 Pyelonephritis 06/25/2007 Overview: ICD10 Diagnosis Term Artist Model Utility Type 2 diabetes mellitus with stage 3 chronic kidney d isease, without 06/25/2007 long-term current use of insulin Essential hypertension, benign 06/25/2007 Hypothyroidism 06/25/2007 Overview: ICD10 Diagnosis Term Artist Model Utility documented as of this encounter (statuses as of 04/25/2020) Immunizations Name Administration Dates Next Due Influenza [...] of this encounter Implants Implanted Type Area Convention Services Director Device Shelf Expiration Model / Identifier Date Serial / Lot Ivc Filter [place] Femoral [facility] #[id number] - S0 FILTER Groin Bar d 10/15/2020 [id number] / Implanted: Qty: 1 on 01/20/2018 by Karl Damon MD at [facility] 0 / [id number] documented as of this encounter Results Not on filedocumented in this encounter Visit Diagnoses Diagnosis Essential hypertension, benign documented in this encounter Insurance Payer Benefit Plan / Subscriber ID Effective Dates Phone Addre ss Type Group CIGNA CIGNA II [id number] [facility]/POS [facility] [place] WE[place] [place] [id number] 2019-Presen Medicare Adv PLUS PLUS t HMO CLASSIC/VALUE documented as of this encounter
--- OUTSIDE RECORDS SUMMARY | 2020-06-21 22:33 | XMS REPORT | Summary of Care ---
:1955 Author Organization [facility] Address [address] [place] [address] Care Team Providers Name Role Phone MD Ajit Primary Care Provider MD Ajit Unavailable Reason for Visit Reason Comments Refill Request Encounter Details Date Type Department Care Team Description 05/14/2020 Refill [facility] Family Medicine Arthur Stiles MD Refill Request - [address] [place] [address] [place] [address] [phone] Allergies No Known Allergiesdocumented as of this encounter (statuses as of 05/15/2020) Medications Medication Sig Dispensed Refills Start End [...] procedure and one tab the morning of. hydroCHLOROthiazide TAKE ONE 90 capsule 0 06/16/20 [...] MOUTH 19 tabletIndications: EVERY DAY Kidney stone Compressor, For DIRECTED 4 [...] pain EVERY 6 HOURS NEEDED FOR PAIN METFORMIN 500 [...] tablet 0 04/13/20 Active tabletIndications: BY MOUTH 20 Hypothyroidism due to EVERY DAY IN acquired atrophy of THE MORNING thyroid ALLOPURINOL 100 mg TAKE 1 TABLET 90 tablet 0 04/20/20 Active tabletIndications: BY MOUTH 20 Chronic gout without EVERY DAY tophus, unspecified cause, unspecified site VALSARTAN-HYDROCHLOROT TAKE 1 TABLET 90 tablet 0 04/25/20 Active HIAZIDE 320-25 mg per BY MOUTH 20 tabletIndications: EVERY DAY Essential hypertension, benign FUROSEMIDE 20 mg TAKE 1 TABLET 30 tablet 0 05/15/20 Active tabletIndications: BY MOUTH 20 Essential EVERY DAY hypertension, benign METOPROLOL SUCCINATE TAKE 1 TABLET 90 tablet 3 05/15/20 Active XL 50 mg 24 hr BY MOUTH 20 tabletIndications: EVERY DAY Essential hypertension, benign metoprolol succinate Take 1 tablet 90 tablet 3 03/11/2005/15 Discontinued XL 50 mg 24 hr by mouth 19 020 tabletIndications: daily. Essential hypertension, benign furosemide 20 mg Take 1 tablet 30 tablet 0 06/02/20 Discontinued tabletIndications: by mouth 19 020 ( Duplicate) Essential daily. hypertension, benign FUROSEMIDE 20 mg TAKE 1 TABLET 30 tablet 0 04/20/20 Discontinued tabletIndications: BY MOUTH 20 020 Essential EVERY DAY hypertension, benign documented as of this encounter (statuses as of 05/15/2020) Active Problems Problem Noted Date Staghorn calculus 11/16/2018 Kidney stone 10/13/2018 Overview: Added automatically from request for manda mancia [id number] Chronic gout without tophus, unspecified cause, unspec ified site 10/01/2018 Vaginal bleeding 05/05/2018 Postmenopausal vaginal bleeding 05/05/2018 Recurrent joint pain 05/05/2018 Dehydration 01/18/2018 Fistula 12/31/2017 Overview: Added automatically from request for manda mancia [id number] Hypotension 12/25/2017 Morbid obesity with body mass [...] 06/22/2015 Pyelonephritis 06/25/2007 Overview: ICD10 Diagnosis Term Repairer Kiln Car Utility Type 2 diabetes mellitus with stage 3 chronic kidney d isease, without 06/25/2007 long-term current use of insulin Essential hypertension, benign 06/25/2007 Hypothyroidism 06/25/2007 Overview: ICD10 Diagnosis Term Repairer Kiln Car Utility documented as of this encounter (statuses as of 05/15/2020) Immunizations Name Administration Dates Next Due Influenza [...] filedocumented in this encounter Plan of Treatment Date Type Specialty Care Team Description 05/18/2020 Office Visit Family Medicine Arthur Fong MD [address] [place] [phone] Health Maintenance Due Date Last Done Comments PNEUMOCOCCAL 0-64 YEARS 1961 COMBINED SERIES (1 of 1 - PPSV23) EYE EXAM 1966 Depression Screening 1968 FOOT EXAM 1974 COLON CANCER SCREENING 2006 [...] of this encounter Implants Implanted Type Area Coldfusion Device Shelf Expiration Model / Identifier Date Serial / Lot Ivc Filter Janice Femoral Us Bard #[id number] - S0 FILTER Groin Bar d 10/15/2020 [id number] / Implanted: Qty: 1 on 01/20/2018 by Karl Damon MD at [facility] 0 / [id number] documented as of this encounter Results Not on filedocumented in this encounter Visit Diagnoses Diagnosis Essential hypertension, benign documented in this encounter Insurance Payer Benefit Plan / Subscriber ID Effective Dates Phone Addre ss Type Group CIGMELINA PAREKH II [id number] 2003-[facility] O/PPO/POS t WELLCARE VI [facility] SALUDLYSSA [id number] 2019-Presen Medicare Adv PLUS PLUS t HMO CLASSIC/VALUE documented as of this encounter
--- OUTSIDE RECORDS SUMMARY | 2020-06-21 22:33 | XMS REPORT | Summary of Care ---
:1955 Author Organization [facility] Address [address] [place] [address] Care Team Providers Name Role Phone MD Ajit Primary Care Provider MD Ajit Unavailable Reason for Visit Reason Comments Refill Request Encounter Details Date Type Department Care Team Description 05/17/2020 Refill [facility] Family Medicine Arthur Stiles MD Refill Request - [address] [place] [address] [place] [address] [phone] Allergies No Known Allergiesdocumented as of this encounter (statuses as of 05/17/2020) Medications Medication Sig Dispensed Refills Start End [...] severity, unspecified SHORTNESS OF whether persistent BREATH amoxicillin-clavulanate Take 1 tablet 20 tablet 0 [...] mg TAKE 1 TABLET 90 tablet 1 05/22/20 Active tabletIndications: BY MOUTH EVERY 20 Anxiety [...] EVERY 20 tabletIndications: DAY Essential hypertension, benign FUROSEMIDE 20 mg TAKE 1 TABLET 30 tablet 0 05/15/20 Active tabletIndications: BY MOUTH EVERY 20 Essential hypertension, DAY benign METOPROLOL SUCCINATE XL TAKE 1 TABLET 90 tablet 3 05/15/20 Active 50 mg 24 hr BY MOUTH EVERY 20 tabletIndications: DAY Essential hypertension, benign HEMATINIC/FOLIC ACID TAKE 1 TABLET 90 tablet 0 05/17/20 Active 324 mg (106 mg iron)-1 BY MOUTH EVERY 20 mg TabIndications: DAY Anemia, unspecified type Ferrous Fumarate-Folic Take 1 tablet 90 tablet 1 11/24/1910/17 Discontinued Acid (HEMATINIC/FOLIC by mouth 20 020 ACID) 324 mg (106 mg daily. iron)-1 mg TabIndications: Anemia, unspecified type documented as of this encounter (statuses as of 05/17/2020) Active Problems Problem Noted Date Staghorn calculus 11/16/2018 Kidney stone 10/13/2018 Overview: Added automatically from request for manda mancia [id number] Chronic gout without tophus, unspecified cause, unspec ified site 10/01/2018 Vaginal bleeding 05/05/2018 Postmenopausal vaginal bleeding 05/05/2018 Recurrent joint pain 05/05/2018 Dehydration 01/18/2018 Fistula 12/31/2017 Overview: Added automatically from request for manda mancia [id number] Hypotension 12/25/2017 Morbid obesity with body mass [...] 06/22/2015 Pyelonephritis 06/25/2007 Overview: ICD10 Diagnosis Term Product Manager Financial Services Utility Type 2 diabetes mellitus with stage 3 chronic kidney d isease, without 06/25/2007 long-term current use of insulin Essential hypertension, benign 06/25/2007 Hypothyroidism 06/25/2007 Overview: ICD10 Diagnosis Term Product Manager Financial Services Utility documented as of this encounter (statuses as of 05/17/2020) Immunizations Name Administration Dates Next Due Influenza [...] Office Visit Family Medicine Arthur Fong MD [address] [place] [phone] Health Maintenance Due Date Last Done [...] of this encounter Implants Implanted Type Area Edge Sawyer Device Shelf Expiration Model / Identifier Date Serial / Lot Ivc Filter [place] Femoral Bard #[id number] - S0 FILTER Groin Bar d 10/15/2020 [id number] / Implanted: Qty: 1 on 01/20/2018 by Karl Damon MD at [facility] 0 / [id number] documented as of this encounter Results Not on filedocumented in this encounter Visit Diagnoses Diagnosis Anemia, unspecified type documented in this encounter Insurance Payer Benefit Plan / Subscriber ID Effective Dates Phone Addre ss Type Group CIGNA CIGNA II [id number] 2003-[facility] O/PPO/POS t [place] [facility] SALUDLYSSA [id number] 2019-Presen Medicare Adv PLUS PLUS t HMO CLASSIC/VALUE documented as of this encounter
--- OUTSIDE RECORDS SUMMARY | 2020-06-21 22:33 | XMS REPORT | Continuity of Care Document ---
:1955 Author Organization [facility] t Address [address] [place] [address] Care Team Providers Name Role Phone Clay Fong MD Primary Care Physician Rodrick BORREGO Attending Clinician Manjinder Nation MD Attending Clinician KIMBERLY SHRESTHA Attending Clinician Unavailable Lucian BORREGO, Kimberly Attending Clinician [phone] Saadia BORREGO Attending Clinician Dakotah BORREGO Attending Clinician Ajit BORREGO Attending Clinician Doctor Unassigned, Name Attending Clinician Unavailable GAL MULLEN Attending Clinician Unavailable SAADIA Admitting Clinician Unavailable GAL MULLEN Admitting Clinician Unavailable Payers Payer Name Policy Type Policy Number Effective Date Expiration Date S p & s surgery [facility] MEDIC[facility] xxxxxxxx [facility] CIGNA - MGD xxxxxxxxx xx [facility] CAR[facility]NA [facility] - HMO/POS/OPEN Medical ACCESSxxxxxxxxx [place] xxHMO/POS Problems Condition Condition Condition Status Onset Resolution Last Treating Co mments Source Name Details Category Date Date Treatment Clinician Date Femoral Femoral Disease Active 2019-[address] [facility] [address] distal distal 0-03 [facility] - fracture fracture 00:00: Medica l 00 [place] Chronic Chronic Disease Active 2019-[address] [facility] bronchitis bronchitis 0-03 Amy kes - 00:00: Medical 00 [place] HTN HTN Disease Active 2019-[address] (hypertens (hypertens 0-03 Amy kes - ion) ion) 00:00: Medical 00 [place] Acquired Acquired Disease Active 2019-09 [facility] hypothyroi hypothyroi 0-03 Amy kes - dism dism 00:00: Medical 00 [place] VTE VTE Disease Active 2019-[address] (venous (venous 0-03 [facility] - thromboemb thromboemb 00:00: Me dical olism) olism) 00 Center 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 [facility] or or 0-01 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 00:00: Pr actic dependence Dependence 00 e Recurrent Recurrent Problem Active [facility] isabella major Major 9-24 Family depression Depression 00:00: Pr actic 00 e SARS-CoV-2 SARS-CoV-2 Problem Active [facility] 9-09 Family 00:00: Practic 00 e Depression Depression Problem Active [facility] screening Screening 8-27 Fami ly positive Positive 00:00: Practi c 00 e Insomnia Insomnia Problem Active [facility] ge 6-28 Family 00:00: Practic 00 e Hypothyroi Hypothyroi Problem Active [facility] dism dism 6-24 Family 00:00: Practic 00 e 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 6-24 Family 00:00: Practic 00 e Chronic Chronic Problem Active [place] back pain Back Pain 6-24 Fami ly 00:00: Practic 00 e Bilateral Bilateral Problem Active [facility] knee pain Knee Pain 6-24 Fami ly 00:00: Practic e Chronic Chronic Problem Active [facility] gout Gout 1-17 Family without without 00:00: Practic tophus Tophus 00 e Morbid Morbid Disease Active [place] obesity obesity 3-30 Methodi with BMI with BMI 00:00: st of of 00 50.0-59.9, 50.0-59.9, adult adult Acute Acute Disease Active [place] renal renal 3-21 Methodi failure failure 00:00: st Col[place] Col[place] Disease [place] l fistula l fistula 2-05 Meth justina 00:00: st 00 Chronic Chronic Problem Active 2016-09 [facility] low back Low Back 2-12 Family pain Pain 00:00: Practic 00 e Osteoarthr Osteoarthr Problem Active [facility] itis itis 5-03 Family 00:00: Practic 00 e Leukocytos Leukocytos Disease Active [facility] is is 2-16 [facility] - 00:00: Medical 00 Center DM DM Disease Active [facility] (diabetes (diabetes 2-16 Luke s - mellitus), mellitus), 00:00: Me dical type 2 type 2 00 Center Diverticul Diverticul Disease Active [facility] itis itis 2-15 [facility] - 00:00: Medical 00 [place] Type 2 Type 2 Problem Active 2006-09 [facility] diabetes Diabetes 0-11 Family mellitus Mellitus 00:00: Practi c 00 e Benign Benign Problem Active 2006-09 [facility] essential Essential 0-11 Fami ly hypertensi Hypertensi 00:00: Pr actic on on 00 e Allergies, Adverse Reactions, Alerts This patient has no known allergies or adverse reactions. Social History Social Habit Start Date Stop Date Quantity Comments Source Sex Assigned At [facility] Tobacco use and 2017-12-02 2017-12-02 Never [address] [facility] ethodist exposure 00:00:00 00:00:00 Alcohol intake 2017-12-02 2017-12-02 Current [facility] thodist 00:00:00 00:00:00 non-drinker of alcohol (finding) Smoking Status Start Date Stop Date Source Never smoker [facility] Medications Ordered Filled Start Stop Current Ordering Indication Dosage Frequency Signature Comments Components Source Medication Medication Date Date Medication? Clinician (SIG) Name Name Xarelto 20 Xarelto 20 No Xarelto 20 [place] mg tablet mg tablet 5-22 mg tablet Family 00:00: Practic 00 e tizanidine tizanidine No tizanidine [facility] 4 mg tablet 4 mg tablet 5-11 4 mg F amily and and 00:00: tablet and Practic irritant-co irritant-co 00 irritant-c e unter unter ounter irritant irritant irritant comb.no.2 comb.no.2 comb.no.2 gel kit gel kit gel kit hydrochloro hydrochloro 2018- No hydrochlor [place] thiazide thiazide 0-02 othiazide Fa lana 12.5 mg 12.5 mg 00:00: 12.5 mg Prac tic capsule capsule 00 capsule e levothyroxi 2017- Yes 175ug QD Take 175 [place] ne 4-05 mcg by Methodi (SYNTHROID, 15:53: mouth st LEVOXYL) 29 every 175 mcg morning. tablet albuterol Yes 2{puff} Q6H Inhale 2 [place] (PROAIR 4-03 puffs Methodi HFA,PROVENT 13:48: every 6 st [place] 08 (six) HFA,VENTOLI hours as N HFA) 90 needed for mcg/actuati wheezing. on inhaler ALPRAZolam Yes 1mg [id number] Take 1 mg Gill (XANAX) 1 4-03 [id number] by mouth 3 Methodi MG tablet 13:48: 3D (three) st 08 times a day as needed for anxiety. citalopram Yes 20mg QD Take 20 mg [place] (CeleXA) 20 4-03 by mouth Meth justina MG tablet 13:48: every st 08 morning. diclofenac- Yes 1{tbl} Q.5D Take 1 [place] misoprostol 4-03 tablet by Met [place]cke[place] (ARTHROTEC 13:48: mouth 2 st 75) 75-200 08 (two) mg-mcg EC times a tablet day as needed (arthritis pain). ferrous 2017- Yes 1{tbl} QD Take 1 [place] fumarate-fo 4-03 tablet by Met linda lic acid 13:48: mouth st (HEMATINIC/ 08 nightly. FOLIC ACID) 324 mg (106 mg iron)-1 mg tablet per tablet rivaroxaban 2017- Yes 20mg QD Take 20 mg Gill (XARELTO) 4-03 by mouth Method i 20 mg 13:48: nightly. st tablet 08 zolpidem Yes 10mg QD Take 10 mg Starr ston (AMBIEN) 10 4-03 by mouth Meth justina mg tablet 13:48: nightly as st 08 needed for sleep. metoprolol Yes 50mg Q.5D Take 50 mg [place] tartrate 4-03 by mouth 2 Metho di (LOPRESSOR) 13:48: (two) st 50 mg 08 times a tablet day. fluocinonid Yes 1{appli Q.5D Apply 1 Gill e 0.1 % 3-15 cation} applicatio Met hodi cream 00:00: n st 00 topically 2 (two) times a day. (apply sparingly) LYRICA 75 Yes 75mg Q.5D Take 75 mg [place] mg capsule 3-12 by mouth 2 Met hodi 00:00: (two) st 00 times a day. enoxaparin Yes Inject 0.8 [place] (LOVENOX) 2-09 ml Methodi 120 mg/0.8 00:00: subcutanou s t mL syringe 00 sharon twice daily. Take after stopping xarelto 2 days prior to surgery. Hold the night before surgery. umeclidiniu Yes 1{puff} QD Inhale 1 Gill m-vilantero 2-09 puff daily Me thodi l (ANORO 00:00: for 30 st ELLIPTA) 00 days. 62.5-25 mcg/actuati on blister with device valsartan-h Yes [facility] ydrochlorot 1-16 [facility] - hiazide 00:00: Medical (DIOVAN-HCT 00 Center ) 320-25 mg per tablet HEMATINIC/F Yes [facility] OLIC ACID 1-02 [facility] - 324 mg (106 00:00: Medica l mg iron)-1 00 Center mg Tab citalopram 2015-[address] (CELEXA) 20 2-03 [facility] - MG tablet 00:00: Medical 00 Center furosemide 2015-[address] (LASIX) 20 2-03 [facility] - MG tablet 00:00: Medical 00 Center levothyroxi 2015-[address] ne 2-03 [facility] - (SYNTHROID, 00:00: Medica l LEVOTHROID) 00 Center 150 MCG tablet metoprolol 2015-[address] (LOPRESSOR) 2-03 [facility] - 50 MG 00:00: Medical tablet 00 Center potassium 2015-09 Yes [facility] St citrate 2-03 [facility] - (UROCIT-K) 00:00: Medical 10 mEq 00 Center (1,080 mg) SR tablet zolpidem 2015-[address] (AMBIEN) 10 2-01 [facility] - mg tablet 00:00: Medical 00 Center albuterol albuterol No albuterol [facility] sulfate 2.5 sulfate 2.5 sulfate Family mg/3 mL mg/3 mL 2.5 mg/3 Pract ic (0.083 %) (0.083 %) mL (0.083 e solution solution %) for for solution nebulizatio nebulizatio for n n nebulizati on albuterol albuterol No albuterol [facility] sulfate HFA sulfate HFA sulfate Family 90 90 HFA 90 Practic mcg/actuati mcg/actuati mcg/actuat e on aerosol on aerosol ion inhaler inhaler aerosol inhaler allopurinol allopurinol No allopurino [facility] 100 mg 100 mg l 100 mg Family tablet Take tablet Take tablet Practic 1 tablet 1 tablet Take 1 e every day every day tablet by oral by oral every day route. route. by oral route. alprazolam alprazolam No alprazolam [facility] 1 mg tablet 1 mg tablet 1 mg F amily tablet Practic e amoxicillin amoxicillin No amoxicilli [facility] [phone] Family mg-potassiu mg-potassiu mg-potassi Practic m m um e clavulanate clavulanate clavulanat 125 mg 125 mg e 125 mg tablet tablet tablet azithromyci azithromyci No azithromyc [facility] n 250 mg n 250 mg in 250 mg Fa lana tablet tablet tablet Practic e benzonatate benzonatate No benzonatat [facility] 200 mg 200 mg e 200 mg Family capsule capsule capsule Practi c e Breo Breo No Breo [facility] Ellipta 200 Ellipta 200 Ellipta Family mcg-25 mcg-25 200 mcg-25 Pract ic mcg/dose mcg/dose mcg/dose e powder for powder for powder for inhalation inhalation inhalation citalopram citalopram citalopram [facility] 20 mg 20 mg 20 mg Family tablet tablet tablet Practic e clobetasol clobetasol No clobetasol [facility] 0.05 % 0.05 % 0.05 % Family topical topical topical Practi c ointment ointment ointment e cyclobenzap cyclobenzap No cyclobenza [facility] rine 7.5 mg rine 7.5 mg festus 7.5 Family tablet tablet mg tablet Practi c e econazole 1 econazole 1 No econazole [place] % topical % topical 1 % Famil y cream cream topical Practic cream e etodolac etodolac No etodolac [facility] is[facility] 400 mg 400 mg 400 mg Family tablet Take tablet Take tablet Practic 1 tablet 1 tablet Take 1 e twice a day twice a day tablet by oral by oral twice a route. route. day by oral route. fluconazole fluconazole No fluconazol [facility] 150 mg 150 mg e 150 mg Family tablet tablet tablet Practic e furosemide furosemide No furosemide [facility] 20 mg 20 mg 20 mg Family tablet 20 tablet 20 tablet 20 Practic mg by oral mg by oral mg by oral e route. route. route. Hematinic/F Hematinic/F No Hematinic/ [facility] olic Acid olic Acid Folic Acid Family 324 mg (106 324 mg (106 324 mg Practic mg iron)-1 mg iron)-1 (106 mg e mg tablet mg tablet iron)-1 mg 1 {tbl} by 1 {tbl} by tablet 1 oral route. oral route. {tbl} by oral route. hydrocodone hydrocodone No hydrocodon [facility] 10 10 e 10 Family mg-acetamin mg-acetamin mg-acetami Practic ophen 325 ophen 325 nophen 325 e mg tablet mg tablet mg tablet 1 {tbl} by 1 {tbl} by 1 {tbl} by oral route. oral route. oral route. levothyroxi levothyroxi No 1 Q1D levothyrox [facility] ne 75 mcg ne 75 mcg ine 75 mcg Family tablet Take tablet Take tablet Practic 1 tablet 1 tablet Take 1 e every day every day tablet by oral by oral every day route. route. by oral route. metformin metformin metformin [facility] 500 mg 500 mg 500 mg Family tablet tablet tablet Practic e methylpredn methylpredn No methylpred [facility] isolone 4 isolone 4 nisolone 4 Family mg tablets mg tablets mg tablets Practic in a dose in a dose in a dose e pack pack pack metoprolol metoprolol No metoprolol [facility] succinate succinate succinate Family ER 50 mg ER 50 mg ER 50 mg Pra ctic tablet,exte tablet,exte tablet,ext e nded nded ended release 24 release 24 release 24 hr 50 mg hr 50 mg hr 50 mg by oral by oral by oral route. route. route. potassium potassium No potassium [facility] citrate ER citrate ER citrate ER Family 10 mEq 10 mEq 10 mEq Practic (1,080 mg) (1,080 mg) (1,080 mg) e tablet,exte tablet,exte tablet,ext nded nded ended release release release prednisone prednisone No prednisone [facility] 10 mg 10 mg 10 mg Family tablet tablet tablet Practic e pregabalin pregabalin No pregabalin [facility] 150 mg 150 mg 150 mg Family capsule capsule capsule Practi c e ProAir ProAir No ProAir [facility] RespiClick RespiClick RespiClick Family 90 90 90 Practic mcg/actuati mcg/actuati mcg/actuat e on breath on breath ion breath activated activated activated tizanidine tizanidine No 1capsul Q6H tizanidine [facility] 4 mg 4 mg e(s) 4 mg Family capsule capsule capsule Practi c Take 1 Take 1 Take 1 e capsule capsule capsule every 6 every 6 every 6 hours by hours by hours by oral route. oral route. oral route. triamcinolo triamcinolo No triamcinol [facility] ne ne one Family acetonide acetonide acetonide Practic 0.147 0.147 0.147 e mg/gram mg/gram mg/gram topical topical topical aerosol aerosol aerosol valsartan valsartan No 1 Q1D valsartan [facility] 320 320 320 Family mg-hydrochl mg-hydrochl mg-hydroch Practic orothiazide orothiazide lorothiazi e 12.5 mg 12.5 mg de 12.5 mg tablet Take tablet Take tablet 1 tablet 1 tablet Take 1 every day every day tablet by oral by oral every day route. route. by oral route. Wixela Wixela No Wixela [place] Inhub 250 Inhub 250 Inhub 250 Family mcg-50 mcg-50 mcg-50 Practic mcg/dose mcg/dose mcg/dose e powder for powder for powder for inhalation inhalation inhalation zolpidem 10 zolpidem 10 No zolpidem [place] mg tablet mg tablet 10 mg Fami ly 10 mg by 10 mg by tablet 10 P ractic oral route. oral route. mg by oral e route. Immunizations Ordered Immunization Filled Immunization Date Status Commen ts Source Name Name influenza, influenza, 2019-06-15 Completed [facility] injectable, injectable, 00:00:00 Practice quadrivalent quadrivalent Vital Signs Vital Name Observation Time Observation Value Comments Source Height 2020-06-12 00:00:00 68 [in_i] [facility] Height 2020-05-24 00:00:00 68 [in_i] [facility] Height 2020-03-08 00:00:00 68 [in_i] [facility] BMI (Body Mass Index) 2020-03-08 00:00:00 35 kg/m2 [facility] Body Weight 2020-03-08 00:00:00 230 [lb_av] [facility] Heart rate 2020-06-21 21:26:00 102 /min [facility] Respiratory rate 2020-06-21 21:26:00 18 /min [facility] Oxygen saturation in 2020-06-21 21:26:00 98 /min [facility] - Arterial blood by Medical Ce nter Pulse oximetry Systolic blood 2020-06-21 20:40:00 92 mm[Hg] [facility] Diastolic blood 2020-06-21 20:40:00 51 mm[Hg] [facility] Body temperature 2020-06-21 20:40:00 36.67 Cassy [facility] Body height 2020-06-17 16:00:00 175.3 cm [facility] Body weight Measured 2020-06-17 16:00:00 139.708 kg [facility] BMI 2020-06-17 16:00:00 45.48 kg/m2 [facility] Procedures Procedure Date / Time Performed Performing Clinician [facility] e TRANSFUSION SERVICE 2020-06-21 18:01:23 Provider, Shanon [facility] REPORT - SCAN Scanning [facility] POCT-GLUCOSE METER 2020-06-21 15:24:00 Luke Claire [facility] POCT-GLUCOSE METER 2020-06-21 12:28:00 Luke Claire [facility] CBC (HEMOGRAM ONLY) 2020-06-21 10:43:00 Alen Morejon [facility] POCT-GLUCOSE METER 2020-06-21 09:45:00 Luke Claire [facility] FL FLUORO NON-SPECIFIC UP 2020-06-21 08:50:00 O[facility] Nation [facility] 1 HOUR [facility] ORIF,FEMUR 2020-06-21 08:00:00 Oma Nation [facility] PROCEDURE W/ C-ARM 2020-06-21 08:00:00 O[place] Nation [facility] PREPARE LEUKO-REDUCED RBC 2020-06-20 23:54:00 Scot Shaver [facility] POCT-GLUCOSE METER 2020-06-20 23:34:00 Herve Zee [facility] POCT-GLUCOSE METER 2020-06-20 18:39:00 Herve Zee [facility] TRANSFUSION SERVICE 2020-06-20 18:21:03 Provider, Shanon [facility] - REPORT - SCAN Scanning [facility] XR PELVIS 1 OR 2 VIEWS 2020-06-20 18:13:00 Oma Nation [facility] XR ELBOW LEFT (MIN 3 2020-06-20 17:26:[address] [facility] XR SHOULDER 1 VIEW LEFT 2020-06-20 17:26:00 Herve Zee [facility] NM MYOCARD IMAGING MULTI 2020-06-20 15:41:00 Elizabeth Butler CH I [facility] - PHARM PLANAR [facility] POCT-GLUCOSE METER 2020-06-20 12:20:00 Herve Zee [facility] POCT-GLUCOSE METER 2020-06-20 06:07:00 Herve Zee [facility] COMPREHENSIVE METABOLIC 2020-06-20 04:32:00 Herve Zee [facility] VITAMIN B12 AND FOLATE 2020-06-20 04:32:00 Ana Leonardo [facility] CALCIUM, IONIZED 2020-06-20 04:32:00 Herve Zee [facility] PHOSPHORUS 2020-06-20 04:32:00 Herve Zee [facility] MAGNESIUM 2020-06-20 04:32:00 Herve Zee [facility] CBC W/PLT COUNT & AUTO 2020-06-20 04:32:00 Herve Zee CH [facility] POCT-GLUCOSE METER 2020-06-19 21:05:00 Herve Zee [facility] TRANSFUSE LEUKO-REDUCED 2020-06-19 20:26:24 Scot Shaver [facility] - RED BLOOD CELLS [facility] TRANSFUSION SERVICE 2020-06-19 18:00:37 ProviderShanon [facility] REPORT - SCAN [facility] POCT-GLUCOSE METER 2020-06-19 13:05:00 Herve Zee [facility] TREADMILL 2020-06-19 09:45:13 Unknown, Hl7 Doctor [facility] - TOLERANCE(NON-NUCLEAR Medical Ce nter TREADMILL) ECG 12-LEAD 2020-06-19 09:41:18 Unknown, 7 [facility] ECG 12-LEAD 2020-06-19 09:24:29 Unknown, 7 [facility] POCT-GLUCOSE METER 2020-06-19 05:47:00 Herve Zee [facility] SARS-COV2/RT-PCR ([facility] & 2020-06-19 05:13:00 Alyce Donnelly [facility] - REF LABS) [facility] CALCIUM, IONIZED 2020-06-19 03:54:00 Herve Zee [facility] CBC W/PLT COUNT & AUTO 2020-06-19 03:54:00 Herve Zee CH [facility] COMPREHENSIVE METABOLIC 2020-06-19 03:53:00 Herve Zee [facility] PHOSPHORUS 2020-06-19 03:53:00 Herve Zee [facility] MAGNESIUM 2020-06-19 03:53:00 [facility]UAL 2020-06-18 22:08:00 Yas Poole [facility] POCT-GLUCOSE METER 2020-06-18 21:34:00 [facility]CREEN, 2020-06-18 17:02:00 Scot Shaver [facility] es - AUTOMATED [facility] POCT-GLUCOSE METER 2020-06-18 15:58:00 [facility] POCT-[facility]UCOSE METER 2020-06-18 11:07:00 [facility] 2020-06-18 09:31:00 [facility] PO[facility]UCOSE METER 2020-06-18 07:58:00 [facility] 2020-06-18 05:44:00 [facility] CALCIUM, IONIZED 2020-06-18 05:44:00 Herve Zee [facility] PHOSPHORUS 2020-06-18 05:44:00 [facility] MAGNESIUM 2020-06-18 05:44:00 Herve Zee [facility] HEMOGLOBIN A1C 2020-06-18 05:44:00 Herve Zee [facility] TSH/FREE T4 IF INDICATED 2020-06-18 05:44:00 [facility] COMPREHENSIVE METABOLIC 2020-06-18 05:44:00 Herve Zee [facility] B-TYPE NATRIURETIC FACTOR 2020-06-18 05:44:00 Herve Zee [facility] (BNP) [facility] T4, FREE 2020-06-18 05:44:00 [facility] W/[facility]T [facility] & AUTO 2020-06-18 05:44:00 Herve Zee CH, I [facility] 2D ECHO W/ DOPPLER 2020-06-17 22:02:40 Herve Zee [facility] (CW/PW/COLOR) [facility] POCT-GLUCOSE METER 2020-06-17 21:40:00 Herve Zee [facility] COMPREHENSIVE METABOLIC 2020-06-17 21:07:00 Herve Zee [facility] CBC W/PLT COUNT & AUTO 2020-06-17 21:07:00 Herve Zee CH I [facility] ECG 12-LEAD 2020-06-17 20:01:42 Unknown, Hl7 Doctor [facility] Plan of Care Planned Activity Planned Date Details Comments Source Future Scheduled Test 2020-12-17 Hemoglobin A1c [facility] - 00:00:00 [facility] (procedure) [code = 24115000] Future Scheduled Test 2020-05-16 INFLUENZA VACCINE C [facility] - 00:00:00 (#1) [code = [facility] Center INFLUENZA VACCINE (#1)] Future Scheduled Test 2020-04-15 [facility] [code = INFLUENZA VACCINE] Future Scheduled Test 2010-03-16 MEDICARE ANNUAL [facility] - 00:00:00 WELLNESS (YEAR 2 or Medical Center FIRST YEAR if no IPPE) [code = MEDICARE ANNUAL WELLNESS (YEAR 2 or FIRST YEAR if no IPPE)] Future Scheduled Test 2006 BREAST CANCER [place] [facility] 00:00:00 SCREENING [code = BREAST CANCER SCREENING] Future Scheduled Test 2006 COLONOSCOPY SCREENING [place] [facility] 00:00:00 [code = COLONOSCOPY SCREENING] Future Scheduled Test 2006 SHINGLES VACCINES [place] [facility] 00:00:00 (#1) [code = SHINGLES VACCINES (#1)] Future Scheduled Test 2001 Lipid panel [facility] - 00:00:00 (procedure) [code = Medical Center 23725097] Future Scheduled Test 1977 Screening for [place] [facility] 00:00:00 malignant neoplasm of cervix (procedure) [code = 488207743] Future Scheduled Test [facility] (procedure) [code = 186151567] Future Scheduled Test 1966 DIABETIC FOOT EXAM [place] [facility] 00:00:00 [code = DIABETIC FOOT EXAM] Future Scheduled Test 1966 URINE MICROALBUMIN [place] [facility] 00:00:00 [code = URINE MICROALBUMIN] Future Scheduled Test 1966 DIABETIC EYE [facility] - 00:[facility] [code = DIABETIC EYE Medical Center EXAM] Future Scheduled Test 1966 Di[facility] foot [facility] - [facility] examination Medical Center (regime/therapy) [code = 531759315] Future Scheduled Test 1966 Urine screening for [facility] - 00:00:00 protein (procedure) Medical Center [code = 640278601] Future Scheduled Test [address] [facility] - 00:00:00 2-64 YEARS AT RISK (1 Medica l Center of 1 - PPSV23) [code = PNEUMOCOCCAL VACCINE 2-64 YEARS AT RISK (1 of 1 - PPSV23)] Future Scheduled Test 1956 DIABETIC RETINAL EYE [place] [facility] 00:00:00 EXAM [code = DIABETIC RETINAL EYE EXAM] Future Scheduled Test 1955 [facility] breast (procedure) [code = 254232624] Future Scheduled Test 1956 [facility] - [facility] colon (procedure) [code = 410015170] Future Appointment 2020-09-15 Corine [facility] Family 00:00:00 [address]; [address], [place] [address] Encounters Start End Encounter Admission Attending Care Care Encounter Source Date/Time Date/Time Type Type Clinicians Facility Department ID 2020-06-16 2020-06-16 SOWMYA Benjamin [id number] 00:00:00 00:00:00 [facility] [id number] [place] [id number] Fabi [id number] [address]al [address] 2020-06-12 2020-06-12 [facility] [place] - [id number] V illage 00:00:00 00:00:[address] [facility] erkia o, PROPERTY ASSESSMENT MONITOR: Medical - Practi c [address] [email or web address], [place] [address], [place] [address] , Ph. 2020-06-05 2020-06-05 [facility]phone [facility] [id number] 00:00:00 00:00:00 [facility] 350.1.13.10 [place] 4.2.7.2.686 Professio [phone] nal [facility] Office Building One 2020-05-24 2020-05-24 [facility] [place] - [id number] V illage 00:00:00 00:00:00 [facility] erika o, PROPERTY ASSESSMENT MONITOR: Medical - Practi c [address] [email or web address], [place] [address], [place] [address] , Ph. 2020-05-24 2020-05-24 Refill [facility] 1.2.840.114 [id number] 00:00:00 00:00:00 [facility] 350.1.13.10 [place] 4.2.7.2.686 Professio [phone] nal [facility] Office Building One 2020-05-24 2020-05-24 Orders Doctor OMA 1.2.840.114 [id number] 00:00:00 00:00:00 Only Unassigned, KEVIN 350.1.13.10 War [facility] 4.2.7.2.686 [id number] [id number] 2020-05-17 2020-05-17 Refill [facility] 1.2.840.114 [id number] 00:00:00 00:00:00 [facility] 350.1.13.10 [place] 4.2.7.2.686 Professio [phone] nal 044 Office Building One 2020-05-15 2020-05-15 Telephone [facility] 1.2.090.402 [id number] 00:00:00 00:00:00 [facility] 350.1.13.10 [place] 4.2.7.2.686 Professio [phone] [place] [address] Office Building One 2020-05-14 2020-05-14 Refkathrin Fong, [facility] 1.2.840.114 [id number] 00:00:00 00:00:00 [facility] 350.1.13.10 [place] 4.2.7.2.686 Professio [phone] [place] [address] Office Building One 2020-05-09 2020-05-09 Telephone Ajit, [facility] 1.2.398.773 [id number] 00:00:00 00:00:00 [facility] 350.1.13.10 [place] 4.2.7.2.686 Professio [phone] [place] [address] Building 2020-04-24 2020-04-24 Refkathrin Fong, [facility] 1.2.840.114 [id number] 00:00:00 00:00:00 [facility] 350.1.13.10 [place] 4.2.7.2.686 Professio [phone] [place] [address] Office Building One 2020-04-20 2020-04-20 Refill Ajit, [facility] 1.2.840.114 [id number] 00:00:00 00:00:00 [facility] 350.1.13.10 [place] 4.2.7.2.686 Professio [phone] [place] [address] Office Building One 2020-04-17 2020-04-17 Refkathrin Fong, [facility] 1.2.840.114 [id number] 00:00:00 00:00:00 [facility] 350.1.13.10 [place] 4.2.7.2.686 Professio [phone] [place] [address] Office Building One 2020-04-13 2020-04-13 Refkathrin Fong, [facility] 1.2.840.114 [id number] 00:00:00 00:00:00 [facility] 350.1.13.10 [place] 4.2.7.2.686 Professio [phone] [place] [address] Office Building One 2020-04-07 2020-04-07 Telephone Ajit, [facility] [id number] 00:00:00 00:00:00 [facility] 350.1.13.10 [place] 4.2.7.2.686 Professio [phone] [place] [address] Office Building One 2020-03-28 2020-03-28 Telephone [facility] 1.2.413.131 [id number] 00:00:00 00:00:00 [facility] 350.1.13.10 [place] 4.2.7.2.686 Professio [phone] [place] [address] Office Building One 2020-03-24 2020-03-24 Jose Roberto [facility] [id number] 00:00:00 00:00:00 [facility] 350.1.13.10 [place] 4.2.7.2.686 Professio [phone] [place] [address] Office Building One 2020-03-21 2020-03-21 [facility] 1.2.840.114 [id number] 00:00:00 00:00:00 [facility] 350.1.13.10 [place] 4.2.7.2.686 Professio [phone] [place] [address] Office Building One 2020-03-08 2020-03-08 Prudence [facility] [place] - [id number] V illage 00:00:00 00:00:00 [facility] erika kong, PROPERTY ASSESSMENT MONITOR: Medical - Practi c [address] [email or web address]_ e [facility], [place] [address], [place] [address] , Ph. 2020-02-22 2020-02-22 Refkathrin [facility] 1.2.840.114 [id number] 00:00:00 00:00:00 [facility] 350.1.13.10 [place] 4.2.7.2.686 Professio [phone] [place] [address] Office Building One 2020-02-22 2020-02-22 Jose Roberto [facility] 1.2.123.442 [id number] 00:00:00 00:00:00 [facility] 350.1.13.10 [place] 4.2.7.2.686 Professio [phone] [place] [address] Office Building One 2020-02-11 2020-02-11 Telephone Ajit, [facility] 1.2.227.426 [id number] 00:00:00 00:00:00 [facility] 350.1.13.10 [place] 4.2.7.2.686 Professio [phone] [address] 2020-02-07 2020-02-07 Orders Doctor OMA 1.2.840.114 [id number] 00:00:00 00:00:00 Only Unassigned, KEVIN 350.1.13.10 War [facility] 4.2.7.2.686 [id number] 2020-02-04 2020-02-04 Refkathrin Fong, [facility] 1.2.840.114 [id number] 00:00:00 00:00:00 [facility] 350.1.13.10 [place] 4.2.7.2.686 Professio [phone] [place] [address] Office [facility] 2020-02-04 2020-02-04 Refkathrin Fong, [facility] 1.2.840.114 [id number] 00:00:00 00:00:00 [facility] 350.1.13.10 [place] 4.2.7.2.686 Professio [phone] [address] 2020-02-04 2020-02-04 Jose Roberto Fong, AKIRVIN 1.2.759.882 [id number] 00:00:00 00:00:00 [facility] 350.1.13.10 [place] 4.2.7.2.686 Professio [phone] [address] 2020-01-28 2020-01-28 Brigida Fong, AKIRVIN 1.2.840.114 [id number] 00:00:00 00:00:00 [facility] 350.1.13.10 [place] 4.2.7.2.686 Professio [phone] [place] [address] Office [facility] 2020-01-28 2020-01-28 Jose Roberto Fong, AKIRVIN 1.2.805.154 [id number] 00:00:00 00:00:00 [facility] 350.1.13.10 [place] 4.2.7.2.686 Professio [phone] [place] [address] Office Building One 2020-01-26 2020-01-26 Refill Ajit, [facility] 1.2.840.114 [id number] 00:00:00 00:00:00 [facility] 350.1.13.10 [place] 4.2.7.2.686 Professio [phone] [place] [address] Office Building One 2020-01-24 2020-01-24 Refkathrin Fong, [facility] 1.2.840.114 [id number] 00:00:00 00:00:00 [facility] 350.1.13.10 [place] 4.2.7.2.686 Professio [phone] [place] [address] Office Building One 2020-01-19 2020-01-19 Refkathrin Fong, [facility] 1.2.840.114 [id number] 00:00:00 00:00:00 [facility] 350.1.13.10 [place] 4.2.7.2.686 Professio [phone] [place] [address] Office Building One 2020-01-13 2020-01-13 Refill Ajit, [facility] 1.2.840.114 [id number] 00:00:00 00:00:00 [facility] 350.1.13.10 [place] 4.2.7.2.686 Professio [phone] [place] [address] Office Building One 2020-01-10 2020-01-10 Brigida Fong, [facility] 1.2.840.114 [id number] 00:00:00 00:00:00 [facility] 350.1.13.10 [place] 4.2.7.2.686 Professio [phone] [place] [address] Office Building One 2019-12-27 2019-12-27 Telemedici Ajit, [facility] 1.2.840.114 [id number] 07:48:47 08:03:47 ne Visit [facility] [place] 350.1.13.10 [place] 4.2.7.2.686 Professio [phone] [address] 2019-12-20 2019-12-20 Refkathrin Fong, [facility] 1.2.840.114 [id number] 00:00:00 00:00:00 [facility] 350.1.13.10 [place] 4.2.7.2.686 Professio [phone] nal 044 Office Building One 2019-12-13 2019-12-13 Telephone Ajit AKIRVIN [id number] [id number] 00:00:00 00:00:00 [facility] 350.1.13.10 [place] 4.2.7.2.686 Professio [phone] nal 044 Office Building One 2019-12-04 2019-12-04 Refill Ajit [facility] 1.2.840.114 [id number] 00:00:00 00:00:00 [facility] 350.1.13.10 [place] 4.2.7.2.686 Professio [phone] nal 044 Office Building One 2019-11-24 2019-11-24 Office Ajit [facility] 1.2.840.114 [id number] 09:33:43 09:48:43 Visit [facility] 350.1.13.10 [place] 4.2.7.2.686 Professio [phone] [place] [address] Office Building One Results Test Description Test Time Test Comments Results Result Comments Source POC-Glucose meter 2020-06-21 15:36:00 Test Item Value Reference Range Interpretation Comme nts POC-Glucose Meter (test code = 153 mg/dL 70-110 H : TESTED AT [facility] [address] [facility] 1538) [facility], 770 30: Hull Molder/Techni alton ID = [id number] for MARQUISE MUÑIZ Lab Interpretation (test code = Abnormal 59185-8) [facility] [id number] 15:36:00 Test Item Value Reference Range Interpretation Comments POC-GLUCOSE METER 153 mg/dL 70-110 H : TESTED A T [facility] 6720 (BEAKER) (test code = RONNY Munoz [facility], 1538) [address]: Hull Molder/Techni alton ID = [id number] for [place] Treadmill tolerance(Non-Nuclear Treadmill)2020-06-21 14:44:14Interface, External Ris In - 06/21/2020 2:44 PM CDTProtocol Name REGADENOSON Time In Exercise Phase 00:01:00 Max. Systolic BP 118 mmHgMax Diastolic BP 62 mmHgMax Heart Rate 107 BPMMax Predicted Heart Rate 157 BPMReason For Termination Predetermined end point Reason for Test Pre Op Cardiac Clearance-ORIF Target HR Formula (220 - Age)*100% Arrhythmias none Resting ECG Normal sinus rhythm ST Changes Marked ST DepressionT Wave inversion I, aVLOverall Impression Indeterminate due to pharmacological stress Chest Pain none HR Response To Exercise BP Response To Exercise levoothyroxine,losartan,metoprololConfirmed by fellow Charles Montero ([id number]) on 06/19/2020 2:52:27 PMConfirmed by Real Magallon ([id number]) on 06/21/2020 2:44:06 [facility], LEFT 2020-06-21 13:36:00Reason for exam:->elbow painFINAL REPORT Radiograph of the left shoulder, left elbow, and pelvis Reason for exam: left shoulder pain Comparison: No priors Discussion: There is anterior- inferior dislocation of the left shoulder, which is an apparent Hill-Sachs deformity of the humeral head. No definite scapular fracture is identified. Moderate AC joint DJD is noted. Three views of the left elbow demonstrates no acute fracture, or dislocation. There is tzkh-ep-jgbzazxf osteoarthritis, as well as mild enthesopathy at the medial epicondyles. The lateral view is nonstandard, limiting evaluation; presence of elbow joint effusion cannot be ascertained. 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 No acute fracture, or dislocation is identified in the pelvis. Symphysis pubis appears congruent. Note the sacrum is mostly obscured by stool and bowel gas. Visualized soft tissues are unremarkable. Impressions: Anterior inferior left shoulder dislocation. 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 Signed: Jennifer Rubio Verified Date/Time: 06/21/2020 13:36:41 Reading Location: [facility] Radiology Reading Room Electr onically signed by: JENNIFER RUBIO M.D. on 06/21/2020 01:36 PMRAD, SHOULDER, 1 VIEW, [id number] 13:36:00Reason for exam:->left shouler painFINAL REPORT Radiograph of the left shoulder, left elbow, and pelvis Reason for exam: left shoulder pain Comparison: No priors Discussion: There is anterior-inferior dislocation of the left shoulder, which is an apparent Hill- Sachs deformity of the humeral head. No definite scapular fracture is identified. Moderate AC joint DJD is noted. Three views of the left elbow demonstrates no acute fracture, or dislocation. There is xwcx-gy-zqtfizyg osteoarthritis, as well as mild enthesopathy at the medial epicondyles. The lateral view is nonstandard, limiting evaluation; presence of elbow joint effusion cannot be ascertained. 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 No acute fracture, or dislocation is identified in the pelvis. Symphysis pubis appears congruent. Note the sacrum is mostly obscured by stool and bowel gas. Visualized soft tissues are unremarkable. Impressions: Anterior inferior left shoulder dislocation. 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 Signed: Jennifer Rubio Verified Date/Time: 06/21/2020 13:36:41 Reading Location: [facility] Radiology Reading Room RAD, PELVIS, 1 OR 2 [id number] 13:36:00Single viewReason for exam:- >femur fxShould this be performed at the bedside?->YesFINAL REPORT Radiograph of the left shoulder, left elbow, and pelvis Reason f or exam: left shoulder pain Comparison: No priors Discussion: There is anterior-inferior dislocation of the left shoulder, which is an apparent Hill- Sachs deformity of the humeral head. No definite scapular fracture is identified. Moderate AC joint DJD is noted. Three views of the left elbow demonstrates no acute fracture, or dislocation. There is pcfc-sv-mopgijoz osteoarthritis, as well as mild enthesopathy at the medial epicondyles. The lateral view is nonstandard, limiting evaluation; presence of elbow joint effusion cannot be ascertained. 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 No acute fracture, or dislocation is identified in the pelvis. Symphysis pubis appears congruent. Note the sacrum is mostly obscured by stool and bowel gas. Visualized soft tissues are unremarkable. Impressions: Anterior inferior left shoulder dislocation. 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 Signed: Jennifer Rubio Verified Date/Time: 06/21/2020 13:36:41 Reading Location: [facility] Radiology Reading Room XR pelvis 1 or 2 [id number] 13:36:00Interface, External Ris In - 06/21/2020 1:38 PM CDTFINAL REPORT Radiograph of the left shoulder, left elbow, and pelvis Reason for exam: left shoulder pain Comparison: No priors Discussion: There is anterior-inferior dislocation of the left shoulder, which is an apparent Hill-Sachs deformity of the humeral head. No definite scapular fracture is identified. Moderate AC jointDJD is noted. Three views of the left elbow demonstrates no acute fracture, or dislocation. There llzcoc-vf-ekxspqqa osteoarthritis, as well as mild enthesopathy at the medial epicondyles. The lateralview is nonstandard, limiting evaluation; presence of elbow joint effusion cannot be ascertained. 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 No acute fracture, or dislocation is identified in the pelvis. Symphysis pubis appears congruent. Note the sacrum is mostly obscured by stool and bowel gas. Visualizedsoft tissues are unremarkable. Impressions: Anterior inferior left shoulder dislocation. DJD at theleft elbow, and both hips. Signed: Jennifer Rubio MDReport Verified Date/Time: 06/21/2020 13:36:41 Reading Location: [facility] Radiology Reading Room [facility] 3 views min [id number] 13:36:00Interface, External Ris In - 06/21/2020 1:38 PM CDTFINAL REPORT Radiograph of the left shoulder, left elbow, and pelvis Reason for exam: left shoulder pain Comparison: No priors Discussion: There is anterior-inferior dislocation of the left shoulder, which is an apparent Hill-Sachs deformity of the humeral head. No definite scapular fracture is identified. Moderate AC jointDJD is noted. Three views of the left elbow demonstrates no acute fracture, or dislocation. There is xagg-cb-yyaqvgcx osteoarthritis, as well as mild enthesopathy at the medial epicondyles. The lateralview is nonstandard, limiting evaluation; presence of elbow joint effusion cannot be ascertained. 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 No acute fracture, or dislocation is identified in the pelvis. Symphysis pubis appears congruent. Note the sacrum is mostly obscured by stool and bowel gas. Visualizedsoft tissues are unremarkable. Impressions: Anterior inferior left shoulder dislocation. DJD at theleft elbow, and both hips. Signed: Jennifer Rubioort Verified Date/Time: 06/21/2020 13:36:41 Reading Location: [facility] Radiology Reading Room [facility] 1 view left 2020-06-21 13:36:00Interface, External Ris In - 06/21/2020 1:38 PM CDTFINAL REPORT Radiograph of the left shoulder, left elbow, and pelvis Reason for exam: left shoulder pain Comparison: No priors Discussion: There is anterior-inferior dislocation of the left shoulder, which is an apparent Hill-Sachs deformity of the humeral head. No definite scapular fracture is identified. Moderate AC jointDJD is noted. Three views of the left elbow demonstrates no acute fracture, or dislocation. There xmwgba-mf-iznzuggn osteoarthritis, as well as mild enthesopathy at the medial epicondyles. The lateralview is nonstandard, limiting evaluation; presence of elbow joint effusion cannot be ascertained. 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 No acute fracture, or dislocation is identified in the pelvis. Symphysis pubis appears congruent. Note the sacrum is mostly obscured by stool and bowel gas. Visualized soft tissues are unremarkable. Impressions: Anterior inferior left shoulder dislocation. DJD at theleft elbow, and both hips. Signed: Jennifer Rubio Verified Date/Time: 06/21/2020 13:36:41 Reading Location: [facility] Radiology Reading Room [facility] HospitalPOCT-GLUCOSE [id number] 12:40:00 Test Item Value Reference Range Interpretation Comments POC-GLUCOSE METER 189 mg/dL 70-110 H : TESTED A T [facility] 67[address] (BEAKER) (test code = [place], 1538) [address]: Hull Molder/Techni alton ID = [id number] for PRINCESS ED CBC (Hemogram only)2020-06-21 11:17:00 Test Item Value Reference Range Interpretation Comments WBC (test code = 6690-2) 27.9 3.5- 10.5 K/L H RBC (test code = 789-8) 3.37 3.93- 5.22 M/L L MCHC (test code = 786-4) 30.4 32.2- 35.5 GM/DL L Hematocrit (test code = 35.5 % 34.1-44.9 4544-3) MCV (test code = 787-2) 105.3 fL 79.4-94.8 H Disc ordant MCV result compared to previous result ; clinical correl ation required MCH (test code = 785-6) 32.0 pg 25.6-32.2 RDW (test code = 788-0) 16.5 % 11.7-14.4 H Platelets (test code = 254 150- 450 K/CU MM 777-3) MPV (test code = 9.9 fL 9.4-12.3 31356-5) nRBC (test code = 413) 0 0- 0 /100 WBC Lab Interpretation (test Abnormal code = 85779-8) [facility]2020-06-21 11:17:00 Test Item Value Reference Range Interpretation Comments WHITE BLOOD CELL COUNT 27.9 K/ L 3.5-10.5 H (BEAKER) (test code = 775) RED BLOOD CELL COUNT 3.37 M/ L 3.93-5.22 L (BEAKER) (test code = 761) HEMOGLOBIN (BEAKER) 10.8 GM/DL 11.2-15.7 L (test code = 410) HEMATOCRIT (BEAKER) 35.5 % 34.1-44.9 (test code = 411) MEAN CORPUSCULAR 105.3 fL 79.4-94.8 H Discordant MCV VOLUME (BEAKER) (test result compared to code = 753) previous result ; clinical correl ation required MEAN CORPUSCULAR 32.0 pg 25.6-32.2 HEMOGLOBIN (BEAKER) (test code = 751) MEAN CORPUSCULAR 30.4 GM/DL 32.2-35.5 L HEMOGLOBIN CONC (BEAKER) (test code = 752) RED CELL DISTRIBUTION 16.5 % 11.7-14.4 H WIDTH (BEAKER) (test code = 412) PLATELET COUNT 254 K/CU MM 150-450 (BEAKER) (test code = 756) MEAN PLATELET VOLUME 9.9 fL 9.4-12.3 (BEAKER) (test code = 754) NUCLEATED RED BLOOD 0 /100 WBC 0-0 CELLS (BEAKER) (test code = 413) POCT-GLUCOSE [id number] 09:57:00 Test Item Value Reference Range Interpretation Comments POC-GLUCOSE METER 172 mg/dL 70-110 H : TESTED A T [facility] 6720 (BEAKER) (test code = R[place]NY [place], 1538) [address]: Hull Molder/Techni alton ID = [id number] for JEFE ALVAREZ AN FL, FLUORO, NON-SPECIFIC, UP TO 1 [id number] 09:21:38Reason for exam:- >right femur fractureFluoroscopic unit utilized for a procedure performed in the OR. No interpretation was requested. Refer to the operative report for findings. Refer to PACS for patient radiation dose information.FL fluoro non- specific up to 1 [id number] 08:50:00Interface, External Ris In - 06/21/2020 11:15 AM CDTFluoroscopic unit utilized for a procedure performed in the OR. No interpretation was requested. Refer to the operative report for findings. Referto PACS for patient radiation dose information.[facility] HospitalPrepare Leuko-Red [id number] 23:54:00 Test Item Value Reference Range Interpretation Comments CROSSMATCH (test code = 2264) COMPATIBLE Unit ABO (test code = B Pos 7081656) UNIT NUMBER (test code = [id number] 934-0) Status (test code = 3949757) [place]_TIMEINCHART Blood Bank Product (test code RED BLOOD CELLS = 2263) PRODUCT CODE (test code = V2315L40 933-2) [facility] HospitalPOCT-GLUCOSE [id number] 23:46:00 Test Item Value Reference Range Interpretation Comments POC-GLUCOSE METER 136 mg/dL 70-110 H : TESTED A T [facility] 6720 (BEAKER) (test code = RONNY Munoz [facility], 1538) [address]: Hull Molder/Techni alton ID = [id number] for HANS JOSE POCT-GLUCOSE [id number] 18:51:00 Test Item Value Reference Range Interpretation Comments POC-GLUCOSE METER 158 mg/dL 70-110 H : TESTED A T [facility] 6720 (OLIVERIO) (test code = RONNY Munoz [facility], 1538) [address]: Hull Molder/Techni alton ID = [id number] for NEDA STAHL [facility]AG[facility], MULTI, PHARM, [id number] 17:07:00Unlisted Reason for Exam - Click Yes and Enter Reason Below->No Eval for CADFINAL REPORT PROCEDURE: MYOCARDIAL PERFUSION PLANAR IMAGING (2-Day Stress/Rest)CPT CODE: 75175 INDICATION: evaluate for presence of CAD, preoperative risk stratification for orthopedic surgery CARDIOVASCULAR PROFILE:CAD History: NoneRisk Factors: Diabetes, hypertension, obesityBMI: 45.5Medications: Levothyroxine, losartan, metoprolol STRESS PROTOCOL:Pharmacologic stress was achieved with a 10-second intravenous infusion of regadenoson 0.4 mg. The radiopharmaceutical was administered 30 seconds after the start of the regadenoson infusion. IMAGING PROTOCOL:32.8 mCi of Tc-99m sestamibi was injected intravenously at peak stress, and gated planar images were obtained. Then on a separate day, 32.9 mCi of Tc-99m sestamibi was injected intravenously at rest, and gated planar imageswere obtained. Planar images were obtained due to body habitus. Image quality is generally poor, impaired due to soft tissue attenuation secondary to body habitus, as well as limited mobility due to recent fracture. REST FINDINGS:HR: 95/minBP: 128/67 mmHgPrelim. EKG: Normal sinus rhythm.Perfusion: Grossly normal in the anterior LV, but poor image quality.Wall Motion: Normal STRESS FINDINGS:HR: 107/min (68% of MPHR)BP: 118/62 mmHgPrelim. EKG: Marked ST depressions.Symptoms: Flushing (treatment not re quired).Perfusion: There is a mild severity apical perfusion defect in the LV myocardium. IMPRESSION:1. Abnormal study.2. Abnormal myocardial perfusion. There is a small size, mild severity, reversibleperfusion abnormality in the cardiac apex of the LV. While there is no severe anterior wall perfusion defect with stress, other patricia can not be adequately assessed.3. Normal resting LVEF.4.Marked softtissue attenuation is noted on all images. 5.There is no prior study for comparison. Signed: Asif Garcia MDReport Verified Date/Time: 06/20/2020 17:07:36 Reading Location: [address] Reading Room [place] Myocard imaging multi pharm [id number] 17:07:00Interface, External Ris In - 06/20/2020 5:09 PM CDTFINAL REPORT PROCEDURE: MY OCARDIAL PERFUSION PLANAR IMAGING (2-Day Stress/Rest)CPT CODE: 77369 INDICATION: evaluate for presence of CAD, preoperative risk stratification for orthopedic surgery CARDIOVASCULAR PROFILE:CAD History: NoneRisk Factors: Diabetes, hypertension, obesityBMI: 45.5Medications: Levothyroxine, losartan, metoprolol STRESS PROTOCOL:Pharmacologic stress was achieved with a 10-second intravenous infusion of regadenoson 0.4 mg. The radiopharmaceutical was administered 30 seconds after the start of the regadenoson infusion. IMAGING PROTOCOL:32.8 mCi of Tc-99m sestamibi was injected intravenously at peak stress, and gated planar images were obtained. Then on a separate day, 32.9 mCi of Tc-99m sestamibi was injected intravenously at rest, and gated planar images were obtained. Planar images were obtained due to body habitus. Image quality is generally poor, impaired due to soft tissue attenuation secondary tobody habitus, as well as limited mobility due to recent fracture. REST FINDINGS:HR: 95/minBP: 128/67 mmHgPrelim. EKG: Normal sinus rhythm.Perfusion: Grossly normal in the anterior LV, but poor image quality.Wall Motion: Normal STRESS FINDINGS:HR: 107/min (68% of MPHR)BP: 118/62 mmHgPrelim. EKG: Marked ST depressions.Symptoms: Flushing (treatment not required).Perfusion: There is a mild severity apical perfusion defect in the LV myocardium. IMPRESSION:1. Abnormal study.2. Abnormal myocardial perfusion. There is a small size, mild severity, reversible perfusion abnormality in the cardiac apex of theLV. While there is no severe anterior wall perfusion defect with stress, other patricia can not be adequately assessed.3. Normal resting LVEF.4.Marked soft tissue attenuation is noted on all images. 5.There is no prior study for comparison. Signed: Asif Garcia MDReport Verified Date/Time: 06/20/2020 17:07:36 Reading Location: [address] Reading [facility] [id number] 12:32:00 Test Item Value Reference Range Interpretation Comments POC-GLUCOSE METER 128 mg/dL 70-110 H : TESTED A T [facility] 6720 (BEAKER) (test code = [facility], 1538) [address]: Hull Molder/Techni alton ID = [id number] for NEDA KARISMELCHORMARCO ANTONIOALFREDO POCT-GLUCOSE [id number] 06:18:00 Test Item Value Reference Range Interpretation Comments POC-GLUCOSE METER 133 mg/dL 70-110 H : TESTED A T [facility] 6720 (BEAKER) (test code = [facility], 1538) [address]268: Hull Molder/Techni alton ID = [id number] for TIFFANIE HARDING Vitamin B12 and [id number] 06:10:00 Test Item Value Reference Range Interpretation Comments Vitamin B12 (test code = 467 pg/mL 551-568 4592-9) Folate (test code = 16.70 ng/mL >=7.00 2284-8) TEX (test code = TEX) Hull Molder ID - EDASI Lab Interpretation (test Normal code = 06136-9) [facility]IT[facility] B12 AND [id number] 06:10:00 Test Item Value Reference Range Interpretation Comments VITAMIN B12 (BEAKER) (test code = 467 pg/mL 213-816 774) FOLATE (BEAKER) (test code = 362) 16.70 ng/mL >=7.00 Hull Molder ID - EDASIComprehensive metabolic [id number] 06:01:00 Test Item Value Reference Range Interpretation Comments Protein, Total (test 6.9 6.0- 8.3 gm/dL code = 2885-2) Albumin (test code = 3.4 g/dL 3.5-5 L 01689-0) Alkaline Phosphatase 49 U/L 40-150 (test code = 6768-6) Total Bilirubin (test 1.1 mg/dL 0.2-1.2 code = 1975-2) Sodium (test code = 142 meq/L 962-170 4987-2) Potassium (test code = 4.4 meq/L 3.5-5.1 2823-3) Chloride (test code = 101 meq/L 98-107 2075-0) CO2 (test code = 33 meq/L 22-29 H 2028-9) BUN (test code = 28 mg/dL 7-21 H 3094-0) Creatinine (test code 0.81 mg/dL 0.57-1.25 = 2160-0) Glucose (test code = 131 mg/dL 70-105 H 2345-7) Calcium (test code = 9.1 mg/dL 8.4-10.2 50112-0) AST (test code = 15 U/L 5-34 1920-8) ALT (test code = 10 U/L 6-55 1742-6) EGFR (test code = 71 mL/min/1.73 [place] [address]-1) NOT ACCURATE CREATININE CLEARANCE IN PREDICTING GLOMERULAR FILTRATION RATE . ESTIMATED GFR I S NOT APPLICABLE FOR DIALYSIS PATIENTS. TEX (test code = TEX) Hull Molder ID - EDASI Lab Interpretation Abnormal (test code = 57795-4) [facility] Hospital[facility]esium2020-[facility] 06:01:00 Test Item Value Reference Range Interpretation Comments Magnesium (test code = 1.7 mg/dL 1.6-2.6 85511-9) TEX (test code = TEX) Hull Molder ID - EDASI Lab Interpretation (test Normal code = 18914-1) [facility] HospitalPhosphorus2020-10-06 06:01:00 Test Item Value Reference Range Interpretation Comments Phosphorus (test code = 2.4 mg/dL 2.3-4.7 7-1) TEX (test code = TEX) Hull Molder ID - EDASI Lab Interpretation (test Normal code = 83763-7) [facility] HospitalPHOSPHORUS2020-10-06 06:01:00 Test Item Value Reference Range Interpretation Comments PHOSPHORUS (BEAKER) (test code = 2.4 mg/dL 2.3-4.7 604) Hull Molder ID - [id number] 06:01:00 Test Item Value Reference Range Interpretation Comments MAGNESIUM (BEAKER) (test code = 1.7 mg/dL 1.6-2.6 627) Hull Molder ID - EDASICOMPREHENSIVE METABOLIC [id number] 06:01:00 Test Item Value Reference Range Interpretation Comments TOTAL PROTEIN 6.9 gm/dL 6.0-8.3 (BEAKER) (test code = 770) ALBUMIN (BEAKER) 3.4 g/dL 3.5-5.0 L (test code = 1145) ALKALINE PHOSPHATASE 49 U/L 40-150 (BEAKER) (test code = 346) BILIRUBIN TOTAL 1.1 mg/dL 0.2-1.2 (BEAKER) (test code = 377) SODIUM (BEAKER) (test 142 meq/L 136-145 code = 381) POTASSIUM (BEAKER) 4.4 meq/L 3.5-5.1 (test code = 379) CHLORIDE (BEAKER) 101 meq/L 98-107 (test code = 382) CO2 (BEAKER) (test 33 meq/L 22-29 H code = 355) BLOOD UREA NITROGEN 28 mg/dL 7-21 H (BEAKER) (test code = 354) CREATININE (BEAKER) 0.81 mg/dL 0.57-1.25 (test code = 358) GLUCOSE RANDOM 131 mg/dL 70-105 H (BEAKER) (test code = 652) CALCIUM (BEAKER) 9.1 mg/dL 8.4-10.2 (test code = 697) AST (SGOT) (BEAKER) 15 U/L 5-34 (test code = 353) ALT (SGPT) (BEAKER) 10 U/L 6-55 (test code = 347) EGFR (BEAKER) (test 71 mL/min/1.73 ESTIMA MARION GFR IS code = 1092) sq m NOT ACCURATE CREATININE CLEARANCE IN PREDICTING GLOMERULAR FILTRATION RATE . ESTIMATED GFR I S NOT APPLICABLE FOR DIALYSIS PATIEN TS. Hull Molder ID - EDASICalcium, [id number] 05:15:00 Test Item Value Reference Range Interpretation Comments Calcium, Ion (test code = 1993-) 1.15 mmol/L 1.12-1.27 pH, Blood (test code = 79168-4) 7.42 [facility] HospitalCAL[facility], [id number] 05:15:00 Test Item Value Reference Range Interpretation Comments CALCIUM IONIZED (BEAKER) (test 1.15 mmol/L 1.12-1.27 code = 698) PH, BLOOD (BEAKER) (test code = 7.42 1810) CBC with platelet count + automated [id number] 05:10:00 Test Item Value Reference Range Interpretation Comments WBC (test code = 6690-2) 10.8 3.5- 10.5 K/L H RBC (test code = 789-8) 2.91 3.93- 5.22 M/L L MCHC (test code = 786-4) 30.7 32.2- 35.5 GM/DL L Hematocrit (test code = 4544-3) 29.3 % 34.1-44.9 L MCV (test code = 787-2) 100.7 fL 79.4-94.8 H MCH (test code = 785-6) 30.9 pg 25.6-32.2 RDW (test code = 788-0) 16.7 % 11.7-14.4 H Platelets (test code = 777-3) 184 150- 450 K/CU MM MPV (test code = 50296-0) 9.7 fL 9.4-12.3 nRBC (test code = 413) 0 0- 0 /100 WBC % Neutros (test code = 429) 77 % % Lymphs (test code = 430) 10 % % Monos (test code = 431) 8 % % Eos (test code = 432) 4 % % Baso (test code = 437) 1 % # Neutros (test code = 670) 8.27 1.56- 6.13 K/L H # Lymphs (test code = 414) 1.08 1.18- 3.74 K/L L # Monos (test code = 415) 0.81 0.24- 0.36 K/L H # Eos (test code = 416) 0.46 0.04- 0.36 K/L H # Baso (test code = 417) 0.05 0.01- 0.08 K/L Immature Granulocytes-Relative 1 % 0-1 (test code = 2801) Lab Interpretation (test code = Abnormal 83202-4) [facility] W/PLT COUNT & AUTO [id number] 05:10:00 Test Item Value Reference Range Interpretation Comments WHITE BLOOD CELL COUNT (BEAKER) 10.8 K/ L 3.5-10.5 H (test code = 775) RED BLOOD CELL COUNT (BEAKER) 2.91 M/ L 3.93-5.22 L (test code = 761) HEMOGLOBIN (BEAKER) (test code = 9.0 GM/DL 11.2-15.7 L 410) HEMATOCRIT (BEAKER) (test code = 29.3 % 34.1-44.9 L 411) MEAN CORPUSCULAR VOLUME (BEAKER) 100.7 fL 79.4-94.8 H (test code = 753) MEAN CORPUSCULAR HEMOGLOBIN 30.9 pg 25.6-32.2 (BEAKER) (test code = 751) MEAN CORPUSCULAR HEMOGLOBIN CONC 30.7 GM/DL 32.2-35.5 L (BEAKER) (test code = 752) RED CELL DISTRIBUTION WIDTH 16.7 % 11.7-14.4 H (BEAKER) (test code = 412) PLATELET COUNT (BEAKER) (test 184 K/CU MM 150-450 code = 756) MEAN PLATELET VOLUME (BEAKER) 9.7 fL 9.4-12.3 (test code = 754) NUCLEATED RED BLOOD CELLS 0 /100 WBC 0-0 (BEAKER) (test code = 413) NEUTROPHILS RELATIVE PERCENT 77 % (BEAKER) (test code = 429) LYMPHOCYTES RELATIVE PERCENT 10 % (BEAKER) (test code = 430) MONOCYTES RELATIVE PERCENT 8 % (BEAKER) (test code = 431) EOSINOPHILS RELATIVE PERCENT 4 % (BEAKER) (test code = 432) BASOPHILS RELATIVE PERCENT 1 % (BEAKER) (test code = 437) NEUTROPHILS ABSOLUTE COUNT 8.27 K/ L 1.56-6.13 H (BEAKER) (test code = 670) LYMPHOCYTES ABSOLUTE COUNT 1.08 K/ L 1.18-3.74 L (BEAKER) (test code = 414) MONOCYTES ABSOLUTE COUNT (BEAKER) 0.81 K/ L 0.24-0.36 H (test code = 415) EOSINOPHILS ABSOLUTE COUNT 0.46 K/ L 0.04-0.36 H (BEAKER) (test code = 416) BASOPHILS ABSOLUTE COUNT (BEAKER) 0.05 K/ L 0.01-0.08 (test code = 417) IMMATURE GRANULOCYTES-RELATIVE 1 % 0-1 PERCENT (BEAKER) (test code = 2801) POCT-GLUCOSE [id number] 21:18:00 Test Item Value Reference Range Interpretation Comments POC-GLUCOSE METER 105 mg/dL 70-110 : TESTED A T [facility] 6720 (BEAKER) (test code = [facility], 1538) 37385: Hull Molder/Techni alton ID = [id number] for TIFFANIE HARDING POCT-GLUCOSE [id number] 13:16:00 Test Item Value Reference Range Interpretation Comments POC-GLUCOSE METER 131 mg/dL 70-110 H : TESTED A T [facility] 6720 (BEAKER) (test code = [employer] [facility], 1538) 45096: Hull Molder/Techni alton ID = [id number] for Wi Ashwin matthews 2D Echo W/Doppler(CW/PW/Color)2020-06-19 12:42:42Ejection FractionSLEH ECHO HEARTLAB MKCKESSON CPACSInterface, External Ris In - 06/19/2020 12:42 PM C DTTransthoracic Echocardiography Report (TTE) Demographics Patient Name LETICIA WADE Date ofStudy 06/17/2020 FIORELLA Gender Female Visit Number [id number] Race Unknown Room Number 1523 Number Date of 1955 Referring Physician HERVE ZEE Age 64 year(s) Netsuite Developer Lebron Reyna Aircraft Log Clerk Viktor Prater Interpreting Physician SALIMA Damian Procedure Type of Study TTE procedure:2DECHO W DOPPLER(CW/PW/COLOR) (Routine) Indications:Shortness of breath and pre surgical clearance.Clinical HistoryHGB 8.5HCT 27.7 %HTN, DM, OBESITY, COPD, HX OF COVID, FEMUR FRACTURE, VTEHeight: 69 inches Weight: 139.71 kg (308 lbs) BSA: 2.48 m^2 BMI: 45.48kg/m^2HR: 85 bpm BP: 138/73 mmHg Summary The left ventricle is chamber size (by PSLAX dimension) is normal (female - LVIDd 3.8-5.2cm) . Global LV systolic function normal . Estimated LVEF by qualitative assessment is normal (55-60%) . Estimated peak systolic PA pressure is 35-40 mmHg . No evidence of pericardial effusion. Signature Findings Technical Quality: Technically difficult exam. Left Ventricle The left ventricle is chamber size (by PSLAXdimension) is normal (female - LVIDd 3.8- 5.2cm) . Normal LV wall thickness. Global LV systolic function normal . Estimated LVEF by qualitative assessment is normal (55-60%) . Left Atrium LA size is normal . Right Ventricle Normal right ventricle structure and function. Right Atrium Normal right atrium. Aortic Valve Mild AoV cusp thickening. Mitral Valve Normal MV structure. Tricuspid Valve Mild tricuspid regurgitation. Estimated peak systolic PA pressure is 35-40 mmHg . Pulmonic Valve PV is not well visualized. Aorta Aortic root size (SInus of Valsalva diameter) is normal . PericardiumNo evidence of pericardial effusion. IVC/SVC/PA/PV/Pleural The estimated RA pressure by [...] Diameter: 2.04 cm Aorta Ao Root S ofVal.: 3.49 cm Doppler/Quantitative Measurements Aortic Valve Peak Velocity: 1.56 m/s Mean Velocity: 1.07 m/s Peak Gradient: 9.73 mmHg Mean Gradient: 5.22 mmHg AV Area (continuity): 3.15 cm^2 AV VTI: 33.99 cm AV DVI: 0.96 LVOT Peak Velocity: 1.51 m/s Peak Gradient: 9.09 mmHg Mean Velocity: 0.95 m/s Mean Gradient: 4.42 mmHg LVOT Diameter: 2.04 cm LVOT VTI: 32.74 cm LVOT Area: 3.27 cm^2 LVOT SV:106.96 ml LVOT CO: 9.09 l/min LVOT CI: 3.67 l/min/m^2 Tricuspid Valve TR Velocity: 2.89 m/s TR Gradient: 33.3 mmHg[facility]2/RT-PCR (Asymptomatic ONLY)2020-06-19 11:25:00 Test Item Value Reference Range Interpretation Comments SARS-COV2/RT-PCR Negative Not Detected, (test code = Negative, See 86730-9) external report for linked test SARS-COV-2 [facility] PERFORMING LAB (test code = 79492-6) TEX (test code = Negative result for this TEX) test determines that SARS-CoV-2 RNA was not present in the specimen above the Limit of Detection (LOD). However, Negative results do not preclude SARS-CoV-2 infection and should not be used as the sole basis for treatment or patient management decisions. Negative results must be combined with clinical observations, patient history, and epidemiological information. A false negative result may occur if a specimen is improperly collected, transported or handled. A false negative result should be considered if patient's recent exposures or clinical presentation indicate that COVID-19 (SARS-CoV-2) is likely and diagnostic tests for other causes of illness are negative. Re-testing should be considered in cases of suspected [...] Food and Drug Administration (FDA) cleared or approved. This is a modified version of an approved [...] of the Act. Fact Sheet for Healthcare Providers:https://www.[employer]/sites/default/f roselia/product/documents/F act_Sheet_HC_Providers_L dxc_TAUW-BtK-9.pdf Fact Sheet for Healthcare Patients:https://www.CIRQY/sites/default/fi les/product/documents/Fa ct_Sheet_Patients_Lyra_S ARS-CoV-2.pdf Performing Laboratory:[place] [address] [address]ARS[address]/RT-PCR ([facility])2020-06-19 11:25:00 Test Item Value Reference Range Interpretation Comments SARS-COV2/RT-PCR (test Negative Not Detected, Negative, code = 0404001) See external report for linked test SARS-COV-2 PERFORMING LAB [facility] (test code = 6780292) Negative result for this test determines that SARS-CoV-2 RNA was not present in the specimen above the Limit of Detection (LOD). However, Negative results do not preclude SARS-CoV-2 infection and should not be used as the sole basis for treatment or patient management decisions. Negative results mustbe combined with clinical observations, patient history, and epidemiological information. A false negative result may occur if a specimen is improperly collected, transported or handled. A false negative result should be considered if patient's recent exposures or clinical presentation indicate that COVID-19 (SARS-CoV-2) is likely and diagnostic tests for other causes of illness are negative. Re-testing should be considered in cases of suspected false negatives.The limit of detection for this assay is 800 copies/mL.This SARS CoV-2 test is a real-time RT-PCR test intended for the qualitative detection of nucleic acid from SARS-CoV-2 in a nasopharyngeal swab specimen collected from individuals susp ected of COVID-19 by their healthcare provider.This test has not been Food and Drug Administration (FDA) cleared or approved. This is a modified version of an approved [...] is revoked under Section 564(g) of the Act.Fact Sheet for Healthcare Providers:https://www.CityOdds/sites/default/files/product/documents/Fact_Shee f_OA_Cspwuyngp_Asey_GMSZ-BrC-3.pdfFact Sheet for Healthcare Patients:https://www.[employer]/sites/default/files/product/ documents/Yqjc_Bqzuz_Jwbddrnw_Uxpe_TVWU-XtM-1.pdfPerforming Laboratory:[facility], [place] [address]JFB 12 [id number] 06:41:47Interface, External Ris In - 06/19/2020 6:41 AM CDTVentricular Rate 88 BPMAtrial Rate 88 BPMP-R Interval 146 msQRS Duration 88 msQ-T Interval 388 msQTC Calculation(Bazett) 469 msP [place] 48 degreesR [place] 8 degreesT [place] 104 degreesNormal sinus rhythmMinimal voltage criteria for LVH, may be normal varian tAbnormal QRS-T angle, consider primary T wave abnormalityAbnormal ECGNo previous ECGs availableConfirmed by MD BINH, SUPA Fields ([id number]) on 06/19/2020 6:41:45 [facility]PO[facility] [id number] 05:59:00 Test Item Value Reference Range Interpretation Comments POC-GLUCOSE METER 122 mg/dL 70-110 H : TESTED A T [facility] 6720 (BEAKER) (test code = [facility] [place], 1538) [address]: Hull Molder/Techni alton ID = [id number] for ELIAN ZENG [id number] 04:43:00 Test Item Value Reference Range Interpretation Comments PHOSPHORUS (BEAKER) (test code = 2.9 mg/dL 2.3-4.7 604) Hull Molder ID - [id number] 04:43:00 Test Item Value Reference Range Interpretation Comments MAGNESIUM (BEAKER) (test code = 1.9 mg/dL 1.6-2.6 627) Hull Molder ID - EDASICOMPREHENSIVE METABOLIC [id number] 04:43:00 Test Item Value Reference Range Interpretation Comments TOTAL PROTEIN 6.4 gm/dL 6.0-8.3 (BEAKER) (test code = 770) ALBUMIN (BEAKER) 3.2 g/dL 3.5-5.0 L (test code = 1145) ALKALINE PHOSPHATASE 43 U/L 40-150 (BEAKER) (test code = 346) BILIRUBIN TOTAL 0.7 mg/dL 0.2-1.2 (BEAKER) (test code = 377) SODIUM (BEAKER) (test 142 meq/L 136-145 code = 381) POTASSIUM (BEAKER) 4.1 meq/L 3.5-5.1 (test code = 379) CHLORIDE (BEAKER) 98 meq/L 98-107 (test code = 382) CO2 (BEAKER) (test 38 meq/L 22-29 H code = 355) BLOOD UREA NITROGEN 45 mg/dL 7-21 H (BEAKER) (test code = 354) CREATININE (BEAKER) 1.12 mg/dL 0.57-1.25 (test code = 358) GLUCOSE RANDOM 112 mg/dL 70-105 H (BEAKER) (test code = 652) CALCIUM (BEAKER) 8.6 mg/dL 8.4-10.2 (test code = 697) AST (SGOT) (BEAKER) 13 U/L 5-34 (test code = 353) ALT (SGPT) (BEAKER) 8 U/L 6-55 (test code = 347) EGFR (BEAKER) (test 49 mL/min/1.73 ESTIMA MARION GFR IS code = 1092) sq m NOT ACCURATE CREATININE CLEARANCE IN PREDICTING GLOMERULAR FILTRATION RATE . ESTIMATED GFR I S NOT APPLICABLE FOR DIALYSIS PATIEN TS. Hull Molder ID - EDASICBC W/PLT COUNT & AUTO [id number] 04:20:00 Test Item Value Reference Range Interpretation Comments WHITE BLOOD CELL COUNT (BEAKER) 9.1 K/ L 3.5-10.5 (test code = 775) RED BLOOD CELL COUNT (BEAKER) 2.47 M/ L 3.93-5.22 L (test code = 761) HEMOGLOBIN (BEAKER) (test code = 7.7 GM/DL 11.2-15.7 L 410) HEMATOCRIT (BEAKER) (test code = 25.8 % 34.1-44.9 L 411) MEAN CORPUSCULAR VOLUME (BEAKER) 104.5 fL 79.4-94.8 H (test code = 753) MEAN CORPUSCULAR HEMOGLOBIN 31.2 pg 25.6-32.2 (BEAKER) (test code = 751) MEAN CORPUSCULAR HEMOGLOBIN CONC 29.8 GM/DL 32.2-35.5 L (BEAKER) (test code = 752) RED CELL DISTRIBUTION WIDTH 16.0 % 11.7-14.4 H (BEAKER) (test code = 412) PLATELET COUNT (BEAKER) (test 187 K/CU MM 150-450 code = 756) MEAN PLATELET VOLUME (BEAKER) 9.6 fL 9.4-12.3 (test code = 754) NUCLEATED RED BLOOD CELLS 0 /100 WBC 0-0 (BEAKER) (test code = 413) NEUTROPHILS RELATIVE PERCENT 72 % (BEAKER) (test code = 429) LYMPHOCYTES RELATIVE PERCENT 13 % (BEAKER) (test code = 430) MONOCYTES RELATIVE PERCENT 7 % (BEAKER) (test code = 431) EOSINOPHILS RELATIVE PERCENT 6 % (BEAKER) (test code = 432) BASOPHILS RELATIVE PERCENT 1 % (BEAKER) (test code = 437) NEUTROPHILS ABSOLUTE COUNT 6.55 K/ L 1.56-6.13 H (BEAKER) (test code = 670) LYMPHOCYTES ABSOLUTE COUNT 1.21 K/ L 1.18-3.74 (BEAKER) (test code = 414) MONOCYTES ABSOLUTE COUNT (BEAKER) 0.67 K/ L 0.24-0.36 H (test code = 415) EOSINOPHILS ABSOLUTE COUNT 0.55 K/ L 0.04-0.36 H (BEAKER) (test code = 416) BASOPHILS ABSOLUTE COUNT (BEAKER) 0.06 K/ L 0.01-0.08 (test code = 417) IMMATURE GRANULOCYTES-RELATIVE 1 % 0-1 PERCENT (BEAKER) (test code = 2801) CALCIUM, [id number] 04:11:00 Test Item Value Reference Range Interpretation Comments CALCIUM IONIZED (BEAKER) (test 1.16 mmol/L 1.12-1.27 code = 698) PH, BLOOD (BEAKER) (test code = 7.37 1810) ADAN, [id number] 01:54:00 Test Item Value Reference Range Interpretation Comments Rh Factor (test code = 2589) POS ABO Grouping (test code = 2588) B [facility]PO[facility] [id number] 21:49:00 Test Item Value Reference Range Interpretation Comments POC-GLUCOSE METER 113 mg/dL 70-110 H : TESTED A T [facility] 6720 (BEAKER) (test code = [facility] [employer] [facility], 1538) [address]: Hull Molder/Techni alton ID = [id number] for ELIAN ZENG Type and screen, [id number] 17:47:00 Test Item Value Reference Range Interpretation Comments ABO/RH AUTOMATED (BEAKER) (test B POSITIVE code = 2260) Ab Scrn (test code = 890-4) NEGATIVE [facility]PO[facility] [id number] 16:10:00 Test Item Value Reference Range Interpretation Comments POC-GLUCOSE METER 96 mg/dL 70-110 : TESTED A T [facility] 6720 (BEAKER) (test code = [facility] Tammy [facility], 1538) [address]: Hull Molder/Techni alton ID = [id number] for CAMERON PIERCE Hemoglobin [id number] 11:26:00 Test Item Value Reference Range Interpretation Comments Hemoglobin A1C (test code = 4548-4) 5.4 % 4.3-6.1 Lab Interpretation (test code = Normal 20840-0) [facility] HospitalHEMOGLOBIN [id number] 11:26:00 Test Item Value Reference Range Interpretation Comments HEMOGLOBIN A1C ([facility]) (test code = 5.4 % 4.3-6.1 368) POCT-GLUCOSE [id number] 11:19:00 Test Item Value Reference Range Interpretation Comments POC-GLUCOSE METER 135 mg/dL 70-110 H : TESTED A T [facility] 6720 (BEAKER) (test code = [employer] [facility], 1538) 10634: Hull Molder/Techni alton ID = [id number] for CAMERON HILL Troponin [id number] 10:05:00 Test Item Value Reference Range Interpretation Comments Troponin I (test code = 0.02 ng/mL 0-0.03 64401-0) TEX (test code = TEX) Troponin I (TnI) levels must be interpreted in the context of the presenting symptoms and the clinical findings. Elevated TnI levels indicate myocardial damage, but are not specific for ischemic heart disease. Elevated TnI levels are seen in patients with other cardiac conditions (including myocarditis and congestive heart failure), and slight TnI elevations occur in patients with other conditions, including sepsis, renal failure, acidosis, acute neurological disease, and persistent tachyarrhythmia.Opera tor ID - ROSIANG Lab Interpretation (test Normal code = 01178-8) [facility] HospitalTROPONIN [id number] 10:05:00 Test Item Value Reference Range Interpretation Comments TROPONIN I (BEAKER) (test code = 0.02 ng/mL 0.00-0.03 397) Troponin I (TnI) levels must be interpreted in the context of the presenting symptoms and the clinical findings. Elevated TnI levels indicate myocardial damage, but are not specific for ischemic heart disease. Elevated TnI levels are seen in patients with other cardiac conditions (including myocarditis and congestive heart failure), and slight TnI elevations occur in patients with other conditions, including sepsis, renal failure, acidosis, acute neurological disease, and persistent tachyarrhythmia.Hull Molder ID - ROSIANGPOCT-GLUCOSE METER 2020-06-18 08:09:00 Test Item Value Reference Range Interpretation Comments POC-GLUCOSE METER 120 mg/dL 70-110 H : TESTED A T [facility] 6720 (BEAKER) (test code = [employer] [facility], 1538) 85252: Hull Molder/Techni alton ID = [id number] for CAMERON HILL T4, [id number] 08:07:00 Test Item Value Reference Range Interpretation Comments Free T4 (test code = <0.40 0.7-1.48 L 3024-7) TEX (test code = TEX) Hull Molder ID - ROSIANG Lab Interpretation (test Abnormal code = 38942-6) [facility] HospitalT4, [id number] 08:07:00 Test Item Value Reference Range Interpretation Comments FREE T4 (BEAKER) (test code = 655) < ng/dL 0.70-1.48 L Hull Molder ID - ROSIANGTSH/Free T4 If [id number] 07:15:00 Test Item Value Reference Range Interpretation Comments TSH (test code = 76.986 0.350- 4.940 uIU/mL H 70239-3) TEX (test code = TEX) Hull Molder ID - EDASI Lab Interpretation (test Abnormal code = 18898-0) [facility] HospitalTSH/FREE T4 IF [id number] 07:15:00 Test Item Value Reference Range Interpretation Comments THYROID STIMULATING HORMONE 76.986 uIU/mL 0.350-4.940 H (BEAKER) (test code = 772) Hull Molder ID - [id number] 07:00:00 Test Item Value Reference Range Interpretation Comments PHOSPHORUS (BEAKER) (test code = 3.5 mg/dL 2.3-4.7 604) [facility] ID - [id number] 07:00:00 Test Item Value Reference Range Interpretation Comments MAGNESIUM (BEAKER) (test code = 1.9 mg/dL 1.6-2.6 627) [facility] ID - EDASICOMPREHENSIVE METABOLIC [id number] 07:00:00 Test Item Value Reference Range Interpretation Comments TOTAL PROTEIN 6.7 gm/dL 6.0-8.3 (BEAKER) (test code = 770) ALBUMIN (BEAKER) 3.3 g/dL 3.5-5.0 L (test code = 1145) ALKALINE PHOSPHATASE 46 U/L 40-150 (BEAKER) (test code = 346) BILIRUBIN TOTAL 0.6 mg/dL 0.2-1.2 (BEAKER) (test code = 377) SODIUM (BEAKER) (test 141 meq/L 136-145 code = 381) POTASSIUM (BEAKER) 4.1 meq/L 3.5-5.1 (test code = 379) CHLORIDE (BEAKER) 95 meq/L 98-107 L (test code = 382) CO2 (BEAKER) (test 37 meq/L 22-29 H code = 355) BLOOD UREA NITROGEN 44 mg/dL 7-21 H (BEAKER) (test code = 354) CREATININE (BEAKER) 1.02 mg/dL 0.57-1.25 (test code = 358) GLUCOSE RANDOM 103 mg/dL 70-105 (BEAKER) (test code = 652) CALCIUM (BEAKER) 9.1 mg/dL 8.4-10.2 (test code = 697) AST (SGOT) (BEAKER) 15 U/L 5-34 (test code = 353) ALT (SGPT) (BEAKER) 10 U/L 6-55 (test code = 347) EGFR (BEAKER) (test 55 mL/min/1.73 ESTIMA MARION GFR IS code = 1092) sq m NOT ACCURATE CREATININE CLEARANCE IN PREDICTING GLOMERULAR FILTRATION RATE . ESTIMATED GFR I S NOT APPLICABLE FOR DIALYSIS PATIEN TS. Hull Molder ID - ELIASITROPONIN [id number] 06:52:00 Test Item Value Reference Range Interpretation Comments TROPONIN I (BEAKER) (test code = 0.02 ng/mL 0.00-0.03 397) Troponin I (TnI) levels must be interpreted in the context of the presenting symptoms and the clinical findings. Elevated TnI levels indicate myocardial damage, but are not specific for ischemic heart disease. Elevated TnI levels are seen in patients with other cardiac conditions (including myocarditis and congestive heart failure), and slight TnI elevations occur in patients with other conditions, including sepsis, renal failure, acidosis, acute neurological disease, and persistent tachyarrhythmia.Hull Molder ID - EDASIB-type Natriuretic Factor (BNP)2020-06-18 06:50:00 Test Item Value Reference Range Interpretation Comments BNP (test code = 48641-2) 35 pg/mL 0-100 TEX (test code = TEX) Hull Molder ID - EDASI Lab Interpretation (test Normal code = 52020-6) [facility]2020-06-18 06:50:00 Test Item Value Reference Range Interpretation Comments B-TYPE NATRIURETIC PEPTIDE (BEAKER) 35 pg/mL 0-100 (test code = 700) Hull Molder ID - EDASICBC W/PLT COUNT & AUTO [id number] 06:33:00 Test Item Value Reference Range Interpretation Comments WHITE BLOOD CELL COUNT (BEAKER) 11.3 K/ L 3.5-10.5 H (test code = 775) RED BLOOD CELL COUNT (BEAKER) 2.67 M/ L 3.93-5.22 L (test code = 761) HEMOGLOBIN (BEAKER) (test code = 8.4 GM/DL 11.2-15.7 L 410) HEMATOCRIT (BEAKER) (test code = 27.5 % 34.1-44.9 L 411) MEAN CORPUSCULAR VOLUME (BEAKER) 103.0 fL 79.4-94.8 H (test code = 753) MEAN CORPUSCULAR HEMOGLOBIN 31.5 pg 25.6-32.2 (BEAKER) (test code = 751) MEAN CORPUSCULAR HEMOGLOBIN CONC 30.5 GM/DL 32.2-35.5 L (BEAKER) (test code = 752) RED CELL DISTRIBUTION WIDTH 16.0 % 11.7-14.4 H (BEAKER) (test code = 412) PLATELET COUNT (BEAKER) (test 207 K/CU MM 150-450 code = 756) MEAN PLATELET VOLUME (BEAKER) 10.1 fL 9.4-12.3 (test code = 754) NUCLEATED RED BLOOD CELLS 0 /100 WBC 0-0 (BEAKER) (test code = 413) NEUTROPHILS RELATIVE PERCENT 76 % (BEAKER) (test code = 429) LYMPHOCYTES RELATIVE PERCENT 11 % (BEAKER) (test code = 430) MONOCYTES RELATIVE PERCENT 9 % (BEAKER) (test code = 431) EOSINOPHILS RELATIVE PERCENT 3 % (BEAKER) (test code = 432) BASOPHILS RELATIVE PERCENT 1 % (BEAKER) (test code = 437) NEUTROPHILS ABSOLUTE COUNT 8.54 K/ L 1.56-6.13 H (BEAKER) (test code = 670) LYMPHOCYTES ABSOLUTE COUNT 1.19 K/ L 1.18-3.74 (BEAKER) (test code = 414) MONOCYTES ABSOLUTE COUNT (BEAKER) 1.05 K/ L 0.24-0.36 H (test code = 415) EOSINOPHILS ABSOLUTE COUNT 0.37 K/ L 0.04-0.36 H (BEAKER) (test code = 416) BASOPHILS ABSOLUTE COUNT (BEAKER) 0.06 K/ L 0.01-0.08 (test code = 417) IMMATURE GRANULOCYTES-RELATIVE 1 % 0-1 PERCENT (BEAKER) (test code = 2801) CALCIUM, [id number] 05:58:00 Test Item Value Reference Range Interpretation Comments CALCIUM IONIZED (BEAKER) (test 1.14 mmol/L 1.12-1.27 code = 698) PH, BLOOD (BEAKER) (test code = 7.36 1810) POCT-GLUCOSE [id number] 21:55:00 Test Item Value Reference Range Interpretation Comments POC-GLUCOSE METER 187 mg/dL 70-110 H : TESTED A T [facility] 6720 (BEAKER) (test code = [place], 1538) [address]: Hull Molder/Techni alton ID = [id number] for ELIAN ZENG COMPREHENSIVE METABOLIC [id number] 21:39:00 Test Item Value Reference Range Interpretation Comments TOTAL PROTEIN 7.0 gm/dL 6.0-8.3 Specimen moder ately (BEAKER) (test code = hemoly zed 770) ALBUMIN (BEAKER) 3.3 g/dL 3.5-5.0 L Specimen mo derately (test code = 1145) hemolyzed ALKALINE PHOSPHATASE 46 U/L 40-150 (BEAKER) (test code = 346) BILIRUBIN TOTAL 0.5 mg/dL 0.2-1.2 Specimen mod erately (BEAKER) (test code = hemoly zed 377) SODIUM (BEAKER) (test 141 meq/L 136-145 code = 381) POTASSIUM (BEAKER) 4.7 meq/L 3.5-5.1 Specimen moderately (test code = 379) hemolyzed CHLORIDE (BEAKER) 95 meq/L 98-107 L (test code = 382) CO2 (BEAKER) (test 35 meq/L 22-29 H code = 355) BLOOD UREA NITROGEN 48 mg/dL 7-21 H (BEAKER) (test code = 354) CREATININE (BEAKER) 1.25 mg/dL 0.57-1.25 Specimen moderately (test code = 358) hemolyzed GLUCOSE RANDOM 179 mg/dL 70-105 H (BEAKER) (test code = 652) CALCIUM (BEAKER) 8.7 mg/dL 8.4-10.2 (test code = 697) AST (SGOT) (BEAKER) 29 U/L 5-34 Specimen moderately (test code = 353) hemolyzed ALT (SGPT) (BEAKER) 11 U/L 6-55 Specimen moderately (test code = 347) hemolyzed EGFR (BEAKER) (test 43 mL/min/1.73 ESTIMA MARION GFR IS code = 1092) sq m NOT ACCURATE CREATININE CLEARANCE IN PREDICTING GLOMERULAR FILTRATION RATE . ESTIMATED GFR I S NOT APPLICABLE FOR DIALYSIS PATIEN TS. Hull Molder ID - DBCBC W/PLT COUNT & AUTO [id number] 21:23:00 Test Item Value Reference Range Interpretation Comments WHITE BLOOD CELL COUNT (BEAKER) 13.6 K/ L 3.5-10.5 H (test code = 775) RED BLOOD CELL COUNT (BEAKER) 2.69 M/ L 3.93-5.22 L (test code = 761) HEMOGLOBIN (BEAKER) (test code = 8.5 GM/DL 11.2-15.7 L 410) HEMATOCRIT (BEAKER) (test code = 27.7 % 34.1-44.9 L 411) MEAN CORPUSCULAR VOLUME (BEAKER) 103.0 fL 79.4-94.8 H (test code = 753) MEAN CORPUSCULAR HEMOGLOBIN 31.6 pg 25.6-32.2 (BEAKER) (test code = 751) MEAN CORPUSCULAR HEMOGLOBIN CONC 30.7 GM/DL 32.2-35.5 L (BEAKER) (test code = 752) RED CELL DISTRIBUTION WIDTH 15.9 % 11.7-14.4 H (BEAKER) (test code = 412) PLATELET COUNT (BEAKER) (test 204 K/CU MM 150-450 code = 756) MEAN PLATELET VOLUME (BEAKER) 10.2 fL 9.4-12.3 (test code = 754) NUCLEATED RED BLOOD CELLS 0 /100 WBC 0-0 (BEAKER) (test code = 413) NEUTROPHILS RELATIVE PERCENT 81 % (BEAKER) (test code = 429) LYMPHOCYTES RELATIVE PERCENT 9 % (BEAKER) (test code = 430) MONOCYTES RELATIVE PERCENT 9 % (BEAKER) (test code = 431) EOSINOPHILS RELATIVE PERCENT 1 % (BEAKER) (test code = 432) BASOPHILS RELATIVE PERCENT 0 % (BEAKER) (test code = 437) NEUTROPHILS ABSOLUTE COUNT 11.03 K/ L 1.56-6.13 H (BEAKER) (test code = 670) LYMPHOCYTES ABSOLUTE COUNT 1.18 K/ L 1.18-3.74 (BEAKER) (test code = 414) MONOCYTES ABSOLUTE COUNT (BEAKER) 1.15 K/ L 0.24-0.36 H (test code = 415) EOSINOPHILS ABSOLUTE COUNT 0.08 K/ L 0.04-0.36 (BEAKER) (test code = 416) BASOPHILS ABSOLUTE COUNT (BEAKER) 0.05 K/ L 0.01-0.08 (test code = 417) IMMATURE GRANULOCYTES-RELATIVE 1 % 0-1 PERCENT (BEAKER) (test code = 2803) STOOL CULTURE + SHIGA [id number] 10:48:00 Test Item Value Reference Range Interpretation Comments CULTURE ([facility]) No Salmonella, Shigella (test code = 1095) or Campylobacter isolated Unable to test for Shiga Toxin 1 due to insufficient growth of specimen.Unable to test for Shiga Toxin 2 due to insufficient growth of specimen.STOOL PATH [id number] 13:49:00 Test Item Value Reference Range Interpretation Comments PATHOGEN EXAM CHARGED ([facility]) (test Done code = 2381) POCT-GLUCOSE [id number] 11:36:00 Test Item Value Reference Range Interpretation Comments POC-GLUCOSE METER 106 mg/dL 70-110 TESTED AT [facility] 6720 ([facility]) (test code = RONNY Munoz [facility] 1538) [address] POCT-GLUCOSE [id number] 08:21:00 Test Item Value Reference Range Interpretation Comments POC-GLUCOSE METER 110 mg/dL 70-110 TESTED AT [facility] 6720 ([facility]) (test code = RONNY Munoz [facility] 1538) [address] [id number] 05:17:00 Test Item Value Reference Range Interpretation Comments PHOSPHORUS ([facility]) (test code = 3.6 mg/dL 2.3-4.7 604) [id number] 05:17:00 Test Item Value Reference Range Interpretation Comments MAGNESIUM (BEAKER) (test code = 1.6 mg/dL 1.6-2.6 627) BASIC METABOLIC [id number] 05:17:00 Test Item Value Reference Range Interpretation [...] PATIEN TS. CBC W/PLT COUNT & AUTO [id number] 05:09:00 Test Item Value Reference Range Interpretation [...] L 0.00-0.20 (test code = 417) 0.00PROTHROMBIN [id number] 04:57:00 Test Item Value Reference Range Interpretation [...] POC-GLUCOSE METER 100 mg/dL 70-110 TESTED AT [facility] 6720 ([facility]) (test code = RONNY AQUINO 7928) [address] BASIC METABOLIC [id number] 18:30:00 Test Item Value Reference Range Interpretation [...] NOT APPLICABLE FOR DIALYSIS PATIEN TS. POCT-GLUCOSE [id number] 15:40:00 Test Item Value Reference Range Interpretation Comments POC-GLUCOSE METER 95 mg/dL 70-110 TESTED AT [place] [address] ([facility]) (test code = [facility] [address] 1538) POCT-GLUCOSE [id number] 11:47:00 Test Item Value Reference Range Interpretation Comments POC-GLUCOSE METER 101 mg/dL 70-110 TESTED AT [place] [address] ([facility]) (test code = [facility] 1538) [address] POCT-GLUCOSE [id number] 07:32:00 Test Item Value Reference Range Interpretation Comments POC-GLUCOSE METER 88 mg/dL 70-110 TESTED AT [place] [address] ([facility]) (test code = [facility] [address] 1538) CBC W/PLT COUNT & AUTO [id number] 07:32:00 Test Item Value Reference Range Interpretation [...] 0.00-0.20 (test code = 417) 0.00BASIC METABOLIC [id number] 06:23:00 Test Item Value Reference Range Interpretation [...] S NOT APPLICABLE FOR DIALYSIS PATIEN TS. [id number] 06:23:00 Test Item Value Reference Range Interpretation Comments MAGNESIUM (BEAKER) (test code = 1.6 mg/dL 1.6-2.6 627) [id number] 06:23:00 Test Item Value Reference Range Interpretation Comments PHOSPHORUS (BEAKER) (test code = 3.6 mg/dL 2.3-4.7 604) PROTHROMBIN [id number] 06:15:00 Test Item Value Reference Range Interpretation [...] POC-GLUCOSE METER 108 mg/dL 70-110 TESTED AT [facility] 6720 (BEAKER) (test code = RONNY Munoz [place]QU[place] 1538) [address] BASIC METABOLIC [id number] 18:12:00 Test Item Value Reference Range Interpretation [...] 358) GLUCOSE RANDOM 168 mg/dL 70-105 H (AKER) (test code = 652) CALCIUM (BEAKER) 9.4 mg/dL 8.4-10.2 (test code = 697) EGFR (BEAKER) (test 58 mL/min/1.73 ESTIMA MARION GFR IS code = 1092) sq m NOT ACCURATE CREATININE CLEARANCE IN PREDICTING GLOMERULAR FILTRATION RATE . ESTIMATED GFR I S NOT APPLICABLE FOR DIALYSIS PATIEN TS. POCT-GLUCOSE [id number] 17:53:00 Test Item Value Reference Range Interpretation Comments POC-GLUCOSE METER 165 mg/dL 70-110 H TESTED AT [place] [address] ([facility]) (test code = [facility] 1538) [address] PROTHROMBIN [id number] 13:53:00 Test Item Value Reference Range Interpretation Comments PROTIME ([facility]) (test code = 14.7 seconds 11.7-14.7 759) INR ([facility]) (test code = 370) 1.2 <=5.9 RECOMMENDED COUMADIN/WARFARIN INR THERAPY RANGESSTANDARD DOSE: 2.0 - 3.0 Includes: PROPHYLAXIS forvenous thrombosis, systemic embolization; TREATMENT for venous thrombosis and/or pulmonary embolus.HIGH RISK: Target INR is 2.5-3.5 for patients with mechanical heart valves.POCT-GLUCOSE [id number] 11:49:00 Test Item Value Reference Range Interpretation Comments POC-GLUCOSE METER 120 mg/dL 70-110 H TESTED AT [place] [address] ([facility]) (test code = [facility] [employer] [facility] 1538) [address] POCT-GLUCOSE [id number] 07:58:00 Test Item Value Reference Range Interpretation Comments POC-GLUCOSE METER 94 mg/dL 70-110 TESTED AT [place] [address] ([facility]) (test code = [facility] [address] 1538) [id number] 07:23:00 Test Item Value Reference Range Interpretation Comments PHOSPHORUS (BEAKER) (test code = 3.6 mg/dL 2.3-4.7 604) [id number] 07:23:00 Test Item Value Reference Range Interpretation Comments MAGNESIUM (BEAKER) (test code = 1.8 mg/dL 1.6-2.6 627) BASIC METABOLIC [id number] 07:23:00 Test Item Value Reference Range Interpretation [...] PATIEN TS. CBC W/PLT COUNT & AUTO [id number] 07:15:00 Test Item Value Reference Range Interpretation [...] L 0.00-0.20 (test code = 417) 0.00POCT-GLUCOSE [id number] 20:44:00 Test Item Value Reference Range Interpretation Comments POC-GLUCOSE METER 164 mg/dL 70-110 H TESTED AT [facility] 6720 (BEAKER) (test code = CLAUDIAGUY Munoz [facility] 1538) [address] BASIC METABOLIC [id number] 19:53:00 Test Item Value Reference Range Interpretation Comments SODIUM (BEAKER) 137 meq/L 136-145 (test code = 381) POTASSIUM (BEAKER) 4.1 meq/L 3.5-5.1 (test code = 379) CHLORIDE (BEAKER) 103 meq/L 98-107 (test code = 382) CO2 (BEAKER) (test 23 meq/L 22-29 code = 355) BLOOD UREA NITROGEN 20 mg/dL 7-21 (BEAKER) (test code = 354) CREATININE ([facility]) 1.15 mg/dL 0.57-1.25 (test code = 358) GLUCOSE RANDOM 157 mg/dL 70-105 H ([facility]) (test code = 652) CALCIUM ([facility]) 9.8 mg/dL 8.4-10.2 (test code = 697) EGFR ([facility]) (test 48 mL/min/1.73 ESTIMA MARION GFR IS code = 1092) sq m NOT ACCURATE CREATININE CLEARANCE IN PREDICTING GLOMERULAR FILTRATION RATE . ESTIMATED GFR I S NOT APPLICABLE FOR DIALYSIS PATIEN TS. POCT-GLUCOSE [id number] 17:25:00 Test Item Value Reference Range Interpretation Comments POC-GLUCOSE METER 97 mg/dL 70-110 TESTED AT [place] [address] ([facility]) (test code = [facility] [address] 1538) CLOSTRIDIUM DIFFICILE TOXIN [id number] 15:24:00 Test Item Value Reference Range Interpretation Comments CLOSTRIDIUM DIFFICILE TOXIN, PCR Not Detected Not Detected ([facility]) (test code = 1525) This qualitative [...] of a positive result is not recommended.POCT-GLUCOSE [id number] 12:30:00 Test Item Value Reference Range Interpretation Comments POC-GLUCOSE METER 110 mg/dL 70-110 TESTED AT [facility] 6720 ([facility]) (test code = [facility] 1538) [address] POCT-GLUCOSE [id number] 07:56:00 Test Item Value Reference Range Interpretation Comments POC-GLUCOSE METER 94 mg/dL 70-110 TESTED AT [facility] 6720 (BEAKER) (test code = [place] [address] 1538) HEMOGLOBIN [id number] 07:48:00 Test Item Value Reference Range Interpretation Comments HEMOGLOBIN A1C (BEAKER) (test code = 5.4 % 4.3-6.1 368) CBC W/PLT COUNT & AUTO [id number] 06:42:00 Test Item Value Reference Range Interpretation Comments WHITE BLOOD CELL COUNT (BEAKER) 8.0 K/ L 4.0-10.0 (test code = 775) RED BLOOD CELL COUNT (BEAKER) 4.65 M/ L 4.00-5.00 (test code = 761) HEMOGLOBIN (BEAKER) (test code = 13.6 GM/DL 12.0-15.0 410) HEMATOCRIT (BEAKER) (test code = 41.6 % 36.0-45.0 411) MEAN CORPUSCULAR VOLUME (BEAKER) [...] K/ L 0.00-0.20 (test code = 417) [id number] 06:06:00 Test Item Value Reference Range Interpretation Comments PHOSPHORUS (BEAKER) (test code = 3.7 mg/dL 2.3-4.7 604) [id number] 06:06:00 Test Item Value Reference Range Interpretation Comments MAGNESIUM (BEAKER) (test code = 1.4 mg/dL 1.6-2.6 L 627) BASIC METABOLIC [id number] 06:06:00 Test Item Value Reference Range Interpretation [...] NOT APPLICABLE FOR DIALYSIS PATIEN TS. POCT-GLUCOSE [id number] 21:04:00 Test Item Value Reference Range Interpretation Comments POC-GLUCOSE METER 100 mg/dL 70-110 TESTED AT [facility] 6720 (BEAKER) (test code = RONNY AQUINO 4368) [address] BASIC METABOLIC [id number] 20:03:00 Test Item Value Reference Range Interpretation [...] NOT APPLICABLE FOR DIALYSIS PATIEN TS. POCT-GLUCOSE [id number] 15:45:00 Test Item Value Reference Range Interpretation Comments POC-GLUCOSE METER 130 mg/dL 70-110 H TESTED AT [facility] 6720 (BEAKER) (test code = [place] 1538) [address] POCT-GLUCOSE [id number] 11:20:00 Test Item Value Reference Range Interpretation Comments POC-GLUCOSE METER 102 mg/dL 70-110 TESTED AT [facility] 6720 (BEAKER) (test code = [place] 1538) [address] HEMOGLOBIN [id number] 08:50:00 Test Item Value Reference Range Interpretation Comments HEMOGLOBIN A1C (BEAKER) (test code = 5.6 % 4.3-6.1 368) [id number] 05:44:00 Test Item Value Reference Range Interpretation Comments PHOSPHORUS (BEAKER) (test code = 3.4 mg/dL 2.3-4.7 604) [id number] 05:44:00 Test Item Value Reference Range Interpretation Comments MAGNESIUM (BEAKER) (test code = 1.7 mg/dL 1.6-2.6 627) BASIC METABOLIC [id number] 05:44:00 Test Item Value Reference Range Interpretation [...] PATIEN TS. CBC W/PLT COUNT & AUTO [id number] 05:39:00 Test Item Value Reference Range Interpretation [...] L 0.00-0.20 (test code = 417) 0.00POCT-GLUCOSE [id number] 23:15:00 Test Item Value Reference Range Interpretation Comments POC-GLUCOSE METER 83 mg/dL 70-110 TESTED AT [place] [address] ([facility]) (test code = [facility] [address] 1538) POCT-GLUCOSE [id number] 17:19:00 Test Item Value Reference Range Interpretation Comments POC-GLUCOSE METER 82 mg/dL 70-110 TESTED AT [place] [address] ([facility]) (test code = [facility] [address] 1538) POCT-GLUCOSE [id number] 12:57:00 Test Item Value Reference Range Interpretation Comments POC-GLUCOSE METER 124 mg/dL 70-110 H TESTED AT [place] [address] ([facility]) (test code = [facility] 1538) [address] HEMOGLOBIN [id number] 10:12:00 Test Item Value Reference Range Interpretation Comments HEMOGLOBIN A1C ([facility]) (test code = 5.6 % 4.3-6.1 368) CBC W/PLT COUNT & AUTO [id number] 06:14:00 Test Item Value Reference Range Interpretation [...] K/ L 0.00-0.20 (test code = 417) [id number] 05:43:00 Test Item Value Reference Range Interpretation Comments PHOSPHORUS (BEAKER) (test code = 4.1 mg/dL 2.3-4.7 604) [id number] 05:43:00 Test Item Value Reference Range Interpretation Comments MAGNESIUM (BEAKER) (test code = 1.9 mg/dL 1.6-2.6 627) BASIC METABOLIC [id number] 05:43:00 Test Item Value Reference Range Interpretation [...] NOT APPLICABLE FOR DIALYSIS PATIEN TS. POCT-GLUCOSE [id number] 05:12:00 Test Item Value Reference Range Interpretation Comments POC-GLUCOSE METER 89 mg/dL 70-110 TESTED AT [facility] 6720 ([employer]) (test code = RONNY Munoz [facility] [address] 1538) POCT-GLUCOSE [id number] 00:07:00 Test Item Value Reference Range Interpretation Comments POC-GLUCOSE METER 92 mg/dL 70-110 TESTED AT [facility] 6720 ([employer]) (test code = [facility] Tammy [facility] [address] 1538) [id number] 23:51:00 Test Item Value Reference Range Interpretation [...] is 2.5-3.5 for patients with mechanical heart valves.[id number] 23:49:00 Test Item Value Reference Range Interpretation Comments MAGNESIUM (BEAKER) 1.9 mg/dL 1.6-2.6 Specimen slightly (test code = 627) hemolyzed [id number] 23:49:00 Test Item Value Reference Range Interpretation Comments PHOSPHORUS (BEAKER) 3.4 mg/dL 2.3-4.7 Specimen slightly (test code = 604) hemolyzed BASIC METABOLIC [id number] 23:49:00 Test Item Value Reference Range Interpretation [...] PATIEN TS. CBC W/PLT COUNT & AUTO [id number] 23:38:00 Test Item Value Reference Range Interpretation [...] 0.00-0.20 (test code = 417) 0.00URINALYSIS W/ [id number] 22:57:00 Test Item Value Reference Range Interpretation [...] 1574) SOURCE(BEAKER) (test code = Urine, Perez 2267)
--- OUTSIDE RECORDS SUMMARY | 2020-06-21 22:33 | XMS REPORT | Summary of Care ---
:1955 Author Organization [facility] Address [address] [place] [address] Care Team Providers Name Role Phone MD Ajit Primary Care Provider MD Ajit Unavailable Reason for Visit Reason Comments Assessment Encounter Details Date Type Department Care Team Description 05/09/2020 Telephone [facility] Pediatric and Arthur Fong MD Assessment Adult Primary Care- [address] [place] [address] [place] [address], [address] [place] [address] Allergies No Known Allergiesdocumented as of this encounter (statuses as of 05/12/2020) Medications Medication Sig Dispensed Refills Start Date [...] BY MOUTH EVERY tabletIndications: DAY Kidney stone Compressor, For DIRECTED [...] mcg TAKE 1 TABLET 90 tablet 0 04/13/2020 Active tabletIndications: BY MOUTH EVERY 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 FUROSEMIDE 20 mg TAKE 1 TABLET 30 tablet 0 04/20/2020 Active tabletIndications: BY MOUTH EVERY Essential hypertension, DAY benign ALLOPURINOL 100 mg TAKE 1 TABLET 90 tablet 0 04/20/2020 Active tabletIndications: BY MOUTH EVERY Chronic gout without DAY tophus, unspecified cause, unspecified site VALSARTAN-HYDROCHLOROTHI TAKE 1 TABLET 90 tablet 0 04/25/2020 Active AZIDE 320-25 mg per BY MOUTH EVERY tabletIndications: DAY Essential hypertension, benign documented as of this encounter (statuses as of 05/12/2020) Active Problems Problem Noted Date Staghorn calculus 11/16/2018 Kidney stone 10/13/2018 Overview: Added automatically from request for manda blanche [id number] Chronic gout without tophus, unspecified cause, unspec ified site 10/01/2018 Vaginal bleeding 05/05/2018 Postmenopausal vaginal bleeding 05/05/2018 Recurrent joint pain 05/05/2018 Dehydration 01/18/2018 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/31/2017 Overview: Added automatically from request for manda mancia [id number] Hypotension 12/25/2017 Morbid obesity with body mass [...] 06/22/2015 Pyelonephritis 06/25/2007 Overview: ICD10 Diagnosis Term [employer] Type 2 diabetes mellitus with stage 3 chronic kidney d isease, without 06/25/2007 long-term current use of insulin Essential hypertension, benign 06/25/2007 Hypothyroidism 06/25/2007 Overview: ICD10 Diagnosis Term [employer] documented as of this encounter (statuses as of 05/12/2020) Immunizations Name Administration Dates Next Due Influenza [...] Signs Not on filedocumented in this encounter Miscellaneous Notes Telephone Encounter - Kristie Fried - 05/09/2020 1:15 PM CDTC[facility]na documented in this encounter Plan of Treatment Date Type Specialty Care Team Description 05/18/2020 Office Visit Family Medicine Arthur Fong MD [address] [place] [address] [phone] Health Maintenance Due Date Last Done Comments [...] of this encounter Implants Implanted Type Area Neurology Specialist Device Shelf Expiration Model / Identifier Date Serial / Lot Ivc Filter Janice Femoral [employer] #[id number] - S0 FILTER Groin Bar d 10/15/2020 [id number] / Implanted: Qty: 1 on 01/20/2018 by Karl Damon MD at [facility] 0 / [id number] documented as of this encounter Results Not on filedocumented in this encounter Insurance Payer Benefit Plan / Subscriber ID Effective Dates Phone Addre ss Type Group CIGNA CIGNA II [id number] 2003-Presen HM O/PPO/POS t [employer] [place] [employer] [place] [id number] 2019-Presen Medicare Adv PLUS PLUS t HMO CLASSIC/VALUE documented as of this encounter
--- OUTSIDE RECORDS SUMMARY | 2020-06-21 22:34 | XMS REPORT | Summary of Care ---
:1955 Author Organization [facility] Address [address] [place] [address] Care Team Providers Name Role Phone MD Ajit Primary Care Provider MD Ajit Unavailable Reason for Visit Reason Comments Refill Request Encounter Details Date Type Department Care Team Description 05/24/2020 Refill [facility] Family Medicine Arthur Stiles MD Refill Request - [address] [place] [address] [place] [address] [phone] Allergies No Known Allergiesdocumented as of this encounter (statuses as of 05/25/2020) Medications Medication Sig Dispensed Refills Start End [...] severity, unspecified SHORTNESS OF whether persistent BREATH amoxicillin-clavulanat Take 1 tablet 20 tablet 0 11/24/19 Active e (AUGMENTIN) 875-125 by mouth 2 20 mg per (two) times tabletIndications: daily. Bronchitis zolpidem 10 mg Take 1 tablet 30 [...] back pain laterality, unspecified whether sciatica present LEVOTHYROXINE 175 mcg TAKE 1 TABLET 90 [...] 20 tabletIndications: EVERY DAY Essential hypertension, benign HEMATINIC/FOLIC ACID TAKE 1 TABLET 90 tablet 0 05/17/20 Active 324 mg (106 mg iron)-1 BY MOUTH 20 mg TabIndications: EVERY DAY Anemia, unspecified type PREGABALIN 150 mg TAKE 1 60 capsule 1 05/25/20 A ctive capsuleIndications: CAPSULE BY 20 Chronic low back pain, MOUTH TWICE A unspecified back pain DAY laterality, unspecified whether sciatica present HYDROcodone-acetaminop Take 1 tablet 150 tablet 0 05/25/20 Active hen 10-325 mg by mouth 20 tabletIndications: every 4 chronic pain (four) hours as needed for Pain (scale 4-6) or Pain (scale 7-10). Indications: chronic pain PREGABALIN 150 mg TAKE 1 60 capsule 1 12/20/19 D iscontinued capsuleIndications: CAPSULE BY 20 020 Chronic low back pain, MOUTH TWICE A unspecified back pain DAY laterality, unspecified whether sciatica present HYDROcodone-acetaminop Take 1 tablet 150 tablet 0 03/21/20 Discontinued hen 10-325 mg by mouth 20 020 (Reord er) tabletIndications: every 4 chronic pain (four) hours as needed for Pain (scale 4-6) or Pain (scale 7-10). Indications: chronic pain documented as of this encounter (statuses as of 05/25/2020) Active Problems Problem Noted Date Staghorn calculus 11/16/2018 Kidney stone 10/13/2018 Overview: Added automatically from request for manda mancia [id number] Chronic gout without tophus, unspecified cause, unspec ified site 10/01/2018 Vaginal bleeding 05/05/2018 Postmenopausal vaginal bleeding 05/05/2018 Recurrent joint pain 05/05/2018 Dehydration 01/18/2018 Fistula 12/31/2017 Overview: Added automatically from request for manda mancia [id number] Hypotension 12/25/2017 Morbid obesity with body mass [...] 06/22/2015 Pyelonephritis 06/25/2007 Overview: ICD10 Diagnosis Term Referral And Information Aide Utility Type 2 diabetes mellitus with stage 3 chronic kidney d isease, without 06/25/2007 long-term current use of insulin Essential hypertension, benign 06/25/2007 Hypothyroidism 06/25/2007 Overview: ICD10 Diagnosis Term Referral And Information Aide Utility documented as of this encounter (statuses as of 05/25/2020) Immunizations Name Administration Dates Next Due Influenza [...] this encounter Miscellaneous Notes Telephone Encounter - Mabel Bone LVN - 05/25/2020 1:22 PM CDT PREGABALIN 150 mg capsule 60 capsule 1 12/20/2019 HYDROcodone-acetaminophen 10-325 mg tablet 150 tablet 0 03/21/2020 [facility]/pharmacy #[id number] - [place], [place] - [address] [place] [address] AT [facility] APPOINTMENT 12/27/2019 elephone Encounter - Diana Arnold - 05/24/2020 2:27 PM CDTPatient is requesting a refill on iron pills documented in this encounter Plan of Treatment Health [...] of this encounter Implants Implanted Type Area Fast Food Attendant Device Shelf Expiration Model / Identifier Date Serial / Lot Ivc Filter Janice Femoral Us Bard #[id number] - S0 FILTER Groin Bar d 10/15/2020 [id number] / Implanted: Qty: 1 on 01/20/2018 by Karl Damon MD at [facility] 0 / [id number] documented as of this encounter Results Not on filedocumented in this encounter Visit Diagnoses Diagnosis Chronic low back pain, unspecified back pain laterality, unspecified whether sciatica present documented in this encounter Insurance Payer Benefit Plan / Subscriber ID Effective Dates Phone Addre ss Type Group CIGNA CIGNA II [id number] [facility] [place] [id number] 2019-Presen Medicare Adv PLUS PLUS t HMO CLASSIC/VALUE documented as of this encounter
--- OUTSIDE RECORDS SUMMARY | 2020-06-21 22:34 | XMS REPORT | Summary of Care ---
:1955 Author Organization [facility] Address [address] [place] [address] Care Team Providers Name Role Phone MD Ajit Primary Care Provider MD Ajit Unavailable Reason for Visit Reason Comments Notification Encounter Details Date Type Department Care Team Description 05/15/2020 Telephone [facility] Family Medicine Arthur Stiles MD Notification - [address] [place] [facility] [place] [address] [place] [address] [phone] Allergies No Known Allergiesdocumented as of this encounter (statuses as of 05/23/2020) Medications Medication Sig Dispensed Refills Start Date [...] and one tab the morning of. hydroCHLOROthiazide 12.5 TAKE ONE 90 capsule 0 [...] SHORTNESS severity, unspecified OF BREATH whether persistent amoxicillin-clavulanate Take 1 tablet 20 tablet 0 [...] as of this encounter (statuses as of 05/23/2020) Active Problems Problem Noted Date Staghorn calculus 11/16/2018 Kidney stone 10/13/2018 Overview: Added automatically from request for manda blanche [id number] Chronic gout without tophus, unspecified cause, unspec ified site 10/01/2018 Vaginal bleeding 05/05/2018 Postmenopausal vaginal bleeding 05/05/2018 Recurrent joint pain 05/05/2018 Dehydration 01/18/2018 Fistula 12/31/2017 Overview: Added automatically from request for manda blanche [id number] Hypotension 12/25/2017 Morbid obesity with body mass [...] 06/22/2015 Pyelonephritis 06/25/2007 Overview: ICD10 Diagnosis Term Setter Out Utility Type 2 diabetes mellitus with stage 3 chronic kidney d isease, without 06/25/2007 long-term current use of insulin Essential hypertension, benign 06/25/2007 Hypothyroidism 06/25/2007 Overview: ICD10 Diagnosis Term Setter Out Utility documented as of this encounter (statuses as of 05/23/2020) Immunizations Name Administration Dates Next Due Influenza [...] Telephone Encounter - Mabel Bone LVN - 05/16/2020 11:31 AM CDTI returned the call to Maritza with Jg there was no answer will try again later. elephone Encounter - Amisha Pugh - 05/15/2020 3:24 PM CDTLiz with JG a Nurse Tile Edger is needing to speak to nurse in regards to plan of care needs for patient. documented in this encounter Plan of Treatment [...] of this encounter Implants Implanted Type Area Dipper Machine Operator Device Shelf Expiration Model / Identifier Date Serial / Lot Ivc Filter [place]te Femoral Bard #[id number] - S0 FILTER Groin Bar d 10/15/2020 [id number] / Implanted: Qty: 1 on 01/20/2018 by Karl Damon MD at [facility] 0 / [id number] documented as of this encounter Results Not on filedocumented in this encounter Insurance Payer Benefit Plan / Subscriber ID Effective Dates Phone Addre ss Type Group CIGNA CIGNA II [id number] 2003-Presen HM O/PPO/POS t [place] [place] [employer] [place] [id number] 2019-Presen Medicare Adv PLUS PLUS t HMO CLASSIC/VALUE documented as of this encounter
--- OUTSIDE RECORDS SUMMARY | 2020-06-21 22:34 | XMS REPORT | Encounter Summary ---
:1955 Author Care Team Providers Name Role Phone Dr. Dayanna Lorenzana Primary Care Provider [phone] Reason for Visit TELE-hospital follow up - TCM (JULIAN) Instructions 1. Diabetes mellitus 2. Recurrent major depression 3. 2018 novel coronavirus 10 things to do when you h ave covid-19 coronavirus (covid-19): ca re instructions Discussion Note Patient report she still has genera lized weakness and nose bleeding after discharge. Patient report her doc is [facility] and she has a up coming visit. Patient report she has PT and OT scheduled 2 suzanne es a week. Patient advice to immediatily notify her pcp if her sysmptome persist. Patient verbalized understanding. Will follow with patient in 2 weeks. Plan of Care Patient Instructions Thank you for scheduling your post hospital visit. Please let us know if you need help in scheduling follow up tests or specialist visits. Knowing what medicines to keep taking a nd which to ones to stop after a hospital stay can be confusing. Contact your physicians with your questions about what medications you should be taking. Our [facility] can also help you in this area. [facility] can help you choose the best Home Health agency. We can also help you with social services aide and community resources. Call us we are here to help. If you experience any new or concerning symptoms, call pcp . . Please follow up with your doctor in tw o weeks. Reminders Provider Appointments Telemedicine on or around Prudence 06/11/2020 RENZO Crockett Lab None recorded. Referral None [...] route. Medications Administered None recorded. Vitals Height 5 ft 8 in Results Lab Results None recorded. Allergies Code Code System Name Reaction Severity Status Onset NKDA Problems Name Status Onset Date Source Hypothyroidism Active 03/08/2020 Diabetes Mellitus Active 03/08/2020 Gout Active 03/08/2020 Essential Hypertension Active 03/08/2020 Pulmonary Embolism Active 03/08/2020 Chronic Back Pain Active 03/08/2020 Bilateral Knee Pain Active 03/08/2020 Anxiety Disorder Active 03/12/2020 Insomnia Active 03/12/2020 Knee Pain Active 03/12/2020 Depression Screening Positive Active 05/11/20202018 Novel Coronavirus Active 05/24/2020 Procedures None recorded. Vaccine List Vaccine Type influenza, injectable, quadrivalent 06/15/2019 Social History Tobacco Smoking Status Never Smoker Past Encounters 05/24/2020 Diabetes Mellitus; Recurrent Major Depre ssion; 2019 Novel Coronavirus Prudence Crockett, SOFTWARE INTEGRATION DEVELOPER: [address] [facility], [address], [place] [address], Ph. History of Present Illness Hospital Follow Up ( TCM ) Reported By: Patient HPI: Timing: ; At admitted for co vid Pne march 31 [facility] to the for Assisted. [place] ye Information: See Assessment and Plan for additional information. ; Patient discharged home with physical therapy and OT. patient repo rt she has generalized weakness and nose bleed and pcp aware of it. S OB frequently Note: I confirm that I received verbal consent from the patient for the virtual visit.
This telemedicine encounter was performed using live {{video and audio|audio only because either patient did not have technology or unable to connect due to technical problems*}}.
<strong>(for a udio only)</strong> Total time spent with patient: {{ }} minutes. Review of Systems Comprehensive General Adult ROS Reported By: Patient Constitutional: Constitutional: no fever, no night sweats, no significant weight gain, no significant weight loss, no exercise intolerance Eyes: Eyes: no dry eyes, no vision [...] Respiratory: no cough, no wh eezing, no coughing up blood, no sleep apnea, shortness of br eath Gastrointestinal: Gastrointestinal: no abdomin al pain, no nausea, no vomiting, no constipation, normal appe tite, no diarrhea, not vomiting blood, no dyspepsia, no GERD Genitourinary: Genitourinary: no incontinen ce, no difficulty urinating, no hematuria, no increased freq uency Musculoskeletal: Musculoskeletal: no muscle a ches, no muscle weakness, no arthralgias/joint pain, no b ack pain, no swelling in the extremities Integumentary: Skin: no abnormal mole, no j [...] Reported By: Patient Constitutional: Level of Distress: NAD. Ambu lation: ambulating normally Psychiatric: Insight: good judgement. Men jackie Status: active and alert, normal mood, normal affect. Orienta tion: to time, to place, to person. Memory: recent memory normal , remote memory normal"
--- OUTSIDE RECORDS SUMMARY | 2020-06-21 22:34 | XMS REPORT | Summary of Care ---
:1955 Author Organization [facility] Address [address] [place] [address] Care Team Providers Name Role Phone MD Ajit Primary Care Provider MD Ajit Unavailable Reason for Visit Reason Comments Assessment Encounter Details Date Type Department Care Team Description 06/05/2020 Telephone [facility] Family Medicine Arthur Stiles MD Assessment - [address] [place] [facility] [place] [place] [address] [place] [address] [phone] Allergies No Known Allergiesdocumented as of this encounter (statuses as of 06/06/2020) Medications Medication Sig Dispensed Refills Start Date [...] 2 per tabletIndications: (two) times Bronchitis daily. zolpidem 10 mg Take 1 tablet 30 [...] MOUTH EVERY tabletIndications: DAY Essential hypertension, benign FUROSEMIDE 20 mg TAKE 1 TABLET 30 tablet 0 05/15/2020 Active tabletIndications: BY MOUTH EVERY Essential hypertension, DAY benign METOPROLOL SUCCINATE XL TAKE 1 TABLET 90 tablet 3 05/15/2020 Active 50 mg 24 hr BY MOUTH EVERY tabletIndications: DAY Essential hypertension, benign HEMATINIC/FOLIC ACID 324 TAKE 1 TABLET 90 tablet 0 05/17/2020 Active mg (106 mg iron)-1 mg BY MOUTH EVERY TabIndications: Anemia, DAY unspecified type PREGABALIN 150 mg TAKE 1 CAPSULE 60 capsule 1 05/25/2020 Active capsuleIndications: BY MOUTH TWICE Chronic low back pain, A DAY unspecified back pain laterality, unspecified whether sciatica present HYDROcodone-acetaminophe Take 1 tablet 150 tablet 0 05/25/2020 Active n 10-325 mg by mouth every tabletIndications: 4 (four) hours chronic pain as needed for Pain (scale 4-6) or Pain (scale 7-10). Indications: chronic pain documented as of this encounter (statuses as of 06/06/2020) Active Problems Problem Noted Date Staghorn calculus 11/16/2018 Kidney stone 10/13/2018 Overview: Added automatically from request for manda mancia [id number] Chronic gout without tophus, unspecified cause, unspec ified site 10/01/2018 Vaginal bleeding 05/05/2018 Postmenopausal vaginal bleeding 05/05/2018 Recurrent joint pain 05/05/2018 Dehydration 01/18/2018 Fistula 12/31/2017 Overview: Added automatically from request for manda mancia [id number] Hypotension 12/25/2017 Morbid obesity with body mass [...] 06/22/2015 Pyelonephritis 06/25/2007 Overview: ICD10 Diagnosis Term Sql Data Architect Utility Type 2 diabetes mellitus with stage 3 chronic kidney d isease, without 06/25/2007 long-term current use of insulin Essential hypertension, benign 06/25/2007 Hypothyroidism 06/25/2007 Overview: ICD10 Diagnosis Term Sql Data Architect Utility documented as of this encounter (statuses as of 06/06/2020) Immunizations Name Administration Dates Next Due Influenza [...] Notes Telephone Encounter - Kristie Fried - 06/05/2020 10:[facility] placed in nurse box documented in this encounter Plan of Treatment [...] of this encounter Implants Implanted Type Area Turn Out Device Shelf Expiration Model / Identifier Date Serial / Lot Ivc Filter Janice Femoral [facility] #[id number] - S0 FILTER Groin Bar d 10/15/2020 [id number] / Implanted: Qty: 1 on 01/20/2018 by Karl Damon MD at [facility] 0 / [id number] documented as of this encounter Results Not on filedocumented in this encounter Insurance Payer Benefit Plan / Subscriber ID Effective Dates Phone Addre ss Type Group CIGNA CIGNA II [id number] 2003-Presen HM O/PPO/POS t [place] [place] [employer] [place] [id number] 2019-Presen Medicare Adv PLUS PLUS t HMO CLASSIC/VALUE documented as of this encounter
--- OUTSIDE RECORDS SUMMARY | 2020-06-21 22:34 | XMS REPORT | Encounter Summary ---
:1955 Author Care Team Providers Name Role Phone Dr. Dayanna Lorenzana Primary Care Provider [phone] Reason for Visit TELE-hospital follow up - [...] what medications you should be taking. Our [facility] can also help you in this area. [facility] can help you choose the best Home Health agency. We can also help you with social service agency director and community resources. Call us we are here to help. If you experience any new or concerning symptoms, call pcp . . Please follow up with your doctor in tw o weeks. Reminders Provider Appointments Telemedicine Am [place] 06/12/2020 RENZO Crockett 11:00AM Telemedicine Montoya janey 06/12/2020 RENZO Crockett 11:00AM Lab None recorded. Referral None recorded. Procedures [...] Pain Active 03/12/2020 Depression Screening Positive Active 05/11/2020 2019 Novel Coronavirus Active 05/24/2020 Procedures None recorded. Vaccine List Vaccine Type influenza, injectable, quadrivalent 06/15/2019 Social History Tobacco Smoking Status Never Smoker Past Encounters 05/24/2020 Diabetes Mellitus; Recurrent Major Depre ssion; 2019 Novel Coronavirus Prudence Crockett, BULB PACKER: [address] [facility], [address], [place] [address], Ph. History of Present Illness Hospital Follow Up ( TCM ) Reported By: Patient HPI: Timing: ; At admitted for co vid Pne march 31 [facility] to the for Assisted. [place]y ye Information: [...] udio only)</strong> Total time spent with patient: {{50#| }} minutes. Review of Systems Comprehensive General [...]
--- OUTSIDE RECORDS SUMMARY | 2020-06-21 22:35 | XMS REPORT | Encounter Summary ---
:1955 Author Care Team Providers Name Role Phone Dr. Dayanna Lorenzana Primary Care Provider [phone] Reason for Visit TELE-hospital follow up - TCM (JLUIAN) Instructions 1. Diabetes mellitus 2. Recurrent major [...] what medications you should be taking. Our [facility] can also help you in this area. [facility] can help you choose the best Home Health agency. We can also help you with family welfare social work professor and community resources. Call us we are here to help. If you experience any new or concerning symptoms, call pcp . . Please follow up with your doctor in tw o weeks. Reminders Provider Appointments Telemedicine [place] 06/12/2020 RENZO Crockett 11:00AM Lab None recorded. [...] Depre ssion; 2019 Novel Coronavirus Prudence Crockett, MASK DESIGN ENGINEER: [address] [facility], [address], [place] [address], Ph. History of Present Illness Hospital Follow Up ( TCM ) Reported By: Patient HPI: Timing: ; At admitted for co vid Pne march 31 [facility] to the for Assisted. [place]y ye Information: [...]
--- OUTSIDE RECORDS SUMMARY | 2020-06-21 22:35 | XMS REPORT | Summary of Care ---
:1955 Author Organization [facility] Address [address] [place] [address] Care Team Providers Name Role Phone MD Ajit Primary Care Provider MD Ajit Unavailable Reason for Visit Reason Comments Refill Request Encounter Details Date Type Department Care Team Description 06/16/2020 Refill [facility] Family Medicine Arthur Stiles MD Refill Request - [address] [place] [address] [place] [address] [phone] Allergies No Known Allergiesdocumented as of this encounter (statuses as of 06/16/2020) Medications Medication Sig Dispensed Refills Start End [...] 20 per tabletIndications: (two) times Bronchitis daily. zolpidem [...] EVERY 20 tabletIndications: DAY Essential hypertension, benign METOPROLOL SUCCINATE XL TAKE 1 TABLET 90 tablet 3 05/15/20 Active 50 mg 24 hr BY MOUTH EVERY 20 tabletIndications: DAY Essential hypertension, benign HEMATINIC/FOLIC ACID TAKE 1 TABLET 90 tablet 0 05/17/20 Active 324 mg (106 mg iron)-1 BY MOUTH EVERY 20 mg TabIndications: DAY Anemia, unspecified type PREGABALIN 150 mg TAKE 1 CAPSULE 60 capsule 1 05/25/20 Active capsuleIndications: BY MOUTH TWICE 20 Chronic low back pain, A DAY unspecified back pain laterality, unspecified whether sciatica present HYDROcodone-acetaminoph Take 1 tablet 150 tablet 0 05/25/20 Active en 10-325 mg by mouth every 20 tabletIndications: 4 (four) hours chronic pain as needed for Pain (scale 4-6) or Pain (scale 7-10). Indications: chronic pain FUROSEMIDE 20 mg TAKE 1 TABLET 30 tablet 0 06/16/20 Active tabletIndications: BY MOUTH EVERY 20 Essential hypertension, DAY benign FUROSEMIDE 20 mg TAKE 1 TABLET 30 tablet 0 05/15/20 Discontinued tabletIndications: BY MOUTH EVERY 20 020 Essential hypertension, DAY benign documented as of this encounter (statuses as of 06/16/2020) Active Problems Problem Noted Date Staghorn calculus 11/16/2018 Kidney stone 10/13/2018 Overview: Added automatically from request for manda mancia [id number] Chronic gout without tophus, unspecified cause, unspec ified site 10/01/2018 Vaginal bleeding 05/05/2018 Postmenopausal vaginal bleeding 05/05/2018 Recurrent joint pain 05/05/2018 Dehydration 01/18/2018 Fistula 12/31/2017 Overview: Added automatically from request for manda mancia [id number] Hypotension 12/25/2017 Morbid obesity with body mass [...] 06/22/2015 Pyelonephritis 06/25/2007 Overview: ICD10 Diagnosis Term Stock Repairer Utility Type 2 diabetes mellitus with stage 3 chronic kidney d isease, without 06/25/2007 long-term current use of insulin Essential hypertension, benign 06/25/2007 Hypothyroidism 06/25/2007 Overview: ICD10 Diagnosis Term Stock Repairer Utility documented as of this encounter (statuses as of 06/16/2020) Immunizations Name Administration Dates Next Due Influenza [...] of this encounter Implants Implanted Type Area Telesales Supervisor Device Shelf Expiration Model / Identifier Date Serial / Lot Ivc Filter Janice Femoral [facility] #[id number] - S0 FILTER Groin Bar d 10/15/2020 [id number] / Implanted: Qty: 1 on 01/20/2018 by Karl Damon MD at [facility] 0 / [id number] documented as of this encounter Results Not on filedocumented in this encounter Visit Diagnoses Diagnosis Essential hypertension, benign documented in this encounter Insurance Payer Benefit Plan / Subscriber ID Effective Dates Phone Addre ss Type Group CIGNA CIGNA II [id number] 2003-Presen HM O/PPO/POS t [employer] [place] [employer] [place] [id number] 2019-Presen Medicare Adv PLUS PLUS t HMO CLASSIC/VALUE documented as of this encounter
--- OUTSIDE RECORDS SUMMARY | 2020-06-21 22:35 | XMS REPORT | Encounter Summary ---
:1955 Author Care Team Providers Name Role Phone Dr. Dayanna Lorenzana Primary Care Provider [phone] Reason for Visit Essential hypertension; Insomnia; Diabet es mellitus; SARS-CoV-2; Telemedicine Visit Instructions 1. SARS-CoV-2 10 things to do when you h ave covid-19 coronavirus (covid-19): ca re instructions 2. Diabetes mellitus 3. Essential hypertension 4. Insomnia 5. Osteoarthritis Discussion Note Patient denies any acute issues at this time. Patient encouraged to take her meds daily and monitor her blood pressur e. Patient advise to notify her pcp for any continue fever,sob, and cough. Patient v erbalized understanding. Plan of Care Reminders Provider Appointments Telemedicine on or around [facility] 09/15/2020 R[facility] None recorded. Referral None recorded. Procedures None recorded. Surgeries None recorded. Imaging None recorded. Medications Name Start Date albuterol sulfate 2.5 mg/3 mL (0.083 %) solution for nebulization albuterol sulfate HFA 90 mcg/actuation aerosol inhaler allopurinol 100 mg tablet Take 1 tablet every day by oral route. alprazolam 1 mg tablet amoxicillin 875 mg-potassium clavulanate 125 mg tablet azithromycin 250 mg tablet benzonatate 200 mg capsule Breo Ellipta 200 mcg-25 mcg/dose powder for inhalation citalopram 20 mg tablet clobetasol 0.05 % topical ointment cyclobenzaprine 7.5 mg tablet econazole 1 % topical cream etodolac 400 mg tablet Take 1 tablet twice a day by oral route. fluconazole 150 mg tablet furosemide 20 mg tablet 20 mg by oral route. Hematinic/Folic Acid 324 mg (106 mg iron)-1 mg tablet 1 {tbl} by oral route. hydrochlorothiazide 12.5 mg capsule 06/16/2019 hydrocodone 10 mg-acetaminophen 325 mg tablet 1 {tbl} by oral route. levothyroxine 75 mcg tablet Take 1 tablet every day by oral route. metformin 500 mg tablet methylprednisolone 4 mg tablets in a dose pack metoprolol succinate ER 50 mg tablet,extended release 24 hr 50 mg by oral route. potassium citrate ER 10 mEq (1,080 mg) tablet,extended release prednisone 10 mg tablet pregabalin 150 mg capsule ProAir RespiClick 90 mcg/actuation breath activated tizanidine 4 mg capsule Take 1 capsule every 6 hours by oral route. tizanidine 4 mg tablet and irritant-counter irritant 0 01/24/2020 comb.no.2 gel kit triamcinolone acetonide 0.147 mg/gram topical aerosol valsartan 320 mg-hydrochlorothiazide 12.5 mg tablet Take 1 tablet every day by oral route. Wixela Inhub 250 mcg-50 mcg/dose powder for inhalation Xarelto 20 mg tablet 02/04/2020 zolpidem 10 mg tablet 10 mg by oral route. Medications Administered None recorded. Vitals Height 5 ft 8 in Results Lab Results None recorded. Allergies Code Code System Name Reaction Severity Status Onset NKDA Problems Name Status Onset Date Source Type 2 Diabetes Mellitus Active 06/25/2007 Externa l Benign Essential Hypertension Active 06/25/2007 Ex ternal Osteoarthritis Active 01/15/2017 External Chronic Low Back Pain Active 08/26/2017 External Chronic Gout without Tophus Active 10/01/2018 Exte rnal Hypothyroidism Active 03/08/2020 Pulmonary Embolism Active 03/08/2020 Chronic Back Pain Active 03/08/2020 Bilateral Knee Pain Active 03/08/2020 Insomnia Active 03/12/2020 Depression Screening Positive Active 05/11/2020 SARS-CoV-2 Active 05/24/2020 Recurrent Major Depression Active 06/08/2020 Hypnotic or Anxiolytic Dependence Active 06/15/2020 Procedures Date Name Performed by Percutaneous Extraction of Kidney Stone with Information not available Fragmentation Procedure Vaccine List Vaccine Type influenza, injectable, quadrivalent 06/15/2019 Social History Tobacco Smoking Status Never Smoker Past Encounters 06/12/2020 SARS-CoV-2; Diabetes Mellitus; Essential Hypertension; Insomnia; Osteoarthritis Prudence Crockett NP: [address], [address], [place] [address], Ph. 05/24/2020 Diabetes Mellitus; Recurrent Major Depre ssion; SARS-CoV-2 Prudence Crockett DIAGRAMMER: [address], [address], [place] [address], Ph. History of Present Illness Insomnia Reported By: Patient HPI: Quality: symptoms worse in t he evening. Severity: improving, moderate. Duration: intermittent. Stephanie fying Factors: prescription medication. Associated Symptoms: no snor ing, no known sleep apnea, no pain, no dyspnea, no urinary frequenc y, anxiety COVID-19 Symptoms January 2020 Reported By: Patient Upper Respiratory Symptoms: COVID-19 Signs and Symptom s cough resolved, fever resolved, shortness of breat h resolved, chills resolved. Contacts and Exposure close contact with a confirmed or suspected case of COVID-19. Severity: no pain. Associated Symptoms: no sputum producti on, no wheezing, no runny nose, no vomiting, no diarrh ea, no body aches, no nausea. Prior Labs and Imaging COVID -19 nasopharyngeal swab, chest ultrasound. Suitabilit y of residential setting patient does not have caregi jeff at home, patient does have gloves and face masks a vailable, patient does not have members of the househol d at increased risk of complications, patient does have resources to access food and other necessities, patie nt is able to adhere to hand hygiene and cough etiquette practices Hypertension Reported By: Patient HPI: Quality: new onset symptoms. Severity: no symptoms. Onset/Timing: better. Context: none. Allev iating Factors: relieved with rest, medication. Aggravating Fact ors: nothing makes it worse. Medications: taking medications as direct ed, no side effects from medication. Self Care: not under emotional st ress, non-smoker, on special diet, compliant with low salt diet, limiting /avoiding salt. Associated Symptoms: no shortness of breath, no fati tj, no palpitations, no decline in exercise capacity, exertional dyspnea , no snoring Osteoarthritis Monitoring Reported By: Patient HPI: Associated Symptoms: no feve r, no tooth problems, no mouth sores or pain, no pain with respirati on, no cough. Functional status: Activities of Daily Living difficulty w alking unassisted, improve with medication Note: I confirm that I received verbal consent from the patient for the virtual visit.
This telemedicine encounter was performed using live {{video and audio|audio only because either patient did not have technology or unable to connect due to technical problems*}}.
<strong>(for a udio only)</strong> Total time spent with patient: {{45#| }} minutes.<div>
</ div><div>
</div><div>HPI:</div><div>HT N</div><div>KNEE PAIN</div><div>CHRONIC BACK PAIN</div><div>GOUT</div><div&gt ;DEPRESSION</div><div>anxiety</div><div>INSOMNIA</div ><div>PE< /div><div>DM</div><div>
</div> Review of Systems Comprehensive General Adult ROS [...] Patient Constitutional: Level of Distress: NAD Psychiatric: Mental Status: active and al ert, normal mood, normal affect. Orientation: to time, to swati ce, to person. Memory: recent memory normal, remote memory normal"
--- OUTSIDE RECORDS SUMMARY | 2020-06-21 22:35 | XMS REPORT | Summary of Care ---
:1955 Author Organization [facility] - Health Address [address] [place], [place] [id number] Care Team Providers Name Role Phone MD Ajit Primary Care Provider MD Ajit Unavailable Encounter Details Date Type Department Care Team Description 05/24/2020 Orders Only [facility] Doctor Unassigned, [address] [facility] [place] [address] [address] [place] [address] Allergies No Known Allergiesdocumented as of this encounter (statuses as of 06/12/2020) Medications Medication Sig Dispensed Refills Start Date [...] as of this encounter (statuses as of 06/12/2020) Active Problems Problem Noted Date Staghorn calculus 11/16/2018 Kidney stone 10/13/2018 Overview: Added automatically from request for manda mancia [id number] Chronic gout without tophus, unspecified cause, unspec ified site 10/01/2018 Vaginal bleeding 05/05/2018 Postmenopausal vaginal bleeding 05/05/2018 Recurrent joint pain 05/05/2018 Dehydration 01/18/2018 Fistula 12/31/2017 Overview: Added automatically from request for manda mancia [id number] Hypotension 12/25/2017 Morbid obesity with body mass [...] 06/22/2015 Pyelonephritis 06/25/2007 Overview: ICD10 Diagnosis Term Community Service Officer Utility Type 2 diabetes mellitus with stage 3 chronic kidney d isease, without 06/25/2007 long-term current use of insulin Essential hypertension, benign 06/25/2007 Hypothyroidism 06/25/2007 Overview: ICD10 Diagnosis Term Community Service Officer Utility documented as of this encounter (statuses as of 06/12/2020) Immunizations Name Administration Dates Next Due Influenza [...] of this encounter Implants Implanted Type Area Specialty Department Supervisor Device Shelf Expiration Model / Identifier Date Serial / Lot Ivc Filter Janice Femoral [facility] #[id number] - [id number] FILTER Groin Bar d 10/15/2020 [id number] / Implanted: Qty: 1 on 01/20/2018 by Karl Damon MD at [facility] 0 / [id number] documented as of this encounter Procedures Procedure Name Priority Date/Time Associated Diagnosis Comme nts AUTHORIZATION FOR RELEASE Routine 05/24/2020 12:01 AM OF PHI CDT documented in this encounter Results Not on filedocumented in this encounter Insurance Payer Benefit Plan / Subscriber ID Effective Dates Phone Addre ss Type Group CIGNA CIGNA II [id number] 2003-Presen O/PPO/POS t WELLCARE [place] WELLCARE VI [id number] 2019-Presen Medicare Adv PLUS PLUS t HMO CLASSIC/VALUE documented as of this encounter
== END 2020-06-17 15:16 | disposition short-term general hospital (02) ==
LOC: ER 10:05
DX: S72.401A Unspecified fracture of lower end of right femur, initial encounter for closed fracture (principal); W18.09XA Striking against other object with subsequent fall, initial encounter; Y93.01 Activity, walking, marching and hiking; Y92.9 Unspecified place or not applicable; I10 Essential (primary) hypertension; E11.9 Type 2 diabetes mellitus without complications; J44.9 Chronic obstructive pulmonary disease, unspecified; E03.9 Hypothyroidism, unspecified; Z79.01 Long term (current) use of anticoagulants; Z86.19 Personal history of other infectious and parasitic diseases
CPT/HCPCS: 93005; 85025; 80048; 36415; 86900; 86850; 86901; 71275; 71045; 73560; 51702; 96374; 99285; Q9967; J7050

== ENCOUNTER 2020-09-21 19:35 | Inpatient (IN) | payer OTHER ==
--- OUTSIDE RECORDS SUMMARY | 2020-09-21 19:38 | XMS REPORT | Clinical Summary ---
:1955 Author Organization [facility] Address [address] [place] [address] Care Team Providers Name Role Phone Arthur Fong MD Primary Care Provider [phone] Allergies No Known Active Allergies Medications [...] OSCOPY; Surgeon: Mateo Quinones MD; Locat ion: [facility]; Service: General ; Laterality: N/A; [...] Health Maintenance Due Date Last Done Comments DIABETES: RETINAL EYE EXAM 1966 DIABETIC FOOT EXAM 1966 URINE MICROALBUMIN 1966 COVID-19 VACCINE (#1) 1972 CERVICAL CANCER SCREENING 1977 BREAST CANCER SCREENING 2006 COLONOSCOPY SCREENING 2006 SHINGLES VACCINES (#1) 2006 INFLUENZA VACCINE 04/15/2020 Implants Implanted Type Area Rod Puller And Coiler Device Shelf Model / Identifier Expiration Serial / Date Lot Catheter Cv Powerline Dlmn Al 6fr - [id number] Surgical N/A: N/A BAR D ACCESS [id number] / Implanted: 12/11/2017 at [facility] (Quantity not on file) Implan ts; SYSTEMS / Expanders; Extenders; Surgical Wires Results Not on fileafter 09/21/2019 Insurance Payer Benefit Plan / Subscriber ID Effective Dates Phone Addre ss Type Group CIGNA CIGNA OPEN [id number] 2003-Present HMO ACCESS/NETWORK MEDICARE MEDICARE PART A [id number] 2009-Present [place] Medicare AND B Advance Directives For more information, please contact: [phone] Type Date Recorded Patient Budget Engineer Explanati on Advance Directives, Living Will and Medical Power of Physical Therapist Technician
--- OUTSIDE RECORDS SUMMARY | 2020-09-21 19:39 | XMS REPORT | Clinical Summary ---
:1955 Author Organization [facility] Address [address] [place] [address] Care Team Providers Name Role Phone Sharonda Fong Primary Care Provider Allergies No Known Allergies Medications Medication Sig Dispensed Refills Start End Date Status Date zolpidem (AMBIEN) 0 Ac tive 10 mg tablet 6 citalopram 0 Active (CELEXA) 20 MG 6 tablet HEMATINIC/FOLIC 0 Acti ve ACID 324 mg (106 7 mg iron)-1 mg Tab levothyroxine Take 1 tablet 0 Ac tive (SYNTHROID, (175 mcg total) 0 LEVOTHROID) 175 by mouth Every MCG tablet morning on an empty stomach. metoprolol Take 0.5 tablets 0 Ac tive tartrate (12.5 mg total) 0 (LOPRESSOR) 25 MG by mouth 2 (two) tablet times daily. rivaroxaban Take 1 tablet 0 Acti ve (XARELTO) 20 mg (20 mg total) by 0 Tab tablet mouth daily with dinner. senna (SENOKOT) Take 1 tablet 0 06/26/20 Active 8.6 mg tablet (8.6 mg total) 0 21 by mouth every night as needed for Constipation. gabapentin Take 1 capsule 0 06/26/20 Acti ve (NEURONTIN) 300 MG (300 mg total) 0 21 capsule by mouth 2 (two) times daily. ipratropium-albute Take 3 mLs by 540 mL 11 0 Active roL (DUO-NEB) 0.5 nebulization 0 21 mg-3 mg(2.5 mg every 4 (four) base)/3 mL hours for 360 nebulizer solution days. furosemide (LASIX) 0 06/26/20 D iscontinued 20 MG tablet 6 20 (Stop T aking at Discharge) levothyroxine 0 06/26/20 Discon tinued (SYNTHROID, 6 20 (Reorder ) LEVOTHROID) 150 MCG tablet metoprolol 0 06/26/20 Discontin ued (LOPRESSOR) 50 MG 6 20 (R eorder) tablet valsartan-hydrochl 0 06/26/20 D iscontinued orothiazide 7 20 (Stop Ta farzaneh at (DIOVAN-HCT) Dischar ge) 320-25 mg per tablet potassium citrate 0 06/26/20 Di scontinued (UROCIT-K) 10 mEq 6 20 (S top Taking at (1,080 mg) SR Discha rge) tablet HYDROcodone-acetam Take 1 tablet by 15 tablet 0 06/15 Discontinued inophen (NORCO mouth every 6 0 20 10-325) 10-325 mg (six) hours as per tablet needed for up to 10 days. Max Daily Amount: 4 tablets HYDROcodone-acetam Take 1 tablet by 90 tablet 0 06/16 inophen (NORCO mouth every 4 0 20 10-325) 10-325 mg (four) hours as per tablet needed for up to 15 days. Max Daily Amount: 6 tablets Active Problems Problem Noted Date Closed anterior dislocation of left shoulder, initial encounter 06/23/2020 Femoral distal fracture 06/17/2020 Chronic bronchitis 06/17/2020 HTN (hypertension) 06/17/2020 Acquired hypothyroidism 06/17/2020 VTE (venous thromboembolism) 06/17/2020 Leukocytosis 10/31/2016 DM (diabetes mellitus), type 2 10/31/2016 Diverticulitis 10/30/2016 Encounters Date Type Specialty Care Team Description 06/23/2020 Anesthesia Event Wilfredo Littlejohn MD 06/23/2020 Surgery Luis Angel Nation MD REDUCTION,SHOUL SEVERIANO 06/21/2020 Surgery Luis Angel Nation ORIF,FEMUR MD Manjinder 06/21/2020 Anesthesia Event Alen Morejon MD Narayan, Rakesh, MD 06/17/2020 - Hospital Encounter General Internal Aníbalvarinderergunner, Close d displaced comminuted fracture of shaft of right femur, initial encounter ([facility]); 06/26/2020 Medicine Maryellen Essential hyper tension; MD Jassi Leukemoid reaction; Arlen VTE (venous thr omboembolism) MD Dakotah Edgar Neeraj, MD 06/17/2020 Orders Only General Internal Medicine 06/17/2020 Travel after 09/21/2019 Social History Tobacco Use Types Packs/Day Years Used Date Never Smoker Alcohol Use Drinks/Week oz/Week Comments Not Asked Sex Assigned at Date Recorded Not on file Last Filed Vital Signs Vital Sign Reading Time Taken Comments Blood Pressure 132/68 06/26/2020 4:12 PM CDT Pulse 103 06/26/2020 4:12 PM CDT Temperature 36.4 C (97.5 F) 06/26/2020 4:12 PM CDT Respiratory Rate 18 06/26/2020 4:12 PM CDT Oxygen Saturation 96% 06/26/2020 4:12 PM CDT Inhaled Oxygen Concentration 21% 06/25/2020 8:46 PM CDT Weight 139.7 kg (308 lb) 06/17/2020 4:00 PM CDT Height 175.3 cm (5' 9") 06/17/2020 4:00 PM CDT Body Mass Index 45.48 06/17/2020 4:00 PM CDT Plan of Treatment Health Maintenance Due Date Last Done Comments BREAST CANCER SCREENING 1955 COLON CANCER SCREENING COLONOSCOPY 1955 PNEUMOCOCCAL VACCINE 0-64 YRS (1 1962 of 1 - PPSV23) DIABETIC EYE EXAM 1966 DIABETIC FOOT EXAM 1966 URINE MICROALBUMIN 1966 CERVICAL CANCER SCREENING PAP ONLY 1977 (Age 21-65) LIPID PANEL 2001 DEPRESSION SCREENING (12+) 09/15/2019 INFLUENZA VACCINE (#1) 2020 06/15/2019, 10/21/2018, 06/23/2017, Additional history exists HEMOGLOBIN A1C 12/17/2020 06/18/2020, 11/02/2016, 11/01/2016, Additional history exists Implants Implanted Type Area Agricultural Agent Device Identifier Shelf Model / Expiration Serial / Date Lot Anastacia Frederick T2 [id number] Ss 1806-0085s - [id number] IMPLANTS Right: FABIAN:FABIAN [id number] 12/13/2024 1806-0085S / Implanted: Qty: 1 on 06/21/2020 by Luis Angel العلي MD at [facility] [employer] / [id number] Scr Barney T2ft 5x75mm Ti Strl 1896-5075s - [id number] IMPLANTS Right: FABIAN:FABIAN [id number] 04/14/2025 [id number] / Implanted: Qty: 1 on 06/21/2020 by Luis Angel العلي MD at [facility] [employer] / [id number] Scr Barney T2ft 5x90mm Ti Strl 1896-5090s - [id number] IMPLANTS Right: FABIAN:FABIAN [id number] 12/13/2024 [id number] / Implanted: Qty: 1 on 06/21/2020 by Luis Angel العلي MD at [facility] [employer] / [id number] Scr Barney T2ft 5x80mm Ti Strl 1896-5080s - [id number] IMPLANTS Right: FABIAN:FABIAN [id number] 03/14/2025 1896-5080S / Implanted: Qty: 1 on 06/21/2020 by Luis Angel العلي MD at [facility] [employer] / [id number] Scr Barney T2ft 5x37.5mm Ti Str 1896-5037s - [id number] IMPLANTS Right: FABIAN:FABIAN [id number] 04/14/2025 1896-5037S / Implanted: Qty: 1 on 06/21/2020 by Luis Angel العلي MD at [facility] [employer] / [id number] Scr Barney T2ft 5x37.5mm Ti Str [id number] - [id number] IMPLANTS Right: FABIAN:FABIAN [id number] 01/12/2025 1896-5037S / Implanted: Qty: 1 on 06/21/2020 by Luis Angel العلي MD at [facility] [employer] / [id number] Gwire Im Ball T2 [id number] Ss [id number] - [id number] IMPLANTS Right: FABIAN:FABIAN [id number] 04/14/2025 1806-0085S / Implanted: Qty: 1 on 06/21/2020 by Luis Angel العلي MD at [facility] [employer] / [id number] Supracondylar Nail [id number] Right: FABIAN [id number] 07/15/2024 1826-1236S / Implanted: Qty: 1 on 06/21/2020 by Luis Angel العلي MD at [facility] Femur / [id number] Procedures Procedure Name Priority Date/Time Associated Diagnosis Comme nts POCT-GLUCOSE METER Routine 06/26/2020 4:17 Resul ts for this PM CDT procedure are i n the results section. POCT-GLUCOSE METER Routine 06/26/2020 12:37 Resul ts for this PM CDT procedure are i n the results section. POCT-GLUCOSE METER Routine 06/26/2020 8:33 Resul ts for this AM CDT procedure are i n the results section. CBC W/PLT COUNT & Routine 06/26/2020 4:16 Result s for this AUTO DIFFERENTIAL AM CDT procedure are in the results section. BASIC METABOLIC PANEL Routine 06/26/2020 4:16 Re sults for this (7) AM CDT procedure are i n the results section. CBC W/PLT COUNT & Routine 06/26/2020 4:16 Result s for this AUTO DIFFERENTIAL AM CDT procedure are in the results section. POCT-GLUCOSE METER Routine 06/25/2020 8:45 Resul ts for this PM CDT procedure are i n the results section. POCT-GLUCOSE METER Routine 06/25/2020 4:22 Resul ts for this PM CDT procedure are i n the results section. POCT-GLUCOSE METER Routine 06/25/2020 12:02 Resul ts for this PM CDT procedure are i n the results section. POCT-GLUCOSE METER Routine 06/25/2020 7:53 Resul ts for this AM CDT procedure are i n the results section. POCT-GLUCOSE METER Routine 06/25/2020 5:55 Resul ts for this AM CDT procedure are i n the results section. CBC W/PLT COUNT & Routine 06/25/2020 3:33 Result s for this AUTO DIFFERENTIAL AM CDT procedure are in the results section. CBC W/PLT COUNT & Routine 06/25/2020 3:33 Result s for this AUTO DIFFERENTIAL AM CDT procedure are in the results section. POCT-GLUCOSE METER Routine 06/25/2020 12:28 Resul ts for this AM CDT procedure are i n the results section. POCT-GLUCOSE METER Routine 06/24/2020 5:55 Resul ts for this PM CDT procedure are i n the results section. POCT-GLUCOSE METER Routine 06/24/2020 11:54 Resul ts for this AM CDT procedure are i n the results section. POCT-GLUCOSE METER Routine 06/24/2020 8:36 Resul ts for this AM CDT procedure are i n the results section. CBC W/PLT COUNT & Routine 06/24/2020 4:38 Result s for this AUTO DIFFERENTIAL AM CDT procedure are in the results section. CBC W/PLT COUNT & Routine 06/24/2020 4:38 Result s for this AUTO DIFFERENTIAL AM CDT procedure are in the results section. POCT-GLUCOSE METER Routine 06/23/2020 9:15 Resul ts for this PM CDT procedure are i n the results section. POCT-GLUCOSE METER Routine 06/23/2020 11:07 Resul ts for this AM CDT procedure are i n the results section. FL FLUORO Routine 06/23/2020 8:12 Results for this NON-SPECIFIC UP TO 1 AM CDT procedu re are in HOUR the results section. CLOSED 06/23/2020 7:34 Anterior dislocation REDUCTION,SHOULDER AM CDT of left shoulder, initial encounter Special Needs (NO SPECIAL EQUIPMENT NEEDED ) POCT-GLUCOSE METER Routine 06/23/2020 5:28 AM CDT POCT-GLUCOSE METER Routine 06/22/2020 10:16 PM CDT ECG 12-LEAD Routine 06/22/2020 9:21 PM CDT Procedure Note - Interface, External Ris In - 06/22/2020 9:41 PM CDT Ventricular Rate 99 BPM Atrial Rate 99 BPM P-R Interval 148 ms QRS Duration 86 ms Q-T Interval 350 ms QTC Calculation(Bazett) 449 ms P [place] 39 degrees R Sil[place] -2 degrees T [place] 112 degrees Normal sinus rhythm Minimal voltage criteria for LVH, may be normal variant Abnormal QRS-T angle, consid er primary T wave abnormality Abnormal ECG When compared with ECG of 20:01, No significant change was fo und ECG 12-LEAD Routine 06/22/2020 9:21 PM Results for this CDT procedure are i n the results section. HEMOGLOBIN AND Routine 06/22/2020 5:41 PM Result s for this HEMATOCRIT CDT procedure are i n the results section. POCT-GLUCOSE METER Routine 06/22/2020 11:30 AM Re sults for this CDT procedure are i n the results section. POCT-GLUCOSE METER Routine 06/22/2020 6:46 AM Re sults for this CDT procedure are i n the results section. CBC W/PLT COUNT & Routine 06/22/2020 4:41 AM Res ults for this AUTO DIFFERENTIAL CDT procedure are in the results section. LACTIC ACID, VENOUS Routine 06/22/2020 4:41 AM R esults for this CDT procedure are i n the results section. BASIC METABOLIC PANEL Routine 06/22/2020 4:41 AM Results for this (7) CDT procedure are i n the results section. CBC W/PLT COUNT & Routine 06/22/2020 4:41 AM Res ults for this AUTO DIFFERENTIAL CDT procedure are in the results section. POCT-GLUCOSE METER Routine 06/22/2020 12:01 AM Re sults for this CDT procedure are i n the results section. TRANSFUSION SERVICE 06/21/2020 6:01 PM REPORT - SCAN CDT POCT-GLUCOSE METER Routine 06/21/2020 3:24 PM Re sults for this CDT procedure are i n the results section. POCT-GLUCOSE METER Routine 06/21/2020 12:28 PM Re sults for this CDT procedure are i n the results section. CBC (HEMOGRAM ONLY) STAT 06/21/2020 10:43 AM R esults for this CDT procedure are i n the results section. POCT-GLUCOSE METER Routine 06/21/2020 9:45 AM Re sults for this CDT procedure are i n the results section. FL FLUORO Routine 06/21/2020 8:50 AM Results for this NON-SPECIFIC UP TO 1 CDT procedu re are in HOUR the results section. PROCEDURE W/ C-ARM 06/21/2020 7:17 AM Closed fracture of CDT distal end of femur, unspecified fracture morphology, unspecified laterality, initial encounter (HCC) Diabetes mellitus with no complication (HCC) Case Notes 2 HRS PER VERONICAPATIENT IS N'T A DIALYSIS PATIENT OKAYED BY [employer] 06/20 @ 1142 Special Needs (C-ARM, FABIAN) ORIF,FEMUR 06/21/2020 7:17 AM CDT Closed fracture o f distal end of femur, unspecified fracture morphol ogy, unspecified laterality, init ial encounter (HCC) Diabetes mellitus with no co mplication (HCC) Case Notes 2 HRS PER VERONICAPATIENT IS N'T A DIALYSIS PATIENT OKAYED BY [employer] 06/20 @ 1142 Special Needs (C-ARM, FABIAN) [...] 366 ms QTC Calculation(Bazett) 469 ms P Siloam 56 degrees R Siloam 16 degrees T Silo[place] 167 degrees Normal sinus rhythm Nonspecific T wave abnormali ty Abnormal ECG ECG 12-LEAD Routine 06/19/2020 9:24 AM CDT Procedure Note - Interface, External Ris In - 06/19/2020 10:06 AM CDT Ventricular Rate 95 BPM Atrial Rate 95 BPM P-R Interval 164 ms QRS Duration 94 ms Q-T Interval 354 ms QTC Calculation(Bazett) 444 ms P Siloam 54 degrees R Siloam 14 degrees T [place] 158 degrees Normal sinus rhythm Nonspecific T [...] 388 ms QTC Calculation(Bazett) 469 ms P Sil[place] 48 degrees R Siloam 8 degrees T Silo[place] 104 degrees Normal sinus rhythm Minimal voltage criteria for LVH, may be normal variant Abnormal QRS-T angle, consid er primary T wave abnormality Abnormal ECG No previous ECGs available ECG 12-LEAD Routine 06/17/2020 8:01 PM CDT Resu lts for this procedure are in the results section . after 09/21/2019 Results POC-Glucose meter (06/26/2020 4:17 PM CDT)Only the most recent of34 results within the time period is included. POC-Glucose Meter 119 (H) 70 - 110 mg/dL [facility] Comment: [facility] : TESTED AT [address] CENTER : Industrial Order Clerk/Fountain Dispenser ID = [id number] for Marleen Loyola Specimen Blood Performing Organization Address City/State/[place] [address] CENTER CBC with platelet count + automated diff (06/26/2020 4:16 AM CDT)Only the most recent of8 resultswithin the time period is included. Pathologist Sig nature WBC 9.8 3.5 - 10.5 [facility] K/L [facility] RBC 2.66 (L) 3.93 - 5.22 [facility] M/L [facility] Hemoglobin 8.3 (L) 11.2 - 15.7 [facility] GM/DL [facility] Hematocrit 27.8 (L) 34.1 - 44.9 % [facility] MCV 104.5 (H) 79.4 - 94.8 fL [facility] MCH 31.2 25.6 - 32.2 pg [facility] MCHC 29.9 (L) 32.2 - 35.5 [facility] GM/DL [facility] RDW 16.6 (H) 11.7 - 14.4 % [facility] Platelets 197 150 - 450 K/CU [facility] MPV 9.4 9.4 - 12.3 fL [facility] nRBC 1 (H) 0 - 0 /100 WBC [facility] % Neutros 71 % [facility] % Lymphs 13 % [facility] % Monos 7 % [facility] % Eos 5 % [facility] % Baso 1 % [facility] # Neutros 6.97 (H) 1.56 - 6.13 [facility] # Lymphs 1.25 1.18 - 3.74 [facility] # Monos 0.71 (H) 0.24 - 0.36 [facility] # Eos 0.47 (H) 0.04 - 0.36 [facility] # Baso 0.05 0.01 - 0.08 [facility] Immature 4 (H) 0 - 1 % [facility] [place] Specimen Blood Performing Organization Address City/State/Zipcode Phone Number [facility] [address] [place] [address] CENTER Basic Metabolic Panel (06/26/2020 4:16 AM CDT)Only the most recent of2 results within the time period is included. Sodium 140 136 - 145 meq/L [facility] Potassium 4.3 3.5 - 5.1 meq/L [facility] Chloride 101 98 - 107 meq/L [facility] CO2 33 (H) 22 - 29 meq/L [facility] BUN 16 7 - 21 mg/dL [facility] Creatinine 0.73 0.57 - 1.25 [facility] mg/dL [facility] Glucose 113 (H) 70 - 105 mg/dL [facility] Calcium 8.4 8.4 - 10.2 [facility] mg/dL [facility] EGFR 81Comment: ESTIMATED mL/min/1.73 sq [facility] GFR IS NOT m [facility] CREATININE CLEARANCE IN PREDICTING GLOMERULAR FILTRATION RATE. ESTIMATED GFR IS NOT APPLICABLE FOR DIALYSIS PATIENTS. Specimen Blood Narrative Performed At Industrial Order Clerk SWEETIE - KASIA Mittal [facility] Performing Organization Address City/State/Zipcode Phone Number [facility] [address] [place] [address] CENTER FL fluoro non-specific up to 1 hour (06/23/2020 8:12 AM CDT)Only the most recent of2 resultswithin the time period is included. Specimen Narrative Performed At Fluoroscopic unit utilized for a procedure performed i n the OR. No GE RIS interpretation was requested. Refer to the operative report for findings. Refer to PACS for patient radiation dose i nformation. Procedure Note Interface, External Ris In - 06/23/2020 1:22 PM CDT Fluoroscopic unit utilized for a procedu re performed in the OR. No interpretation was requested. Refer to the operative r eport for findings. Refer to PACS for patient radiation dose information. Performing Organization Address [facility] Phone Number GE RIS ECG 12 lead (06/22/2020 9:21 PM CDT)Only the most recent of2 resultswithin the time period is included. Specimen Narrative Performed At Ventricular Rate 99 BPM GE MUSE Atrial Rate 99 BPM P-R Interval 148 ms QRS Duration 86 ms Q-T Interval 350 ms QTC Calculation(Bazett) 449 ms P Siloam 39 degrees R Siloam -2 degrees T [place] 112 degrees Normal sinus rhythm Minimal voltage criteria for LVH, may be normal variant Abnormal QRS-T angle, consider primary T wave abnormality Abnormal ECG When compared with ECG of 17-JUN-2020 20 :01, No significant change was found Confirmed by MD BINH, SUPA Fields ([id number]) on 0 6:36:50 AM Procedure Note Interface, External Ris In - 06/23/2020 6:36 AM CDT Ventricular Rate 99 BPM Atrial Rate 99 BPM P-R Interval 148 ms QRS Duration 86 ms Q-T Interval 350 ms QTC Calculation(Bazett) 449 ms P Sil[place] 39 degrees R Siloam -2 degrees T Silo[place] 112 degrees Normal sinus rhythm Minimal voltage criteria for LVH, may be normal variant Abnormal QRS-T angle, consider primary T wave abnormality Abnormal ECG When compared with ECG of 17-JUN-2020 20 :01, No significant change was found Confirmed by MD BINH, SUPA Fields ([id number]) on 06/23/2020 6:36:50 AM Performing Organization Address City/State/Zipcode Phone Number [facility] Hemoglobin and hematocrit (06/22/2020 5:41 PM CDT) Pathologist Sig nature Hemoglobin 7.7 (L) 11.2 - 15.7 GM/DL [facility] Hematocrit 26.4 (L) 34.1 - 44.9 % [facility] Specimen Blood Narrative Performed At Industrial Order Clerk ID - [id number] [facility] Performing Organization Address [facility] Phone Number [facility] [address] [place] [address] [place] Lactic acid, venous (06/22/2020 4:41 AM CDT) Pathologist Sig nature Lactate, Venous 0.95 0.50 - 2.20 mmol/L [facility] Specimen Blood Narrative Performed At Industrial Order Clerk ID - KASIA M [facility] Performing Organization Address [facility] Phone Number [facility] [address] [place] [address] [place] TRANSFUSION SERVICE REPORT - SCAN (06/21/2020 6:01 PM CDT)Only the most recent of3 resultswithin the time period is included. Narrative Performed At This result has an attachment that is no t available. CBC (Hemogram only) (06/21/2020 10:43 AM CDT) WBC 27.9 (H) 3.5 - 10.5 [facility] K/[facility] RBC 3.37 (L) 3.93 - 5.22 [facility] M/L [facility] Hemoglobin 10.8 (L) 11.2 - 15.7 [facility] GM/DL [facility] Hematocrit 35.5 34.1 - 44.9 % [facility] MCV 105.3 (H) 79.4 - 94.8 fL [facility] Comment: [facility] MCV result compar ed to previous result; clinical correlation required CENTER MCH 32.0 25.6 - 32.2 pg [facility] MCHC 30.4 (L) 32.2 - 35.5 [facility] GM/DL [facility] RDW 16.5 (H) 11.7 - 14.4 % [facility] Platelets 254 150 - 450 K/CU [facility] MM [facility] MPV 9.9 9.4 - 12.3 fL [facility] nRBC 0 0 - 0 /100 WBC [facility] Specimen Blood Performing Organization Address City/State/Zipcode Phone Number [address] [address] CENTER Prepare Leuko-Red RBC (06/20/2020 11:54 PM CDT) Pathologist Sig nature CROSSMATCH COMPATIBLE SAFETRACE TX Unit ABO B Pos SAFETRACE TX UNIT NUMBER [phone] [place] Status TX_TIMEINCHART [facility] Blood Bank Product RED BLOOD CELLS [place] PRODUCT CODE [id number] [place] Specimen Other Performing Organization Address City/State/Zipcode Phone Number [employer] [place] XR pelvis 1 [...] no acute fracture, or dislocation. There is iuji-ll-owaihsdb o steoarthritis, as well as mild enthesopathy [...] Jennifer Rubio MD Report Verified Date/Time: 06/21/2020 13:36:41 Reading Location: [facility] Radiology Reading Room Procedure Note Interface, [...] no acute fracture, or dislocation. There is deco-bp-dhqxjfxj o steoarthritis, as well as mild enthesopathy [...] Verified Date/Time: 06/21/2020 1 3:36:41 Reading Location: [facility] Radiology Reading Room Performing Organization Address City/State/Zipcode Phone Number GE RIS XR shoulder 1 view left (06/20/2020 5:26 PM CDT) Specimen Narrative Performed At FINAL REPORT [employer] Radiograph of the left shoulder, left el [...] no acute fracture, or dislocation. There is phot-lc-jgifshqt o steoarthritis, as well as mild enthesopathy [...] Jennifer Rubio MD Report Verified Date/Time: 06/21/2020 13:36:41 Reading Location: [facility] Radiology Reading Room Procedure Note Interface, [...] no acute fracture, or dislocation. There is qwbp-vq-vxxqlppy o steoarthritis, as well as mild enthesopathy [...] Verified Date/Time: 06/21/2020 1 3:36:41 Reading Location: [facility] Radiology Reading Room Performing Organization Address [...] no acute fracture, or dislocation. There is qhfw-yo-feohczhz o steoarthritis, as well as mild enthesopathy [...] Jennifer Rubio MD Report Verified Date/Time: 06/21/2020 13:36:41 Reading Location: [facility] Radiology Reading Room Procedure Note Interface, [...] no acute fracture, or dislocation. There is yspw-tp-ccbykwue o steoarthritis, as well as mild enthesopathy [...] Verified Date/Time: 06/21/2020 1 3:36:41 Reading Location: [facility] Radiology Reading Room Performing Organization Address City/State/Zipcode Phone Number [id number] [place] Myocard imaging multi pharm planar (06/20/2020 3:41 PM CDT) Specimen Narrative Performed At FINAL REPORT [employer] PROCEDURE: MYOCARDIAL PERFUSION PLANAR I MAGING (2-Day Stress/Rest) CPT CODE: 06389 INDICATION: evaluate for presence of CAD , [...] Sarah Garcia MD Report Verified Date/Time: 06/20/2020 17:07:36 Reading Location: [address] Reading Room Procedure Note Interface, External Ris In - 06/20/2020 5:09 PM CDT FINAL REPORT PROCEDURE: MYOCARDIAL PERFUSION PLANAR I MAGING (2-Day Stress/Rest) CPT CODE: 28907 INDICATION: evaluate for presence of CAD , [...] Verified Date/Time: 06/20/2020 1 7:07:36 Reading Location: [address] Reading Room Performing Organization Address City/[facility] Phone Number [facility] Vitamin B12 and Folate (06/20/2020 4:32 AM CDT) Pathologist Sig nature Vitamin B12 467 213 - 816 pg/mL [facility] Folate 16.70 >=7.00 ng/mL [facility] Specimen Blood Narrative Performed At Industrial Order Clerk ID - [id number] [facility] Performing Organization Address City/[facility] Phone Number [address] [address] CENTER Calcium, Ionized (06/20/2020 4:32 AM CDT)Only the most recent of3 resultswithin the time period is included. Pathologist Sig nature Calcium, Ion 1.15 1.12 - 1.27 mmol/L [facility] pH, Blood 7.42 [facility] Specimen Blood Performing Organization Address [facility] Phone Number [address] [address] CENTER Phosphorus (06/20/2020 4:32 AM CDT)Only the most recent of3 resultswithin the time period is included. Pathologist Sig nature Phosphorus 2.4 2.3 - 4.7 mg/dL [facility] Specimen Blood Narrative Performed At Industrial Order Clerk ID - [facility] Performing Organization Address City/[facility]/Zipcode Phone Number [facility] [address] [place] [address] CENTER Magnesium (06/20/2020 4:32 AM CDT)Only the most recent of3 resultswithin the time period is included. Pathologist Sig nature Magnesium 1.7 1.6 - 2.6 mg/dL [facility] Specimen Blood Narrative Performed At Industrial Order Clerk ID - [facility] Performing Organization Address [facility] Phone Number [address] [address] [place] Comprehensive metabolic panel (06/20/2020 4:32 AM CDT)Only the most recent of4 resultswithin the time period is included. Protein, Total 6.9 6.0 - 8.3 [facility] gm/dL [facility] Albumin 3.4 (L) 3.5 - 5.0 [facility] g/dL [facility] Alkaline 49 40 - 150 U/L [facility] Phosphatase [facility] Total Bilirubin 1.1 0.2 - 1.2 [facility] mg/dL [facility] Sodium 142 136 - 145 [facility] meq/L [facility] Potassium 4.4 3.5 - 5.1 [facility] meq/L [facility] Chloride 101 98 - 107 [facility] meq/L [facility] CO2 33 (H) 22 - 29 meq/L [facility] BUN 28 (H) 7 - 21 mg/dL [facility] Creatinine 0.81 0.57 - 1.25 [facility] mg/dL [facility] Glucose 131 (H) 70 - 105 [facility] mg/dL [facility] Calcium 9.1 8.4 - 10.2 [facility] mg/dL [facility] AST 15 5 - 34 U/L [facility] ALT 10 6 - 55 U/L [facility] EGFR 71Comment: mL/min/1.73 [facility] ESTIMATED GFR IS sq m [facility] NOT ACCURATE MEDICAL CENTER CREATININE CLEARANCE IN PREDICTING GLOMERULAR FILTRATION RATE. ESTIMATED GFR IS NOT APPLICABLE FOR DIALYSIS PATIENTS. Specimen Blood Narrative Performed At Industrial Order Clerk ID - [facility] Performing Organization Address City/State/Zipcode Phone Number [facility] [address] [place] [address] CENTER Transfuse Leuko-Red RBC (06/19/2020 8:26 PM CDT)Treadmill tolerance(Non-Nuclear Treadmill) (06/19/2020 9:45 AM CDT) Specimen Narrative Performed At Protocol Name REGADENOSON EXENDIS Time In Exercise Phase 00:01:00 Max. Systolic [...] - 06/21/2020 2:44 PM CDT Protocol Name REGADENOSON Time In Exercise Phase 00:01:00 [...] PM Performing Organization Address City/State/Zipcode Phone Number GE MUSE SARS-CoV2/RT-PCR (Asymptomatic ONLY) (06/19/2020 5:13 AM CDT) SARS-COV2/RT-PCR Negative Not Detected, [facility] Negative, See [facility] external report CENTER for linked test SARS-COV-2 [facility] NICK [facility] JOSE PERFORMING LAB [facility] Specimen Other - Nasopharyngeal wall structure (b cm structure) Narrative Performed At Negative result for this test determines that [facility] SARS-CoV-2 RNA was not present in the [...] the Act. Fact Sheet for Healthcare Providers: https://www.PoachIt/sites/default/files/pro duct/documents/Fact_Sheet_HC_Providers_Lyra_SA RS-CoV-2.pdf Fact Sheet for Healthcare Patients: https://www.PoachIt/sites/default/files/pro duct/documents/Fact_Sheet_Patients_Lyra_SARS-C oV-2.pdf Performing Laboratory: [address] [address] Performing Organization Address [facility] Phone Number [address] [address] CENTER ABORH, manual (06/18/2020 10:08 PM CDT) Pathologist Sig nature Rh Factor POS [facility] DICAL [place] ABO Grouping B [facility] Specimen Blood Performing Organization Address [facility]/Zipcode Phone Number [address] [address] Type and screen, automated (06/18/2020 5:02 PM CDT) Pathologist Sig nature ABO/RH AUTOMATED B POSITIVE [facility] Ab Scrn NEGATIVE [facility] Specimen Blood Performing Organization Address [facility] Phone Number [address] [address] Troponin I (06/18/2020 9:31 AM CDT)Only the most recent of2 resultswithin the time period is included. Pathologist Sig nature Troponin I 0.02 0.00 - 0.03 ng/mL [facility] Specimen Blood Narrative Performed At Troponin I (TnI) levels must be interpreted [facility] in the context of the presenting symptoms and the clinical findings. Elevated TnI levels indicate myocardial damage, but are not specific for ischemic heart disease. Elevated TnI levels are seen in patients with other cardiac conditions (including myocarditis and congestive heart failure), and slight TnI elevations occur in patients with other conditions, including sepsis, renal failure, acidosis, acute neurological disease, and persistent tachyarrhythmia. Industrial Order Clerk SWEETIE - GWYN Performing Organization Address [facility] Phone Number [address] [address] CENTER TSH/Free T4 If Indicated (06/18/2020 5:44 AM CDT) Pathologist Sig nature TSH 76.986 (H) 0.350 - 4.940 [facility] uIU/mL [facility] Specimen Blood Narrative Performed At Industrial Order Clerk ID - [facility] Performing Organization Address [facility] Phone Number [address] [address] [place] T4, free (06/18/2020 5:44 AM CDT) Pathologist Sig nature Free T4 <0.40 (L) 0.70 - 1.48 ng/dL [facility] Specimen Blood Narrative Performed At Industrial Order Clerk ID - GWYN [facility] Performing Organization Address [facility] Phone Number [address] [address] [place] B-type Natriuretic Factor (BNP) (06/18/2020 5:44 AM CDT) Pathologist Sig nature BNP 35 0 - 100 pg/mL [facility] Specimen Blood Narrative Performed At Industrial Order Clerk ID - [facility] Performing Organization Address [facility] Phone Number [address] [address] CENTER Hemoglobin A1c (06/18/2020 5:44 AM CDT) Pathologist Sig nature Hemoglobin A1C 5.4 4.3 - 6.1 % [facility] Specimen Blood Performing Organization Address City/State/Zipcode Phone Number [facility] [address] [place] [address] CENTER 2D Echo W/Doppler(CW/PW/Color) (06/17/2020 10:02 PM CDT) Pathologist Sig nature Ejection Fraction [facility] ECHO [facility] Specimen Narrative Performed At Transthoracic Echocardiography Report (T TE) [facility] Demographics Patient Name ROSIO WADE Date of Study 06/17/2020 FIORELLA Gender Female Visit Number [id number] Race Unknown Room Number 1523 Number Date of 1955 Referring Physician MARINA ZEE Age 64 year(s) 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 Normal LV wall thickness. Global LV systolic function normal . Estimated LVEF by qualitative assessment is normal (55-60%) . Left Atrium LA size is normal . Right Ventricle Normal right ventricle structure and function. Right Atrium Normal righ t atrium. Aortic Valve Mild AoV cusp thickening. Mitral Valve Normal MV s tructure. Tricuspid Valve Mild tricuspid regurgitation. Estimated peak systolic PA pressure is 35-40 mmHg . Pulmonic Valve PV is not well visualized. Aorta Aortic root size (SInus of Valsalva diameter) is norm al . Pericardium No evidence of pericardial effusion. IVC/SVC/PA/PV/Pleural The estimated [...] Demographics Patient Name ROSIO WADE Date o f Study 06/17/2020 FIORELLA Gender Female Visit Number [id number] Race Unknown [place] [address] Number Date of 1955 Referr ing Physician MARINA ZEE Age 64 year(s) Sonogr suresh Reyna [facility] Claudette Parekh MD Procedure Type of Study TTE procedure:2DECHO [...] City/State/Zipcode Phone Number [facility] ECHO [facility]ART[facility] CPACS after 09/21/2019 Insurance Payer Benefit Plan / Subscriber ID Effective Dates Phone Addre ss Type Group [employer] [id number] 2019-Present MEDICARE MGD CARE CIGNA - MGD CARE CIGNA 02 2003-Present HMO/POS HMO/POS/OPEN ACCESS (Home) [place] [address] Advance Directives For more information, please contact: [phone] Code Status Date Activated Date Inactivated Comments Full Code 06/17/2020 6:22 PM 06/26/2020 11:06 PM This code status was determined by: Patient Full Code 10/30/2016 9:08 PM 11/05/2016 3:11 PM This code status was determined by: Patient
--- OUTSIDE RECORDS SUMMARY | 2020-09-21 19:43 | XMS REPORT | Continuity of Care Document ---
:1955 Author Organization [facility] t Address [address] [place] [address] Support Name Relationship Address Phone Cristobal Spouse [address] [place] [address] [place] [address] L Cristobal Sp[address] [place] [address] Cristobal [phone] [place] [address] [employer] Child [address] [place] [address] Care Team Providers Name Role Phone Clay Fong MD Primary Care Physician Ajit BORREGO Attending Clinician Nadia Powers LMSW Attending Clinician Duarte RN, E Attending Clinician Kimberly Shrestha MD Attending Clinician [phone] Saadia BORREGO Attending Clinician Dakotah BORREGO Attending Clinician Manjinder Nation MD Attending Clinician Kee Littlejohn MD Attending Clinician Basilio Morejon MD Attending Clinician Rodrick BORREGO Attending Clinician KIMBERLY SHRESTHA Attending Clinician Unavailable GAL MULLEN Attending Clinician Unavailable SAADIA Admitting Clinician Unavailable GAL MULLEN Admitting Clinician Unavailable Payers Payer Name Policy Type Policy Effective Date Expiration Date Sour ce Number [employer]LL[employer] MEDICARE [id number] [facility] MGD CAREWELLCARE 00:00:00 - Medica l [id number] Center 20-Present CIGNA - MGD [address] [facility] CARECIGNA 00:00:00 - Medical HMO/POS/OPEN Center [id number] -Present HMO/POS Problems Condition Condition Condition Status Onset Resolution Last Treating Co mments Source Name Details Category Date Date Treatment Clinician Date Closed Closed Disease Active 2019-[address] [facility] anterior anterior 0-09 [facility] - dislocatio dislocatio 00:00: Me dical n of left n of left 00 Cent er shoulder, shoulder, initial initial encounter encounter Femoral Femoral Disease Active 2019-[address] [facility] distal distal 0-03 [facility] - fracture fracture 00:00: Medica l 00 Center Chronic Chronic Disease Active 2019-[address] [facility] [address] bronchitis bronchitis 0-03 Amy kes - 00:00: Medical 00 [place] HTN HTN Disease Active 2019-[address] (hypertens (hypertens 0-03 Amy kes - ion) ion) 00:00: Medical 00 [place] Acquired Acquired Disease Active 2019-09 [facility] hypothyroi hypothyroi 0-03 Amy kes - dism dism 00:00: Medical 00 [place] VTE VTE Disease Active 2019-[address] [facility] (venous (venous 0-03 [facility] - thromboemb thromboemb 00:00: Me dical olism) olism) 00 Center 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 [facility] or or 0-01 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 00:00: Pr actic dependence Dependence 00 e Recurrent Recurrent Problem Active Diaz isabella major Major 9 Family depression Depression 00:00: Pr actic 00 e SARS-CoV-2 SARS-CoV-2 Problem Active [facility] 05-24 Family 00:00: Practic 00 e Depression Depression Problem Active [facility] screening Screening 827 Fami ly positive Positive 00:00: Practi c 00 e Insomnia Insomnia Problem Active [facility] 03-12 Family 00:00: Practic 00 e Hypothyroi Hypothyroi Problem Active [facility] dism dism 6-24 Family 00:00: Practic 00 e 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 6-24 Family 00:00: Practic 00 e Chronic Chronic Problem Active [facility] back pain Back Pain 6-24 Fami ly 00:00: Practic 00 e Bilateral Bilateral Problem Active [facility] is[facility] knee pain Knee Pain 6-24 Fami ly 00:00: Practic 00 e Chronic Chronic Problem Active [facility] gout Gout 1-17 Family without without 00:00: Practic tophus Tophus 00 e Morbid Morbid Disease Active [place] obesity obesity 3-30 [facility] with BMI with BMI 00:00: st of of 00 50.0-59.9, 50.0-59.9, adult adult Acute Acute Disease Active [place] renal renal 3-21 [facility] failure failure 00:00: st 00 [place] Disease [place] fistula l fistula 2-05 Meth justina 00:00: st 00 Chronic Chronic Problem Active 2016-09 [facility] low back Low Back 2-12 Family pain Pain 00:00: Practic 00 e Osteoarthr Osteoarthr Problem Active [facility] itis itis 5-03 Family 00:00: Practic 00 e Leukocytos Leukocytos Disease Active [facility] is is 2-16 [facility] - 00:00: Medical 00 Center DM DM Disease Active [facility] (diabetes (diabetes 2-16 [facility] - mellitus), mellitus), 00:00: Me dical type 2 type 2 00 Center Diverticul Diverticul Disease Active [facility] itis itis 2-15 [facility] - 00:00: Medical 00 Center Type 2 Type 2 Problem Active 2006-09 [facility] diabetes Diabetes 0-11 Family mellitus Mellitus 00:00: Practi c 00 e Benign Benign Problem Active 2006-09 [facility] essential Essential 0-11 Fami ly hypertensi Hypertensi 00:00: Pr actic on on 00 e Allergies, Adverse Reactions, Alerts This patient has no known allergies or adverse reactions. Social History Social Habit Start Date Stop Date Quantity Comments Source Sex Assigned [facility] Alcohol intake 2020-06-26 2020[facility]06[facility] Tobacco use and 2017-12-02 2017-12-02 Never used Gill M ethodist exposure 00:00:00 00:00:00 Smoking Status Start Date Stop Date Source Never sm[facility] Medications Ordered Filled Start Stop Current Ordering Indication Dosage Frequency Signature Comments Components Source Medication Medication Date Date Medication? Clinician (SIG) Name Name sebastian 2019-09 Yes 175ug Take [address] [facility] ne 0-12 tablet [facility] - (SYNTHROID, 00:00: (175 mcg Me dical LEVOTHROID) 00 total) by [facility] ter 175 MCG mouth tablet Every morning on an empty stomach. metoprolol 2019-09 Yes 12.5mg Q.5D Take 0.[address] tartrate 0-12 tablets [facility] - (LOPRESSOR) 00:00: (12.5 mg Me dical 25 MG 00 total) by Center tablet mouth 2 (two) times daily. rivaroxaban 2019-09 Yes 20mg Take [address] [facility] (XARELTO) 0-12 tablet (20 Luke s - 20 mg Tab 00:00: mg total) Med ical tablet 00 by mouth Center daily with dinner. senna 2019-09- Yes 8.6mg Take [address] (SENOKOT) 0-12 10-12 tablet [facility] - 8.6 mg 00:00: 23:59 (8.6 mg Medical tablet 00 :00 total) by Center mouth every night as needed for Constipati on. gabapentin 2019-09- Yes 300mg Q.5D Take [address] [facility] (NEURONTIN) 0-12 10-12 capsule Luke s - 300 MG 00:00: 23:59 (300 mg Medical capsule 00 :00 total) by Center mouth 2 (two) times daily. ipratropium 2019-09- Yes 3mL Take [address] [facility] -albuteroL 0-12 10-07 by Marycruz - (DUO-NEB) 00:00: 23:59 nebulizati M edical 0.5 mg-3 00 :00 on every 4 Cente r mg(2.5 mg (four) base)/3 mL hours for nebulizer 360 days. solution HYDROcodone 2019-09 2020- No 1{tbl} Take [address] -acetaminop 0-12 10-27 tablet by Amy carranza (NORCO 00:00: 23:59 mouth Medic al 10-325) 00 :00 every 4 Center 10-325 mg (four) per tablet hours as needed for up to 15 days. Max Daily Amount: 6 tablets HYDROcodone 2019-09 2020- No 1{tbl} Take [address] -acetaminop 0-12 10-12 tablet by Amy carranza (NORCO 00:00: 00:00 mouth Medic al 10-325) 00 :00 every 6 Center 10-325 mg (six) per tablet hours as needed for up to 10 days. Max Daily Amount: 4 tablets Xarelto 20 Xarelto 20 2019- No Xarelto 20 [place] mg tablet mg tablet 5-22 mg tablet Family 00:00: Practic 00 e tizanidine tizanidine No tizanidine [place] 4 mg tablet 4 mg tablet 5-11 4 mg F amily and and 00:00: tablet and Practic irritant-co irritant-co 00 irritant-c e unter unter ounter irritant irritant irritant comb.no.2 comb.no.2 comb.no.2 gel kit gel kit gel kit hydrochloro hydrochloro 2018-09 No hydrochlor [facility] thiazide thiazide 0-02 othiazide Fa lana 12.5 mg 12.5 mg 00:00: 12.5 mg Prac tic capsule capsule 00 capsule e levothyroxi Yes 175ug QD Take 175 [place] 4-05 mcg by Methodi (SYNTHROID, 15:53: mouth st LEVOXYL) 29 every 175 mcg morning. tablet albuterol Yes 2{puff} Q6H Inhale 2 [place] (PROAIR 4-03 puffs [facility] HFA,PROVENT 13:48: every 6 st [place] 08 (six) HFA,VENTOLI hours as N HFA) 90 needed for mcg/actuati wheezing. on inhaler ALPRAZolam Yes 1mg [id number] Take 1 mg Gill (XANAX) 1 4-03 [id number] by mouth 3 Methodi MG tablet 13:48: [...] tablet day as needed (arthritis pain). ferrous Yes 1{tbl} QD Take 1 [place] fumarate-fo 4-03 tablet by Met pattyi lic acid 13:48: mouth st (HEMATINIC/ 08 nightly. FOLIC ACID) 324 mg (106 mg iron)-1 mg tablet per tablet rivaroxaban Yes 20mg QD Take 20 mg Gill [...] 62.5-25 mcg/actuati on blister with device valsartan-h 2019- No [facility] ydrochlorot -16 - [facility] - hiazide 00:00: 00:00 Medical (DIOVAN-HCT 00 :00 Center ) 320-25 mg per tablet HEMATINIC/F Yes [facility] OLIC ACID - [facility] - 324 mg (106 00:00: Medica l mg iron)- 00 Center mg Tab citalopram 2015-[address] (CELEXA) 20 2- [facility] - MG tablet 00:00: Medical 00 [place] furosemide 2015-09- No [facility] (LASIX) 20 2- 10- [facility] - MG tablet 00:00: 00:00 Medical 00 :00 [place] levothyroxi 2015-09- No [facility] ne -11 22- [facility] - (SYNTHROID, 00:00: 00:00 Medic al LEVOTHROID) 00 :00 [place] 150 MCG tablet metoprolol 2015-09- No [facility] (LOPRESSOR) 10-18- [facility] - 50 MG 00:00: 00:00 Medical tablet 00 :00 [place] potassium 2015-09- No [facility] citrate - 10- [facility] - (UROCIT-K) 00:00: 00:00 Medica l 10 mEq 00 :00 [place] (1,080 mg) SR tablet zolpidem 2015-[address] (AMBIEN) 10 - [facility] - mg tablet 00:00: Medical 00 [place] albuterol albuterol No albuterol [place] sulfate 2.5 sulfate 2.5 sulfate Family mg/3 mL mg/3 mL 2.5 mg/3 Pract ic (0.083 %) (0.083 %) mL (0.083 e solution solution %) for for solution nebulizatio nebulizatio for n n nebulizati on albuterol albuterol No albuterol [place] sulfate HFA sulfate HFA sulfate Family 90 90 HFA 90 Practic mcg/actuati mcg/actuati mcg/actuat e on aerosol on aerosol ion inhaler inhaler aerosol inhaler allopurinol allopurinol No allopurino [place] 100 mg 100 mg l 100 mg Family tablet Take tablet Take tablet Practic 1 tablet 1 tablet Take 1 e every day every day tablet by oral by oral every day route. route. by oral route. alprazolam alprazolam No alprazolam [facility] 1 mg tablet 1 mg tablet 1 mg F amily tablet Practic e amoxicillin amoxicillin No amoxicilli [facility] [phone] 875 Family mg-potassiu mg-potassiu mg-potassi Practic m m um e clavulanate clavulanate clavulanat 125 mg 125 mg e 125 mg tablet tablet tablet azithromyci azithromyci No azithromyc [facility] n 250 mg n 250 mg in 250 mg Fa lana tablet tablet tablet Practic e benzonatate benzonatate No benzonatat [facility] 200 mg 200 mg e 200 mg Family capsule capsule capsule Practi c e Breo Breo No Breo [facility] Ellipta 200 Ellipta 200 Ellipta Family mcg-25 mcg-25 200 mcg-25 Pract ic mcg/dose mcg/dose mcg/dose e powder for powder for powder for inhalation inhalation inhalation citalopram citalopram No citalopram [facility] 20 mg 20 mg 20 mg Family tablet tablet tablet Practic e clobetasol clobetasol No clobetasol [facility] 0.05 % 0.05 % 0.05 % Family topical topical topical Practi c ointment ointment ointment e cyclobenzap cyclobenzap No cyclobenza [facility] rine 7.5 mg rine 7.5 mg festus [...] by oral route. fluconazole fluconazole No fluconazol [facility] 150 mg 150 mg e 150 mg Family tablet tablet tablet Practic e furosemide furosemide No furosemide [facility] 20 mg 20 mg 20 mg Family tablet 20 tablet 20 tablet 20 Practic mg by oral mg by oral mg by oral e route. route. route. Hematinic/F Hematinic/F No Hematinic/ [facility] olic Acid olic Acid Folic Acid Family 324 mg (106 324 mg (106 324 mg Practic mg iron)-1 mg iron)-1 (106 mg e mg tablet mg tablet iron)-1 mg 1 {tbl} by 1 {tbl} by tablet 1 oral route. oral route. {tbl} by oral route. hydrocodone hydrocodone No hydrocodon [facility] 10 10 e 10 Family mg-acetamin mg-acetamin mg-acetami Practic ophen 325 ophen 325 nophen 325 e mg tablet mg tablet mg tablet 1 {tbl} by 1 {tbl} by 1 {tbl} by oral route. oral route. oral route. levothyroxi levothyroxi No 1 Q1D levothyrox [facility] ne 75 mcg ne 75 mcg ine 75 mcg Family tablet Take tablet Take tablet Practic 1 tablet 1 tablet Take 1 e every day every day tablet by oral by oral every day route. route. by oral route. metformin metformin No metformin [facility] 500 mg 500 mg 500 mg Family tablet tablet tablet Practic e methylpredn methylpredn No methylpred [facility] isolone 4 isolone 4 nisolone 4 Family mg tablets mg tablets mg tablets Practic in a dose in a dose in a dose e pack pack pack metoprolol metoprolol No metoprolol [facility] succinate succinate succinate Family ER 50 mg ER 50 mg ER 50 mg Pra ctic tablet,exte tablet,exte tablet,ext e nded nded ended release 24 release 24 release 24 hr 50 mg hr 50 mg hr 50 mg by oral by oral by oral route. route. route. potassium potassium No potassium [facility] citrate ER citrate ER citrate ER [facility] 10 mEq 10 mEq 10 mEq Practic (1,080 mg) (1,080 mg) (1,080 mg) e tablet,exte tablet,exte tablet,ext nded nded ended release release release prednisone prednisone No prednisone [facility] 10 mg 10 mg 10 mg Family tablet tablet tablet Practic e pregabalin pregabalin No pregabalin [facility] 150 mg 150 mg 150 mg Family capsule capsule capsule Practi c e ProAir ProAir No ProAir [facility] RespiClick RespiClick RespiClick Family 90 90 90 Practic mcg/actuati mcg/actuati mcg/actuat e on breath on breath ion breath activated activated activated tizanidine tizanidine No 1capsul Q6H tizanidine [facility] 4 mg 4 mg e(s) 4 mg Family capsule capsule capsule Practi c Take 1 Take 1 Take 1 e capsule capsule capsule every 6 every 6 every 6 hours by hours by hours by oral route. oral route. oral route. triamcinolo triamcinolo No triamcinol [facility] ne ne one Family acetonide acetonide acetonide Practic 0.147 0.147 0.147 e mg/gram mg/gram mg/gram topical topical topical aerosol aerosol aerosol valsartan valsartan No 1 Q1D valsartan [facility] 320 320 320 Family mg-hydrochl mg-hydrochl mg-hydroch Practic orothiazide orothiazide lorothiazi e 12.5 mg 12.5 mg de 12.5 mg tablet Take tablet Take tablet 1 tablet 1 tablet Take 1 every day every day tablet by oral by oral every day route. route. by oral route. Kimmyxannabella Onealxannabella No Kimmyxannabella [facility] Inhub 250 Inhub 250 Inhub 250 Family [...] Source Name Name influenza, influenza, 2019-06-15 Completed [facility] injectable, injectable, 00:00:00 Practice quadrivalent quadrivalent Vital Signs Vital Name Observation Time Observation Value Comments Source Height 2020-06-12 00:00:00 68 [in_i] [facility] Height 2020-05-24 00:00:00 68 [in_i] [facility] Height 2020-03-08 00:00:00 68 [in_i] [facility] BMI (Body Mass Index) 2020-03-08 00:00:00 35 kg/m2 [facility] Body Weight 2020-03-08 00:00:00 230 [lb_av] [facility] Systolic blood 2020-06-26 16:12:00 132 mm[Hg] [facility] Diastolic blood 2020-06-26 16:12:00 68 mm[Hg] [facility] Heart rate 2020-06-26 16:12:00 103 /min [facility] Body temperature 2020-06-26 16:12:00 36.39 Cassy [facility] Respiratory rate 2020-06-26 16:12:00 18 /min [facility] Oxygen saturation in 2020-06-26 16:12:00 96 /min [facility] - Arterial blood by Medical Ce nter Pulse oximetry Body height 2020-06-17 16:00:00 175.3 cm [facility] Body weight 2020-06-17 16:00:00 139.708 kg [facility] BMI 2020-06-17 16:00:00 45.48 kg/m2 [facility] Procedures Procedure Date / Time Performed Performing Clinician Sour e POCT-GLUCOSE METER 2020-06-26 16:17:00 [facility] 2020-06-26 12:37:00 Dakotah [facility] POCT-GLUCOSE METER 2020-06-26 08:33:00 Dakotah [facility] BASIC METABOLIC PANEL (7) 2020-06-26 04:16:00 Luke Claire [facility] CBC W/PLT COUNT & AUTO 2020-06-26 04:16[facility] 2020-06-25 20:45:00 [facility]SE [facility]ER 2020-06-25 16:22:00 [facility] PO[facility]SE METER 2020-06-25 12:02:00 [facility] PO[facility]SE METER 2020-06-25 07:53:00 [facility] PO[facility]SE METER 2020-06-25 05:55:00 [facility] CBC W/PLT COUNT & AUTO 2020-06-25 03:33:00 [facility] POCT-GLUCOSE METER 2020-06-25 00:28:00 [place] POCT-GLUCOSE METER 2020-06-24 17:55:00 [facility] PO[facility]SE METER 2020-06-24 11:54:00 [place] POCT-GLUCOSE METER 2020-06-24 08:36:00 [facility] CBC W/PLT COUNT & AUTO 2020-06-24 04:38:00 [facility] PO[facility]SE [facility]ER 2020-06-23 21:15:00 [facility] POCT-GLUCOSE METER 2020-06-23 11:07:00 [facility] FL FLUORO NON-SPECIFIC UP 2020-06-23 08:12:00 Luis Angel Nation [facility] 1 [facility] CLOSED REDUCTION,SHOULDER 2020-06-23 07:34:00 Luis Angel Nation [facility] POCT-GLUCOSE METER 2020-06-23 05:28:00 [facility] POCT-GLUCOSE METER 2020-06-22 22:16:00 [facility] ECG 12-LEAD 2020-06-22 21:21:16 Unknown, Hl7 [facility] HEMOGLOBIN AND HEMATOCRIT 2020-06-22 17:41:00 [facility] PO[facility]-GLUCOSE METER 2020-06-22 11:30:00 [facility] POCT-GLUCOSE METER 2020-06-22 06:46:00 [facility] BASIC METABOLIC PANEL (7) 2020-06-22 04:41:00 [facility] LACTIC ACID, VENOUS 2020-06-22 04:41:00 Dakotah [facility] CBC W/PLT COUNT & AUTO 2020-06-22 04:41:00 Dakotah Luke [facility] POCT-GLUCOSE METER 2020-06-22 00:01:00 [facility] TRANSFUSION SERVICE 2020-06-21 18:01:23 Provider, Shanon [facility] REPORT - SCAN [facility] POCT-GLUCOSE METER 2020-06-21 15:24:00 [facility] POCT-GLUCOSE METER 2020-06-21 12:28:00 [facility] CBC (HEMOGRAM ONLY) 2020-06-21 10:43:00 Jean-PierreAlen [facility] POCT-GLUCOSE METER 2020-06-21 09:45:00 [facility] [place] FLUORO NON-SPECIFIC UP 2020-06-21 08:50:00 Luis Angel Nation [facility] 1 HOUR [facility] ORIF,FEMUR 2020-06-21 07:17:00 Luis Angel Nation [facility] PROCEDURE W/ C-ARM 2020-06-21 07:17:00 Luis Angel Nation [facility] PREPARE LEUKO-REDUCED RBC 2020-06-20 23:54:[address] [facility] POCT-GLUCOSE METER 2020-06-20 23:34:00 [facility] 2020-06-20 18:39:00 [facility]SF[facility] 2020-06-20 18:21:03 Provider, Default [facility] REPORT - SCAN [facility] XR PELVIS 1 OR 2 VIEWS 2020-06-20 18:13:00 Luis Angel Nation [facility] XR ELBOW LEFT (MIN 3 2020-06-20 17:26:00 [facility] XR SHOULDER 1 VIEW LEFT 2020-06-20 17:26:00 Herve Zee [facility] NM MYOCARD IMAGING MULTI 2020-06-20 15:41:00 Elizabeth Butler CH I [facility] - PHARM PLANAR [facility] POCT-GLUCOSE METER 2020-06-20 12:20:00 Herve Zee [facility] POCT-GLUCOSE METER 2020-06-20 06:07:00 Herve Zee [facility] COMPREHENSIVE METABOLIC 2020-06-20 04:32:00 Herve Zee [facility] VITAMIN B12 AND FOLATE 2020-06-20 04:32:00 Ana Leon[facility] CALCIUM, IONIZED 2020-06-20 04:32:00 Herve Zee [facility] PHOSPHORUS 2020-06-20 04:32:00 Herve Zee [facility] MAGNESIUM 2020-06-20 04:32:00 Herve Zee [facility] CBC W/PLT COUNT & AUTO 2020-06-20 04:32:00 Herve Zee CH I [facility] POCT-GLUCOSE METER 2020-06-19 21:05:00 Herve Zee [facility] TRANSFUSE LEUKO-REDUCED 2020-06-19 20:26:24 Scot Shaver [facility] - RED BLOOD CELLS [facility] TRANSFUSION SERVICE 2020-06-19 18:00:37 Shanon Hawthorne [facility] REPORT - SCAN [facility] POCT-GLUCOSE METER 2020-06-19 13:05:00 Herve Zee [facility] TREADMILL 2020-06-19 09:45:13 Unknown, Hl7 [facility] TOLERANCE(NON-NUCLEAR Medical Ce nter TREADMILL) ECG 12-LEAD 2020-06-19 09:41:18 Unknown, 7 [facility] ECG 12-LEAD 2020-06-19 09:24:29 Unknown, 7 [facility] POCT-GLUCOSE METER 2020-06-19 05:47:00 [facility]OV[facility] ([facility] & 2020-06-19 05:13:00 Alyce Donnelly [facility] - REF LABS) [facility] CALCIUM, IONIZED 2020-06-19 03:54:00 Herve Zee [facility] CBC W/PLT COUNT & AUTO 2020-06-19 03:54:00 Herve Zee CH, I [facility] COMPREHENSIVE METABOLIC 2020-06-19 03:53:00 Herve Zee [facility] PHOSPHORUS 2020-06-19 03:53:00 Herve Zee [facility] MAGNESIUM 2020-06-19 03:53:00 [facility] AB[facility]H, MANUAL 2020-06-18 22:08:00 Yas Poole [facility] POCT-GLUCOSE METER 2020-06-18 21:34:00 [facility] TYPE AND SCREEN, 2020-06-18 17:02:[address] [facility] es - AUTOMATED [facility] POCT-GLUCOSE METER 2020-06-18 15:58:00 [facility] POCT-GLUCOSE METER 2020-06-18 11:07:00 [facility] TROPONIN I 2020-06-18 09:31:00 [facility] POCT-GLUCOSE METER 2020-06-18 07:58:00 [facility] TROPONIN I 2020-06-18 05:44:00 [facility]ON[facility]ED 2020-06-18 05:44:00 [facility] PHOSPHORUS 2020-06-18 05:44:00 Saadia [facility] MAGNESIUM 2020-06-18 05:44:00 Saadia [facility] HEMOGLOBIN A1C 2020-06-18 05:44:00 [facility] TSH/FREE T4 IF INDICATED 2020-06-18 05:44:00 Herve Zee [facility] COMPREHENSIVE METABOLIC 2020-06-18 05:44:[address] [facility] B-TYPE NATRIURETIC FACTOR 2020-06-18 05:44:00 Herve Zee [facility] (BNP) [facility] T4, FREE 2020-06-18 05:44:00 Herve Zee [facility] CBC W/PLT COUNT & AUTO 2020-06-18 05:44:00 Herve Zee [facility] 2D ECHO W/ DOPPLER 2020-06-17 22:02:40 Herve Zee [facility] (CW/PW/COLOR) [facility] POCT-GLUCOSE METER 2020-06-17 21:40:00 Herve Zee [facility] COMPREHENSIVE METABOLIC 2020-06-17 21:07:[address] [facility] CBC W/PLT COUNT & AUTO 2020-06-17 21:07:00 Herve Zee [facility] ECG 12-LEAD 2020-06-17 20:01:42 Unknown, Hl7 Doctor [facility] Plan of Care Planned Activity Planned Date Details Comments Source Future Scheduled 2020-12-17 Hemoglobin A1c [facility] kes - Test 00:00:00 [facility] (procedure) [code = 69718647] Future Scheduled 2020-05-16 INFLUENZA VACCINE (#1) [facility] 00:[facility]:00 [code = INFLUENZA Medical Ce nter VACCINE (#1)] Future Scheduled 2020-04-15 INFLUENZA VACCINE [place] [facility] 00:00:00 [code = INFLUENZA VACCINE] Future Scheduled 2019-09-[address] [facility] - Test 00:00:00 (12+) [code = Medical Center DEPRESSION SCREENING (12+)] Future Scheduled 2006 BREAST CANCER [facility] Test 00:00:00 SCREENING [code = BREAST CANCER SCREENING] Future Scheduled 2006 COLONOSCOPY SCREENING [place] [facility] 00:00:00 [code = COLONOSCOPY SCREENING] Future Scheduled 2006 SHINGLES VACCINES (#1) [facility] 00:00:00 [code = SHINGLES VACCINES (#1)] Future Scheduled [address] [facility] Test 00:[facility]00 (procedure) [code = Medical Center 46567101] Future Scheduled 1977 Screening for [facility] Test 00:00:00 malignant neoplasm of cervix (procedure) [code = 563923949] Future Scheduled [address] [facility] - Test 00:00:00 malignant neoplasm of [facility] cervix (procedure) [code = 777295673] Future Scheduled 1972 COVID-19 VACCINE (#1) [facility] 00:00:00 [code = COVID-19 VACCINE (#1)] Future Scheduled 1966 DIABETES: RETINAL EYE [facility] 00:00:00 EXAM [code = DIABETES: RETINAL EYE EXAM] Future Scheduled 1966 DIABETIC FOOT EXAM [place] [facility] 00:00:00 [code = DIABETIC FOOT EXAM] Future Scheduled 1966 URINE MICROALBUMIN [place] [facility] 00:00:00 [code = URINE MICROALBUMIN] Future Scheduled 1966 DIABETIC EYE EXAM [facility] - Test 00:00:00 [code = DIABETIC EYE Medical Center EXAM] Future Scheduled [address] [facility] - Test 00:00:00 examination Medical Center (regime/therapy) [code = 526845302] Future Scheduled 1966 Urine screening for [facility] - Test 00:00:00 protein (procedure) Medical Center [code = 502147137] Future Scheduled [address] [facility] - Test 00:00:00 0-64 YRS (1 of 1 - Medical C enter PPSV23) [code = PNEUMOCOCCAL VACCINE 0-64 YRS (1 of 1 - PPSV23)] Future Scheduled [address] [facility] - Test 00:00:00 malignant neoplasm of [facility] breast (procedure) [code = 426498297] Future Scheduled [address] [facility] - Test 00:00:00 malignant neoplasm of [facility] Center colon (procedure) [code = 552540408] Encounters Start End Encounter Admission Attending Care Care Encounter Source Date/Time Date/Time Type Type Clinicians Facility Department ID 2020-09-21 2020-09-21 Telephone SOWMYA Fong [id number] 00:00:00 00:00:00 [facility] [id number] [place] 4.2.7.2.686 Professio [phone] nal 044 [address] One 2020-09-13 2020-09-13 Patient SOWMYA Powers [id number] 00:00:00 00:00:00 Outreach Sherley [facility] 350.1.13.10 [place] 4.2.7.2.686 City [phone] Primary & 365 Specialty Care 2020-09-12 2020-09-12 Patient Ana Laura Ramachandran [id number] 13:22:26 13:52:26 Outreach E Sanchez 350.1.13.10 [place] 4.2.7.2.686 [id number] 403 2020-09-12 2020-09-12 Telemedici SOWMYA Fong [id number] 06:48:41 07:03:41 ne Visit [facility] [id number] [place] 4.2.7.2.686 Professio [phone] nal 044 Office [address] One 2020-09-12 2020-09-12 Telephone SOWMYA Fong [id number] 00:00:00 00:00:00 [facility] [id number] [place] 4.2.7.2.686 Professio [phone] nal 044 Office [address] One 2020-09-11 2020-09-11 Patient Ana Laura Ramachandran [id number] 00:00:00 00:00:00 Outreach E Sanchez [id number] [place] 4.2.7.2.686 [id number] [id number] 2020-06-12 2020-06-12 Prudence [facility] [place] - [id number] V illage 00:00:00 00:00:00 Elis [facility] Gallo ortizy o, 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 2020-05-24 2020-05-24 [facility] [place] - [id number] V illage 00:00:00 00:00:00 Elis [facility] Gallo ortizy o, PROVISIONING ANALYST: Medical - Practi c [address] CUBA_HOU_V@H_ e [facility], [place] [address], [place] [address] , Ph. 2020-03-08 2020-03-08 Prudence [facility] [place] - [id number] V illage 00:00:00 00:00:00 [facility] Gallo ortizy o, PROVISIONING ANALYST: Medical - Practi c [address] CUBA_HOU_V@H_ e [facility], [place] [address], [place] [phone] , Ph. Results Test Description Test Time Test Comments Results Result Comments Source POC-Glucose meter 2020-06-26 16:29:00 Test Item Value Reference Range Interpretation Comme nts POC-Glucose Meter (test code = 119 mg/dL 70-110 H : TESTED AT [facility] [address], [address]: Bow Making Machine Operator/Techni alton ID = [id number] for Yamila Loyola Lab Interpretation (test code = Abnormal 25299-4) [facility] [id number] 16:29:00 Test Item Value Reference Range Interpretation Comments POC-GLUCOSE METER 119 mg/dL 70-110 H : TESTED A T [facility] 6720 (BEAKER) (test code = [facility], 1538) [address]: Bow Making Machine Operator/Techni alton ID = [id number] for Marleen Smith POCT-GLUCOSE [id number] 12:48:00 Test Item Value Reference Range Interpretation Comments POC-GLUCOSE METER 188 mg/dL 70-110 H : [facility]) (test code = [place], 1538) [address]: Bow Making Machine Operator/Techni alton ID = [id number] for Marleen Smith POCT-GLUCOSE [id number] 08:45:00 Test Item Value Reference Range Interpretation Comments POC-GLUCOSE METER 154 mg/dL 70-110 H : TESTED A T [facility] 6720 (BEAKER) (test code = [place], 1538) [address]: Bow Making Machine Operator/Techni alton ID = [id number] for Marleen Smith Basic Metabolic [id number] 05:37:00 Test Item Value Reference Range Interpretation Comments Sodium (test code = 140 meq/L 700-427 3314-2) Potassium (test code = 4.3 meq/L 3.5-5.1 2823-3) Chloride (test code = 101 meq/L 98-107 2075-0) CO2 (test code = 33 meq/L 22-29 H 8-9) BUN (test code = 16 mg/dL 7-21 3094-0) Creatinine (test code 0.73 mg/dL 0.57-1.25 = 2160-0) Glucose (test code = 113 mg/dL 70-105 H 2345-7) Calcium (test code = 8.4 mg/dL 8.4-10.2 23129-7) EGFR (test code = 81 mL/min/1.73 [place] [address]-9) NOT ACCURATE CREATININE CLEARANCE IN PREDICTING GLOMERULAR FILTRATION RATE . ESTIMATED GFR I S NOT APPLICABLE FOR DIALYSIS PATIENTS. TEX (test code = TEX) Bow Making Machine Operator ID - [id number] M Lab Interpretation Abnormal (test code = 30812-7) [facility] METABOLIC [id number] 05:37:00 Test Item Value Reference Range Interpretation Comments SODIUM (BEAKER) 140 meq/L 136-145 (test code = 381) POTASSIUM (BEAKER) 4.3 meq/L 3.5-5.1 (test code = 379) CHLORIDE (BEAKER) 101 meq/L 98-107 (test code = 382) CO2 (BEAKER) (test 33 meq/L 22-29 H code = 355) BLOOD UREA NITROGEN 16 mg/dL 7-21 (BEAKER) (test code = 354) CREATININE (BEAKER) 0.73 mg/dL 0.57-1.25 (test code = 358) GLUCOSE RANDOM 113 mg/dL 70-105 H (BEAKER) (test code = 652) CALCIUM (BEAKER) 8.4 mg/dL 8.4-10.2 (test code = 697) EGFR (BEAKER) (test 81 mL/min/1.73 ESTIMA MARION GFR IS code = 1092) sq m NOT ACCURATE CREATININE CLEARANCE IN PREDICTING GLOMERULAR FILTRATION RATE . ESTIMATED GFR I S NOT APPLICABLE FOR DIALYSIS PATIEN TS. Bow Making Machine Operator ID - KASIA MCBC with platelet count + automated [id number] 05:22:00 Test Item Value Reference Range Interpretation Comments WBC (test code = 6690-2) 9.8 3.5- 10.5 K/L RBC (test code = 789-8) 2.66 3.93- 5.22 M/L L MCHC (test code = 786-4) 29.9 32.2- 35.5 GM/DL L Hematocrit (test code = 4544-3) 27.8 % 34.1-44.9 L MCV (test code = 787-2) 104.5 fL 79.4-94.8 H MCH (test code = 785-6) 31.2 pg 25.6-32.2 RDW (test code = 788-0) 16.6 % 11.7-14.4 H Platelets (test code = 777-3) 197 150- 450 K/CU MM MPV (test code = 63437-3) 9.4 fL 9.4-12.3 nRBC (test code = 413) 1 0- 0 /100 WBC H % Neutros (test code = 429) 71 % % Lymphs (test code = 430) 13 % % Monos (test code = 431) 7 % % Eos (test code = 432) 5 % % Baso (test code = 437) 1 % # Neutros (test code = 670) 6.97 1.56- 6.13 K/L H # Lymphs (test code = 414) 1.25 1.18- 3.74 K/L # Monos (test code = 415) 0.71 0.24- 0.36 K/L H # Eos (test code = 416) 0.47 0.04- 0.36 K/L H # Baso (test code = 417) 0.05 0.01- 0.08 K/L Immature Granulocytes-Relative 4 % 0-1 H (test code = 2801) Lab Interpretation (test code = Abnormal 31133-2) [facility] W/PLT COUNT & AUTO [id number] 05:22:00 Test Item Value Reference Range Interpretation Comments WHITE BLOOD CELL COUNT (BEAKER) 9.8 K/ L 3.5-10.5 (test code = 775) RED BLOOD CELL COUNT (BEAKER) 2.66 M/ L 3.93-5.22 L (test code = 761) HEMOGLOBIN (BEAKER) (test code = 8.3 GM/DL 11.2-15.7 L 410) HEMATOCRIT (BEAKER) (test code = 27.8 % 34.1-44.9 L 411) MEAN CORPUSCULAR VOLUME (BEAKER) 104.5 fL 79.4-94.8 H (test code = 753) MEAN CORPUSCULAR HEMOGLOBIN 31.2 pg 25.6-32.2 (BEAKER) (test code = 751) MEAN CORPUSCULAR HEMOGLOBIN CONC 29.9 GM/DL 32.2-35.5 L (BEAKER) (test code = 752) RED CELL DISTRIBUTION WIDTH 16.6 % 11.7-14.4 H (BEAKER) (test code = 412) PLATELET COUNT (BEAKER) (test 197 K/CU MM 150-450 code = 756) MEAN PLATELET VOLUME (BEAKER) 9.4 fL 9.4-12.3 (test code = 754) NUCLEATED RED BLOOD CELLS 1 /100 WBC 0-0 H (BEAKER) (test code = 413) NEUTROPHILS RELATIVE PERCENT 71 % (BEAKER) (test code = 429) LYMPHOCYTES RELATIVE PERCENT 13 % (BEAKER) (test code = 430) MONOCYTES RELATIVE PERCENT 7 % (BEAKER) (test code = 431) EOSINOPHILS RELATIVE PERCENT 5 % (BEAKER) (test code = 432) BASOPHILS RELATIVE PERCENT 1 % (BEAKER) (test code = 437) NEUTROPHILS ABSOLUTE COUNT 6.97 K/ L 1.56-6.13 H (BEAKER) (test code = 670) LYMPHOCYTES ABSOLUTE COUNT 1.25 K/ L 1.18-3.74 (BEAKER) (test code = 414) MONOCYTES ABSOLUTE COUNT (BEAKER) 0.71 K/ L 0.24-0.36 H (test code = 415) EOSINOPHILS ABSOLUTE COUNT 0.47 K/ L 0.04-0.36 H (BEAKER) (test code = 416) BASOPHILS ABSOLUTE COUNT (BEAKER) 0.05 K/ L 0.01-0.08 (test code = 417) IMMATURE GRANULOCYTES-RELATIVE 4 % 0-1 H PERCENT (BEAKER) (test code = 2801) POCT-GLUCOSE [id number] 20:57:00 Test Item Value Reference Range Interpretation Comments POC-GLUCOSE METER 136 mg/dL 70-110 H : TESTED A T [facility] 6720 (BEAKER) (test code = [facility], [facility]) [address]: Bow Making Machine Operator/Techni alton ID = [id number] for AN NOR TIFFANIE POCT-GLUCOSE [id number] 16:49:00 Test Item Value Reference Range Interpretation Comments POC-GLUCOSE METER 104 mg/dL 70-110 : TESTED A T [facility] 6720 (BEAKER) (test code = [facility], [facility]8) [address]: Bow Making Machine Operator/Techni alton ID = [id number] for RA MOS, ALEKSEY POCT-GLUCOSE [id number] 12:14:00 Test Item Value Reference Range Interpretation Comments POC-GLUCOSE METER 142 mg/dL 70-110 H : TESTED A T [facility] 6720 (BEAKER) (test code = [facility], [facility]) [address]: Bow Making Machine Operator/Techni alton ID = [id number] for RA MOS, ALEKSEY POCT-GLUCOSE [id number] 08:04:00 Test Item Value Reference Range Interpretation Comments POC-GLUCOSE METER 152 mg/dL 70-110 H : TESTED A T [facility] 6720 (BEAKER) (test code = [facility], 1538) [address]: Bow Making Machine Operator/Techni alton ID = [id number] for RA MOS, ALEKSEY POCT-GLUCOSE [id number] 06:06:00 Test Item Value Reference Range Interpretation Comments POC-GLUCOSE METER 115 mg/dL 70-110 H : TESTED A T [facility] 6720 (BEAKER) (test code = [facility], 1538) [address]: Bow Making Machine Operator/Techni alton ID = [id number] for SA NCHEZRICKEY CBC W/PLT COUNT & AUTO [id number] 04:19:00 Test Item Value Reference Range Interpretation Comments WHITE BLOOD CELL COUNT (BEAKER) 10.7 K/ L 3.5-10.5 H (test code = 775) RED BLOOD CELL COUNT (BEAKER) 2.57 M/ L 3.93-5.22 L (test code = 761) HEMOGLOBIN (BEAKER) (test code = 7.8 GM/DL 11.2-15.7 L 410) HEMATOCRIT (BEAKER) (test code = 27.0 % 34.1-44.9 L 411) MEAN CORPUSCULAR VOLUME (BEAKER) 105.1 fL 79.4-94.8 H (test code = 753) MEAN CORPUSCULAR HEMOGLOBIN 30.4 pg 25.6-32.2 (BEAKER) (test code = 751) MEAN CORPUSCULAR HEMOGLOBIN CONC 28.9 GM/DL 32.2-35.5 L (BEAKER) (test code = 752) RED CELL DISTRIBUTION WIDTH 16.4 % 11.7-14.4 H (BEAKER) (test code = 412) PLATELET COUNT (BEAKER) (test 181 K/CU MM 150-450 code = 756) MEAN PLATELET VOLUME (BEAKER) 9.5 fL 9.4-12.3 (test code = 754) NUCLEATED RED BLOOD CELLS 1 /100 WBC 0-0 H (BEAKER) (test code = 413) NEUTROPHILS RELATIVE PERCENT 67 % (BEAKER) (test code = 429) LYMPHOCYTES RELATIVE PERCENT 14 % (BEAKER) (test code = 430) MONOCYTES RELATIVE PERCENT 9 % (BEAKER) (test code = 431) EOSINOPHILS RELATIVE PERCENT 6 % (BEAKER) (test code = 432) BASOPHILS RELATIVE PERCENT 1 % (BEAKER) (test code = 437) NEUTROPHILS ABSOLUTE COUNT 7.14 K/ L 1.56-6.13 H (BEAKER) (test code = 670) LYMPHOCYTES ABSOLUTE COUNT 1.48 K/ L 1.18-3.74 (BEAKER) (test code = 414) MONOCYTES ABSOLUTE COUNT (BEAKER) 0.95 K/ L 0.24-0.36 H (test code = 415) EOSINOPHILS ABSOLUTE COUNT 0.68 K/ L 0.04-0.36 H (BEAKER) (test code = 416) BASOPHILS ABSOLUTE COUNT (BEAKER) 0.08 K/ L 0.01-0.08 (test code = 417) IMMATURE GRANULOCYTES-RELATIVE 4 % 0-1 H PERCENT ([facility]) (test code = 2801) POCT-GLUCOSE [id number] 00:40:00 Test Item Value Reference Range Interpretation Comments POC-GLUCOSE METER 120 mg/dL 70-110 H : Notified RN/MD: ([facility]) (test code = TESTED AT [place] [address] 1538) [facility], [address]: Bow Making Machine Operator/Techni alton ID = [id number] for SA NCHEZ, RICKEY POCT-GLUCOSE [id number] 18:10:00 Test Item Value Reference Range Interpretation Comments POC-GLUCOSE METER 166 mg/dL 70-110 H : [facility]) (test code = [facility], 153) [address]: Bow Making Machine Operator/Techni alton ID = [id number] for RA MOS, ALEKSEY POCT-GLUCOSE [id number] 12:06:00 Test Item Value Reference Range Interpretation Comments POC-GLUCOSE METER 157 mg/dL 70-110 H : [facility]) (test code = [facility], 1538) [address]: Bow Making Machine Operator/Techni alton ID = [id number] for RA MOS, ALEKSEY POCT-GLUCOSE [id number] 08:51:00 Test Item Value Reference Range Interpretation Comments POC-GLUCOSE METER 168 mg/dL 70-110 H : [facility]) (test code = [facility], 153) [address]: Bow Making Machine Operator/Techni alton ID = [id number] for RA MOS, ALEKSEY CBC W/PLT COUNT & AUTO [id number] 05:10:00 Test Item Value Reference Range Interpretation Comments WHITE BLOOD CELL COUNT (BEAKER) 10.4 K/ L 3.5-10.5 (test code = 775) RED BLOOD CELL COUNT (BEAKER) 2.60 M/ L 3.93-5.22 L (test code = 761) HEMOGLOBIN (BEAKER) (test code = 8.1 GM/DL 11.2-15.7 L 410) HEMATOCRIT (AKER) (test code = 27.7 % 34.1-44.9 L 411) MEAN CORPUSCULAR VOLUME (BEAKER) 106.5 fL 79.4-94.8 H (test code = 753) MEAN CORPUSCULAR HEMOGLOBIN 31.2 pg 25.6-32.2 (BEAKER) (test code = 751) MEAN CORPUSCULAR HEMOGLOBIN CONC 29.2 GM/DL 32.2-35.5 L (BEAKER) (test code = 752) RED CELL DISTRIBUTION WIDTH 16.5 % 11.7-14.4 H (BEAKER) (test code = 412) PLATELET COUNT (BEAKER) (test 157 K/CU MM 150-450 code = 756) MEAN PLATELET VOLUME (BEAKER) 9.5 fL 9.4-12.3 (test code = 754) NUCLEATED RED BLOOD CELLS 1 /100 WBC 0-0 H (BEAKER) (test code = 413) NEUTROPHILS RELATIVE PERCENT 66 % (BEAKER) (test code = 429) LYMPHOCYTES RELATIVE PERCENT 16 % (BEAKER) (test code = 430) MONOCYTES RELATIVE PERCENT 10 % (BEAKER) (test code = 431) EOSINOPHILS RELATIVE PERCENT 6 % (BEAKER) (test code = 432) BASOPHILS RELATIVE PERCENT 1 % (BEAKER) (test code = 437) NEUTROPHILS ABSOLUTE COUNT 6.87 K/ L 1.56-6.13 H (BEAKER) (test code = 670) LYMPHOCYTES ABSOLUTE COUNT 1.68 K/ L 1.18-3.74 (BEAKER) (test code = 414) MONOCYTES ABSOLUTE COUNT (BEAKER) 0.99 K/ L 0.24-0.36 H (test code = 415) EOSINOPHILS ABSOLUTE COUNT 0.57 K/ L 0.04-0.36 H (BEAKER) (test code = 416) BASOPHILS ABSOLUTE COUNT (BEAKER) 0.07 K/ L 0.01-0.08 (test code = 417) IMMATURE GRANULOCYTES-RELATIVE 3 % 0-1 H PERCENT (BEAKER) (test code = 2801) POCT-GLUCOSE [id number] 01:33:00 Test Item Value Reference Range Interpretation Comments POC-GLUCOSE METER 107 mg/dL 70-110 : TESTED A T [facility] 6720 (BEAKER) (test code = [place], 1538) [address]: Bow Making Machine Operator/Techni alton ID = [id number] for AN NOR, TIFFANIE POCT-GLUCOSE [id number] 11:19:00 Test Item Value Reference Range Interpretation Comments POC-GLUCOSE METER 155 mg/dL 70-110 H : TESTED A T [facility] 6720 (BEAKER) (test code = RONNY Munoz [facility], 1538) [address]: Bow Making Machine Operator/Techni alton ID = [id number] for [place], FLUORO, NON-SPECIFIC, UP TO 1 [id number] 08:27:37Reason for exam:- >Dislocated left shoulder (OR 18)Fluoroscopic unit utilized for a procedure performed in the OR. No interpretation was requested. Refer to the operative report for findings. Refer to PACS for patient radiation dose information.FL fluoro non-specific up to 1 [id number] 08:12:00Interface, External Ris In - 06/23/2020 1:22 PM CDTFluoroscopic unit utilized for a procedure performed in the OR. No interpretation was requested. Refer to the operative report for findings. [place] PACS for patient radiation dose information.[facility] 12 [id number] 06:36:51Interface, External Ris In - 06/23/2020 6:36 AM CDTVentricular Rate 99 BPMAtrial Rate 99 BPMP-R Interval 148 msQRS Duration 86 msQ-T Interval 350 msQTC Calculation(Bazett) 449 msP [place] 39 degreesR [place] -2 degreesT [place] 112 degreesNormal sinus rhythmMinimal voltage criteria for LVH, may be normal variantAbnormal QRS-T angle, consider primary T wave abnormalityAbnormal ECGWhen compared with ECG of 17-JUN-2020 20:01,No significant change was foundConfirmed by MD BINH, SUPA Fields ([id number]) on 06/23/20206:36:50 [facility] [id number] 05:40:00 Test Item Value Reference Range Interpretation Comments POC-GLUCOSE METER 145 mg/dL 70-110 H : TESTED A T [facility] 6720 (BEAKER) (test code = RON[place]oz [place], 1538) [address]: Bow Making Machine Operator/Techni alton ID = [id number] for AN NOR, TIFFANIE POCT-GLUCOSE [id number] 23:05:00 Test Item Value Reference Range Interpretation Comments POC-GLUCOSE METER 128 mg/dL 70-110 H : TESTED A T [facility] 6720 (BEAKER) (test code = RONNY Munoz [facility], 1538) [address]: Bow Making Machine Operator/Techni alton ID = [id number] for AN TIFFANIE FARIA Hemoglobin and [id number] 17:48:00 Test Item Value Reference Range Interpretation Comments Hemoglobin (test code = 7.7 11.2- 15.7 GM/DL L 786-4) Hematocrit (test code = 26.4 % 34.1-44.9 L 4544-3) TEX (test code = TEX) Bow Making Machine Operator ID - [id number] Lab Interpretation (test Abnormal code = 27613-4) [facility] CenterHEMOGLOBIN AND [id number] 17:48:00 Test Item Value Reference Range Interpretation Comments HEMOGLOBIN (BEAKER) (test code = 7.7 GM/DL 11.2-15.7 L 410) HEMATOCRIT (BEAKER) (test code = 26.4 % 34.1-44.9 L 411) Bow Making Machine Operator ID - [id number]-GLUCOSE [id number] 11:44:00 Test Item Value Reference Range Interpretation Comments POC-GLUCOSE METER 116 mg/dL 70-110 H : TESTED A T [facility] 6720 (BEAKER) (test code = [facility] Tammy [facility], 1538) [address]: Bow Making Machine Operator/Techni alton ID = [id number] for Ashwin Platt BASIC METABOLIC [id number] 07:08:00 Test Item Value Reference Range Interpretation Comments SODIUM (BEAKER) 141 meq/L 136-145 (test code = 381) POTASSIUM (BEAKER) 4.2 meq/L 3.5-5.1 (test code = 379) CHLORIDE (BEAKER) 104 meq/L 98-107 (test code = 382) CO2 (BEAKER) (test 29 meq/L 22-29 code = 355) BLOOD UREA NITROGEN 31 mg/dL 7-21 H (BEAKER) (test code = 354) CREATININE (BEAKER) 1.18 mg/dL 0.57-1.25 (test code = 358) GLUCOSE RANDOM 101 mg/dL 70-105 (BEAKER) (test code = 652) CALCIUM (BEAKER) 8.1 mg/dL 8.4-10.2 L (test code = 697) EGFR (BEAKER) (test 46 mL/min/1.73 ESTIMA MARION GFR IS code = 1092) sq m NOT ACCURATE CREATININE CLEARANCE IN PREDICTING GLOMERULAR FILTRATION RATE . ESTIMATED GFR I S NOT APPLICABLE FOR DIALYSIS PATIEN TS. Bow Making Machine Operator ID - KASIA MPOCT-GLUCOSE [id number] 07:02:00 Test Item Value Reference Range Interpretation Comments POC-GLUCOSE METER 112 mg/dL 70-110 H : TESTED A T [facility] 6720 (BEAKER) (test code = RONNY Munoz [facility], 1538) [address]: Bow Making Machine Operator/Techni alton ID = [id number] for ELIAN PLATT CBC W/PLT COUNT & AUTO [id number] 06:24:00 Test Item Value Reference Range Interpretation Comments WHITE BLOOD CELL COUNT 11.7 K/ L 3.5-10.5 H (BEAKER) (test code = 775) RED BLOOD CELL COUNT 2.51 M/ L 3.93-5.22 L (BEAKER) (test code = 761) HEMOGLOBIN (BEAKER) 7.7 GM/DL 11.2-15.7 L Patient had (test code = 410) surgery th e day before [id number] HEMATOCRIT (BEAKER) 26.5 % 34.1-44.9 L (test code = 411) MEAN CORPUSCULAR VOLUME 105.6 fL 79.4-94.8 H (BEAKER) (test code = 753) MEAN CORPUSCULAR 30.7 pg 25.6-32.2 HEMOGLOBIN (BEAKER) (test code = 751) MEAN CORPUSCULAR 29.1 GM/DL 32.2-35.5 L HEMOGLOBIN CONC (BEAKER) (test code = 752) RED CELL DISTRIBUTION 16.8 % 11.7-14.4 H WIDTH (BEAKER) (test code = 412) PLATELET COUNT (BEAKER) 169 K/CU MM 150-450 (test code = 756) MEAN PLATELET VOLUME 9.8 fL 9.4-12.3 (BEAKER) (test code = 754) NUCLEATED RED BLOOD 1 /100 WBC 0-0 H CELLS (BEAKER) (test code = 413) NEUTROPHILS RELATIVE 80 % PERCENT (BEAKER) (test code = 429) LYMPHOCYTES RELATIVE 10 % PERCENT (BEAKER) (test code = 430) MONOCYTES RELATIVE 7 % PERCENT (BEAKER) (test code = 431) EOSINOPHILS RELATIVE 2 % PERCENT (BEAKER) (test code = 432) BASOPHILS RELATIVE 0 % PERCENT (BEAKER) (test code = 437) NEUTROPHILS ABSOLUTE 9.33 K/ L 1.56-6.13 H COUNT (BEAKER) (test code = 670) LYMPHOCYTES ABSOLUTE 1.13 K/ L 1.18-3.74 L COUNT (BEAKER) (test code = 414) MONOCYTES ABSOLUTE 0.83 K/ L 0.24-0.36 H COUNT (BEAKER) (test code = 415) EOSINOPHILS ABSOLUTE 0.21 K/ L 0.04-0.36 COUNT (BEAKER) (test code = 416) BASOPHILS ABSOLUTE 0.03 K/ L 0.01-0.08 COUNT (BEAKER) (test code = 417) IMMATURE 2 % 0-1 H GRANULOCYTES-RELATIVE PERCENT (BEAKER) (test code = 2801) Lactic acid, [id number] 06:09:00 Test Item Value Reference Range Interpretation Comments Lactate, Venous (test code 0.95 mmol/L 0.5-2.2 = 2872) TEX (test code = TEX) [employer] SWEETIE PEDROZA M Lab Interpretation (test Normal code = 94293-2) [facility] [id number] 06:09:00 Test Item Value Reference Range Interpretation Comments LACTATE BLOOD VENOUS (2) (BEAKER) 0.95 mmol/L 0.50-2.20 (test code = 2872) [employer] SWEETIE PEDROZA MPOCT-GLUCOSE [id number] 00:13:00 Test Item Value Reference Range Interpretation Comments POC-GLUCOSE METER 114 mg/dL 70-110 H : TESTED A T [facility] 6720 (BEAKER) (test code = [facility], 1538) [id number]: [employer] Operator/Techni alton ID = [id number] for ELIAN PLATT POCT-GLUCOSE [id number] 15:36:00 Test Item Value Reference Range Interpretation Comments POC-GLUCOSE METER 153 mg/dL 70-110 H : TESTED A T [facility] 6720 (BEAKER) (test code = [facility], 1538) 34892: [employer] Operator/Techni alton ID = [id number] for [facility] CAM[facility]ON LÓPEZ Treadmill tolerance(Non-Nuclear Treadmill)2020-06-21 14:44:14Interface, External Ris In - 06/21/2020 2:44 PM CDTProtocol Name SAMANTA Time In Exercise Phase 00:01:00 Max. Systolic [...] on 06/19/2020 2:52:27 PMConfirmed by Real Magallon (52) on 06/21/2020 2:44:06 [facility], [facility]OW, 3 VIEWS, LEFT 2020-06-21 13:36:00Reason for [...] no acute fracture, or dislocation. There is fdpy-si-kivcbido osteoarthritis, as well as mild enthesopathy at [...] Rubio Verified Date/Time: 06/21/2020 13:36:41 Reading Location: [facility] Radiology Reading Room Electr onically signed by: JENNIFER RUBIO M.D. on 06/21/2020 01:36 PMRAD, SHOULDER, 1 VIEW, [id number] 13:36:00Reason for exam:->left shouler painFINAL REPORT Radiograph [...] no acute fracture, or dislocation. There is vkoi-qk-qtbivhcm osteoarthritis, as well as mild enthesopathy at [...] MDReport Verified Date/Time: 06/21/2020 13:36:41 Reading Location: [facility] Radiology Reading Room RAD, PELVIS, 1 OR 2 [id number] 13:36:00Single viewReason for exam:- >femur fxShould this [...] no acute fracture, or dislocation. There is cuso-xk-snoagacs osteoarthritis, as well as mild enthesopathy at [...] Rubio Verified Date/Time: 06/21/2020 13:36:41 Reading Location: [facility] Radiology Reading Room XR pelvis 1 or 2 [id number] 13:36:00Interface, External Ris In - 06/21/2020 1:38 [...] demonstrates no acute fracture, or dislocation. There nvinsm-yh-vyfbgncf osteoarthritis, as well as mild enthesopathy at [...] Rubio Verified Date/Time: 06/21/2020 13:36:41 Reading Location: [facility] Radiology Reading Room [facility] CenterXR elbow 3 views min [id number] 13:36:00Interface, External Ris In - 06/21/2020 1:38 [...] no acute fracture, or dislocation. There is cwmn-ca-jcsgzwqq osteoarthritis, as well as mild enthesopathy at [...] Rubio Verified Date/Time: 06/21/2020 13:36:41 Reading Location: [facility] Radiology Reading Room [facility] CenterXR shoulder 1 view left 2020-06-21 13:36:00Interface, External [...] demonstrates no acute fracture, or dislocation. There iessox-tn-kxbusdps osteoarthritis, as well as mild enthesopathy at [...] Rubio Verified Date/Time: 06/21/2020 13:36:41 Reading Location: [facility] Radiology Reading Room [facility] CenterPOCT-GLUCOSE [id number] 12:40:00 Test Item Value Reference Range Interpretation Comments POC-GLUCOSE METER 189 mg/dL 70-110 H : TESTED Malaika T [facility] 6720 (BEAKER) (test code = RONNY [place], 1538) 72448: Bow Making Machine Operator/Techni alton ID = [id number] for PRINCESS ED CBC (Hemogram only)2020-06-21 11:17:00 [...] MPV (test code = 9.9 fL 9.4-12.3 51674-3) nRBC (test code = 413) 0 0- 0 /100 WBC Lab Interpretation (test Abnormal code = 09934-6) [facility] ONLY)2020-06-21 11:17:00 Test Item Value Reference [...] CELLS (BEAKER) (test code = 413) POCT-GLUCOSE [id number] 09:57:00 Test Item Value Reference Range Interpretation Comments POC-GLUCOSE METER 172 mg/dL 70-110 H : TESTED A T [facility] 6720 (BEAKER) (test code = RONNY [place], 1538) 64347: Bow Making Machine Operator/Techni alton ID = [id number] for NANCYERJYOTI, JEFE AN FL, FLUORO, NON-SPECIFIC, UP TO 1 [id number] 09:21:38Reason for exam:- >right femur fractureFluoroscopic unit utilized for a procedure performed in the OR. No interpretation was requested. Refer to the operative report for findings. Refer to PACS for patient radiation dose information.Prepare Leuko- Red [id number] 23:54:00 Test Item Value Reference Range Interpretation Comments CROSSMATCH (test code = 2264) COMPATIBLE Unit ABO (test code = B Pos 3614991) UNIT NUMBER (test code = [id number] 934-0) Status (test code = 1642613) TX_TIMEINCHART Blood Bank Product (test code RED BLOOD CELLS = 2263) PRODUCT CODE (test code = N3924W22 933-2) [facility] CenterPOCT-GLUCOSE [id number] 23:46:00 Test Item Value Reference Range Interpretation Comments POC-GLUCOSE METER 136 mg/dL 70-110 H : TESTED A T [facility] 6720 (BEAKER) (test code = RONNY Munoz [facility], 1538) 93614: Bow Making Machine Operator/Techni alton ID = [id number] for HANS JOSE POCT-GLUCOSE [id number] 18:51:00 Test Item Value Reference Range Interpretation Comments POC-GLUCOSE METER 158 mg/dL 70-110 H : TESTED A T [facility] 6720 (OLIVERIO) (test code = RONNY Munoz [facility], 1538) 53793: Bow Making Machine Operator/Techni alton ID = [id number] for [facility]EDA [facility]HL [facility] KHADIJAH, MULTI, PHARM, [id number] 17:07:00Unlisted Reason for Exam - Click Yes and Enter Reason Below->No Eval for CADFINAL REPORT PROCEDURE: MYOCARDIAL PERFUSION PLANAR IMAGING (2-Day Stress/Rest)CPT CODE: 16617 INDICATION: evaluate for presence of CAD, preoperative [...] MDReport Verified Date/Time: 06/20/2020 17:07:36 Reading Location: [address] Reading Room NM Myocard imaging multi pharm [id number] 17:07:00Interface, External Ris In - 06/20/2020 5:09 PM CDTFINAL REPORT PROCEDURE: MY OCARDIAL PERFUSION PLANAR IMAGING (2-Day Stress/Rest)CPT CODE: 03700 INDICATION: evaluate for presence of CAD, preoperative [...] MDReport Verified Date/Time: 06/20/2020 17:07:36 Reading Location: [address] Reading Room [facility] CenterPOCT-GLUCOSE [id number] 12:32:00 Test Item Value Reference Range Interpretation Comments POC-GLUCOSE METER 128 mg/dL 70-110 H : TESTED A T [facility] 6720 (BEAKER) (test code = [facility] [employer] [facility], 1538) 38813: Bow Making Machine Operator/Techni alton ID = [id number] for NEDA STAHL ALFREDO POCT-GLUCOSE [id number] 06:18:00 Test Item Value Reference Range Interpretation Comments POC-GLUCOSE METER 133 mg/dL 70-110 H : TESTED A T [facility] 6720 (BEAKER) (test code = [facility] [employer] [facility], 1538) 10827: Bow Making Machine Operator/Techni alton ID = [id number] for TIFFANIE HARDING Vitamin B12 and [id number] 06:10:00 Test Item Value Reference Range Interpretation Comments Vitamin B12 (test code = 467 pg/mL 343-891 6387-9) Folate (test code = 16.70 ng/mL >=7.00 2284-8) TEX (test code = TEX) Bow Making Machine Operator ID - EDASI Lab Interpretation (test Normal code = 32786-6) [facility] CenterVITAMIN B12 AND [id number] 06:10:00 Test Item Value Reference Range Interpretation Comments VITAMIN B12 (BEAKER) (test code = 467 pg/mL 213-816 774) FOLATE (BEAKER) (test code = 362) 16.70 ng/mL >=7.00 Bow Making Machine Operator ID - EDASIComprehensive metabolic [id number] 06:01:00 Test Item Value Reference Range Interpretation Comments Protein, Total (test 6.9 6.0- 8.3 gm/dL code = 2885-2) Albumin (test code = 3.4 g/dL 3.5-5 L 72010-5) Alkaline Phosphatase 49 U/L 40-150 (test code = 6768-6) Total Bilirubin (test 1.1 mg/dL 0.2-1.2 code = 1974-2) Sodium (test code = 142 meq/L 639-921 7917-2) Potassium (test code = 4.4 meq/L 3.5-5.1 2823-3) Chloride (test code = 101 meq/L 98-107 2075-0) CO2 (test code = 33 meq/L 22-29 H 2028-9) BUN (test code = 28 mg/dL 7-21 H 3094-0) Creatinine (test code 0.81 mg/dL 0.57-1.25 = 2160-0) Glucose (test code = 131 mg/dL 70-105 H 2345-7) Calcium (test code = 9.1 mg/dL 8.4-10.2 81333-1) AST (test code = 15 U/L 5-34 1920-8) ALT (test code = 10 U/L 6-55 1742-6) EGFR (test code = 71 mL/min/1.73 sq m [facility] [address]-1) NOT ACCURATE CREATININE CLEARANCE IN PREDICTING GLOMERULAR FILTRATION RATE . ESTIMATED GFR I S NOT APPLICABLE FOR DIALYSIS PATIENTS. TEX (test code = TEX) Bow Making Machine Operator ID - EDASI Lab Interpretation Abnormal (test code = 03414-7) [facility] CenterMagnesium2020-10-06 06:01:00 Test Item Value Reference Range Interpretation Comments Magnesium (test code = 1.7 mg/dL 1.6-2.6 19859-0) TEX (test code = TEX) Bow Making Machine Operator ID - EDASI Lab Interpretation (test Normal code = 99382-2) [facility] CenterPhosphorus2020-10-06 06:01:00 Test Item Value Reference Range Interpretation Comments Phosphorus (test code = 2.4 mg/dL 2.3-4.7 2777-1) TEX (test code = TEX) Bow Making Machine Operator ID - EDASI Lab Interpretation (test Normal code = 88290-2) [facility] CenterPHOSPHORUS2020-10-06 06:01:00 Test Item Value Reference Range Interpretation Comments PHOSPHORUS (BEAKER) (test code = 2.4 mg/dL 2.3-4.7 604) Bow Making Machine Operator ID - [id number] 06:01:00 Test Item Value Reference Range Interpretation Comments MAGNESIUM (BEAKER) (test code = 1.7 mg/dL 1.6-2.6 627) Bow Making Machine Operator ID - EDASICOMPREHENSIVE METABOLIC [id number] 06:01:00 Test Item Value Reference Range Interpretation [...] S NOT APPLICABLE FOR DIALYSIS PATIEN TS. Bow Making Machine Operator ID - EDASICalcium, [id number] 05:15:00 Test Item Value Reference Range Interpretation Comments Calcium, Ion (test code = 1993-) 1.15 mmol/L 1.12-1.27 pH, Blood (test code = 67747-4) 7.42 [facility], [id number] 05:15:00 Test Item Value Reference Range Interpretation Comments CALCIUM IONIZED (BEAKER) (test 1.15 mmol/L 1.12-1.27 code = 698) PH, BLOOD (BEAKER) (test code = 7.42 1810) CBC W/PLT COUNT & AUTO [id number] 05:10:00 Test Item Value Reference Range Interpretation [...] PERCENT (BEAKER) (test code = 2801) POCT-GLUCOSE [id number] 21:18:00 Test Item Value Reference Range Interpretation Comments POC-GLUCOSE METER 105 mg/dL 70-110 : TESTED A T [facility] 6720 (BEAKER) (test code = [facility], 1538) 39685: Bow Making Machine Operator/Techni alton ID = [id number] for AN TIFFANIE FARIA POCT-GLUCOSE [id number] 13:16:00 Test Item Value Reference Range Interpretation Comments POC-GLUCOSE METER 131 mg/dL 70-110 H : TESTED A T [facility] 6720 (BEAKER) (test code = [facility], 1538) 62328: Bow Making Machine Operator/Techni alton ID = [id number] for Wi Ashwin matthews 2D Echo W/Doppler(CW/PW/Color)2020-06-19 12:42:42Ejection FractionSLEH ECHO HEARTLAB MKCKESSON CPACSInterface, External Ris In - 06/19/2020 12:42 PM C DTTransthoracic Echocardiography Report (TTE) Demographics Patient Name LETICIA WADE Date ofStudy 06/17/2020 FIORELLA Gender Female Visit Number [id number] Race Unknown Room Number 1523 Number Date of 1955 Referring Physician HERVE ZEE Age 64 year(s) 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 Fact Sheet for Healthcare Providers:https://www.[employer]/sites/default/f roselia/product/documents/F act_Sheet_HC_Providers_L mlw_HDZY-PrW-7.pdf Fact Sheet for Healthcare Patients:https://www.[employer]/sites/default/fi les/product/documents/Fa ct_Sheet_Patients_Lyra_S ARS-CoV-2.pdf Performing Laboratory:[facility], [place] [id number] [place], [place] [address]ARS-COV2/RT-PCR ([facility])2020-06-19 11:25:00 Test Item Value Reference Range Interpretation Comments SARS-COV2/RT-PCR (test Negative Not Detected, Negative, code = 0423458) See external report for linked test SARS-COV-2 PERFORMING LAB [facility] NICK (test code = 0938659) Negative result for this test determines that [...] 564(g) of the Act.Fact Sheet for Healthcare Providers:https://www.[employer].Where Was it Filmed/sites/default/files/product/documents/Fact_Shee q_MA_Tqhnernvt_Ftfv_SSER-UqZ-7.pdfFact Sheet for Healthcare Patients:https://www.[employer].Where Was it Filmed/sites/default/files/product/ documents/Lnux_Gclgm_Ezawzhyf_Amlh_SZJQ-KeD-2.pdfPerforming Laboratory:[facility], [place] [address]UYVX-JLDVINU METER 2020-06-19 05:59:00 Test Item Value Reference Range Interpretation Comments POC-GLUCOSE METER 122 mg/dL 70-110 H : TESTED A T [facility] 6720 (OLIVERIO) (test code = RONNY Tammy [facility], 1538) 16131: Bow Making Machine Operator/Techni alton ID = [id number] for ELIAN PLATT [id number] 04:43:00 Test Item Value Reference Range Interpretation Comments PHOSPHORUS (BEAKER) (test code = 2.9 mg/dL 2.3-4.7 604) Bow Making Machine Operator ID - [id number] 04:43:00 Test Item Value Reference Range Interpretation Comments MAGNESIUM (BEAKER) (test code = 1.9 mg/dL 1.6-2.6 627) Bow Making Machine Operator ID - EDASICOMPREHENSIVE METABOLIC [id number] 04:43:00 Test Item Value Reference Range Interpretation [...] S NOT APPLICABLE FOR DIALYSIS PATIEN TS. Bow Making Machine Operator ID - EDASICBC W/PLT COUNT & AUTO [id number] 04:20:00 Test Item Value Reference Range Interpretation [...] PERCENT (BEAKER) (test code = 2801) CALCIUM, [id number] 04:11:00 Test Item Value Reference Range Interpretation Comments CALCIUM IONIZED (BEAKER) (test 1.16 mmol/L 1.12-1.27 code = 698) PH, BLOOD (BEAKER) (test code = 7.37 1810) hitesh [id number] 01:54:00 Test Item Value Reference Range Interpretation Comments Rh Factor (test code = 2589) POS ABO Grouping (test code = 2588) B [facility] CenterPOCT-GLUCOSE [id number] 21:49:00 Test Item Value Reference Range Interpretation Comments POC-GLUCOSE METER 113 mg/dL 70-110 H : TESTED A T [facility] 6720 (BEAKER) (test code = [facility], 153) 73665: Bow Making Machine Operator/Techni alton ID = [id number] for ELIAN PLATT Type and screen, [id number] 17:47:00 Test Item Value Reference Range Interpretation Comments ABO/RH AUTOMATED (BEAKER) (test B POSITIVE code = 2260) Ab Scrn (test code = 890-4) NEGATIVE [facility] CenterPOCT-GLUCOSE [id number] 16:10:00 Test Item Value Reference Range Interpretation Comments POC-GLUCOSE METER 96 mg/dL 70-110 : TESTED A T [facility] 6720 (BEAKER) (test code = [facility], 153) 70773: Bow Making Machine Operator/Techni alton ID = [id number] for CAMERON PIERCE Hemoglobin [id number] 11:26:00 Test Item Value Reference Range Interpretation Comments Hemoglobin A1C (test code = 4548-4) 5.4 % 4.3-6.1 Lab Interpretation (test code = Normal 92123-5) [facility] CenterHEMOGLOBIN [id number] 11:26:00 Test Item Value Reference Range Interpretation Comments HEMOGLOBIN A1C (BEAKER) (test code = 5.4 % 4.3-6.1 368) POCT-GLUCOSE [id number] 11:19:00 Test Item Value Reference Range Interpretation Comments POC-GLUCOSE METER 135 mg/dL 70-110 H : TESTED A T [facility] 6720 (BEAKER) (test code = [facility], 1538) 33383: Bow Making Machine Operator/Techni alton ID = [id number] for CAMERON HILL Troponin [id number] 10:05:00 Test Item Value Reference Range Interpretation Comments Troponin I (test code = 0.02 ng/mL 0-0.03 58684-4) TEX (test code = TEX) Troponin I [...] disease, and persistent tachyarrhythmia.Opera tor ID - QR ArtistIANG Lab Interpretation (test Normal code = 80640-7) [facility] CenterTROPONIN [id number] 10:05:00 Test Item Value Reference Range Interpretation [...] failure, acidosis, acute neurological disease, and persistent tachyarrhythmia.Bow Making Machine Operator ID - ROSIANGPOCT-GLUCOSE METER 2020-06-18 08:09:00 Test Item Value Reference Range Interpretation Comments POC-GLUCOSE METER 120 mg/dL 70-110 H : TESTED A T [facility] 6720 (BEAKER) (test code = BERTNE R [facility], 1538) 78010: Bow Making Machine Operator/Techni alton ID = [id number] for CAMERON HILL T4, [id number] 08:07:00 Test Item Value Reference Range Interpretation Comments Free T4 (test code = <0.40 0.7-1.48 L 3024-7) TEX (test code = TEX) Bow Making Machine Operator ID - ROSIANG Lab Interpretation (test Abnormal code = 80955-4) [facility] CenterT4, [id number] 08:07:00 Test Item Value Reference Range Interpretation Comments FREE T4 (BEAKER) (test code = 655) < ng/dL 0.70-1.48 L Bow Making Machine Operator ID - ROSIANGTSH/Free T4 If [id number] 07:15:00 Test Item Value Reference Range Interpretation Comments TSH (test code = 76.986 0.350- 4.940 uIU/mL H 85220-5) TEX (test code = TEX) Bow Making Machine Operator ID - EDASI Lab Interpretation (test Abnormal code = 35270-6) [facility] CenterTS/FREE T4 IF [id number] 07:15:00 Test Item Value Reference Range Interpretation Comments THYROID STIMULATING HORMONE 76.986 uIU/mL 0.350-4.940 H (BEAKER) (test code = 772) Bow Making Machine Operator ID - [id number] 07:00:00 Test Item Value Reference Range Interpretation Comments PHOSPHORUS (BEAKER) (test code = 3.5 mg/dL 2.3-4.7 604) Bow Making Machine Operator ID - [id number] 07:00:00 Test Item Value Reference Range Interpretation Comments MAGNESIUM (BEAKER) (test code = 1.9 mg/dL 1.6-2.6 627) Bow Making Machine Operator ID - EDASICOMPREHENSIVE METABOLIC [id number] 07:00:00 Test Item Value Reference Range Interpretation [...] S NOT APPLICABLE FOR DIALYSIS PATIEN TS. Bow Making Machine Operator ID - EDASITROPONIN [id number] 06:52:00 Test Item Value Reference Range Interpretation [...] failure, acidosis, acute neurological disease, and persistent tachyarrhythmia.Bow Making Machine Operator ID - EDASIB-type Natriuretic Factor (BNP)2020-06-18 06:50:00 Test Item Value Reference Range Interpretation Comments BNP (test code = 89723-4) 35 pg/mL 0-100 TEX (test code = TEX) Bow Making Machine Operator ID - EDASI Lab Interpretation (test Normal code = 41365-3) [facility] CenterB-TYPE NATRIURETIC FACTOR (BNP)2020-06-18 06:50:00 Test Item Value Reference Range Interpretation Comments B-TYPE NATRIURETIC PEPTIDE (BEAKER) 35 pg/mL 0-100 (test code = 700) Bow Making Machine Operator ID - EDASICBC W/PLT COUNT & AUTO [id number] 06:33:00 Test Item Value Reference Range Interpretation [...] PERCENT (BEAKER) (test code = 2801) CALCIUM, [id number] 05:58:00 Test Item Value Reference Range Interpretation Comments CALCIUM IONIZED (BEAKER) (test 1.14 mmol/L 1.12-1.27 code = 698) PH, BLOOD (BEAKER) (test code = 7.36 1810) POCT-GLUCOSE [id number] 21:55:00 Test Item Value Reference Range Interpretation Comments POC-GLUCOSE METER 187 mg/dL 70-110 H : TESTED A T [facility] 6720 (BEAKER) (test code = RONNY [place], 1538) 88557: Bow Making Machine Operator/Techni alton ID = [id number] for ELIAN PLATT COMPREHENSIVE METABOLIC [id number] 21:39:00 Test Item Value Reference Range Interpretation [...] S NOT APPLICABLE FOR DIALYSIS PATIEN TS. Bow Making Machine Operator ID - DBCBC W/PLT COUNT & AUTO [id number] 21:23:00 Test Item Value Reference Range Interpretation [...] 0-1 PERCENT (BEAKER) (test code = 2801) STOOL CULTURE + SHIGA [id number] 10:48:00 Test Item Value Reference Range Interpretation Comments CULTURE (BEAKER) No Salmonella, Shigella (test code = 1095) or Campylobacter isolated Unable to test for Shiga Toxin 1 due to insufficient growth of specimen.Unable to test for Shiga Toxin 2 due to insufficient growth of specimen.STOOL PATH [id number] 13:49:00 Test Item Value Reference Range Interpretation Comments PATHOGEN EXAM CHARGED ([facility]) (test Done code = 2381) POCT-GLUCOSE [id number] 11:36:00 Test Item Value Reference Range Interpretation Comments POC-GLUCOSE METER 106 mg/dL 70-110 TESTED AT [facility] 6720 ([facility]) (test code = RONNY GILL [place] 1538) [address] POCT-GLUCOSE [id number] 08:21:00 Test Item Value Reference Range Interpretation Comments POC-GLUCOSE METER 110 mg/dL 70-110 TESTED AT [facility] 6720 ([facility]) (test code = RONNY Munoz [facility] 1538) 299[address] [id number] 05:17:00 Test Item Value Reference Range Interpretation Comments PHOSPHORUS (BEAKER) (test code = 3.6 mg/dL 2.3-4.7 604) [id number] 05:17:00 Test Item Value Reference Range Interpretation Comments MAGNESIUM (BEAKER) (test code = 1.6 mg/dL 1.6-2.6 627) BASIC METABOLIC [id number] 05:17:00 Test Item Value Reference Range Interpretation [...] PATIEN TS. CBC W/PLT COUNT & AUTO [id number] 05:09:00 Test Item Value Reference Range Interpretation [...] L 0.00-0.20 (test code = 417) 0.00PROTHROMBIN TIME/[id number] 04:57:00 Test Item Value Reference Range Interpretation [...] POC-GLUCOSE METER 100 mg/dL 70-110 TESTED AT [facility] 6720 (BEAKER) (test code = RONNY Munoz [facility] 1538) 96[address] BASIC METABOLIC [id number] 18:30:00 Test Item Value Reference Range Interpretation [...] 358) GLUCOSE RANDOM 157 mg/dL 70-105 H ([facility]) (test code = 652) CALCIUM (AKER) 9.3 mg/dL 8.4-10.2 (test code = 697) EGFR ([facility]) (test 58 mL/min/1.73 ESTIMA MARION GFR IS code = 1092) sq m NOT ACCURATE CREATININE CLEARANCE IN PREDICTING GLOMERULAR FILTRATION RATE . ESTIMATED GFR I S NOT APPLICABLE FOR DIALYSIS PATIEN TS. POCT-GLUCOSE [id number] 15:40:00 Test Item Value Reference Range Interpretation Comments POC-GLUCOSE METER 95 mg/dL 70-110 TESTED AT [place] [address] ([facility]) (test code = [facility] [address] 1538) POCT-GLUCOSE [id number] 11:47:00 Test Item Value Reference Range Interpretation Comments POC-GLUCOSE METER 101 mg/dL 70-110 TESTED AT [place] [address] ([facility]) (test code = [facility] 1538) [address] POCT-GLUCOSE [id number] 07:32:00 Test Item Value Reference Range Interpretation Comments POC-GLUCOSE METER 88 mg/dL 70-110 TESTED AT [place] [address] ([facility]) (test code = [facility] [address] 1538) CBC W/PLT COUNT & AUTO [id number] 07:32:00 Test Item Value Reference Range Interpretation Comments WHITE BLOOD CELL COUNT ([facility]) 9.1 K/ L 4.0-10.0 (test code = 775) RED BLOOD CELL COUNT ([facility]) 4.02 M/ L 4.00-5.00 (test code = 761) HEMOGLOBIN (BEAKER) (test code = 12.2 GM/DL 12.0-15.0 410) HEMATOCRIT ([facility]) (test code = 36.3 % 36.0-45.0 411) MEAN CORPUSCULAR VOLUME ([facility]) 90.3 fL 82.0-99.0 (test code = 753) MEAN CORPUSCULAR HEMOGLOBIN 30.3 pg 27.0-33.0 (AKER) (test code = 751) MEAN CORPUSCULAR HEMOGLOBIN [...] K/ L 0.00-0.20 (test code = 417) 0.00BASI METABOLIC [id number] 06:23:00 Test Item Value Reference Range Interpretation [...] S NOT APPLICABLE FOR DIALYSIS PATIEN TS. [id number] 06:23:00 Test Item Value Reference Range Interpretation Comments MAGNESIUM (BEAKER) (test code = 1.6 mg/dL 1.6-2.6 627) [id number] 06:23:00 Test Item Value Reference Range Interpretation Comments PHOSPHORUS (BEAKER) (test code = 3.6 mg/dL 2.3-4.7 604) PROTHROMBIN [id number] 06:15:00 Test Item Value Reference Range Interpretation [...] POC-GLUCOSE METER 108 mg/dL 70-110 TESTED AT [facility] 6720 (BEAKER) (test code = RONNY [place] 1538) [address] BASIC METABOLIC [id number] 18:12:00 Test Item Value Reference Range Interpretation [...] mg/dL 8.4-10.2 (test code = 697) EGFR ([facility]) (test 58 mL/min/1.73 ESTIMA MARION GFR IS code = 1092) sq m NOT ACCURATE CREATININE CLEARANCE IN PREDICTING GLOMERULAR FILTRATION RATE . ESTIMATED GFR I S NOT APPLICABLE FOR DIALYSIS PATIEN TS. POCT-GLUCOSE [id number] 17:53:00 Test Item Value Reference Range Interpretation Comments POC-GLUCOSE METER 165 mg/dL 70-110 H TESTED AT [place] [address] ([facility]) (test code = [facility] 1538) [address] PROTHROMBIN [id number] 13:53:00 Test Item Value Reference Range Interpretation Comments PROTIME ([facility]) (test code = 14.7 seconds 11.7-14.7 759) INR ([facility]) (test code = 370) 1.2 <=5.9 RECOMMENDED COUMADIN/WARFARIN INR THERAPY RANGESSTANDARD DOSE: 2.0 - 3.0 Includes: PROPHYLAXIS forvenous thrombosis, systemic embolization; TREATMENT for venous thrombosis and/or pulmonary embolus.HIGH RISK: Target INR is 2.5-3.5 for patients with mechanical heart valves.POCT-GLUCOSE [id number] 11:49:00 Test Item Value Reference Range Interpretation Comments POC-GLUCOSE METER 120 mg/dL 70-110 H TESTED AT [place] [address] ([facility]) (test code = [facility] 1538) [address] POCT-GLUCOSE [id number] 07:58:00 Test Item Value Reference Range Interpretation Comments POC-GLUCOSE METER 94 mg/dL 70-110 TESTED AT [place] [address] ([facility]) (test code = [facility] [address] 1538) [id number] 07:23:00 Test Item Value Reference Range Interpretation Comments PHOSPHORUS ([facility]) (test code = 3.6 mg/dL 2.3-4.7 604) [id number] 07:23:00 Test Item Value Reference Range Interpretation Comments MAGNESIUM ([facility]) (test code = 1.8 mg/dL 1.6-2.6 627) BASIC METABOLIC [id number] 07:23:00 Test Item Value Reference Range Interpretation Comments SODIUM ([facility]) 136 meq/L 136-145 (test code = 381) [...] PATIEN TS. CBC W/PLT COUNT & AUTO [id number] 07:15:00 Test Item Value Reference Range Interpretation [...] L 0.00-0.20 (test code = 417) 0.00POCT-GLUCOSE [id number] 20:44:00 Test Item Value Reference Range Interpretation Comments POC-GLUCOSE METER 164 mg/dL 70-110 H TESTED AT [facility] 6720 (BEAKER) (test code = [place] 1538) [address] BASIC METABOLIC [id number] 19:53:00 Test Item Value Reference Range Interpretation [...] NOT APPLICABLE FOR DIALYSIS PATIEN TS. POCT-GLUCOSE [id number] 17:25:00 Test Item Value Reference Range Interpretation Comments POC-GLUCOSE METER 97 mg/dL 70-110 TESTED AT [place] [address] ([facility]) ([facility] [address] 1538) CLOSTRIDIUM DIFFICILE TOXIN [id number] 15:24:00 Test Item Value Reference Range Interpretation Comments CLOSTRIDIUM DIFFICILE TOXIN, PCR Not Detected Not Detected ([facility]) (test code = 1525) This qualitative [...] of a positive result is not recommended.POCT-GLUCOSE [id number] 12:30:00 Test Item Value Reference Range Interpretation Comments POC-GLUCOSE METER 110 mg/dL 70-110 TESTED AT [facility] 67 ([facility]) (test code = [facility] 1538) [address] POCT-GLUCOSE [id number] 07:56:00 Test Item Value Reference Range Interpretation Comments POC-GLUCOSE METER 94 mg/dL 70-110 TESTED AT [place] [address] ([facility]) (test code = [facility] [address] 1538) HEMOGLOBIN [id number] 07:48:00 Test Item Value Reference Range Interpretation Comments HEMOGLOBIN A1C ([facility]) (test code = 5.4 % 4.3-6.1 368) CBC W/PLT COUNT & AUTO [id number] 06:42:00 Test Item Value Reference Range Interpretation [...] K/ L 0.00-0.20 (test code = 417) [id number] 06:06:00 Test Item Value Reference Range Interpretation Comments PHOSPHORUS (BEAKER) (test code = 3.7 mg/dL 2.3-4.7 604) [id number] 06:06:00 Test Item Value Reference Range Interpretation Comments MAGNESIUM (BEAKER) (test code = 1.4 mg/dL 1.6-2.6 L 627) BASIC METABOLIC [id number] 06:06:00 Test Item Value Reference Range Interpretation [...] NOT APPLICABLE FOR DIALYSIS PATIEN TS. POCT-GLUCOSE [id number] 21:04:00 Test Item Value Reference Range Interpretation Comments POC-GLUCOSE METER 100 mg/dL 70-110 TESTED AT [facility] 6720 (BEAKER) (test code = [place] 1538) [address] BASIC METABOLIC [id number] 20:03:00 Test Item Value Reference Range Interpretation [...] NOT APPLICABLE FOR DIALYSIS PATIEN TS. POCT-GLUCOSE [id number] 15:45:00 Test Item Value Reference Range Interpretation Comments POC-GLUCOSE METER 130 mg/dL 70-110 H TESTED AT [facility] 6720 ([facility]) (test code = [facility] Tammy [facility] 1538) [address] POCT-GLUCOSE [id number] 11:20:00 Test Item Value Reference Range Interpretation Comments POC-GLUCOSE METER 102 mg/dL 70-110 TESTED AT [facility] 6720 ([facility]) (test code = [facility] 1538) [address] HEMOGLOBIN [id number] 08:50:00 Test Item Value Reference Range Interpretation Comments HEMOGLOBIN A1C (BEAKER) (test code = 5.6 % 4.3-6.1 368) [id number] 05:44:00 Test Item Value Reference Range Interpretation Comments PHOSPHORUS (BEAKER) (test code = 3.4 mg/dL 2.3-4.7 604) [id number] 05:44:00 Test Item Value Reference Range Interpretation Comments MAGNESIUM (BEAKER) (test code = 1.7 mg/dL 1.6-2.6 627) BASIC METABOLIC [id number] 05:44:00 Test Item Value Reference Range Interpretation [...] PATIEN TS. CBC W/PLT COUNT & AUTO [id number] 05:39:00 Test Item Value Reference Range Interpretation [...] NEUTROPHILS ABSOLUTE COUNT 7.48 K/ L 1.80-8.00 ([facility]) (test code = 670) LYMPHOCYTES ABSOLUTE COUNT 1.49 K/ L 1.48-4.50 (AKER) (test code = 414) MONOCYTES ABSOLUTE COUNT (BEAKER) 0.94 K/ L 0.00-1.30 (test code = 415) EOSINOPHILS ABSOLUTE COUNT 0.30 K/ L 0.00-0.50 (BEAKER) (test code = 416) BASOPHILS ABSOLUTE COUNT (BEAKER) 0.07 K/ L 0.00-0.20 (test code = 417) 0.00POCT-GLUCOSE [id number] 23:15:00 Test Item Value Reference Range Interpretation Comments POC-GLUCOSE METER 83 mg/dL 70-110 TESTED AT [place] [address] ([facility]) (test code = [facility] [address] 1538) POCT-GLUCOSE [id number] 17:19:00 Test Item Value Reference Range Interpretation Comments POC-GLUCOSE METER 82 mg/dL 70-110 TESTED AT [place] [address] ([facility]) (test code = [facility] [address] 1538) POCT-GLUCOSE [id number] 12:57:00 Test Item Value Reference Range Interpretation Comments POC-GLUCOSE METER 124 mg/dL 70-110 H TESTED AT [place] [address] ([facility]) (test code = [facility] 1538) [address] HEMOGLOBIN [id number] 10:12:00 Test Item Value Reference Range Interpretation Comments HEMOGLOBIN A1C ([facility]) (test code = 5.6 % 4.3-6.1 368) CBC W/PLT COUNT & AUTO [id number] 06:14:00 Test Item Value Reference Range Interpretation Comments WHITE BLOOD CELL COUNT ([facility]) 12.1 K/ L 4.0-10.0 H (test code = 775) RED BLOOD CELL COUNT ([facility]) 4.29 M/ L 4.00-5.00 (test code = 761) HEMOGLOBIN ([facility]) (test code = 12.5 GM/DL 12.0-15.0 410) HEMATOCRIT ([facility]) (test code = 38.8 % 36.0-45.0 411) MEAN CORPUSCULAR VOLUME ([facility]) 90.4 fL 82.0-99.0 (test code = 753) [...] K/ L 0.00-0.20 (test code = 417) [id number] 05:43:00 Test Item Value Reference Range Interpretation Comments PHOSPHORUS (BEAKER) (test code = 4.1 mg/dL 2.3-4.7 604) [id number] 05:43:00 Test Item Value Reference Range Interpretation Comments MAGNESIUM (BEAKER) (test code = 1.9 mg/dL 1.6-2.6 627) BASIC METABOLIC [id number] 05:43:00 Test Item Value Reference Range Interpretation [...] NOT APPLICABLE FOR DIALYSIS PATIEN TS. POCT-GLUCOSE [id number] 05:12:00 Test Item Value Reference Range Interpretation Comments POC-GLUCOSE METER 89 mg/dL 70-110 TESTED AT [place] [address] ([facility]) (test code = [facility] [address] 1538) POCT-GLUCOSE [id number] 00:07:00 Test Item Value Reference Range Interpretation Comments POC-GLUCOSE METER 92 mg/dL 70-110 TESTED AT [place] [address] ([facility]) (test code = [facility] [address] 1538) [id number] 23:51:00 Test Item Value Reference Range Interpretation [...] is 2.5-3.5 for patients with mechanical heart valves.[id number] 23:49:00 Test Item Value Reference Range Interpretation Comments MAGNESIUM (BEAKER) 1.9 mg/dL 1.6-2.6 Specimen slightly (test code = 627) hemolyzed [id number] 23:49:00 Test Item Value Reference Range Interpretation Comments PHOSPHORUS (BEAKER) 3.4 mg/dL 2.3-4.7 Specimen slightly (test code = 604) hemolyzed BASIC METABOLIC [id number] 23:49:00 Test Item Value Reference Range Interpretation [...] PATIEN TS. CBC W/PLT COUNT & AUTO [id number] 23:38:00 Test Item Value Reference Range Interpretation [...] 0.00-0.20 (test code = 417) 0.00URINALYSIS W/ [id number] 22:57:00 Test Item Value Reference Range Interpretation [...] 1574) SOURCE(BEAKER) (test code = Urine, Perez 7824)
--- OUTSIDE RECORDS SUMMARY | 2020-09-21 19:44 | XMS REPORT | Summary of Care ---
:1955 Author Organization [facility] Address [address] [place] [address] Care Team Providers Name Role Phone MD Ajit Primary Care Provider MD Ajit Unavailable Reason for Visit Reason Comments Refill Request Encounter Details Date Type Department Care Team Description 07/29/2020 Refill [facility] Family Medicine Arthur Stiles MD Refill Request - [address] [place] [address] [place] [address] [phone] Allergies No Known Allergiesdocumented as of this encounter (statuses as of 07/31/2020) Medications Medication Sig Dispensed Refills Start Date [...] back pain laterality, unspecified whether sciatica present VALSARTAN-HYDROCHLOROTHI TAKE 1 TABLET 90 tablet 0 04/25/2020 Active AZIDE 320-25 mg per BY MOUTH EVERY tabletIndications: DAY Essential hypertension, benign METOPROLOL SUCCINATE [...] pain FUROSEMIDE 20 mg TAKE 1 TABLET 90 tablet 1 06/30/2020 Active tabletIndications: BY MOUTH EVERY Essential hypertension, DAY benign LEVOTHYROXINE 175 mcg TAKE 1 TABLET 90 tablet 0 07/14/2020 Active tabletIndications: BY MOUTH EVERY 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 ALLOPURINOL 100 mg TAKE 1 TABLET 90 tablet 0 07/14/2020 Active tabletIndications: BY MOUTH EVERY Chronic gout without DAY tophus, unspecified cause, unspecified site documented as of this encounter (statuses as of 07/31/2020) Active Problems Problem Noted Date Staghorn calculus 11/16/2018 Kidney stone 10/13/2018 Overview: Added automatically from request for manda mancia [id number] Chronic gout without tophus, unspecified cause, unspec ified site 10/01/2018 Vaginal bleeding 05/05/2018 Postmenopausal vaginal bleeding 05/05/2018 Recurrent joint pain 05/05/2018 Dehydration 01/18/2018 Fistula 12/31/2017 Overview: Added automatically from request for manda mancia [id number] Hypotension 12/25/2017 Morbid obesity with body mass [...] 06/22/2015 Pyelonephritis 06/25/2007 Overview: ICD10 Diagnosis Term 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 Type 2 diabetes mellitus with stage 3 chronic kidney d isease, without 06/25/2007 long-term current use of insulin Essential hypertension, benign 06/25/2007 Hypothyroidism 06/25/2007 Overview: ICD10 Diagnosis Term 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 documented as of this encounter (statuses as of 07/31/2020) Immunizations Name Administration Dates Next Due Influenza [...] of this encounter Implants Implanted Type Area [employer] Member Device Shelf Expiration Model / Identifier Date Serial / Lot Ivc Filter Janice Femoral Bard #[id number] - S0 FILTER Groin Bar d 10/15/2020 [id number] / Implanted: Qty: 1 on 01/20/2018 by Karl Damon MD at [facility] 0 / [id number] documented as of this encounter Results Not on filedocumented in this encounter Visit Diagnoses Diagnosis Essential hypertension, benign documented in this encounter Insurance Payer Benefit Plan / Subscriber ID Effective Dates Phone Addre ss Type Group CIGNA CIGNA II [id number] 2003-[facility] O/PPO/POS t [employer] [place] [employer] [place] [id number] 2019-Pres[place] Medicare Adv PLUS PLUS t HMO CLASSIC/VALUE documented as of this encounter
--- OUTSIDE RECORDS SUMMARY | 2020-09-21 19:44 | XMS REPORT | Summary of Care ---
:1955 Author Organization [facility] Address [address] [place] [address] Care Team Providers Name Role Phone MD Ajit Primary Care Provider MD Ajit Unavailable Reason for Visit Reason Comments Refill Request Encounter Details Date Type Department Care Team Description 06/30/2020 Refill [facility] Family Medicine Arthur Stiles MD Refill Request - [address] [place] [address] [place] [address] [phone] Allergies No Known Allergiesdocumented as of this encounter (statuses as of 06/30/2020) Medications Medication Sig Dispensed Refills Start End [...] mg TAKE 1 TABLET 90 tablet 1 06/30/20 Active tabletIndications: BY MOUTH EVERY 20 Essential hypertension, DAY benign FUROSEMIDE 20 mg TAKE 1 TABLET 30 tablet 0 06/16/20 Discontinued tabletIndications: BY MOUTH EVERY 20 020 Essential hypertension, DAY benign documented as of this encounter (statuses as of 06/30/2020) Active Problems Problem Noted Date Staghorn calculus 11/16/2018 Kidney stone 10/13/2018 Overview: Added automatically from request for manda mancia [id number] Chronic gout without tophus, unspecified cause, unspec ified site 10/01/2018 Vaginal bleeding 05/05/2018 Postmenopausal vaginal bleeding 05/05/2018 Recurrent joint pain 05/05/2018 Dehydration 01/18/2018 Fistula 12/31/2017 Overview: Added automatically from request for manda mancia [id number] Hypotension 12/25/2017 Morbid obesity with body mass [...] 06/22/2015 Pyelonephritis 06/25/2007 Overview: ICD10 Diagnosis Term Backup Engineer 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 Type 2 diabetes mellitus with stage 3 chronic kidney d isease, without 06/25/2007 long-term current use of insulin Essential hypertension, benign 06/25/2007 Hypothyroidism 06/25/2007 Overview: ICD10 Diagnosis Term Backup Engineer Utility documented as of this encounter (statuses as of 06/30/2020) Immunizations Name Administration Dates Next Due Influenza [...] of this encounter Implants Implanted Type Area Hospital Plan Administrator Device Shelf Expiration Model / Identifier Date Serial / Lot Ivc Filter [place] Femoral [facility] #[id number] - S0 FILTER Groin Bar d 10/15/2020 [id number] / Implanted: Qty: 1 on 01/20/2018 by Karl Damon MD at [facility] 0 / [id number] documented as of this encounter Results Not on filedocumented in this encounter Visit Diagnoses Diagnosis Essential hypertension, benign documented in this encounter Insurance Payer Benefit Plan / Subscriber ID Effective Dates Phone Addre ss Type Group CIGNA CIGNA II [id number] 2003-[facility] O/PPO/POS t [employer] [place] [employer] [place] [id number] 2019-[place] Medicare Adv PLUS PLUS t HMO CLASSIC/VALUE documented as of this encounter
--- OUTSIDE RECORDS SUMMARY | 2020-09-21 19:44 | XMS REPORT | Summary of Care ---
:[address] [facility] Address [address] [place] [address] Care Team Providers Name Role Phone MD Ajit Primary Care Provider MD Ajit Unavailable Reason for Visit Reason Comments Refill Request Encounter Details Date Type Department Care Team Description 07/14/2020 Refill [facility] Family Medicine Arthur Stiles MD Refill Request - [address] [place] [address] [place] [address] [phone] Allergies No Known Allergiesdocumented as of this encounter (statuses as of 07/14/2020) Medications Medication Sig Dispensed Refills Start End [...] back pain laterality, unspecified whether sciatica present VALSARTAN-HYDROCHLOROTH TAKE 1 TABLET 90 tablet 0 [...] MOUTH EVERY 20 Essential hypertension, DAY benign LEVOTHYROXINE 175 mcg TAKE 1 TABLET 90 tablet 0 07/14/20 Active tabletIndications: BY MOUTH EVERY 20 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 ALLOPURINOL 100 mg TAKE 1 TABLET 90 tablet 0 07/14/20 Active tabletIndications: BY MOUTH EVERY 20 Chronic gout without DAY tophus, unspecified cause, unspecified site LEVOTHYROXINE 175 mcg TAKE 1 TABLET 90 tablet 0 04/13/2006/17 0 Discontinued tabletIndications: BY MOUTH EVERY 20 020 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 ALLOPURINOL 100 mg TAKE 1 TABLET 90 tablet 0 04/20/20 Discontinued tabletIndications: BY MOUTH EVERY 20 020 Chronic gout without DAY tophus, unspecified cause, unspecified site documented as of this encounter (statuses as of 07/14/2020) Active Problems Problem Noted Date Staghorn calculus 11/16/2018 Kidney stone 10/13/2018 Overview: Added automatically from request for manda mancia [id number] Chronic gout without tophus, unspecified cause, unspec ified site 10/01/2018 Vaginal bleeding 05/05/2018 Postmenopausal vaginal bleeding 05/05/2018 Recurrent joint pain 05/05/2018 Dehydration 01/18/2018 Fistula 12/31/2017 Overview: Added automatically from request for manda mancia [id number] Hypotension 12/25/2017 Morbid obesity with body mass [...] 06/22/2015 Pyelonephritis 06/25/2007 Overview: ICD10 Diagnosis Term 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 Type 2 diabetes mellitus with stage 3 chronic kidney d isease, without 06/25/2007 long-term current use of insulin Essential hypertension, benign 06/25/2007 Hypothyroidism 06/25/2007 Overview: ICD10 Diagnosis Term 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 documented as of this encounter (statuses as of 07/14/2020) Immunizations Name Administration Dates Next Due Influenza [...] of this encounter Implants Implanted Type Area Fire Code Inspector Device Shelf Expiration Model / Identifier Date Serial / Lot Ivc Filter Janice Femoral Bard #[id number] - S0 FILTER Groin Bar d 10/15/2020 [id number] / Implanted: Qty: 1 on 01/20/2018 by Karl Damon MD at [facility] 0 / [id number] documented as of this encounter Results Not on filedocumented in this encounter Visit Diagnoses Diagnosis 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
--- OUTSIDE RECORDS SUMMARY | 2020-09-21 19:44 | XMS REPORT | Summary of Care ---
:1955 Author Organization [facility] [place] [address] Care Team Providers Name Role Phone Clay Fong MD Primary Care Provider Reason for Visit Reason Comments Post-op Follow-up Encounter Details Date Type Department Care Team Description 07/31/2020 Office Visit [facility] Luis Angel Nation, Post-o p Follow-up Medicine Orthopedic Surgery [facility] [address], [place] [address] [place] [address] [phone] Allergies No Known Active Allergiesdocumented as of this encounter (statuses as of 07/31/2020) Medications Medication Sig Dispensed Refills Start Date End Date Status valsartan (DIOVAN) Take 320 mg by mouth 0 Active 320 MG tablet daily. Gabapentin, Take by mouth. 0 Ac tive Once-Daily, 300 MG TABS metoprolol Take 50 mg by mouth 0 Active (TOPROL-XL) 50 MG XL daily. tablet metformin Take 500 mg by mouth 0 Active (GLUCOPHAGE) 500 MG 2 times daily (with tablet meals). furosemide (LASIX) 20 Take 20 mg by mouth 0 Active MG tablet daily. meloxicam (MOBIC) 15 Take 15 mg by mouth 0 Active MG tablet daily. LEVOTHYROXINE SODIUM Take by mouth. 0 Active OR etodolac (LODINE) 400 Take 400 mg by mouth 0 Active MG tablet daily. zolpidem (AMBIEN) 10 Take 10 mg by mouth 0 Active MG tablet nightly as needed for Sleep. HYDROCODONE Take by mouth. 0 Ac tive BITARTRATE OR cefdinir (OMNICEF) Take 300 mg by mouth 0 Active 300 MG capsule two times daily. solifenacin Take 10 mg by mouth 0 Active (VESICARE) 10 MG daily. tablet metronidazole Take 1 Tab by mouth 30 Tab 0 01/08/2016 Active (FLAGYL) 500 MG 3 times daily. tablet Rivaroxaban (XARELTO) Take 20 mg by mouth 0 Active 20 MG TABS daily. albuterol 108 (90 Q6H 0 04/05/2020 A ctive base) mcg/act inhaler Albuterol Sulfate ProAir RespiClick 90 0 Active (PROAIR RESPICLICK) mcg/actuation breath 108 (90 Base) MCG/ACT activated AEPB allopurinol allopurinol 100 mg 0 08/09/2019 Active (ZYLOPRIM) 100 MG tablet tablet alprazolam (XANAX) 1 alprazolam 1 mg 0 05/10/2019 Active MG tablet tablet amoxicillin-clavulana amoxicillin 875 0 11/24/2019 Active te (AUGMENTIN) mg-potassium 875-125 MG per tablet clavulanate 125 mg tablet azithromycin azithromycin 250 mg 0 Active (ZITHROMAX) 250 MG tablet tablet benzonatate benzonatate 200 mg 0 Active (TESSALON) 200 mg capsule capsule Buprenorphine buprenorphine 8 0 Active HCl-Naloxone HCl 8-2 mg-naloxone 2 mg MG FILM sublingual film cephALEXin (KEFLEX) cephalexin 500 mg 0 06/22/2019 Active 500 MG capsule capsule ciprofloxacin (CIPRO) ciprofloxacin 500 mg 0 Active 500 MG tablet tablet citalopram (CELEXA) citalopram 20 mg 0 03/11/2019 Active 20 MG tablet tablet citalopram (CELEXA) TAKE 1 TABLET BY 0 05/14/2020 Active 20 MG tablet MOUTH EVERY DAY clindamycin (CLEOCIN) clindamycin HCl 300 0 06/22/20 19 Active 300 MG capsule mg capsule clobetasol (TEMOVATE) clobetasol 0.05 % 0 Active 0.05 % ointment topical ointment Cyclobenzaprine HCl cyclobenzaprine 7.5 0 Active 7.5 MG TABS mg tablet diclofenac (VOLTAREN) TWICE DAILY 0 04/05/2020 Active 50 MG EC tablet Diclofenac-miSOPROSto Take 1 Tablet by 0 Active l 75-0.2 MG TBEC mouth. econazole nitrate 1 % econazole 1 % 0 Active cream topical cream escitalopram escitalopram 10 mg 0 Active (LEXAPRO) 10 MG tablet tablet documented as of this encounter (statuses as of 07/31/2020) Active Problems Problem Noted Date Closed anterior dislocation of left shoulder 0 Femoral distal fracture (HCCode) 06/17/2020 Overview: Assessment: DOS - 06/21/20 - s/p rIMN R SC femur fx; CR L shoulder dislocation Plan: - Her R femur is healing well. She can continue to be Weightbearing as tolerated on that leg and should be working on range of motion and strengthening. - Her L shoulder has a posterior bony de fect from the dislocation. She needs to be carefull with abduction and external rotation. Her shoulder is reduced, but we were only able to get an AP xray today because of body habitus. Medications: none Weight Bearing Status: WBAT on the right leg, limited weight bearing on the left arm PT / OT: as above RTC: 2 months Radiographs at next visit: none Morbid obesity with body mass index of 40.0-49.9 (HCCo de) 12/25/2017 Kidney stones 01/08/2016 Staghorn calculus 01/08/2016 Colovesical fistula 01/08/2016 Recurrent UTI 01/08/2016 documented as of this encounter (statuses as of 07/31/2020) Social History Tobacco Use Types Packs/Day Years Used Date Never Smoker Smokeless Tobacco: Never Used Alcohol Use Drinks/Week oz/Week Comments No Sex Assigned at Date Recorded Not on file documented as of this encounter Last Filed Vital Signs Not on filedocumented in this encounter Progress Notes Luis Angel Nation MD - 07/31/2020 2:40 PM CST ESTABLISHED PATIENT NOTE Problem Closed Anterior Dislocation of Left Shoulder Femoral Distal Fracture (Hccode) Assessment: DOS - 06/21/20 - s/p rIMN R SC femur fx; CR L shoulder dislocation Plan: - Her R femur is healing well. She can continue to be Weightbearing as tolerated on that leg and should be working on range of motion and strengthening. - Her L shoulder has a posterior bony defect from the dislocation. She needs to be carefull with abduction and external rotation. Her shoulder is reduced, but we were only able to get an AP xray today because of body habitus. Medications: none Weight Bearing Status: WBAT on the right leg, limited weight bearing on the left arm PT / OT: as above RTC: 2 months Radiographs at next visit: none Morbid Obesity With Body Mass Index of 40.0-49.9 ([facility] INJURY/OPERATIVE HISTORY: Chief Complaint Patient presents with Post-op Follow-up HPI: Rosio Jain is a 64 y.o. female who reports that her right leg has no pain but that her leftshoulder is very painful with any movement. Tobacco use: Social History Tobacco Use Smoking Status Never Smoker Smokeless Tobacco Never Used BMI: There is no height or weight on file to calculate BMI. Patient counseled on BMI status. ROS: Pertinent items noted in HPI. PE-- There were no vitals filed for this visit. General - appears stated age, well-nourished, no acute distress, comfortable Cognition - alert and oriented to person, place, time, and reason for visit. Right Lower Extremity - - Musculoskeletal - no crepitis or deformity upon gross examination. Smooth logroll - Neurologic - Anterior and posterior tibial nerves intact, and sensation grossly intact to light touch. - Vascular - Capillary refill brisk. - Skin - incisions all healed Left upper extremity - - Musculoskeletal - no crepitis or deformity upon gross examination. Limited range of motion 2/2 pain. Feels to be reduced and gentle internal and external rotation is smooth - Neurologic - median, ulnar, and radial nerves grossly intact and in their motor function, sensation grossly intact and equal to the opposite side - Vascular - Capillary refill brisk. Radial pulse 2+ - Skin - No skin lesions noted. Images: I personally reviewed all relevant images. 2 views of the right femur show hardware intact without evidence of loosening or breakage. - single AP of the left shoulder shows shoulder to be reduced. Unable to get orthogonal view of hershoulder b/c of her body habitus and b/c on stretcher. Luis Angel Nation MD Physical Therapy Assistant of Orthopedic Surgery Orthopedic Trauma [facility] [phone] [email or web address] R LAB TECHNICIAN documented in this encounter Plan of Treatment Name Type Priority Associated Diagnoses Order S chedule ORT - XR SHOULDER LEFT DE Charge Routine Chronic left shoul vesna Ordered: 07/31/2020 1V (CHARGE ONLY) pain ORT - XR FEMUR RIGHT DE Charge Routine Pain in right femur Ordered: 07/31/2020 2V (CHARGE ONLY) Health Maintenance Due Date Last Done Comments COLON CANCER SCREENIN1955 COLONOSCOPY MAMMOGRAM ANNUAL 1955 HEPATITIS C SCREENING 1974 HIV SCREENING 1974 CERVICAL CANCER SCREENING 4 YEAR 1977 FOLLOW UP ZOSTER VACCINE (1 of 2) 2006 FLU VACCINE > 6 MONTHS 12/13/2020 Postponed from 04/15/2020 (Postpone Reason : Patient declined today) TETANUS SHOT (ADULT) 10/21/2028 10/21/2018 HPV VACCINE Aged Out No longer eligib le based on patient's age to complete this topic documented as of this encounter Results XR FEMUR RIGHT (COMPLETE) (07/31/2020 4:47 PM SOLAR LAB TECHNICIAN) Specimen Narrative Performed At For result, please reference physician's note on the c orresponding date. XR SHOULDER LEFT 1 VW (07/31/2020 4:47 PM SOLAR LAB TECHNICIAN) Specimen Narrative Performed At For result, please reference physician's note on the c orresponding date. documented in this encounter Visit Diagnoses Diagnosis Chronic left shoulder pain - Primary Pain in joint, shoulder region Pain in right femur Closed fracture of distal end of right f emur with routine healing, unspecified fracture morphology, subsequent encounte r Closed anterior dislocation of left shou lder, subsequent encounter Morbid obesity with body mass index of 4 0.0-49.9 (HCCode) documented in this encounter Insurance Payer Benefit Plan / Subscriber ID Effective Phone Address T [facility] Dates [email or web address] OPEN ACCESS [id number] 2003-Kimmie H[place] PPO PLUS - CIGNA nt [id number] [place] [address] [facility] [id number] 2020-[id number] Medicare PLANS,[facility] [address] ([place]) [place] [address] documented as of this encounter
--- OUTSIDE RECORDS SUMMARY | 2020-09-21 19:45 | XMS REPORT | Summary of Care ---
:1955 Author Organization [facility] - Health Address [address] [place] [address] Care Team Providers Name Role Phone MD Ajit Primary Care Provider MD Ajit Unavailable Encounter Details Date Type Department Care Team Description 07/31/2020 Orders Only [facility] Doctor Unassigned, No [address] [facility] [place] [place] [address] [address] [place] [address] Allergies No Known Allergiesdocumented as of this encounter (statuses as of 08/15/2020) Medications Medication Sig Dispensed Refills Start Date [...] as of this encounter (statuses as of 08/15/2020) Active Problems Problem Noted Date Staghorn calculus 11/16/2018 Kidney stone 10/13/2018 Overview: Added automatically from request for manda mancia [id number] Chronic gout without tophus, unspecified cause, unspec ified site 10/01/2018 Vaginal bleeding 05/05/2018 Postmenopausal vaginal bleeding 05/05/2018 Recurrent joint pain 05/05/2018 Dehydration 01/18/2018 Fistula 12/31/2017 Overview: Added automatically from request for manad mancia [id number] Hypotension 12/25/2017 Morbid obesity with body mass [...] 06/22/2015 Pyelonephritis 06/25/2007 Overview: ICD10 Diagnosis Term Deicer Repairer Pneumatic Utility Type 2 diabetes mellitus with stage 3 chronic kidney d isease, without 06/25/2007 long-term current use of insulin Essential hypertension, benign 06/25/2007 Hypothyroidism 06/25/2007 Overview: ICD10 Diagnosis Term Deicer Repairer Pneumatic Utility documented as of this encounter (statuses as of 08/15/2020) Immunizations Name Administration Dates Next Due Influenza [...] this encounter Implants Implanted Type Area Dog Control Officer Device Shelf Expiration Model / Identifier Date Serial / Lot Ivc Filter Janice Femoral [facility] #[id number] - S0 FILTER Groin Bar d 10/15/2020 [id number] / Implanted: Qty: 1 on 01/20/2018 by Karl Damon MD at [facility] 0 / [id number] documented as of this encounter Procedures Procedure Name Priority Date/Time Associated Diagnosis Comme nts REFERRAL- Routine 07/31/2020 12:01 AM DYE WEIGHER REQUEST/RESPONSE documented in this encounter Results Not on filedocumented in this encounter Insurance Payer Benefit Plan / Subscriber ID Effective Dates Phone Addre ss Type Group CIGNA CIGNA II [id number] [facility] WELL[facility]ARE [place] WELLCARE [place] [id number] 2019-Presen Medicare Adv PLUS PLUS t HMO CLASSIC/VALUE documented as of this encounter
--- OUTSIDE RECORDS SUMMARY | 2020-09-21 19:45 | XMS REPORT | Summary of Care ---
:1955 Author Organization [facility] Address [address] [place] [address] Care Team Providers Name Role Phone MD Ajit Primary Care Provider MD Ajit Unavailable Reason for Visit Reason Comments Refill Request Encounter Details Date Type Department Care Team Description 08/25/2020 Refill [facility] Family Medicine Arthur Stiles MD Refill Request - [address] [place] [address] [place] [address] [phone] Allergies No Known Allergiesdocumented as of this encounter (statuses as of 08/28/2020) Medications Medication Sig Dispensed Refills Start Date [...] as of this encounter (statuses as of 08/28/2020) Active Problems Problem Noted Date Staghorn calculus 11/16/2018 Kidney stone 10/13/2018 Overview: Added automatically from request for manda mancia [id number] Chronic gout without tophus, unspecified cause, unspec ified site 10/01/2018 Vaginal bleeding 05/05/2018 Postmenopausal vaginal bleeding 05/05/2018 Recurrent joint pain 05/05/2018 Dehydration 01/18/2018 Fistula 12/31/2017 Overview: Added automatically from request for manda mancia [id number] Hypotension 12/25/2017 Morbid obesity with body mass [...] 06/22/2015 Pyelonephritis 06/25/2007 Overview: ICD10 Diagnosis Term Administrative Support Associate Utility Type 2 diabetes mellitus with stage 3 chronic kidney d isease, without 06/25/2007 long-term current use of insulin Essential hypertension, benign 06/25/2007 Hypothyroidism 06/25/2007 Overview: ICD10 Diagnosis Term Administrative Support Associate Utility documented as of this encounter (statuses as of 08/28/2020) Immunizations Name Administration Dates Next Due Influenza [...] this encounter Miscellaneous Notes Telephone Encounter - Stormy Aguirre LVN - 08/25/2020 4:02 PM CST 7 months ago (12/27/2019) ALPRAZolam 1 mg tablet Take 1 tablet by mouth 3 (three) times daily as needed for Other (anxiety). Dispense: 60 tablet Refills: 5 Pharmacy: [facility] Last Office Visit: telemed 12/27/2019 Next Office Visit: none LE FINANCIALS DEVELOPER documented in this encounter Plan of Treatment [...] of this encounter Implants Implanted Type Area Hydroelectric Plant Electrician Device Shelf Expiration Model / Identifier Date Serial / Lot Ivc Filter Janice Femoral [facility] #[id number] - S0 FILTER Groin Bar d 10/15/2020 [id number] / Implanted: Qty: 1 on 01/20/2018 by Karl Damon MD at [facility] 0 / [id number] documented as of this encounter Results Not on filedocumented in this encounter Visit Diagnoses Diagnosis Anxiety Anxiety state, unspecified documented in this encounter Insurance Payer Benefit Plan / Subscriber ID Effective Dates Phone Addre ss Type Group CIGNA CIGNA II [id number] 2003-Presen O/PPO/POS t WE[place]CARE [place] WELL[place]ARE [place] [id number] 2019-Presen Medicare Adv PLUS PLUS t HMO CLASSIC/VALUE documented as of this encounter
--- OUTSIDE RECORDS SUMMARY | 2020-09-21 19:46 | XMS REPORT | Summary of Care ---
:1955 Author Organization [facility] Address [address] [place] [address] Care Team Providers Name Role Phone MD Ajit Primary Care Provider MD Ajit Unavailable Reason for Visit Reason Comments Orders Encounter Details Date Type Department Care Team Description 08/29/2020 Telephone [facility] Family Medicine Arthur Stiles MD Orders - [address] [place] [facility] [place] [address] [place] [address] [phone] Allergies No Known Allergiesdocumented as of this encounter (statuses as of 08/31/2020) Medications Medication Sig Dispensed Refills Start Date [...] as of this encounter (statuses as of 08/31/2020) Active Problems Problem Noted Date Staghorn calculus 11/16/2018 Kidney stone 10/13/2018 Overview: Added automatically from request for manda mancia [id number] Chronic gout without tophus, unspecified cause, unspec ified site 10/01/2018 Vaginal bleeding 05/05/2018 Postmenopausal vaginal bleeding 05/05/2018 Recurrent joint pain 05/05/2018 Dehydration 01/18/2018 Fistula 12/31/2017 Overview: Added automatically from request for manda mancia [id number] Hypotension 12/25/2017 Morbid obesity with body mass [...] 06/22/2015 Pyelonephritis 06/25/2007 Overview: ICD10 Diagnosis Term Deburrer Strip Utility Type 2 diabetes mellitus with stage 3 chronic kidney d isease, without 06/25/2007 long-term current use of insulin Essential hypertension, benign 06/25/2007 Hypothyroidism 06/25/2007 Overview: ICD10 Diagnosis Term Deburrer Strip Utility documented as of this encounter (statuses as of 08/31/2020) Immunizations Name Administration Dates Next Due Influenza [...] this encounter Miscellaneous Notes Telephone Encounter - Arthur Fong MD - 08/30/2020 4:10 PM CSTOK elephone Encounter - Mabel Bone LVN - 08/30/2020 3:48 PM CSTPlease advise elephone Encounter - Sachin Hanna - 08/29/2020 1:22 PM CSTPatient is calling in requesting new orders for PT and OT sent to [facility] fax#[phone] [facility]an. documented in this encounter Plan of Treatment Date Type Specialty Care Team Description 09/11/2020 Office Visit Family Medicine Arthur Fong MD [address] [place], [place] [phone] Health Maintenance Due Date Last [...] of this encounter Implants Implanted Type Area Detector Car Operator Device Shelf Expiration Model / Identifier Date Serial / Lot Ivc Filter Janice Femoral [employer] #[id number] - S0 FILTER Groin Bar d 10/15/2020 [id number] / Implanted: Qty: 1 on 01/20/2018 by Karl Damon MD at [facility] 0 / [id number] documented as of this encounter Results Not on filedocumented in this encounter Insurance Payer Benefit Plan / Subscriber ID Effective Dates Phone Addre ss Type Group CIGNA CIGNA II [id number] 2003-[facility] O/PPO/POS t WELLCARE VI [facility] SALUDLYSSA [id number] 2019-Presen Medicare Adv PLUS PLUS t HMO CLASSIC/VALUE documented as of this encounter
--- OUTSIDE RECORDS SUMMARY | 2020-09-21 19:46 | XMS REPORT | Summary of Care ---
:1955 Author Organization [facility] Address [address] [place] [address] Care Team Providers Name Role Phone MD Ajit Primary Care Provider MD Ajit Unavailable Reason for Visit Reason Comments Follow-up Encounter Details Date Type Department Care Team Description 08/31/2020 Telephone [facility] Family Medicine Arthur Stiles MD Follow-up - [address] [place] [address] [place] [address] [phone] Allergies No Known Allergiesdocumented as of this encounter (statuses as of 09/04/2020) Medications Medication Sig Dispensed Refills Start Date [...] as of this encounter (statuses as of 09/04/2020) Active Problems Problem Noted Date Staghorn calculus 11/16/2018 Kidney stone 10/13/2018 Overview: Added automatically from request for manda mancia [id number] Chronic gout without tophus, unspecified cause, unspec ified site 10/01/2018 Vaginal bleeding 05/05/2018 Postmenopausal vaginal bleeding 05/05/2018 Recurrent joint pain 05/05/2018 Dehydration 01/18/2018 Fistula 12/31/2017 Overview: Added automatically from request for manda mancia [id number] Hypotension 12/25/2017 Morbid obesity with body mass [...] 06/22/2015 Pyelonephritis 06/25/2007 Overview: ICD10 Diagnosis Term Pizza Cook Utility Type 2 diabetes mellitus with stage 3 chronic kidney d isease, without 06/25/2007 long-term current use of insulin Essential hypertension, benign 06/25/2007 Hypothyroidism 06/25/2007 Overview: ICD10 Diagnosis Term Pizza Cook Utility documented as of this encounter (statuses as of 09/04/2020) Immunizations Name Administration Dates Next Due Influenza [...] Telephone Encounter - Mabel Bone LVN - 09/01/2020 3:59 PM CSTReturned call to Maritza with [facility] regarding notice that patient had been hospitalized recently due to fx of femur, hip knee and shoulder. I left message for Maritza To call me back as this is the first we have gotten of this information about patient. Will wait for call back and close this encounter until such time. Outing to provider for notification. elephone Encounter - Marni Nicholas - 08/31/2020 11:38 AM Woody a nurse renal case manager with [facility] is calling stating that the patient was in the hospital due to breaking femur, hip, knee and shoulder, Maritza is stating that she would like to touch base with a nurse to discuss further. documented in this encounter Plan of Treatment Date Type Specialty Care Team Description 09/11/2020 Office Visit Family Medicine Arthur Fong MD [address] [place] [phone] Health Maintenance Due Date Last Done [...] of this encounter Implants Implanted Type Area Run Boat Operator Device Shelf Expiration Model / Identifier Date Serial / Lot Ivc Filter [place] Femoral Us [employer] #[id number] - S0 FILTER Groin Bar d 10/15/2020 [id number] / Implanted: Qty: 1 on 01/20/2018 by Karl Damon MD at [facility] 0 / [id number] documented as of this encounter Results Not on filedocumented in this encounter Insurance Payer Benefit Plan / Subscriber ID Effective Dates Phone Addre ss Type Group CIGNA CIGNA II [id number] 2003-Presen [facility] O/PPO/POS t [place]ARE [place] WE[place]ARE [place] [id number] 2019-Presen Medicare Adv PLUS PLUS t HMO CLASSIC/VALUE documented as of this encounter
--- OUTSIDE RECORDS SUMMARY | 2020-09-21 19:46 | XMS REPORT | Summary of Care ---
:1955 Author Organization [facility] Address [address] [place] [address] Care Team Providers Name Role Phone MD Ajit Primary Care Provider MD Ajit Unavailable Reason for Visit Reason Comments Assessment Encounter Details Date Type Department Care Team Description 08/31/2020 Telephone [facility] Family Medicine Arthur Stiles MD Assessment - [address] [place]ammell [facility] [place] [address] [place] [address] [phone] Allergies No Known Allergiesdocumented as of this encounter (statuses as of 09/01/2020) Medications Medication Sig Dispensed Refills Start Date [...] as of this encounter (statuses as of 09/01/2020) Active Problems Problem Noted Date Staghorn calculus 11/16/2018 Kidney stone 10/13/2018 Overview: Added automatically from request for manda mancia [id number] Chronic gout without tophus, unspecified cause, unspec ified site 10/01/2018 Vaginal bleeding 05/05/2018 Postmenopausal vaginal bleeding 05/05/2018 Recurrent joint pain 05/05/2018 Dehydration 01/18/2018 Fistula 12/31/2017 Overview: Added automatically from request for manda mancia [id number] Hypotension 12/25/2017 Morbid obesity with body mass [...] 06/22/2015 Pyelonephritis 06/25/2007 Overview: ICD10 Diagnosis Term Child Daycare Worker Utility Type 2 diabetes mellitus with stage 3 chronic kidney d isease, without 06/25/2007 long-term current use of insulin Essential hypertension, benign 06/25/2007 Hypothyroidism 06/25/2007 Overview: ICD10 Diagnosis Term Child Daycare Worker Utility documented as of this encounter (statuses as of 09/01/2020) Immunizations Name Administration Dates Next Due Influenza [...] Encounter - Mabel Bone LVN - 09/01/2020 3:32 PM CSTPatient is asking for more than Home Health services allows, she is requesting a provider to help her in the home for several hours a day she will need to contact her insurance to see if this type of service is covered or she can contact the [place] Department of Health and Human Services for aid through that agency. Pt was notified and advised to call her insurance to see if this service is covered, sh e will do so. elephone Encounter - Alma Delia Hough - 08/31/2020 1:42 PM CSTPatient is calling stating she is needing help finding HH services in her area for care and is really needing to speak with someone please advise. Patient states she is having hard time getting around and needs someone to help her for about 4 hours a day. OOD FACTORY WORKER documented in this encounter Plan of Treatment Date Type Specialty Care Team Description 09/11/2020 Office Visit Family Medicine Arthur Fong MD [address] [place] [phone] Health Maintenance Due Date Last [...] of this encounter Implants Implanted Type Area Personnel Consultant Device Shelf Expiration Model / Identifier Date Serial / Lot Ivc Filter Janice Femoral Bard #[id number] - S0 FILTER Groin Bar d 10/15/2020 [id number] / Implanted: Qty: 1 on 01/20/2018 by Karl Damon MD at [facility] 0 / [id number] documented as of this encounter Results Not on filedocumented in this encounter Insurance Payer Benefit Plan / Subscriber ID Effective Dates Phone Addre ss Type Group CIGNA CIGNA II [id number] 2003-Presen HM O/PPO/POS t [place] [place] [employer] [place] [id number] 2019-Presen Medicare Adv PLUS PLUS t HMO CLASSIC/VALUE documented as of this encounter
--- OUTSIDE RECORDS SUMMARY | 2020-09-21 19:46 | XMS REPORT | Summary of Care ---
:1955 Author Organization [facility] Address [address] [place] [address] Care Team Providers Name Role Phone MD Ajit Primary Care Provider MD Ajit Unavailable Reason for Visit Reason Comments Refill Request Encounter Details Date Type Department Care Team Description 08/31/2020 Refill [facility] Family Medicine Arthur Stiles MD Refill Request - [address] [place] [address] [place] [address] [phone] Allergies No Known Allergiesdocumented as of this [...] Added automatically from request for manda mancia [id number] Chronic gout without tophus, unspecified cause, unspec ified site 10/01/2018 Vaginal bleeding 05/05/2018 Postmenopausal vaginal bleeding 05/05/2018 Recurrent joint pain 05/05/2018 Dehydration 01/18/2018 Fistula 12/31/2017 Overview: Added automatically from request for manda mancia [id number] Hypotension 12/25/2017 Morbid obesity with body mass [...] 06/22/2015 Pyelonephritis 06/25/2007 Overview: ICD10 Diagnosis Term Funeral Pre Arrangement Counselor Utility Type 2 diabetes mellitus with stage 3 chronic kidney d isease, without 06/25/2007 long-term current use of insulin Essential hypertension, benign 06/25/2007 Hypothyroidism 06/25/2007 Overview: ICD10 Diagnosis Term Funeral Pre Arrangement Counselor Utility documented as of this encounter (statuses [...] Office Visit Family Medicine Arthur Fong MD [address] [place] [address] [phone] Health Maintenance Due Date Last Done [...] of this encounter Implants Implanted Type Area Sr. Payroll Manager Device Shelf Expiration Model / Identifier Date Serial / Lot Ivc Filter [place] Femoral [facility] #[id number] - S0 FILTER Groin Bar d 10/15/2020 [id number] / Implanted: Qty: 1 on 01/20/2018 by Karl Damon MD at [facility] 0 / [id number] documented as of this encounter Results Not on filedocumented in this encounter Visit Diagnoses Diagnosis Anemia, unspecified type Type 2 diabetes mellitus without complic ation, without long-term current use of insulin documented in this encounter Insurance Payer Benefit Plan / Subscriber ID Effective Dates Phone Addre ss Type Group CIGNA CIGNA II [id number] 2003-Presen O/PPO/POS t [place] [place] [employer] [place] [id number] 2019-Presen Medicare Adv PLUS PLUS t HMO CLASSIC/VALUE documented as of this encounter
--- OUTSIDE RECORDS SUMMARY | 2020-09-21 19:47 | XMS REPORT | Summary of Care ---
:1955 Author Organization [facility] - [facility] Address [address] [place] [address] Care Team Providers Name Role Phone MD Ajit Primary Care Provider MD Ajit Unavailable Reason for Visit Reason Comments Follow-up Encounter Details Date Type Department Care Team Description 08/31/2020 Telephone [facility] Family Medicine Arthur Stiles MD Follow-up - [address] [place] [address] [place] [address] [phone] Allergies No Known Allergiesdocumented as of this encounter (statuses as of 09/04/2020) Medications Medication Sig Dispensed Refills Start End [...] unspecified bedtime as type needed for Insomnia. SULFAMETHOXAZOLE-TRIMET TAKE 1 TABLET 20 tablet 0 [...] without DAY tophus, unspecified cause, unspecified site ALPRAZolam 1 mg Take 1 tablet 60 tablet 5 12/27/19 Discontinued tabletIndications: by mouth 3 20 020 Anxiety (three) times daily as needed for Other (anxiety). documented as of this encounter (statuses as of 09/04/2020) Active Problems Problem Noted Date Staghorn calculus 11/16/2018 Kidney stone 10/13/2018 Overview: Added automatically from request for manda blanche [id number] Chronic gout without tophus, unspecified cause, unspec ified site 10/01/2018 Vaginal bleeding 05/05/2018 Postmenopausal vaginal bleeding 05/05/2018 Recurrent joint pain 05/05/2018 Dehydration 01/18/2018 Fistula 12/31/2017 Overview: Added automatically from request for manda mancia [id number] Hypotension 12/25/2017 Morbid obesity with body mass [...] 06/22/2015 Pyelonephritis 06/25/2007 Overview: ICD10 Diagnosis Term Cider Maker Utility Type 2 diabetes mellitus with stage 3 chronic kidney d isease, without 06/25/2007 long-term current use of insulin Essential hypertension, benign 06/25/2007 Hypothyroidism 06/25/2007 Overview: ICD10 Diagnosis Term Cider Maker Utility documented as of this encounter [...] Telephone Encounter - Mabel Bone LVN - 09/04/2020 9:52 AM CSTI took call from Maritza with [facility] regarding this patient, Maritza says that she has been hospitalized twice since April 04, 2020 elephone Encounter - Mabel Bone LVN - 09/01/2020 3:59 PM ENROLLMENT CLERK Returned call to Maritza with [facility] regarding notice [...] - 08/31/2020 11:38 AM Woody a nurse caser in with [facility] is calling stating that the patient was in the hospital due to breaking femur, hip, knee and shoulder, Maritza is stating that she would like to touch base with a nurse to discuss further. documented in this encounter Plan of Treatment Date Type Specialty Care Team Description 09/11/2020 Office Visit Family Medicine Arthur Fong MD [address] [place] [address] [phone] Health Maintenance Due Date Last Done [...] of this encounter Implants Implanted Type Area Yard Hand Device Shelf Expiration Model / Identifier Date Serial / Lot Ivc Filter [place] Femoral [facility] #[id number] - S0 FILTER Groin Bar d 10/15/2020 [id number] / Implanted: Qty: 1 on 01/20/2018 by Karl Damon MD at [facility] 0 / [id number] documented as of this encounter Results Not on filedocumented in this encounter Insurance Payer Benefit Plan / Subscriber ID Effective Dates Phone Addre ss Type Group CIGNA CIGNA II [id number] 2003-Presen O/PPO/POS t [employer] [place] [employer] [place] [id number] 2019-Presen Medicare Adv PLUS PLUS t HMO CLASSIC/VALUE documented as of this encounter
--- OUTSIDE RECORDS SUMMARY | 2020-09-21 19:47 | XMS REPORT | Summary of Care ---
:1955 Author Organization [facility] - [facility] Address [address] [place] [address] Care Team Providers Name Role Phone MD Ajit Primary Care Provider MD Ajit Unavailable Reason for Visit Reason Comments Refill Request Encounter Details Date Type Department Care Team Description 09/01/2020 Refill [facility] Pediatric and Arthur Fong MD Refill Request Adult Primary Care- [address] [place] [address] [place] [address], [address] [place] [address] Allergies No Known Allergiesdocumented as of [...] without DAY tophus, unspecified cause, unspecified site ALPRAZOLAM 1 mg TAKE 1 TABLET 60 tablet 1 09/04/20 Active tabletIndications: BY MOUTH 3 20 Anxiety (THREE) TIMES DAILY NEEDED FOR OTHER (ANXIETY). ALPRAZolam 1 mg Take 1 tablet 60 tablet 5 12/27/19 Discontinued tabletIndications: by mouth 3 20 020 Anxiety (three) times daily as needed for Other (anxiety). documented as of this encounter (statuses as of 09/04/2020) Active Problems Problem Noted Date Staghorn calculus 11/16/2018 Kidney stone 10/13/2018 Overview: Added automatically from request for manda mancia [id number] Chronic gout without tophus, unspecified cause, unspec ified site 10/01/2018 Vaginal bleeding 05/05/2018 Postmenopausal vaginal bleeding 05/05/2018 Recurrent joint pain 05/05/2018 Dehydration 01/18/2018 Fistula 12/31/2017 Overview: Added automatically from request for manda mancia [id number] Hypotension 12/25/2017 Morbid obesity with body mass [...] 06/22/2015 Pyelonephritis 06/25/2007 Overview: ICD10 Diagnosis Term Patient Flow Coordinator Utility Type 2 diabetes mellitus with stage 3 chronic kidney d isease, without 06/25/2007 long-term current use of insulin Essential hypertension, benign 06/25/2007 Hypothyroidism 06/25/2007 Overview: ICD10 Diagnosis Term Patient Flow Coordinator Utility documented as of this encounter [...] Encounter - Mabel Bone LVN - 09/01/2020 5:45 PM CST 8 months ago (12/27/2019) ALPRAZolam 1 mg tablet Take 1 tablet by mouth 3 (three) times daily as needed for Other (anxiety). Dispense: 60 tablet Refills: 5 Start: 12/27/2019 [facility]/pharmacy #[id number] [place] - [address] [place] [address] AT [facility] Recent Visits Date Type Provider Dept 11/24/19 Office Visit Arthur Fong MD [facility] F[facility] Pob1 10/21/19 Office Visit Arthur Fong MD [facility] Med Pob1 09/20/19 Office Visit Arthur Fong MD [facility] Fam Med Pob1 08/23/19 Office Visit Arthur Fong MD [facility] Fam Med Pob1 05/10/19 Office Visit Arthur Fong MD [facility] Fam Med Pob1 03/11/19 Office Visit Arthur Fong MD [facility] C[facility] Fam Med Pob1 Showing recent visits within past 540 days with a meds authorizing provider and meeting all other requirements Future Appointments Date Type Provider Dept 09/11/20 Appointment Arthur Fong MD [facility] Fam Med Pob1 Showing future appointments within next 150 days with a meds authorizing provider and meeting all other requirements HAS APPOINTMENT 09/11/2020, HAS BEEN IN HOSPITAL AND REHAB FACILITIES DUE TO FRACTURES UCT TESTER FIBERGLASS documented in this encounter Plan of Treatment Date Type Specialty Care Team Description 09/11/2020 Office Visit Family Medicine Arthur Fong MD [address] [place] [address] [phone] Health Maintenance Due Date Last Done [...] of this encounter Implants Implanted Type Area Hazard Waste Handler Device Shelf Expiration Model / Identifier Date Serial / Lot Ivc Filter [place] Femoral Bard #[id number] - S0 FILTER Groin Bar d 10/15/2020 [id number] / Implanted: Qty: 1 on 01/20/2018 by Karl Damon MD at [facility] 0 / [id number] documented as of this encounter Results Not on filedocumented in this encounter Visit Diagnoses Diagnosis Anxiety Anxiety state, unspecified documented in this encounter Insurance Payer Benefit Plan / Subscriber ID Effective Dates Phone Addre ss Type Group CIGNA CIGNA II [id number] 2003-Presen O/PPO/POS t [place] [place] [employer] [place] [id number] 2019-Presen Medicare Adv PLUS PLUS t HMO CLASSIC/VALUE documented as of this encounter
--- OUTSIDE RECORDS SUMMARY | 2020-09-21 19:48 | XMS REPORT | Summary of Care ---
:1955 Author Organization [facility] - [facility] Address [address] [place] [address] Care Team Providers Name Role Phone MD Ajit Primary Care Provider MD Ajit Unavailable Reason for Visit Reason Comments Follow-up Encounter Details Date Type Department Care Team Description 08/31/2020 Telephone [facility] Family Medicine Arthur Stiles MD Follow-up - [address] [place] [address] [place] [address] [phone] Allergies No Known Allergiesdocumented as of this [...] Added automatically from request for manda blanche [id number] Chronic gout without tophus, unspecified cause, unspec ified site 10/01/2018 Vaginal bleeding 05/05/2018 Postmenopausal vaginal bleeding 05/05/2018 Recurrent joint pain 05/05/2018 Dehydration 01/18/2018 Fistula 12/31/2017 Overview: Added automatically from request for manda mancia [id number] Hypotension 12/25/2017 Morbid obesity with body mass [...] 06/25/2007 Overview: ICD10 Diagnosis Term Director Of Corporate Real Estate Utility Type 2 diabetes mellitus with stage 3 chronic kidney d isease, without 06/25/2007 long-term current use of insulin Essential hypertension, benign 06/25/2007 Hypothyroidism 06/25/2007 Overview: ICD10 Diagnosis Term Director Of Corporate Real Estate Utility documented as of this encounter (statuses [...] Encounter - Mabel Bone LVN - 09/04/2020 10:17 AM CSTIn March she developed Covid Pneumonia and was in hospital till 04/14/2020, she went to a SNF from 04/14/2020 to 05/09/2020, she went home and tripped over her oxygen tubing causing a fx hip and knee on Right and dislocated shoulder on the Left. She had surgery then went back to the SNF unit. Has since been discharged to home with little to no support in the home. She has Home Health through [facility] out of [place] but only a few times a week and she is in need of 24 hour care, but her insurance policy does not cover it and she cannot afford to pay OOP, she also does not qualify for Medica[employer] to income regulations. She is in need of a Home Health Aide to help bathe and the [facility] nurse case management is looking into getting from another RESIDENT BU[facility] as [facility]. ASKING TO BAUER VE PATIENT MAKE A [facility] F/U APPOINTMENT WITH DR MEEK AND AN ORDER TO [facility] FOR A STOCKROOM INVENTORY CLERK CONSULTATION FOR COMMUNITY ASSISTANCE NEEDED. ING MACHINE OPERATOR Telephone Encounter - Mabel Bone LVN - 09/04/2020 9:52 AM CSTI took call from Maritza with [facility] regarding this patient, Maritza says that she has been hospitalized twice since April 04, 2020 elephone Encounter - Mabel Bone LVN - 09/01/2020 3:59 PM WASHING MACHINE OPERATOR Returned call to Maritza with [facility] regarding [...] Marni Nicholas - 08/31/2020 11:38 AM Woody mcdonald nurse nurse case management with [facility] is calling stating that the patient was in the hospital due to breaking femur, hip, knee and shoulder, Maritza is stating that she would like to touch base with a nurse to discuss further. documented in this encounter Plan of Treatment Date Type Specialty Care Team Description 09/11/2020 Office Visit Family Medicine Arthur Meek MD [address] [place], [place] [phone] Health Maintenance Due Date [...] of this encounter Implants Implanted Type Area Agronomy Advisor Device Shelf Expiration Model / Identifier Date Serial / Lot Ivc Filter Janice Femoral Us Bard #[id number] - S0 FILTER Groin Bar d 10/15/2020 [id number] / Implanted: Qty: 1 on 01/20/2018 by Karl Damon MD at [facility] 0 / [id number] documented as of this encounter Results Not on filedocumented in this encounter Insurance Payer Benefit Plan / Subscriber ID Effective Dates Phone Addre ss Type Group CIGNA CIGNA II [id number] 2003-[facility]/PPO/[facility] VI [facility] VI [id number] 2019-Presen Medicare Adv PLUS PLUS t HMO CLASSIC/VALUE documented as of this encounter
--- OUTSIDE RECORDS SUMMARY | 2020-09-21 19:48 | XMS REPORT | Summary of Care ---
:1955 Author Organization [facility] Address [address] [place] [address] Care Team Providers Name Role Phone MD Ajit Primary Care Provider MD Ajit Unavailable Reason for Visit Reason Comments Orders Encounter Details Date Type Department Care Team Description 09/01/2020 Telephone [facility] Pediatric and Arthur Fong MD Orders Adult Primary Care- [address] [place] [address] [place] [address], [phone] [address] [place] [address] Allergies No Known Allergiesdocumented as of [...] unspecified bedtime as type needed for Insomnia. SULFAMETHOXAZOLE-TRIMETH TAKE 1 TABLET 20 tablet 0 [...] Added automatically from request for manda blanche [id number] Chronic gout without tophus, unspecified cause, unspec ified site 10/01/2018 Vaginal bleeding 05/05/2018 Postmenopausal vaginal bleeding 05/05/2018 Recurrent joint pain 05/05/2018 Dehydration 01/18/2018 Fistula 12/31/2017 Overview: Added automatically from request for manda blanche [id number] Hypotension 12/25/2017 Morbid obesity with body mass [...] 06/22/2015 Pyelonephritis 06/25/2007 Overview: ICD10 Diagnosis Term Payment Rep Utility Type 2 diabetes mellitus with stage 3 chronic kidney d isease, without 06/25/2007 long-term current use of insulin Essential hypertension, benign 06/25/2007 Hypothyroidism 06/25/2007 Overview: ICD10 Diagnosis Term Payment Rep Utility documented as of this encounter (statuses [...] Telephone Encounter - Arthur Fong MD - 09/04/2020 6:45 AM CSTWe will approve, see where we are with home health. elephone Encounter - Marni Nicholas - 09/01/2020 3:26 PM CSTPatient is calling wanting to know when her home health orders are going to be approved by the provide, and is stating that she have been in contact with [facility]. Patient is requesting acall back. elephone Encounter - Mabel Bone LVN - 09/01/2020 2:52 PM CSTI called Aiyana with [facility] left message to call me back to clarify what she is requesting. elephone Encounter - Carlyn Melton MA - 09/01/2020 2:21 PM CST09/01/20 2:21 PM Routing to correct clinic Carlyn Melton MA 09/01/2020 2:21 PM elephone Encounter - Bill Reich - 09/01/2020 1:48 PM CSTTanyasir with [facility] called stating current provider can no longer provide services. They will need new orders to provide home health services. Her phone # is [phone] Extn [phone] and . documented in this encounter Plan of Treatment Date Type Specialty Care Team Description 09/11/2020 Office Visit Family Medicine Arthur Fong MD [address] [place] [address] [phone] Health Maintenance Due Date Last Done [...] of this encounter Implants Implanted Type Area Analyst Competitive Intelligence Device Shelf Expiration Model / Identifier Date Serial / Lot Ivc Filter [place] Femoral Us Bard #[id number] - S0 FILTER Groin Bar d 10/15/2020 [id number] / Implanted: Qty: 1 on 01/20/2018 by Karl Damon MD at [facility] 0 / [id number] documented as of this encounter Results Not on filedocumented in this encounter Insurance Payer Benefit Plan / Subscriber ID Effective Dates Phone Addre ss Type Group CIGNA CIGNA II [id number] 2003-Presen O/PPO/POS t [employer] [place] [employer] [place] [id number] 2019-Presen Medicare Adv PLUS PLUS t HMO CLASSIC/VALUE documented as of this encounter
--- OUTSIDE RECORDS SUMMARY | 2020-09-21 19:48 | XMS REPORT | Summary of Care ---
:1955 Author Organization [facility] Address [address] [place] [address] Care Team Providers Name Role Phone MD Ajit Primary Care Provider MD Ajit Unavailable Reason for Visit Reason Comments Follow-up Encounter Details Date Type Department Care Team Description 08/31/2020 Telephone [facility] Family Medicine Arthur Stiles MD Follow-up - [address] [place] [address] [place] [address] [phone] Allergies No Known Allergiesdocumented as of this encounter (statuses as of 09/05/2020) Medications Medication Sig Dispensed Refills Start End [...] as of this encounter (statuses as of 09/05/2020) Active Problems Problem Noted Date Staghorn calculus 11/16/2018 Kidney stone 10/13/2018 Overview: Added automatically from request for manda blanche [id number] Chronic gout without tophus, unspecified cause, unspec ified site 10/01/2018 Vaginal bleeding 05/05/2018 Postmenopausal vaginal bleeding 05/05/2018 Recurrent joint pain 05/05/2018 Dehydration 01/18/2018 Fistula 12/31/2017 Overview: Added automatically from request for manda mancia [id number] Hypotension 12/25/2017 Morbid obesity with body mass [...] 06/22/2015 Pyelonephritis 06/25/2007 Overview: ICD10 Diagnosis Term Adobe Architect Utility Type 2 diabetes mellitus with stage 3 chronic kidney d isease, without 06/25/2007 long-term current use of insulin Essential hypertension, benign 06/25/2007 Hypothyroidism 06/25/2007 Overview: ICD10 Diagnosis Term Adobe Architect Utility documented as of this encounter (statuses as of 09/05/2020) Immunizations Name Administration Dates Next Due Influenza [...] Telephone Encounter - Mabel Bone LVN - 09/05/2020 9:47 AM CSTI called Maritza with [facility] and there was no answer left message for her to call back as now we need to know what home health agency is in network since I am told [facility] services were cancelled. elephone Encounter - Mabel Bone LVN - 09/05/2020 9:16 AM CSTI contacted [facility] to get authorization for an TRAM INSPECTOR visit to help get the patient some servicesthat she requires that Home Health cannot provide her. TRAM INSPECTOR code(S9127/) Dx codes are fx right knee, fx right hip, dislocated left shoulder. After 30 minutes to get this service approved I called [facility] to let them know of the new order and was told that theirservices have been cancelled because they could not provide a home health aide. They also do not have an TRAM INSPECTOR. elephone Encounter - Arthur Meek MD - 09/04/2020 10:30 AM CSTOK elephone Encounter - Mabel Bone LVN - 09/04/2020 [...] the home. She has Home Health through [facility] out of [place] but only a few times a week and she is in need of 24 hour care, but her insurance policy does not cover it and she cannot afford to pay OOP, she also does not qualify for Medicaiddue to income regulations. She is in need of a Home Health Aide to help bathe [facility] into getting [facility] another [facility]. ASKING TO HAVE PATIENT MAKE A POST [facility] F/U APPOINTMENT WITH DR MEEK AND AN ORDER TO [facility] FOR A TRAM INSPECTOR CONSULTATION FOR COMMUNITY ASSISTANCE NEEDED. elephone Encounter - Mabel Bone LVN - 09/04/2020 [...] - 08/31/2020 11:38 AM Woody a nurse case resolution specialist with [facility] is calling stating that the patient was in the hospital due to breaking femur, hip, knee and shoulder, Maritza is stating that she would like to touch base with a nurse to discuss further. documented in this encounter Plan of Treatment Date Type Specialty Care Team Description 09/12/2020 Telemedicine Visit Family Medicine Shahriar Meek MD [address] [address] [phone] Health Maintenance Due Date Last Done [...] of this encounter Implants Implanted Type Area Warp Tier Device Shelf Expiration Model / Identifier Date Serial / Lot Ivc Filter Mariposa Femoral [facility] #[id number] - S0 FILTER Groin Bar d 10/15/2020 [id number] / Implanted: Qty: 1 on 01/20/2018 by Karl Damon MD at [facility] 0 / [id number] documented as of this encounter Results Not on filedocumented in this encounter Insurance Payer Benefit Plan / Subscriber ID Effective Dates Phone Addre ss Type Group CIGNA CIGNA II [id number] [facility]POS [facility] [place] WELLCARE [place] [id number] 2019-Presen Medicare Adv PLUS PLUS t HMO CLASSIC/VALUE documented as of this encounter
--- OUTSIDE RECORDS SUMMARY | 2020-09-21 19:49 | XMS REPORT | Summary of Care ---
:1955 Author Organization [facility] Address [address] [place] [address] Care Team Providers Name Role Phone MD Ajit Primary Care Provider MD Ajit Unavailable Reason for Visit Reason Comments Follow-up Encounter Details Date Type Department Care Team Description 08/31/2020 Telephone [facility] Family Medicine Arthur Stiles MD Follow-up - [address] [place] [address] [place] [address] [phone] Allergies No Known Allergiesdocumented as of this [...] Added automatically from request for manda blanche [id number] Chronic gout without tophus, unspecified cause, unspec ified site 10/01/2018 Vaginal bleeding 05/05/2018 Postmenopausal vaginal bleeding 05/05/2018 Recurrent joint pain 05/05/2018 Dehydration 01/18/2018 Fistula 12/31/2017 Overview: Added automatically from request for manda mancia [id number] Hypotension 12/25/2017 Morbid obesity with body mass [...] 06/22/2015 Pyelonephritis 06/25/2007 Overview: ICD10 Diagnosis Term Counter Helper Utility Type 2 diabetes mellitus with stage 3 chronic kidney d isease, without 06/25/2007 long-term current use of insulin Essential hypertension, benign 06/25/2007 Hypothyroidism 06/25/2007 Overview: ICD10 Diagnosis Term Counter Helper Utility documented as of this encounter (statuses [...] Encounter - Mabel Bone LVN - 09/05/2020 10:48 AM CSTCall back from [facility] current home health agency is [facility]. fax [phone]. I faxed the BOILER MAKER order to [facility] and to [facility] as requested. elephone Encounter - Mabel Bone LVN - 09/05/2020 9:47 AM CSTI called Maritza with [facility] and there was no answer left message for her to call back as now we need to know what home health agency is in network since I am told [facility] services were cancelled. elephone Encounter - Mabel Bone LVN - 09/05/2020 9:16 AM CSTI contacted [facility] to get authorization for an BOILER MAKER visit to help get the patient some servicesthat she requires that Home Health cannot provide her. BOILER MAKER code(S9127/) Dx codes are fx right knee, fx right hip, dislocated left shoulder. After 30 minutes to get this service approved I called [facility] to let them know of the new order and was told that theirservices have been cancelled because they could not provide a home health aide. They also do not have an BOILER MAKER. elephone Encounter - Arthur Meek MD - [...] the home. She has Home Health through [facility] out of [place] but only a few times a week and she is in need of 24 hour care, but her insurance policy does not cover it and she cannot afford to pay OOP, she also does not qualify for Medicaiddue to income regulations. She is in need of a Home Health Aide to help bathe and the [facility] returned case inspector is looking into getting from another [facility] as [facility] does not provide that service. ASKING TO HAVE PATIENT MAKE A POST [facility] F/U APPOINTMENT WITH DR MEEK AND AN ORDER TO [facility] FOR A BOILER MAKER CONSULTATION FOR COMMUNITY ASSISTANCE NEEDED. elephone Encounter [...] - 08/31/2020 11:38 AM Woody mcdonald nurse returned case inspector with [facility] is calling stating that the patient was in the hospital due to breaking femur, hip, knee and shoulder, Maritza is stating that she would like to touch base with a nurse to discuss further. documented in this encounter Plan of Treatment Date Type Specialty Care Team Description 09/12/2020 Telemedicine Visit Family Medicine Shahriar Meek MD [address] [place] [address] [phone] Health Maintenance Due Date Last Done [...] of this encounter Implants Implanted Type Area Mine Analyst Device Shelf Expiration Model / Identifier Date Serial / Lot Ivc Filter Mayes Femoral [facility] #[id number] - S0 FILTER Groin Bar d 10/15/2020 [id number] / Implanted: Qty: 1 on 01/20/2018 by Karl Damon MD at [facility] 0 / [id number] documented as of this encounter Results Not on filedocumented in this encounter Insurance Payer Benefit Plan / Subscriber ID Effective Dates Phone Addre ss Type Group CIGNA CIGNA II [id number] 2003-[facility] O/PPO/POS t [place] WE[place]ARE [place] [id number] 2019-Presen Medicare Adv PLUS PLUS t HMO CLASSIC/VALUE documented as of this encounter
--- OUTSIDE RECORDS SUMMARY | 2020-09-21 19:49 | XMS REPORT | Summary of Care ---
:1955 Author Organization [facility] Address [address] [place] [address] Care Team Providers Name Role Phone MD Ajit Primary Care Provider MD Ajit Unavailable Reason for Visit Reason Comments Orders Encounter Details Date Type Department Care Team Description 09/05/2020 Telephone [facility] Family Medicine Arthur Stiles MD Orders - [address] [place] [facility] [place] [address] [place] [address] [phone] Allergies No Known Allergiesdocumented as of this encounter (statuses as of 09/05/2020) Medications Medication Sig Dispensed Refills Start Date [...] mg TAKE 1 TABLET 60 tablet 1 09/04/2020 Active tabletIndications: BY MOUTH 3 Anxiety (THREE) TIMES DAILY NEEDED FOR OTHER (ANXIETY). documented as of this encounter (statuses as of 09/05/2020) Active Problems Problem Noted Date Staghorn calculus 11/16/2018 Kidney stone 10/13/2018 Overview: Added automatically from request for manda mancia [id number] Chronic gout without tophus, unspecified cause, unspec ified site 10/01/2018 Vaginal bleeding 05/05/2018 Postmenopausal vaginal bleeding 05/05/2018 Recurrent joint pain 05/05/2018 Dehydration 01/18/2018 Fistula 12/31/2017 Overview: Added automatically from request for manda mancia [id number] Hypotension 12/25/2017 Morbid obesity with body mass [...] 06/22/2015 Pyelonephritis 06/25/2007 Overview: ICD10 Diagnosis Term Manager Commission Utility Type 2 diabetes mellitus with stage 3 chronic kidney d isease, without 06/25/2007 long-term current use of insulin Essential hypertension, benign 06/25/2007 Hypothyroidism 06/25/2007 Overview: ICD10 Diagnosis Term Manager Commission Utility documented as of this encounter (statuses [...] Encounter - Mabel Bone LVN - 09/05/2020 11:00 AM CSTThis has already been handled SPORTATION MANAGER Telephone Encounter - Sachin Hanna - 09/05/2020 10:52 AM CSTLiz with J[facility] is returning call to Mabel regarding home health concerns.Please advise SPORTATION MANAGER documented in this encounter Plan of Treatment Date Type Specialty Care Team Description 09/12/2020 Telemedicine Visit Family Medicine Shahriar Fong MD [address] [address] [phone] Health Maintenance Due Date Last Done [...] of this encounter Implants Implanted Type Area General Ophthalmologist Device Shelf Expiration Model / Identifier Date Serial / Lot Ivc Filter Janice Femoral Us Bard #[id number] - S0 FILTER Groin Bar d 10/15/2020 [id number] / Implanted: Qty: 1 on 01/20/2018 by Karl Damon MD at [facility] 0 / [id number] documented as of this encounter Results Not on filedocumented in this encounter Insurance Payer Benefit Plan / Subscriber ID Effective Dates Phone Addre ss Type Group CIGNA CIGNA II [id number] 2003-[facility] [id number] 2019-Presen Medicare Adv PLUS PLUS t HMO CLASSIC/VALUE documented as of this encounter
--- OUTSIDE RECORDS SUMMARY | 2020-09-21 19:50 | XMS REPORT | Summary of Care ---
:1955 Author Organization [facility] Address [address] [place] [address] Care Team Providers Name Role Phone MD Ajit Primary Care Provider MD Ajit Unavailable Reason for Visit Reason Comments Orders Encounter Details Date Type Department Care Team Description 09/05/2020 Telephone [facility] Family Medicine Arthur Stiles MD Orders - [address] [place]ammell [facility] [place] [place] [address] [place] [address] [phone] Allergies No Known Allergiesdocumented as of this encounter (statuses as of 09/06/2020) Medications Medication Sig Dispensed Refills Start Date [...] as of this encounter (statuses as of 09/06/2020) Active Problems Problem Noted Date Staghorn calculus 11/16/2018 Kidney stone 10/13/2018 Overview: Added automatically from request for manda mancia [id number] Chronic gout without tophus, unspecified cause, unspec ified site 10/01/2018 Vaginal bleeding 05/05/2018 Postmenopausal vaginal bleeding 05/05/2018 Recurrent joint pain 05/05/2018 Dehydration 01/18/2018 Fistula 12/31/2017 Overview: Added automatically from request for manda mancia [id number] Hypotension 12/25/2017 Morbid obesity with body mass [...] 06/22/2015 Pyelonephritis 06/25/2007 Overview: ICD10 Diagnosis Term Computer Systems Administrator Utility Type 2 diabetes mellitus with stage 3 chronic kidney d isease, without 06/25/2007 long-term current use of insulin Essential hypertension, benign 06/25/2007 Hypothyroidism 06/25/2007 Overview: ICD10 Diagnosis Term Computer Systems Administrator Utility documented as of this encounter (statuses as of 09/06/2020) Immunizations Name Administration Dates Next Due Influenza [...] 11:00 AM CSTThis has already been handled GER OCCUPATIONAL Telephone Encounter - Sachin Hanna - 09/05/2020 10:52 AM CSTLiz with J[facility] is returning call to Mabel regarding home health concerns.Please advise GER OCCUPATIONAL documented in this encounter Plan of Treatment Date Type Specialty Care Team Description 09/12/2020 Telemedicine Visit Family Medicine Shahriar Fong MD [address] [address] [phone] Health Maintenance Due Date Last Done [...] of this encounter Implants Implanted Type Area Linux Kernel Engineer Device Shelf Expiration Model / Identifier Date Serial / Lot Ivc Filter Janice Femoral Us Bard #[id number] - S0 FILTER Groin Bar d 10/15/2020 [id number] / Implanted: Qty: 1 on 01/20/2018 by Karl Damon MD at [facility] 0 / [id number] documented as of this encounter Results Not on filedocumented in this encounter Insurance Payer Benefit Plan / Subscriber ID Effective Dates Phone Addre ss Type Group CIGNA CIGNA II [id number] 2003-[facility] [id number] 2019-Presen Medicare Adv PLUS PLUS t HMO CLASSIC/VALUE documented as of this encounter
--- OUTSIDE RECORDS SUMMARY | 2020-09-21 19:50 | XMS REPORT | Summary of Care ---
:1955 Author Organization [facility] Address [address] [place] [address] Care Team Providers Name Role Phone MD Ajit Primary Care Provider MD Ajit Unavailable Reason for Visit Reason Comments Notification Encounter Details Date Type Department Care Team Description 09/05/2020 Telephone [facility] Family Medicine Arthur Stiles MD Notification - [address] [place] [address] [place] [address] [phone] Allergies No Known Allergiesdocumented as of this [...] Added automatically from request for manda mancia [id number] Chronic gout without tophus, unspecified cause, unspec ified site 10/01/2018 Vaginal bleeding 05/05/2018 Postmenopausal vaginal bleeding 05/05/2018 Recurrent joint pain 05/05/2018 Dehydration 01/18/2018 Fistula 12/31/2017 Overview: Added automatically from request for manda mancia [id number] Hypotension 12/25/2017 Morbid obesity with body mass [...] 06/22/2015 Pyelonephritis 06/25/2007 Overview: ICD10 Diagnosis Term Batch Records Clerk Utility Type 2 diabetes mellitus with stage 3 chronic kidney d isease, without 06/25/2007 long-term current use of insulin Essential hypertension, benign 06/25/2007 Hypothyroidism 06/25/2007 Overview: ICD10 Diagnosis Term Batch Records Clerk Utility documented as of this encounter (statuses [...] encounter Miscellaneous Notes Telephone Encounter - Mabel Boen LVN - 09/05/2020 1:01 PM CSTPatient reports she just received the hospital bed 2 weeks ago, I advised her she will need to call the company that delivered the bed and request a bariatric bed. She verbalized understanding elephone Encounter - Savana Reveles - 09/05/2020 12:39 PM CSTPt is requesting a different hospital bed. documented in this encounter Plan of Treatment Date Type Specialty Care Team Description 09/12/2020 Telemedicine Visit Family Medicine Shahriar Fong MD [address] [place] [phone] Health Maintenance Due Date Last Done [...] of this encounter Implants Implanted Type Area Environmental Services Tech Device Shelf Expiration Model / Identifier Date Serial / Lot Ivc Filter Catron Femoral Bard #[id number] - S0 FILTER Groin Bar d 10/15/2020 [id number] / Implanted: Qty: 1 on 01/20/2018 by Karl Damon MD at [facility] 0 / [id number] documented as of this encounter Results Not on filedocumented in this encounter Insurance Payer Benefit Plan / Subscriber ID Effective Dates Phone Addre ss Type Group CIGNA CIGNA II [id number] [facility] t WELLCARE [place] [id number] 2019-Presen Medicare Adv PLUS PLUS t HMO CLASSIC/VALUE documented as of this encounter
--- OUTSIDE RECORDS SUMMARY | 2020-09-21 19:50 | XMS REPORT | Summary of Care ---
:1955 Author Organization [facility] Address [address] [place] [address] Care Team Providers Name Role Phone MD Ajit Primary Care Provider MD Ajit Unavailable Reason for Visit Reason Comments Orders Encounter Details Date Type Department Care Team Description 09/06/2020 Telephone [facility] Family Medicine Arthur Stiles MD Orders - [address] [place] [address] [place] [address] [phone] Allergies No Known Allergiesdocumented as of this [...] 10/13/2018 Overview: Added automatically from request for amnda mancia [id number] Chronic gout without tophus, unspecified cause, unspec ified site 10/01/2018 Vaginal bleeding 05/05/2018 Postmenopausal vaginal bleeding 05/05/2018 Recurrent joint pain 05/05/2018 Dehydration 01/18/2018 Fistula 12/31/2017 Overview: Added automatically from request for manda mancia [id number] Hypotension 12/25/2017 Morbid obesity with body mass [...] 06/22/2015 Pyelonephritis 06/25/2007 Overview: ICD10 Diagnosis Term Lacquer Maker Utility Type 2 diabetes mellitus with stage 3 chronic kidney d isease, without 06/25/2007 long-term current use of insulin Essential hypertension, benign 06/25/2007 Hypothyroidism 06/25/2007 Overview: ICD10 Diagnosis Term Lacquer Maker Utility documented as of this encounter [...] Telephone Encounter - Mabel Bone LVN - 09/06/2020 1:44 PM CSTOrder for Bariatric Heavy Duty hospital bed has been faxed to [facility] per requests. elephone Encounter - Amisha Puhg - 09/06/2020 11:38 AM CSTLiz with JG is stating to send order to [facility]. FAX [phone] / PH [phone] APRIA PH [phone] signed by Amisha Pugh at 09/06/2020 11:41 AM CSTTelephone Encounter - Mabel Bone LVN - 09/06/2020 9:02 AM CSTI called Maritza with [facility] to determine what must be done in order to have her small hospital bed upgraded to a heavy duty Bariatric bed as it is too narrow for her. No answer left message for Maritza to callme back. documented in this encounter Plan of Treatment Date Type Specialty Care Team Description 09/12/2020 Telemedicine Visit Family Medicine Shahriar Fong MD [address] [phone] Health Maintenance Due Date Last Done [...] of this encounter Implants Implanted Type Area Toby Maker Device Shelf Expiration Model / Identifier Date Serial / Lot Ivc Filter Millard Femoral Us Bard #[id number] - S0 FILTER Groin Bar d 10/15/2020 [id number] / Implanted: Qty: 1 on 01/20/2018 by Karl Damon MD at [facility] 0 / [id number] documented as of this encounter Results Not on filedocumented in this encounter Insurance Payer Benefit Plan / Subscriber ID Effective Dates Phone Addre ss Type Group CIGNA CIGNA II [id number] 2003-[facility] O/PPO/POS t [place]ARE [place] WELLCARE [place] [id number] 2019-Pres[place] Medicare Adv PLUS PLUS t HMO CLASSIC/VALUE documented as of this encounter
--- OUTSIDE RECORDS SUMMARY | 2020-09-21 19:51 | XMS REPORT | Summary of Care ---
:1955 Author Organization [facility] Address [address] [place] [address] Care Team Providers Name Role Phone MD Ajit Primary Care Provider MD Ajit Unavailable Reason for Visit Reason Comments Home Health Encounter Details Date Type Department Care Team Description 09/06/2020 Patient Outreach [facility] Pediatric Anali Powers, [facility] Health and Adult Primary Care- [address] [place] [address] Drive, [address] [place] [address] [phone] Allergies No Known Allergiesdocumented as of this [...] Added automatically from request for manda mancia [id number] Chronic gout without tophus, unspecified cause, unspec ified site 10/01/2018 Vaginal bleeding 05/05/2018 Postmenopausal vaginal bleeding 05/05/2018 Recurrent joint pain 05/05/2018 Dehydration 01/18/2018 Fistula 12/31/2017 Overview: Added automatically from request for manda mancia [id number] Hypotension 12/25/2017 Morbid obesity with body mass [...] 06/22/2015 Pyelonephritis 06/25/2007 Overview: ICD10 Diagnosis Term Dip Filler Utility Type 2 diabetes mellitus with stage 3 chronic kidney d isease, without 06/25/2007 long-term current use of insulin Essential hypertension, benign 06/25/2007 Hypothyroidism 06/25/2007 Overview: ICD10 Diagnosis Term Dip Filler Utility documented as of this encounter (statuses [...] on filedocumented in this encounter Progress Notes Sherley Powers LMSW - 09/06/2020 2:53 PM CSTSocial Work Note Program Advocate (PARVIN) received consult from [facility]P RN (Concepcion Ramachandran) regarding Home Health (HH). SW attempted to contact patient (Rosio wilburn; [phone]) by phone regarding order/ agency CHOICE; left message. SW will continue attempts to contact; send referral upon receipt of MD order (OV 09/12/20; need F2F)and agency CHOICE. Sherley Powers LMSW, [facility] Program Advocate- Manager Hair Management [facility] Vicky Chua ,[facility] Pager: [phone] Em: [email or web address] documented in this encounter Plan of Treatment Date Type Specialty Care Team Description 09/12/2020 Telemedicine Visit Family Medicine Shahriar Fong MD [address] [address] 15-4112 Health Maintenance Due Date Last Done [...] of this encounter Implants Implanted Type Area Pelt Dropper Device Shelf Expiration Model / Identifier Date Serial / Lot Ivc Filter Janice Femoral Bard #[id number] - S0 FILTER Groin Bar d 10/15/2020 [id number] / Implanted: Qty: 1 on 01/20/2018 by Karl Damon MD at [facility] 0 / [id number] documented as of this encounter Results Not on filedocumented in this encounter Insurance Payer Benefit Plan / Subscriber ID Effective Dates Phone Addre ss Type Group CIGNA CIGNA II [id number] 2003-[facility] O/PPO/POS t [place]CARE [place] WELLCARE [place] [id number] 2019-Presen Medicare Adv PLUS PLUS t HMO CLASSIC/VALUE documented as of this encounter
--- OUTSIDE RECORDS SUMMARY | 2020-09-21 19:51 | XMS REPORT | Summary of Care ---
:1955 Author Organization [facility] Address [address] [place] [address] Care Team Providers Name Role Phone MD Ajit Primary Care Provider MD Ajit Unavailable Reason for Visit Reason Comments Orders Encounter Details Date Type Department Care Team Description 09/05/2020 Telephone [facility] Family Medicine Arthur Stiles MD Orders - [address] trammell [facility] [place] [address] [place] [address] [phone] Allergies No Known Allergiesdocumented as of this [...] Added automatically from request for manda mancia [id number] Chronic gout without tophus, unspecified cause, unspec ified site 10/01/2018 Vaginal bleeding 05/05/2018 Postmenopausal vaginal bleeding 05/05/2018 Recurrent joint pain 05/05/2018 Dehydration 01/18/2018 Fistula 12/31/2017 Overview: Added automatically from request for manda mancia [id number] Hypotension 12/25/2017 Morbid obesity with body mass [...] 06/22/2015 Pyelonephritis 06/25/2007 Overview: ICD10 Diagnosis Term School Psychometrist Utility Type 2 diabetes mellitus with stage 3 chronic kidney d isease, without 06/25/2007 long-term current use of insulin Essential hypertension, benign 06/25/2007 Hypothyroidism 06/25/2007 Overview: ICD10 Diagnosis Term School Psychometrist Utility documented as of this encounter (statuses [...] Encounter - Mabel Bone LVN - 09/06/2020 1:53 PM CSTOrder for bariatric heavy duty hospital bed has been faxed to [employer] [facility] [employer]. elephone Encounter - Marni Nicholas - 09/06/2020 1:15 PM CSTTanya from [employer] is calling stating that a fax was suppose to be sent regarding the patients requesting a bigger hospital sergio. Tisha is wanting to know if the patients shakir and weight can beadded to the information. elephone Encounter - Mabel Bone LVN - 09/06/2020 8:42 AM CSTI called the [facility] patients Line at [phone], Spoke with Johnna she will check with insurance to see what the patient qualifies for. I was advised that the current be she has is an EL260 which handles weight up to 450lbs and to get approved for a Heavy Duty Bariatric bed she will have to call her insurance to see if they will approve the change in bed to the EL303 Heavy Duty Bed. elephone Encounter - Mabel Bone LVN - 09/06/2020 8:37 AM CSTI spoke with the patient who reports [facility] is the rehab facility she was in. I advised her that they are not the company that provided her hospital bed they only placed order for it. She said the providing company is [employer]. I advised her that I will try to contact [facility] myself to see if they can locate her file and give order to picker current hospital bed as it is too small she requires a bariatric hospital bed instead. Pt verbalized understanding. elephone Encounter - Marni Nicholas - 09/05/2020 3:54 PM CSTPatient is calling stating that she called [facility] requesting a bariatric bed, and was told that he provider will have to send a new order for the bariatric bed. Patient is requesting a call back. documented in this encounter Plan of Treatment Date Type Specialty Care Team Description 09/12/2020 Telemedicine Visit Family Medicine Shahriar Fong MD [address] [place] [address] [phone] Health Maintenance Due Date Last Done [...] of this encounter Implants Implanted Type Area Bender Machine Device Shelf Expiration Model / Identifier Date Serial / Lot Ivc Filter Clinch Femoral Bard #[id number] - S0 FILTER Groin Bar d 10/15/2020 [id number] / Implanted: Qty: 1 on 01/20/2018 by Karl Damon MD at [facility] 0 / [id number] documented as of this encounter Results Not on filedocumented in this encounter Visit Diagnoses Diagnosis Morbid obesity with body mass index of 4 0.0-49.9 - Primary Closed fracture of hip, unspecified late rality, initial encounter History of fractured kneecap Personal history of traumatic fracture Dislocation of shoulder region, unspecif ied laterality, initial encounter documented in this encounter Insurance Payer Benefit Plan / Subscriber ID Effective Dates Phone Addre ss Type Group CIGNA CIGNA II [id number] 2003-[facility] O/PPO/POS t [place]ARE [place] WELL[place]ARE [place] [id number] 2019-Presen Medicare Adv PLUS PLUS t HMO CLASSIC/VALUE documented as of this encounter
--- OUTSIDE RECORDS SUMMARY | 2020-09-21 19:51 | XMS REPORT | Summary of Care ---
:1955 Author Organization [address] [address] Care Team Providers Name Role Phone MD Ajti Primary Care Provider MD Ajit Unavailable Yashira Ramachandran concierge Reason for Visit Reason Comments Hospital F/U Assessment Follow-up Home Health Encounter Details Date Type Department Care Team Description 09/06/2020 Patient Outreach [facility] Ana Laura Ramachandran, MARK [facility] F/U; [address] Assessment ; [facility] Follow-up; [place] [address] [address] [address] [facility] [phone] Allergies No Known Allergiesdocumented as of this [...] Added automatically from request for manda mancia [id number] Chronic gout without tophus, unspecified cause, unspec ified site 10/01/2018 Vaginal bleeding 05/05/2018 Postmenopausal vaginal bleeding 05/05/2018 Recurrent joint pain 05/05/2018 Dehydration 01/18/2018 Fistula 12/31/2017 Overview: Added automatically from request for manda mancia [id number] Hypotension 12/25/2017 Morbid obesity with body mass [...] 06/22/2015 Pyelonephritis 06/25/2007 Overview: ICD10 Diagnosis Term Welder Fitter Utility Type 2 diabetes mellitus with stage 3 chronic kidney d isease, without 06/25/2007 long-term current use of insulin Essential hypertension, benign 06/25/2007 Hypothyroidism 06/25/2007 Overview: ICD10 Diagnosis Term Welder Fitter Utility documented as of this encounter (statuses [...] on filedocumented in this encounter Progress Notes Ana Laura Ramachandran RN - 09/06/2020 2:58 PM CSTSummary: CHP needs assessment CHP was asked to f/u with the patient since her discharge from [facility]. The patient stated [facility] was not satisfied with her Rehab progression and would no longer cover any more days. The patient is at home and has a family member who is a WASHER AND CRUSHER TENDER, helping her out daily. The patient is over income from Medicaid, receiving 1140/month for SSI. The patient's spouse continues to work as well. The patient would most likely benefit from some home PT. The patient stated she is unable to walk onher own and she felt she was improving in the facility. The patient has equipment in her residence (WC, prachi lift, etc) CM followed up with Sherley Powers LMSW to ask her for her assistance with sending PT orders to an "in network" provider of patient's choice, once Dr. Fong places order into [facility]. CM will remain on case to follow up with the patient to ensure she remains safe in her transition back into the home. PIO Araujo, RN, [facility] Outpatient Information Clerk CashierRougher Merchant MillDorothea Dix Hospital O: [phone] M: [phone] documented in this encounter Plan of Treatment Date Type Specialty Care Team Description 09/12/2020 Telemedicine Visit Family Medicine Shahriar Fong MD [address] [place] [phone] Health Maintenance Due Date Last [...] of this encounter Implants Implanted Type Area Actuary Manager Device Shelf Expiration Model / Identifier Date Serial / Lot Ivc Filter Burt Femoral Us Bard #[id number] - S0 FILTER Groin Bar d 10/15/2020 [id number] / Implanted: Qty: 1 on 01/20/2018 by Karl Damon MD at [facility] 0 / [id number] documented as of this encounter Results Not on filedocumented in this encounter Insurance Payer Benefit Plan / Subscriber ID Effective Dates Phone Addre ss Type Group CIGNA CIGNA II [id number] 2003-[place] O/PPO/POS t [place]ARE [place] WE[place]CARE [place] [id number] 2019-Presen Medicare Adv PLUS PLUS t HMO CLASSIC/VALUE documented as of this encounter
--- OUTSIDE RECORDS SUMMARY | 2020-09-21 19:52 | XMS REPORT | Summary of Care ---
:1955 Author Organization [address] [address] Care Team Providers Name Role Phone MD Ajit Primary Care Provider MD Ajit Unavailable Yashira Ramachandran pile fabric knitter Reason for Visit Reason Comments Assessment Follow-up schedule a Encounter Details Date Type Department Care Team Description 09/11/2020 Patient Outreach [facility] Ana Laura Ramachandran, software asset management analyst; [address] Follow-up (schedule [facility] a ) [place], [place] [address] Allergies No Known Allergiesdocumented as of this encounter (statuses as of 09/11/2020) Medications Medication Sig Dispensed Refills Start End [...] daily. Kidney stone cephALEXin 500 mg 0 10/08/20 Ac tive capsule 19 clindamycin 300 mg [...] back pain laterality, unspecified whether sciatica present METOPROLOL SUCCINATE XL TAKE 1 TABLET 90 [...] (THREE) TIMES DAILY NEEDED FOR OTHER (ANXIETY). VALSARTAN-HYDROCHLOROTH TAKE 1 TABLET 90 tablet 0 04/25/20 Discontinued IAZIDE 320-25 mg per BY MOUTH EVERY 20 020 tabletIndications: DAY Essential hypertension, benign documented as of this encounter (statuses as of 09/11/2020) Active Problems Problem Noted Date Staghorn calculus 11/16/2018 Kidney stone 10/13/2018 Overview: Added automatically from request for manda mancia [id number] Chronic gout without tophus, unspecified cause, unspec ified site 10/01/2018 Vaginal bleeding 05/05/2018 Postmenopausal vaginal bleeding 05/05/2018 Recurrent joint pain 05/05/2018 Dehydration 01/18/2018 Fistula 12/31/2017 Overview: Added automatically from request for manda mancia [id number] Hypotension 12/25/2017 Morbid obesity with body mass [...] 06/22/2015 Pyelonephritis 06/25/2007 Overview: ICD10 Diagnosis Term Pellet Post Inspector Utility Type 2 diabetes mellitus with stage 3 chronic kidney d isease, without 06/25/2007 long-term current use of insulin Essential hypertension, benign 06/25/2007 Hypothyroidism 06/25/2007 Overview: ICD10 Diagnosis Term Pellet Post Inspector Utility documented as of this encounter (statuses as of 09/11/2020) Immunizations Name Administration Dates Next Due Influenza [...] Progress Notes Ana Laura Ramachandran RN - 09/11/2020 10:07 AM CSTSummary: HV scheduled CHP CM called the patient back and she agreed to have a HV for tomorrow morning, [phone] on 09/12/20. CM will update Dyan BOSE after appointment. PIO Araujo, RN, [facility] Outpatient Shell AssemblerPrincipal Cloud ArchitectBlue Ridge Regional Hospital O: [phone] M: [phone] iAna Laura madrigal RN - 09/11/2020 10:07 AM CSTSummary: CHP F/u request from [facility]. CHP CM left requesting to schedule a HV with the patient this week, preferably tomorrow, 09/12/20. CM will call the patient again this afternoon. PIO Araujo, RN, [facility] Outpatient Shell AssemblerPrincipal Cloud ArchitectBlue Ridge Regional Hospital O: [phone] M: [phone] documented in this encounter Plan of Treatment Date Type Specialty Care Team Description 09/12/2020 Patient Outreach Case Management Ana Laura Ramachandran RN [address] [place] [address] 09/12/2020 Telemedicine Visit Family Medicine Shahriar Fong MD [address] [place] [address] [phone] Health Maintenance Due Date Last Done [...] of this encounter Implants Implanted Type Area Bisque Finisher Device Shelf Expiration Model / Identifier Date Serial / Lot Ivc Filter Janice Femoral Bard #[id number] - S0 FILTER Groin Bar d 10/15/2020 [id number] / Implanted: Qty: 1 on 01/20/2018 by Karl Damon MD at [facility] 0 / [id number] documented as of this encounter Results Not on filedocumented in this encounter Insurance Payer Benefit Plan / Subscriber ID Effective Dates Phone Addre ss Type Group CIGNA CIGNA II [id number] 2003-Presen O/PPO/POS t WELLCARE [place] WELLCARE [place] [id number] 2019-Presen Medicare Adv PLUS PLUS t HMO CLASSIC/VALUE documented as of this encounter
--- OUTSIDE RECORDS SUMMARY | 2020-09-21 19:52 | XMS REPORT | Summary of Care ---
:1955 Author Organization [facility] Address [address] [place] [address] Care Team Providers Name Role Phone MD Ajit Primary Care Provider MD Ajit Unavailable Yashira Ramachandran RNrefrigeration houseman Reason for Visit Reason Comments Refill Request Encounter Details Date Type Department Care Team Description 09/11/2020 Refill [facility] Family Medicine Arthur Stiles MD Refill Request - [address] [place] [address] [place] [address] [phone] Allergies No Known Allergiesdocumented as of this [...] VALSARTAN-HYDROCHLOROTH TAKE 1 TABLET 90 tablet 0 09/11/20 Active IAZIDE 320-25 mg per BY MOUTH EVERY 20 tabletIndications: DAY Essential hypertension, benign VALSARTAN-HYDROCHLOROTH TAKE 1 TABLET 90 tablet 0 04/25/20 Discontinued IAZIDE 320-25 mg per BY MOUTH EVERY 20 020 tabletIndications: DAY Essential hypertension, benign documented as of this encounter (statuses as of 09/11/2020) Active Problems Problem Noted Date Staghorn calculus 11/16/2018 Kidney stone 10/13/2018 Overview: Added automatically from request for manda mancia [id number] Chronic gout without tophus, unspecified cause, unspec ified site 10/01/2018 Vaginal bleeding 05/05/2018 Postmenopausal vaginal bleeding 05/05/2018 Recurrent joint pain 05/05/2018 Dehydration 01/18/2018 Fistula 12/31/2017 Overview: Added automatically from request for manda mancia [id number] Hypotension 12/25/2017 Morbid obesity with body mass [...] 06/22/2015 Pyelonephritis 06/25/2007 Overview: ICD10 Diagnosis Term Spectrographic Analyst Utility Type 2 diabetes mellitus with stage 3 chronic kidney d isease, without 06/25/2007 long-term current use of insulin Essential hypertension, benign 06/25/2007 Hypothyroidism 06/25/2007 Overview: ICD10 Diagnosis Term Spectrographic Analyst Utility documented as of this encounter [...] Telephone Encounter - Stormy Aguirre LVN - 09/11/2020 9:51 AM CST hydroCHLOROthiazide 12.5 mg capsule 90 capsule 0 06/16/2019 No Sig: TAKE ONE CAPSULE BY MOUTH ONCE A DAY Sent to pharmacy as: hydroCHLOROthiazide 12.5 mg capsule VALSARTAN-HYDROCHLOROTHIAZIDE 320-25 mg per tablet 90 tablet 0 04/25/2020 No Sig: TAKE 1 TABLET BY MOUTH EVERY DAY Patient requesting refill of second medication, however, I see both as active medications on her list. Please review, DC one and fill appropriate script. Pharmacy: [facility] Last Office Visit: telemed 12/27/2019 Next Office Visit: telemed 09/12/2020 OR PODIATRIC MEDICINE documented in this encounter Plan of Treatment Date Type Specialty Care Team Description 09/12/2020 Telemedicine Visit Family Medicine Shahriar Fong MD [address] [address] [phone] Health Maintenance Due Date Last Done [...] of this encounter Implants Implanted Type Area Satellite Manager Device Shelf Expiration Model / Identifier Date Serial / Lot Ivc Filter [place] Femoral Us Bard #[id number] - S0 FILTER Groin Bar d 10/15/2020 [id number] / Implanted: Qty: 1 on 01/20/2018 by Karl Damon MD at [facility] 0 / [id number] documented as of this encounter Results Not on filedocumented in this encounter Visit Diagnoses Diagnosis Essential hypertension, benign documented in this encounter Insurance Payer Benefit Plan / Subscriber ID Effective Dates Phone Addre ss Type Group CIGNA CIGNA II [id number] [facility] WELLCARE [place] WELLCARE VI [id number] 2019-Presen Medicare Adv PLUS PLUS t HMO CLASSIC/VALUE documented as of this encounter
--- OUTSIDE RECORDS SUMMARY | 2020-09-21 19:52 | XMS REPORT | Summary of Care ---
:1955 Author Organization [address] [address] Care Team Providers Name Role Phone MD Ajit Primary Care Provider MD Ajit Unavailable Yashira Ramachandran vending attendant Reason for Visit Reason Comments Assessment Follow-up schedule a Encounter Details Date Type Department Care Team Description 09/11/2020 Patient Outreach [facility] Ana Laura Ramachandran, six sigma black belt engineer; [address] Follow-up (schedule [facility] a ) [place], [place] [address] Allergies No Known Allergiesdocumented as of this encounter (statuses as of 09/11/2020) Medications Medication Sig Dispensed Refills Start Date [...] Added automatically from request for manda mancia [id number] Chronic gout without tophus, unspecified cause, unspec ified site 10/01/2018 Vaginal bleeding 05/05/2018 Postmenopausal vaginal bleeding 05/05/2018 Recurrent joint pain 05/05/2018 Dehydration 01/18/2018 Fistula 12/31/2017 Overview: Added automatically from request for manda mancia [id number] Hypotension 12/25/2017 Morbid obesity with body mass [...] 06/22/2015 Pyelonephritis 06/25/2007 Overview: ICD10 Diagnosis Term Nursing Instructor Utility Type 2 diabetes mellitus with stage 3 chronic kidney d isease, without 06/25/2007 long-term current use of insulin Essential hypertension, benign 06/25/2007 Hypothyroidism 06/25/2007 Overview: ICD10 Diagnosis Term Nursing Instructor Utility documented as of this encounter (statuses [...] Ramachandran RN - 09/11/2020 10:07 AM CSTSummary: [facility]P F/u request from [facility]. P CM left requesting to schedule a HV with the patient this week, preferably tomorrow, 09/12/20. ARIANA will call the patient again this afternoon. PIO Araujo, RN, [facility] Outpatient Project OfficerManufacturing Technology AnalystAtrium Health Waxhaw O: [phone] M: [phone] documented in this encounter Plan of Treatment Date Type Specialty Care Team Description 09/12/2020 Telemedicine Visit Family Medicine Shahriar Fong MD [address] [phone] Health Maintenance Due Date Last Done [...] of this encounter Implants Implanted Type Area Electrical Maintenance Worker Device Shelf Expiration Model / Identifier Date Serial / Lot Ivc Filter Janice Femoral Us Bard #[id number] - S0 FILTER Groin Bar d 10/15/2020 [id number] / Implanted: Qty: 1 on 01/20/2018 by Karl Damon MD at [facility] 0 / [id number] documented as of this encounter Results Not on filedocumented in this encounter Insurance Payer Benefit Plan / Subscriber ID Effective Dates Phone Addre ss Type Group CIGNA CIGNA II [id number] 2003-[facility] O/PPO/POS t WELLCARE [place]LYSS[place] [facility] VI [id number] 2019-Presen Medicare Adv PLUS PLUS t HMO CLASSIC/VALUE documented as of this encounter
--- OUTSIDE RECORDS SUMMARY | 2020-09-21 19:53 | XMS REPORT | Summary of Care ---
:1955 Author Organization [address] [address] Care Team Providers Name Role Phone MD Ajit Primary Care Provider MD Ajit Unavailable Yashira Ramachandran program director Reason for Visit Reason Comments Assessment Hospital F/U Home Health Encounter Details Date Type Department Care Team Description 09/12/2020 Patient Outreach [facility] Ana Laura Ramachandran, header set up operator; [address] F /U; [place], [place] [address] Allergies No Known Allergiesdocumented as of this encounter (statuses as of 09/12/2020) Medications Medication Sig Dispensed Refills Start Date [...] (THREE) TIMES DAILY NEEDED FOR OTHER (ANXIETY). VALSARTAN-HYDROCHLOROTHI TAKE 1 TABLET 90 tablet 0 09/11/2020 Active AZIDE 320-25 mg per BY MOUTH EVERY tabletIndications: DAY Essential hypertension, benign documented as of this encounter (statuses as of 09/12/2020) Active Problems Problem Noted Date Staghorn calculus 11/16/2018 Kidney stone 10/13/2018 Overview: Added automatically from request for manda mancia [id number] Chronic gout without tophus, unspecified cause, unspec ified site 10/01/2018 Vaginal bleeding 05/05/2018 Postmenopausal vaginal bleeding 05/05/2018 Recurrent joint pain 05/05/2018 Dehydration 01/18/2018 Fistula 12/31/2017 Overview: Added automatically from request for manda mancia [id number] Hypotension 12/25/2017 Morbid obesity with body mass [...] 06/22/2015 Pyelonephritis 06/25/2007 Overview: ICD10 Diagnosis Term Lane Marker Installer Utility Type 2 diabetes mellitus with stage 3 chronic kidney d isease, without 06/25/2007 long-term current use of insulin Essential hypertension, benign 06/25/2007 Hypothyroidism 06/25/2007 Overview: ICD10 Diagnosis Term [address] Marker Installer Utility documented as of this encounter (statuses as of 09/12/2020) Immunizations Name Administration Dates Next Due Influenza [...] Progress Notes Ana Laura Ramachandran RN - 09/12/2020 8:30 AM CSTSummary: [facility] staff face to face FaceToFace Home Health Order I saw patient Rosio Jain in the [facility] on 09/12/2020 forthe following medical conditions and is the primary reason for home health care: s/p surgery of fx to femur. Pt is bed-bound. Pt found in her hospital bed, both rails up on the bed, patient currently using oxygen via [place], the patient is morbidly obese. She stated she is able to move side to side. She said a physical therapist named Kamille came to her residence on 09/11/20 and assisted the patient to the side of bed, feet dangling. The patient reports 0/10 pain. The patient did confirm she is currently using oral pain medicine. The patient has a hospital bed, prachi lift, and bariatric RW at the bedside. Patient and her daughter in law both denied any pressure ulcers present on patient. Patient did agree to the heightened risk of injury if there was a emergent need to exit the home, she would not beable to do so. Pt does have her mobile phone accessible at all times. Two small RainStoruas present in the home. PT, Kamille, from [facility] phoned patient during HV. Kamille stated PT evaluation and treatment wasordered by Dr. Bone. She currently is needing instructions re: PT. Per Kamille, Dr. Bone indicated there is a fracture to patient's shoulder. Per notes from Dr. Fong, the patient had a fracturedfemur where surgical saira was placed. There is no indication of patient having a fractured shoulder. The patient is over income to receive any medicaid. The patient has Medicare A/B and Cigna. CM willsaryify JUICE RN, and PARVIN Rosas. I certify, based on my findings, that the following services are medically necessary: [facility]: Yes - 1 x visit to admit (Required to order PT/OT only) Physical therapy: No Occupational therapy: No Speech language pathology: No Certified Home Health Aid: No Home Health Agency [employer] Faculty Member: No Rosio Jain has the following additional diagnoses: Patient Active Problem List Diagnosis Pyelonephritis Type 2 diabetes mellitus with stage 3 chronic kidney disease, without long- term current use of insulin Essential hypertension, benign Hypothyroidism Dysuria Bed sore, stage 2 Lump or mass in breast Dyspareunia Well woman exam with routine gynecological exam Cervical polyp Osteoarthritis, unspecified osteoarthritis type, unspecified site Fistula, bladder Anxiety Insomnia, unspecified type Chronic low back pain Hypotension Morbid obesity with body mass index of 40.0-49.9 Fistula Dehydration Vaginal bleeding Postmenopausal vaginal bleeding Recurrent joint pain Chronic gout without tophus, unspecified cause, unspecified site Kidney stone Staghorn calculus I certify my clinical findings/ diagnoses support that this patient is homebound per CMS guidelines: A taxing effort exists for Rosio Jain to leave home due to: Poor endurance due to: S/P Surgery , Requires an assistive device to leave home, Requires attendance of at least one other person to leave home and High risk of fall in leaving home I certify that this patient is under the care of the [facility] and that I had a soem-pi-snff encounter that meets the [facility] rlar-bm-limq requirements with this patient as noted above. Ana Laura Ramachandran RN 09/12/2020 documented in this encounter Plan of Treatment [...] of this encounter Implants Implanted Type Area Cash Surrender Calculator Device Shelf Expiration Model / Identifier Date Serial / Lot Ivc Filter Janice Femoral [facility] #[id number] - S0 FILTER Groin Bar d 10/15/2020 [id number] / Implanted: Qty: 1 on 01/20/2018 by Karl Damon MD at [facility] 0 / [id number] documented as of this encounter Results Not on filedocumented in this encounter Insurance Payer Benefit Plan / Subscriber ID Effective Dates Phone Addre ss Type Group CIGNA CIGNA II [id number] 2003-[facility] O/PPO/POS t [place]ARE [place] WELL[place]ARE [place] [id number] 2019-Presen Medicare Adv PLUS PLUS t HMO CLASSIC/VALUE (Home) [place] [address] documented as of this encounter
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
--- OUTSIDE RECORDS SUMMARY | 2020-09-21 19:54 | XMS REPORT | Summary of Care ---
:1955 Author Organization [facility] [place] [address] Care Team Providers Name Role Phone MD Ajit Primary Care Provider MD Ajit Unavailable Yashira Ramachandran RNmanufacturers representative Reason for Visit Reason Comments Home Health Encounter Details Date Type Department Care Team Description 09/13/2020 Patient Outreach [facility] Primary Vamsi Powers, [facility] [address] [address] [phone] [address] [phone] Allergies No Known Allergiesdocumented as of this encounter (statuses as of 09/13/2020) Medications Medication Sig Dispensed Refills Start Date [...] as of this encounter (statuses as of 09/13/2020) Active Problems Problem Noted Date Staghorn calculus 11/16/2018 Kidney stone 10/13/2018 Overview: Added automatically from request for manda blanche [id number] Chronic gout without tophus, unspecified cause, unspec ified site 10/01/2018 Vaginal bleeding 05/05/2018 Postmenopausal vaginal bleeding 05/05/2018 Recurrent joint pain 05/05/2018 Dehydration 01/18/2018 Fistula 12/31/2017 Overview: Added automatically from request for manda mancia [id number] Hypotension 12/25/2017 Morbid obesity with body mass [...] 06/22/2015 Pyelonephritis 06/25/2007 Overview: ICD10 Diagnosis Term Exceptional Student Education Teacher Utility Type 2 diabetes mellitus with stage 3 chronic kidney d isease, without 06/25/2007 long-term current use of insulin Essential hypertension, benign 06/25/2007 Hypothyroidism 06/25/2007 Overview: ICD10 Diagnosis Term Exceptional Student Education Teacher Utility documented as of this encounter (statuses as of 09/13/2020) Immunizations Name Administration Dates Next Due Influenza [...] encounter Progress Notes Sherley Powers LMSW - 09/13/2020 11:13 AM CSTSocial Work Note Breadman (PARVIN) received request from [facility]RN requesting clinicals for patient Physical Therapist ([facility] p: [phone] f: [phone]). SW communicated with [facility] -RN (Concepcion Ramachandran) regarding request; send orders upon receipt of MD clinicals (mikael). No new needs identified at present. SW services complete. Sherley Powers LMSW, CCM Breadman- Trim Stencil Maker Management [facility] [place] [facility] Based Clinics [place], [place], [place] ,and [place] Pager: [phone] Em: [email or web address] documented in this encounter Plan of Treatment [...] of this encounter Implants Implanted Type Area End Lathe Operator Device Shelf Expiration Model / Identifier Date Serial / Lot Ivc Filter Briscoe Femoral Bard #[id number] - S0 FILTER Groin Bar d 10/15/2020 [id number] / Implanted: Qty: 1 on 01/20/2018 by Karl Damon MD at [facility] 0 / [id number] documented as of this encounter Results Not on filedocumented in this encounter Insurance Payer Benefit Plan / Subscriber ID Effective Dates Phone Addre ss Type Group CIGNA CIGNA II [id number] 2003-[facility] O/PPO/POS t WELLCARE [place] WELLCARE [place]YSSA [id number] 2019-Presen Medicare Adv PLUS PLUS t HMO CLASSIC/VALUE documented as of this encounter
--- OUTSIDE RECORDS SUMMARY | 2020-09-21 19:54 | XMS REPORT | Summary of Care ---
:1955 Author Organization [facility] Address [address] [place] [address] Care Team Providers Name Role Phone MD Ajit Primary Care Provider MD Ajit Unavailable Yashira Ramachandran RNhat measurer Reason for Visit Reason Comments Assessment Triage Encounter Details Date Type Department Care Team Description 09/21/2020 Telephone [facility] Shahriar Fong MD Assessment (Triage ) Medicine - [address] [facility] [phone] Allergies No Known Allergiesdocumented as of this encounter (statuses as of 09/21/2020) Medications Medication Sig Dispensed Refills Start Date [...] as of this encounter (statuses as of 09/21/2020) Active Problems Problem Noted Date Chronic bronchitis 06/17/2020 Staghorn calculus 11/16/2018 Kidney stone 10/13/2018 Overview: Added automatically from request for manda mancia [id number] Chronic gout without tophus, unspecified cause, unspec ified site 10/01/2018 Vaginal bleeding 05/05/2018 Postmenopausal vaginal bleeding 05/05/2018 Recurrent joint pain 05/05/2018 Dehydration 01/18/2018 Fistula 12/31/2017 Overview: Added automatically from request for manda mancia [id number] Hypotension 12/25/2017 Morbid obesity with body mass [...] 06/22/2015 Pyelonephritis 06/25/2007 Overview: ICD10 Diagnosis Term Optical Mechanic Utility Type 2 diabetes mellitus with stage 3 chronic kidney d isease, without 06/25/2007 long-term current use of insulin Essential hypertension, benign 06/25/2007 Hypothyroidism 06/25/2007 Overview: ICD10 Diagnosis Term Optical Mechanic Utility documented as of this encounter (statuses as of 09/21/2020) Immunizations Name Administration Dates Next Due Influenza [...] encounter Miscellaneous Notes Telephone Encounter - Mabel Bone, PROOFER - 09/21/2020 11:03 AM CSTAlso requested Tele-health appointment with Dr Fong, since patient refuses to go to the ER for these chronic symptoms and she is not bale to come in to the office to be seen. I passed the call to the [facility] to make Tele-health appointment with Dr Fong. We can assess her and do the Face to face encounters that she requires for home health and for the oxygen as well. elephone Encounter - Arthur Fong MD - 09/21/2020 10:43 AM CSTOK elephone Encounter - Mabel Bone LVN - 09/21/2020 9:42 AM CSTRachel from [place] calling again about her low O2 sat today at 85% and she refuses to go to the ER, she still has not had [facility] out to repair or exchange her oxygen equipment. Siri will contact [facility] as I faxed them orders last week of her to continue oxygen and the patient has not heard from them. She will let me know what they say if we need to resend the orders we will or send to different company. elephone Encounter - Marni Nicholas - 09/21/2020 9:36 AM CSTRachel from [facility] is calling stating that the patient oxygen level is currently at 85, and is stating that the O2 machine is still having issues and not producing enough. Siri is being transferred to a nurse. documented in this encounter Plan of Treatment [...] of this encounter Implants Implanted Type Area Top Lift Trimmer Device Shelf Expiration Model / Identifier Date Serial / Lot Ivc Filter Garrett Femoral [facility] #[id number] - S0 FILTER Groin Bar d 10/15/2020 [id number] / Implanted: Qty: 1 on 01/20/2018 by Karl Damon MD at [facility] 0 / [id number] documented as of this encounter Results Not on filedocumented in this encounter Insurance Payer Benefit Plan / Subscriber ID Effective Dates Phone Addre ss Type Group CIGNA CIGNA II [id number] 2003-[facility] O/PPO/POS t [employer] [place] WE[employer]ARE [place] [id number] 2019-Presen Medicare Adv PLUS PLUS t HMO CLASSIC/VALUE documented as of this encounter
--- OUTSIDE RECORDS SUMMARY | 2020-09-21 19:54 | XMS REPORT | Summary of Care ---
:1955 Author Organization [facility] Address [address] [place] [id number] Care Team Providers Name Role Phone MD Ajit Primary Care Provider MD Ajit Unavailable Yashira Ramachandran RNware dresser Reason for Visit Reason Comments Orders Assessment TRIAGE Encounter Details Date Type Department Care Team Description 09/12/2020 Telephone [facility] Family Shahriar Meek MD Orders; Assessment Medicine - [address] (TRIAGE) [address] [place] [address] Drive [address] [place], [place] [phone] [id number] [phone] Allergies No Known Allergiesdocumented as of this [...] Added automatically from request for manda blanche [id number] Chronic gout without tophus, unspecified cause, unspec ified site 10/01/2018 Vaginal bleeding 05/05/2018 Postmenopausal vaginal bleeding 05/05/2018 Recurrent joint pain 05/05/2018 Dehydration 01/18/2018 Fistula 12/31/2017 Overview: Added automatically from request for manda mancia [id number] Hypotension 12/25/2017 Morbid obesity with body mass [...] 06/22/2015 Pyelonephritis 06/25/2007 Overview: ICD10 Diagnosis Term Lap Layer Utility Type 2 diabetes mellitus with stage 3 chronic kidney d isease, without 06/25/2007 long-term current use of insulin Essential hypertension, benign 06/25/2007 Hypothyroidism 06/25/2007 Overview: ICD10 Diagnosis Term Lap Layer Utility documented as of this encounter (statuses [...] Telephone Encounter - Mabel Bone LVN - 09/13/2020 7:30 AM CSTOxygen order has been placed and will be faxed to [facility] [place]. elephone Encounter - Arthur Meek MD - 09/13/2020 6:27 AM CSTOK elephone Encounter - Mabel Bone LVN - 09/12/2020 12:33 PM CSTI took this call spoke with Siri and advised that if her o2 sat is at 88 she should go to the ER or call EMS to transport so that they can get her on oxygen on the way, the patient refused to go to the ER. She has had this oxygen since December when she had COVID and it was never picked up afterwards and she has been using it since her last hospitalization. The therapist called [facility] about this and they were told she should not even have the oxygen concentrator as it was only ordered when she had covid. [facility] will not go out to check on the machine. Siri will email her notes indicating the pulse ox at the time of her visit. She is asking if an order can be placed forthe oxygen and sent to [facility] so that the machine can be serviced. I advised will get message in the morning as he is out of office for the day. OXYGEN ORDERS WILL REQUIRE OFFICE NOTES STATING THE NEED AND QUALIFYING INFORMATION. VE DIRECTORY ADMINISTRATOR Telephone Encounter - Amisha Pugh - 09/12/2020 12:21 PM CSTRachel with [facility] stated patient is needing to continue her oxygen. Siri stated to sendto [facility]. Siri states machine is not working and making alert noise. Oxygen 88% Per Siri she stated they will need proof that she has seen DR MEEK and requesting chart notes tosent to [facility]. PSS PATRICIA Took triage to pass to nurse. documented in this encounter Plan of [...] of this encounter Implants Implanted Type Area Radio Division Lieutenant Device Shelf Expiration Model / Identifier Date Serial / Lot Ivc Filter Travis Femoral [facility] #[id number] - S0 FILTER Groin Bar d 10/15/2020 [id number] / Implanted: Qty: 1 on 01/20/2018 by Karl Damon MD at [facility] 0 / [id number] documented as of this encounter Results Not on filedocumented in this encounter Visit Diagnoses Diagnosis Hypoxia - Primary Hypoxemia Uncomplicated asthma, unspecified asthma severity, unspecified whether persistent PE (pulmonary thromboembolism) Chronic pulmonary embolism Wheezing documented in this encounter Insurance Payer Benefit Plan / Subscriber ID Effective Dates Phone Addre ss Type Group CIGNA CIGNA II [id number] [facility] [employer] [place] [employer] [place] [id number] 2019-Pres Medicare Adv PLUS PLUS t HMO CLASSIC/VALUE documented as of this encounter
[2020-09-21 20:53] LABS: Arterial Blood Carboxyhemoglob 1.2 % (0-1.5); Blood Gas Oxyhemoglobin 93.8 % (94-97)
--- NOTE | 2020-09-21 20:57 | RAD REPORT ---
EXAM DESCRIPTION: Jason Single View09/21/2020 8:37 pm CLINICAL HISTORY: Cough COMPARISON: 2016 and June 2020 FINDINGS: Moderate to marked right and [id number] left pulmonary opacities are overall without significant change from multiple prior exams Heart is mildly enlarged. Right lung volume loss persists. IMPRESSION: Moderate to marked right and [id number] left pulmonary opacities are mostly chroni c. A there may be a mild superimposed pneumonia/pneumonitis
[2020-09-21 21:14] LABS: Absolute Lymphocytes (CBC) 1.4 K/uL (0.7-4.9)
[2020-09-21 21:17] LABS: Protime INR 1.03
[2020-09-21 21:20] LABS: Basophils % 0.5 % (0-1.3); Hematocrit 42.6 % (36.0-45.0); Lymphocytes % 13.4 % (15.3-44.8); MPV 8.4 fL (7.6-11.3); RBC Red Blood Cell Count 5.06 M/uL (3.86-4.86)
[2020-09-21 21:56] LABS: ALT/SGPT 24 U/L (12-78); AST/SGOT 20 U/L (15-37); Albumin 3.2 g/dL (3.4-5.0); Alkaline Phosphatase 69 U/L (45-117); BUN Blood Urea Nitrogen 36 mg/dL (7-18); Bicarbonate 40 mmol/L (21-32); Bilirubin Direct 0.1 mg/dL (0-0.2); Bilirubin Total 0.4 mg/dL (0.2-1.0); Glucose Level 98 mg/dL (74-106); Magnesium 2.3 mg/dL (1.8-2.4); NT PRO-BNP 1268 pg/mL (<125); Potassium 4.7 mmol/L (3.5-5.1); Protein, Total 8.2 g/dL (6.4-8.2); Sodium Level 142 mmol/L (136-145); Troponin (Emerg Dept Use Only) < 0.02 ng/mL (0.0-0.045)
[2020-09-21 22:18] LABS: SARS-COV-2 RT PCR NEGATIVE (NEGATIVE)
--- NOTE | 2020-09-22 02:38 | ER ---
Nurse's Notes [facility] Name: Rosio Jain Age: 65 yrs Sex: Female : 1955 Arrival Date: 09/21/2020 Time: 19:41 Bed 18 Private MD: Diagnosis: Acute dyspnea. Hypoxia. Acute exacerbation COPD. Pneumonia Presentation: 09/21 19:43 Chief complaint: EMS states: Pt was having SOb and since yesterday, was seen by Virtual MD and advised to go to ER because of HX of PE. Pt O2 sats were at 88% on 3LNC at home but was placed on EMS O2 with same 3LNC and O2 sats went up to 99%. Coronavirus screen: Client denies travel out of the [place] in the last 14 days. difficulty breathing, shortness of breath, Client presents with at least one sign or symptom that may indicate coronavirus-19. Standard/surgical mask placed on the client. Provider contacted for isolation considerations. Ebola Screen: Patient negative for fever greater than or equal to 101.5 degrees Fahrenheit, and additional compatible Ebola Virus Disease symptoms Patient denies exposure to infectious person. Initial Sepsis Screen: Does the patient meet any 2 criteria? RR > 20 per min. Does the patient have a suspected source of infection? No. Patient's initial sepsis screen is negative. Risk Assessment: Do you want to hurt yourself or someone else? Patient reports no desire to harm self or others. Onset of symptoms was September 21, 2020. 19:43 Method Of Arrival: EMS: [facility] 19:43 Acuity: DYAN 3 Triage Assessment: 19:51 Respiratory: Reports shortness of breath Onset: The symptoms/episode began/occurred yesterday, the patient has mild shortness of breath. Historical: - Allergies: 19:50 NKA; - PMHx: 19:50 ADD/ADHD; Anxiety; Asthma; COPD; Diabetes - NIDDM; Hypertension; Hypothyroidism; PE; - PSHx: 19:50 Thyroidectomy; - Immunization history:: Adult Immunizations not up to date. - Social history:: Smoking status: Patient/guardian denies using. Screenin:50 Abuse screen: Denies threats or abuse. Denies injuries from another. Nutritional screening: No deficits noted. Tuberculosis screening: No symptoms or risk factors identified. Fall Risk Secondary diagnosis (15 points) impaired mobility. Assessment: 20:00 General: Appears in no apparent distress. Behavior is calm, cooperative, appropriate wh for age. Pain: Denies pain. Neuro: Level of Consciousness is awake, alert, obeys commands, Oriented to person, place, time, situation, Appropriate for age. Cardiovascular: Heart tones S1 S2 Rhythm is regular. Respiratory: Airway is patent Respiratory effort is even, labored, Respiratory pattern is tachypnea Breath sounds with rales bilaterally. Respiratory: Reports shortness of breath cough that is. GI: Abdomen is round non-distended. : No signs and/or symptoms were reported regarding the genitourinary system. EENT: No signs and/or symptoms were reported regarding the EENT system. Derm: Skin is intact, is healthy with good turgor, Skin is pink, warm \T\ dry. normal. Musculoskeletal: Circulation, motion, and sensation intact. 21:30 Reassessment: Patient appears in no apparent distress at this time. No changes from previously documented assessment. Patient and/or family updated on plan of care and expected duration. Pain level reassessed. Patient is alert, oriented x 3, equal unlabored respirations, skin warm/dry/pink. 23:00 Reassessment: Patient appears in no apparent distress at this time. Patient and/or family updated on plan of care and expected duration. Pain level reassessed. Patient is alert, oriented x 3, equal unlabored respirations, skin warm/dry/pink. 09/22 00:30 Reassessment: Patient appears in no apparent distress at this time. Patient and/or family updated on plan of care and expected duration. Pain level reassessed. Patient is alert, oriented x 3, equal unlabored respirations, skin warm/dry/pink. 02:00 Reassessment: Patient and/or family updated on plan of care and expected duration. Pain wh level reassessed. Patient is alert, oriented x 3, equal unlabored respirations, skin warm/dry/pink. Pt sleeping on BIPAP tolerating well. Vital Signs: 09/21 19:43 BP 157 / 98; Pulse 73; Resp 22; Temp 98.1; Pulse Ox 97% on 3 lpm NC; Weight 154.22 kg; wh Height 5 ft. 9 in. (175.26 cm); 21:30 BP 122 / 75; Pulse 77; Resp 20; Pulse Ox 98% on R/A; 23:00 BP 116 / 60; Pulse 61; Resp 20; Pulse Ox 93% on 30% BiPAP; 09/22 00:30 BP 111 / 58; Pulse 53; Resp 20; Pulse Ox 94% on 30% BiPAP; 02:00 BP 133 / 59; Pulse 51; Resp 18; Pulse Ox 95% on 30% BiPAP; 09/21 19:43 Body Mass Index 50.21 (154.22 kg, 175.26 cm) ED Course: 09/21 19:41 Patient arrived in ED. 19:43 Ronal Christianson MD is Attending Physician. pkl 19:49 Triage completed. 19:50 Patient has correct armband on for positive identification. Bed in low position. Call light in reach. Side rails up X 1. monitoring manager on. Pulse ox on. NIBP on. 19:50 Arm band placed on right wrist. 20:15 Inserted saline lock: 22 gauge in right antecubital area, using aseptic technique. Blood collected. 20:24 Earline Harper is Primary Nurse. 20:38 XRAY Chest (1 view) In Process Unspecified. EDMS 09/22 01:26 CT Chest For PE Angio In Process Unspecified. EDMS 02:37 Magno Cm DO is Hospitalizing Provider. pkl 03:28 No provider procedures requiring assistance completed. Patient admitted, IV remains in place. Administered Medications: 03:12 Drug: SOLU-Medrol 125 mg Route: IVP; Site: right upper arm; 03:32 Follow up: Response: No adverse reaction 03:26 Drug: Albuterol - atroVENT (3:1) (2.5 mg - 0.5 mg) 3 ml {Note: VIA BIPAP.} Route: Nebulizer; 03:32 Follow up: Response: No adverse reaction 03:32 Drug: LevaQUIN 500 mg Volume: 100 ml; Route: IVPB; Infused Over: 60 mins; Site: right upper arm; 03:32 Follow up: Response: No adverse reaction; IV Status: Infusion continued upon admission Outcome: 02:38 Decision to Hospitalize by Provider. pkl 03:28 Admitted to ER Hold. Please see [facility] for further documentation. 03:28 Condition: stable 03:28 Instructed on the need for admit. 09/23 00:18 Admitted to Med/surg accompanied by tech, via stretcher, room 209, with chart, Report called to Alex Coyne RN Condition: stable Instructed on the need for admit. 00:19 Patient left the ED. Signatures: Dispatcher [employer] EDRonal Ferguson MD MD pkl [place], Winsy
--- NOTE | 2020-09-22 02:38 | EDPHYS ---
Physician Documentation [facility] Name: Rosio Jain Age: 65 yrs Sex: Female : 1955 Arrival Date: 09/21/2020 Time: 19:41 Bed 18 Private MD: ED Physician Ronal Christianson HPI: 09/21 20:22 This 65 yrs old Female presents to ER via EMS with complaints of Shortness Of pkl Breath. 20:22 The patient has shortness of breath at rest. Onset: The symptoms/episode began/occurred pkl yesterday. Associated signs and symptoms: Pertinent positives: productive cough, bodyache. Patient has PE 3 years ago. Historical: - Allergies: 19:50 NKA; wh - PMHx: 19:50 ADD/ADHD; Anxiety; Asthma; COPD; Diabetes - NIDDM; Hypertension; Hypothyroidism; PE; wh - PSHx: 19:50 Thyroidectomy; wh - Immunization history:: Adult Immunizations not up to date. - Social history:: Smoking status: Patient/guardian denies using. ROS: 20:22 Eyes: Negative for injury, pain, redness, and discharge, ENT: Negative for injury, pkl pain, and discharge, Neck: Negative for injury, pain, and swelling, Cardiovascular: Negative for chest pain, palpitations, and edema. 20:22 Respiratory: Positive for cough, with clear sputum, shortness of breath. 20:22 Abdomen/GI: Negative for abdominal pain, nausea, vomiting, and diarrhea. 20:22 Back: Negative for acute changes. 20:22 : Negative for urinary symptoms. 20:22 MS/extremity: Negative for acute changes. 20:22 Skin: Negative for rash. 20:22 Neuro: Negative for altered mental status, loss of consciousness. Exam: 20:22 Head/Face: Normocephalic, atraumatic. Eyes: Pupils equal round and reactive to light, pkl extra-ocular motions intact. Lids and lashes normal. Conjunctiva and sclera are non-icteric and not injected. Cornea within normal limits. Periorbital areas with no swelling, redness, or edema. ENT: Nares patent. No nasal discharge, no septal abnormalities noted. Tympanic membranes are normal and external auditory canals are clear. Oropharynx with no redness, swelling, or masses, exudates, or evidence of obstruction, uvula midline. Mucous membranes moist. Neck: Trachea midline, no thyromegaly or masses palpated, and no cervical lymphadenopathy. Supple, full range of motion without nuchal rigidity, or vertebral point tenderness. No Meningismus. Chest/axilla: Normal chest wall appearance and motion. Nontender with no deformity. No lesions are appreciated. 20:22 Cardiovascular: Rate: normal, Rhythm: regular. 20:22 Respiratory: mild respiratory distress is noted, Respirations: labored breathing, that is mild, Breath sounds: rales, that are moderate, are scattered. 20:22 Abdomen/GI: Bowel sounds: normal, Palpation: abdomen is soft and non-tender, in all quadrants. 20:22 Back: Exam negative for acute changes. 20:22 : Exam negative for acute changes. 20:22 Musculoskeletal/extremity: Exam is negative for acute changes. 20:22 Skin: Exam negative for rash. 20:22 Neuro: Orientation: is normal, Mentation: is normal, Cranial nerves: grossly normal, Motor: is normal. Vital Signs: 19:43 BP 157 / 98; Pulse 73; Resp 22; Temp 98.1; Pulse Ox 97% on 3 lpm NC; Weight 154.22 kg; wh Height 5 ft. 9 in. (175.26 cm); 21:30 BP 122 / 75; Pulse 77; Resp 20; Pulse Ox 98% on R/A; 23:00 BP 116 / 60; Pulse 61; Resp 20; Pulse Ox 93% on 30% BiPAP; 09/22 00:30 BP 111 / 58; Pulse 53; Resp 20; Pulse Ox 94% on 30% BiPAP; 02:00 BP 133 / 59; Pulse 51; Resp 18; Pulse Ox 95% on 30% BiPAP; 09/21 19:43 Body Mass Index 50.21 (154.22 kg, 175.26 cm) MDM: 09/21 19:43 Patient medically screened. [facility] 09/22 02:35 Data reviewed: vital signs, nurses notes, lab test result(s), EKG, radiologic studies, pkl CT scan, plain films. ED course: Talked to Flavio Hidalgo, admit Dr. Cm. 09/21 20:18 Order name: Basic Metabolic Panel; Complete Time: 23:09 pkl 09/21 20:18 Order name: CBC with Diff; Complete Time: 21:41 pkl 09/21 20:18 Order name: LFT's; Complete Time: 23:09 pkl 09/21 20:18 Order name: Magnesium; Complete Time: 23:09 pkl 09/21 20:18 Order name: NT PRO-BNP; Complete Time: 23:09 pkl 09/21 20:18 Order name: PT-INR; Complete Time: 21:41 pkl 09/21 20:18 Order name: Troponin (emerg Dept Use Only); Complete Time: 23:09 pkl 09/21 20:18 Order name: D-Dimer; Complete Time: 21:41 pkl 09/21 20:18 Order name: ABG; Complete Time: 21:41 pkl 09/21 20:19 Order name: Blood Culture Adult (2) pkl 09/21 20:19 Order name: Lactate; Complete Time: 21:41 pkl 09/21 20:19 Order name: Procalcitonin; Complete Time: 21:46 pkl 09/21 20:18 Order name: XRAY Chest (1 view); Complete Time: 21:41 pkl 09/21 20:18 Order name: EKG; Complete Time: 20:19 pkl 09/21 20:18 Order name: Cardiac monitoring; Complete Time: 21:03 pkl 09/21 20:18 Order name: EKG - Nurse/Tech; Complete Time: 21:03 pkl 09/21 20:18 Order name: IV Saline Lock; Complete Time: 21:03 pkl 09/21 20:19 Order name: TSH; Complete Time: 23:09 pkl 09/21 22:04 Order name: T4 Free; Complete Time: 23:09 EDMS 09/21 22:18 Order name: COVID-19/FLU A+B; Complete Time: 23:09 EDMS 09/21 23:11 Order name: CT Chest For PE Angio pkl 09/22 01:17 Order name: BIPAP wh 09/22 08:24 Order name: Glucose, Ancillary Testing EDMS 09/22 11:25 Order name: ABG Arterial Blood Gas EDMS 09/22 19:46 Order name: Glucose, Ancillary Testing EDMS 09/21 20:18 Order name: Labs collected and sent; Complete Time: 21:03 pkl 09/21 20:18 Order name: O2 Per Protocol; Complete Time: 21:03 pkl 09/21 20:18 Order name: O2 Sat Monitoring; Complete Time: 21:03 pkl Administered Medications: 03:12 Drug: SOLU-Medrol 125 mg Route: IVP; Site: right upper arm; 03:32 Follow up: Response: No adverse reaction 03:26 Drug: Albuterol - atroVENT (3:1) (2.5 mg - 0.5 mg) 3 ml {Note: VIA BIPAP.} Route: Nebulizer; 03:32 Follow up: Response: No adverse reaction 03:32 Drug: LevaQUIN 500 mg Volume: 100 ml; Route: IVPB; Infused Over: 60 mins; Site: right upper arm; 03:32 Follow up: Response: No adverse reaction; IV Status: Infusion continued upon admission Disposition: 09/22/20 02:38 Hospitalization ordered by Magno Cm for Inpatient Admission. Preliminary diagnosis is Acute dyspnea. Hypoxia. Acute exacerbation COPD. Pneumonia. - Bed requested for Telemetry/MedSurg (Inpatient). - Status is Inpatient Admission. - Condition is Stable. - Problem is new. - Symptoms are unchanged. Signatures: Dispatcher [employer] EDMS Ronal Christianson MD MD l Flavio Hidalgo, FINISHING ROOM OPERATOR-C FINISHING ROOM OPERATOR-Cla1 Jaelyn Hanna, MARK RN Earline Harper Corrections: (The following items were deleted from the chart) 09/21 21:10 20:18 Influenza Screen (A \T\ B)+BA.LAB.BRZ ordered. EDHI EDMS 21:10 20:18 CORONAVIRUS+MR.LAB.BRZ ordered. EDHI EDMS 09/22 03:04 02:38 Hospitalization Ordered by Mango Cm DO for Inpatient Admission. Preliminary cg diagnosis is Acute dyspnea. Hypoxia. Acute exacerbation COPD. Pneumonia. Bed requested for Telemetry/MedSurg (observation). Status is Inpatient Admission. Condition is Stable. Problem is new. Symptoms are unchanged. pkl 22:38 03:04 09/22/2020 02:38 Hospitalization Ordered by Magno Cm DO for Inpatient cg Admission. Preliminary diagnosis is Acute dyspnea. Hypoxia. Acute exacerbation COPD. Pneumonia. Bed requested for [facility] ER HOLD. Status is Inpatient Admission. Condition is Stable. Problem is new. Symptoms are unchanged. cg 09/23 00:19 09/22 22:38 09/22/2020 02:38 Hospitalization Ordered by Magno Cm DO for Inpatient Admission. Preliminary diagnosis is Acute dyspnea. Hypoxia. Acute exacerbation COPD. Pneumonia. Bed requested for Telemetry/MedSurg (Inpatient). Status is Inpatient Admission. Condition is Stable. Problem is new. Symptoms are unchanged.
--- NOTE | 2020-09-22 03:12 | P.HP ---
Certification for Inpatient Patient admitted to: Inpatient With expected LOS: >2 Midnights Patient will require the following post-hospital care: None Practitioner: I am a practitioner with admitting privileges, knowledge of patient current condition, hospital course, and medical plan of care. Services: Services provided to patient in accordance with Admission requirements found in Title 42 Section 412.3 of the Code of Federal Regulations <Flavio Hidalgo - Last Filed: 09/22/20 03:08> Patient History Date of Service: 09/22/20 Primary Care Provider: Dr. Benjamin Reason for admission: COPD exacerbation History of Present Illness: 65-year-old female with history of diabetes mellitus type 2, hyper tension, COPD, secondary hypothyroidism presents to the emergency department for shortness of breath. Patient reports that she has been increasingly short of breath over the course of the last 2-3 days. Patient interview kept him enema as she was very tachypneic and dyspneic even on BiPAP. Patient was satting in the 80s on her home oxygen 3 L per nasal cannula. Lab significant for white blood cell count 10.2 with some left shift, elevated pro calcitonin 0.23 TSH 173. Free T4 0.2 ABG shows pH 7.26, CO2 93. Patient on BiPAP, tolerating this well. Patient with history of PE, PE protocol ordered, negative for pulmonary embolism. Negative for COVID. ED provider wishes to admit patient for further evaluation and management. Patient does not appear septic - Past Medical/Surgical History Diabetic: Yes -: Hypertension -: Diabetes mellitus type 2 -: Secondary hypothyroidism -: DVT/PE -: Kidney stones -: Anxiety -: COPD -: Tubal Ligation -: Kidney stone removal -: cyst on thyroid removed -: enterocutaneous fistula repair Psychosocial/ Personal History: Patient lives at home with her family - Family History Father -: Heart disease Notes: she was adopted,, she does not know her family history - Social History Smoking Status: Never smoker Alcohol use: No CD- Drugs: No Caffeine use: Yes Place of Residence: Home <Flavio Hidalgo - Last Filed: 09/22/20 03:08> Date of Service: 09/22/20 Home medications list reviewed: Yes <Magno Cm - Last Filed: 09/22/20 13:40> Allergies No Known Allergies Allergy (Verified 09/22/20 03:49) Home Medications: ALPRAZolam [Alprazolam] 1 mg PO TID PRN 02/12/18 Furosemide [Lasix*] 20 mg PO DAILY 02/12/18 Metoprolol Tartrate [Lopressor*] 50 mg PO BID 02/12/18 Valsartan/Hydrochlorothiazide [Valsartan-Hctz 320-25 mg Tab] 1 tab PO DAILY 02/12/18 Zolpidem Tartrate [Ambien*] 10 mg PO BEDTIME 02/12/18 Citalopram [Celexa*] 1 tab PO DAILY 03/24/18 allopurinoL [Zyloprim*] 1 tab PO DAILY 03/24/18 Albuterol Inhaler [Ventolin Inhaler*] 2 puff IH Q6H PRN #1 hfa.aer.ad 04/05/20 Diclofenac Sodium 50 mg PO BID 04/05/20 Folic Acid 0.4 mg PO DAILY 04/05/20 Rivaroxaban [Xarelto*] 20 mg PO DAILY AT SUPPER #7 tablet 04/05/20 Tizanidine [Zanaflex*] 4 mg PO Q6HP PRN 04/05/20 predniSONE [Deltasone] 20 mg PO BID #14 tab 04/05/20 Review of Systems 10-point ROS is otherwise unremarkable Respiratory: Shortness of Breath, SOB with Excertion <Flavio Hidalgo - Last Filed: 09/22/20 03:08> Physical Examination - Physical Exam General: Alert, In no apparent distress, Oriented x3 HEENT: Atraumatic, Normocephalic, PERRLA Neck: Supple Respiratory: Diminished, Expiratory wheezes (Bilaterally), Other (Tachypnea shallow inspiratory effort) Cardiovascular: Normal pulses, Normal S1 S2 Capillary refill: <2 Seconds Gastrointestinal: Normal bowel sounds, No ascites, No tenderness, No masses Musculoskeletal: No contractures, No erythema, No tenderness Integumentary: No significant lesion, No tenderness/swelling, No erythema Neurological: Normal speech, Normal tone, Sensation intact - Studies Laboratory Data (last 24 hrs) 09/21/20 21:04: PT 12.1, INR 1.03 09/21/20 21:04: WBC 10.2, Hgb 13.5, Hct 42.6, Plt Count 196 09/21/20 21:04: Sodium 142, Potassium 4.7, BUN 36 H, Creatinine 1.18, Glucose 98, Magnesium 2.3, Total Bilirubin 0.4, AST 20, ALT 24, Alkaline Phosphatase 69 <Flavio Hidalgo - Last Filed: 09/22/20 03:08> - Studies Laboratory Data (last 24 hrs) 09/21/20 21:04: PT 12.1, INR 1.03 09/21/20 21:04: WBC 10.2, Hgb 13.5, Hct 42.6, Plt Count 196 09/21/20 21:04: Sodium 142, Potassium 4.7, BUN 36 H, Creatinine 1.18, Glucose 98, Magnesium 2.3, Total Bilirubin 0.4, AST 20, ALT 24, Alkaline Phosphatase 69 <Magno Cm - Last Filed: 09/22/20 13:40> Assessment and Plan - Plan Assessment Acute on chronic respiratory failure with respiratory acidosis, hypercapnia, hypoxia Diabetes mellitus type 2 Hypertension History of PE/DVT Hypothyroidism Plan Acute on chronic respiratory failure with respiratory acidosis, hypercapnia, hypoxia: IV steroids, scheduled nebs, steroid inhaler, pulmonology consult in place. Wean off of oxygen as tolerated. Continue with IV antibiotics at this time until infection is ruled out. Follow up on blood cultures. DVT prophylaxis with Lovenox. Diabetes mellitus type 2: A.c. HS Accu-Cheks insulin therapy. Hypertension: Obtain and continue home medications. History of PE/DVT: Will need to review patient's home medications to determine if she is on chronic anticoagulation, continue if she is. Hypothyroidism: Elevated TSH, low T4 will likely need to increase patient's levothyroxine dose, will evaluate once home medications are confirmed. Discharge Plan: Home Plan to discharge in: 24 Hours - Advance Directives Does patient have a Living Will: Yes Does patient have a Durable POA for Healthcare: Yes - Code Status/Comfort Care Code Status Assessed: Yes (Full code) Critical Care: No Time Spent Managing Pts Care (In Minutes): 55 <Flavio Hidalgo - Last Filed: 09/22/20 03:08> - Plan Case discussed in detail with nurse practitioner. Agree with plan of care. Will discuss with pulmonology. <Magno Cm - Last Filed: 09/22/20 13:40>
[2020-09-22] MEDS ORDERED: ALBUTEROL 2.5 MG/3 ML NEB SOL ONE (03:21)
[2020-09-22] MEDS ORDERED: METHYLPREDNISOLONE 125 MG INJ ONE (03:21)
[2020-09-22] MEDS ORDERED: IPRATROPIUM BROM 0.5MG/2.5ML ONE ×4 (03:21→20:26)
[2020-09-22] MEDS ORDERED: Levofloxacin500mg IV 500 MG/100 ML BAG IV ONE (03:47)
[2020-09-22] MEDS ORDERED: ALBUTEROL 2.5 MG/3 ML NEB SOL NEB PRN (03:48)
[2020-09-22] MEDS ORDERED: ACETAMINOPHEN 500 MG TAB PO PRN (03:48)
[2020-09-22] MEDS ORDERED: ONDANSETRON 4 MG/2 ML VIAL IV PRN (03:48)
[2020-09-22 03:49] VITALS: BMI 50.2
[2020-09-22] MEDS: INSULIN -REGULAR HUMAN 50 UNIT/0.5 ML ML SQ SCH ×4 (08:12→20:54)
[2020-09-22] MEDS ORDERED: METHYLPREDNISOLONE 40 MG INJ ONE ×2 (08:38→18:16)
[2020-09-22] MEDS ORDERED: ENOXAPARIN 40 MG/0.4 ML SQ ONE (08:38)
[2020-09-22] MEDS: ENOXAPARIN 40 MG/0.4 ML SQ SCH (08:42)
[2020-09-22] MEDS: METHYLPREDNISOLONE 40 MG INJ IV SCH ×2 (08:42→17:00)
[2020-09-22] MEDS ORDERED: INFLUENZA VACCINE (for 3y+) 0.5 ML DOSE IMVAC ONE ×2 (10:00→15:26)
[2020-09-22] MEDS ORDERED: PNEUMOCOCCAL VACCINE 0.5 ML IMVAC ONE (10:00)
[2020-09-22] MEDS ORDERED: LEVOTHYROXINE SODIUM 100 MCG VIAL IV SCH (10:11)
[2020-09-22] MEDS: DULERA 100/5 (MOMETASONE/FORMOTEROL) INHALER IH SCH ×2 (10:18→20:53)
--- NOTE | 2020-09-22 10:28 | RAD REPORT ---
EXAM DESCRIPTION: Chest For Pe Angio CLINICAL HISTORY: DYSPNEA COMPARISON: 04/04/2020 TECHNIQUE: CTA of the chest obtained following the uncomplicated intravenous administration of . 3-D /MIP reformatted images of the chest available for evaluation. FINDINGS: Chest: Pulmonary arteries: Contrast bolus is adequate.No filling defects identified in the pulmonary arterie s to suggest pulmonary embolus. Respiratory motion artifact. Thyroid: Diffuse enlargement of the thyroid. 2.2 cm left thyroid nodule. Great Vessels: Great vessels have normal anatomic configuration. Thoracic Aorta: Atherosclerotic calcification of the caliber thoracic aorta. Heart: Cardiac megaly. Coronary artery atherosclerosis. No significant pericardial effusion. Lymph Nodes: Multifocal mediastinal lymphadenopathy. Esophagus: No abnormalities of the esophagus identified. Other: No additional findings. Lungs: Upper lung interstitial and airspace opacities. Bilateral coarse interstitial opacities. Multi ple solid pulmonary nodules, the largest is seen on image #53, series #104 measuring 0.5 cm Pleura: No pleural effusion or pneumothorax. Trachea/Airways: Mild bilateral upper lung bronchiectasis. No acute abnormalities of the trachea. Bones: Mild endplate spondylosis. Upper Abdomen: Limited images of the upper abdomen demonstrate no definite abnormalities of visualize d portions of the liver, spleen, or adrenal glands. IMPRESSION: 1. No pulmonary embolus. 2. Bibasilar coarse interstitial opacities. Upper lung interstitial opacities with mild bronchiectasi s. Airspace opacities in the upper lungs. These findings may represent acute pneumonic process superi mposed on chronic lung disease. 3. Cardiomegaly with coronary artery atherosclerosis. 4. Diffuse thyroid enlargement as well as 2.2 cm indeterminate left thyroid nodule. Recommend thyro id US. Reference: J Am Ana Radiol. 2015 Feb;12(2): 143-50 5. Multiple pulmonary nodules. Most severe: 5 mm solid pulmonary nodule. For low risk patients, no ro utine follow-up imaging is recommended. For high risk patient. Your partial follow-up CT in 12 months recommended. These guidelines do not apply to immunocompromised patients and patients with cancer. Follow up in pa tients with significant comorbidities as clinically warranted. For lung cancer screening, adhere to L alexandra-RADS guidelines. Reference: Radiology. 2017; 284(1):228-43. 6. Mediastinal lymphadenopathy. This may be reactive however other etiology should also be considered . Reevaluation at follow-up recommended. This exam was performed according to our departmental dose-optimization program, which includes autom ated exposure control, adjustment of the mA and/or kV according to patient size and/or use of iterati ve reconstruction technique. Electronically signed by: Sachin Castillo 09/22/2020 1:48 AM [employer] Due to temporary technical issues with the PACS/Fluency reporting system, reports are being signed by the in house radiologist without review as a courtesy to ensure prompt reporting. The interpreting r adiologist is fully responsible for the content of the report.
[2020-09-22] MEDS: IPRATROPIUM BROM 0.5MG/2.5ML NEB SCH ×3 (10:45→20:25)
[2020-09-22 11:24] LABS: Arterial Blood Carboxyhemoglob 1.4 % (0-1.5); Blood Gas Oxyhemoglobin 81.7 % (94-97); Blood O2 Saturation 83.7 % (92-98.5)
[2020-09-22] MEDS ORDERED: WATER FOR INJ,STERILE 10 ML ONE (11:33)
--- NOTE | 2020-09-22 12:29 | P.CNS ---
Date of Consult: 09/22/20 Primary Care Provider: Dr. Benjamin Chief Complaint: Respiratory failure History of Present Illness: Patient is 65 years of age multiple medical problems admitted with worsening dyspnea she was found to be hypoxic hypercapnic respiratory failure and was severely hypothyroid as doing a little better history of COPD Allergies No Known Allergies Allergy (Verified 09/22/20 03:49) Home Medications: ALPRAZolam [Alprazolam] 1 mg PO TID PRN 02/12/18 Furosemide [Lasix*] 20 mg PO DAILY 02/12/18 Metoprolol Tartrate [Lopressor*] 50 mg PO BID 02/12/18 Valsartan/Hydrochlorothiazide [Valsartan-Hctz 320-25 mg Tab] 1 tab PO DAILY 02/12/18 Zolpidem Tartrate [Ambien*] 10 mg PO BEDTIME 02/12/18 Citalopram [Celexa*] 1 tab PO DAILY 03/24/18 allopurinoL [Zyloprim*] 1 tab PO DAILY 03/24/18 Albuterol Inhaler [Ventolin Inhaler*] 2 puff IH Q6H PRN #1 hfa.aer.ad 04/05/20 Diclofenac Sodium 50 mg PO BID 04/05/20 Folic Acid 0.4 mg PO DAILY 04/05/20 Rivaroxaban [Xarelto*] 20 mg PO DAILY AT SUPPER #7 tablet 04/05/20 Tizanidine [Zanaflex*] 4 mg PO Q6HP PRN 04/05/20 predniSONE [Deltasone] 20 mg PO BID #14 tab 04/05/20 - Past Medical/Surgical History Diabetic: Yes -: Hypertension -: Diabetes mellitus type 2 -: Secondary hypothyroidism -: DVT/PE -: Kidney stones -: Anxiety -: COPD -: Tubal Ligation -: Kidney stone removal -: cyst on thyroid removed -: enterocutaneous fistula repair Psychosocial/ Personal History: Patient lives at home with her family - Family History Father Medical History: Heart disease Notes: she was adopted,, she does not know her family history - Social History Smoking Status: Never smoker Alcohol use: No CD- Drugs: No Caffeine use: Yes Place of Residence: Home Review of Systems General: Weakness Respiratory: Shortness of Breath Cardiovascular: Edema Physical Examination Temp Pulse Resp BP Pulse Ox 98.2 F 55 19 104/66 100 09/22/20 03:51 09/22/20 08:00 09/22/20 08:00 09/22/20 08:00 09/22/20 08:00 General: Alert, In no apparent distress, Oriented x3 Neck: Supple Respiratory: Clear to auscultation bilaterally, Diminished Cardiovascular: Normal S1 S2, Abnormal S3, Edema Gastrointestinal: Normal bowel sounds, Soft and benign Musculoskeletal: No clubbing Integumentary: No rashes, No breakdown Neurological: Normal speech, Cranial nerves 3-12 intact Laboratory Data (last 24 hrs) 09/21/20 21:04: PT 12.1, INR 1.03 09/21/20 21:04: WBC 10.2, Hgb 13.5, Hct 42.6, Plt Count 196 09/21/20 21:04: Sodium 142, Potassium 4.7, BUN 36 H, Creatinine 1.18, Glucose 98, Magnesium 2.3, Total Bilirubin 0.4, AST 20, ALT 24, Alkaline Phosphatase 69 - Problems (1) Acute and chronic respiratory failure ([id number]) Current Visit: Yes Status: Acute Plan: Patient is 65 years of age admitted with acute on chronic respiratory failure patient is obese no prior history of obstructive sleep apnea she has a history of COPD very severely hypothyroid start on IV Synthroid on room air patient is hypoxic hypercapnic chemistries reviewed CT scan shows diffuse interstitial lung disease COPD changes continue with replacement of Synthroid may need noninvasive ventilator at home continue with bronchodilator at [facility] Qualifiers: Respiratory failure complication: hypoxia and hypercapnia Qualified Code(s): J96.21 - Acute and chronic respiratory failure with hypoxia; J96.22 - Acute and chronic respiratory failure with hypercapnia
--- NOTE | 2020-09-22 13:44 | P.PN ---
Subjective Date of Service: 09/22/20 Primary Care Provider: Dr. Benjamin Chief Complaint: Respiratory failure Subjective: Other (Patient On BiPAP. No significant distress noted.) Physical Examination - Vital Signs Temperature: 98.2 F Blood Pressure: 104/66 Pulse: 55 Respirations: 19 Pulse Ox (%): 100 - Physical Exam General: Alert, In no apparent distress, Oriented x3, Cooperative HEENT: Atraumatic Neck: Supple Respiratory: Expiratory wheezes, Other (On BiPAP) Cardiovascular: Normal pulses Gastrointestinal: No masses, No rebound, No guarding Neurological: Normal speech, Normal strength at 5/5 x4 extr, Normal tone, Normal affect - Studies Laboratory Data (last 24 hrs) 09/21/20 21:04: PT 12.1, INR 1.03 09/21/20 21:04: WBC 10.2, Hgb 13.5, Hct 42.6, Plt Count 196 09/21/20 21:04: Sodium 142, Potassium 4.7, BUN 36 H, Creatinine 1.18, Glucose 98, Magnesium 2.3, Total Bilirubin 0.4, AST 20, ALT 24, Alkaline Phosphatase 69 Medications List Reviewed: Yes Assessment & Plan Discharge Plan: Home Plan to discharge in: 72 Hours Physician Review Additional Text: Assessment Acute on chronic respiratory failure with respiratory acidosis, hypercapnia, hypoxia Diabetes mellitus type 2 Hypertension History of PE/DVT Hypothyroidism Recent right lower extremity fracture Plan Acute on chronic respiratory failure with respiratory acidosis, hypercapnia, hypoxia: Continue IV steroids. Continue COPD medication. Will discuss with pulmonology. Continue to wean off BiPAP. Anticipate improvement over the next 72 hr. Will review home medication and restart. Will review other medications.. Diabetes mellitus type 2: A.c. HS Accu-Cheks insulin therapy. Review and restart home medication. Hypertension: Continue home medications. History of PE/DVT: Restart home medication Hypothyroidism: Lab abnormal Will confirm dose of home medication and adjust appropriately. Recent right lower extremity fracture: Previously at rehab. Now getting physical therapy at home. Will consult physical therapy to assess and ambulate. Patient will likely require to continue with home health and physical therapy at discharge Time Spent Managing Pts Care (In Minutes): 55
[2020-09-22] MEDS: acetaZOLAMIDE 250 MG TAB PO SCH (15:35)
[2020-09-22] MEDS ORDERED: INSULIN -REGULAR HUMAN 50 UNIT/0.5 ML ML ONE (20:47)
[2020-09-22] MEDS ORDERED: RIVAROXABAN 10 MG TABLET PO ONE (21:00)
[2020-09-22] MEDS ORDERED: RIVAROXABAN 20 MG TABLET PO ONE (21:22)
--- NOTE | 2020-09-22 22:33 | EKG ---
Test Date: 2020-09-21 Test Time: 20:42:18 X Ray Physician: MEASUREMENT RESULTS: Intervals: Rate: 78 WY: 150 QRSD: 88 QT: 376 QTc: 428 [place]: P: 48 WY: 150 QRS: 3 T: 71 INTERPRETIVE STATEMENTS: Normal sinus rhythm Minimal voltage criteria for LVH, may be normal variant Borderline ECG Compared to ECG 06/17/2020 11:41:03 T-wave abnormality no longer present Electronically Signed On 09-22-20 22:29:42 SENIOR EDITOR by Kush Hernández
[2020-09-23] MEDS: METHYLPREDNISOLONE 40 MG INJ IV SCH ×2 (01:04→08:33)
[2020-09-23] MEDS: IPRATROPIUM BROM 0.5MG/2.5ML NEB SCH ×2 (01:45→09:00)
[2020-09-23] MEDS ORDERED: Levofloxacin500mg IV 500 MG/100 ML BAG IV SCH (03:00)
[2020-09-23 06:48] LABS: Basophils % 0.4 % (0-1.3); Lymphocytes % 7.8 % (15.3-44.8); MPV 8.7 fL (7.6-11.3); RBC Red Blood Cell Count 4.97 M/uL (3.86-4.86)
[2020-09-23 07:30] LABS: Magnesium 2.5 mg/dL (1.8-2.4); Potassium 4.5 mmol/L (3.5-5.1)
[2020-09-23 07:40] LABS: Thyroid Stimulating Hormone 68.4 uIU/mL (0.360-3.740)
[2020-09-23] MEDS: INSULIN -REGULAR HUMAN 50 UNIT/0.5 ML ML SQ SCH ×4 (08:33→21:00)
[2020-09-23] MEDS: ENOXAPARIN 40 MG/0.4 ML SQ SCH (08:34)
[2020-09-23] MEDS: levoFLOXacin 500 MG TAB PO SCH (08:34)
[2020-09-23] MEDS: acetaZOLAMIDE 250 MG TAB PO SCH (08:34)
[2020-09-23] MEDS: DULERA 100/5 (MOMETASONE/FORMOTEROL) INHALER IH SCH ×2 (08:35→21:00)
--- NOTE | 2020-09-23 08:41 | RAD REPORT ---
EXAM DESCRIPTION: RAD - Chest Single View - 09/23/2020 6:25 am CLINICAL HISTORY: Respiratory failure COMPARISON: Portable September 21 TECHNIQUE: AP portable chest image was obtained 09/23/2020 6:25 am . FINDINGS: Lung volumes remain low. Interstitial and alveolar opacification in the left lung field st able. The extensive right lung field airspace opacification is fractionally improved in the right upp er lung field. The right mediastinal and cardiac shift, long-standing, increases right base densities . Heart size is normal. Vasculature is stable. No measurable pleural effusion and no pneumothorax. No acute bony abnormality seen. No acute aortic findings suspected. IMPRESSION: Chest examination is mostly stable. There may be slight improvement in the aeration of t he right upper lobe.
[2020-09-23] MEDS ORDERED: ALBUTEROL 2.5 MG/3 ML NEB SOL NEB PRN (09:00)
[2020-09-23 10:43] LABS: Platelet Estimate ADEQ; Platelets, Giant FEW
[2020-09-23 10:44] LABS: Blood Morphology Comment NOT SEEN (NOT SEEN)
--- NOTE | 2020-09-23 10:57 | P.PN ---
Subjective Date of Service: 09/23/20 Primary Care Provider: Dr. Benjamin Chief Complaint: Respiratory failure Subjective: Other (Patient afebrile. Patient doing better.) Physical Examination - Vital Signs Temperature: 97.1 F Blood Pressure: 107/65 Pulse: 63 Respirations: 20 Pulse Ox (%): 97 - Physical Exam General: Alert, In no apparent distress, Oriented x3, Cooperative HEENT: Atraumatic Neck: Supple Respiratory: Clear to auscultation bilaterally, Normal air movement Cardiovascular: Normal pulses, Regular rate/rhythm Gastrointestinal: Normal bowel sounds Neurological: Normal speech, Normal strength at 5/5 x4 extr, Normal tone, Normal affect - Studies Medications List Reviewed: Yes Assessment & Plan Discharge Plan: Home Plan to discharge in: 24 Hours Physician Review Additional Text: Assessment Acute on chronic respiratory failure with respiratory acidosis, hypercapnia, hypoxia Blood cultures positive suspect contaminant Diabetes mellitus type 2 Hypertension History of PE/DVT Hypothyroidism Recent right lower extremity fracture Plan Acute on chronic respiratory failure with respiratory acidosis, hypercapnia, hypoxia: Patient has improved. Will change IV steroid to oral. Continue COPD medication. Set up home oxygen as the patient will likely be discharge in the next 48 hr. Continue to monitor closely. Blood cultures positive but patient significantly improved. Await culture results before discharge. Home medications reviewed in detail. Likely home in the next 24-48 hr. Blood cultures positive suspect contaminant: Patient remains on Levaquin. Patient afebrile. Will check pro calcitonin. Await results of culture. Diabetes mellitus type 2: Continue Accu-Cheks. Home medication reviewed. Discontinue metformin. Will consider other option at discharge. Hypertension: Home medications reviewed. Patient taking multiple medications. Will adjust medication accordingly. Hold blood pressure medication at this time. Discontinue valsartan hydrochlorothiazide. Will consider restarting metoprolol at low dose.. History of PE/DVT on chronic anti coagulation therapy: Xarelto restarted Hypothyroidism: Home medication reviewed. Will increase levothyroxine from 175 mcg to 200 mcg. Lab will need to be recheck in 4-6 weeks to monitor and adjust appropriately. Patient confirms use of medication Recent right lower extremity fracture: Continue physical therapy. Patient will continue with physical therapy at discharge at home. Will adjust pain medication. Home medications reviewed. Will continue with gabapentin. Discon tinue Lyrica. Discontinue NSAID. Time Spent Managing Pts Care (In Minutes): 55
[2020-09-23] MEDS ORDERED: IPRATROPIUM BROM 0.5MG/2.5ML NEB PRN (10:58)
[2020-09-23] MEDS: GABAPENTIN 300 MG CAP PO SCH ×2 (13:47→22:21)
[2020-09-23] MEDS: predniSONE 20 MG TAB PO SCH (22:21)
[2020-09-23] MEDS: RIVAROXABAN 20 MG TABLET PO SCH (22:21)
[2020-09-24] MEDS: LEVOTHYROXINE SOD 0.1 MG TAB PO SCH (06:03)
[2020-09-24 06:18] LABS: Basophils % 0.3 % (0-1.3); Hematocrit 44.6 % (36.0-45.0); Lymphocytes % 8.3 % (15.3-44.8); MPV 8.6 fL (7.6-11.3); RBC Red Blood Cell Count 5.14 M/uL (3.86-4.86)
[2020-09-24 06:30] LABS: Magnesium 2.3 mg/dL (1.8-2.4); Potassium 4.4 mmol/L (3.5-5.1)
[2020-09-24] MEDS ORDERED: LEVOTHYROXINE SOD 0.075 MG TAB PO SCH (06:30)
[2020-09-24] MEDS: INSULIN -REGULAR HUMAN 50 UNIT/0.5 ML ML SQ SCH ×4 (07:30→21:00)
[2020-09-24] MEDS: allopurinoL 100 MG TAB PO SCH (09:00)
[2020-09-24] MEDS ORDERED: HOME MED 1 EA UNK (Folic Acid [Folic Acid] 0.4 MG Tablet) PO SCH (09:00)
[2020-09-24] MEDS: DULERA 100/5 (MOMETASONE/FORMOTEROL) INHALER IH SCH ×2 (09:00→21:35)
--- NOTE | 2020-09-24 10:15 | P.PN ---
Subjective Date of Service: 09/24/20 Primary Care Provider: Dr. Benjamin Chief Complaint: Respiratory failure Subjective: Improving, Doing well Physical Examination - Vital Signs Temperature: 96.3 F Blood Pressure: 121/73 Pulse: 69 Respirations: 18 Pulse Ox (%): 100 - Physical Exam General: Alert, Cooperative HEENT: Atraumatic Neck: Supple Respiratory: Clear to auscultation bilaterally, Other (On 3 L per nasal cannula) Cardiovascular: Normal pulses, Regular rate/rhythm Gastrointestinal: No masses, No rebound, No guarding Neurological: Normal speech, Normal strength at 5/5 x4 extr, Normal tone, Normal affect - Studies Medications List Reviewed: Yes Assessment & Plan Discharge Plan: Home Plan to discharge in: 24 Hours Physician Review Additional Text: Assessment Acute on chronic respiratory failure with respiratory acidosis, hypercapnia, hypoxia Blood cultures positive suspect contaminant Diabetes mellitus type 2 Hypertension History of PE/DVT Hypothyroidism Recent right lower extremity fracture Plan Acute on chronic respiratory failure with respiratory acidosis, hypercapnia, hypoxia: Patient has improved. Continue with COPD medication. Patient has home oxygen. Awaiting blood cultures that had been positive. Staph coagulase- negative noted. Spoke with microbiology today. Results with sensitivities to finalize tomorrow. Patient afebrile. Patient doing well on Levaquin. Anticipate discharge tomorrow after results of antibiotics. I will turn the service over to the hospitalist team tomorrow. I will go plan of care with him. Blood cultures positive suspect contaminant: Blood cultures positive for Staph coagulase negative. Patient remains on Levaquin. Patient remains afebrile. Patient doing well. Final results with sensitivities of blood cultures to come tomorrow. Anticipate likely discharge after results. Patient will likely require 14 days of treatment.. Diabetes mellitus type 2: Continue Accu-Cheks. Home medication reviewed. Discontinue metformin. Will consider other option at discharge. Hypertension: Home medications reviewed. Patient taking multiple medications. Medications have been adjusted. Hold blood pressure medication at this time. Discontinue valsartan hydrochlorothiazide. Will consider restarting metoprolol at low dose if blood pressure becomes elevated. so far blood pressure stable without medication.. History of PE/DVT on chronic anti coagulation therapy: Xarelto restarted Hypothyroidism: Home medication reviewed. Will increase levothyroxine from 175 mcg to 200 mcg. Lab will need to be recheck in 4-6 weeks to monitor and adjust appropriately. Patient confirms use of medication Recent right lower extremity fracture: Continue physical therapy. Patient will continue with physical therapy at discharge at home. Will adjust pain medication. Home medications reviewed. Will continue with gabapentin. Discontinue Lyrica. Discontinue NSAID. Time Spent Managing Pts Care (In Minutes): 55
[2020-09-24] MEDS: acetaZOLAMIDE 250 MG TAB PO SCH (10:28)
[2020-09-24] MEDS: CITALOPRAM 10 MG TABLET PO SCH (10:28)
[2020-09-24] MEDS: FOLIC ACID 1 MG TABLET PO SCH (10:28)
[2020-09-24] MEDS: levoFLOXacin 500 MG TAB PO SCH (10:29)
[2020-09-24] MEDS: predniSONE 20 MG TAB PO SCH ×2 (10:29→21:35)
[2020-09-24] MEDS: GABAPENTIN 300 MG CAP PO SCH ×3 (10:29→21:35)
--- NOTE | 2020-09-24 12:34 | P.PN ---
Subjective Date of Service: 09/24/20 Primary Care Provider: Dr. Benjamin Chief Complaint: Respiratory failure Subjective: Improving (Patient is doing much better she has oxygen at home and bronchodilators blood cultures are positive although she does not look clinically septic) Review of Systems General: Weakness Respiratory: Shortness of Breath Physical Examination - Vital Signs Temperature: 96.3 F Blood Pressure: 121/73 Pulse: 69 Respirations: 18 Pulse Ox (%): 100 - Physical Exam General: Alert Neck: Supple Respiratory: Clear to auscultation bilaterally, Diminished - Studies Medications List Reviewed: Yes Assessment & Plan - Problems (Diagnosis) (1) Acute and chronic respiratory failure ([id number]) Status: Acute Plan: Patient is doing very well she is very alert responsive cooperative wants to go home has home oxygen and bronchodilators blood cultures are positive for coagulase negative Staphylococcus bleak skin contaminant recommend repeating it patient is in no fever oxygenation satisfactory white count is declining CT scan very abnormal significant interstitial lung disease may have underlying infection continue with levofloxacin Qualifiers: Respiratory failure complication: hypoxia and hypercapnia Qualified Code(s): J96.21 - Acute and chronic respiratory failure with hypoxia; J96.22 - Acute and chronic respiratory failure with hypercapnia
[2020-09-24] MEDS: RIVAROXABAN 20 MG TABLET PO SCH (16:54)
[2020-09-25 06:12] LABS: Absolute Lymphocytes (CBC) 0.9 K/uL (0.7-4.9); Basophils % 0.2 % (0-1.3); Hematocrit 43.6 % (36.0-45.0); Lymphocytes % 8.8 % (15.3-44.8); MPV 8.7 fL (7.6-11.3); RBC Red Blood Cell Count 5.01 M/uL (3.86-4.86)
[2020-09-25 06:17] LABS: Magnesium 2.4 mg/dL (1.8-2.4); Potassium 4.5 mmol/L (3.5-5.1)
[2020-09-25] MEDS: LEVOTHYROXINE SOD 0.1 MG TAB PO SCH (06:46)
[2020-09-25] MEDS: INSULIN -REGULAR HUMAN 50 UNIT/0.5 ML ML SQ SCH ×2 (07:30→11:55)
[2020-09-25] MEDS: levoFLOXacin 500 MG TAB PO SCH (08:55)
[2020-09-25] MEDS: FOLIC ACID 1 MG TABLET PO SCH (08:55)
[2020-09-25] MEDS: acetaZOLAMIDE 250 MG TAB PO SCH (08:56)
[2020-09-25] MEDS: allopurinoL 100 MG TAB PO SCH (08:56)
[2020-09-25] MEDS: CITALOPRAM 10 MG TABLET PO SCH (08:57)
[2020-09-25] MEDS: predniSONE 20 MG TAB PO SCH (08:57)
[2020-09-25] MEDS: GABAPENTIN 300 MG CAP PO SCH ×2 (08:57→14:01)
[2020-09-25] MEDS: DULERA 100/5 (MOMETASONE/FORMOTEROL) INHALER IH SCH (08:58)
[2020-09-25 10:54] LABS: Platelet Estimate ADEQ
[2020-09-25 10:55] LABS: Anisocytosis 1+; Basophilic Stippling 1+; Blood Morphology Comment NOTED (NOT SEEN)
[2020-09-25 11:04] VITALS: O2SAT 92
--- NOTE | 2020-09-25 14:20 | P.DS ---
Discharge Date: 09/25/20 Primary Care Provider: Dr. Benjamin Disposition: DC HOME/HOME HEALTH CARE Discharge Condition: GOOD Reason for Admission: Respiratory failure Consultations: Pulmonary Brief History of Present Illness: Patient is a 65-year-old female with history of diabetes mellitus type 2, hypertension, COPD, secondary hypothyroidism presents to the emergency department for shortness of breath. Patient reports that she has been increasingly short of breath over the course of the last 2-3 days. Patient interview kept him enema as she was very tachypneic and dyspneic even on BiPAP. Patient was satting in the 80s on her home oxygen 3 L per nasal cannula. Lab significant for white blood cell count 10.2 with some left shift, elevated pro calcitonin 0.23 TSH 173. Free T4 0.2 ABG shows pH 7.26, CO2 93. Patient on BiPAP, tolerating this well. Patient with history of PE, PE protocol ordered, negative for pulmonary embolism. Negative for COVID. ED provider wishes to admit patient for further evaluation and management. Patient does not appear septic Hospital Course: Patient has done well during hospital stay. Patient blood cultures did reveal Staphylococcus epidermidis. Patient was given IV antibiotic therapy. Patient has done well during hospital stay. We changed to oral antibiotics and discharged with outpatient follow up. Vital Signs/Physical Exam: Temp Pulse Resp BP Pulse Ox 97.9 F 85 16 105/55 L 94 09/25/20 11:50 09/25/20 11:50 09/25/20 11:50 09/25/20 11:50 09/25/20 11:50 General: Alert, In no apparent distress, Oriented x3 Laboratory Data at Discharge: WBC 9.7 K/uL (4.3-10.9) D 09/25/20 05:15 Hgb 13.1 g/dL (12.0-15.0) 09/25/20 05:15 Hct 43.6 % (36.0-45.0) 09/25/20 05:15 Plt Count 167 K/uL (152-406) 09/25/20 05:15 PT 12.1 SECONDS (9.5-12.5) 09/21/20 21:04 INR 1.03 09/21/20 21:04 Sodium 142 mmol/L (136-145) 09/25/20 05:15 Potassium 4.5 mmol/L (3.5-5.1) 09/25/20 05:15 BUN 46 mg/dL (7-18) H 09/25/20 05:15 Creatinine 0.97 mg/dL (0.55-1.3) 09/25/20 05:15 Glucose 129 mg/dL (74-106) H 09/25/20 05:15 Magnesium 2.4 mg/dL (1.8-2.4) 09/25/20 05:15 Total Bilirubin 0.4 mg/dL (0.2-1.0) 09/21/20 21:04 AST 20 U/L (15-37) 09/21/20 21:04 ALT 24 U/L (12-78) 09/21/20 21:04 Alkaline Phosphatase 69 U/L (45-117) 09/21/20 21:04 Home Medications: ALPRAZolam [Alprazolam] 1 mg PO TID PRN 02/12/18 Furosemide [Lasix*] 20 mg PO DAILY 02/12/18 Zolpidem Tartrate [Ambien*] 10 mg PO BEDTIME PRN 02/12/18 Citalopram [Celexa*] 20 mg PO DAILY 03/24/18 allopurinoL [Zyloprim*] 1 tab PO DAILY 03/24/18 Folic Acid 1 mg PO DAILY 04/05/20 Rivaroxaban [Xarelto*] 20 mg PO DAILY AT SUPPER #7 tablet 04/05/20 Tizanidine [Zanaflex*] 4 mg PO Q6HP PRN 04/05/20 Etodolac [Lodine] 400 mg PO BID 09/22/20 Gabapentin 300 mg PO TID 09/22/20 Levothyroxine Sodium [Levothyroxine] 175 mcg PO DAILY 09/22/20 Metoprolol Succinate [Toprol Xl] 100 mg PO DAILY 09/22/20 Pregabalin 150 mg PO BID 09/22/20 predniSONE [Prednisone*] 10 mg PO BID 09/22/20 Levothyroxine [Synthroid*] 0.2 mg PO DAILYAC #60 tab 09/25/20 Minocycline HCl 100 mg PO BID #14 capsule 09/25/20 Smz./Tmp. [Bactrim Ds 800 MG/160 MG*] 1 tab PO DAILY #7 tab 09/25/20 acetaZOLAMIDE [Diamox*] 250 mg PO DAILY #30 tab 09/25/20 New Medications: Smz./Tmp. [Bactrim Ds 800 MG/160 MG*] 1 tab PO DAILY #7 tab acetaZOLAMIDE [Diamox*] 250 mg PO DAILY #30 tab Minocycline HCl 100 mg PO BID #14 capsule Levothyroxine [Synthroid*] 0.2 mg PO DAILYAC #60 tab Patient Discharge Instructions: OK TO DC IV AND DC HOME. FOLLOW-UP WITH PRIMARY CARE PROVIDER IN 1-2 WEEKS. FOLLOW-UP WITH CARDIOLOGY IN 1-2 WEEKS. FOLLOW-UP WITH Pulmonary IN 1-2 WEEKS. RETURN TO THE ER IF symptoms worsened. CALL or TEXT DR. SANCHEZ AT [phone] IF ANY QUESTIONS REGARDING HOSPITAL STAY. PLEASE CALL THE FLOOR AT [phone] IF ANY MEDICATION OR NURSING QUESTIONS. Diet: AHA Activity: Fall precautions Followup: German Villarreal MD [ACTIVE - CAN ADMIT] - Kush Hernández MD [ACTIVE - CAN ADMIT] - Arthur Fong MD [Primary Care Provider] - Time spent managing pt's care (in minutes): 35
[2020-09-25] MEDS ORDERED: SMZ./TMP. 800/160 MG TABLET PO SCH (15:00)
[2020-09-25] MEDS ORDERED: MINOCYCLINE HCL 50 MG CAP PO SCH (15:00)
[2020-10-05 21:49] VITALS: BP 121/73; TEMP 96.3
== END 2020-09-25 16:24 | disposition home health service (06) | DRG 189 ==
LOC: ER 19:35 → ERHOLD 09-22 03:46 → 2ND 09-23 00:20
PROVIDERS: ADMIT Family Medicine; ATTEND Hospitalist
PROC: 5A09357 Assistance with Respiratory Ventilation, Less than 24 Consecutive Hours, Continuous Positive Airway Pressure (ICD-10-PCS; principal; 2020-09-22)
DX: J96.21 Acute and chronic respiratory failure with hypoxia (principal); J18.0 Bronchopneumonia, unspecified organism; J44.1 Chronic obstructive pulmonary disease with (acute) exacerbation; E87.2 Acidosis; J44.0 Chronic obstructive pulmonary disease with (acute) lower respiratory infection; J96.22 Acute and chronic respiratory failure with hypercapnia; E03.9 Hypothyroidism, unspecified; E11.9 Type 2 diabetes mellitus without complications; I10 Essential (primary) hypertension; S82.91XD Unspecified fracture of right lower leg, subsequent encounter for closed fracture with routine healing; Z86.711 Personal history of pulmonary embolism; Z99.81 Dependence on supplemental oxygen; Z86.718 Personal history of other venous thrombosis and embolism; Z98.51 Tubal ligation status; Z79.52 Long term (current) use of systemic steroids; Z79.01 Long term (current) use of anticoagulants; Z79.890 Hormone replacement therapy; Z20.822 Contact with and (suspected) exposure to COVID-19; Z23 Encounter for immunization
CPT/HCPCS: 0240U; 36415; 71045; 71275; 80048; 80076; 82805; 82947; 83605; 83735; 83880; 84145; 84439; 84443; 84484; 85025; 85379; 85610; 87040; 87077; 87186; 87205; 90471; 93005; 94640; 94660; 96374; 96375; 97110; 97162; 97165; 97530; 97535; 99285; J1650; J2920; J2930; J7512; J7606; Q2035; Q9967

== ENCOUNTER 2020-11-27 15:48 | Inpatient (IN) | payer OTHER ==
--- OUTSIDE RECORDS SUMMARY | 2020-11-27 15:54 | XMS REPORT | Continuity of Care Document ---
:1955 Author Organization [facility] t Address [address] [place] [place] [address] Support Name Relationship Address Phone Sandip Spouse [address] [phone] [place] [address] Librado Child [address] [place] [address] L Sandip Spouse [address] [place] [address] [place] [address] Care Team Providers Name Role Phone Sharonda Fong Primary Care Physician Ajit BORREGO Attending Clinician Luis Doyle DO Attending Clinician Doctor Unassigned, Name Attending Clinician Unavailable Kimberly Shrestha MD Attending Clinician [phone] Saadia BORREGO Attending Clinician Dakotah BORREGO Attending Clinician Manjinder Nation MD Attending Clinician Kee Littlejohn MD Attending Clinician Jean-Pierre BORREGO, Basilio Attending Clinician Rodrick BORREGO Attending Clinician KIMBERLY SHRESTHA Attending Clinician Unavailable GAL MULLEN Attending Clinician Unavailable SAADIA Admitting Clinician Unavailable GAL MULLEN Admitting Clinician Unavailable Payers Payer Name Policy Type Policy Effective Date Expiration Date Sour ce Number [employer] MEDICARE [id number] 2019 GERBER Manzanares MGD CAREWELLCARE 00:00:00 - Medica l [id number] Center 20-Present CIGNA - MGD [id number] 2003 GERBER Lieberman s CARECIGNA 00:00:00 - Medical HMO/POS/OPEN Center [id number] -Present HMO/POS Problems Condition Condition Condition Status Onset Resolution Last Treating Co mments Source Name Details Category Date Date Treatment Clinician Date Chronic Chronic Problem Active [facility] obstructiv Obstructiv 1-25 Fa lana e lung e Lung 00:00: Practic disease Disease 00 e Essential Essential Problem Active Diaz isabella hypertensi Hypertensi 1-22 Fa lana on on 00:00: Practic 00 e Chronic Chronic Problem Active [facility] kidney Kidney 1- Family disease Disease 00:00: Practic stage 3 Stage 3 00 e Chronic Chronic Problem Active [facility] kidney Kidney -22 Family disease Disease 00:00: Practic due to Due to 00 e type 2 Type 2 diabetes Diabetes mellitus Mellitus Closed Closed Disease Active 2019-[address] [facility] [...] 0-03 Amy kes - 00:00: Medical 00 Center HTN HTN Disease Active 2019-[address] [facility] (hypertens (hypertens 0-03 Amy kes - ion) ion) 00:00: Medical 00 Center Acquired Acquired Disease Active 2019-[facility] hypothyroi hypothyroi 0-03 Amy kes - dism dism 00:00: Medical 00 Center VTE VTE Disease Active 2019-[address] [...] Practic 00 e Chronic Chronic Problem Active [facility] gout Gout 1-17 Family without without 00:00: Practic tophus Tophus 00 e Chronic Chronic Problem Active 2016-09 [facility] low back Low Back 2-12 Family pain Pain 00:00: Practic 00 e Osteoarthr Osteoarthr Problem Active [facility] itis itis 5-03 Family 00:00: Practic 00 e Leukocytos Leukocytos Disease Active [facility] is is 2-16 [facility] DM DM Disease Active [facility] (diabetes (diabetes 2-16 Luke s - mellitus), mellitus), 00:00: Me dical type 2 type 2 00 Center Diverticul Diverticul Disease Active [facility] itis itis 2-15 [facility] - 00:[facility]: Medical 00 Center Benign Benign Problem Active 2006-09 [facility] essential Essential 0-11 Fami ly hypertensi Hypertensi 00:00: Pr actic on on 00 e Type 2 Type 2 Problem Active 2006-09 [facility] diabetes Diabetes 0-11 Family mellitus Mellitus 00:00: Practi c 00 e Allergies, Adverse Reactions, Alerts This patient has no known allergies or adverse reactions. Social History Social Habit Start Date Stop Date Quantity Comments Source Sex Assigned At [facility] Re[facility] Alcohol intake 2020-06-26 2020-06-[address] [facility] [address] [place] es - 00:00:00 00:00:00 Medical Center Smoking Status Start Date Stop Date Source Never smoker [facility] St kes - edical Center Medications Ordered Filled Start Stop Current Ordering Indication Dosage Frequency Signature Comments Components Source Medication Medication Date Date Medication? Clinician (SIG) Name Name enathybrea 2019-09 Yes 175ug Take [address] [facility] ne 0-12 tablet [facility] - (SYNTHROID, 00:00: (175 mcg Me dical LEVOTHROID) 00 total) by [facility] ter 175 MCG mouth tablet Every [...] mouth Center daily with dinner. senna 2019-09- No 8.6mg Take [address] (SENOKOT) 0-12 10-12 tablet [facility] - 8.6 mg 00:00: 23:59 (8.6 mg Medical tablet 00 :00 total) by Center mouth every night as needed for Constipati on. gabapentin 2019-09- No 300mg Q.5D Take [address] [facility] (NEURONTIN) 0-12 10-12 capsule Luke s - 300 MG 00:00: 23:59 (300 mg Medical capsule 00 :00 total) by Center mouth 2 (two) times daily. ipratropium 2019-09- No 3mL Take [address] -albuteroL 0-12 10-07 by Marycruz - (DUO-NEB) 00:00: 23:59 nebulizati M edical 0.5 mg-3 00 :00 on every 4 Cente r mg(2.5 mg (four) base)/3 mL hours for nebulizer 360 days. solution HYDROcodone 2019-09 No 1{tbl} Take [address] [...] 10 days. Max Daily Amount: 4 tablets tizanidine tizanidine No tizanidine [facility] 4 mg tablet 4 mg tablet 5-11 4 mg F amily and and 00:00: tablet and Practic irritant-co irritant-co 00 irritant-c e unter unter ounter irritant irritant irritant comb.no.2 comb.no.2 comb.no.2 gel kit gel kit gel kit hydrochloro hydrochloro 2018-09 No hydrochlor [place] thiazide thiazide 0-02 othiazide Fa lana 12.5 mg 12.5 mg 00:00: 12.5 mg Prac tic capsule capsule 00 capsule e valsartan-h 2019- No [facility] ydrochlorot 16 - [facility] - hiazide 00:00: 00:00 Medical (DIOVAN-HCT 00 :00 Center ) 320-25 mg per tablet HEMATINIC/F Yes [facility] OLIC ACID -02 [facility] - 324 mg (106 00:00: Medica l mg iron)-1 00 Center mg Tab citalopram 2015-[address] (CELEXA) 20 2-03 [facility] - MG tablet 00:00: Medical 00 Center furosemide 2015-09- No [facility] (LASIX) 20 2-03 10-12 [facility] - MG tablet 00:00: 00:00 Medical 00 :00 Center levothyroxi 2015-09- No [facility] ne 2-11 22- [facility] - (SYNTHROID, 00:00: 00:00 Medic al LEVOTHROID) 00 :00 Center 150 MCG tablet metoprolol 2015-09- No [facility] (LOPRESSOR) 2- [facility] - 50 MG 00:00: 00:00 Medical tablet 00 :00 Center potassium 2015-09- No [facility] citrate 206-26 [facility] - (UROCIT-K) 00:00: 00:00 Medica l 10 mEq 00 :00 Lennon (1,080 mg) SR tablet zolpidem 2015- Yes GERBER Mendieta (UMESH) 10 10-16 [facility] - mg tablet 00:00: Medical 00 [place]on acetazolami acetazolami No acetazolam [facility] de 250 mg de 250 mg vesna 250 mg Family tablet TAKE tablet TAKE tablet Practic 1 TABLET BY 1 TABLET BY TAKE 1 e MOUTH EVERY MOUTH EVERY TABLET BY DAY DAY MOUTH EVERY DAY albuterol albuterol No albuterol [facility] sulfate 2.5 sulfate 2.5 sulfate Family mg/3 mL mg/3 mL 2.5 mg/3 Pract ic (0.083 %) (0.083 %) mL (0.083 e solution solution %) for for solution nebulizatio nebulizatio for n n nebulizati on albuterol albuterol No albuterol [facility] sulfate HFA sulfate HFA sulfate Family 90 90 HFA 90 Practic mcg/actuati mcg/actuati mcg/actuat e on aerosol on aerosol ion inhaler inhaler aerosol inhaler allopurinol allopurinol No allopurino [facility] 100 mg 100 mg l 100 mg Family tablet TAKE tablet TAKE tablet Practic 1 TABLET BY 1 TABLET BY TAKE 1 e MOUTH EVERY MOUTH EVERY TABLET BY DAY DAY MOUTH EVERY DAY alprazolam alprazolam No alprazolam [facility] 1 mg tablet 1 mg tablet 1 mg F amily TAKE 1 TAKE 1 tablet Practic TABLET BY TABLET BY TAKE 1 e MOUTH 3 MOUTH 3 TABLET BY TIMES A DAY TIMES A DAY MOUTH 3 NEEDED NEEDED TIMES A FOR OTHER ( FOR OTHER ( DAY ANXIETY) ANXIETY) NEEDED FOR OTHER ( ANXIETY) amoxicillin amoxicillin No amoxicilli [facility] [phone] Family mg-potassiu mg-potassiu mg-potassi Practic m m um e clavulanate clavulanate clavulanat 125 mg 125 mg e 125 mg tablet tablet tablet azithromyci azithromyci No azithromyc [facility] n 250 mg n 250 mg in 250 mg Fa lana tablet tablet tablet Practic e [facility]zonatate [facility] mg e 200 mg Family capsule capsule capsule Practi c e Breo Breo No Breo [facility] Ellipta 200 Ellipta 200 Ellipta Family mcg-25 mcg-25 200 mcg-25 Pract ic mcg/dose mcg/dose mcg/dose e powder for powder for powder for inhalation inhalation inhalation citalopram citalopram No citalopram [facility] 20 mg 20 mg 20 mg Family tablet tablet tablet Practic e clobetasol clobetasol No clobetasol [facility] 0.05 % 0.05 % 0.05 % Family topical topical topical Practi c ointment ointment ointment e cyclobenzap cyclobenzap No cyclobenza [facility] rine 7.5 mg rine 7.5 mg [...] by oral route. fluconazole fluconazole No fluconazol [facility] 150 mg 150 mg e 150 mg Family tablet tablet tablet Practic e furosemide furosemide No furosemide [facility] 20 mg 20 mg 20 mg Family tablet 20 tablet 20 tablet 20 Practic mg by oral mg by oral mg by oral e route. route. route. gabapentin gabapentin No gabapentin [facility] 300 mg 300 mg 300 mg Family capsule capsule capsule Practi c e Hematinic/F Hematinic/F No Hematinic/ Village olic Acid olic Acid Folic Acid Family 324 mg (106 324 mg (106 324 mg Practic mg iron)-1 mg iron)-1 (106 mg e mg tablet mg tablet iron)-1 mg 1 {tbl} by 1 {tbl} by tablet 1 oral route. oral route. {tbl} by oral route. hydrocodone hydrocodone No hydrocodon [facility] 10 10 e 10 Family mg-acetamin mg-acetamin mg-acetami Practic ophen 325 ophen 325 nophen 325 e mg tablet mg tablet mg tablet TAKE ONE TAKE ONE TAKE ONE (1) TABLET (1) TABLET (1) TABLET BY MOUTH BY MOUTH BY MOUTH EVERY 4 EVERY 4 EVERY 4 (FOUR) (FOUR) (FOUR) HOURS HOURS HOURS NEEDED FOR NEEDED FOR NEEDED FOR PAIN (SCALE PAIN (SCALE PAIN 4-6) OR 4-6) OR (SCALE PAIN (SCALE PAIN (SCALE 4-6) OR 7-10). 7-10). PAIN (SCALE 7-10). levothyroxi levothyroxi No levothyrox [facility] ne 100 mcg ne 100 mcg ine 100 Family tablet TAKE tablet TAKE mcg tablet Practic 2 TABLETS 2 TABLETS TAKE 2 e BY MOUTH BY MOUTH TABLETS BY EVERY DAY EVERY DAY MOUTH BEFORE A BEFORE A EVERY DAY MEAL MEAL BEFORE A MEAL levothyroxi levothyroxi No levothyrox [facility] ne 175 mcg ne 175 mcg ine 175 Family tablet TAKE tablet TAKE mcg tablet Practic 1 TABLET BY 1 TABLET BY TAKE 1 e MOUTH EVERY MOUTH EVERY TABLET BY DAY IN THE DAY IN THE MOUTH MORNING MORNING EVERY DAY IN THE MORNING levothyroxi levothyroxi No 1 Q1D levothyrox [facility] ne 75 mcg ne 75 mcg ine 75 mcg Family tablet Take tablet Take tablet Practic 1 tablet 1 tablet Take 1 e every day every day tablet by oral by oral every day route. route. by oral route. metformin metformin No metformin [facility] 500 mg 500 mg 500 mg Family tablet tablet tablet Practic e methylpredn methylpredn No methylpred [facility] isolone 4 isolone 4 nisolone 4 Family mg tablets mg tablets mg tablets Practic in a dose in a dose in a dose e pack pack pack metoprolol metoprolol No metoprolol [facility] succinate succinate succinate Family ER 50 mg ER 50 mg ER 50 mg Pra ctic tablet,exte tablet,exte tablet,ext e nded nded ended release 24 release 24 release 24 hr 50 mg hr 50 mg hr 50 mg by oral by oral by oral route. route. route. minocycline minocycline No minocyclin [facility] 100 mg 100 mg e 100 mg Family capsule capsule capsule Practi c TAKE 1 TAKE 1 TAKE 1 e CAPSULE BY CAPSULE BY CAPSULE BY MOUTH TWICE MOUTH TWICE MOUTH A DAY A DAY TWICE A DAY potassium potassium No potassium [facility] citrate ER citrate ER citrate ER [facility] 10 mEq 10 mEq 10 mEq Practic (1,080 mg) (1,080 mg) (1,080 mg) e tablet,exte tablet,exte tablet,ext nded nded ended release release release prednisone prednisone No prednisone [facility] 10 mg 10 mg 10 mg Family tablet tablet tablet Practic e pregabalin pregabalin No pregabalin [facility] 150 mg 150 mg 150 mg Family capsule capsule capsule Practi c e ProAir ProAir No ProAir [facility] RespiClick RespiClick RespiClick Family 90 90 90 Practic mcg/actuati mcg/actuati mcg/actuat e on breath on breath ion breath activated activated activated sulfamethox sulfamethox No sulfametho [facility] azole 800 azole 800 xazole 800 Family mg-trimetho mg-trimetho mg-trimeth Practic prim 160 mg prim 160 mg oprim 160 e tablet TAKE tablet TAKE mg tablet 1 TABLET BY 1 TABLET BY TAKE 1 MOUTH EVERY MOUTH EVERY TABLET BY DAY DAY MOUTH EVERY DAY tizanidine tizanidine No 1capsul Q6H tizanidine [facility] 4 mg 4 mg e(s) 4 mg Family capsule capsule capsule Practi c Take 1 Take 1 Take 1 e capsule capsule capsule every 6 every 6 every 6 hours by hours by hours by oral route. oral route. oral route. [facility]olo [facility] one Family acetonide acetonide acetonide Practic 0.147 0.147 0.147 e mg/gram mg/gram mg/gram topical topical topical aerosol aerosol aerosol valsartan valsartan No 1 Q1D valsartan [facility] 320 320 320 Family mg-hydrochl mg-hydrochl mg-hydroch Practic orothiazide orothiazide lorothiazi e 12.5 mg 12.5 mg de 12.5 mg tablet Take tablet Take tablet 1 tablet 1 tablet Take 1 every day every day tablet by oral by oral every day route. route. by oral route. valsartan valsartan No [facility] 320 320 320 Family mg-hydrochl mg-hydrochl mg-hydroch Practic orothiazide orothiazide lorothiazi e 25 mg 25 mg de 25 mg tablet TAKE tablet TAKE tablet 1 TABLET BY 1 TABLET BY TAKE 1 MOUTH EVERY MOUTH EVERY TABLET BY DAY DAY MOUTH EVERY DAY Wixela Wixela No Wixela [facility] Inhub 250 Inhub 250 Inhub 250 Family mcg-50 mcg-50 mcg-50 Practic mcg/dose mcg/dose mcg/dose e powder for powder for powder for inhalation inhalation inhalation Xarelto 20 Xarelto 20 No Xarelto 20 Village mg tablet mg tablet mg tablet Family TAKE 1 TAKE 1 TAKE 1 Practic TABLET BY TABLET BY TABLET BY e MOUTH EVERY MOUTH EVERY MOUTH DAY DAY EVERY DAY zolpidem 10 zolpidem 10 No zolpidem [facility] mg tablet mg tablet 10 mg Fami ly 10 mg by 10 mg by tablet 10 P ractic oral route. oral route. mg by oral e route. Immunizations Ordered Immunization Filled Immunization Date Status Commen ts Source Name Name influenza, influenza, 2019-06-15 Completed [place] injectable, injectable, 00:00:00 Practice quadrivalent quadrivalent Vital Signs Vital Name Observation Time Observation Value Comments Source Height 2020-10-09 00:00:00 68 [in_i] [facility] BMI (Body Mass Index) 2020-10-09 00:00:00 39.4 kg/m2 [facility] Body Weight 2020-10-09 00:00:00 259 [lb_av] [facility] Height 2020-06-12 00:00:00 68 [in_i] [facility] Height 2020-05-24 00:00:00 68 [in_i] [facility] Height 2020-03-08 00:00:00 68 [in_i] [facility] BMI (Body Mass Index) 2020-03-08 00:00:00 35 kg/m2 [facility] Body Weight 2020-03-08 00:00:00 230 [lb_av] [facility] Systolic blood 2020-06-26 16:12:00 132 mm[Hg] [facility] Diastolic blood 2020-06-26 16:12:00 68 mm[Hg] [facility] Heart rate 2020-06-26 16:12:00 103 /min [facility] Body temperature 2020-06-26 16:12:00 36.39 Cassy [facility] Respiratory rate 2020-06-26 16:12:00 18 /min [facility] Oxygen saturation in 2020-06-26 16:12:00 96 /min [facility] Arterial blood by Medical Ce nter Pulse oximetry Body height 2020-06-17 16:00:00 175.3 cm [facility] Body weight 2020-06-17 16:00:00 139.708 kg [facility] BMI 2020-06-17 16:00:00 45.48 kg/m2 [facility] Procedures Procedure Date / Time Performing Clinician Source Performed POCT-GLUCOSE METER 2020-06-26 16:17:00 Luke Claire [facility] POCT-GLUCOSE METER 2020-06-26 12:37:00 Luke Claire [facility] POCT-GLUCOSE METER 2020-06-26 08:33:00 [facility] AUTO 2020-06-26 04:16:00 Dakotah [facility] BASIC METABOLIC PANEL (7) 2020-06-26 04:16:00 Luke Claire [facility] POCT-GLUCOSE METER 2020-06-25 20:45:00 [facility] 2020-06-25 16:22:00 Dakotah [facility] POCT-GLUCOSE METER 2020-06-25 12:02:00 [facility] 2020-06-25 07:53:00 Dakotah [facility] POCT-GLUCOSE METER 2020-06-25 05:55:00 [facility] W/PLT COUNT & AUTO 2020-06-25 03:33:00 Dakotah [facility] POCT-GLUCOSE METER 2020-06-25 00:28:00 Dakotah [facility] POCT-GLUCOSE METER 2020-06-24 17:55:00 Dakotah [facility] POCT-GLUCOSE METER 2020-06-24 11:54:00 Dakotah [facility] POCT-GLUCOSE METER 2020-06-24 08:36:00 Dakotah [facility] CBC W/PLT COUNT & AUTO 2020-06-24 04:38:00 Dakotah [facility] POCT-GLUCOSE METER 2020-06-23 21:15:00 Dakotah [facility] POCT-GLUCOSE METER 2020-06-23 11:07:00 Dakotah [facility] [place] FLUORO NON-SPECIFIC UP 2020-06-23 08:12:00 [place] [facility] TO 1 HOUR [facility] CLOSED REDUCTION,SHOULDER 2020-06-23 07:34:00 [place] [place] [facility] POCT-GLUCOSE METER 2020-06-23 05:28:00 Dakotah [facility] POCT-GLUCOSE METER 2020-06-22 22:16:00 Dakotah [facility] ECG 12-LEAD 2020-06-22 21:21:16 Ana Leonardo [facility] HEMOGLOBIN AND HEMATOCRIT 2020-06-22 17:41:00 Dakotah [facility] POCT-GLUCOSE METER 2020-06-22 11:30:00 Dakotah [facility] POCT-GLUCOSE METER 2020-06-22 06:46:00 Dakotah [facility] CBC W/PLT COUNT & AUTO 2020-06-22 04:41:00 [facility] BASIC METABOLIC PANEL (7) 2020-06-22 04:41:00 Dakotah [facility] LACTIC ACID, VENOUS 2020-06-22 04:41:00 Dakotah [facility] POCT-GLUCOSE METER 2020-06-22 00:01:00 [facility] TRANSFUSION SERVICE 2020-06-21 18:01:23 Shanon Hawthorne [facility] REPORT - SCAN Scanning [facility] POCT-GLUCOSE METER 2020-06-21 15:24:00 Dakotah [facility] POCT-GLUCOSE METER 2020-06-21 12:28:00 [facility] CBC (HEMOGRAM ONLY) 2020-06-21 10:43:00 Alen Morejon [facility] POCT-GLUCOSE METER 2020-06-21 09:45:00 Dakotah [facility] [place] FLUORO NON-SPECIFIC UP 2020-06-21 08:50:00 [place] TO 1 HOUR [facility] ORIF,FEMUR 2020-06-21 07:17:00 [place] [facility] PROCEDURE W/ C-ARM 2020-06-21 07:17:00 [place] [facility] PREPARE LEUKO-REDUCED RBC 2020-06-20 23:54:[address] [facility] POCT-GLUCOSE METER 2020-06-20 23:34:00 Herve Zee [facility] POCT-GLUCOSE METER 2020-06-20 18:39:00 [facility] 2020-06-20 18:21:03 ProviderShanon [facility] REPORT - SCAN Scanning [facility] XR PELVIS 1 OR 2 VIEWS 2020-06-20 18:13:00 [place] [facility] XR ELBOW LEFT (MIN 3 2020-06-20 17:26:00 Herve Zee [facility] XR SHOULDER 1 VIEW LEFT 2020-06-20 17:26:00 Herve Zee [facility] NM MYOCARD IMAGING MULTI 2020-06-20 15:41:00 Elizabeth Butler CH I [facility] - PHARM PLANAR [facility] POCT-GLUCOSE METER 2020-06-20 12:20:00 Herve Zee [facility] POCT-GLUCOSE METER 2020-06-20 06:07:00 Herve Zee [facility] COMPREHENSIVE METABOLIC 2020-06-20 04:32:[address] [facility] VITAMIN B12 AND FOLATE 2020-06-20 04:32:00 Ana Leonardo [facility] CALCIUM, IONIZED 2020-06-20 04:32:00 Herve Zee [facility] PHOSPHORUS 2020-06-20 04:32:00 Herve Zee [facility] MAGNESIUM 2020-06-20 04:32:00 Herve Zee [facility] CBC W/PLT COUNT & AUTO 2020-06-20 04:32:00 Herve Zee [facility] POCT-GLUCOSE METER 2020-06-19 21:05:00 Herve Zee [facility] TRANSFUSE LEUKO-REDUCED 2020-06-19 20:26:24 Scot Shaver [facility] - RED BLOOD CELLS [facility] TRANSFUSION SERVICE 2020-06-19 18:00:37 ProviderShanon [facility] REPORT - SCAN Scanning [facility] POCT-GLUCOSE METER 2020-06-19 13:05:00 Herve Zee [facility] TREADMILL 2020-06-19 09:45:13 Unknown, 7 Doctor [facility] TOLERANCE(NON-NUCLEAR Medical Ce nter TREADMILL) ECG 12-LEAD 2020-06-19 09:41:18 Unknown, 7 Doctor [facility] ECG 12-LEAD 2020-06-19 09:24:29 Unknown, 7 [facility] POCT-GLUCOSE METER 2020-06-19 05:47:00 Herve Zee [facility] SARS-COV2/RT-PCR ([facility] & 2020-06-19 05:13:00 Alyce Donnelly [facility] - REF LABS) [facility] CALCIUM, IONIZED 2020-06-19 03:54:00 Herve Zee [facility] CBC W/PLT COUNT & AUTO 2020-06-19 03:54:00 Herve Zee CH I [facility] COMPREHENSIVE METABOLIC 2020-06-19 03:53:[address] [facility] PHOSPHORUS 2020-06-19 03:53:00 Herve Zee [facility] MAGNESIUM 2020-06-19 03:53:00 Herve Zee [facility] ABORH, MANUAL 2020-06-18 22:08:00 Yas Poole [facility] POCT-GLUCOSE METER 2020-06-18 21:34:00 [facility] TYPE AND SCREEN, 2020-06-18 17:02:00 SivakumarScot moran [facility] es - AUTOMATED [facility] POCT-GLUCOSE METER 2020-06-18 15:58:00 Herve Zee [facility] POCT-GLUCOSE METER 2020-06-18 11:07:00 [facility] TROPONIN I 2020-06-18 09:31:00 [facility] 2020-06-18 07:58:00 [facility] TROPONIN I 2020-06-18 05:44:00 [facility]ON[facility]ED 2020-06-18 05:44:00 Herve Zee [facility] PHOSPHORUS 2020-06-18 05:44:00 [facility] W/PLT COUNT & AUTO 2020-06-18 05:44:00 Herve Zee CH, I [facility] MAGNESIUM 2020-06-18 05:44:00 [facility] A1C 2020-06-18 05:44:00 [facility]FREE T4 IF INDICATED 2020-06-18 05:44:00 Herve Zee [facility] COMPREHENSIVE METABOLIC 2020-06-18 05:44:[address] [facility] B-TYPE NATRIURETIC FACTOR 2020-06-18 05:44:00 Herve Zee [facility] (BNP) [facility] T4, FREE 2020-06-18 05:44:00 Herve Zee [facility] 2D ECHO W/ DOPPLER 2020-06-17 22:02:[address] [facility] POCT-GLUCOSE METER 2020-06-17 21:40:00 Herve Zee [facility] CBC W/PLT COUNT & AUTO 2020-06-17 21:07:00 H[address] Zee [facility] - DIFFERENTIAL [facility] COMPREHENSIVE METABOLIC 2020-06-17 21:07:00 Herve Zee [facility] - PANEL [facility] ECG 12-LEAD 2020-06-17 20:01:42 Herve Zee [facility] Leg Surgery Procedure [place] [facility] Practice Percutaneous Extraction [facility] [facility] Fragmentation Procedure Plan of Care Planned Activity Planned Date Details Comments Source Future Scheduled Test 2028-10-21 DTAP/TDAP/TD VACCINES [facility] (2 - Td) [code = Medical [facility] ter DTAP/TDAP/TD VACCINES (2 - Td)] Future Scheduled Test 2020-12-17 Hemoglobin A1c [facility] - [facility]:00 measurement [facility] (procedure) [code = 78048035] Future Scheduled Test 2020-09-[address] [facility] - 00:00:00 WELLNESS (YEAR 2 or Medical Center FIRST YEAR if no IPPE) [code = MEDICARE ANNUAL WELLNESS (YEAR 2 or FIRST YEAR if no IPPE)] Future Scheduled Test 2020-09-15 DEPRESSION SCREENING [facility] - 00:[facility]:00 (12+) [code = Medical Center DEPRESSION SCREENING (12+)] Future Scheduled Test 2020-05-16 INFLU[address]ZA VACC[address] [facility] (#1) [code = [facility] INFLUENZA VACCINE (#1)] Future Scheduled Test 2006 SHINGLES VACCINES ([address] [facility] - 00:00:00 of 2) [code = [facility] SHINGLES VACCINES (1 of 2)] Future Scheduled Test [address] [facility] - 00:00:00 (procedure) [code = Medical Center 08153543] Future Scheduled Test 1977 [facility] malignant ne[facility] of [facility] cervix (procedure) [code = 489879000] Future Scheduled Test 1974 HEPATITIS C SCRE[facility]ING [facility] - 00:[facility]:00 [code = HEPATITIS C Medical Center SCREENING] Future Scheduled Test 1966 DIABETIC EYE EXAM [facility] [code = DIABETIC EYE Medical Center EXAM] Future Scheduled Test 1966 [facility] foot [facility] examination [facility] Center (regime/therapy) [code = 035763071] Future Scheduled Test 1966 Urine screening for [facility] - 00:[facility]00 protein (procedure) Medical Center [code = 199040986] Future Scheduled Test [address] [facility] - 00:00:00 0-64 YRS (1 of 1 - Medical C enter PPSV23) [code = PNEUMOCOCCAL VACCINE 0-64 YRS (1 of 1 - PPSV23)] Future Scheduled Test 1956 [facility] breast (procedure) [code = 045351937] Future Scheduled Test [facility] of [facility] colon (procedure) [code = 865190719] Future Appointment 2021-04-08 Prudence Ilia-Jc, Corine illage Family 00:00:00 [address]; [address], [place] [address] Encounters Start End Encounter Admission Attending Care Care Encounter Source Date/Time Date/Time Type Type Clinicians Facility Department ID 2020-11-21 2020-11-21 Telephone SOWMYA Fong [id number] 00:00:00 00:00:00 [facility] [id number] [place] 4.2.7.2.686 Professio [phone] nal 044 Office Building One 2020-11-21 2020-11-21 Patient SOWMYA Doyle [id number] 00:00:00 00:00:00 Outreach [facility] [id number] [facility] 4.2.7.2.686 PAVILLION [phone] [id number] 2020-11-21 2020-11-21 Refkathrin Fong [facility] [id number] 00:00:00 00:00:00 [facility] [id number] [place] 4.2.7.2.686 Professio [phone] [place] [address] Office [facility] One 2020-11-16 2020-11-16 [facility] [id number] 00:00:00 00:00:00 [facility] [id number] [place] 4.2.7.2.686 Professio [phone] [place] [address] Office [facility] One 2020-11-15 2020-11-15 [facility] [id number] 00:00:00 00:00:00 [facility] [id number] [place] 4.2.7.2.686 Professio [phone] [place] [address] Office [facility] One 2020-11-14 2020-11-14 [facility] [id number] 00:00:00 00:00:00 [facility] [id number] [place] 4.2.7.2.686 Professio [phone] [place] [address] Office [facility] One 2020-11-07 2020-11-07 [facility]medici [facility] [id number] 06:52:32 07:07:32 ne Visit [facility] [id number] [place] 4.2.7.2.686 Professio [phone] [place] [address] Office [facility] One 2020-11-07 2020-11-07 [facility] [id number] 00:00:00 00:00:00 [facility] 350.1.13.10 [place] 4.2.7.2.686 Professio [phone] [place] [address] Office [facility] One 2020-11-04 2020-11-04 [facility] 1.2.840.114 [id number] 00:00:00 00:00:00 [facility] 350.1.13.10 [place] 4.2.7.2.686 Professio [phone] nal 044 Office Building One 2020-11-03 2020-11-03 [facility] [id number] 00:00:00 00:00:00 [facility] 350.1.13.10 [place] 4.2.7.2.686 Professio [phone] nal 044 Office Building One 2020-10-26 2020-10-26 [facility]phone [facility] [id number] 00:00:00 00:00:00 [facility] 350.1.13.10 [place] 4.2.7.2.686 Professio [phone] nal 044 Office Building One 2020-10-24 2020-10-24 Orders Doctor [facility] [id number] 00:00:00 00:00:00 Only Unassigned, KEVIN 350.1.13.10 [place] [facility] 4.2.7.2.686 [phone] [id number] 2020-10-09 2020-10-09 [facility] [place] - [id number] V illage 00:00:00 00:00:00 [facility] erika kong SHELTER MONITOR: Medical - Practi c [address] VM_HOU_V@_ [address] [address] , Ph. 2020-06-12 2020-06-12 [facility] [place] - [id number] V illage 00:00:00 00:00:00 [facility] erika kong SHELTER MONITOR: Medical - Practi c [address] CUBA_HOU_V@H_ e [address] [address] , Ph. 2020-05-24 2020-05-24 [facility] [place] - [id number] V illage 00:00:00 00:00:00 [facility] erika kong SHELTER MONITOR: Medical - Practi c [address] VM_HOU_V@H_ [address] [address] , Ph. 2020-03-08 2020-03-08 Prudence [facility] [place] - [id number] V illage 00:00:00 00:00:00 [facility] erika kong SHELTER MONITOR: Medical - Practi c [address] VM_HOU_V@H_ e [facility], [address] [place] [address], [place] [address] , Ph. Results Test Description Test Time Test Comments Results Result Comments Source POC-Glucose meter 2020-06-26 16:29:00 Test Item Value Reference Range Interpretation Comme nts POC-Glucose Meter (test code = 119 mg/dL 70-110 H : TESTED AT [facility] [address], 770 30: Manager Utilization/Techni alton ID = [id number] for Yamila Loyola r Lab Interpretation (test code = Abnormal 32901-1) [facility] [id number] 16:29:00 Test Item Value Reference Range Interpretation Comments POC-GLUCOSE METER 119 mg/dL 70-110 H : TESTED A T [facility] 6720 (BEAKER) (test code = [facility], 1538) [address]: Manager Utilization/Techni alton ID = [id number] for Me ndez, Marleen POCT-GLUCOSE [id number] 12:48:00 Test Item Value Reference Range Interpretation Comments POC-GLUCOSE METER 188 mg/dL 70-110 H : TESTED A T [facility] 6720 (BEAKER) (test code = [facility], 1538) [address]: Manager Utilization/Techni alton ID = [id number] for Me ndez, Marleen POCT-GLUCOSE [id number] 08:45:00 Test Item Value Reference Range Interpretation Comments POC-GLUCOSE METER 154 mg/dL 70-110 H : TESTED A T [facility] 6720 (BEAKER) (test code = [facility], 153) [address]: Manager Utilization/Techni alton ID = [id number] for Me ndez, Marleen Basic Metabolic [id number] 05:37:00 Test Item Value Reference Range Interpretation Comments Sodium (test code = 140 meq/L 102-972 4949-2) Potassium (test code = 4.3 meq/L 3.5-5.1 2823-3) Chloride (test code = 101 meq/L 98-107 2075-0) CO2 (test code = 33 meq/L 22-29 H 8-9) BUN (test code = 16 mg/dL 7-21 3094-0) Creatinine (test code 0.73 mg/dL 0.57-1.25 = 2160-0) Glucose (test code = 113 mg/dL 70-105 H 2345-7) Calcium (test code = 8.4 mg/dL 8.4-10.2 29092-0) EGFR (test code = 81 mL/min/1.73 [place] [address]-8) NOT ACCURATE CREATININE CLEARANCE IN PREDICTING GLOMERULAR FILTRATION RATE . ESTIMATED GFR I S NOT APPLICABLE FOR DIALYSIS PATIENTS. TEX (test code = TEX) Manager Utilization ID - [id number] M Lab Interpretation Abnormal (test code = 00783-4) [facility]OLIC [id number] 05:37:00 Test Item Value Reference Range Interpretation [...] 697) EGFR (BEAKER) (test 81 mL/min/1.73 ESTIMA ROBBIE GFR IS code = 1092) sq m NOT ACCURATE CREATININE CLEARANCE IN PREDICTING GLOMERULAR FILTRATION RATE . ESTIMATED GFR I S NOT APPLICABLE FOR DIALYSIS PATIEN TS. Manager Utilization ID - [id number] MCBC with platelet count + automated [id number] 05:22:00 Test Item Value Reference Range Interpretation Comments WBC (test code = 6690-2) 9.8 See_Comment [A utomated message] The system [employer] generated this result transmitted ref erence range: 3.5 - 10 .5 K/L. The refe rence range was not u sed to interpret this result as normal/abnor mal. RBC (test code = 789-8) 2.66 See_Comment L [Au tomated message] The system [employer] generated this result transmitted ref erence range: 3.93 - 5 .22 M/L. The refe rence range was not u sed to interpret this result as normal/abnor mal. MCHC (test code = 786-4) 29.9 See_Comment L [A utomated message] The system [employer] generated this result transmitted ref erence range: 32.2 - 3 5.5 GM/DL. The refe rence range was not u sed to interpret this result as normal/abnor mal. Hematocrit (test code = 27.8 % 34.1-44.9 L 4544-3) MCV (test code = 787-2) 104.5 fL 79.4-94.8 H MCH (test code = 785-6) 31.2 pg 25.6-32.2 RDW (test code = 788-0) 16.6 % 11.7-14.4 H Platelets (test code = 197 See_Comment [Aut omated message] 777-3) The system [employer] generated this result transmitted ref erence range: 150 - 45 0 K/CU MM. The referen ce range was not u sed to interpret this result as normal/abnor mal. MPV (test code = 9.4 fL 9.4-12.3 94618-7) nRBC (test code = 413) 1 See_Comment H [Aut omated message] The system [employer] generated this result transmitted ref erence range: 0 - 0 /1 00 WBC. The refere nce range was not u sed to interpret this result as normal/abnor mal. % Neutros (test code = 71 % 429) % Lymphs (test code = 13 % 430) % Monos (test code = 7 % 431) % Eos (test code = 432) 5 % % Baso (test code = 437) 1 % # Neutros (test code = 6.97 See_Comment H [Aut omated message] 670) The system [employer] generated this result transmitted ref erence range: 1.56 - 6 .13 K/L. The refe rence range was not u sed to interpret this result as normal/abnor mal. # Lymphs (test code = 1.25 See_Comment [Auto mated message] 414) The system [employer] generated this result transmitted ref erence range: 1.18 - 3 .74 K/L. The refe rence range was not u sed to interpret this result as normal/abnor mal. # Monos (test code = 0.71 See_Comment H [Autom ated message] 415) The system [employer] generated this result transmitted ref erence range: 0.24 - 0 .36 K/L. The refe rence range was not u sed to interpret this result as normal/abnor mal. # Eos (test code = 416) 0.47 See_Comment H [Au tomated message] The system [employer] generated this result transmitted ref erence range: 0.04 - 0 .36 K/L. The refe rence range was not u sed to interpret this result as normal/abnor mal. # Baso (test code = 417) 0.05 See_Comment [A utomated message] The system [employer] generated this result transmitted ref erence range: 0.01 - 0 .08 K/L. The refe rence range was not u sed to interpret this result as normal/abnor mal. Immature 4 % 0-1 H Granulocytes-Relative (test code = 2801) Lab Interpretation (test Abnormal code = 68237-7) [facility] W/PLT COUNT & AUTO [id number] 05:22:00 Test Item Value Reference Range Interpretation [...] PERCENT (BEAKER) (test code = 2801) POCT-GLUCOSE [id number] 20:57:00 Test Item Value Reference Range Interpretation Comments POC-GLUCOSE METER 136 mg/dL 70-110 H : TESTED Malaika Tiffanie [facility] 6720 (BEAKER) (test code = RONNY AQUINO, 1538) 174[address]: Manager Utilization/Techni alton ID = [id number] for AN TIFFANIE FARIA POCT-GLUCOSE [id number] 16:49:00 Test Item Value Reference Range Interpretation Comments POC-GLUCOSE METER 104 mg/dL 70-110 : TESTED A T [facility] 6720 (BEAKER) (test code = [facility], 153) 917[address]: Manager Utilization/Techni alton ID = [id number] for RA MOS, ALEKSEY POCT-GLUCOSE [id number] 12:14:00 Test Item Value Reference Range Interpretation Comments POC-GLUCOSE METER 142 mg/dL 70-110 H : TESTED A T [facility] 6720 (BEAKER) (test code = [facility], 1538) 34182: Manager Utilization/Techni alton ID = [id number] for RA MOS, ALEKSEY POCT-GLUCOSE [id number] 08:04:00 Test Item Value Reference Range Interpretation Comments POC-GLUCOSE METER 152 mg/dL 70-110 H : TESTED A T [facility] 6720 (BEAKER) (test code = [facility], 1538) 52232: Manager Utilization/Techni alton ID = [id number] for RA MOS, ALEKSEY POCT-GLUCOSE [id number] 06:06:00 Test Item Value Reference Range Interpretation Comments POC-GLUCOSE METER 115 mg/dL 70-110 H : TESTED A T [facility] 6720 (BEAKER) (test code = [facility], [facility]8) 71921: Manager Utilization/Techni alton ID = [id number] for SA RICKEY DOMINIQUE CBC W/PLT COUNT & AUTO [id number] 04:19:00 Test Item Value Reference Range Interpretation [...] PERCENT (BEAKER) (test code = 2801) POCT-GLUCOSE [id number] 00:40:00 Test Item Value Reference Range Interpretation Comments POC-GLUCOSE METER 120 mg/dL 70-110 H : Notified RN/MD: ([facility]) (test code = TESTED AT [place] [address] 9409) [facility], [address]: Manager Utilization/Techni alton ID = [id number] for RICKEY CHAUDHRY POCT-GLUCOSE [id number] 18:10:00 Test Item Value Reference Range Interpretation Comments POC-GLUCOSE METER 166 mg/dL 70-110 H : TESTED A T [facility] 6720 (BEAKER) (test code = [facility], 1538) 93985: Manager Utilization/Techni alton ID = [id number] for RA MOS, ALEKSEY POCT-GLUCOSE [id number] 12:06:00 Test Item Value Reference Range Interpretation Comments POC-GLUCOSE METER 157 mg/dL 70-110 H : TESTED A T [facility] 6720 (BEAKER) (test code = [facility], 1538) 33242: Manager Utilization/Techni alton ID = [id number] for RA MOS, ALEKSEY POCT-GLUCOSE [id number] 08:51:00 Test Item Value Reference Range Interpretation Comments POC-GLUCOSE METER 168 mg/dL 70-110 H : TESTED A T [facility] 6720 (BEAKER) (test code = [facility], 1538) 00535: Manager Utilization/Techni alton ID = [id number] for RA MOS, ALEKSEY CBC W/PLT COUNT & AUTO [id number] 05:10:00 Test Item Value Reference Range Interpretation Comments WHITE BLOOD CELL COUNT (BEAKER) 10.4 K/ L 3.5-10.5 (test code = 775) RED BLOOD CELL COUNT (BEAKER) 2.60 M/ L 3.93-5.22 L (test code = 761) HEMOGLOBIN (BEAKER) (test code = 8.1 GM/DL 11.2-15.7 L 410) HEMATOCRIT (BEAKER) (test [...] PERCENT (BEAKER) (test code = 2801) POCT-GLUCOSE [id number] 01:33:00 Test Item Value Reference Range Interpretation Comments POC-GLUCOSE METER 107 mg/dL 70-110 : TESTED A T [facility] 6720 (BEAKER) (test code = [facility], 1538) 82364: Manager Utilization/Techni alton ID = [id number] for AN TIFFANIE FARIA POCT-GLUCOSE [id number] 11:19:00 Test Item Value Reference Range Interpretation Comments POC-GLUCOSE METER 155 mg/dL 70-110 H : TESTED A T [facility] 6720 (BEAKER) (test code = [facility] Chu Shu [facility], 1538) 99087: Manager Utilization/Techni alton ID = [id number] for NISSA ROLYMARLENAJASMINEON FL, FLUORO, NON-SPECIFIC, UP TO 1 [id number] 08:27:37Reason for exam:- >Dislocated left shoulder (OR 18)Fluoroscopic unit utilized for a procedure performed in the OR. No interpretation was requested. Refer to the operative report for findings. Refer to PACS for patient radiation dose information.FL fluoro non-specific up to 1 [id number] 08:12:00Interface, External Ris In - 06/23/2020 1:22 PM CDTFluoroscopic unit utilized for a procedure performed in the OR. No interpretation was requested. Refer to the operative report for findings. Referto PACS for patient radiation dose information.[facility] 12 [id number] 06:36:51Interface, External Ris In - 06/23/2020 6:36 AM CDTVentricular Rate 99 BPMAtrial Rate 99 BPMP-R Interval 148 msQRS Duration 86 msQ-T Interval 350 msQTC Calculation(Bazett) 449 msP [place] 39 degreesR [place] -2 degreesT [place] 112 degreesNormal sinus rhythmMinimal voltage criteria for LVH, may be normal variantAbnormal QRS-T angle, consider primary T wave abnormalityAbnormal ECGWhen compared with ECG of 17-JUN-2020 20:01,No significant change was foundConfirmed by MD BINH, SUPA Fields ([id number]) on 06/23/20206:36:50 [facility] [id number] 05:40:00 Test Item Value Reference Range Interpretation Comments POC-GLUCOSE METER 145 mg/dL 70-110 H : TESTED A T [facility] 6720 (I AND [employer] (test code = [employer] [place], 1538) [address]329: Manager Utilization/Techni alton ID = [id number] for AN NOR, TIFFANIE POCT-GLUCOSE [id number] 23:05:00 Test Item Value Reference Range Interpretation Comments POC-GLUCOSE METER 128 mg/dL 70-110 H : TESTED A T [facility] 6720 (BEAKER) (test code = [employer] [place], 1538) 70089: Manager Utilization/Techni alton ID = [id number] for AN NOR, TIFFANIE Hemoglobin and [id number] 17:48:00 Test Item Value Reference Range Interpretation Comments Hemoglobin (test code 7.7 See_Comment L [Auto mated = 786-4) message] The system which generated this result transmit robbie reference range : 11.2 - 15.7 GM/ DL. The reference range was not u sed to interpret th is result as normal/abnormal . Hematocrit (test code 26.4 % 34.1-44.9 L = 4544-3) TEX (test code = TEX) Manager Utilization ID - [id number] Lab Interpretation Abnormal (test code = 92897-2) [facility] HospitalHEMOGLOBIN AND [id number] 17:48:00 Test Item Value Reference Range Interpretation Comments HEMOGLOBIN (BEAKER) (test code = 7.7 GM/DL 11.2-15.7 L 410) HEMATOCRIT (BEAKER) (test code = 26.4 % 34.1-44.9 L 411) Manager Utilization ID - [id number]-GLUCOSE [id number] 11:44:00 Test Item Value Reference Range Interpretation Comments POC-GLUCOSE METER 116 mg/dL 70-110 H : TESTED A T [facility] 6720 (BEAKER) (test code = [employer] [facility], 1538) 42686: Manager Utilization/Techni alton ID = [id number] for Ashwin Platt BASIC METABOLIC [id number] 07:08:00 Test Item Value Reference Range Interpretation [...] 697) EGFR (BEAKER) (test 46 mL/min/1.73 ESTIMA ROBBIE GFR IS code = 1092) sq m NOT ACCURATE CREATININE CLEARANCE IN PREDICTING GLOMERULAR FILTRATION RATE . ESTIMATED GFR I S NOT APPLICABLE FOR DIALYSIS PATIEN TS. Manager Utilization ID - KASIA MPOCT-GLUCOSE [id number] 07:02:00 Test Item Value Reference Range Interpretation Comments POC-GLUCOSE METER 112 mg/dL 70-110 H : TESTED A T [facility] 6720 (BEAKER) (test code = [employer] [place], 153) 77270: Manager Utilization/Techni alton ID = [id number] for ELIAN PLATT CBC W/PLT COUNT & AUTO [id number] 06:24:00 Test Item Value Reference Range Interpretation Comments WHITE BLOOD CELL COUNT 11.7 K/ L 3.5-10.5 H (BEAKER) (test code = 775) RED BLOOD CELL COUNT 2.51 M/ L 3.93-5.22 L (BEAKER) (test code = 761) HEMOGLOBIN (BEAKER) 7.7 GM/DL 11.2-15.7 L Patient had (test code = 410) surgery e day before [id number] HEMATOCRIT (BEAKER) 26.5 % 34.1-44.9 L (test [...] (BEAKER) (test code = 2801) Lactic acid, [id number] 06:09:00 Test Item Value Reference Range Interpretation Comments Lactate, Venous (test code 0.95 mmol/L 0.5-2.2 = 2872) TEX (test code = TEX) Manager Utilization ID - [id number] M Lab Interpretation (test Normal code = 33389-9) [facility] HospitalLACTIC ACID, [id number] 06:09:00 Test Item Value Reference Range Interpretation Comments LACTATE BLOOD VENOUS (2) (BEAKER) 0.95 mmol/L 0.50-2.20 (test code = 2872) Manager Utilization ID - KASIA MPOCT-GLUCOSE [id number] 00:13:00 Test Item Value Reference Range Interpretation Comments POC-GLUCOSE METER 114 mg/dL 70-110 H : TESTED A T [facility] 6720 (BEAKER) (test code = [facility], 1538) 71761: Manager Utilization/Techni alton ID = [id number] for ELIAN PLATT POCT-GLUCOSE [id number] 15:36:00 Test Item Value Reference Range Interpretation Comments POC-GLUCOSE METER 153 mg/dL 70-110 H : TESTED A T [facility] 6720 (BEAKER) (test code = [facility], 1538) 94583: Manager Utilization/Techni alton ID = [id number] for NISSA ROLYCAMERON MENDIOLA Treadmill tolerance(Non-Nuclear Treadmill)2020-06-21 14:44:14Interface, External Ris In [...] by Real Magallon (52) on 06/21/2020 2:44:06 [facility]WS, LEFT 2020-06-21 13:36:00Reason [...] no acute fracture, or dislocation. There is pcib-xv-qbhfiowv osteoarthritis, as well as mild enthesopathy at [...] Rubio Verified Date/Time: 06/21/2020 13:36:41 Reading Location: [facility] Radiology Reading Room Electr onically signed by: JENNIFER RUBIO M.D. on 06/21/2020 01:36 PMRAD, SHOULDER, 1 VIEW, [id number] 13:36:00Reason for exam:->left shouler painFINAL REPORT Radiograph [...] no acute fracture, or dislocation. There is bufs-da-utewyprd osteoarthritis, as well as mild enthesopathy at [...] Rubio Verified Date/Time: 06/21/2020 13:36:41 Reading Location: [facility] Radiology Reading Room RAD, PELVIS, 1 OR 2 [id number] 13:36:00Single viewReason for exam:- >femur fxShould this [...] no acute fracture, or dislocation. There is bipt-ai-vsjfnisl osteoarthritis, as well as mild enthesopathy at [...] Rubio Verified Date/Time: 06/21/2020 13:36:41 Reading Location: [facility] Radiology Reading Room XR pelvis 1 or 2 [id number] 13:36:00Interface, External Ris In - 06/21/2020 1:38 [...] demonstrates no acute fracture, or dislocation. There szhzep-qi-uslywayc osteoarthritis, as well as mild enthesopathy at [...] theleft elbow, and both hips. Signed: Jennifer Rubioeport Verified Date/Time: 06/21/2020 13:36:41 Reading Location: [facility] Radiology Reading Room [facility] elbow 3 views min [id number] 13:36:00Interface, External Ris In - 06/21/2020 1:38 [...] no acute fracture, or dislocation. There is peck-hy-yqmwfxwh osteoarthritis, as well as mild enthesopathy at [...] Rubio Verified Date/Time: 06/21/2020 13:36:41 Reading Location: [facility] Radiology Reading Room [facility] 1 view left 2020-06-21 13:36:00Interface, [...] demonstrates no acute fracture, or dislocation. There sbofnw-fa-stifyyxz osteoarthritis, as well as mild enthesopathy at [...] Rubio Verified Date/Time: 06/21/2020 13:36:41 Reading Location: [facility] Radiology Reading Room [facility] [id number] 12:40:00 Test Item Value Reference Range Interpretation Comments POC-GLUCOSE METER 189 mg/dL 70-110 H : TESTED A T [facility] 6720 (BEAKER) (test code = [place], 1538) [address]: Manager Utilization/Techni alton ID = [id number] for MARCO ANTONIO WARDESS CBC (Hemogram only)2020-06-21 11:17:00 Test Item Value Reference Range Interpretation Comments WBC (test code = 6690-2) 27.9 See_Comment H [A utomated message] The system [employer] generated this result transmitted ref erence range: 3.5 - 10 .5 K/L. The refe rence range was not u sed to interpret this result as normal/abnor mal. RBC (test code = 789-8) 3.37 See_Comment L [Au tomated message] The system [employer] generated this result transmitted ref erence range: 3.93 - 5 .22 M/L. The refe rence range was not u sed to interpret this result as normal/abnor mal. MCHC (test code = 786-4) 30.4 See_Comment L [A utomated message] The system [employer] generated this result transmitted ref erence range: 32.2 - 3 5.5 GM/DL. The refe rence range was not u sed to interpret this result as normal/abnor mal. Hematocrit (test code = 35.5 % 34.1-44.9 4544-3) MCV (test code = 787-2) 105.3 fL 79.4-94.8 H Disc ordant MCV result compared to pre vious result; clinica l correlation req uired MCH (test code = 785-6) 32.0 pg 25.6-32.2 RDW (test code = 788-0) 16.5 % 11.7-14.4 H Platelets (test code = 254 See_Comment [Aut omated message] 777-3) The system [employer] generated this result transmitted ref erence range: 150 - 45 0 K/CU MM. The referen ce range was not u sed to interpret this result as normal/abnor mal. MPV (test code = 9.9 fL 9.4-12.3 04503-0) nRBC (test code = 413) 0 See_Comment [Aut omated message] The system [employer] generated this result transmitted ref erence range: 0 - 0 /1 00 WBC. The refere nce range was not u sed to interpret this result as normal/abnor mal. Lab Interpretation (test Abnormal code = 12496-2) [facility] (HEMOGRAM ONLY)2020-06-21 11:17:00 Test Item Value Reference [...] CELLS (BEAKER) (test code = 413) POCT-GLUCOSE [id number] 09:57:00 Test Item Value Reference Range Interpretation Comments POC-GLUCOSE METER 172 mg/dL 70-110 H : TESTED A T [facility] 6720 (BEAKER) (test code = [place], 1538) [address]: Manager Utilization/Techni alton ID = [id number] for ANTONIO JEFE AN FL, FLUORO, NON-SPECIFIC, UP TO 1 [id number] 09:21:38Reason for exam:- >right femur fractureFluoroscopic unit utilized for a procedure performed in the OR. No interpretation was requested. Refer to the operative report for findings. Refer to PACS for patient radiation dose information.Prepare Leuko- Red [id number] 23:54:00 Test Item Value Reference Range Interpretation Comments CROSSMATCH (test code = 2264) COMPATIBLE Unit ABO (test code = B Pos [id number]) UNIT NUMBER (test code = [id number] 934-0) Status (test code = 6559026) [facility] Blood [facility] Product (test code RED BLOOD CELLS = 2263) PRODUCT CODE (test code = K6083S06 933-2) [facility] [id number] 23:46:00 Test Item Value Reference Range Interpretation Comments POC-GLUCOSE METER 136 mg/dL 70-110 H : TESTED A T [facility] 6720 (BEAKER) (test code = RONNY Munoz [facility], 1538) 012[address]: Manager Utilization/Techni alton ID = [id number] for HANS JOSE POCT-GLUCOSE [id number] 18:51:00 Test Item Value Reference Range Interpretation Comments POC-GLUCOSE METER 158 mg/dL 70-110 H : TESTED A T [facility] 6720 (BEAKER) (test code = RONNY Munoz [facility], 1538) 69950: Manager Utilization/Techni alton ID = [id number] for NEDA STAHL [facility] KHADIJAH, MULTI, PHARM, [id number] 17:07:00Unlisted Reason for Exam - Click Yes and Enter Reason Below->No Eval for CADFINAL REPORT PROCEDURE: MYOCARDIAL PERFUSION PLANAR IMAGING (2-Day Stress/Rest)CPT CODE: 17657 INDICATION: evaluate for presence of CAD, preoperative [...] MDReport Verified Date/Time: 06/20/2020 17:07:36 Reading Location: [address] Reading Room [place] Myocard imaging multi pharm [id number] 17:07:00Interface, External Ris In - 06/20/2020 5:09 PM CDTFINAL REPORT PROCEDURE: MY OCARDIAL PERFUSION PLANAR IMAGING (2-Day Stress/Rest)CPT CODE: 31321 INDICATION: evaluate for presence of CAD, preoperative [...] MDReport Verified Date/Time: 06/20/2020 17:07:36 Reading Location: [address] Reading [facility] [id number] 12:32:00 Test Item Value Reference Range Interpretation Comments POC-GLUCOSE METER 128 mg/dL 70-110 H : TESTED A T [facility] 6720 (I AND [employer] (test code = [facility], 1538) 01992: Manager Utilization/Techni alton ID = [id number] for PRINCESS ED POCT-GLUCOSE [id number] 06:18:00 Test Item Value Reference Range Interpretation Comments POC-GLUCOSE METER 133 mg/dL 70-110 H : TESTED A T [facility] 6720 (BEAKER) (test code = [facility], 1538) 11712: Manager Utilization/Techni alton ID = [id number] for TIFFANIE HARDING Vitamin B12 and [id number] 06:10:00 Test Item Value Reference Range Interpretation Comments Vitamin B12 (test 467 pg/mL 213-816 code = 2132-9) Folate (test code = 16.70 ng/mL See_Comment [Automa robbie 2284-8) message] The system which generated this result transmit robbie reference range : >=7.00. The reference range was not used to interpret this result as normal/abnormal . TEX (test code = TEX) Manager Utilization ID - EDASI Lab Interpretation Normal (test code = 13155-0) [facility] HospitalVITAMIN B12 AND [id number] 06:10:00 Test Item Value Reference Range Interpretation Comments VITAMIN B12 (BEAKER) (test code = 467 pg/mL 213-816 774) FOLATE (BEAKER) (test code = 362) 16.70 ng/mL >=7.00 Manager Utilization ID - EDASIComprehensive metabolic [id number] 06:01:00 Test Item Value Reference Range Interpretation Comments Protein, Total (test 6.9 See_Comment [Autom ated code = 2885-2) message] The system which generated this result transmit robbie reference range : 6.0 - 8.3 gm/dL . The reference range was not u sed to interpret th is result as normal/abnormal . Albumin (test code = 3.4 g/dL 3.5-5 L 71992-2) Alkaline Phosphatase 49 U/L 40-150 (test code = 6768-6) Total Bilirubin (test 1.1 mg/dL 0.2-1.2 code = 1975-2) Sodium (test code = 142 meq/L 618-503 0046-2) Potassium (test code 4.4 meq/L 3.5-5.1 = 2823-3) Chloride (test code = 101 meq/L 98-107 2075-0) CO2 (test code = 33 meq/L 22-29 H 2028-9) BUN (test code = 28 mg/dL 7-21 H 3094-0) Creatinine (test code 0.81 mg/dL 0.57-1.25 = 2160-0) Glucose (test code = 131 mg/dL 70-105 H 2345-7) Calcium (test code = 9.1 mg/dL 8.4-10.2 58934-8) AST (test code = 15 U/L 5-34 1920-8) ALT (test code = 10 U/L 6-55 1742-6) EGFR (test code = 71 mL/min/1.73 [place] [address]-7) NOT ACCURATE CREATININE CLEARANCE IN PREDICTING GLOMERULAR FILTRATION RATE . ESTIMATED GFR I S NOT APPLICABLE FOR DIALYSIS PATIEN TSEla TEX (test code = TEX) Manager Utilization ID - EDASI Lab Interpretation Abnormal (test code = 22924-5) [facility] HospitalMagnesium2020-10-[facility] 06:01:00 Test Item Value Reference Range Interpretation Comments Magnesium (test code = 1.7 mg/dL 1.6-2.6 23816-2) TEX (test code = TEX) Manager Utilization ID - EDASI Lab Interpretation (test Normal code = 99148-4) [facility]2020-[facility] 06:01:00 Test Item Value Reference Range Interpretation Comments Phosphorus (test code = 2.4 mg/dL 2.3-4.7 2777-1) TEX (test code = TEX) Manager Utilization ID - EDASI Lab Interpretation (test Normal code = 03261-5) [facility]PHOSPHORUS2020-10-06 06:01:00 Test Item Value Reference Range Interpretation Comments PHOSPHORUS (BEAKER) (test code = 2.4 mg/dL 2.3-4.7 604) Manager Utilization ID - MUWMMGWNPNWHPE0967-77-47 06:01:00 Test Item Value Reference Range Interpretation Comments MAGNESIUM (BEAKER) (test code = 1.7 mg/dL 1.6-2.6 627) Manager Utilization ID - EDASICOMPREHENSIVE METABOLIC [id number] 06:01:00 Test Item Value Reference Range Interpretation [...] 347) EGFR (BEAKER) (test 71 mL/min/1.73 ESTIMA ROBBIE GFR IS code = 1092) sq m NOT ACCURATE CREATININE CLEARANCE IN PREDICTING GLOMERULAR FILTRATION RATE . ESTIMATED GFR I S NOT APPLICABLE FOR DIALYSIS PATIEN TS. Manager Utilization ID - EDASICalcium, [id number] 05:15:00 Test Item Value Reference Range Interpretation Comments Calcium, Ion (test code = 1993-) 1.15 mmol/L 1.12-1.27 pH, Blood (test code = 72106-4) 7.42 [facility], [id number] 05:15:00 Test Item Value Reference Range Interpretation Comments CALCIUM IONIZED (BEAKER) (test 1.15 mmol/L 1.12-1.27 code = 698) PH, BLOOD (BEAKER) (test code = 7.42 1810) CBC W/PLT COUNT & AUTO [id number] 05:10:00 Test Item Value Reference Range Interpretation [...] PERCENT (BEAKER) (test code = 2801) POCT-GLUCOSE [id number] 21:18:00 Test Item Value Reference Range Interpretation Comments POC-GLUCOSE METER 105 mg/dL 70-110 : TESTED A T [facility] 6720 (BEAKER) (test code = [facility], 153) 93385: Manager Utilization/Techni alton ID = [id number] for AN TIFFANIE FARIA POCT-GLUCOSE [id number] 13:16:00 Test Item Value Reference Range Interpretation Comments POC-GLUCOSE METER 131 mg/dL 70-110 H : TESTED A T [facility] 6720 (BEAKER) (test code = [facility], 1538) 06553: Manager Utilization/Techni alton ID = [id number] for Wi lliams, Areiona 2D Echo W/Doppler(CW/PW/Color)2020-06-19 12:42:42Ejection FractionSLEH ECHO HEARTLAB MKCKESSON CPACSInterface, External Ris In - 06/19/2020 12:42 PM C DTTransthoracic Echocardiography Report (TTE) Demographics Patient Name LETICIA WADE Date ofStudy 06/17/2020 FIORELLA Gender Female Visit Number [id number] Race Unknown Room Number 1523 Number Date of 1955 Referring Physician HERVE ZEE Age 64 year(s) 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 Fact Sheet for Healthcare Providers:https://www.Topple Track.[employer]/sites/default/f roselia/product/documents/F act_Sheet_HC_Providers_L xpp_FRMR-KeY-3.pdf Fact Sheet for Healthcare Patients:https://www.[employer] del.[employer]/sites/default/fi les/product/documents/Fa ct_Sheet_Patients_Lyra_S ARS-CoV-2.pdf Performing Laboratory:[facility] [place] [address] [facility] ([facility])2020-06-19 11:25:00 Test Item Value Reference Range Interpretation Comments SARS-COV2/RT-PCR (test Negative Not Detected, Negative, code = 5703512) See external report for linked test SARS-COV-2 PERFORMING LAB [facility] (test code = 7650303) Negative result for this test determines that [...] 564(g) of the Act.Fact Sheet for Healthcare Providers:https://www.Kiwi.[employer]/sites/default/files/product/documents/Fact_Shee b_TB_Gjrwpasoe_Efnb_PQJV-WsJ-0.pdfFact Sheet for Healthcare Patients:https://www.Kiwi.[employer]/sites/default/files/product/ documents/Aygb_Unqpp_Pxolsuzg_Vasp_UZIS-UfV-7.pdfPerforming Laboratory:[facility], [place] [address]AXJA-UQPJPNU METER 2020-06-19 05:59:00 Test Item Value Reference Range Interpretation Comments POC-GLUCOSE METER 122 mg/dL 70-110 H : TESTED A T [facility] 6720 (BEAKER) (test code = RONNY Munoz [facility], 1538) 78518: Manager Utilization/Techni alton ID = [id number] for ELIAN PLATT [id number] 04:43:00 Test Item Value Reference Range Interpretation Comments PHOSPHORUS (BEAKER) (test code = 2.9 mg/dL 2.3-4.7 604) Manager Utilization ID - LONWARNOTUFTIF0650-16-52 04:43:00 Test Item Value Reference Range Interpretation Comments MAGNESIUM (BEAKER) (test code = 1.9 mg/dL 1.6-2.6 627) Manager Utilization ID - EDASICOMPREHENSIVE METABOLIC [id number] 04:43:00 Test Item Value Reference Range Interpretation [...] 347) EGFR (BEAKER) (test 49 mL/min/1.73 ESTIMA ROBBIE GFR IS code = 1092) sq m NOT ACCURATE CREATININE CLEARANCE IN PREDICTING GLOMERULAR FILTRATION RATE . ESTIMATED GFR I S NOT APPLICABLE FOR DIALYSIS PATIEN TS. Manager Utilization ID - EDASICBC W/PLT COUNT & AUTO [id number] 04:20:00 Test Item Value Reference Range Interpretation [...] PERCENT (BEAKER) (test code = 2801) CALCIUM, [id number] 04:11:00 Test Item Value Reference Range Interpretation Comments CALCIUM IONIZED (BEAKER) (test 1.16 mmol/L 1.12-1.27 code = 698) PH, BLOOD (BEAKER) (test code = 7.37 1810) ABORH, [id number] 01:54:00 Test Item Value Reference Range Interpretation Comments Rh Factor (test code = 2589) POS ABO Grouping (test code = 2588) [facility] [id number] 21:49:00 Test Item Value Reference Range Interpretation Comments POC-GLUCOSE METER 113 mg/dL 70-110 H : TESTED A T [facility] 6720 (BEAKER) (test code = [facility] Chu Shu [facility], 153) 29076: Manager Utilization/Techni alton ID = [id number] for ERIC CEE, ELIAN Type and screen, [id number] 17:47:00 Test Item Value Reference Range Interpretation Comments ABO/RH AUTOMATED (BEAKER) (test B POSITIVE code = 2260) Ab Scrn (test code = 890-4) NEGATIVE [facility] [id number] 16:10:00 Test Item Value Reference Range Interpretation Comments POC-GLUCOSE METER 96 mg/dL 70-110 : TESTED A T [facility] 6720 (BEAKER) (test code = [facility] Chu Shu [facility], 153) 33257: Manager Utilization/Techni alton ID = [id number] for CAMERON PIERCE Hemoglobin [id number] 11:26:00 Test Item Value Reference Range Interpretation Comments Hemoglobin A1C (test code = 4548-4) 5.4 % 4.3-6.1 Lab Interpretation (test code = Normal 11933-5) [facility] HospitalHEMOGLOBIN [id number] 11:26:00 Test Item Value Reference Range Interpretation Comments HEMOGLOBIN A1C (OLIVERIO) (test code = 5.4 % 4.3-6.1 368) POCT-GLUCOSE [id number] 11:19:00 Test Item Value Reference Range Interpretation Comments POC-GLUCOSE METER 135 mg/dL 70-110 H : TESTED A T [facility] 6720 (BEAKER) (test code = R[place], 1538) 60674: Manager Utilization/Techni alton ID = [id number] for CAMERON HILL Troponin [id number] 10:05:00 Test Item Value Reference Range Interpretation Comments Troponin I (test code = 0.02 ng/mL 0-0.03 78746-3) TEX (test code = TEX) Troponin I [...] ROSIANG Lab Interpretation (test Normal code = 24316-0) [facility] HospitalTROPONIN [id number] 10:05:00 Test Item Value Reference Range Interpretation [...] failure, acidosis, acute neurological disease, and persistent tachyarrhythmia.Manager Utilization ID - NUBIAGPOCT-GLUCOSE METER 2020-06-18 08:09:00 Test Item Value Reference Range Interpretation Comments POC-GLUCOSE METER 120 mg/dL 70-110 H : TESTED A T [facility] 6720 (BEAKER) (test code = [place], 1538) 42132: Manager Utilization/Techni alton ID = [id number] for CAMERON HILL T4, [id number] 08:07:00 Test Item Value Reference Range Interpretation Comments Free T4 (test code = <0.40 0.7-1.48 L 3024-7) TEX (test code = TEX) Manager Utilization ID - ROSIANG Lab Interpretation (test Abnormal code = 64899-3) [facility] HospitalT4, [id number] 08:07:00 Test Item Value Reference Range Interpretation Comments FREE T4 (BEAKER) (test code = 655) < ng/dL 0.70-1.48 L Manager Utilization ID - ROSIANGTSH/Free T4 If Ifopumydo9444-92-74 07:15:00 Test Item Value Reference Range Interpretation Comments TSH (test code = 76.986 See_Comment H [Automated 45971-6) message] The system which generated this result transmit robbie reference range : 0.350 - 4.940 uIU/mL. The reference range was not used to interpret this result as normal/abnormal . TEX (test code = TEX) Manager Utilization ID - EDASI Lab Interpretation Abnormal (test code = 54300-1) [facility] HospitalTSH/FREE T4 IF [id number] 07:15:00 Test Item Value Reference Range Interpretation Comments THYROID STIMULATING HORMONE 76.986 uIU/mL 0.350-4.940 H (BEAKER) (test code = 772) Manager Utilization ID - KDZLVJAFQLQZOSF1677-12-17 07:00:00 Test Item Value Reference Range Interpretation Comments PHOSPHORUS (BEAKER) (test code = 3.5 mg/dL 2.3-4.7 604) Manager Utilization ID - FECXQLBFGCUDNX5290-15-23 07:00:00 Test Item Value Reference Range Interpretation Comments MAGNESIUM (BEAKER) (test code = 1.9 mg/dL 1.6-2.6 627) Manager Utilization ID - EDASICOMPREHENSIVE METABOLIC [id number] 07:00:00 Test Item Value Reference Range Interpretation [...] 347) EGFR (BEAKER) (test 55 mL/min/1.73 ESTIMA ROBBIE GFR IS code = 1092) sq m NOT ACCURATE CREATININE CLEARANCE IN PREDICTING GLOMERULAR FILTRATION RATE . ESTIMATED GFR I S NOT APPLICABLE FOR DIALYSIS PATIEN TS. Manager Utilization ID - EDASITRADEBAYO [id number] 06:52:00 Test Item Value Reference Range Interpretation [...] failure, acidosis, acute neurological disease, and persistent tachyarrhythmia.Manager Utilization ID - EDASIB-type Natriuretic Factor (BNP)2020-06-18 06:50:00 Test Item Value Reference Range Interpretation Comments BNP (test code = 22968-9) 35 pg/mL 0-100 TEX (test code = TEX) Manager Utilization ID - EDASI Lab Interpretation (test Normal code = 90152-4) [facility] HospitalB-TYPE NATRIURETIC FACTOR (BNP)2020-06-18 06:50:00 Test Item Value Reference Range Interpretation Comments B-TYPE NATRIURETIC PEPTIDE (BEAKER) 35 pg/mL 0-100 (test code = 700) Manager Utilization ID - EDASICBC W/PLT COUNT & AUTO [id number] 06:33:00 Test Item Value Reference Range Interpretation [...] PERCENT (BEAKER) (test code = 2801) CALCIUM, [id number] 05:58:00 Test Item Value Reference Range Interpretation Comments CALCIUM IONIZED (BEAKER) (test 1.14 mmol/L 1.12-1.27 code = 698) PH, BLOOD (BEAKER) (test code = 7.36 1810) POCT-GLUCOSE [id number] 21:55:00 Test Item Value Reference Range Interpretation Comments POC-GLUCOSE METER 187 mg/dL 70-110 H : [facility] (BEAKER[facility] (test code = RONNY [place], 1538) 174[address]: Manager Utilization/Techni alton ID = [id number] for ELIAN PLATT COMPREHENSIVE METABOLIC [id number] 21:39:00 Test Item Value Reference Range Interpretation [...] hemolyzed EGFR (BEAKER) (test 43 mL/min/1.73 ESTIMA ROBBIE GFR IS code = 1092) sq m NOT ACCURATE CREATININE CLEARANCE IN PREDICTING GLOMERULAR FILTRATION RATE . ESTIMATED GFR I S NOT APPLICABLE FOR DIALYSIS PATIEN TS. Manager Utilization ID - DBCBC W/PLT COUNT & AUTO [id number] 21:23:00 Test Item Value Reference Range Interpretation [...] code = 2801) STOOL CULTURE + SHIGA [id number] 10:48:00 Test Item Value Reference Range Interpretation Comments CULTURE ([facility]) No Salmonella, Shigella (test code = 1095) or Campylobacter isolated Unable to test for Shiga Toxin 1 due to insufficient growth of specimen.Unable to test for Shiga Toxin 2 due to insufficient growth of specimen.STOOL PATH [id number] 13:49:00 Test Item Value Reference Range Interpretation Comments PATHOGEN EXAM CHARGED ([facility]) (test Done code = 2381) POCT-GLUCOSE [id number] 11:36:00 Test Item Value Reference Range Interpretation Comments POC-GLUCOSE METER 106 mg/dL 70-110 TESTED AT [facility] 6720 ([facility]) (test code = RONNY [place] 1538) [address] POCT-GLUCOSE [id number] 08:21:00 Test Item Value Reference Range Interpretation Comments POC-GLUCOSE METER 110 mg/dL 70-110 TESTED AT [facility] 6720 (BEAKER) (test code = RONNY AQUINO 1538) [address] [id number] 05:17:00 Test Item Value Reference Range Interpretation Comments PHOSPHORUS (BEAKER) (test code = 3.6 mg/dL 2.3-4.7 604) [id number] 05:17:00 Test Item Value Reference Range Interpretation Comments MAGNESIUM (BEAKER) (test code = 1.6 mg/dL 1.6-2.6 627) BASIC METABOLIC [id number] 05:17:00 Test Item Value Reference Range Interpretation [...] 697) EGFR (BEAKER) (test 66 mL/min/1.73 ESTIMA ROBBIE GFR IS code = 1092) sq m NOT ACCURATE CREATININE CLEARANCE IN PREDICTING GLOMERULAR FILTRATION RATE . ESTIMATED GFR I S NOT APPLICABLE FOR DIALYSIS PATIEN TS. CBC W/PLT COUNT & AUTO [id number] 05:09:00 Test Item Value Reference Range Interpretation [...] L 0.00-0.20 (test code = 417) 0.00PROTHROMBIN TIME/[id number] 04:57:00 Test Item Value Reference Range Interpretation [...] POC-GLUCOSE METER 100 mg/dL 70-110 TESTED AT [place] [address] ([facility]) (test code = [facility] 1538) [address] BASIC METABOLIC [id number] 18:30:00 Test Item Value Reference Range Interpretation [...] 697) EGFR (BEAKER) (test 58 mL/min/1.73 ESTIMA ROBBIE GFR IS code = 1092) sq m NOT ACCURATE CREATININE CLEARANCE IN PREDICTING GLOMERULAR FILTRATION RATE . ESTIMATED GFR I S NOT APPLICABLE FOR DIALYSIS PATIEN TS. POCT-GLUCOSE [id number] 15:40:00 Test Item Value Reference Range Interpretation Comments POC-GLUCOSE METER 95 mg/dL 70-110 TESTED AT [place] [address] ([facility]) (test code = [facility] [address] 1538) POCT-GLUCOSE [id number] 11:47:00 Test Item Value Reference Range Interpretation Comments POC-GLUCOSE METER 101 mg/dL 70-110 TESTED AT [place] [address] ([facility]) (test code = [facility] 1538) [address] POCT-GLUCOSE [id number] 07:32:00 Test Item Value Reference Range Interpretation Comments POC-GLUCOSE METER 88 mg/dL 70-110 TESTED AT [place] [address] ([facility]) (test code = [facility] [address] 1538) CBC W/PLT COUNT & AUTO [id number] 07:32:00 Test Item Value Reference Range Interpretation [...] 0.00-0.20 (test code = 417) 0.00BASIC METABOLIC [id number] 06:23:00 Test Item Value Reference Range Interpretation [...] 697) EGFR (BEAKER) (test 69 mL/min/1.73 ESTIMA ROBBIE GFR IS code = 1092) sq m NOT ACCURATE CREATININE CLEARANCE IN PREDICTING GLOMERULAR FILTRATION RATE . ESTIMATED GFR I S NOT APPLICABLE FOR DIALYSIS PATIEN TS. [id number] 06:23:00 Test Item Value Reference Range Interpretation Comments MAGNESIUM (BEAKER) (test code = 1.6 mg/dL 1.6-2.6 627) [id number] 06:23:00 Test Item Value Reference Range Interpretation Comments PHOSPHORUS (BEAKER) (test code = 3.6 mg/dL 2.3-4.7 604) PROTHROMBIN TIME/[id number] 06:15:00 Test Item Value Reference Range Interpretation [...] POC-GLUCOSE METER 108 mg/dL 70-110 TESTED AT [facility] 6720 ([facility]) (test code = RONNY [place] 1538) [address] BASIC METABOLIC [id number] 18:12:00 Test Item Value Reference Range Interpretation [...] 697) EGFR (BEAKER) (test 58 mL/min/1.73 ESTIMA ROBBIE GFR IS code = 1092) sq m NOT ACCURATE CREATININE CLEARANCE IN PREDICTING GLOMERULAR FILTRATION RATE . ESTIMATED GFR I S NOT APPLICABLE FOR DIALYSIS PATIEN TS. POCT-GLUCOSE [id number] 17:53:00 Test Item Value Reference Range Interpretation Comments POC-GLUCOSE METER 165 mg/dL 70-110 H TESTED AT [facility] 6720 ([facility]) (test code = RONNY Munoz [place] 1538) [address] PROTHROMBIN TIME/[id number] 13:53:00 Test Item Value Reference Range Interpretation Comments PROTIME (BEAKER) (test code = 14.7 seconds 11.7-14.7 759) INR (BEAKER) (test code = 370) 1.2 <=5.9 RECOMMENDED COUMADIN/WARFARIN INR THERAPY RANGESSTANDARD DOSE: 2.0 - 3.0 Includes: PROPHYLAXIS forvenous thrombosis, systemic embolization; TREATMENT for venous thrombosis and/or pulmonary embolus.HIGH RISK: Target INR is 2.5-3.5 for patients with mechanical heart valves.POCT-GLUCOSE [id number] 11:49:00 Test Item Value Reference Range Interpretation Comments POC-GLUCOSE METER 120 mg/dL 70-110 H TESTED AT [facility] 6720 (BEAKER) (test code = RONNY Munoz [place] 1538) [address] POCT-GLUCOSE [id number] 07:58:00 Test Item Value Reference Range Interpretation Comments POC-GLUCOSE METER 94 mg/dL 70-110 TESTED AT [facility] 6720 (BEAKER) (test code = [place] [address] 1538) [id number] 07:23:00 Test Item Value Reference Range Interpretation Comments PHOSPHORUS (BEAKER) (test code = 3.6 mg/dL 2.3-4.7 604) [id number] 07:23:00 Test Item Value Reference Range Interpretation Comments MAGNESIUM (BEAKER) (test code = 1.8 mg/dL 1.6-2.6 627) BASIC METABOLIC [id number] 07:23:00 Test Item Value Reference Range Interpretation [...] 697) EGFR (BEAKER) (test 63 mL/min/1.73 ESTIMA ROBBIE GFR IS code = 1092) sq m NOT ACCURATE CREATININE CLEARANCE IN PREDICTING GLOMERULAR FILTRATION RATE . ESTIMATED GFR I S NOT APPLICABLE FOR DIALYSIS PATIEN TS. CBC W/PLT COUNT & AUTO [id number] 07:15:00 Test Item Value Reference Range Interpretation [...] L 0.00-0.20 (test code = 417) 0.00POCT-GLUCOSE [id number] 20:44:00 Test Item Value Reference Range Interpretation Comments POC-GLUCOSE METER 164 mg/dL 70-110 H TESTED AT [facility] 6720 ([facility]) (test code = RONNY AQUINO 1538) [address] BASIC METABOLIC [id number] 19:53:00 Test Item Value Reference Range Interpretation [...] 697) EGFR (BEAKER) (test 48 mL/min/1.73 ESTIMA ROBBIE GFR IS code = 1092) sq m NOT ACCURATE CREATININE CLEARANCE IN PREDICTING GLOMERULAR FILTRATION RATE . ESTIMATED GFR I S NOT APPLICABLE FOR DIALYSIS PATIEN TS. POCT-GLUCOSE [id number] 17:25:00 Test Item Value Reference Range Interpretation Comments POC-GLUCOSE METER 97 mg/dL 70-110 TESTED AT [facility] 67[address] ([facility]) (test code = RONNY Munoz [facility] [address] 1538) CLOSTRIDIUM DIFFICILE TOXIN [id number] 15:24:00 Test Item Value Reference Range Interpretation Comments CLOSTRIDIUM DIFFICILE TOXIN, PCR Not Detected Not Detected (BEAKER) (test code = 1525) This qualitative real-time [...] of a positive result is not recommended.POCT-GLUCOSE [id number] 12:30:00 Test Item Value Reference Range Interpretation Comments POC-GLUCOSE METER 110 mg/dL 70-110 TESTED AT [facility] 67[facility] (BEAKER) (test code = [facility] Tammy [facility] 1538) [id number] POCT-GLUCOSE [id number] 07:56:00 Test Item Value Reference Range Interpretation Comments POC-GLUCOSE METER 94 mg/dL 70-110 TESTED AT [place] [address] (BEAKER) (test code = [facility] [address] 1538) HEMOGLOBIN [id number] 07:48:00 Test Item Value Reference Range Interpretation Comments HEMOGLOBIN A1C (BEAKER) (test code = 5.4 % 4.3-6.1 368) CBC W/PLT COUNT & AUTO [id number] 06:42:00 Test Item Value Reference Range Interpretation [...] K/ L 0.00-0.20 (test code = 417) [id number] 06:06:00 Test Item Value Reference Range Interpretation Comments PHOSPHORUS (BEAKER) (test code = 3.7 mg/dL 2.3-4.7 604) [id number] 06:06:00 Test Item Value Reference Range Interpretation Comments MAGNESIUM (BEAKER) (test code = 1.4 mg/dL 1.6-2.6 L 627) BASIC METABOLIC [id number] 06:06:00 Test Item Value Reference Range Interpretation [...] 697) EGFR (BEAKER) (test 56 mL/min/1.73 ESTIMA ROBBIE GFR IS code = 1092) sq m NOT ACCURATE CREATININE CLEARANCE IN PREDICTING GLOMERULAR FILTRATION RATE . ESTIMATED GFR I S NOT APPLICABLE FOR DIALYSIS PATIEN TS. POCT-GLUCOSE [id number] 21:04:00 Test Item Value Reference Range Interpretation Comments POC-GLUCOSE METER 100 mg/dL 70-110 TESTED AT [place] [address] ([facility]) (test code = [facility] 1538) [address] BASIC METABOLIC [id number] 20:03:00 Test Item Value Reference Range Interpretation [...] 697) EGFR (BEAKER) (test 48 mL/min/1.73 ESTIMA ROBBIE GFR IS code = 1092) sq m NOT ACCURATE CREATININE CLEARANCE IN PREDICTING GLOMERULAR FILTRATION RATE . ESTIMATED GFR I S NOT APPLICABLE FOR DIALYSIS PATIEN TS. POCT-GLUCOSE [id number] 15:45:00 Test Item Value Reference Range Interpretation Comments POC-GLUCOSE METER 130 mg/dL 70-110 H TESTED AT [place] [address] ([facility]) (test code = [facility] 1538) [address] POCT-GLUCOSE [id number] 11:20:00 Test Item Value Reference Range Interpretation Comments POC-GLUCOSE METER 102 mg/dL 70-110 TESTED AT [place] [address] ([facility]) (test code = [facility] 1538) [address] HEMOGLOBIN [id number] 08:50:00 Test Item Value Reference Range Interpretation Comments HEMOGLOBIN A1C (BEAKER) (test code = 5.6 % 4.3-6.1 368) [id number] 05:44:00 Test Item Value Reference Range Interpretation Comments PHOSPHORUS (BEAKER) (test code = 3.4 mg/dL 2.3-4.7 604) [id number] 05:44:00 Test Item Value Reference Range Interpretation Comments MAGNESIUM (BEAKER) (test code = 1.7 mg/dL 1.6-2.6 627) BASIC METABOLIC [id number] 05:44:00 Test Item Value Reference Range Interpretation [...] 697) EGFR (BEAKER) (test 46 mL/min/1.73 ESTIMA ROBBIE GFR IS code = 1092) sq m NOT ACCURATE CREATININE CLEARANCE IN PREDICTING GLOMERULAR FILTRATION RATE . ESTIMATED GFR I S NOT APPLICABLE FOR DIALYSIS PATIEN TS. CBC W/PLT COUNT & AUTO [id number] 05:39:00 Test Item Value Reference Range Interpretation [...] L 0.00-0.20 (test code = 417) 0.00POCT-GLUCOSE [id number] 23:15:00 Test Item Value Reference Range Interpretation Comments POC-GLUCOSE METER 83 mg/dL 70-110 TESTED AT [place] [address] ([facility]) (test code = [facility] [address] 1538) POCT-GLUCOSE [id number] 17:19:00 Test Item Value Reference Range Interpretation Comments POC-GLUCOSE METER 82 mg/dL 70-110 TESTED AT [place] [address] ([facility]) (test code = [facility] [address] 1538) POCT-GLUCOSE [id number] 12:57:00 Test Item Value Reference Range Interpretation Comments POC-GLUCOSE METER 124 mg/dL 70-110 H TESTED AT [place] [address] (BEAKER) (test code = RONNY [place] 1538) [address] HEMOGLOBIN [id number] 10:12:00 Test Item Value Reference Range Interpretation Comments HEMOGLOBIN A1C (BEAKER) (test code = 5.6 % 4.3-6.1 368) CBC W/PLT COUNT & AUTO [id number] 06:14:00 Test Item Value Reference Range Interpretation [...] K/ L 0.00-0.20 (test code = 417) [id number] 05:43:00 Test Item Value Reference Range Interpretation Comments PHOSPHORUS (BEAKER) (test code = 4.1 mg/dL 2.3-4.7 604) [id number] 05:43:00 Test Item Value Reference Range Interpretation Comments MAGNESIUM (BEAKER) (test code = 1.9 mg/dL 1.6-2.6 627) BASIC METABOLIC [id number] 05:43:00 Test Item Value Reference Range Interpretation [...] 697) EGFR (BEAKER) (test 43 mL/min/1.73 ESTIMA ROBBIE GFR IS code = 1092) sq m NOT ACCURATE CREATININE CLEARANCE IN PREDICTING GLOMERULAR FILTRATION RATE . ESTIMATED GFR I S NOT APPLICABLE FOR DIALYSIS PATIEN TS. POCT-GLUCOSE [id number] 05:12:00 Test Item Value Reference Range Interpretation Comments POC-GLUCOSE METER 89 mg/dL 70-110 TESTED AT [facility] 67[address] (BEAKER) (test code = [place] [address] 1538) POCT-GLUCOSE [id number] 00:07:00 Test Item Value Reference Range Interpretation Comments POC-GLUCOSE METER 92 mg/dL 70-110 TESTED AT [facility] 6720 (BEAKER) (test code = [place] [address] 1538) [id number] 23:51:00 Test Item Value Reference Range Interpretation [...] is 2.5-3.5 for patients with mechanical heart valves.[id number] 23:49:00 Test Item Value Reference Range Interpretation Comments MAGNESIUM (BEAKER) 1.9 mg/dL 1.6-2.6 Specimen slightly (test code = 627) hemolyzed [id number] 23:49:00 Test Item Value Reference Range Interpretation Comments PHOSPHORUS (BEAKER) 3.4 mg/dL 2.3-4.7 Specimen slightly (test code = 604) hemolyzed BASIC METABOLIC [id number] 23:49:00 Test Item Value Reference Range Interpretation [...] 697) EGFR (BEAKER) (test 41 mL/min/1.73 ESTIMA ROBBIE GFR IS code = 1092) sq m NOT ACCURATE CREATININE CLEARANCE IN PREDICTING GLOMERULAR FILTRATION RATE . ESTIMATED GFR I S NOT APPLICABLE FOR DIALYSIS PATIEN TS. CBC W/PLT COUNT & AUTO [id number] 23:38:00 Test Item Value Reference Range Interpretation [...] 0.00-0.20 (test code = 417) 0.00URINALYSIS W/ [id number] 22:57:00 Test Item Value Reference Range Interpretation [...] 1574) SOURCE(BEAKER) (test code = Urine, Perez 5359)
--- NOTE | 2020-11-27 17:43 | RAD REPORT ---
EXAM DESCRIPTION: Jason Single View11/27/2020 5:01 pm CLINICAL HISTORY: Shortness of breath COMPARISON: September 2020 FINDINGS: No significant change in the moderate to marked right and dbyr-ql-thnipgys left pulmonary opacities. I suspect that the majority of this is chronic Heart remains enlarged
[2020-11-27 17:58] LABS: Basophils % 0.5 % (0-1.3); Hematocrit 40.3 % (36.0-45.0); Lymphocytes % 13.5 % (15.3-44.8); MPV 8.3 fL (7.6-11.3); RBC Red Blood Cell Count 4.39 M/uL (3.86-4.86)
[2020-11-27 18:03] LABS: Protime INR 1.31
[2020-11-27 18:20] LABS: ALT/SGPT 12 U/L (12-78); AST/SGOT 9 U/L (15-37); Albumin 2.9 g/dL (3.4-5.0); Alkaline Phosphatase 80 U/L (45-117); BUN Blood Urea Nitrogen 32 mg/dL (7-18); Bicarbonate 36 mmol/L (21-32); Bilirubin Direct 0.2 mg/dL (0-0.2); Bilirubin Total 0.5 mg/dL (0.2-1.0); Glucose Level 107 mg/dL (74-106); Magnesium 2.1 mg/dL (1.8-2.4); NT PRO-BNP 2914 pg/mL (<125); Potassium 3.9 mmol/L (3.5-5.1); Protein, Total 7.4 g/dL (6.4-8.2); Sodium Level 145 mmol/L (136-145); Troponin (Emerg Dept Use Only) < 0.02 ng/mL (0.0-0.045)
[2020-11-27] MEDS ORDERED: LEVALBUTEROL 1.25 MG/3 ML NEB ONE (19:38)
[2020-11-27] MEDS ORDERED: METHYLPREDNISOLONE 125 MG INJ ONE (19:38)
--- NOTE | 2020-11-27 19:39 | EDPHYS ---
Physician Documentation [facility] Name: Rosio Jain Age: 65 yrs Sex: Female : 1955 Arrival Date: 11/27/2020 Time: 15:57 Bed 4 Private MD: ED Physician Serge Gonzales HPI: 11/27 16:01 This 65 yrs old Female presents to ER via EMS with complaints of Shortness Of jmm Breath. 16:01 The patient has shortness of breath at rest, with light activity. Onset: The jmm symptoms/episode began/occurred gradually, 2 day(s) ago. Duration: The symptoms are continuous, and are steadily getting worse. The patient's shortness of breath is aggravated by exertion, light activity. Associated signs and symptoms: Pertinent negatives: chest pain, fever. This is a 65 year old female with a history of add/adhd, anxiety, asthma, copd, DM, HTN that presents to the ED with complaints of shortness of breath worsening over the past 2 days. Denies fever. . Historical: - Allergies: 16:05 NKA; ph - Home Meds: 16:05 alprazolam 1 mg Oral tab [Active]; citalopram 20 mg tab 1 tab once daily [Active]; ph folic acid 400 mcg Oral tab 1 tab once daily [Active]; furosemide 20 mg Oral tab 1 tab once daily [Active]; levothyroxine 175 mcg tab [Active]; metoprolol tartrate 50 mg Oral tab [Active]; valsartan-hydrochlorothiazide 320-25 mg Oral tab 1 tab once daily [Active]; Xarelto 20 mg Oral tab 1 tab once daily [Active]; zolpidem 10 mg Oral tab 1 tab once daily [Active]; - PMHx: 16:05 ADD/ADHD; Anxiety; Asthma; COPD; Diabetes - NIDDM; Hypertension; Hypothyroidism; PE; ph - PSHx: 16:05 Thyroidectomy; ph - Immunization history:: Adult Immunizations unknown. - Social history:: Smoking status: Patient denies any tobacco usage or history of. ROS: 16:01 Constitutional: Negative for fever, chills, and weight loss, Cardiovascular: Negative jmm for chest pain, palpitations, and edema. 16:01 Respiratory: Positive for shortness of breath. 16:01 All other systems are negative. Exam: 16:01 Constitutional: This is a well developed, well nourished patient who is awake, alert, jmm and in no acute distress. Head/Face: atraumatic. Eyes: EOMI, no conjunctival erythema appreciated ENT: Moist Mucus Membranes Neck: Trachea midline, Supple Chest/axilla: Normal chest wall appearance and motion. Cardiovascular: Regular rate and rhythm. No edema appreciated 16:01 Back: Normal ROM Skin: General appearance color normal MS/ Extremity: Moves all extremities, no obvious deformities appreciated, no edema noted to the lower extremities Neuro: Awake and alert, normal gait Psych: Behavior is normal, Mood is normal, Patient is cooperative and pleasant 16:01 Respiratory: mild respiratory distress is noted, Respirations: labored breathing, that is mild, Breath sounds: wheezing: that is mild, is scattered. 16:01 Abdomen/GI: Inspection: obese Bowel sounds: normal. Vital Signs: 15:57 BP 123 / 79; Pulse 96; Resp 20; Temp 98.4(O); Pulse Ox 93% on 2 lpm NC; Weight 154.67 ph kg; Height 5 ft. 9 in. (175.26 cm); 16:30 BP 135 / 88; Pulse 96; Resp 19; Pulse Ox 92% ; jl7 17:19 BP 138 / 88; Pulse 96; Resp 21; Pulse Ox 94% ; jl7 18:07 BP 142 / 84; Pulse 93; Resp 21; Pulse Ox 93% ; jl7 21:32 BP 130 / 88; Pulse 92; Resp 20; Pulse Ox 98% ; ea 15:57 Body Mass Index 50.36 (154.67 kg, 175.26 cm) ph MDM: 16:05 Patient medically screened. christiano 19:37 Data reviewed: vital signs, nurses notes. Counseling: I had a detailed discussion with sancho the patient and/or guardian regarding: the historical points, exam findings, and any diagnostic results supporting the discharge/admit diagnosis, lab results, the need for further work-up and treatment in the hospital. ED course: I discussed the patient with Dr. Flavio Hidalgo ENP whom accepted the patient to Dr. Lipscomb's service. . 11/27 16: Order name: Basic Metabolic Panel; Complete Time: 18:41 [facility] 11/27 16: Order name: CBC with Diff; Complete Time: 18:05 [facility] 11/27 16:01 Order name: LFT's; Complete Time: 18:41 [facility] 11/27 16:01 Order name: Magnesium; Complete Time: 18:41 [facility] 11/27 16:01 Order name: NT PRO-BNP; Complete Time: 18:41 [facility] 11/27 16:01 Order name: PT-INR; Complete Time: 18:41 [facility] 11/27 16:01 Order name: Troponin (emerg Dept Use Only); Complete Time: 18:41 [facility] 11/27 16:02 Order name: Blood Culture Adult (2) [facility] 11/27 16:02 Order name: Procalcitonin [facility] 11/27 16:02 Order name: Lactate [facility] 11/27 16:02 Order name: COVID-19 : Document "Date of Symptom Onset" if Symptomatic. [facility] 11/27 16:03 Order name: Blood Culture [facility] 11/27 16:03 Order name: Procalcitonin; Complete Time: 19:03 [facility] 11/27 16:03 Order name: Lactate; Complete Time: 18:41 [facility] 11/27 16:01 Order name: XRAY Chest (1 view); Complete Time: 17:53 [facility] 11/27 16:01 Order name: EKG; Complete Time: 16:02 [facility] 11/27 16:01 Order name: Cardiac monitoring; Complete Time: 18:10 [facility] 11/27 16:01 Order name: EKG - Nurse/Tech; Complete Time: 18:10 [facility] 11/27 16:01 Order name: IV Saline Lock; Complete Time: 18:10 [facility] 11/27 16:01 Order name: Labs collected and sent; Complete Time: 18:17 [facility] 11/27 16:01 Order name: O2 Per Protocol; Complete Time: 18:17 [facility] 11/27 16:01 Order name: O2 Sat Monitoring; Complete Time: 18:17 [facility] 11/27 18:08 Order name: SARS-COV-2 RT PCR; Complete Time: 18:41 [facility] 11/27 19:37 Order name: ABG 11/27 19:51 Order name: BIPAP [facility] Administered Medications: 19:32 Drug: Xopenex (3) 1.25 mg Route: Inhalation; ea 19:32 Drug: SOLU-Medrol 125 mg Route: IVP; Site: right antecubital; ea Disposition: 11/28 09:39 Co-signature as Attending Physician, Serge Gonzales MD I agree with the assessment and christiano plan of care. Disposition: 11/27/20 19:39 Hospitalization ordered by Adams Lipscomb for Observation. Preliminary diagnosis is Chronic obstructive pulmonary disease with (acute) exacerbation. - Bed requested for Telemetry/MedSurg (observation). - Status is Observation. ea - Condition is Stable. - Problem is an acute exacerbation. - Symptoms have improved. Signatures: Dispatcher [employer] EDLA Omayra Hernandez RN RN dw Anderson, Corey, MD MD cha Mickail, Joel, PA PA [facility] Lillian Kincaid RN RN ph Antunez, Elena, RN RN ea Corrections: (The following items were deleted from the chart) 11/27 17:13 16:03 CORONAVIRUS ordered. [facility] 20:18 19:39 Hospitalization Ordered by Adams Lipscomb MD for Observation. Preliminary dw diagnosis is Chronic obstructive pulmonary disease with (acute) exacerbation. Bed requested for Telemetry/MedSurg (observation). Status is Observation. Condition is Stable. Problem is an acute exacerbation. Symptoms have improved. [facility] 21:35 20:18 11/27/2020 19:39 Hospitalization Ordered by Adams Lipscomb MD for Observation. ea Preliminary diagnosis is Chronic obstructive pulmonary disease with (acute) exacerbation. Bed requested for Telemetry/MedSurg (observation). Status is Observation. Condition is Stable. Problem is an acute exacerbation. Symptoms have improved. dw
--- NOTE | 2020-11-27 19:39 | ER ---
Nurse's Notes [facility] Name: Rosio Jain Age: 65 yrs Sex: Female : 1955 Arrival Date: 11/27/2020 Time: 15:57 Bed 4 Private MD: Diagnosis: Chronic obstructive pulmonary disease with (acute) exacerbation Presentation: 11/27 15:57 Chief complaint: EMS states: C/O difficulty breathing, Spo2 90% RA, improved to 96% on ph 2L NC, pt hx of COPD, also reports loose stools and nausea, denies fever or cough. Pt reports that she uses oxygen at home \T\ 2L. Coronavirus screen: Client denies travel out of the [place] in the last 14 days. diarrhea, difficulty breathing, shortness of breath, Client presents with at least one sign or symptom that may indicate coronavirus-19. Standard/surgical mask placed on the client. Provider contacted for isolation considerations. Ebola Screen: No symptoms or risks identified at this time. Initial Sepsis Screen: Does the patient meet any 2 criteria? No. Patient's initial sepsis screen is negative. Does the patient have a suspected source of infection? No. Patient's initial sepsis screen is negative. 15:57 Method Of Arrival: EMS: [facility] ph 16:03 Risk Assessment: Do you want to hurt yourself or someone else? Patient reports no ph desire to harm self or others. 16:03 Acuity: DYAN 3 ph 16:03 Onset of symptoms was November 27, 2020. ph Historical: - Allergies: 16:05 NKA; ph - Home Meds: 16:05 alprazolam 1 mg Oral tab [Active]; citalopram 20 mg tab 1 tab once daily [Active]; ph folic acid 400 mcg Oral tab 1 tab once daily [Active]; furosemide 20 mg Oral tab 1 tab once daily [Active]; levothyroxine 175 mcg tab [Active]; metoprolol tartrate 50 mg Oral tab [Active]; valsartan-hydrochlorothiazide 320-25 mg Oral tab 1 tab once daily [Active]; Xarelto 20 mg Oral tab 1 tab once daily [Active]; zolpidem 10 mg Oral tab 1 tab once daily [Active]; - PMHx: 16:05 ADD/ADHD; Anxiety; Asthma; COPD; Diabetes - NIDDM; Hypertension; Hypothyroidism; PE; ph - PSHx: 16:05 Thyroidectomy; ph - Immunization history:: Adult Immunizations unknown. - Social history:: Smoking status: Patient denies any tobacco usage or history of. Screenin:07 Abuse screen: Denies threats or abuse. Denies injuries from another. Nutritional jl7 screening: No deficits noted. Tuberculosis screening: No symptoms or risk factors identified. Fall Risk IV access (20 points). Total Torres Fall Scale indicates No Risk (0-24 pts). Assessment: 16:30 General: Appears in no apparent distress. uncomfortable, Behavior is calm, cooperative, jl7 appropriate for age. Pain: Complains of pain in BAUER. Neuro: Level of Consciousness is awake, alert, obeys commands, Oriented to person, place, time, situation. Cardiovascular: Rhythm is regular. Respiratory: Airway is patent Respiratory effort is even, labored, Respiratory pattern is regular, symmetrical. GI: Abdomen is round non-distended. Derm: Skin is pink, warm \T\ dry. 17:30 Reassessment: Patient appears in no apparent distress at this time. No changes from jl7 previously documented assessment. Patient and/or family updated on plan of care and expected duration. Pain level reassessed. Patient is alert, oriented x 3, equal unlabored respirations, skin warm/dry/pink. 19:00 General: Appears uncomfortable, Behavior is appropriate for age. Pain: Denies pain. ea Neuro: Level of Consciousness is awake, alert, obeys commands, Oriented to person, place, time, situation. Cardiovascular: Patient's skin is warm and dry. Respiratory: Airway is patent Respiratory effort is even, unlabored, Respiratory pattern is regular, symmetrical, pt currently on O2 at 2 L per nasal cannula. 21:21 Reassessment: Patient and/or family updated on plan of care and expected duration. Pain ea level reassessed. Patient is alert, oriented x 3, equal unlabored respirations, skin warm/dry/pink. Currently on BiPap. Report called to receiving nurse. Pt admitted to second floor. Left ED via stretcher per tech, accompanied by respiratory. Vital Signs: 15:57 BP 123 / 79; Pulse 96; Resp 20; Temp 98.4(O); Pulse Ox 93% on 2 lpm NC; Weight 154.67 ph kg; Height 5 ft. 9 in. (175.26 cm); 16:30 BP 135 / 88; Pulse 96; Resp 19; Pulse Ox 92% ; jl7 17:19 BP 138 / 88; Pulse 96; Resp 21; Pulse Ox 94% ; jl7 18:07 BP 142 / 84; Pulse 93; Resp 21; Pulse Ox 93% ; jl7 21:32 BP 130 / 88; Pulse 92; Resp 20; Pulse Ox 98% ; ea 15:57 Body Mass Index 50.36 (154.67 kg, 175.26 cm) ED Course: 15:57 Patient arrived in ED. ph 16:00 Bob Ramos PA is PHCP. m 16:00 Serge Gonzales MD is Attending Physician. [facility] 16:00 Patient has correct armband on for positive identification. Bed in low position. Call [facility] light in reach. Side rails up X2. athletic monitor on. Pulse ox on. NIBP on. Warm blanket given. 16:03 Triage completed. ph 16:21 Sheila Quintero RN is Primary Nurse. [facility] 17:01 XRAY Chest (1 view) In Process Unspecified. EDMS 17:25 First set of blood cultures drawn by me. EKG done, by ED staff, reviewed by Bob RED. Missed attempt(s): 20 gauge in left wrist. Bleeding controlled, band aid applied, catheter tip intact. 17:33 Inserted saline lock: 22 gauge in right wrist, using aseptic technique. Blood collected.[facility] 17:33 Initial lab(s) drawn, by wi, sent to lab. Second set of blood cultures drawn by me. [facility] 19:00 Arm band placed on right wrist. Patient placed in an exam room, on a stretcher, on ea pulse oximetry. 19:38 Adams Lipscomb MD is Hospitalizing Provider. [facility] 20:30 No provider procedures requiring assistance completed. Patient admitted, IV remains in ea place. 20:36 Primary Nurse role handed off by Sheila Quintero RN 21:20 Harmony Longoria RN is Primary Nurse. ea Administered Medications: 19:32 Drug: Xopenex (3) 1.25 mg Route: Inhalation; ea 19:32 Drug: SOLU-Medrol 125 mg Route: IVP; Site: right antecubital; ea Outcome: 19:39 Decision to Hospitalize by Provider. sancho 20:32 Admitted to Med/surg accompanied by tech, room 219, with oxygen, Report called to brenna Clemons RN 20:32 Condition: stable 20:32 Instructed on discharge instructions, Demonstrated understanding of instructions. 21:35 Patient left the ED. brenna Signatures: Dispatcher [employer] EDYohannes Griffin RN Bob Jordan PA PA jmm Hall, Patricia, RN RN Sheila Quintero RN RN jl7 Antunez, Elena, RN RN ea Corrections: (The following items were deleted from the chart) 16:03 16:03 Onset of symptoms was November 27, 2020 at 16:03 [facility]
[2020-11-27 19:53] LABS: Arterial Blood Carboxyhemoglob 2.1 % (0-1.5); Blood Gas Oxyhemoglobin 83.2 % (94-97); Blood O2 Saturation 85.9 % (92-98.5)
[2020-11-27] MEDS ORDERED: ACETAMINOPHEN 500 MG TAB PO PRN (20:56)
[2020-11-27] MEDS ORDERED: ONDANSETRON 4 MG/2 ML VIAL IV PRN (20:56)
[2020-11-27] MEDS: DULERA 100/5 (MOMETASONE/FORMOTEROL) INHALER IH SCH (21:00)
--- NOTE | 2020-11-27 21:06 | P.HP ---
Certification for Inpatient Patient admitted to: Inpatient With expected LOS: >2 Midnights Patient will require the following post-hospital care: None Practitioner: I am a practitioner with admitting privileges, knowledge of patient current condition, hospital course, and medical plan of care. Services: Services provided to patient in accordance with Admission requirements found in Title 42 Section 412.3 of the Code of Federal Regulations <Flavio Hidalgo - Last Filed: 11/27/20 20:56> Patient History Date of Service: 11/27/20 Primary Care Provider: Dr. Fong Reason for admission: Acute on chronic respiratory failure History of Present Illness: 65-year-old female with history of pulmonary embolism on chronic anticoagulation therapy with Xarelto, hypertension, hyperlipidemia, diabetes mellitus type 2, asthma, hypothyroidism, obesity presents the emergency department for shortness of breath. Patient reports increasing shortness breath over the course of the last 2-3 days. Patient evaluated in the emergency department chest x-ray with no significant change and moderate to marked right and mild to moderate left pulmonary opacities likely chronic in nature with enlarged heart. White blood cell count 7.5 ABG demonstrates pH 7.32, pCO2 68.5 PO2 57.6 bicarb 34.6. Patient is on home oxygen at 3 L per nasal cannula, patient mildly hypoxic on 3-4 L per nasal cannula saturating in the low 90s to high 80s. Patient with expiratory wheezing on exam coming ED provider wishes to admit patient for asthma exacerbation for further evaluation and management. - Past Medical/Surgical History Diabetic: Yes -: Hypertension -: Diabetes mellitus type 2 -: Secondary hypothyroidism -: DVT/PE -: Kidney stones -: Anxiety -: COPD -: Tubal Ligation -: Kidney stone removal -: cyst on thyroid removed -: enterocutaneous fistula repair Psychosocial/ Personal History: Patient lives at home with her family - Family History Father -: Heart disease Notes: she was adopted,, she does not know her family history - Social History Smoking Status: Never smoker Alcohol use: No CD- Drugs: No Caffeine use: Yes <Flavio Hidalgo - Last Filed: 11/27/20 20:56> Date of Service: 11/28/20 <Adams Lipscomb - Last Filed: 11/28/20 16:33> Allergies No Known Allergies Allergy (Verified 11/27/20 22:17) Home Medications: RX: ALPRAZolam [Alprazolam] 1 mg PO TID PRN 02/12/18 RX: Furosemide [Lasix*] 20 mg PO DAILY 02/12/18 RX: Citalopram [Celexa*] 20 mg PO DAILY 03/24/18 RX: allopurinoL [Zyloprim*] 1 tab PO DAILY 03/24/18 RX: Folic Acid 1 mg PO DAILY 04/05/20 RX: Rivaroxaban [Xarelto*] 20 mg PO DAILY AT SUPPER #7 tablet 04/05/20 RX: Etodolac [Lodine] 400 mg PO BID 09/22/20 RX: Levothyroxine Sodium [Levothyroxine] 175 mcg PO DAILY 09/22/20 RX: Metoprolol Succinate [Toprol Xl] 100 mg PO DAILY 09/22/20 RX: predniSONE [Prednisone*] 10 mg PO BID 09/22/20 RX: Levothyroxine [Synthroid*] 0.2 mg PO DAILYAC #60 tab 09/25/20 RX: acetaZOLAMIDE [Diamox*] 250 mg PO DAILY #30 tab 09/25/20 Hydrocodone 10/APAP 325 [[place] 10/325*] 1 tab PO Q4HP PRN 11/27/20 Review of Systems General: Weakness Respiratory: Shortness of Breath, Wheezing <Flavio Hidalgo - Last Filed: 11/27/20 20:56> Physical Examination - Physical Exam General: Alert, In no apparent distress, Oriented x3 HEENT: Atraumatic, Normocephalic, PERRLA Neck: Supple Respiratory: Expiratory wheezes (Bilaterally, moderate) Cardiovascular: Regular rate/rhythm, Normal S1 S2, Edema (Mild lower extremity edema noted) Capillary refill: <2 Seconds Gastrointestinal: Normal bowel sounds, Soft and benign Musculoskeletal: No contractures, No erythema, No tenderness Integumentary: No significant lesion, No tenderness/swelling, No erythema Neurological: Normal speech, Normal strength at 5/5 x4 extr, Normal tone - Studies Laboratory Data (last 24 hrs) 11/27/20 17:36: PT 15.1 H, INR 1.31 11/27/20 17:36: WBC 7.50, Hgb 12.9, Hct 40.3, Plt Count 174 11/27/20 17:36: Sodium 145, Potassium 3.9, BUN 32 H, Creatinine 0.79, Glucose 107 H, Magnesium 2.1, Total Bilirubin 0.5, AST 9 L, ALT 12, Alkaline Phosphatase 80 <Flavio Hidalgo - Last Filed: 11/27/20 20:56> - Studies Laboratory Data (last 24 hrs) 11/27/20 17:36: PT 15.1 H, INR 1.31 11/27/20 17:36: WBC 7.50, Hgb 12.9, Hct 40.3, Plt Count 174 11/27/20 17:36: Sodium 145, Potassium 3.9, BUN 32 H, Creatinine 0.79, Glucose 107 H, Magnesium 2.1, Total Bilirubin 0.5, AST 9 L, ALT 12, Alkaline Phosphatase 80 <Adams Lipscomb - Last Filed: 11/28/20 16:33> Assessment and Plan - Plan Assessment Acute on chronic hypoxic, hypercapnic respiratory failure secondary to COPD exacerbation History of PE/DVT on chronic anticoagulation therapy with Xarelto Diabetes mellitus type 2 Hypertension Hyperlipidemia Hypothyroidism Generalized Weakness, bedridden Plan Acute on chronic hypoxic, hypercapnic respiratory failure secondary to COPD exacerbation: Patient started on BiPAP after ABG obtained, continue with scheduled nebs, IV steroids, pulmonology consult in place. Continue to Xarelto for DVT prophylaxis. Appreciate further input from pulmonology. History of PE/DVT on chronic anticoagulation therapy with Xarelto: Continue Xarelto. Diabetes mellitus type 2: A.c. HS Accu-Cheks, sliding scale insulin therapy. Hypertension: Obtain and continue home medications. Hyperlipidemia: Obtain and continue home medications. Hypothyroidism: Obtain and continue home medications. Generalized Weakness, bedridden: Patient reports being essentially bedridden at home in the past months, supposed to start PT/OT at home in the next few days, will have physical therapy see patient while in the hospital. Could possibly benefit from placement if patient is willing. Discharge Plan: Home Plan to discharge in: 48 Hours - Advance Directives Does patient have a Living Will: Yes Does patient have a Durable POA for Healthcare: Yes - Code Status/Comfort Care Code Status Assessed: Yes (Full code) Critical Care: No Time Spent Managing Pts Care (In Minutes): 55 <Flavio Hidalgo - Last Filed: 11/27/20 20:56> - Plan Plan of care reviewed as noted above by Flavio Attema and agree as noted. acute on chronic COPD exacerbation. IV steroids, nebulizers, pulm consulted continue home medications <Adams Lipscomb - Last Filed: 11/28/20 16:33>
[2020-11-27 22:31] VITALS: BMI 48.4
[2020-11-27] MEDS: INSULIN -REGULAR HUMAN 50 UNIT/0.5 ML ML SQ SCH (22:41)
[2020-11-28] MEDS: METHYLPREDNISOLONE 125 MG INJ IV SCH ×3 (00:26→17:02)
[2020-11-28] MEDS: ALBUTEROL 2.5 MG/3 ML NEB SOL NEB SCH ×4 (01:30→20:30)
[2020-11-28] MEDS: IPRATROPIUM BROM 0.5MG/2.5ML NEB SCH ×4 (01:30→20:30)
[2020-11-28] MEDS ORDERED: ALPRAZOLAM 1 MG TABLET PO PRN (04:55)
[2020-11-28 06:12] LABS: Arterial Blood Carboxyhemoglob 1.6 % (0-1.5); Blood Gas Oxyhemoglobin 94.2 % (94-97); Blood O2 Saturation 96.6 % (92-98.5)
[2020-11-28 06:15] LABS: Absolute Lymphocytes (CBC) 0.4 K/uL (0.7-4.9); Basophils % 0.2 % (0-1.3); Lymphocytes % 6.2 % (15.3-44.8); MPV 8.3 fL (7.6-11.3); RBC Red Blood Cell Count 4.57 M/uL (3.86-4.86)
[2020-11-28] MEDS: LEVOTHYROXINE SOD 0.1 MG TAB PO SCH (06:29)
[2020-11-28 06:34] LABS: Albumin 2.9 g/dL (3.4-5.0); Bilirubin Total 0.4 mg/dL (0.2-1.0); Potassium 4.1 mmol/L (3.5-5.1); Protein, Total 7.5 g/dL (6.4-8.2); Thyroid Stimulating Hormone 0.687 uIU/mL (0.360-3.740)
[2020-11-28] MEDS: FOLIC ACID 1 MG TABLET PO SCH (08:30)
[2020-11-28] MEDS: acetaZOLAMIDE 250 MG TAB PO SCH (08:30)
[2020-11-28] MEDS: METOPROLOL XL 100 MG TAB PO SCH (08:31)
[2020-11-28] MEDS: FUROSEMIDE 20 MG/ 2ML VIAL IV SCH ×2 (08:31→17:03)
[2020-11-28] MEDS: CITALOPRAM 10 MG TABLET PO SCH (08:31)
[2020-11-28] MEDS: allopurinoL 100 MG TAB PO SCH (08:32)
[2020-11-28] MEDS: FUROSEMIDE 20 MG TABLET PO SCH (08:33)
[2020-11-28] MEDS: DULERA 100/5 (MOMETASONE/FORMOTEROL) INHALER IH SCH ×3 (08:34→21:00)
[2020-11-28] MEDS: ETODOLAC 400 MG PO SCH ×2 (08:35→21:00)
[2020-11-28] MEDS: INSULIN -REGULAR HUMAN 50 UNIT/0.5 ML ML SQ SCH ×4 (08:35→21:00)
[2020-11-28] MEDS: HYDROCODONE/APAP 10/325 TAB PO PRN ×2 (08:39→21:14)
[2020-11-28] MEDS ORDERED: HOME MED 1 EA UNK (Levothyroxine Sodium [Levothyroxine] 175 MCG Capsule) PO SCH (09:00)
[2020-11-28] MEDS ORDERED: INFLUENZA VACCINE (for 3y+) 0.5 ML DOSE IMVAC ONE (09:00)
[2020-11-28] MEDS ORDERED: ENOXAPARIN 40 MG/0.4 ML SQ SCH (09:00)
[2020-11-28 11:42] LABS: Blood Morphology Comment NOT SEEN (NOT SEEN); Platelet Estimate ADEQ; White Blood Cell Scan OK (OK)
--- NOTE | 2020-11-28 16:43 | P.PN ---
Subjective Date of Service: 11/28/20 Primary Care Provider: Dr. Fong Chief Complaint: Acute on chronic respiratory failure Subjective: Improving (slight improvement in breathing, but "not much" yet. Also reporting some hematuria over the last few days. h/o kidney stones and chronic back pain. reports back pain is not worse. no other urinary symptoms) Review of Systems 10-point ROS is otherwise unremarkable Physical Examination - Vital Signs Temperature: 97 F Blood Pressure: 167/85 Pulse: 79 Respirations: 22 Pulse Ox (%): 94 - Studies Laboratory Data (last 24 hrs) 11/27/20 17:36: PT 15.1 H, INR 1.31 11/27/20 17:36: WBC 7.50, Hgb 12.9, Hct 40.3, Plt Count 174 11/27/20 17:36: Sodium 145, Potassium 3.9, BUN 32 H, Creatinine 0.79, Glucose 107 H, Magnesium 2.1, Total Bilirubin 0.5, AST 9 L, ALT 12, Alkaline Phosphatase 80 Assessment & Plan Physician Review Additional Text: Physical Exam General: alert, NAD Pulm: expiratory wheeze, diminished air movement; on 4L NC CV: RRR, no murmur, trace b/l lower extremity maria isabel Abd: soft, NTND Msk: no erythema/tenderness Skin: no lesions Neurological: Normal speech, Normal strength at 5/5 x4 extr, Normal tone Problem List Acute on chronic hypoxic, hypercapnic respiratory failure secondary to COPD exacerbation History of PE/DVT on chronic anticoagulation therapy with Xarelto Diabetes mellitus type 2 Hypertension Hyperlipidemia Hypothyroidism Generalized Weakness, bedridden weaned to nasal cannula continue IV steroids, scheduled nebs, pulm consulted minimal improvement so far continue xarelto continue home medications PT/OT ordered UA ordered to eval this hematuria - back pain is chronic, but does report h/o kidney stones, no change in pain will confirm hematuria, and may need KUB / CT to eval for stone Code: full VTE: xarelto Dispo: discussed with patient given ongoing weakness, "bedbound" status over the last few months. Prefers to go home - has home health / private caregiver, and to start home PT/OT this week anticipate dc home in 1-2 days Time Spent Managing Pts Care (In Minutes): 35
[2020-11-28] MEDS: RIVAROXABAN 20 MG TABLET PO SCH (17:03)
[2020-11-28] MEDS ORDERED: HYDRALAZINE HCL 20 MG/ML VIAL IV PRN (17:32)
[2020-11-29] MEDS: METHYLPREDNISOLONE 125 MG INJ IV SCH ×2 (00:22→08:56)
[2020-11-29] MEDS: ALBUTEROL 2.5 MG/3 ML NEB SOL NEB SCH ×4 (01:45→19:55)
[2020-11-29] MEDS: IPRATROPIUM BROM 0.5MG/2.5ML NEB SCH ×4 (01:45→19:55)
--- NOTE | 2020-11-29 04:36 | EKG ---
Test Date: 2020-11-27 Test Time: 15:22:57 Veterinary Manager: BURT MEASUREMENT RESULTS: Intervals: Rate: 99 SC: 158 QRSD: 84 QT: 352 QTc: 451 [place]: P: 35 SC: 158 QRS: -7 T: 74 INTERPRETIVE STATEMENTS: Normal sinus rhythm Minimal voltage criteria for LVH, may be normal variant Borderline ECG Compared to ECG 09/21/2020 20:42:18 No significant changes Electronically Signed On 11-29-20 04:32:41 CDT by Kush Hernández
[2020-11-29 04:38] LABS: Absolute Lymphocytes (CBC) 0.9 K/uL (0.7-4.9); Basophils % 0.1 % (0-1.3); Hematocrit 39.4 % (36.0-45.0); Lymphocytes % 6.2 % (15.3-44.8); MPV 8.2 fL (7.6-11.3)
[2020-11-29 04:46] LABS: Potassium 4.1 mmol/L (3.5-5.1)
[2020-11-29] MEDS: LEVOTHYROXINE SOD 0.1 MG TAB PO SCH (06:09)
[2020-11-29] MEDS: FOLIC ACID 1 MG TABLET PO SCH (08:56)
[2020-11-29] MEDS: FUROSEMIDE 20 MG TABLET PO SCH (08:56)
[2020-11-29] MEDS: acetaZOLAMIDE 250 MG TAB PO SCH (08:56)
[2020-11-29] MEDS: CITALOPRAM 10 MG TABLET PO SCH (08:57)
[2020-11-29] MEDS: ETODOLAC 400 MG PO SCH ×2 (08:57→21:00)
[2020-11-29] MEDS: INSULIN -REGULAR HUMAN 50 UNIT/0.5 ML ML SQ SCH ×4 (08:57→22:21)
[2020-11-29] MEDS: allopurinoL 100 MG TAB PO SCH (08:58)
[2020-11-29] MEDS: METOPROLOL XL 100 MG TAB PO SCH (10:20)
[2020-11-29] MEDS: DULERA 100/5 (MOMETASONE/FORMOTEROL) INHALER IH SCH ×2 (10:20→21:00)
[2020-11-29] MEDS: FUROSEMIDE 20 MG/ 2ML VIAL IV SCH ×2 (10:21→16:05)
--- NOTE | 2020-11-29 12:09 | P.CNS ---
Date of Consult: 11/29/20 Primary Care Provider: Dr. Fong Chief Complaint: Acute on chronic respiratory failure History of Present Illness: Patient is 65 years of age as on chronic anticoagulation hypertension metabolic syndrome with a history of asthma presents to the emergency room got worse last Friday worsening shortness of breath she stopped taking of bronchodilators in started using oxygen as found to be hypoxic hypercapnic apparently she had a history of sleep apnea lost a lot of weight currently not snoring not using BiPAP Allergies No Known Allergies Allergy (Verified 11/27/20 22:17) Home Medications: ALPRAZolam [Alprazolam] 1 mg PO TID PRN 02/12/18 Furosemide [Lasix*] 20 mg PO DAILY 02/12/18 Citalopram [Celexa*] 20 mg PO DAILY 03/24/18 allopurinoL [Zyloprim*] 1 tab PO DAILY 03/24/18 Folic Acid 1 mg PO DAILY 04/05/20 Rivaroxaban [Xarelto*] 20 mg PO DAILY AT SUPPER #7 tablet 04/05/20 Etodolac [Lodine] 400 mg PO BID 09/22/20 Levothyroxine Sodium [Levothyroxine] 175 mcg PO DAILY 09/22/20 Metoprolol Succinate [Toprol Xl] 100 mg PO DAILY 09/22/20 predniSONE [Prednisone*] 10 mg PO BID 09/22/20 Levothyroxine [Synthroid*] 0.2 mg PO DAILYAC #60 tab 09/25/20 acetaZOLAMIDE [Diamox*] 250 mg PO DAILY #30 tab 09/25/20 Hydrocodone 10/APAP 325 [[place] 10/325*] 1 tab PO Q4HP PRN 11/27/20 - Past Medical/Surgical History Diabetic: Yes -: Hypertension -: Diabetes mellitus type 2 -: Secondary hypothyroidism -: DVT/PE -: Kidney stones -: Anxiety -: COPD -: Asthma -: ARTHRITIS/GOUT -: Tubal Ligation -: Kidney stone removal -: cyst on thyroid removed -: enterocutaneous fistula repair Psychosocial/ Personal History: Patient lives at home with her family - Family History Father Medical History: Heart disease Notes: she was adopted,, she does not know her family history - Social History Smoking Status: Never smoker Alcohol use: No CD- Drugs: No Caffeine use: Yes Place of Residence: Home Review of Systems 10-point ROS is otherwise unremarkable General: Weakness Respiratory: Shortness of Breath Physical Examination Temp Pulse Resp BP Pulse Ox 96.9 F 76 23 H 140/81 95 11/29/20 08:00 11/29/20 10:11/29/20 08:00 11/29/20 10:11/29/20 08:00 General: Alert, In no apparent distress, Oriented x3 Respiratory: Diminished, Expiratory wheezes Cardiovascular: No edema, Normal S1 S2 Gastrointestinal: Normal bowel sounds - Problems (1) Acute and chronic respiratory failure ([id number]) Current Visit: No Status: Acute Plan: Patient is 65 years of age with a history of obstructive airways disease metabolic syndrome admitted with worsening shortness of breath uses started on oxygen stop taking a bronchodilator patient has significant pulmonary fibrosis dating back x-rays in 2017 white count was normal no recent echocardiogram oxygenation satisfactory blood pressure is also satisfactory patient has hypoxemia and hypercapnia mild hyperglycemia change to p.o. prednisone the have underlying diastolic dysfunction at spironolactone echocardiogram Qualifiers: Respiratory failure complication: hypoxia and hypercapnia Qualified Code(s): J96.21 - Acute and chronic respiratory failure with hypoxia; J96.22 - Acute and chronic respiratory failure with hypercapnia
[2020-11-29 12:12] LABS: Urine Appearance CLOUDY; Urine Bilirubin NEGATIVE (NEG); Urine Blood 3+ (NEG); Urine Color YELLOW; Urine Glucose NEGATIVE (NEG); Urine Protein NEGATIVE (NEG); Urine Specific Gravity <=1.005 (1.005-1.030); Urine Urobilinogen 0.2 mg/dL (0.2-1.0)
[2020-11-29 12:13] LABS: Urine Microscopic Reflex ORDER UMIC
[2020-11-29] MEDS: HYDROCODONE/APAP 10/325 TAB PO PRN ×2 (12:35→16:03)
[2020-11-29 12:58] LABS: Urine Amorphous Sediment 1+ /HPF (NONE SEEN); Urine Bacteria >50 /HPF (<20)
--- NOTE | 2020-11-29 13:52 | P.PN ---
Subjective Date of Service: 11/29/20 Primary Care Provider: Dr. Fong Chief Complaint: Acute on chronic respiratory failure Subjective: Improving (slight improvement in breathing, still SOB, still tachypneic, 88-92% on 2-3L NC) Review of Systems 10-point ROS is otherwise unremarkable Physical Examination - Vital Signs Temperature: 97.1 F Blood Pressure: 148/77 Pulse: 84 Respirations: 23 Pulse Ox (%): 95 Assessment & Plan Physician Review Additional Text: Physical Exam General: alert, NAD, morbidlly obese Pulm: expiratory wheeze, diminished air movement; on 2.5L NC CV: RRR, no murmur, trace b/l lower extremity edema Abd: soft, NTND Msk: no erythema/tenderness Skin: no lesions Neurological: Normal speech, Normal strength at 5/5 x4 extr Problem List Acute on chronic hypoxic, hypercapnic respiratory failure secondary to COPD exacerbation History of PE/DVT on chronic anticoagulation therapy with Xarelto Diabetes mellitus type 2 hematuria - present on admission Hypertension Hyperlipidemia Hypothyroidism Generalized Weakness, bedridden weaned to nasal cannula, scheduled nebs, pulm consulted, change IV steroids to PO mild improvement continue xarelto for h/o PE continue home medications PT/OT ordered UA ordered to eval hematuria - concerning for possible UTI, will add rocephin, f/u culture CT stone protocol ordered today Code: full VTE: xarelto Dispo: discussed with patient given ongoing weakness, "bedbound" status over the last few months. Prefers to go home - has home health / private caregiver, and to start home PT/OT this week anticipate dc home in 1-2 days Time Spent Managing Pts Care (In Minutes): 35
--- NOTE | 2020-11-29 14:14 | RAD REPORT ---
EXAM DESCRIPTION: CT - Stone Protocol - 11/29/2020 1:48 pm CLINICAL HISTORY: hematuria, h/o nephrolithiasis many years ago COMPARISON: Abdomen Pelvis W Contrast dated 05/04/2018 TECHNIQUE: Axial 5 mm thick images were obtained without oral or IV contrast. The [id number] span s the entirety of the system including uppermost abdomen and lung bases. All CT scans are performed using dose optimization technique as appropriate and may include automated exposure control or mA/KV adjustment according to patient size. FINDINGS: Extensive interstitial lung disease present in each base. Pattern is similar to comparison . Right shift of the heart also matches the 2018 study. No hydronephrosis of either kidney. Patient has bilateral nonobstructing calyx calculi. There is line ar calcification posterior mid right kidney that continues into the calyx and pelvis. The large stagh orn type calcification in the left pelvis 2018 is no longer present. The patient does have a punctate 2 millimeter calcification layering in the posterior portion of the nondilated pelvis. No suspicious renal masses. Isodense masses and pyelonephritis are not excluded on a stone protocol CT scan. No si gnificant adrenal finding. No urinary bladder suspicious finding. Multiple pelvic floor phleboliths a re present not clearly different from comparison. No convincing evidence for a distal ureteral calcul us. Lobulated contour to the liver is again noted. No focal liver lesions on noncontrast imaging. Pancrea s and spleen show no acute findings. No gallbladder or biliary tree abnormality identified. No gastric dilatation or gastric wall thickening. No dilated small bowel or acute small bowel finding . Moderate stool volume is present filling but not dilating the colon from cecum to splenic flexure. Sigmoid diverticulosis is present. Sigmoid anastomosis shows no acute findings. Moderately large stoo l volume fills the distal sigmoid and there is a large amount of stool in the rectum dilating to 8 cm . Ovaries are atrophic. Atrophic uterus is present. Air is present in the endometrial cavity likely due to an incompetent cervix. There is air present in the vaginal vault. CT imaging is limited in assess ment of the cervix. No hernia, mass or bulky lymphadenopathy noted. No free air, free fluid or inflammatory stranding. No significant bony abnormality. IMPRESSION: No hydronephrosis present and no obstructing renal calculus seen. Patient has nonobstructing calyx and pelvis calculi is well is bilateral renal parenchymal calculi. No mass of either kidney. No evidence for bladder mass. Isodense masses and pyelonephritis are not ex cluded on a noncontrast study. Air in the endometrial cavity is presumed to be from an incompetent cervix. Air is seen in the vagina l vault as well. CT imaging is limited in evaluation of the cervix. No gross abnormality seen. Isodense masses and pyelonephritis are not excluded on stone protocol technique.
[2020-11-29] MEDS: CEFTRIAXONE/SWI 1gm 1 GM/10 ML SYR IVP SCH (14:24)
[2020-11-29] MEDS: RIVAROXABAN 20 MG TABLET PO SCH (16:02)
[2020-11-29] MEDS: SPIRONOLACTONE 25 MG TABLET PO SCH (22:21)
[2020-11-29] MEDS: predniSONE 20 MG TAB PO SCH (22:21)
[2020-11-30] MEDS: ALBUTEROL 2.5 MG/3 ML NEB SOL NEB SCH ×3 (01:55→14:35)
[2020-11-30] MEDS: IPRATROPIUM BROM 0.5MG/2.5ML NEB SCH ×3 (01:55→14:35)
[2020-11-30 05:35] LABS: Basophils % 0.4 % (0-1.3); Hematocrit 43.6 % (36.0-45.0); Lymphocytes % 7.7 % (15.3-44.8); MPV 8.3 fL (7.6-11.3)
[2020-11-30 06:01] LABS: Magnesium 2.2 mg/dL (1.8-2.4); Potassium 4.1 mmol/L (3.5-5.1)
[2020-11-30] MEDS: LEVOTHYROXINE SOD 0.1 MG TAB PO SCH (06:22)
[2020-11-30] MEDS: INSULIN -REGULAR HUMAN 50 UNIT/0.5 ML ML SQ SCH ×2 (07:30→11:30)
[2020-11-30] MEDS: allopurinoL 100 MG TAB PO SCH (09:00)
[2020-11-30] MEDS: DULERA 100/5 (MOMETASONE/FORMOTEROL) INHALER IH SCH (09:00)
[2020-11-30] MEDS: ETODOLAC 400 MG PO SCH (09:00)
--- NOTE | 2020-11-30 10:42 | ECHO ---
HEIGHT: 5 ft 9 in WEIGHT: 327 lb 9.6 oz DATE OF STUDY: 11/29/[address]: German Villarreal MD 2-DIMENSIONAL: YES M.MODE: YES DOPPLER: YES COLOR FLOW: YES TDS: YES PORTABLE: DEFINITY: BUBBLE STUDY: DIAGNOSIS: HYPOXEMIA CARDIAC HISTORY: CATHERIZATION: NO SURGERY: NO PROSTHETIC VALVE: NO PACEMAKER: NO MEASUREMENTS (cm) DIASTOLIC (NORMALS) SYSTOLIC (NORMALS) IVSd 1.1 (0.6-1.2) LA Diam 3.0 (1.9-4.0) LVEF 52% LVIDd 4.4 (3.5-5.7) LVIDs 3.3 (2.0-3.5) %FS 26% LVPWd 1.1 (0.6-1.2) Ao Diam 2.4 (2.0-3.7) 2 DIMENSIONAL ASSESSMENT: RIGHT ATRIUM: NORMAL LEFT ATRIUM: NORMAL RIGHT VENTRICLE: NORMAL LEFT VENTRICLE: NORMAL TRICUSPID VALVE: NORMAL MITRAL VALVE: NORMAL PULMONIC VALVE: NORMAL AORTIC VALVE: NORMAL PERICARDIAL EFFUSION: NONE AORTIC ROOT: NORMAL LEFT VENTRICULAR WALL MOTION: NORMAL DOPPLER/COLOR FLOW: DIASTOLIC DYSFUNCTION COMMENTS: TECHNICALLY DIFFICULT STUDY. GROSSLY NORMAL LEFT VENTRICULAR SIZE AND EJECTION FRACTION. DECREASED LEFT VENTRICULAR COMPLIANCE. TECHNOLOGIST: LIDIA HAWTHORNE
[2020-11-30] MEDS: CEFTRIAXONE/SWI 1gm 1 GM/10 ML SYR IVP SCH (10:52)
[2020-11-30] MEDS: METOPROLOL XL 100 MG TAB PO SCH (10:53)
[2020-11-30] MEDS: predniSONE 20 MG TAB PO SCH (10:53)
[2020-11-30] MEDS: FUROSEMIDE 20 MG/ 2ML VIAL IV SCH (10:53)
[2020-11-30] MEDS: FOLIC ACID 1 MG TABLET PO SCH (10:54)
[2020-11-30] MEDS: acetaZOLAMIDE 250 MG TAB PO SCH (10:54)
[2020-11-30] MEDS: SPIRONOLACTONE 25 MG TABLET PO SCH (10:55)
[2020-11-30] MEDS: CITALOPRAM 10 MG TABLET PO SCH (10:55)
[2020-11-30] MEDS: HYDROCODONE/APAP 10/325 TAB PO PRN (10:56)
[2020-11-30 13:42] VITALS: BP 137/63; TEMP 97.2
[2020-11-30 16:04] VITALS: O2SAT 94
--- NOTE | 2020-11-30 20:47 | P.DS ---
Admission Date: 11/27/20 Discharge Date: 11/30/20 Primary Care Provider: Dr. Fong Disposition: DC HOME/HOME HEALTH CARE Discharge Condition: FAIR Reason for Admission: Acute on chronic respiratory failure Consultations: Pulmonology - Dr. Villarreal Procedures: CXR (11/27): No significant change in the moderate to marked right and [id number] left pulmonary opacities. I suspect that the majority of this is chronic CT Abd stone protocol(11/29): No hydronephrosis present and no obstructing renal calculus seen. Patient has nonobstructing calyx and pelvis calculi is well is bilateral renal parenchymal calculi. No mass of either kidney. No evidence for bladder mass. Isodense masses and pyelonephritis are not excluded on a noncontrast study. Air in the endometrial cavity is presumed to be from an incompetent cervix. Air is seen in the vaginal vault as well. CT imaging is limited in evaluation of the cervix. No gross abnormality seen. Isodense masses and pyelonephritis are not excluded on stone protocol technique. TTE (11/29): TECHNICALLY DIFFICULT STUDY. GROSSLY NORMAL LEFT VENTRICULAR SIZE AND EJECTION FRACTION. DECREASED LEFT VENTRICULAR COMPLIANCE. Problem List Acute on chronic hypoxic, hypercapnic respiratory failure secondary to COPD exacerbation Chronic Pulmonary Fibrosis History of PE/DVT on chronic anticoagulation therapy with Xarelto Diabetes mellitus type 2 Hematuria with Cystitis - present on admission Hypertension Hyperlipidemia Hypothyroidism Generalized Weakness, bedridden Brief History of Present Illness: 65yo F, PMH: PE on chronic anticoagulation therapy with Xarelto, HTN, HLD, DM2, Asthma, hypothyroidism, obesity who presents to the emergency department for s hortness of breath. Patient reports increasing shortness breath over the course of the last 2-3 days. Patient evaluated in the emergency department chest x-ray with no significant change and moderate to marked right and mild to moderate left pulmonary opacities likely chronic in nature with enlarged heart. White blood cell count 7.5 ABG demonstrates pH 7.32, pCO2 68.5 PO2 57.6 bicarb 34.6. Patient is on home oxygen at 3 L per nasal cannula, patient mildly hypoxic on 3- 4 L per nasal cannula saturating in the low 90s to high 80s. Patient with expiratory wheezing on exam coming ED provider wishes to admit patient for asthma/copd exacerbation for further evaluation and management. Hospital Course: Patient was treated for COPD exacerbation. She also later reported hematuria for a few days prior to admission. UA was suggestive of UTI and she was treated with antibiotics. Pulmonology was consulted, patient had an echocardiogram done which revealed some decreased LV compliance. Pulmonology was consulted, recommended discharge on steroids and add spironolactone to her home medications. She was feeling / breathing more comfortably on day of discharge. A CT -stone protocol was performed due to hematuria and history of nephrolithiasis. There was no obstructing stone or acute pathology. She was discharged home to follow up with Urology in the next 2-3 weeks. Patient expressed understanding and agreed with plan. She was discharged home to resume her home health and home PT. Vital Signs/Physical Exam: Physical Exam General: alert, NAD, morbidlly obese Pulm: expiratory wheeze, diminished air movement; on 2.5L NC CV: RRR, no murmur, trace b/l lower extremity edema Abd: soft, NTND Msk: no erythema/tenderness Skin: no lesions Neurological: Normal speech, Normal strength at 5/5 x4 extr Temp Pulse Resp BP Pulse Ox 97.2 F 61 18 137/63 95 11/30/20 12:00 11/30/20 12:00 11/30/20 12:00 11/30/20 12:00 11/30/20 12:00 Laboratory Data at Discharge: WBC 12.60 K/uL (4.3-10.9) H 11/30/20 05:06 Hgb 13.6 g/dL (12.0-15.0) 11/30/20 05:06 Hct 43.6 % (36.0-45.0) 11/30/20 05:06 Plt Count 188 K/uL (152-406) 11/30/20 05:06 PT 15.1 SECONDS (9.5-12.5) H 11/27/20 17:36 INR 1.31 11/27/20 17:36 Sodium 145 mmol/L (136-145) 11/30/20 05:06 Potassium 4.1 mmol/L (3.5-5.1) 11/30/20 05:06 BUN 36 mg/dL (7-18) H 11/30/20 05:06 Creatinine 0.68 mg/dL (0.55-1.3) 11/30/20 05:06 Glucose 108 mg/dL (74-106) H 11/30/20 05:06 Magnesium 2.2 mg/dL (1.8-2.4) 11/30/20 05:06 Total Bilirubin 0.4 mg/dL (0.2-1.0) 11/28/20 05:21 AST 6 U/L (15-37) L 11/28/20 05:21 ALT 12 U/L (12-78) 11/28/20 05:21 Alkaline Phosphatase 78 U/L (45-117) 11/28/20 05:21 Triglycerides 73 mg/dL (<150) 11/28/20 05:21 Cholesterol 106 mg/dL (<200) 11/28/20 05:21 HDL Cholesterol 42 mg/dL (40-60) 11/28/20 05:21 Cholesterol/HDL Ratio 2.52 11/28/20 05:21 Home Medications: ALPRAZolam [Alprazolam] 1 mg PO TID PRN 02/12/18 Citalopram [Celexa*] 20 mg PO DAILY 03/24/18 allopurinoL [Zyloprim*] 1 tab PO DAILY 03/24/18 Folic Acid 1 mg PO DAILY 04/05/20 Rivaroxaban [Xarelto*] 20 mg PO DAILY AT SUPPER #7 tablet 04/05/20 Etodolac [Lodine] 400 mg PO BID 09/22/20 Metoprolol Succinate [Toprol Xl] 100 mg PO DAILY 09/22/20 Levothyroxine [Synthroid*] 0.2 mg PO DAILYAC #60 tab 09/25/20 acetaZOLAMIDE [Diamox*] 250 mg PO DAILY #30 tab 09/25/20 Hydrocodone 10/APAP 325 [Sage 10/325*] 1 tab PO Q4HP PRN 11/27/20 Cefpodoxime Proxetil [Vantin] 200 mg PO BID 7 Days #14 tablet 11/30/20 Mometasone/Formoterol [Dulera 100 Mcg/5 Mcg Inhaler] 2 puff IH BID 30 Days #1 inhaler 11/30/20 Spironolactone [Aldactone*] 25 mg PO BID 30 Days #60 tab 11/30/20 predniSONE [Prednisone*] 20 mg PO BID 7 Days #14 tab 11/30/20 New Medications: Spironolactone [Aldactone*] 25 mg PO BID 30 Days #60 tab Mometasone/Formoterol [Dulera 100 Mcg/5 Mcg Inhaler] 2 puff IH BID 30 Days #1 inhaler predniSONE [Prednisone*] 20 mg PO BID 7 Days #14 tab Cefpodoxime Proxetil [Vantin] 200 mg PO BID 7 Days #14 tablet Physician Discharge Instructions: PROBLEM: Asthma exacerbation GOAL: Clear understanding of disease process INSTRUCTIONS: Diet: diabetic Activity: Fall precautions Your shortness of breath is due to your ongoing pulmonary fibrosis and COPD. There is some component of fluid retention as well. Your lasix was changed to spironolactone per Dr. Villarreal's recommendation. Continue diamox. You improved with nebulizers and steroids. Please continue taking your inhalers as prescribed. You are discharged with prednisone for 1 week. Follow up with Dr. Villarreal in 1 week. You were also found to have a UTI and will be discharged with an antibiotic. You had some slight blood in your urine and should follow up with Urology, Dr. Bull, within 3 weeks. Diet: ADA Activity: Fall precautions Followup: German Villarreal MD [ACTIVE - CAN ADMIT] - Arthur Fong MD [Primary Care Provider] - Lul Bull [ACTIVE - CAN ADMIT] - Time spent managing pt's care (in minutes): 40
== END 2020-11-30 16:22 | disposition home health service (06) | DRG 189 ==
LOC: ER 15:48 → OBSVTOIN 20:05 → ERHOLD 20:05 → INTOOBSV 20:05 → 2ND 20:48 → OBSVTOIN 11-28 17:16
PROVIDERS: ADMIT Hospitalist; ATTEND Hospitalist
PROC: 5A09457 Assistance with Respiratory Ventilation, 24-96 Consecutive Hours, Continuous Positive Airway Pressure (ICD-10-PCS; principal; 2020-11-28)
DX: J96.21 Acute and chronic respiratory failure with hypoxia (principal); J44.1 Chronic obstructive pulmonary disease with (acute) exacerbation; Z68.43 Body mass index [BMI] 50.0-59.9, adult; N39.0 Urinary tract infection, site not specified; J45.901 Unspecified asthma with (acute) exacerbation; J96.22 Acute and chronic respiratory failure with hypercapnia; E66.01 Morbid (severe) obesity due to excess calories; I10 Essential (primary) hypertension; G89.29 Other chronic pain; M54.9 Dorsalgia, unspecified; E11.65 Type 2 diabetes mellitus with hyperglycemia; J84.10 Pulmonary fibrosis, unspecified; E03.9 Hypothyroidism, unspecified; R31.9 Hematuria, unspecified; R53.1 Weakness; Z79.890 Hormone replacement therapy; Z79.01 Long term (current) use of anticoagulants; Z79.899 Other long term (current) drug therapy; Z86.711 Personal history of pulmonary embolism; Z86.718 Personal history of other venous thrombosis and embolism; Z98.51 Tubal ligation status; Z79.52 Long term (current) use of systemic steroids; Z74.01 Bed confinement status; Z20.822 Contact with and (suspected) exposure to COVID-19
CPT/HCPCS: 36415; 71045; 74176; 76377; 80048; 80053; 80061; 80076; 81003; 81015; 82805; 82947; 83036; 83605; 83735; 83880; 84145; 84439; 84443; 84484; 85025; 85610; 87040; 87077; 87086; 87088; 87186; 93005; 93306; 94640; 94660; 96374; 97110; 97161; 99285; G0378; J0696; J1940; J2930; J7512; J7606; U0003

== ENCOUNTER 2021-03-22 15:52 | Emergency (ER) | payer OTHER ==
--- OUTSIDE RECORDS SUMMARY | 2021-03-22 15:58 | XMS REPORT | Continuity of Care Document ---
:1955 Author Organization [facility] t Address [address] [place]. [place] [id number] Support Name Relationship Address Phone Cristobal Spouse [address] [place] [address] Librado Child [address] [place] [address] [phone] [place] [address] L Cristobal Spouse [address] [place] [address] [place] [address] Care Team Providers Name Role Phone Clay Fong MD Primary Care Physician Ajit BORREGO Attending Clinician Team, Health Maintenance Attending Clinician Unavailable Kimberly Shrestha MD Attending Clinician [phone] Saadia BORREGO Attending Clinician Dakotah BORREGO Attending Clinician Manjinder Nation MD Attending Clinician Unavailable Kee Littlejohn MD Attending Clinician Jean-Pierre BORREGO, Basilio Attending Clinician Rodrick BORREGO Attending Clinician KIMBERLY SHRESTHA Attending Clinician Unavailable GAL MULLEN Attending Clinician Unavailable SAADIA Admitting Clinician Unavailable GAL MULLEN Admitting Clinician Unavailable Payers Payer Name Policy Type Policy Effective Date Expiration Date Sour ce Number WELL[employer] MEDICARE [id number] [facility] MGD CAREWELLCARE 00:00:00 - Medica l [id number] Center 20-Present [employer]IG[employer] - MGD [id number] 2003 GERBER [place]man s CARECIGNA 00:00:00 - Medical HMO/POS/OPEN Center [id number] -Present HMO/POS Problems Condition Condition Condition Status Onset Resolution Last Treating Co mments Source Name Details Category Date Date Treatment Clinician Date Chronic Chronic Problem Active [facility] obstructiv Obstructiv 10-09 Fa lana e lung e Lung 00:00: Practic disease Disease 00 e Essential Essential Problem Active Diaz isabella hypertensi Hypertensi - Fa lana on on 00:00: Practic 00 e Chronic Chronic Problem Active [place] [facility] Kidney - Family disease Disease 00:00: Practic stage 3 Stage 3 00 e Chronic Chronic Problem Active [facility] kidney Kidney - Family disease Disease 00:00: Practic due to [...] 0-03 Amy kes - 00:00: Medical 00 [place] HTN HTN Disease Active 2019-[address] [facility] [...] c 00 e Insomnia Insomnia Problem Active Tashi ge 6-28 Family 00:00: Practic 00 e Hypothyroi Hypothyroi Problem Active [place] [facility] dism dism 6-24 Family 00:00: Practic 00 e 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 6-24 Family 00:00: Practic 00 e Chronic Chronic Problem Active [facility] back pain Back Pain 6-24 Fami ly 00:00: Practic 00 e Bilateral Bilateral Problem Active Diaz isabella knee pain Knee Pain 624 Fami ly 00:00: Practic e Chronic Chronic Problem Active [facility] gout Gout 1-17 Family without without 00:00: Practic tophus Tophus 00 e Morbid Morbid Disease Active [place] obesity obesity 3-30 [facility] with BMI with BMI 00:00: st of of 00 50.0-59.9, 50.0-59.9, adult adult Acute Acute Disease Active [place] renal renal 3-21 Methodi failure failure 00:00: st 00 [place] Disease [place] fistula l fistula 2-05 Meth justina 00:00: st 00 Chronic Chronic Problem Active 2016-[address] [facility] low back Low Back 2-12 Family [...] Benign Benign Problem Active 2006-[address] [facility] essential Essential 0-11 Fami ly hypertensi Hypertensi 00:00: Pr actic on e Type 2 Type 2 Problem Active 2006-[address] [facility] diabetes Diabetes 0-11 Family mellitus Mellitus 00:00: Practi c 00 e Allergies, Adverse Reactions, Alerts This patient has no known allergies or adverse reactions. Social History Social Habit Start Date Stop Date Quantity Comments Source Sex Assigned At [facility] Alcohol intake 2020-06-26 2020-06-26 [facility] - [facility]:00 [facility] Tobacco use and 2017-12-02 2017-12-02 Never used Gill M ethodist exposure 00:00:00 00:00:00 Smoking Status Start Date Stop Date Source Never smoker [facility] Medications Ordered Filled Start Stop Current Ordering Indication Dosage Frequency Signature Comments Components Source Medication Medication Date Date Medication? Clinician (SIG) Name Name levothyroxi 2019-09 Yes 175ug Take [address] [facility] ne 0-12 tablet [facility] - (SYNTHROID, 00:00: (175 mcg Me dical LEVOTHROID) 00 total) by [facility] ter 175 MCG mouth tablet Every [...] by mouth Center daily with dinner. senna 2019-09 No 8.6mg Take [address] (SENOKOT) [...] Center mouth 2 (two) times daily. ipratropium 2019-09 No 3mL Take [address] [address] -albuteroL 0-12 -07 by [facility] - (DUO-NEB) 00:00: 23:59 nebulizati M edical 0.5 mg-3 00 :00 on every 4 Cente r mg(2.5 mg (four) base)/3 mL hours for nebulizer 360 days. solution HYDROcodone 2019-09- No 1{tbl} Take [address] -acetaminop 0-12 10-27 tablet by Amy carranza (NORCO 00:00: 23:59 mouth Medic al 10-325) 00 :00 every 4 Center 10-325 mg (four) per tablet hours as needed for up to 15 days. Max Daily Amount: 6 tablets HYDROcodone 2019-09- No 1{tbl} Take [address] -acetaminop 0-12 10-12 tablet by Amy carranza (NORCO 00:00: 00:00 mouth Medic al 10-325) 00 :00 every 6 Center 10-325 mg (six) per tablet hours as needed for up to 10 days. Max Daily Amount: 4 tablets tizanidine tizanidine No tizanidine [facility] 4 mg tablet 4 mg tablet 5-11 4 mg F amily and and 00:00: tablet and Practic irritant-co irritant-co 00 irritant-c e unter unter ounter irritant irritant irritant comb.no.2 comb.no.2 comb.no.2 gel kit gel kit gel kit hydrochloro hydrochloro 2018-[address] [facility] thiazide thiazide 0-02 othiazide Fa lana 12.5 mg 12.5 mg 00:00: 12.5 mg Prac tic capsule capsule 00 capsule e levothyroxi Yes 175ug QD Take 175 [place] ne 4-05 mcg by Methodi (SYNTHROID, 15:53: mouth st LEVOXYL) 29 every 175 mcg morning. tablet ALPRAZolam Yes 1mg [id number] Take 1 mg Gill (XANAX) 1 4-03 [id number] by mouth 3 [facility]i MG tablet 13:48: [...] 50 mg 08 times a tablet day. albuterol Yes 2{puff} Q6H Inhale 2 [place] (PROAIR 4-03 puffs Methodi HFA,PROVENT 13:48: every 6 st [place] 08 (six) HFA,VENTOLI hours as N HFA) 90 needed for mcg/actuati wheezing. on inhaler fluocinonid Yes 1{appli Q.5D Apply 1 Gill [...] umeclidiniu Yes 1{puff} QD Inhale 1 Gill m-gunnar 2-09 puff daily Me thodi l (ANORO 00:00: for 30 st ELLIPTA) 00 days. 62.5-25 mcg/actuati on blister with device valsartan-h 2019- No [facility] ydrochlorot -16 10-12 [facility] - hiazide 00:00: 00:00 Medical (DIOVAN-HCT 00 :00 Center ) 320-25 mg per tablet HEMATINIC/F Yes [facility] OLIC ACID 09-16 [facility] - 324 mg (106 00:00: Medica l mg iron)- 00 Center mg Tab citalopram 2015-[address] (CELEXA) 20 2- [facility] - MG tablet 00:00: Medical 00 [place] furosemide 2015-09- No [facility] (LASIX) 20 2- 10-12 [facility] - MG tablet 00:00: 00:00 Medical 00 :00 [place] levothyroxi 2015-09- No [facility] ne 10-18 10- [facility] - (SYNTHROID, 00:00: 00:00 Medic al LEVOTHROID) 00 :00 [place] 150 MCG tablet metoprolol 2015-09- No [facility] (LOPRESSOR) 2 10-12 [facility] - 50 MG 00:00: 00:00 Medical tablet 00 :00 [place] potassium 2015-09- No [facility] citrate 2-11 22- [facility] - (UROCIT-K) 00:00: 00:00 Medica l 10 mEq 00 :00 [place] (1,080 mg) SR tablet zolpidem 2015-[address] (AMBIEN) 10 2- [facility] - mg tablet 00:00: Medical 00 [place] acetazolami acetazolami No acetazolam [facility] de 250 mg de 250 mg vesna 250 mg Family tablet TAKE tablet TAKE tablet Practic 1 TABLET BY 1 TABLET BY TAKE 1 e MOUTH EVERY MOUTH EVERY TABLET BY DAY DAY MOUTH EVERY DAY albuterol albuterol No albuterol [place] sulfate 2.5 sulfate 2.5 sulfate Family mg/3 mL mg/3 mL 2.5 mg/3 Pract ic (0.083 %) (0.083 %) mL (0.083 e solution solution %) for for solution nebulizatio nebulizatio for n n nebulizati on albuterol albuterol No albuterol [facility] sulfate HFA sulfate HFA sulfate Family 90 90 HFA 90 Practic mcg/actuati mcg/actuati mcg/actuat e on aerosol on aerosol ion inhaler inhaler aerosol inhaler allopurinol allopurinol No allopurino [facility] 100 mg 100 mg l 100 mg Family tablet TAKE tablet TAKE tablet Practic 1 TABLET BY 1 TABLET BY TAKE 1 e MOUTH EVERY MOUTH EVERY TABLET BY DAY DAY MOUTH EVERY DAY alprazolam alprazolam No alprazolam [facility] 1 mg tablet 1 mg tablet 1 mg F amily TAKE 1 TAKE 1 tablet Practic TABLET BY TABLET BY TAKE 1 e MOUTH 3 MOUTH 3 TABLET BY TIMES A DAY TIMES A DAY MOUTH 3 NEEDED NEEDED TIMES A FOR OTHER ( FOR OTHER ( DAY ANXIETY) ANXIETY) NEEDED FOR OTHER ( ANXIETY) amoxicillin amoxicillin No amoxicilli [facility] [phone] Family mg-potassiu mg-potassiu mg-potassi Practic m m um e clavulanate clavulanate clavulanat 125 mg 125 mg e 125 mg tablet tablet tablet azithromyci azithromyci azithromyc [facility] n 250 mg n 250 mg in 250 mg Fa lana tablet tablet tablet Practic e benzonatate benzonatate No benzonatat [facility] 200 mg 200 mg e 200 mg Family capsule capsule capsule Practi c e Breo Breo No Breo [facility] Ellipta 200 Ellipta 200 Ellipta Family mcg-25 mcg-25 200 mcg-25 Pract ic mcg/dose mcg/dose mcg/dose e powder for powder for powder for inhalation inhalation inhalation citalopram citalopram citalopram [facility] 20 mg 20 mg 20 mg Family tablet tablet tablet Practic e clobetasol clobetasol clobetasol [facility] 0.05 % 0.05 % 0.05 % Family topical topical topical Practi c ointment ointment ointment e cyclobenzap cyclobenzap No cyclobenza [facility] rine 7.5 mg rine 7.5 mg [...] route. fluconazole fluconazole No fluconazol [facility] 150 mg 150 mg e 150 mg Family tablet tablet tablet Practic e furosemide furosemide No furosemide [facility] 20 mg 20 mg 20 mg Family tablet 20 tablet 20 tablet 20 Practic mg by oral mg by oral mg by oral e route. route. route. gabapentin gabapentin No gabapentin [facility] 300 mg 300 mg 300 mg [...] route. hydrocodone hydrocodone No hydrocodon [facility] 10 10 e 10 Family mg-acetamin [...] 7-10). levothyroxi levothyroxi No levothyrox [facility] ne 100 mcg ne 100 mcg ine 100 Family tablet TAKE tablet TAKE mcg tablet Practic 2 TABLETS 2 TABLETS TAKE 2 e BY MOUTH BY MOUTH TABLETS BY EVERY DAY EVERY DAY MOUTH BEFORE A BEFORE A EVERY DAY MEAL MEAL BEFORE A MEAL levothyroxi levothyroxi No levothyrox [facility] ne 175 mcg ne 175 mcg ine 175 Family tablet TAKE tablet TAKE mcg tablet Practic 1 TABLET BY 1 TABLET BY TAKE 1 e MOUTH EVERY MOUTH EVERY TABLET BY DAY IN THE DAY IN THE MOUTH MORNING MORNING EVERY DAY IN THE MORNING levothyroxi levothyroxi No 1 Q1D levothy[address] [facility] ne 75 mcg ne 75 mcg ine 75 mcg Family tablet Take tablet Take tablet Practic 1 tablet 1 tablet Take 1 e every day every day tablet by oral by oral every day route. route. by oral route. metformin metformin No metformin [facility] 500 mg 500 mg 500 mg Family tablet tablet tablet Practic e methylpredn methylpredn No methylpred [facility] isolone 4 isolone 4 nisolone 4 Family mg tablets mg tablets mg tablets Practic in a dose in a dose in a dose e pack pack pack metoprolol metoprolol No metoprolol [facility] succinate succinate succinate Family ER 50 mg ER 50 mg ER 50 mg Pra ctic tablet,exte tablet,exte tablet,ext e nded nded ended release 24 release 24 release 24 hr 50 mg hr 50 mg hr 50 mg by oral by oral by oral route. route. route. minocycline minocycline No minocyclin [facility] 100 mg 100 mg e 100 mg Family capsule capsule capsule Practi c TAKE 1 TAKE 1 TAKE 1 e CAPSULE BY CAPSULE BY CAPSULE BY MOUTH TWICE MOUTH TWICE MOUTH A DAY A DAY TWICE A DAY potassium potassium No potassium [facility] citrate ER citrate ER citrate ER Family 10 mEq 10 mEq 10 mEq Practic (1,080 mg) (1,080 mg) (1,080 mg) e tablet,exte tablet,exte tablet,ext nded nded ended release release release prednisone prednisone No prednisone [facility] 10 mg 10 mg 10 mg Family tablet tablet tablet Practic e pregabalin pregabalin No pregabalin [facility] 150 mg 150 mg 150 mg Family capsule capsule capsule Practi c e ProAir ProAir No ProAir [facility] RespiClick RespiClick RespiClick Family 90 90 90 Practic mcg/actuati mcg/actuati mcg/actuat e on breath on breath ion breath activated activated activated sulfamethox sulfamethox No sulfametho [facility] azole 800 azole 800 xazole 800 Family mg-trimetho mg-trimetho mg-trimeth Practic prim 160 mg prim 160 mg oprim 160 e tablet TAKE tablet TAKE mg tablet 1 TABLET BY 1 TABLET BY TAKE 1 MOUTH EVERY MOUTH EVERY TABLET BY DAY DAY MOUTH EVERY DAY tizanidine tizanidine No 1capsul Q6H tizanidine [facility] 4 mg 4 mg e(s) 4 mg Family capsule capsule capsule Practi c Take 1 Take 1 Take 1 e capsule capsule capsule every 6 every 6 every 6 hours by hours by hours by oral route. oral route. oral route. triamcinolo triamcinolo No triamcinol [facility] ne ne one Family acetonide acetonide acetonide Practic 0.147 0.147 0.147 e mg/gram mg/gram mg/gram topical topical topical aerosol aerosol aerosol valsartan valsartan No 1 Q1D [address] [facility] 320 320 320 Family mg-hydrochl mg-hydrochl mg-hydroch Practic orothiazide orothiazide lorothiazi e 12.5 mg 12.5 mg de 12.5 mg tablet Take tablet Take tablet 1 tablet 1 tablet Take 1 every day every day tablet by oral by oral every day route. route. by oral route. valsartan valsartan No moertkiki [facility] 320 320 320 Family mg-hydrochl mg-hydrochl mg-hydroch Practic orothiazide orothiazide lorothiazi e 25 mg 25 mg de 25 mg tablet TAKE tablet TAKE tablet 1 TABLET BY 1 TABLET BY TAKE 1 MOUTH EVERY MOUTH EVERY TABLET BY DAY DAY MOUTH EVERY DAY Wixannabella Onealxela No Ericxannabella [facility] Inhub 250 Inhub 250 Inhub 250 [...] Practice Body Weight 2020-10-09 00:00:00 259 [lb_av] [facility] Height 2020-06-12 00:00:00 68 [in_i] [facility] Height 2020-05-24 00:00:00 68 [in_i] [facility] Height 2020-03-08 00:00:00 68 [in_i] [facility] BMI (Body Mass Index) 2020-03-08 00:00:00 35 kg/m2 [facility] Body Weight 2020-03-08 00:00:00 230 [lb_av] [facility] Systolic blood 2020-06-26 16:12:00 132 mm[Hg] [facility] Diastolic blood 2020-06-26 16:12:00 68 mm[Hg] [facility] Heart rate 2020-06-26 16:12:00 103 /min [facility] Body temperature 2020-06-26 16:12:00 36.39 Cassy [facility] Respiratory rate 2020-06-26 16:12:00 18 /min [facility] Oxygen saturation in 2020-06-26 16:12:00 96 /min [facility] Arterial blood by Medical Ce nter Pulse oximetry Body height 2020-06-17 16:00:00 175.3 cm [facility] Body weight 2020-06-17 16:00:00 139.708 kg [facility] BMI 2020-06-17 16:00:00 45.48 kg/m2 [facility] Procedures Procedure Date / Time Performing Clinician Source Performed POCT-GLUCOSE METER 2020-06-26 16:17:00 Luke Claire [facility] POCT-GLUCOSE METER 2020-06-26 12:37:00 Luke Claire [facility] POCT-GLUCOSE METER 2020-06-26 08:33:00 Luke Claire [facility] CBC W/PLT COUNT & AUTO 2020-06-26 04:16:00 Luke Claire [facility] BASIC METABOLIC PANEL (7) 2020-06-26 04:16:00 Luke Claire Ashley [facility] POCT-GLUCOSE METER 2020-06-25 20:45:00 Luke Claire [facility] POCT-GLUCOSE METER 2020-06-25 16:22:00 Luke Claire [facility] POCT-GLUCOSE METER 2020-06-25 12:02:00 [facility] 2020-06-25 07:53:00 Dakotah [facility] POCT-GLUCOSE METER 2020-06-25 05:55:00 Dakotah [facility] CBC W/PLT COUNT & AUTO 2020-06-25 03:33:00 Dakotah [facility] POCT-GLUCOSE METER 2020-06-25 00:28:00 Dakotah [facility] POCT-GLUCOSE METER 2020-06-24 17:55:00 Dakotah [facility] POCT-GLUCOSE METER 2020-06-24 11:54:00 Dakotah [facility] POCT-GLUCOSE METER 2020-06-24 08:36:00 Dakotah [facility] CBC W/PLT COUNT & AUTO 2020-06-24 04:38:00 Dakotah [facility] POCT-GLUCOSE METER 2020-06-23 21:15:00 Dakotah [facility] POCT-GLUCOSE METER 2020-06-23 11:07:00 Dakotah [facility] [place] FLUORO NON-SPECIFIC UP 2020-06-23 08:12:00 Luis Angel Nation [facility] - TO 1 [facility] CLOSED REDUCTION,SHOULDER 2020-06-23 07:34:00 Luis Angel Nation [facility] POCT-GLUCOSE METER 2020-06-23 05:28:00 Dakotah [facility] POCT-GLUCOSE METER 2020-06-22 22:16:00 [facility] 12-LEAD 2020-06-22 21:21:16 Ana Leonardo [facility] HEMOGLOBIN AND HEMATOCRIT 2020-06-22 17:41:00 [facility] PO[facility]SE [facility] 2020-06-22 11:30:00 [facility] POCT-GLUCOSE METER 2020-06-22 06:46:00 [facility] CBC W/PLT COUNT & AUTO 2020-06-22 04:41:00 [facility] BASIC METABOLIC PANEL (7) 2020-06-22 04:41:00 [facility] LACTIC ACID, VENOUS 2020-06-22 04:41:00 [facility] POCT-GLUCOSE METER 2020-06-22 00:01:00 [facility] TRANSFUSION SERVICE 2020-06-21 18:01:23 Shanon Hawthorne [facility] REPORT - SCAN Scanning [facility] POCT-GLUCOSE METER 2020-06-21 15:24:00 [facility] POCT-GLUCOSE METER 2020-06-21 12:28:00 [facility] CBC (HEMOGRAM ONLY) 2020-06-21 10:43:00 Alen Morejon [facility] POCT-GLUCOSE METER 2020-06-21 09:45:00 [facility] [place] FLUORO NON-SPECIFIC UP 2020-06-21 08:50:00 Luis Angel Nation [facility] - [facility] ORIF,FEMUR 2020-06-21 07:17:00 Luis Angel Nation [facility] PROCEDURE W/ C-ARM 2020-06-21 07:17:00 Luis Angel Nation [facility] PREPARE LEUKO-REDUCED RBC 2020-06-20 23:54:00 Scot Shaver [facility] POCT-GLUCOSE METER 2020-06-20 23:34:00 Herve Zee [facility] POCT-GLUCOSE METER 2020-06-20 18:39:00 Herve Zee [facility] TRANSFUSION SERVICE 2020-06-20 18:21:03 Provider, Shanon [facility] - REPORT - SCAN Scanning [facility] XR PELVIS 1 OR 2 VIEWS 2020-06-20 18:13:00 Luis Angel Nation [facility] XR ELBOW LEFT (MIN 3 2020-06-20 17:26:00 Herve Zee [facility]) [facility] XR SHOULDER 1 VIEW LEFT 2020-06-20 17:26:00 Herve Zee [facility] NM MYOCARD IMAGING MULTI 2020-06-20 15:41:00 Elizabeth Butler CH I [facility] - PHARM PLANAR [facility] POCT-GLUCOSE METER 2020-06-20 12:20:00 Herve Zee [facility] POCT-GLUCOSE METER 2020-06-20 06:07:00 Herve Zee [facility] COMPREHENSIVE METABOLIC 2020-06-20 04:32:[address] [facility] VITAMIN B12 AND FOLATE 2020-06-20 04:32:00 Ana Leonardo [facility] CALCIUM, IONIZED 2020-06-20 04:32:00 Herve Zee [facility] PHOSPHORUS 2020-06-20 04:32:00 Herve Zee [facility] MAGNESIUM 2020-06-20 04:32:00 Herve Zee [facility] CBC W/PLT COUNT & AUTO 2020-06-20 04:32:00 Herve Zee CH, I [facility] POCT-GLUCOSE METER 2020-06-19 21:05:00 Herve Zee [facility] TRANSFUSE LEUKO-REDUCED 2020-06-19 20:26:24 Scot Shaver [facility] - RED BLOOD CELLS [facility] TRANSFUSION SERVICE 2020-06-19 18:00:37 Provider, Shanon [facility] REPORT - SCAN Scanning [facility] POCT-GLUCOSE METER 2020-06-19 13:05:00 Herve Zee [facility] TREADMILL 2020-06-19 09:45:13 Unknown, Hl7 Doctor [facility] - T[facility]ERANCE(NON-NUCLEAR Medical Ce nter TREADMILL) ECG 12-LEAD 2020-06-19 09:41:18 Unknown, 7 [facility] ECG 12-LEAD 2020-06-19 09:24:29 Unknown, 7 [facility] POCT-GLUCOSE METER 2020-06-19 05:47:00 [facility] ([facility] & 2020-06-19 05:13:00 Alyce Donnelly [facility] - REF LABS) [facility] CALCIUM, IONIZED 2020-06-19 03:54:00 [facility] W/[facility]T COUNT & AUTO 2020-06-19 03:54:00 Herve Zee [facility] I [facility] COMPREHENSIVE METABOLIC 2020-06-19 03:53:00 Herve Zee HI [facility] PHOSPHORUS 2020-06-19 03:53:[facility] 2020-06-19 03:53:00 [facility] AB[facility]H, MANUAL 2020-06-18 22:08:00 Yas Poole [facility] POCT-GLUCOSE METER 2020-06-18 21:34:00 [facility] TYPE AND SCREEN, 2020-06-18 17:02:00 Scot [facility]aver [facility] - AUTOMATED [facility] POCT-GLUCOSE METER 2020-06-18 15:58:00 [facility] PO[facility]SE METER 2020-06-18 11:07:00 Saadia [facility] TROPONIN I 2020-06-18 09:31:00 Saadia [facility] POCT-GLUCOSE METER 2020-06-18 07:58:00 [facility] TROPONIN I 2020-06-18 05:44:00 [facility], [facility]ON[facility]ED 2020-06-18 05:44:00 Herve Zee [facility] PHOSPHORUS 2020-06-18 05:44:00 [facility] CBC W/PLT COUNT & AUTO 2020-06-18 05:44:00 Herve Zee [facility] MAGNESIUM 2020-06-18 05:44:00 Saadia [facility] HEMOGLOBIN A1C 2020-06-18 05:44:00 Saadia [facility] TSH/FREE T4 IF INDICATED 2020-06-18 05:44:00 [facility] COMPREHENSIVE METABOLIC 2020-06-18 05:44:[address] [facility] B-TYPE NATRIURETIC FACTOR 2020-06-18 05:44:[address] [facility] (BNP) [facility] T4, FREE 2020-06-18 05:44:00 Saadia [facility] 2D ECHO W/ DOPPLER 2020-06-17 22:02:40 [facility] POCT-GLUCOSE METER 2020-06-17 21:40:00 [facility] CBC W/PLT COUNT & AUTO 2020-06-17 21:07:00 Herve Zee [facility] COMPREHENSIVE METABOLIC 2020-06-17 21:07:[address] [facility] ECG 12-LEAD 2020-06-17 20:01:42 Saadia [facility] Leg Surgery Procedure [facility] Practice Percutaneous Extraction [facility] Family of Kidney Stone with Practice Fragmentation Procedure Plan of Care Planned Activity Planned Date Details Comments Source Future Scheduled Test 2028-10-21 DTAP/TDAP/TD VACCINES [facility] - 00:00:00 (2 - Td) [code = Medical [facility] ter DTAP/TDAP/TD VACCINES (2 - Td)] Future Scheduled Test 2021-05-[address] IN[address] VACC[address] [facility] ([facility] Ended) [code Medical Center = INFLUENZA VACCINE (Season Ended)] Future Scheduled Test 2021-04-15 IN[place]ZA VACCINE [place] [facility] 00:00:00 [code = INFLUENZA VACCINE] Future Scheduled Test 2020-12-[address] [facility] - 00:00:00 measurement [facility] Center (procedure) [code = 41616414] Future Scheduled Test 2020-09-[address] [facility] - 00:00:00 WELLNESS (YEAR 2 or Medical Center FIRST YEAR if no IPPE) [code = MEDICARE ANNUAL WELLNESS (YEAR 2 or FIRST YEAR if no IPPE)] Future Scheduled Test 2020-09-[address] [facility] - 00:00:00 (12+) [code = [facility] DEPRESSION SCREENING (12+)] Future Scheduled Test 2006 BREAST CANCER [place] 00:00:00 SCREENING [code = BREAST CANCER SCREENING] Future Scheduled Test 2006 COLONOSCOPY SCREENING [place] [facility] 00:00:00 [code = COLONOSCOPY SCREENING] Future Scheduled Test 2006 [facility] (#1) [code = SHINGLES VACCINES (#1)] Future Scheduled Test 2006 SHINGLES VACCINES ([address] [facility] - 00:00:00 of 2) [code = [facility] SHINGLES VACCINES (1 of 2)] Future Scheduled Test [address] [facility] - 00:00:00 (procedure) [code = [facility] Center 66697931] Future Scheduled Test 1977 Screening for [place] 00:00:00 malignant neoplasm of cervix (procedure) [code = 315923634] Future Scheduled Test 1977 [facility] ne[facility] of [facility] Center cervix (procedure) [code = 711305002] Future Scheduled Test 1974 HEPATITIS C SCREENING [facility] - 00:00:00 [code = HEPATITIS C Medical Center SCREENING] Future Scheduled Test 1968 COVID-19 VACCINE (1) [place] 00:00:00 [code = COVID-19 VACCINE (1)] Future Scheduled Test 1968 COVID-19 VACCINE (1) [facility] - 00:[facility]:00 [code = COVID-[address] VACCINE (1)] Future Scheduled Test 1966 DIABETIC EYE EXAM [facility] [code = DIABETIC EYE Medical Center EXAM] Future Scheduled Test 1966 Diabetic foot [facility] examination [facility] Center (regime/therapy) [code = 701408038] Future Scheduled Test 1966 Urine screening for [facility] - 00:[facility]:00 protein (procedure) Medical Center [code = 844545245] Future Scheduled Test [address] [facility] - 00:00:00 0-64 YRS (1 of 1 - Medical C enter PPSV23) [code = PNEUMOCOCCAL VACCINE 0-64 YRS (1 of 1 - PPSV23)] Future Scheduled Test 1956 [facility] Center breast (procedure) [code = 824077625] Future Scheduled Test 1956 [facility] Center colon (procedure) [code = 870711071] Future Appointment 2021-04-08 Prudence Ilia-Jc, [facility] 00:00:00 [address]; [address], [phone] Encounters Start End Encounter Admission Attending Care Care Encounter Source Date/Time Date/Time Type Type Clinicians Facility Department ID 2021-03-22 2021-03-22 Telephone SOWMYA Fong [id number] 00:00:00 00:00:00 [facility] [id number] [place] 4.2.7.2.686 Fabi [id number] [address] [address] 2021-03-19 2021-03-19 Refill SOWMYA Fong [id number] 00:00:00 00:00:00 [facility] [id number] [place] 4.2.7.2.686 Professio [id number] [place] [address] [address] 2021-03-16 2021-03-16 Refill Ajit [facility] [id number] 00:00:00 00:00:00 [facility] [id number] [place] 4.2.7.2.686 Professio [id number] [place] [address] [address] 2021-03-16 2021-03-16 [facility] [id number] 00:00:00 00:00:00 [facility] [id number] [place] 4.2.7.2.686 Professio [phone] [place] [address] [address] 2021-03-14 2021-03-14 [facility] [id number] 00:00:00 00:00:[id number] 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 2020-05-24 2020-05-24 [facility] [place] - [id number] V illage 00:00:00 00:00:[address] [facility] Gallo erika o, CASE MAKING MACHINE OPERATOR: Medical - Practi c [address]V@H_ e [facility], [facility] [address], [place] [address] , Ph. 2020-03-08 2020-03-08 [facility] [place] - [id number] V illage 00:00:00 00:00:00 [facility] Gallo james o, CASE MAKING MACHINE OPERATOR: Medical - Practi c [address]H_ e [facility], [place] [address], [place] [address] , Ph. Results Test Description Test Time Test Comments Results Result Comments Source POC-Glucose meter 2020-06-26 16:29:00 Test Item Value Reference Range Interpretation Comme [facility] POC-Glucose Meter (test code = 119 mg/dL 70-110 H : [facility] [address], [address]: Division Director/Techni alton ID = [id number] for Yamila Loyola Lab Interpretation (test code = Abnormal 43543-4) [facility] [id number] 16:29:00 Test Item Value Reference Range Interpretation Comments POC-GLUCOSE METER 119 mg/dL 70-110 H : [facility] ([facility]) (test code = [facility] R [facility], 1538) [address]: Division Director/Techni alton ID = [id number] for Me ndez, Marleen POCT-GLUCOSE [id number] 12:48:00 Test Item Value Reference Range Interpretation Comments POC-GLUCOSE METER 188 mg/dL 70-110 H : TESTED A T [facility] 67[address] (BEAKER) (test code = [facility], 1538) [address]: Division Director/Techni alton ID = [id number] for Me ndez, Marleen POCT-GLUCOSE [id number] 08:45:00 Test Item Value Reference Range Interpretation Comments POC-GLUCOSE METER 154 mg/dL 70-110 H : TESTED A T [facility] 6720 (BEAKER) (test code = RON[place] Mun[place], 1538) [address]: Division Director/Techni alton ID = [id number] for Marleen Smith Basic Metabolic [id number] 05:37:00 Test Item Value Reference Range Interpretation Comments Sodium (test code = 140 meq/L 370-155 1669-2) Potassium (test code = 4.3 meq/L 3.5-5.1 2823-3) Chloride (test code = 101 meq/L 98-107 2075-0) CO2 (test code = 33 meq/L 22-29 H 2028-9) BUN (test code = 16 mg/dL 7-21 3094-0) Creatinine (test code 0.73 mg/dL 0.57-1.25 = 2160-0) Glucose (test code = 113 mg/dL 70-105 H 2345-7) Calcium (test code = 8.4 mg/dL 8.4-10.2 33085-8) EGFR (test code = 81 mL/min/1.73 [place] [address]-3) NOT ACCURATE CREATININE CLEARANCE IN PREDICTING GLOMERULAR FILTRATION RATE . ESTIMATED GFR I S NOT APPLICABLE FOR DIALYSIS PATIENTS. TEX (test code = TEX) Division Director ID - [id number] M Lab Interpretation Abnormal (test code = 37894-6) [facility] METABOLIC [id number] 05:37:00 Test Item Value Reference Range Interpretation [...] S NOT APPLICABLE FOR DIALYSIS PATIEN TS. Division Director ID - [id number] MCBC with platelet count + automated [id number] 05:22:00 Test Item Value Reference Range Interpretation Comments WBC (test code = 6690-2) 9.8 See_Comment [A utomated message] The system [employer] generated this result transmitted ref erence range: 3.5 - 10 .5 K/L. The refe rence range was not u sed to interpret this result as normal/abnor mal. RBC (test code = 789-8) 2.66 See_Comment L [Au tomated message] The system [employer] generated this result transmitted ref erence range: 3.93 - 5 .22 M/L. The refe rence range was not u sed to interpret this result as normal/abnor mal. MCHC (test code = 786-4) 29.9 See_Comment L [A utomated message] The system [employer] generated this result transmitted ref erence range: [...] See_Comment [Aut omated message] 777-3) The system [employer] generated this result transmitted ref erence range: 150 - 45 0 K/CU MM. The referen ce range was not u sed to interpret this result as normal/abnor mal. MPV (test code = 9.4 fL 9.4-12.3 09779-4) nRBC (test code = 413) 1 See_Comment H [Aut omated message] The system [employer] generated this result transmitted ref erence range: [...] H [Aut omated message] 670) The system [employer] generated this result transmitted ref erence range: 1.56 - 6 .13 K/L. The refe rence range was not u sed to interpret this result as normal/abnor mal. # Lymphs (test code = 1.25 See_Comment [Auto mated message] 414) The system [employer] generated this result transmitted ref erence range: 1.18 - 3 .74 K/L. The refe rence range was not u sed to interpret this result as normal/abnor mal. # Monos (test code = 0.71 See_Comment H [Autom ated message] 415) The system [employer] generated this result transmitted ref erence range: 0.24 - 0 .36 K/L. The refe rence range was not u sed to interpret this result as normal/abnor mal. # Eos (test code = 416) 0.47 See_Comment H [Au tomated message] The system [employer] generated this result transmitted ref erence range: 0.04 - 0 .36 K/L. The refe rence range was not u sed to interpret this result as normal/abnor mal. # Baso (test code = 417) 0.05 See_Comment [A utomated message] The system [employer] generated this result transmitted ref erence range: 0.01 - 0 .08 K/L. The refe rence range was not u sed to interpret this result as normal/abnor mal. Immature 4 % 0-1 H Granulocytes-Relative (test code = 2801) Lab Interpretation (test Abnormal code = 11209-4) [facility] W/PLT COUNT & AUTO [id number] 05:22:00 Test Item Value Reference Range Interpretation [...] PERCENT (BEAKER) (test code = 2801) POCT-GLUCOSE [id number] 20:57:00 Test Item Value Reference Range Interpretation Comments POC-GLUCOSE METER 136 mg/dL 70-110 H : TESTED A T [facility] 6720 (BEAKER) (test code = [facility], 1538) [address]: Division Director/Techni alton ID = [id number] for AN NORTIFFANIE POCT-GLUCOSE [id number] 16:49:00 Test Item Value Reference Range Interpretation Comments POC-GLUCOSE METER 104 mg/dL 70-110 : TESTED A T [facility] 6720 (BEAKER) (test code = [facility], 1538) [address]: Division Director/Techni alton ID = [id number] for RA MOS, ALEKSEY POCT-GLUCOSE [id number] 12:14:00 Test Item Value Reference Range Interpretation Comments POC-GLUCOSE METER 142 mg/dL 70-110 H : TESTED A T [facility] 6720 (BEAKER) (test code = [facility], [facility]8) [address]: Division Director/Techni alton ID = [id number] for RA MOS, ALEKSEY POCT-GLUCOSE [id number] 08:04:00 Test Item Value Reference Range Interpretation Comments POC-GLUCOSE METER 152 mg/dL 70-110 H : TESTED A T [facility] 6720 (BEAKER) (test code = [facility], 1538) [address]: Division Director/Techni alton ID = [id number] for RA MOS, ALEKSEY POCT-GLUCOSE [id number] 06:06:00 Test Item Value Reference Range Interpretation Comments POC-GLUCOSE METER 115 mg/dL 70-110 H : TESTED A T [facility] 6720 (BEAKER) (test code = [facility], 1538) [address]: Division Director/Techni alton ID = [id number] for SA RICKEY DOMINIQUE CBC W/PLT COUNT & AUTO [id number] 04:19:00 Test Item Value Reference Range Interpretation Comments WHITE BLOOD CELL COUNT (AKER) 10.7 K/ L 3.5-10.5 H (test code = 775) RED BLOOD CELL COUNT (AKER) 2.57 M/ L 3.93-5.22 L (test code [...] PERCENT (BEAKER) (test code = 2801) POCT-GLUCOSE [id number] 00:40:00 Test Item Value Reference Range Interpretation Comments POC-GLUCOSE METER 120 mg/dL 70-110 H : Notified RN/MD: ([facility]) (test code = TESTED AT [facility] 67[address] 153) [facility], [address]: Division Director/Techni alton ID = [id number] for RICKEY CHAUDHRY POCT-GLUCOSE [id number] 18:10:00 Test Item Value Reference Range Interpretation Comments POC-GLUCOSE METER 166 mg/dL 70-110 H : TESTED A T [facility] 6720 ([facility]) (test code = [facility], 153) [address]: Division Director/Techni alton ID = [id number] for RA MOS, ALEKSEY POCT-GLUCOSE [id number] 12:06:00 Test Item Value Reference Range Interpretation Comments POC-GLUCOSE METER 157 mg/dL 70-110 H : [facility] ([facility] (test code = [facility], 153) [address]: Division Director/Techni alton ID = [id number] for RA MOS, ALEKSEY POCT-GLUCOSE [id number] 08:51:00 Test Item Value Reference Range Interpretation Comments POC-GLUCOSE METER 168 mg/dL 70-110 H : [facility] ([facility]) (test code = [facility], 153) [address]: Division Director/Techni alton ID = [id number] for RA MOS, ALEKSEY CBC W/PLT COUNT & AUTO [id number] 05:10:00 Test Item Value Reference Range Interpretation [...] PERCENT (BEAKER) (test code = 2801) POCT-GLUCOSE [id number] 01:33:00 Test Item Value Reference Range Interpretation Comments POC-GLUCOSE METER 107 mg/dL 70-110 : TESTED A T [facility] 6720 (BEAKER) (test code = [facility], 1538) [address]: Division Director/Techni alton ID = [id number] for KIKI FARIA TIFFANIE POCT-GLUCOSE [id number] 11:19:00 Test Item Value Reference Range Interpretation Comments POC-GLUCOSE METER 155 mg/dL 70-110 H : TESTED A T [facility] 6720 (BEAKER) (test code = [facility], 1538) [address]: Division Director/Techni alton ID = [id number] for [place] FL, FLUORO, NON-SPECIFIC, UP TO 1 [id number] 08:27:37Reason for exam:- >Dislocated left shoulder (OR 18)Fluoroscopic unit utilized for a procedure performed in the OR. No interpretation was requested. Refer to the operative report for findings. Refer to PACS for patient radiation dose information.FL fluoro non-specific up to 1 [id number] 08:12:00Interface, External Ris In - 06/23/2020 1:22 PM CDTFluoroscopic unit utilized for a procedure performed in the OR. No interpretation was requested. Refer to the operative report for findings. Referto PACS for patient radiation dose information.[facility] CenterECG 12 [id number] 06:36:51Interface, External Ris In - 06/23/2020 6:36 AM CDTVentricular Rate 99 BPMAtrial Rate 99 BPMP-R Interval 148 msQRS Duration 86 msQ-T Interval 350 msQTC Calculation(Bazett) 449 msP [place] 39 degreesR [place] -2 degreesT [place] 112 degreesNormal sinus rhythmMinimal voltage criteria for LVH, may be normal variantAbnormal QRS-T angle, consider primary T wave abnormalityAbnormal ECGWhen compared with ECG of 17-JUN-2020 20:01,No significant change was foundConfirmed by MD BINH, SUPA Fields ([id number]) on 06/23/20206:36:[address] [facility]PO[facility] [id number] 05:40:00 Test Item Value Reference Range Interpretation Comments POC-GLUCOSE METER 145 mg/dL 70-110 H : TESTED A T [facility] 6720 ([employer]) (test code = [employer] [facility], 1538) [address]: Division Director/Techni alton ID = [id number] for AN NORTIFFANIE POCT-GLUCOSE [id number] 23:05:00 Test Item Value Reference Range Interpretation Comments POC-GLUCOSE METER 128 mg/dL 70-110 H : TESTED A T [facility] 6720 (BEAKER) (test code = [facility] [employer] [facility], 1538) [address]: Division Director/Techni alton ID = [id number] for AN NOR, TIFFANIE Hemoglobin and [id number] 17:48:00 Test Item Value Reference Range Interpretation [...] = 4544-3) TEX (test code = TEX) Division Director ID - [id number] Lab Interpretation Abnormal (test code = 39277-5) [facility] CenterHEMOGLOBIN AND [id number] 17:48:00 Test Item Value Reference Range Interpretation Comments HEMOGLOBIN (BEAKER) (test code = 7.7 GM/DL 11.2-15.7 L 410) HEMATOCRIT (BEAKER) (test code = 26.4 % 34.1-44.9 L 411) Division Director ID - [id number]-GLUCOSE [id number] 11:44:00 Test Item Value Reference Range Interpretation Comments POC-GLUCOSE METER 116 mg/dL 70-110 H : TESTED A T [facility] 6720 (BEAKER) (test code = RONNY Munoz [facility], 1538) [address]: Division Director/Techni alton ID = [id number] for Ashwin Platt BASIC METABOLIC [id number] 07:08:00 Test Item Value Reference Range Interpretation [...] S NOT APPLICABLE FOR DIALYSIS PATIEN TS. Division Director ID - KASIA MPOCT-GLUCOSE [id number] 07:02:00 Test Item Value Reference Range Interpretation Comments POC-GLUCOSE METER 112 mg/dL 70-110 H : TESTED A T [facility] 6720 (BEAKER) (test code = R[place], 1538) [address]: Division Director/Techni alton ID = [id number] for ELIAN PLATT CBC W/PLT COUNT & AUTO [id number] 06:24:00 Test Item Value Reference Range Interpretation Comments WHITE BLOOD CELL COUNT 11.7 K/ L 3.5-10.5 H (BEAKER) (test code = 775) RED BLOOD CELL COUNT 2.51 M/ L 3.93-5.22 L (BEAKER) (test code = 761) HEMOGLOBIN (BEAKER) 7.7 GM/DL 11.2-15.7 L Patient had (test code = 410) surgery e day before [id number] HEMATOCRIT (BEAKER) 26.5 % 34.1-44.9 L (test [...] (BEAKER) (test code = 2801) Lactic acid, [id number] 06:09:00 Test Item Value Reference Range Interpretation Comments Lactate, Venous (test code 0.95 mmol/L 0.5-2.2 = 2872) TEX (test code = TEX) Division Director ID Jeannette PEDROZA M Lab Interpretation (test Normal code = 57675-7) [facility] CenterLACTIC ACID, [id number] 06:09:00 Test Item Value Reference Range Interpretation Comments LACTATE BLOOD VENOUS (2) (BEAKER) 0.95 mmol/L 0.50-2.20 (test code = 2872) Division Director SWEETIE PEDROZA MPOCT-GLUCOSE [id number] 00:13:00 Test Item Value Reference Range Interpretation Comments POC-GLUCOSE METER 114 mg/dL 70-110 H : TESTED A T [facility] 6720 (BEAKER) (test code = [facility], 1538) [address]: Division Director/Techni alton ID = [id number] for [place] ELIAN MIKE POCT-GLUCOSE [id number] 15:36:00 Test Item Value Reference Range Interpretation Comments POC-GLUCOSE METER 153 mg/dL 70-110 H : TESTED A T [facility] 6720 (BEAKER) (test code = [facility], 1538) [address]: Division Director/Techni alton ID = [id number] for [place] Treadmill tolerance(Non-Nuclear Treadmill)2020-06-21 14:44:14Interface, [...] by Real Magallon ([id number]) on 06/21/2020 2:44:06 [facility]OW, 3 VIEWS, LEFT 2020-06-21 13:36:00Reason for [...] no acute fracture, or dislocation. There is kndk-id-aewtdljh osteoarthritis, as well as mild enthesopathy at [...] 13:36:41 Reading Location: [facility] Radiology Reading Room Electr onically signed by: JENNIFER RUBIO M.D. on 06/21/2020 01:36 PMRAD, SHOULDER, 1 VIEW, [id number] 13:36:00Reason for exam:->left shouler painFINAL REPORT Radiograph [...] no acute fracture, or dislocation. There is haln-gr-yfkkhjjp osteoarthritis, as well as mild enthesopathy at [...] 13:36:41 Reading Location: [facility] Radiology Reading Room RAD, PELVIS, 1 OR 2 [id number] 13:36:00Single viewReason for exam:- >femur fxShould this [...] no acute fracture, or dislocation. There is vypg-nn-vozvyjmt osteoarthritis, as well as mild enthesopathy at [...] 13:36:41 Reading Location: [facility] Radiology Reading Room XR pelvis 1 or 2 [id number] 13:36:00Interface, External Ris In - 06/21/2020 1:38 [...] demonstrates no acute fracture, or dislocation. There dyyher-dl-nlarwlax osteoarthritis, as well as mild enthesopathy at [...] [place] Verified Date/Time: 06/21/2020 13:36:41 Reading Location: [facility] Radiology Reading Room [facility] AreaXR elbow 3 views min [id number] 13:36:00Interface, External Ris In - 06/21/2020 1:38 [...] no acute fracture, or dislocation. There is zgeu-fo-atrqujof osteoarthritis, as well as mild enthesopathy at [...] 13:36:41 Reading Location: [facility] Radiology Reading Room [facility] Area[facility] shoulder 1 view left 2020-06-21 13:36:00Interface, External [...] demonstrates no acute fracture, or dislocation. There ucwgol-jo-fympqolv osteoarthritis, as well as mild enthesopathy at [...] 13:36:41 Reading Location: [facility] Radiology Reading Room [facility] AreaPOCT-GLUCOSE [id number] 12:40:00 Test Item Value Reference Range Interpretation Comments POC-GLUCOSE METER 189 mg/dL 70-110 H : TESTED A T [facility] 6720 (BEAKER) (test code = [place], 1538) [address]: Division Director/Techni alton ID = [id number] for PRINCESS ED CBC (Hemogram only)2020-06-21 11:17:00 Test Item Value Reference Range Interpretation Comments WBC (test code = 6690-2) 27.9 See_Comment H [A utomated message] The system [employer] generated this result transmitted ref erence range: 3.5 - 10 .5 K/L. The refe rence range was not u sed to interpret this result as normal/abnor mal. RBC (test code = 789-8) 3.37 See_Comment L [Au tomated message] The system [employer] generated this result transmitted ref erence range: 3.93 - 5 .22 M/L. The refe rence range was not u sed to interpret this result as normal/abnor mal. MCHC (test code = 786-4) 30.4 See_Comment L [A utomated message] The system [employer] generated this result transmitted ref erence range: [...] See_Comment [Aut omated message] 777-3) The system [employer] generated this result transmitted ref erence range: 150 - 45 0 K/CU MM. The referen ce range was not u sed to interpret this result as normal/abnor mal. MPV (test code = 9.9 fL 9.4-12.3 38146-5) nRBC (test code = 413) 0 See_Comment [Aut omated message] The system [employer] generated this result transmitted ref erence range: 0 - 0 /1 00 WBC. The refere nce range was not u sed to interpret this result as normal/abnor mal. Lab Interpretation (test Abnormal code = 32378-0) [facility] (HEMOGRAM ONLY)2020-06-21 11:17:00 Test Item Value Reference [...] CELLS (BEAKER) (test code = 413) POCT-GLUCOSE [id number] 09:57:00 Test Item Value Reference Range Interpretation Comments POC-GLUCOSE METER 172 mg/dL 70-110 H : TESTED A T [facility] 6720 (BEAKER) (test code = [place], 1538) [address]: Division Director/Techni alton ID = [id number] for ANTONIO JEFE AN FL, FLUORO, NON-SPECIFIC, UP TO 1 [id number] 09:21:38Reason for exam:- >right femur fractureFluoroscopic unit utilized for a procedure performed in the OR. No interpretation was requested. Refer to the operative report for findings. Refer to PACS for patient radiation dose information.Prepare Leuko- Red [id number] 23:54:00 Test Item Value Reference Range Interpretation Comments CROSSMATCH (test code = 2264) COMPATIBLE Unit ABO (test code = B Pos 8704603) UNIT NUMBER (test code = [id number] 934-0) Status (test code = 8015130) TX_TIMEINCHART Blood Bank Product (test code RED BLOOD CELLS = 2263) PRODUCT CODE (test code = D2247O97 933-2) [facility] Center[facility] [id number] 23:46:00 Test Item Value Reference Range Interpretation Comments POC-GLUCOSE METER 136 mg/dL 70-110 H : TESTED A T [facility] 6720 (BEAKER) (test code = [facility] Tammy [facility], 1538) 58759: Division Director/Techni alton ID = [id number] for HANS JOSE POCT-GLUCOSE [id number] 18:51:00 Test Item Value Reference Range Interpretation Comments POC-GLUCOSE METER 158 mg/dL 70-110 H : TESTED A T [facility] 6720 (BEAKER) (test code = [facility], 1538) 85235: Division Director/Techni alton ID = [id number] for NEDA STAHL ALFREDO [facility], MULTI, PHARM, [id number] 17:07:00Unlisted Reason for Exam - Click Yes and Enter Reason Below->No Eval for CADFINAL REPORT PROCEDURE: MYOCARDIAL PERFUSION PLANAR IMAGING (2-Day Stress/Rest)CPT CODE: 04430 INDICATION: evaluate for presence of CAD, preoperative [...] MDReport Verified Date/Time: 06/20/2020 17:07:36 Reading Location: [address] Reading Room [place] Myocard imaging multi pharm [id number] 17:07:00Interface, External Ris In - 06/20/2020 5:09 PM CDTFINAL REPORT PROCEDURE: MY OCARDIAL PERFUSION PLANAR IMAGING (2-Day Stress/Rest)CPT CODE: 68507 INDICATION: evaluate for presence of CAD, preoperative [...] MDReport Verified Date/Time: 06/20/2020 17:07:36 Reading Location: [address] Reading Room [facility] [id number] 12:32:00 Test Item Value Reference Range Interpretation Comments POC-GLUCOSE METER 128 mg/dL 70-110 H : TESTED A T [facility] 6720 (Burt) (test code = [facility], 1538) 94786: Division Director/Techni alton ID = [id number] for PRINCESS ED POCT-GLUCOSE [id number] 06:18:00 Test Item Value Reference Range Interpretation Comments POC-GLUCOSE METER 133 mg/dL 70-110 H : TESTED A T [facility] 6720 (BEAKER) (test code = [facility], 1538) 73587: Division Director/Techni alton ID = [id number] for TIFFANIE HARDING Vitamin B12 and [id number] 06:10:00 Test Item Value Reference Range Interpretation Comments Vitamin B12 (test 467 pg/mL 213-816 code = 2132-9) Folate (test code = 16.70 ng/mL See_Comment [Automa robbie 2284-8) message] The system which generated this result transmit robbie reference range : >=7.00. The reference range was not used to interpret this result as normal/abnormal . TEX (test code = TEX) Division Director ID - EDASI Lab Interpretation Normal (test code = 78710-4) [facility] CenterVITAMIN B12 AND [id number] 06:10:00 Test Item Value Reference Range Interpretation Comments VITAMIN B12 (BEAKER) (test code = 467 pg/mL 213-816 774) FOLATE (BEAKER) (test code = 362) 16.70 ng/mL >=7.00 Division Director ID - EDASIComprehensive metabolic [id number] 06:01:00 Test Item Value Reference Range Interpretation Comments Protein, Total (test 6.9 See_Comment [Autom ated code = 2885-2) message] The system which generated this result transmit robbie reference range : 6.0 - 8.3 gm/dL . The reference range was not u sed to interpret th is result as normal/abnormal . Albumin (test code = 3.4 g/dL 3.5-5 L 39796-5) Alkaline Phosphatase 49 U/L 40-150 (test code = 6768-6) Total Bilirubin (test 1.1 mg/dL 0.2-1.2 code = 1975-2) Sodium (test code = 142 meq/L 457-739 3983-2) Potassium (test code 4.4 meq/L 3.5-5.1 = 2823-3) Chloride (test code = 101 meq/L 98-107 2075-0) CO2 (test code = 33 meq/L 22-29 H 2028-9) BUN (test code = 28 mg/dL 7-21 H 3094-0) Creatinine (test code 0.81 mg/dL 0.57-1.25 = 2160-0) Glucose (test code = 131 mg/dL 70-105 H 2345-7) Calcium (test code = 9.1 mg/dL 8.4-10.2 53785-5) AST (test code = 15 U/L 5-34 1920-8) ALT (test code = 10 U/L 6-55 1742-6) EGFR (test code = 71 mL/min/1.73 sq [place] [address]-8) NOT ACCURATE CREATININE CLEARANCE IN PREDICTING GLOMERULAR FILTRATION RATE . ESTIMATED GFR I S NOT APPLICABLE FOR DIALYSIS PATIEN TS. TEX (test code = TEX) Division Director ID - EDASI Lab Interpretation Abnormal (test code = 63165-0) [facility] CenterMagnesium2020-10-06 06:01:00 Test Item Value Reference Range Interpretation Comments Magnesium (test code = 1.7 mg/dL 1.6-2.6 01476-2) TEX (test code = TEX) Division Director ID - EDASI Lab Interpretation (test Normal code = 18110-2) [facility] CenterPhosphorus2020-10-06 06:01:00 Test Item Value Reference Range Interpretation Comments Phosphorus (test code = 2.4 mg/dL 2.3-4.7 2777-1) TEX (test code = TEX) Division Director ID - EDASI Lab Interpretation (test Normal code = 00896-8) [facility] CenterPHOSPHORUS2020-10-06 06:01:00 Test Item Value Reference Range Interpretation Comments PHOSPHORUS (BEAKER) (test code = 2.4 mg/dL 2.3-4.7 604) Division Director ID - [id number] 06:01:00 Test Item Value Reference Range Interpretation Comments MAGNESIUM (BEAKER) (test code = 1.7 mg/dL 1.6-2.6 627) Division Director ID - EDASICOMPREHENSIVE METABOLIC [id number] 06:01:00 Test Item Value Reference Range Interpretation [...] S NOT APPLICABLE FOR DIALYSIS PATIEN TS. Division Director ID - EDASICalcium, [id number] 05:15:00 Test Item Value Reference Range Interpretation Comments Calcium, Ion (test code = 1993-) 1.15 mmol/L 1.12-1.27 pH, Blood (test code = 50490-7) 7.42 [facility], [id number] 05:15:00 Test Item Value Reference Range Interpretation Comments CALCIUM IONIZED (BEAKER) (test 1.15 mmol/L 1.12-1.27 code = 698) PH, BLOOD (BEAKER) (test code = 7.42 1810) CBC W/PLT COUNT & AUTO [id number] 05:10:00 Test Item Value Reference Range Interpretation [...] PERCENT (BEAKER) (test code = 2801) POCT-GLUCOSE [id number] 21:18:00 Test Item Value Reference Range Interpretation Comments POC-GLUCOSE METER 105 mg/dL 70-110 : TESTED Malaika Moreno [facility] 6720 (BEAKER) (test code = [place], 1538) 8[address]: Division Director/Techni alton ID = [id number] for TIFFANIE HARDING POCT-GLUCOSE [id number] 13:16:00 Test Item Value Reference Range Interpretation Comments POC-GLUCOSE METER 131 mg/dL 70-110 H : TESTED A T [facility] 6720 (BEAKER) (test code = [place], 1538) 23196: Division Director/Techni alton ID = [id number] for Ashwin Platt 2D Echo W/Doppler(CW/PW/Color)2020-06-19 12:42:42Ejection FractionSLEH ECHO HEARTLAB MKCKESSON CPACSInterface, External Ris In - 06/19/2020 12:42 PM C DTTransthoracic Echocardiography Report (TTE) Demographics Patient Name LETICIA WADE Date ofStudy 06/17/2020 FIORELLA Gender Female Visit Number [id number] Race Unknown Room Number 1523 Number Date of 1955 Referring Physician HERVE ZEE Age 64 year(s) 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 Fact Sheet for Healthcare Providers:https://www.[employer].Ubalo/sites/default/f roselia/product/documents/F act_Sheet_HC_Providers_L zjr_GJKC-TeT-0.pdf Fact Sheet for Healthcare Patients:https://www.[employer]/sites/default/fi les/product/documents/Fa ct_Sheet_Patients_Lyra_S ARS-CoV-2.pdf Performing Laboratory:[facility] [address] [facility])2020-06-19 11:25:00 Test Item Value Reference Range Interpretation Comments SARS-COV2/RT-PCR (test Negative Not Detected, Negative, code = 4005355) See external report for linked test SARS-COV-2 PERFORMING LAB [facility] NICK (test code = 5056884) Negative result for this test determines that [...] 564(g) of the Act.Fact Sheet for Healthcare Providers:https://www.[employer]/sites/default/files/product/documents/Fact_Shee e_WC_Icfhwtlzs_Cexe_BQJF-NlK-9.pdfFact Sheet for Healthcare Patients:https://www.[employer]/sites/default/files/product/ documents/Qesp_Hlysc_Mlonlhzw_Lnnv_IAUC-ExZ-4.pdfPerforming Laboratory:[facility] [id number]-[id number] METER 2020-06-19 05:59:00 Test Item Value Reference Range Interpretation Comments POC-GLUCOSE METER 122 mg/dL 70-110 H : [facility] (BEAKER) (test code = RONNY Munoz [facility], 1538) 90387: Division Director/Techni alton ID = [id number] for ELIAN PLATT [id number] 04:43:00 Test Item Value Reference Range Interpretation Comments PHOSPHORUS (BEAKER) (test code = 2.9 mg/dL 2.3-4.7 604) Division Director ID - [id number] 04:43:00 Test Item Value Reference Range Interpretation Comments MAGNESIUM (BEAKER) (test code = 1.9 mg/dL 1.6-2.6 627) Division Director ID - EDASICOMPREHENSIVE METABOLIC [id number] 04:43:00 Test Item Value Reference Range Interpretation [...] S NOT APPLICABLE FOR DIALYSIS PATIEN TS. Division Director ID - EDASICBC W/PLT COUNT & AUTO [id number] 04:20:00 Test Item Value Reference Range Interpretation [...] PERCENT (BEAKER) (test code = 2801) CALCIUM, [id number] 04:11:00 Test Item Value Reference Range Interpretation Comments CALCIUM IONIZED (BEAKER) (test 1.16 mmol/L 1.12-1.27 code = 698) PH, BLOOD (BEAKER) (test code = 7.37 1810) ADAN [id number] 01:54:00 Test Item Value Reference Range Interpretation Comments Rh Factor (test code = 2589) POS ABO Grouping (test code = 2588) B [facility]PO[facility] [id number] 21:49:00 Test Item Value Reference Range Interpretation Comments POC-GLUCOSE METER 113 mg/dL 70-110 H : TESTED A T [facility] 6720 (BEAKER) (test code = [place], 1538) [address]: Division Director/Techni alton ID = [id number] for ERIC MIKE ELIAN Type and screen, [id number] 17:47:00 Test Item Value Reference Range Interpretation Comments ABO/RH AUTOMATED (BEAKER) (test B POSITIVE code = 2260) Ab Scrn (test code = 890-4) NEGATIVE [facility] CenterPOCT-GLUCOSE [id number] 16:10:00 Test Item Value Reference Range Interpretation Comments POC-GLUCOSE METER 96 mg/dL 70-110 : TESTED A T [facility] 6720 (BEAKER) (test code = [place], 1538) 29806: Division Director/Techni alton ID = [id number] for CAMERON PIERCE Hemoglobin [id number] 11:26:00 Test Item Value Reference Range Interpretation Comments Hemoglobin A1C (test code = 4548-4) 5.4 % 4.3-6.1 Lab Interpretation (test code = Normal 05899-0) [facility] CenterHEMOGLOBIN [id number] 11:26:00 Test Item Value Reference Range Interpretation Comments HEMOGLOBIN A1C (BEAKER) (test code = 5.4 % 4.3-6.1 368) POCT-GLUCOSE [id number] 11:19:00 Test Item Value Reference Range Interpretation Comments POC-GLUCOSE METER 135 mg/dL 70-110 H : TESTED A T [facility] 6720 (BEAKER) (test code = [facility], 1538) 32841: Division Director/Techni alton ID = [id number] for CAMERON HILL Troponin [id number] 10:05:00 Test Item Value Reference Range Interpretation Comments Troponin I (test code = 0.02 ng/mL 0-0.03 93347-8) TEX (test code = TEX) Troponin I [...] ROSIANG Lab Interpretation (test Normal code = 25734-9) [facility] CenterTROPONIN [id number] 10:05:00 Test Item Value Reference Range Interpretation [...] failure, acidosis, acute neurological disease, and persistent tachyarrhythmia.Division Director ID - NUBIAGPOCT-GLUCOSE METER 2020-06-18 08:09:00 Test Item Value Reference Range Interpretation Comments POC-GLUCOSE METER 120 mg/dL 70-110 H : TESTED A T [facility] 6720 (BEAKER) (test code = [place], 1538) 49[address]: Division Director/Techni alton ID = [id number] for CAMERON HILL T4, [id number] 08:07:00 Test Item Value Reference Range Interpretation Comments Free T4 (test code = <0.40 0.7-1.48 L 3024-7) TEX (test code = TEX) Division Director ID - ROSDAVING Lab Interpretation (test Abnormal code = 48496-1) [facility] CenterT4, [id number] 08:07:00 Test Item Value Reference Range Interpretation Comments FREE T4 ([facility]) (test code = 655) < ng/dL 0.70-1.48 L Division Director ID - ROSIANGTSH/Free T4 If [id number] 07:15:00 Test Item Value Reference Range Interpretation Comments TSH (test code = 76.986 See_Comment H [Automated 72920-4) message] The system which generated this result transmit robbie reference range : 0.350 - 4.940 uIU/mL. The reference range was not used to interpret this result as normal/abnormal . TEX (test code = TEX) Division Director ID - EDASI Lab Interpretation Abnormal (test code = 76672-9) [facility] CenterTSH/FREE T4 IF [id number] 07:15:00 Test Item Value Reference Range Interpretation Comments THYROID STIMULATING HORMONE 76.986 uIU/mL 0.350-4.940 H (BEAKER) (test code = 772) Division Director ID - [id number] 07:00:00 Test Item Value Reference Range Interpretation Comments PHOSPHORUS (BEAKER) (test code = 3.5 mg/dL 2.3-4.7 604) Division Director ID - [id number] 07:00:00 Test Item Value Reference Range Interpretation Comments MAGNESIUM (BEAKER) (test code = 1.9 mg/dL 1.6-2.6 627) Division Director ID - EDASICOMPREHENSIVE METABOLIC [id number] 07:00:00 Test Item Value Reference Range Interpretation [...] S NOT APPLICABLE FOR DIALYSIS PATIEN TS. Division Director ID - BRENDENTROPONIN [id number] 06:52:00 Test Item Value Reference Range Interpretation [...] failure, acidosis, acute neurological disease, and persistent tachyarrhythmia.Division Director ID - EDASIB-type Natriuretic Factor (BNP)2020-06-18 06:50:00 Test Item Value Reference Range Interpretation Comments BNP (test code = 51285-2) 35 pg/mL 0-100 TEX (test code = TEX) Division Director ID - EDASI Lab Interpretation (test Normal code = 75475-2) [facility] CenterB-TYPE NATRIURETIC FACTOR (BNP)2020-06-18 06:50:00 Test Item Value Reference Range Interpretation Comments B-TYPE NATRIURETIC PEPTIDE (BEAKER) 35 pg/mL 0-100 (test code = 700) Division Director ID - EDASICBC W/PLT COUNT & AUTO [id number] 06:33:00 Test Item Value Reference Range Interpretation [...] PERCENT (BEAKER) (test code = 2801) CALCIUM, [id number] 05:58:00 Test Item Value Reference Range Interpretation Comments CALCIUM IONIZED (BEAKER) (test 1.14 mmol/L 1.12-1.27 code = 698) PH, BLOOD (BEAKER) (test code = 7.36 1810) POCT-GLUCOSE [id number] 21:55:00 Test Item Value Reference Range Interpretation Comments POC-GLUCOSE METER 187 mg/dL 70-110 H : [facility] (BEAKER) (test code = [place], 1538) [address]: Division Director/Techni alton ID = [id number] for ELIAN PLATT COMPREHENSIVE METABOLIC [id number] 21:39:00 Test Item Value Reference Range Interpretation [...] S NOT APPLICABLE FOR DIALYSIS PATIEN TS. Division Director ID - DBCBC W/PLT COUNT & AUTO [id number] 21:23:00 Test Item Value Reference Range Interpretation [...] code = 2801) STOOL CULTURE + SHIGA [id number] 10:48:00 Test Item Value Reference Range Interpretation Comments CULTURE (BEAKER) No Salmonella, Shigella (test code = 1095) or Campylobacter isolated Unable to test for Shiga Toxin 1 due to insufficient growth of specimen.Unable to test for Shiga Toxin 2 due to insufficient growth of specimen.STOOL PATH [id number] 13:49:00 Test Item Value Reference Range Interpretation Comments PATHOGEN EXAM CHARGED (BEAKER) (test Done code = 2381) POCT-GLUCOSE [id number] 11:36:00 Test Item Value Reference Range Interpretation Comments POC-GLUCOSE METER 106 mg/dL 70-110 TESTED AT [facility] 6720 (BEAKER) (test code = RONNY Munoz [place] 1538) [address] POCT-GLUCOSE [id number] 08:21:00 Test Item Value Reference Range Interpretation Comments POC-GLUCOSE METER 110 mg/dL 70-110 TESTED AT [facility] 6720 (BEAKER) (test code = RONNY Munoz [place] 1538) [address] [id number] 05:17:00 Test Item Value Reference Range Interpretation Comments PHOSPHORUS (BEAKER) (test code = 3.6 mg/dL 2.3-4.7 604) [id number] 05:17:00 Test Item Value Reference Range Interpretation Comments MAGNESIUM (BEAKER) (test code = 1.6 mg/dL 1.6-2.6 627) BASIC METABOLIC [id number] 05:17:00 Test Item Value Reference Range Interpretation [...] PATIEN TS. CBC W/PLT COUNT & AUTO [id number] 05:09:00 Test Item Value Reference Range Interpretation [...] L 0.00-0.20 (test code = 417) 0.00PROTHROMBIN [id number] 04:57:00 Test Item Value Reference Range Interpretation [...] POC-GLUCOSE METER 100 mg/dL 70-110 TESTED AT [place] [address] ([facility]) (test code = [facility] 1538) [address] BASIC METABOLIC [id number] 18:30:00 Test Item Value Reference Range Interpretation [...] NOT APPLICABLE FOR DIALYSIS PATIEN TS. POCT-GLUCOSE [id number] 15:40:00 Test Item Value Reference Range Interpretation Comments POC-GLUCOSE METER 95 mg/dL 70-110 TESTED AT [place] [address] ([facility]) (test code = [facility] [address] 1538) POCT-GLUCOSE [id number] 11:47:00 Test Item Value Reference Range Interpretation Comments POC-GLUCOSE METER 101 mg/dL 70-110 TESTED AT [facility] 6720 (BEAKER) (test code = [place] 1538) [address] POCT-GLUCOSE [id number] 07:32:00 Test Item Value Reference Range Interpretation Comments POC-GLUCOSE METER 88 mg/dL 70-110 TESTED AT [facility] 6720 (BEAKER) (test code = [place] [address] 1538) CBC W/PLT COUNT & AUTO [id number] 07:32:00 Test Item Value Reference Range Interpretation [...] 0.00-0.20 (test code = 417) 0.00BASIC METABOLIC [id number] 06:23:00 Test Item Value Reference Range Interpretation [...] S NOT APPLICABLE FOR DIALYSIS PATIEN TS. [id number] 06:23:00 Test Item Value Reference Range Interpretation Comments MAGNESIUM (BEAKER) (test code = 1.6 mg/dL 1.6-2.6 627) [id number] 06:23:00 Test Item Value Reference Range Interpretation Comments PHOSPHORUS (BEAKER) (test code = 3.6 mg/dL 2.3-4.7 604) PROTHROMBIN [id number] 06:15:00 Test Item Value Reference Range Interpretation [...] POC-GLUCOSE METER 108 mg/dL 70-110 TESTED AT [place] [address] ([facility]) (test code = [facility] 1538) [address] BASIC METABOLIC [id number] 18:12:00 Test Item Value Reference Range Interpretation [...] NOT APPLICABLE FOR DIALYSIS PATIEN TS. POCT-GLUCOSE [id number] 17:53:00 Test Item Value Reference Range Interpretation Comments POC-GLUCOSE METER 165 mg/dL 70-110 H TESTED AT [place] [id number] (Burt) (test code = [facility] 1538) [address] PROTHROMBIN [id number] 13:53:00 Test Item Value Reference Range Interpretation Comments PROTIME (BEAKER) (test code = 14.7 seconds 11.7-14.7 759) INR (BEAKER) (test code = 370) 1.2 <=5.9 RECOMMENDED COUMADIN/WARFARIN INR THERAPY RANGESSTANDARD DOSE: 2.0 - 3.0 Includes: PROPHYLAXIS forvenous thrombosis, systemic embolization; TREATMENT for venous thrombosis and/or pulmonary embolus.HIGH RISK: Target INR is 2.5-3.5 for patients with mechanical heart valves.POCT-GLUCOSE [id number] 11:49:00 Test Item Value Reference Range Interpretation Comments POC-GLUCOSE METER 120 mg/dL 70-110 H TESTED AT [place] [address] ([facility]) (test code = [facility] 1538) [address] POCT-GLUCOSE [id number] 07:58:00 Test Item Value Reference Range Interpretation Comments POC-GLUCOSE METER 94 mg/dL 70-110 TESTED AT [place] [address] ([facility]) (test code = [facility] [address] 1538) [id number] 07:23:00 Test Item Value Reference Range Interpretation Comments PHOSPHORUS (BEAKER) (test code = 3.6 mg/dL 2.3-4.7 604) [id number] 07:23:00 Test Item Value Reference Range Interpretation Comments MAGNESIUM (BEAKER) (test code = 1.8 mg/dL 1.6-2.6 627) BASIC METABOLIC [id number] 07:23:00 Test Item Value Reference Range Interpretation [...] PATIEN TS. CBC W/PLT COUNT & AUTO [id number] 07:15:00 Test Item Value Reference Range Interpretation [...] (test code = 416) BASOPHILS ABSOLUTE COUNT (AKER) 0.07 K/ L 0.00-0.20 (test code = 417) 0.00POCT-GLUCOSE [id number] 20:44:00 Test Item Value Reference Range Interpretation Comments POC-GLUCOSE METER 164 mg/dL 70-110 H TESTED AT [facility] 6720 ([facility]) (test code = [facility] 1538) [address] BASIC METABOLIC [id number] 19:53:00 Test Item Value Reference Range Interpretation Comments SODIUM (BEAKER) 137 meq/L 136-145 (test code = 381) POTASSIUM (BEAKER) 4.1 meq/L 3.5-5.1 (test code = 379) CHLORIDE (BEAKER) 103 meq/L 98-107 (test code = 382) CO2 (BEAKER) (test 23 meq/L 22-29 code = 355) BLOOD UREA NITROGEN 20 mg/dL 7-21 ([facility]) (test code = 354) CREATININE (BEAKER) 1.15 mg/dL 0.57-1.25 (test code = 358) GLUCOSE RANDOM 157 mg/dL 70-105 H ([facility]) (test code = 652) CALCIUM (BEAKER) 9.8 mg/dL 8.4-10.2 (test code = 697) EGFR ([facility]) (test 48 mL/min/1.73 ESTIMA ROBBIE GFR IS code = 1092) sq m NOT ACCURATE CREATININE CLEARANCE IN PREDICTING GLOMERULAR FILTRATION RATE . ESTIMATED GFR I S NOT APPLICABLE FOR DIALYSIS PATIEN TS. POCT-GLUCOSE [id number] 17:25:00 Test Item Value Reference Range Interpretation Comments POC-GLUCOSE METER 97 mg/dL 70-110 TESTED AT [facility] 6720 ([facility]) (test code = [facility] [address] 1538) CLOSTRIDIUM DIFFICILE TOXIN [id number] 15:24:00 Test Item Value Reference Range Interpretation Comments CLOSTRIDIUM DIFFICILE TOXIN, PCR Not Detected Not Detected ([facility]) (test code = 1525) This qualitative real-time [...] of a positive result is not recommended.POCT-GLUCOSE [id number] 12:30:00 Test Item Value Reference Range Interpretation Comments POC-GLUCOSE METER 110 mg/dL 70-110 TESTED AT [place] [address] ([facility]) (test code = [facility] 1538) [address] POCT-GLUCOSE [id number] 07:56:00 Test Item Value Reference Range Interpretation Comments POC-GLUCOSE METER 94 mg/dL 70-110 TESTED AT [place] [address] ([facility]) (test code = [facility] [address] 1538) HEMOGLOBIN [id number] 07:48:00 Test Item Value Reference Range Interpretation Comments HEMOGLOBIN A1C ([facility]) (test code = 5.4 % 4.3-6.1 368) CBC W/PLT COUNT & AUTO [id number] 06:42:00 Test Item Value Reference Range Interpretation Comments WHITE BLOOD CELL COUNT ([facility]) 8.0 K/ L 4.0-10.0 (test code = 775) RED BLOOD CELL COUNT ([facility]) 4.65 M/ L 4.00-5.00 (test code = 761) HEMOGLOBIN (BEAKER) (test code = 13.6 GM/DL 12.0-15.0 410) HEMATOCRIT ([facility]) (test code = 41.6 % 36.0-45.0 411) MEAN CORPUSCULAR VOLUME ([facility]) 89.3 fL 82.0-99.0 (test code = 753) MEAN CORPUSCULAR HEMOGLOBIN 29.2 pg 27.0-33.0 (AKER) (test code = 751) MEAN CORPUSCULAR HEMOGLOBIN CONC 32.7 GM/DL 32.0-36.0 ([facility]) (test code = 752) RED CELL DISTRIBUTION [...] K/ L 0.00-0.20 (test code = 417) [id number] 06:06:00 Test Item Value Reference Range Interpretation Comments PHOSPHORUS (BEAKER) (test code = 3.7 mg/dL 2.3-4.7 604) [id number] 06:06:00 Test Item Value Reference Range Interpretation Comments MAGNESIUM (BEAKER) (test code = 1.4 mg/dL 1.6-2.6 L 627) BASIC METABOLIC [id number] 06:06:00 Test Item Value Reference Range Interpretation [...] NOT APPLICABLE FOR DIALYSIS PATIEN TS. POCT-GLUCOSE [id number] 21:04:00 Test Item Value Reference Range Interpretation Comments POC-GLUCOSE METER 100 mg/dL 70-110 TESTED AT [place] [address] ([facility]) (test code = [facility] [place] 1538) [id number] BASIC METABOLIC [id number] 20:03:00 Test Item Value Reference Range Interpretation [...] NOT APPLICABLE FOR DIALYSIS PATIEN TS. POCT-GLUCOSE [id number] 15:45:00 Test Item Value Reference Range Interpretation Comments POC-GLUCOSE METER 130 mg/dL 70-110 H TESTED AT [facility] 67[address] ([facility]) (test code = [facility] [place] 1538) [id number] POCT-GLUCOSE [id number] 11:20:00 Test Item Value Reference Range Interpretation Comments POC-GLUCOSE METER 102 mg/dL 70-110 TESTED AT [facility] 67[address] (BEAKER) (test code = [place] 1538) [id number] HEMOGLOBIN [id number] 08:50:00 Test Item Value Reference Range Interpretation Comments HEMOGLOBIN A1C (BEAKER) (test code = 5.6 % 4.3-6.1 368) [id number] 05:44:00 Test Item Value Reference Range Interpretation Comments PHOSPHORUS (BEAKER) (test code = 3.4 mg/dL 2.3-4.7 604) [id number] 05:44:00 Test Item Value Reference Range Interpretation Comments MAGNESIUM (BEAKER) (test code = 1.7 mg/dL 1.6-2.6 627) BASIC METABOLIC [id number] 05:44:00 Test Item Value Reference Range Interpretation [...] PATIEN TS. CBC W/PLT COUNT & AUTO [id number] 05:39:00 Test Item Value Reference Range Interpretation [...] L 0.00-0.20 (test code = 417) 0.00POCT-GLUCOSE [id number] 23:15:00 Test Item Value Reference Range Interpretation Comments POC-GLUCOSE METER 83 mg/dL 70-110 TESTED AT [facility] [address] (BEAKER) (test code = [place] [address] 1538) POCT-GLUCOSE [id number] 17:19:00 Test Item Value Reference Range Interpretation Comments POC-GLUCOSE METER 82 mg/dL 70-110 TESTED AT [facility] [address] ([facility]) (test code = RONNY Munoz [facility] [address] 1538) POCT-GLUCOSE [id number] 12:57:00 Test Item Value Reference Range Interpretation Comments POC-GLUCOSE METER 124 mg/dL 70-110 H TESTED AT [facility] 67[address] ([facility]) (test code = RONNY Munoz [facility] 1538) [id number] HEMOGLOBIN [id number] 10:12:00 Test Item Value Reference Range Interpretation Comments HEMOGLOBIN A1C (BEAKER) (test code = 5.6 % 4.3-6.1 368) CBC W/PLT COUNT & AUTO [id number] 06:14:00 Test Item Value Reference Range Interpretation [...] K/ L 0.00-0.20 (test code = 417) [id number] 05:43:00 Test Item Value Reference Range Interpretation Comments PHOSPHORUS (BEAKER) (test code = 4.1 mg/dL 2.3-4.7 604) [id number] 05:43:00 Test Item Value Reference Range Interpretation Comments MAGNESIUM (BEAKER) (test code = 1.9 mg/dL 1.6-2.6 627) BASIC METABOLIC [id number] 05:43:00 Test Item Value Reference Range Interpretation [...] NOT APPLICABLE FOR DIALYSIS PATIEN TS. POCT-GLUCOSE [id number] 05:12:00 Test Item Value Reference Range Interpretation Comments POC-GLUCOSE METER 89 mg/dL 70-110 TESTED AT [facility] [address] (BEAKER) (test code = RONNY Munoz [facility] [address] 1538) POCT-GLUCOSE [id number] 00:07:00 Test Item Value Reference Range Interpretation Comments POC-GLUCOSE METER 92 mg/dL 70-110 TESTED AT [facility] 67[address] (BEAKER) (test code = CLAUDIANV Tammy [facility] [address] 1538) [id number] 23:51:00 Test Item Value Reference Range Interpretation [...] is 2.5-3.5 for patients with mechanical heart valves.[id number] 23:49:00 Test Item Value Reference Range Interpretation Comments MAGNESIUM (BEAKER) 1.9 mg/dL 1.6-2.6 Specimen slightly (test code = 627) hemolyzed [id number] 23:49:00 Test Item Value Reference Range Interpretation Comments PHOSPHORUS (BEAKER) 3.4 mg/dL 2.3-4.7 Specimen slightly (test code = 604) hemolyzed BASIC METABOLIC [id number] 23:49:00 Test Item Value Reference Range Interpretation [...] PATIEN TS. CBC W/PLT COUNT & AUTO [id number] 23:38:00 Test Item Value Reference Range Interpretation [...] 0.00-0.20 (test code = 417) 0.00URINALYSIS W/ [id number] 22:57:00 Test Item Value Reference Range Interpretation [...] 1574) SOURCE(BEAKER) (test code = Urine, Perez 2554)
[2021-03-22 16:17] LABS: Absolute Lymphocytes (CBC) 1.6 K/uL (0.7-4.9); Basophils % 0.7 % (0-1.3); Hematocrit 40.2 % (36.0-45.0); Lymphocytes % 15.4 % (15.3-44.8); MPV 8.5 fL (7.6-11.3); RBC Red Blood Cell Count 4.36 M/uL (3.86-4.86)
[2021-03-22 16:24] LABS: Protime INR 1.38
--- NOTE | 2021-03-22 16:26 | RAD REPORT ---
EXAM DESCRIPTION: RAD - Chest Single View - 03/22/2021 4:15 pm CLINICAL HISTORY: DYSPNEA Chest pain. COMPARISON: 04/29/2021, 09/23/2020 FINDINGS: Portable technique limits examination quality. Extensive opacification of right hemithorax is noted, appearing chronic in this patient. Left lung is grossly clear. The heart is normal in size.
[2021-03-22] MEDS ORDERED: NA CHLORIDE 0.9% 3,000 ML ONE (16:37)
[2021-03-22 16:45] LABS: ALT/SGPT 16 U/L (12-78); Albumin 3.1 g/dL (3.4-5.0); Alkaline Phosphatase 75 U/L (45-117); BUN Blood Urea Nitrogen 42 mg/dL (7-18); Bicarbonate 33 mmol/L (21-32); Bilirubin Direct 0.1 mg/dL (0-0.2); Bilirubin Total 0.5 mg/dL (0.2-1.0); Glucose Level 97 mg/dL (74-106); NT PRO-BNP 1287 pg/mL (<125); Protein, Total 7.2 g/dL (6.4-8.2); Sodium Level 138 mmol/L (136-145); Troponin (Emerg Dept Use Only) < 0.02 ng/mL (0.0-0.045)
[2021-03-22 16:57] LABS: AST/SGOT 16 U/L (15-37); Magnesium 2.1 mg/dL (1.8-2.4)
[2021-03-22 17:19] LABS: Urine Bacteria LOADED /HPF (<20); Urine Mucus HEAVY /HPF (NONE SEEN); Urine RBC <5 /HPF (NONE SEEN); Urine Triple Phosphate Crystal FEW (NONE SEEN)
--- NOTE | 2021-03-22 18:02 | RAD REPORT ---
EXAM DESCRIPTION: CT - Thorax Wo Con CLINICAL HISTORY: Chest pain large right pulmonary opacity COMPARISON: Chest For Pe Angio dated 09/22/2020 FINDINGS: The thyroid gland is significantly enlarged. Fibrotic changes are present in both lungs wi th traction bronchiectasis. There is chronic appearing right lung opacity seen in the right middle lo be and lung bases. No pleural thickening or pleural effusion. No pneumothorax. Mildly prominent lymph nodes are seen in the mediastinum and hilar regions. No concerning bony finding. No gross upper abdominal finding. All CT scans are performed using dose optimization technique as appropriate and may include automated exposure control or mA/KV adjustment according to patient size. IMPRESSION: Fibrotic changes are present involving both lungs with traction bronchiectasis and volum e loss.Chronic appearing right lung opacities are noted without acute infiltrate suspected. Diffuse thyroid goiter.
--- NOTE | 2021-03-22 18:03 | ER ---
Nurse's Notes [facility] Name: Rosio Jain Age: 65 yrs Sex: Female : 1955 Arrival Date: 03/22/2021 Time: 15:53 Bed 4 Private MD: Diagnosis: UTI/ Urinary tract infection, site not specified;Severe sepsis with septic shock;Type 2 diabetes mellitus with hyperglycemia;Obesity, unspecified Presentation: 03/22 15:53 Chief complaint: Patient states: Reports triple vision and SOB. SOB has gotten better ll1 since EMS picked her up. EMS states: Toned out for SOB and low O2 sat. Found BP to be low 62/47. 92% RA, 95% 2.5L NC. Coronavirus screen: Client denies travel out of the [place] in the last 14 days. difficulty breathing, shortness of breath, Client presents with at least one sign or symptom that may indicate coronavirus-19. Standard/surgical mask placed on the client. Ebola Screen: Patient denies travel to an Ebola-affected area in the 21 days before illness onset. Initial Sepsis Screen: Does the patient meet any 2 criteria? Systolic BP < 90 mmHg. No. Patient's initial sepsis screen is negative. Does the patient have a suspected source of infection? No. Patient's initial sepsis screen is negative. Risk Assessment: Do you want to hurt yourself or someone else? Patient reports no desire to harm self or others. Onset of symptoms was March 22, 2021. 15:53 Method Of Arrival: EMS ll1 15:53 Acuity: DYAN 2 ll1 Historical: - Allergies: 15:57 NKA; ll1 - PMHx: 15:57 ADD/ADHD; Diabetes - NIDDM; COPD; Hypertension; Hypothyroidism; Asthma; Anxiety; PE; ll1 - Immunization history:: Adult Immunizations up to date, Client reports having NOT received the Covid vaccine. - Social history:: Smoking status: Patient denies any tobacco usage or history of. Screenin:30 Abuse screen: Denies threats or abuse. Denies injuries from another. Nutritional kg screening: No deficits noted. Tuberculosis screening: No symptoms or risk factors identified. Fall Risk No fall in past 12 months (0 pts). IV access (20 points). Ambulatory Aid- None/Bed Rest/Nurse Assist (0 pts). Gait- Normal/Bed Rest/Wheelchair (0 pts) Mental Status- Oriented to own ability (0 pts). Total Torres Fall Scale indicates No Risk (0-24 pts). Assessment: 15:50 General: Appears obese, Behavior is calm, cooperative, appropriate for age, quiet. kg Pain: Denies pain. 15:50 Neuro: Level of Consciousness is awake, alert, obeys commands, Oriented to person, kg place, time, situation, Appropriate for age [employer] are weak bilaterally. Cardiovascular: Heart tones S1 S2 Capillary refill is > 3 seconds Dusky color. Pulses are palpable in right radial artery and left radial artery are 2+ in right radial artery and left radial artery. Cardiovascular: Rhythm is regular. Respiratory: Reports shortness of breath at rest on exertion Airway is patent Trachea midline Respiratory effort is even, labored, Respiratory pattern is regular, symmetrical, Breath sounds are diminished bilaterally. Respiratory: Onset: The symptoms/episode began/occurred this morning, the patient has moderate shortness of breath. GI: Abdomen is round distended. : Reports Pt stated, "My caregiver stated that I havent been putting out as much urine as I normally do. ". EENT: Reports Blurred vision this am. 18:11 Reassessment: transfer initiated by Dr. Gonzales to [facility] at this time. 19:30 Reassessment: Patient appears in no apparent distress at this time. No changes from [facility] previously documented assessment. 19:35 : Perez in place to gravity drainage Urine is cloudy, puss and sediment noted in kg Perez catheter after placement. 20:46 Reassessment: Patient appears in no apparent distress at this time. No changes from [facility] previously documented assessment. Patient and/or family updated on plan of care and expected duration. Pain level reassessed. Patient is alert, oriented x 3, equal unlabored respirations, skin warm/dry/pink. 21:13 General: report called to rn at [facility]. ak2 22:00 Reassessment: Patient appears in no apparent distress at this time. No changes from [facility] previously documented assessment. Patient and/or family updated on plan of care and expected duration. Pain level reassessed. Patient is alert, oriented x 3, equal unlabored respirations, skin warm/dry/pink. 23:00 Reassessment: Patient appears in no apparent distress at this time. No changes from jm8 previously documented assessment. Patient and/or family updated on plan of care and expected duration. Pain level reassessed. Patient is alert, oriented x 3, equal unlabored respirations, skin warm/dry/pink. 23:34 Reassessment: EMS leaving with patient at this time. jm8 Vital Signs: 15:47 BP 68 / 51; Pulse 64; Resp 20; Pulse Ox 98% on 2 lpm NC; Weight 140.16 kg (R); Height 5 kg ft. 8 in. (172.72 cm) (R); 15:53 BP 68 / 51; Pulse 64; Resp 16; Temp 98.1; Pulse Ox 98% ; ll1 16:01 BP 55 / 37; Pulse 66; Resp 21; kg 16:25 BP 68 / 44; Pulse 70; Resp 18; Pulse Ox 92% on 2 lpm NC; kg 16:30 BP 64 / 42; Pulse 73; Resp 20; Pulse Ox 93% on 2 lpm NC; kg 16:45 BP 61 / 37; Pulse 112; Resp 18; Pulse Ox 100% on 2 lpm NC; kg 17:00 BP 82 / 50; Pulse 66; Resp 22; Pulse Ox 100% on 2 lpm NC; kg 17:15 BP 90 / 45; Pulse 114; Resp 18; Pulse Ox 100% on 2 lpm NC; kg 18:02 BP 69 / 43; Pulse 63; Resp 20; Pulse Ox 100% on 2 lpm NC; kg 18:15 BP 68 / 42; Pulse 65; Resp 20; Pulse Ox 100% on 2 lpm NC; kg 18:20 BP 83 / 51; Pulse 58; Resp 18; Pulse Ox 100% on 2 lpm NC; kg 18:25 BP 79 / 48; Pulse 60; Resp 17; Pulse Ox 99% on 2 lpm NC; kg 19:30 BP 100 / 70; Pulse 48; Resp 20; Pulse Ox 100% on 2 lpm NC; kg 20:41 BP 102 / 59; Pulse 73; Resp 16; Pulse Ox 100% on 2 lpm NC; jm8 21:21 BP 94 / 53; Pulse 69; Resp 16; Pulse Ox 100% on 2 lpm NC; jm8 21:53 BP 92 / 58; Pulse 64; Resp 16; Pulse Ox 100% on 2 lpm NC; jm8 23:03 BP 92 / 59; Pulse 61; Resp 16; Pulse Ox 100% on 2 lpm NC; jm8 15:47 Body Mass Index 46.98 (140.16 kg, 172.72 cm) kg ED Course: 15:53 Patient arrived in ED. ll1 15:55 Sage Breaux PA is PHCP. jr8 15:55 Chapo Lipscomb MD is Attending Physician. jr8 15:57 Triage completed. ll1 15:57 Arm band placed on Patient placed in an exam room, on a stretcher. ll1 16:14 XRAY Chest (1 view) In Process Unspecified. EDMS 16:15 Inserted saline lock: 20 gauge in right antecubital area, using aseptic technique. kg 16:32 Perez cath inserted, using sterile technique, 18 Fr., by vt, balloon inflated, to kg gravity drainage, urine specimen collected. 16:43 Rula Morrison, RN is Primary Nurse. kg 17:00 Patient has correct armband on for positive identification. Placed in gown. Bed in low kg position. Call light in reach. Side rails up X2. 17:50 CT Chest Wo Con In Process Unspecified. EDMS 17:50 Assisted provider with central line placement. kg 17:59 Attending Physician role handed off by Chapo Lipscomb MD christiano 17:59 Serge Gonzales MD is Attending Physician. [facility] 18:47 Bette Acevedo, MARK, Charge Nurse initiated transfer at [facility] with Bren Ribera. 18:[address] [facility] [facility] to initiate transfer. Was placed on hold for 30 minutes before the call was tt3 disconnected for wait time. 19:10 Bren Ribera with [facility] called back to deny the request to the [facility] tt3 due to capacity. Per Dr. oGnzales, Bren is checking the [facility]. 19:[address] [facility] back to initiate transfer and the call just rang until it was tt3 disconnected due to wait time. Information passed on to Dr. Gonzales. 19:[address] [facility] a third time, no answer, call disconnected due to wait time. tt3 20:20 Bren Ribera called back with the hospitalist from [facility] to [facility] do a consultation with Dr. Gonzales. 20:[address] Gonzales admin approval. The pt is going to [address] to the MICU. Dr. Rodriguez is the accepting physician. Nurse to call report to . Face sheet and MOT faxed to per Bren's request. 22:59 [facility] here to transfer pt. tt3 23:35 Patient transferred, IV remains in place. jm8 Administered Medications: 17:21 Not Given (Physician Discretion): vancoMYCIN 1 grams IVPB once over 2 hrs jr8 17:21 Not Given (Physician Discretion): Cefepime 1 grams IVPB at 200 ml/hr once over 30 mins; jr8 (mix in NS 100 mL) 17:30 Drug: NS 0.9% (30 ml/kg) 30 ml/kg Route: IV; Rate: bolus; Site: right antecubital; kg 18:10 Drug: Levophed (norepinephrine) (4 mg/250 mL D5W 4 mcg/min Route: IV; Rate: calculated kg rate; Site: left jugular; 21:50 Follow up: Rate change 7.5 mcg/min [facility] 18:10 Drug: Rocephin - (cefTRIAXone) 2 grams Route: IVPB; Infused Over: 30 mins; Site: left kg jugular; 19:24 Follow up: Response: No adverse reaction; IV Status: Completed infusion kg 19:15 Drug: NS 0.9% (30 ml/kg) 30 ml/kg Route: IV; Rate: bolus; Site: left antecubital; kg Outcome: 18:03 ER care complete, transfer ordered by . christiano 23:35 Transferred to [facility]. [facility] 23:35 Condition: good 23:35 Instructed on the need for transfer. 23:36 Patient left the ED. jm8 Addendum: 03/25/2021 12:30 Addendum: Culture Results: Positive urine culture. Pt was transferred to [address], results faxed to Josette (Nurse). Signatures: Dispatcher [employer] EDSerge Crockett MD MD cha Calderon, Audri, RN RN aa5 Bette Westfall RN RN ss Sage Breaux PA PA 8 Khoa Carreon RN RN 1 Vince Anderson 3 Supa Wall RN RN jm8 Rula Morrison RN RN kg Arthur Mock2 Corrections: (The following items were deleted from the chart) 03/22 18:28 18:10 Rocephin - (cefTRIAXone) 2 grams IVPB in left subclavian over 30 mins kg kg 20:38 20:[address] Gonzales admin approval. The pt is going to [address] to the MICU. Dr. Rodriguez is the accepting physician. Nurse to call report to . Face sheet, MOT and covid vaccine card faxed to per Bren's request. tt3 21:22 20:41 BP 102 / 59; Pulse 73bpm; Resp 16bpm; Pulse Ox 100% RA; jm8 jm8
--- NOTE | 2021-03-22 18:03 | EDPHYS ---
Physician Documentation [facility] Name: Rosio Jain Age: 65 yrs Sex: Female : 1955 Arrival Date: 03/22/2021 Time: 15:53 Bed 4 Private MD: ED Physician Serge Gonzales HPI: 03/22 17:23 This 65 yrs old Female presents to ER via EMS with complaints of Blood jr8 Pressure Problem, Shortness Of Breath. 17:23 Onset: The symptoms/episode began/occurred acutely, today. Associated signs and jr8 symptoms: Pertinent positives: visual disturbances. Modifying factors: The patient symptoms are alleviated by nothing, the patient symptoms are aggravated by nothing. The patient has not experienced similar symptoms in the past. The patient has not recently seen a physician. 17:23 Patient stated that she was in pain and took one of her norco as prescribed. Had felt jr8 ok but later on started to have visual changes and felt more short of breath than usual. EMS transported patient to ED. Stated that there BP was consistently running low for them. Patient stated that she does feel weak. Historical: - Allergies: 15:57 NKA; ll1 - PMHx: 15:57 ADD/ADHD; Diabetes - NIDDM; COPD; Hypertension; Hypothyroidism; Asthma; Anxiety; PE; ll1 - Immunization history:: Adult Immunizations up to date, Client reports having NOT received the Covid vaccine. - Social history:: Smoking status: Patient denies any tobacco usage or history of. ROS: 17:23 Eyes: Negative for injury, pain, redness, and discharge, ENT: Negative for injury, jr8 pain, and discharge, Neck: Negative for injury, pain, and swelling, Cardiovascular: Negative for chest pain, palpitations, and edema, Abdomen/GI: Negative for abdominal pain, nausea, vomiting, diarrhea, and constipation, Back: Negative for injury and pain, MS/Extremity: Negative for injury and deformity, Skin: Negative for injury, rash, and discoloration. 17:23 Respiratory: Positive for shortness of breath. 17:23 Neuro: Positive for visual changes, weakness. Exam: 17:23 Eyes: Pupils equal round and reactive to light, extra-ocular motions intact. Lids and jr8 lashes normal. Conjunctiva and sclera are non-icteric and not injected. Cornea within normal limits. Periorbital areas with no swelling, redness, or edema. ENT: Nares patent. No nasal discharge, no septal abnormalities noted. Tympanic membranes are normal and external auditory canals are clear. Oropharynx with no redness, swelling, or masses, exudates, or evidence of obstruction, uvula midline. Mucous membranes moist. Neck: Trachea midline, no thyromegaly or masses palpated, and no cervical lymphadenopathy. Supple, full range of motion without nuchal rigidity, or vertebral point tenderness. No Meningismus. Cardiovascular: Regular rate and rhythm with a normal S1 and S2. No gallops, murmurs, or rubs. Normal PMI, no JVD. Pulses 1+ radial bilaterally Respiratory: Lungs have equal breath sounds bilaterally, clear to auscultation and percussion. No rales, rhonchi or wheezes noted. No increased work of breathing, no retractions or nasal flaring. 17:23 Neuro: Awake and alert, GCS 15, oriented to person, place, time, and situation. Cranial nerves II-XII grossly intact. Motor strength 5/5 in all extremities. Sensory grossly intact. 17:23 Constitutional: The patient appears alert, awake, non-diaphoretic, pale. 17:23 Abdomen/GI: Inspection: obese Bowel sounds: active, all quadrants, Palpation: abdomen is soft and non-tender, in all quadrants, mass, is not appreciated, rebound tenderness, is not appreciated, voluntary guarding, is not appreciated, involuntary guarding, is not appreciated, no appreciated organomegaly. 17:23 Skin: Appearance: Color: pale, Temperature: cool, Moisture: normal moisture, petechiae, not noted. Vital Signs: 15:47 BP 68 / 51; Pulse 64; Resp 20; Pulse Ox 98% on 2 lpm NC; Weight 140.16 kg (R); Height 5 kg ft. 8 in. (172.72 cm) (R); 15:53 BP 68 / 51; Pulse 64; Resp 16; Temp 98.1; Pulse Ox 98% ; ll1 16:01 BP 55 / 37; Pulse 66; Resp 21; kg 16:25 BP 68 / 44; Pulse 70; Resp 18; Pulse Ox 92% on 2 lpm NC; kg 16:30 BP 64 / 42; Pulse 73; Resp 20; Pulse Ox 93% on 2 lpm NC; kg 16:45 BP 61 / 37; Pulse 112; Resp 18; Pulse Ox 100% on 2 lpm NC; kg 17:00 BP 82 / 50; Pulse 66; Resp 22; Pulse Ox 100% on 2 lpm NC; kg 17:15 BP 90 / 45; Pulse 114; Resp 18; Pulse Ox 100% on 2 lpm NC; kg 18:02 BP 69 / 43; Pulse 63; Resp 20; Pulse Ox 100% on 2 lpm NC; kg 18:15 BP 68 / 42; Pulse 65; Resp 20; Pulse Ox 100% on 2 lpm NC; kg 18:20 BP 83 / 51; Pulse 58; Resp 18; Pulse Ox 100% on 2 lpm NC; kg 18:25 BP 79 / 48; Pulse 60; Resp 17; Pulse Ox 99% on 2 lpm NC; kg 19:30 BP 100 / 70; Pulse 48; Resp 20; Pulse Ox 100% on 2 lpm NC; kg 20:41 BP 102 / 59; Pulse 73; Resp 16; Pulse Ox 100% on 2 lpm NC; jm8 21:21 BP 94 / 53; Pulse 69; Resp 16; Pulse Ox 100% on 2 lpm NC; jm8 21:53 BP 92 / 58; Pulse 64; Resp 16; Pulse Ox 100% on 2 lpm NC; 8 23:03 BP 92 / 59; Pulse 61; Resp 16; Pulse Ox 100% on 2 lpm NC; jm8 15:47 Body Mass Index 46.98 (140.16 kg, 172.72 cm) kg Procedures: 17:23 Central Line: the site was prepped with Betadine, in sterile fashion, a triple lumen jr8 catheter was inserted, in the left internal jugular vein, in 1 attempts. placement was verified, by CXR, by blood return, the site was dressed with 4X4s, Tegaderm, foam tape, using sterile technique, the patient tolerated the procedure, well. MDM: 15:55 Patient medically screened. [facility] 17:23 Data reviewed: vital signs, nurses notes, lab test result(s), EKG, radiologic studies, jr8 CT scan, plain films. Data interpreted: Pulse oximetry: on 2L(s) per nasal canula, is 98 %. Interpretation: normal. Counseling: I had a detailed discussion with the patient and/or guardian regarding: the historical points, exam findings, and any diagnostic results supporting the discharge/admit diagnosis, lab results, radiology results. 03/22 15:55 Order name: Basic Metabolic Panel; Complete Time: 17:18 03/22 15:55 Order name: CBC with Diff; Complete Time: 17:18 03/22 15:55 Order name: LFT's; Complete Time: 17:18 [facility] 03/22 15:55 Order name: Magnesium; Complete Time: 17:18 03/22 15:55 Order name: NT PRO-BNP; Complete Time: 17:18 03/22 15:55 Order name: PT-INR; Complete Time: 17:18 03/22 15:55 Order name: Troponin (emerg Dept Use Only); Complete Time: 17:18 [facility] 03/22 15:55 Order name: Blood Culture Adult (2) [facility] 03/22 15:55 Order name: Procalcitonin; Complete Time: 17:18 [facility] 03/22 15:55 Order name: Lactate; Complete Time: 17:18 [facility] 03/22 15:55 Order name: Urine Microscopic Only; Complete Time: 17:20 03/22 16:20 Order name: COVID-19 : Document "Date of Symptom Onset" if Symptomatic. sv 03/22 17:20 Order name: Urine Culture EDMS 03/22 15:55 Order name: XRAY Chest (1 view); Complete Time: 16:27 [facility] 03/22 15:55 Order name: EKG; Complete Time: 15:56 [facility] 03/22 15:55 Order name: Cardiac monitoring; Complete Time: 19:16 [facility] 03/22 15:55 Order name: EKG - Nurse/Tech; Complete Time: 19:16 03/22 15:55 Order name: IV Saline Lock; Complete Time: 19:16 03/22 15:55 Order name: Labs collected and sent; Complete Time: 19:16 03/22 15:55 Order name: O2 Per Protocol; Complete Time: 19:16 03/22 15:55 Order name: O2 Sat Monitoring; Complete Time: 19:16 03/22 15:55 Order name: Urine Dipstick-Ancillary (obtain specimen); Complete Time: 19:16 03/22 17:19 Order name: CT Chest Wo Con; Complete Time: 18:19 jr8 03/22 17:41 Order name: SARS-COV-2 RT PCR; Complete Time: 17:56 [facility] 03/22 15:55 Order name: Ana; Complete Time: 19:15 jr8 Administered Medications: 17:21 Not Given (Physician Discretion): vancoMYCIN 1 grams IVPB once over 2 hrs jr8 17:21 Not Given (Physician Discretion): Cefepime 1 grams IVPB at 200 ml/hr once over 30 mins; jr8 (mix in NS 100 mL) 17:30 Drug: NS 0.9% (30 ml/kg) 30 ml/kg Route: IV; Rate: bolus; Site: right antecubital; kg 18:10 Drug: Levophed (norepinephrine) (4 mg/250 mL D5W 4 mcg/min Route: IV; Rate: calculated kg rate; Site: left jugular; 21:50 Follow up: Rate change 7.5 mcg/min jm8 18:10 Drug: Rocephin - (cefTRIAXone) 2 grams Route: IVPB; Infused Over: 30 mins; Site: left kg jugular; 19:24 Follow up: Response: No adverse reaction; IV Status: Completed infusion kg 19:15 Drug: NS 0.9% (30 ml/kg) 30 ml/kg Route: IV; Rate: bolus; Site: left antecubital; kg Disposition: 18:20 Co-signature as Attending Physician, Serge Gonzales MD I agree with the assessment and christiano plan of care. Disposition Summary: 03/22/21 18:03 Transfer Ordered Transfer Location: Other Acute Care Facility [facility] Reason: Higher level of care christiano Condition: Serious christiano Problem: new christiano Symptoms: have improved christiano Accepting Physician: to icu,m transfer(03/22/21 23:36) jm8 Diagnosis - UTI/ Urinary tract infection, site not specified christiano - Severe sepsis with septic shock christiano - Type 2 diabetes mellitus with hyperglycemia christiano - Obesity, unspecified christiano Forms: - Medication Reconciliation Form christiano - SBAR form christiano Critical care time excluding procedures: 03/23 07:03 Critical care time: Bedside Care: 20 minutes, Consultation: 10 minutes, Family jr8 Intervention: 5 minutes. Total time: 35 minutes Signatures: Dispatcher [employer] Serge Katz MD MD cha Roszak, Josh, PA PA jr8 Khoa Carreon RN RN ll1 Supa Wall RN RN jm8 Rula Morrison, RN RN kg Corrections: (The following items were deleted from the chart) 03/22 16:47 16:21 CORONAVIRUS ordered. EDMS EDMS 18:27 18:03 to icu,m transfer [facility] 23:36 18:27 to icu,m transfer [facility]8
[2021-03-22] MEDS ORDERED: D5W 250 ML IV ONE (18:14)
[2021-03-22] MEDS ORDERED: NA CHLORIDE 0.9% 100 ML ONE (18:14)
[2021-03-22] MEDS ORDERED: CEFTRIAXONE 1000 MG/VIAL ONE (18:14)
[2021-03-22] MEDS ORDERED: NOREPINEPHRINE 4 MG/4 ML VIAL ONE (18:14)
[2021-03-22 23:52] VITALS: TEMP 98.1
[2021-03-23 00:52] VITALS: O2SAT 100
[2021-03-23 00:59] VITALS: BP 92/59
--- NOTE | 2021-03-24 08:04 | EKG ---
Test Date: 2021-03-22 Test Time: 16:49:18 Gantry Rigger: KETAN MEASUREMENT RESULTS: Intervals: Rate: 60 [place]: 182 QRSD: 96 QT: 392 QTc: 392 E[place]y: P: 38 [place]: 182 QRS: 9 T: 18 INTERPRETIVE STATEMENTS: Normal sinus rhythm Nonspecific ST and T wave abnormality Abnormal ECG Compared to ECG 11/27/2020 15:22:57 ST (T wave) deviation now present Left ventricular hypertrophy no longer present Electronically Signed On 03-24-21 08:03:09 CDT by Kush Hernández
== END 2021-03-22 23:36 ==
LOC: ER 15:52
PROC: 05HN33Z Insertion of Infusion Device into Left Internal Jugular Vein, Percutaneous Approach (ICD-10-PCS; principal; 2021-03-22)
DX: N39.0 Urinary tract infection, site not specified (principal); R65.21 Severe sepsis with septic shock; E11.65 Type 2 diabetes mellitus with hyperglycemia; E66.9 Obesity, unspecified; I10 Essential (primary) hypertension; Z20.822 Contact with and (suspected) exposure to COVID-19
CPT/HCPCS: 93005; 87040 ×2; 87088; 85025; 87086; 80048; 36415; 83735; 85610; 80076; 83605; 87077; 87186; 81015; 84484; 84145; 83880; 71250; 71045; 51702; 99285; 36556; U0003; J7060; J7030

== ENCOUNTER 2021-04-25 13:18 | Emergency (ER) | payer OTHER ==
--- OUTSIDE RECORDS SUMMARY | 2021-04-25 13:27 | XMS REPORT | Continuity of Care Document ---
:1955 Author Organization [facility] t Address [address] [place] [address] Support Name Relationship Address Phone Cristobal Spouse [phone] [place] [address] Librado Child [phone] [place] [address] Cristobal Sp[address] [facility] [place] [place] [address] L Cristobal Spouse [address] [place] [address] [place] [address] Care Team Providers Name Role Phone Clay Fong MD Primary Care Physician Ajit BORREGO Attending Clinician Shorty Maxwell MD Attending Clinician Preston FLORES, A Attending Clinician Unavailable Doctor Unassigned, Name Attending Clinician Unavailable Kimberly Shrestha MD Attending Clinician [phone] Saadia BORREGO Attending Clinician Dakotah BORREGO Attending Clinician Manjinder Nation MD Attending Clinician Unavailable Kee Littlejohn MD Attending Clinician Basilio Morejon MD Attending Clinician Rodrick BORREGO Attending Clinician KIMBERLY SHRESTHA Attending Clinician Unavailable PRESTON MULLEN Attending Clinician Unavailable SAADIA Admitting Clinician Unavailable PRESTON MULLEN Admitting Clinician Unavailable Payers Payer Name Policy Type Policy Effective Date Expiration Date Sour ce Number [employer] MEDICARE [id number] [facility] MGD CAREWELLCARE 00:00:00 - Medica l [id number] Center 20-Present CIGNA - MGD [id number] [address] [facility] CARECIGNA 00:00:00 - Medical HMO/POS/OPEN Center [id number] -Present HMO/POS Problems Condition Condition Condition Status Onset Resolution Last Treating Co mments Source Name Details Category Date Date Treatment Clinician Date Chronic Chronic Problem Active [facility] obstructiv Obstructiv -25 Fa lana e lung e Lung 00:00: Practic disease Disease 00 e Essential Essential Problem Active [facility] hypertensi Hypertensi 1-22 Fa lana on on 00:00: Practic 00 e Chronic Chronic Problem Active [facility] - Family disease Disease 00:00: Practic stage 3 Stage 3 00 e Chronic Chronic Problem Active [facility] kidney Kidney -22 Family disease Disease [...] 0-03 Amy kes - 00:00: Medical 00 [place] HTN HTN Disease Active 2019-[address] (hypertens (hypertens 0-03 Amy kes - ion) ion) 00:00: Medical 00 Center Acquired Acquired Disease Active 2019-[facility] hypothyroi hypothyroi 0-03 Amy kes - dism dism 00:00: Medical 00 [place] VTE VTE Disease Active 2019-[address] [...] e Insomnia Insomnia Problem Active [facility] 6 Family 00:00: Practic 00 e Hypothyroi Hypothyroi Problem Active [facility] dism dism 6-24 Family 00:00: Practic 00 e 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 624 Family 00:00: Practic 00 e Chronic Chronic Problem Active [facility] back pain Back Pain 6-24 Fami ly 00:00: Practic 00 e Bilateral Bilateral Problem Active Diaz isabella knee pain Knee Pain 03-08 Fami ly 00:00: Practic 00 e Chronic Chronic Problem Active [facility] gout Gout 1-17 Family without without 00:00: [facility] e Morbid Morbid Disease Active [facility] obesity obesity 3-30 st with BMI with BMI 00:00: Hospit a of of 00 l 50.0-59.9, 50.0-59.9, adult adult Acute Acute Disease Active [facility] renal renal 3-21 st failure failure 00:00: Hospita 00 l [place] Disease Active M ethodi l fistula l fistula 2-05 st 00:00: Hospita 00 l Chronic Chronic Problem Active 2016-09 [facility] low back Low Back 2-12 Family [...] 00 Center Benign Benign Problem Active 2006-09 [facility] essential Essential 0-11 Fami ly hypertensi Hypertensi 00:00: Pr actic on on 00 e Type 2 Type 2 Problem Active 2006- [facility] diabetes Diabetes 0-11 Family mellitus Mellitus 00:00: Practi c 00 e Allergies, Adverse Reactions, Alerts This patient has no known allergies or adverse reactions. Family History Family Member Diagnosis Comments Start Date Stop Date Source Natural father [facility] Natural mother [facility] Social History Social Habit Start Date Stop Date Quantity Comments Source Sex Assigned At [facility] Alcohol intake 2020-06-26 2020-06-26 [facility] es - 00:00:00 00:00:00 [facility] Tobacco use and 2017-12-02 2017-12-02 Never used [facility] exposure 00:00:00 00:00:00 Smoking Status Start Date Stop Date Source Never smoker [facility] Medications Ordered Filled Start Stop Current Ordering Indication Dosage Frequency Signature Comments Components Source Medication Medication Date Date Medication? Clinician (SIG) Name Name levothyroxi 2019-09 Yes 175ug Take [address] [facility] ne 0-12 tablet [facility] - (SYNTHROID, 00:00: (175 mcg Me dical LEVOTHROID) 00 total) by [facility] ter 175 MCG mouth tablet Every morning [...] night as needed for Constipati on. gabapentin 2019-09 No 300mg Q.5D Take [address] (NEURONTIN) 0-12 10-12 capsule Luke s - 300 MG 00:00: 23:59 (300 mg Medical capsule 00 :00 total) by Center mouth 2 (two) times daily. ipratropium 2019-09 3mL Take [address] -albuteroL 0-12 10-07 by Marycruz - (DUO-NEB) 00:00: 23:59 nebulizati M edical 0.5 mg-3 00 :00 on every 4 Cente r mg(2.5 mg (four) base)/3 mL hours for nebulizer 360 days. solution HYDROcodone 2019-09 1{tbl} Take [address] -acetaminop 0-12 10-27 tablet by Amy carranza (NORCO 00:00: 23:59 mouth Medic al 10-325) 00 :00 every 4 Center 10-325 mg (four) per tablet hours as needed for up to 15 days. Max Daily Amount: 6 tablets HYDROcodone 2019-09 1{tbl} Take [address] -acetaminop 0-12 10-12 tablet by Amy carranza (NORCO 00:00: 00:00 mouth Medic al 10-325) 00 :00 every 6 Center 10-325 mg (six) per tablet hours as needed for up to 10 days. Max Daily Amount: 4 tablets tizanidine tizanidine No tizanidine [facility] 4 mg tablet 4 mg tablet 5-11 4 mg F amily and and 00:00: tablet and Practic irritant-co irritant-co 00 irritant-c e unter unter ounter irritant irritant irritant comb.no.2 comb.no.2 comb.no.2 gel kit gel kit gel kit hydrochloro hydrochloro 2018-09 No hydrochlor [facility] thiazide thiazide 0-02 othiazide Fa lana 12.5 mg 12.5 mg 00:00: 12.5 mg Prac tic capsule capsule 00 capsule e levothyroxi Yes 175ug QD Take 175 M ethodi ne 4-05 mcg by (SYNTHROID, 20:53: mouth Hospi ta LEVOXYL) 29 every l 175 mcg morning. tablet albuterol Yes 2{puff} Q6H Inhale 2 M ethodi (PROAIR 4-[address] HFA,PROVENT 18:48: every 6 Hos [place] 08 (six) l HFA,VENTOLI hours as N HFA) 90 needed for mcg/actuati wheezing. on inhaler ALPRAZolam 2017-0 Yes 1mg [id number] Take 1 mg [facility] (XANAX) 1 4-03 [id number] mouth [address] MG tablet 18:48: 3D (three) Hospi ta 08 times a l day as needed for anxiety. citalopram Yes 20mg QD Take 20 mg M ethodi (CeleXA) 20 4-[address] MG tablet 18:48: every Hospita 08 morning. l diclofenac- 2018-0 Yes 1{tbl} Q.5D Take 1 Me thodi misoprostol 4-[address] (ARTHROTEC 18:48: mouth 2 Hosp antonio 75) 75-200 08 (two) l mg-mcg EC times a tablet day as needed (arthritis pain). ferrous 2017-0 Yes 1{tbl} QD Take 1 Method i fumarate-fo 4-[address] lic acid 18:48: mouth Hospita (HEMATINIC/ 08 nightly. l FOLIC ACID) 324 mg (106 mg iron)-1 mg tablet per tablet rivaroxaban Yes 20mg QD Take 20 mg [facility] (XARELTO) 4-[address] 20 mg 18:48: nightly. Hospita tablet 08 l zolpidem Yes 10mg QD Take 10 mg Met hodi (AMBIEN) 10 4-[address] mg tablet 18:48: nightly as Ho spita 08 needed for l sleep. metoprolol 0 Yes 50mg Q.5D Take 50 mg M ethodi tartrate 4-[address] (LOPRESSOR) 18:48: (two) Hospi ta 50 mg 08 times a l tablet day. fluocinonid 2017-0 Yes 1{appli Q.5D Apply 1 Methodi e 0.1 % 3-15 cation} applicatio st cream 00:00: n Hospita 00 topically l 2 (two) times a day. (apply sparingly) LYRICA 75 Yes 75mg Q.5D Take 75 mg Me thodi mg capsule 3-[address] 00:00: (two) Hospita 00 times a l day. enoxaparin 2017- Yes Inject 0.8 M ethodi (LOVENOX) 2-[address] 120 mg/0.8 00:00: subcutanou H ospita mL syringe 00 sharon twice l daily. Take after stopping xarelto 2 days prior to surgery. Hold the night before surgery. contreras Yes 1{puff} QD Inhale 1 Methodi m-vilantero 2-[address] l (ANORO 00:00: for 30 Hospita ELLIPTA) 00 days. l 62.5-25 mcg/actuati on blister with device valsartan-h 2019- No [facility] ydrochlorot -16 - [facility] - hiazide 00:00: 00:00 Medical (DIOVAN-HCT 00 :00 [facility] ) 320-25 mg per tablet HEMATINIC/F Yes [facility] OLIC ACID 09-16 [facility]ukes - 324 mg (106 00:00: Medica l mg iron)- 00 [place] mg Tab citalopram 2015-[address] (CELEXA) 20 2- [facility] - MG tablet 00:00: Medical 00 [place] furosemide 2015-09- No [facility] (LASIX) 20 2- 10-12 [facility] - MG tablet 00:00: 00:00 Medical 00 :00 [place] levothyroxi 2015-09- No [facility] ne 2-11 22- [facility] - (SYNTHROID, 00:00: 00:00 Medic al LEVOTHROID) 00 :00 [facility] 150 MCG tablet metoprolol 2015-09- No [facility] (LOPRESSOR) 2-11 22- [facility] - 50 MG 00:00: 00:00 Medical tablet 00 :00 [place] potassium 2015-09- No [facility] citrate 2-11 22- [facility] - (UROCIT-K) 00:00: 00:00 Medica l 10 mEq 00 :00 [facility] (1,080 mg) SR tablet zolpidem 2015-[address] (AMBIEN) 10 2- [facility] - mg tablet 00:00: Medical 00 [place] acetazolami acetazolami No acetazolam [facility] de 250 mg de 250 mg vesna [...] n nebulizati on albuterol albuterol No albuterol [facility] sulfate HFA sulfate HFA sulfate Family 90 90 HFA 90 Practic mcg/actuati mcg/actuati mcg/actuat e on aerosol on aerosol ion inhaler inhaler aerosol inhaler allopurinol allopurinol allopurino [facility] 100 mg 100 mg l 100 mg Family tablet TAKE tablet TAKE tablet Practic 1 TABLET BY 1 TABLET BY TAKE 1 e MOUTH EVERY MOUTH EVERY TABLET BY DAY DAY MOUTH EVERY DAY alprazolam alprazolam No alprazolam [facility] 1 mg tablet 1 mg tablet 1 mg F amily TAKE 1 TAKE 1 tablet Practic TABLET BY TABLET BY TAKE 1 e MOUTH 3 MOUTH 3 TABLET BY TIMES A DAY TIMES A DAY MOUTH 3 NEEDED NEEDED TIMES A FOR OTHER ( FOR OTHER ( DAY ANXIETY) ANXIETY) NEEDED FOR OTHER ( ANXIETY) amoxicillin amoxicillin No amoxicilli [facility] [phone] Family mg-potassiu mg-potassiu mg-potassi Practic m m um e clavulanate clavulanate clavulanat 125 mg 125 mg e 125 mg tablet tablet tablet azithromyci azithromyci azithromyc [facility] n 250 mg n 250 mg in 250 mg Fa lana tablet tablet tablet Practic e benzonatate benzonatate benzonatat [facility] 200 mg 200 mg e 200 mg Family capsule capsule capsule Practi c e Breo Breo No Breo [facility] Ellipta 200 Ellipta 200 Ellipta Family mcg-25 mcg-25 200 mcg-25 Pract ic mcg/dose mcg/dose mcg/dose e powder for powder for powder for inhalation inhalation inhalation citalopram citalopram citalopram [facility] 20 mg 20 mg 20 mg Family tablet tablet tablet Practic e clobetasol clobetasol clobetasol [facility] 0.05 % 0.05 % 0.05 % [facility] topical topical topical Practi c ointment ointment ointment e cyclobenzap cyclobenzap cyclobenza [facility] rine 7.5 mg rine 7.5 mg [...] by oral route. fluconazole fluconazole No fluconazol [facility] 150 mg 150 mg e 150 mg Family tablet tablet tablet Practic e furosemide furosemide No furosemide [facility] 20 mg 20 mg 20 mg Family tablet 20 tablet 20 tablet 20 Practic mg by oral mg by oral mg by oral e route. route. route. gabapentin gabapentin No gabapentin [facility] 300 mg 300 mg 300 mg [...] by oral route. hydrocodone hydrocodone No hydrocodon [facility] 10 10 e 10 Family mg-acetamin [...] PAIN (SCALE 7-10). levothyroxi levothyroxi No levothyrox [facility] ne 100 mcg ne 100 mcg ine 100 Family tablet TAKE tablet TAKE mcg tablet Practic 2 TABLETS 2 TABLETS TAKE 2 e BY MOUTH BY MOUTH TABLETS BY EVERY DAY EVERY DAY MOUTH BEFORE A BEFORE A EVERY DAY MEAL MEAL BEFORE A MEAL levothyroxi levothyroxi No levothyrox [facility] ne 175 mcg ne 175 mcg ine 175 Family tablet TAKE tablet TAKE mcg tablet Practic 1 TABLET BY 1 TABLET BY TAKE 1 e MOUTH EVERY MOUTH EVERY TABLET BY DAY IN THE DAY IN THE MOUTH MORNING MORNING EVERY DAY IN THE MORNING levothyroxi levothyroxi No 1 Q1D levothyrox [facility] ne 75 mcg ne 75 mcg ine 75 mcg Family tablet Take tablet Take tablet Practic 1 tablet 1 tablet Take 1 e every day every day tablet by oral by oral every day route. route. by oral route. metformin metformin No metformin [facility] 500 mg 500 mg 500 mg Family tablet tablet tablet Practic e methylpredn methylpredn No methylpred [facility] isolone 4 isolone 4 nisolone 4 Family mg tablets mg tablets mg tablets Practic in a dose in a dose in a dose e pack pack pack metoprolol metoprolol No metoprolol [facility] succinate succinate succinate Family ER 50 mg ER 50 mg ER 50 mg Pra ctic tablet,exte tablet,exte tablet,ext e nded nded ended release 24 release 24 release 24 hr 50 mg hr 50 mg hr 50 mg by oral by oral by oral route. route. route. minocycline minocycline No minocyclin [facility] 100 mg 100 mg e 100 mg Family capsule capsule capsule Practi c TAKE 1 TAKE 1 TAKE 1 e CAPSULE BY CAPSULE BY CAPSULE BY MOUTH TWICE MOUTH TWICE MOUTH A DAY A DAY TWICE A DAY potassium potassium No potassium [facility] citrate ER citrate ER citrate ER Family 10 mEq 10 mEq 10 mEq Practic (1,080 mg) (1,080 mg) (1,080 mg) e tablet,exte tablet,exte tablet,ext nded nded ended release release release prednisone prednisone No prednisone [facility] 10 mg 10 mg 10 mg Family tablet tablet tablet Practic e pregabalin pregabalin No pregabalin [facility] 150 mg 150 mg 150 mg Family capsule capsule capsule Practi c e ProAir ProAir No ProAir [facility] RespiClick RespiClick RespiClick [facility] 90 90 90 Practic mcg/actuati mcg/actuati mcg/actuat e on breath on breath ion breath activated activated activated sulfamethox sulfamethox No sulfametho [facility] azole 800 azole 800 xazole 800 Family mg-trimetho mg-trimetho mg-trimeth Practic prim 160 mg prim 160 mg oprim 160 e tablet TAKE tablet TAKE mg tablet 1 TABLET BY 1 TABLET BY TAKE 1 MOUTH EVERY MOUTH EVERY TABLET BY DAY DAY MOUTH EVERY DAY tizanidine tizanidine No 1capsul Q6H tizanidine [facility] 4 mg 4 mg e(s) 4 mg Family capsule capsule capsule Practi c Take 1 Take 1 Take 1 e capsule capsule capsule every 6 every 6 every 6 hours by hours by hours by oral route. oral route. oral route. triamcindereje triamcinolo No triamcinol [facility] ne ne one Family acetonide acetonide acetonide Practic 0.147 0.147 0.147 e mg/gram mg/gram mg/gram topical topical topical aerosol aerosol aerosol valsartan valsartan No 1 [facility] 320 320 320 Family mg-hydrochl mg-hydrochl mg-hydroch Practic orothiazide orothiazide lorothiazi e 12.5 mg 12.5 mg de 12.5 mg tablet Take tablet Take tablet 1 tablet 1 tablet Take 1 every day every day tablet by oral by oral every day route. route. by oral route. [facility] Family mg-hydrochl mg-hydrochl mg-hydroch Practic orothiazide orothiazide lorothiazi e 25 mg 25 mg de 25 mg tablet TAKE tablet TAKE tablet 1 TABLET BY 1 TABLET BY TAKE 1 MOUTH EVERY MOUTH EVERY TABLET BY DAY DAY MOUTH EVERY DAY Wixela Wixela No Wixela [facility] In[facility] 250 Inhub 250 Inhub 250 [...] DAY zolpidem 10 zolpidem 10 No zolpidem [facility] mg tablet mg tablet 10 mg Fami ly 10 mg by 10 mg by tablet 10 P ractic oral route. oral route. mg by oral e route. Immunizations Ordered Immunization Filled Immunization Date Status Commen ts Source Name Name influenza, influenza, 2019-06-15 Completed [facility] injectable, injectable, 00:00:00 Practice quadrivalent quadrivalent Vital Signs Vital Name Observation Time Observation Value Comments Source Height 2020-10-09 00:00:00 68 [in_i] [facility] BMI (Body Mass Index) 2020-10-09 00:00:00 39.4 kg/m2 [facility] Body Weight 2020-10-09 00:00:00 259 [lb_av] [facility] Height 2020-06-12 00:00:00 68 [in_i] [facility] Practice Height 2020-05-24 00:00:00 68 [in_i] [facility] Practice Height 2020-03-08 00:00:00 68 [in_i] [facility] Practice BMI (Body Mass Index) 2020-03-08 00:00:00 35 kg/m2 [facility] Practice Body Weight 2020-03-08 00:00:00 230 [lb_av] [facility] Systolic blood 2020-06-26 16:12:00 132 mm[Hg] [facility] Diastolic blood 2020-06-26 16:12:00 68 mm[Hg] [facility] Heart rate 2020-06-26 16:12:00 103 /min [facility] Body temperature 2020-06-26 16:12:[address] [facility] Respiratory rate 2020-06-26 16:12:00 18 /min [facility] Oxygen saturation in 2020-06-26 16:12:00 96 /min [facility] Arterial blood by Medical Ce nter Pulse oximetry Body height 2020-06-17 16:00:00 175.3 cm [facility] Body weight 2020-06-17 16:00:00 139.708 kg [facility] BMI 2020-06-17 16:00:00 45.48 kg/m2 [facility] Procedures Procedure Date / Time Performing Clinician Source Performed POCT-GLUCOSE METER 2020-06-26 16:17:00 Luke Claire [facility] POCT-GLUCOSE METER 2020-06-26 12:37:00 Luke Claire [facility] POCT-GLUCOSE METER 2020-06-26 08:33:00 Luke Claire [facility] CBC W/PLT COUNT & AUTO 2020-06-26 04:16:00 Luke Claire [facility] BASIC METABOLIC PANEL (7) 2020-06-26 04:16:00 Luke Claire [facility] POCT-GLUCOSE METER 2020-06-25 20:45:00 [facility]SE [facility]ER 2020-06-25 16:22:00 Dakotah [facility] POCT-GLUCOSE METER 2020-06-25 12:02:00 Dakotah [facility] POCT-GLUCOSE METER 2020-06-25 07:53:00 Dakotah [facility] POCT-GLUCOSE METER 2020-06-25 05:55:00 Dakotah [facility] CBC W/PLT COUNT & AUTO 2020-06-25 03:33:00 Dakotah [facility] POCT-GLUCOSE METER 2020-06-25 00:28:00 Dakotah [facility] POCT-GLUCOSE METER 2020-06-24 17:55:00 Dakotah [facility] POCT-GLUCOSE METER 2020-06-24 11:54:00 Dakotah [facility] POCT-GLUCOSE METER 2020-06-24 08:36:00 Dakotah [facility] CBC W/PLT COUNT & AUTO 2020-06-24 04:38:00 Dakotah [facility] POCT-GLUCOSE METER 2020-06-23 21:15:00 Dakotah [facility] POCT-GLUCOSE METER 2020-06-23 11:07:00 Dakotah [facility] [place] FLUORO NON-SPECIFIC UP 2020-06-23 08:12:00 [facility] - [address] CLOSED REDUCTION,SHOULDER 2020-06-23 07:34:[address] [facility] POCT-GLUCOSE METER 2020-06-23 05:28:00 Dakotah [facility] POCT-GLUCOSE METER 2020-06-22 22:16:00 Dakotah [facility] ECG 12-LEAD 2020-06-22 21:21:[address] [facility] HEMOGLOBIN AND HEMATOCRIT 2020-06-22 17:41:00 Dakotah [facility] POCT-GLUCOSE METER 2020-06-22 11:30:00 Dakotah [facility] POCT-GLUCOSE METER 2020-06-22 06:46:00 [facility] CBC W/PLT COUNT & AUTO 2020-06-22 04:41:00 [facility] BASIC METABOLIC PANEL (7) 2020-06-22 04:41:00 [facility] LACTIC ACID, VENOUS 2020-06-22 04:41:00 [facility] POCT-GLUCOSE METER 2020-06-22 00:01:00 [facility] TRANSFUSION SERVICE 2020-06-21 18:01:23 Shanon Hawthorne [facility] REPORT - SCAN [facility] POCT-GLUCOSE METER 2020-06-21 15:24:00 [facility] POCT-GLUCOSE METER 2020-06-21 12:28:00 [facility] CBC (HEMOGRAM ONLY) 2020-06-21 10:43:00 Alen Morejon [facility] POCT-GLUCOSE METER 2020-06-21 09:45:00 [facility] [place] FLUORO NON-SPECIFIC UP 2020-06-21 08:50:00 [facility] - TO 1 HOUR [facility] ORIF,FEMUR 2020-06-21 07:17:00 [place] [facility] PROCEDURE W/ C-ARM 2020-06-21 07:17:00 [place] [facility] PREPARE LEUKO-REDUCED RBC 2020-06-20 23:54:00 Sivakumar, Scot C [facility] POCT-GLUCOSE METER 2020-06-20 23:34:[address] [facility] POCT-GLUCOSE METER 2020-06-20 18:39:[address] [facility] TRANSFUSION SERVICE 2020-06-20 18:21:03 ProviderShanon [facility] REPORT - SCAN Scanning [facility] XR PELVIS 1 OR 2 VIEWS 2020-06-20 18:13:00 [facility] XR ELBOW 3 VIEWS MIN LEFT 2020-06-20 17:26:[address] [facility] XR SHOULDER 1 VIEW LEFT 2020-06-20 17:26:00 Herve Zee [facility] NM MYOCARD IMAGING MULTI 2020-06-20 15:41:00 Elizabeth Butler CH I [facility] - PHARM PLANAR [facility] POCT-GLUCOSE METER 2020-06-20 12:20:[address] [facility] POCT-GLUCOSE METER 2020-06-20 06:07:[address] [facility] COMPREHENSIVE METABOLIC 2020-06-20 04:32:00 Herve Zee [facility] VITAMIN B12 AND FOLATE 2020-06-20 04:32:00 Ana Leonardo [facility] CALCIUM, IONIZED 2020-06-20 04:32:00 Herve Zee [facility] PHOSPHORUS 2020-06-20 04:32:00 Herve Zee [facility] MAGNESIUM 2020-06-20 04:32:00 Herve Zee [facility] CBC W/PLT COUNT & AUTO 2020-06-20 04:32:00 Herve Zee CH, I [facility] POCT-GLUCOSE METER 2020-06-19 21:05:[address] [facility] TRANSFUSE LEUKO-REDUCED 2020-06-19 20:26:24 Scot Shaver [facility] - RED BLOOD CELLS [facility] TRANSFUSION SERVICE 2020-06-19 18:00:37 Provider, Shanon [facility] - REPORT - SCAN [facility] POCT-GLUCOSE METER 2020-06-19 13:05:[address] [facility] TREADMILL 2020-06-19 09:45:13 Unknown, Hl7 Doctor [facility] - TOLERANCE(NON-NUCLEAR Medical Ce nter TREADMILL) ECG 12-LEAD 2020-06-19 09:41:18 Unknown, Hl7 Doctor [facility] ECG 12-LEAD 2020-06-19 09:24:29 Unknown, 7 [facility] POCT-GLUCOSE METER 2020-06-19 05:47:[address] [facility] SARS-COV2/RT-PCR ([facility] & 2020-06-19 05:13:00 Alyce Donnelly [facility] - REF LABS) [facility] CALCIUM, IONIZED 2020-06-19 03:54:00 Herve Zee [facility] CBC W/PLT COUNT & AUTO 2020-06-19 03:54:00 Herve Zee CH I [facility] COMPREHENSIVE METABOLIC 2020-06-19 03:53:00 Herve Zee [facility] PHOSPHORUS 2020-06-19 03:53:00 Herve Zee [facility] MAGNESIUM 2020-06-19 03:53:00 Herve Zee [facility] ABORH, MANUAL 2020-06-18 22:08:[address] [facility] POCT-GLUCOSE METER 2020-06-18 21:34:00 [facility], 2020-06-18 17:02:00 Scot Shaver [facility] Lori es - AUTOMATED [facility] POCT-GLUCOSE METER 2020-06-18 15:58:[address] [facility] POCT-GLUCOSE METER 2020-06-18 11:07:00 [facility] 2020-06-18 09:31:00 Saadia [facility] POCT-GLUCOSE METER 2020-06-18 07:58:00 [facility] 2020-06-18 05:44:00 [facility], [facility]ON[facility]ED 2020-06-18 05:44:00 Herve Zee [facility] PHOSPHORUS 2020-06-18 05:44:00 Saadia [facility] CBC W/PLT COUNT & AUTO 2020-06-18 05:44:00 Herve Zee [facility] MAGNESIUM 2020-06-18 05:44:00 Saadia [facility] HEMOGLOBIN A1C 2020-06-18 05:44:00 [facility] T4 IF INDICATED 2020-06-18 05:44:00 Saadia [facility] COMPREHENSIVE METABOLIC 2020-06-18 05:44:00 Herve Zee [facility] B-TYPE NATRIURETIC FACTOR 2020-06-18 05:44:00 [facility] T4, FREE 2020-06-18 05:44:00 [facility] W/ DOPPLER 2020-06-17 22:02:40 [facility] (CW[facility]PW[facility] POCT-GLUCOSE METER 2020-06-17 21:40:00 Sa[facility]ia [facility] CBC W/PLT COUNT & AUTO 2020-06-17 21:07:00 Herve Zee [facility] COMPREHENSIVE METABOLIC 2020-06-17 21:07:[address] [facility] ECG 12-LEAD 2020-06-17 20:01:[address] [facility] Leg [facility] Procedure [facility] Percutaneous Extraction [facility] with Practice Fragmentation Procedure Plan of Care Planned Activity Planned Date Details Comments Source Future Scheduled 2028-10-21 DTAP/TDAP/TD VACCINES [facility]00 (2 - Td) [code = [facility] DTAP/TDAP/TD VACCINES (2 - Td)] Future Scheduled 2021-05-[address] [facility] 00:00:00 (Season Ended) [code = Medic al Center INFLUENZA VACCINE (Season Ended)] Future Scheduled 2020-12-[address] [facility] 00:[facility]00 measurement Medical Center (procedure) [code = 08946050] Future Scheduled 2020-09-[address] [facility] 00:00:00 WELLNESS (YEAR 2 or Medical Center FIRST YEAR if no IPPE) [code = MEDICARE ANNUAL WELLNESS (YEAR 2 or FIRST YEAR if no IPPE)] Future Scheduled 2020-09-[address] [facility] 00:00:00 (12+) [code = Medical Center DEPRESSION SCREENING (12+)] Future Scheduled 2006 SHINGLES VACCINES ([address] [facility] Test 00:00:00 of 2) [code = SHINGLES Medic al Center VACCINES (1 of 2)] Future Scheduled [address] [facility]00 (procedure) [code = Medical Center 85787183] Future Scheduled [address] [facility] 00:[facility]:00 malignant neoplasm of Medica l Center cervix (procedure) [code = 090882802] Future Scheduled 1974 HEPATITIS C SCREENING [facility]:00 [code = HEPATITIS C Medical Center SCREENING] Future Scheduled 1968 COVID-19 VACCINE (1) [facility] 00:00:00 [code = COVID-[address] VACCINE (1)] Future Scheduled 1966 DIABETIC EYE EXAM [facility] 00:00:00 [code = DIABETIC EYE Medical Center EXAM] Future Scheduled [address] [facility] 00:[facility]:00 examination Medical Center (regime/therapy) [code = 938251454] Future Scheduled 1966 Urine screening for [facility] 00:00:00 protein (procedure) Medical Center [code = 132580258] Future Scheduled [address] [facility] Test 00:00:00 0-64 YRS (1 of 1 - Medical C enter PPSV23) [code = PNEUMOCOCCAL VACCINE 0-64 YRS (1 of 1 - PPSV23)] Future Scheduled [address] [facility] 00:00:00 malignant [facility] of [facility] breast (procedure) [code = 453028412] Future Scheduled [address] [facility] 00:00:00 malignant neoplasm of [facility] colon (procedure) [code = 666968685] Future Scheduled COVID-19 [facility]ACCINE (1) [facility] [code = COVID-19 VACCINE (1)] Future Scheduled [facility] Test malignant neoplasm of cervix (procedure) [code = 578660634] Future Scheduled BREAST CANCER [facility] Test SCREENING [code = BREAST CANCER SCREENING] Future Scheduled [facility] [code = COLONOSCOPY SCREENING] Future Scheduled SHINGLES VACCINES (#1) [facility] [code = SHINGLES VACCINES (#1)] Future Scheduled [facility]INE [facility] [code = INFLUENZA VACCINE] Encounters Start End Encounter Admission Attending Care Care Encounter Source Date/Time Date/Time Type Type Clinicians Facility Department ID 2021-04-24 2021-04-24 Telephone [facility] [id number] 00:00:00 00:00:00 [employer] [id number] [place] 4.2.7.2.686 Professio [phone] [address] One 2021-04-22 2021-04-22 Telephone [facility] [id number] 00:00:00 00:00:00 [place] [employer] [id number] [place] 4.2.7.2.686 Professio [phone] [place] [address] [address] 2021-04-17 2021-04-17 [facility] [id number] 00:00:00 00:00:00 [facility] [id number] [place] 4.2.7.2.686 Professio [phone] [place] [address] [address] 2021-04-16 2021-04-16 [facility]ill [facility] [id number] 00:00:00 00:00:00 [facility] [id number] [place] 4.2.7.2.686 Professio [phone] [place] [address] [address] 2021-04-11 2021-04-11 Refkathrin [facility] [id number] 00:00:00 00:00:00 [facility] [id number] [place] 4.2.7.2.686 Professio [phone] [place] [address] [address] One 2021-04-04 2021-04-04 Telephone [facility] [id number] 00:00:00 00:00:00 [facility] 350.1.13.10 [place] 4.2.7.2.686 Professio [phone] [place] [address] [address] One 2021-04-02 2021-04-02 Transition [facility] [id number] 00:00:00 00:00:00 of Care Carlyle [facility] 350.1.13.10 HOSPITAL [phone] [id number] 2021-03-17 2021-03-17 Orders Doctor OMA [id number] 00:00:00 00:00:00 Only Unassigned, KEVIN 350.1.13.10 [place] [facility] 4.2.7.2.686 [phone] [id number] 2021-03-14 2021-03-14 Orders Doctor ERNANDEZ [id number] 00:00:00 00:00:00 Only Unassigned, KEVIN 350.1.13.10 [place] [facility] 4.2.7.2.686 [phone] [id number] 2020-10-09 2020-10-09 [facility] [place] - [id number] V illage 00:00:00 00:00:00 IliaAlexey [facility] aGllo kong, TILE DECORATOR: Medical - Practi c [address] CUBA_HOU_V@H_ e [facility], [place] [address], [place] [phone] , Ph. 2020-06-12 2020-06-12 [facility] [place] - [id number] V illage 00:00:00 00:00:00 [facility] erika kong, TILE DECORATOR: Medical - Practi c [address] CUBA_HOU_V@H_ e [facility], [place] [address], [place] [phone] , Ph. 2020-05-24 2020-05-24 [facility] [place] - [id number] V illage 00:00:00 00:00:00 [facility] erika kong, TILE DECORATOR: Medical - Practi c [address] BEREKET_HOU_V@H_ e [facility], [place] [address], [place] [address] , Ph. 2020-03-08 2020-03-08 [facility] [place] - [id number] V illage 00:00:00 00:00:00 [facility] erika kong, TILE DECORATOR: Medical - Practi c [address] BEREKET_HOU_V@H_ e [facility], [place] [address], [place] [address] , Ph. Results Test Description Test Time Test Comments Results Result Comments Source POC-Glucose meter 2020-06-26 16:29:00 Test Item Value Reference Range Interpretation Comme [facility] POC-Glucose Meter (test code = 119 mg/dL 70-110 H : TESTED AT [facility] [address] [facility] 1538) [place] [address] 30: Button Maker/Techni alton ID = [id number] for Yamila Loyola Lab Interpretation (test code = Abnormal 47588-3) [facility] [id number] 16:29:00 Test Item Value Reference Range Interpretation Comments POC-GLUCOSE METER 119 mg/dL 70-110 H : TESTED A T [facility] 6720 (BEAKER) (test code = [facility], 1538) [address]: Button Maker/Techni alton ID = [id number] for Marleen Smith POCT-GLUCOSE [id number] 12:48:00 Test Item Value Reference Range Interpretation Comments POC-GLUCOSE METER 188 mg/dL 70-110 H : TESTED A T [facility] 6720 (BEAKER) (test code = [facility], 1538) [address]: Button Maker/Techni alton ID = [id number] for Marleen Smith POCT-GLUCOSE [id number] 08:45:00 Test Item Value Reference Range Interpretation Comments POC-GLUCOSE METER 154 mg/dL 70-110 H : TESTED A T [facility] 6720 (BEAKER) (test code = [facility], 1538) [address]: Button Maker/Techni alton ID = [id number] for Marleen Smith Basic Metabolic [id number] 05:37:00 Test Item Value Reference Range Interpretation Comments Sodium (test code = 140 meq/L 583-094 9406-2) Potassium (test code = 4.3 meq/L 3.5-5.1 2823-3) Chloride (test code = 101 meq/L 98-107 2075-0) CO2 (test code = 33 meq/L 22-29 H 2028-9) BUN (test code = 16 mg/dL 7-21 3094-0) Creatinine (test code 0.73 mg/dL 0.57-1.25 = 2160-0) Glucose (test code = 113 mg/dL 70-105 H 2345-7) Calcium (test code = 8.4 mg/dL 8.4-10.2 99775-7) EGFR (test code = 81 mL/min/1.73 [place] [address]-7) NOT ACCURATE CREATININE CLEARANCE IN PREDICTING GLOMERULAR FILTRATION RATE . ESTIMATED GFR I S NOT APPLICABLE FOR DIALYSIS PATIENTS. TEX (test code = TEX) Button Maker ID - [id number] Mittal Lab Interpretation Abnormal (test code = 37466-2) [facility] METABOLIC [id number] 05:37:00 Test Item Value Reference Range Interpretation [...] S NOT APPLICABLE FOR DIALYSIS PATIEN TS. Button Maker ID - [id number] MCBC with platelet count + automated [id number] 05:22:00 Test Item Value Reference Range Interpretation Comments WBC (test code = 6690-2) 9.8 See_Comment [A utomated message] The system Bahu generated this result transmitted ref erence range: 3.5 - 10 .5 K/L. The refe rence range was not u sed to interpret this result as normal/abnor mal. RBC (test code = 789-8) 2.66 See_Comment L [Au tomated message] The system Bahu generated this result transmitted ref erence range: 3.93 - 5 .22 M/L. The refe rence range was not u sed to interpret this result as normal/abnor mal. MCHC (test code = 786-4) 29.9 See_Comment L [A utomated message] The system Bahu generated this result transmitted ref erence range: [...] See_Comment [Aut omated message] 777-3) The system Bahu generated this result transmitted ref erence range: 150 - 45 0 K/CU MM. The referen ce range was not u sed to interpret this result as normal/abnor mal. MPV (test code = 9.4 fL 9.4-12.3 09791-1) nRBC (test code = 413) 1 See_Comment H [Aut omated message] The system Bahu generated this result transmitted ref erence range: [...] H [Aut omated message] 670) The system Bahu generated this result transmitted ref erence range: 1.56 - 6 .13 K/L. The refe rence range was not u sed to interpret this result as normal/abnor mal. # Lymphs (test code = 1.25 See_Comment [Auto mated message] 414) The system Bahu generated this result transmitted ref erence range: 1.18 - 3 .74 K/L. The refe rence range was not u sed to interpret this result as normal/abnor mal. # Monos (test code = 0.71 See_Comment H [Autom ated message] 415) The system Bahu generated this result transmitted ref erence range: 0.24 - 0 .36 K/L. The refe rence range was not u sed to interpret this result as normal/abnor mal. # Eos (test code = 416) 0.47 See_Comment H [Au tomated message] The system Bahu generated this result transmitted ref erence range: 0.04 - 0 .36 K/L. The refe rence range was not u sed to interpret this result as normal/abnor mal. # Baso (test code = 417) 0.05 See_Comment [A utomated message] The system Bahu generated this result transmitted ref erence range: 0.01 - 0 .08 K/L. The refe rence range was not u sed to interpret this result as normal/abnor mal. Immature 4 % 0-1 H Granulocytes-Relative (test code = 2801) Lab Interpretation (test Abnormal code = 25830-8) [facility] W/PLT COUNT & AUTO [id number] 05:22:00 Test Item Value Reference Range Interpretation [...] PERCENT (BEAKER) (test code = 2801) POCT-GLUCOSE [id number] 20:57:00 Test Item Value Reference Range Interpretation Comments POC-GLUCOSE METER 136 mg/dL 70-110 H : TESTED A T [facility] 6720 (BEAKER) (test code = [facility], 153) [address]: Button Maker/Techni alton ID = [id number] for AN NOR, TIFFANIE POCT-GLUCOSE [id number] 16:49:00 Test Item Value Reference Range Interpretation Comments POC-GLUCOSE METER 104 mg/dL 70-110 : TESTED A T [facility] 6720 (BEAKER) (test code = [facility], 1538) [address]: Button Maker/Techni alton ID = [id number] for RA MOS, ALEKSEY POCT-GLUCOSE [id number] 12:14:00 Test Item Value Reference Range Interpretation Comments POC-GLUCOSE METER 142 mg/dL 70-110 H : TESTED A T [facility] 6720 (BEAKER) (test code = [facility], 1538) [address]: Button Maker/Techni alton ID = [id number] for RA MOS, ALEKSEY POCT-GLUCOSE [id number] 08:04:00 Test Item Value Reference Range Interpretation Comments POC-GLUCOSE METER 152 mg/dL 70-110 H : TESTED A T [facility] 6720 (BEAKER) (test code = [facility], 1538) [address]: Button Maker/Techni alton ID = [id number] for RA MOS, ALEKSEY POCT-GLUCOSE [id number] 06:06:00 Test Item Value Reference Range Interpretation Comments POC-GLUCOSE METER 115 mg/dL 70-110 H : TESTED A T [facility] 6720 (BEAKER) (test code = RONNY Munoz [facility], 1538) [address]: Button Maker/Techni alton ID = [id number] for SA RICKEY DOMINIQUE CBC W/PLT COUNT & AUTO [id number] 04:19:00 Test Item Value Reference Range Interpretation [...] ABSOLUTE COUNT 7.14 K/ L 1.56-6.13 H ([facility] (test code = 670) LYMPHOCYTES ABSOLUTE COUNT 1.48 K/ L 1.18-3.74 ([facility] (test code = 414) MONOCYTES ABSOLUTE COUNT (BEAKER) 0.95 K/ L 0.24-0.36 H (test code = 415) EOSINOPHILS ABSOLUTE COUNT 0.68 K/ L 0.04-0.36 H ([facility] (test code = 416) BASOPHILS ABSOLUTE COUNT ([facility] 0.08 K/ L 0.01-0.08 (test code = 417) IMMATURE GRANULOCYTES-RELATIVE 4 % 0-1 H PERCENT ([facility] (test code = 2801) POCT-GLUCOSE [id number] 00:40:00 Test Item Value Reference Range Interpretation Comments POC-GLUCOSE METER 120 mg/dL 70-110 H : Notified RN/MD: ([facility] (test code = TESTED AT [place] [address]) [facility], [address]: Button Maker/Techni alton ID = [id number] for SA NCHEZ, RICKEY POCT-GLUCOSE [id number] 18:10:00 Test Item Value Reference Range Interpretation Comments POC-GLUCOSE METER 166 mg/dL 70-110 H : [facility] (test code = [facility], 153) [address]: Button Maker/Techni alton ID = [id number] for RA MOS, ALEKSEY POCT-GLUCOSE [id number] 12:06:00 Test Item Value Reference Range Interpretation Comments POC-GLUCOSE METER 157 mg/dL 70-110 H : [facility] (test code = [facility], 153) [address]: Button Maker/Techni alton ID = [id number] for RA MOS, ALEKSEY POCT-GLUCOSE [id number] 08:51:00 Test Item Value Reference Range Interpretation Comments POC-GLUCOSE METER 168 mg/dL 70-110 H : [facility] (test code = [facility], 153) [address]: Button Maker/Techni alton ID = [id number] for RA MOS, ALEKSEY CBC W/PLT COUNT & AUTO [id number] 05:10:00 Test Item Value Reference Range Interpretation [...] PERCENT (BEAKER) (test code = 2801) POCT-GLUCOSE [id number] 01:33:00 Test Item Value Reference Range Interpretation Comments POC-GLUCOSE METER 107 mg/dL 70-110 : TESTED A T [facility] 6720 (BEAKER) (test code = RONNY Munoz [place], 1538) [address]: Button Maker/Techni alton ID = [id number] for TIFFANIE HARDING POCT-GLUCOSE [id number] 11:19:00 Test Item Value Reference Range Interpretation Comments POC-GLUCOSE METER 155 mg/dL 70-110 H : TESTED A T [facility] 6720 (BEAKER) (test code = [facility], 1538) [address]: Button Maker/Techni alton ID = [id number] for [place] FL, FLUORO, NON-SPECIFIC, UP TO 1 [id number] 08:27:37Reason for exam:- >Dislocated left shoulder (OR 18)Fluoroscopic unit utilized for a procedure performed in the OR. No interpretation was requested. Refer to the operative report for findings. Refer to PACS for patient radiation dose information.FL fluoro non-specific up to 1 [id number] 08:12:00Interface, External Ris In - 06/23/2020 1:22 PM CDTFluoroscopic unit utilized for a procedure performed in the OR. No interpretation was requested. Refer to the operative report for findings. Referto PACS for patient radiation dose information.[facility] [id number] 06:36:51Interface, External Ris In - 06/23/2020 6:36 AM CDTVentricular Rate 99 BPMAtrial Rate 99 BPMP-R Interval 148 msQRS Duration 86 msQ-T Interval 350 msQTC Calculation(Bazett) 449 msP [place] 39 degreesR [place] -2 degreesT [place] 112 degreesNormal sinus rhythmMinimal voltage criteria for LVH, may be normal variantAbnormal QRS-T angle, consider primary T wave abnormalityAbnormal ECGWhen compared with ECG of 17-JUN-2020 20:01,No significant change was foundConfirmed by MD BINH, SUPA Fields ([id number]) on :36:50 [facility] HospitalPOCT-[facility]UCOSE [id number] 05:40:00 Test Item Value Reference Range Interpretation Comments POC-GLUCOSE METER 145 mg/dL 70-110 H : TESTED A T [facility] 6720 (BEAKER) (test code = [facility]ON[facility] Mun[facility], 1538) [address]: Button Maker/Techni alton ID = [id number] for AN NOR, TIFFANIE POCT-GLUCOSE [id number] 23:05:00 Test Item Value Reference Range Interpretation Comments POC-GLUCOSE METER 128 mg/dL 70-110 H : TESTED A T [facility] 6720 (BEAKER) (test code = [facility] Tammy [facility], 1538) [address]: Button Maker/Techni alton ID = [id number] for AN NOR, TIFFANIE Hemoglobin and [id number] 17:48:00 Test Item Value Reference Range Interpretation [...] = 4544-3) TEX (test code = TEX) Button Maker ID - [id number] Lab Interpretation Abnormal (test code = 09233-4) [facility]MO[facility] AND [id number] 17:48:00 Test Item Value Reference Range Interpretation Comments HEMOGLOBIN (BEAKER) (test code = 7.7 GM/DL 11.2-15.7 L 410) HEMATOCRIT (BEAKER) (test code = 26.4 % 34.1-44.9 L 411) Button Maker ID - [id number]-GLUCOSE [id number] 11:44:00 Test Item Value Reference Range Interpretation Comments POC-GLUCOSE METER 116 mg/dL 70-110 H : TESTED A T [facility] 6720 (BEAKER) (test code = [facility]ON[facility] Munoz [facility], 1538) [address]: Button Maker/Techni alton ID = [id number] for Wi lliams, Areiona BASIC METABOLIC [id number] 07:08:00 Test Item Value Reference Range Interpretation [...] S NOT APPLICABLE FOR DIALYSIS PATIEN TS. Button Maker ID - KASIA MPOCT-GLUCOSE [id number] 07:02:00 Test Item Value Reference Range Interpretation Comments POC-GLUCOSE METER 112 mg/dL 70-110 H : TESTED A T [facility] 6720 (BEAKER) (test code = RONNY Munoz [facility], 1538) [address]: Button Maker/Techni alton ID = [id number] for ERIC MATTHEWS ELIAN CBC W/PLT COUNT & AUTO [id number] 06:24:00 Test Item Value Reference Range Interpretation Comments WHITE BLOOD CELL COUNT 11.7 K/ L 3.5-10.5 H (BEAKER) (test code = 775) RED BLOOD CELL COUNT 2.51 M/ L 3.93-5.22 L (BEAKER) (test code = 761) HEMOGLOBIN (BEAKER) 7.7 GM/DL 11.2-15.7 L Patient had (test code = 410) surgery th e day before [id number] HEMATOCRIT (BEAKER) 26.5 % 34.1-44.9 L (test [...] (BEAKER) (test code = 2801) Lactic acid, [id number] 06:09:00 Test Item Value Reference Range Interpretation Comments Lactate, Venous (test code 0.95 mmol/L 0.5-2.2 = 2872) TEX (test code = TEX) Button Maker SWEETIE PEDROZA M Lab Interpretation (test Normal code = 77973-9) [facility]CT[facility], [id number] 06:09:00 Test Item Value Reference Range Interpretation Comments LACTATE BLOOD VENOUS (2) (BEAKER) 0.95 mmol/L 0.50-2.20 (test code = 2872) Button Maker SWEETIE PEDROZA MPOCT-GLUCOSE [id number] 00:13:00 Test Item Value Reference Range Interpretation Comments POC-GLUCOSE METER 114 mg/dL 70-110 H : TESTED A T [facility] 6720 (BEAKER) (test code = RONNY Munoz [facility], 1538) [address]: Button Maker/Techni alton ID = [id number] for ELIAN ZENG POCT-GLUCOSE [id number] 15:36:00 Test Item Value Reference Range Interpretation Comments POC-GLUCOSE METER 153 mg/dL 70-110 H : TESTED A T [facility] 6720 (BEGPMESS) (test code = RONNY Munoz [facility], 1538) [address]: Button Maker/Techni alton ID = [id number] for [place] Treadmill tolerance(Non-Nuclear Treadmill)2020-06-21 14:44:14Interface, [...] by Real Magallon (52) on 06/21/2020 2:44:06 [facility]WS, LEFT 2020-06-21 [...] no acute fracture, or dislocation. There is tvew-jg-zwxanphz osteoarthritis, as well as mild enthesopathy at [...] Rubio Verified Date/Time: 06/21/2020 13:36:41 Reading Location: [facility] Radiology Reading Room Electr onically signed by: JENNIFER RUBIO M.D. on 06/21/2020 01:36 PMRAD, SHOULDER, 1 VIEW, [id number] 13:36:00Reason for exam:->left shouler painFINAL REPORT Radiograph [...] no acute fracture, or dislocation. There is ooqq-mn-jalurndz osteoarthritis, as well as mild enthesopathy at [...] Rubio Verified Date/Time: 06/21/2020 13:36:41 Reading Location: [facility] Radiology Reading Room RAD, PELVIS, 1 OR 2 [id number] 13:36:00Single viewReason for exam:- >femur fxShould this [...] no acute fracture, or dislocation. There is pcei-sr-dwrzglmk osteoarthritis, as well as mild enthesopathy at [...] Rubio Verified Date/Time: 06/21/2020 13:36:41 Reading Location: [facility] Radiology Reading Room XR pelvis 1 or 2 [id number] 13:36:00Interface, External Ris In - 06/21/2020 1:38 [...] demonstrates no acute fracture, or dislocation. There sdpivf-jh-wiuaeupn osteoarthritis, as well as mild enthesopathy at [...] Rubio Verified Date/Time: 06/21/2020 13:36:41 Reading Location: [facility] Radiology Reading Room [facility] elbow 3 views min [id number] 13:36:00Interface, External Ris In - 06/21/2020 1:38 [...] no acute fracture, or dislocation. There is epgi-rd-ywgoyxfx osteoarthritis, as well as mild enthesopathy at [...] Rubioeport Verified Date/Time: 06/21/2020 13:36:41 Reading Location: [facility] Radiology Reading Room [facility] 1 view left 2020-06-21 [...] demonstrates no acute fracture, or dislocation. There dqynnj-ym-fmyhkxlu osteoarthritis, as well as mild enthesopathy at [...] MDReport Verified Date/Time: 06/21/2020 13:36:41 Reading Location: [facility] Radiology Reading [facility] [id number] 12:40:00 Test Item Value Reference Range Interpretation Comments POC-GLUCOSE METER 189 mg/dL 70-110 H : TESTED A T [facility] 6720 (BEAKER) (test code = RONNY Munoz [place], 1538) [address]: Button Maker/Techni alton ID = [id number] for PRINCESS ED CBC (Hemogram only)2020-06-21 11:17:00 Test Item Value Reference Range Interpretation Comments WBC (test code = 6690-2) 27.9 See_Comment H [A utomated message] The system Bahu generated this result transmitted ref erence range: 3.5 - 10 .5 K/L. The refe rence range was not u sed to interpret this result as normal/abnor mal. RBC (test code = 789-8) 3.37 See_Comment L [Au tomated message] The system Bahu generated this result transmitted ref erence range: 3.93 - 5 .22 M/L. The refe rence range was not u sed to interpret this result as normal/abnor mal. MCHC (test code = 786-4) 30.4 See_Comment L [A utomated message] The system Bahu generated this result transmitted ref erence range: [...] See_Comment [Aut omated message] 777-3) The system Bahu generated this result transmitted ref erence range: 150 - 45 0 K/CU MM. The referen ce range was not u sed to interpret this result as normal/abnor mal. MPV (test code = 9.9 fL 9.4-12.3 45562-8) nRBC (test code = 413) 0 See_Comment [Aut omated message] The system Bahu generated this result transmitted ref erence range: 0 - 0 /1 00 WBC. The refere nce range was not u sed to interpret this result as normal/abnor mal. Lab Interpretation (test Abnormal code = 10979-8) [facility] (HEMOGRAM ONLY)2020-06-21 11:17:00 Test Item Value [...] CELLS (BEAKER) (test code = 413) POCT-GLUCOSE [id number] 09:57:00 Test Item Value Reference Range Interpretation Comments POC-GLUCOSE METER 172 mg/dL 70-110 H : TESTED A T [facility] 6720 (BEAKER) (test code = [facility], 153) 07090: Button Maker/Techni alton ID = [id number] for STEVERDING, JEFE AN FL, FLUORO, NON-SPECIFIC, UP TO 1 [id number] 09:21:38Reason for exam:- >right femur fractureFluoroscopic unit utilized for a procedure performed in the OR. No interpretation was requested. Refer to the operative report for findings. Refer to PACS for patient radiation dose information.Prepare Leuko- Red [id number] 23:54:00 Test Item Value Reference Range Interpretation Comments CROSSMATCH (test code = 2264) COMPATIBLE Unit ABO (test code = B Pos 9786979) UNIT NUMBER (test code = [id number] 934-0) Status (test code = 0303168) [facility]CT[facility]T Blood Bank Product (test code RED BLOOD CELLS = 2263) PRODUCT CODE (test code = P1690O37 933-2) [facility] [id number] 23:46:00 Test Item Value Reference Range Interpretation Comments POC-GLUCOSE METER 136 mg/dL 70-110 H : TESTED A T [facility] 6720 (BEAKER) (test code = [facility], 153) 90013: Button Maker/Techni alton ID = [id number] for HANS JOSE POCT-GLUCOSE [id number] 18:51:00 Test Item Value Reference Range Interpretation Comments POC-GLUCOSE METER 158 mg/dL 70-110 H : TESTED A T [facility] 6720 (BEAKER) (test code = [facility], 153) 71537: Button Maker/Techni alton ID = [id number] for NEDA STAHL, ALFREDO MYOCARD IMAGING, MULTI, PHARM, [id number] 17:07:00Unlisted Reason for Exam - Click Yes and Enter Reason Below->No Eval for CADFINAL REPORT PROCEDURE: MYOCARDIAL PERFUSION PLANAR IMAGING (2-Day Stress/Rest)CPT CODE: 40905 INDICATION: evaluate for presence of CAD, preoperative [...] MDReport Verified Date/Time: 06/20/2020 17:07:36 Reading Location: [address] Reading Room [place] Myocard imaging multi pharm [id number] 17:07:00Interface, External Ris In - 06/20/2020 5:09 PM CDTFINAL REPORT PROCEDURE: MY OCARDIAL PERFUSION PLANAR IMAGING (2-Day Stress/Rest)CPT CODE: 43777 INDICATION: evaluate for presence of CAD, preoperative [...] MDReport Verified Date/Time: 06/20/2020 17:07:36 Reading Location: [address] [facility] [id number] 12:32:00 Test Item Value Reference Range Interpretation Comments POC-GLUCOSE METER 128 mg/dL 70-110 H : TESTED A T [facility] 6720 (BEAKER) (test code = RON[facility] Munoz [facility], 1538) 689[address]: Button Maker/Techni alton ID = [id number] for PRINCESS ED POCT-GLUCOSE [id number] 06:18:00 Test Item Value Reference Range Interpretation Comments POC-GLUCOSE METER 133 mg/dL 70-110 H : TESTED A T [facility] 6720 (BEAKER) (test code = RON[facility] Mun[facility], 1538) 84605: Button Maker/Techni alton ID = [id number] for TIFFANIE HARDING Vitamin B12 and [id number] 06:10:00 Test Item Value Reference Range Interpretation Comments Vitamin B12 (test 467 pg/mL 213-816 code = 2132-9) Folate (test code = 16.70 ng/mL See_Comment [Automa robbie 2284-8) message] The system which generated this result transmit robbie reference range : >=7.00. The reference range was not used to interpret this result as normal/abnormal . TEX (test code = TEX) Button Maker ID - EDASI Lab Interpretation Normal (test code = 66392-8) [facility] HospitalVITAMIN B12 AND [id number] 06:10:00 Test Item Value Reference Range Interpretation Comments VITAMIN B12 (BEAKER) (test code = 467 pg/mL 213-816 774) FOLATE (BEAKER) (test code = 362) 16.70 ng/mL >=7.00 Button Maker ID - EDASIComprehensive metabolic [id number] 06:01:00 Test Item Value Reference Range Interpretation Comments Protein, Total (test 6.9 See_Comment [Autom ated code = 2885-2) message] The system which generated this result transmit robbie reference range : 6.0 - 8.3 gm/dL . The reference range was not u sed to interpret th is result as normal/abnormal . Albumin (test code = 3.4 g/dL 3.5-5 L 31590-3) Alkaline Phosphatase 49 U/L 40-150 (test code = 6768-6) Total Bilirubin (test 1.1 mg/dL 0.2-1.2 code = 1974-2) Sodium (test code = 142 meq/L 676-156 4041-2) Potassium (test code 4.4 meq/L 3.5-5.1 = 2823-3) Chloride (test code = 101 meq/L 98-107 2075-0) CO2 (test code = 33 meq/L 22-29 H 2028-9) BUN (test code = 28 mg/dL 7-21 H 3094-0) Creatinine (test code 0.81 mg/dL 0.57-1.25 = 2160-0) Glucose (test code = 131 mg/dL 70-105 H 2345-7) Calcium (test code = 9.1 mg/dL 8.4-10.2 53946-5) AST (test code = 15 U/L 5-34 1920-8) ALT (test code = 10 U/L 6-55 1742-6) EGFR (test code = 71 mL/min/1.73 [place] [address]-5) NOT ACCURATE CREATININE CLEARANCE IN PREDICTING GLOMERULAR FILTRATION RATE . ESTIMATED GFR I S NOT APPLICABLE FOR DIALYSIS PATIEN TS. TEX (test code = TEX) Button Maker ID - EDASI Lab Interpretation Abnormal (test code = 60797-0) [facility] HospitalMagnesium2020-10-[facility] 06:01:00 Test Item Value Reference Range Interpretation Comments Magnesium (test code = 1.7 mg/dL 1.6-2.6 73080-3) TEX (test code = TEX) Button Maker ID - EDASI Lab Interpretation (test Normal code = 33193-2) [facility]osphorus2020-[facility] 06:01:00 Test Item Value Reference Range Interpretation Comments Phosphorus (test code = 2.4 mg/dL 2.3-4.7 2777-1) TEX (test code = TEX) Button Maker ID - EDASI Lab Interpretation (test Normal code = 59097-7) [facility]PHOSPHORUS2020-10-06 06:01:00 Test Item Value Reference Range Interpretation Comments PHOSPHORUS (BEAKER) (test code = 2.4 mg/dL 2.3-4.7 604) Button Maker ID - [id number] 06:01:00 Test Item Value Reference Range Interpretation Comments MAGNESIUM (BEAKER) (test code = 1.7 mg/dL 1.6-2.6 627) Button Maker ID - EDASICOMPREHENSIVE METABOLIC [id number] 06:01:00 Test Item Value Reference Range Interpretation [...] S NOT APPLICABLE FOR DIALYSIS PATIEN TS. Button Maker ID - EDASICalcium, [id number] 05:15:00 Test Item Value Reference Range Interpretation Comments Calcium, Ion (test code = 1993-) 1.15 mmol/L 1.12-1.27 pH, Blood (test code = 44219-3) 7.42 [facility] HospitalCALCIUM, [id number] 05:15:00 Test Item Value Reference Range Interpretation Comments CALCIUM IONIZED (BEAKER) (test 1.15 mmol/L 1.12-1.27 code = 698) PH, BLOOD (BEAKER) (test code = 7.42 1810) CBC W/PLT COUNT & AUTO [id number] 05:10:00 Test Item Value Reference Range Interpretation [...] PERCENT (BEAKER) (test code = 2801) POCT-GLUCOSE [id number] 21:18:00 Test Item Value Reference Range Interpretation Comments POC-GLUCOSE METER 105 mg/dL 70-110 : TESTED A T [facility] 6720 (BEAKER) (test code = [facility], 1538) 39133: Button Maker/Techni alton ID = [id number] for AN TIFFANIE FARIA POCT-GLUCOSE [id number] 13:16:00 Test Item Value Reference Range Interpretation Comments POC-GLUCOSE METER 131 mg/dL 70-110 H : TESTED A T [facility] 6720 (BEAKER) (test code = [facility]stor [facility], 1538) 18670: Button Maker/Techni alton ID = [id number] for Wi Ashwin matthews 2D Echo W/Doppler(CW/PW/Color)2020-06-19 12:42:42Ejection FractionSLEH ECHO HEARTLAB MKCKESSON CPACSInterface, External Ris In - 06/19/2020 12:42 PM C DTTransthoracic Echocardiography Report (TTE) Demographics Patient Name LETICIA WADE Date ofStudy 06/17/2020 FIORELLA Gender Female Visit Number [id number] Race Unknown Room Number 1523 Number Date of 1955 Referring Physician HERVE ZEE Age 64 year(s) Physician Liaison Lebron Reyna [employer] Viktor Prater Interpreting Physician SALIMA Damian Procedure [...] TR Velocity: 2.89 m/s TR Gradient: 33.3 mmHgSt. [facility] Hospital SARS-CoV2/RT-PCR (Asymptomatic ONLY)2020-06-19 11:25:00 Test Item Value Reference Range Interpretation Comments SARS-COV2/RT-PCR Negative Not Detected, (test code = Negative, See 25384-7) external report for linked test SARS-COV-2 [facility] PERFORMING LAB (test code = 70268-3) TEX (test code = Negative result for [...] of the Act. Fact Sheet for Healthcare Providers:https://www.[employer]/sites/default/f roselia/product/documents/F act_Sheet_HC_Providers_L lla_XIBJ-FgQ-5.pdf Fact Sheet for Healthcare Patients:https://www.[employer]/sites/default/fi les/product/documents/Fa ct_Sheet_Patients_Lyra_S ARS-CoV-2.pdf Performing Laboratory:[facility], [place] [address] [place], [place] [address]ARS-COV2/RT-PCR ([facility])2020-06-19 11:25:00 Test Item Value Reference Range Interpretation Comments SARS-COV2/RT-PCR (test Negative Not Detected, Negative, code = 6410553) See external report for linked test SARS-COV-2 PERFORMING LAB [facility] (test code = 6261333) Negative result for this test determines that [...] 564(g) of the Act.Fact Sheet for Healthcare Providers:https://www.[employer]/sites/default/files/product/documents/Fact_Shee o_JR_Ryxkiktit_Brlm_NXFD-CnV-9.pdfFact Sheet for Healthcare Patients:https://www.[employer]/sites/default/files/product/ documents/Gsor_Afswo_Fllnqxtj_Qyew_IXUI-AyC-7.pdfPerforming Laboratory:[facility], [place] [address]KHJV-AXPHYIE METER 2020-06-19 05:59:00 Test Item Value Reference Range Interpretation Comments POC-GLUCOSE METER 122 mg/dL 70-110 H : [facility] (test code = RON[facility] Mun[facility], 1538) 47302: Button Maker/Techni alton ID = [id number] for ELIAN ZENG [id number] 04:43:00 Test Item Value Reference Range Interpretation Comments PHOSPHORUS (BEAKER) (test code = 2.9 mg/dL 2.3-4.7 604) Button Maker ID - [id number] 04:43:00 Test Item Value Reference Range Interpretation Comments MAGNESIUM (BEAKER) (test code = 1.9 mg/dL 1.6-2.6 627) Button Maker ID - EDASICOMPREHENSIVE METABOLIC [id number] 04:43:00 Test Item Value Reference Range Interpretation [...] S NOT APPLICABLE FOR DIALYSIS PATIEN TS. Button Maker ID - EDASICBC W/PLT COUNT & AUTO [id number] 04:20:00 Test Item Value Reference Range Interpretation [...] PERCENT (BEAKER) (test code = 2801) CALCIUM, [id number] 04:11:00 Test Item Value Reference Range Interpretation Comments CALCIUM IONIZED (BEAKER) (test 1.16 mmol/L 1.12-1.27 code = 698) PH, BLOOD (BEAKER) (test code = 7.37 1810) hitesh [id number] 01:54:00 Test Item Value Reference Range Interpretation Comments Rh Factor (test code = 2589) POS ABO Grouping (test code = 2588) B [facility] HospitalPOCT-GLUCOSE [id number] 21:49:00 Test Item Value Reference Range Interpretation Comments POC-GLUCOSE METER 113 mg/dL 70-110 H : TESTED A T [facility] 6720 (BEAKER) (test code = [facility], 1538) 13672: Button Maker/Techni alton ID = [id number] for WI CEE, ELIAN Type and screen, [id number] 17:47:00 Test Item Value Reference Range Interpretation Comments ABO/RH AUTOMATED (BEAKER) (test B POSITIVE code = 2260) Ab Scrn (test code = 890-4) NEGATIVE [facility] HospitalPOCT[facility]GLUCOSE [id number] 16:10:00 Test Item Value Reference Range Interpretation Comments POC-GLUCOSE METER 96 mg/dL 70-110 : TESTED A T [facility] 6720 (BEAKER) (test code = [facility], 1538) 37619: Button Maker/Techni alton ID = [id number] for CAMERON PIERCE Hemoglobin [id number] 11:26:00 Test Item Value Reference Range Interpretation Comments Hemoglobin A1C (test code = 4548-4) 5.4 % 4.3-6.1 Lab Interpretation (test code = Normal 17876-9) [facility] HospitalHEMOGLOBIN [id number] 11:26:00 Test Item Value Reference Range Interpretation Comments HEMOGLOBIN A1C (BEAKER) (test code = 5.4 % 4.3-6.1 368) POCT-GLUCOSE [id number] 11:19:00 Test Item Value Reference Range Interpretation Comments POC-GLUCOSE METER 135 mg/dL 70-110 H : TESTED A T [facility] 6720 (BEAKER) (test code = [facility], 1538) 31744: Button Maker/Techni alton ID = [id number] for CAMERON HILL Troponin [id number] 10:05:00 Test Item Value Reference Range Interpretation Comments Troponin I (test code = 0.02 ng/mL 0-0.03 29401-7) TEX (test code = TEX) Troponin I [...] disease, and persistent tachyarrhythmia.Opera tor ID - StoreliftIANG Lab Interpretation (test Normal code = 09697-3) [facility] HospitalTROPONIN [id number] 10:05:00 Test Item Value Reference Range Interpretation [...] failure, acidosis, acute neurological disease, and persistent tachyarrhythmia.Button Maker ID - NUBIAGPOCT-GLUCOSE METER 2020-06-18 08:09:00 Test Item Value Reference Range Interpretation Comments POC-GLUCOSE METER 120 mg/dL 70-110 H : TESTED A T [facility] 6720 (BEAKER) (test code = [facility] [place] [place], 1538) 51611: Button Maker/Techni alton ID = [id number] for CAMERON HILL T4, [id number] 08:07:00 Test Item Value Reference Range Interpretation Comments Free T4 (test code = <0.40 0.7-1.48 L 3024-7) TEX (test code = TEX) Button Maker ID - StoreliftIANG Lab Interpretation (test Abnormal code = 55494-4) [facility] HospitalT4, [id number] 08:07:00 Test Item Value Reference Range Interpretation Comments FREE T4 (BEAKER) (test code = 655) < ng/dL 0.70-1.48 L Button Maker ID - PRICILLASH/Free T4 If [id number] 07:15:00 Test Item Value Reference Range Interpretation Comments TSH (test code = 76.986 See_Comment H [Automated 99045-4) message] The system which generated this result transmit robbie reference range : 0.350 - 4.940 uIU/mL. The reference range was not used to interpret this result as normal/abnormal . TEX (test code = TEX) Button Maker ID - EDASI Lab Interpretation Abnormal (test code = 08515-4) [facility] HospitalTSH/FREE T4 IF [id number] 07:15:00 Test Item Value Reference Range Interpretation Comments THYROID STIMULATING HORMONE 76.986 uIU/mL 0.350-4.940 H (BEAKER) (test code = 772) Button Maker ID - [id number] 07:00:00 Test Item Value Reference Range Interpretation Comments PHOSPHORUS (BEAKER) (test code = 3.5 mg/dL 2.3-4.7 604) Button Maker ID - [id number] 07:00:00 Test Item Value Reference Range Interpretation Comments MAGNESIUM (BEAKER) (test code = 1.9 mg/dL 1.6-2.6 627) Button Maker ID - EDASICOMPREHENSIVE METABOLIC [id number] 07:00:00 Test Item Value Reference Range Interpretation [...] S NOT APPLICABLE FOR DIALYSIS PATIEN TS. Button Maker ID - EDASITROPONIN [id number] 06:52:00 Test Item Value Reference Range Interpretation [...] failure, acidosis, acute neurological disease, and persistent tachyarrhythmia.Button Maker ID - EDASIB-type Natriuretic Factor (BNP)2020-06-18 06:50:00 Test Item Value Reference Range Interpretation Comments BNP (test code = 60484-7) 35 pg/mL 0-100 TEX (test code = TEX) Button Maker ID - EDASI Lab Interpretation (test Normal code = 16690-2) [facility] HospitalB-TYPE NATRIURETIC FACTOR (BNP)2020-06-18 06:50:00 Test Item Value Reference Range Interpretation Comments B-TYPE NATRIURETIC PEPTIDE (BEAKER) 35 pg/mL 0-100 (test code = 700) Button Maker ID - EDASICBC W/PLT COUNT & AUTO [id number] 06:33:00 Test Item Value Reference Range Interpretation [...] PERCENT (BEAKER) (test code = 2801) CALCIUM, [id number] 05:58:00 Test Item Value Reference Range Interpretation Comments CALCIUM IONIZED (BEAKER) (test 1.14 mmol/L 1.12-1.27 code = 698) PH, BLOOD (BEAKER) (test code = 7.36 1810) POCT-GLUCOSE [id number] 21:55:00 Test Item Value Reference Range Interpretation Comments POC-GLUCOSE METER 187 mg/dL 70-110 H : TESTED A T [facility] 6720 (BEAKER) (test code = [facility] [place], 1538) 32811: Button Maker/Techni alton ID = [id number] for ELIAN ZENG COMPREHENSIVE METABOLIC [id number] 21:39:00 Test Item Value Reference Range Interpretation [...] S NOT APPLICABLE FOR DIALYSIS PATIEN TS. Button Maker ID - DBCBC W/PLT COUNT & AUTO [id number] 21:23:00 Test Item Value Reference Range Interpretation [...] code = 2801) STOOL CULTURE + SHIGA [id number] 10:48:00 Test Item Value Reference Range Interpretation Comments CULTURE (BEAKER) No Salmonella, Shigella (test code = 1095) or Campylobacter isolated Unable to test for Shiga Toxin 1 due to insufficient growth of specimen.Unable to test for Shiga Toxin 2 due to insufficient growth of specimen.STOOL PATH [id number] 13:49:00 Test Item Value Reference Range Interpretation Comments PATHOGEN EXAM CHARGED [facility] (test Done code = 2381) POCT-GLUCOSE [id number] 11:36:00 Test Item Value Reference Range Interpretation Comments POC-GLUCOSE METER 106 mg/dL 70-110 TESTED AT [place] [address] ([facility]) (test code = RON[facility] Mun[facility] 1538) [address] POCT-GLUCOSE [id number] 08:21:00 Test Item Value Reference Range Interpretation Comments POC-GLUCOSE METER 110 mg/dL 70-110 TESTED AT [place] [id number] ([facility]) (test code = [facility]ON[facility] Mun[facility] 1538) [address] [id number] 05:17:00 Test Item Value Reference Range Interpretation Comments PHOSPHORUS (BEAKER) (test code = 3.6 mg/dL 2.3-4.7 604) [id number] 05:17:00 Test Item Value Reference Range Interpretation Comments MAGNESIUM (BEAKER) (test code = 1.6 mg/dL 1.6-2.6 627) BASIC METABOLIC [id number] 05:17:00 Test Item Value Reference Range Interpretation [...] PATIEN TS. CBC W/PLT COUNT & AUTO [id number] 05:09:00 Test Item Value Reference Range Interpretation [...] L 0.00-0.20 (test code = 417) 0.00PROTHROMBIN TIME/[id number] 04:57:00 Test Item Value Reference Range Interpretation [...] POC-GLUCOSE METER 100 mg/dL 70-110 TESTED AT [facility] 6720 (BEAKER) (test code = [facility]ON[facility] Mun[facility] [place] 1538) [address] BASIC METABOLIC [id number] 18:30:00 Test Item Value Reference Range Interpretation [...] 358) GLUCOSE RANDOM 157 mg/dL 70-105 H (AKER) (test code = 652) CALCIUM (BEAKER) 9.3 mg/dL 8.4-10.2 (test code = 697) EGFR ([facility] (test 58 mL/min/1.73 ESTIMA ROBBIE GFR IS code = 1092) sq m NOT ACCURATE CREATININE CLEARANCE IN PREDICTING GLOMERULAR FILTRATION RATE . ESTIMATED GFR I S NOT APPLICABLE FOR DIALYSIS PATIEN TS. POCT-GLUCOSE [id number] 15:40:00 Test Item Value Reference Range Interpretation Comments POC-GLUCOSE METER 95 mg/dL 70-110 TESTED AT [place] [address] ([facility] (test code = [facility] [address] 1538) POCT-GLUCOSE [id number] 11:47:00 Test Item Value Reference Range Interpretation Comments POC-GLUCOSE METER 101 mg/dL 70-110 TESTED AT [place] [address] ([facility] (test code = [facility] 1538) [address] POCT-GLUCOSE [id number] 07:32:00 Test Item Value Reference Range Interpretation Comments POC-GLUCOSE METER 88 mg/dL 70-110 TESTED AT [place] [address] ([facility] (test code = [facility] [address] 1538) CBC W/PLT COUNT & AUTO [id number] 07:32:00 Test Item Value Reference Range Interpretation Comments WHITE BLOOD CELL COUNT (AKER) 9.1 K/ L 4.0-10.0 (test code = 775) RED BLOOD CELL COUNT (AKER) 4.02 M/ L 4.00-5.00 (test code = 761) HEMOGLOBIN (BEAKER) (test code = 12.2 GM/DL 12.0-15.0 410) HEMATOCRIT (BEAKER) (test code = 36.3 % 36.0-45.0 411) MEAN CORPUSCULAR VOLUME (AKER) 90.3 fL 82.0-99.0 (test code = 753) [...] 0.00-0.20 (test code = 417) 0.00BASI METABOLIC [id number] 06:23:00 Test Item Value Reference Range Interpretation [...] S NOT APPLICABLE FOR DIALYSIS PATIEN TS. [id number] 06:23:00 Test Item Value Reference Range Interpretation Comments MAGNESIUM (BEAKER) (test code = 1.6 mg/dL 1.6-2.6 627) [id number] 06:23:00 Test Item Value Reference Range Interpretation Comments PHOSPHORUS (BEAKER) (test code = 3.6 mg/dL 2.3-4.7 604) PROTHROMBIN TIME/[id number] 06:15:00 Test Item Value Reference Range Interpretation [...] POC-GLUCOSE METER 108 mg/dL 70-110 TESTED AT [facility] 6720 (BEAKER) (test code = [facility] [place] 1538) [address] BASIC METABOLIC [id number] 18:12:00 Test Item Value Reference Range Interpretation [...] mg/dL 8.4-10.2 (test code = 697) EGFR ([facility] (test 58 mL/min/1.73 ESTIMA ROBBIE GFR IS code = 1092) sq m NOT ACCURATE CREATININE CLEARANCE IN PREDICTING GLOMERULAR FILTRATION RATE . ESTIMATED GFR I S NOT APPLICABLE FOR DIALYSIS PATIEN TS. POCT-GLUCOSE [id number] 17:53:00 Test Item Value Reference Range Interpretation Comments POC-GLUCOSE METER 165 mg/dL 70-110 H TESTED AT [place] [address] ([facility] (test code = [facility] 1538) [address] PROTHROMBIN [id number] 13:53:00 Test Item Value Reference Range Interpretation Comments PROTIME ([facility] (test code = 14.7 seconds 11.7-14.7 759) INR ([facility] (test code = 370) 1.2 <=5.9 RECOMMENDED COUMADIN/WARFARIN INR THERAPY RANGESSTANDARD DOSE: 2.0 - 3.0 Includes: PROPHYLAXIS forvenous thrombosis, systemic embolization; TREATMENT for venous thrombosis and/or pulmonary embolus.HIGH RISK: Target INR is 2.5-3.5 for patients with mechanical heart valves.POCT-GLUCOSE [id number] 11:49:00 Test Item Value Reference Range Interpretation Comments POC-GLUCOSE METER 120 mg/dL 70-110 H TESTED AT [place] [address] ([facility] (test code = [facility] 1538) [address] POCT-GLUCOSE [id number] 07:58:00 Test Item Value Reference Range Interpretation Comments POC-GLUCOSE METER 94 mg/dL 70-110 TESTED AT [place] [address] ([facility] (test code = [facility] [address] 1538) [id number] 07:23:00 Test Item Value Reference Range Interpretation Comments PHOSPHORUS ([facility] (test code = 3.6 mg/dL 2.3-4.7 604) [id number] 07:23:00 Test Item Value Reference Range Interpretation Comments MAGNESIUM ([facility] (test code = 1.8 mg/dL 1.6-2.6 627) BASIC METABOLIC [id number] 07:23:00 Test Item Value Reference Range Interpretation Comments SODIUM ([facility] 136 meq/L 136-145 (test code = 381) [...] PATIEN TS. CBC W/PLT COUNT & AUTO [id number] 07:15:00 Test Item Value Reference Range Interpretation [...] L 0.00-0.20 (test code = 417) 0.00POCT-GLUCOSE [id number] 20:44:00 Test Item Value Reference Range Interpretation Comments POC-GLUCOSE METER 164 mg/dL 70-110 H TESTED AT [facility] 6720 (BEAKER) (test code = [facility] 1538) [address] BASIC METABOLIC [id number] 19:53:00 Test Item Value Reference Range Interpretation [...] NOT APPLICABLE FOR DIALYSIS PATIEN TS. POCT-GLUCOSE [id number] 17:25:00 Test Item Value Reference Range Interpretation Comments POC-GLUCOSE METER 97 mg/dL 70-110 TESTED AT [place] [address] ([facility] (test code = [facility] Tammy [facility] [id number] 1538) CLOSTRIDIUM DIFFICILE TOXIN [id number] 15:24:00 Test Item Value Reference Range Interpretation Comments CLOSTRIDIUM DIFFICILE TOXIN, PCR Not Detected Not Detected ([facility] (test code = 1525) This qualitative real-time [...] of a positive result is not recommended.POCT-GLUCOSE [id number] 12:30:00 Test Item Value Reference Range Interpretation Comments POC-GLUCOSE METER 110 mg/dL 70-110 TESTED AT [place] [address] ([facility] (test code = [facility] 1538) [id number] POCT-GLUCOSE [id number] 07:56:00 Test Item Value Reference Range Interpretation Comments POC-GLUCOSE METER 94 mg/dL 70-110 TESTED AT [place] [address] ([facility] (test code = [facility] [address] 1538) HEMOGLOBIN [id number] 07:48:00 Test Item Value Reference Range Interpretation Comments HEMOGLOBIN A1C ([facility] (test code = 5.4 % 4.3-6.1 368) CBC W/PLT COUNT & AUTO [id number] 06:42:00 Test Item Value Reference Range Interpretation [...] K/ L 0.00-0.20 (test code = 417) [id number] 06:06:00 Test Item Value Reference Range Interpretation Comments PHOSPHORUS (BEAKER) (test code = 3.7 mg/dL 2.3-4.7 604) [id number] 06:06:00 Test Item Value Reference Range Interpretation Comments MAGNESIUM (BEAKER) (test code = 1.4 mg/dL 1.6-2.6 L 627) BASIC METABOLIC [id number] 06:06:00 Test Item Value Reference Range Interpretation [...] NOT APPLICABLE FOR DIALYSIS PATIEN TS. POCT-GLUCOSE [id number] 21:04:00 Test Item Value Reference Range Interpretation Comments POC-GLUCOSE METER 100 mg/dL 70-110 TESTED AT [facility] 6720 (BEAKER) (test code = RONNY STARK [place] 1538) [address] BASIC METABOLIC [id number] 20:03:00 Test Item Value Reference Range Interpretation [...] NOT APPLICABLE FOR DIALYSIS PATIEN TS. POCT-GLUCOSE [id number] 15:45:00 Test Item Value Reference Range Interpretation Comments POC-GLUCOSE METER 130 mg/dL 70-110 H TESTED AT [facility] 6720 [facility] (test code = RONNY Munoz [facility] 1538) [address] POCT-GLUCOSE [id number] 11:20:00 Test Item Value Reference Range Interpretation Comments POC-GLUCOSE METER 102 mg/dL 70-110 TESTED AT [facility] 6720 ([facility] (test code = [facility] Tammy [facility] 1538) [id number] HEMOGLOBIN [id number] 08:50:00 Test Item Value Reference Range Interpretation Comments HEMOGLOBIN A1C (BEAKER) (test code = 5.6 % 4.3-6.1 368) [id number] 05:44:00 Test Item Value Reference Range Interpretation Comments PHOSPHORUS (BEAKER) (test code = 3.4 mg/dL 2.3-4.7 604) [id number] 05:44:00 Test Item Value Reference Range Interpretation Comments MAGNESIUM (BEAKER) (test code = 1.7 mg/dL 1.6-2.6 627) BASIC METABOLIC [id number] 05:44:00 Test Item Value Reference Range Interpretation [...] PATIEN TS. CBC W/PLT COUNT & AUTO [id number] 05:39:00 Test Item Value Reference Range Interpretation [...] L 0.00-0.20 (test code = 417) 0.00POCT-GLUCOSE [id number] 23:15:00 Test Item Value Reference Range Interpretation Comments POC-GLUCOSE METER 83 mg/dL 70-110 TESTED AT [place] [address] ([facility] (test code = [facility] [address] 1538) POCT-GLUCOSE [id number] 17:19:00 Test Item Value Reference Range Interpretation Comments POC-GLUCOSE METER 82 mg/dL 70-110 TESTED AT [place] [address] ([facility] (test code = [facility] [address] 1538) POCT-GLUCOSE [id number] 12:57:00 Test Item Value Reference Range Interpretation Comments POC-GLUCOSE METER 124 mg/dL 70-110 H TESTED AT [place] [address] ([facility] (test code = [facility] 1538) [id number] HEMOGLOBIN [id number] 10:12:00 Test Item Value Reference Range Interpretation Comments HEMOGLOBIN A1C ([facility] (test code = 5.6 % 4.3-6.1 368) CBC W/PLT COUNT & AUTO [id number] 06:14:00 Test Item Value Reference Range Interpretation Comments WHITE BLOOD CELL COUNT (BEAKER) 12.1 K/ L 4.0-10.0 H (test code = 775) RED BLOOD CELL COUNT (BEAKER) 4.29 M/ L 4.00-5.00 (test code = 761) HEMOGLOBIN (BEAKER) (test code = 12.5 GM/DL 12.0-15.0 410) HEMATOCRIT ([facility] (test code = 38.8 % 36.0-45.0 411) MEAN CORPUSCULAR VOLUME (AKER) 90.4 fL 82.0-99.0 (test code = 753) [...] K/ L 0.00-0.20 (test code = 417) [id number] 05:43:00 Test Item Value Reference Range Interpretation Comments PHOSPHORUS (BEAKER) (test code = 4.1 mg/dL 2.3-4.7 604) [id number] 05:43:00 Test Item Value Reference Range Interpretation Comments MAGNESIUM (BEAKER) (test code = 1.9 mg/dL 1.6-2.6 627) BASIC METABOLIC [id number] 05:43:00 Test Item Value Reference Range Interpretation [...] NOT APPLICABLE FOR DIALYSIS PATIEN TS. POCT-GLUCOSE [id number] 05:12:00 Test Item Value Reference Range Interpretation Comments POC-GLUCOSE METER 89 mg/dL 70-110 TESTED AT [place] [address] ([facility] (test code = [facility] [address] 1538) POCT-GLUCOSE [id number] 00:07:00 Test Item Value Reference Range Interpretation Comments POC-GLUCOSE METER 92 mg/dL 70-110 TESTED AT [place] [address] ([facility] (test code = [facility] [address] 1538) [id number] 23:51:00 Test Item Value Reference Range Interpretation [...] is 2.5-3.5 for patients with mechanical heart valves.[id number] 23:49:00 Test Item Value Reference Range Interpretation Comments MAGNESIUM (BEAKER) 1.9 mg/dL 1.6-2.6 Specimen slightly (test code = 627) hemolyzed [id number] 23:49:00 Test Item Value Reference Range Interpretation Comments PHOSPHORUS (BEAKER) 3.4 mg/dL 2.3-4.7 Specimen slightly (test code = 604) hemolyzed BASIC METABOLIC [id number] 23:49:00 Test Item Value Reference Range Interpretation [...] PATIEN TS. CBC W/PLT COUNT & AUTO [id number] 23:38:00 Test Item Value Reference Range Interpretation [...] 0.00-0.20 (test code = 417) 0.00URINALYSIS W/ [id number] 22:57:00 Test Item Value Reference Range Interpretation [...] 520) MUCUS (BEAKER) (test code = Rare 5396) SOURCE(BEAKER) (test code = Urine, Perez 0613)
[2021-04-25 14:24] LABS: Absolute Lymphocytes (CBC) 0.6 K/uL (0.7-4.9); Basophils % 0.7 % (0-1.3); Hematocrit 37.9 % (36.0-45.0); Lymphocytes % 4.2 % (15.3-44.8); MPV 7.1 fL (7.6-11.3)
[2021-04-25 14:39] LABS: Albumin 3.1 g/dL (3.4-5.0); Bilirubin Direct 0.2 mg/dL (0-0.2); Bilirubin Total 0.4 mg/dL (0.2-1.0); Potassium 4.2 mmol/L (3.5-5.1); Protein, Total 8.1 g/dL (6.4-8.2)
--- NOTE | 2021-04-25 15:31 | RAD REPORT ---
EXAM DESCRIPTION: CT - Abdomen Pelvis W Contrast - 04/25/2021 3:17 pm CLINICAL HISTORY: Abdominal pain/right flank COMPARISON: 2018 TECHNIQUE: Computed axial tomography of the abdomen pelvis was obtained. 100 cc Isovue-300 was admin istered intravenously. Oral contrast was not requested which limits evaluation of bowel. All CT scans are performed using dose optimization technique as appropriate and may include automated exposure control or mA/KV adjustment according to patient size. FINDINGS: Bilateral renal calculi. Renal cortical thinning probably related to prior inflammation. S mall renal cysts. Mild right hydronephrosis. Right ureter is dilated. 2 millimeter calculus distal ri ght ureter. Liver has a nodular contour. Mild splenomegaly The pancreas and adrenals unremarkable. Small duodenal diverticulum. Filter within the IVC. Gallbladder is distended with increased density. Mild chronic compression deformity L4 vertebral body There is no evidence of diverticulitis. Postsurgical changes of a sigmoidectomy. Moderate amount of s tool within the colon. Rectum is mildly distended with stool. IMPRESSION: 2 millimeter calculus distal right ureter. Mild right hydronephrosis Gallbladder distention. Increased density within the gallbladder may indicate stones. Nodular hepatic contour probably cirrhosis. Mild splenomegaly
--- NOTE | 2021-04-25 15:55 | RAD REPORT ---
EXAM DESCRIPTION: Jason Single View04/25/2021 2:56 pm CLINICAL HISTORY: sob COMPARISON: November 2020 FINDINGS: Haziness overlying the right hemithorax is unchanged Mild left lung opacities. Heart lies mostly within the right chest unchanged from prior exams IMPRESSION: Haziness overlying the right hemithorax is unchanged. This likely represents a combinati on of pneumonitis superimposed over pulmonary fibrosis Mild left basilar opacities also probably mild pneumonitis superimposed over pulmonary fibrosis
[2021-04-25] MEDS ORDERED: METHYLPREDNISOLONE 125 MG INJ ONE (16:36)
[2021-04-25] MEDS ORDERED: MAGNESIUM SULFATE 1 gm IVPB 1 GM/100 ML BAG IV ONE (16:36)
[2021-04-25] MEDS ORDERED: ALBUTEROL 2.5 MG/3 ML NEB SOL ONE (16:36)
[2021-04-25] MEDS ORDERED: IPRATROPIUM BROM 0.5MG/2.5ML ONE (16:36)
[2021-04-25] MEDS ORDERED: TAMSULOSIN 0.4 MG SR CAP ONE (16:36)
[2021-04-25] MEDS ORDERED: CEFTRIAXONE/SWI 1gm 1 GM/10 ML SYR ONE (16:37)
[2021-04-25] MEDS ORDERED: NA CHLORIDE 0.9% 50 ML ONE (16:37)
[2021-04-25 17:11] LABS: Urine Blood 2+ (Negative); Urine Glucose Negative (Negative); Urine Protein 1+ (Negative); Urine Specific Gravity 1.015 (1.005-1.030)
[2021-04-25 17:25] LABS: Urine RBC 20-50 /HPF (NONE SEEN)
[2021-04-25 17:26] LABS: Urine Bacteria 20-50 /HPF (<20)
--- NOTE | 2021-04-25 17:29 | ER ---
Nurse's Notes [facility] Name: Rosio Jain Age: 65 yrs Sex: Female : 1955 Arrival Date: 04/25/2021 Time: 13: Bed 8 Private MD: Diagnosis: UTI/ Urinary tract infection, site not specified;Calculus of kidney with calculus of ureter Presentation: 04/25 13:31 Chief complaint: EMS states: Right flank pain that began today around 1100. Pt was aa5 given total of 75mcg of Fentanyl IVP, 20G L hand. 13:31 Onset of symptoms was April 25, 2021. aa5 13:31 Acuity: DYAN 3 aa5 : Method Of Arrival: EMS: [facility] aa5 15:43 Coronavirus screen: At this time, the client does not indicate any symptoms associated jd3 with coronavirus-19. Ebola Screen: Patient negative for fever greater than or equal to 101.5 degrees Fahrenheit, and additional compatible Ebola Virus Disease symptoms. Initial Sepsis Screen: Does the patient meet any 2 criteria? No. Patient's initial sepsis screen is negative. Does the patient have a suspected source of infection? No. Patient's initial sepsis screen is negative. Risk Assessment: Do you want to hurt yourself or someone else? Patient reports no desire to harm self or others. Historical: - Allergies: : NKA; aa5 - PMHx: : ADD/ADHD; Anxiety; Asthma; COPD; Diabetes - NIDDM; Hypertension; Hypothyroidism; PE; aa5 - Immunization history:: Adult Immunizations up to date. - Social history:: Smoking status: unknown. Screenin:42 Abuse screen: Denies threats or abuse. Nutritional screening: No deficits noted. jd3 Tuberculosis screening: No symptoms or risk factors identified. Fall Risk Ambulatory Aid- None/Bed Rest/Nurse Assist (0 pts). Gait- Normal/Bed Rest/Wheelchair (0 pts) Mental Status- Oriented to own ability (0 pts). Total Torres Fall Scale indicates No Risk (0-24 pts). Assessment: 14:00 General: Appears in no apparent distress. comfortable, Behavior is calm, cooperative, jd3 appropriate for age. Pain: Complains of pain in right flank Quality of pain is described as aching. Neuro: Level of Consciousness is awake, alert, obeys commands, Oriented to person, place, time, situation. Cardiovascular: Denies chest pain, Capillary refill < 3 seconds Patient's skin is warm and dry. Respiratory: Airway is patent Respiratory effort is even, unlabored, Respiratory pattern is regular, symmetrical, Denies cough, shortness of breath. GI: No signs and/or symptoms were reported involving the gastrointestinal system. : No signs and/or symptoms were reported regarding the genitourinary system. EENT: No signs and/or symptoms were reported regarding the EENT system. Derm: Skin is intact, Skin is dry, Skin is normal, Skin temperature is warm. Musculoskeletal: Circulation, motion, and sensation intact. Range of motion: intact in all extremities. 15:31 Reassessment: Patient appears in no apparent distress at this time. No changes from [facility] previously documented assessment. Patient and/or family updated on plan of care and expected duration. Pain level reassessed. Patient is alert, oriented x 3, equal unlabored respirations, skin warm/dry/pink. 17:14 Reassessment: Patient appears in no apparent distress at this time. No changes from j previously documented assessment. Patient and/or family updated on plan of care and expected duration. Pain level reassessed. Patient is alert, oriented x 3, equal unlabored respirations, skin warm/dry/pink. 18:55 Reassessment: Patient appears in no apparent distress at this time. Patient and/or jd3 family updated on plan of care and expected duration. Pain level reassessed. Patient is alert, oriented x 3, equal unlabored respirations, skin warm/dry/pink. report given to EMS for ride home. Patient states feeling better. Vital Signs: 14:15 BP 121 / 73 RA Supine (auto/reg); Pulse 69 MON; Resp 20; Temp 98.6; Pulse Ox 86% on em1 R/A; Weight 132 kg; Height 5 ft. 9 in. (175.26 cm); Pain 6/10; 14:18 Pulse Ox 93% on 2 lpm NC; em1 15:31 BP 127 / 67; Pulse 71; Resp 17 S; Pulse Ox 100% on R/A; jd3 17:13 BP 110 / 72; Pulse 65; Resp 19 S; Pulse Ox 100% on R/A; jd3 18:55 BP 116 / 66; Pulse 73; Resp 17 S; Pulse Ox 95% on 2 lpm NC; jd3 14:15 Body Mass Index 42.97 (132.00 kg, 175.26 cm) em1 ED Course: 13:31 Patient arrived in ED. zb 13:31 Arm band placed on. aa5 13:50 Triage completed. aa5 13:51 Danielle Garcia FNP-C [facility]. kb 13:51 Ben Contreras MD is Attending Physician. kb 13:53 Rene Mo RN is Primary Nurse. jd3 14:00 No provider procedures requiring assistance completed. Maintain EMS IV. Dressing jd3 intact. Good blood return noted. Site clean \T\ dry. Gauge \T\ site: 20 G left hand. 14:56 Chest Single View XRAY In Process Unspecified. EDMS 15:18 CT Abd/Pelvis - IV Contrast Only In Process Unspecified. EDMS 15:43 Patient has correct armband on for positive identification. Placed in gown. Bed in low jd3 position. Call light in reach. Side rails up X2. Pulse ox on. NIBP on. 18:55 IV discontinued, intact, bleeding controlled, No redness/swelling at site. Pressure jd3 dressing applied. Administered Medications: 17:12 Drug: Flomax (tamsulosin) 0.4 mg Route: PO; jd3 18:00 Follow up: Response: No adverse reaction jd3 17:13 Drug: DuoNeb (albuterol 2.5 mg, ipratropium 0.5 mg) (3:1) (2.5 mg - 0.5 mg) 3 ml Route: jd3 Nebulizer; 18:00 Follow up: Response: No adverse reaction jd3 17:13 Drug: SOLU-Medrol (methylPrednisoLONE) 125 mg Route: IVP; Site: left hand; jd3 18:00 Follow up: Response: No adverse reaction jd3 17:13 Drug: Rocephin (cefTRIAXone) 1 grams Route: IV; Rate: calculated rate; Site: left hand; jd3 18:00 Follow up: Response: No adverse reaction; IV Status: Completed infusion jd3 17:13 Drug: Magnesium Sulfate 1 grams Route: IVPB; Infused Over: 30 mins; Site: left hand; jd3 18:00 Follow up: Response: No adverse reaction; IV Status: Completed infusion jd3 Outcome: 17:29 Discharge ordered by MD. rodrigez 18:54 Discharged to home via ambulance. jd3 18:54 Condition: stable 18:54 Discharge instructions given to patient, Instructed on discharge instructions, follow up and referral plans. medication usage, Demonstrated understanding of instructions, follow-up care, medications, Prescriptions given X 2. 18:55 Patient left the ED. jd3 Signatures: Dispatcher [employer] EDMS Danielle Garcia FNP-C FNP-Mateo Johnson em1 Fani Estrada, RN RN aa5 Rene Mo RN RN Leilani Ring RN RN zb Corrections: (The following items were deleted from the chart) 13:50 13:31 Chief complaint: EMS states: Right flank pain that began today around 1100. aa5 aa5 14:27 14:15 BP 121 / 73 Supine Auto R Arm Regular; Pulse 69bpm; MonitorResp 20bpm; Pulse Ox em1 86% RA; em1
--- NOTE | 2021-04-25 17:29 | EDPHYS ---
Physician Documentation [facility] Name: Rosio Jain Age: 65 yrs Sex: Female : 1955 Arrival Date: 04/25/2021 Time: 13:31 Bed 8 Private MD: ED Physician Ben Contreras HPI: 04/25 17:07 This 65 yrs old Female presents to ER via EMS with complaints of Flank Pain. kb 17:00 The patient has not experienced similar symptoms in the past. The patient has not kb recently seen a physician. Pt reports right flank pain that started today. States she has a history of kidney stones and thinks that could be the problem. States she took a couple of pain pills that didn't seem to help. When her home health nurse came for her normal visit she said her BP and O2 was low. . 17:07 The patient complains of pain in the right flank. The pain does not radiate. Onset: The kb symptoms/episode began/occurred today. Modifying factors: The symptoms are alleviated by nothing. the symptoms are aggravated by nothing. Associated signs and symptoms: The patient has no apparent associated signs or symptoms. Severity of pain: At its worst the pain was moderate in the emergency department the pain is unchanged. Historical: - Allergies: 13:31 NKA; aa5 - PMHx: 13:31 ADD/ADHD; Anxiety; Asthma; COPD; Diabetes - NIDDM; Hypertension; Hypothyroidism; PE; aa5 - Immunization history:: Adult Immunizations up to date. - Social history:: Smoking status: unknown. ROS: 16:59 Constitutional: Negative for fever, chills, and weight loss. kb 16:59 : Positive for flank pain, of the right flank. 16:59 All other systems are negative. Exam: 16:59 Constitutional: This is a well developed, well nourished patient who is awake, alert, kb and in no acute distress. Head/Face: Normocephalic, atraumatic. ENT: Moist Mucous membranes Cardiovascular: Regular rate and rhythm with a normal S1 and S2. No gallops, murmurs, or rubs. No pulse deficits. Respiratory: Respirations even and unlabored. No increased work of breathing, no retractions or nasal flaring. Abdomen/GI: Soft, non-tender. No distention Skin: Warm, dry with normal turgor. Normal color. MS/ Extremity: Pulses equal, no cyanosis. Neurovascular intact. Full, normal range of motion. Neuro: Awake and alert, GCS 15, oriented to person, place, time, and situation. Moves all extremities. Normal gait. 16:59 Back: pain, that is mild, that is moderate, of the right flank, CVA tenderness, that is moderate, is noted on the right. Vital Signs: 14:15 BP 121 / 73 RA Supine (auto/reg); Pulse 69 MON; Resp 20; Temp 98.6; Pulse Ox 86% on em1 R/A; Weight 132 kg; Height 5 ft. 9 in. (175.26 cm); Pain 6/10; 14:18 Pulse Ox 93% on 2 lpm NC; em1 15:31 BP 127 / 67; Pulse 71; Resp 17 S; Pulse Ox 100% on R/A; jd3 17:13 BP 110 / 72; Pulse 65; Resp 19 S; Pulse Ox 100% on R/A; jd3 18:55 BP 116 / 66; Pulse 73; Resp 17 S; Pulse Ox 95% on 2 lpm NC; jd3 14:15 Body Mass Index 42.97 (132.00 kg, 175.26 cm) em1 MDM: 13:51 Patient medically screened. kb 16:58 Data reviewed: vital signs, nurses notes. Data interpreted: Pulse oximetry: on 3L(s) kb per nasal canula, home o2 is 97 %. Interpretation: normal. Counseling: I had a detailed discussion with the patient and/or guardian regarding: the historical points, exam findings, and any diagnostic results supporting the discharge/admit diagnosis, lab results, radiology results, the need for outpatient follow up, a family practitioner, to return to the emergency department if symptoms worsen or persist or if there are any questions or concerns that arise at home. ED course: Pt normally uses 3L O2 at home. O2 sat 97% on 3L. No resp distress. . 04/25 14:01 Order name: Basic Metabolic Panel; Complete Time: 14:43 kb 04/25 14:01 Order name: CBC with Diff; Complete Time: 14:58 kb 04/25 14:01 Order name: Hepatic Function; Complete Time: 14:43 kb 04/25 14:01 Order name: Lipase; Complete Time: 14:43 kb 04/25 17:11 Order name: Urine Dipstick-Ancillary; Complete Time: 17:18 EDMA 04/25 14:01 Order name: Chest Single View XRAY; Complete Time: 16:03 kb 04/25 14:01 Order name: CT Abd/Pelvis - IV Contrast Only; Complete Time: 15:41 kb 04/25 17:12 Order name: Urine Microscopic Only; Complete Time: 17:28 bd 04/25 17:27 Order name: Urine Culture EDMA 04/25 18:16 Order name: SARS-COV-2 RT PCR EDMA 04/25 14:01 Order name: IV Saline Lock; Complete Time: 14:31 kb 04/25 14:01 Order name: Labs collected and sent; Complete Time: 14:31 kb 04/25 15:41 Order name: Urine Dipstick-Ancillary (obtain specimen); Complete Time: 17:13 kb Administered Medications: 17:12 Drug: Flomax (tamsulosin) 0.4 mg Route: PO; jd3 18:00 Follow up: Response: No adverse reaction jd3 17:13 Drug: DuoNeb (albuterol 2.5 mg, ipratropium 0.5 mg) (3:1) (2.5 mg - 0.5 mg) 3 ml Route: jd3 Nebulizer; 18:00 Follow up: Response: No adverse reaction jd3 17:13 Drug: SOLU-Medrol (methylPrednisoLONE) 125 mg Route: IVP; Site: left hand; jd3 18:00 Follow up: Response: No adverse reaction jd3 17:13 Drug: Rocephin (cefTRIAXone) 1 grams Route: IV; Rate: calculated rate; Site: left hand; jd3 18:00 Follow up: Response: No adverse reaction; IV Status: Completed infusion jd3 17:13 Drug: Magnesium Sulfate 1 grams Route: IVPB; Infused Over: 30 mins; Site: left hand; jd3 18:00 Follow up: Response: No adverse reaction; IV Status: Completed infusion jd3 Disposition: 04/26 07:21 Co-signature as Attending Physician, Ben Contreras MD I agree with the assessment and kdr plan of care. Disposition Summary: 04/25/21 17:29 Discharge Ordered Location: Home kb Condition: Stable kb Diagnosis - UTI/ Urinary tract infection, site not specified kb - Calculus of kidney with calculus of ureter kb Followup: kb - With: Private Physician - When: 2 - 3 days - Reason: Recheck today's complaints, Continuance of care, Re-evaluation by your physician Followup: kb - With: Emergency Department - When: As needed - Reason: Worsening of condition Discharge Instructions: - Discharge Summary Sheet kb - Kidney Stones, [id number] kb - Urinary Tract Infection, Adult, [id number] kb Forms: - Medication Reconciliation Form kb - Thank You Letter kb - Antibiotic Education kb - Prescription Opioid Use kb Prescriptions: - Flomax 0.4 mg Oral capsule - take 1 capsule by ORAL route once daily 1/2 hour following the same meal each kb day; 10 capsule; Refills: 0, Product Selection Permitted - Augmentin 875-125 mg Oral Tablet - take 1 tablet by ORAL route every 12 hours for 10 days; 20 tablet; Refills: 0, kb Product Selection Permitted Signatures: Dispatcher [employer] Danielle Robert FNP-C FNP-Ben Sanchez MD MD kdr Fani Estrada, RN RN aa5 Rene Mo RN RN jd3 Corrections: (The following items were deleted from the chart) 04/25 17:21 14:32 CORONAVIRUS+MR.LAB.BRZ ordered. [facility] EDMA
[2021-04-25 19:14] VITALS: TEMP 98.6
[2021-04-25 19:21] VITALS: BP 116/66; O2SAT 95
== END 2021-04-25 18:55 | disposition home or self-care (01) ==
LOC: ER 13:18
DX: N39.0 Urinary tract infection, site not specified (principal); N20.2 Calculus of kidney with calculus of ureter; I10 Essential (primary) hypertension; Z20.822 Contact with and (suspected) exposure to COVID-19
CPT/HCPCS: 96365; 96368; 87088; 85025; 87086; 80048; 36415; 80076; 87077 ×2; 87186 ×2; 83690; 74177; 71045; 96375; 99284; U0003; Q9967; J3475; J0696; J2930; 81003; 81015

== ENCOUNTER 2021-12-02 09:21 | Inpatient (IN) | payer OTHER ==
--- OUTSIDE RECORDS SUMMARY | 2021-12-02 09:28 | XMS REPORT | Continuity of Care Document ---
:1955 Author Organization [facility] t Address [address] [place] [address] Care Team Providers Name Role Phone Clay Fong MD Primary Care Physician KIMBERLY SHRESTHA Attending Clinician Unavailable Doctor Unassigned, Name Attending Clinician Unavailable Ajit BORREGO Attending Clinician Nadia Espinoza Attending Clinician Unavailable Devika_JOSUE Attending Clinician Unavailable Shorty Maxwell MD Attending Clinician Preston FLORES, A Attending Clinician Unavailable Des Nation MD Attending Clinician PRESTON MULLEN Attending Clinician Unavailable KIMBERLY SHRESTHA Admitting Clinician Unavailable Nadia Espinoza Admitting Clinician Unavailable JessaAH Admitting Clinician Unavailable SAADIA Admitting Clinician Unavailable PRESTON MULLEN Admitting Clinician Unavailable Payers Payer Name Policy Type Policy Number Effective Date Expiration Date Sharonda fuentes [employer]LL[employer] [id number] 2019 00:00:00 CIGNA HMO/POS/OPEN [id number] 02 2003 ACCESS 00:00:00 CIGNA HEALTHCARE [id number] 2003 00:00:00 [place] OF [place] - [id number] 2019 [place] (MEDICARE 00:00:00 REPLACEMENT/ADVANTA GE - HMO) Problems Condition Condition Condition Status Onset Resolution Last Treating Co mments Source Name Details Category Date Date Treatment Clinician Date Hypotensiv Hypotensiv Disease Active 2020-09 U nivers e episode e episode 0-13 ity of 00:00: [address] PNA PNA Disease Active 2020-09 Univers (pneumonia (pneumonia 0-04 it y of ) ) 00:00: [address] Chronic Chronic Problem Active [place] obstructiv Obstructiv 1-25 Fa lana e lung e Lung 00:00: Practic disease Disease 00 e Essential Essential Problem Active [facility] hypertensi Hypertensi 1-22 Fa lana on on 00:00: Practic 00 e Chronic Chronic Problem Active [place] kidney Kidney 1-22 Family disease Disease 00:00: Practic stage 3 Stage 3 00 e Chronic Chronic Problem Active [place] kidney Kidney 1-22 Family disease Disease 00:00: Practic due to [...] e SARS-CoV-2 SARS-CoV-2 Problem Active [facility] ill[facility] 9- Family 00:00: Practic 00 e Depression Depression Problem Active [facility] screening Screening 05-11 Fami ly positive Positive 00:00: Practi c 00 e Insomnia Insomnia Problem Active [facility] 6 Family 00:00: Practic 00 e Hypothyroi Hypothyroi Problem Active [facility] dism dism 6- Family 00:00: Practic 00 e 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 6 Family 00:00: Practic 00 e Chronic Chronic Problem Active [place] back pain Back Pain 6-24 Fami ly 00:00: Practic 00 e Bilateral Bilateral Problem Active [facility] knee pain Knee Pain 6-24 Fami ly 00:00: Practic 00 e Staghorn Staghorn Disease Active Unive rs calculus calculus 3-04 ity of 00:00: [place] 00 Medical Branch Kidney Kidney Disease Active Overview: Radha s stone stone 1-29 Formattin ity of 00:00: g of this [place] 00 note Medical might be Branch different from the original. Added automatic ally from request for surgery [id number] Chronic Chronic Disease Active Univers gout gout 1-17 ity of without without 00:00: [place] tophus, tophus, 00 Medical unspecifie unspecifie Br anch d cause, d cause, unspecifie unspecifie d site d site Vaginal Vaginal Disease Active Univers bleeding bleeding 8-21 ity of 00:00: [place] 00 Medical Branch Postmenopa Postmenopa Disease Active U nivers usal usal 8-21 ity of vaginal vaginal 00:00: [place] bleeding bleeding 00 Medica l Branch Recurrent Recurrent Disease Active Uni vers joint pain joint pain 8-21 it y of 00:00: Medical Branch Dehydratio Dehydratio Disease Active U nivers n n 5-06 ity of 00:00: Medical Branch Fistula Fistula Disease Active Overview: Univ ers 4-18 Formattin ity of 00:00: g of this 00 note Medical might be Branch different from the original. Added automatic ally from request for surgery [id number] Morbid Morbid Disease Active [facility] obesity obesity 4-12 College with body with body 00:00: of mass index mass index 00 Me dicin of of e 40.0-49.9 40.0-49.9 (HCCode) (HCCode) Hypotensio Hypotensio Disease Active U nivers n n 4-12 ity of 00:00: Medical Branch Morbid Morbid Disease Active Univers obesity obesity 4-12 ity of with body with body 00:[place] mass index mass index 00 Me dical of of Branch 40.0-49.9 40.0-49.9 Morbid Morbid Disease Active [facility] obesity obesity 3-30 st with BMI with BMI 00:00: Hospit a of of 00 l 50.0-59.9, 50.0-59.9, adult adult Acute Acute Disease Active [facility] renal renal 3-21 st failure failure 00:00: [facility]osp[facility] 00 l [place] Disease Active M ethodi l fistula l fistula 2-05 st 00:00: Hospita 00 l Chronic Chronic Disease Active 2016-09 Univers low back low back 2-12 ity of pain pain 00:00: Medical Branch Fistula, Fistula, Disease Active Unive rs bladder bladder 6-30 ity of 00:00: Medical Branch Anxiety Anxiety Disease Active Univers 6-30 ity of 00:00: Medical Branch Insomnia, Insomnia, Disease Active Uni vers unspecifie unspecifie 6-30 it y of d type d type 00:00: Medical Branch Osteoarthr Osteoarthr Disease Active U nivers itis, itis, 5-03 ity of unspecifie unspecifie [place] 00 Medical osteoarthr osteoarthr Br anch itis type, itis type, unspecifie unspecifie d site d site Leukocytos Leukocytos Disease Active [facility] DM DM Disease Active [facility] (diabetes (diabetes 2-16 [facility] - mellitus), mellitus), 00:00: Me dical type 2 type 2 Center Diverticul Diverticul Disease Active [facility] itis itis 2-15 [facility] - [facility]: Medical 00 [place] Kid[facility] Kidney Disease Active [facility] stones stones 4-25 College 00:00: of 00 Medicin e [place]aghorn Staghorn Disease Active [facility] calculus calculus 4-25 Colleg e 00:00: of 00 Medicin e [place] Disease Active [facility] fistula l fistula 4-25 [facility] 00:00: of 00 Medicin e Recurrent Recurrent Disease Active [facility] UTI UTI 4-25 College 00:00: of 00 Medicin e Dysuria Dysuria Disease Active 2014-09 Univers 0-08 ity of 00:00: [place] [address] Medical Branch Bed sore, Bed sore, Disease Active 2014-09 Uni vers stage 2 stage 2 0-08 ity of 00:00: [place] [address] Medical Branch Lump or Lump or Disease Active 2014-09 Univers mass in mass in 0-08 ity of breast breast 00:00: [place] [address] Medical Branch Dyspareuni Dyspareuni Disease Active 2014-09 U nivers a a 0-08 ity of 00:00: [place] [address] Medical Branch Well woman Well woman Disease Active 2014-09 U nivers exam with exam with 0-08 ity of routine routine 00:00: [place] gynecologi gynecologi 00 Me dical nina exam nina exam Branch Cervical Cervical Disease Active 2014-09 Unive rs polyp polyp 0-08 ity of 00:00: [place] [address] Medical Branch Pyelonephr Pyelonephr Disease Active 2006-09 Overview : Univers itis itis 0-11 Formattin ity of 00:00: g of this [place] 00 note Medical might be Branch different from the original. 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 Allergies, Adverse Reactions, Alerts Allergy Allergy Status Severity Reaction(s) Onset Inactive Treating Comm ents Source Name Type Date Date Clinician No Known DA Active U 2020-09 [facility] Allergie 1-05 Clear s 00:00: Hernandez 00 [facility] NO KNOWN Allergy Active [facility] ALLERGIE S Family History Family Member Diagnosis Comments Start Date Stop Date Source Natural father [facility] Natural mother [facility] Social History Social Habit Start Date Stop Date Quantity Comments Source History SDOH University o f Alcohol Frequency [facility] [place] edical Branch History SDOH University o f Alcohol Std [place] [facility] Drinks Branch History SDOH University o f Alcohol Binge [place] [facility] al Branch Exposure to Not sure University of SARS-CoV-2 [place] [facility] (event) Branch Tobacco Comment 2021-06-18 2021-06-18 Quit in 1969's Unive rsity of 00:00:00 00:00:00 [facility] [place] Tobacco use and 2020-07-31 2020-07-31 Never used [facility] Co llege of exposure 00:00:00 00:00:00 Medicine Alcohol intake 2020-06-26 2020-06-26 [facility] - 00:00[facility]00 00:00:[address] [facility] Alcohol Comment 2015-06-22 2015-06-22 Wine ocassionally Un iversity of 00:00:00 00:00:00 [facility] [place] Sex [birth year] GERBER Herrera kes - 00:00:00 00:00:[address] [facility] Smoking Status Start Date Stop Date Source Never smoker [facility] Former smoker 2021-06-18 00:00:00 2021-06-18 00:00:00 [facility] Medications Ordered Filled Start Stop Current Ordering Indication Dosage Frequency Signature Comments Components Source Medication Medication Date Date Medication? Clinician (SIG) Name Name HYDROcodone Yes [id number] TAKE ONE U nivers -acetaminop 2-04 (1) TABLET it y of hen 10-325 00:00: BY MOUTH Michael as mg tablet 00 EVERY 4 Medical (FOUR) Branch HOURS NEEDED FOR PAIN (SCALE 4-6) OR PAIN (SCALE 7-10). Indication s: chronic pain furosemide Yes [id number] 40mg Take 1 Un raya 40 mg 1-03 tablet by ity of tablet 00:00: mouth [place] 00 daily. Medical Branch spironolact 2020-09 Yes [id number] 25mg Take 1 U nivers one 25 mg 2-30 tablet by ity o f tablet 00:00: mouth 2 [place] 00 (two) Medical times Branch daily. pregabalin 2020-09 Yes [id number] 150mg Take 1 Univers 150 mg 2-30 capsule by ity of capsule 00:00: mouth 2 [place] 00 (two) Medical times Branch daily. Ferrous 2020-09 Yes [id number] 1{tbl} Take 1 U nivers Fumarate-Fo 2-30 tablet by ity of lic Acid 00:00: mouth [place] (HEMATINIC/ 00 daily. Medica l FOLIC ACID) Branch 324 mg (106 mg iron)-1 mg Tab atorvastati 2020-09 Yes [id number] 40mg Take 1 Univers n 40 mg 2-30 tablet by ity of tablet 00:00: mouth at [place] 00 bedtime. Medical Branch ALPRAZolam 2020-09 Yes [id number] TAKE 1 U nivers 1 mg tablet 2-30 TABLET BY ity of 00:00: MOUTH 3 [place] 00 TIMES A Medical DAY Branch NEEDED FOR OTHER ( ANXIETY) allopurinoL 2020-09 Yes [id number] 100mg Take 1 Univers 100 mg 2-30 tablet by ity of tablet 00:00: mouth [place] 00 daily. Medical Branch albuterol 2020-09 Yes [id number] TAKE 2 U nivers 90 2-30 PUFFS BY ity of mcg/actuati 00:00: MOUTH [place] on inhaler 00 EVERY 6 Medica l HOURS Branch NEEDED FOR WHEEZE OR FOR SHORTNESS OF BREATH acetaZOLAMI 2020-09 Yes [id number] 250mg Take 1 Univers DE 250 mg 2-30 tablet by ity o f tablet 00:00: mouth [place] 00 daily. Medical Branch spironolact 2020-09 Yes [id number] 25mg Take 1 U nivers one 25 mg 2-30 tablet by ity o f tablet 00:00: mouth 2 [place] 00 (two) Medical times Branch daily. pregabalin 2020-09 Yes [id number] 150mg Take 1 Univers 150 mg 2-30 capsule by ity of capsule 00:00: mouth 2 [place] 00 (two) Medical times Branch daily. Ferrous 2020-09 Yes [id number] 1{tbl} Take 1 U nivers Fumarate-Fo 2-30 tablet by ity of lic Acid 00:00: mouth [place] (HEMATINIC/ 00 daily. Medica l FOLIC ACID) Branch 324 mg (106 mg iron)-1 mg Tab ALPRAZolam 2020-09 Yes [id number] TAKE 1 U nivers 1 mg tablet 2-30 TABLET BY ity of 00:00: MOUTH 3 [place] 00 TIMES A Medical DAY Branch NEEDED FOR OTHER ( ANXIETY) allopurinoL 2020-09 Yes [id number] 100mg Take 1 Univers 100 mg 2-30 tablet by ity of tablet 00:00: mouth [place] 00 daily. Medical Branch albuterol 2020-09 Yes [id number] TAKE 2 U nivers 90 2-30 PUFFS BY ity of mcg/actuati 00:00: MOUTH [place] on inhaler 00 EVERY 6 Medica l HOURS Branch NEEDED FOR WHEEZE OR FOR SHORTNESS OF BREATH acetaZOLAMI 2020-09 Yes [id number] 250mg Take 1 Univers DE 250 mg 2-30 tablet by ity o f tablet 00:00: mouth [place] 00 daily. Medical Branch HYDROcodone 2020-09- No [id number] TAKE ONE Univers -acetaminop 2-30 02-04 (1) TABLET i ty of hen 10-325 00:00: 00:00 [place]TH [place] mg tablet 00 :00 EVERY 4 Medical (FOUR) Branch HOURS NEEDED FOR PAIN (SCALE 4-6) OR PAIN (SCALE 7-10). Indication s: chronic pain levothyroxi 2020-09- No [id number] TAKE 2 Univers ne 100 mcg 2-30 - TABLETS BY it y of tablet 00:00: 00:00 MOUTH [place] 00 :00 EVERY DAY Medical BEFORE A Branch MEAL colchicine 2020-09- No [id number] .6mg Take 1 Univers 0.6 mg 2-30 - tablet by ity of tablet 00:00: 00:00 mouth [place] 00 :00 every Medical other day. Branch furosemide 2020-09- No [id number] 40mg Take 1 U nivers 40 mg 2-30 - tablet by ity of tablet 00:00: 00:00 mouth [place] 00 :00 daily. Medical Branch METOPROLOL 2020-09- No [id number] TAKE 1 U nivers TARTRATE 50 0-25 12-30 TABLET BY it y of mg tablet 00:00: 00:00 MOUTH [place] 00 :00 TWICE A Medical DAY Branch FUROSEMIDE 2020-09- No [id number] TAKE 1 U nivers 20 mg 0-25 12-30 TABLET BY ity of tablet 00:00: 00:00 MOUTH [place] 00 :00 EVERY DAY Medical Branch predniSONE 2020-09- No [id number] 3 tabs PO Univers 10 mg 0-07 12-30 daily for ity of tablet 00:00: 00:00 3 days, 2 [place] 00 :00 tabs PO Medical daily for Branch 3 days, 1 tab PO daily for 3 days then stop HEMATINIC/F 2020-09- No [id number] TAKE 1 Univers OLIC ACID 0-06 12-30 TABLET BY ity of 324 mg (106 00:00: 00:00 MOUTH [place] mg iron)-1 00 :00 EVERY DAY Medi nina mg Tab Branch levothyroxi 2020- No TAKE 2 Uni vers ne 100 mcg - 12-30 TABLETS BY it y of tablet 00:00: 00:00 MOUTH [place] 00 :00 EVERY DAY Medical BEFORE A Branch MEAL HYDROcodone 2020- No [id number] TAKE ONE Univers -acetaminop 8- 12-30 (1) TABLET i ty of hen 10-325 00:00: 00:00 [place]TH [place] mg tablet 00 :00 EVERY 4 Medical (FOUR) Branch HOURS NEEDED FOR PAIN (SCALE 4-6) OR PAIN (SCALE 7-10). Indication s: chronic pain ALLOPURINOL 2020- No [id number] TAKE 1 Univers 100 mg 8-12 12-30 TABLET BY ity of tablet 00:00: 00:00 MOUTH [place] 00 :00 EVERY DAY Medical Branch SPIRONOLACT 2020- No TAKE 1 Uni vers ONE 25 mg 8-12 12-30 TABLET BY ity of tablet 00:00: 00:00 MOUTH [place] 00 :00 TWICE A Medical DAY Branch ZOLPIDEM 10 2020- No [id number] TAKE 1 Univers mg tablet 7- 12-30 TABLET BY ity of 00:00: 00:00 MOUTH AT [place] 00 :00 BEDTIME Medical NEEDED FOR Branch SLEEP PREGABALIN 2020- No [id number] TAKE 1 Univers 150 mg 7- 12-30 CAPSULE BY ity of capsule 00:00: 00:00 MOUTH [place] 00 :00 TWICE A Medical DAY Branch ALPRAZOLAM 2020- No [id number] TAKE 1 Univers 1 mg tablet 03-19-30 TABLET BY it y of 00:00: 00:00 MOUTH 3 [place] 00 :00 TIMES A Medical DAY Branch NEEDED FOR OTHER ( ANXIETY) acetaZOLAMI 2020- No [id number] 250mg Take 1 Univers DE 250 mg 6-30 12-30 tablet by ity of tablet 00:00: 00:00 mouth [place] 00 :00 daily. Medical Branch atorvastati 2020- No 40mg Take 1 Uni vers n 40 mg 6-30 12-30 tablet by ity of tablet 00:00: 00:00 mouth at [place] 00 :00 bedtime. Medical Branch valsartan-h 2020- No [id number] 1{tbl} Take 1 Univers ydrochlorot 6-30 12-30 tablet by it y of hiazide 00:00: 00:00 mouth [place] 320-25 mg 00 :00 daily. Medical per tablet Branch Diclofenac- 2019-09 Yes 1{tbl} Take 1 [facility] miSOPROStol 1-16 Tablet by Col lege 75-0.2 MG 21:02: mouth. of TBEC 26 Medicin e econazole 2019-09 Yes econazole [place] [facility] nitrate 1 % 1-16 1 % College cream 21:02: topical of 26 cream Medicin e escitalopra 2019-09 Yes escitalopr [place] (LEXAPRO) 1-16 am 10 mg [facility] 10 MG 21:02: tablet of tablet 26 Medicin e azithromyci 2019-09 Yes azithromyc [facility] n 16 in 250 mg [place] (ZITHROMAX) 21:02: tablet of 250 MG 25 Medicin tablet e benzonatate 2019-09 Yes benzonatat [facility] (TESSALON) 16 e 200 mg Colle ge 200 mg 21:02: capsule of capsule 25 Medicin e Buprenorphi 2019-09 Yes buprenorph [facility] ne 16 ine 8 College HCl-Naloxon 21:02: mg-naloxon of e HCl 8-2 25 e 2 mg Medicin MG FILM sublingual e film ciprofloxac 2019-09 Yes ciprofloxa [facility] in (CIPRO) 09-30 danya 500 mg Col lege 500 MG 21:02: tablet of tablet 25 Medicin e clobetasol 2019-09 Yes [facility]ol [facility] (TEM[facility]ATE) 09-30 0.05 % [place] 0.05 % 21:02: topical of ointment 25 ointment Medicin e Cyclobenzap 2019-09 Yes cyclobenza [facility] rine HCl 09-30 festus 7.5 Colleg e 7.5 MG TABS 21:02: mg tablet o f 25 Medicin e Albuterol 2019-09 Yes ProAir [facility] Sulfate 09-30 [employer] Colleg e (PROAIR 21:02: 90 of RESPICLICK) 24 mcg/actuat Me dicin 108 (90 ion breath e Base) activated MCG/ACT AEPB levothyroxi 2019-09 Yes 175ug Take [address] [facility] [facility] ne 0-12 tablet [facility] - (SYNTHROID, 00:00: (175 mcg Me dical LEVOTHROID) 00 total) by [facility] ter 175 MCG mouth tablet Every morning [...] 00 by mouth Center daily with dinner. levothyroxi 2019-09 Yes 175ug Take [address] [facility] [facility] ne 0-12 tablet [facility] - (SYNTHROID, 00:00: (175 mcg Me dical LEVOTHROID) 00 total) by [facility] 175 MCG mouth tablet Every morning [...] by Center mouth 2 (two) times daily. senna 2019-09- No 8.6mg Take 1 [facility] [...] Take [address] -albuteroL 0-12 06-21 by [facility] - (DUO-NEB) 00:00: 23:59 nebulizati M edical 0.5 mg-3 00 :00 on every 4 Cente r mg(2.5 mg (four) base)/3 mL hours for nebulizer 360 days. solution ipratropium 2019-09- No 3mL Take [address] -albuteroL 0-12 10-07 by [place] - (DUO-NEB) 00:00: 23:59 nebulizati M edical 0.5 mg-3 00 :00 on every 4 Cente r mg(2.5 mg (four) base)/3 mL hours for nebulizer 360 days. solution citalopram Yes TAKE 1 [facility] (CELEXA) 20 8-30 TABLET BY Col lege MG tablet 00:00: MOUTH of 00 EVERY DAY Medicin e albuterol Yes Q6H [facility] 108 (90 7-22 College base) 00:00: of mcg/act 00 Medicin inhaler e diclofenac Yes TWICE [facility] (VOLTAREN) 7-22 DAILY College 50 MG EC 00:00: of tablet 00 Medicin e ALBUTEROL Yes [id number] USE 1 VIAL Univers 2.5 mg /3 5-22 WITH ity of mL (0.083 00:00: NEBULIZER [place] as %) 00 EVERY 6 Medical nebulizer HOURS Branch solution NEEDED FOR SHORTNESS OF BREATH/WHE EZING ALBUTEROL Yes [id number] USE 1 VIAL Univers 2.5 mg /3 5-22 WITH ity of mL (0.083 00:00: NEBULIZER [place] as %) 00 EVERY 6 Medical nebulizer HOURS Branch solution NEEDED FOR SHORTNESS OF BREATH/WHE EZING METFORMIN 2020- No [id number] TAKE 1 Univers 500 mg 5-17 12-30 TABLET BY ity of tablet 00:00: 00:00 MOUTH [place] 00 :00 TWICE A Medical DAY WITH Branch MEALS tizanidine tizanidine No tizanidine [place] 4 mg tablet 4 mg tablet 5-11 4 mg F amily and and 00:00: tablet and Practic irritant-co irritant-co 00 irritant-c e unter unter ounter irritant irritant irritant comb.no.2 comb.no.2 comb.no.2 gel kit gel kit gel kit amoxicillin Yes amoxicilli [facility] -clavulanat 3-11 n 875 College e 00:00: mg-potassi of (AUGMENTIN) 00 um Medicin 875-125 MG clavulanat e per tablet e 125 mg tablet albuterol 2020- No [id number] TAKE 2 Univers 90 2-24 12-30 PUFFS BY ity of mcg/actuati 00:00: 00:00 MOUTH [place] on inhaler 00 :00 EVERY 6 Medica l HOURS Branch NEEDED FOR WHEEZE OR FOR SHORTNESS OF BREATH allopurinol 2018-09 Yes allopurino [facility] (ZYLOPRIM) 1-25 l 100 mg Colle ge 100 MG 00:00: tablet of tablet 00 Medicin e potassium 2018-09 Yes [id number] 1080mg Take 1 Univers citrate 10 0-10 tablet by ity of mEq ( 00:00: mouth [place] mg) SR 00 daily. Medical tablet Branch potassium 2018-09 Yes [id number] 1080mg Take 1 Univers citrate 10 0-10 tablet by ity of mEq ( 00:00: mouth [place] mg) SR 00 daily. Medical tablet Branch cephALEXin 2018-09 Yes cephalexin [facility] (KEFLEX) 0-08 500 mg College 500 MG 00:00: capsule of capsule 00 Medicin e clindamycin 2018-09 Yes clindamyci [facility] (CLEOCIN) 0-08 n HCl 300 Colle ge 300 MG 00:00: mg capsule of capsule 00 Medicin e hydrochloro hydrochloro 2018-09 No hydrochlor [place] thiazide thiazide 0-02 othiazide Fa lana 12.5 mg 12.5 mg 00:00: 12.5 mg Prac tic capsule capsule 00 capsule e alprazolam Yes alprazolam [facility] (XANAX) 1 8-26 1 mg College MG tablet 00:00: tablet of 00 Medicin e citalopram Yes citalopram [facility] (CELEXA) 20 6-27 20 mg College MG tablet 00:00: tablet of 00 Medicin e miSOPROStol 2020- No 200ug Take 1 Un raya 200 mcg 2 12-30 tablet by ity of tablet 00:00: 00:00 mouth 2 [place] 00 :00 (two) Medical times Branch daily. Take one tab the night before scheduled procedure and one tab the morning of. colchicine 2020- No .6mg Take 1 Univ ers 0.6 mg 06-08-30 tablet by ity of tablet 00:00: 00:00 mouth [place] 00 :00 every Medical other day. Branch levothyroxi Yes 175ug QD Take 175 M ethodi ne 4-[address] (SYNTHROID, 15:53: mouth Hospi ta LEVOXYL) 29 every l 175 mcg morning. tablet ferrous Yes 1{tbl} QD Take 1 Method i fumarate-fo 4-[address] lic acid 13:48: mouth Hospita (HEMATINIC/ 08 nightly. l FOLIC ACID) 324 mg (106 mg iron)-1 mg tablet per tablet rivaroxaban Yes 20mg QD Take 20 mg Methodi (XARELTO) 4-[address] 20 mg 13:48: nightly. Hospita tablet 08 l zolpidem Yes 10mg QD Take 10 mg Met hodi (AMBIEN) 10 4-[address] mg tablet 13:48: nightly as Ho spita 08 needed for l sleep. metoprolol Yes 50mg Q.5D Take 50 mg M ethodi tartrate 4-[address] (LOPRESSOR) 13:48: (two) Hospi ta 50 mg 08 times a l tablet day. albuterol Yes 2{puff} Q6H Inhale 2 M ethodi (PROAIR 4-[address] HFA,PROVENT 13:48: every 6 Hos [place] 08 (six) l HFA,VENTOLI hours as N HFA) 90 needed for mcg/actuati wheezing. on inhaler ALPRAZolam Yes 1mg Q.[id number] Take 1 mg Methodi (XANAX) 1 4-03 [id number] mouth [address] MG tablet 13:48: 3D (three) Hospi ta 08 times a l day as needed for anxiety. citalopram Yes 20mg QD Take 20 mg M ethodi (CeleXA) 20 4-[address] MG tablet 13:48: every Hospita 08 morning. l diclofenac- 0 Yes 1{tbl} Q.5D Take 1 Me thodi misoprostol 4-[address] (ARTHROTEC 13:48: mouth 2 Hosp antonio 75) 75-200 08 (two) l mg-mcg EC times a tablet day as needed (arthritis pain). fluocinonid 2017- Yes 1{appli Q.5D Apply 1 Methodi e 0.1 % 3-15 cation} applicatio st cream 00:00: n Hospita 00 topically l 2 (two) times a day. (apply sparingly) LYRICA 75 Yes 75mg Q.5D Take 75 mg Me thodi mg capsule 3-[address] 00:00: (two) Hospita 00 times a l day. enoxaparin Yes Inject 0.8 M ethodi (LOVENOX) 2-[address] 120 mg/0.8 00:00: subcutanou H ospita mL syringe 00 sharon twice l daily. Take after stopping xarelto 2 days prior to surgery. Hold the night before surgery. umeclidiniu Yes 1{puff} QD Inhale 1 Methodi m-vilantero 2-[address] l (ANORO 00:00: for 30 Hospita ELLIPTA) 00 days. l 62.5-25 mcg/actuati on blister with device valsartan 2017-0 Yes 320mg Take 320 [place] [facility] (DIOVAN) 6-22 mg by [place] 320 MG 15:22: mouth of tablet 51 daily. Medicin e Gabapentin, 0 Yes Take by [facility] Once-Daily, 6-22 mouth. Colleg e 300 MG TABS 15:22: of 51 Medicin e metoprolol 2017 Yes 50mg Take 50 mg [facility] (TOPROL-XL) 6-22 by mouth Ana ege 50 MG XL 15:22: daily. of tablet 51 Medicin e metformin 2017-0 Yes 500mg Take 500 [place] [facility] (GLUCOPHAGE 6-22 mg by [place] ) 500 MG 15:22: mouth 2 of tablet 51 times Medicin daily e (with meals). furosemide 2017-0 Yes 20mg Take 20 mg [facility] (LASIX) 20 6-22 by mouth Colle ge MG tablet 15:22: daily. of 51 Medicin e meloxicam 2017-0 Yes 15mg Take 15 mg [facility] (MOBIC) 15 6-22 by mouth Colle ge MG tablet 15:22: daily. of 51 Medicin e LEVOTHYROXI 2017-0 Yes Take by [facility] NE SODIUM 6-22 mouth. College OR 15:22: of 51 Medicin e etodolac Yes 400mg Take 400 [facility] (LODINE) 6-22 mg by College 400 MG 15:22: mouth of tablet 51 daily. Medicin e zolpidem Yes 10mg Take 10 mg [place] [facility] (AMBIEN) 10 6-22 by mouth Ana ege MG tablet 15:22: nightly as of 51 needed for Medicin Sleep. e HYDROCODONE Yes Take by [place] BITARTRATE 6-22 mouth. College OR 15:22: of 51 Medicin e cefdinir Yes 300mg Take 300 [facility] (OMNICEF) 6-22 mg by College 300 MG 15:22: mouth two of capsule 51 times Medicin daily. e solifenacin Yes 10mg Take 10 mg [facility] (VESICARE) 6-22 by mouth Colle ge 10 MG 15:22: daily. of tablet 51 Medicin e Rivaroxaban Yes 20mg Take 20 mg [facility] (XARELTO) 6-22 by mouth [facility] e 20 MG TABS 15:22: daily. of 27 Medicin e HEMATINIC/F Yes [facility] (106 00:00: Medica l mg iron)-1 00 Center mg Tab HEMATINIC/F Yes [facility] - 324 mg (106 00:00: Medica l mg iron)-1 00 Center mg Tab citalopram 2015-[address] [facility] (CELEXA) 20 2-03 [facility] - MG tablet 00:00: Medical 00 [place] citalopram 2015-[address] [facility] (CELEXA) 20 2-03 [facility] - MG tablet 00:00: Medical 00 [place] zolpidem 2015-[address] [facility] (AMBIEN) 10 2-01 [facility] - mg tablet 00:00: Medical 00 [place] zolpidem 2015-[address] [address] (AMBIEN) 10 2-01 [facility] - mg tablet 00:00: Medical 00 [place] metronidazo Yes 500mg Take 1 Tab [facility] (FLAGYL) 4-25 by mouth 3 Co [facility]lege 500 MG 00:00: times of tablet 00 daily. Medicin e acetazolami acetazolami acetazolam [facility] de 250 mg de 250 mg vesna 250 mg Family tablet TAKE tablet TAKE tablet Practic 1 TABLET BY 1 TABLET BY TAKE 1 e MOUTH EVERY MOUTH EVERY TABLET BY DAY DAY MOUTH EVERY DAY albuterol albuterol No albuterol [facility] sulfate 2.5 sulfate 2.5 sulfate Family mg/3 mL mg/3 mL 2.5 mg/3 Pract ic (0.083 %) (0.083 %) mL (0.083 e solution solution %) for for solution nebulizatio nebulizatio for n n nebulizati on albuterol albuterol No albuterol [facility] sulfate HFA sulfate HFA sulfate Family 90 90 HFA 90 Practic mcg/actuati mcg/actuati mcg/actuat e on aerosol on aerosol ion inhaler inhaler aerosol inhaler allopurinol allopurinol allopurino [facility] 100 mg 100 mg l 100 mg Family tablet TAKE tablet TAKE tablet Practic 1 TABLET BY 1 TABLET BY TAKE 1 e MOUTH EVERY MOUTH EVERY TABLET BY DAY DAY MOUTH EVERY DAY alprazolam alprazolam No alprazolam [facility] 1 mg tablet 1 mg tablet 1 mg F amily TAKE 1 TAKE 1 tablet Practic TABLET BY TABLET BY TAKE 1 e MOUTH 3 MOUTH 3 TABLET BY TIMES A DAY TIMES A DAY MOUTH 3 NEEDED NEEDED TIMES A FOR OTHER ( FOR OTHER ( DAY ANXIETY) ANXIETY) NEEDED FOR OTHER ( ANXIETY) amoxicillin amoxicillin No amoxicilli [facility] [phone] Family mg-potassiu mg-potassiu mg-potassi Practic m m um e clavulanate clavulanate clavulanat 125 mg 125 mg e 125 mg tablet tablet tablet azithromyci azithromyci azithromyc [facility] n 250 mg n 250 mg in 250 mg Fa lana tablet tablet tablet Practic e benzonatate benzonatate No benzonatat [facility] 200 mg 200 mg e 200 mg Family capsule capsule capsule Practi c e Breo Kristinao No Breo [facility] Ellipta 200 Ellipta 200 Ellipta Family mcg-25 mcg-25 200 mcg-25 Pract ic mcg/dose mcg/dose mcg/dose e powder for powder for powder for inhalation inhalation inhalation citalopram citalopram citalopram [facility] 20 mg 20 mg 20 mg Family tablet tablet tablet Practic e clobetasol clobetasol No clobetasol [facility] 0.05 % 0.05 % 0.05 % Family topical topical topical Practi c ointment ointment ointment e cyclobenzap cyclobenzap No cyclobenza [facility] rine 7.5 mg rine 7.5 mg festus [...] by oral route. fluconazole fluconazole No fluconazol [facility] 150 mg 150 mg e 150 mg Family tablet tablet tablet Practic e furosemide furosemide No furosemide [facility] 20 mg 20 mg 20 mg Family tablet 20 tablet 20 tablet 20 Practic mg by oral mg by oral mg by oral e route. route. route. gabapentin gabapentin No gabapentin [facility] 300 mg 300 mg 300 mg Family capsule capsule capsule Practi c e Hematinic/F Hematinic/F No Hematinic/ [facility] olic Acid olic Acid Folic Acid [facility] 324 mg (106 324 mg (106 324 mg Practic mg iron)-1 mg iron)-1 (106 mg e mg tablet mg tablet iron)-1 mg 1 {tbl} by 1 {tbl} by tablet 1 oral route. oral route. {tbl} by oral route. hydrocodone hydrocodone No hydrocodon [facility] 10 10 e 10 Family mg-acetamin mg-acetamin [...] PAIN (SCALE 7-10). levothyroxi levothyroxi No levothyrox [facility] ne 100 mcg ne 100 mcg ine 100 Family tablet TAKE tablet TAKE mcg tablet Practic 2 TABLETS 2 TABLETS TAKE 2 e BY MOUTH BY MOUTH TABLETS BY EVERY DAY EVERY DAY MOUTH BEFORE A BEFORE A EVERY DAY MEAL MEAL BEFORE A MEAL levothyroxi levothyroxi No levothyrox [facility] ne 175 mcg ne 175 mcg ine 175 Family tablet TAKE tablet TAKE mcg tablet Practic 1 TABLET BY 1 TABLET BY TAKE 1 e MOUTH EVERY MOUTH EVERY TABLET BY DAY IN THE DAY IN THE MOUTH MORNING MORNING EVERY DAY IN THE MORNING levothyroxi levothyroxi No 1 Q1D levothyrox [facility] ne 75 mcg ne 75 mcg ine 75 mcg Family tablet Take tablet Take tablet Practic 1 tablet 1 tablet Take 1 e every day every day tablet by oral by oral every day route. route. by oral route. metformin metformin No metformin [facility] 500 mg 500 mg 500 mg Family tablet tablet tablet Practic e methylpredn methylpredn No methylpred [facility] isolone 4 isolone 4 nisolone 4 Family mg tablets mg tablets mg tablets Practic in a dose in a dose in a dose e pack pack pack metoprolol metoprolol No metoprolol [facility] succinate succinate succinate Family ER 50 mg ER 50 mg ER 50 mg Pra ctic tablet,exte tablet,exte tablet,ext e nded nded ended release 24 release 24 release 24 hr 50 mg hr 50 mg hr 50 mg by oral by oral by oral route. route. route. minocycline minocycline No minocyclin [facility] 100 mg 100 mg e 100 mg Family capsule capsule capsule Practi c TAKE 1 TAKE 1 TAKE 1 e CAPSULE BY CAPSULE BY CAPSULE BY MOUTH TWICE MOUTH TWICE MOUTH A DAY A DAY TWICE A DAY potassium potassium No potassium [facility] citrate ER citrate ER citrate ER [facility] 10 mEq 10 mEq 10 mEq Practic (1,080 mg) (1,080 mg) (1,080 mg) e tablet,exte tablet,exte tablet,ext nded nded ended release release release prednisone prednisone No prednisone [facility] 10 mg 10 mg 10 mg Family tablet tablet tablet Practic e pregabalin pregabalin No pregabalin [facility] 150 mg 150 mg 150 mg Family capsule capsule capsule Practi c e ProAir ProAir No [place] RespiClick RespiClick RespiClick Family 90 90 90 Practic mcg/actuati mcg/actuati mcg/actuat e on breath on breath ion breath activated activated activated sulfamethox sulfamethox No sulfametho [facility] azole 800 azole 800 xazole 800 Family [...] by oral route. oral route. oral route. [facility] No [facility] ne ne one Family acetonide acetonide acetonide Practic 0.147 0.147 0.147 e mg/gram mg/gram mg/gram topical topical topical aerosol aerosol aerosol valsartan valsartan No 1 Q1D valsartan [facility] 320 320 320 Family mg-hydrochl mg-hydrochl mg-hydroch Practic orothiazide orothiazide lorothiazi e 12.5 mg 12.5 mg de 12.5 mg tablet Take tablet Take tablet 1 tablet 1 tablet Take 1 every day every day tablet by oral by oral every day route. route. by oral route. valsartan [facility] Family mg-hydrochl mg-hydrochl mg-hydroch Practic orothiazide orothiazide lorothiazi e 25 mg 25 mg de 25 mg tablet TAKE tablet TAKE tablet 1 TABLET BY 1 TABLET BY TAKE 1 MOUTH EVERY MOUTH EVERY TABLET BY DAY DAY MOUTH EVERY DAY Ericxannabella Onealxela No Wixannabella [facility] Inhub 250 Inhub 250 Inhub 250 Family [...] mg by oral e route. Immunizations Ordered Filled Immunization Date Status Comments [facility] e Immunization Name Name SARS-COV-2 COVID-19 2021-09-13 Completed Unive rsity of MODERNA BOOSTER 00:00:00 [facility] VACCINE Branch SARS-COV-2 COVID-19 2021-09-13 Completed Unive rsity of MODERNA BOOSTER 00:00:00 [facility] VACCINE Branch SARS-COV-2 COVID-19 2021-06-02 Completed Unive rsity of MODERNA VACCINE 00:00:00 [facility] Branch SARS-COV-2 COVID-19 2021-06-02 Completed Unive rsity of MODERNA VACCINE 00:00:00 [facility] SARS-COV-2 COVID-19 2021-05-02 Completed Unive rsity of MODERNA VACCINE 00:00:00 [facility] SARS-COV-2 COVID-19 2021-05-02 Completed Unive rsity of MODERNA VACCINE 00:00:00 [facility] influenza, influenza, 2019-06-15 Completed [facility] injectable, injectable, 00:00:00 Practice quadrivalent quadrivalent TDAP 2018-10-21 Completed [facility] 00:00:00 [facility] Influenza Virus 2018-10-21 Completed Universit y of Vaccine Quad .5 mL 00:00:[address] [facility] 6+ MO Branch TDAP 2018-10-21 Completed [facility] 00:00:00 [facility] Influenza Virus 2018-10-21 Completed Universit y of Vaccine Quad .5 mL 00:00:[address] [facility] 6+ MO [place] Influenza Virus 2017-06-23 Completed Universit y of Vaccine Quad IM 3+ 00:00:00 [facility] Influenza Virus 2017-06-23 Completed Universit y of Vaccine Quad IM 3+ 00:00:00 [facility] Influenza Virus 2015-07-06 Completed Universit y of Vaccine Quad ID 00:00:00 [facility] [address] [facility] Influenza Virus 2015-07-06 Completed Universit y of Vaccine Quad ID 00:00:[address] [facility] Branch Vital Signs Vital Name Observation Time Observation Value Comments Source HEIGHT 2020-06-17 16:00:00 175.3 cm WEIGHT 2020-06-17 16:00:00 139.708 kg HEIGHT 2020-06-17 00:00:00 175.3 cm WEIGHT 2020-06-17 00:00:00 139.708 kg Systolic blood 2021-09-13 15:00:00 124 mm[Hg] Univer sity of pressure [facility] Diastolic blood 2021-09-13 15:00:00 80 mm[Hg] Unive rsity of pressure [facility] Heart rate 2021-09-13 15:00:00 60 /min [facility] Oxygen saturation 2021-09-13 15:00:00 96 /min on 2.5Lpm O2 Uni versity of in Arterial blood [facility] by Pulse oximetry Branch Height 2020-10-09 00:00:00 68 [in_i] [facility] BMI (Body Mass 2020-10-09 00:00:00 39.4 kg/m2 [facility] Body Weight 2020-10-09 00:00:00 259 [lb_av] [facility] Family Practice HEIGHT 2020-06-17 16:00:00 175.3 cm WEIGHT 2020-06-17 16:00:00 139.708 kg HEIGHT 2020-06-17 00:00:00 175.3 cm WEIGHT 2020-06-17 00:00:00 139.708 kg Height 2020-06-12 00:00:00 68 [in_i] [facility] Height 2020-05-24 00:00:00 68 [in_i] [facility] Height 2020-03-08 00:00:00 68 [in_i] [facility] Family Practice BMI (Body Mass 2020-03-08 00:00:00 35 kg/m2 [facility] Body Weight 2020-03-08 00:00:00 230 [lb_av] [facility] Family Practice Procedures Procedure Date / Time Performing Clinician Source Performed HOME HEALTH - OTHER 2021-11-12 06:01:00 Doctor Unassigned, [facility] CBC WITH DIFF 2021-09-13 15:45:00 Arthur Fong [place] [facility] SARS-COV-2 COVID-19 2021-09-13 15:24:35 Arthur Fong [facility] VACCINE Medical Branch BOOSTER,0.25ML,IM (MODERNA) Leg Surgery Procedure [facility] Percutaneous Extraction [facility] Family of Kidney Stone with Practice Fragmentation Procedure Plan of Care Planned Activity Planned Date Details Comments Source Future Scheduled 2028-10-21 DTAP/TDAP/TD [facility] 00:[facility]:00 VACCINES (2 - Td or Medical Center Tdap) [code = DTAP/TDAP/TD VACCINES (2 - Td or Tdap)] Future Scheduled 2028-10-21 DTAP/TDAP/TD [facility] - Test 00:00:00 VACCINES (2 - Td or Medical Center Tdap) [code = DTAP/TDAP/TD VACCINES (2 - Td or Tdap)] Future Scheduled 2021-10-03 COVID-19 VACCINE (1) [facility] 09:01:13 [code = COVID-19 Hospital VACCINE (1)] Future Scheduled 2021-10-03 Screening for [facility] Test 09:01:13 malignant neoplasm [facility] of cervix (procedure) [code = 221979138] Future Scheduled 2021-10-03 BREAST CANCER [facility] Test 09:01:13 SCREENING [code = Hospital BREAST CANCER SCREENING] Future Scheduled 2021-10-03 COLONOSCOPY [facility] Test 09:01:13 SCREENING [code = Hospital COLONOSCOPY SCREENING] Future Scheduled 2021-10-03 SHINGLES VACCINES Method ist Test 09:01:13 (#1) [code = Hospital SHINGLES VACCINES (#1)] Future Scheduled 2021-10-03 INFLUENZA VACCINE [facility] Test 09:01:13 [code = INFLUENZA Hospital VACCINE] Future Scheduled 2021-10-03 65+ PNEUMOCOCCAL [facility] Test 09:01:13 VACCINE (1 of 1 - Hospital PPSV23) [code = 65+ PNEUMOCOCCAL VACCINE (1 of 1 - PPSV23)] Future Scheduled 2021-05-[address] [facility] - Test 00:00:00 (#1) [code = Medical Center INFLUENZA VACCINE (#1)] Future Scheduled 2021-05-[address] [facility] - Test 00:00:00 (#1) [code = Medical Center INFLUENZA VACCINE (#1)] Future Scheduled 2020-12-[address] [facility] - Test 00:00:00 measurement Medical Center (procedure) [code = 93696883] Future Scheduled 2020-12-[address] [facility] - Test 00:00:00 measurement Medical Center (procedure) [code = 55009129] Future Scheduled 2020-09-[address] [facility] [facility] - Test 00:00:00 WELLNESS (YEAR 2 or Medical Center FIRST YEAR if no IPPE) [code = MEDICARE ANNUAL WELLNESS (YEAR 2 or FIRST YEAR if no IPPE)] Future Scheduled 2020-09-[address] [facility] - Test 00:00:00 WELLNESS (YEAR 2 or Medical Center FIRST YEAR if no IPPE) [code = MEDICARE ANNUAL WELLNESS (YEAR 2 or FIRST YEAR if no IPPE)] Future Scheduled 2020-09-[address] [facility] - Test 00:00:00 (12+) [code = Medical Center DEPRESSION SCREENING (12+)] Future Scheduled 2020-09-[address] [facility] - Test 00:00:00 (12+) [code = [facility] Center DEPRESSION SCREENING (12+)] Future Scheduled 2006 SHINGLES VACCINES ([address] [facility] - Test 00:00:00 of 2) [code = [facility] Center SHINGLES VACCINES (1 of 2)] Future Scheduled 2006 SHINGLES VACCINES ([address] [facility] - Test 00:00:00 of 2) [code = [facility] Center SHINGLES VACCINES (1 of 2)] Future Scheduled [address] [facility] - Test 00:00:00 (procedure) [code = [facility] 15695583] Future Scheduled [address] [facility] - Test 00:00:00 (procedure) [code = [facility] 33382516] Future Scheduled [address] - Test 00:00:00 malignant neoplasm Medical C enter of cervix (procedure) [code = 772320660] Future Scheduled [address] [facility] - Test 00:00:00 malignant neoplasm Medical C enter of cervix (procedure) [code = 838767357] Future Scheduled [address] [facility] - Test 00:00:00 SCREENING [code = Medical Ce nter HEPATITIS C SCREENING] Future Scheduled [address] [facility] - Test 00:00:00 SCREENING [code = Medical Ce nter HEPATITIS C SCREENING] Future Scheduled 1968 COVID-19 VACCINE (1) [facility] - Test 00:00:00 [code = COVID-[address] VACCINE (1)] Future Scheduled 1968 COVID-19 VACCINE (1) [facility] - Test 00:00:00 [code = COVID-[address] VACCINE (1)] Future Scheduled [address] DIABETIC EYE EXAM [facility] - Test 00:00:00 [code = DIABETIC EYE Medical Center EXAM] Future Scheduled [address] [facility] - Test 00:00:00 examination Medical Center (regime/therapy) [code = 911655955] Future Scheduled 1966 Urine screening for [facility] - Test 00:00:00 protein (procedure) Medical Center [code = 601088676] Future Scheduled 1966 DIABETIC EYE EXAM [facility] - Test 00:00:00 [code = DIABETIC EYE Medical Center EXAM] Future Scheduled [address] [facility] - Test 00:00:00 examination Medical Center (regime/therapy) [code = 684609107] Future Scheduled 1966 Urine screening for [facility] - Test 00:00:00 protein (procedure) Medical Center [code = 629687737] Future Scheduled [address] [facility] - Test 00:00:00 0-64 YRS (1 of 2 - Medical C enter PPSV23) [code = PNEUMOCOCCAL VACCINE 0-64 YRS (1 of 2 - PPSV23)] Future Scheduled [address] [facility] - Test 00:00:00 0-64 YRS (1 of 2 - Medical C enter PPSV23) [code = PNEUMOCOCCAL VACCINE 0-64 YRS (1 of 2 - PPSV23)] Future Scheduled [address] [facility] - Test 00:00:00 malignant neoplasm Medical C enter of breast (procedure) [code = 376401241] Future Scheduled [address] [facility] - Test 00:00:00 malignant neoplasm Medical C enter of colon (procedure) [code = 341321931] Future Scheduled [address] [facility] [facility] - Test 00:00:00 malignant neoplasm Medical C enter of breast (procedure) [code = 915658542] Future Scheduled [address] [facility] - Test 00:00:00 malignant neoplasm Medical C enter of colon (procedure) [code = 755321723] Future Scheduled ORT - XR SHOULDER Ordered: [facility] Test LEFT 1V (CHARGE 07/31/2020 of Medicine ONLY) [code = 58680] Future Scheduled ORT - XR FEMUR RIGHT Ordered: [facility] Test 2V (CHARGE ONLY) 07/31/2020 of Medicine [code = 44815] Future Scheduled COLON CANCER [facility] Test SCREENING: of Medicine COLONOSCOPY [code = COLON CANCER SCREENING: COLONOSCOPY] Future Scheduled MAMMOGRAM ANNUAL [facility] Test [code = MAMMOGRAM of Medicin e ANNUAL] Future Scheduled HEPATITIS C [facility] Test SCREENING [code = of Medicin e HEPATITIS C SCREENING] Future Scheduled HIV SCREENING [code [facility] or [facility] Test = HIV SCREENING] of Medicine Future Scheduled CERVICAL CANCER [facility] C [facility]lege Test SCREENING 3 YEAR of Medicine FOLLOW UP [code = CERVICAL CANCER SCREENING 3 YEAR FOLLOW UP] Future Scheduled ZOSTER VACCINE (1 of [place] [facility] Test 2) [code = ZOSTER of Medicin e VACCINE (1 of 2)] Future Scheduled FLU VACCINE > 6 Postponed from [facility] Test MONTHS [code = FLU 04/15/2020 of Medici ne VACCINE > 6 MONTHS] (Postpone Reason: Patient declined today) Future Scheduled TETANUS SHOT (ADULT) [facility] Test [code = TETANUS SHOT of Medi cine (ADULT)] Encounters Start End Encounter Admission Attending Care Care Encounter Source Date/Time Date/Time Type Type Clinicians Facility Department ID 2020-06-17 Inpatient ER FADY [facility] Internal [id number] [facility] 16:11:00 [facility] Med 2021-11-12 2021-11-12 Orders Doctor ERNANDEZ [id number] Univers 00:00:00 00:00:00 Only Unassigned, KEVIN [id number] [place] [facility] [id number] Michael as [id number] [facility] 009 Branch 2021-09-13 2021-09-13 Office SOWMYA Fong [id number] Univers 09:00:00 09:35:39 Visit [facility] [id number] it y of [place] [id number] Michael as CASA?BLEA [phone] [address] MEDICAL OFFICE BUILDING 2021-07-20 2021-07-25 Inpatient EM TERI Espinoza [facility].01 [id number] 102-2 [facility] 06:16:00 17:17:00 Dimitrios [id number] [facility] 2021-07-20 2021-07-25 Inpatient [address]I [address] MEDI.01 [id number] [facility] 06:16:00 17:17:00 Dimitrios 00 [facility] 2021-06-11 2021-06-11 Outpatient Ilia-Alexeyo [facility] [address] [place] [address] 02:41:00 02:41:00 _A_ [id number] Family Practic e 2021-04-24 2021-04-24 [facility] [id number] 00:00:00 00:00:00 [facility] [id number] [place] [id number] Professio [phone] nal 044 Office Building One 2021-04-22 2021-04-22 [facility] [id number] 00:00:00 00:00:00 [facility] [id number] [place] [id number] Professio [phone] nal 044 Office Building One 2021-04-17 2021-04-17 [facility] [id number] 00:00:00 00:00:00 [facility] [id number] [place] [id number] Professio [phone] nal 044 Office Building One 2021-04-16 2021-04-16 [facility] [id number] 00:00:00 00:00:00 [facility] [id number] [place] [id number] Professio [phone] nal 044 Office Building One 2021-04-11 2021-04-11 Refkathrin Maxwell [facility] [id number] 00:00:00 00:00:00 [facility] [id number] Edward [place] [id number] Professio [phone] nal 044 Office Building One 2021-04-04 2021-04-04 Telephone SOWMYA Fong [id number] 00:00:00 00:00:00 [facility] [id number] [place] [id number] juana [phone] nal 044 Office Building One 2021-04-02 2021-04-02 Transition O[facility] [place] [id number] 00:00:00 00:00:00 of Care Carlyle Malaika [facility] [id number] HOSPITAL [id number] [id number] 2021-03-17 2021-03-17 Orders Doctor OMA [id number] 00:00:00 00:00:00 Only Unassigned, KEVIN [id number] [facility] 4.2.7.2.686 [id number] [id number] 2021-03-14 2021-03-14 Orders Doctor OMA [id number] 00:00:00 00:00:00 Only Unassigned, KEVIN [id number] [facility] 4.2.7.2.686 [id number] [id number] 2021-01-10 2021-01-10 Outpatient Ilia-Mbayo VFP VFP [phone] [facility] 02:10:00 02:10:00 _A_AH 18837 Family Practic e 2020-11-09 2020-11-09 Outpatient Ilia-Mbayo VFP VFP [phone] [facility] 02:29:00 02:29:00 _A_AH 94978 Family Practic e 2020-11-09 2020-11-09 Outpatient Ilia-Mbayo VFP VFP [phone] [facility] 02:29:00 02:29:00 _A_AH 27129 Family Practic e 2020-10-30 2020-10-30 Outpatient Ilia-Mbayo VFP VFP [phone] [facility] 01:03:00 01:03:00 _A_AH 66516 Family Practic e 2020-10-20 2020-10-20 Outpatient Ilia-Mbayo VFP VFP [id number] [facility] 02:58:00 02:58:00 _A_AH 64507 Family Practic e 2020-10-20 2020-10-20 Outpatient Ilia-Mbayo VFP VFP [id number] [facility] 02:58:00 02:58:00 _A_AH 99694 Family Practic e 2020-10-11 2020-10-11 Outpatient Ilia-Mbayo VFP VFP [id number] [facility] 08:19:00 08:19:00 _A_AH 35557 Family Practic e 2020-10-09 2020-10-09 Prudence VFP [place] - [id number] V illage 00:00:00 00:00:00 Ilia-Mbay [facility] Fam erika kong DICTAPHONE MECHANIC: Medical - Practi jomar [address] [email or web address] [facility], [address] [address], [place] [address] , Ph. 2020-09-11 2020-09-11 Outpatient Ilia-Mbayo VFP VFP [id number] [facility] 01:02:00 01:02:00 _A_AH 22221 Family Practic e 2020-09-11 2020-09-11 Outpatient Ilia-Mbayo VFP VFP [id number] [facility] 01:02:00 01:02:00 _A_AH 08121 Family Practic e 2020-08-07 2020-08-07 Outpatient Ilia-Mbayo VFP VFP [id number] [facility] 01:02:00 01:02:00 _A_AH 70163 Family Practic e 2020-07-31 2020-07-31 Office STEVEN Nation [id number] [facility] 14:41:15 16:10:11 Visit [employer] [id number] College Y [id number] Medi danya 600 e 2020-07-03 2020-07-03 Outpatient Ilia-Mbayo VFP VFP [id number] [id number] [facility] 01:02:00 01:02:00 _A_AH 04859 Family Practic e 2020-06-21 2020-06-21 Outpatient Ilia-Mbayo VFP VFP 793 [id number] [facility] 11:37:00 11:37:00 _A_AH 52118 Family Practic e 2020-06-20 2020-06-20 Outpatient Ilia-Mbayo VFP VFP [phone] [facility] 09:07:00 09:07:00 _A_AH 40471 Family Practic e 2020-06-14 2020-06-14 Outpatient Ilia-Mbayo VFP VFP [phone] [facility] 05:17:00 05:17:00 _A_AH 77659 Family Practic e 2020-06-12 2020-06-12 Outpatient Ilia-Mbayo VFP VFP [phone] [facility] 04:56:00 04:56:00 _A_AH 35186 Family Practic e 2020-06-12 2020-06-12 [place]udence VFP [place] - [id number] [place] ill[place] 00:00:00 00:00:00 [facility] erika kong, DICTAPHONE MECHANIC: Medical - Practi c [address] CU[address]_HOU_V@H_ e [place] [address], [place] [id number] , Ph. 2020-06-11 2020-06-11 Outpatient Ilia-Mbayo VFP VFP [phone] [facility] 10:09:00 10:09:00 _A_AH 97832 Family Practic e 2020-05-30 2020-05-30 Outpatient Ilia-Mbayo VFP VFP [phone] [facility] 10:11:00 10:11:00 _A_AH 51403 Family Practic e 2020-05-24 2020-05-24 [place]ence VFP [place] - [id number] V illage 00:00:00 00:00:00 [facility] erika kong, DICTAPHONE MECHANIC: Medical - Practi c [address] CUBA_HOU_V@H_ e [facility], [place] [address], [place] [address] , Ph. 2020-05-05 2020-05-05 Outpatient Ilia-Mbayo VFP VFP [phone] [facility] 09:06:00 09:06:00 _A_AH 78719 Family Practic e 2020-03-14 2020-03-14 Outpatient Ilia-Mbayo VFP VFP [phone] [place] 10:51:00 10:51:00 _A_AH 89919 Family Practic e 2020-03-08 2020-03-08 Prudence [facility] [place] - [id number] V illage 00:00:00 00:00:00 Ilia-Alexey [facility] Gallo erika dilan, DICTAPHONE MECHANIC: Douglas - Carrie hadley [address] VM_HOU_V@H_ e [facility], [address], [place] [address] , Ph. 2019-12-09 2019-12-09 Outpatient Ilia-Alexeyo [address] 05:35:00 05:35:00 _A_AH 70310 Family Practic e 2019-12-09 2019-12-09 Outpatient Ilia-Alexeyo [address] 05:35:00 05:35:00 _A_AH 97084 Family Practic e Results Test Description Test Time Test Comments Results Result Comments Source CBC WITH DIFF 2021-09-13 20:33:13 Test Item Value Reference Range Interpretation Comme nts WBC (test code = 6690-2) See_Comment [A utomated message] The system which ge nerated this result transmit robbie reference range: 4.30 - 1 1.10 10*3/?L. The reference r cecy was not used to interpr et this result as normal/abnor mal. RBC (test code = 789-8) See_Comment [Au tomated message] The system which ge nerated this result transmit robbie reference range: 3.93 - 5 .25 10*6/?L. The reference r cecy was not used to interpr et this result as normal/abnor mal. HGB (test code = 718-7) 12.8 g/dL 11.6-15.0 HCT (test code = 4544-3) 43.1 % 35.7-45.2 MCV (test code = 787-2) 96.2 fL 80.6-95.5 H MCH (test code = 785-6) 28.6 pg 25.9-32.8 MCHC (test code = 786-4) 29.7 g/dL 31.6-35.1 L RDW-SD (test code = 09720-5) 48.3 fL 39.0-49.9 RDW-CV (test code = 788-0) 13.7 % 12.0-15.5 PLT (test code = 777-3) See_Comment [Au tomated message] The system which ge nerated this result transmit robbie reference range: 166 - 35 8 10*3/?L. The reference range was not used to interpret th is result as normal/abnormal . MPV (test code = 24117-4) 10.8 fL 9.5-12.9 NRBC/100 WBC (test code = See_Comment [ Automated message] The [id number]) system which ge nerated this result transmit robbie reference range: 0.0 - 10 .0 /100 WBCs. The reference r cecy was not used to interpr et this result as normal/abnor mal. NRBC x10^3 (test code = <0.01 See_Comment [Au tomated message] The [id number]) system which ge nerated this result transmit robbie reference range: 10*3/?L. The reference range was not u sed to interpret this result as normal/abnormal . GRAN MAT (NEUT) % (test code 75.7 % = 770-8) IMM GRAN % (test code = 0.50 % [id number]) LYMPH % (test code = 736-9) 12.1 % MONO % (test code = 5905-5) 7.4 % EOS % (test code = 713-8) 3.6 % BASO % (test code = 706-2) 0.7 % GRAN MAT x10^3(ANC) (test 6.56 10*3/uL 1.88-7.09 code = 3312687415) IMM GRAN x10^3 (test code = 0.04 10*3/uL 0.00-0.06 5982240327) LYMPH x10^3 (test code = 1.05 10*3/uL 1.32-3.29 L 731-0) MONO x10^3 (test code = 0.64 10*3/uL 0.33-0.92 742-7) EOS x10^3 (test code = 0.31 10*3/uL 0.03-0.39 711-2) BASO x10^3 (test code = 0.06 10*3/uL 0.01-0.07 704-7) Lab Interpretation (test Abnormal code = 07521-1) [facility] [id number] 02:15:00 Test Item Value Reference Range Interpretation Comments GLUCOSE BEDSIDE (test 127 MG/DL 70-110 H Perfor med by certified code = GLUBED) aqua ammonia operator at [facility] GLUCOSE [id number] 02:15:00 Test Item Value Reference Range Interpretation Comments GLUCOSE BEDSIDE (test 140 MG/DL 70-110 H Perfor med by certified code = GLUBED) aqua ammonia operator at [facility] GLUCOSE [id number] 02:15:00 Test Item Value Reference Range Interpretation Comments GLUCOSE BEDSIDE (test 109 MG/DL 70-110 N Perfor med by certified code = GLUBED) aqua ammonia operator at [facility] GLUCOSE [id number] 02:14:00 Test Item Value Reference Range Interpretation Comments GLUCOSE BEDSIDE (test 154 MG/DL 70-110 H Perfor med by certified code = GLUBED) aqua ammonia operator at [facility] GLUCOSE [id number] 02:14:00 Test Item Value Reference Range Interpretation Comments GLUCOSE BEDSIDE (test 108 MG/DL 70-110 N Perfor med by certified code = GLUBED) aqua ammonia operator at [facility] GLUCOSE [id number] 02:14:00 Test Item Value Reference Range Interpretation Comments GLUCOSE BEDSIDE (test 113 MG/DL 70-110 H Perfor med by certified code = GLUBED) aqua ammonia operator at [facility] GLUCOSE [id number] 02:14:00 Test Item Value Reference Range Interpretation Comments GLUCOSE BEDSIDE (test 88 MG/DL 70-110 N Perfor med by certified code = GLUBED) aqua ammonia operator at [facility] GLUCOSE [id number] 02:13:00 Test Item Value Reference Range Interpretation Comments GLUCOSE BEDSIDE (test 104 MG/DL 70-110 N Perfor med by certified code = GLUBED) aqua ammonia operator at [facility] GLUCOSE [id number] 07:41:00 Test Item Value Reference Range Interpretation Comments GLUCOSE BEDSIDE (test 87 MG/DL 70-110 N Perfor med by certified code = GLUBED) aqua ammonia operator at [facility] GLUCOSE [id number] 20:39:00 Test Item Value Reference Range Interpretation Comments GLUCOSE BEDSIDE (test 129 MG/DL 70-110 H Perfor med by certified code = GLUBED) aqua ammonia operator at [facility] GLUCOSE [id number] 17:11:00 Test Item Value Reference Range Interpretation Comments GLUCOSE BEDSIDE (test 76 MG/DL 70-110 N Perfor med by certified code = GLUBED) aqua ammonia operator at [facility] GLUCOSE [id number] 12:12:00 Test Item Value Reference Range Interpretation Comments GLUCOSE BEDSIDE (test 114 MG/DL 70-110 H Perfor med by certified code = GLUBED) aqua ammonia operator at [facility] GLUCOSE [id number] 06:56:00 Test Item Value Reference Range Interpretation Comments GLUCOSE BEDSIDE (test 98 MG/DL 70-110 N Perfor med by certified code = GLUBED) aqua ammonia operator at [facility] GLUCOSE [id number] 19:13:00 Test Item Value Reference Range Interpretation Comments GLUCOSE BEDSIDE (test 136 MG/DL 70-110 H Perfor med by certified code = GLUBED) aqua ammonia operator at [facility] GLUCOSE [id number] 15:29:00 Test Item Value Reference Range Interpretation Comments GLUCOSE BEDSIDE (test 98 MG/DL 70-110 N Perfor med by certified code = GLUBED) aqua ammonia operator at [facility] GLUCOSE [id number] 10:55:00 Test Item Value Reference Range Interpretation Comments GLUCOSE BEDSIDE (test 113 MG/DL 70-110 H Perfor med by certified code = GLUBED) aqua ammonia operator at [facility] GLUCOSE [id number] 08:39:00 Test Item Value Reference Range Interpretation Comments GLUCOSE BEDSIDE (test 138 MG/DL 70-110 H Perfor med by certified code = GLUBED) aqua ammonia operator at [facility] BASIC METABOLIC [id number] 08:30:00 Test Item Value Reference Range Interpretation Comments SODIUM (test code = NA) 146 mEq/L 134-147 N POTASSIUM (test code = 3.9 mEq/L 3.4-5.0 N K) CHLORIDE (test code = 103 mEq/L 100-108 N CL) CARBON DIOXIDE (test 39 mEq/l 21-33 H code = CO2) ANION GAP (test code = 8 0-20 N GAP) GLUCOSE (test code = 83 mg/dL 70-110 GLU) BLOOD UREA NITROGEN 35 mg/dL 7-18 H (test code = BUN) GLOMERULAR FILTRATION 63.0 80-90 L Units of measure = RATE (test code = GFR) ml/mi n/1.73 m2 CREATININE (test code = 0.9 mg/dL 0.6-1.3 N CREAT) CALCIUM (test code = 9.4 mg/dL 8.0-10.5 N CA) THYROID STIMULATING [id number] 08:30:00 Test Item Value Reference Range Interpretation Comments THYROID STIMULATING 6.25 0.42-5.47 H Results in HORMONE (test code = TSH) mi lli-International Units/mL CBC W/AUTO [id number] 08:06:00 Test Item Value Reference Range Interpretation Comments WHITE BLOOD CELL (test code = 5.3 x10 3/uL 4.5-11.0 WBC) RED BLOOD CELL (test code = 3.70 x10 6/uL 3.54-5.02 N RBC) HEMOGLOBIN (test code = HGB) 11.1 g/dL 11.0-15.0 N HEMATOCRIT (test code = HCT) 37.3 % 33.0-45.0 N MEAN CELL VOLUME (test code = 100.8 fL 81.0-99.0 H MCV) MEAN CELL HGB (test code = MCH) 30.0 pg 27.0-33.0 N MEAN CELL HGB CONCETRATION 29.8 g/dL 33.0-37.0 L (test code = MCHC) RED CELL DISTRIBUTION WIDTH CV 14.4 % 11.5-14.5 N (test code = RDW) RED CELL DISTRIBUTION WIDTH SD 52.7 fL 37.0-54.0 N (test code = RDW-SD) PLATELET COUNT (test code = 143 x10 3/uL 150-400 L PLT) MEAN PLATELET VOLUME (test code 11.3 fL 7.0-9.0 H = MPV) NEUTROPHIL % (test code = NT%) 55.0 % 56.0-77.0 L IMMATURE GRANULOCYTE % (test 1.1 % 0.0-2.0 N code = IG%) LYMPHOCYTE % (test code = LY%) 23.0 % 14.0-32.0 N MONOCYTE % (test code = MO%) 13.3 % 4.8-9.0 H EOSINOPHIL % (test code = EO%) 6.9 % 0.3-3.7 H BASOPHIL % (test code = BA%) 0.7 % 0.0-2.0 N NUCLEATED RBC % (test code = 0.0 % 0-0 N NRBC%) NEUTROPHIL # (test code = NT#) 2.93 x10 3/uL 2.0-7.6 N IMMATURE GRANULOCYTE # (test 0.06 x10 3/uL 0.00-0.03 H code = IG#) LYMPHOCYTE # (test code = LY#) 1.23 x10 3/uL 1.0-3.8 N MONOCYTE # (test code = MO#) 0.71 x10 3/uL 0.1-0.8 N EOSINOPHIL # (test code = EO#) 0.37 x10 3/uL 0.0-0.2 H BASOPHIL # (test code = BA#) 0.04 x10 3/uL 0.0-0.2 N NUCLEATED RBC # (test code = 0.00 x10 3/uL 0.0-0.1 N NRBC#) MANUAL DIFF REQUIRED (test code NO = MDIFF) B-TYPE NATRIURETIC [id number] 04:10:00 Test Item Value Reference Range Interpretation Comments B-TYPE NATRIURETIC PEPTIDE (test 82.0 PG/ML 0-100 N code = BNP) BASIC METABOLIC [id number] 04:00:00 Test Item Value Reference Range Interpretation Comments SODIUM (test code = NA) 145 mEq/L 134-147 N POTASSIUM (test code = 4.8 mEq/L 3.4-5.0 N K) CHLORIDE (test code = 107 mEq/L 100-108 N CL) CARBON DIOXIDE (test 33 mEq/l 21-33 N code = CO2) ANION GAP (test code = 10 0-20 N GAP) GLUCOSE (test code = 123 mg/dL 70-110 H GLU) BLOOD UREA NITROGEN 46 mg/dL 7-18 H (test code = BUN) GLOMERULAR FILTRATION 63.0 80-90 L Units of measure = RATE (test code = GFR) ml/mi n/1.73 m2 CREATININE (test code = 0.9 mg/dL 0.6-1.3 N CREAT) CALCIUM (test code = 8.5 mg/dL 8.0-10.5 N CA) TROP-I HIGH [id number] 04:00:00 Test Item Value Reference Range Interpretation Comments TROP-I HIGH 9 ng/L 0-34 N CAUTION: Units of the SENSITIVITY (test current te st methodology code = TROPIHS) (ng/L) diffe rfrom the prior test methodolog y (ng/mL) by a factor of 1000. 99th Percentile Upper Reference Limit (URL): Females: 34 ng/LMales: 54 ng/L In order to distin guish acute elevations of h igh sensitivitytrop onin from other clinical conditions, the FourthUnive rsal Definition of M yocardial Infarction stre ssesclinical assessment and the demonstration o f a rise and/orfall in s erial troponin result s above the URL. These resu lts were obtained using Siemens Atellica IM TnI Hreagent. Results from di fferent methodologies s hould not becompared to o ne another as quantitative results and URLs mayvary by method. CBC W/AUTO [id number] 03:47:00 Test Item Value Reference Range Interpretation Comments WHITE BLOOD CELL (test code = 10.0 x10 3/uL 4.5-11.0 N WBC) RED BLOOD CELL (test code = 3.71 x10 6/uL 3.54-5.02 N RBC) HEMOGLOBIN (test code = HGB) 11.4 g/dL 11.0-15.0 N HEMATOCRIT (test code = HCT) 37.3 % 33.0-45.0 N MEAN CELL VOLUME (test code = 100.5 fL 81.0-99.0 H MCV) MEAN CELL HGB (test code = MCH) 30.7 pg 27.0-33.0 N MEAN CELL HGB CONCETRATION 30.6 g/dL 33.0-37.0 L (test code = MCHC) RED CELL DISTRIBUTION WIDTH CV 14.6 % 11.5-14.5 H (test code = RDW) RED CELL DISTRIBUTION WIDTH SD 53.7 fL 37.0-54.0 N (test code = RDW-SD) PLATELET COUNT (test code = 221 x10 3/uL 150-400 N PLT) MEAN PLATELET VOLUME (test code 11.7 fL 7.0-9.0 H = MPV) NEUTROPHIL % (test code = NT%) 72.5 % 56.0-77.0 N IMMATURE GRANULOCYTE % (test 0.6 % 0.0-2.0 N code = IG%) LYMPHOCYTE % (test code = LY%) 13.4 % 14.0-32.0 L MONOCYTE % (test code = MO%) 11.4 % 4.8-9.0 H EOSINOPHIL % (test code = EO%) 1.8 % 0.3-3.7 N BASOPHIL % (test code = BA%) 0.3 % 0.0-2.0 N NUCLEATED RBC % (test code = 0.0 % 0-0 N NRBC%) NEUTROPHIL # (test code = NT#) 7.24 x10 3/uL 2.0-7.6 N IMMATURE GRANULOCYTE # (test 0.06 x10 3/uL 0.00-0.03 H code = IG#) LYMPHOCYTE # (test code = LY#) 1.34 x10 3/uL 1.0-3.8 N MONOCYTE # (test code = MO#) 1.14 x10 3/uL 0.1-0.8 H EOSINOPHIL # (test code = EO#) 0.18 x10 3/uL 0.0-0.2 N BASOPHIL # (test code = BA#) 0.03 x10 3/uL 0.0-0.2 N NUCLEATED RBC # (test code = 0.00 x10 3/uL 0.0-0.1 N NRBC#) MANUAL DIFF REQUIRED (test code NO = MDIFF) - XR CHEST 1 [id number] 00:00:00 [facility] LETICIA WADE : 1955 Sex: F FAX: Anatoly Kuhn MD [phone] [place]: St: REG Name: LETICIA WADE [facility] : 1955 Age/S: 65/F [address] [place] [address] Blvd Unit #: [id number] Loc: [place] [address] Phys: Anatoly Kuhn MD Acct: [id number] Dis Date: Status: REG ER PHONE #: [phone] Exam Date: 07/20/2021352 FAX #: [phone] Reason: SOB EXAMS: CPT CODE: [id number] XR CHEST 1 V 59570 PROCEDURE INFORMATION: Exam: XR Chest Exam date and time: 07/20/2021 3:48 AM Age: 65 years old Clinical indication: Shortness of breath; Additional info: SOB TECHNIQUE: Imaging protocol: XR of the chest. Views: 1 view. COMPARISON: No relevant prior studies available. FINDINGS: Lungs: Scattered bilateral airspace opacities are present. Pleural spaces: Unremarkable. No pleural effusion. No pneumothorax. Heart/Mediastinum: No cardiomegaly. Bones/joints: No acute abnormality. IMPRESSION: Scattered bilateral airspace opacities suggestive of multifocal infectious/inflammatory process. at 0405 Reported and signed by: Collin Celeste M.D. CC: Anatoly Kuhn MD Technologist: Charles Hope RT(R) Trnscrd Date/Time/By: 07/20/2021 (404) : By: Luz [email or web address] Orig Print D/T: S: 07/20/2021 (404)PAGE 1 Signed ReportPOCT-GLUCOSE [id number] 16:29:00 Test Item Value Reference Range Interpretation Comments POC-GLUCOSE METER 119 mg/dL 70-110 H : TESTED A T [facility] 6703 ([facility]) (test code = [facility], 1538) [address]38: Pipe Line Inspector/Techni alton ID = [id number] for Marleen Smith POCT-GLUCOSE [id number] 12:48:00 Test Item Value Reference Range Interpretation Comments POC-GLUCOSE METER 188 mg/dL 70-110 H : TESTED A T [facility] 6720 (BEAKER) (test code = [facility], 1538) 77875: Pipe Line Inspector/Techni alton ID = [id number] for Marleen Smith POCT-GLUCOSE [id number] 08:45:00 Test Item Value Reference Range Interpretation Comments POC-GLUCOSE METER 154 mg/dL 70-110 H : TESTED A T [facility] 6720 (BEAKER) (test code = [facility], 1538) 47869: Pipe Line Inspector/Techni alton ID = [id number] for Marleen Smith BASIC METABOLIC [id number] 05:37:00 Test Item Value Reference Range Interpretation [...] S NOT APPLICABLE FOR DIALYSIS PATIEN TS. Pipe Line Inspector ID - KASIA [facility] W/PLT COUNT & AUTO [id number] 05:22:00 Test Item Value Reference Range Interpretation [...] PERCENT (BEAKER) (test code = 2801) POCT-GLUCOSE [id number] 20:57:00 Test Item Value Reference Range Interpretation Comments POC-GLUCOSE METER 136 mg/dL 70-110 H : TESTED A T [facility] 6720 (BEAKER) (test code = [facility], [facility]8) 02510: Pipe Line Inspector/Techni alton ID = [id number] for AN TIFFANIE FARIA POCT-GLUCOSE [id number] 16:49:00 Test Item Value Reference Range Interpretation Comments POC-GLUCOSE METER 104 mg/dL 70-110 : TESTED A T [facility] 6720 (BEAKER) (test code = [facility], [facility]8) 22157: Pipe Line Inspector/Techni alton ID = [id number] for RA MOS, ALEKSEY POCT-GLUCOSE [id number] 12:14:00 Test Item Value Reference Range Interpretation Comments POC-GLUCOSE METER 142 mg/dL 70-110 H : TESTED A T [facility] 6720 (BEAKER) (test code = [facility], [facility]8) 96389: Pipe Line Inspector/Techni alton ID = [id number] for RA MOS, ALEKSEY POCT-GLUCOSE [id number] 08:04:00 Test Item Value Reference Range Interpretation Comments POC-GLUCOSE METER 152 mg/dL 70-110 H : TESTED A T [facility] 6720 (BEAKER) (test code = [facility], [facility]8) 74902: Pipe Line Inspector/Techni alton ID = [id number] for RA MOS, ALEKSEY POCT-GLUCOSE [id number] 06:06:00 Test Item Value Reference Range Interpretation Comments POC-GLUCOSE METER 115 mg/dL 70-110 H : TESTED A T [facility] 6720 (BEAKER) (test code = [facility], [facility]) 86322: Pipe Line Inspector/Techni alton ID = [id number] for SA RICKEY DOMINIQUE CBC W/PLT COUNT & AUTO [id number] 04:19:00 Test Item Value Reference Range Interpretation [...] PERCENT (BEAKER) (test code = 2801) POCT-GLUCOSE [id number] 00:40:00 Test Item Value Reference Range Interpretation Comments POC-GLUCOSE METER 120 mg/dL 70-110 H : Notified RN/MD: (OLIVERIO) (test code = TESTED AT [facility] 6720 153) [facility], [address]: Pipe Line Inspector/Techni alton ID = [id number] for SA RICKEY DOMINIQUE POCT-GLUCOSE [id number] 18:10:00 Test Item Value Reference Range Interpretation Comments POC-GLUCOSE METER 166 mg/dL 70-110 H : [facility] (test code = [facility], 153) 76368: Pipe Line Inspector/Techni alton ID = [id number] for RA MOS, ALEKSEY POCT-GLUCOSE [id number] 12:06:00 Test Item Value Reference Range Interpretation Comments POC-GLUCOSE METER 157 mg/dL 70-110 H : [facility] (test code = [facility], 153) 75307: Pipe Line Inspector/Techni alton ID = [id number] for RA MOS, ALEKSEY POCT-GLUCOSE [id number] 08:51:00 Test Item Value Reference Range Interpretation Comments POC-GLUCOSE METER 168 mg/dL 70-110 H : [facility] (test code = [facility], 153) 11605: Pipe Line Inspector/Techni alton ID = [id number] for RA MOS, ALEKSEY CBC W/PLT COUNT & AUTO [id number] 05:10:00 Test Item Value Reference Range Interpretation [...] PERCENT (BEAKER) (test code = 2801) POCT-GLUCOSE [id number] 01:33:00 Test Item Value Reference Range Interpretation Comments POC-GLUCOSE METER 107 mg/dL 70-110 : TESTED A T [facility] 6720 (BEAKER) (test code = [facility], 1538) 89605: Pipe Line Inspector/Techni alton ID = [id number] for AN TIFFANIE FARIA POCT-GLUCOSE [id number] 11:19:00 Test Item Value Reference Range Interpretation Comments POC-GLUCOSE METER 155 mg/dL 70-110 H : TESTED A T [facility] 6720 (BEAKER) (test code = [facility], 1538) 06442: Pipe Line Inspector/Techni alton ID = [id number] for [place], FLUORO, NON-SPECIFIC, UP TO 1 [id number] 08:27:37Reason for exam:- >Dislocated left shoulder (OR 18)Fluoroscopic unit utilized for a procedure performed in the OR. No interpretation was requested. Refer to the operative report for findings. Refer to PACS for patient radiation dose information.POCT- GLUCOSE [id number] 05:40:00 Test Item Value Reference Range Interpretation Comments POC-GLUCOSE METER 145 mg/dL 70-110 H : TESTED A T [facility] 6720 (BEAKER) (test code = [facility], 1538) 80271: Pipe Line Inspector/Techni alton ID = [id number] for AN NOR, TIFFANIE POCT-GLUCOSE [id number] 23:05:00 Test Item Value Reference Range Interpretation Comments POC-GLUCOSE METER 128 mg/dL 70-110 H : TESTED A T [facility] 6720 (BEAKER) (test code = [facility], 1538) 57542: Pipe Line Inspector/Techni alton ID = [id number] for AN NOR, TIFFANIE HEMOGLOBIN AND [id number] 17:48:00 Test Item Value Reference Range Interpretation Comments HEMOGLOBIN (BEAKER) (test code = 7.7 GM/DL 11.2-15.7 L 410) HEMATOCRIT (BEAKER) (test code = 26.4 % 34.1-44.9 L 411) Pipe Line Inspector ID - [id number]-GLUCOSE [id number] 11:44:00 Test Item Value Reference Range Interpretation Comments POC-GLUCOSE METER 116 mg/dL 70-110 H : TESTED A T [facility] 6720 (BEAKER) (test code = [facility], 1538) 80542: Pipe Line Inspector/Techni alton ID = [id number] for Wi byron, [place] BASIC METABOLIC [id number] 07:08:00 Test Item Value Reference Range Interpretation [...] S NOT APPLICABLE FOR DIALYSIS PATIEN TS. Pipe Line Inspector ID - KASIA MPOCT-GLUCOSE [id number] 07:02:00 Test Item Value Reference Range Interpretation Comments POC-GLUCOSE METER 112 mg/dL 70-110 H : TESTED A T [facility] 6720 (BEAKER) (test code = [facility] ID, 1538) [id number]: Pipe Line Inspector/Techni alton ID = [id number] for ELIAN ZENG CBC W/PLT COUNT & AUTO [id number] 06:24:00 Test Item Value Reference Range Interpretation Comments WHITE BLOOD CELL COUNT 11.7 K/ L 3.5-10.5 H (BEAKER) (test code = 775) RED BLOOD CELL COUNT 2.51 M/ L 3.93-5.22 L (BEAKER) (test code = 761) HEMOGLOBIN (BEAKER) 7.7 GM/DL 11.2-15.7 L Patient had (test code = 410) surgery th e day before [id number] HEMATOCRIT (BEAKER) 26.5 % 34.1-44.9 L (test [...] GRANULOCYTES-RELATIVE PERCENT (BEAKER) (test code = 2801) LACTIC ACID, [id number] 06:09:00 Test Item Value Reference Range Interpretation Comments LACTATE BLOOD VENOUS (2) (BEAKER) 0.95 mmol/L 0.50-2.20 (test code = 2872) Pipe Line Inspector ID - KASIA MPOCT-GLUCOSE [id number] 00:13:00 Test Item Value Reference Range Interpretation Comments POC-GLUCOSE METER 114 mg/dL 70-110 H : TESTED A T [facility] 6720 (BEAKER) (test code = [facility], 153) 59161: Pipe Line Inspector/Techni alton ID = [id number] for ERIC DEL CASTILLOMARVINMS ELIAN POCT-GLUCOSE [id number] 15:36:00 Test Item Value Reference Range Interpretation Comments POC-GLUCOSE METER 153 mg/dL 70-110 H : TESTED A T [facility] 6720 (BEAKER) (test code = [facility], 153) 79446: Pipe Line Inspector/Techni alton ID = [id number] for [facility], EL[place]OW, 3 VIEWS, [id number] 13:36:00Reason for exam:->elbow painFINAL REPORT Radiograph of [...] no acute fracture, or dislocation. There is voib-xv-tyyhcwbd osteoarthritis, as well as mild enthesopathy at [...] Rubio Verified Date/Time: 06/21/2020 13:36:41 Reading Location: [facility] Radiology Reading Room RAD, SHOULDER, 1 VIEW, [id number] 13:36:00Reason for exam:->left shouler painFINAL REPORT Radiograph [...] no acute fracture, or dislocation. There is rurj-sr-xhtdswcm osteoarthritis, as well as mild enthesopathy at [...] left elbow, and both hips. Signed: Jennifer Rubioeport Verified Date/Time: 06/21/2020 13:36:41 Reading Location: [facility] Radiology Reading Room RAD, PELVIS, 1 OR 2 [id number] 13:36:00Single viewReason for exam:->femur fxShould this be performed at the bedside?->YesFINAL [...] no acute fracture, or dislocation. There is iicu-bc-yvabnaxj osteoarthritis, as well as mild enthesopathy at [...] Rubio Verified Date/Time: 06/21/2020 13:36:41 Reading Location: [facility] Radiology Reading Room POCT-GLUCOSE [id number] 12:40:00 Test Item Value Reference Range Interpretation Comments POC-GLUCOSE METER 189 mg/dL 70-110 H : TESTED A T [facility] 6720 ([facility]) (test code = RONNY STARK ID, 1538) 77894: Pipe Line Inspector/Techni alton ID = [id number] for NEDA DYSONMELCHOR ALFREDO CBC (HEMOGRAM ONLY)2020-06-21 11:17:00 Test Item Value Reference Range Interpretation Comments WHITE BLOOD CELL COUNT 27.9 K/ L 3.5-10.5 H ([facility]) (test code = 775) RED BLOOD CELL [...] CELLS (BEAKER) (test code = 413) POCT-GLUCOSE [id number] 09:57:00 Test Item Value Reference Range Interpretation Comments POC-GLUCOSE METER 172 mg/dL 70-110 H : TESTED A T [facility] 6720 (BEAKER) (test code = [facility], 1538) 16511: Pipe Line Inspector/Techni alton ID = [id number] for JEFE ALVAREZ FL, FLUORO, NON-SPECIFIC, UP TO 1 [id number] 09:21:38Reason for exam:- >right femur fractureFluoroscopic unit utilized for a procedure performed in the OR. No interpretation was requested. Refer to the operative report for findings. Refer to PACS for patient radiation dose information.POCT-GLUCOSE [id number] 23:46:00 Test Item Value Reference Range Interpretation Comments POC-GLUCOSE METER 136 mg/dL 70-110 H : TESTED A T [facility] 6720 (BEAKER) (test code = [facility], 1538) 95281: Pipe Line Inspector/Techni alton ID = [id number] for HANS JOSE POCT-GLUCOSE [id number] 18:51:00 Test Item Value Reference Range Interpretation Comments POC-GLUCOSE METER 158 mg/dL 70-110 H : TESTED A T [facility] 6720 ([place]) (test code = RONNY STARK ID, 1538) 62067: Pipe Line Inspector/Techni alton ID = [id number] for NEDA STAHL [facility], MULTI, PHARM, [id number] 17:07:00Unlisted Reason for Exam - Click Yes and Enter Reason Below->No Eval for CADFINAL REPORT PROCEDURE: MYOCARDIAL PERFUSION PLANAR IMAGING (2-Day Stress/Rest)CPT CODE: 58242 INDICATION: evaluate for presence of CAD, preoperative [...] MDReport Verified Date/Time: 06/20/2020 17:07:36 Reading Location: [address] P327[facility] Reading Room POCT- GLUCOSE [id number] 12:32:00 Test Item Value Reference Range Interpretation Comments POC-GLUCOSE METER 128 mg/dL 70-110 H : TESTED A T [facility] 6720 (BEAKER) (test code = [employer], 1538) 85828: Pipe Line Inspector/Techni alton ID = [id number] for PRINCESS ED POCT-GLUCOSE [id number] 06:18:00 Test Item Value Reference Range Interpretation Comments POC-GLUCOSE METER 133 mg/dL 70-110 H : TESTED A T [facility] 6720 (BEAKER) (test code = [employer] [place], 1538) 34614: Pipe Line Inspector/Techni alton ID = [id number] for TIFFANIE HARDING VITAMIN B12 AND [id number] 06:10:00 Test Item Value Reference Range Interpretation Comments VITAMIN B12 (BEAKER) (test code = 467 pg/mL 213-816 774) FOLATE (BEAKER) (test code = 362) 16.70 ng/mL >=7.00 Pipe Line Inspector ID - [id number] 06:01:00 Test Item Value Reference Range Interpretation Comments PHOSPHORUS (BEAKER) (test code = 2.4 mg/dL 2.3-4.7 604) Pipe Line Inspector ID - [id number] 06:01:00 Test Item Value Reference Range Interpretation Comments MAGNESIUM (BEAKER) (test code = 1.7 mg/dL 1.6-2.6 627) Pipe Line Inspector ID - EDASICOMPREHENSIVE METABOLIC [id number] 06:01:00 Test Item Value Reference Range Interpretation [...] S NOT APPLICABLE FOR DIALYSIS PATIEN TS. Pipe Line Inspector ID - EDASICALCIUM, [id number] 05:15:00 Test Item Value Reference Range Interpretation Comments CALCIUM IONIZED (BEAKER) (test 1.15 mmol/L 1.12-1.27 code = 698) PH, BLOOD (BEAKER) (test code = 7.42 1810) CBC W/PLT COUNT & AUTO [id number] 05:10:00 Test Item Value Reference Range Interpretation [...] PERCENT (BEAKER) (test code = 2801) POCT-GLUCOSE [id number] 21:18:00 Test Item Value Reference Range Interpretation Comments POC-GLUCOSE METER 105 mg/dL 70-110 : TESTED Malaika Almendarez [facility] 6720 (BEAKER) (test code = RONNY STARK ID, 1538) 91139: Pipe Line Inspector/Techni alton ID = [id number] for TIFFANIE HARDING POCT-GLUCOSE [id number] 13:16:00 Test Item Value Reference Range Interpretation Comments POC-GLUCOSE METER 131 mg/dL 70-110 H : TESTED Malaika T [facility] 6720 ([place]) (test code = RONNY STARK ID, 1538) 37381: Pipe Line Inspector/Techni alton ID = [id number] for Wi Ashwin matthews SARS-COV2/RT-PCR ([facility])2020-06-19 11:25:00 Test Item Value Reference Range Interpretation Comments SARS-COV2/RT-PCR (test Negative Not Detected, Negative, code = 5484724) See external report for linked test SARS-COV-2 PERFORMING LAB [facility] NICK (test code = 2178580) Negative result for this test determines that [...] 564(g) of the Act.Fact Sheet for Healthcare Providers:https://www.Ajungo/sites/default/files/product/documents/Fact_Lee Ann lamendarezh_BW_Rnunrqaxf_Uoei_DZIM-JnT-7.pdfFact Sheet for Healthcare Patients:https://www.[employer]ung[employer]/sites/default/files/product/ documents/Uzes_Fosjg_Mirtburs_Zore_PWAB-SdW-9.pdfPerforming Laboratory:[facility], [place] [address]DBEI-PUYNODI METER 2020-06-19 05:59:00 Test Item Value Reference Range Interpretation Comments POC-GLUCOSE METER 122 mg/dL 70-110 H : TESTED A T [facility] 6720 (BEAKER) (test code = RONNY Munoz [facility], 1538) 33410: Pipe Line Inspector/Techni alton ID = [id number] for ELIAN ZENG [id number] 04:43:00 Test Item Value Reference Range Interpretation Comments PHOSPHORUS (BEAKER) (test code = 2.9 mg/dL 2.3-4.7 604) Pipe Line Inspector ID - [id number] 04:43:00 Test Item Value Reference Range Interpretation Comments MAGNESIUM (BEAKER) (test code = 1.9 mg/dL 1.6-2.6 627) Pipe Line Inspector ID - EDASICOMPREHENSIVE METABOLIC [id number] 04:43:00 Test Item Value Reference Range Interpretation [...] S NOT APPLICABLE FOR DIALYSIS PATIEN TS. Pipe Line Inspector ID - EDASICBC W/PLT COUNT & AUTO [id number] 04:20:00 Test Item Value Reference Range Interpretation [...] PERCENT (BEAKER) (test code = 2801) CALCIUM, [id number] 04:11:00 Test Item Value Reference Range Interpretation Comments CALCIUM IONIZED (BEAKER) (test 1.16 mmol/L 1.12-1.27 code = 698) PH, BLOOD (BEAKER) (test code = 7.37 1810) POCT-GLUCOSE [id number] 21:49:00 Test Item Value Reference Range Interpretation Comments POC-GLUCOSE METER 113 mg/dL 70-110 H : TESTED A T [facility] 6720 (BEAKER) (test code = [facility], 153) 84103: Pipe Line Inspector/Techni alton ID = [id number] for ELIAN ZENG POCT-GLUCOSE [id number] 16:10:00 Test Item Value Reference Range Interpretation Comments POC-GLUCOSE METER 96 mg/dL 70-110 : TESTED A T [facility] 6720 (BEAKER) (test code = [facility], 153) 26605: Pipe Line Inspector/Techni alton ID = [id number] for CAMERON PIERCE HEMOGLOBIN [id number] 11:26:00 Test Item Value Reference Range Interpretation Comments HEMOGLOBIN A1C (BEAKER) (test code = 5.4 % 4.3-6.1 368) POCT-GLUCOSE [id number] 11:19:00 Test Item Value Reference Range Interpretation Comments POC-GLUCOSE METER 135 mg/dL 70-110 H : TESTED A T [facility] 6720 (BEAKER) (test code = [facility], 1538) 12097: Pipe Line Inspector/Techni alton ID = [id number] for CAMERON HILL TROPONIN [id number] 10:05:00 Test Item Value Reference Range Interpretation [...] failure, acidosis, acute neurological disease, and persistent tachyarrhythmia.Pipe Line Inspector ID - NUBIAGPOCT-GLUCOSE METER 2020-06-18 08:09:00 Test Item Value Reference Range Interpretation Comments POC-GLUCOSE METER 120 mg/dL 70-110 H : TESTED A T [facility] 6720 (BEAKER) (test code = [facility], 1538) 71134: Pipe Line Inspector/Techni alton ID = [id number] for ACMERON HILL T4, [id number] 08:07:00 Test Item Value Reference Range Interpretation Comments FREE T4 (BEAKER) (test code = 655) < ng/dL 0.70-1.48 L Pipe Line Inspector ID - ROSDAVINGTSH/FREE T4 IF [id number] 07:15:00 Test Item Value Reference Range Interpretation Comments THYROID STIMULATING HORMONE 76.986 uIU/mL 0.350-4.940 H (BEAKER) (test code = 772) Pipe Line Inspector ID - [id number] 07:00:00 Test Item Value Reference Range Interpretation Comments PHOSPHORUS (BEAKER) (test code = 3.5 mg/dL 2.3-4.7 604) Pipe Line Inspector ID - [id number] 07:00:00 Test Item Value Reference Range Interpretation Comments MAGNESIUM (BEAKER) (test code = 1.9 mg/dL 1.6-2.6 627) Pipe Line Inspector ID - EDASICOMPREHENSIVE METABOLIC [id number] 07:00:00 Test Item Value Reference Range Interpretation [...] S NOT APPLICABLE FOR DIALYSIS PATIEN TS. Pipe Line Inspector ID - EDFLORENCIO [id number] 06:52:00 Test Item Value Reference Range Interpretation [...] failure, acidosis, acute neurological disease, and persistent tachyarrhythmia.Pipe Line Inspector ID - EDASIB-TYPE NATRIURETIC FACTOR (BNP)2020-06-18 06:50:00 Test Item Value Reference Range Interpretation Comments B-TYPE NATRIURETIC PEPTIDE (BEAKER) 35 pg/mL 0-100 (test code = 700) Pipe Line Inspector ID - EDASICBC W/PLT COUNT & AUTO [id number] 06:33:00 Test Item Value Reference Range Interpretation [...] PERCENT (BEAKER) (test code = 2801) CALCIUM, [id number] 05:58:00 Test Item Value Reference Range Interpretation Comments CALCIUM IONIZED (BEAKER) (test 1.14 mmol/L 1.12-1.27 code = 698) PH, BLOOD (BEAKER) (test code = 7.36 1810) POCT-GLUCOSE [id number] 21:55:00 Test Item Value Reference Range Interpretation Comments POC-GLUCOSE METER 187 mg/dL 70-110 H : TESTED A T [facility] 6720 (BEAKER) (test code = RONNY STARK ID, 1538) 53072: Pipe Line Inspector/Techni alton ID = [id number] for ERIC DEL CASTILLOMARVINROCÍO JOHNSONAN COMPREHENSIVE METABOLIC [id number] 21:39:00 Test Item Value Reference Range Interpretation [...] S NOT APPLICABLE FOR DIALYSIS PATIEN TS. Pipe Line Inspector ID - DBCBC W/PLT COUNT & AUTO [id number] 21:23:00 Test Item Value Reference Range Interpretation [...] code = 2801) STOOL CULTURE + SHIGA [id number] 10:48:00 Test Item Value Reference Range Interpretation Comments CULTURE ([facility]) No Salmonella, Shigella (test code = 1095) or Campylobacter isolated Unable to test for Shiga Toxin 1 due to insufficient growth of specimen.Unable to test for Shiga Toxin 2 due to insufficient growth of specimen.STOOL PATH [id number] 13:49:00 Test Item Value Reference Range Interpretation Comments PATHOGEN EXAM CHARGED ([facility]) (test Done code = 2381) POCT-GLUCOSE [id number] 11:36:00 Test Item Value Reference Range Interpretation Comments POC-GLUCOSE METER 106 mg/dL 70-110 TESTED AT [facility] 6720 ([facility]) (test code = [facility] 1538) [address] POCT-GLUCOSE [id number] 08:21:00 Test Item Value Reference Range Interpretation Comments POC-GLUCOSE METER 110 mg/dL 70-110 TESTED AT [facility] 6720 ([facility]) (test code = [facility] 5624) [address] [id number] 05:17:00 Test Item Value Reference Range Interpretation Comments PHOSPHORUS (BEAKER) (test code = 3.6 mg/dL 2.3-4.7 604) [id number] 05:17:00 Test Item Value Reference Range Interpretation Comments MAGNESIUM (BEAKER) (test code = 1.6 mg/dL 1.6-2.6 627) BASIC METABOLIC [id number] 05:17:00 Test Item Value Reference Range Interpretation [...] PATIEN TS. CBC W/PLT COUNT & AUTO [id number] 05:09:00 Test Item Value Reference Range Interpretation [...] L 0.00-0.20 (test code = 417) 0.00PROTHROMBIN [id number] 04:57:00 Test Item Value Reference Range Interpretation [...] POC-GLUCOSE METER 100 mg/dL 70-110 TESTED AT [place] [address] ([facility]) (test code = RONNY Munoz [facility] 1538) [address] BASIC METABOLIC [id number] 18:30:00 Test Item Value Reference Range Interpretation [...] NOT APPLICABLE FOR DIALYSIS PATIEN TS. POCT-GLUCOSE [id number] 15:40:00 Test Item Value Reference Range Interpretation Comments POC-GLUCOSE METER 95 mg/dL 70-110 TESTED AT [place] [address] ([facility]) (test [facility] = [facility] [address] 1538) POCT-GLUCOSE [id number] 11:47:00 Test Item Value Reference Range Interpretation Comments POC-GLUCOSE METER 101 mg/dL 70-110 TESTED AT [place] [address] ([facility]) (test code = [facility] Tammy [facility] 1538) [address] POCT-GLUCOSE [id number] 07:32:00 Test Item Value Reference Range Interpretation Comments POC-GLUCOSE METER 88 mg/dL 70-110 TESTED AT [place] [address] ([facility]) (test code = [facility] Tammy [facility] [address] 1538) CBC W/PLT COUNT & AUTO [id number] 07:32:00 Test Item Value Reference Range Interpretation [...] 0.00-0.20 (test code = 417) 0.00BASI METABOLIC [id number] 06:23:00 Test Item Value Reference Range Interpretation [...] S NOT APPLICABLE FOR DIALYSIS PATIEN TS. [id number] 06:23:00 Test Item Value Reference Range Interpretation Comments MAGNESIUM (BEAKER) (test code = 1.6 mg/dL 1.6-2.6 627) [id number] 06:23:00 Test Item Value Reference Range Interpretation Comments PHOSPHORUS (BEAKER) (test code = 3.6 mg/dL 2.3-4.7 604) PROTHROMBIN [id number] 06:15:00 Test Item Value Reference Range Interpretation [...] POC-GLUCOSE METER 108 mg/dL 70-110 TESTED AT [facility] 6720 (BEAKER) (test code = RONNY AQUINO 1538) [address] BASIC METABOLIC [id number] 18:12:00 Test Item Value Reference Range Interpretation [...] NOT APPLICABLE FOR DIALYSIS PATIEN TS. POCT-GLUCOSE [id number] 17:53:00 Test Item Value Reference Range Interpretation Comments POC-GLUCOSE METER 165 mg/dL 70-110 H TESTED AT [place] [address] ([facility]) (test code = RONNY STARK [place] 1538) [address] PROTHROMBIN [id number] 13:53:00 Test Item Value Reference Range Interpretation Comments PROTIME (BEAKER) (test code = 14.7 seconds 11.7-14.7 759) INR (BEAKER) (test code = 370) 1.2 <=5.9 RECOMMENDED COUMADIN/WARFARIN INR THERAPY RANGESSTANDARD DOSE: 2.0 - 3.0 Includes: PROPHYLAXIS forvenous thrombosis, systemic embolization; TREATMENT for venous thrombosis and/or pulmonary embolus.HIGH RISK: Target INR is 2.5-3.5 for patients with mechanical heart valves.POCT-GLUCOSE [id number] 11:49:00 Test Item Value Reference Range Interpretation Comments POC-GLUCOSE METER 120 mg/dL 70-110 H TESTED AT [facility] 6720 ([facility]) (test code = RONNY STARK [place] 1538) [address] POCT-GLUCOSE [id number] 07:58:00 Test Item Value Reference Range Interpretation Comments POC-GLUCOSE METER 94 mg/dL 70-110 TESTED AT [facility] 6720 (BEAKER) (test code = [place] [id number] 2868) [id number] 07:23:00 Test Item Value Reference Range Interpretation Comments PHOSPHORUS (BEAKER) (test code = 3.6 mg/dL 2.3-4.7 604) [id number] 07:23:00 Test Item Value Reference Range Interpretation Comments MAGNESIUM (BEAKER) (test code = 1.8 mg/dL 1.6-2.6 627) BASIC METABOLIC [id number] 07:23:00 Test Item Value Reference Range Interpretation [...] PATIEN TS. CBC W/PLT COUNT & AUTO [id number] 07:15:00 Test Item Value Reference Range Interpretation [...] L 0.00-0.20 (test code = 417) 0.00POCT-GLUCOSE [id number] 20:44:00 Test Item Value Reference Range Interpretation Comments POC-GLUCOSE METER 164 mg/dL 70-110 H TESTED AT [facility] 6720 (BEAKER) (test code = RONNY AQUINO 1538) [address] BASIC METABOLIC [id number] 19:53:00 Test Item Value Reference Range Interpretation [...] 358) GLUCOSE RANDOM 157 mg/dL 70-105 H ([facility]) (test code = 652) CALCIUM (BEAKER) 9.8 mg/dL 8.4-10.2 (test code = 697) EGFR (AKER) (test 48 mL/min/1.73 ESTIMA ROBBIE GFR IS code = 1092) sq m NOT ACCURATE CREATININE CLEARANCE IN PREDICTING GLOMERULAR FILTRATION RATE . ESTIMATED GFR I S NOT APPLICABLE FOR DIALYSIS PATIEN TS. POCT-GLUCOSE [id number] 17:25:00 Test Item Value Reference Range Interpretation Comments POC-GLUCOSE METER 97 mg/dL 70-110 TESTED AT [facility] 67 ([facility]) (test code = [facility] [address] 1538) CLOSTRIDIUM DIFFICILE TOXIN [id number] 15:24:00 Test Item Value Reference Range Interpretation Comments CLOSTRIDIUM DIFFICILE TOXIN, PCR Not Detected Not Detected ([facility]) (test code = 1525) This [...] of a positive result is not recommended.POCT-GLUCOSE [id number] 12:30:00 Test Item Value Reference Range Interpretation Comments POC-GLUCOSE METER 110 mg/dL 70-110 TESTED AT [facility] 6720 (BEAKER) (test code = RONNY Munoz [place] 1538) [address] POCT-GLUCOSE [id number] 07:56:00 Test Item Value Reference Range Interpretation Comments POC-GLUCOSE METER 94 mg/dL 70-110 TESTED AT [facility] 6720 (BEAKER) (test code = RONNY Munoz [facility] [address] 1538) HEMOGLOBIN [id number] 07:48:00 Test Item Value Reference Range Interpretation Comments HEMOGLOBIN A1C (BEAKER) (test code = 5.4 % 4.3-6.1 368) CBC W/PLT COUNT & AUTO [id number] 06:42:00 Test Item Value Reference Range Interpretation [...] K/ L 0.00-0.20 (test code = 417) [id number] 06:06:00 Test Item Value Reference Range Interpretation Comments PHOSPHORUS (BEAKER) (test code = 3.7 mg/dL 2.3-4.7 604) [id number] 06:06:00 Test Item Value Reference Range Interpretation Comments MAGNESIUM (BEAKER) (test code = 1.4 mg/dL 1.6-2.6 L 627) BASIC METABOLIC [id number] 06:06:00 Test Item Value Reference Range Interpretation [...] NOT APPLICABLE FOR DIALYSIS PATIEN TS. POCT-GLUCOSE [id number] 21:04:00 Test Item Value Reference Range Interpretation Comments POC-GLUCOSE METER 100 mg/dL 70-110 TESTED AT [place] [address] ([facility]) (test code = RONNY Munoz [place] 1538) [address] BASIC METABOLIC [id number] 20:03:00 Test Item Value Reference Range Interpretation [...] NOT APPLICABLE FOR DIALYSIS PATIEN TS. POCT-GLUCOSE [id number] 15:45:00 Test Item Value Reference Range Interpretation Comments POC-GLUCOSE METER 130 mg/dL 70-110 H TESTED AT [place] [address] ([facility]) (test code = RONNY Munoz [facility] 1538) [address] POCT-GLUCOSE [id number] 11:20:00 Test Item Value Reference Range Interpretation Comments POC-GLUCOSE METER 102 mg/dL 70-110 TESTED AT [place] [address] ([facility]) (test code = [facility] Tammy [place] 1538) [address] HEMOGLOBIN [id number] 08:50:00 Test Item Value Reference Range Interpretation Comments HEMOGLOBIN A1C (BEAKER) (test code = 5.6 % 4.3-6.1 368) [id number] 05:44:00 Test Item Value Reference Range Interpretation Comments PHOSPHORUS (BEAKER) (test code = 3.4 mg/dL 2.3-4.7 604) [id number] 05:44:00 Test Item Value Reference Range Interpretation Comments MAGNESIUM (BEAKER) (test code = 1.7 mg/dL 1.6-2.6 627) BASIC METABOLIC [id number] 05:44:00 Test Item Value Reference Range Interpretation [...] PATIEN TS. CBC W/PLT COUNT & AUTO [id number] 05:39:00 Test Item Value Reference Range Interpretation [...] L 0.00-0.20 (test code = 417) 0.00POCT-GLUCOSE [id number] 23:15:00 Test Item Value Reference Range Interpretation Comments POC-GLUCOSE METER 83 mg/dL 70-110 TESTED AT [place] [address] ([facility]) (test code = [facility] [address] 1538) POCT-GLUCOSE [id number] 17:19:00 Test Item Value Reference Range Interpretation Comments POC-GLUCOSE METER 82 mg/dL 70-110 TESTED AT [place] [address] ([facility]) (test code = [facility] [address] 1538) POCT-GLUCOSE [id number] 12:57:00 Test Item Value Reference Range Interpretation Comments POC-GLUCOSE METER 124 mg/dL 70-110 H TESTED AT [place] [address] ([facility]) (test code = [facility] 1538) [address] HEMOGLOBIN [id number] 10:12:00 Test Item Value Reference Range Interpretation Comments HEMOGLOBIN A1C (BEAKER) (test code = 5.6 % 4.3-6.1 368) CBC W/PLT COUNT & AUTO [id number] 06:14:00 Test Item Value Reference Range Interpretation [...] K/ L 0.00-0.20 (test code = 417) [id number] 05:43:00 Test Item Value Reference Range Interpretation Comments PHOSPHORUS (BEAKER) (test code = 4.1 mg/dL 2.3-4.7 604) [id number] 05:43:00 Test Item Value Reference Range Interpretation Comments MAGNESIUM (BEAKER) (test code = 1.9 mg/dL 1.6-2.6 627) BASIC METABOLIC [id number] 05:43:00 Test Item Value Reference Range Interpretation [...] NOT APPLICABLE FOR DIALYSIS PATIEN TS. POCT-GLUCOSE [id number] 05:12:00 Test Item Value Reference Range Interpretation Comments POC-GLUCOSE METER 89 mg/dL 70-110 TESTED AT [facility] 6720 [facility] (test code = RONNY Munoz [facility] [address] 1538) POCT-GLUCOSE [id number] 00:07:00 Test Item Value Reference Range Interpretation Comments POC-GLUCOSE METER 92 mg/dL 70-110 TESTED AT [facility] [address] (BEAKER) (test code = [facility] Tammy [facility] [address] 1538) [id number] 23:51:00 Test Item Value Reference Range Interpretation [...] is 2.5-3.5 for patients with mechanical heart valves.[id number] 23:49:00 Test Item Value Reference Range Interpretation Comments MAGNESIUM (BEAKER) 1.9 mg/dL 1.6-2.6 Specimen slightly (test code = 627) hemolyzed [id number] 23:49:00 Test Item Value Reference Range Interpretation Comments PHOSPHORUS (BEAKER) 3.4 mg/dL 2.3-4.7 Specimen slightly (test code = 604) hemolyzed BASIC METABOLIC [id number] 23:49:00 Test Item Value Reference Range Interpretation [...] PATIEN TS. CBC W/PLT COUNT & AUTO [id number] 23:38:00 Test Item Value Reference Range Interpretation [...] 0.00-0.20 (test code = 417) 0.00URINALYSIS W/ [id number] 22:57:00 Test Item Value Reference Range Interpretation [...] 1574) SOURCE(BEAKER) (test code = Urine, Perez 8587)
[2021-12-02 09:58] LABS: Protime INR 1.14
[2021-12-02 10:12] LABS: Albumin 2.1 g/dL (3.4-5.0); Bilirubin Total 2.3 mg/dL (0.2-1.0); Potassium 3.2 mmol/L (3.5-5.1); Protein, Total 6.7 g/dL (6.4-8.2)
[2021-12-02 10:19] LABS: Absolute Lymphocytes (CBC) 0.3 K/uL (0.7-4.9); Hematocrit 41.8 % (36.0-45.0); Lymphocytes % 1.5 % (15.3-44.8); MPV 10.9 fL (7.6-11.3); RBC Red Blood Cell Count 4.87 M/uL (3.86-4.86)
[2021-12-02] MEDS ORDERED: METRONIDAZOLE 500mg IVPB 500 MG/100 ML BAG IV ONE (10:33)
[2021-12-02] MEDS ORDERED: NA CHLORIDE 0.9% 2,000 ML ONE (10:33)
[2021-12-02] MEDS ORDERED: CEFEPIME 2 GM VIAL ONE (10:50)
[2021-12-02] MEDS ORDERED: NA CHLORIDE 0.9% 100 ML IV ONE ×2 (10:51→20:26)
[2021-12-02] MEDS ORDERED: VANCOMYCIN 1.5 GM in NA CHLORIDE 0.9% 500 ML IVPB ONE (11:00)
[2021-12-02 11:22] LABS: Blood Morphology Comment NOT SEEN (NOT SEEN); Platelet Estimate DECR; Platelets, Giant FEW
[2021-12-02 11:46] LABS: SARS-COV-2 RT PCR NEGATIVE (NEGATIVE)
[2021-12-02] MEDS ORDERED: NA CHLORIDE 0.9% 1,000 ML ONE ×3 (12:29→18:24)
--- NOTE | 2021-12-02 13:08 | RAD REPORT ---
EXAM DESCRIPTION: CT - Chest Abd Pelvis Wo Con - 12/02/2021 12:49 pm CLINICAL HISTORY: AMS/Sepsis;Congestion COMPARISON: Thorax Wo Con dated 03/22/2021; Chest For Pe Angio dated 09/22/2020; Abdomen Pelvis W Cont rast dated 04/25/2021 TECHNIQUE: During dynamic enhancement using 100 milliliters nonionic IV contrast, axial 5 millimeter thick images of the chest, abdomen and pelvis were obtained. Biphasic technique was utilized through the abdomen. Oral contrast was administered. All CT scans are performed using dose optimization technique as appropriate and may include automated exposure control or mA/KV adjustment according to patient size. FINDINGS: Thyromegaly again noted. Extensive baseline interstitial thickening is present in both lung sommer, more pronounced on the rig ht. There is right hemithorax volume loss relative to the left also seen as stable. Scattered areas o f nodularity in the lung parenchyma show no change in size. No endobronchial lesions seen. Increased wound glass opacities are present in the left lung field. Respiratory motion degradation decreases ov erall sensitivity of assessment. Increased interstitial opacification noted in the lower left lung fi eld and in the posterior lower right lung field compared to the prior study. Cardiomegaly without pericardial effusion seen. Right shift of the heart and mediastinal structures h as not changed. No pneumothorax or pleural effusion. No chest wall mass or abnormal axillary lymphad enopathy seen. Mediastinal and hilar lymph node pattern has not changed. No bulky lymphadenopathy se en. Pulmonary arteries are prominent. The liver, spleen and pancreas show no significant findings. Gallbladder is well filled and contains multiple gallstones. No biliary tree dilatation. Right kidney is larger than the left. Function cannot be assessed on a noncontrast study. A 15-18 mil limeter cluster of multiple calcifications seen in the calices in parenchyma of the lower right kidne y. There is moderate dilatation of the pelvis and calices present. Multiple 3-5 mm mid right renal ca lyx calculi are present. Approximately 2 centimeter calcification is seen layering in the dependent p ortion of the dilated pelvis. There is a 15 millimeter oval calcification at the right UPJ. More dist ally the right ureter is not abnormally dilated. A few nonobstructing calyx and parenchymal calculi n oted on the left. Punctate 1-2 mm size calcifications seen in the non dilated left renal pelvis. No a drenal abnormalities. Urinary bladder is fully contracted around a Perez catheter. Uterus has a lobulated contour that may indicate presence of 1 or more fibroids. Atrophic ovaries are identified. No acute stomach or small bowel finding. Sigmoid anastomotic site shows no acute finding. Large amoun t of stool is present dilating the rectum to 9 cm. Sigmoid stool volume is moderate. No colon mass le sions seen. No free air, free fluid or inflammatory stranding. No hernia, mass or bulky lymphadenopathy. Disc and bone degenerative changes are present. No pathologic bone process seen. IVC filter is in swati ce. IMPRESSION: Patient has extensive baseline interstitial fibrotic change. Additional areas of interst itial opacification and ground-glass opacification are present compared to 03/22/2021 imaging. Progressive interstitial fibrotic disease possible. Superimposed interstitial and alveolar infiltrate should be considered. There is no large new mass or consolidation. Multi stone cholelithiasis as previously seen. No biliary tree dilatation. Approximately 15 millimeter right-side UPJ calculus with moderate dilatation of the pelvis and calice s. The UPJ calculus may be partially or intermittently obstructive. Pelvis and calices are only sligh tly larger than seen on 04/25/2021 imaging. Patient has multiple additional nonobstructing pelvis, ca lyx and parenchymal calculi on the right. No acute GI or process seen. There is a large stool volume dilating the rectum to 9 cm.
--- NOTE | 2021-12-02 15:06 | ER ---
Nurse's Notes [facility] Name: Rosio Jain Age: 66 yrs Sex: Female : 1955 Arrival Date: 12/02/2021 Time: 09:39 Bed 15 Private MD: Diagnosis: Other specified sepsis;Sepsis, unspecified organism;Severe sepsis with septic shock;Pneumonia, unspecified organism;Acute renal failure Presentation: 12/02 09:19 Chief complaint: EMS states: body aches, fatigue, chills and weakness x 3 days. Pt is vg1 on Home O2 at home with 3 L NC, EMS states on scene pt was 86% on 3 L NC; EMS placed pt on Non re breather pt is at 97%. Pt is also bed bound. 09:19 Coronavirus screen: Vaccine status: Patient reports receiving the 2nd dose of the covid vg1 vaccine. Client denies travel out of the [place] in the last 14 days. chills, difficulty breathing, muscle pain, shortness of breath, Client presents with at least one sign or symptom that may indicate coronavirus-19. Standard/surgical mask placed on the client. Ebola Screen: Patient negative for fever greater than or equal to 101.5 degrees Fahrenheit, and additional compatible Ebola Virus Disease symptoms. Initial Sepsis Screen: Does the patient meet any 2 criteria? RR > 20 per min. HR > 90 bpm. Yes Does the patient have a suspected source of infection? No. Patient's initial sepsis screen is negative. Risk Assessment: Do you want to hurt yourself or someone else? Patient reports no desire to harm self or others. Onset of symptoms was November 29, 2021. 09:19 Method Of Arrival: EMS: [facility] 1 09:19 Acuity: DYAN 2 vg1 09:19 Care prior to arrival: IV initiated. 20 GA, in the left hand. vg1 09:19 Care prior to arrival: Medication(s) given: Normal saline infusion, 700 ml. vg1 Triage Assessment: :20 General: Appears uncomfortable, obese, unkempt, Behavior is drowsy. Pain: Complains of vg1 pain in generalized body. EENT: No signs and/or symptoms were reported regarding the EENT system. Neuro: Level of Consciousness is awake, alert, obeys commands, Oriented to person, place, time, situation. 09:20 Cardiovascular: Patient's skin is warm and dry. Respiratory: Airway is patent vg1 Respiratory effort is even, labored, Respiratory pattern is tachypnea Breath sounds with crackles bilaterally. GI: Abdomen is obese, Reports lower abdominal pain, upper abdominal pain. : Reports incontinence. Derm: Skin is pink, warm \\T\\ dry. Musculoskeletal: Circulation, motion, and sensation intact. Historical: - Allergies: 09:51 NKA; vg1 - Home Meds: 09:51 alprazolam 1 mg Oral tab [Active]; citalopram 20 mg tab 1 tab once daily [Active]; vg1 folic acid 400 mcg Oral tab 1 tab once daily [Active]; furosemide 20 mg Oral tab 1 tab once daily [Active]; levothyroxine 175 mcg tab [Active]; metoprolol tartrate 50 mg Oral tab [Active]; valsartan-hydrochlorothiazide 320-25 mg Oral tab 1 tab once daily [Active]; Xarelto 20 mg Oral tab 1 tab once daily [Active]; zolpidem 10 mg Oral tab 1 tab once daily [Active]; - PMHx: 09:51 ADD/ADHD; Anxiety; Asthma; COPD; Diabetes - NIDDM; Hypertension; Hypothyroidism; PE; vg1 - Immunization history:: Client reports receiving the 2nd dose of the Covid vaccine. - Social history:: Smoking status: Patient denies any tobacco usage or history of. Screenin:20 Abuse screen:. Nutritional screening: No deficits noted. Tuberculosis screening: No vg1 symptoms or risk factors identified. Fall Risk No fall in past 12 months (0 pts). No secondary diagnosis (0 pts). IV access (20 points). Ambulatory Aid- None/Bed Rest/Nurse Assist (0 pts). Gait- Normal/Bed Rest/Wheelchair (0 pts) Mental Status- Oriented to own ability (0 pts). Total Torres Fall Scale indicates No Risk (0-24 pts). Assessment: 09:20 Reassessment: SEE TRIAGE. vg1 09:30 Reassessment: Pt was on sheets from home that had a strong odor or urine; pt sheets vg1 appeared to have pet fur and dirt and food; according to spouse, stated pt has been weak, fatigue, loss of appetite and SOB x 3 days. Also stated about a year ago pt fx Right hip and has had physical therapy but has not be compliant. Spouse also stated has someone to come to house to help take care of pt. 09:50 Reassessment: RT at bedside; took non re breather off and placed on 4L NCpt at 93%. vg1 10:20 Reassessment: Patient appears in no apparent distress at this time. No changes from vg1 previously documented assessment. Patient and/or family updated on plan of care and expected duration. Pain level reassessed. glenroy care performed; brief changed; linen changed. Pt buttocks and labia appear to be reddened and nonblanchable. 11:34 Reassessment: Patient appears in no apparent distress at this time. No changes from vg1 previously documented assessment. Patient and/or family updated on plan of care and expected duration. Pain level reassessed. resting with eyes closed; responds to verbal stimuli. 12:43 Reassessment: back from CT. vg1 12:45 Reassessment: Patient appears in no apparent distress at this time. No changes from vg1 previously documented assessment. Patient and/or family updated on plan of care and expected duration. Pain level reassessed. pt resting with eyes closed; responds to verbal stimuli. 14:45 Reassessment: Patient appears in no apparent distress at this time. No changes from vg1 previously documented assessment. Patient and/or family updated on plan of care and expected duration. Pain level reassessed. 15:45 Reassessment: Patient appears in no apparent distress at this time. No changes from vg1 previously documented assessment. Patient and/or family updated on plan of care and expected duration. Pain level reassessed. 17:00 Reassessment: Patient appears in no apparent distress at this time. No changes from vg1 previously documented assessment. Patient and/or family updated on plan of care and expected duration. Pain level reassessed. pt appears to be diaphoretic. Provider notified. 17:58 Reassessment: Patient appears in no apparent distress at this time. Patient and/or vg1 family updated on plan of care and expected duration. Pain level reassessed. Pt resting with eyes closed; responds to painful stimuli; Provider notified. Dr Contreras contacted pt spouse and advised spouse to come to ED due to pt critical condition, spouse responded 'I guess I can go up there'. When asked spouse pt code status spouse responded with 'I have no idea about that information'. 18:15 Reassessment: Notified Dr Noble of pt status and received VO to administer 1 L NS vg1 bolus. Vital Signs: 09:19 BP 104 / 59; Pulse 125; Resp 36; Temp 100.9(O); Pulse Ox 97% on Non-rebreather mask; vg1 Weight 136.08 kg; Height 5 ft. 9 in. (175.26 cm); 09:30 BP 87 / 62; Pulse 121; Resp 33; Pulse Ox 96% on 4 lpm NC; vg1 10:00 BP 77 / 50; Pulse 123; Resp 36; Pulse Ox 95% on 4 lpm NC; vg1 10:55 BP 76 / 53; Pulse 122; Resp 33; Pulse Ox 92% on 4 lpm NC; vg1 11:00 BP 87 / 54; Pulse 121; Resp 33; Pulse Ox 95% on 4 lpm NC; vg1 11:15 BP 88 / 56; Pulse 119; Resp 32; Pulse Ox 97% on 4 lpm NC; vg1 11:30 BP 88 / 52; Pulse 119; Resp 32; Pulse Ox 97% on 4 lpm NC; vg1 11:45 BP 82 / 54; Pulse 120; Resp 24; Pulse Ox 97% on 4 lpm NC; vg1 12:00 BP 86 / 54; Pulse 119; Resp 20; Pulse Ox 98% on 4 lpm NC; vg1 12:15 BP 80 / 54; Pulse 119; Resp 22; Pulse Ox 98% on 4 lpm NC; vg1 12:45 BP 84 / 51; Pulse 117; Resp 20; Pulse Ox 96% on 4 lpm NC; vg1 15:20 BP 83 / 47; Pulse 120; Resp 26; Pulse Ox 98% on 4 lpm NC; ll1 15:30 BP 68 / 41; Pulse 120; Resp 30; Pulse Ox 94% on 4 lpm NC; vg1 15:35 BP 71 / 43; Pulse 122; Resp 32; Pulse Ox 94% on 4 lpm NC; vg1 15:40 BP 72 / 40; Pulse 121; Resp 30; Pulse Ox 94% on 4 lpm NC; vg1 15:45 BP 84 / 45; Pulse 123; Resp 30; Pulse Ox 94% on 4 lpm NC; vg1 15:50 BP 84 / 46; Pulse 123; Resp 31; Pulse Ox 94% on 4 lpm NC; vg1 15:55 BP 84 / 45; Pulse 123; Resp 30; Pulse Ox 93% on 4 lpm NC; vg1 16:00 BP 74 / 47; Pulse 123; Resp 30; Pulse Ox 94% on 4 lpm NC; vg1 16:05 BP 83 / 46; Pulse 123; Resp 26; Pulse Ox 95% on 4 lpm NC; vg1 16:10 BP 83 / 43; Pulse 123; Resp 30; Pulse Ox 95% on 4 lpm NC; vg1 16:15 BP 85 / 48; Pulse 125; Resp 30; Pulse Ox 95% on 4 lpm NC; vg1 16:20 BP 86 / 51; Pulse 125; Resp 29; Pulse Ox 95% on 4 lpm NC; vg1 16:25 BP 86 / 54; Pulse 127; Resp 30; Pulse Ox 95% on 4 lpm NC; vg1 16:30 BP 86 / 50; Pulse 128; Resp 29; Pulse Ox 95% on 4 lpm NC; vg1 16:35 BP 91 / 50; Pulse 127; Resp 30; Pulse Ox 94% on 4 lpm NC; vg1 16:35 BP 91 / 50; Pulse 127; Resp 30; Pulse Ox 94% on 4 lpm NC; vg1 16:40 BP 87 / 43; Pulse 127; Resp 29; Pulse Ox 94% on 4 lpm NC; vg1 16:45 BP 85 / 44; Pulse 128; Resp 30; Pulse Ox 93% on 4 lpm NC; vg1 16:50 BP 86 / 61; Pulse 129; Resp 30; Pulse Ox 93% on 4 lpm NC; vg1 16:55 BP 78 / 51; Pulse 129; Resp 29; Pulse Ox 94% on 4 lpm NC; vg1 17:00 BP 79 / 56; Pulse 131; Resp 29; Pulse Ox 95% on 4 lpm NC; vg1 17:05 BP 78 / 44; Pulse 130; Resp 29; Pulse Ox 95% on 4 lpm NC; vg1 17:10 BP 83 / 51; Pulse 130; Resp 29; Pulse Ox 95% on 4 lpm NC; vg1 17:11 Temp 100.9(R); vg1 17:15 BP 88 / 64; Pulse 130; Resp 29; Pulse Ox 95% on 4 lpm NC; vg1 17:20 BP 81 / 51; Pulse 131; Resp 29; Pulse Ox 94% on 4 lpm NC; vg1 17:25 BP 80 / 50; Pulse 130; Resp 29; Pulse Ox 95% on 4 lpm NC; vg1 17:30 BP 79 / 37; Pulse 130; Resp 29; Pulse Ox 95% on 4 lpm NC; vg1 18:05 BP 85 / 52; Pulse 132; Resp 28; Pulse Ox 96% on 4 lpm NC; vg1 09:19 Body Mass Index 44.30 (136.08 kg, 175.26 cm) vg1 ED Course: 09:20 Inserted saline lock: 20 gauge in right wrist, using aseptic technique. Blood collected.vg1 09:20 Arm band placed on. vg1 09:39 Patient arrived in ED. vg1 09:40 Initial lab(s) drawn, by me, sent to lab. First set of blood cultures drawn by me. vg1 09:44 Ben Contreras MD is Attending Physician. kdr 09:46 Dominga Hanna, RN is Primary Nurse. vg1 09:47 EKG done, by ED staff, reviewed by Ben Contreras MD. mb7 09:47 Patient has correct armband on for positive identification. Bed in low position. Call mb7 light in reach. Side rails up X 1. Adult w/ patient. Door closed. Noise minimized. Warm blanket given. 09:51 Triage completed. vg1 09:55 CBC with Diff Sent. mb7 09:55 CMP Sent. mb7 09:55 Lactate Sent. mb7 09:55 Protime (+inr) Sent. mb7 09:55 Ptt, Activated Sent. mb7 10:15 Assisted provider with central line placement. Set up central line tray. Triple lumen vg1 line placed in right femoral. Line placed by Ben Contreras MD Placement verified by blood return, Dressed with Tegaderm, Blood was collected. Patient tolerated well. 11:16 Perez cath inserted, using sterile technique, 16 Fr., by ny, balloon inflated, to mb7 gravity drainage, clamped. returned cloudy urine. Patient tolerated well. 11:45 Notified ED physician of a critical lab result(s). lactic acid 3.8. ll1 12:38 COVID-19/FLU A+B (Document "Date of Onset" if Symptomatic) Sent. vg1 12:38 Blood Culture Adult (2) Sent. vg1 12:48 CT Chest Abdomen Pelvis W/O Contrast In Process Unspecified. EDMS 15:04 Prince Kasper MD is Hospitalizing Provider. kdr 18:36 Patient admitted, IV remains in place. vg1 19:52 Primary Nurse role handed off by Dominga Hanna, RN cs9 20:02 Huma Chu RN is Primary Nurse. st1 22:09 report was given to MARK Melendrez. st1 Administered Medications: 10:35 Drug: Flagyl (metroNIDAZOLE) 500 mg Volume: 100 ml; Route: IVPB; Rate: 200 ml/hr; vg1 Infused Over: 30 mins; Site: right femoral; 11:05 Follow up: IV Status: Completed infusion; IV Intake: 100ml vg1 10:35 Drug: NS 0.9% 1000 ml Route: IV; Rate: 1 bolus; Site: right femoral; vg1 11:35 Follow up: IV Status: Completed infusion; IV Intake: 1000ml vg1 10:35 Drug: NS 0.9% 1000 ml Route: IV; Rate: 1 bolus; Site: right femoral; vg1 11:35 Follow up: IV Status: Completed infusion; IV Intake: 1000ml vg1 11:15 Drug: vancoMYCIN 1.5 grams Route: IVPB; Infused Over: 2 hrs; Site: right femoral; vg1 13:15 Follow up: IV Status: Completed infusion; IV Intake: 500ml vg1 11:23 Drug: Cefepime 2 grams Route: IVPB; Rate: 200 ml/hr; Infused Over: 30 mins; Site: right vg1 wrist; 12:00 Follow up: IV Status: Completed infusion vg1 12:56 Drug: NS 0.9% 1000 ml Route: IV; Rate: 1 bolus; Site: right femoral; vg1 14:00 Follow up: IV Status: Completed infusion; IV Intake: 1000ml vg1 15:19 Drug: NS 0.9% 1000 ml Route: IV; Rate: 200 ml/hr; Site: right femoral; ll1 15:34 Drug: Levophed (norepinephrine) (4 mg/250 mL D5W 4 mcg/min {Note: started at 5 ll1 mcg/min.} Route: IV; Rate: calculated rate; Site: right femoral; 17:58 Drug: Tylenol Suppository 650 mg Route: MD; vg1 18:28 Drug: NS 0.9% 1000 ml Route: IV; Rate: 1 bolus; Site: right femoral; vg1 Intake: 11:05 IV: 100ml; Total: 100ml. vg1 11:35 IV: 1000ml; Total: 1100ml. vg1 11:35 IV: 1000ml; Total: 2100ml. vg1 13:15 IV: 500ml; Total: 2600ml. vg1 14:00 IV: 1000ml; Total: 3600ml. vg1 Outcome: 15:06 Decision to Hospitalize by Provider. kdr 18:35 Admitted to ICU Other ER HOLD vg1 18:35 critical 18:35 Instructed on the need for admit. 22:45 Patient left the ED. st1 Signatures: Dispatcher [employer] EDMS Ben Contreras MD MD kdr Garcia, Victoria, RN RN vg1 Khoa Carreon RN RN [id number] Kasie Hastings Mary mb7 Huma Chu, RN RN st1 Corrections: (The following items were deleted from the chart) 09:51 09:19 Chief complaint: EMS states: body aches, fatigue, chills and weakness x 3 days. vg1 Pt is on Home O2 at home with 3 L NC, EMS states on scene pt was 86% on 3 L NC; EMS placed pt on Non re breather pt is at 97% vg1 11:28 10:20 Flagyl (metroNIDAZOLE) 500 mg 100 ml IVPB at 200 ml/hr in right femoral over 30 vg1 mins 100 ml vg1 11:30 09:19 Coronavirus screen: Vaccine status: Patient reports receiving the 2nd dose of the vg1 covid vaccine. Client denies travel out of the [place] in the last 14 days. chills, difficulty breathing, muscle pain, shortness of breath, Client presents with at least one sign or symptom that may indicate coronavirus-19. Standard/surgical mask placed on the client. vg1 11:33 11:17 BP 87 / 54 R Arm Large; Pulse 114bpm; Resp 33bpm; Pulse Ox 97%; mb7 vg1 12:59 12:35 Reassessment: Patient appears in no apparent distress at this time. No changes vg1 from previously documented assessment. Patient and/or family updated on plan of care and expected duration. Pain level reassessed. Patient is alert, oriented x 3, equal unlabored respirations, skin warm/dry/pink. vg1 17:11 10:20 Reassessment: Patient appears in no apparent distress at this time. No changes vg1 from previously documented assessment. Patient and/or family updated on plan of care and expected duration. Pain level reassessed. Patient is alert, oriented x 3, equal unlabored respirations, skin warm/dry/pink. vg1 17:13 10:20 Reassessment: Patient appears in no apparent distress at this time. No changes vg1 from previously documented assessment. Patient and/or family updated on plan of care and expected duration. Pain level reassessed. Patient is alert, oriented x 3, equal unlabored respirations, skin warm/dry/pink. glenroy care performed; brief changed; linen changed. Pt buttocks and labia appear to be reddened and nonblanchable. vg1 17:13 11:34 Reassessment: Patient appears in no apparent distress at this time. No changes vg1 from previously documented assessment. Patient and/or family updated on plan of care and expected duration. Pain level reassessed. Patient is alert, oriented x 3, equal unlabored respirations, skin warm/dry/pink. vg1 17:13 12:45 Reassessment: Patient appears in no apparent distress at this time. No changes vg1 from previously documented assessment. Patient and/or family updated on plan of care and expected duration. Pain level reassessed. Patient is alert, oriented x 3, equal unlabored respirations, skin warm/dry/pink. vg1 17:13 13:45 Reassessment: Patient appears in no apparent distress at this time. No changes vg1 from previously documented assessment. Patient and/or family updated on plan of care and expected duration. Pain level reassessed. Patient is alert, oriented x 3, equal unlabored respirations, skin warm/dry/pink. vg1 17:14 13:45 Reassessment: Patient appears in no apparent distress at this time. No changes vg1 from previously documented assessment. Patient and/or family updated on plan of care and expected duration. Pain level reassessed. resting with eyes closed. Pt responds to verbal stimuli vg1 17:14 14:45 Reassessment: Patient appears in no apparent distress at this time. No changes vg1 from previously documented assessment. Patient and/or family updated on plan of care and expected duration. Pain level reassessed. vg1
--- NOTE | 2021-12-02 15:06 | EDPHYS ---
Physician Documentation [facility] Name: Rosio Jain Age: 66 yrs Sex: Female : 1955 Arrival Date: 12/02/2021 Time: 09:39 Bed 15 Private MD: ED Physician Ben Contreras HPI: 12/03 08:33 This 66 yrs old Female presents to ER via EMS with complaints of General Weakness. kdr 08:33 AMS -weakness, not feeling well for a few days. Onset: The symptoms/episode kdr began/occurred gradually, 3 day(s) ago. Severity of symptoms: At their worst the symptoms were moderate severe in the emergency department the symptoms are unchanged. The patient has not experienced similar symptoms in the past. It is unknown whether or not the patient has recently seen a physician. Historical: - Allergies: 12/02 09:51 NKA; vg1 - Home Meds: 09:51 alprazolam 1 mg Oral tab [Active]; citalopram 20 mg tab 1 tab once daily [Active]; vg1 folic acid 400 mcg Oral tab 1 tab once daily [Active]; furosemide 20 mg Oral tab 1 tab once daily [Active]; levothyroxine 175 mcg tab [Active]; metoprolol tartrate 50 mg Oral tab [Active]; valsartan-hydrochlorothiazide 320-25 mg Oral tab 1 tab once daily [Active]; Xarelto 20 mg Oral tab 1 tab once daily [Active]; zolpidem 10 mg Oral tab 1 tab once daily [Active]; - PMHx: 09:51 ADD/ADHD; Anxiety; Asthma; COPD; Diabetes - NIDDM; Hypertension; Hypothyroidism; PE; vg1 - Immunization history:: Client reports receiving the 2nd dose of the Covid vaccine. - Social history:: Smoking status: Patient denies any tobacco usage or history of. ROS: 12/03 08:33 Constitutional: Negative for fever, chills, and weight loss. kdr Unable to obtain ROS due to altered mental status. Exam: 12/02 12:58 ECG was reviewed by the Attending Physician. kdr 12/03 08:33 Constitutional: This is a well developed, well nourished patient kdr Constitutional: The patient appears lethargic, listless, obese, obviously ill, unkempt. Chest/axilla: Inspection: Palpation: Axilla: Neuro: Orientation: Not oriented to person, place, time. 08:33 Neck: Trachea midline, no thyromegaly or masses palpated, and no cervical kdr lymphadenopathy. Supple, full range of motion without nuchal rigidity, or vertebral point tenderness. No Meningismus. Chest/axilla: Normal chest wall appearance and motion. Nontender with no deformity. No lesions are appreciated. Cardiovascular: Regular rate and rhythm with a normal S1 and S2. No gallops, murmurs, or rubs. Normal PMI, no JVD. No pulse deficits. Abdomen/GI: Soft, non-tender, with normal bowel sounds. No distension or tympany. No guarding or rebound. No evidence of tenderness throughout. Back: No spinal tenderness. No costovertebral tenderness. Full range of motion. Skin: Warm, dry with normal turgor. Normal color with no rashes, no lesions, and no evidence of cellulitis. MS/ Extremity: Pulses equal, no cyanosis. Neurovascular intact. Full, normal range of motion. 08:33 Respiratory: the patient does not display signs of respiratory distress, Respirations: normal, Breath sounds: rales, that are mild, are scattered. 08:33 Abdomen/GI: Inspection: obese Bowel sounds: diminished, in all quadrants, Palpation: soft, mild abdominal tenderness, in all quadrants. Vital Signs: 12/02 09:19 BP 104 / 59; Pulse 125; Resp 36; Temp 100.9(O); Pulse Ox 97% on Non-rebreather mask; vg1 Weight 136.08 kg; Height 5 ft. 9 in. (175.26 cm); 09:30 BP 87 / 62; Pulse 121; Resp 33; Pulse Ox 96% on 4 lpm NC; vg1 10:00 BP 77 / 50; Pulse 123; Resp 36; Pulse Ox 95% on 4 lpm NC; vg1 10:55 BP 76 / 53; Pulse 122; Resp 33; Pulse Ox 92% on 4 lpm NC; vg1 11:00 BP 87 / 54; Pulse 121; Resp 33; Pulse Ox 95% on 4 lpm NC; vg1 11:15 BP 88 / 56; Pulse 119; Resp 32; Pulse Ox 97% on 4 lpm NC; vg1 11:30 BP 88 / 52; Pulse 119; Resp 32; Pulse Ox 97% on 4 lpm NC; vg1 11:45 BP 82 / 54; Pulse 120; Resp 24; Pulse Ox 97% on 4 lpm NC; vg1 12:00 BP 86 / 54; Pulse 119; Resp 20; Pulse Ox 98% on 4 lpm NC; vg1 12:15 BP 80 / 54; Pulse 119; Resp 22; Pulse Ox 98% on 4 lpm NC; vg1 12:45 BP 84 / 51; Pulse 117; Resp 20; Pulse Ox 96% on 4 lpm NC; vg1 15:20 BP 83 / 47; Pulse 120; Resp 26; Pulse Ox 98% on 4 lpm NC; ll1 15:30 BP 68 / 41; Pulse 120; Resp 30; Pulse Ox 94% on 4 lpm NC; vg1 15:35 BP 71 / 43; Pulse 122; Resp 32; Pulse Ox 94% on 4 lpm NC; vg1 15:40 BP 72 / 40; Pulse 121; Resp 30; Pulse Ox 94% on 4 lpm NC; vg1 15:45 BP 84 / 45; Pulse 123; Resp 30; Pulse Ox 94% on 4 lpm NC; vg1 15:50 BP 84 / 46; Pulse 123; Resp 31; Pulse Ox 94% on 4 lpm NC; vg1 15:55 BP 84 / 45; Pulse 123; Resp 30; Pulse Ox 93% on 4 lpm NC; vg1 16:00 BP 74 / 47; Pulse 123; Resp 30; Pulse Ox 94% on 4 lpm NC; vg1 16:05 BP 83 / 46; Pulse 123; Resp 26; Pulse Ox 95% on 4 lpm NC; vg1 16:10 BP 83 / 43; Pulse 123; Resp 30; Pulse Ox 95% on 4 lpm NC; vg1 16:15 BP 85 / 48; Pulse 125; Resp 30; Pulse Ox 95% on 4 lpm NC; vg1 16:20 BP 86 / 51; Pulse 125; Resp 29; Pulse Ox 95% on 4 lpm NC; vg1 16:25 BP 86 / 54; Pulse 127; Resp 30; Pulse Ox 95% on 4 lpm NC; vg1 16:30 BP 86 / 50; Pulse 128; Resp 29; Pulse Ox 95% on 4 lpm NC; vg1 16:35 BP 91 / 50; Pulse 127; Resp 30; Pulse Ox 94% on 4 lpm NC; vg1 16:35 BP 91 / 50; Pulse 127; Resp 30; Pulse Ox 94% on 4 lpm NC; vg1 16:40 BP 87 / 43; Pulse 127; Resp 29; Pulse Ox 94% on 4 lpm NC; vg1 16:45 BP 85 / 44; Pulse 128; Resp 30; Pulse Ox 93% on 4 lpm NC; vg1 16:50 BP 86 / 61; Pulse 129; Resp 30; Pulse Ox 93% on 4 lpm NC; vg1 16:55 BP 78 / 51; Pulse 129; Resp 29; Pulse Ox 94% on 4 lpm NC; vg1 17:00 BP 79 / 56; Pulse 131; Resp 29; Pulse Ox 95% on 4 lpm NC; vg1 17:05 BP 78 / 44; Pulse 130; Resp 29; Pulse Ox 95% on 4 lpm NC; vg1 17:10 BP 83 / 51; Pulse 130; Resp 29; Pulse Ox 95% on 4 lpm NC; vg1 17:11 Temp 100.9(R); vg1 17:15 BP 88 / 64; Pulse 130; Resp 29; Pulse Ox 95% on 4 lpm NC; vg1 17:20 BP 81 / 51; Pulse 131; Resp 29; Pulse Ox 94% on 4 lpm NC; vg1 17:25 BP 80 / 50; Pulse 130; Resp 29; Pulse Ox 95% on 4 lpm NC; vg1 17:30 BP 79 / 37; Pulse 130; Resp 29; Pulse Ox 95% on 4 lpm NC; vg1 18:05 BP 85 / 52; Pulse 132; Resp 28; Pulse Ox 96% on 4 lpm NC; vg1 09:19 Body Mass Index 44.30 (136.08 kg, 175.26 cm) vg1 MDM: 15:06 Patient medically screened. kdr 12/03 08:33 Data reviewed: vital signs, nurses notes, lab test result(s), radiologic studies. kdr Counseling: I had a detailed discussion with the patient and/or guardian regarding: the historical points, exam findings, and any diagnostic results supporting the discharge/admit diagnosis, lab results, radiology results, the need for further work-up and treatment in the hospital. 12/02 09:40 Order name: Blood Culture Adult (2) vg1 12/02 09:40 Order name: CBC with Diff vg1 12/02 09:40 Order name: CMP; Complete Time: 11:28 1 12/02 09:40 Order name: Lactate; Complete Time: 13:10 1 12/02 09:40 Order name: Protime (+inr); Complete Time: 11:28 1 12/02 09:40 Order name: Ptt, Activated; Complete Time: 11:28 [facility] 12/02 09:40 Order name: Blood Culture EDMN 12/02 09:40 Order name: CBC with Automated Diff; Complete Time: 11:28 EDMN 12/02 09:53 Order name: Glucose, Ancillary Testing EDMN 12/02 10:49 Order name: SARS-COV-2 RT PCR (Document "Date of Onset" if Symptomatic) sp 12/02 10:50 Order name: COVID-19/FLU A+B (Document "Date of Onset" if Symptomatic) kb 12/02 10:50 Order name: COVID-19/FLU A+B; Complete Time: 13:10 EDMN 12/02 11:22 Order name: Manual Differential; Complete Time: 11:28 [facility] 12/02 14:57 Order name: Lactate Sepsis 2 HR Follow-up; Complete Time: 14:59 EDMS 12/02 11:01 Order name: CT Chest Abdomen Pelvis W/O Contrast; Complete Time: 13:10 kdr 12/02 16:52 Order name: T4 Free; Complete Time: 17:39 EDMS 12/02 16:52 Order name: Thyroid Stimulating Hormone; Complete Time: 17:39 EDMS 12/02 16:59 Order name: Troponin High Sensitivity; Complete Time: 17:39 EDMN 12/02 17:47 Order name: Ammonia EDMN 12/02 21:11 Order name: Creatine Phosphokinase EDMN 12/02 21:18 Order name: Vancomycin Level Trough EDMS 12/02 21:48 Order name: CBC with Automated Diff EDMN 12/02 22:09 Order name: Gram Stain--Aerobic Bottle EDMN 12/02 22:09 Order name: Gram Stain--Anaerobic Bottle EDMS 12/02 22:42 Order name: Manual Differential EDMN 12/02 09:40 Order name: Accucheck; Complete Time: 09:45 1 12/02 09:40 Order name: Cardiac monitoring; Complete Time: 09:40 [facility] 12/02 09:40 Order name: EKG - Nurse/Tech; Complete Time: 09:40 vg1 12/02 09:40 Order name: IV Saline Lock - Large Bore; Complete Time: 12/02 09:40 Order name: Labs collected and sent; Complete Time: 12/02 09:40 Order name: O2 Per Protocol; Complete Time: 12/02 09:40 Order name: O2 Sat Monitoring; Complete Time: EC/20 12:58 Rate is 124 beats/min. Rhythm is regular, Sinus tachycardia with No ectopy. QRS [place] is kdr Normal. NE interval is normal. QRS interval is normal. QT interval is normal. Clinical impression: Sinus tachycardia. Administered Medications: 10:35 Drug: Flagyl (metroNIDAZOLE) 500 mg Volume: 100 ml; Route: IVPB; Rate: 200 ml/hr; vg1 Infused Over: 30 mins; Site: right femoral; 11:05 Follow up: IV Status: Completed infusion; IV Intake: 100ml vg1 10:35 Drug: NS 0.9% 1000 ml Route: IV; Rate: 1 bolus; Site: right femoral; vg1 11:35 Follow up: IV Status: Completed infusion; IV Intake: 1000ml vg1 10:35 Drug: NS 0.9% 1000 ml Route: IV; Rate: 1 bolus; Site: right femoral; vg1 11:35 Follow up: IV Status: Completed infusion; IV Intake: 1000ml vg1 11:15 Drug: vancoMYCIN 1.5 grams Route: IVPB; Infused Over: 2 hrs; Site: right femoral; vg1 13:15 Follow up: IV Status: Completed infusion; IV Intake: 500ml vg1 11:23 Drug: Cefepime 2 grams Route: IVPB; Rate: 200 ml/hr; Infused Over: 30 mins; Site: right vg1 wrist; 12:00 Follow up: IV Status: Completed infusion vg1 12:56 Drug: NS 0.9% 1000 ml Route: IV; Rate: 1 bolus; Site: right femoral; vg1 14:00 Follow up: IV Status: Completed infusion; IV Intake: 1000ml vg1 15:19 Drug: NS 0.9% 1000 ml Route: IV; Rate: 200 ml/hr; Site: right femoral; ll1 15:34 Drug: Levophed (norepinephrine) (4 mg/250 mL D5W 4 mcg/min {Note: started at 5 ll1 mcg/min.} Route: IV; Rate: calculated rate; Site: right femoral; 17:58 Drug: Tylenol Suppository 650 mg Route: NE; vg1 18:28 Drug: NS 0.9% 1000 ml Route: IV; Rate: 1 bolus; Site: right femoral; vg1 Disposition Summary: 12/02/21 15:06 Hospitalization Ordered Hospitalization Status: Inpatient Admission kdr Provider: Prince lora Kasper Condition: Fair kdr Problem: new kdr Symptoms: have improved kdr Bed/Room Type: Standard kdr Location: Intensive Care Unit(12/02/21 21:47) cg Room Assignment: -(12/02/21 21:47) Diagnosis - Other specified sepsis kdr - Sepsis, unspecified organism kdr - Severe sepsis with septic shock kdr - Pneumonia, unspecified organism kdr - Acute renal failure kdr Forms: - Medication Reconciliation Form kdr - SBAR form kdr Signatures: Dispatcher [employer] EDBen aRe MD MD kdr Manuelito Mateo em1 Flavio Hidalgo, [employer] SUPERVISOR-C [employer] SUPERVISOR-Cla1 Jaelyn Hanna RN RN cg Dominga Hanna RN RN vg1 Khoa Carreon RN RN ll1 Adams Lipscomb MD MD [id number] Corrections: (The following items were deleted from the chart) 18:28 15:06 Intensive Care Unit kdr em1 18:28 15:06 kdr em1 21:47 18:28 [facility] ER HOLD em1 cg 21:47 18:28 ERHOLD- em1 cg
--- NOTE | 2021-12-02 15:29 | P.HP ---
Certification for Inpatient Patient admitted to: Inpatient With expected LOS: >2 Midnights Practitioner: I am a practitioner with admitting privileges, knowledge of patient current condition, hospital course, and medical plan of care. Services: Services provided to patient in accordance with Admission requirements found in Title 42 Section 412.3 of the Code of Federal Regulations Patient History Date of Service: 12/02/21 Reason for admission: altered mental status History of Present Illness: Patient is a 66-year-old female with a known past medical history of pulmonary embolism chronically anticoagulated with Xarelto, morbid obesity, bedbound for rafaela past year after a hip fracture. Poorly compliant with PT. She also has a hx of hypertension, hyperlipidemia and type 2 diabetes mellitus. She was brought in by EMS for evaluation of altered mental status. She has been reportedly lethargic with a declining mental status for the past 2 to 3 days. Patient could not provide history since she is profoundly lethargic. She received approximately 3.7 L of IV fluid on route to the ER. She arrived here mildly hypotensive and tachycardic. Her blood pressure continued to drop while she was in the ER with recent BP of 84/51. She is getting an additional liter in the ER. Laboratories are significant for leukocytosis with WBC of 17, lactic acid of 3.0 and a creatinine of 2.8. Her CT abdomen and pelvis revealed extensive interstitial fibrotic changes otherwise unremarkable. CT also captured a UPJ calculus measuring approximately 1.5 cm. Allergies No Known Allergies Allergy (Verified 11/27/20 22:17) Home Medications: ALPRAZolam [Alprazolam] 1 mg PO TID PRN 02/12/18 Citalopram [Celexa*] 20 mg PO DAILY 03/24/18 allopurinoL [Zyloprim*] 1 tab PO DAILY 03/24/18 Folic Acid 1 mg PO DAILY 04/05/20 Rivaroxaban [Xarelto*] 20 mg PO DAILY AT SUPPER #7 tablet 04/05/20 Etodolac [Lodine] 400 mg PO BID 09/22/20 Metoprolol Succinate [Toprol Xl] 100 mg PO DAILY 09/22/20 Levothyroxine [Synthroid*] 0.2 mg PO DAILYAC #60 tab 09/25/20 acetaZOLAMIDE [Diamox*] 250 mg PO DAILY #30 tab 09/25/20 Hydrocodone 10/APAP 325 [Speculator 10/325*] 1 tab PO Q4HP PRN 11/27/20 Cefpodoxime Proxetil [Vantin] 200 mg PO BID 7 Days #14 tablet 11/30/20 Mometasone/Formoterol [Dulera 100 Mcg/5 Mcg Inhaler] 2 puff IH BID 30 Days #1 inhaler 11/30/20 Spironolactone [Aldactone*] 25 mg PO BID 30 Days #60 tab 11/30/20 predniSONE [Prednisone*] 20 mg PO BID 7 Days #14 tab 11/30/20 - Past Medical/Surgical History Diabetic: Yes -: Hypertension -: Diabetes mellitus type 2 -: Secondary hypothyroidism -: DVT/PE -: Kidney stones -: Anxiety -: COPD -: Asthma -: ARTHRITIS/GOUT -: Tubal Ligation -: Kidney stone removal -: cyst on thyroid removed -: enterocutaneous fistula repair Psychosocial/ Personal History: Patient lives at home with her family - Family History Father -: Heart disease Notes: she was adopted,, she does not know her family history - Social History Alcohol use: No CD- Drugs: No Caffeine use: Yes Physical Examination - Physical Exam General: Obese, Other (Obtunded) HEENT: Atraumatic, Normocephalic, PERRLA Respiratory: Diminished, Crackles/rales Cardiovascular: Regular rate/rhythm, Normal S1 S2, No murmurs, Other (Tachycardic) Gastrointestinal: Soft and benign, Non-distended Musculoskeletal: No clubbing, No swelling, No contractures - Studies Laboratory Data (last 24 hrs) 12/02/21 10:05: PT 12.6 H, INR 1.14, APTT 24.7 12/02/21 10:05: WBC 17.10 H, Hgb 13.4, Hct 41.8, Plt Count 52 L 12/02/21 09:40: Sodium 137, Potassium 3.2 L, BUN 108 H, Creatinine 2.97 H, Glucose 115 H, Total Bilirubin 2.3 H, AST 28, ALT 22, Alkaline Phosphatase 488 H Assessment and Plan - Problems (Diagnosis) (1) Septic shock Current Visit: Yes Status: Acute (2) Bronchiectasis Onset Date: 01/05/16 Current Visit: No Status: Acute (3) Chronic kidney disease, stage 3 Current Visit: No Status: Acute (4) Diabetes mellitus type 2 in obese Current Visit: No Status: Acute (5) History of blood clots Current Visit: No Status: Acute (6) History of pulmonary embolism Current Visit: No Status: Acute - Advance Directives Does patient have a Living Will: No Does patient have a Durable POA for Healthcare: Yes Physician Review Additional Text: Assessment Patient is a 66-year-old female with morbid obesity and venous thromboembolism chronically anticoagulated with Xarelto. She is brought in for evaluation of altered mental status. She has been profoundly hypotensive despite aggressive volume repletion. Lab work-up concerning for septic shock. No clear source at this time except possible urinary tract infection. Her urine analysis is still pending. Septic shock Acute encephalopathy UPJ stone- 1.5 cm LUISANA and oliguria Morbid obesity Severe thrombocytopenia History of venous thromboembolism, s/p IVC filter Possible diastolic CHF Type 2 diabetes mellitus CKD stage III Plan: Patient will be admitted in the ICU for hemodynamic monitoring Start patient on Levophed with MAP more than [address] head when stable Follow up TFT We will obtain a 2D echo Follow-up urine analysis Will obtain a Nephrology consult. Discussed case with Dr. Miller We will continue broad-spectrum antibiotics with vancomycin and meropenem Follow-up blood cultures Avoid nephrotoxins GI prophylaxis with famotidine She has a history of nephrolithiasis. Will consult urology if indicated.
[2021-12-02] MEDS ORDERED: NOREPINEPHRINE 4mg/D5W 250mL 4 MG/250 ML BAG IV ONE ×4 (15:41→23:53)
[2021-12-02] MEDS ORDERED: HEPARIN/D5W 25,000 UNIT/500 ML BAG IV SCH (16:00)
[2021-12-02 16:52] LABS: Thyroid Stimulating Hormone 4.35 uIU/mL (0.360-3.740)
[2021-12-02] MEDS ORDERED: ACETAMINOPHEN 650MG/RECT SUPP PR ONE (17:48)
[2021-12-02] MEDS ORDERED: HYDROCORTISONE SUC 100 MG INJ ONE (18:24)
[2021-12-02] MEDS: HYDROCORTISONE SUC 100 MG INJ IV SCH (18:25)
[2021-12-02] MEDS: Meropenem 1,000 MG in NA CHLORIDE 0.9% 100 ML IV SCH ×2 (20:16→21:00)
[2021-12-02] MEDS: VANCOMYCIN 2 GM in NA CHLORIDE 0.9% 500 ML IVPB ONE ×2 (20:16→22:00)
[2021-12-02] MEDS ORDERED: Meropenem 1000 MG/VIAL IV ONE (20:24)
[2021-12-02] MEDS ORDERED: VANCOMYCIN 1 GM/VIAL ONE (20:25)
[2021-12-02] MEDS ORDERED: NA CHLORIDE 0.9% 250 ML ONE ×3 (20:25→23:38)
[2021-12-02] MEDS ORDERED: FAMOTIDINE 20 MG/2 ML VIAL IV SCH (21:00)
[2021-12-02] MEDS ORDERED: VASOPRESSIN 80 UNIT in NA CHLORIDE 0.9% 250 ML IV PRN (21:04)
[2021-12-02] MEDS ORDERED: VASOPRESSIN 20 UNIT/ML VIAL ONE (21:35)
[2021-12-02 21:46] LABS: Absolute Lymphocytes (CBC) 1.3 K/uL (0.7-4.9); Hematocrit 38.8 % (36.0-45.0); Lymphocytes % 2.1 % (15.3-44.8); MPV 10.5 fL (7.6-11.3); RBC Red Blood Cell Count 4.29 M/uL (3.86-4.86)
[2021-12-02] MEDS: NOREPINEPHRINE 4 MG in D5W 250 ML IV SCH (22:30)
[2021-12-02 22:42] LABS: Blood Morphology Comment NOT SEEN (NOT SEEN); Platelet Estimate DECR
[2021-12-02] MEDS ORDERED: Phenylephrine HCl 10 MG/ML 1 ML VIAL ONE (23:37)
--- NOTE | 2021-12-02 23:41 | P.PN ---
Date of Service: 12/02/21 NICHOLAS CONSUELO was called by nursing staff patient was having agonal breathing desaturated to 85% on nonrebreather. Myself and ED physician came and patient was intubated, patient had difficult airway was very anterior. Patient was intubated successfully on third attempt without significant desaturations. 7.5 -23 at the teeth chest x-ray ordered. Discussed with family, patient with extremely poor prognosis at this point time adding third vasopressor currently. Patient still profoundly hypotensive, poor perfusion cyanotic in the ex tremities. Continue with full code at this point time patient critical poor prognosis.
[2021-12-03] MEDS: NOREPINEPHRINE 4 MG in D5W 250 ML IV SCH ×3 (00:30→04:58)
[2021-12-03 00:44] LABS: Arterial Blood Carboxyhemoglob 1.1 % (0-1.5); Blood Gas Oxyhemoglobin 95.8 % (94-97); Blood O2 Saturation 98.5 % (92-98.5)
[2021-12-03] MEDS ORDERED: VASOPRESSIN 80 UNIT in NA CHLORIDE 0.9% 250 ML IV PRN (00:54)
[2021-12-03] MEDS: HYDROCORTISONE SUC 100 MG INJ IV SCH ×3 (01:28→20:31)
[2021-12-03] MEDS ORDERED: NOREPINEPHRINE 4mg/D5W 250mL 4 MG/250 ML BAG IV ONE ×2 (02:28→05:04)
[2021-12-03] MEDS ORDERED: NA CHLORIDE 0.9% 250 ML IV PRN (04:11)
[2021-12-03 04:51] LABS: Arterial Blood Carboxyhemoglob 0.9 % (0-1.5); Blood Gas Oxyhemoglobin 96.7 % (94-97)
[2021-12-03 05:26] LABS: Albumin 1.9 g/dL (3.4-5.0); Bilirubin Total 1.8 mg/dL (0.2-1.0); Potassium 4.4 mmol/L (3.5-5.1); Protein, Total 6.4 g/dL (6.4-8.2)
[2021-12-03] MEDS: Meropenem 1,000 MG in NA CHLORIDE 0.9% 100 ML IV SCH ×2 (07:53→20:30)
[2021-12-03] MEDS: NOREPINEPHRINE 8 MG in Dextrose 5%-Water 500 ML IV SCH ×3 (07:54→18:45)
[2021-12-03] MEDS ORDERED: FAMOTIDINE 20 MG/2 ML VIAL IV SCH (08:00)
[2021-12-03] MEDS: FAMOTIDINE 20 MG/2 ML VIAL IV SCH (08:07)
--- NOTE | 2021-12-03 08:21 | EKG ---
Test Date: 2021-12-02 Test Time: 09:26:59 Pediatric Dentist: MEASUREMENT RESULTS: Intervals: Rate: 124 [place]: 118 QRSD: 92 QT: 302 QTc: 433 [place]: P: 48 [place]: 118 QRS: 2 T: 124 INTERPRETIVE STATEMENTS: Sinus tachycardia with occasional premature ventricular complexes Left ventricular hypertrophy with repolarization abnormality Abnormal ECG Compared to ECG 03/22/2021 16:49:18 Ventricular premature complex(es) now present Left ventricular hypertrophy now present Early repolarization now present Sinus rhythm no longer present ST (T wave) deviation no longer present Electronically Signed On 12-03-21 08:19:46 CDT by Kush Hernández
--- NOTE | 2021-12-03 10:24 | P.CNS ---
Date of Consult: 12/03/21 Reason for Consult: LUISANA Requesting Physician: Prince Malaika Kasper Chief Complaint: altered mental status History of Present Illness: Patient is a 66-year-old female with a known past medical history of pulmonary embolism chronically anticoagulated with Xarelto, morbid obesity, bedbound for rafaela past year after a hip fracture. Poorly compliant with PT. She also has a hx of hypertension, hyperlipidemia and type 2 diabetes mellitus. She was brought in by EMS for evaluation of altered mental status. She has been reportedly lethargic with a declining mental status for the past 2 to 3 days. Patient could not provide history since she is profoundly lethargic. She received approximately 3.7 L of IV fluid on route to the ER. She arrived here mildly hypotensive and tachycardic. Her blood pressure continued to drop while she was in the ER with recent BP of 84/51. She is getting an additional liter in the ER. Laboratories are significant for leukocytosis with WBC of 17, lactic acid of 3.0 and a creatinine of 2.8. Her CT abdomen and pelvis revealed extensive interstitial fibrotic changes otherwise unremarkable. CT also captured a UPJ calculus measuring approximately 1.5 cm. Limited HPI/ ROS due to intubation overnight. Allergies No Known Allergies Allergy (Verified 11/27/20 22:17) Home medications list reviewed: Yes Home Medications: ALPRAZolam [Alprazolam] 1 mg PO TID PRN 02/12/18 Citalopram [Celexa*] 20 mg PO DAILY 03/24/18 allopurinoL [Zyloprim*] 1 tab PO DAILY 03/24/18 Folic Acid 1 mg PO DAILY 04/05/20 Rivaroxaban [Xarelto*] 20 mg PO DAILY AT SUPPER #7 tablet 04/05/20 Etodolac [Lodine] 400 mg PO BID 09/22/20 Metoprolol Succinate [Toprol Xl] 100 mg PO DAILY 09/22/20 Levothyroxine [Synthroid*] 0.2 mg PO DAILYAC #60 tab 09/25/20 acetaZOLAMIDE [Diamox*] 250 mg PO DAILY #30 tab 09/25/20 Hydrocodone 10/APAP 325 [[place] 10/325*] 1 tab PO Q4HP PRN 11/27/20 Cefpodoxime Proxetil [Vantin] 200 mg PO BID 7 Days #14 tablet 11/30/20 Mometasone/Formoterol [Dulera 100 Mcg/5 Mcg Inhaler] 2 puff IH BID 30 Days #1 inhaler 11/30/20 Spironolactone [Aldactone*] 25 mg PO BID 30 Days #60 tab 11/30/20 predniSONE [Prednisone*] 20 mg PO BID 7 Days #14 tab 11/30/20 - Past Medical/Surgical History Diabetic: Yes -: Hypertension -: Diabetes mellitus type 2 -: Secondary hypothyroidism -: DVT/PE -: Kidney stones -: Anxiety -: COPD -: Asthma -: ARTHRITIS/GOUT -: Tubal Ligation -: Kidney stone removal -: cyst on thyroid removed -: enterocutaneous fistula repair Psychosocial/ Personal History: Patient lives at home with her family - Family History Father Medical History: Heart disease Notes: she was adopted,, she does not know her family history - Social History Smoking Status: Unknown if ever smoked Alcohol use: No CD- Drugs: No Caffeine use: Yes Review of Systems is unable to be obtained Physical Examination Temp Pulse Resp BP Pulse Ox 98.7 F 179 H 37 H 112/53 L 99 12/03/21 08:00 12/03/21 09:15 12/03/21 09:15 12/03/21 09:15 12/03/21 09:15 General: Unresponsive HEENT: Atraumatic Neck: Supple Respiratory: Clear to auscultation bilaterally Cardiovascular: No rubs, Edema Gastrointestinal: Soft and benign, Non-distended Musculoskeletal: No clubbing, No contractures Integumentary: No rashes, No cyanosis Neurological: Abnormal tone Laboratory Data (last 24 hrs) 12/02/21 10:05: PT 12.6 H, INR 1.14, APTT 24.7 12/02/21 10:05: WBC 17.10 H, Hgb 13.4, Hct 41.8, Plt Count 52 L Imagings Data: EXAM DESCRIPTION: CT - Chest Abd Pelvis Wo Con - 12/02/2021 12:49 pm CLINICAL HISTORY: AMS/Sepsis;Congestion COMPARISON: Thorax Wo Con dated 03/22/2021; Chest For Pe Angio dated 09/22/2020; Abdomen Pelvis W Contrast dated 04/25/2021 TECHNIQUE: During dynamic enhancement using 100 milliliters nonionic IV contrast, axial 5 millimeter thick images of the chest, abdomen and pelvis were obtained. Biphasic technique was utilized through the abdomen. Oral contrast was administered. All CT scans are performed using dose optimization technique as appropriate and may include automated exposure control or mA/KV adjustment according to patient size. FINDINGS: Thyromegaly again noted. Extensive baseline interstitial thickening is present in both lung sommer, more pronounced on the right. There is right hemithorax volume loss relative to the left also seen as stable. Scattered areas of nodularity in the lung parenchyma show no change in size. No endobronchial lesions seen. Increased wound glass opacities are present in the left lung field. Respiratory motion degradation decreases overall sensitivity of assessment. Increased interstitial opacification noted in the lower left lung field and in the posterior lower right lung field compared to the prior study. Cardiomegaly without pericardial effusion seen. Right shift of the heart and mediastinal structures has not changed. No pneumothorax or pleural effusion. No chest wall mass or abnormal axillary lymphadenopathy seen. Mediastinal and hilar lymph node pattern has not changed. No bulky lymphadenopathy seen. Pulmonary arteries are prominent. The liver, spleen and pancreas show no significant findings. Gallbladder is well filled and contains multiple gallstones. No biliary tree dilatation. Right kidney is larger than the left. Function cannot be assessed on a noncontrast study. A 15-18 millimeter cluster of multiple calcifications seen in the calices in parenchyma of the lower right kidney. There is moderate dilatation of the pelvis and calices present. Multiple 3-5 mm mid right renal calyx calculi are present. Approximately 2 centimeter calcification is seen layering in the dependent portion of the dilated pelvis. There is a 15 millimeter oval calcification at the right UPJ. More distally the right ureter is not abnormally dilated. A few nonobstructing calyx and parenchymal calculi noted on the left. Punctate 1-2 mm size calcifications seen in the non dilated left renal pelvis. No adrenal abnormalities. Urinary bladder is fully contracted around a Perez catheter. Uterus has a lobulated contour that may indicate presence of 1 or more fibroids. Atrophic ovaries are identified. No acute stomach or small bowel finding. Sigmoid anastomotic site shows no acute finding. Large amount of stool is present dilating the rectum to 9 cm. Sigmoid stool volume is moderate. No colon mass lesions seen. No free air, free fluid or inflammatory stranding. No hernia, mass or bulky lymphadenopathy. Disc and bone degenerative changes are present. No pathologic bone process seen. IVC filter is in place. IMPRESSION: Patient has extensive baseline interstitial fibrotic change. Additional areas of interstitial opacification and ground-glass opacification are present compared to 03/22/2021 imaging. Progressive interstitial fibrotic disease possible. Superimposed interstitial and alveolar infiltrate should be considered. There is no large new mass or consolidation. Multi stone cholelithiasis as previously seen. No biliary tree dilatation. Approximately 15 millimeter right-side UPJ calculus with moderate dilatation of the pelvis and calices. The UPJ calculus may be partially or intermittently obstructive. Pelvis and calices are only slightly larger than seen on 04/25/2021 imaging. Patient has multiple additional nonobstructing pelvis, calyx and parenchymal calculi on the right. No acute GI or process seen. There is a large stool volume dilating the rectum to 9 cm. Conclusions/Impression: LUISANA likely Oliguric ATN in the setting septic shock complicated by Etolodac. CKD II with proteinuria -No NSAIDs -Maintain BP support Hyponatremia -Advance nutrition as tolerated Nephrolithiasis -Consider urology evaluation for possible UPJ obstruction DM II with CKD -Recommend RISS Severe malnutrition Hypoalbuminemia -Advance nutrition as tolerated -Consider IV Albumin prn Anemia in chronic illness -Monitor H&H Acute respiratory failure with hypercapnea -Ventilatory support as ordered -Wean Oxygen as tolerated Sepsis/ Septic shock Acute hepatitis likely due to shock -Continue pressor support -Continue Abx; monitor vanco level -Continue hydrocortisone Toxic metabolic encephalopathy due to sepsis -Continue abx Thank you kindly for the consultation. Case discussed with Dr. Kasper Critical Care: Yes (>30min)
[2021-12-03] MEDS ORDERED: MIDAZOLAM HCL 2 MG/2 ML INJ IV PRN (11:11)
--- NOTE | 2021-12-03 11:34 | RAD REPORT ---
EXAM DESCRIPTION: Jason Single View12/03/2021 10:30 am CLINICAL HISTORY: Respiratory failure COMPARISON: December 02, 2021 FINDINGS: Marked opacification right hemithorax with volume loss. Slight better aeration since the p rior exam Mild left lung opacities Cardiomegaly Endotracheal tube with its tip overlying the aortic arch. NG tube enters the stomach. The tip is not included in the field view IMPRESSION: Slight better aeration to the right lung compared to the prior exam
[2021-12-03] MEDS: LORazepam 2 MG/ML VIAL IV PRN (11:46)
--- NOTE | 2021-12-03 12:18 | P.PN ---
Subjective Date of Service: 12/03/21 Chief Complaint: Shock Patient is 66 years of age admitted with refractory shock presumed septic Physical Examination - Vital Signs Temperature: 98.7 F Blood Pressure: 112/53 Pulse: 179 Respirations: 37 Pulse Ox (%): 99 - Studies Microbiology Data (last 24 hrs): 12/02/21 10:35 Blood - Blood Blood Culture Gram Stain - Final 12/02/21 10:35 Blood - Blood Gram Stain - Final
--- NOTE | 2021-12-03 12:24 | P.CNS ---
Date of Consult: 12/03/21 Chief Complaint: Respiratory failure and refractory shock History of Present Illness: Patient is 66 years of age history of thromboembolic disease mated with altered mental status refractory shock currently on a ventilator with renal failure complete opacification on the right side Chest x-ray is very abnormal Allergies No Known Allergies Allergy (Verified 11/27/20 22:17) Home Medications: ALPRAZolam [Alprazolam] 1 mg PO TID PRN 02/12/18 Citalopram [Celexa*] 20 mg PO DAILY 03/24/18 allopurinoL [Zyloprim*] 1 tab PO DAILY 03/24/18 Folic Acid 1 mg PO DAILY 04/05/20 Rivaroxaban [Xarelto*] 20 mg PO DAILY AT SUPPER #7 tablet 04/05/20 Etodolac [Lodine] 400 mg PO BID 09/22/20 Metoprolol Succinate [Toprol Xl] 100 mg PO DAILY 09/22/20 Levothyroxine [Synthroid*] 0.2 mg PO DAILYAC #60 tab 09/25/20 acetaZOLAMIDE [Diamox*] 250 mg PO DAILY #30 tab 09/25/20 Hydrocodone 10/APAP 325 [[place] 10/325*] 1 tab PO Q4HP PRN 11/27/20 Cefpodoxime Proxetil [Vantin] 200 mg PO BID 7 Days #14 tablet 11/30/20 Mometasone/Formoterol [Dulera 100 Mcg/5 Mcg Inhaler] 2 puff IH BID 30 Days #1 inhaler 11/30/20 Spironolactone [Aldactone*] 25 mg PO BID 30 Days #60 tab 11/30/20 predniSONE [Prednisone*] 20 mg PO BID 7 Days #14 tab 11/30/20 - Past Medical/Surgical History Diabetic: Yes -: Hypertension -: Diabetes mellitus type 2 -: Secondary hypothyroidism -: DVT/PE -: Kidney stones -: Anxiety -: COPD -: Asthma -: ARTHRITIS/GOUT -: Tubal Ligation -: Kidney stone removal -: cyst on thyroid removed -: enterocutaneous fistula repair Psychosocial/ Personal History: Patient lives at home with her family - Family History Father Medical History: Heart disease Notes: she was adopted,, she does not know her family history - Social History Smoking Status: Unknown if ever smoked Alcohol use: No CD- Drugs: No Caffeine use: Yes Review of Systems is unable to be obtained Physical Examination Temp Pulse Resp BP Pulse Ox 98.7 F 179 H 37 H 112/53 L 99 12/03/21 08:00 12/03/21 09:15 12/03/21 09:15 12/03/21 09:15 12/03/21 09:15 General: Unresponsive Respiratory: Other (Bronchial breathing on the right side) Cardiovascular: No edema, Regular rate/rhythm, Normal S1 S2 Gastrointestinal: Normal bowel sounds, Soft and benign - Problems (1) Septic shock Current Visit: Yes Status: Acute Plan: Patient is 66 years of age admitted with refractory shock respiratory failure almost complete opacification on the right side tracheal deviation to the right possible atelectasis pneumonia and to do some chest percussion on the right side multiorgan failure patient is unresponsive oxygenation satisfactory titrate the O2 sat down to 90 to 95% sputum cultures patient is on vancomycin and meropenem gram-negative rods cultured in the blood continue with IV steroids
--- NOTE | 2021-12-03 13:28 | RAD REPORT ---
EXAM DESCRIPTION: RAD - Chest Single View - 12/02/2021 11:53 pm CLINICAL HISTORY: 66 years, Female, s/p intubation COMPARISON: None. FINDINGS: Single view of the chest was obtained portable. No prior films are available for compariso n. There is a endotracheal tube at the slightly medial midclavicular line at approximately 2.3 cm fro m the [place] in good position. There is lack of ventilation of the right lung. The patient is rotated towards the right. Increased reticular pulmonary markings throughout the lungs. There is cardiomegal y. There is no significant pleural effusions. The rest of the soft tissue and bony structures demon strate to be unremarkable. IMPRESSION: Poor inspiratory effort. Increased interstitial pulmonary markings throughout the lungs. Cardiomegaly. Endotracheal tube in good position. Electronically signed by: Luis Angel Bennett MD 12/03/2021 12:20 AM CDT Due to temporary technical issues with the PACS/Fluency reporting system, reports are being signed by the in house radiologist without review as a courtesy to ensure prompt reporting. The interpreting r adiologist is fully responsible for the content of the report.
--- NOTE | 2021-12-03 20:10 | CON ---
Date of Consultation: 12/03/2021 Reason For Consultation: Tachycardia. History Of Present Illness: This is a 66-year-old female who was admitted to the hospital with sepsi s, altered mental condition. She was known to have history of pulmonary embolus, on anticoagulation of Xarelto, hypertension, dyslipidemia, type 2 diabetes. She was hypotensive and septic in the admis linda with high lactic acid. Then she went into respiratory distress, required intubation. She had f ast heart rate throughout the night in the 160s. Hence, I was consulted. On the evaluation at the [facility], she is on the ventilator, right now. Heart rate is in the 110 range, and sinus tachycardia. Reviewed old telemetry monitors and appears to be sinus tachycardia as well. Past Medical History: As outlined above in the HPI. Medications: Refer reconciliation sheet for detailed list. Allergies: NO KNOWN DRUG ALLERGIES. Family History: No mature coronary artery disease or cancer. Social History: Does not smoke or drink. Denies use of drugs. Review of Systems: All systems reviewed and they were negative except what mentioned in the HPI. Physical Examination: Vital Signs: Reviewed. Head and Neck: Pupils are equal, reactive to light. No JVD. There is no cervical lymphadenopathy. Lungs: Breathing sounds bilaterally. Breathing on the ventilator. Heart: Regular rate and rhythm. Tachycardic. Abdomen: Soft, nontender. Bowel sounds positive. No organomegaly. No masses or hernia. Extremities: No clubbing or cyanosis. Skin: No rashes. Neurological: She is sedated on the vent. Lymph Nodes: No cervical lymphadenopathy. Investigations: White blood cell count 61,000, hemoglobin is 11, creatinine is 3.15, BUN is 107. Tr oponin is negative. Assessment And Recommendations: Narrow complex tachycardia. This is likely sinus tachycardia in res ponse to the septic shock. No medications or intervention is needed from cardiology standpoint. Ple ase obtain an echocardiogram once the heart rate settles. I recommend aggressive IV fluid management and this should bring her heart rate down, once the sepsis is adequately treated with the fluid resu scitation and IV antibiotics. Thank you for the consult. SR/MODL Voice ID: [id number] Report ID: [id number]
[2021-12-03 22:26] LABS: Absolute Lymphocytes (CBC) 1.4 K/uL (0.7-4.9); Hematocrit 33.9 % (36.0-45.0); Lymphocytes % 6.5 % (15.3-44.8); MPV 10.3 fL (7.6-11.3); RBC Red Blood Cell Count 3.95 M/uL (3.86-4.86)
[2021-12-04] MEDS: NOREPINEPHRINE 8 MG in Dextrose 5%-Water 500 ML IV SCH ×3 (03:45→22:00)
[2021-12-04 05:17] LABS: Absolute Lymphocytes (CBC) 1.2 K/uL (0.7-4.9); Hematocrit 32.5 % (36.0-45.0); Lymphocytes % 4.9 % (15.3-44.8); MPV 9.6 fL (7.6-11.3); RBC Red Blood Cell Count 3.86 M/uL (3.86-4.86)
[2021-12-04 05:56] LABS: Albumin 1.8 g/dL (3.4-5.0); Bilirubin Total 1.6 mg/dL (0.2-1.0); Protein, Total 5.5 g/dL (6.4-8.2)
[2021-12-04 06:12] LABS: Arterial Blood Carboxyhemoglob 1.1 % (0-1.5); Blood O2 Saturation 97.5 % (92-98.5)
--- NOTE | 2021-12-04 06:26 | P.PN ---
Subjective Date of Service: 12/03/21 Patient remains intubated and sedated. Weaning off of vasopressor support. Patient was tachycardic but heart rate has improved. Continue monitoring very closely. Review of Systems 10-point ROS is otherwise unremarkable Physical Examination - Vital Signs Temperature: 99 F Blood Pressure: 98/76 Pulse: 108 Respirations: 19 Pulse Ox (%): 97 - Physical Exam General: Obese, Other (Intubated and sedated) HEENT: Atraumatic, PERRLA, EOMI Neck: Supple, JVD not distended Respiratory: Diminished, Rhonchi/gurgles Cardiovascular: Regular rate/rhythm, Normal S1 S2, Systolic murmur Gastrointestinal: Normal bowel sounds, Soft and benign, Non-distended, No tenderness Musculoskeletal: No clubbing, No swelling, No tenderness Neurological: Sensation intact, Cranial nerves 3-12 intact - Studies Microbiology Data (last 24 hrs): 12/02/21 10:35 Blood - Blood Blood Culture Gram Stain - Final 12/02/21 10:35 Blood - Blood Gram Stain - Final Medications List Reviewed: Yes Assessment & Plan - Problems (Diagnosis) (1) Septic shock Current Visit: Yes Status: Acute (2) Bronchiectasis Onset Date: 01/05/16 Current Visit: No Status: Acute (3) Chronic kidney disease, stage 3 Current Visit: No Status: Acute (4) Diabetes mellitus type 2 in obese Current Visit: No Status: Acute (5) History of renal stone Current Visit: No Status: Acute (6) Hypertension Current Visit: No Status: Acute (7) Hypothyroidism Current Visit: No Status: Acute (8) Pneumonia Onset Date: 01/05/16 Current Visit: No Status: Acute Qualifiers: Laterality: bilateral Lung location: unspecified part of lung (9) ATN (acute tubular necrosis) Current Visit: Yes Status: Acute (10) Shock liver Current Visit: Yes Status: Acute (11) Fecal impaction Current Visit: Yes Status: Acute (12) Ureterovesical junction (UVJ) obstruction Current Visit: Yes Status: Acute (13) Acute and chronic respiratory failure ([id number]) Current Visit: No Status: Acute Qualifiers: Respiratory failure complication: hypoxia and hypercapnia Qualified Code(s): J96.21 - Acute and chronic respiratory failure with hypoxia; J96.22 - Acute and chronic respiratory failure with hypercapnia - Plan Plan: -Mechanical ventilation management per pulmonary -Continue vasopressor support -Hydrocortisone IV trial -CT head when stable -Monitor renal function -Echocardiogram report pending we will obtain a 2D echo -Cultures pending -Appreciate nephrology consult -We will continue broad-spectrum antibiotics with vancomycin and meropenem -GI prophylaxis with famotidine -She has a history of nephrolithiasis. Will consult urology when patient more stable for intervention Discharge Plan: Other Plan to discharge in: Greater than 2 days - Advance Directives Does patient have a Living Will: No Does patient have a Durable POA for Healthcare: Yes - Code Status/Comfort Care Code Status Assessed: Yes Code Status: Full Code Critical Care: Yes Time Spent Managing PTS Care (In Minutes): 55
--- NOTE | 2021-12-04 06:28 | P.PN ---
Date of Service: 12/04/21 Subjective Spoke with family re: prognosis; daughters are going to be the medical power of assistant district attorney. Ms. Pavon will be the decision maker. She is going to talk to her sister regarding her CODE STATUS. Still wanting everything done at this point. Echo report pending. Patient with thrombocytopenia. Elevated liver function testing. Still requiring vasopressor support Review of Systems Unable to obtain Physical Examination - Vital Signs Reviewed - Physical Exam General: Obese, Other (Intubated and sedated) HEENT: ET tube in place Neck: Supple, JVD not distended Respiratory: Diminished, Rhonchi/gurgles Cardiovascular: Regular rate/rhythm, Normal S1 S2, Systolic murmur Gastrointestinal: Normal bowel sounds, Soft and benign, Non-distended, No tenderness Musculoskeletal: No clubbing, No swelling, No tenderness Neurological: Sensation intact, Cranial nerves 3-12 intact Assessment & Plan - Problems (Diagnosis) (1) Septic shock Current Visit: Yes Status: Acute (2) Thrombocytopenia Onset Date: 01/05/16 Current Visit: No Status: Acute (3) Chronic kidney disease, stage 3 Current Visit: No Status: Acute (4) Diabetes mellitus type 2 in obese Current Visit: No Status: Acute (5) History of renal stone Current Visit: No Status: Acute (6) Hypertension Current Visit: No Status: Acute (7) Hypothyroidism Current Visit: No Status: Acute (8) Pneumonia Onset Date: 01/05/16 Current Visit: No Status: Acute Qualifiers: Laterality: bilateral Lung location: unspecified part of lung (9) ATN (acute tubular necrosis) Current Visit: Yes Status: Acute (10) Shock liver Current Visit: Yes Status: Acute (11) Fecal impaction Current Visit: Yes Status: Acute (12) Ureterovesical junction (UVJ) obstruction Current Visit: Yes Status: Acute (13) Acute and chronic respiratory failure ([id number]) Current Visit: No Status: Acute Qualifiers: Respiratory failure complication: hypoxia and hypercapnia Qualified Code(s): J96.21 - Acute and chronic respiratory failure with hypoxia; J96.22 - Acute and chronic respiratory failure with hypercapnia - Plan Plan: -Mechanical ventilation management per pulmonary -Continue vasopressor support -Hydrocortisone IV trial -CT head when stable -Monitor renal function -Echocardiogram report pending we will obtain a 2D echo -Cultures pending -Appreciate nephrology consult -We will continue broad-spectrum antibiotics with vancomycin and meropenem -GI prophylaxis with famotidine -She has a history of nephrolithiasis. Will consult urology when patient more stable for intervention Discharge Plan: Other Plan to discharge in: Greater than 2 days - Advance Directives Does patient have a Living Will: No Does patient have a Durable POA for Healthcare: Yes - Code Status/Comfort Care Code Status Assessed: Yes Code Status: Full Code Critical Care: Yes Time Spent Managing PTS Care (In Minutes): 55
[2021-12-04] MEDS ORDERED: ALBUMIN HUMAN 25% 100 ML IV ONE (06:34)
--- NOTE | 2021-12-04 07:21 | RAD REPORT ---
EXAM DESCRIPTION: RAD - Chest Single View - 12/04/2021 5:41 am CLINICAL HISTORY: resp failure COMPARISON: Portable 12/03/2021 TECHNIQUE: AP portable chest image was obtained 12/04/2021 5:41 am . FINDINGS: Endotracheal tube remains in place 3.5 cm above the [place]. There has been no change in po sitioning. NG tube extends below the diaphragm, off the field of view. Lung volumes are reduced compared to the prior study. Interstitial and alveolar opacities of the left hemithorax are accentuated. There is increased right hemithorax opacification from progressive infil trate or edema as well is possibly from the affects of the low lung volumes. No new tracheal shift. Heart is mostly obscured by the right hemithorax opacification. No pneumothora x is seen. No enlarging pleural effusion identified. IMPRESSION: Increased right hemithorax opacification is present. This could be progressive infiltrat e/edema, affects of reduced lung volume compared to prior study or a combination. No change in positioning of the endotracheal tube or NG tube. Interstitial and alveolar opacities of the left hemithorax are increased due to the low lung volume. True left hemithorax parenchymal disease is felt be unlikely.
--- NOTE | 2021-12-04 07:49 | ECHO ---
HEIGHT: 5 ft 9 in WEIGHT: 302 lb 0 oz DATE OF STUDY: 12/03/[address]: Prince Malaika Kasper MD 2-DIMENSIONAL: YES M.MODE: YES DOPPLER: YES COLOR FLOW: YES TDS: YES PORTABLE: NO DEFINITY: NO BUBBLE STUDY: NO DIAGNOSIS: HYPOTENSION CARDIAC HISTORY: CATHERIZATION: SURGERY: PROSTHETIC VALVE: PACEMAKER: MEASUREMENTS (cm) DIASTOLIC (NORMALS) SYSTOLIC (NORMALS) IVSd 1.1 (0.6-1.2) LA Diam (1.9-4.0) LVEF >60% LVIDd 3.6 (3.5-5.7) LVIDs 1.9 (2.0-3.5) %FS 47% LVPWd 1.2 (0.6-1.2) Ao Diam 2.2 (2.0-3.7) 2 DIMENSIONAL ASSESSMENT: RIGHT ATRIUM: NORMAL LEFT ATRIUM: NORMAL RIGHT VENTRICLE: NORMAL LEFT VENTRICLE: HYPERDYNAMIC TRICUSPID VALVE: MITRAL VALVE: NORMAL PULMONIC VALVE: NORMAL AORTIC VALVE: NORMAL PERICARDIAL EFFUSION: NONE AORTIC ROOT: NORMAL LEFT VENTRICULAR WALL MOTION: POOR WINDOWS CANNOT EVALUATE. DOPPLER/COLOR FLOW: SEE BELOW COMMENTS: VERY POOR WINDOWS. LEFT VENTRICULAR EJECTION FRACTION APPEARS NORMAL WITH HYPERDYNAMIC LEFT VENTRICLE AND EJECTION FRACTION >60%. RECOMMEND REPEAT STUDY ONCE HEART RATE IS CONTROLLED. TECHNOLOGIST: Ziggy WATSON
[2021-12-04] MEDS: FAMOTIDINE 20 MG/2 ML VIAL IV SCH (08:16)
[2021-12-04] MEDS: HYDROCORTISONE SUC 100 MG INJ IV SCH (08:16)
[2021-12-04] MEDS: Meropenem 1,000 MG in NA CHLORIDE 0.9% 100 ML IV SCH ×3 (08:16→21:20)
[2021-12-04] MEDS ORDERED: VANCOMYCIN 2 GM in NA CHLORIDE 0.9% 500 ML IVPB SCH (11:00)
[2021-12-04 11:21] LABS: Absolute Lymphocytes (CBC) 1.3 K/uL (0.7-4.9); Hematocrit 32.7 % (36.0-45.0); Lymphocytes % 4.3 % (15.3-44.8); MPV 9.6 fL (7.6-11.3); RBC Red Blood Cell Count 3.91 M/uL (3.86-4.86)
[2021-12-04] MEDS ORDERED: HYDROMORPHONE HCL 2 MG/ML inj ONE (11:35)
[2021-12-04 11:37] LABS: Albumin 2.2 g/dL (3.4-5.0); Bilirubin Total 1.8 mg/dL (0.2-1.0); Protein, Total 5.7 g/dL (6.4-8.2)
--- NOTE | 2021-12-04 11:51 | P.OP ---
Date of Service: 12/04/21 (Bronchoscopy with BAL) Findings and Operative Technique Patient is 66 years of age admitted with septic shock right-sided pneumonia rest x-ray today shows complete atelectasis on the right side hence the reason for bronchoscopy After obtaining informed consent from the patient's daughter she was premedicated by Dilaudid patient is on a ventilator bronchoscopy performed at bedside patient had complete occlusion of the right lung with secretions that were suctioned satisfactorily no mass was visible specimen sent off for culture patient tolerated the procedure very well
--- NOTE | 2021-12-04 11:57 | P.PN ---
Subjective Date of Service: 12/04/21 Chief Complaint: Respiratory failure and refractory shock Subjective: Improving (Patient is improving more responsive chest x-ray shows complete opacification on the right side with volume loss) Review of Systems is unable to be obtained Physical Examination - Vital Signs Temperature: 98.6 F Blood Pressure: 101/61 Pulse: 105 Respirations: 25 Pulse Ox (%): 98 - Physical Exam General: Other (Patient does open her eyes) Respiratory: Clear to auscultation bilaterally, Diminished (Diminished on the right side) Cardiovascular: No edema, Regular rate/rhythm, Normal S1 S2 - Studies Microbiology Data (last 24 hrs): 12/02/21 09:40 Blood - Blood Blood Culture Gram Stain - Final 12/02/21 09:40 Blood - Blood Gram Stain - Final 12/02/21 10:35 Blood - Blood Blood Culture Gram Stain - Final 12/02/21 10:35 Blood - Blood Gram Stain - Final Medications List Reviewed: Yes Assessment And Plan - Current Problems (Diagnosis) (1) Septic shock Current Visit: Yes Status: Acute Plan: Improving Levophed is decreased to 15 mics patient is off vasopressin gram- negative rods in the blood ID pending renal function is worse most likely ATN white count elevated suspect is from the steroids liver function test worse most likely from the septic shock severe thrombocytopenia DC hydrocortisone DC vancomycin for now (2) Atelectasis of right lung Current Visit: Yes Status: Acute Plan: Patient has atelectasis of the right lung bronchoscopy performed pleat occlusion due to purulent secretions
[2021-12-04] MEDS ORDERED: ALBUMIN HUMAN 25% 200 ML IV ONE (17:00)
[2021-12-04] MEDS ORDERED: 0.9 % SODIUM CHLORIDE 40 ML ONE (17:12)
[2021-12-04] MEDS ORDERED: NA CHLORIDE 0.9% 250 ML ONE (17:12)
[2021-12-04] MEDS ORDERED: NA CHLORIDE 0.9% 250 ML IV SCH (18:00)
--- NOTE | 2021-12-04 18:57 | RAD REPORT ---
EXAM DESCRIPTION: [facility]04/2021 6:48 pm CLINICAL HISTORY: Device placement/central venous catheter placement IMPRESSION: Central venous catheter ascends the right neck. The tip is not included within the field of view. No pneumothorax
[2021-12-04] MEDS ORDERED: ACETAMINOPHEN 500 MG TAB FT ONE (19:00)
[2021-12-04] MEDS ORDERED: ACETAMINOPHEN 160 MG/5 ML UCUP FT ONE (20:00)
[2021-12-04] MEDS ORDERED: D50W 25 GM/50 ML SYRINGE IV PRN (20:43)
[2021-12-04] MEDS ORDERED: GLUCAGON 1 MG/VIAL IM PRN (20:43)
--- NOTE | 2021-12-04 20:44 | P.PN ---
Date of Service: 12/04/21 Vital Signs Temp Pulse Resp BP Pulse Ox 101 F H 115 H 14 85/45 L 95 12/04/21 19:00 12/04/21 18:45 12/04/21 18:45 12/04/21 18:45 12/04/21 18:45 Medications Famotidine (Famotidine 20 Mg/2 Ml Vial) 20 mg IV Q24H MANDO; Protocol Last Admin: 12/04/21 08:16 Dose: 20 mg Documented by: Fentanyl Citrate (Fentanyl Citr 100 Mcg/2 Ml) 25 mcg IV Q4HP PRN PRN Reason: Pain scale 8-10 (Severe) Haloperidol Lactate (Haloperidol Lact 5 Mg/Ml Inj) 2 mg IV Q4HP PRN PRN Reason: AGITATION Phenylephrine HCl 50 mg/ (Dextrose) 255 mls @ 6.12 mls/hr IV TITR MANDO; Protocol Last Titration: 12/04/21 07:00 Dose: Infused Documented by: Norepinephrine Bitartrate 8 mg (/ Dextrose) 508 mls @ 3.81 mls/hr IV TITR MANDO; Protocol Last Titration: 12/04/21 18:45 Dose: 23 mcg/min, 87.6 mls/hr Documented by: Meropenem 1,000 mg/ Sodium (Chloride) 100 mls @ 200 mls/hr IV Q12HR MANDO Last Admin: 12/04/21 09:00 Dose: Not Given Documented by: Sodium Chloride (Sodium Chloride) 250 mls @ 0 mls/hr IV .Q0M MANDO Lorazepam (Lorazepam 2 Mg/Ml Vial) 2 mg IV Q2HP PRN PRN Reason: Sedation-Propofol not effect Last Admin: 12/03/21 11:46 Dose: 2 mg Documented by: Microbiology Results 12/02/21 09:40 Blood - Blood Aerobic Blood Culture - Preliminary Gram Neg Alan 12/02/21 09:40 Blood - Blood Blood Culture Gram Stain - Final 12/02/21 09:40 Blood - Blood Anaerobic Blood Culture - Preliminary Gram Neg Alan 12/02/21 09:40 Blood - Blood Gram Stain - Final 12/02/21 10:35 Blood - Blood Aerobic Blood Culture - Preliminary Gram Neg Alan 12/02/21 10:35 Blood - Blood Blood Culture Gram Stain - Final 12/02/21 10:35 Blood - Blood Anaerobic Blood Culture - Preliminary Gram Neg Alan 12/02/21 10:35 Blood - Blood Gram Stain - Final Assessment/ Plan: Nephrology Limited IH/ ROS due to AMS Case reviewed with the nurse and her daughter Vitals, medications, blood work and imaging reviewed in the chart. General: Unresponsive HEENT: Atraumatic Neck: Supple Respiratory: Clear to auscultation bilaterally Cardiovascular: No rubs, Edema Gastrointestinal: Soft and benign, Non-distended Musculoskeletal: No clubbing, No contractures Integumentary: No rashes, No cyanosis Neurological: Abnormal tone Laboratory Data (last 24 hrs) 12/02/21 10:05: PT 12.6 H, INR 1.14, APTT 24.7 12/02/21 10:05: WBC 17.10 H, Hgb 13.4, Hct 41.8, Plt Count 52 L Imagings Data: EXAM DESCRIPTION: CT - Chest Abd Pelvis Wo Con - 12/02/2021 12:49 pm CLINICAL HISTORY: AMS/Sepsis;Congestion COMPARISON: Thorax Wo Con dated 03/22/2021; Chest For Pe Angio dated 09/22/2020; Abdomen Pelvis W Contrast dated 04/25/2021 TECHNIQUE: During dynamic enhancement using 100 milliliters nonionic IV contrast, axial 5 millimeter thick images of the chest, abdomen and pelvis were obtained. Biphasic technique was utilized through the abdomen. Oral contrast was administered. All CT scans are performed using dose optimization technique as appropriate and may include automated exposure control or mA/KV adjustment according to patient size. FINDINGS: Thyromegaly again noted. Extensive baseline interstitial thickening is present in both lung sommer, more pronounced on the right. There is right hemithorax volume loss relative to the left also seen as stable. Scattered areas of nodularity in the lung parenchyma show no change in size. No endobronchial lesions seen. Increased wound glass opacities are present in the left lung field. Respiratory motion degradation decreases overall sensitivity of assessment. Increased interstitial opacification noted in the lower left lung field and in the posterior lower right lung field compared to the prior study. Cardiomegaly without pericardial effusion seen. Right shift of the heart and mediastinal structures has not changed. No pneumothorax or pleural effusion. No chest wall mass or abnormal axillary lymphadenopathy seen. Mediastinal and hilar lymph node pattern has not changed. No bulky lymphadenopathy seen. Pulmonary arteries are prominent. The liver, spleen and pancreas show no significant findings. Gallbladder is well filled and contains multiple gallstones. No biliary tree dilatation. Right kidney is larger than the left. Function cannot be assessed on a noncontrast study. A 15-18 millimeter cluster of multiple calcifications seen in the calices in parenchyma of the lower right kidney. There is moderate dilatation of the pelvis and calices present. Multiple 3-5 mm mid right renal calyx calculi are present. Approximately 2 centimeter calcification is seen layering in the dependent portion of the dilated pelvis. There is a 15 millimeter oval calcification at the right UPJ. More distally the right ureter is not abnormally dilated. A few nonobstructing calyx and parenchymal calculi noted on the left. Punctate 1-2 mm size calcifications seen in the non dilated left renal pelvis. No adrenal abnormalities. Urinary bladder is fully contracted around a Perez catheter. Uterus has a lobulated contour that may indicate presence of 1 or more fibroids. Atrophic ovaries are identified. No acute stomach or small bowel finding. Sigmoid anastomotic site shows no acute finding. Large amount of stool is present dilating the rectum to 9 cm. Sigmoid stool volume is moderate. No colon mass lesions seen. No free air, free fluid or inflammatory stranding. No hernia, mass or bulky lymphadenopathy. Disc and bone degenerative changes are present. No pathologic bone process seen. IVC filter is in place. IMPRESSION: Patient has extensive baseline interstitial fibrotic change. Additional areas of interstitial opacification and ground-glass opacification are present compared to 03/22/2021 imaging. Progressive interstitial fibrotic disease possible. Superimposed interstitial and alveolar infiltrate should be considered. There is no large new mass or consolidation. Multi stone cholelithiasis as previously seen. No biliary tree dilatation. Approximately 15 millimeter right-side UPJ calculus with moderate dilatation of the pelvis and calices. The UPJ calculus may be partially or intermittently obstructive. Pelvis and calices are only slightly larger than seen on 04/25/2021 imaging. Patient has multiple additional nonobstructing pelvis, calyx and parenchymal calculi on the right. No acute GI or process seen. There is a large stool volume dilating the rectum to 9 cm. Conclusions/Impression: LUISANA likely Oliguric ATN in the setting septic shock complicated by Etolodac. CKD II with proteinuria -No NSAIDs -Maintain BP support -Surgery consult for HD CVC -Initiate HD in the AM; daughter agrees -Hepatitis panel ordered Hyponatremia -Advance nutrition as tolerated Nephrolithiasis -Consider urology evaluation for possible UPJ obstruction -KUB in the am to evaluate DM II with CKD -RISS Severe malnutrition Hypoalbuminemia -Advance nutrition as tolerated -IV Albumin X1 today Anemia in chronic illness -Monitor H&H Acute respiratory failure with hypercapnea -Ventilatory support as ordered -Wean Oxygen as tolerated Sepsis/ Septic shock Acute hepatitis likely due to shock -Continue pressor support -Continue Abx; monitor vanco level -Continue hydrocortisone Toxic metabolic encephalopathy due to sepsis -Continue abx Case reviewed with Dr. Ludwig and Dr. Pan
[2021-12-04] MEDS ORDERED: MANNITOL 25% 12.5 GM/50 ML VIAL IV PRN (20:46)
[2021-12-04] MEDS ORDERED: NA CHLORIDE 0.9% 1,000 ML IV PRN (20:46)
[2021-12-04 20:48] LABS: Absolute Lymphocytes (CBC) 1.4 K/uL (0.7-4.9); Hematocrit 31.9 % (36.0-45.0); Lymphocytes % 4.2 % (15.3-44.8); MPV 8.8 fL (7.6-11.3); RBC Red Blood Cell Count 3.69 M/uL (3.86-4.86)
[2021-12-04] MEDS ORDERED: HEPARIN 5000 UNIT/ML 1 ML VIAL SQ SCH (21:00)
[2021-12-04] MEDS: INSULIN -REGULAR HUMAN 50 UNIT/0.5 ML ML SQ SCH (21:33)
--- NOTE | 2021-12-05 00:04 | CON ---
Date of Consultation: 12/04/2021 Reason For Consultation: Patient needs urgent dialysis. History Of Present Illness: Patient is a 66-year-old female, who came in with altered mental status. She is currently intubated and hypotensive, on vasopressors and with atelectasis of the right lung, which required bronchoscopy earlier today and patient also has increasing BUN and creatinine with fl uid overload and requiring urgent dialysis, therefore I was consulted for line placement. Please not e, patient already has a central line in the right groin. Patient is intubated and unresponsive. Hi story is obtained from the electronic medical records. Past Medical History: Significant for hypertension, type 2 diabetes, history of DVT and pulmonary em bolus, COPD, secondary hypothyroidism, asthma. Past Surgical History: Bilateral tubal ligation, kidney stone removal, cyst on the thyroid excision, intracutaneous fistula repair. Allergies: NONE. Social History: Patient does not smoke or drink. Family History: Significant for heart disease. Physical Examination: VITAL SIGNS: Significant for blood pressure 95/56, pulse rate of 114, respiratory rate of 16, O2 sat uration of 94. Laboratory Data: Reviewed. White count is 30.6, platelets are 25, H and H are 10.7 and 32.7. INR i s 1.14. Chemistry reviewed. AST and ALT are 835 and 534. BUN is 139, creatinine is 4.18, and CO2 i s 21. Assessment: A 66-year-old female with multiple medical problems with acute renal failure and septic shock. Recommendations: Informed consent was obtained from family for placement of a Edvin catheter for t emporary dialysis. Risks, benefits, and alternatives were explained in detail. They understood and agreed. I ordered platelets to be given as we were doing the procedure. See procedure note below. Procedure Note: Patient was prepped and draped in the usual sterile fashion. As patient was unrespo nsive, there was no need for lidocaine. 18-gauge needle was used to access first the IJ; however, th e guidewire could not be passed. Again, there was good blood flow in the vein, but resistance was ap proximately at 10 cm and then the subclavian approach was started on the right side and again easily accessed the subclavian vein. Guidewire was passed and this time there was resistance at about 30 cm , so I felt the catheter most likely was going into the neck. However, with different manipulations, we could not get the catheter going down towards the heart and given a thromboembolic history, I am not sure whether there was abnormal anatomy accounting for this. However, as she needs dialysis and she already has the right groin access for triple-lumen catheter, felt even it goes in the neck, if i t is functioning, it would serve the purpose temporarily. So, Seldinger technique was used, guidewir e passed, and vein dilated and Edvin catheter placed and flushed with saline with good blood flow. Secured with 3-0 nylon and then sterile dressing applied. Chest x-ray was obtained, which showed th e catheter to be going into the neck. At this point, I contacted Dr. Haque. We discussed the ca se and given the risk of attempting another site at this time in a very gravely ill patient, we decid ed to try this approach for dialysis and if it is successful and if she needs it temporarily, we are good. If not, further attempt would have to be made at another site including possibly the left side and the left groin. Patient tolerated the procedure in fair condition. There were no changes in he r bowel findings during the procedure. /MODL Voice ID: [id number] Report ID: [id number]
[2021-12-05 05:23] LABS: Absolute Lymphocytes (CBC) 1.4 K/uL (0.7-4.9); Hematocrit 30.7 % (36.0-45.0); Lymphocytes % 4.7 % (15.3-44.8); MPV 9.7 fL (7.6-11.3)
[2021-12-05 06:15] LABS: Albumin 2.8 g/dL (3.4-5.0); Bilirubin Total 1.4 mg/dL (0.2-1.0); Magnesium 2.3 mg/dL (1.8-2.4); Phosphorus 7.4 mg/dL (2.5-4.9); Potassium 4.6 mmol/L (3.5-5.1); Protein, Total 6.1 g/dL (6.4-8.2); Uric Acid 19.5 mg/dL (2.6-6.0)
[2021-12-05] MEDS: INSULIN -REGULAR HUMAN 50 UNIT/0.5 ML ML SQ SCH ×4 (07:30→20:35)
--- NOTE | 2021-12-05 08:23 | RAD REPORT ---
EXAM DESCRIPTION: RAD - Chest Single View - 12/05/2021 5:56 am CLINICAL HISTORY: pneumonia Chest pain. COMPARISON: Chest Single View dated 12/04/2021; Chest Single View dated 12/04/2021; Chest Single View dated 12/03/2021; Chest Single View dated 12/02/2021 FINDINGS: Portable technique limits examination quality. Tip of the endotracheal tube is at the level of the superior aortic arch. Enteric tube descends into the upper abdomen. Bilateral pulmonary opacities, greater on the right, unchanged. Cardiac silhouette incompletely assessed. Right-sided venous catheter extends superiorly into the neck with its tip not included on the radiograph.
--- NOTE | 2021-12-05 08:24 | RAD REPORT ---
EXAM DESCRIPTION: RAD - Abdomen 1 View (KUB) - 12/05/2021 5:56 am CLINICAL HISTORY: Right UPJ stone. Fecal Impaction? Pain COMPARISON: ABDOMEN 1 VIEW KUB dated 12/12/2014; ABDOMEN 1 VIEW KUB dated 11/06/2011 FINDINGS: General paucity of bowel gas is noted. There is evidence of prominent stool throughout the colon. Enteric tube tip appears within a distended stomach. IVC filled in place. Large oblong calcification is seen in the right renal pelvis. IMPRESSION: Fecal retention likely present. Large stone is present right renal pelvis.
[2021-12-05] MEDS: Meropenem 1,000 MG in NA CHLORIDE 0.9% 100 ML IV SCH (09:24)
[2021-12-05] MEDS: NOREPINEPHRINE 8 MG in Dextrose 5%-Water 500 ML IV SCH ×2 (09:25→21:24)
[2021-12-05] MEDS: FAMOTIDINE 20 MG/2 ML VIAL IV SCH (09:25)
--- NOTE | 2021-12-05 12:14 | P.PN ---
Subjective Date of Service: 12/05/21 Chief Complaint: Multiorgan failure patient on the ventilator Currently condition is stable cath was inserted yesterday start dialysis Review of Systems is unable to be obtained Physical Examination - Vital Signs Temperature: 98.3 F Blood Pressure: 95/61 Pulse: 95 Respirations: 18 Pulse Ox (%): 97 - Physical Exam General: Other (Minimally response) Respiratory: Clear to auscultation bilaterally, Diminished Cardiovascular: Edema - Studies Microbiology Data (last 24 hrs): 12/02/21 09:40 Blood - Blood Aerobic Blood Culture - Final Gram Neg Alan Klebsiella Pneumoniae 12/02/21 09:40 Blood - Blood Blood Culture Gram Stain - Final 12/02/21 09:40 Blood - Blood Anaerobic Blood Culture - Final Gram Neg Alan Klebsiella Pneumoniae 12/02/21 09:40 Blood - Blood Gram Stain - Final 12/02/21 10:35 Blood - Blood Aerobic Blood Culture - Final Gram Neg Alan Klebsiella Pneumoniae 12/02/21 10:35 Blood - Blood Blood Culture Gram Stain - Final 12/02/21 10:35 Blood - Blood Anaerobic Blood Culture - Final Gram Neg Alan Klebsiella Pneumoniae 12/02/21 10:35 Blood - Blood Gram Stain - Final Medications List Reviewed: Yes Assessment And Plan - Current Problems (Diagnosis) (1) Septic shock Current Visit: Yes Status: Acute Plan: Patient is still on Levophed Klebsiella isolated worsening of renal and liver function number cytopenia has improved s/p platelet transfusion count is also declining patient is on FiO2 of 40% (2) Atelectasis of right lung Current Visit: Yes Status: Acute Plan: Atelectasis has improved status post bronchoscopy
[2021-12-05 12:37] LABS: UR PROTEIN 242.1 mg/dL (<11.9); Urine Protein/Creatinine Ratio 2.72 ratio (<0.15)
[2021-12-05 19:36] LABS: Urine Appearance Cloudy (Clear); Urine Blood 3+ (Negative); Urine Color Yellow (Yellow); Urine Glucose Negative (Negative); Urine Protein 2+ (Negative); Urine Urobilinogen 0.2 mg/dL (0.2-1.0); Urine pH 5.5 (5.0-7.0)
[2021-12-05 19:37] LABS: Urine Microscopic Reflex ORDER UMIC
[2021-12-05 19:50] LABS: Urine Bacteria LOADED /HPF (<20)
[2021-12-05 19:55] LABS: Urine Bilirubin 1+ (Negative)
[2021-12-05] MEDS ORDERED: LACTULOSE 20 GM/30 ML UCUP FT ONE (20:00)
--- NOTE | 2021-12-05 20:02 | P.PN ---
Date of Service: 12/05/21 Vital Signs Temp Pulse Resp BP Pulse Ox 98.2 F 101 H 22 H 83/51 L 97 12/05/21 16:00 12/05/21 18:45 12/05/21 18:45 12/05/21 18:45 12/05/21 18:45 Medications Dextrose (D50w 25 Gm/50 Ml Syringe) 12.5 gm IV PRN PRN PRN Reason: HYPOGLYCEMIA Famotidine (Famotidine 20 Mg/2 Ml Vial) 20 mg IV Q24H MANDO; Protocol Last Admin: 12/05/21 09:25 Dose: 20 mg Documented by: Fentanyl Citrate (Fentanyl Citr 100 Mcg/2 Ml) 25 mcg IV Q4HP PRN PRN Reason: Pain scale 8-10 (Severe) Glucagon (Glucagon 1 Mg/Vial) 1 mg IM 1X PRN PRN Reason: HYPOGLYCEMIA Haloperidol Lactate (Haloperidol Lact 5 Mg/Ml Inj) 2 mg IV Q4HP PRN PRN Reason: AGITATION Heparin Sodium (Porcine) (Heparin 1,000 Unit/Ml Vial) 6,000 unit IV EVERY HD PRN PRN Reason: AFTER EACH Phenylephrine HCl 50 mg/ (Dextrose) 255 mls @ 6.12 mls/hr IV TITR MANDO; Protocol Last Titration: 12/04/21 07:00 Dose: Infused Documented by: Norepinephrine Bitartrate 8 mg (/ Dextrose) 508 mls @ 3.81 mls/hr IV TITR MANDO; Protocol Last Titration: 12/05/21 19:30 Dose: 12 mcg/min, 45.7 mls/hr Documented by: Sodium Chloride (Sodium Chloride) 250 mls @ 0 mls/hr IV .Q0M MANDO Albumin Human (Albumin 25%) 50 mls @ 100 mls/hr IV EVERY HD MANDO Meropenem 500 mg/ Sodium (Chloride) 100 mls @ 200 mls/hr IV Q24H MANDO Insulin Human Regular (Insulin -Regular Human 50 Unit/0.5 Ml Ml) 0 unit SQ ACHS MANDO; Protocol Last Admin: 12/05/21 16:30 Dose: Not Given Documented by: Lorazepam (Lorazepam 2 Mg/Ml Vial) 2 mg IV Q2HP PRN PRN Reason: Sedation-Propofol not effect Last Admin: 12/03/21 11:46 Dose: 2 mg Documented by: Mannitol (Mannitol 25% 12.5 Gm/50 Ml Vial) 12.5 gm IV EVERY HD PRN PRN Reason: Titrate to SBP (MUST DEFINE) Microbiology Results 12/02/21 09:40 Blood - Blood Aerobic Blood Culture - Final Gram Neg Alan Klebsiella Pneumoniae 12/02/21 09:40 Blood - Blood Blood Culture Gram Stain - Final 12/02/21 09:40 Blood - Blood Anaerobic Blood Culture - Final Gram Neg Alan Klebsiella Pneumoniae 12/02/21 09:40 Blood - Blood Gram Stain - Final 12/02/21 10:35 Blood - Blood Aerobic Blood Culture - Final Gram Neg Alan Klebsiella Pneumoniae 12/02/21 10:35 Blood - Blood Blood Culture Gram Stain - Final 12/02/21 10:35 Blood - Blood Anaerobic Blood Culture - Final Gram Neg Alan Klebsiella Pneumoniae 12/02/21 10:35 Blood - Blood Gram Stain - Final Assessment/ Plan: Nephrology Limited IH/ ROS due to AMS Nurse reports vaginal stool discharge Case reviewed with the bedside and HD nurse. Vitals, medications, blood work and imaging reviewed in the chart. General: Unresponsive HEENT: Atraumatic Neck: Supple Respiratory: Clear to auscultation bilaterally Cardiovascular: No rubs, Edema Gastrointestinal: Soft and benign, Non-distended Musculoskeletal: No clubbing, No contractures Integumentary: No rashes, No cyanosis Neurological: Abnormal tone Greater than 30min patient care Laboratory Data (last 24 hrs) 12/02/21 10:05: PT 12.6 H, INR 1.14, APTT 24.7 12/02/21 10:05: WBC 17.10 H, Hgb 13.4, Hct 41.8, Plt Count 52 L Imagings Data: EXAM DESCRIPTION: CT - Chest Abd Pelvis Wo Con - 12/02/2021 12:49 pm CLINICAL HISTORY: AMS/Sepsis;Congestion COMPARISON: Thorax Wo Con dated 03/22/2021; Chest For Pe Angio dated 09/22/2020; Abdomen Pelvis W Contrast dated 04/25/2021 TECHNIQUE: During dynamic enhancement using 100 milliliters nonionic IV contrast, axial 5 millimeter thick images of the chest, abdomen and pelvis were obtained. Biphasic technique was utilized through the abdomen. Oral contrast wa s administered. All CT scans are performed using dose optimization technique as appropriate and may include automated exposure control or mA/KV adjustment according to patient size. FINDINGS: Thyromegaly again noted. Extensive baseline interstitial thickening is present in both lung sommer, more pronounced on the right. There is right hemithorax volume loss relative to the left also seen as stable. Scattered areas of nodularity in the lung parenchyma show no change in size. No endobronchial lesions seen. Increased wound glass opacities are present in the left lung field. Respiratory motion degradation decreases overall sensitivity of assessment. Increased interstitial opacification noted in the lower left lung field and in the posterior lower right lung field compared to the prior study. Cardiomegaly without pericardial effusion seen. Right shift of the heart and mediastinal structures has not changed. No pneumothorax or pleural effusion. No chest wall mass or abnormal axillary lymphadenopathy seen. Mediastinal and hilar lymph node pattern has not changed. No bulky lymphadenopathy seen. Pulmonary arteries are prominent. The liver, spleen and pancreas show no significant findings. Gallbladder is well filled and contains multiple gallstones. No biliary tree dilatation. Right kidney is larger than the left. Function cannot be assessed on a noncontrast study. A 15-18 millimeter cluster of multiple calcifications seen in the calices in parenchyma of the lower right kidney. There is moderate dilatation of the pelvis and calices present. Multiple 3-5 mm mid right renal calyx calculi are present. Approximately 2 centimeter calcification is seen layering in the dependent portion of the dilated pelvis. There is a 15 millimeter oval calcification at the right UPJ. More distally the right ureter is not abnormally dilated. A few nonobstructing calyx and parenchymal calculi noted on the left. Punctate 1-2 mm size calcifications seen in the non dilated left renal pelvis. No adrenal abnormalities. Urinary bladder is fully contracted around a Perez catheter. Uterus has a lobulated contour that may indicate presence of 1 or more fibroids. Atrophic ovaries are identified. No acute stomach or small bowel finding. Sigmoid anastomotic site shows no acute finding. Large amount of stool is present dilating the rectum to 9 cm. Sigmoid stool volume is moderate. No colon mass lesions seen. No free air, free fluid or inflammatory stranding. No hernia, mass or bulky lymphadenopathy. Disc and bone degenerative changes are present. No pathologic bone process seen. IVC filter is in place. IMPRESSION: Patient has extensive baseline interstitial fibrotic change. Additional areas of interstitial opacification and ground-glass opacification are present compared to 03/22/2021 imaging. Progressive interstitial fibrotic disease possible. Superimposed interstitial and alveolar infiltrate should be considered. There is no large new mass or consolidation. Multi stone cholelithiasis as previously seen. No biliary tree dilatation. Approximately 15 millimeter right-side UPJ calculus with moderate dilatation of the pelvis and calices. The UPJ calculus may be partially or intermittently obstructive. Pelvis and calices are only slightly larger than seen on 04/25/2021 imaging. Patient has multiple additional nonobstructing pelvis, calyx and parenchymal calculi on the right. No acute GI or process seen. There is a large stool volume dilating the rectum to 9 cm. Conclusions/Impression: LUISANA likely Oliguric ATN in the setting septic shock complicated by Etolodac. CKD II with proteinuria -No NSAIDs -Maintain BP support -HD initiated today -Hepatitis pending Hyponatremia -Advance nutrition as tolerated Nephrolithiasis -Consider urology evaluation for possible UPJ obstruction -KUB reviewed DM II with CKD -RISS Severe malnutrition Hypoalbuminemia -Advance nutrition as tolerated -IV Albumin prn Anemia in chronic illness -Monitor H&H Acute respiratory failure with hypercapnea -Ventilatory support as ordered -Wean Oxygen as tolerated Sepsis/ Septic shock/ Klebsiella Pneumoniae Acute hepatitis likely due to shock -Continue pressor support -Continue Abx; monitor vanco level -Continue hydrocortisone Toxic metabolic encephalopathy due to sepsis -Continue abx Case discussed with Dr. Mathur
[2021-12-05] MEDS: Meropenem 500 MG in NA CHLORIDE 0.9% 100 ML IV SCH (20:21)
[2021-12-06] MEDS ORDERED: NA CHLORIDE 0.9% 250 ML ONE (01:27)
[2021-12-06] MEDS ORDERED: Phenylephrine HCl 10 MG/ML 1 ML VIAL ONE (01:27)
[2021-12-06] MEDS: NOREPINEPHRINE 8 MG in Dextrose 5%-Water 500 ML IV SCH ×4 (03:27→18:57)
[2021-12-06 05:15] LABS: Absolute Lymphocytes (CBC) 0.5 K/uL (0.7-4.9); Hematocrit 29.9 % (36.0-45.0); MPV 10.7 fL (7.6-11.3); RBC Red Blood Cell Count 3.48 M/uL (3.86-4.86)
[2021-12-06 05:43] LABS: Albumin 2.7 g/dL (3.4-5.0); Bilirubin Total 1.2 mg/dL (0.2-1.0); Potassium 3.9 mmol/L (3.5-5.1); Protein, Total 5.9 g/dL (6.4-8.2)
[2021-12-06 06:53] LABS: Blood Morphology Comment NOT SEEN (NOT SEEN); Platelet Estimate DECR
[2021-12-06] MEDS: INSULIN -REGULAR HUMAN 50 UNIT/0.5 ML ML SQ SCH ×3 (07:30→18:12)
--- NOTE | 2021-12-06 07:41 | RAD REPORT ---
EXAM DESCRIPTION: RAD - Chest Single View - 12/06/2021 6:01 am CLINICAL HISTORY: resp failure COMPARISON: Portable 12/05/2021 TECHNIQUE: AP portable chest image was obtained 12/06/2021 6:01 am . FINDINGS: Endotracheal tube tip is mid aortic arch level 3 cm above the [place]. Position has not christiano nged significantly. NG tube extends below the diaphragm, off the field of view. Lung volumes are low, reduced from the prior study. Right lung field pleural and parenchymal opacific ation is slightly worse than prior study. Left perihilar lung parenchymal opacification also slightly worse. Much of this apparent progression is due to under penetrated film technique. Heart size is stable. Pulmonary vasculature is prominent. No measurable pleural effusion and no pneu mothorax. IMPRESSION: Worsening bilateral pleural and parenchymal opacification from 12/05 examination. Severity of progression is exaggerated due to under penetrated film technique.
[2021-12-06] MEDS: FAMOTIDINE 20 MG/2 ML VIAL IV SCH (07:48)
--- NOTE | 2021-12-06 11:23 | PN ---
Date of Progress Note: 12/04/2021 Ms. Jain is 66. She was intubated. She came into the hospital with sepsis, altered mental status , pulmonary embolus, hypertension, diabetes, and dyslipidemia. She is on Xarelto. She was seen by Siddharth Lawson yesterday for tachycardia that he thought was sinus tachycardia related to her overall illn ess. Echocardiogram was ordered by him. The echocardiogram today showed normal ejection fraction wi thout any effusion, normal wall motion. Her sinus tachycardia remained persistent, but has improved slightly since yesterday. We would recommend continuing her present regimen and no further cardiac w orkup at this point. AYAKA/BERTIN Voice ID: [id number] Report ID: [id number]
--- NOTE | 2021-12-06 12:14 | P.OP ---
Preoperative diagnosis: Need for Hemodialysis Postoperative diagnosis: Need for Hemodialysis Primary procedure: Placement of LEFT femoral Temporary hemodialysis catheter Secondary procedure: ultrasound and micro set used Anesthesia: local 1% lidocaine Estimated blood loss: <5cc Specimen: none Findings: dark non-pulsatile blood returned Complications: None Implants: mahurker temporary HD catheter placed Transferred to: ICU Condition: Critical
[2021-12-06] MEDS ORDERED: MICAFUNGIN SODIUM 100 MG VIAL IV SCH (12:47)
--- NOTE | 2021-12-06 12:50 | P.PN ---
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 according to the Review of Systems is unable to be obtained Physical Examination - Vital Signs Temperature: 98.3 F Blood Pressure: 115/69 Pulse: 103 Respirations: 23 Pulse Ox (%): 97 - Physical Exam General: Unresponsive Respiratory: Clear to auscultation bilaterally, Diminished Cardiovascular: Edema Gastrointestinal: Normal bowel sounds - Studies Medications List Reviewed: Yes Assessment And Plan - Current Problems (Diagnosis) (1) Septic shock Current Visit: Yes Status: Acute Plan: Septic shock patient's condition is worse white count is significantly elevated we will add vancomycin and micafungin high risk for a fungal superinfection white count is now 52,000 severe pneumonia thrombocytopenia (2) Atelectasis of right lung Current Visit: Yes Status: Acute Plan: Chest x-ray has improved patient is significant consolidation on the right side
[2021-12-06] MEDS ORDERED: VANCOMYCIN 2 GM in NA CHLORIDE 0.9% 500 ML IVPB ONE (14:00)
[2021-12-06] MEDS: MICAFUNGIN SODIUM 100 MG in NA CHLORIDE 0.9% 100 ML IV SCH (14:27)
[2021-12-06] MEDS: LORazepam 2 MG/ML VIAL IV PRN ×2 (17:20→19:50)
[2021-12-06] MEDS: Meropenem 500 MG in NA CHLORIDE 0.9% 100 ML IV SCH (20:29)
--- NOTE | 2021-12-06 21:06 | P.PN ---
Date of Service: 12/06/21 Vital Signs Temp Pulse Resp BP Pulse Ox 98.8 F 118 H 22 H 139/115 H 100 12/06/21 20:00 12/06/21 20:00 12/06/21 20:00 12/06/21 20:00 12/06/21 20:00 Medications Dextrose (D50w 25 Gm/50 Ml Syringe) 12.5 gm IV PRN PRN PRN Reason: HYPOGLYCEMIA Famotidine (Famotidine 20 Mg/2 Ml Vial) 20 mg IV Q24H MANDO; Protocol Last Admin: 12/06/21 07:48 Dose: 20 mg Documented by: Fentanyl Citrate (Fentanyl Citr 100 Mcg/2 Ml) 25 mcg IV Q4HP PRN PRN Reason: Pain scale 8-10 (Severe) Glucagon (Glucagon 1 Mg/Vial) 1 mg IM 1X PRN PRN Reason: HYPOGLYCEMIA Haloperidol Lactate (Haloperidol Lact 5 Mg/Ml Inj) 2 mg IV Q4HP PRN PRN Reason: AGITATION Heparin Sodium (Porcine) (Heparin 1,000 Unit/Ml Vial) 4,000 unit IV EVERY HD PRN PRN Reason: DIALYSIS CATHETER CARE Last Admin: 12/06/21 16:33 Dose: 4,000 unit Documented by: Phenylephrine HCl 50 mg/ (Dextrose) 255 mls @ 6.12 mls/hr IV TITR MANDO; Protocol Last Titration: 12/06/21 05:00 Dose: 0 mcg/min, 0 mls/hr Documented by: Norepinephrine Bitartrate 8 mg (/ Dextrose) 508 mls @ 3.81 mls/hr IV TITR MANDO; Protocol Last Titration: 12/06/21 20:15 Dose: 22 mcg/min, 83.8 mls/hr Documented by: Sodium Chloride (Sodium Chloride) 250 mls @ 0 mls/hr IV .Q0M MANDO Albumin Human (Albumin 25%) 50 mls @ 100 mls/hr IV EVERY HD MANDO Meropenem 500 mg/ Sodium (Chloride) 100 mls @ 200 mls/hr IV Q24H MANDO Last Admin: 12/06/21 20:29 Dose: 100 mls Documented by: Micafungin Sodium 100 mg/ (Sodium Chloride) 100 mls @ 100 mls/hr IV Q24H MANDO Last Admin: 12/06/21 14:27 Dose: 100 mls Documented by: Vancomycin HCl 1 gm/ Sodium (Chloride) 250 mls @ 250 mls/hr IVPB AFTER EACH DIALYSIS MANDO Last Admin: 12/06/21 17:21 Dose: 250 mls Documented by: Insulin Human Regular (Insulin -Regular Human 50 Unit/0.5 Ml Ml) 0 unit SQ Q6HR MANDO; Protocol Lorazepam (Lorazepam 2 Mg/Ml Vial) 2 mg IV Q2HP PRN PRN Reason: Sedation-Propofol not effect Last Admin: 12/06/21 19:50 Dose: 2 mg Documented by: Mannitol (Mannitol 25% 12.5 Gm/50 Ml Vial) 12.5 gm IV EVERY HD PRN PRN Reason: Titrate to SBP (MUST DEFINE) Microbiology Results 12/02/21 09:40 Blood - Blood Aerobic Blood Culture - Final Gram Neg Alan Klebsiella Pneumoniae 12/02/21 09:40 Blood - Blood Blood Culture Gram Stain - Final 12/02/21 09:40 Blood - Blood Anaerobic Blood Culture - Final Gram Neg Alan Klebsiella Pneumoniae 12/02/21 09:40 Blood - Blood Gram Stain - Final 12/02/21 10:35 Blood - Blood Aerobic Blood Culture - Final Gram Neg Alan Klebsiella Pneumoniae 12/02/21 10:35 Blood - Blood Blood Culture Gram Stain - Final 12/02/21 10:35 Blood - Blood Anaerobic Blood Culture - Final Gram Neg Alan Klebsiella Pneumoniae 12/02/21 10:35 Blood - Blood Gram Stain - Final Assessment/ Plan: Nephrology Limited IH/ ROS due to AMS Nurse reports vaginal stool discharge Vasopressors adjusted overnight Vitals, medications, blood work and imaging reviewed in the chart. General: Unresponsive HEENT: Atraumatic Neck: Supple Respiratory: Clear to auscultation bilaterally Cardiovascular: No rubs, Edema Gastrointestinal: Soft and benign, Non-distended Musculoskeletal: No clubbing, No contractures Integumentary: No rashes, No cyanosis Neurological: Abnormal tone Greater than 30min patient care Laboratory Data (last 24 hrs) 12/02/21 10:05: PT 12.6 H, INR 1.14, APTT 24.7 12/02/21 10:05: WBC 17.10 H, Hgb 13.4, Hct 41.8, Plt Count 52 L Imagings Data: EXAM DESCRIPTION: CT - Chest Abd Pelvis Wo Con - 12/02/2021 12:49 pm CLINICAL HISTORY: AMS/Sepsis;Congestion COMPARISON: Thorax Wo Con dated 03/22/2021; Chest For Pe Angio dated 09/22/2020; Abdomen Pelvis W Contrast dated 04/25/2021 TECHNIQUE: During dynamic enhancement using 100 milliliters nonionic IV contrast, axial 5 millimeter thick images of the chest, abdomen and pelvis were obtained. Biphasic technique was utilized through the abdomen. Oral contrast was administered. All CT scans are performed using dose optimization technique as appropriate and may include automated exposure control or mA/KV adjustment according to patient size. FINDINGS: Thyromegaly again noted. Extensive baseline interstitial thickening is present in both lung sommer, more pronounced on the right. There is right hemithorax volume loss relative to the left also seen as stable. Scattered areas of nodularity in the lung parenchyma show no change in size. No endobronchial lesions seen. Increased wound glass opacities are present in the left lung field. Respiratory motion degradation decreases overall sensitivity of assessment. Increased interstitial opacification noted in the lower left lung field and in the posterior lower right lung field compared to the prior study. Cardiomegaly without pericardial effusion seen. Right shift of the heart and mediastinal structures has not changed. No pneumothorax or pleural effusion. No chest wall mass or abnormal axillary lymphadenopathy seen. Mediastinal and hil ar lymph node pattern has not changed. No bulky lymphadenopathy seen. Pulmonary arteries are prominent. The liver, spleen and pancreas show no significant findings. Gallbladder is well filled and contains multiple gallstones. No biliary tree dilatation. Right kidney is larger than the left. Function cannot be assessed on a noncontrast study. A 15-18 millimeter cluster of multiple calcifications seen in the calices in parenchyma of the lower right kidney. There is moderate dilatation of the pelvis and calices present. Multiple 3-5 mm mid right renal calyx calculi are present. Approximately 2 centimeter calcification is seen layering in the dependent portion of the dilated pelvis. There is a 15 millimeter oval calcification at the right UPJ. More distally the right ureter is not abnormally dilated. A few nonobstructing calyx and parenchymal calculi noted on the left. Punctate 1-2 mm size calcifications seen in the non dilated left renal pelvis. No adrenal abnormalities. Urinary bladder is fully contracted around a Perez catheter. Uterus has a lobulated contour that may indicate presence of 1 or more fibroids. Atrophic ovaries are identified. No acute stomach or small bowel finding. Sigmoid anastomotic site shows no acute finding. Large amount of stool is present dilating the rectum to 9 cm. Sigmoid stool volume is moderate. No colon mass lesions seen. No free air, free fluid or inflammatory stranding. No hernia, mass or bulky lymphadenopathy. Disc and bone degenerative changes are present. No pathologic bone process seen. IVC filter is in place. IMPRESSION: Patient has extensive baseline interstitial fibrotic change. Additional areas of interstitial opacification and ground-glass opacification are present compared to 03/22/2021 imaging. Progressive interstitial fibrotic disease possible. Superimposed interstitial and alveolar infiltrate should be considered. There is no large new mass or consolidation. Multi stone cholelithiasis as previously seen. No biliary tree dilatation. Approximately 15 millimeter right-side UPJ calculus with moderate dilatation of the pelvis and calices. The UPJ calculus may be partially or intermittently obstructive. Pelvis and calices are only slightly larger than seen on 04/25/2021 imaging. Patient has multiple additional nonobstructing pelvis, calyx and parenchymal calculi on the right. No acute GI or process seen. There is a large stool volume dilating the rectum to 9 cm. Conclusions/Impression: LUISANA likely Oliguric ATN in the setting septic shock complicated by Etolodac. CKD II with proteinuria -No NSAIDs -Maintain BP support -HD initiated [id number]; HD today -Hepatitis pending Hyponatremia -HD as ordered Nephrolithiasis -Consider urology evaluation for possible UPJ obstruction DM II with CKD -RISS Severe malnutrition Hypoalbuminemia -Advance nutrition as tolerated -IV Albumin prn Anemia in chronic illness -Monitor H&H Acute respiratory failure with hypercapnea -Ventilatory support as ordered -Wean Oxygen as tolerated Sepsis/ Septic shock/ Klebsiella Pneumoniae Acute hepatitis likely due to shock -Continue pressor support -Continue Abx; monitor vanco level -Continue hydrocortisone Toxic metabolic encephalopathy due to sepsis -Continue abx Case discussed with Dr. Mathur
[2021-12-06] MEDS: FENTANYL CITR 100 MCG/2 ML IV PRN (21:41)
[2021-12-07] MEDS: INSULIN -REGULAR HUMAN 50 UNIT/0.5 ML ML SQ SCH ×4 (00:21→17:53)
--- NOTE | 2021-12-07 00:44 | OP ---
Date of Procedure: 12/06/2021 Surgeon: Bubba Mathur MD, Preoperative Diagnosis: Need for hemodialysis. Postoperative Diagnosis: Need for hemodialysis. Procedure Performed: Placement of a left femoral temporary hemodialysis catheter using ultrasound an d microintroducer set. Anesthesia: 1% lidocaine utilized. Estimated Blood Loss: Less than 5 cc. Specimen: None. Findings: Dark nonpulsatile blood return. Complications: None. Implants: Mahurkar temporary double-lumen hemodialysis catheter. Condition: The patient remained in ICU in critical condition. Procedure In Detail: After informed consent was obtained, the patient was prepped and draped in the usual sterile fashion. After adequate anesthesia was achieved with 1% lidocaine in the area of the l eft inguinal region, the area was anesthetized with 0.25% Marcaine on the skin and subcutaneous tissu es. Using ultrasound guidance, I then cannulated the left femoral vein. Using the microintroducer s et with a micro needle, microwire was advanced. When dark red nonpulsatile blood was returned, the n eedle was removed. I then placed the microintroducer 5-Frisian sheath using the Seldinger technique o jeff the microwire and removed the inner portion of it as well as the microwire. I then advanced a st andard wire into the tract and removed the introducer sheath and performed sequential dilatation usin g Seldinger technique over the standard wire. At this point, the double-lumen Mahurkar temporary hem odialysis catheter was placed into the left femoral vein without incident or complication. Dark red nonpulsatile blood was returned. Both ports were flushed and withdrew quite easily with sterile sali ne and were capped at this point. I then secured the skin with the attached 2-0 nylon suture and a s terile dressing was placed over the top. The patient tolerated the procedure without complication an d remained in the ICU in serious/critical condition throughout the procedure. All counts were correc t at the end of the case. TK/MODL Voice ID: [id number] Report ID: [id number]
[2021-12-07] MEDS: NOREPINEPHRINE 8 MG in Dextrose 5%-Water 500 ML IV SCH ×3 (01:51→19:35)
[2021-12-07] MEDS: LORazepam 2 MG/ML VIAL IV PRN ×3 (04:30→23:10)
[2021-12-07 05:28] LABS: Absolute Lymphocytes (CBC) 0.7 K/uL (0.7-4.9); Hematocrit 29.2 % (36.0-45.0); Lymphocytes % 2.4 % (15.3-44.8); MPV 11.2 fL (7.6-11.3); RBC Red Blood Cell Count 3.45 M/uL (3.86-4.86)
[2021-12-07 05:35] LABS: Albumin 2.2 g/dL (3.4-5.0); Bilirubin Total 1.2 mg/dL (0.2-1.0); Potassium 3.3 mmol/L (3.5-5.1); Protein, Total 5.5 g/dL (6.4-8.2)
[2021-12-07 05:45] LABS: White Blood Cell Scan OK (OK)
[2021-12-07 05:46] LABS: Blood Morphology Comment NOT SEEN (NOT SEEN); Platelet Estimate DECR
[2021-12-07 06:24] LABS: Arterial Blood Carboxyhemoglob 1.9 % (0-1.5); Blood Gas Oxyhemoglobin 88.8 % (94-97); Blood O2 Saturation 92.3 % (92-98.5)
--- NOTE | 2021-12-07 07:31 | P.PN ---
Date of Service: 12/05/21 Subjective Patient is still requiring vasopressor support. Hemodialysis access catheter placed last night. Oxygenation requirements have improved. Review of Systems Unable to obtain Physical Examination - Vital Signs Reviewed - Physical Exam General: Obese, Other (Intubated and sedated) HEENT: ET tube in place Neck: Supple, JVD not distended Respiratory: Diminished, Rhonchi/gurgles Cardiovascular: Regular rate/rhythm, Normal S1 S2, Systolic murmur Gastrointestinal: Normal bowel sounds, Soft and benign, Non-distended, No tenderness Musculoskeletal: No clubbing, No swelling, No tenderness Neurological: Sensation intact, Cranial nerves 3-12 intact Assessment & Plan - Problems (Diagnosis) (1) Septic shock Current Visit: Yes Status: Acute (2) Thrombocytopenia Onset Date: 01/05/16 Current Visit: No Status: Acute (3) Chronic kidney disease, stage 3 Current Visit: No Status: Acute (4) Diabetes mellitus type 2 in obese Current Visit: No Status: Acute (5) History of renal stone Current Visit: No Status: Acute (6) Hypertension Current Visit: No Status: Acute (7) Hypothyroidism Current Visit: No Status: Acute (8) Pneumonia Onset Date: 01/05/16 Current Visit: No Status: Acute Qualifiers: Laterality: bilateral Lung location: unspecified part of lung (9) ATN (acute tubular necrosis) Current Visit: Yes Status: Acute (10) Shock liver Current Visit: Yes Status: Acute (11) Fecal impaction Current Visit: Yes Status: Acute (12) Ureterovesical junction (UVJ) obstruction Current Visit: Yes Status: Acute (13) Acute and chronic respiratory failure ([id number]) Current Visit: No Status: Acute Qualifiers: Respiratory failure complication: hypoxia and hypercapnia Qualified Code(s): J96.21 - Acute and chronic respiratory failure with hypoxia; J96.22 - Acute and chronic respiratory failure with hypercapnia - Plan Continue with plan of care as mentioned below: -Mechanical ventilation management per pulmonary -Continue vasopressor support; currently on Levophed -Wean down hydrocortisone -CT head once Levophed weaned down -Monitor renal function -Echocardiogram reviewed -Cultures pending -Appreciate nephrology consult; hemodialysis today -We will continue broad-spectrum antibiotics with vancomycin and meropenem -GI prophylaxis with famotidine -She has a history of nephrolithiasis. Will consult urology when patient more stable for intervention Discharge Plan: Other Plan to discharge in: Greater than 2 days - Advance Directives Does patient have a Living Will: No Does patient have a Durable POA for Healthcare: Yes - Code Status/Comfort Care Code Status Assessed: Yes Code Status: Full Code Critical Care: Yes Time Spent Managing PTS Care (In Minutes): 55
--- NOTE | 2021-12-07 07:36 | P.PN ---
Date of Service: 12/06/21 Subjective Overnight patient became more hypotensive. Rene-Synephrine added. However, today we were able to get it off. Patient also with a colovaginal fistula. This will need to be further investigated once medically stable. Patient also with nephrolithiasis and will need a urology consultation once patient is more stable. Urine output has improved. Patient made about 350 cc during today's shift. Spoke with family to update them. Mentation is still not completely appropriate and not following commands. CT scan whenever she is more stable. Patient was hemodialyzed today. Edvin catheter was placed. Cultures pending. Spoke to pulmonary and concern for fungemia. Will do fungal blood cultures Review of Systems Unable to obtain Physical Examination - Vital Signs Reviewed - Physical Exam General: Obese, Other (Intubated and sedated) HEENT: ET tube in place Neck: Supple, JVD not distended Respiratory: Diminished, Rhonchi/gurgles Cardiovascular: Regular rate/rhythm, Normal S1 S2, Systolic murmur Gastrointestinal: Normal bowel sounds, Soft and benign, Non-distended, No tenderness Musculoskeletal: No clubbing, No swelling, No tenderness Neurological: Sensation intact, Cranial nerves 3-12 intact Assessment & Plan - Problems (Diagnosis) (1) Septic shock Current Visit: Yes Status: Acute (2) Thrombocytopenia Onset Date: 01/05/16 Current Visit: No Status: Acute (3) Chronic kidney disease, stage 3 Current Visit: No Status: Acute (4) Diabetes mellitus type 2 in obese Current Visit: No Status: Acute (5) History of renal stone Current Visit: No Status: Acute (6) Hypertension Current Visit: No Status: Acute (7) Hypothyroidism Current Visit: No Status: Acute (8) Pneumonia Onset Date: 01/05/16 Current Visit: No Status: Acute Qualifiers: Laterality: bilateral Lung location: unspecified part of lung (9) ATN (acute tubular necrosis) Current Visit: Yes Status: Acute (10) Shock liver Current Visit: Yes Status: Acute (11) Fecal impaction Current Visit: Yes Status: Acute (12) Ureterovesical junction (UVJ) obstruction Current Visit: Yes Status: Acute (13) Acute and chronic respiratory failure ([id number]) Current Visit: No Status: Acute Qualifiers: Respiratory failure complication: hypoxia and hypercapnia Qualified Code(s): J96.21 - Acute and chronic respiratory failure with hypoxia; J96.22 - Acute and chronic respiratory failure with hypercapnia - Plan Continue with plan of care as mentioned below: -Mechanical ventilation management per pulmonary; oxygen requirements have decreased but still not following commands -Continue vasopressor support; currently on Levophed; added Rene-Synephrine overnight but was able to DC today -Wean down hydrocortisone -CT head once Levophed weaned down -Monitor renal function; urine output increased -Echocardiogram reviewed -Cultures pending -Appreciate nephrology consult; hemodialysis today -We will continue broad-spectrum antibiotics with vancomycin and meropenem -GI prophylaxis with famotidine -She has a history of nephrolithiasis. Will consult urology when patient more stable for intervention Discharge Plan: Other Plan to discharge in: Greater than 2 days - Advance Directives Does patient have a Living Will: No Does patient have a Durable POA for Healthcare: Yes - Code Status/Comfort Care Code Status Assessed: Yes Code Status: Full Code Critical Care: Yes Time Spent Managing PTS Care (In Minutes): 55
--- NOTE | 2021-12-07 07:39 | P.PN ---
Date of Service: 12/07/21 Subjective Requiring vasopressor support. Still with minimal urine output and will continue with dialysis Review of Systems Unable to obtain Physical Examination - Vital Signs Reviewed - Physical Exam General: Obese, Other (Intubated and sedated) HEENT: ET tube in place Neck: Supple, JVD not distended Respiratory: Diminished, Rhonchi/gurgles Cardiovascular: Regular rate/rhythm, Normal S1 S2, Systolic murmur Gastrointestinal: Normal bowel sounds, Soft and benign, Non-distended, No tenderness Musculoskeletal: No clubbing, No swelling, No tenderness Neurological: Sensation intact, Cranial nerves 3-12 intact Assessment & Plan - Problems (Diagnosis) (1) Septic shock Current Visit: Yes Status: Acute (2) Thrombocytopenia Onset Date: 01/05/16 Current Visit: No Status: Acute (3) Chronic kidney disease, stage 3 Current Visit: No Status: Acute (4) Diabetes mellitus type 2 in obese Current Visit: No Status: Acute (5) History of renal stone Current Visit: No Status: Acute (6) Hypertension Current Visit: No Status: Acute (7) Hypothyroidism Current Visit: No Status: Acute (8) Pneumonia Onset Date: 01/05/16 Current Visit: No Status: Acute Qualifiers: Laterality: bilateral Lung location: unspecified part of lung (9) ATN (acute tubular necrosis) Current Visit: Yes Status: Acute (10) Shock liver Current Visit: Yes Status: Acute (11) Fecal impaction Current Visit: Yes Status: Acute (12) Ureterovesical junction (UVJ) obstruction Current Visit: Yes Status: Acute (13) Acute and chronic respiratory failure ([id number]) Current Visit: No Status: Acute Qualifiers: Respiratory failure complication: hypoxia and hypercapnia Qualified Code(s): J96.21 - Acute and chronic respiratory failure with hypoxia; J96.22 - Acute and chronic respiratory failure with hypercapnia - Plan Continue with plan of care as mentioned below: -Mechanical ventilation management per pulmonary; oxygen requirements have decreased but still not following commands -Continue vasopressor support; currently on Levophed; added Rene-Synephrine overnight but was able to DC today -Wean down hydrocortisone -CT head once Levophed weaned down -Monitor renal function; urine output increased -Echocardiogram reviewed -Cultures pending -Appreciate nephrology consult; hemodialysis today -We will continue broad-spectrum antibiotics with vancomycin and meropenem -GI prophylaxis with famotidine -She has a history of nephrolithiasis. Will consult urology when patient more stable for intervention Discharge Plan: Other Plan to discharge in: Greater than 2 days - Advance Directives Does patient have a Living Will: No Does patient have a Durable POA for Healthcare: Yes - Code Status/Comfort Care Code Status Assessed: Yes Code Status: Full Code Critical Care: Yes Time Spent Managing PTS Care (In Minutes): 55
--- NOTE | 2021-12-07 07:52 | RAD REPORT ---
EXAM DESCRIPTION: Jason Single View12/07/2021 6:33 am CLINICAL HISTORY: Ventilated patient COMPARISON: December 06, 2021 FINDINGS: Endotracheal tube with its tip 1.4 centimeters above the [place]. Orogastric tube enters t he stomach. Tip is not included in the field of view Right central venous line ascends the right neck. Tip is not included the field of view. Almost complete opacification of right hemithorax probably combination of atelectasis pneumonia. Moderate diffuse bilateral left lung opacity is unchanged.
[2021-12-07] MEDS: FAMOTIDINE 20 MG/2 ML VIAL IV SCH (08:36)
--- NOTE | 2021-12-07 09:51 | P.PN ---
Subjective Date of Service: 12/07/21 Chief Complaint: Respiratory failure septic shock Patient's condition is improving count declining vasopressors have also declined dynamically a little bit more stable oxygenation satisfactory unresponsive Review of Systems is unable to be obtained Physical Examination - Vital Signs Temperature: 97.7 F Blood Pressure: 112/65 Pulse: 93 Respirations: 26 Pulse Ox (%): 99 - Physical Exam General: Unresponsive Respiratory: Clear to auscultation bilaterally, Diminished Cardiovascular: Edema Gastrointestinal: Normal bowel sounds, Soft and benign - Studies Medications List Reviewed: Yes Assessment And Plan - Current Problems (Diagnosis) (1) Septic shock Current Visit: Yes Status: Acute Plan: Condition improving hemodynamically more stable no fed dose has been decreased count is declining MRSA isolated in the sputum gram-negative Klebsiella in the blood patient is on meropenem vancomycin and micafungin at risk for a fungal infection thrombocytopenia on minimal oxygen 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
[2021-12-07] MEDS ORDERED: POTASSIUM 25 MEQ EFFERV TAB FT ONE (09:58)
[2021-12-07] MEDS: ALBUMIN HUMAN 25% 50 ML IV SCH (11:00)
[2021-12-07] MEDS: FENTANYL CITR 100 MCG/2 ML IV PRN (12:09)
[2021-12-07] MEDS: MICAFUNGIN SODIUM 100 MG in NA CHLORIDE 0.9% 100 ML IV SCH (13:56)
[2021-12-07] MEDS ORDERED: VANCOMYCIN 1 GM in NA CHLORIDE 0.9% 250 ML IVPB SCH (14:00)
[2021-12-07] MEDS: ALBUTEROL 2.5 MG/3 ML NEB SOL NEB SCH ×2 (14:23→19:50)
[2021-12-07] MEDS: Meropenem 500 MG in NA CHLORIDE 0.9% 100 ML IV SCH (20:25)
--- NOTE | 2021-12-07 22:28 | P.PN ---
Date of Service: 12/07/21 Vital Signs Temp Pulse Resp BP Pulse Ox 98 F 108 H 30 H 100/58 L 94 12/07/21 20:00 12/07/21 20:45 12/07/21 20:45 12/07/21 20:45 12/07/21 20:45 Medications Albuterol Sulfate (Albuterol 2.5 Mg/3 Ml Neb Vidya) 2.5 mg NEB [id number] MANDO Last Admin: 12/07/21 19:50 Dose: 2.5 mg Documented by: Dextrose (D50w 25 Gm/50 Ml Syringe) 12.5 gm IV PRN PRN PRN Reason: HYPOGLYCEMIA Famotidine (Famotidine 20 Mg/2 Ml Vial) 20 mg IV Q24H MANDO; Protocol Last Admin: 12/07/21 08:36 Dose: 20 mg Documented by: Fentanyl Citrate (Fentanyl Citr 100 Mcg/2 Ml) 25 mcg IV Q4HP PRN PRN Reason: Pain scale 8-10 (Severe) Last Admin: 12/07/21 12:09 Dose: 25 mcg Documented by: Glucagon (Glucagon 1 Mg/Vial) 1 mg IM 1X PRN PRN Reason: HYPOGLYCEMIA Haloperidol Lactate (Haloperidol Lact 5 Mg/Ml Inj) 2 mg IV Q4HP PRN PRN Reason: AGITATION Heparin Sodium (Porcine) (Heparin 1,000 Unit/Ml Vial) 4,000 unit IV EVERY HD PRN PRN Reason: DIALYSIS CATHETER CARE Last Admin: 12/07/21 12:45 Dose: 4,000 unit Documented by: Phenylephrine HCl 50 mg/ (Dextrose) 255 mls @ 6.12 mls/hr IV TITR MANDO; Protocol Last Titration: 12/06/21 05:00 Dose: 0 mcg/min, 0 mls/hr Documented by: Norepinephrine Bitartrate 8 mg (/ Dextrose) 508 mls @ 3.81 mls/hr IV TITR MANDO; Protocol Last Titration: 12/07/21 21:35 Dose: 9 mcg/min, 34.3 mls/hr Documented by: Sodium Chloride (Sodium Chloride) 250 mls @ 0 mls/hr IV .Q0M MANDO Albumin Human (Albumin 25%) 50 mls @ 100 mls/hr IV EVERY HD MANDO Last Admin: 12/07/21 11:00 Dose: 50 mls Documented by: Meropenem 500 mg/ Sodium (Chloride) 100 mls @ 200 mls/hr IV Q24H [facility] Last Admin: 12/07/21 20:25 Dose: 100 mls Documented by: Micafungin Sodium 100 mg/ (Sodium Chloride) 100 mls @ 100 mls/hr IV Q24H [facility] Last Admin: 12/07/21 13:56 Dose: 100 mls Documented by: Vancomycin HCl 1 gm/ Sodium (Chloride) 250 mls @ 250 mls/hr IVPB AFTER EACH DIALYSIS [facility] Last Admin: 12/06/21 17:21 Dose: 250 mls Documented by: Insulin Human Regular (Insulin -Regular Human 50 Unit/0.5 Ml Ml) 0 unit SQ Q6HR [facility]; Protocol Last Admin: 12/07/21 17:53 Dose: 3 unit Documented by: Lorazepam (Lorazepam 2 Mg/Ml Vial) 2 mg IV Q2HP PRN PRN Reason: Sedation-Propofol not effect Last Admin: 12/07/21 13:12 Dose: 2 mg Documented by: Mannitol (Mannitol 25% 12.5 Gm/50 Ml Vial) 12.5 gm IV EVERY HD PRN PRN Reason: Titrate to SBP (MUST DEFINE) Microbiology Results 12/02/21 09:40 Blood - Blood Aerobic Blood Culture - Final Gram Neg Alan Klebsiella Pneumoniae 12/02/21 09:40 Blood - Blood Blood Culture Gram Stain - Final 12/02/21 09:40 Blood - Blood Anaerobic Blood Culture - Final Gram Neg Alan Klebsiella Pneumoniae 12/02/21 09:40 Blood - Blood Gram Stain - Final 12/02/21 10:35 Blood - Blood Aerobic Blood Culture - Final Gram Neg Alan Klebsiella Pneumoniae 12/02/21 10:35 Blood - Blood Blood Culture Gram Stain - Final 12/02/21 10:35 Blood - Blood Anaerobic Blood Culture - Final Gram Neg Alan Klebsiella Pneumoniae 12/02/21 10:35 Blood - Blood Gram Stain - Final Assessment/ Plan: Nephrology Limited IH/ ROS due to AMS Seen and examined on HD No acute events overnight Vitals, medications, blood work and imaging reviewed in the chart. General: Unresponsive HEENT: Atraumatic Neck: Supple Respiratory: Clear to auscultation bilaterally Cardiovascular: No rubs, Edema Gastrointestinal: Soft and benign, Non-distended Musculoskeletal: No clubbing, No contractures Integumentary: No rashes, No cyanosis Neurological: Abnormal tone Greater than 30min patient care Laboratory Data (last 24 hrs) 12/02/21 10:05: PT 12.6 H, INR 1.14, APTT 24.7 12/02/21 10:05: WBC 17.10 H, Hgb 13.4, Hct 41.8, Plt Count 52 L Imagings Data: EXAM DESCRIPTION: CT - Chest Abd Pelvis Wo Con - 12/02/2021 12:49 pm CLINICAL HISTORY: AMS/Sepsis;Congestion COMPARISON: Thorax Wo Con dated 03/22/2021; Chest For Pe Angio dated 09/22/2020; Abdomen Pelvis W Contrast dated 04/25/2021 TECHNIQUE: During dynamic enhancement using 100 milliliters nonionic IV contrast, axial 5 millimeter thick images of the chest, abdomen and pelvis were obtained. Biphasic technique was utilized through the abdomen. Oral contrast was administered. All CT scans are performed using dose optimization technique as appropriate and may include automated exposure control or mA/KV adjustment according to patient size. FINDINGS: Thyromegaly again noted. Extensive baseline interstitial thickening is present in both lung sommer, more pronounced on the right. There is right hemithorax volume loss relative to the left also seen as stable. Scattered areas of nodularity in the lung parenchyma show no change in size. No endobronchial lesions seen. Increased wound glass opacities are present in the left lung field. Respiratory motion degradation decreases overall sensitivity of assessment. Increased interstitial opacification noted in the lower left lung field and in the posterior lower right lung field compared to the prior study. Cardiomegaly without pericardial effusion seen. Right shift of the heart and mediastinal structures has not changed. No pneumothorax or pleural effusion. No chest wall mass or abnormal axillary lymphadenopathy seen. Mediastinal and hilar lymph node pattern has not changed. No bulky lymphadenopathy seen. Pulmonary arteries are prominent. The liver, spleen and pancreas show no significant findings. Gallbladder is well filled and contains multiple gallstones. No biliary tree dilatation. Right kidney is larger than the left. Function cannot be assessed on a noncontrast study. A 15-18 millimeter cluster of multiple calcifications seen in the calices in parenchyma of the lower right kidney. There is moderate dilatation of the pelvis and calices present. Multiple 3-5 mm mid right renal calyx calculi are present. Approximately 2 centimeter calcification is seen layering in the dependent portion of the dilated pelvis. There is a 15 millimeter oval calcification at the right UPJ. More distally the right ureter is not abnormally dilated. A few nonobstructing calyx and parenchymal calculi noted on the left. Punctate 1-2 mm size calcifications seen in the non dilated left renal pelvis. No adrenal abnormalities. Urinary bladder is fully contracted around a Perez catheter. Uterus has a lobulated contour that may indicate presence of 1 or more fibroids. Atrophic ovaries are identified. No acute stomach or small bowel finding. Sigmoid anastomotic site shows no acute finding. Large amount of stool is present dilating the rectum to 9 cm. Sigmoid stool volume is moderate. No colon mass lesions seen. No free air, free fluid or inflammatory stranding. No hernia, mass or bulky lymphadenopathy. Disc and bone degenerative changes are present. No pathologic bone process seen. IVC filter is in place. IMPRESSION: Patient has extensive baseline interstitial fibrotic change. Additional areas of interstitial opacification and ground-glass opacification are present compared to 03/22/2021 imaging. Progressive interstitial fibrotic disease possible. Superimposed interstitial and alveolar infiltrate should be considered. There is no large new mass or consolidation. Multi stone cholelithiasis as previously seen. No biliary tree dilatation. Approximately 15 millimeter right-side UPJ calculus with moderate dilatation of the pelvis and calices. The UPJ calculus may be partially or intermittently obstructive. Pelvis and calices are only slightly larger than seen on 04/25/2021 imaging. Patient has multiple additional nonobstructing pelvis, calyx and parenchymal calculi on the right. No acute GI or process seen. There is a large stool volume dilating the rectum to 9 cm. Conclusions/Impression: LUISANA likely Oliguric ATN in the setting septic shock complicated by Etolodac. CKD II with proteinuria -No NSAIDs -Maintain BP support -HD initiated [id number]; HD today -Hepatitis pending Hyponatremia -HD as ordered Hypokalemia -Replete potassium Nephrolithiasis -Consider urology evaluation for possible right UPJ obstruction DM II with CKD -RISS Severe malnutrition Hypoalbuminemia -Advance nutrition as tolerated -IV Albumin prn Anemia in chronic illness -Monitor H&H Acute respiratory failure with hypercapnea -Ventilatory support as ordered -Wean Oxygen as tolerated Sepsis/ Septic shock/ Klebsiella Pneumoniae Acute hepatitis likely due to shock -Continue pressor support -Continue Abx; monitor vanco level Toxic metabolic encephalopathy due to sepsis -Continue abx
[2021-12-08] MEDS: INSULIN -REGULAR HUMAN 50 UNIT/0.5 ML ML SQ SCH ×4 (00:18→17:21)
[2021-12-08] MEDS: FENTANYL CITR 100 MCG/2 ML IV PRN ×2 (00:18→09:40)
[2021-12-08] MEDS: HALOPERIDOL LACT 5 MG/ML INJ IV PRN ×2 (00:59→19:18)
[2021-12-08] MEDS: ALBUTEROL 2.5 MG/3 ML NEB SOL NEB SCH ×4 (02:00→20:15)
[2021-12-08 05:43] LABS: Absolute Lymphocytes (CBC) 0.4 K/uL (0.7-4.9); Hematocrit 23.7 % (36.0-45.0); MPV 10.2 fL (7.6-11.3); RBC Red Blood Cell Count 2.81 M/uL (3.86-4.86)
[2021-12-08 06:00] LABS: Albumin 2.2 g/dL (3.4-5.0); Bilirubin Total 1.5 mg/dL (0.2-1.0); Protein, Total 5.1 g/dL (6.4-8.2)
[2021-12-08 06:01] LABS: Potassium 3.1 mmol/L (3.5-5.1)
[2021-12-08] MEDS ORDERED: POTASSIUM 25 MEQ EFFERV TAB FT ONE (07:00)
[2021-12-08] MEDS: FAMOTIDINE 20 MG/2 ML VIAL IV SCH (08:17)
--- NOTE | 2021-12-08 08:33 | RAD REPORT ---
EXAM DESCRIPTION: RAD - Chest Single View - 12/08/2021 8:21 am CLINICAL HISTORY: vented COMPARISON: Chest Single View dated 12/07/2021; Chest Single View dated 12/06/2021; Abdomen 1 View ([facility]) dated 12/05/2021; Chest Single View dated 12/05/2021 FINDINGS: Lines: Endotracheal tube at the aortic arch in satisfactory position. Enteric tube below t he diaphragm. Lungs: Severe widespread bilateral airspace disease which is worse on the right and consolidative. Th e right lung aeration is slightly improved. The left lung is similar. Pleural: No significant pleural effusions or pneumothorax. Cardiac: The heart size is within normal limits. Bones: No acute fractures. Other: IMPRESSION: Severe bilateral airspace disease which is likely edema and/or multifocal pneumonia with minimal improved aeration of the right lung. Support apparatus stable.
[2021-12-08 08:36] LABS: Platelet Estimate DECR
[2021-12-08 08:37] LABS: Blood Morphology Comment NOT SEEN (NOT SEEN); Dohle Bodies PRESENT; Toxic Granulation PRESENT
[2021-12-08] MEDS: LORazepam 2 MG/ML VIAL IV PRN ×2 (09:16→11:44)
[2021-12-08] MEDS: NOREPINEPHRINE 8 MG in Dextrose 5%-Water 500 ML IV SCH ×2 (09:18→19:17)
--- NOTE | 2021-12-08 11:13 | P.PN ---
Subjective Date of Service: 12/08/21 Chief Complaint: Respiratory failure septic shock Patient is hemodynamically stable on 6 mics of Levophed tachypneic altered mental status 30% FiO2 Review of Systems is unable to be obtained Physical Examination - Vital Signs Temperature: 97.5 F Blood Pressure: 95/59 Pulse: 103 Respirations: 31 Pulse Ox (%): 98 - Physical Exam General: Unresponsive Respiratory: Diminished Cardiovascular: Edema - Studies Medications List Reviewed: Yes Assessment And Plan - Current Problems (Diagnosis) (1) Septic shock Current Visit: Yes Status: Acute Plan: Condition improving Levophed 6 mics now white count has declined significantly to 21,000 thrombocytopenia stable significant consolidation on the right side MRSA isolated patient is on maximal antibiotic therapy discussed with daughter prognosis poor they agree to make her DNR change to pressure control ventilation if tolerated
[2021-12-08] MEDS: MICAFUNGIN SODIUM 100 MG in NA CHLORIDE 0.9% 100 ML IV SCH (13:53)
[2021-12-08] MEDS ORDERED: NA CHLORIDE 0.9% 100 ML ONE (13:53)
[2021-12-08] MEDS: Meropenem 500 MG in NA CHLORIDE 0.9% 100 ML IV SCH (20:03)
[2021-12-08] MEDS: VANCOMYCIN 1 GM in NA CHLORIDE 0.9% 250 ML IVPB SCH (20:04)
--- NOTE | 2021-12-08 23:00 | PN ---
Date of Progress Note: 12/08/2021 Subjective: The patient is sedated, intubated, on pressors with question of gastrovaginal fistula wi th significant sepsis. She has a Edvin catheter on the left groin area, which is being used for di alysis. The right neck CVC is not working and that has not been removed as well because of the patie nt's overall guarded condition and poor lab work including low platelet level of 33 has prevented rem oval of that catheter to avoid risk of bleeding. The patient's WBC count has been significantly elev ated up to 52,000 on December 06 and is now slowly declining down to 21,000. The patient is still dep endent on pressors requiring Levophed, which had to be increased to 15 mcg, but then also had to incr ease it further to almost 20 and then close to maximum dose to allow the patient to maintain blood pr essures in the 100 systolic range to allow dialysis with minimal ultrafiltration about 500 cc. The p atient is seen and examined on dialysis as well. Objective: Vital Signs: Vitals currently are guarded with blood pressure in the 100-110 range. The patient's blood pressure was dropping significantly, but after increasing the Levophed, it stabilize d in about 100-120 range systolic. Pulse was about 100-110, regular. Afebrile. Abdomen: Soft, but the patient is sleepy and obtunded. Extremities: The patient has significant lower extremity edema +2-3 bilaterally. Medications: Reviewed. The patient has been getting some albumin with HD. The patient has been get ting albuterol nebulizer treatments q.6 hours, getting Pepcid, on fentanyl p.r.n., on Haldol p.r.n. a gitation, on insulin with monitoring of sugars, on lorazepam p.r.n. sedation. The patient is on anti biotics with vancomycin with MRSA in the sputum. Laboratory Data: Lab data further reviewed with sodium 132, potassium 3.1, chloride 101, bicarb is 2 5, BUN is 79, creatinine 2.89, albumin level of 2.2. Assessment And Plan: The patient with significant comorbidities, sepsis at this point with question of abdominal vaginal fistula with sepsis with methicillin-resistant Staphylococcus aureus in the sput um, on vancomycin, getting pressors with Levophed. Levophed had to be adjusted to allow the patient to have reasonable blood pressures for dialysis. Also the patient was having difficulty with her lef t groin femoral catheter. This was not a tunneled catheter. The area was cleaned, sterile technique used. Sutures removed, catheter manipulated to allow the kink to resolve and for blood flow to impr ove. Blood flows were significantly improved on dialysis from before the catheter correction where t he patient could hardly get 200 blood flows and the machine was constantly alarming and not allowing dialysis to occur. After the catheter was slightly adjusted, the blood flows improved easily to 300 without any difficulty. The catheter was then sutured back in place. The area was cleaned and dress ed. Dialysis nurse and the patient's nurse, Shena were present during the procedure. In summary, dialysis catheter adjusted on the left groin. Levophed adjusted to allow the patient to get dialysis. The patient seems to be sedated and continues to be in guarded condition with serious risk for and a bad outcome over here as the patient is on already significant pressors and also on vent support. Dialysis is somewhat difficult. She has also multiorgan failure with acute kidney injury. Also see dialysis notes. The patient was seen and evaluated on dialysis and dialysis is pl anned for about 2-1/2 hours with goal to only remove 500 cc of ultrafiltration. LUKASZ/MODL Voice ID: [id number] Report ID: [id number]
[2021-12-09] MEDS: INSULIN -REGULAR HUMAN 50 UNIT/0.5 ML ML SQ SCH ×5 (00:32→23:55)
[2021-12-09] MEDS: ALBUTEROL 2.5 MG/3 ML NEB SOL NEB SCH ×4 (01:45→20:00)
[2021-12-09 05:44] LABS: Hematocrit 23.5 % (36.0-45.0); Lymphocytes % 4.5 % (15.3-44.8); MPV 11.9 fL (7.6-11.3); RBC Red Blood Cell Count 2.76 M/uL (3.86-4.86)
[2021-12-09] MEDS: LORazepam 2 MG/ML VIAL IV PRN (06:19)
[2021-12-09 07:08] LABS: Albumin 2.4 g/dL (3.4-5.0); Bilirubin Total 1.3 mg/dL (0.2-1.0); Potassium 3.2 mmol/L (3.5-5.1); Protein, Total 5.6 g/dL (6.4-8.2)
--- NOTE | 2021-12-09 07:41 | RAD REPORT ---
EXAM DESCRIPTION: RAD - Chest Single View - 12/09/2021 5:08 am CLINICAL HISTORY: vented COMPARISON: Chest Single View dated 12/08/2021; Chest Single View dated 12/07/2021; Chest Single View dated 12/06/2021; Abdomen 1 View (KUB) dated 12/05/2021 FINDINGS: Lines: Endotracheal tube in similar position. NG tube below the diaphragm. Lungs: Severe widespread airspace disease, right greater than left. This is unchanged. Pleural: No significant pleural effusions or pneumothorax. Cardiac: The heart size is within normal limits. Bones: No acute fractures. Other: IMPRESSION: Unchanged widespread bilateral airspace disease. Support apparatus stable.
[2021-12-09] MEDS ORDERED: POTASSIUM 25 MEQ EFFERV TAB FT ONE (07:56)
[2021-12-09] MEDS: NOREPINEPHRINE 8 MG in Dextrose 5%-Water 500 ML IV SCH (08:29)
[2021-12-09] MEDS: FAMOTIDINE 20 MG/2 ML VIAL IV SCH (08:29)
[2021-12-09] MEDS ORDERED: NA CHLORIDE 0.9% 500 ML IV ONE (11:01)
[2021-12-09] MEDS ORDERED: FENTANYL CITR 100 MCG/2 ML IV PRN (11:51)
[2021-12-09] MEDS ORDERED: HALOPERIDOL LACT 5 MG/ML INJ IV PRN (11:51)
[2021-12-09] MEDS ORDERED: LORazepam 2 MG/ML VIAL IV PRN (11:51)
--- NOTE | 2021-12-09 11:55 | P.PN ---
Subjective Date of Service: 12/07/21 Chief Complaint: Multiorgan failure, colovaginal fistula Subjective: No new changes (Patient non-verbal, recieved dialysis via Femoral HD catheter) Physical Examination - Vital Signs Temperature: 97.7 F Blood Pressure: 125/69 Pulse: 98 Respirations: 30 Pulse Ox (%): 91 - Physical Exam General: Unresponsive Gastrointestinal: Soft and benign - Studies Medications List Reviewed: Yes Assessment And Plan - Plan 66 year old woman with multiorgan dysfunction - continue critical care - continue dialysis via femoral HD catheter - will plan for NPO when PICC and TPN started - will need CT AP with PO contrast to assess colovaginal fistula
--- NOTE | 2021-12-09 11:56 | P.PN ---
Subjective Date of Service: 12/08/21 Chief Complaint: Multiorgan failure, colovaginal fistula Subjective: No new changes Patient non-verbal, recieved dialysis via Femoral HD catheter Physical Examination - Vital Signs Temperature: 97.7 F Blood Pressure: 125/69 Pulse: 98 Respirations: 30 Pulse Ox (%): 91 - Physical Exam General: Unresponsive Respiratory: Diminished Gastrointestinal: Soft and benign - Studies Medications List Reviewed: Yes Assessment And Plan - Plan 66 year old woman with multiorgan dysfunction - continue critical care - continue dialysis via femoral HD catheter - will plan for NPO when PICC and TPN started - will need CT AP with PO contrast to assess colovaginal fistula
--- NOTE | 2021-12-09 11:57 | P.PN ---
Subjective Date of Service: 12/09/21 Chief Complaint: Multiorgan failure, colovaginal fistula Subjective: No new changes Patient non-verbal, recieved dialysis via Femoral HD catheter Physical Examination - Vital Signs Temperature: 97.7 F Blood Pressure: 125/69 Pulse: 98 Respirations: 30 Pulse Ox (%): 91 - Physical Exam General: Unresponsive Respiratory: Diminished Gastrointestinal: Soft and benign - Studies Medications List Reviewed: Yes Assessment And Plan - Plan 66 year old woman with multiorgan dysfunction - continue critical care - continue dialysis via femoral HD catheter - will plan for NPO when PICC and TPN started - will need CT AP with PO contrast to assess colovaginal fistula
[2021-12-09] MEDS ORDERED: EPOETIN ALFA-EPBX 4,000 UNIT/ML VIAL SQ ONE (12:08)
--- NOTE | 2021-12-09 12:46 | CON ---
Date of Consultation: 12/06/2021 Brief History Of Present Illness: The patient is a 66-year-old female with a history of pu lmonary embolism, on chronic anticoagulation with Xarelto, morbid obesity, who has been bed-bound for over a year due to hip fracture. She has been poorly compliant with her physical therapy. She had a history also of hypertension, hyperlipidemia, diabetes. Brought in by EMS on 12/02/2021 for altere d mental status. She had been having several days of altered mental status with decline 2-3 days anna marie or to her admission. She was lethargic during their initial examinations and she is intubated during my examination. As such, information is obtained primarily from the chart as there was no ability t o converse with the patient at this time. I am seeing the patient for 2 issues. 1.Need for hemodialysis access as attempts at this were challenging and as such I am consulted to pl royce a temporary hemodialysis device for the patient. 2.It has been noted that the patient also has a history of bowel surgery and by report may have had a colovaginal fistula in the past and apparently she is having stool-like material from her vagina at once again. Past Medical History: Significant for hypertension, diabetes, hypothyroidism, DVT, pulmonary embolis m, nephrolithiasis, anxiety, COPD, asthma, arthritis, gout. Past Surgical History: Includes a tubal ligation, kidney stone extraction, thyroid lobectomy and a c olovaginal fistula repair in the past. Social History: There is no history of alcohol, recreational drug use, or smoking other than above. Family History: She was adopted and had no family history reported in the chart. Allergies: NO KNOWN DRUG ALLERGIES. Home Medications: Include alprazolam, Celexa, zyloprim, folic acid, Xarelto, Lodine, Toprol, Synthro id, Diamox, [place], Vantin, Dulera, Aldactone, prednisone. Review of Systems: Ten-point review of systems unable to obtain. Physical Examination: Vital Signs: At the time of my examination; her BMI was 47. Her vital signs were a blood pressure 1 21/74, pulse is 111, respiratory rate 30 on the ventilator, temperature 97.0, pulse ox was 91%. She was ventilated during my examination and was requiring pressor support. General: She is lethargic, intubated, and essentially nonresponsive to all, but noxious stimuli. HEENT: She is otherwise normocephalic. Her sclerae were anicteric. Her mucous membranes were somew hat dry. Her oropharynx had an endotracheal tube and NG tube in place in her nares. Neck: Supple without JVD. Chest: Decreased breath sounds bilaterally. Cardiovascular: Tachycardia during my exam. Abdomen: Soft, obese, and nontender. Groin pulses were nonpalpable as her pressure was quite low du ring my examination in the 90s systolic blood pressure cuff. Extremities: Had mild edema in all 4 extremities. Laboratory Data: Revealed a white blood cell count of 52.30. Her hemoglobin was 9.4, hematocrit of 29.9. Her platelet count was 40. Neutrophils are 96%. Her sodium 128, potassium 3.9, chloride 93, carbon dioxide 23, BUN 151, creatinine 4.7, her glucose was 200. Her calcium was 7.9. Total bilirub in 1.2, AST was 363, ALT is 375, alkaline phosphatase 230. UA showed 3+ blood, 1+ bilirubin, 3+ leuk ocyte esterase. Her urine was loaded with white blood cells. She had imaging performed, which inclu ded a CT scan on 12/02/2021 of chest, abdomen, and pelvis which was officially read as the patient thibodeaux s extensive bilateral interstitial fibrotic change, additional areas of interstitial opacification, g round-glass opacifications are present compared to 03/22/2021 imaging, progressive interstitial fibro tic disease, possible superimposed interstitial alveolar infiltrate should be considered. There is n o large new mass or consolidation. Multi stone cholelithiasis described, no biliary tree dilatation, approximately 15 mm right-sided UPJ calculus with moderate dilatation of the pelvis and calices. Th e UPJ calculus may be partially or intermittently obstructed. The pelvis and calices are only slight ly larger than seen on 04/25/2021 imaging. The patient has multiple additional nonobstructing pelvis , caliceal and parenchymal calculi on the right. No acute GI or process seen. There is large sto ol dilating the rectum to 9 cm. Assessment And Plan: This is a 66-year-old female, who has multiple medical problems as described ab umberto, who presents with need for urgent acute hemodialysis as well as a likely described colovaginal r ecurrent fistula. 1.I have explained the risks, benefits, and alternatives of placement of a temporary hemodialysis ca theter in the femoral vein including, but not limited to bleeding, infection, damage to surrounding t issues, need for further operation and procedures. The patient's family has agreed to proceed. 2.We will continue the workup for the possible colovesical fistula as the patient progresses; jenny gurrola, currently, she appears too ill for any acute intervention and as such, we will transition her off p.o. diet and start TPN when able to achieve a PICC line and TPN nutrition and this has been instated , then we will likely make her n.p.o. and plan for a p.o. contrast CT scan to see if we can delineate the etiology of her possible colovaginal fistula. Additionally, if medical condition is permitting and if she improves, we can consider doing colonoscopy and additional workup to see if we can better define the etiology of this colovaginal fistula. In the interim, we will hold off on medication jason tments such as octreotide until her hemodynamic status improves significantly and we will see how she responds to n.p.o. and TPN first prior to initiating any other measures for the possible colovaginal fistula. 3.Continue medical management for this critically ill patient per Nephrology, Pulmonology, Cardiolog y, and various consultants as well as the primary team. I will follow along with you. Thank you for this interesting consult. EDIN/BERTIN Voice ID: [id number] Report ID: [id number]
--- NOTE | 2021-12-09 13:37 | PN ---
Subjective: The patient is seen in intensive care unit. The patient is not alert. She is not arous able. She is intubated on 30% oxygen with PEEP of 5. Does seem to have improved. Her blood pressur e is somewhat in the low 100 range. She is still requiring 4 mcg of Levophed. The patient's electro lytes seem reasonably stable. Potassium was low, has been replaced. The patient is coming off her f eedings now and is going to be started on standard TPN with monitoring. Dr. Mathur from the [facility] list discussed this and I agree with this plan as well. The patient overall continues to be in guard ed condition with sepsis with abdominal vaginal fistula with severe thrombocytopenia and dialysis dep endence. Vitals currently with low blood pressure, still requiring pressor support on Levophed. We will need to adjust Levophed if the patient needs dialysis and continues to have this problem with bl ood pressure. At this point, her volume status seems reasonable. Her vent status is not worsening. We have not been able to remove much fluid because of her low blood pressures despite using albumin and max dose of Levophed. At this point, Levophed has been decreased, but I do not see any pressing need for acute dialysis today. The patient was dialyzed yesterday after her catheter was adjusted in the left groin. The patient tolerated that well, but not much fluid was removed even 500 cc was not accomplished. Laboratory Data: Reviewed. Labs show WBC counts have improved and stabilized somewhat compared to y esterday, seems stable. WBC 21.6, hemoglobin 7.7, hematocrit 23.5, platelet counts are at 62, slight ly improved compared to yesterday and day before. She is significantly improved compared to yesterda y when they were 33. Chemistry shows sodium 137, potassium 3.2, chloride 102, bicarb is 25, BUN of 5 4, creatinine 2.3. Assessment/plan: Severe malnutrition, sepsis with guarded condition, hemodynamic instability requiri ng pressors, currently on Levophed that has improved on 4 mcg currently. Blood pressures do fluctuat e. The patient is getting a bolus of 250 cc of fluids currently. We will not be able to remove much fluids from her. The patient's electrolytes seem stable. Her bicarb is 25. Potassium was low and has been replaced. Sodium is reasonable at 137. I do not see a pressing need for dialysis today. T he patient has slightly low hemoglobin. She also has thrombocytopenia which has somewhat improved co mpared to yesterday. We will give a dose of rectal hematocrit right now. We will go ahead and hold off on dialysis today. Adjust Levophed to keep blood pressures with systolic close to or above 100. We will consider dialysis tomorrow depending on the patient's clinical status. Discussed plan with the ICU nurse. Dialysis nurse informed for possibility of dialysis tomorrow, but not today. /BERTIN Voice ID: [id number] Report ID: [id number]
[2021-12-09] MEDS: MICAFUNGIN SODIUM 100 MG in NA CHLORIDE 0.9% 100 ML IV SCH (14:12)
--- NOTE | 2021-12-09 15:58 | RAD REPORT ---
EXAM DESCRIPTION: CT - Head Brain Wo Cont - 12/09/2021 3:49 pm CLINICAL HISTORY: Alteration of awareness/confusion COMPARISON: None TECHNIQUE: Computed axial tomography of the head was obtained. IV contrast was not requested. All CT scans are performed using dose optimization technique as appropriate and may include automated exposure control or mA/KV adjustment according to patient size. FINDINGS: An intracranial bleed is not seen . The ventricles are normal in caliber. No extra-axial fluid collection is noted. No significant hypodense areas within the brain IMPRESSION: No acute intracranial abnormality is seen. If patient's symptoms persist MRI of the bra in would be recommended.
--- NOTE | 2021-12-09 16:06 | RAD REPORT ---
EXAM DESCRIPTION: CT - Thorax Wo Con - 12/09/2021 3:49 pm CLINICAL HISTORY: sob COMPARISON: December 02, 2021 TECHNIQUE: Computed axial tomography of the chest was obtained. Contrast was not requested. All CT scans are performed using dose optimization technique as appropriate and may include automated exposure control or mA/KV adjustment according to patient size. FINDINGS: The evaluation of mediastinum, dannielle and vessels is limited secondary to lack of IV contras t administration. Moderate to marked opacification of the right lung without significant change. Mild to moderate opaci fication of the left lung without significant change. The endotracheal tube in good position within the [place]. Enteric tube enters the stomach Mild mediastinal and hilar lymphadenopathy probably reactive in nature. Thyromegaly unchanged A pleural effusion is not present. No pericardial effusion IMPRESSION: Moderate to marked right and mild to moderate left pulmonary opacities without significa nt change. The majority of this is compatible with pulmonary fibrosis. There is a mild superimposed a cute infiltrate which may represent pneumonitis or progressive pulmonary fibrosis
--- NOTE | 2021-12-09 16:28 | RAD REPORT ---
EXAM DESCRIPTION: CT - Abdomen Pelvis Wo Contrast - 12/09/2021 3:49 pm CLINICAL HISTORY: Abdominal pain /rectovaginal fistula COMPARISON: April 2021 TECHNIQUE: Computed axial tomography of the abdomen and pelvis was obtained. IV contrast was not req uested. Oral contrast was given. All CT scans are performed using dose optimization technique as appropriate and may include automated exposure control or mA/KV adjustment according to patient size. FINDINGS: The evaluation of solid organs, and vessels is limited secondary to the lack of contrast administration. A 14 millimeter calculus right UPJ. Mild to moderate right hydronephrosis. Right renal calculi. Tiny nonobstructing left renal calculi. Filter within the IVC. Cirrhotic liver. Spleen is mildly enlarged. Pancreas and adrenals is grossly normal. Nasogastric tube within the gastric body. A Perez catheter within the bladder. Air bubble within vagina. However no contrast within the vagina visualized. There is stranding within the fat between the rectum and the vagina. The rectum is well opacified with contrast No abscess Mild gallbladder distention IMPRESSION: Patient has a history of a known rectovaginal fistula. On the current exam there is an a ir bubble within the vagina and stranding within the fat between the rectum and vagina. This is nonsp ecific. Contrast from the rectum entering the vagina iwas not visualized on this exam. It is recommen ded that the patient have a limited barium enema. If the patient does have a fistula then the increas ed pressure within the rectum from the administered barium will often enter the vagina. 14 millimeter calculus right UPJ resulting in mild to moderate right hydronephrosis
[2021-12-09] MEDS: AA 5%/D20W/ELECTROLYTES-TPN 2,000 ML, Lipids 20% 250 ML with MULTIVITAMINS INJ 10 ML IV SCH ×3 (17:02)
[2021-12-09 18:48] LABS: HBsAG Nonreactive (Nonreactive)
[2021-12-09] MEDS: Meropenem 500 MG in NA CHLORIDE 0.9% 100 ML IV SCH (20:55)
--- NOTE | 2021-12-09 22:05 | P.PN ---
Date of Service: 12/09/21 Subjective Patient is improved. Oxygenation is improved. Hemodynamics are better and patient is on 5 mics of Levophed. Neurologically patient is still not following commands. CT imaging did not reveal any hypoxic injury. CT of the chest does show pneumonia & as well as pulmonary fibrosis. CT of the abdomen and pelvis just reveals a fistula. Review of Systems Unable to obtain Physical Examination - Vital Signs Reviewed - Physical Exam General: Obese, not really following commands HEENT: ET tube in place Respiratory: Diminished but basilar crackles Cardiovascular: Regular rate/rhythm, Normal S1 S2, Systolic murmur Gastrointestinal: Normal bowel sounds, Soft and benign, Non-distended, No tenderness Musculoskeletal: No clubbing, No swelling, No tenderness Neurological: Not following commands; no focal deficits; responds to painful stimuli Assessment & Plan - Problems (Diagnosis) (1) Septic shock Current Visit: Yes Status: Acute (2) Thrombocytopenia Onset Date: 01/05/16 Current Visit: No Status: Acute (3) Chronic kidney disease, stage 3 Current Visit: No Status: Acute (4) Diabetes mellitus type 2 in obese Current Visit: No Status: Acute (5) History of renal stone Current Visit: No Status: Acute (6) Hypertension Current Visit: No Status: Acute (7) Hypothyroidism Current Visit: No Status: Acute (8) Pneumonia Onset Date: 01/05/16 Current Visit: No Status: Acute Qualifiers: Laterality: bilateral Lung location: unspecified part of lung (9) ATN (acute tubular necrosis) Current Visit: Yes Status: Acute (10) Shock liver Current Visit: Yes Status: Acute (11) Fecal impaction Current Visit: Yes Status: Acute (12) Ureterovesical junction (UVJ) obstruction Current Visit: Yes Status: Acute (13) Acute and chronic respiratory failure ([id number]) Current Visit: No Status: Acute Qualifiers: Respiratory failure complication: hypoxia and hypercapnia Qualified Code(s): J96.21 - Acute and chronic respiratory failure with hypoxia; J96.22 - Acute and chronic respiratory failure with hypercapnia - Plan Continue with plan of care as mentioned below: -Mechanical ventilation management per pulmonary; oxygen requirements have decreased but still not following commands; FiO2 down to 30% -Continue vasopressor support; currently on Levophed; on 5mcg -Wean down hydrocortisone -CT head unremarkable -Monitor renal function; urine output increased; status post dialysis yesterday. Will hold off today -Echocardiogram reviewed -Cultures revealed MRSA in sputum and Klebsiella bacteremia; continue with vancomycin and meropenem -Appreciate nephrology consult; hemodialysis per their recommendation --GI prophylaxis with famotidine; tube feedings held because of colovesical fistula. TPN started -She has a history of nephrolithiasis as well as colovaginal fistula-spoke with surgery and this will be dealt with once patient is more stable. Will consult urology when patient more stable for intervention Discharge Plan: Other Plan to discharge in: Greater than 2 days - Advance Directives Does patient have a Living Will: No Does patient have a Durable POA for Healthcare: Yes - Code Status/Comfort Care Code Status Assessed: Yes Code Status: Full Code Critical Care: Yes Time Spent Managing PTS Care (In Minutes): 55
--- NOTE | 2021-12-10 01:26 | P.PN ---
Date of Service: 12/08/21 Subjective Patient slowly improving. Hemodialysis today. Still not following commands. Wean down the Levophed and we will plan to do CT in the morning Review of Systems Unable to obtain Physical Examination - Vital Signs Reviewed - Physical Exam General: Obese, not really following commands HEENT: ET tube in place Respiratory: Diminished but basilar crackles Cardiovascular: Regular rate/rhythm, Normal S1 S2, Systolic murmur Gastrointestinal: Normal bowel sounds, Soft and benign, Non-distended, No tenderness Musculoskeletal: No clubbing, No swelling, No tenderness Neurological: Not following commands; no focal deficits; responds to painful stimuli Assessment & Plan - Problems (Diagnosis) (1) Septic shock Current Visit: Yes Status: Acute (2) Thrombocytopenia Onset Date: 01/05/16 Current Visit: No Status: Acute (3) Chronic kidney disease, stage 3 Current Visit: No Status: Acute (4) Diabetes mellitus type 2 in obese Current Visit: No Status: Acute (5) History of renal stone Current Visit: No Status: Acute (6) Hypertension Current Visit: No Status: Acute (7) Hypothyroidism Current Visit: No Status: Acute (8) Pneumonia Onset Date: 01/05/16 Current Visit: No Status: Acute Qualifiers: Laterality: bilateral Lung location: unspecified part of lung (9) ATN (acute tubular necrosis) Current Visit: Yes Status: Acute (10) Shock liver Current Visit: Yes Status: Acute (11) Fecal impaction Current Visit: Yes Status: Acute (12) Ureterovesical junction (UVJ) obstruction Current Visit: Yes Status: Acute (13) Acute and chronic respiratory failure ([id number]) Current Visit: No Status: Acute Qualifiers: Respiratory failure complication: hypoxia and hypercapnia Qualified Code(s): J96.21 - Acute and chronic respiratory failure with hypoxia; J96.22 - Acute and chronic respiratory failure with hypercapnia - Plan Continue with plan of care as mentioned below: -Mechanical ventilation management per pulmonary; oxygen requirements have decreased but still not following commands; FiO2 down to 30% -Continue vasopressor support; currently on Levophed; on 12mcg -Wean down hydrocortisone -CT head pending -Monitor renal function; urine output increased; Hemodialysis today -Echocardiogram reviewed -Cultures revealed MRSA in sputum and Klebsiella bacteremia; continue with vancomycin and meropenem -Appreciate nephrology consult; hemodialysis per their recommendation -GI prophylaxis with famotidine; -She has a history of nephrolithiasis as well as colovaginal fistula-spoke with surgery and this will be dealt with once patient is more stable. Will consult urology when patient more stable for intervention Discharge Plan: Other Plan to discharge in: Greater than 2 days - Advance Directives Does patient have a Living Will: No Does patient have a Durable POA for Healthcare: Yes - Code Status/Comfort Care Code Status Assessed: Yes Code Status: Full Code Critical Care: Yes Time Spent Managing PTS Care (In Minutes): 35
[2021-12-10] MEDS: ALBUTEROL 2.5 MG/3 ML NEB SOL NEB SCH ×4 (02:15→20:05)
[2021-12-10 05:00] LABS: Absolute Lymphocytes (CBC) 0.6 K/uL (0.7-4.9); Hematocrit 22.9 % (36.0-45.0); Lymphocytes % 2.5 % (15.3-44.8); MPV 11.7 fL (7.6-11.3); RBC Red Blood Cell Count 2.61 M/uL (3.86-4.86)
[2021-12-10 05:13] LABS: Urine Appearance TURBID (Clear); Urine Bilirubin Negative (Negative); Urine Blood 2+ (Negative); Urine Color Yellow (Yellow); Urine Glucose Negative (Negative); Urine Protein 2+ (Negative); Urine Urobilinogen 0.2 mg/dL (0.2-1.0); Urine pH 5.5 (5.0-7.0)
[2021-12-10 05:18] LABS: Urine Microscopic Reflex ORDER UMIC
[2021-12-10 05:19] LABS: Urine Bacteria 20-50 /HPF (<20); Urine RBC <5 /HPF (NONE SEEN); Urine Urothelial Cells <5 /HPF (NONE SEEN)
[2021-12-10 05:19] LABS: UR PROTEIN 126.8 mg/dL (<11.9); Urine Protein/Creatinine Ratio 3.43 ratio (<0.15)
[2021-12-10 05:28] LABS: Albumin 2.1 g/dL (3.4-5.0); Bilirubin Total 1.1 mg/dL (0.2-1.0); Magnesium 1.7 mg/dL (1.8-2.4); Phosphorus 1.3 mg/dL (2.5-4.9); Potassium 3.2 mmol/L (3.5-5.1); Protein, Total 5.3 g/dL (6.4-8.2)
[2021-12-10] MEDS: INSULIN -REGULAR HUMAN 50 UNIT/0.5 ML ML SQ SCH ×4 (06:27→23:59)
--- NOTE | 2021-12-10 08:06 | P.PN ---
Subjective Date of Service: 12/10/21 Chief Complaint: Multiorgan failure, colovaginal fistula Subjective: No new changes Review of Systems is unable to be obtained Physical Examination - Vital Signs Temperature: 97 F Blood Pressure: 121/69 Pulse: 86 Respirations: 26 Pulse Ox (%): 96 - Physical Exam General: Unresponsive HEENT: Atraumatic, Normocephalic Neck: Supple Respiratory: Normal air movement Cardiovascular: Regular rate/rhythm Gastrointestinal: Soft and benign Neurological: Other (sedated.) - Studies Medications List Reviewed: Yes Assessment And Plan - Plan Sepsis with shock Colovesical fistula Shock Resp failure Chronic kidney disease Hypertension Diabetes type 2 Plan: Presently she still requiring vasopressors and on mechanical ventilation Continue mechanical ventilation management as per pulmonary physician. Continue vasopressors and aim for map of 65 mmHg. Continue to monitor vital signs per ICU protocol. We will continue empiric antibiotic therapy pending review. Fistula situation being monitored by surgeon. Once patient is stable she should be able to get surgical intervention.
[2021-12-10] MEDS: FAMOTIDINE 20 MG/2 ML VIAL IV SCH (08:51)
[2021-12-10] MEDS ORDERED: HYDROCORTISONE SUC 100 MG INJ IV SCH (09:00)
[2021-12-10] MEDS: ALBUMIN HUMAN 25% 50 ML IV SCH (09:42)
[2021-12-10] MEDS ORDERED: POTASSIUM 25 MEQ EFFERV TAB FT SCH (10:00)
[2021-12-10] MEDS ORDERED: POTASSIUM 25 MEQ EFFERV TAB FT ONE (10:05)
[2021-12-10] MEDS ORDERED: POTASSIUM PHOS 30 MM in NA CHLORIDE 0.9% 500 ML IV ONE (10:15)
--- NOTE | 2021-12-10 10:26 | P.PN ---
Date of Service: 12/10/21 Vital Signs Temp Pulse Resp BP Pulse Ox 97 F 86 26 H 121/69 96 12/10/21 08:51 12/10/21 08:51 12/10/21 08:51 12/10/21 08:51 12/10/21 08:51 Medications Albuterol Sulfate (Albuterol 2.5 Mg/3 Ml Neb Vidya) 2.5 mg NEB [id number] MANDO Last Admin: 12/10/21 08:00 Dose: 2.5 mg Documented by: Dextrose (D50w 25 Gm/50 Ml Syringe) 12.5 gm IV PRN PRN PRN Reason: HYPOGLYCEMIA Famotidine (Famotidine 20 Mg/2 Ml Vial) 20 mg IV Q24H MANDO; Protocol Last Admin: 12/10/21 08:51 Dose: 20 mg Documented by: Fentanyl Citrate (Fentanyl Citr 100 Mcg/2 Ml) 25 mcg IV Q4H PRN PRN Reason: Pain scale 8-10 (Severe) Last Admin: 12/09/21 19:57 Dose: 25 mcg Documented by: Glucagon (Glucagon 1 Mg/Vial) 1 mg IM 1X PRN PRN Reason: HYPOGLYCEMIA Haloperidol Lactate (Haloperidol Lact 5 Mg/Ml Inj) 2 mg IV Q4H PRN PRN Reason: AGITATION Heparin Sodium (Porcine) (Heparin 1,000 Unit/Ml Vial) 4,000 unit IV EVERY HD PRN PRN Reason: DIALYSIS CATHETER CARE Last Admin: 12/07/21 12:45 Dose: 4,000 unit Documented by: Hydrocortisone Sodium Succinate (Hydrocortisone Suc 100 Mg Inj) 25 mg IV Q12HR MANDO Last Admin: 12/10/21 08:52 Dose: 25 mg Documented by: Phenylephrine HCl 50 mg/ (Dextrose) 255 mls @ 6.12 mls/hr IV TITR MANDO; Protocol Last Titration: 12/06/21 05:00 Dose: 0 mcg/min, 0 mls/hr Documented by: Norepinephrine Bitartrate 8 mg (/ Dextrose) 508 mls @ 3.81 mls/hr IV TITR MANDO; Protocol Last Titration: 12/10/21 06:15 Dose: 3 mcg/min, 11.4 mls/hr Documented by: Sodium Chloride (Sodium Chloride) 250 mls @ 0 mls/hr IV .Q0M MANDO Albumin Human (Albumin 25%) 50 mls @ 100 mls/hr IV EVERY HD MANDO Last Admin: 12/07/21 11:00 Dose: 50 mls Documented by: Meropenem 500 mg/ Sodium (Chloride) 100 mls @ 200 mls/hr IV Q24H MANDO Last Admin: 12/09/21 20:55 Dose: 100 mls Documented by: Micafungin Sodium 100 mg/ (Sodium Chloride) 100 mls @ 100 mls/hr IV Q24H MANDO Last Admin: 12/09/21 14:12 Dose: 100 mls Documented by: Vancomycin HCl 1 gm/ Sodium (Chloride) 250 mls @ 250 mls/hr IVPB AFTER EACH DIALYSIS [facility] Last Admin: 12/08/21 20:04 Dose: 250 mls Documented by: Multivitamins 10 ml/ Amino Acids/Electrolytes/ Fat Emulsion Intravenous 2,260 mls @ 70 mls/hr IV 1700 [facility] Last Admin: 12/09/21 17:02 Dose: 2,260 mls Documented by: Potassium Phosphate 30 mm/ (Sodium Chloride) 500 mls @ 100 mls/hr IV 1X ONE; Protocol Stop: 12/10/21 15:14 Insulin Human Regular (Insulin -Regular Human 50 Unit/0.5 Ml Ml) 0 unit SQ Q6HR [facility]; Protocol Last Admin: 12/10/21 06:27 Dose: 7 unit Documented by: Lorazepam (Lorazepam 2 Mg/Ml Vial) 2 mg IV Q2H PRN PRN Reason: SEDATION Last Admin: 12/09/21 14:48 Dose: 2 mg Documented by: Mannitol (Mannitol 25% 12.5 Gm/50 Ml Vial) 12.5 gm IV EVERY HD PRN PRN Reason: Titrate to SBP (MUST DEFINE) Microbiology Results 12/02/21 09:40 Blood - Blood Aerobic Blood Culture - Final Gram Neg Alan Klebsiella Pneumoniae 12/02/21 09:40 Blood - Blood Blood Culture Gram Stain - Final 12/02/21 09:40 Blood - Blood Anaerobic Blood Culture - Final Gram Neg Alan Klebsiella Pneumoniae 12/02/21 09:40 Blood - Blood Gram Stain - Final 12/02/21 10:35 Blood - Blood Aerobic Blood Culture - Final Gram Neg Alan Klebsiella Pneumoniae 12/02/21 10:35 Blood - Blood Blood Culture Gram Stain - Final 12/02/21 10:35 Blood - Blood Anaerobic Blood Culture - Final Gram Neg Alan Klebsiella Pneumoniae 03/20/22 10:35 Blood - Blood Gram Stain - Final Assessment/ Plan: Nephrology Limited IH/ ROS due to AMS Seen and examined on HD No acute events overnight Vitals, medications, blood work and imaging reviewed in the chart. General: Unresponsive HEENT: Atraumatic Neck: Supple Respiratory: Clear to auscultation bilaterally Cardiovascular: No rubs, Edema Gastrointestinal: Soft and benign, Non-distended Musculoskeletal: No clubbing, No contractures Integumentary: No rashes, No cyanosis Neurological: Abnormal tone Greater than 30min patient care Laboratory Data (last 24 hrs) 12/02/21 10:05: PT 12.6 H, INR 1.14, APTT 24.7 12/02/21 10:05: WBC 17.10 H, Hgb 13.4, Hct 41.8, Plt Count 52 L Imagings Data: EXAM DESCRIPTION: CT - Chest Abd Pelvis Wo Con - 12/02/2021 12:49 pm CLINICAL HISTORY: AMS/Sepsis;Congestion COMPARISON: Thorax Wo Con dated 03/22/2021; Chest For Pe Angio dated 09/22/2020; Abdomen Pelvis W Contrast dated 04/25/2021 TECHNIQUE: During dynamic enhancement using 100 milliliters nonionic IV contrast, axial 5 millimeter thick images of the chest, abdomen and pelvis were obtained. Biphasic technique was utilized through the abdomen. Oral contrast was administered. All CT scans are performed using dose optimization technique as appropriate and may include automated exposure control or mA/KV adjustment according to patient size. FINDINGS: Thyromegaly again noted. Extensive baseline interstitial thickening is present in both lung sommer, more pronounced on the right. There is right hemithorax volume loss relative to the left also seen as stable. Scattered areas of nodularity in the lung parenchyma show no change in size. No endobronchial lesions seen. Increased wound glass opacities are present in the left lung field. Respiratory motion degradation decreases overall sensitivity of assessment. Increased interstitial opacification noted in the lower left lung field and in the posterior lower righ t lung field compared to the prior study. Cardiomegaly without pericardial effusion seen. Right shift of the heart and mediastinal structures has not changed. No pneumothorax or pleural effusion. No chest wall mass or abnormal axillary lymphadenopathy seen. Mediastinal and hilar lymph node pattern has not changed. No bulky lymphadenopathy seen. Pulmonary arteries are prominent. The liver, spleen and pancreas show no significant findings. Gallbladder is well filled and contains multiple gallstones. No biliary tree dilatation. Right kidney is larger than the left. Function cannot be assessed on a noncontrast study. A 15-18 millimeter cluster of multiple calcifications seen in the calices in parenchyma of the lower right kidney. There is moderate dilatation of the pelvis and calices present. Multiple 3-5 mm mid right renal calyx calculi are present. Approximately 2 centimeter calcification is seen layering in the dependent portion of the dilated pelvis. There is a 15 millimeter oval calcification at the right UPJ. More distally the right ureter is not abnormally dilated. A few nonobstructing calyx and parenchymal calculi noted on the left. Punctate 1-2 mm size calcifications seen in the non dilated left renal pelvis. No adrenal abnormalities. Urinary bladder is fully contracted around a Perez catheter. Uterus has a lobulated contour that may indicate presence of 1 or more fibroids. Atrophic ovaries are identified. No acute stomach or small bowel finding. Sigmoid anastomotic site shows no acute finding. Large amount of stool is present dilating the rectum to 9 cm. Sigmoid s tool volume is moderate. No colon mass lesions seen. No free air, free fluid or inflammatory stranding. No hernia, mass or bulky lymphadenopathy. Disc and bone degenerative changes are present. No pathologic bone process seen. IVC filter is in place. IMPRESSION: Patient has extensive baseline interstitial fibrotic change. Additional areas of interstitial opacification and ground-glass opacification are present compared to 03/22/2021 imaging. Progressive interstitial fibrotic disease possible. Superimposed interstitial and alveolar infiltrate should be considered. There is no large new mass or consolidation. Multi stone cholelithiasis as previously seen. No biliary tree dilatation. Approximately 15 millimeter right-side UPJ calculus with moderate dilatation of the pelvis and calices. The UPJ calculus may be partially or intermittently obstructive. Pelvis and calices are only slightly larger than seen on 04/25/2021 imaging. Patient has multiple additional nonobstructing pelvis, calyx and parenchymal calculi on the right. No acute GI or process seen. There is a large stool volume dilating the rectum to 9 cm. Conclusions/Impression: LUISANA likely Oliguric ATN in the setting septic shock complicated by Etolodac. CKD II with proteinuria -No NSAIDs -Maintain BP support -HD initiated [id number]; HD today -Hepatitis negative Hyponatremia -HD as ordered Hypokalemia -Replete potassium HypoPO4 -Replete PO4 Nephrolithiasis -Consider urology evaluation for possible right UPJ obstruction DM II with CKD -RISS Severe malnutrition Hypoalbuminemia -NPO -Continue TPN -IV Albumin prn Anemia in chronic illness -Monitor H&H -Start Retacrit MWF Acute respiratory failure with hypercapnea -Ventilatory support as ordered -Wean Oxygen as tolerated Sepsis/ Septic shock/ Klebsiella Pneumoniae Acute hepatitis likely due to shock -Continue pressor support -Continue Abx; monitor vanco level Colovaginal fistula -Surgery is following -NPO; Continue TPN Toxic metabolic encephalopathy due to sepsis -Continue abx
--- NOTE | 2021-12-10 11:37 | P.PN ---
Subjective Date of Service: 12/10/21 Chief Complaint: Multiorgan failure, colovaginal fistula Patient is improving more responsive hemodynamically stable weaned off vasopressors minimal oxygen requirement Review of Systems is unable to be obtained Physical Examination - Vital Signs Temperature: 97 F Blood Pressure: 121/69 Pulse: 86 Respirations: 26 Pulse Ox (%): 96 - Physical Exam General: Other (Minimally responsive and opening eyes) Neck: Supple Respiratory: Diminished, Crackles/rales (Crackles right greater than left) Cardiovascular: Edema Gastrointestinal: Normal bowel sounds, Soft and benign - Studies Medications List Reviewed: Yes Assessment And Plan - Current Problems (Diagnosis) (1) Septic shock Current Visit: Yes Status: Acute Plan: Condition is improving labs reviewed white count stable kidney function is improving vital signs stable probably has septic encephalopathy hopefully will try and wean her off from the ventilator soon chest x-ray still shows diffuse pneumonia right worse than the left probably has underlying ARDS patient still requiring low-dose vasopressors currently on TPN
[2021-12-10] MEDS: MICAFUNGIN SODIUM 100 MG in NA CHLORIDE 0.9% 100 ML IV SCH (13:57)
[2021-12-10] MEDS: EPOETIN ALFA-EPBX 10,000 UNIT/ML VIAL SQ SCH (18:12)
[2021-12-10] MEDS: AA 5%/D20W/ELECTROLYTES-TPN 2,000 ML, Lipids 20% 250 ML with MULTIVITAMINS INJ 10 ML IV SCH ×3 (18:12)
[2021-12-10] MEDS: Meropenem 500 MG in NA CHLORIDE 0.9% 100 ML IV SCH (21:50)
[2021-12-10] MEDS: VANCOMYCIN 1 GM in NA CHLORIDE 0.9% 250 ML IVPB SCH (22:42)
[2021-12-10] MEDS ORDERED: NA CHLORIDE 0.9% 250 ML ONE (22:44)
[2021-12-11] MEDS: ALBUTEROL 2.5 MG/3 ML NEB SOL NEB SCH ×4 (02:40→19:50)
[2021-12-11] MEDS: INSULIN -REGULAR HUMAN 50 UNIT/0.5 ML ML SQ SCH ×3 (05:49→18:27)
[2021-12-11 06:15] LABS: Absolute Lymphocytes (CBC) 0.5 K/uL (0.7-4.9); Hematocrit 22.2 % (36.0-45.0); Lymphocytes % 3.2 % (15.3-44.8); MPV 10.7 fL (7.6-11.3); RBC Red Blood Cell Count 2.54 M/uL (3.86-4.86)
[2021-12-11 06:39] LABS: Albumin 2.2 g/dL (3.4-5.0); Magnesium 1.6 mg/dL (1.8-2.4); Phosphorus 3.5 mg/dL (2.5-4.9); Potassium 3.3 mmol/L (3.5-5.1); Protein, Total 5.3 g/dL (6.4-8.2)
--- NOTE | 2021-12-11 06:47 | P.PN ---
Subjective Date of Service: 12/11/21 Chief Complaint: Multiorgan failure, colovaginal fistula Subjective: No new changes Physical Examination - Vital Signs Temperature: 97 F Blood Pressure: 92/52 Pulse: 92 Respirations: 27 Pulse Ox (%): 97 - Physical Exam General: Other (Sedated.) HEENT: Atraumatic, Normocephalic Neck: Supple Respiratory: Normal air movement Cardiovascular: Regular rate/rhythm, Normal S1 S2 Gastrointestinal: Soft and benign Neurological: Other (Sedated.) - Studies Medications List Reviewed: Yes Assessment And Plan - Plan Sepsis with shock Colovesical fistula Shock Resp failure LUISANA on Chronic kidney disease-dialysis dependent. Hypertension Diabetes type 2 Plan: Presently she is still requiring vasopressors and is on mechanical ventilation Continue mechanical ventilation management as per pulmonary physician. Continue vasopressors and aim for map of 65 mmHg. Continue to monitor vital signs per ICU protocol. We will continue empiric antibiotic therapy pending review. Fistula situation being monitored by surgeon. Once patient is stable she should be able to get surgical intervention. Patient presently on dialysis and is being managed by nephrology team. We will continue to monitor electrolyte profile and acid-base status. Mostly renal function to be evaluated and managed by nephrology team
--- NOTE | 2021-12-11 07:13 | RAD REPORT ---
EXAM DESCRIPTION: RAD - Chest Single View - 12/11/2021 5:40 am CLINICAL HISTORY: pneumonia COMPARISON: Chest Single View dated 12/09/2021; Chest Single View dated 12/08/2021; Chest Single View dated 12/07/2021; Chest Single View dated 12/06/2021; Thorax Wo Con dated 12/09/2021 FINDINGS: Lines: Endotracheal tube, enteric tube in similar positioning Lungs: Severe widespread bilateral airspace disease which is unchanged. Pleural: No significant pleural effusions or pneumothorax. Cardiac: Similar size and configuration Bones: No acute fractures. Other: IMPRESSION: Widespread pulmonary opacities, right greater than left, are similar to 12/09/2021. Stab le support apparatus.
[2021-12-11] MEDS: KCL 20 MEQ/100 mL IVPB 20 MEQ/100 ML BAG IV SCH ×2 (08:32→11:18)
[2021-12-11] MEDS: NOREPINEPHRINE 8 MG in Dextrose 5%-Water 500 ML IV SCH (08:38)
[2021-12-11] MEDS: FAMOTIDINE 20 MG/2 ML VIAL IV SCH (11:18)
--- NOTE | 2021-12-11 12:56 | P.PN ---
Subjective Date of Service: 12/11/21 Chief Complaint: Multiorgan failure, colovaginal fistula Minimally responsive on vasopressors requiring Levophed Review of Systems is unable to be obtained Physical Examination - Vital Signs Temperature: 97 F Blood Pressure: 106/57 Pulse: 89 Respirations: 30 Pulse Ox (%): 96 - Physical Exam General: Unresponsive Respiratory: Clear to auscultation bilaterally, Diminished Cardiovascular: Normal S1 S2, Edema - Studies Medications List Reviewed: Yes Assessment And Plan - Current Problems (Diagnosis) (1) Septic shock Current Visit: Yes Status: Acute Plan: Patient is not doing well hypotensive requiring vasopressors on dialysis renal function improving add [id number] count is significantly improved minimally responsive patient is on assist control FiO2 of 30% chest x-ray shows severe bilateral inflammatory changes no significant change from a prior x-rays discussed with relatives regarding further management prognosis very poor add low-dose hydrocortisone for now
[2021-12-11] MEDS: HYDROCORTISONE SUC 100 MG INJ IV SCH ×2 (15:02→20:58)
[2021-12-11] MEDS: MICAFUNGIN SODIUM 100 MG in NA CHLORIDE 0.9% 100 ML IV SCH (15:03)
[2021-12-11] MEDS: AA 5%/D20W/ELECTROLYTES-TPN 2,000 ML, Lipids 20% 250 ML with MULTIVITAMINS INJ 10 ML IV SCH ×3 (17:06)
[2021-12-11] MEDS: Meropenem 500 MG in NA CHLORIDE 0.9% 100 ML IV SCH (20:57)
--- NOTE | 2021-12-11 21:55 | P.PN ---
Date of Service: 12/11/21 Vital Signs Temp Pulse Resp BP Pulse Ox 97.1 F 88 29 H 104/55 L 96 12/11/21 16:00 12/11/21 21:00 12/11/21 21:00 12/11/21 21:00 12/11/21 21:00 Medications Albuterol Sulfate (Albuterol 2.5 Mg/3 Ml Neb Vidya) 2.5 mg NEB [id number] [facility] Last Admin: 12/11/21 15:10 Dose: 2.5 mg Documented by: Dextrose (D50w 25 Gm/50 Ml Syringe) 12.5 gm IV PRN PRN PRN Reason: HYPOGLYCEMIA Famotidine (Famotidine 20 Mg/2 Ml Vial) 20 mg IV Q24H [facility]; Protocol Last Admin: 12/11/21 11:18 Dose: 20 mg Documented by: Fentanyl Citrate (Fentanyl Citr 100 Mcg/2 Ml) 25 mcg IV Q4H PRN PRN Reason: Pain scale 8-10 (Severe) Last Admin: 12/09/21 19:57 Dose: 25 mcg Documented by: Glucagon (Glucagon 1 Mg/Vial) 1 mg IM 1X PRN PRN Reason: HYPOGLYCEMIA Haloperidol Lactate (Haloperidol Lact 5 Mg/Ml Inj) 2 mg IV Q4H PRN PRN Reason: AGITATION Heparin Sodium (Porcine) (Heparin 1,000 Unit/Ml Vial) 4,000 unit IV EVERY HD PRN PRN Reason: DIALYSIS CATHETER CARE Last Admin: 12/10/21 12:48 Dose: 4,000 unit Documented by: Hydrocortisone Sodium Succinate (Hydrocortisone Suc 100 Mg Inj) 50 mg IV Q12HR [facility] Last Admin: 12/11/21 20:58 Dose: 50 mg Documented by: Phenylephrine HCl 50 mg/ (Dextrose) 255 mls @ 6.12 mls/hr IV TITR [facility]; Protocol Last Titration: 12/06/21 05:00 Dose: 0 mcg/min, 0 mls/hr Documented by: Norepinephrine Bitartrate 8 mg (/ Dextrose) 508 mls @ 3.81 mls/hr IV TITR [facility]; Protocol Last Titration: 12/11/21 19:40 Dose: 0.5 mcg/min, 1.9 mls/hr Documented by: Sodium Chloride (Sodium Chloride) 250 mls @ 0 mls/hr IV .Q0M [facility] Albumin Human (Albumin 25%) 50 mls @ 100 mls/hr IV EVERY HD [facility] Last Admin: 12/10/21 09:42 Dose: 50 mls Documented by: Meropenem 500 mg/ Sodium (Chloride) 100 mls @ 200 mls/hr IV Q24H [facility] Last Admin: 12/11/21 20:57 Dose: 100 mls Documented by: Micafungin Sodium 100 mg/ (Sodium Chloride) 100 mls @ 100 mls/hr IV Q24H [facility] Last Admin: 12/11/21 15:03 Dose: 100 mls Documented by: Vancomycin HCl 1 gm/ Sodium (Chloride) 250 mls @ 250 mls/hr IVPB AFTER EACH DIALYSIS [facility] Last Admin: 12/10/21 22:42 Dose: 250 mls Documented by: Multivitamins 10 ml/ Amino Acids/Electrolytes/ Fat Emulsion Intravenous 2,260 mls @ 70 mls/hr IV 1700 [facility] Last Admin: 12/11/21 17:06 Dose: 2,260 mls Documented by: Insulin Human Regular (Insulin -Regular Human 50 Unit/0.5 Ml Ml) 0 unit SQ Q6HR [facility]; Protocol Last Admin: 12/11/21 18:27 Dose: 3 unit Documented by: Lorazepam (Lorazepam 2 Mg/Ml Vial) 2 mg IV Q2H PRN PRN Reason: SEDATION Last Admin: 12/09/21 14:48 Dose: 2 mg Documented by: Mannitol (Mannitol 25% 12.5 Gm/50 Ml Vial) 12.5 gm IV EVERY HD PRN PRN Reason: Titrate to SBP (MUST DEFINE) Microbiology Results 12/02/21 09:40 Blood - Blood Aerobic Blood Culture - Final Gram Neg Alan Klebsiella Pneumoniae 12/02/21 09:40 Blood - Blood Blood Culture Gram Stain - Final 12/02/21 09:40 Blood - Blood Anaerobic Blood Culture - Final Gram Neg Alan Klebsiella Pneumoniae 12/02/21 09:40 Blood - Blood Gram Stain - Final 12/02/21 10:35 Blood - Blood Aerobic Blood Culture - Final Gram Neg Alan Klebsiella Pneumoniae 12/02/21 10:35 Blood - Blood Blood Culture Gram Stain - Final 12/02/21 10:35 Blood - Blood Anaerobic Blood Culture - Final Gram Neg Alan Klebsiella Pneumoniae 12/02/21 10:35 Blood - Blood Gram Stain - Final Assessment/ Plan: Nephrology Limited IH/ ROS due to AMS No acute events overnight Vitals, medications, blood work and imaging reviewed in the chart. General: Unresponsive HEENT: Atraumatic Neck: Supple Respiratory: Clear to auscultation bilaterally Cardiovascular: No rubs, Edema Gastrointestinal: Soft and benign, Non-distended Musculoskeletal: No clubbing, No contractures Integumentary: No rashes, No cyanosis Neurological: Abnormal tone Greater than 30min patient care Laboratory Data (last 24 hrs) 12/02/21 10:05: PT 12.6 H, INR 1.14, APTT 24.7 12/02/21 10:05: WBC 17.10 H, Hgb 13.4, Hct 41.8, Plt Count 52 L Imagings Data: EXAM DESCRIPTION: CT - Chest Abd Pelvis Wo Con - 12/02/2021 12:49 pm CLINICAL HISTORY: AMS/Sepsis;Congestion COMPARISON: Thorax Wo Con dated 03/22/2021; Chest For Pe Angio dated 09/22/2020; Abdomen Pelvis W Contrast dated 04/25/2021 TECHNIQUE: During dynamic enhancement using 100 milliliters nonionic IV contrast, axial 5 millimeter thick images of the chest, abdomen and pelvis were obtained. Biphasic technique was utilized through the abdomen. Oral contrast was administered. All CT scans are performed using dose optimization technique as appropriate and may include automated exposure control or mA/KV adjustment according to patient size. FINDINGS: Thyromegaly again noted. Extensive baseline interstitial thickening is present in both lung sommer, more pronounced on the right. There is right hemithorax volume loss relative to the left also seen as stable. Scattered areas of nodularity in the lung parenchyma show no change in size. No endobronchial lesions seen. Increased wound glass opacities are present in the left lung field. Respiratory motion degradation decreases overall sensitivity of assessment. Increased interstitial opacifica tion noted in the lower left lung field and in the posterior lower right lung field compared to the prior study. Cardiomegaly without pericardial effusion seen. Right shift of the heart and mediastinal structures has not changed. No pneumothorax or pleural effusion. No chest wall mass or abnormal axillary lymphadenopathy seen. Mediastinal and hilar lymph node pattern has not changed. No bulky lymphadenopathy seen. Pulmonary arteries are prominent. The liver, spleen and pancreas show no significant findings. Gallbladder is well filled and contains multiple gallstones. No biliary tree dilatation. Right kidney is larger than the left. Function cannot be assessed on a noncontrast study. A 15-18 millimeter cluster of multiple calcifications seen in the calices in parenchyma of the lower right kidney. There is moderate dilatation of the pelvis and calices present. Multiple 3-5 mm mid right renal calyx calculi are present. Approximately 2 centimeter calcification is seen layering in the dependent portion of the dilated pelvis. There is a 15 millimeter oval calcification at the right UPJ. More distally the right ureter is not abnormally dilated. A few nonobstructing calyx and parenchymal calculi noted on the left. Punctate 1-2 mm size calcifications seen in the non dilated left renal pelvis. No adrenal abnormalities. Urinary bladder is fully contracted around a Perez catheter. Uterus has a lobulated contour that may indicate presence of 1 or more fibroids. Atrophic ovaries are identified. No acute stomach or small bowel finding. Sigmoid anastomotic site shows no acute finding. Large amount of stool is present dilating the rectum to 9 cm. Sigmoid stool volume is moderate. No colon mass lesions seen. No free air, free fluid or inflammatory stranding. No hernia, mass or bulky lymphadenopathy. Disc and bone degenerative changes are present. No pathologic bone process seen. IVC filter is in place. IMPRESSION: Patient has extensive baseline interstitial fibrotic change. Ad ditional areas of interstitial opacification and ground-glass opacification are present compared to 03/22/2021 imaging. Progressive interstitial fibrotic disease possible. Superimposed interstitial an d alveolar infiltrate should be considered. There is no large new mass or consolidation. Multi stone cholelithiasis as previously seen. No biliary tree dilatation. Approximately 15 millimeter right-side UPJ calculus with moderate dilatation of the pelvis and calices. The UPJ calculus may be partially or intermittently obstructive. Pelvis and calices are only slightly larger than seen on 04/25/2021 imaging. Patient has multiple additional nonobstructing pelvis, calyx and parenchymal calculi on the right. No acute GI or process seen. There is a large stool volume dilating the rectum to 9 cm. Conclusions/Impression: LUISANA likely Oliguric ATN in the setting septic shock complicated by Etolodac. CKD II with proteinuria -No NSAIDs -Maintain BP support -HD initiated 3221017; HD today -Hepatitis negative Hyponatremia -HD as ordered Hypokalemia -Replete potassium IV HypoPO4 -Replete PO4 Nephrolithiasis -Consider urology evaluation for possible right UPJ obstruction DM II with CKD -RISS Severe malnutrition Hypoalbuminemia -NPO -Continue TPN -IV Albumin prn Anemia in chronic illness -Monitor H&H -Continue Retacrit MWF Acute respiratory failure with hypercapnea -Ventilatory support as ordered -Wean Oxygen as tolerated Sepsis/ Septic shock/ Klebsiella Pneumoniae Acute hepatitis likely due to shock -Continue pressor support -Continue Abx; monitor vanco level Colovaginal fistula -Surgery is following -NPO; Continue TPN Toxic metabolic encephalopathy due to sepsis -Continue abx
[2021-12-12] MEDS: INSULIN -REGULAR HUMAN 50 UNIT/0.5 ML ML SQ SCH ×4 (00:12→18:00)
[2021-12-12] MEDS: ALBUTEROL 2.5 MG/3 ML NEB SOL NEB SCH ×4 (01:50→20:00)
--- NOTE | 2021-12-12 07:59 | P.PN ---
Subjective Date of Service: 12/12/21 Chief Complaint: Multiorgan failure, colovaginal fistula Subjective: No new changes Physical Examination - Vital Signs Temperature: 97 F Blood Pressure: 111/64 Pulse: 85 Respirations: 28 Pulse Ox (%): 99 - Physical Exam General: Unresponsive HEENT: Normocephalic Neck: Supple Respiratory: Normal air movement Cardiovascular: Regular rate/rhythm, Normal S1 S2 Gastrointestinal: Soft and benign Neurological: Other (sedated.) - Studies Medications List Reviewed: Yes Assessment And Plan - Plan Sepsis with shock Colovesical fistula Shock Resp failure with hypoxia LUISANA on Chronic kidney disease-dialysis dependent. Hypertension Diabetes type 2 Volume overload. Plan: Now off vasopressors. Continue mechanical ventilation management as per pulmonary physician. Still very volume overloaded. Continue to monitor vital signs per ICU protocol. We will continue empiric antibiotic therapy pending review. Fistula situation being monitored by surgeon. Once patient is stable she should be able to be transferred to higher level of care. Patient presently on dialysis and is being managed by nephrology team. We will continue to monitor electrolyte profile and acid-base status. Mostly renal function to be evaluated and managed by nephrology team. Volume status management as per medical safety director.
[2021-12-12] MEDS: FAMOTIDINE 20 MG/2 ML VIAL IV SCH (08:57)
[2021-12-12] MEDS: HYDROCORTISONE SUC 100 MG INJ IV SCH ×2 (08:57→20:27)
[2021-12-12 10:23] LABS: Absolute Lymphocytes (CBC) 0.6 K/uL (0.7-4.9); Lymphocytes % 3.7 % (15.3-44.8); MPV 10.9 fL (7.6-11.3); RBC Red Blood Cell Count 2.28 M/uL (3.86-4.86)
[2021-12-12 10:26] LABS: Hematocrit 20.5 % (36.0-45.0)
[2021-12-12 10:34] LABS: Magnesium 1.7 mg/dL (1.8-2.4); Potassium 3.9 mmol/L (3.5-5.1)
--- NOTE | 2021-12-12 12:28 | P.PN ---
Subjective Date of Service: 12/12/21 Chief Complaint: Multiorgan failure, colovaginal fistula No significant change on TPN minimally responsive Review of Systems is unable to be obtained Physical Examination - Vital Signs Temperature: 96.9 F Blood Pressure: 88/56 Pulse: 76 Respirations: 23 Pulse Ox (%): 100 - Physical Exam General: Other - Studies Medications List Reviewed: Yes Assessment And Plan - Current Problems (Diagnosis) (1) Septic shock Current Visit: Yes Status: Acute Plan: Minimally responsive anemic renal failure creatinine is slightly worse patient is on FiO2 of 30% chest x-ray still shows diffuse bilateral changes repeat chest x-ray ordered patient anemic no GI bleeding continue weaning white count is declining prognosis poor patient has been off vasopressors since 9 PM last night
[2021-12-12 13:32] LABS: Anisocytosis 1+; Blood Morphology Comment NOTED (NOT SEEN); Hypochromasia 1+; Platelet Estimate DECR; Polychromasia 1+
--- NOTE | 2021-12-12 14:21 | RAD REPORT ---
EXAM DESCRIPTION: CT - Head Brain Wo Cont - 12/12/2021 2:12 pm CLINICAL HISTORY: Alteration of awareness/confusion COMPARISON: December 09, 2021 TECHNIQUE: Computed axial tomography of the head was obtained. IV contrast was not requested. All CT scans are performed using dose optimization technique as appropriate and may include automated exposure control or mA/KV adjustment according to patient size. FINDINGS: An intracranial bleed is not seen . The ventricles are normal in caliber. No extra-axial fluid collection is noted. No significant hypodense areas within the brain Fluid within the sinuses/ mastoids is not seen. IMPRESSION: No acute intracranial abnormality is seen. If patient's symptoms persist MRI of the bra in would be recommended.
[2021-12-12] MEDS: MICAFUNGIN SODIUM 100 MG in NA CHLORIDE 0.9% 100 ML IV SCH (14:43)
[2021-12-12] MEDS: ALBUMIN HUMAN 25% 50 ML IV SCH (15:45)
[2021-12-12] MEDS: AA 5%/D20W/ELECTROLYTES-TPN 2,000 ML, Lipids 20% 250 ML with MULTIVITAMINS INJ 10 ML IV SCH ×3 (17:29)
[2021-12-12] MEDS: EPOETIN ALFA-EPBX 10,000 UNIT/ML VIAL SQ SCH (17:29)
[2021-12-12] MEDS: Meropenem 500 MG in NA CHLORIDE 0.9% 100 ML IV SCH (20:28)
[2021-12-12 20:46] LABS: Hematocrit 22.1 % (36.0-45.0)
--- NOTE | 2021-12-12 20:54 | P.PN ---
Date of Service: 12/12/21 Vital Signs Temp Pulse Resp BP Pulse Ox 97.7 F 78 18 91/46 L 97 12/12/21 20:00 12/12/21 20:00 12/12/21 20:00 12/12/21 20:00 12/12/21 20:00 Medications Albuterol Sulfate (Albuterol 2.5 Mg/3 Ml Neb Vidya) 2.5 mg NEB [id number] [facility] Last Admin: 12/12/21 13:35 Dose: 2.5 mg Documented by: Dextrose (D50w 25 Gm/50 Ml Syringe) 12.5 gm IV PRN PRN PRN Reason: HYPOGLYCEMIA Famotidine (Famotidine 20 Mg/2 Ml Vial) 20 mg IV Q24H [facility]; Protocol Last Admin: 12/12/21 08:57 Dose: 20 mg Documented by: Fentanyl Citrate (Fentanyl Citr 100 Mcg/2 Ml) 25 mcg IV Q4H PRN PRN Reason: Pain scale 8-10 (Severe) Last Admin: 12/09/21 19:57 Dose: 25 mcg Documented by: Glucagon (Glucagon 1 Mg/Vial) 1 mg IM 1X PRN PRN Reason: HYPOGLYCEMIA Haloperidol Lactate (Haloperidol Lact 5 Mg/Ml Inj) 2 mg IV Q4H PRN PRN Reason: AGITATION Heparin Sodium (Porcine) (Heparin 1,000 Unit/Ml Vial) 4,000 unit IV EVERY HD PRN PRN Reason: DIALYSIS CATHETER CARE Last Admin: 12/12/21 18:48 Dose: 4,000 unit Documented by: Hydrocortisone Sodium Succinate (Hydrocortisone Suc 100 Mg Inj) 50 mg IV Q12HR [facility] Last Admin: 12/12/21 20:27 Dose: 50 mg Documented by: Phenylephrine HCl 50 mg/ (Dextrose) 255 mls @ 6.12 mls/hr IV TITR [facility]; Protocol Last Titration: 12/06/21 05:00 Dose: 0 mcg/min, 0 mls/hr Documented by: Norepinephrine Bitartrate 8 mg (/ Dextrose) 508 mls @ 3.81 mls/hr IV TITR [facility]; Protocol Last Titration: 12/11/21 22:53 Dose: 0 mcg/min, 0 mls/hr Documented by: Sodium Chloride (Sodium Chloride) 250 mls @ 0 mls/hr IV .Q0M [facility] Albumin Human (Albumin 25%) 50 mls @ 100 mls/hr IV EVERY HD [facility] Last Admin: 12/12/21 15:45 Dose: 50 mls Documented by: Meropenem 500 mg/ Sodium (Chloride) 100 mls @ 200 mls/hr IV Q24H [facility] Last Admin: 12/12/21 20:28 Dose: 100 mls Documented by: Micafungin Sodium 100 mg/ (Sodium Chloride) 100 mls @ 100 mls/hr IV Q24H [facility] Last Admin: 12/12/21 14:43 Dose: 100 mls Documented by: Multivitamins 10 ml/ Amino Acids/Electrolytes/ Fat Emulsion Intravenous 2,260 mls @ 70 mls/hr IV 1700 [facility] Last Admin: 12/12/21 17:29 Dose: 2,260 mls Documented by: Vancomycin HCl 1 gm/ Sodium (Chloride) 250 mls @ 250 mls/hr IVPB AFTER EACH DIALYSIS [facility] Insulin Human Regular (Insulin -Regular Human 50 Unit/0.5 Ml Ml) 0 unit SQ Q6HR [facility]; Protocol Last Admin: 12/12/21 18:00 Dose: Not Given Documented by: Lorazepam (Lorazepam 2 Mg/Ml Vial) 2 mg IV Q2H PRN PRN Reason: SEDATION Last Admin: 12/09/21 14:48 Dose: 2 mg Documented by: Mannitol (Mannitol 25% 12.5 Gm/50 Ml Vial) 12.5 gm IV EVERY HD PRN PRN Reason: Titrate to SBP (MUST DEFINE) Microbiology Results 12/02/21 09:40 Blood - Blood Aerobic Blood Culture - Final Gram Neg Alan Klebsiella Pneumoniae 12/02/21 09:40 Blood - Blood Blood Culture Gram Stain - Final 12/02/21 09:40 Blood - Blood Anaerobic Blood Culture - Final Gram Neg Alan Klebsiella Pneumoniae 12/02/21 09:40 Blood - Blood Gram Stain - Final 12/02/21 10:35 Blood - Blood Aerobic Blood Culture - Final Gram Neg Alan Klebsiella Pneumoniae 12/02/21 10:35 Blood - Blood Blood Culture Gram Stain - Final 12/02/21 10:35 Blood - Blood Anaerobic Blood Culture - Final Gram Neg Alan Klebsiella Pneumoniae 12/02/21 10:35 Blood - Blood Gram Stain - Final Assessment/ Plan: Nephrology Limited IH/ ROS due to AMS Case reviewed with the daughter at the bedside No acute events overnight Vitals, medications, blood work and imaging reviewed in the chart. General: Unresponsive HEENT: Atraumatic Neck: Supple Respiratory: Clear to auscultation bilaterally Cardiovascular: No rubs, Edema Gastrointestinal: Soft and benign, Non-distended Musculoskeletal: No clubbing, No contractures Integumentary: No rashes, No cyanosis Neurological: Abnormal tone Greater than 30min patient care Laboratory Data (last 24 hrs) 12/02/21 10:05: PT 12.6 H, INR 1.14, APTT 24.7 12/02/21 10:05: WBC 17.10 H, Hgb 13.4, Hct 41.8, Plt Count 52 L Imagings Data: EXAM DESCRIPTION: CT - Chest Abd Pelvis Wo Con - 12/02/2021 12:49 pm CLINICAL HISTORY: AMS/Sepsis;Congestion COMPARISON: Thorax Wo Con dated 03/22/2021; Chest For Pe Angio dated 09/22/2020; Abdomen Pelvis W Contrast dated 04/25/2021 TECHNIQUE: During dynamic enhancement using 100 milliliters nonionic IV contrast, axial 5 millimeter thick images of the chest, abdomen and pelvis were obtained. Biphasic technique was utilized through the abdomen. Oral contrast was administered. All CT scans are performed using dose optimization technique as appropriate and may include automated exposure control or mA/KV adjustment according to patient size. FINDINGS: Thyromegaly again noted. Extensive baseline interstitial thickening is present in both lung sommer, more pronounced on the right. There is right hemithorax volume loss relative to the left also seen as stable. Scattered areas of nodularity in the lung parenchyma show no change in size. No endobronchial lesions seen. Increased wound glass opacities are present in the left lung field. Respiratory motion degradation decreases overall sensitivity of assessment. Increased interstitial opacification noted in the lower left lung field and in the posterior lower right lung field compared to the prior study. Cardiomegaly without pericardial effusion seen. Right shift of the heart and mediastinal structures has not changed. No pneumothorax or pleural effusion. No chest wall mass or abnormal axillary lymphadenopathy seen. Mediastinal and hilar lymph node pattern has not changed. No bulky lymphadenopathy seen. Pulmonary arteries are prominent. The liver, spleen and pancreas show no significant findings. Gallbladder is well filled and contains multiple gallstones. No biliary tree dilatation. Right kidney is larger than the left. Function cannot be assessed on a noncontrast study. A 15-18 millimeter cluster of multiple calcifications seen in the calices in parenchyma of the lower right kidney. There is moderate dilatation of the pelvis and calices present. Multiple 3-5 mm mid right renal calyx calculi are present. Approximately 2 centimeter calcification is seen layering in the dependent portion of the dilated pelvis. There is a 15 millimeter oval calcification at the right UPJ. More distally the right ureter is not abnormally dilated. A few nonobstructing calyx and parenchymal calculi noted on the left. Punctate 1-2 mm size calcifications seen in the non dilated left renal pelvis. No adrenal abnormalities. Urinary bladder is fully contracted around a Perez catheter. Uterus has a lobulated contour that may indicate presence of 1 or more fibroids. Atrophic ovaries are identified. No acute stomach or small bowel finding. Sigmoid anastomotic site shows no acute finding. Large amount of stool is present dilating the rectum to 9 cm. Sigmoid stool volume is moderate. No colon mass lesions seen. No free air, free fluid or inflammatory stranding. No hernia, mass or bulky lymphadenopathy. Disc and bone degenerative changes are present. No pathologic bone process seen. IVC filter is in place. IMPRESSION: Patient has extensive baseline interstitial fibrotic change. Additional areas of interstitial opacification and ground-glass opacification are present compared to 03/22/2021 imaging. Progressive interstitial fibrotic disease possible. Superimposed interstitial and alveolar infiltrate should be considered. There is no large new mass or consolidation. Multi stone cholelithiasis as previously seen. No biliary tree dilatation. Approximately 15 millimeter right-side UPJ calculus with moderate dilatation of the pelvis and calices. The UPJ calculus may be partially or intermittently obstructive. Pelvis and calices are only slightly larger than seen on 04/25/2021 imaging. Patient has multiple additional nonobstructing pelvis, calyx and parenchymal calculi on the right. No acute GI or process seen. There is a large stool volume dilating the rectum to 9 cm. Conclusions/Impression: LUISANA likely Oliguric ATN in the setting septic shock complicated by Etolodac. CKD II with proteinuria -No NSAIDs -Maintain BP support -HD initiated 3221017; HD today -Hepatitis negative Hyponatremia -HD as ordered Hypokalemia -Replete potassium prn HypoPO4 -Replete PO4 prn Nephrolithiasis -Consider urology evaluation for possible right UPJ obstruction Hypervolemia -Diuresis/ UF limited by hypotension DM II with CKD -RISS Severe malnutrition Hypoalbuminemia -NPO -Continue TPN -IV Albumin prn Anemia in chronic illness -Monitor H&H -Continue Retacrit MWF Acute respiratory failure with hypercapnea -Ventilatory support as ordered -Wean Oxygen as tolerated Sepsis/ Septic shock/ Klebsiella Pneumoniae Acute hepatitis likely due to shock -Continue pressor support -Continue Abx; monitor vanco level Colovaginal fistula -Surgery is following -NPO; Continue TPN Toxic metabolic encephalopathy due to sepsis -Continue abx
[2021-12-12] MEDS: NOREPINEPHRINE 8 MG in Dextrose 5%-Water 500 ML IV SCH (22:00)
--- NOTE | 2021-12-12 23:01 | CON ---
Reason For Consultation: Consultation was called because of altered mental status. History Of Present Illness: Ms. Jain is admitted to [facility], original admission date is 12/02/2021, today is the , so 11 days in the hospital. She had some history of pulmonary embo lism, on chronic anticoagulation. She was admitted with altered mental status, found to have leukocy tosis with white blood cell elevated to 17, lactic acid of 3, creatinine 2.5 and hypotensive to blood pressure 84/51. She was diagnosed with septic changes and had blood cultures growing on multiple te sts, 6 actual cultures showing Klebsiella pneumoniae in addition to methicillin-resistant Staph aureu s. She has been on IV antibiotics since her admission, which includes vancomycin, micafungin, and me ropenem. Her head CT scan 7 days after admission showed no ischemic or hemorrhagic changes and no ev idence of bleeding. The ventricles were normal in caliber and size. No hypodense areas. A repeat h ead CT scan done today is unchanged showing no loss of gupta-white distinction and essentially no abno rmalities. White blood cell count at highest was 52,000 with neutrophils 94%-95%. Currently white b lood cell count 16,000 with 93% neutrophils. She is intubated and is in the ICU. The lowest arteria l blood gas pH was 7.11 on the . In terms of her level of responsiveness, the patient has been a ble to open the eyes spontaneously. There is movement of the lower extremities with stimulation, not much detected in the upper extremities with stimulation and there was focal withdrawal. In addition , there was a minimal visual threat response noted, but no clear tracking of facial movement. Past Medical History: As noted including hypertension, diabetes, hypothyroidism, anxiety, asthma, an d gout. Past Surgical History: Tubal ligation, removal of kidney stones, thyroid cyst removal, enterocutaneo us fistula repair. Family History: Heart disease in father. Social History: No alcohol, tobacco, or IV drug use. Allergies: NO KNOWN DRUG ALLERGIES. Medications: At home: Alprazolam 1 mg 3 times daily, Celexa 20 mg daily, allopurinol 100 mg daily, folate 1 mg daily, Xarelto 20 mg daily, Lodine 400 mg twice daily, Toprol-XL 100 mg daily, Synthroid 0.2 mg daily, Diamox 250 mg daily, [place] 10/325 one every 4 hours as needed, Vantin 200 mg twice ko y, Dulera 100 mcg/5 mcg 2 puffs twice daily, Aldactone 25 mg twice daily, and prednisone 20 mg twice daily. Review of Systems: Not possible. The patient is intubated and not responding to verbal stimulation. Physical Examination: Vital Signs: Blood pressure 108/58, respiratory rate set at 14, and she is breathing over the ventil ator, pulse 82, temperature 97.8, oxygen saturation 99%, FiO2 of 30%. General: Ms. Jain is intubated in ICU. She is not on sedation. She did open the eyes spontaneou sly, move the legs with stimulation only and did not pull the arms with stimulation. She did have ed elfego on the extremities, likely third spacing related to sepsis. HEENT: Her eyes were conjugate and head. Extremities: She had a normal tone in the upper and lower extremities. Imaging: Her repeat head CT scan as noted, shows no acute ischemic or hemorrhagic changes and is unc hanged from a scan done 4 days ago. Assessment: Ms. Jain is a 66-year-old patient with toxic encephalopathy. She is on multiple anti biotics and has had sepsis treated now 11 days. The EEG result is pending. At this point, she is in serious condition and her prognosis for good recovery is poor. However, it is still possible that s he can recover some form of meaningful interaction as she gets further out from her sepsis treatment as the head CT scan shows no acute ischemic or hemorrhagic change. However, brain MRI when possible would add more to the potential for a prognosis that is more reliable. Plan: 1.We will follow up EEG. 2.When able, get MRI of the brain. 3.May consider a lumbar puncture, if possible to rule out involvement of the central nervous system. It should be noted that she is already on multiple antibiotics that can penetrate the central nervo us system and the antibiotics to cover her blood cultures proven bacteria. 4.The patient will be followed, once EEG is complete. LB/MODL Voice ID: [id number] Report ID: [id number]
[2021-12-13] MEDS: INSULIN -REGULAR HUMAN 50 UNIT/0.5 ML ML SQ SCH ×4 (00:05→17:35)
[2021-12-13] MEDS: ALBUTEROL 2.5 MG/3 ML NEB SOL NEB SCH ×2 (02:20→08:05)
[2021-12-13 05:01] LABS: Absolute Lymphocytes (CBC) 0.6 K/uL (0.7-4.9); Hematocrit 23.1 % (36.0-45.0); Lymphocytes % 4.3 % (15.3-44.8); MPV 10.2 fL (7.6-11.3); RBC Red Blood Cell Count 2.61 M/uL (3.86-4.86)
--- NOTE | 2021-12-13 07:51 | RAD REPORT ---
EXAM DESCRIPTION: Jason Single View12/13/2021 5:59 am CLINICAL HISTORY: Respiratory failure COMPARISON: December 11, 2021 FINDINGS: No significant change in extensive bilateral pulmonary opacities right greater than left. Endotracheal tube has its tip 1 centimeters above [place]. Enteric tube within the stomach IMPRESSION: No significant change in extensive bilateral pulmonary opacities right greater than lef t
[2021-12-13] MEDS ORDERED: ALBUTEROL 2.5 MG/3 ML NEB SOL NEB PRN (08:32)
--- NOTE | 2021-12-13 08:36 | P.PN ---
Subjective Date of Service: 12/13/21 Chief Complaint: Multiorgan failure, colovaginal fistula Patient is improving more responsive cooperative bonding to commands hemodynamically stable Review of Systems is unable to be obtained Physical Examination - Vital Signs Temperature: 97.1 F Blood Pressure: 103/57 Pulse: 76 Respirations: 23 Pulse Ox (%): 98 - Physical Exam General: Alert, Cooperative Respiratory: Clear to auscultation bilaterally, Crackles/rales (Crackles on the right side) Cardiovascular: Normal S1 S2, Edema Gastrointestinal: Normal bowel sounds, Soft and benign - Studies Medications List Reviewed: Yes Assessment And Plan - Current Problems (Diagnosis) (1) Septic shock Current Visit: Yes Status: Resolved Plan: Minimally responsive anemic renal failure creatinine is slightly worse patient is on FiO2 of 30% chest x-ray still shows diffuse bilateral changes repeat chest x-ray ordered patient anemic no GI bleeding continue weaning white count is declining prognosis poor patient has been off vasopressors since 9 PM last night (2) Respiratory failure Current Visit: Yes Status: Acute Qualifiers: Chronicity: acute - Plan 12/13/21 08:35 Patient is improving doing much better more alert responsive and cooperative hemodynamically stable and to wean off the ventilator chest x-ray still shows interstitial changes right greater than the left DC micafungin repeat blood cultures ordered continue with meropenem and vancomycin for now White count has declined significantly Discussed with Dr. Overton continue with TPN for now she is high risk for fungal infection we will change her over to IV Diflucan Patient is on minimal oxygen 30% we will continue to wean from the ventilator chest x-ray reviewed labs not ordered for today
[2021-12-13] MEDS: HYDROCORTISONE SUC 100 MG INJ IV SCH ×2 (09:01→21:00)
[2021-12-13] MEDS: FAMOTIDINE 20 MG/2 ML VIAL IV SCH (09:02)
[2021-12-13] MEDS: FUROSEMIDE 20 MG/ 2ML VIAL IV SCH ×2 (09:58→17:15)
--- NOTE | 2021-12-13 10:18 | P.PN ---
Date of Service: 12/13/21 Vital Signs Temp Pulse Resp BP Pulse Ox 97.1 F 98 H 25 H 141/72 H 98 12/13/21 08:38 12/13/21 09:58 12/13/21 09:15 12/13/21 09:58 12/13/21 09:15 Medications Albuterol Sulfate (Albuterol 2.5 Mg/3 Ml Neb Vidya) 2.5 mg NEB [id number] PRN PRN Reason: SHORTNESS OF BREATH Dextrose (D50w 25 Gm/50 Ml Syringe) 12.5 gm IV PRN PRN PRN Reason: HYPOGLYCEMIA Famotidine (Famotidine 20 Mg/2 Ml Vial) 20 mg IV Q24H MANDO; Protocol Last Admin: 12/13/21 09:02 Dose: 20 mg Documented by: Fentanyl Citrate (Fentanyl Citr 100 Mcg/2 Ml) 25 mcg IV Q4H PRN PRN Reason: Pain scale 8-10 (Severe) Last Admin: 12/09/21 19:57 Dose: 25 mcg Documented by: Furosemide (Furosemide 20 Mg/ 2ml Vial) 20 mg IV Q8HR MANDO Last Admin: 12/13/21 09:58 Dose: 20 mg Documented by: Glucagon (Glucagon 1 Mg/Vial) 1 mg IM 1X PRN PRN Reason: HYPOGLYCEMIA Haloperidol Lactate (Haloperidol Lact 5 Mg/Ml Inj) 2 mg IV Q4H PRN PRN Reason: AGITATION Heparin Sodium (Porcine) (Heparin 1,000 Unit/Ml Vial) 4,000 unit IV EVERY HD PRN PRN Reason: DIALYSIS CATHETER CARE Last Admin: 12/12/21 18:48 Dose: 4,000 unit Documented by: Hydrocortisone Sodium Succinate (Hydrocortisone Suc 100 Mg Inj) 25 mg IV Q12HR MANDO Last Admin: 12/13/21 09:01 Dose: 25 mg Documented by: Phenylephrine HCl 50 mg/ (Dextrose) 255 mls @ 6.12 mls/hr IV TITR MANDO; Protocol Last Titration: 12/06/21 05:00 Dose: 0 mcg/min, 0 mls/hr Documented by: Norepinephrine Bitartrate 8 mg (/ Dextrose) 508 mls @ 3.81 mls/hr IV TITR MANDO; Protocol Last Admin: 12/12/21 22:00 Dose: 0.5 mcg/min, 1.9 mls/hr Documented by: Sodium Chloride (Sodium Chloride) 250 mls @ 0 mls/hr IV .Q0M MANDO Albumin Human (Albumin 25%) 50 mls @ 100 mls/hr IV EVERY HD MANDO Last Admin: 12/12/21 15:45 Dose: 50 mls Documented by: Meropenem 500 mg/ Sodium (Chloride) 100 mls @ 200 mls/hr IV Q24H MANDO Last Admin: 12/12/21 20:28 Dose: 100 mls Documented by: Multivitamins 10 ml/ Amino Acids/Electrolytes/ Fat Emulsion Intravenous 2,260 mls @ 70 mls/hr IV 1700 MANDO Last Admin: 12/12/21 17:29 Dose: 2,260 mls Documented by: Vancomycin HCl 1 gm/ Sodium (Chloride) 250 mls @ 250 mls/hr IVPB AFTER EACH DIALYSIS MANDO Insulin Human Regular (Insulin -Regular Human 50 Unit/0.5 Ml Ml) 0 unit SQ Q6HR MANDO; Protocol Last Admin: 12/13/21 05:41 Dose: 3 unit Documented by: Lorazepam (Lorazepam 2 Mg/Ml Vial) 2 mg IV Q2H PRN PRN Reason: SEDATION Last Admin: 12/09/21 14:48 Dose: 2 mg Documented by: Mannitol (Mannitol 25% 12.5 Gm/50 Ml Vial) 12.5 gm IV EVERY HD PRN PRN Reason: Titrate to SBP (MUST DEFINE) Microbiology Results 12/02/21 09:40 Blood - Blood Aerobic Blood Culture - Final Gram Neg Alan Klebsiella Pneumoniae 12/02/21 09:40 Blood - Blood Blood Culture Gram Stain - Final 12/02/21 09:40 Blood - Blood Anaerobic Blood Culture - Final Gram Neg Alan Klebsiella Pneumoniae 12/02/21 09:40 Blood - Blood Gram Stain - Final 12/02/21 10:35 Blood - Blood Aerobic Blood Culture - Final Gram Neg Alan Klebsiella Pneumoniae 12/02/21 10:35 Blood - Blood Blood Culture Gram Stain - Final 12/02/21 10:35 Blood - Blood Anaerobic Blood Culture - Final Gram Neg Alan Klebsiella Pneumoniae 12/02/21 10:35 Blood - Blood Gram Stain - Final Assessment/ Plan: Nephrology Limited IH/ ROS due to AMS/ Intubation Case reviewed with the nurse at the bedside No acute events overnight Vitals, medications, blood work and imaging reviewed in the chart. General: More responsive HEENT: Atraumatic Neck: Supple Respiratory: Clear to auscultation bilaterally Cardiovascular: No rubs, Edema Gastrointestinal: Soft and benign, Non-distended Musculoskeletal: No clubbing, No contractures Integumentary: No rashes, No cyanosis Neurological: Abnormal tone Greater than 30min patient care Laboratory Data (last 24 hrs) 12/02/21 10:05: PT 12.6 H, INR 1.14, APTT 24.7 12/02/21 10:05: WBC 17.10 H, Hgb 13.4, Hct 41.8, Plt Count 52 L Imagings Data: EXAM DESCRIPTION: CT - Chest Abd Pelvis Wo Con - 12/02/2021 12:49 pm CLINICAL HISTORY: AMS/Sepsis;Congestion COMPARISON: Thorax Wo Con dated 03/22/2021; Chest For Pe Angio dated 09/22/2020; Abdomen Pelvis W Contrast dated 04/25/2021 TECHNIQUE: During dynamic enhancement using 100 milliliters nonionic IV contrast, axial 5 millimeter thick images of the chest, abdomen and pelvis were obtained. Biphasic technique was utilized through the abdomen. Oral contrast was administered. All CT scans are performed using dose optimization technique as appropriate and may include automated exposure control or mA/KV adjustment according to patient size. FINDINGS: Thyromegaly again noted. Extensive baseline interstitial thickening is present in both lung sommer, more pronounced on the right. There is right hemithorax volume loss relative to the left also seen as stable. Scattered areas of nodularity in the lung parenchyma show no change in size. No endobronchial lesions seen. Increased wound glass opacities are present in the left lung field. Respiratory motion degradation decreases overall sensitivity of assessment. Increased interstitial opacification noted in the lower left lung field and in the posterior lower right lung field compared to the prior study. Cardiomegaly without pericardial effusion seen. Right shift of the heart and mediastinal structures has not changed. No pneumothorax or pleural effusion. No chest wall mass or abnormal axillary lymphadenopathy seen. Mediastinal and hilar lymph node pattern has not changed. No bulky lymphadenopathy seen. Pulmonary arteries are prominent. The liver, spleen and pancreas show no significant findings. Gallbladder is well filled and contains multiple gallstones. No biliary tree dilatation. Right kidney is larger than the left. Function cannot be assessed on a noncontrast study. A 15-18 millimeter cluster of multiple calcifications seen in the calices in parenchyma of the lower right kidney. There is moderate dilatation of the pelvis and calices present. Multiple 3-5 mm mid right renal calyx calculi are present. Approximately 2 centimeter calcification is seen layering in the dependent portion of the dilated pelvis. There is a 15 millimeter oval calcification at the right UPJ. More distally the right ureter is not abnormally dilated. A few nonobstructing calyx and parenchymal calculi noted on the left. Punctate 1-2 mm size calcifications seen in the non dilated left renal pelvis. No adrenal abnormalities. Urinary bladder is fully contracted around a Perez catheter. Uterus has a lobulated contour that may indicate presence of 1 or more fibroids. Atrophic ovaries are identified. No acute stomach or small bowel finding. Sigmoid anastomotic site shows no acute finding. Large amount of stool is present dilating the rectum to 9 cm. Sigmoid stool volume is moderate. No colon mass lesions seen. No free air, free fluid or inflammatory stranding. No hernia, mass or bulky lymphadenopathy. Disc and bone degenerative changes are present. No pathologic bone process seen. IVC filter is in place. IMPRESSION: Patient has extensive baseline interstitial fibrotic change. Additional areas of interstitial opacification and ground-glass opacification are present compared to 03/22/2021 imaging. Progressive interstitial fibrotic disease possible. Superimposed interstitial and alveolar infiltrate should be considered. There is no large new mass or consolidation. Multi stone cholelithiasis as previously seen. No biliary tree dilatation. Approximately 15 millimeter right-side UPJ calculus with moderate dilatation of the pelvis and calices. The UPJ calculus may be partially or intermittently obstructive. Pelvis and calices are only slightly larger than seen on 04/25/2021 imaging. Patient has multiple additional nonobstructing pelvis, calyx and parenchymal calculi on the right. No acute GI or process seen. There is a large stool volume dilating the rectum to 9 cm. Conclusions/Impression: LUISANA likely Oliguric ATN in the setting septic shock complicated by Etolodac. CKD II with proteinuria -No NSAIDs -Maintain BP support -HD initiated [id number]; HD tomorrow -Hepatitis negative Hyponatremia -HD as ordered Hypokalemia -Replete potassium prn HypoPO4 -Replete PO4 prn Nephrolithiasis -Consider urology evaluation for possible right UPJ obstruction once more stable Hypervolemia/ Edema -Diuresis/ UF limited by hypotension -Lasix 20mg IV q8h as tolerated DM II with CKD -RISS Severe malnutrition Hypoalbuminemia -NPO -Continue TPN -IV Albumin prn Anemia in chronic illness -Monitor H&H -Continue Retacrit MWF Acute respiratory failure with hypercapnea -Ventilatory support as ordered -Wean Oxygen as tolerated Sepsis/ Septic shock/ Klebsiella Pneumoniae Acute hepatitis likely due to shock -Continue pressor support -Continue Abx; monitor vanco level Colovaginal fistula -Surgery is following -NPO; Continue TPN Toxic metabolic encephalopathy due to sepsis -Continue abx Case reviewed with Dr. Dexter Possible LTAC placement
[2021-12-13] MEDS ORDERED: ACETAMINOPHEN 500 MG TAB PO PRN (15:19)
[2021-12-13] MEDS ORDERED: VANCOMYCIN 1 GM in NA CHLORIDE 0.9% 250 ML IVPB SCH (17:00)
[2021-12-13] MEDS: AA 5%/D20W/ELECTROLYTES-TPN 2,000 ML, Lipids 20% 250 ML with MULTIVITAMINS INJ 10 ML IV SCH ×3 (17:23)
--- NOTE | 2021-12-13 21:26 | P.PN ---
Subjective Date of Service: 12/13/21 Chief Complaint: Multiorgan failure, colovaginal fistula Subjective: No new changes, Improving Physical Examination - Vital Signs Temperature: 97.5 F Blood Pressure: 114/58 Pulse: 83 Respirations: 26 Pulse Ox (%): 97 - Physical Exam General: Alert, Other (responsive) HEENT: Atraumatic, Normocephalic Neck: Supple Respiratory: Clear to auscultation bilaterally Cardiovascular: Regular rate/rhythm, Normal S1 S2 Gastrointestinal: Soft and benign - Studies Medications List Reviewed: Yes Assessment And Plan - Plan Sepsis with shock. Colovesical fistula. Resp failure with hypoxia LUISANA on Chronic kidney disease-dialysis dependent. Hypertension. Diabetes type 2. Severe anemia Plan: Now off vasopressors. Continue mechanical ventilation management as per pulmonary physician. Still very volume overloaded. Continue to monitor vital signs per ICU protocol. We will continue empiric antibiotic therapy pending review. Fistula situation being monitored by surgeon. Once patient is stable she should be able to be transferred to higher level of care. Patient presently on dialysis and is being managed by nephrology team. We will continue to monitor electrolyte profile and acid-base status. Mostly renal function to be evaluated and managed by nephrology team. 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 She has severe anemia and had 1 unit of PRC transfused during dialysis. Hb is 7.4
[2021-12-13] MEDS: Meropenem 500 MG in NA CHLORIDE 0.9% 100 ML IV SCH (21:44)
[2021-12-14] MEDS: INSULIN -REGULAR HUMAN 50 UNIT/0.5 ML ML SQ SCH ×3 (00:14→11:48)
[2021-12-14] MEDS: FUROSEMIDE 20 MG/ 2ML VIAL IV SCH ×3 (00:50→16:56)
[2021-12-14 05:29] LABS: RBC Red Blood Cell Count 2.62 M/uL (3.86-4.86)
[2021-12-14 05:30] LABS: Absolute Lymphocytes (CBC) 0.5 K/uL (0.7-4.9); Hematocrit 23.9 % (36.0-45.0); Lymphocytes % 4.2 % (15.3-44.8); MPV 9.8 fL (7.6-11.3)
[2021-12-14 06:30] VITALS: BMI 47.1
[2021-12-14 06:42] LABS: Albumin 2.2 g/dL (3.4-5.0); Bilirubin Total 0.8 mg/dL (0.2-1.0); Magnesium 1.8 mg/dL (1.8-2.4); Phosphorus 4.9 mg/dL (2.5-4.9); Potassium 3.9 mmol/L (3.5-5.1); Protein, Total 5.7 g/dL (6.4-8.2)
--- NOTE | 2021-12-14 08:06 | RAD REPORT ---
EXAM DESCRIPTION: Jason Single View4 5:32 am CLINICAL HISTORY: Respiratory failure COMPARISON: December 13, 2020 FINDINGS: Endotracheal tube has its tip 1 centimeter above the aortic arch. Enteric tube enters stomach. No significant change in extensive bilateral pulmonary opacities. IMPRESSION: No significant change in extensive bilateral pulmonary opacities
[2021-12-14] MEDS: HYDROCORTISONE SUC 100 MG INJ IV SCH (08:57)
[2021-12-14] MEDS: FAMOTIDINE 20 MG/2 ML VIAL IV SCH (08:58)
--- NOTE | 2021-12-14 09:50 | P.PN ---
Subjective Date of Service: 12/14/21 Chief Complaint: HospitalistMultiorgan failure, colovaginal fistula Patient is doing much better very alert responsive cooperative dynamically stable been on spontaneous breathing trial Review of Systems is unable to be obtained Physical Examination - Vital Signs Temperature: 97.7 F Blood Pressure: 110/64 Pulse: 76 Respirations: 24 Pulse Ox (%): 98 - Physical Exam General: Alert Neck: Supple Respiratory: Clear to auscultation bilaterally, Diminished Cardiovascular: Regular rate/rhythm, Edema - Studies Medications List Reviewed: Yes Assessment And Plan - Current Problems (Diagnosis) (1) Respiratory failure Current Visit: Yes Status: Acute Qualifiers: Chronicity: acute (2) ATN (acute tubular necrosis) Current Visit: Yes Status: Acute - Plan 12/13/21 08:35 Patient is doing much better alert cooperative tolerating spontaneous spontaneous breathing trial responding vital signs stable chest clear cardiovascular system heart sounds normal extremities edema labs reviewed renal function is improving patient still has significant interstitial change plan to extubate today discussed with Dr. Overton
[2021-12-14] MEDS: AA 5%/D20W/ELECTROLYTES-TPN 2,000 ML, Lipids 20% 250 ML with MULTIVITAMINS INJ 10 ML IV SCH ×3 (16:56)
[2021-12-14] MEDS: EPOETIN ALFA-EPBX 10,000 UNIT/ML VIAL SQ SCH (16:57)
--- NOTE | 2021-12-14 20:45 | P.PN ---
Date of Service: 12/14/21 Vital Signs Temp Pulse Resp BP Pulse Ox 97.4 F 98 H 30 H 153/85 H 97 12/14/21 12:00 12/14/21 18:00 12/14/21 18:00 12/14/21 18:00 12/14/21 18:00 Medications Albuterol Sulfate (Albuterol 2.5 Mg/3 Ml Neb Vidya) 2.5 mg NEB [id number] PRN PRN Reason: SHORTNESS OF BREATH Last Admin: 12/14/21 13:16 Dose: 2.5 mg Documented by: Dextrose (D50w 25 Gm/50 Ml Syringe) 12.5 gm IV PRN PRN PRN Reason: HYPOGLYCEMIA Famotidine (Famotidine 20 Mg/2 Ml Vial) 20 mg IV Q24H MANDO; Protocol Last Admin: 12/14/21 08:58 Dose: 20 mg Documented by: Fentanyl Citrate (Fentanyl Citr 100 Mcg/2 Ml) 25 mcg IV Q4H PRN PRN Reason: Pain scale 8-10 (Severe) Last Admin: 12/09/21 19:57 Dose: 25 mcg Documented by: Furosemide (Furosemide 20 Mg/ 2ml Vial) 20 mg IV Q8HR MANDO Last Admin: 12/14/21 16:56 Dose: 20 mg Documented by: Glucagon (Glucagon 1 Mg/Vial) 1 mg IM 1X PRN PRN Reason: HYPOGLYCEMIA Haloperidol Lactate (Haloperidol Lact 5 Mg/Ml Inj) 2 mg IV Q4H PRN PRN Reason: AGITATION Heparin Sodium (Porcine) (Heparin 1,000 Unit/Ml Vial) 4,000 unit IV EVERY HD PRN PRN Reason: DIALYSIS CATHETER CARE Last Admin: 12/12/21 18:48 Dose: 4,000 unit Documented by: Phenylephrine HCl 50 mg/ (Dextrose) 255 mls @ 6.12 mls/hr IV TITR MANDO; Protocol Last Titration: 12/06/21 05:00 Dose: 0 mcg/min, 0 mls/hr Documented by: Sodium Chloride (Sodium Chloride) 250 mls @ 0 mls/hr IV .Q0M MANDO Albumin Human (Albumin 25%) 50 mls @ 100 mls/hr IV EVERY HD MANDO Last Admin: 12/12/21 15:45 Dose: 50 mls Documented by: Meropenem 500 mg/ Sodium (Chloride) 100 mls @ 200 mls/hr IV Q24H MANDO Last Admin: 12/13/21 21:44 Dose: 100 mls Documented by: Multivitamins 10 ml/ Amino Acids/Electrolytes/ Fat Emulsion Intravenous 2,260 mls @ 70 mls/hr IV 1700 MANDO Last Admin: 12/14/21 16:56 Dose: 2,260 mls Documented by: Vancomycin HCl 1 gm/ Sodium (Chloride) 250 mls @ 250 mls/hr IVPB AFTER EACH DIALYSIS [facility] Insulin Human Regular (Insulin -Regular Human 50 Unit/0.5 Ml Ml) 0 unit SQ Q6HR [facility]; Protocol Last Admin: 12/14/21 11:48 Dose: 3 unit Documented by: Lorazepam (Lorazepam 2 Mg/Ml Vial) 2 mg IV Q2H PRN PRN Reason: SEDATION Last Admin: 12/09/21 14:48 Dose: 2 mg Documented by: Mannitol (Mannitol 25% 12.5 Gm/50 Ml Vial) 12.5 gm IV EVERY HD PRN PRN Reason: Titrate to SBP (MUST DEFINE) Microbiology Results 12/02/21 09:40 Blood - Blood Aerobic Blood Culture - Final Gram Neg Alan Klebsiella Pneumoniae 12/02/21 09:40 Blood - Blood Blood Culture Gram Stain - Final 12/02/21 09:40 Blood - Blood Anaerobic Blood Culture - Final Gram Neg Alan Klebsiella Pneumoniae 12/02/21 09:40 Blood - Blood Gram Stain - Final 12/02/21 10:35 Blood - Blood Aerobic Blood Culture - Final Gram Neg Alan Klebsiella Pneumoniae 12/02/21 10:35 Blood - Blood Blood Culture Gram Stain - Final 12/02/21 10:35 Blood - Blood Anaerobic Blood Culture - Final Gram Neg Alan Klebsiella Pneumoniae 12/02/21 10:35 Blood - Blood Gram Stain - Final Assessment/ Plan: Nephrology Limited IH/ ROS due to AMS/ Intubation Case reviewed with the nurse at the bedside No acute events overnight Vitals, medications, blood work and imaging reviewed in the chart. General: More responsive HEENT: Atraumatic Neck: Supple Respiratory: Clear to auscultation bilaterally Cardiovascular: No rubs, Edema Gastrointestinal: Soft and benign, Non-distended Musculoskeletal: No clubbing, No contractures Integumentary: No rashes, No cyanosis Neurological: Abnormal tone Greater than 30min patient care Laboratory Data (last 24 hrs) 12/02/21 10:05: PT 12.6 H, INR 1.14, APTT 24.7 12/02/21 10:05: WBC 17.10 H, Hgb 13.4, Hct 41.8, Plt Count 52 L Imagings Data: EXAM DESCRIPTION: CT - Chest Abd Pelvis Wo Con - 12/02/2021 12:49 pm CLINICAL HISTORY: AMS/Sepsis;Congestion COMPARISON: Thorax Wo Con dated 03/22/2021; Chest For Pe Angio dated 09/22/2020; Abdomen Pelvis W Contrast dated 04/25/2021 TECHNIQUE: During dynamic enhancement using 100 milliliters nonionic IV contrast, axial 5 millimeter thick images of the chest, abdomen and pelvis were obtained. Biphasic technique was utilized through the abdomen. Oral contrast was administered. All CT scans are performed using dose optimization technique as appropriate and may include automated exposure control or mA/KV adjustment according to patient size. FINDINGS: Thyromegaly again noted. Extensive baseline interstitial thickening is present in both lung sommer, more pronounced on the right. There is right hemithorax volume loss relative to the left also seen as stable. Scattered areas of nodularity in the lung parenchyma show no change in size. No endobronchial lesions seen. Increased wound glass opacities are present in the left lung field. Respiratory motion degradation decreases overall sensitivity of assessment. Increased interstitial opacification noted in the lower left lung field and in the posterior lower right lung field compared to the prior study. Cardiomegaly without pericardial effusion seen. Right shift of the heart and mediastinal structures has not changed. No pneumothorax or pleural effusion. No chest wall mass or abnormal axillary lymphadenopathy seen. Mediastinal and hilar lymph node pattern has not changed. No bulky lymphadenopathy seen. Pulmonary arteries are prominent. The liver, spleen and pancreas show no significant findings. Gallbladder is well filled and contains multiple gallstones. No biliary tree dilatation. Right kidney is larger than the left. Function cannot be assessed on a noncontrast study. A 15-18 millimeter cluster of multiple calcifications seen in the calices in parenchyma of the lower right kidney. There is moderate dilatation of the pelvis and calices present. Multiple 3-5 mm mid right renal calyx calculi are present. Approximately 2 centimeter calcification is seen layering in the dependent portion of the dilated pelvis. There is a 15 millimeter oval calcification at the right UPJ. More distally the right ureter is not abnormally dilated. A few nonobstructing calyx and parenchymal calculi noted on the left. Punctate 1-2 mm size calcifications seen in the non dilated left renal pelvis. No adrenal abnormalities. Urinary bladder is fully contracted around a Perez catheter. Uterus has a lobulated contour that may indicate presence of 1 or more fibroids. Atrophic ovaries are identified. No acute stomach or small bowel finding. Sigmoid anastomotic site shows no acute finding. Large amount of stool is present dilating the rectum to 9 cm. Sigmoid stool volume is moderate. No colon mass lesions seen. No free air, free fluid or inflammatory stranding. No hernia, mass or bulky lymphadenopathy. Disc and bone degenerative changes are present. No pathologic bone process seen. IVC filter is in place. IMPRESSION: Patient has extensive baseline interstitial fibrotic change. Additional areas of interstitial opacification and ground-glass opacification are present compared to 03/22/2021 imaging. Progressive interstitial fibrotic disease possible. Superimposed interstitial and alveolar infiltrate should be considered. There is no large new mass or consolidation. Multi stone cholelithiasis as previously seen. No biliary tree dilatation. Approximately 15 millimeter right-side UPJ calculus with moderate dilatation of the pelvis and calices. The UPJ calculus may be partially or intermittently obstructive. Pelvis and calices are only slightly larger than seen on 04/25/2021 imaging. Patient has multiple additional nonobstructing pelvis, calyx and par enchymal calculi on the right. No acute GI or process seen. There is a large stool volume dilating the rectum to 9 cm. Conclusions/Impression: LUISANA likely Oliguric ATN in the setting septic shock complicated by Etolodac. CKD II with proteinuria -No NSAIDs -Maintain BP support -HD initiated [id number]; HD today but may be able to wean off HD soon -Hepatitis negative Hyponatremia -HD as ordered Hypokalemia -Replete potassium prn HypoPO4 -Replete PO4 prn Nephrolithiasis -Consider urology evaluation for possible right UPJ obstruction once more stable Hypervolemia/ Edema -Diuresis/ UF limited by hypotension -Lasix 20mg IV q8h as tolerated DM II with CKD -RISS Severe malnutrition Hypoalbuminemia -NPO -Continue TPN -IV Albumin prn Anemia in chronic illness -Monitor H&H -Continue Retacrit MWF Acute respiratory failure with hypercapnea -Ventilatory support as ordered -Wean Oxygen as tolerated Sepsis/ Septic shock/ Klebsiella Pneumoniae Acute hepatitis likely due to shock -Continue pressor support prn -Continue Abx; monitor vanco level 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
[2021-12-14] MEDS: Meropenem 500 MG in NA CHLORIDE 0.9% 100 ML IV SCH (21:09)
[2021-12-14 21:41] VITALS: TEMP 97.5
[2021-12-14 22:23] VITALS: O2SAT 98
[2021-12-14 23:18] VITALS: BP 101/55
--- NOTE | 2021-12-15 09:05 | P.DS ---
Admission Date: 12/02/21 Discharge Date: 12/15/21 Disposition: [facility] Discharge Condition: FAIR Reason for Admission: HospitalistMultiorgan failure, colovaginal fistula - Problems (1) Respiratory failure Status: Acute Qualifiers: Chronicity: acute (2) ATN (acute tubular necrosis) Status: Acute Brief History of Present Illness: Patient is 66 years of age history of thromboembolic disease mated with altered mental status refractory shock currently on a ventilator with renal failure c omplete opacification on the right side Chest x-ray is very abnormal Hospital Course: Patient is 66 years of age was admitted in refractory septic shock and was intubated multiple vasopressors ATN was on dialysis placated length of stay and unstable for a long time was found to have presumed: Vaginal fistula she has had a history before chest x-ray shows diffuse pneumonia right worse than the left and also had bronchoscopy done secretions were suctioned from the right lung MRSA Klebsiella isolated also developed some anemia was transfused left ventricular ejection fraction was grossly normal he was undergoing dialysis his renal function improved blood cultures on December 13 were negative patient was treated with meropenem and vancomycin initially micafungin The time of transfer patient was very alert responsive cooperative and was extubated talking to the nursing staff hemodynamically stable off vasopressors Vital Signs/Physical Exam: Temp Pulse Resp BP Pulse Ox 97.5 F 104 H 38 H 101/55 L 97 12/14/21 20:00 12/14/21 23:00 12/14/21 23:00 12/14/21 23:00 12/14/21 23:00 Laboratory Data at Discharge: WBC 11.7 K/uL (4.3-10.9) H D 12/14/21 05:10 Hgb 7.5 g/dL (12.0-15.0) L 12/14/21 05:10 Hct 23.9 % (36.0-45.0) L 12/14/21 05:10 Plt Count 95 K/uL (152-406) L 12/14/21 05:10 PT 12.6 SECONDS (9.5-12.5) H 12/02/21 10:05 INR 1.14 12/02/21 10:05 APTT 24.7 SECONDS (24.3-36.9) 12/02/21 10:05 Sodium 141 mmol/L (136-145) 12/14/21 05:10 Potassium 3.9 mmol/L (3.5-5.1) 12/14/21 05:10 BUN 56 mg/dL (7-18) H 12/14/21 05:10 Creatinine 1.66 mg/dL (0.55-1.3) H 12/14/21 05:10 Glucose 235 mg/dL (74-106) H 12/14/21 05:10 Uric Acid 9.0 mg/dL (2.6-6.0) H D 12/10/21 04:35 Phosphorus 4.9 mg/dL (2.5-4.9) 12/14/21 05:10 Magnesium 1.8 mg/dL (1.8-2.4) 12/14/21 05:10 Total Bilirubin 0.8 mg/dL (0.2-1.0) 12/14/21 05:10 AST 7 U/L (15-37) L 12/14/21 05:10 ALT 31 U/L (12-78) 12/14/21 05:10 Alkaline Phosphatase 74 U/L (45-117) 12/14/21 05:10 Home Medications: ALPRAZolam [Alprazolam] 1 mg PO TID PRN 02/12/18 Citalopram [Celexa*] 20 mg PO DAILY 03/24/18 allopurinoL [Zyloprim*] 1 tab PO DAILY 03/24/18 Folic Acid 1 mg PO DAILY 04/05/20 Rivaroxaban [Xarelto*] 20 mg PO DAILY AT SUPPER #7 tablet 04/05/20 Etodolac [Lodine] 400 mg PO BID 09/22/20 Metoprolol Succinate [Toprol Xl] 100 mg PO DAILY 09/22/20 Levothyroxine [Synthroid*] 0.2 mg PO DAILYAC #60 tab 09/25/20 acetaZOLAMIDE [Diamox*] 250 mg PO DAILY #30 tab 09/25/20 Hydrocodone 10/APAP 325 [[place] 10/325*] 1 tab PO Q4HP PRN 11/27/20 Cefpodoxime Proxetil [Vantin] 200 mg PO BID 7 Days #14 tablet 11/30/20 Mometasone/Formoterol [Dulera 100 Mcg/5 Mcg Inhaler] 2 puff IH BID 30 Days #1 inhaler 11/30/20 Spironolactone [Aldactone*] 25 mg PO BID 30 Days #60 tab 11/30/20 predniSONE [Prednisone*] 20 mg PO BID 7 Days #14 tab 11/30/20 Albuterol Neb [Proventil 0.083% Neb Soln] 2.5 mg NEB [id number] PRN amp 12/14/21 Epoetin Gaurav-Epbx [Retacrit] 10,000 unit SQ M,W,F vial 12/14/21 Furosemide [Lasix 20 MG inj*] 20 mg IV Q8HR vial 12/14/21 Haloperidol Lac [Haldol*] 2 mg IV Q4H PRN vial 12/14/21 LORazepam [Ativan*] 2 mg IV Q2H PRN vial 12/14/21 Followup: Arthur Fong MD [Primary Care Provider] -
== END 2021-12-14 23:16 | DRG 870 ==
LOC: ER 09:21 → ERHOLD 15:09 → 3RD-ICU 21:56
PROVIDERS: ADMIT Internal Medicine Nephrology; ATTEND Internal Medicine Sleep Medicine
PROC: 5A1955Z Respiratory Ventilation, Greater than 96 Consecutive Hours (ICD-10-PCS; principal; 2021-12-03)
PROC: 0BH17EZ Insertion of Endotracheal Airway into Trachea, Via Natural or Artificial Opening (ICD-10-PCS; 2021-12-03)
PROC: 0B9K8ZX Drainage of Right Lung, Via Natural or Artificial Opening Endoscopic, Diagnostic (ICD-10-PCS; 2021-12-04)
PROC: 05HY33Z Insertion of Infusion Device into Upper Vein, Percutaneous Approach (ICD-10-PCS; 2021-12-04)
PROC: 5A1D70Z Performance of Urinary Filtration, Intermittent, Less than 6 Hours Per Day (ICD-10-PCS; 2021-12-05)
PROC: 06HY33Z Insertion of Infusion Device into Lower Vein, Percutaneous Approach (ICD-10-PCS; 2021-12-06)
DX: A41.02 Sepsis due to Methicillin resistant Staphylococcus aureus (principal); J15.8 Pneumonia due to other specified bacteria; R65.21 Severe sepsis with septic shock; E43 Unspecified severe protein-calorie malnutrition; G92.9 Unspecified toxic encephalopathy; N17.0 Acute kidney failure with tubular necrosis; K72.00 Acute and subacute hepatic failure without coma; J96.21 Acute and chronic respiratory failure with hypoxia; J96.22 Acute and chronic respiratory failure with hypercapnia; Z68.42 Body mass index [BMI] 45.0-49.9, adult; E87.1 Hypo-osmolality and hyponatremia; B17.9 Acute viral hepatitis, unspecified; E66.01 Morbid (severe) obesity due to excess calories; L89.152 Pressure ulcer of sacral region, stage 2; J47.9 Bronchiectasis, uncomplicated; E03.9 Hypothyroidism, unspecified; E78.5 Hyperlipidemia, unspecified; I12.9 Hypertensive chronic kidney disease with stage 1 through stage 4 chronic kidney disease, or unspecified chronic kidney disease; N18.30 Chronic kidney disease, stage 3 unspecified; E11.22 Type 2 diabetes mellitus with diabetic chronic kidney disease; M10.9 Gout, unspecified; D69.6 Thrombocytopenia, unspecified; D63.8 Anemia in other chronic diseases classified elsewhere; N20.0 Calculus of kidney; K56.41 Fecal impaction; E88.09 Other disorders of plasma-protein metabolism, not elsewhere classified; B96.1 Klebsiella pneumoniae [K. pneumoniae] as the cause of diseases classified elsewhere; Z66 Do not resuscitate; Z79.890 Hormone replacement therapy; Z79.899 Other long term (current) drug therapy; Z79.01 Long term (current) use of anticoagulants; Z86.711 Personal history of pulmonary embolism; Z74.01 Bed confinement status; Z91.19 Patient's noncompliance with other medical treatment and regimen; Z79.52 Long term (current) use of systemic steroids; Z86.718 Personal history of other venous thrombosis and embolism; Z98.51 Tubal ligation status; Z20.822 Contact with and (suspected) exposure to COVID-19; E87.6 Hypokalemia; E83.39 Other disorders of phosphorus metabolism
CPT/HCPCS: 0240U; 36415; 36430; 51702; 70450; 71045; 71250; 74018; 74176; 80048; 80053; 80202; 81003; 81015; 82140; 82550; 82570; 82805; 82947; 83605; 83735; 83880; 84100; 84132; 84145; 84156; 84300; 84439; 84443; 84484; 84550; 85014; 85018; 85025; 85610; 85730; 86317; 86704; 86850; 86900; 86901; 87040; 87070; 87077; 87086; 87088; 87102; 87186; 87205; 87340; 88108; 88305; 88312; 90935; 93005; 93306; 94002; 94003; 94640; 94667; 94668; 95816; 99285; J0692; J1170; J1630; J1644; J1720; J1940; J2185; J2248; J2370; J3010; J3370; J3480; J7030; J7040; J7050; J7060; P9016; P9035; P9047; P9100; Q5106